=== PATIENT | male | born 1930 | race Hispanic/Latino ===

== ENCOUNTER 2016-07-28 15:19 | Inpatient (IN) | payer MEDICARE, OTHER ==
[2016-07-28] MEDS ORDERED: Albuterol-Ipratrop 3 mg / 0.5 (3 ml) UD IH STA (15:45)
[2016-07-28] MEDS ORDERED: Albuterol-Ipratrop 3 mg / 0.5 (3 ml) UD ONE (15:46)
--- NOTE | 2016-07-28 15:52 | ED PDOC ---
HPI: SOB/CHF/COPD Time Seen by Provider: 07/28/16 15:34 Chief Complaint (Nursing): Shortness Of Breath Chief Complaint (Provider): Shortness Of Breath History Per: Patient History/Exam Limitations: no limitations Onset/Duration Of Symptoms: Hrs Current Symptoms Are (Timing): Still Present Additional Complaint(s): 86 y/o male with a past medical history of aortic stenosis presents to the emergency department after referred by PMD for dyspnea on exertion. Patient states he is only able to walk 2 blocks before he experiences difficulty breathing. Denies fever, cough, and chest pain. Of note, patient is being evaluated for arotic valve replacement surgery. PMD: Dr. Torrey Branch MD Service Center Technician: Dr. Kimo Santos MD Past Medical History Reviewed: Historical Data, Nursing Documentation, Vital Signs Vital Signs: Last Vital Signs Temp 97.7 F 07/28/16 15:36 Pulse 111 H 07/28/16 15:36 Resp 20 07/28/16 15:42 BP 123/64 07/28/16 16:03 Pulse Ox 90 L 07/28/16 16:00 - Medical History PMH: HTN Other PMH: Arotic Stenosis - Surgical History Surgical History: No Surg Hx - Family History Family History: States: Unknown Family Hx - Social History Current smoker - smoking cessation education provided: No Ex-Smoker (has not smoked in the last 12 months): Yes Alcohol: None Drugs: Denies - Immunization History Hx Tetanus Toxoid Vaccination: No Hx Influenza Vaccination: No Hx Pneumococcal Vaccination: No - Allergies Allergies/Adverse Reactions: Allergies Allergy/AdvReac Type Severity Reaction Status Date / Time No Known Allergies Allergy Verified 07/28/16 15:35 Review of Systems ROS Statement: Except As Marked, All Systems Reviewed And Found Negative Constitutional: Negative for: Fever Cardiovascular: Positive for: Other (Dyspnea on exertion). Negative for: Chest Pain Respiratory: Positive for: Shortness of Breath. Negative for: Cough Physical Exam - Reviewed Nursing Documentation Reviewed: Yes Vital Signs Reviewed: Yes - Physical Exam Appears: Positive for: Non-toxic, In Acute Distress ( Mild) Skin: Positive for: Normal Color, Warm, Dry Cardiovascular/Chest: Positive for: Murmur (2/6 systolic murmur radiating to back with with regular rate and rhythm) Respiratory: Positive for: Rales (rales at bases bilaterally ), Wheezing (mild end-expiratory wheeze). Negative for: Accessory Muscle Use, Respiratory Distress Gastrointestinal/Abdominal: Positive for: Normal Exam, Soft. Negative for: Tenderness Extremity: Positive for: Pedal Edema (1+ pedal edema bilaterally) Neurologic/Psych: Positive for: Alert, Oriented - Laboratory Results Result Diagrams: 07/28/16 15:45 07/28/16 15:45 - ECG O2 Sat by Pulse Oximetry: 90 (RA) Pulse Ox Interpretation: Normal Medical Decision Making Medical Decision Making: Time: 15:34 Initial impression: Dyspnea Initial plan: --Electrocardiogram Stat --B-type Natriuretic Peptide --COMP Metabolic Panel --Troponin I Stat --EKG-ED (EDNURTX) --CBC w/ differential --Chest Portable (RAD) --Duoneb 3 mL IH --Lasix 40 mg IVP --Peak Flow Pre/Post TX --Revaluation Scribe Attestation: Documented by Shayna Marti, acting as a scribe for Mika Toledo MD. Provider Scribe Attestation: All medical record entries made by the Scribe were at my direction and personally dictated by me. I have reviewed the chart and agree that the record accurately reflects my personal performance of the history, physical exam, medical decision making, and the department course for this patient. I have also personally directed, reviewed, and agree with the discharge instructions and disposition. Disposition - Clinical Impression Clinical Impression: Aortic stenosis - Patient ED Disposition Is Patient to be Admitted: Transfer of Care - Disposition Disposition: Transfer of Care Disposition Time: 17:05 Condition: FAIR Patient Signed Over To: Stephanie Rangel
[2016-07-28 16:03] LABS: BASO # 0.1 K/uL (0.0-0.2); BASO % 0.6 % (0.0-2.0); HEMATOCRIT 44.9 % (35.0-51.0); LYMPH # 0.6 K/uL (1.0-4.3); MEAN CELL VOLUME 103.1 fl (80.0-94.0); MEAN PLATELET VOLUME 8.5 fl (7.2-11.7); MONO # 0.2 K/uL (0.0-0.8); MONO % 1.8 % (0.0-10.0); NEUT # 10.7 K/uL (1.8-7.0); NEUT % 92.6 % (50.0-75.0); NRBC % 0.1 % (0.0-0.0); PLATELET COUNT 178 K/uL (130-400); WHITE BLOOD COUNT 11.6 K/uL (4.8-10.8)
[2016-07-28 16:15] LABS: ALKALINE PHOSPHATASE 82 U/L (38-126); ALT/SGPT 75 U/L (21-72); AST/SGOT 66 U/L (17-59); BILIRUBIN,TOTAL 0.7 mg/dl (0.2-1.3); BLOOD UREA NITROGEN 31 mg/dl (9-20); CALCIUM 9.4 mg/dL (8.4-10.2); CARBON DIOXIDE 26 mmol/L (22-30); CHLORIDE 101 mmol/L (98-107); GFR AFRICAN-AMERICAN > 60; GLUCOSE,RANDOM 303 mg/dL (75-110); SODIUM 141 mmol/l (132-148)
--- NOTE | 2016-07-28 16:54 | RAD ---
HISTORY: cough COMPARISON: Comparison is made to the previous study dated 06/18/2013 FINDINGS: LUNGS: No significant interval change in the lungs noted. Prominent lung markings are again seen. PLEURA: No significant pleural effusion identified, no pneumothorax apparent. CARDIOVASCULAR: The cardiac silhouette is enlarged. OSSEOUS STRUCTURES: No significant abnormalities. VISUALIZED UPPER ABDOMEN: Normal. OTHER FINDINGS: None. IMPRESSION: No radiographic evidence of pneumonia.
[2016-07-28 17:18] LABS: NEUTROPHIL 94 % (42-75); TOTAL CELLS COUNTED 100
[2016-07-28 17:21] LABS: LARGE PLATELETS PRESENT; SPHEROCYTES MODERATE
--- NOTE | 2016-07-28 17:42 | ED PDOC ---
- Laboratory Results Result Diagrams: 07/28/16 15:45 07/28/16 15:45 - ECG O2 Sat by Pulse Oximetry: 90 (RA) Medical Decision Making Medical Decision Making: Time: 1700 Patient signed out by by Dr. Toledo pending call from Dr. Santos for possible transfer to [place] for severe aortic stenosis. Per Dr Toledo, Dr Santos d/w him at 4p that he would discuss case with specialist at [place]. Pending call back for disposition. 1800 Dr Santos pagedeni concerning transfer of patient 183 [address] from office of Dr Herrera CT surgery. Requesting facesheet for possible transfer to [place]. 1999 Pending [place] bed. Pt stable at this time. Exam unchanged. Pt comfortable. 2100 Per [place] pt can not be transferred until case reviewed by hospital's case management, which will be tomorrow. Paged Dr Branch PMD and Dr Santos Cardiology. [address] Santos Cardiology and Dr Branch PMD, who requests inpatient consult with Dr Dickens as well. Scribe Attestation: Documented by Lisbeth Gomez acting as a scribe for Stephanie Rangel MD. Scribe Attestation: All medical record entries made by the Scribe were at my direction and personally dictated by me. I have reviewed the chart and agree that the record accurately reflects my personal performance of the history, physical exam, medical decision making, and the department course for this patient. I have also personally directed, reviewed, and agree with the discharge instructions and disposition. Disposition - Clinical Impression Clinical Impression: Aortic stenosis - POA Present On Arrival: None - Disposition Disposition: Admitted as In-Patient Disposition Time: 21:00 Condition: FAIR
[2016-07-28] MEDS ORDERED: Albuterol-Ipratrop 3 mg / 0.5 (3 ml) UD INH PRN (23:57)
--- NOTE | 2016-07-29 07:18 | CARD ---
APPROVED REPORT EKG Measurement Heart [id number] <Conclusion> Sinus tachycardia Cannot rule out Anterior infarct, age undetermined Abnormal ECG
[2016-07-29] MEDS ORDERED: Fluticasone-Salmeterol 500-50mcg Diskus IH SCH (09:00)
[2016-07-29] MEDS ORDERED: Albuterol 0.083% Inhal Sol (2.5 mg/3 mL) UD INH PRN (10:22)
--- NOTE | 2016-07-29 10:22 | CARD ---
APPROVED REPORT EKG Measurement Heart [id number] <Conclusion> Normal sinus rhythm Normal ECG
--- NOTE | 2016-07-29 10:38 | CP.PCM.CON ---
History of Present Illness - History of Present Illness History of Present Illness: This 86 year old male with aortic valve disease was admitted to hospital with shortness of breath. He does have a long smoking history, and stopped only one month ago. He denies any history of pneumonia or asthma and has never needed any inhalers for breathing related illness. 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 He has a relative low SpO2 since admission and becomes dyspneic with minimal exertion. His chest x-ray shows some increased broncho-vascular markings, but nothing more (poor inspiratory portable film). He denies chest pain or hemoptysis. there is no prior history of DVT or PE. Past Patient History - Past Medical History & Family History Past Medical History?: Yes - Past Social History Smoking Status: Former Smoker Chewing Tobacco Use: No Cigar Use: No Alcohol: Social Drugs: Denies Home Situation {Lives}: With Family - CARDIAC Hx Cardiac Disorders: Yes Hx Hypertension: Yes Other/Comment: aortic stenosis - PULMONARY Hx Respiratory Disorders: No - NEUROLOGICAL Hx Neurological Disorder: No - HEENT Hx HEENT Problems: No - RENAL Hx Chronic Kidney Disease: No - ENDOCRINE/METABOLIC Hx Endocrine Disorders: No - HEMATOLOGICAL/ONCOLOGICAL Hx Blood Disorders: No - INTEGUMENTARY Hx Dermatological Problems: No - MUSCULOSKELETAL/RHEUMATOLOGICAL Hx Falls: No Hx Gout: Yes - GASTROINTESTINAL Hx Gastrointestinal Disorders: No - GENITOURINARY/GYNECOLOGICAL Hx Genitourinary Disorders: No - PSYCHIATRIC Hx Psychophysiologic Disorder: No Hx Substance Use: No - SURGICAL HISTORY Hx Surgeries: No - ANESTHESIA Hx Anesthesia: No Meds Allergies/Adverse Reactions: Allergies Allergy/AdvReac Type Severity Reaction Status Date / Time No Known Allergies Allergy Verified 07/28/16 15:35 - Medications Medications: Current Medications Albuterol Sulfate (Albuterol 0.083% Inhal Olivia (2.5 Mg/3 Ml) Ud) 2.5 mg INH RQ4 PRN PRN Reason: Shortness of Breath Allopurinol (Zyloprim) 100 mg PO DAILY [facility] Last Admin: 07/29/16 08:40 Dose: 100 mg Amlodipine Besylate (Norvasc) 5 mg PO DAILY [facility] Last Admin: 07/29/16 08:40 Dose: 5 mg Enalapril Maleate (Vasotec) 5 mg PO DAILY [facility] Last Admin: 07/29/16 08:40 Dose: 5 mg Fluticasone/Salmeterol (Advair Diskus 500/50) 1 puff IH Q12 [facility] Last Admin: 07/29/16 08:40 Dose: 1 puff Physical Exam - Additional Findings Additional findings: Overweight male lying almost flat in bed. Pharynx is pink and mucous membranes are moist. No exudates. Conjunctivae are pink and non-icteric. Neck is supple and trachea midline. No visible JVD. No palpable lymphadenopathy. No dependant edema, no cyanosis or clubbing. No calf tenderness or palpable venous cords. No dullness on chest percussion, no subcut emphysema. Breath sounds are diminished bilaterally w/o audible wheezing. Few scattered dependant rhonchi and dry rales are noted. No bronchial breath sounds or egophony. Heart sounds are slightly distant, rhythm is regular, loud ANGELA at base radiating to the carotids. Abdomen is obese and non-tender with normal BS. Results - Vital Signs Recent Vital Signs: Last Vital Signs Temp 98.3 F 07/29/16 08:06 Pulse 85 07/29/16 10:00 Resp 18 07/29/16 08:06 BP 157/64 H 07/29/16 08:40 Pulse Ox 94 L 07/29/16 08:06 - Labs Result Diagrams: 07/28/16 15:45 07/28/16 15:45 Labs: Laboratory Results - last 24 hr 07/29/16 05:35 Troponin I 0.0270 Assessment & Plan (1) Hypoxemia Assessment and Plan: Very likely a manifestation of cigarette related lung disease. An ABG has been requested to evaluate the degree of hypoxia. Needs some follow up with PFT and potentially treatment with inhalers. For the present time he is on supplemental oxygen and offers no complaints. He needs to begin incentive spirometry and has been started on nebulizer treatments. Status: Acute Priority: High (2) Aortic stenosis Status: Chronic Priority: High - Date & Time Date: 07/29/16 Time: 11:01
[2016-07-29] MEDS ORDERED: Levalbuterol 0.63 MG/3 ML Inhal Soln UD INH PRN (11:08)
[2016-07-29] MEDS: Levalbuterol 0.63 MG/3 ML Inhal Soln UD INH SCH ×3 (12:00→23:42)
[2016-07-29 12:17] LABS: ABG ALLEN TEST YES; ARTERIAL BLOOD FLOW 3; ARTERIAL BLOOD GAS HCO3 31.3 mmol/L (21-28); ARTERIAL BLOOD GAS MODE NC; ARTERIAL BLOOD GAS O2 CAPACITY 19.5 mL/dL (16-24); ARTERIAL BLOOD GAS O2 CONTENT 18.8 ML/dL (15-23); ARTERIAL BLOOD GAS PH 7.43 (7.35-7.45); ARTERIAL BLOOD GAS PO2 65 mm/Hg (80-100); ARTERIAL BLOOD HGB O2 SAT 92.7 % (95.0-98.0); HHB 3.4 % (0.0-5.0); METHEMOGLOBIN 1.9 % (0.0-3.0)
[2016-07-29] MEDS ORDERED: Levalbuterol 0.63 MG/3 ML Inhal Soln UD INH SCH (16:00)
--- NOTE | 2016-07-29 19:25 | CP.PCM.PN ---
Subjective - Date & Time of Evaluation Date of Evaluation: 07/29/16 Time of Evaluation: 22:22 - Subjective Subjective: 86 yo with hx anc COPD admiited for SOB. 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 Objective - Vital Signs/Intake and Output Vital Signs (last 24 hours): Temp Pulse Resp BP Pulse Ox 98.3 F 80 20 119/67 95 07/29/16 18:55 07/29/16 18:55 07/29/16 18:55 07/29/16 18:55 07/29/16 18:55 - Medications Medications: Current Medications Albuterol Sulfate (Albuterol 0.083% Inhal Olivia (2.5 Mg/3 Ml) Ud) 2.5 mg INH RQ4 PRN PRN Reason: Shortness of Breath Allopurinol (Zyloprim) 100 mg PO DAILY [facility] Last Admin: 07/29/16 08:40 Dose: 100 mg Amlodipine Besylate (Norvasc) 5 mg PO DAILY [facility] Last Admin: 07/29/16 08:40 Dose: 5 mg Enalapril Maleate (Vasotec) 5 mg PO DAILY [facility] Last Admin: 07/29/16 08:40 Dose: 5 mg Levalbuterol HCl (Xopenex) 0.63 mg INH RQ4 PRN PRN Reason: Shortness of Breath Levalbuterol HCl (Xopenex) 0.63 mg INH RQ8 [facility] Last Admin: 07/29/16 15:44 Dose: 0.63 mg - Labs Labs: PT 11.5 SECONDS (9.6-11.2) H 07/28/16 16:50 INR 1.11 (0.92-1.08) H 07/28/16 16:50 - Respiratory Exam Respiratory Exam: NORMAL BREATHING PATTERN - Cardiovascular Exam Cardiovascular Exam: REGULAR RHYTHM - GI/Abdominal Exam GI & Abdominal Exam: Normal Bowel Sounds Assessment and Plan - Assessment and Plan (Free Text) Assessment: SOB COPD Cardiology Pulmonary Transfer to [facility]
[2016-07-30] MEDS: Levalbuterol 0.63 MG/3 ML Inhal Soln UD INH SCH ×2 (08:17→16:02)
--- NOTE | 2016-07-30 09:42 | CP.PCM.PN ---
Subjective - Date & Time of Evaluation Date of Evaluation: 07/30/16 Time of Evaluation: 09:37 - Subjective Subjective: Remains in tele, awaiting a bed at [facility]. Offers no new complaints. Has continued MORALES, but able to use bedside cammode without difficulty. ABG yesterday shows moderate hypoxemia and mild hypercapnia. Presently on levalbuterol (low dose) and will not add other medications prior to potential cardiac surgery. No audible wheezing , few sonorous rhonchi, diminished breath sounds bilaterally. No cyanosis or dependant edema. Will need PFT and likely LABA/LAMA afterwards. Incentive spirometry requested. Objective - Vital Signs/Intake and Output Vital Signs (last 24 hours): Temp Pulse Resp BP Pulse Ox 98.1 F 76 20 143/77 95 07/30/16 08:25 07/30/16 08:34 07/30/16 08:25 07/30/16 08:34 07/30/16 08:25 - Medications Medications: Current Medications Allopurinol (Zyloprim) 100 mg PO DAILY [facility] Last Admin: 07/30/16 08:34 Dose: 100 mg Amlodipine Besylate (Norvasc) 5 mg PO DAILY [facility] Last Admin: 07/30/16 08:34 Dose: 5 mg Enalapril Maleate (Vasotec) 5 mg PO DAILY [facility] Last Admin: 07/30/16 08:34 Dose: 5 mg Levalbuterol HCl (Xopenex) 0.63 mg INH RQ4 PRN PRN Reason: Shortness of Breath Levalbuterol HCl (Xopenex) 0.63 mg INH RQ8 [facility] Last Admin: 07/30/16 08:17 Dose: 0.63 mg - Labs Labs: PT 11.5 SECONDS (9.6-11.2) H 07/28/16 16:50 INR 1.11 (0.92-1.08) H 07/28/16 16:50 Assessment and Plan (1) Hypoxemia Status: Acute (2) Aortic stenosis Status: Chronic
--- NOTE | 2016-07-30 15:23 | PQF GENQUE ---
Dr. Bunny Joseph, COPD Exacerbation versus Stable? OR: Other explanation of clinical finding H and P: pending ER note: Respiratory: Positive for: Rales (rales at bases bilaterally ), Wheezing (mild end expiratory wheeze). 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 Needs some follow up with PFT and potentially treatment with inhalers. For the present time he is on supplemental oxygen to begin incentive spirometry ;started on nebulizer treatments. Status: Acute Priority: High (2) Aortic stenosis Status: Chronic Priority: High /: Pulmonary progress note note:Has continued MORALES, but able to use bedside commode without difficulty. ABG yesterday shows moderate hypoxemia and mild hypercapnia. This form is a permanent part of the medical record Clarification of your documentation is requested to better reflect the severity of illness and intensity of treatment of your patient. Indicators present [] Specify: [] [] Specify: [] [] Specify: [] [] Specify: [] Location in the medical record that reflects the above clinical findings: [] Treatment Provided: [] PHYSICIAN'S RESPONSE Based on your medical judgment of the clinical indicators outlined above please clarify the following: [] Practitioner response [] If unable to determine, please check the box, sign and date. Present On Admission (POA) Indicator: [] Present at the time of admission [] Not present at the time of admission [] Clinically Undetermined In responding to this query, please exercise your independent professional judgment. The fact that a question is asked does not imply that any particular answer is desired or expected. Thank you for your clarification on this documentation. If you have any questions please call:[ ] * Thank you, [ ] mobility architect manager CALLI
--- NOTE | 2016-07-30 18:41 | CP.PCM.PN ---
Subjective - Date & Time of Evaluation Date of Evaluation: 07/30/16 Time of Evaluation: 22:22 - Subjective Subjective: Above noted Objective - Vital Signs/Intake and Output Vital Signs (last 24 hours): Temp Pulse Resp BP Pulse Ox 98.0 F 63 20 142/70 95 07/30/16 15:50 07/30/16 15:50 07/30/16 15:50 07/30/16 15:50 07/30/16 15:50 - Medications Medications: Current Medications Allopurinol (Zyloprim) 100 mg PO DAILY [facility] Last Admin: 07/30/16 08:34 Dose: 100 mg Amlodipine Besylate (Norvasc) 5 mg PO DAILY [facility] Last Admin: 07/30/16 08:34 Dose: 5 mg Enalapril Maleate (Vasotec) 5 mg PO DAILY [facility] Last Admin: 07/30/16 08:34 Dose: 5 mg Levalbuterol HCl (Xopenex) 0.63 mg INH RQ4 PRN PRN Reason: Shortness of Breath Levalbuterol HCl (Xopenex) 0.63 mg INH RQ8 [facility] Last Admin: 07/30/16 16:02 Dose: 0.63 mg - Labs Labs: PT 11.5 SECONDS (9.6-11.2) H 07/28/16 16:50 INR 1.11 (0.92-1.08) H 07/28/16 16:50 - Respiratory Exam Respiratory Exam: NORMAL BREATHING PATTERN - Cardiovascular Exam Cardiovascular Exam: REGULAR RHYTHM - GI/Abdominal Exam GI & Abdominal Exam: Normal Bowel Sounds Assessment and Plan - Assessment and Plan (Free Text) Assessment: SOB Aortic Stenosis COPD Cardiology Pulmonary Transfer to [facility] Elevated LFT,s MCV Liver dx??
[2016-07-30 19:49] VITALS: BP 144/70; PULSE 71; RESP 18; TEMP 97.9; O2SAT 94
[2016-07-30 20:35] VITALS: BMI 31.7
--- NOTE | 2016-08-19 19:44 | CP.PCM.HP ---
History of Present Illness - History of Present Illness History of Present Illness: 86 yo with hx of COPD and severe admitted for SOB Present on Admission - Present on Admission Any Indicators Present on Admission: No Past Patient History - Past Medical History & Family History Past Medical History?: Yes - Past Social History Smoking Status: Former Smoker Chewing Tobacco Use: No Cigar Use: No Alcohol: Social Drugs: Denies Home Situation {Lives}: With Family - CARDIAC Hx Cardiac Disorders: Yes Hx Hypertension: Yes Other/Comment: aortic stenosis - PULMONARY Hx Respiratory Disorders: No - NEUROLOGICAL Hx Neurological Disorder: No - HEENT Hx HEENT Problems: No - RENAL Hx Chronic Kidney Disease: No - ENDOCRINE/METABOLIC Hx Endocrine Disorders: No - HEMATOLOGICAL/ONCOLOGICAL Hx Blood Disorders: No - INTEGUMENTARY Hx Dermatological Problems: No - MUSCULOSKELETAL/RHEUMATOLOGICAL Hx Falls: No Hx Gout: Yes - GASTROINTESTINAL Hx Gastrointestinal Disorders: No - GENITOURINARY/GYNECOLOGICAL Hx Genitourinary Disorders: No - PSYCHIATRIC Hx Psychophysiologic Disorder: No Hx Substance Use: No - SURGICAL HISTORY Hx Surgeries: No - ANESTHESIA Hx Anesthesia: No Meds Allergies/Adverse Reactions: Allergies Allergy/AdvReac Type Severity Reaction Status Date / Time No Known Allergies Allergy Verified 07/28/16 15:35 Physical Exam - Respiratory Exam Respiratory Exam: NORMAL BREATHING PATTERN - Cardiovascular Exam Cardiovascular Exam: REGULAR RHYTHM - GI/Abdominal Exam GI & Abdominal Exam: Normal Bowel Sounds Results - Vital Signs Recent Vital Signs: Last Vital Signs Temp 97.9 F 07/30/16 19:48 Pulse 71 07/30/16 19:48 Resp 18 07/30/16 19:48 BP 144/70 07/30/16 19:48 Pulse Ox 94 L 07/30/16 19:48 - Labs Result Diagrams: 07/28/16 15:45 07/28/16 15:45 Assessment & Plan - Assessment and Plan (Free Text) Assessment: SOB COPD Cardiology Pulmonary Transfer to [facility] - Date & Time Date: 07/29/16 Time: 22:22
== END 2016-07-30 21:25 | disposition short-term general hospital (02) | DRG 307 ==
LOC: H.ER 15:19 → H.ERHOLD 21:11 → H.TEL 23:07
PROVIDERS: ADMIT Family Medicine Geriatric Medicine; ATTEND Family Medicine Geriatric Medicine
DX: I35.0 Nonrheumatic aortic (valve) stenosis (principal); J44.1 Chronic obstructive pulmonary disease with (acute) exacerbation; I10 Essential (primary) hypertension; R09.02 Hypoxemia; R79.89 Other specified abnormal findings of blood chemistry; Z87.891 Personal history of nicotine dependence; Z77.090 Contact with and (suspected) exposure to asbestos

== ENCOUNTER 2017-04-27 10:00 | Inpatient (IN) | payer MEDICARE, OTHER ==
[2017-04-27 10:02] VITALS: BMI 30.9
--- NOTE | 2017-04-27 10:56 | ED PDOC ---
Lower Extremity Pain/Injury Time Seen by Provider: 04/27/17 10:54 Chief Complaint (Nursing): Lower Extremity Problem/Injury Chief Complaint (Provider): leg pain History Per: Patient (87 y/o male here with bilateral lower extremity tenderness x 2 months worse with walking and lifting feet up. Patient states he has to sleep in chair due to pain. Seen by PMD Dr. Joseph. Sent to physical therapy without improvemnet. Requests medication for pain.) Past Medical History Reviewed: Historical Data, Nursing Documentation, Vital Signs Vital Signs: Last Vital Signs Temp 97.9 F 04/27/17 10:02 Pulse 90 04/27/17 10:02 Resp 17 04/27/17 10:02 BP 126/56 L 04/27/17 10:02 Pulse Ox 96 04/27/17 10:02 - Medical History PMH: HTN Denies: Chronic Kidney Disease - Family History Family History: States: Unknown Family Hx - Immunization History Hx Tetanus Toxoid Vaccination: No Hx Influenza Vaccination: No Hx Pneumococcal Vaccination: No - Home Medications Home Medications: Ambulatory Orders Medication Instructions Recorded Enalapril Maleate [Vasotec] 5 mg PO DAILY 07/28/16 Allopurinol [Zyloprim] 300 mg PO DAILY 04/27/17 Aspirin [Ecotrin] 81 mg PO DAILY 04/27/17 Atorvastatin [Lipitor] 20 mg PO QPM 04/27/17 Furosemide [Lasix] 20 mg PO DAILY 04/27/17 Metoprolol Tartrate [Lopressor] 25 mg PO Q12H 04/27/17 amLODIPine [Norvasc] 10 mg PO DAILY 04/27/17 - Allergies Allergies/Adverse Reactions: Allergies Allergy/AdvReac Type Severity Reaction Status Date / Time No Known Allergies Allergy Verified 07/28/16 15:35 Review of Systems ROS Statement: Except As Marked, All Systems Reviewed And Found Negative Physical Exam - Reviewed Nursing Documentation Reviewed: Yes Vital Signs Reviewed: Yes - Physical Exam Appears: Positive for: Well, Non-toxic, No Acute Distress Head Exam: Positive for: ATRAUMATIC, NORMAL INSPECTION, NORMOCEPHALIC Skin: Positive for: Normal Color, Warm, DRY Eye Exam: Positive for: EOMI, Normal appearance, PERRL ENT: Positive for: Normal ENT Inspection Neck: Positive for: Normal, Painless ROM Cardiovascular/Chest: Positive for: Regular Rate, Rhythm Respiratory: Positive for: CNT, Normal Breath Sounds Gastrointestinal/Abdominal: Positive for: Normal Exam, Bowel Sounds, Soft Back: Positive for: Normal Inspection Extremity: Positive for: Normal ROM, Other (warm lower extremity. 1+ DP bilaterally noted.) Neurologic/Psych: Positive for: Alert, Oriented - Laboratory Results Result Diagrams: 04/27/17 14:10 04/27/17 14:10 - ECG ECG Rhythm: Positive for: Sinus Rhythm (nsr 97bpm wiht 1st deg AV block; LBBB new compared to old EKG on file.) O2 Sat by Pulse Oximetry: 96 - Progress ED Course And Treament: D/W DR. JOSEPH. DUPLEX WNL ARTERIAL DOPPLER OBTAINED: PENDING SEEN BY DR. SOTCK. WILL OBTAIN EKG/CXR/BLOODWORK FOR EVALUATION OF LOWER EXTREMITY EDEMA cxr: nad EKG discussed wiht Dr. Santos who states patient has old EKG in his office with LBBB noted. d/w Dr. Joseph Will admit for further evaluation of leukocytosis and intractable leg pain Disposition - Clinical Impression Clinical Impression: Leg pain, Leukocytosis - Patient ED Disposition Is Patient to be Admitted: Yes - Disposition Disposition Time: 16:32 Condition: FAIR Forms: [employer] ([place]ian) - Pt Status Changed To: Hospital Disposition Of: Observation
--- NOTE | 2017-04-27 12:02 | US ---
PROCEDURE: Bilateral lower extremity venous duplex Doppler. HISTORY: r/o dvt COMPARISON: None available. TECHNIQUE: Bilateral common femoral, superficial femoral, popliteal and posterior tibial veins were evaluated. Flow was assessed with color Doppler, compressibility, assessment of phasic flow and augmentation response. FINDINGS: COMMON FEMORAL VEIN: Right CFV: Unremarkable. Left CFV: Unremarkable. SUPERFICIAL FEMORAL VEIN: Right SFV: Unremarkable. Left SFV: Unremarkable. POPLITEAL VEIN: Right Popliteal: Unremarkable. Left Popliteal: Unremarkable. POSTERIOR TIBIAL VEIN: Right PTV: Unremarkable. Left PTV: Unremarkable. OTHER FINDINGS: None. IMPRESSION: No evidence of deep venous thrombosis.
[2017-04-27 14:14] LABS: BASO # 0.1 K/uL (0.0-0.2); BASO % 0.8 % (0.0-2.0); EOS # 0.1 K/uL (0.0-0.7); EOS % 0.9 % (0.0-4.0); HEMOGLOBIN 14.2 g/dL (12.0-18.0); LYMPH # 2.2 K/uL (1.0-4.3); LYMPH % 14.5 % (20.0-40.0); MEAN CELL VOLUME 99.7 fl (80.0-94.0); MEAN CORPUSCULAR HEMOGLOBIN 33.3 pg (27.0-31.0); MEAN CORPUSCULAR HGB CONC 33.4 g/dL (33.0-37.0); MEAN PLATELET VOLUME 7.7 fl (7.2-11.7); MONO # 1.9 K/uL (0.0-0.8); MONO % 12.2 % (0.0-10.0); NEUT # 11.1 K/uL (1.8-7.0); NEUT % 71.6 % (50.0-75.0); NRBC % 0.1 % (0.0-0.0); RBC 4.27 Mil/uL (4.40-5.90); RED CELL DISTRIBUTION WIDTH 14.5 % (11.5-14.5); WHITE BLOOD COUNT 15.5 K/uL (4.8-10.8)
[2017-04-27 14:45] LABS: ALB/GLOB RATIO 1.3 (1.0-2.1); ALBUMIN 4.9 g/dL (3.5-5.0); ALT/SGPT 27 U/L (21-72); AST/SGOT 37 U/L (17-59); BLOOD UREA NITROGEN 18 mg/dl (9-20); CALCIUM 9.8 mg/dL (8.4-10.2); GFR AFRICAN-AMERICAN > 60; GFR NON-AFRICAN AMERICAN > 60
[2017-04-27 14:56] LABS: B-TYPE NATRIURETIC PEPTIDE 163 pg/ml (0-900)
--- NOTE | 2017-04-27 15:15 | RAD ---
HISTORY: ROUTINE COMPARISON: 07/28/2016. FINDINGS: LUNGS: No active pulmonary disease. PLEURA: No significant pleural effusion identified, no pneumothorax apparent. CARDIOVASCULAR: Cardiomegaly. No evidence of acute, significant cardiovascular disease. OSSEOUS STRUCTURES: No significant abnormalities. VISUALIZED UPPER ABDOMEN: Normal. OTHER FINDINGS: None. IMPRESSION: No active disease. No significant interval change compared to the prior examination(s).
--- NOTE | 2017-04-27 16:00 | VASCLAB ---
STUDY DESCRIPTION: HISTORY: intermittent claudication PRIORS: None. TECHNIQUE: Pulse volume recording waveforms and segmental pressures of bilateral lower extremities at multiple levels were obtained. Ankle Brachial Indices (ABIs) were calculated. Report prepared by Gunnar Clark RDMS,STONE,CANDIDO ROCHA RIGHT LOWER EXTREMITY: * Brachial artery: Pressure - 126 mmHg. * High thigh: Pressure - 166 mmHg: Ratio - 1.30: PVR waveform - Pulsatile * Low thigh: Pressure - mmHg: Ratio - PVR waveform: Pulsatile * Calf: Pressure - 213 mmHg: Ratio - 1.66 PVR waveform: Pulsatile * Posterior tibial Artery: Pressure - 222 mmHg: Ratio - 1.73 PVR waveform: Pulsatile * Dorsalis pedis Artery: Pressure - 184 mmHg: Ratio - 1.44 PVR waveform: Pulsatile * Great toe: Pressure - mmHg: Ratio - PVR waveform: Pulsatile Ankle brachial index (PAGE): 1.73 LEFT LOWER EXTREMITY: * Brachial artery: Pressure - 128 mmHg. * High thigh: Pressure - 163 mmHg: Ratio - 1.27: PVR waveform - Pulsatile * Low thigh: Pressure - mmHg: Ratio - PVR waveform: Pulsatile * Calf: Pressure - 210 mmHg: Ratio - 1.64 PVR waveform: Pulsatile * Posterior tibial Artery: Pressure - 236 mmHg: Ratio - 1.84 PVR waveform: Pulsatile * Dorsalis pedis Artery: Pressure - 223 mmHg: Ratio - 1.74 PVR waveform: Pulsatile * Great toe: Pressure - mmHg: Ratio - PVR waveform: Pulsatile Ankle brachial index (PAGE): 1.84 IMPRESSION: Elevated pressures bilaterally render ABIs unreliable.
--- NOTE | 2017-04-27 20:39 | CP.PCM.PN ---
Subjective - Date & Time of Evaluation Date of Evaluation: 04/27/17 Time of Evaluation: 22:22 - Subjective Subjective: 87 yo presented to ER with low ext pain Objective - Vital Signs/Intake and Output Vital Signs (last 24 hours): Temp Pulse Resp BP Pulse Ox 98.2 F 96 H 18 122/66 96 04/27/17 19:07 04/27/17 19:07 04/27/17 19:07 04/27/17 19:07 04/27/17 19:07 - Labs Labs: 04/27/17 14:10 04/27/17 14:10 - Respiratory Exam Respiratory Exam: NORMAL BREATHING PATTERN - Cardiovascular Exam Cardiovascular Exam: REGULAR RHYTHM - GI/Abdominal Exam GI & Abdominal Exam: Normal Bowel Sounds Assessment and Plan - Assessment and Plan (Free Text) Assessment: Low ext pain venous doppler
[2017-04-27] MEDS ORDERED: Enoxaparin 60 mg Syringe SC ONE (22:36)
[2017-04-28] MEDS ORDERED: Albuterol-Ipratrop 3 mg / 0.5 (3 ml) UD INH STA (00:53)
[2017-04-28 05:47] LABS: BASO # 0.1 K/uL (0.0-0.2); BASO % 0.8 % (0.0-2.0); EOS # 0.1 K/uL (0.0-0.7); EOS % 0.6 % (0.0-4.0); LYMPH # 1.7 K/uL (1.0-4.3); LYMPH % 10.9 % (20.0-40.0); MEAN CELL VOLUME 100.5 fl (80.0-94.0); MEAN CORPUSCULAR HEMOGLOBIN 33.2 pg (27.0-31.0); MEAN CORPUSCULAR HGB CONC 33.1 g/dL (33.0-37.0); MONO # 2.3 K/uL (0.0-0.8); MONO % 14.5 % (0.0-10.0); NEUT # 11.6 K/uL (1.8-7.0); NEUT % 73.2 % (50.0-75.0); NRBC % 0.1 % (0.0-0.0); RBC 3.92 Mil/uL (4.40-5.90); RED CELL DISTRIBUTION WIDTH 14.5 % (11.5-14.5); WHITE BLOOD COUNT 15.8 K/uL (4.8-10.8)
[2017-04-28 05:55] LABS: BLOOD UREA NITROGEN 17 mg/dl (9-20); CALCIUM 9.2 mg/dL (8.4-10.2); GFR AFRICAN-AMERICAN > 60; GFR NON-AFRICAN AMERICAN > 60
[2017-04-28] MEDS ORDERED: Sodium Chloride 3% for Inhalation 4 ML VIAL.NEB IH PRN (06:40)
[2017-04-28] MEDS ORDERED: Albuterol-Ipratrop 3 mg / 0.5 (3 ml) UD INH PRN (07:27)
--- NOTE | 2017-04-28 08:41 | CARD ---
APPROVED REPORT EKG Measurement Heart [id number] <Conclusion> Sinus rhythm with 1st degree AV block Left bundle branch block Abnormal ECG
--- NOTE | 2017-04-28 11:16 | CP.PCM.CON ---
History of Present Illness - History of Present Illness History of Present Illness: This 87 year old [place] male was admitted because of painful swelling of both lower extremities. He has also had what seems to be a chronic cough, but he denies any specific prior lung disease. He did smoke heavily for many years and also [place] with exposures to many different types of dust but he denies any dyspnea on exertion PND, chest discomfort or hemoptysis. He denies any prior episode of pneumonia or childhood asthma. The patient states that his lower extremity swelling has been present for approximately 3-4 months. 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 - PULMONARY Hx Respiratory Disorders: No Other/Comment: Ex smoker, quit 2 years ago - NEUROLOGICAL Hx Neurological Disorder: No - HEENT Hx HEENT Problems: No - RENAL Hx Chronic Kidney Disease: No - ENDOCRINE/METABOLIC Hx Endocrine Disorders: No - HEMATOLOGICAL/ONCOLOGICAL Hx Blood Disorders: No - INTEGUMENTARY Hx Dermatological Problems: No - MUSCULOSKELETAL/RHEUMATOLOGICAL Hx Falls: No Hx Gout: Yes - GASTROINTESTINAL Hx Gastrointestinal Disorders: No - GENITOURINARY/GYNECOLOGICAL Hx Genitourinary Disorders: No - PSYCHIATRIC Hx Psychophysiologic Disorder: No Hx Substance Use: No - SURGICAL HISTORY Hx Surgeries: No - ANESTHESIA Hx Anesthesia: No Meds Allergies/Adverse Reactions: Allergies Allergy/AdvReac Type Severity Reaction Status Date / Time No Known Allergies Allergy Verified 07/28/16 15:35 - Medications Medications: Current Medications Acetaminophen (Tylenol 325mg Tab) 650 mg PO Q6 PRN PRN Reason: Pain, Mild (1-3) Albuterol/Ipratropium (Duoneb 3 Mg/0.5 Mg (3 Ml) Ud) 3 ml INH RQ4 PRN PRN Reason: Shortness of Breath Allopurinol (Zyloprim) 300 mg PO DAILY [facility] Last Admin: 04/28/17 09:50 Dose: 300 mg Amlodipine Besylate (Norvasc) 10 mg PO DAILY [facility] Last Admin: 04/28/17 09:51 Dose: 10 mg Aspirin (Ecotrin) 81 mg PO DAILY [facility] Last Admin: 04/28/17 09:51 Dose: 81 mg Atorvastatin Calcium (Lipitor) 20 mg PO QPM [facility] Enalapril Maleate (Vasotec) 5 mg PO DAILY [facility] Last Admin: 04/28/17 09:52 Dose: 5 mg Enoxaparin Sodium (Lovenox) 40 mg SC DAILY [facility] PRN Reason: Protocol Furosemide (Lasix) 20 mg PO DAILY [facility] Last Admin: 04/28/17 09:51 Dose: 20 mg Metoprolol Tartrate (Lopressor) 25 mg PO Q12H [facility] Last Admin: 04/28/17 00:15 Dose: 25 mg Tramadol HCl (Ultram) 50 mg PO BID PRN PRN Reason: Pain, moderate (4-7) Last Admin: 04/27/17 23:18 Dose: 50 mg Physical Exam - Additional Findings Additional findings: Elderly, overweight male who appears to be in no acute distress. He is complaining of painful swelling of both lower extremities. There is noted to be some chronic hyperpigmentation of both lower extremities from mid calf to ankle. 2+ edema which is painful on compression of both lower extremities again from mid calf to the ankle. No increased warmth. Moderate erythema bilaterally of lower extremities. No palpable lymphadenopathy. Congested, nonproductive cough is noted during the examination. The neck is supple and trachea is midline. No visible neck vein distention. Carotid impulse appears normal and there is no bruit. No palpable thyromegaly. Pharynx is pink and mucous membranes are moist. No exudate. No dullness on chest percussion. Equal expansion. Breath sounds are diminished bilaterally. Sonorous rhonchi are heard in dependent regions of both lungs. No audible wheezing. Rare dry rales are heard in the lower lobes. Heart sounds are distant. Rhythm is regular. The abdomen is soft and nontender. Bowel sounds. Results - Vital Signs Recent Vital Signs: Last Vital Signs Temp 98.5 F 04/28/17 07:55 Pulse 77 04/28/17 09:51 Resp 18 04/28/17 07:55 BP 129/69 04/28/17 09:51 Pulse Ox 95 04/28/17 07:55 - Labs Result Diagrams: 04/30/17 05:00 04/30/17 05:00 Labs: Laboratory Results - last 24 hr 04/27/17 04/27/17 04/28/17 14:10 14:10 04:25 WBC 15.5 H D 15.8 H RBC 4.27 L 3.92 L Hgb 14.2 13.0 Hct 42.5 39.4 MCV 99.7 H D 100.5 H MCH 33.3 H 33.2 H MCHC 33.4 33.1 RDW 14.5 14.5 Plt Count 165 154 MPV 7.7 8.0 Neut % (Auto) 71.6 73.2 Lymph % (Auto) 14.5 L 10.9 L [place] % (Auto) 12.2 H 14.5 H Eos % (Auto) 0.9 0.6 Baso % (Auto) 0.8 0.8 Neut # 11.1 H 11.6 H Lymph # 2.2 1.7 [place] # 1.9 H 2.3 H Eos # 0.1 0.1 Baso # 0.1 0.1 Sodium 132 Potassium 4.3 Chloride 91 L Carbon Dioxide 25 Anion Gap 20 BUN 18 Creatinine 0.7 L Est GFR ( Amer) > 60 Est GFR (Non-Af Amer) > 60 Random Glucose 112 H Calcium 9.8 Total Bilirubin 1.2 AST 37 ALT 27 Alkaline Phosphatase 81 Troponin I 0.0140 NT-Pro-B Natriuret Pep 163 Total Protein 8.8 H Albumin 4.9 Globulin 3.8 Albumin/Globulin Ratio 1.3 04/28/17 04:25 WBC RBC Hgb Hct MCV MCH MCHC RDW Plt Count MPV Neut % (Auto) Lymph % (Auto) [place] % (Auto) Eos % (Auto) Baso % (Auto) Neut # Lymph # [place] # Eos # Baso # Sodium 133 Potassium 4.2 Chloride 93 L Carbon Dioxide 29 Anion Gap 15 BUN 17 Creatinine 0.7 L Est GFR ( Amer) > 60 Est GFR (Non-Af Amer) > 60 Random Glucose 141 H Calcium 9.2 Total Bilirubin AST ALT Alkaline Phosphatase Troponin I NT-Pro-B Natriuret Pep Total Protein Albumin Globulin Albumin/Globulin Ratio Assessment & Plan (1) Leg edema Status: Chronic Priority: High Comment: Bilateral. Etiology unclear at the present time. Pulmonary hypertension with RV overload/failure? (2) Cough Status: Chronic Priority: High Comment: Former heavy tobacco use. May have underlying obstructive lung disease or possibly occult pulmonary emboli. Possibility also of other smoking related lung process as well. - Assessment and Plan (Free Text) Plan: Suggest CT angio of the chest and echocardiogram. If still uncertain V/Q lung scan will be ordered. Pulmonary function study will be requested as well. Continue albuterol/ipratropium via nebulizer for the present time. - Date & Time Date: 04/28/17 Time: 11:16
[2017-04-28] MEDS ORDERED: Albuterol 0.083% Inhal Sol (2.5 mg/3 mL) UD INH PRN (11:35)
--- NOTE | 2017-04-28 12:27 | CP.PCM.CON ---
History of Present Illness - History of Present Illness History of Present Illness: 87 y/o male here with bilateral lower extremity tenderness x 2 months worse with walking and lifting feet up. Patient states he has to sleep in chair due to pain. seen at bedside- legs swollen tender warm sl red Cardio eval in progress + leukocytosis - Medical History PMH: HTN SH- ex smoker Review of Systems - Constitutional Constitutional: As Per HPI - EENT Eyes: absent: As Per HPI, Blind Spots, Blurred Vision, Change in Vision, Decreased Night Vision, Diplopia, Discharge, Dry Eye, Exophthalmos, Floaters, Irritation, Itchy Eyes, Loss of Peripheral Vision, Pain, Photophobia, Requires Corrective Lenses, Sees Flashes, Spots in Vision, Tunnel Vision, Other Visual Disturbances, Loss of Vision, Other Ears: absent: As Per HPI, Decreased Hearing, Ear Discharge, Ear Pain, Tinnitus, Abnormal Hearing, Disequilibrium, Dizziness, Other Nose/Mouth/Throat: absent: As Per HPI, Epistaxis, Nasal Congestion, Nasal Discharge, Nasal Obstruction, Nasal Trauma, Nose Pain, Post Nasal Drip, Sinus Pain, Sinus Pressure, Bleeding Gums, Change in Voice, Dental Pain, Dry Mouth, Dysphagia, Halitosis, Hoarsness, Lip Swelling, Mouth Lesions, Mouth Pain, Odynophagia, Sore Throat, Throat Swelling, Tongue Swelling, Facial Pain, Neck Pain, Neck Mass, Other - Cardiovascular Cardiovascular: As Per HPI - Respiratory Respiratory: As Per HPI, Dyspnea, Dyspnea on Exertion - Gastrointestinal Gastrointestinal: absent: As Per HPI, Abdominal Pain, Belching, Bloating, Change in Bowel Habits, Change in Stool Character, Coffee Ground Emesis, Constipation, Cramping, Diarrhea, Dyspepsia, Dysphagia, Early Satiety, Excessive Flatus, Fecal Incontinence, Heartburn, Hematemesis, Hematochezia, Loose Stools, Melena, Nausea, Odynophagia, Temesmus, Vomiting, Other - Genitourinary Genitourinary: absent: As Per HPI, Change in Urinary Stream, Difficulty Urinating, Dysuria, Flank Pain, Hematuria, Pyuria, Nocturia, Urinary Incontinence, Urinary Frequency, Urinary Hesitance, Urinary Urgency, Voiding Freq/Small Amts, Freq UTI, Hx Renal/Bladder Calculi, Hx /Renal Surgery, Bladder Distension, Other - Musculoskeletal Musculoskeletal: As Per HPI - Integumentary Integumentary: As Per HPI, Skin Pain - Neurological Neurological: absent: As Per HPI, Abnormal Gait, Abnormal Hearing, Abnormal Movements, Abnormal Speech, Behavioral Changes, Burning Sensations, Confusion, Convulsions, Disequilibrium, Dizziness, Numbness, Focal Weakness, Frequent Falls , Headaches, Lack of Coordination, Loss of Vision, Memory Loss, Paresthesias, Radicular Pain, Restless Legs, Sensory Deficit, Syncope, Tingling, Tremor, Vertigo, Weakness, Other Visual Disturbances, Other - Psychiatric Psychiatric: absent: As Per HPI, Abnormal Sleep Pattern, Anhedonia, Anxiety, Auditory Hallucinations, Behavioral Changes, Change in Appetite, Change in Libido, Confusion, Depression, Difficulty Concentrating, Hallucinations, Homicidal Ideation, Hopelessness, Irritability, Memory Loss, Mood Swings, Panic Attacks, Paranoia, Suicidal Ideation, Visual Hallucinations, Tactile Hallucinations, Other Past Patient History - Past Medical History & Family History Past Medical History?: Yes - Past Social History Smoking Status: Former Smoker - CARDIAC Hx Hypertension: Yes Other/Comment: heart valve replacement. - PULMONARY Hx Respiratory Disorders: No Other/Comment: Ex smoker, quit 2 years ago - NEUROLOGICAL Hx Neurological Disorder: No - HEENT Hx HEENT Problems: No - RENAL Hx Chronic Kidney Disease: No - ENDOCRINE/METABOLIC Hx Endocrine Disorders: No - HEMATOLOGICAL/ONCOLOGICAL Hx Blood Disorders: No - INTEGUMENTARY Hx Dermatological Problems: No - MUSCULOSKELETAL/RHEUMATOLOGICAL Hx Falls: No Hx Gout: Yes - GASTROINTESTINAL Hx Gastrointestinal Disorders: No - GENITOURINARY/GYNECOLOGICAL Hx Genitourinary Disorders: No - PSYCHIATRIC Hx Psychophysiologic Disorder: No Hx Substance Use: No - SURGICAL HISTORY Hx Surgeries: No - ANESTHESIA Hx Anesthesia: No Meds Allergies/Adverse Reactions: Allergies Allergy/AdvReac Type Severity Reaction Status Date / Time No Known Allergies Allergy Verified 07/28/16 15:35 - Medications Medications: Current Medications Acetaminophen (Tylenol 325mg Tab) 650 mg PO Q6 PRN PRN Reason: Pain, Mild (1-3) Albuterol Sulfate (Albuterol 0.083% Inhal [place] (2.5 Mg/3 Ml) Ud) 2.5 mg INH RQ4 PRN PRN Reason: Shortness of Breath Albuterol/Ipratropium (Duoneb 3 Mg/0.5 Mg (3 Ml) Ud) 3 ml INH RQID [facility] Allopurinol (Zyloprim) 300 mg PO DAILY [facility] Last Admin: 04/28/17 09:50 Dose: 300 mg Amlodipine Besylate (Norvasc) 10 mg PO DAILY [facility] Last Admin: 04/28/17 09:51 Dose: 10 mg Aspirin (Ecotrin) 81 mg PO DAILY [facility] Last Admin: 04/28/17 09:51 Dose: 81 mg Atorvastatin Calcium (Lipitor) 20 mg PO QPM [facility] Enalapril Maleate (Vasotec) 5 mg PO DAILY [facility] Last Admin: 04/28/17 09:52 Dose: 5 mg Enoxaparin Sodium (Lovenox) 40 mg SC DAILY [facility] PRN Reason: Protocol Furosemide (Lasix) 20 mg PO DAILY [facility] Last Admin: 04/28/17 09:51 Dose: 20 mg Metoprolol Tartrate (Lopressor) 25 mg PO Q12H [facility] Last Admin: 04/28/17 00:15 Dose: 25 mg Tramadol HCl (Ultram) 50 mg PO BID PRN PRN Reason: Pain, moderate (4-7) Last Admin: 04/27/17 23:18 Dose: 50 mg Physical Exam - Constitutional Appears: Non-toxic, Chronically Ill - Head Exam Head Exam: NORMOCEPHALIC - Eye Exam Eye Exam: PERRL - ENT Exam ENT Exam: Mucous Membranes Dry, Normal Oropharynx - Neck Exam Neck exam: Negative for: Lymphadenopathy - Respiratory Exam Respiratory Exam: Decreased Breath Sounds, Rales, Rhonchi - Cardiovascular Exam Cardiovascular Exam: REGULAR RHYTHM - GI/Abdominal Exam GI & Abdominal Exam: Diminished Bowel Sounds, Soft. absent: Tenderness - Rectal Exam Rectal Exam: Deferred - Exam Exam: NORMAL INSPECTION - Extremities Exam Extremities exam: Positive for: pedal edema, tenderness, pedal pulses present. Negative for: calf tenderness - Back Exam Back exam: absent: CVA tenderness (L), CVA tenderness (R), paraspinal tenderness - Neurological Exam Neurological exam: Alert, CN II-XII Intact, Oriented x3, Reflexes Normal - Psychiatric Exam Psychiatric exam: Depressed - Skin Skin Exam: Dry, Intact Results - Vital Signs Recent Vital Signs: Last Vital Signs Temp 97.8 F 04/28/17 12:00 Pulse 90 04/28/17 12:00 Resp 18 04/28/17 12:00 BP 154/77 H 04/28/17 12:00 Pulse Ox 96 04/28/17 12:00 - Labs Result Diagrams: 04/28/17 04:25 04/28/17 04:25 Labs: Laboratory Results - last 24 hr 04/27/17 04/27/17 04/28/17 14:10 14:10 04:25 WBC 15.5 H D 15.8 H RBC 4.27 L 3.92 L Hgb 14.2 13.0 Hct 42.5 39.4 MCV 99.7 H D 100.5 H MCH 33.3 H 33.2 H MCHC 33.4 33.1 RDW 14.5 14.5 Plt Count 165 154 MPV 7.7 8.0 Neut % (Auto) 71.6 73.2 Lymph % (Auto) 14.5 L 10.9 L [place] % (Auto) 12.2 H 14.5 H Eos % (Auto) 0.9 0.6 Baso % (Auto) 0.8 0.8 Neut # 11.1 H 11.6 H Lymph # 2.2 1.7 [place] # 1.9 H 2.3 H Eos # 0.1 0.1 Baso # 0.1 0.1 Sodium 132 Potassium 4.3 Chloride 91 L Carbon Dioxide 25 Anion Gap 20 BUN 18 Creatinine 0.7 L Est GFR ( Amer) > 60 Est GFR (Non-Af Amer) > 60 Random Glucose 112 H Calcium 9.8 Total Bilirubin 1.2 AST 37 ALT 27 Alkaline Phosphatase 81 Troponin I 0.0140 NT-Pro-B Natriuret Pep 163 Total Protein 8.8 H Albumin 4.9 Globulin 3.8 Albumin/Globulin Ratio 1.3 04/28/17 04:25 WBC RBC Hgb Hct MCV MCH MCHC RDW Plt Count MPV Neut % (Auto) Lymph % (Auto) [place] % (Auto) Eos % (Auto) Baso % (Auto) Neut # Lymph # [place] # Eos # Baso # Sodium 133 Potassium 4.2 Chloride 93 L Carbon Dioxide 29 Anion Gap 15 BUN 17 Creatinine 0.7 L Est GFR ( Amer) > 60 Est GFR (Non-Af Amer) > 60 Random Glucose 141 H Calcium 9.2 Total Bilirubin AST ALT Alkaline Phosphatase Troponin I NT-Pro-B Natriuret Pep Total Protein Albumin Globulin Albumin/Globulin Ratio Assessment & Plan (1) Leg pain Status: Acute (2) Leukocytosis Status: Acute (3) Hypoxemia Status: Acute Priority: High (4) Aortic stenosis Status: Chronic Priority: High - Assessment and Plan (Free Text) Assessment: possible cellulitis r/o sepsis- unlikely COPD HTN OA CHF - possibly right sided? Hx Aortic Stenosis check cultures recc cardio and vascular work up
--- NOTE | 2017-04-28 12:39 | CP.PCM.CON ---
History of Present Illness - History of Present Illness History of Present Illness: 87 yo male with past medical history of Hypertension, s/p TAVR for Aortic Stenosis. Admitted with intractable leg pain which has persisted for several months. Venous Doppler is negative for DVT. ABIs are non-diagnostic. Cardiology consulted for LBBB. 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 Pt is resting comfortably with no c/o of chest pain or dyspnea. BNP is normal. CXR is unremarkable. Past Patient History - Past Medical History & Family History Past Medical History?: Yes - Past Social History Smoking Status: Former Smoker - CARDIAC Hx Hypertension: Yes Other/Comment: heart valve replacement. - PULMONARY Hx Respiratory Disorders: No Other/Comment: Ex smoker, quit 2 years ago - NEUROLOGICAL Hx Neurological Disorder: No - HEENT Hx HEENT Problems: No - RENAL Hx Chronic Kidney Disease: No - ENDOCRINE/METABOLIC Hx Endocrine Disorders: No - HEMATOLOGICAL/ONCOLOGICAL Hx Blood Disorders: No - INTEGUMENTARY Hx Dermatological Problems: No - MUSCULOSKELETAL/RHEUMATOLOGICAL Hx Falls: No Hx Gout: Yes - GASTROINTESTINAL Hx Gastrointestinal Disorders: No - GENITOURINARY/GYNECOLOGICAL Hx Genitourinary Disorders: No - PSYCHIATRIC Hx Psychophysiologic Disorder: No Hx Substance Use: No - SURGICAL HISTORY Hx Surgeries: No - ANESTHESIA Hx Anesthesia: No Meds Allergies/Adverse Reactions: Allergies Allergy/AdvReac Type Severity Reaction Status Date / Time No Known Allergies Allergy Verified 07/28/16 15:35 - Medications Medications: Current Medications Acetaminophen (Tylenol 325mg Tab) 650 mg PO Q6 PRN PRN Reason: Pain, Mild (1-3) Albuterol Sulfate (Albuterol 0.083% Inhal [place] (2.5 Mg/3 Ml) Ud) 2.5 mg INH RQ4 PRN PRN Reason: Shortness of Breath Albuterol/Ipratropium (Duoneb 3 Mg/0.5 Mg (3 Ml) Ud) 3 ml INH RQID [facility] Allopurinol (Zyloprim) 300 mg PO DAILY [facility] Last Admin: 04/28/17 09:50 Dose: 300 mg Amlodipine Besylate (Norvasc) 10 mg PO DAILY [facility] Last Admin: 04/28/17 09:51 Dose: 10 mg Aspirin (Ecotrin) 81 mg PO DAILY [facility] Last Admin: 04/28/17 09:51 Dose: 81 mg Atorvastatin Calcium (Lipitor) 20 mg PO QPM [facility] Enalapril Maleate (Vasotec) 5 mg PO DAILY [facility] Last Admin: 04/28/17 09:52 Dose: 5 mg Enoxaparin Sodium (Lovenox) 40 mg SC DAILY [facility] PRN Reason: Protocol Furosemide (Lasix) 20 mg PO DAILY [facility] Last Admin: 04/28/17 09:51 Dose: 20 mg Metoprolol Tartrate (Lopressor) 25 mg PO Q12H [facility] Last Admin: 04/28/17 00:15 Dose: 25 mg Tramadol HCl (Ultram) 50 mg PO BID PRN PRN Reason: Pain, moderate (4-7) Last Admin: 04/27/17 23:18 Dose: 50 mg Physical Exam - Head Exam Head Exam: NORMAL INSPECTION - Neck Exam Neck exam: Positive for: Normal Inspection - Respiratory Exam Respiratory Exam: Clear to Auscultation Bilateral - Cardiovascular Exam Cardiovascular Exam: REGULAR RHYTHM - GI/Abdominal Exam GI & Abdominal Exam: Normal Bowel Sounds - Extremities Exam Extremities exam: Positive for: pedal edema Results - Vital Signs Recent Vital Signs: Last Vital Signs Temp 97.8 F 04/28/17 12:00 Pulse 90 04/28/17 12:00 Resp 18 04/28/17 12:00 BP 154/77 H 04/28/17 12:00 Pulse Ox 96 04/28/17 12:00 - Labs Result Diagrams: 04/28/17 04:25 04/28/17 04:25 Labs: Laboratory Results - last 24 hr 04/27/17 04/27/17 04/28/17 14:10 14:10 04:25 WBC 15.5 H D 15.8 H RBC 4.27 L 3.92 L Hgb 14.2 13.0 Hct 42.5 39.4 MCV 99.7 H D 100.5 H MCH 33.3 H 33.2 H MCHC 33.4 33.1 RDW 14.5 14.5 Plt Count 165 154 MPV 7.7 8.0 Neut % (Auto) 71.6 73.2 Lymph % (Auto) 14.5 L 10.9 L [place] % (Auto) 12.2 H 14.5 H Eos % (Auto) 0.9 0.6 Baso % (Auto) 0.8 0.8 Neut # 11.1 H 11.6 H Lymph # 2.2 1.7 [place] # 1.9 H 2.3 H Eos # 0.1 0.1 Baso # 0.1 0.1 Sodium 132 Potassium 4.3 Chloride 91 L Carbon Dioxide 25 Anion Gap 20 BUN 18 Creatinine 0.7 L Est GFR ( Amer) > 60 Est GFR (Non-Af Amer) > 60 Random Glucose 112 H Calcium 9.8 Total Bilirubin 1.2 AST 37 ALT 27 Alkaline Phosphatase 81 Troponin I 0.0140 NT-Pro-B Natriuret Pep 163 Total Protein 8.8 H Albumin 4.9 Globulin 3.8 Albumin/Globulin Ratio 1.3 04/28/17 04:25 WBC RBC Hgb Hct MCV MCH MCHC RDW Plt Count MPV Neut % (Auto) Lymph % (Auto) [place] % (Auto) Eos % (Auto) Baso % (Auto) Neut # Lymph # [place] # Eos # Baso # Sodium 133 Potassium 4.2 Chloride 93 L Carbon Dioxide 29 Anion Gap 15 BUN 17 Creatinine 0.7 L Est GFR ( Amer) > 60 Est GFR (Non-Af Amer) > 60 Random Glucose 141 H Calcium 9.2 Total Bilirubin AST ALT Alkaline Phosphatase Troponin I NT-Pro-B Natriuret Pep Total Protein Albumin Globulin Albumin/Globulin Ratio Assessment & Plan - Assessment and Plan (Free Text) Assessment: LBBB is old. Pt is hemodynamically stable Continue current medications W/u for intractable leg pain in progress
[2017-04-28] MEDS: Enoxaparin 40 mg Syringe SC SCH (13:03)
[2017-04-28] MEDS: Albuterol-Ipratrop 3 mg / 0.5 (3 ml) UD INH SCH ×3 (13:32→19:02)
[2017-04-28] MEDS ORDERED: Sodium Chloride 0.9% 50 ML IV ONE (20:29)
[2017-04-28] MEDS ORDERED: Iodixanol 320 MG/ML 100 ML BOTTLE IV ONE (20:29)
--- NOTE | 2017-04-28 21:26 | CP.PCM.HP ---
History of Present Illness - History of Present Illness History of Present Illness: 87 yo with hx of HTN Prediabetes S/P TAVR smoker COPD admitted for lower extremity pain Pt was diagnosed with a partial tear of the gastrocnemius muscle on MRI and was doing rehab Present on Admission - Present on Admission Any Indicators Present on Admission: No Past Patient History - Past Medical History & Family History Past Medical History?: Yes - Past Social History Smoking Status: Former Smoker - CARDIAC Hx Hypertension: Yes Other/Comment: heart valve replacement. - PULMONARY Hx Respiratory Disorders: No Other/Comment: Ex smoker, quit 2 years ago - NEUROLOGICAL Hx Neurological Disorder: No - HEENT Hx HEENT Problems: No - RENAL Hx Chronic Kidney Disease: No - ENDOCRINE/METABOLIC Hx Endocrine Disorders: No - HEMATOLOGICAL/ONCOLOGICAL Hx Blood Disorders: No - INTEGUMENTARY Hx Dermatological Problems: No - MUSCULOSKELETAL/RHEUMATOLOGICAL Hx Falls: No Hx Gout: Yes - GASTROINTESTINAL Hx Gastrointestinal Disorders: No - GENITOURINARY/GYNECOLOGICAL Hx Genitourinary Disorders: No - PSYCHIATRIC Hx Psychophysiologic Disorder: No Hx Substance Use: No - SURGICAL HISTORY Hx Surgeries: No - ANESTHESIA Hx Anesthesia: No Meds Allergies/Adverse Reactions: Allergies Allergy/AdvReac Type Severity Reaction Status Date / Time No Known Allergies Allergy Verified 07/28/16 15:35 Physical Exam - Respiratory Exam Respiratory Exam: NORMAL BREATHING PATTERN - Cardiovascular Exam Cardiovascular Exam: REGULAR RHYTHM - GI/Abdominal Exam GI & Abdominal Exam: Normal Bowel Sounds Results - Vital Signs Recent Vital Signs: Last Vital Signs Temp 97.9 F 04/28/17 20:10 Pulse 88 04/28/17 20:10 Resp 16 04/28/17 20:10 BP 124/64 04/28/17 20:10 Pulse Ox 95 04/28/17 20:10 - Labs Result Diagrams: 04/28/17 04:25 04/28/17 04:25 Labs: Laboratory Results - last 24 hr 04/28/17 04/28/17 04:25 04:25 WBC 15.8 H RBC 3.92 L Hgb 13.0 Hct 39.4 MCV 100.5 H MCH 33.2 H MCHC 33.1 RDW 14.5 Plt Count 154 MPV 8.0 Neut % (Auto) 73.2 Lymph % (Auto) 10.9 L Pine % (Auto) 14.5 H Eos % (Auto) 0.6 Baso % (Auto) 0.8 Neut # 11.6 H Lymph # 1.7 Pine # 2.3 H Eos # 0.1 Baso # 0.1 Sodium 133 Potassium 4.2 Chloride 93 L Carbon Dioxide 29 Anion Gap 15 BUN 17 Creatinine 0.7 L Est GFR ( Amer) > 60 Est GFR (Non-Af Amer) > 60 Random Glucose 141 H Calcium 9.2 Assessment & Plan - Assessment and Plan (Free Text) Assessment: Lower extremity pain etiol? orthopedic vs vascular Ortho Vascular Physiatry HTN Prediabetes S/P TAVR smoker COPD Cardiology and Pulmonary WBC elevated cellulitis??? ID
--- NOTE | 2017-04-28 22:36 | CT ---
EXAM: CT Angiography Chest With Intravenous Contrast EXAM DATE/TIME: 04/28/2017 5:50 PM CLINICAL HISTORY: 87 years old, male; Signs and symptoms; Dyspnea; Prior surgery; Surgery type: Heart valve replacement; Additional info: Bilateral leg swelling. R/O pe. TECHNIQUE: Axial computed tomographic angiography images of the chest with intravenous contrast using pulmonary embolism protocol. All CT scans at this facility use one or more dose reduction techniques, viz.: automated exposure control; ma/kV adjustment per patient size (including targeted exams where dose is matched to indication; i.e. head); or iterative reconstruction technique. MIP reconstructed images were created and reviewed. Coronal and sagittal reformatted images were created and reviewed. CONTRAST: 90 mL of [id number] administered intravenously. COMPARISON: CR - CHEST PORTABLE 2017-04-27 13:55 FINDINGS: Aortic valve replacement. Cardiomegaly. The ascending aorta measures 4.3 cm. The aortic arch measures 3.1 cm. The descending aorta measures 2.7 cm. No aortic dissection or periaortic fluid. No pulmonary embolism identified although patient motion produces extensive artifact/heterogeneity through the distal branches. No emboli in the main pulmonary arteries. No pleural or pericardial effussions. Small infiltrate/consolidation medial left lung base. The visualized portions of the upper abdomen appear normal. IMPRESSION: Small infiltrate/consolidation medial left lung base, likely of atelectatic etiology although developing acute infectious infiltrate would be possible. Underlying lesion would be difficult to exclude. Clinical correlation is recommended as well as followup.
[2017-04-29] MEDS: Albuterol-Ipratrop 3 mg / 0.5 (3 ml) UD INH SCH ×4 (08:44→19:14)
[2017-04-29] MEDS: Enoxaparin 40 mg Syringe SC SCH (09:00)
--- NOTE | 2017-04-29 11:22 | CP.PCM.CON ---
History of Present Illness - History of Present Illness History of Present Illness: General surgery consult note for Dr. Dione Mobley, PGY-1 Pt S & E at bedside. 87M w/PMH sig for HTN, hx of tobacco use consulted for bilateral lower extremity pain x mos. Pt reports his Right LE has had pain for 2 mos, Left LE has had pain for 1 mos. Pain is worsened by elevation, ambulation. Pain is alleviated by dangling legs off bed after sleep and rest. Pain has been worsening over past few months. Pain is constant, variable in intensity, non radiating, "pins and needles". Admits to decreased ambulation distance, lower extremity swelling (on water pill). Denies other complaints. PMH: HTN, DM, gout, PSH: TAVR All: NKDA SH: Admits to hx tobacco use (quit 2015), ETOH use (1 bottle of wine daily), denies illicit drug use Review of Systems - Review of Systems All systems: reviewed and no additional remarkable complaints except - Constitutional Constitutional: Weakness. absent: Chills, Fever, Headache - EENT Eyes: absent: Change in Vision Ears: absent: Dizziness Nose/Mouth/Throat: absent: Sore Throat - Cardiovascular Cardiovascular: Leg Edema, Pedal Edema. absent: Chest Pain - Respiratory Respiratory: Cough, Excessive Mucous Production - Gastrointestinal Gastrointestinal: absent: Abdominal Pain, Nausea, Vomiting - Musculoskeletal Musculoskeletal: Numbness, Tingling - Integumentary Integumentary: Swelling (legs) - Neurological Neurological: Paresthesias (legs) - Psychiatric Psychiatric: absent: Change in Appetite Past Patient History - Past Medical History & Family History Past Medical History?: Yes - Past Social History Smoking Status: Former Smoker - CARDIAC Hx Hypertension: Yes Other/Comment: heart valve replacement. - PULMONARY Hx Respiratory Disorders: No Other/Comment: Ex smoker, quit 2 years ago - NEUROLOGICAL Hx Neurological Disorder: No - HEENT Hx HEENT Problems: No - RENAL Hx Chronic Kidney Disease: No - ENDOCRINE/METABOLIC Hx Endocrine Disorders: No - HEMATOLOGICAL/ONCOLOGICAL Hx Blood Disorders: No - INTEGUMENTARY Hx Dermatological Problems: No - MUSCULOSKELETAL/RHEUMATOLOGICAL Hx Falls: No Hx Gout: Yes - GASTROINTESTINAL Hx Gastrointestinal Disorders: No - GENITOURINARY/GYNECOLOGICAL Hx Genitourinary Disorders: No - PSYCHIATRIC Hx Psychophysiologic Disorder: No Hx Substance Use: No - SURGICAL HISTORY Hx Surgeries: No - ANESTHESIA Hx Anesthesia: No Meds Allergies/Adverse Reactions: Allergies Allergy/AdvReac Type Severity Reaction Status Date / Time No Known Allergies Allergy Verified 07/28/16 15:35 - Medications Medications: Current Medications Acetaminophen (Tylenol 325mg Tab) 650 mg PO Q6 PRN PRN Reason: Pain, Mild (1-3) Albuterol Sulfate (Albuterol 0.083% Inhal Olivia (2.5 Mg/3 Ml) Ud) 2.5 mg INH RQ4 PRN PRN Reason: Shortness of Breath Albuterol/Ipratropium (Duoneb 3 Mg/0.5 Mg (3 Ml) Ud) 3 ml INH RQID [facility] Last Admin: 04/29/17 08:44 Dose: 3 ml Allopurinol (Zyloprim) 300 mg PO DAILY [facility] Last Admin: 04/29/17 09:00 Dose: 300 mg Amlodipine Besylate (Norvasc) 10 mg PO DAILY [facility] Last Admin: 04/29/17 09:00 Dose: 10 mg Aspirin (Ecotrin) 81 mg PO DAILY [facility] Last Admin: 04/29/17 10:00 Dose: 81 mg Atorvastatin Calcium (Lipitor) 20 mg PO QPM [facility] Last Admin: 04/28/17 18:01 Dose: 20 mg Enalapril Maleate (Vasotec) 5 mg PO DAILY [facility] Last Admin: 04/29/17 09:00 Dose: 5 mg Enoxaparin Sodium (Lovenox) 40 mg SC DAILY [facility] PRN Reason: Protocol Last Admin: 04/29/17 09:00 Dose: 40 mg Furosemide (Lasix) 20 mg PO DAILY [facility] Last Admin: 04/29/17 09:00 Dose: 20 mg Ceftriaxone Sodium 1 gm/ (Sodium Chloride) 50 mls @ 50 mls/hr IVPB DAILY [facility] PRN Reason: Protocol Last Admin: 04/29/17 10:00 Dose: 50 mls/hr Metoprolol Tartrate (Lopressor) 25 mg PO Q12@0100,1300 [facility] Last Admin: 04/29/17 01:05 Dose: 25 mg Tramadol HCl (Ultram) 50 mg PO BID PRN PRN Reason: Pain, moderate (4-7) Last Admin: 04/29/17 01:08 Dose: 50 mg Physical Exam - Constitutional Appears: Non-toxic, No Acute Distress - Head Exam Head Exam: ATRAUMATIC, NORMAL INSPECTION, NORMOCEPHALIC - Eye Exam Eye Exam: EOMI, Normal appearance - ENT Exam ENT Exam: Mucous Membranes Moist, Normal Exam - Neck Exam Neck exam: Positive for: Full Rom, Normal Inspection - Respiratory Exam Respiratory Exam: NORMAL BREATHING PATTERN - Cardiovascular Exam Cardiovascular Exam: REGULAR RHYTHM, +S1, +S2 - GI/Abdominal Exam GI & Abdominal Exam: Soft. absent: Distended (obese), Tenderness - Extremities Exam Extremities exam: Positive for: pedal edema (bilateral). Negative for: calf tenderness, tenderness - Neurological Exam Neurological exam: Alert, CN II-XII Intact, Oriented x3 - Psychiatric Exam Psychiatric exam: Normal Affect, Normal Mood - Skin Skin Exam: Dry, Intact Additional comments: lower extremities with discoloration, findings compatible with chronic venous stasis Results - Vital Signs Recent Vital Signs: Last Vital Signs Temp 98.7 F 04/29/17 08:28 Pulse 94 H 04/29/17 09:00 Resp 20 04/29/17 08:28 BP 147/94 H 04/29/17 09:00 Pulse Ox 94 L 04/29/17 08:28 - Labs Result Diagrams: 04/28/17 04:25 04/28/17 04:25 Labs: Laboratory Results - last 24 hr 04/28/17 14:17 Procalcitonin 0.11 L Assessment & Plan - Assessment and Plan (Free Text) Assessment: 87M w/PMH sig for s/p TAVR, HTN, hx of tobacco use consulted for Bilateral LE pain- likely 2/2 Peripheral vascular disease Plan: Pain mgmt Physical therapy Recommend vascular surgery consult Will DW attending Leandra, PGY-1 - Date & Time Date: 04/29/17 Time: 11:25
--- NOTE | 2017-04-29 12:11 | CP.PCM.CON ---
History of Present Illness - History of Present Illness History of Present Illness: Orthopedic consultation Dr. Fried 87M complains of B lower leg pain, L>R at this time. Before right was worse, he says he had more pain and swelling in right and they did an MRI and said his muscle was torn. He went to PT and says it did not help at all. Now he says left is a little worse. He denies any history of blood clots. Pain is more tolerable while sitting in chair with legs down. No history of wounds on legs. Denies numbness/tingling. Denies CP/SOB/dizziness Review of Systems - Review of Systems All systems: reviewed and no additional remarkable complaints except - Constitutional Additional comments: no fever chills - Cardiovascular Cardiovascular: As Per HPI - Respiratory Respiratory: As Per HPI - Musculoskeletal Musculoskeletal: As Per HPI - Integumentary Integumentary: As Per HPI - Neurological Neurological: As Per HPI - Hematologic/Lymphatic Hematologic: absent: As Per HPI, Easy Bleeding, Easy Bruising, Lymphadenopathy, Other Past Patient History - Past Medical History & Family History Past Medical History?: Yes Past Family History: Reviewed and not pertinent - Past Social History Smoking Status: Former Smoker - CARDIAC Hx Hypertension: Yes Other/Comment: heart valve replacement. - PULMONARY Hx Respiratory Disorders: No Other/Comment: Ex smoker, quit 2 years ago - NEUROLOGICAL Hx Neurological Disorder: No - HEENT Hx HEENT Problems: No - RENAL Hx Chronic Kidney Disease: No - ENDOCRINE/METABOLIC Hx Endocrine Disorders: No - HEMATOLOGICAL/ONCOLOGICAL Hx Blood Disorders: No - INTEGUMENTARY Hx Dermatological Problems: No - MUSCULOSKELETAL/RHEUMATOLOGICAL Hx Falls: No Hx Gout: Yes - GASTROINTESTINAL Hx Gastrointestinal Disorders: No - GENITOURINARY/GYNECOLOGICAL Hx Genitourinary Disorders: No - PSYCHIATRIC Hx Psychophysiologic Disorder: No Hx Substance Use: No - SURGICAL HISTORY Hx Surgeries: No - ANESTHESIA Hx Anesthesia: No Meds Allergies/Adverse Reactions: Allergies Allergy/AdvReac Type Severity Reaction Status Date / Time No Known Allergies Allergy Verified 07/28/16 15:35 - Medications Medications: Current Medications Acetaminophen (Tylenol 325mg Tab) 650 mg PO Q6 PRN PRN Reason: Pain, Mild (1-3) Albuterol Sulfate (Albuterol 0.083% Inhal Olivia (2.5 Mg/3 Ml) Ud) 2.5 mg INH RQ4 PRN PRN Reason: Shortness of Breath Albuterol/Ipratropium (Duoneb 3 Mg/0.5 Mg (3 Ml) Ud) 3 ml INH RQID [facility] Last Admin: 04/29/17 11:25 Dose: 3 ml Allopurinol (Zyloprim) 300 mg PO DAILY [facility] Last Admin: 04/29/17 09:00 Dose: 300 mg Amlodipine Besylate (Norvasc) 10 mg PO DAILY [facility] Last Admin: 04/29/17 09:00 Dose: 10 mg Aspirin (Ecotrin) 81 mg PO DAILY [facility] Last Admin: 04/29/17 10:00 Dose: 81 mg Atorvastatin Calcium (Lipitor) 20 mg PO QPM [facility] Last Admin: 04/28/17 18:01 Dose: 20 mg Enalapril Maleate (Vasotec) 5 mg PO DAILY [facility] Last Admin: 04/29/17 09:00 Dose: 5 mg Enoxaparin Sodium (Lovenox) 40 mg SC DAILY [facility] PRN Reason: Protocol Last Admin: 04/29/17 09:00 Dose: 40 mg Furosemide (Lasix) 20 mg PO DAILY [facility] Last Admin: 04/29/17 09:00 Dose: 20 mg Ceftriaxone Sodium 1 gm/ (Sodium Chloride) 50 mls @ 50 mls/hr IVPB DAILY [facility] PRN Reason: Protocol Last Admin: 04/29/17 10:00 Dose: 50 mls/hr Metoprolol Tartrate (Lopressor) 25 mg PO Q12@0100,1300 [facility] Last Admin: 04/29/17 01:05 Dose: 25 mg Tramadol HCl (Ultram) 50 mg PO BID PRN PRN Reason: Pain, moderate (4-7) Last Admin: 04/29/17 01:08 Dose: 50 mg Physical Exam - Constitutional Appears: Well, No Acute Distress - Head Exam Head Exam: ATRAUMATIC - Respiratory Exam Respiratory Exam: NORMAL BREATHING PATTERN - Cardiovascular Exam Additional comments: +DP/PT pulses bilaterally via doppler - Extremities Exam Additional comments: +ROM ankle/toes, sensation intact No pain with resisted PF/toe flexion, DF/knee flex/ext all 5/5 No tenderness to calf admits to TTP to anterior lower legs bilaterally Negative homans - Neurological Exam Neurological exam: Alert, Oriented x3 - Psychiatric Exam Psychiatric exam: Normal Affect, Normal Mood - Skin Additional comments: B lower legs: brawny skin changes B 1/2 lower legs. feet cool, 2+ pitting edema to both legs, right leg more swollen that left Results - Vital Signs Recent Vital Signs: Last Vital Signs Temp 98.4 F 04/29/17 11:49 Pulse 94 H 04/29/17 11:49 Resp 20 04/29/17 11:49 BP 123/58 L 04/29/17 11:49 Pulse Ox 97 04/29/17 11:49 - Labs Result Diagrams: 04/28/17 04:25 04/28/17 04:25 Labs: Laboratory Results - last 24 hr 04/28/17 14:17 Procalcitonin 0.11 L - Impressions Impression: Patient Name / ID : MISHA HANSON / [id number] Exam Date : 02/04/2017 15:10:11 ( Approved ) Study Comment : Sex / Age : M / 86Y Creator : Adam Verma MD Dictator : Adam Verma MD Stave Inspector : Warehouse Operator : Adam Verma MD Approver2 : Report Date : 02/05/2017 10:45:16 My Comment : MRI right calf History: Calf pain. Comparison: None available. Technique: Multi-echo multiplanar sequences were performed through the right calf without the use of intravenous contrast. Findings: Mild to moderate diffuse fatty atrophy of the visualized musculature. Prominent reticulation and edema seen within the medial and lateral heads of the gastrocnemius muscle bellies. This is nonspecific and may be the sequelae of an underlying myositis versus muscle strain/partial tearing versus additional etiology. Clinical correlation. Trace fluid and edema seen at the fascial interface of the medial head of the gastrocnemius muscle and soleus muscle bellies which may represent a partial plantaris tendon injury. Prominent reticulation and edema within the circumferential subcutaneous soft tissues. Visualized osseous structures appear preserved. Incidentally noted is increased signal seen within the body of the medial meniscus which may represent a tear. This would be better evaluated with a right knee MRI. Impression: 1. Mild to moderate diffuse fatty atrophy of the visualized musculature. 2. Prominent reticulation and edema seen within the medial and lateral heads of the gastrocnemius muscle bellies. This is nonspecific and may be the sequelae of an underlying myositis versus muscle strain/partial tearing versus additional etiology. Clinical correlation. 3. Trace fluid and edema seen at the fascial interface of the medial head of the gastrocnemius muscle and soleus muscle bellies which may represent a partial plantaris tendon injury. 4. Prominent reticulation and edema within the circumferential subcutaneous soft tissues. 5. Incidentally noted is increased signal seen within the body of the medial meniscus which may represent a tear. This would be better evaluated with a right knee MRI. Patient Name / ID : MISHA HANSON / [id number] Exam Date : 04/27/2017 11:14:46 ( Approved ) Study Comment : Sex / Age : M / 87Y Creator : Rhona Boston MD Dictator : Rhona Boston MD Stave Inspector : Warehouse Operator : Rhona Boston MD Approver2 : Report Date : 04/27/2017 12:00:24 My Comment : PROCEDURE: Bilateral lower extremity venous duplex Doppler. HISTORY: r/o dvt COMPARISON: None available. TECHNIQUE: Bilateral common femoral, superficial femoral, popliteal and posterior tibial veins were evaluated. Flow was assessed with color Doppler, compressibility, assessment of phasic flow and augmentation response. FINDINGS: COMMON FEMORAL VEIN: Right CFV: Unremarkable. Left CFV: Unremarkable. SUPERFICIAL FEMORAL VEIN: Right SFV: Unremarkable. Left SFV: Unremarkable. POPLITEAL VEIN: Right Popliteal: Unremarkable. Left Popliteal: Unremarkable. POSTERIOR TIBIAL VEIN: Right PTV: Unremarkable. Left PTV: Unremarkable. OTHER FINDINGS: None. IMPRESSION: No evidence of deep venous thrombosis. Assessment & Plan (1) Venous stasis of both lower extremities Assessment and Plan: recommend vascular consult KLAUS stockings elevation no orthopedic issues at this time continue PT d/w Dr. Fried, agrees with above Status: Acute (2) Rupture of right plantaris tendon Assessment and Plan: 01/2017 noted on MRI non tender and no pain with resisted PF at this time This does not appear to be the cause of patients pain at this time (chief complaint left now) This may be why patient has some residual swelling to RLE No orthopedic treatment indicated for this tendon rupture Status: Chronic
--- NOTE | 2017-04-29 14:16 | CP.PCM.PN ---
Subjective - Date & Time of Evaluation Date of Evaluation: 04/29/17 Time of Evaluation: 08:00 - Subjective Subjective: no fever still some pain in limbs going for vascular studies redness and swelling less PMH: HTN, DM, gout, PSH: TAVR All: NKDA SH: Admits to hx tobacco use (quit 2015), ETOH use (1 bottle of wine daily), denies illicit drug use Objective - Vital Signs/Intake and Output Vital Signs (last 24 hours): Temp Pulse Resp BP Pulse Ox 98.4 F 94 H 20 123/58 L 97 04/29/17 11:49 04/29/17 11:49 04/29/17 11:49 04/29/17 11:49 04/29/17 11:49 - Medications Medications: Current Medications Acetaminophen (Tylenol 325mg Tab) 650 mg PO Q6 PRN PRN Reason: Pain, Mild (1-3) Albuterol Sulfate (Albuterol 0.083% Inhal Olivia (2.5 Mg/3 Ml) Ud) 2.5 mg INH RQ4 PRN PRN Reason: Shortness of Breath Albuterol/Ipratropium (Duoneb 3 Mg/0.5 Mg (3 Ml) Ud) 3 ml INH RQID [facility] Last Admin: 04/29/17 11:25 Dose: 3 ml Allopurinol (Zyloprim) 300 mg PO DAILY [facility] Last Admin: 04/29/17 09:00 Dose: 300 mg Amlodipine Besylate (Norvasc) 10 mg PO DAILY [facility] Last Admin: 04/29/17 09:00 Dose: 10 mg Aspirin (Ecotrin) 81 mg PO DAILY [facility] Last Admin: 04/29/17 10:00 Dose: 81 mg Atorvastatin Calcium (Lipitor) 20 mg PO QPM [facility] Last Admin: 04/28/17 18:01 Dose: 20 mg Enalapril Maleate (Vasotec) 5 mg PO DAILY [facility] Last Admin: 04/29/17 09:00 Dose: 5 mg Enoxaparin Sodium (Lovenox) 40 mg SC DAILY [facility] PRN Reason: Protocol Last Admin: 04/29/17 09:00 Dose: 40 mg Furosemide (Lasix) 20 mg PO DAILY [facility] Last Admin: 04/29/17 09:00 Dose: 20 mg Ceftriaxone Sodium 1 gm/ (Sodium Chloride) 50 mls @ 50 mls/hr IVPB DAILY [facility] PRN Reason: Protocol Last Admin: 04/29/17 10:00 Dose: 50 mls/hr Metoprolol Tartrate (Lopressor) 25 mg PO Q12@0100,1300 [facility] Last Admin: 04/29/17 01:05 Dose: 25 mg Tramadol HCl (Ultram) 50 mg PO BID PRN PRN Reason: Pain, moderate (4-7) Last Admin: 04/29/17 01:08 Dose: 50 mg - Labs Labs: 04/28/17 04:25 04/28/17 04:25 - Constitutional Appears: Non-toxic, Chronically Ill - Head Exam Head Exam: NORMOCEPHALIC - Eye Exam Eye Exam: PERRL - ENT Exam ENT Exam: Mucous Membranes Dry - Neck Exam Neck Exam: absent: Lymphadenopathy, Thyromegaly - Respiratory Exam Respiratory Exam: Decreased Breath Sounds, Rhonchi - Cardiovascular Exam Cardiovascular Exam: REGULAR RHYTHM, +S1, +S2, Murmur - GI/Abdominal Exam GI & Abdominal Exam: Distended, Soft - Rectal Exam Rectal Exam: Deferred - Exam Exam: NORMAL INSPECTION - Extremities Exam Extremities Exam: Pedal Edema, Tenderness. absent: Calf Tenderness - Back Exam Back Exam: absent: CVA tenderness (L), CVA tenderness (R) Assessment and Plan (1) Leg pain Status: Acute (2) Leukocytosis Status: Acute (3) Hypoxemia Status: Acute (4) Aortic stenosis Status: Chronic - Assessment and Plan (Free Text) Assessment: cont iv rx as ordered
--- NOTE | 2017-04-29 15:34 | PCM.IRP ---
History of Present Illness - History of Present Illness History of Present Illness: Full consult to follow. IR requested to evaluate Mr. Velez for PAD. Pt seen at bedside. PVR reviewed and shows pulsatile waveforms. Possible arterial wall calcifications in the tibial vessels. Pt has bilateral pitting edema. Feet are warm. There is a strong DP and PT pulse by doppler. Normal capillary refill. Assessment: Pt has minimal PAD. No role for endovascular intervention at this time. Objective - Vital Signs/Intake and Output Vital Signs (last 24 hours): Vital Signs - 24 hr 04/28/17 04/28/17 04/29/17 15:59 20:10 00:35 Temperature 98.3 F 97.9 F 98.2 F Pulse Rate 82 88 83 Respiratory 20 16 16 Rate Blood Pressure 129/64 124/64 127/64 O2 Sat by Pulse 94 L 95 94 L Oximetry 04/29/17 04/29/17 04/29/17 00:37 01:05 06:17 Temperature 98.2 F 97.3 F L Pulse Rate 83 83 84 Respiratory 16 16 Rate Blood Pressure 127/64 127/64 138/73 O2 Sat by Pulse 94 L 94 L Oximetry 04/29/17 04/29/17 04/29/17 08:28 09:00 11:49 Temperature 98.7 F 98.4 F Pulse Rate 94 H 94 H 94 H Respiratory 20 20 Rate Blood Pressure 147/72 147/94 H 123/58 L O2 Sat by Pulse 94 L 97 Oximetry 04/29/17 13:00 Temperature Pulse Rate 94 H Respiratory Rate Blood Pressure 123/58 L O2 Sat by Pulse Oximetry - Medications Medications: Current Medications Acetaminophen (Tylenol 325mg Tab) 650 mg PO Q6 PRN PRN Reason: Pain, Mild (1-3) Albuterol Sulfate (Albuterol 0.083% Inhal Olivia (2.5 Mg/3 Ml) Ud) 2.5 mg INH RQ4 PRN PRN Reason: Shortness of Breath Albuterol/Ipratropium (Duoneb 3 Mg/0.5 Mg (3 Ml) Ud) 3 ml INH RQID [facility] Last Admin: 04/29/17 15:27 Dose: 3 ml Allopurinol (Zyloprim) 300 mg PO DAILY [facility] Last Admin: 04/29/17 09:00 Dose: 300 mg Amlodipine Besylate (Norvasc) 10 mg PO DAILY [facility] Last Admin: 04/29/17 09:00 Dose: 10 mg Aspirin (Ecotrin) 81 mg PO DAILY [facility] Last Admin: 04/29/17 10:00 Dose: 81 mg Atorvastatin Calcium (Lipitor) 20 mg PO QPM [facility] Last Admin: 04/28/17 18:01 Dose: 20 mg Enalapril Maleate (Vasotec) 5 mg PO DAILY [facility] Last Admin: 04/29/17 09:00 Dose: 5 mg Enoxaparin Sodium (Lovenox) 40 mg SC DAILY [facility] PRN Reason: Protocol Last Admin: 04/29/17 09:00 Dose: 40 mg Furosemide (Lasix) 20 mg PO DAILY [facility] Last Admin: 04/29/17 09:00 Dose: 20 mg Ceftriaxone Sodium 1 gm/ (Sodium Chloride) 50 mls @ 50 mls/hr IVPB DAILY [facility] PRN Reason: Protocol Last Admin: 04/29/17 10:00 Dose: 50 mls/hr Lactic Acid (Lac-Hydrin 12% Lotion (225 G)) 1 applic TOP TID [facility] Metoprolol Tartrate (Lopressor) 25 mg PO Q12@0100,1300 [facility] Last Admin: 04/29/17 13:00 Dose: 25 mg Tramadol HCl (Ultram) 50 mg PO BID PRN PRN Reason: Pain, moderate (4-7) Last Admin: 04/29/17 14:39 Dose: 50 mg - Labs Labs (last 24 hours): Laboratory Results - last 24 hr 04/28/17 14:17 Procalcitonin 0.11 L
--- NOTE | 2017-04-29 16:27 | CP.PCM.PN ---
Subjective - Date & Time of Evaluation Date of Evaluation: 04/29/17 Time of Evaluation: 22:22 - Subjective Subjective: Above noted Objective - Vital Signs/Intake and Output Vital Signs (last 24 hours): Temp Pulse Resp BP Pulse Ox 97.4 F L 70 18 96/58 L 95 04/29/17 16:25 04/29/17 16:25 04/29/17 16:25 04/29/17 16:25 04/29/17 16:25 - Medications Medications: Current Medications Acetaminophen (Tylenol 325mg Tab) 650 mg PO Q6 PRN PRN Reason: Pain, Mild (1-3) Albuterol Sulfate (Albuterol 0.083% Inhal Olivia (2.5 Mg/3 Ml) Ud) 2.5 mg INH RQ4 PRN PRN Reason: Shortness of Breath Albuterol/Ipratropium (Duoneb 3 Mg/0.5 Mg (3 Ml) Ud) 3 ml INH RQID [facility] Last Admin: 04/29/17 15:27 Dose: 3 ml Allopurinol (Zyloprim) 300 mg PO DAILY [facility] Last Admin: 04/29/17 09:00 Dose: 300 mg Amlodipine Besylate (Norvasc) 10 mg PO DAILY [facility] Last Admin: 04/29/17 09:00 Dose: 10 mg Aspirin (Ecotrin) 81 mg PO DAILY [facility] Last Admin: 04/29/17 10:00 Dose: 81 mg Atorvastatin Calcium (Lipitor) 20 mg PO QPM [facility] Last Admin: 04/28/17 18:01 Dose: 20 mg Enalapril Maleate (Vasotec) 5 mg PO DAILY [facility] Last Admin: 04/29/17 09:00 Dose: 5 mg Enoxaparin Sodium (Lovenox) 40 mg SC DAILY [facility] PRN Reason: Protocol Last Admin: 04/29/17 09:00 Dose: 40 mg Furosemide (Lasix) 20 mg PO DAILY [facility] Last Admin: 04/29/17 09:00 Dose: 20 mg Ceftriaxone Sodium 1 gm/ (Sodium Chloride) 50 mls @ 50 mls/hr IVPB DAILY [facility] PRN Reason: Protocol Last Admin: 04/29/17 10:00 Dose: 50 mls/hr Lactic Acid (Lac-Hydrin 12% Lotion (225 G)) 1 applic TOP TID [facility] Metoprolol Tartrate (Lopressor) 25 mg PO Q12@0100,1300 [facility] Last Admin: 04/29/17 13:00 Dose: 25 mg Tramadol HCl (Ultram) 50 mg PO BID PRN PRN Reason: Pain, moderate (4-7) Last Admin: 04/29/17 14:39 Dose: 50 mg - Labs Labs: 04/28/17 04:25 04/28/17 04:25 - Respiratory Exam Respiratory Exam: NORMAL BREATHING PATTERN - Cardiovascular Exam Cardiovascular Exam: REGULAR RHYTHM - GI/Abdominal Exam GI & Abdominal Exam: Normal Bowel Sounds Assessment and Plan - Assessment and Plan (Free Text) Assessment: Lower extremity pain etiol? orthopedic vs vascular Ortho Vascular Physiatry HTN Prediabetes S/P TAVR smoker COPD Cardiology and Pulmonary WBC elevated cellulitis??? ID
[2017-04-30 05:34] LABS: HEMOGLOBIN 11.6 g/dL (12.0-18.0); MEAN CELL VOLUME 100.3 fl (80.0-94.0); MEAN CORPUSCULAR HGB CONC 32.9 g/dL (33.0-37.0); RBC 3.52 Mil/uL (4.40-5.90); RED CELL DISTRIBUTION WIDTH 14.3 % (11.5-14.5); WHITE BLOOD COUNT 11.7 K/uL (4.8-10.8)
[2017-04-30 05:40] LABS: BLOOD UREA NITROGEN 13 mg/dl (9-20); CALCIUM 8.9 mg/dL (8.4-10.2); GFR AFRICAN-AMERICAN > 60; GFR NON-AFRICAN AMERICAN > 60
[2017-04-30] MEDS: Albuterol-Ipratrop 3 mg / 0.5 (3 ml) UD INH SCH ×3 (08:03→15:40)
--- NOTE | 2017-04-30 08:23 | CARD ---
APPROVED REPORT EXAM: Two-dimensional and M-mode echocardiogram with Doppler and color Doppler. Other Information Quality : FairRhythm : NSR Technically limited study due to body habitus. INDICATION Pulmonary Hypertention 2D DIMENSIONS IVSd1.27 (0.7-1.1cm)LVDd4.92 (3.9-5.9cm) LVOT Diameter2.10 (1.8-2.4cm)PWd1.02 (0.7-1.1cm) IVSs1.57 (0.8-1.2cm)LVDs4.36 (2.5-4.0cm) FS (%) 11.3 %PWs1.25 (0.8-1.2cm) M-Mode DIMENSIONS Left Atrium (MM)7.40 (2.5-4.0cm)Aortic Root2.41 (2.2-3.7cm) Aortic Cusp Exc.1.78 (1.5-2.0cm) Mitral Valve E/A ratio0.0 TDI E/Lateral E'0.0E/Medial E'0.0 Pulmonary Valve PV Peak Xdemuxxg35.8cm/s LEFT VENTRICLE The left ventricle is normal size. There is borderline concentric left ventricular hypertrophy. The left ventricular function is normal. The left ventricular ejection fraction is within the normal range. There is normal LV segmental wall motion. Transmitral Doppler flow pattern is Grade I-abnormal relaxation pattern. RIGHT VENTRICLE The right ventricle is normal size. The right ventricle is mildly hypertrophied. The right ventricular systolic function is normal. ATRIA The left atrium is moderately dilated. The right atrium size is normal. AORTIC VALVE Poorly visualised No aortic regurgitation is present. There is no aortic valvular stenosis. MITRAL VALVE The mitral valve is normal in structure. There is no evidence of mitral valve prolapse. There is no mitral valve stenosis. There is no mitral valve regurgitation noted. TRICUSPID VALVE The tricuspid valve is normal in structure. There is no tricuspid valve regurgitation noted. PULMONIC VALVE The pulmonic valve is not well visualized. There is no pulmonic valvular regurgitation. GREAT VESSELS Poorly visualised Due to poor image quality, the IVC could not be assessed. PERICARDIAL EFFUSION The pericardium appears normal. <Conclusion> Extremely poor echo window with extremely poor images. Only apical window provided any meaningful images. All observations are based on inspection of these images only. The left ventricle is normal size. There is borderline concentric left ventricular hypertrophy. There is normal LV segmental wall motion. The left ventricular function is normal. The left ventricular ejection fraction is within the normal range. Transmitral Doppler flow pattern is Grade I-abnormal relaxation pattern. The right ventricle is mildly hypertrophied. The left atrium is moderately dilated.
[2017-04-30] MEDS: Enoxaparin 40 mg Syringe SC SCH (09:58)
[2017-04-30 12:23] VITALS: O2SAT 97
--- NOTE | 2017-04-30 12:58 | CP.PCM.PN ---
Subjective - Date & Time of Evaluation Date of Evaluation: 04/30/17 Time of Evaluation: 12:53 - Subjective Subjective: Interim events/EMR entries reviewed. Echocardiogram report reviewed. Leukocytosis has decreased daily since admission. He has remained afebrile during this entire admission. Fasting glucose level remains elevated. Patient is seated in bedside chair and appears comfortable. Congested cough is still present, but the patient states no sputum production. AE hose have been applied to the lower remedies and there appears to be slightly reduced dependent edema noted. Pharynx is pink and mucous membranes are moist. No dullness on chest percussion. Equal expansion. Diminished breath sounds present bilaterally. Scattered sonorous rhonchi in the lower lobes of both lungs. No audible wheezing. Dry to medium rales are heard in the lung bases posteriorly. No bronchial breathing or egophony. No rub. Heart sounds are distant and the rhythm is regular. Likely represents a significant level of chronic obstructive pulmonary disease, the severity pending findings on pulmonary function study. Echocardiogram unable to prove or disprove the presence of pulmonary hypertension because of poor echo windows secondary to lung disease. CT scan reveals a small area of patchy infiltrate in the medial basal segment of the left lower lobe. This may be responsible for the current presentation and leukocytosis. Will continue current medical regimen including inhalation therapy for chronic lung disease. Pulmonary function study will be requested. Objective - Vital Signs/Intake and Output Vital Signs (last 24 hours): Temp Pulse Resp BP Pulse Ox 97.5 F L 87 20 142/62 97 04/30/17 12:00 04/30/17 12:00 04/30/17 12:00 04/30/17 12:00 04/30/17 12:00 - Medications Medications: Current Medications Acetaminophen (Tylenol 325mg Tab) 650 mg PO Q6 PRN PRN Reason: Pain, Mild (1-3) Albuterol Sulfate (Albuterol 0.083% Inhal Olivia (2.5 Mg/3 Ml) Ud) 2.5 mg INH RQ4 PRN PRN Reason: Shortness of Breath Albuterol/Ipratropium (Duoneb 3 Mg/0.5 Mg (3 Ml) Ud) 3 ml INH RQID [facility] Last Admin: 04/30/17 12:15 Dose: 3 ml Allopurinol (Zyloprim) 300 mg PO DAILY [facility] Last Admin: 04/30/17 09:59 Dose: 300 mg Amlodipine Besylate (Norvasc) 10 mg PO DAILY [facility] Last Admin: 04/30/17 09:59 Dose: 10 mg Aspirin (Ecotrin) 81 mg PO DAILY [facility] Last Admin: 04/30/17 09:58 Dose: 81 mg Atorvastatin Calcium (Lipitor) 20 mg PO QPM [facility] Last Admin: 04/29/17 20:43 Dose: 20 mg Enalapril Maleate (Vasotec) 5 mg PO DAILY [facility] Last Admin: 04/30/17 09:59 Dose: 5 mg Enoxaparin Sodium (Lovenox) 40 mg SC DAILY [facility] PRN Reason: Protocol Last Admin: 04/30/17 09:58 Dose: 40 mg Furosemide (Lasix) 20 mg PO DAILY [facility] Last Admin: 04/30/17 09:58 Dose: 20 mg Ceftriaxone Sodium 1 gm/ (Sodium Chloride) 50 mls @ 50 mls/hr IVPB DAILY [facility] PRN Reason: Protocol Last Admin: 04/30/17 09:59 Dose: 50 mls/hr Lactic Acid (Lac-Hydrin 12% Lotion (225 G)) 1 applic TOP TID [facility] Last Admin: 04/30/17 09:58 Dose: 1 applic Metoprolol Tartrate (Lopressor) 25 mg PO Q12@0100,1300 [facility] Last Admin: 04/29/17 13:00 Dose: 25 mg Tramadol HCl (Ultram) 50 mg PO BID PRN PRN Reason: Pain, moderate (4-7) Last Admin: 04/29/17 20:43 Dose: 50 mg - Labs Labs: 04/30/17 05:00 04/30/17 05:00 Assessment and Plan (1) Leg edema Status: Chronic (2) Cough Status: Chronic
--- NOTE | 2017-04-30 14:22 | US ---
PROCEDURE: Duplex ultrasound of the bilateral lower extremity arteries. HISTORY: pain COMPARISON: None available. TECHNIQUE: Grayscale and duplex Doppler evaluation of the bilateral common femoral, superficial femoral, popliteal, posterior tibial and dorsalis pedis arteries was performed.. FINDINGS: RIGHT LOWER EXTREMITY: RIGHT COMMON FEMORAL ARTERY: Widely patent. Maximal flow velocity of 99.0 cm/s. RIGHT SUPERFICIAL FEMORAL ARTERY: Widely patent. Maximal flow velocity of 79.0 cm/s. RIGHT POPLITEAL ARTERY:Widely patent. Maximal flow velocity of 71.3 cm/s. RIGHT POSTERIOR TIBIAL ARTERY: Widely patent. Maximal flow velocity of 99.6 cm/s. RIGHT DORSALIS PEDIS ARTERY: Widely patent. Maximal flow velocity of 50.4 cm/s. LEFT LOWER EXTREMITY: LEFT COMMON FEMORAL ARTERY: Heterogeneous plaque formation. Maximal flow velocity of 146.2 cm/s. LEFT SUPERFICIAL FEMORAL ARTERY: Widely patent. Maximal flow velocity of 121.0 cm/s. LEFT POPLITEAL ARTERY:Widely patent. Maximal flow velocity of 77.9 cm/s. LEFT POSTERIOR TIBIAL ARTERY: Heterogeneous plaque formation. Maximal flow velocity of 114.1 cm/s. LEFT DORSALIS PEDIS ARTERY: Widely patent. Maximal flow velocity of 91.8 cm/s. OTHER FINDINGS: Bilateral lower extremity edema involving both ankles and feet as well as the right calf. IMPRESSION: Right lower extremity: Normal duplex examination. Left lower extremity: Heterogeneous plaque formation, inflow disease, of no evidence of focal/ critical stenosis.
[2017-04-30 16:10] VITALS: BP 126/54; PULSE 79; RESP 14; TEMP 97.9
--- NOTE | 2017-04-30 20:45 | CP.PCM.PN ---
Subjective - Date & Time of Evaluation Date of Evaluation: 04/30/17 Time of Evaluation: 22:22 - Subjective Subjective: Above noted Still with leg pain Objective - Vital Signs/Intake and Output Vital Signs (last 24 hours): Temp Pulse Resp BP Pulse Ox 97.9 F 79 14 126/54 L 97 04/30/17 16:09 04/30/17 16:09 04/30/17 16:09 04/30/17 16:09 04/30/17 16:09 - Labs Labs: 04/30/17 05:00 04/30/17 05:00 - Respiratory Exam Respiratory Exam: NORMAL BREATHING PATTERN - Cardiovascular Exam Cardiovascular Exam: REGULAR RHYTHM - GI/Abdominal Exam GI & Abdominal Exam: Normal Bowel Sounds Assessment and Plan - Assessment and Plan (Free Text) Assessment: Lower extremity pain etiol? orthopedic vs vascular Ortho Vascular Physiatry Arterial dopplers low extremity COPD Smoker Pulmonary HTN Prediabetes S/P TAVR Cardiology WBC elevated cellulitis??? ID
[2017-05-01 06:21] LABS: TB ANTIGEN MINUS NIL 7.34 IU/mL
== END 2017-04-30 18:50 | DRG 556 ==
LOC: H.ER 10:00 → H.ERHOLD 16:28 → H.TEL 21:18
PROVIDERS: ADMIT Family Medicine Geriatric Medicine; ATTEND Family Medicine Geriatric Medicine
DX: M79.662 Pain in left lower leg (principal); I73.9 Peripheral vascular disease, unspecified; J44.9 Chronic obstructive pulmonary disease, unspecified; I44.7 Left bundle-branch block, unspecified; M10.9 Gout, unspecified; D72.829 Elevated white blood cell count, unspecified; I10 Essential (primary) hypertension; R09.02 Hypoxemia; Z95.2 Presence of prosthetic heart valve; F17.200 Nicotine dependence, unspecified, uncomplicated; R73.03 Prediabetes; I87.8 Other specified disorders of veins; M79.661 Pain in right lower leg

== ENCOUNTER 2017-04-30 13:34 | Inpatient (IN) | payer OTHER ==
--- NOTE | 2017-05-01 04:02 | CP.PCM.CON ---
History of Present Illness - History of Present Illness History of Present Illness: General Surgery Consult note- Dr. Mg 87M initially in hospital for b/l LE pain and tingling and is now in TCU. Surgery was reconsulted for follow up. Pt hx significant for tobacco use, c/o b/ l LE L worse than right that has been going on for 2 month. Pain continues and feels like "mosquito bites" however better than before when legs hang off the side of the bed. worse when legs are up. Hx of MRI of R LE, pt states muscle was torn. Doppler during this visit is negative for DVT. Denies: fevers, chills, chest pain, shortness of breath, nausea, vomiting, diarrhea, IRENE PMH: HTN, NIDDM, gout, aortic stenosis PSH: TAVR ALL: NKDA SocialHx: ETOH 1 bottle per day, hx of tobacco use quit 2015, denies recreational drug use Review of Systems - Review of Systems All systems: reviewed and no additional remarkable complaints except - Constitutional Constitutional: As Per HPI Past Patient History - Past Medical History & Family History Past Medical History?: Yes - Past Social History Smoking Status: Former Smoker - CARDIAC Hx Hypertension: Yes Hx Peripheral Edema: Yes Other/Comment: heart valve replacement. - PULMONARY Hx Respiratory Disorders: No Hx Chronic Obstructive Pulmonary Disease (COPD): Yes Other/Comment: Ex smoker, quit 2 years ago - NEUROLOGICAL Hx Neurological Disorder: No - HEENT Hx HEENT Problems: No - RENAL Hx Chronic Kidney Disease: No - ENDOCRINE/METABOLIC Hx Endocrine Disorders: No - HEMATOLOGICAL/ONCOLOGICAL Hx Blood Disorders: No - INTEGUMENTARY Hx Dermatological Problems: No - MUSCULOSKELETAL/RHEUMATOLOGICAL Hx Falls: No - GASTROINTESTINAL Hx Gastrointestinal Disorders: No - GENITOURINARY/GYNECOLOGICAL Hx Genitourinary Disorders: No - PSYCHIATRIC Hx Substance Use: No - SURGICAL HISTORY Hx Surgeries: No Other/Comment: heart valve replacement - ANESTHESIA Hx Anesthesia: Yes Hx Anesthesia Reactions: No Hx Malignant Hyperthermia: No Meds Allergies/Adverse Reactions: Allergies Allergy/AdvReac Type Severity Reaction Status Date / Time No Known Allergies Allergy Verified 07/28/16 15:35 - Medications Medications: Current Medications Acetaminophen (Tylenol 325mg Tab) 650 mg PO Q6 PRN PRN Reason: Pain, Mild (1-3) Albuterol Sulfate (Albuterol 0.083% Inhal Olivia (2.5 Mg/3 Ml) Ud) 2.5 mg INH RQ4 PRN PRN Reason: Shortness of Breath Albuterol/Ipratropium (Duoneb 3 Mg/0.5 Mg (3 Ml) Ud) 3 ml INH RQID [facility] Allopurinol (Zyloprim) 300 mg PO DAILY [facility] Amlodipine Besylate (Norvasc) 10 mg PO DAILY [facility] Aspirin (Ecotrin) 81 mg PO DAILY [facility] Atorvastatin Calcium (Lipitor) 20 mg PO QPM [facility] Enalapril Maleate (Vasotec) 5 mg PO DAILY [facility] Enoxaparin Sodium (Lovenox) 40 mg SC DAILY [facility] PRN Reason: Protocol Furosemide (Lasix) 20 mg PO DAILY [facility] Ceftriaxone Sodium 1 gm/ (Sodium Chloride) 50 mls @ 100 mls/hr IVPB DAILY@1700 [facility] Lactic Acid (Lac-Hydrin 12% Lotion (225 G)) 1 applic TOP TID [facility] Metoprolol Tartrate (Lopressor) 25 mg PO Q12H [facility] Last Admin: 04/30/17 23:45 Dose: 25 mg Tramadol HCl (Ultram) 50 mg PO BID PRN PRN Reason: Pain, moderate (4-7) Last Admin: 04/30/17 23:46 Dose: 50 mg Physical Exam - Constitutional Appears: Non-toxic, No Acute Distress - Head Exam Head Exam: ATRAUMATIC - Eye Exam Eye Exam: EOMI. absent: Scleral icterus - ENT Exam ENT Exam: Mucous Membranes Moist - Respiratory Exam Respiratory Exam: NORMAL BREATHING PATTERN. absent: Accessory Muscle Use, Respiratory Distress - Cardiovascular Exam Cardiovascular Exam: +S1, +S2. absent: Bradycardia, Tachycardia - Extremities Exam Additional comments: +2 pitting pedal edema palpable DP pulses bilateral left big toe signs of fungal involvement - Neurological Exam Neurological exam: Alert, Oriented x3 - Psychiatric Exam Psychiatric exam: Normal Affect - Skin Skin Exam: Intact, Warm Results - Vital Signs Recent Vital Signs: Last Vital Signs Temp 96.8 F L 04/30/17 21:28 Pulse 83 05/01/17 00:16 Resp 20 05/01/17 00:16 BP 127/73 04/30/17 23:45 Pulse Ox 96 05/01/17 00:16 Assessment & Plan - Assessment and Plan (Free Text) Assessment: 87M pmhx HTN, , s/p TAVR, admitted for bilateral lower extremity pain Plan: - no acute findings of DVT - Physical therapy for deconditioning - pain control PRN - f/u Ortho and vascular recs - recommend further diabetes workup - medical management per primary team - no surgical intervention at this time - reconsult as needed- thank you for allowing us to partake in this patients care - will d/w Dr. Mg surgical attending Michael Germain PGY1
[2017-05-01] MEDS: Albuterol-Ipratrop 3 mg / 0.5 (3 ml) UD INH SCH ×4 (08:11→21:22)
[2017-05-01] MEDS: Enoxaparin 40 mg Syringe SC SCH (09:25)
--- NOTE | 2017-05-01 13:36 | CP.PCM.CON ---
History of Present Illness - History of Present Illness History of Present Illness: 87M initially in hospital for b/l LE pain and tingling and is now in TCU. . Pt hx significant for tobacco use, c/o b/l LE L worse than right that has been going on for 2 month. Pain continues and feels like "mosquito bites" however better than before when legs hang off the side of the bed. worse when legs are up. Hx of MRI of R LE, pt states muscle was torn. Doppler during this visit is negative for DVT. Denies: fevers, chills, chest pain, shortness of breath, nausea, vomiting, diarrhea, IRENE PMH: HTN, NIDDM, gout, aortic stenosis PSH: TAVR ALL: NKDA SocialHx: ETOH 1 bottle per day, hx of tobacco use quit 2015, denies recreational drug use Review of Systems - Review of Systems Systems not reviewed;Unavailable: Language Barrier - Constitutional Constitutional: As Per HPI - EENT Eyes: absent: As Per HPI, Blind Spots, Blurred Vision, Change in Vision, Decreased Night Vision, Diplopia, Discharge, Dry Eye, Exophthalmos, Floaters, Irritation, Itchy Eyes, Loss of Peripheral Vision, Pain, Photophobia, Requires Corrective Lenses, Sees Flashes, Spots in Vision, Tunnel Vision, Other Visual Disturbances, Loss of Vision, Other Ears: absent: As Per HPI, Decreased Hearing, Ear Discharge, Ear Pain, Tinnitus, Abnormal Hearing, Disequilibrium, Dizziness, Other Nose/Mouth/Throat: absent: As Per HPI, Epistaxis, Nasal Congestion, Nasal Discharge, Nasal Obstruction, Nasal Trauma, Nose Pain, Post Nasal Drip, Sinus Pain, Sinus Pressure, Bleeding Gums, Change in Voice, Dental Pain, Dry Mouth, Dysphagia, Halitosis, Hoarsness, Lip Swelling, Mouth Lesions, Mouth Pain, Odynophagia, Sore Throat, Throat Swelling, Tongue Swelling, Facial Pain, Neck Pain, Neck Mass, Other - Cardiovascular Cardiovascular: As Per HPI - Respiratory Respiratory: As Per HPI - Gastrointestinal Gastrointestinal: absent: As Per HPI, Abdominal Pain, Belching, Bloating, Change in Bowel Habits, Change in Stool Character, Coffee Ground Emesis, Constipation, Cramping, Diarrhea, Dyspepsia, Dysphagia, Early Satiety, Excessive Flatus, Fecal Incontinence, Heartburn, Hematemesis, Hematochezia, Loose Stools, Melena, Nausea, Odynophagia, Temesmus, Vomiting, Other - Genitourinary Genitourinary: absent: As Per HPI, Change in Urinary Stream, Difficulty Urinating, Dysuria, Flank Pain, Hematuria, Pyuria, Nocturia, Urinary Incontinence, Urinary Frequency, Urinary Hesitance, Urinary Urgency, Voiding Freq/Small Amts, Freq UTI, Hx Renal/Bladder Calculi, Hx /Renal Surgery, Bladder Distension, Other - Musculoskeletal Musculoskeletal: As Per HPI - Integumentary Integumentary: As Per HPI - Neurological Neurological: absent: As Per HPI, Abnormal Gait, Abnormal Hearing, Abnormal Movements, Abnormal Speech, Behavioral Changes, Burning Sensations, Confusion, Convulsions, Disequilibrium, Dizziness, Numbness, Focal Weakness, Frequent Falls , Headaches, Lack of Coordination, Loss of Vision, Memory Loss, Paresthesias, Radicular Pain, Restless Legs, Sensory Deficit, Syncope, Tingling, Tremor, Vertigo, Weakness, Other Visual Disturbances, Other - Psychiatric Psychiatric: absent: As Per HPI, Abnormal Sleep Pattern, Anhedonia, Anxiety, Auditory Hallucinations, Behavioral Changes, Change in Appetite, Change in Libido, Confusion, Depression, Difficulty Concentrating, Hallucinations, Homicidal Ideation, Hopelessness, Irritability, Memory Loss, Mood Swings, Panic Attacks, Paranoia, Suicidal Ideation, Visual Hallucinations, Tactile Hallucinations, Other - Hematologic/Lymphatic Hematologic: absent: As Per HPI, Easy Bleeding, Easy Bruising, Lymphadenopathy, Other Past Patient History - Past Medical History & Family History Past Medical History?: Yes - Past Social History Smoking Status: Former Smoker - CARDIAC Hx Hypertension: Yes - PULMONARY Hx Chronic Obstructive Pulmonary Disease (COPD): Yes - NEUROLOGICAL Hx Neurological Disorder: No - HEENT Hx HEENT Problems: No - RENAL Hx Chronic Kidney Disease: No - ENDOCRINE/METABOLIC Hx Endocrine Disorders: No - HEMATOLOGICAL/ONCOLOGICAL Hx Blood Disorders: No - INTEGUMENTARY Hx Dermatological Problems: No - MUSCULOSKELETAL/RHEUMATOLOGICAL Hx Falls: No - GASTROINTESTINAL Hx Gastrointestinal Disorders: No - GENITOURINARY/GYNECOLOGICAL Hx Genitourinary Disorders: No - PSYCHIATRIC Hx Substance Use: No - SURGICAL HISTORY Hx Surgeries: No Other/Comment: heart valve replacement - ANESTHESIA Hx Anesthesia: Yes Hx Anesthesia Reactions: No Hx Malignant Hyperthermia: No Meds Allergies/Adverse Reactions: Allergies Allergy/AdvReac Type Severity Reaction Status Date / Time No Known Allergies Allergy Verified 07/28/16 15:35 - Medications Medications: Current Medications Acetaminophen (Tylenol 325mg Tab) 650 mg PO Q6 PRN PRN Reason: Pain, Mild (1-3) Albuterol Sulfate (Albuterol 0.083% Inhal Olivia (2.5 Mg/3 Ml) Ud) 2.5 mg INH RQ4 PRN PRN Reason: Shortness of Breath Albuterol/Ipratropium (Duoneb 3 Mg/0.5 Mg (3 Ml) Ud) 3 ml INH RQID [facility] Last Admin: 05/01/17 11:46 Dose: Not Given Allopurinol (Zyloprim) 300 mg PO DAILY [facility] Last Admin: 05/01/17 09:26 Dose: 300 mg Amlodipine Besylate (Norvasc) 10 mg PO DAILY [facility] Last Admin: 05/01/17 09:26 Dose: 10 mg Aspirin (Ecotrin) 81 mg PO DAILY [facility] Last Admin: 05/01/17 09:26 Dose: 81 mg Atorvastatin Calcium (Lipitor) 20 mg PO QPM [facility] Enalapril Maleate (Vasotec) 5 mg PO DAILY [facility] Last Admin: 05/01/17 09:26 Dose: 5 mg Enoxaparin Sodium (Lovenox) 40 mg SC DAILY [facility] PRN Reason: Protocol Last Admin: 05/01/17 09:25 Dose: 40 mg Furosemide (Lasix) 20 mg PO DAILY [facility] Last Admin: 05/01/17 09:26 Dose: 20 mg Ceftriaxone Sodium 1 gm/ (Sodium Chloride) 50 mls @ 100 mls/hr IVPB DAILY@1700 [facility] Lactic Acid (Lac-Hydrin 12% Lotion (225 G)) 1 applic TOP TID [facility] Last Admin: 05/01/17 11:39 Dose: Not Given Metoprolol Tartrate (Lopressor) 25 mg PO Q12H [facility] Last Admin: 05/01/17 09:27 Dose: 25 mg Tramadol HCl (Ultram) 50 mg PO BID PRN PRN Reason: Pain, moderate (4-7) Last Admin: 05/01/17 09:28 Dose: 50 mg Physical Exam - Constitutional Appears: Non-toxic, Chronically Ill - Head Exam Head Exam: NORMOCEPHALIC - Eye Exam Eye Exam: PERRL - ENT Exam ENT Exam: Mucous Membranes Dry - Neck Exam Neck exam: Negative for: Lymphadenopathy - Respiratory Exam Respiratory Exam: Decreased Breath Sounds - Cardiovascular Exam Cardiovascular Exam: REGULAR RHYTHM - GI/Abdominal Exam GI & Abdominal Exam: Diminished Bowel Sounds - Rectal Exam Rectal Exam: Deferred - Exam Exam: NORMAL INSPECTION - Extremities Exam Extremities exam: Negative for: pedal edema - Back Exam Back exam: absent: CVA tenderness (L), CVA tenderness (R) - Neurological Exam Neurological exam: Alert, CN II-XII Intact, Oriented x3, Reflexes Normal - Psychiatric Exam Psychiatric exam: Depressed Results - Vital Signs Recent Vital Signs: Last Vital Signs Temp 98.2 F 05/01/17 09:33 Pulse 92 H 05/01/17 09:33 Resp 20 05/01/17 09:33 BP 138/78 05/01/17 09:33 Pulse Ox 93 L 05/01/17 09:33 Assessment & Plan (1) Hypoxemia Status: Acute Priority: High (2) Leg pain Status: Acute (3) Leukocytosis Status: Acute (4) Venous stasis of both lower extremities Status: Acute (5) Aortic stenosis Status: Chronic Priority: High (6) Cough Status: Chronic Priority: High (7) Leg edema Status: Chronic Priority: High - Assessment and Plan (Free Text) Assessment: cont rx exac COPD will discuss with Dr Dickens overall improved
--- NOTE | 2017-05-01 15:45 | CP.PCM.HP ---
History of Present Illness - History of Present Illness History of Present Illness: 87 yo admitted for lower extremity pain Present on Admission - Present on Admission Any Indicators Present on Admission: No Past Patient History - Past Medical History & Family History Past Medical History?: Yes - Past Social History Smoking Status: Former Smoker - CARDIAC Hx Hypertension: Yes - PULMONARY Hx Chronic Obstructive Pulmonary Disease (COPD): Yes - NEUROLOGICAL Hx Neurological Disorder: No - HEENT Hx HEENT Problems: No - RENAL Hx Chronic Kidney Disease: No - ENDOCRINE/METABOLIC Hx Endocrine Disorders: No - HEMATOLOGICAL/ONCOLOGICAL Hx Blood Disorders: No - INTEGUMENTARY Hx Dermatological Problems: No - MUSCULOSKELETAL/RHEUMATOLOGICAL Hx Falls: No - GASTROINTESTINAL Hx Gastrointestinal Disorders: No - GENITOURINARY/GYNECOLOGICAL Hx Genitourinary Disorders: No - PSYCHIATRIC Hx Substance Use: No - SURGICAL HISTORY Hx Surgeries: No Other/Comment: heart valve replacement - ANESTHESIA Hx Anesthesia: Yes Hx Anesthesia Reactions: No Hx Malignant Hyperthermia: No Meds Allergies/Adverse Reactions: Allergies Allergy/AdvReac Type Severity Reaction Status Date / Time No Known Allergies Allergy Verified 07/28/16 15:35 Results - Vital Signs Recent Vital Signs: Last Vital Signs Temp 98.2 F 05/01/17 09:33 Pulse 92 H 05/01/17 09:33 Resp 20 05/01/17 09:33 BP 138/78 05/01/17 09:33 Pulse Ox 93 L 05/01/17 09:33 Assessment & Plan - Assessment and Plan (Free Text) Assessment: Lower extremity pain etiol? orthopedic vs vascular Ortho Vascular Physiatry Arterial dopplers low extremity COPD Smoker Pulmonary HTN Prediabetes S/P TAVR Cardiology WBC elevated cellulitis??? ID - Date & Time Date: 05/01/17 Time: 22:22
[2017-05-01] MEDS ORDERED: cefTRIAXone IV 1 gm in Dextros 50 ML BAG IVPB SCH (17:00)
--- NOTE | 2017-05-01 17:05 | CP.PCM.CON ---
History of Present Illness - History of Present Illness History of Present Illness: Full consult note to follow. Had PFT done today which does corroborate clinical suspicions of moderately severe obstructive lung disease. To continue inhalation therapy and supplemental oxygen as needed. Consider alternate antihypertensive medication as amlodipine may predispose to increased pedal edema. Echocardiogram was a poor study because of body habitus and RV function could not be well defined. He has progressed well while on the acute medical floor and currently offers no current complaints of dyspnea while at rest. His pedal edema has receded slightly but he continues to have complaints of discomfort. His oxygen saturation has been normal. Review of Systems - Review of Systems All systems: reviewed and no additional remarkable complaints except - Cardiovascular Cardiovascular: Leg Edema - Respiratory Respiratory: Cough, Chest Congestion Past Patient History - Past Medical History & Family History Past Medical History?: Yes - Past Social History Smoking Status: Former Smoker Chewing Tobacco Use: No Cigar Use: No Alcohol: > 2 Drinks/Day Drugs: Denies Home Situation {Lives}: With Family - CARDIAC Hx Hypertension: Yes - PULMONARY Hx Bronchitis: Yes Hx Chronic Obstructive Pulmonary Disease (COPD): Yes - NEUROLOGICAL Hx Neurological Disorder: No - HEENT Hx HEENT Problems: No - RENAL Hx Chronic Kidney Disease: No - ENDOCRINE/METABOLIC Hx Endocrine Disorders: No - HEMATOLOGICAL/ONCOLOGICAL Hx Blood Disorders: No - INTEGUMENTARY Hx Dermatological Problems: No - MUSCULOSKELETAL/RHEUMATOLOGICAL Hx Falls: No Other/Comment: Painful swelling of both lower extremities - GASTROINTESTINAL Hx Gastrointestinal Disorders: No - GENITOURINARY/GYNECOLOGICAL Hx Genitourinary Disorders: No - PSYCHIATRIC Hx Psychophysiologic Disorder: No Hx Substance Use: No - SURGICAL HISTORY Hx Surgeries: No Other/Comment: heart valve replacement - ANESTHESIA Hx Anesthesia: Yes Hx Anesthesia Reactions: No Hx Malignant Hyperthermia: No Meds Allergies/Adverse Reactions: Allergies Allergy/AdvReac Type Severity Reaction Status Date / Time No Known Allergies Allergy Verified 07/28/16 15:35 - Medications Medications: Current Medications Acetaminophen (Tylenol 325mg Tab) 650 mg PO Q6 PRN PRN Reason: Pain, Mild (1-3) Albuterol Sulfate (Albuterol 0.083% Inhal Olivia (2.5 Mg/3 Ml) Ud) 2.5 mg INH RQ4 PRN PRN Reason: Shortness of Breath Albuterol/Ipratropium (Duoneb 3 Mg/0.5 Mg (3 Ml) Ud) 3 ml INH RQID [facility] Last Admin: 05/01/17 16:03 Dose: 3 ml Allopurinol (Zyloprim) 300 mg PO DAILY [facility] Last Admin: 05/01/17 09:26 Dose: 300 mg Amlodipine Besylate (Norvasc) 10 mg PO DAILY [facility] Last Admin: 05/01/17 09:26 Dose: 10 mg Aspirin (Ecotrin) 81 mg PO DAILY [facility] Last Admin: 05/01/17 09:26 Dose: 81 mg Atorvastatin Calcium (Lipitor) 20 mg PO QPM [facility] Enalapril Maleate (Vasotec) 5 mg PO DAILY [facility] Last Admin: 05/01/17 09:26 Dose: 5 mg Enoxaparin Sodium (Lovenox) 40 mg SC DAILY [facility] PRN Reason: Protocol Last Admin: 05/01/17 09:25 Dose: 40 mg Furosemide (Lasix) 20 mg PO DAILY [facility] Last Admin: 05/01/17 09:26 Dose: 20 mg Ceftriaxone Sodium 1 gm/ (Sodium Chloride) 50 mls @ 100 mls/hr IVPB DAILY@1700 [facility] Lactic Acid (Lac-Hydrin 12% Lotion (225 G)) 1 applic TOP TID [facility] Last Admin: 05/01/17 13:39 Dose: 1 unit Metoprolol Tartrate (Lopressor) 25 mg PO Q12H [facility] Last Admin: 05/01/17 09:27 Dose: 25 mg Tramadol HCl (Ultram) 50 mg PO BID PRN PRN Reason: Pain, moderate (4-7) Last Admin: 05/01/17 09:28 Dose: 50 mg Physical Exam - Additional Findings Additional findings: Elderly male in no acute distress. Pharynx is pink and mucous membranes are moist. Neck is supple and trachea is midline. No visible neck vein distention. No palpable lymphadenopathy. No dullness on chest percussion. Equal expansion. Breath sounds are diminished bilaterally. Some rhonchi are heard in both lung hanks. Few scattered dry rales are heard in the bases posteriorly. No audible wheezing. Heart sounds are distant. Rhythm is regular. The abdomen is soft and nontender. Bowel sounds are normal. 2+ dependent edema both lower extremities. No cyanosis. Results - Vital Signs Recent Vital Signs: Last Vital Signs Temp 98.2 F 05/01/17 09:33 Pulse 92 H 05/01/17 09:33 Resp 20 02/02/18 09:33 BP 138/78 05/01/17 09:33 Pulse Ox 93 L 05/01/17 09:33 Assessment & Plan (1) COPD (chronic obstructive pulmonary disease) with chronic bronchitis Status: Chronic Priority: High Comment: Acute exacerbation currently on antibiotic therapy. Continue aerosol therapy and supplemental oxygen as needed. Echocardiogram did not clearly show right ventricular function. (2) Leg edema Status: Chronic Priority: High Comment: Both lower extremities, without evidence of DVT. - Date & Time Date: 05/01/17 Time: 17:06
--- NOTE | 2017-05-01 17:08 | US ---
PROCEDURE: Aortic and iliac duplex venous sonography. HISTORY: Bilateral leg pain, PVD COMPARISON: 2017. Lower extremity arterial duplex sonography TECHNIQUE: Real-time ultrasound scan of the aorta and iliac vessels with color flow, spectral waveform analysis performed per institutional protocol FINDINGS: Proximal aorta 2.2 x 2.8 cm. Mid aorta of 1.8 cm in diameter. Distal abdominal aorta 1.1 x 1.4 cm. Right common iliac artery 1.1 x 1.5 cm. Left common iliac 1 x 1.5 cm. IMPRESSION: Non aneurysmal abdominal aorta. No significant abnormalities within proximal iliac arteries.
[2017-05-02] MEDS: Albuterol-Ipratrop 3 mg / 0.5 (3 ml) UD INH SCH ×4 (07:39→20:50)
[2017-05-02] MEDS: Enoxaparin 40 mg Syringe SC SCH (08:52)
--- NOTE | 2017-05-02 12:09 | CP.PCM.PN ---
Subjective - Date & Time of Evaluation Date of Evaluation: 05/02/17 Time of Evaluation: 12:06 - Subjective Subjective: The patient is seen on rounds this morning while in the gym. He continues to complain about discomfort in both lower extremities. He is wearing AE hose on both lower extremities but swelling is present above the stockings. He continues to have some degree of congested cough with minimal sputum production. Breath sounds are markedly diminished in both lungs with scattered sonorous rhonchi. No audible wheezing. Moderately severe chronic active pulmonary disease (primarily chronic bronchitis ) with exacerbation. Continue aerosol therapy with albuterol/ipratropium 4 times daily. We'll reduce dosage of amlodipine and increase enalapril in an attempt to reduce dependent edema. Continue current antibiotic therapy. Objective - Vital Signs/Intake and Output Vital Signs (last 24 hours): Temp Pulse Resp BP Pulse Ox 98.1 F 82 20 136/73 95 05/02/17 08:13 05/02/17 08:53 05/02/17 08:13 05/02/17 08:54 05/02/17 08:13 - Medications Medications: Current Medications Acetaminophen (Tylenol 325mg Tab) 650 mg PO Q6 PRN PRN Reason: Pain, Mild (1-3) Albuterol Sulfate (Albuterol 0.083% Inhal Olivia (2.5 Mg/3 Ml) Ud) 2.5 mg INH RQ4 PRN PRN Reason: Shortness of Breath Albuterol/Ipratropium (Duoneb 3 Mg/0.5 Mg (3 Ml) Ud) 3 ml INH RQID [facility] Last Admin: 05/02/17 11:52 Dose: 3 ml Allopurinol (Zyloprim) 300 mg PO DAILY [facility] Last Admin: 05/02/17 08:54 Dose: 300 mg Amlodipine Besylate (Norvasc) 5 mg PO DAILY [facility] Last Admin: 05/02/17 11:38 Dose: Not Given Aspirin (Ecotrin) 81 mg PO DAILY [facility] Last Admin: 05/02/17 08:55 Dose: 81 mg Atorvastatin Calcium (Lipitor) 20 mg PO QPM [facility] Last Admin: 05/01/17 18:14 Dose: 20 mg Enalapril Maleate (Vasotec) 10 mg PO DAILY [facility] Last Admin: 05/02/17 11:33 Dose: Not Given Enoxaparin Sodium (Lovenox) 40 mg SC DAILY [facility] PRN Reason: Protocol Last Admin: 05/02/17 08:52 Dose: 40 mg Furosemide (Lasix) 20 mg PO DAILY [facility] Last Admin: 05/02/17 08:54 Dose: 20 mg Ceftriaxone Sodium 1 gm/ (Sodium Chloride) 50 mls @ 100 mls/hr IVPB DAILY@1700 [facility] Last Admin: 05/01/17 18:14 Dose: 100 mls/hr Lactic Acid (Lac-Hydrin 12% Lotion (225 G)) 1 applic TOP TID [facility] Last Admin: 05/02/17 08:55 Dose: 1 unit Metoprolol Tartrate (Lopressor) 25 mg PO Q12H [facility] Last Admin: 05/02/17 08:52 Dose: 25 mg Tramadol HCl (Ultram) 50 mg PO BID PRN PRN Reason: Pain, moderate (4-7) Last Admin: 05/02/17 08:58 Dose: 50 mg Assessment and Plan (1) COPD (chronic obstructive pulmonary disease) with chronic bronchitis Status: Chronic
[2017-05-02] MEDS ORDERED: Chlorhexidine Gluconate 1 APPL/PKT TP ONE (17:15)
[2017-05-02] MEDS: Magnesium Hydroxide Susp 30 ml UD PO SCH (17:16)
--- NOTE | 2017-05-02 19:06 | CP.PCM.PN ---
Subjective - Date & Time of Evaluation Date of Evaluation: 05/02/17 Time of Evaluation: 22:22 - Subjective Subjective: Pulmonary note appreciated Objective - Vital Signs/Intake and Output Vital Signs (last 24 hours): Temp Pulse Resp BP Pulse Ox 97.7 F 73 20 132/66 94 L 05/02/17 16:45 05/02/17 16:45 05/02/17 16:45 05/02/17 16:45 05/02/17 16:45 - Medications Medications: Current Medications Acetaminophen (Tylenol 325mg Tab) 650 mg PO Q6 PRN PRN Reason: Pain, Mild (1-3) Albuterol Sulfate (Albuterol 0.083% Inhal Olivia (2.5 Mg/3 Ml) Ud) 2.5 mg INH RQ4 PRN PRN Reason: Shortness of Breath Albuterol/Ipratropium (Duoneb 3 Mg/0.5 Mg (3 Ml) Ud) 3 ml INH RQID [facility] Last Admin: 05/02/17 16:29 Dose: 3 ml Allopurinol (Zyloprim) 300 mg PO DAILY [facility] Last Admin: 05/02/17 08:54 Dose: 300 mg Amlodipine Besylate (Norvasc) 5 mg PO DAILY [facility] Last Admin: 05/02/17 11:38 Dose: Not Given Aspirin (Ecotrin) 81 mg PO DAILY [facility] Last Admin: 05/02/17 08:55 Dose: 81 mg Atorvastatin Calcium (Lipitor) 20 mg PO QPM [facility] Last Admin: 05/02/17 18:10 Dose: 20 mg Bisacodyl (Dulcolax) 10 mg [place] DAILY PRN PRN Reason: Constipation Last Admin: 05/02/17 17:16 Dose: 10 mg Enalapril Maleate (Vasotec) 10 mg PO DAILY [facility] Last Admin: 05/02/17 11:33 Dose: Not Given Enoxaparin Sodium (Lovenox) 40 mg SC DAILY [facility] PRN Reason: Protocol Last Admin: 05/02/17 08:52 Dose: 40 mg Furosemide (Lasix) 20 mg PO DAILY [facility] Last Admin: 05/02/17 08:54 Dose: 20 mg Ceftriaxone Sodium 1 gm/ (Sodium Chloride) 50 mls @ 100 mls/hr IVPB DAILY@1700 [facility] Last Admin: 05/02/17 16:12 Dose: 100 mls/hr Lactic Acid (Lac-Hydrin 12% Lotion (225 G)) 1 applic TOP TID@0900,1700,2200 [facility] Last Admin: 05/02/17 16:19 Dose: 1 applic Magnesium Hydroxide (Milk Of Magnesia) 30 ml PO DAILY [facility] Last Admin: 05/02/17 17:16 Dose: 30 ml Metoprolol Tartrate (Lopressor) 25 mg PO Q12H [facility] Last Admin: 05/02/17 08:52 Dose: 25 mg Tramadol HCl (Ultram) 50 mg PO BID PRN PRN Reason: Pain, moderate (4-7) Last Admin: 05/02/17 08:58 Dose: 50 mg - Respiratory Exam Respiratory Exam: NORMAL BREATHING PATTERN - Cardiovascular Exam Cardiovascular Exam: REGULAR RHYTHM - GI/Abdominal Exam GI & Abdominal Exam: Normal Bowel Sounds Assessment and Plan - Assessment and Plan (Free Text) Assessment: Lower extremity pain etiol? Neurological vs orthopedic vs vascular Neuro Ortho Vascular Physiatry Arterial dopplers low extremity and abdomen wnl COPD Smoker Pulmonary HTN Prediabetes S/P TAVR Cardiology WBC elevated cellulitis??? ID
[2017-05-03 07:05] LABS: BASO # 0.1 K/uL (0.0-0.2); BASO % 0.9 % (0.0-2.0); EOS # 0.1 K/uL (0.0-0.7); EOS % 1.4 % (0.0-4.0); HEMOGLOBIN 12.2 g/dL (12.0-18.0); LYMPH % 11.4 % (20.0-40.0); MEAN CELL VOLUME 100.5 fl (80.0-94.0); MEAN CORPUSCULAR HEMOGLOBIN 33.7 pg (27.0-31.0); MEAN CORPUSCULAR HGB CONC 33.5 g/dL (33.0-37.0); MEAN PLATELET VOLUME 7.9 fl (7.2-11.7); MONO # 2.5 K/uL (0.0-0.8); MONO % 28.3 % (0.0-10.0); NEUT # 5.1 K/uL (1.8-7.0); PLATELET COUNT 156 K/uL (130-400); RBC 3.61 Mil/uL (4.40-5.90); WHITE BLOOD COUNT 8.7 K/uL (4.8-10.8)
[2017-05-03 07:31] LABS: ALB/GLOB RATIO 1.2 (1.0-2.1); ALBUMIN 3.8 g/dL (3.5-5.0); ALT/SGPT 42 U/L (21-72); AST/SGOT 37 U/L (17-59); BLOOD UREA NITROGEN 13 mg/dl (9-20); CALCIUM 9.1 mg/dL (8.4-10.2); GFR AFRICAN-AMERICAN > 60; GFR NON-AFRICAN AMERICAN > 60
[2017-05-03] MEDS: Albuterol-Ipratrop 3 mg / 0.5 (3 ml) UD INH SCH ×4 (07:31→19:34)
[2017-05-03] MEDS: Magnesium Hydroxide Susp 30 ml UD PO SCH (08:38)
[2017-05-03] MEDS: Enoxaparin 40 mg Syringe SC SCH (08:39)
--- NOTE | 2017-05-03 12:40 | CP.PCM.CON ---
History of Present Illness - History of Present Illness History of Present Illness: Mr. Velez is an 87-year-old man with a past medical history of hypertension , dyslipidemia, gout, CHF, who was admitted for RLE pain that he has had for months. He states that he has had MRIs, ultrasounds and other tests done, but still has not had an answer for why he has pain. Review of Systems - Review of Systems All systems: reviewed and no additional remarkable complaints except Past Patient History - Past Medical History & Family History Past Medical History?: Yes - Past Social History Smoking Status: Former Smoker Chewing Tobacco Use: No Cigar Use: No Alcohol: > 2 Drinks/Day Drugs: Denies Home Situation {Lives}: With Family - CARDIAC Hx Hypertension: Yes - PULMONARY Hx Bronchitis: Yes Hx Chronic Obstructive Pulmonary Disease (COPD): Yes - NEUROLOGICAL Hx Neurological Disorder: No - HEENT Hx HEENT Problems: No - RENAL Hx Chronic Kidney Disease: No - ENDOCRINE/METABOLIC Hx Endocrine Disorders: No - HEMATOLOGICAL/ONCOLOGICAL Hx Blood Disorders: No - INTEGUMENTARY Hx Dermatological Problems: No - MUSCULOSKELETAL/RHEUMATOLOGICAL Hx Falls: No Other/Comment: Painful swelling of both lower extremities - GASTROINTESTINAL Hx Gastrointestinal Disorders: No - GENITOURINARY/GYNECOLOGICAL Hx Genitourinary Disorders: No - PSYCHIATRIC Hx Psychophysiologic Disorder: No Hx Substance Use: No - SURGICAL HISTORY Hx Surgeries: No Other/Comment: heart valve replacement - ANESTHESIA Hx Anesthesia: Yes Hx Anesthesia Reactions: No Hx Malignant Hyperthermia: No Meds Allergies/Adverse Reactions: Allergies Allergy/AdvReac Type Severity Reaction Status Date / Time No Known Allergies Allergy Verified 07/28/16 15:35 - Medications Medications: Current Medications Acetaminophen (Tylenol 325mg Tab) 650 mg PO Q6 PRN PRN Reason: Pain, Mild (1-3) Albuterol Sulfate (Albuterol 0.083% Inhal Olivia (2.5 Mg/3 Ml) Ud) 2.5 mg INH RQ4 PRN PRN Reason: Shortness of Breath Albuterol/Ipratropium (Duoneb 3 Mg/0.5 Mg (3 Ml) Ud) 3 ml INH RQID [facility] Last Admin: 05/03/17 11:41 Dose: 3 ml Allopurinol (Zyloprim) 300 mg PO DAILY [facility] Last Admin: 05/03/17 08:38 Dose: 300 mg Amlodipine Besylate (Norvasc) 5 mg PO DAILY [facility] Last Admin: 05/03/17 08:38 Dose: 5 mg Aspirin (Ecotrin) 81 mg PO DAILY [facility] Last Admin: 05/03/17 08:38 Dose: 81 mg Atorvastatin Calcium (Lipitor) 20 mg PO QPM [facility] Last Admin: 05/02/17 18:10 Dose: 20 mg Bisacodyl (Dulcolax) 10 mg [place] DAILY PRN PRN Reason: Constipation Last Admin: 05/02/17 17:16 Dose: 10 mg Enalapril Maleate (Vasotec) 10 mg PO DAILY [facility] [place] Last Admin: 05/03/17 08:38 Dose: 10 mg Enoxaparin Sodium (Lovenox) 40 mg SC DAILY [facility] PRN Reason: Protocol Last Admin: 05/03/17 08:39 Dose: 40 mg Furosemide (Lasix) 20 mg PO DAILY [facility] [place] Last Admin: 05/03/17 08:38 Dose: 20 mg Ceftriaxone Sodium 1 gm/ (Sodium Chloride) 50 mls @ 100 mls/hr IVPB DAILY@1700 [facility] [place] Last Admin: 05/02/17 16:12 Dose: 100 mls/hr Lactic Acid (Lac-Hydrin 12% Lotion (225 G)) 1 applic TOP TID@0900,1700,2200 [facility] [place] Last Admin: 05/03/17 08:39 Dose: 1 applic Magnesium Hydroxide (Milk Of Magnesia) 30 ml PO DAILY [facility] Last Admin: 05/03/17 08:38 Dose: Not Given Metoprolol Tartrate (Lopressor) 25 mg PO Q12H [facility] [place] Last Admin: 05/03/17 08:38 Dose: 25 mg Tramadol HCl (Ultram) 50 mg PO BID PRN PRN Reason: Pain, moderate (4-7) Last Admin: 05/03/17 08:50 Dose: 50 mg Physical Exam - Constitutional Appears: Well - Head Exam Head Exam: ATRAUMATIC, NORMAL INSPECTION, NORMOCEPHALIC - Eye Exam Eye Exam: EOMI, Normal appearance, PERRL - ENT Exam ENT Exam: Mucous Membranes Moist, Normal Exam - Cardiovascular Exam Cardiovascular Exam: REGULAR RHYTHM, +S1, +S2 - GI/Abdominal Exam GI & Abdominal Exam: Normal Bowel Sounds, Soft. absent: Tenderness - Rectal Exam Rectal Exam: Deferred - Neurological Exam Neurological exam: Abnormal Gait, Alert, CN II-XII Intact, Oriented x3, Reflexes Normal Additional comments: No focal motor or sensory deficits noted. RLE is has pitting edema and some arthritic changes. No neurological deficits noted. Results - Vital Signs Recent Vital Signs: Last Vital Signs Temp 97.0 F L 05/03/17 08:13 Pulse 91 H 05/03/17 08:38 Resp 20 05/03/17 08:13 BP 138/57 L 05/03/17 08:38 Pulse Ox 94 L 05/03/17 08:13 - Labs Result Diagrams: 05/03/17 05:30 05/03/17 05:30 Labs: Laboratory Results - last 24 hr 05/03/17 05/03/17 05:30 05:30 WBC 8.7 RBC 3.61 L Hgb 12.2 Hct 36.3 MCV 100.5 H MCH 33.7 H MCHC 33.5 RDW 14.0 Plt Count 156 MPV 7.9 Neut % (Auto) 58.0 Lymph % (Auto) 11.4 L Mobile % (Auto) 28.3 H Eos % (Auto) 1.4 Baso % (Auto) 0.9 Neut # (Auto) 5.1 Lymph # (Auto) 1.0 Mobile # (Auto) 2.5 H Eos # (Auto) 0.1 Baso # (Auto) 0.1 Sodium 130 L Potassium 4.5 Chloride 90 L Carbon Dioxide 33 H Anion Gap 12 BUN 13 Creatinine 0.7 L Est GFR ( Amer) > 60 Est GFR (Non-Af Amer) > 60 Random Glucose 117 H Calcium 9.1 Total Bilirubin 0.5 AST 37 ALT 42 Alkaline Phosphatase 68 Total Protein 7.1 Albumin 3.8 Globulin 3.3 Albumin/Globulin Ratio 1.2 Assessment & Plan (1) Leg pain Assessment and Plan: Likely due to significant swelling and possible neuropathy, but less likely neurologic in origin. Gabapentin 300 mg TID may be considered, but since it is just the right leg and does not match a specific peripheral neuropathy pattern, it is less likely. He may have nerve conduction studies done as an outpatient with Dr. Ethan Monterroso, if no other cause for the pain is found. Thank you. Status: Acute Priority: High
--- NOTE | 2017-05-03 14:21 | CP.PCM.PN ---
Subjective - Date & Time of Evaluation Date of Evaluation: 05/03/17 Time of Evaluation: 22:22 - Subjective Subjective: Still with pain?? Neuro note appreciated Objective - Vital Signs/Intake and Output Vital Signs (last 24 hours): Temp Pulse Resp BP Pulse Ox 97.0 F L 91 H 20 138/57 L 94 L 05/03/17 08:13 05/03/17 08:38 05/03/17 08:13 05/03/17 08:38 05/03/17 08:13 - Medications Medications: Current Medications Acetaminophen (Tylenol 325mg Tab) 650 mg PO Q6 PRN PRN Reason: Pain, Mild (1-3) Albuterol Sulfate (Albuterol 0.083% Inhal Olivia (2.5 Mg/3 Ml) Ud) 2.5 mg INH RQ4 PRN PRN Reason: Shortness of Breath Albuterol/Ipratropium (Duoneb 3 Mg/0.5 Mg (3 Ml) Ud) 3 ml INH RQID [facility] Last Admin: 05/03/17 11:41 Dose: 3 ml Allopurinol (Zyloprim) 300 mg PO DAILY [facility] Last Admin: 05/03/17 08:38 Dose: 300 mg Amlodipine Besylate (Norvasc) 5 mg PO DAILY [facility] Last Admin: 05/03/17 08:38 Dose: 5 mg Aspirin (Ecotrin) 81 mg PO DAILY [facility] Last Admin: 05/03/17 08:38 Dose: 81 mg Atorvastatin Calcium (Lipitor) 20 mg PO QPM [facility] Last Admin: 05/02/17 18:10 Dose: 20 mg Bisacodyl (Dulcolax) 10 mg [place] DAILY PRN PRN Reason: Constipation Last Admin: 05/02/17 17:16 Dose: 10 mg Enalapril Maleate (Vasotec) 10 mg PO DAILY [facility] Last Admin: 05/03/17 08:38 Dose: 10 mg Enoxaparin Sodium (Lovenox) 40 mg SC DAILY [facility] PRN Reason: Protocol Last Admin: 05/03/17 08:39 Dose: 40 mg Furosemide (Lasix) 20 mg PO DAILY [facility] Last Admin: 05/03/17 08:38 Dose: 20 mg Ceftriaxone Sodium 1 gm/ (Sodium Chloride) 50 mls @ 100 mls/hr IVPB DAILY@1700 [facility] Last Admin: 05/02/17 16:12 Dose: 100 mls/hr Lactic Acid (Lac-Hydrin 12% Lotion (225 G)) 1 applic TOP TID@0900,1700,2200 [facility] Last Admin: 05/03/17 08:39 Dose: 1 applic Magnesium Hydroxide (Milk Of Magnesia) 30 ml PO DAILY [facility] Last Admin: 05/03/17 08:38 Dose: Not Given Metoprolol Tartrate (Lopressor) 25 mg PO Q12H [facility] Last Admin: 05/03/17 08:38 Dose: 25 mg Tramadol HCl (Ultram) 50 mg PO BID PRN PRN Reason: Pain, moderate (4-7) Last Admin: 05/03/17 08:50 Dose: 50 mg - Labs Labs: 05/03/17 05:30 05/03/17 05:30 - Respiratory Exam Respiratory Exam: NORMAL BREATHING PATTERN - Cardiovascular Exam Cardiovascular Exam: REGULAR RHYTHM - GI/Abdominal Exam GI & Abdominal Exam: Normal Bowel Sounds Assessment and Plan - Assessment and Plan (Free Text) Assessment: Lower extremity pain etiol? Neurological vs orthopedic vs vascular Neuro Ortho Vascular Physiatry Arterial dopplers low extremity and abdomen wnl COPD Smoker Pulmonary HTN Prediabetes S/P TAVR Cardiology cellulitis??? ID
[2017-05-03 14:32] LABS: BANDS 1 % (0-2); BASOPHIL 1 % (0-2); EOSINOPHIL 1 % (0-7); LYMPHOCYTE 6 % (20-50); MONOCYTE 28 % (0-10); MYELOCYTE 2 % (0-0); NEUTROPHIL 61 % (42-75); PLATELET ESTIMATE NORMAL (NORMAL); TOTAL CELLS COUNTED 100
[2017-05-04] MEDS: Albuterol-Ipratrop 3 mg / 0.5 (3 ml) UD INH SCH ×4 (08:25→19:56)
[2017-05-04] MEDS: Enoxaparin 40 mg Syringe SC SCH (08:40)
[2017-05-04] MEDS: Magnesium Hydroxide Susp 30 ml UD PO SCH (08:41)
--- NOTE | 2017-05-04 10:44 | CP.PCM.PN ---
Subjective - Date & Time of Evaluation Date of Evaluation: 05/04/17 Time of Evaluation: 10:42 - Subjective Subjective: Mr. Velez was seen and examined at the bedside. He is alert, oriented. He is able to answer questions appropriately and follow commands. He states that he has the leg pain with movement of his legs. He further describe the pain as dull, and radiating to his toes. Sensation remains intact. He has the bilateral lower extremities kelsea stocking. There was no untoward events overnight. Objective - Vital Signs/Intake and Output Vital Signs (last 24 hours): Temp Pulse Resp BP Pulse Ox 99.5 F 78 20 120/62 99 05/04/17 08:20 05/04/17 08:39 05/04/17 08:20 05/04/17 08:39 05/04/17 08:20 - Medications Medications: Current Medications Acetaminophen (Tylenol 325mg Tab) 650 mg PO Q6 PRN PRN Reason: Pain, Mild (1-3) Albuterol Sulfate (Albuterol 0.083% Inhal Olivia (2.5 Mg/3 Ml) Ud) 2.5 mg INH RQ4 PRN PRN Reason: Shortness of Breath Albuterol/Ipratropium (Duoneb 3 Mg/0.5 Mg (3 Ml) Ud) 3 ml INH RQID [facility] Last Admin: 05/04/17 08:25 Dose: 3 ml Allopurinol (Zyloprim) 300 mg PO DAILY [facility] Last Admin: 05/04/17 08:39 Dose: 300 mg Amlodipine Besylate (Norvasc) 5 mg PO DAILY [facility] Last Admin: 05/04/17 08:39 Dose: 5 mg Aspirin (Ecotrin) 81 mg PO DAILY [facility] Last Admin: 05/04/17 08:39 Dose: 81 mg Atorvastatin Calcium (Lipitor) 20 mg PO QPM [facility] Last Admin: 05/03/17 17:05 Dose: 20 mg Bisacodyl (Dulcolax) 10 mg [place] DAILY PRN PRN Reason: Constipation Last Admin: 05/02/17 17:16 Dose: 10 mg Enalapril Maleate (Vasotec) 10 mg PO DAILY [facility] Last Admin: 05/04/17 08:39 Dose: 10 mg Furosemide (Lasix) 20 mg PO DAILY [facility] Last Admin: 02/05/18 08:39 Dose: 20 mg Gabapentin (Neurontin) 300 mg PO TID [facility] Ceftriaxone Sodium 1 gm/ (Sodium Chloride) 50 mls @ 100 mls/hr IVPB DAILY@1700 [facility] Last Admin: 05/03/17 17:05 Dose: 100 mls/hr Lactic Acid (Lac-Hydrin 12% Lotion (225 G)) 1 applic TOP TID@0900,1700,2200 [facility] Last Admin: 05/04/17 08:38 Dose: 1 applic Magnesium Hydroxide (Milk Of Magnesia) 30 ml PO DAILY [facility] Last Admin: 05/04/17 08:41 Dose: Not Given Metoprolol Tartrate (Lopressor) 25 mg PO Q12H [facility] Last Admin: 05/04/17 08:39 Dose: 25 mg Tramadol HCl (Ultram) 50 mg PO BID PRN PRN Reason: Pain, moderate (4-7) Last Admin: 05/04/17 08:45 Dose: 50 mg - Labs Labs: 05/03/17 05:30 05/03/17 05:30 - Constitutional Appears: No Acute Distress - Head Exam Head Exam: NORMAL INSPECTION - Neurological Exam Neurological Exam: Alert, Awake, Oriented x3 Neuro motor strength exam: Left Upper Extremity: 5, Right Upper Extremity: 5, Left Lower Extremity: 4, Right Lower Extremity: 4 Additional comments: He is able to answer and follow simple commands, but has pain in his BLE. Assessment and Plan (1) Leg pain Assessment & Plan: Case discussed with Dr. Gould, continue all current medical, physical, and occupational therapies. Recommend Gabapentin 300 mg PO TID if it is releiving the pain to do CLAIM[employer] COL[employer] with Dr. Tami Monterroso. Status: Acute
--- NOTE | 2017-05-04 11:14 | CP.PCM.PN ---
Subjective - Date & Time of Evaluation Date of Evaluation: 05/04/17 Time of Evaluation: 11:12 - Subjective Subjective: Seated on EOB. Still has dependant edema (less tense) and pain. Vital signs have been stable, adequate SpO2. PFT showed moderately severe obstructive lung disease. Initial CTA of the lungs on admission was less than adequate study. Echocardiogram was not very informative because of lung disease. Edema 1+ bilateral LE's. No cyanosis. No dullness on chest percussion, equal expansion. Breath sounds are very much diminished bilaterally. Scattered occasional sonorous rhonchi in lower lobes. No audible wheezing or bronchial breathing. Will request V/Q lung scan to insure there are no occult pulmonary emboli. Will reduce amlodipine to 2.5MG once daily. Objective - Vital Signs/Intake and Output Vital Signs (last 24 hours): Temp Pulse Resp BP Pulse Ox 99.5 F 78 20 120/62 99 05/04/17 08:20 05/04/17 08:39 05/04/17 08:20 05/04/17 08:39 05/04/17 08:20 - Medications Medications: Current Medications Acetaminophen (Tylenol 325mg Tab) 650 mg PO Q6 PRN PRN Reason: Pain, Mild (1-3) Albuterol Sulfate (Albuterol 0.083% Inhal Olivia (2.5 Mg/3 Ml) Ud) 2.5 mg INH RQ4 PRN PRN Reason: Shortness of Breath Albuterol/Ipratropium (Duoneb 3 Mg/0.5 Mg (3 Ml) Ud) 3 ml INH RQID [facility] Last Admin: 05/04/17 08:25 Dose: 3 ml Allopurinol (Zyloprim) 300 mg PO DAILY [facility] Last Admin: 05/04/17 08:39 Dose: 300 mg Amlodipine Besylate (Norvasc) 2.5 mg PO DAILY [facility] Aspirin (Ecotrin) 81 mg PO DAILY [facility] Last Admin: 05/04/17 08:39 Dose: 81 mg Atorvastatin Calcium (Lipitor) 20 mg PO QPM [facility] Last Admin: 05/03/17 17:05 Dose: 20 mg Bisacodyl (Dulcolax) 10 mg [place] DAILY PRN PRN Reason: Constipation Last Admin: 05/02/17 17:16 Dose: 10 mg Enalapril Maleate (Vasotec) 10 mg PO DAILY [facility] Last Admin: 05/04/17 08:39 Dose: 10 mg Furosemide (Lasix) 20 mg PO DAILY [facility] Last Admin: 05/04/17 08:39 Dose: 20 mg Gabapentin (Neurontin) 300 mg PO TID [facility] Ceftriaxone Sodium 1 gm/ (Sodium Chloride) 50 mls @ 100 mls/hr IVPB DAILY@1700 [facility] Last Admin: 05/03/17 17:05 Dose: 100 mls/hr Lactic Acid (Lac-Hydrin 12% Lotion (225 G)) 1 applic TOP TID@0900,1700,2200 [facility] Last Admin: 05/04/17 08:38 Dose: 1 applic Magnesium Hydroxide (Milk Of Magnesia) 30 ml PO DAILY [facility] Last Admin: 05/04/17 08:41 Dose: Not Given Metoprolol Tartrate (Lopressor) 25 mg PO Q12H [facility] Last Admin: 05/04/17 08:39 Dose: 25 mg Tramadol HCl (Ultram) 50 mg PO BID PRN PRN Reason: Pain, moderate (4-7) Last Admin: 05/04/17 08:45 Dose: 50 mg - Labs Labs: 05/03/17 05:30 05/03/17 05:30 Assessment and Plan (1) 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
--- NOTE | 2017-05-04 16:13 | NM ---
COMPARISON: 04/28/2017 CT pulmonary angiogram 04/27/2017 single-view chest TECHNIQUE: 42.2 MCi technetium 99-m DTPA aerosol. 5.5 mCI technetium 99-m MAA administered intravenously. FINDINGS: VENTILATION COMPONENT: Heterogeneous ventilation. Retention of radionuclide in the tracheobronchial tree and ingestion of radionuclide in the stomach, incidental findings PERFUSION COMPONENT: Heterogeneous distribution of radionuclide. No geographic, segmental, lobar abnormalities apparent on the present examination. IMPRESSION: Low probability ventilation perfusion scan for pulmonary embolism.
--- NOTE | 2017-05-04 20:03 | CP.PCM.CON ---
History of Present Illness - History of Present Illness History of Present Illness: Dr Madrigal PMR consultation on Khari Velez, born 1930, who has been admitted to the TCU. Bilateral, left >right calf pain. 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 Doppler did not reveal a significant DVT. VQ scan low prop heavy smoker (quit 2 years ago) and drinker, bottle of wine with meals No significant focal tenderness. No real limitations of ROM modalities and therapy to continue Past Patient History - Past Medical History & Family History Past Medical History?: Yes - Past Social History Smoking Status: Former Smoker Chewing Tobacco Use: No Cigar Use: No Alcohol: > 2 Drinks/Day Drugs: Denies Home Situation {Lives}: With Family - CARDIAC Hx Hypertension: Yes - PULMONARY Hx Bronchitis: Yes Hx Chronic Obstructive Pulmonary Disease (COPD): Yes - NEUROLOGICAL Hx Neurological Disorder: No - HEENT Hx HEENT Problems: No - RENAL Hx Chronic Kidney Disease: No - ENDOCRINE/METABOLIC Hx Endocrine Disorders: No - HEMATOLOGICAL/ONCOLOGICAL Hx Blood Disorders: No - INTEGUMENTARY Hx Dermatological Problems: No - MUSCULOSKELETAL/RHEUMATOLOGICAL Hx Falls: No Other/Comment: Painful swelling of both lower extremities - GASTROINTESTINAL Hx Gastrointestinal Disorders: No - GENITOURINARY/GYNECOLOGICAL Hx Genitourinary Disorders: No - PSYCHIATRIC Hx Psychophysiologic Disorder: No Hx Substance Use: No - SURGICAL HISTORY Hx Surgeries: No Other/Comment: heart valve replacement - ANESTHESIA Hx Anesthesia: Yes Hx Anesthesia Reactions: No Hx Malignant Hyperthermia: No Meds Allergies/Adverse Reactions: Allergies Allergy/AdvReac Type Severity Reaction Status Date / Time No Known Allergies Allergy Verified 07/28/16 15:35 - Medications Medications: Current Medications Acetaminophen (Tylenol 325mg Tab) 650 mg PO Q6 PRN PRN Reason: Pain, Mild (1-3) Albuterol Sulfate (Albuterol 0.083% Inhal Olivia (2.5 Mg/3 Ml) Ud) 2.5 mg INH RQ4 PRN PRN Reason: Shortness of Breath Albuterol/Ipratropium (Duoneb 3 Mg/0.5 Mg (3 Ml) Ud) 3 ml INH RQID [facility] Last Admin: 05/04/17 19:56 Dose: 3 ml Allopurinol (Zyloprim) 300 mg PO DAILY [facility] Last Admin: 05/04/17 08:39 Dose: 300 mg Amlodipine Besylate (Norvasc) 2.5 mg PO DAILY [facility] Aspirin (Ecotrin) 81 mg PO DAILY [facility] Last Admin: 05/04/17 08:39 Dose: 81 mg Atorvastatin Calcium (Lipitor) 20 mg PO QPM [facility] Last Admin: 05/04/17 16:59 Dose: 20 mg Bisacodyl (Dulcolax) 10 mg [place] DAILY PRN PRN Reason: Constipation Last Admin: 05/02/17 17:16 Dose: 10 mg Enalapril Maleate (Vasotec) 10 mg PO DAILY [facility] Last Admin: 05/04/17 08:39 Dose: 10 mg Furosemide (Lasix) 20 mg PO DAILY [facility] Last Admin: 05/04/17 08:39 Dose: 20 mg Gabapentin (Neurontin) 300 mg PO TID [facility] Last Admin: 05/04/17 16:59 Dose: 300 mg Ceftriaxone Sodium 1 gm/ (Sodium Chloride) 50 mls @ 100 mls/hr IVPB DAILY@1700 [facility] Last Admin: 05/04/17 17:02 Dose: 100 mls/hr Lactic Acid (Lac-Hydrin 12% Lotion (225 G)) 1 applic TOP TID@0900,1700,2200 [facility] Last Admin: 05/04/17 16:59 Dose: 1 applic Magnesium Hydroxide (Milk Of Magnesia) 30 ml PO DAILY [facility] Last Admin: 05/04/17 08:41 Dose: Not Given Metoprolol Tartrate (Lopressor) 25 mg PO Q12H [facility] Last Admin: 05/04/17 08:39 Dose: 25 mg Tramadol HCl (Ultram) 50 mg PO BID PRN PRN Reason: Pain, moderate (4-7) Last Admin: 05/04/17 08:45 Dose: 50 mg Results - Vital Signs Recent Vital Signs: Last Vital Signs Temp 97.0 F L 05/04/17 16:23 Pulse 90 05/04/17 16:23 Resp 20 05/04/17 16:23 BP 121/60 05/04/17 16:23 Pulse Ox 94 L 05/04/17 16:23 - Labs Result Diagrams: 05/03/17 05:30 05/03/17 05:30
--- NOTE | 2017-05-04 20:24 | CP.PCM.PN ---
Subjective - Date & Time of Evaluation Date of Evaluation: 05/04/17 Time of Evaluation: 22:22 - Subjective Subjective: Above noted Objective - Vital Signs/Intake and Output Vital Signs (last 24 hours): Temp Pulse Resp BP Pulse Ox 98.2 F 75 20 129/68 92 L 05/04/17 20:15 05/04/17 20:15 05/04/17 20:15 05/04/17 20:15 05/04/17 20:15 - Medications Medications: Current Medications Acetaminophen (Tylenol 325mg Tab) 650 mg PO Q6 PRN PRN Reason: Pain, Mild (1-3) Albuterol Sulfate (Albuterol 0.083% Inhal Olivia (2.5 Mg/3 Ml) Ud) 2.5 mg INH RQ4 PRN PRN Reason: Shortness of Breath Albuterol/Ipratropium (Duoneb 3 Mg/0.5 Mg (3 Ml) Ud) 3 ml INH RQID [facility] Last Admin: 05/04/17 19:56 Dose: 3 ml Allopurinol (Zyloprim) 300 mg PO DAILY [facility] Last Admin: 05/04/17 08:39 Dose: 300 mg Amlodipine Besylate (Norvasc) 2.5 mg PO DAILY [facility] Aspirin (Ecotrin) 81 mg PO DAILY [facility] Last Admin: 05/04/17 08:39 Dose: 81 mg Atorvastatin Calcium (Lipitor) 20 mg PO QPM [facility] Last Admin: 05/04/17 16:59 Dose: 20 mg Bisacodyl (Dulcolax) 10 mg [place] DAILY PRN PRN Reason: Constipation Last Admin: 05/02/17 17:16 Dose: 10 mg Enalapril Maleate (Vasotec) 10 mg PO DAILY [facility] Last Admin: 05/04/17 08:39 Dose: 10 mg Furosemide (Lasix) 20 mg PO DAILY [facility] Last Admin: 05/04/17 08:39 Dose: 20 mg Gabapentin (Neurontin) 300 mg PO TID [facility] Last Admin: 05/04/17 16:59 Dose: 300 mg Ceftriaxone Sodium 1 gm/ (Sodium Chloride) 50 mls @ 100 mls/hr IVPB DAILY@1700 [facility] Last Admin: 05/04/17 17:02 Dose: 100 mls/hr Lactic Acid (Lac-Hydrin 12% Lotion (225 G)) 1 applic TOP TID@0900,1700,2200 [facility] Last Admin: 05/04/17 16:59 Dose: 1 applic Magnesium Hydroxide (Milk Of Magnesia) 30 ml PO DAILY [facility] Last Admin: 05/04/17 08:41 Dose: Not Given Metoprolol Tartrate (Lopressor) 25 mg PO Q12H [facility] Last Admin: 05/04/17 08:39 Dose: 25 mg Tramadol HCl (Ultram) 50 mg PO BID PRN PRN Reason: Pain, moderate (4-7) Last Admin: 05/04/17 08:45 Dose: 50 mg - Labs Labs: 05/03/17 05:30 05/03/17 05:30 - Respiratory Exam Respiratory Exam: NORMAL BREATHING PATTERN - Cardiovascular Exam Cardiovascular Exam: REGULAR RHYTHM - GI/Abdominal Exam GI & Abdominal Exam: Normal Bowel Sounds Assessment and Plan - Assessment and Plan (Free Text) Assessment: Lower extremity pain etiol? Neurological vs orthopedic vs vascular Neuro Ortho Vascular Physiatry Arterial dopplers low extremity and abdomen wnl COPD Smoker Pulmonary HTN Prediabetes S/P TAVR Cardiology cellulitis??? ID
[2017-05-05] MEDS: Albuterol-Ipratrop 3 mg / 0.5 (3 ml) UD INH SCH ×5 (07:23→19:06)
[2017-05-05] MEDS: Magnesium Hydroxide Susp 30 ml UD PO SCH (09:47)
--- NOTE | 2017-05-05 10:27 | CP.PCM.CON ---
History of Present Illness - History of Present Illness History of Present Illness: NOTE: I SAW THIS PATIENT ON CARDIOLOGY CONSULTATION I AM COVERING FOR DR WADE BATES THE PATIENT IS AN 87 YEAR OLD MALE WHO HAD TAVR FOR AORTIC STENOSIS, HYPERTENSION, HYPERLIPIDEMIA, GOUT, CALF PAIN AND COPD EXACERBATION. CARDIOLOGY WAS CALLED DUE TO HIS TAVR HISTORY. THE PATIENT IS IN TCU FOR PHYSICAL THERAPY DUE TO HIS CALF PAIN. HE STATES STAT HE HAD TORN CALF MUSCLES AND WAS SEEN BY [facility] AND MAY HAVE MYOSITIS. HE DENIES ANY CHEST PAIN AT THE PRESENT TIME. Past Patient History - Past Medical History & Family History Past Medical History?: Yes - Past Social History Smoking Status: Former Smoker Chewing Tobacco Use: No Cigar Use: No Alcohol: > 2 Drinks/Day Drugs: Denies Home Situation {Lives}: With Family - CARDIAC Hx Hypertension: Yes - PULMONARY Hx Bronchitis: Yes Hx Chronic Obstructive Pulmonary Disease (COPD): Yes - NEUROLOGICAL Hx Neurological Disorder: No - HEENT Hx HEENT Problems: No - RENAL Hx Chronic Kidney Disease: No - ENDOCRINE/METABOLIC Hx Endocrine Disorders: No - HEMATOLOGICAL/ONCOLOGICAL Hx Blood Disorders: No - INTEGUMENTARY Hx Dermatological Problems: No - MUSCULOSKELETAL/RHEUMATOLOGICAL Hx Falls: No Other/Comment: Painful swelling of both lower extremities - GASTROINTESTINAL Hx Gastrointestinal Disorders: No - GENITOURINARY/GYNECOLOGICAL Hx Genitourinary Disorders: No - PSYCHIATRIC Hx Psychophysiologic Disorder: No Hx Substance Use: No - SURGICAL HISTORY Hx Surgeries: No Other/Comment: heart valve replacement - ANESTHESIA Hx Anesthesia: Yes Hx Anesthesia Reactions: No Hx Malignant Hyperthermia: No Meds Allergies/Adverse Reactions: Allergies Allergy/AdvReac Type Severity Reaction Status Date / Time No Known Allergies Allergy Verified 07/28/16 15:35 - Medications Medications: Current Medications Acetaminophen (Tylenol 325mg Tab) 650 mg PO Q6 PRN PRN Reason: Pain, Mild (1-3) Albuterol Sulfate (Albuterol 0.083% Inhal Olivia (2.5 Mg/3 Ml) Ud) 2.5 mg INH RQ4 PRN PRN Reason: Shortness of Breath Albuterol/Ipratropium (Duoneb 3 Mg/0.5 Mg (3 Ml) Ud) 3 ml INH RQID [facility] Last Admin: 05/05/17 07:23 Dose: 3 ml Allopurinol (Zyloprim) 300 mg PO DAILY [facility] Last Admin: 05/05/17 08:34 Dose: 300 mg Amlodipine Besylate (Norvasc) 2.5 mg PO DAILY [facility] Last Admin: 05/05/17 08:34 Dose: 2.5 mg Aspirin (Ecotrin) 81 mg PO DAILY [facility] Last Admin: 05/05/17 08:33 Dose: 81 mg Atorvastatin Calcium (Lipitor) 20 mg PO QPM [facility] Last Admin: 05/04/17 16:59 Dose: 20 mg Bisacodyl (Dulcolax) 10 mg [place] DAILY PRN PRN Reason: Constipation Last Admin: 05/02/17 17:16 Dose: 10 mg Enalapril Maleate (Vasotec) 10 mg PO DAILY [facility] Last Admin: 05/05/17 08:35 Dose: 10 mg Furosemide (Lasix) 20 mg PO DAILY [facility] Last Admin: 05/05/17 08:35 Dose: 20 mg Gabapentin (Neurontin) 300 mg PO TID [facility] Last Admin: 05/05/17 08:32 Dose: 300 mg Ceftriaxone Sodium 1 gm/ (Sodium Chloride) 50 mls @ 100 mls/hr IVPB DAILY@1700 [facility] Last Admin: 05/04/17 17:02 Dose: 100 mls/hr Lactic Acid (Lac-Hydrin 12% Lotion (225 G)) 1 applic TOP TID@0900,1700,2200 [facility] Last Admin: 05/05/17 08:34 Dose: 1 applic Magnesium Hydroxide (Milk Of Magnesia) 30 ml PO DAILY [facility] Last Admin: 05/05/17 09:47 Dose: Not Given Metoprolol Tartrate (Lopressor) 25 mg PO Q12H [facility] Last Admin: 05/05/17 08:32 Dose: 25 mg Tramadol HCl (Ultram) 50 mg PO BID PRN PRN Reason: Pain, moderate (4-7) Last Admin: 05/05/17 08:33 Dose: 50 mg Physical Exam - Respiratory Exam Respiratory Exam: Decreased Breath Sounds, Rhonchi - Cardiovascular Exam Cardiovascular Exam: REGULAR RHYTHM, +S1, +S2 - Extremities Exam Extremities exam: Positive for: pedal edema - Additional Findings Additional findings: [employer] NOTES REVIEWED Results - Vital Signs Recent Vital Signs: Last Vital Signs Temp 98.2 F 05/05/17 08:59 Pulse 84 05/05/17 08:59 Resp 20 05/05/17 08:59 BP 116/61 05/05/17 08:59 Pulse Ox 92 L 05/05/17 08:59 - Labs Result Diagrams: 05/03/17 05:30 05/03/17 05:30 Assessment & Plan - Assessment and Plan (Free Text) Assessment: S/P TAVR FOR AORTIC STENOSIS HYPERTENSION HYPERLIPIDEMIA COPD EXACERBATION LOWER EXTREMITY PAIN Plan: CONTINUE O2, ANTIBIOTICS, ASPIRIN, FUROSEMIDE, ATORVASTATIN, METOPROLOL AND ENALAPRIL AMLODIPINE STOPPED DUE TO LEG EDEMA-WILL MONITOR BLOOD PRESSURE
--- NOTE | 2017-05-05 17:02 | CP.PCM.PN ---
Subjective - Date & Time of Evaluation Date of Evaluation: 05/05/17 Time of Evaluation: 22:22 - Subjective Subjective: Improvement with Neurontin?? Objective - Vital Signs/Intake and Output Vital Signs (last 24 hours): Temp Pulse Resp BP Pulse Ox 98.0 F 83 20 118/54 L 96 05/05/17 16:26 05/05/17 16:26 05/05/17 16:26 05/05/17 16:26 05/05/17 16:47 - Medications Medications: Current Medications Acetaminophen (Tylenol 325mg Tab) 650 mg PO Q6 PRN PRN Reason: Pain, Mild (1-3) Albuterol Sulfate (Albuterol 0.083% Inhal Olivia (2.5 Mg/3 Ml) Ud) 2.5 mg INH RQ4 PRN PRN Reason: Shortness of Breath Albuterol/Ipratropium (Duoneb 3 Mg/0.5 Mg (3 Ml) Ud) 3 ml INH RQID [facility] Last Admin: 05/05/17 16:04 Dose: 3 ml Allopurinol (Zyloprim) 300 mg PO DAILY [facility] Last Admin: 05/05/17 08:34 Dose: 300 mg Aspirin (Ecotrin) 81 mg PO DAILY [facility] Last Admin: 05/05/17 08:33 Dose: 81 mg Atorvastatin Calcium (Lipitor) 20 mg PO QPM [facility] Last Admin: 05/04/17 16:59 Dose: 20 mg Bisacodyl (Dulcolax) 10 mg [place] DAILY PRN PRN Reason: Constipation Last Admin: 05/02/17 17:16 Dose: 10 mg Enalapril Maleate (Vasotec) 10 mg PO DAILY [facility] Last Admin: 05/05/17 08:35 Dose: 10 mg Furosemide (Lasix) 20 mg PO DAILY [facility] Last Admin: 05/05/17 08:35 Dose: 20 mg Gabapentin (Neurontin) 300 mg PO TID [facility] Last Admin: 05/05/17 16:34 Dose: 300 mg Ceftriaxone Sodium 1 gm/ (Sodium Chloride) 50 mls @ 100 mls/hr IVPB DAILY@1700 [facility] Last Admin: 05/05/17 16:32 Dose: 100 mls/hr Lactic Acid (Lac-Hydrin 12% Lotion (225 G)) 1 applic TOP TID@0900,1700,2200 [facility] Last Admin: 05/05/17 16:34 Dose: 1 applic Magnesium Hydroxide (Milk Of Magnesia) 30 ml PO DAILY [facility] Last Admin: 05/05/17 09:47 Dose: Not Given Metoprolol Tartrate (Lopressor) 25 mg PO Q12H [facility] Last Admin: 05/05/17 08:32 Dose: 25 mg Tramadol HCl (Ultram) 50 mg PO BID PRN PRN Reason: Pain, moderate (4-7) Last Admin: 05/05/17 08:33 Dose: 50 mg - Labs Labs: 05/03/17 05:30 05/03/17 05:30 - Respiratory Exam Respiratory Exam: NORMAL BREATHING PATTERN - Cardiovascular Exam Cardiovascular Exam: REGULAR RHYTHM - GI/Abdominal Exam GI & Abdominal Exam: Normal Bowel Sounds Assessment and Plan - Assessment and Plan (Free Text) Assessment: Lower extremity pain etiol? Neurological vs orthopedic vs vascular Neuro Ortho IR Physiatry Arterial dopplers low extremity and abdomen wnl Vascular consult MRI c-spine and L-S area COPD Smoker Pulmonary HTN Prediabetes S/P TAVR Cardiology cellulitis??? ID
[2017-05-06] MEDS: Albuterol 0.083% Inhal Sol (2.5 mg/3 mL) UD INH PRN (00:16)
[2017-05-06 06:25] LABS: MEAN CELL VOLUME 100.5 fl (80.0-94.0); MEAN CORPUSCULAR HEMOGLOBIN 33.2 pg (27.0-31.0); RBC 3.61 Mil/uL (4.40-5.90); RED CELL DISTRIBUTION WIDTH 14.1 % (11.5-14.5); WHITE BLOOD COUNT 6.6 K/uL (4.8-10.8)
[2017-05-06 07:02] LABS: ALB/GLOB RATIO 1.2 (1.0-2.1); ALBUMIN 3.8 g/dL (3.5-5.0); ALT/SGPT 45 U/L (21-72); AST/SGOT 37 U/L (17-59); BLOOD UREA NITROGEN 16 mg/dl (9-20); CALCIUM 8.7 mg/dL (8.4-10.2); GFR AFRICAN-AMERICAN > 60; GFR NON-AFRICAN AMERICAN > 60; URIC ACID 4.6 mg/Dl (3.5-8.5)
[2017-05-06] MEDS: Albuterol-Ipratrop 3 mg / 0.5 (3 ml) UD INH SCH ×4 (07:38→19:42)
[2017-05-06] MEDS: Magnesium Hydroxide Susp 30 ml UD PO SCH (08:45)
--- NOTE | 2017-05-06 11:18 | CP.PCM.PN ---
Subjective - Date & Time of Evaluation Date of Evaluation: 05/06/17 Time of Evaluation: 11:16 - Subjective Subjective: Continues to have MORALES and audible wheezing with activity/exercise. Oxygenation has been adequate, though low-normal. Will switch to LABA/ICS and LAMA. Monitor effect of long acting agents with inhaled steroid. May consider adding roflumilast if he continues to be symptomatic. Objective - Vital Signs/Intake and Output Vital Signs (last 24 hours): Temp Pulse Resp BP Pulse Ox 98.2 F 73 20 118/75 99 05/06/17 08:15 05/06/17 08:44 05/06/17 08:15 05/06/17 08:45 05/06/17 08:15 - Medications Medications: Current Medications Acetaminophen (Tylenol 325mg Tab) 650 mg PO Q6 PRN PRN Reason: Pain, Mild (1-3) Albuterol Sulfate (Albuterol 0.083% Inhal Olivia (2.5 Mg/3 Ml) Ud) 2.5 mg INH RQ4 PRN PRN Reason: Shortness of Breath Last Admin: 05/06/17 00:16 Dose: 2.5 mg Albuterol/Ipratropium (Duoneb 3 Mg/0.5 Mg (3 Ml) Ud) 3 ml INH RQID [facility] Last Admin: 05/06/17 07:38 Dose: 3 ml Allopurinol (Zyloprim) 300 mg PO DAILY [facility] Last Admin: 05/06/17 08:46 Dose: 300 mg Aspirin (Ecotrin) 81 mg PO DAILY [facility] Last Admin: 05/06/17 08:46 Dose: 81 mg Atorvastatin Calcium (Lipitor) 20 mg PO QPM [facility] Last Admin: 05/05/17 17:15 Dose: 20 mg Bisacodyl (Dulcolax) 10 mg [place] DAILY PRN PRN Reason: Constipation Last Admin: 05/02/17 17:16 Dose: 10 mg Enalapril Maleate (Vasotec) 10 mg PO DAILY [facility] Last Admin: 05/06/17 08:45 Dose: 10 mg Furosemide (Lasix) 20 mg PO DAILY [facility] Last Admin: 05/06/17 08:45 Dose: 20 mg Gabapentin (Neurontin) 300 mg PO TID [facility] Last Admin: 05/06/17 08:45 Dose: 300 mg Ceftriaxone Sodium 1 gm/ (Sodium Chloride) 50 mls @ 100 mls/hr IVPB DAILY@1700 [facility] Last Admin: 05/05/17 16:32 Dose: 100 mls/hr Lactic Acid (Lac-Hydrin 12% Lotion (225 G)) 1 applic TOP TID@0900,1700,2200 [facility] Last Admin: 05/06/17 10:17 Dose: 1 applic Magnesium Hydroxide (Milk Of Magnesia) 30 ml PO DAILY [facility] Last Admin: 05/06/17 08:45 Dose: Not Given Metoprolol Tartrate (Lopressor) 25 mg PO Q12H [facility] Last Admin: 05/06/17 08:44 Dose: 25 mg Fluticasone/Salmeterol (Advair Diskus 250/50) 1 puff IH Q12 [facility] Tiotropium [place] (Spiriva) 18 mcg INH DAILY [facility] Tramadol HCl (Ultram) 50 mg PO BID PRN PRN Reason: Pain, moderate (4-7) Last Admin: 05/06/17 08:49 Dose: 50 mg - Labs Labs: 05/06/17 05:40 05/06/17 05:40 Assessment and Plan (1) 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
[2017-05-06] MEDS: Tiotropium 18 mcg Cap For Inhalation INH SCH (12:47)
--- NOTE | 2017-05-06 13:09 | CP.PCM.PN ---
Subjective - Date & Time of Evaluation Date of Evaluation: 05/06/17 Time of Evaluation: 09:00 - Subjective Subjective: still sob no fever Objective - Vital Signs/Intake and Output Vital Signs (last 24 hours): Temp Pulse Resp BP Pulse Ox 98.2 F 73 20 118/75 99 05/06/17 08:15 05/06/17 08:44 05/06/17 08:15 05/06/17 08:45 05/06/17 08:15 - Medications Medications: Current Medications Acetaminophen (Tylenol 325mg Tab) 650 mg PO Q6 PRN PRN Reason: Pain, Mild (1-3) Albuterol Sulfate (Albuterol 0.083% Inhal Olivia (2.5 Mg/3 Ml) Ud) 2.5 mg INH RQ4 PRN PRN Reason: Shortness of Breath Last Admin: 05/06/17 00:16 Dose: 2.5 mg Albuterol/Ipratropium (Duoneb 3 Mg/0.5 Mg (3 Ml) Ud) 3 ml INH RQID [facility] Last Admin: 05/06/17 12:07 Dose: 3 ml Allopurinol (Zyloprim) 300 mg PO DAILY [facility] Last Admin: 05/06/17 08:46 Dose: 300 mg Aspirin (Ecotrin) 81 mg PO DAILY [facility] Last Admin: 05/06/17 08:46 Dose: 81 mg Atorvastatin Calcium (Lipitor) 20 mg PO QPM [facility] Last Admin: 05/05/17 17:15 Dose: 20 mg Bisacodyl (Dulcolax) 10 mg [place] DAILY PRN PRN Reason: Constipation Last Admin: 05/02/17 17:16 Dose: 10 mg Enalapril Maleate (Vasotec) 10 mg PO DAILY [facility] Last Admin: 05/06/17 08:45 Dose: 10 mg Furosemide (Lasix) 20 mg PO DAILY [facility] Last Admin: 05/06/17 08:45 Dose: 20 mg Gabapentin (Neurontin) 300 mg PO TID [facility] Last Admin: 05/06/17 08:45 Dose: 300 mg Ceftriaxone Sodium 1 gm/ (Sodium Chloride) 50 mls @ 100 mls/hr IVPB DAILY@1700 [facility] Last Admin: 05/05/17 16:32 Dose: 100 mls/hr Lactic Acid (Lac-Hydrin 12% Lotion (225 G)) 1 applic TOP TID@0900,1700,2200 [facility] Last Admin: 05/06/17 10:17 Dose: 1 applic Magnesium Hydroxide (Milk Of Magnesia) 30 ml PO DAILY [facility] Last Admin: 05/06/17 08:45 Dose: Not Given Metoprolol Tartrate (Lopressor) 25 mg PO Q12H [facility] Last Admin: 05/06/17 08:44 Dose: 25 mg Fluticasone/Salmeterol (Advair Diskus 250/50) 1 puff IH Q12 [facility] Tiotropium [place] (Spiriva) 18 mcg INH DAILY [facility] Last Admin: 05/06/17 12:47 Dose: 18 mcg Tramadol HCl (Ultram) 50 mg PO BID PRN PRN Reason: Pain, moderate (4-7) Last Admin: 05/06/17 08:49 Dose: 50 mg - Labs Labs: 05/06/17 05:40 05/06/17 05:40 - Constitutional Appears: Well - Head Exam Head Exam: ATRAUMATIC, NORMAL INSPECTION, NORMOCEPHALIC - Eye Exam Eye Exam: EOMI, Normal appearance, PERRL Pupil Exam: NORMAL ACCOMODATION, PERRL - ENT Exam ENT Exam: Mucous Membranes Moist, Normal Exam - Neck Exam Neck Exam: Full ROM, Normal Inspection. absent: Lymphadenopathy - Respiratory Exam Respiratory Exam: Clear to Ausculation Bilateral, NORMAL BREATHING PATTERN - Cardiovascular Exam Cardiovascular Exam: REGULAR RHYTHM, +S1, +S2. absent: Murmur - GI/Abdominal Exam GI & Abdominal Exam: Soft, Normal Bowel Sounds. absent: Tenderness - Rectal Exam Rectal Exam: NORMAL INSPECTION - Exam Exam: Circumcision, NORMAL INSPECTION External exam: NORMAL EXTERNAL EXAM Speculum exam: NORMAL SPECULUM EXAM Bimanual exam: NORMAL BIMANUAL EXAM - Extremities Exam Extremities Exam: Full ROM, Normal Capillary Refill, Normal Inspection. absent : Joint Swelling, Pedal Edema - Back Exam Back Exam: NORMAL INSPECTION - Neurological Exam Neurological Exam: Alert, Awake, CN II-XII Intact, Normal Gait, Oriented x3 - Psychiatric Exam Psychiatric exam: Normal Affect, Normal Mood - Skin Skin Exam: Dry, Intact, Normal Color, Warm Assessment and Plan (1) Hypoxemia Status: Acute (2) Leg pain Status: Acute (3) Leukocytosis Status: Acute (4) Venous stasis of both lower extremities Status: Acute (5) Aortic stenosis Status: Chronic (6) Cough Status: Chronic (7) Leg edema Status: Chronic - Assessment and Plan (Free Text) Assessment: cont rx
[2017-05-06] MEDS: Fluticasone-Salmeterol 250-50mcg Diskus IH SCH ×2 (13:19→21:10)
--- NOTE | 2017-05-06 13:27 | CP.PCM.PN ---
Subjective - Date & Time of Evaluation Date of Evaluation: 05/06/17 Time of Evaluation: 13:24 - Subjective Subjective: Mr. Velez was seen and examined at the bedside. He is alert, oriented. He denies any headache, but claims of inability to finish MRI due to back pain and laying in a supine position. He is able to follow simple commands. He still claims of leg pain with pain scale 3/10. He is able to move bilateral lower extremities spontaneously . He also has bilateral kelsea hose on. There was no untoward events overnight. Objective - Vital Signs/Intake and Output Vital Signs (last 24 hours): Temp Pulse Resp BP Pulse Ox 98.2 F 73 20 118/75 99 05/06/17 08:15 05/06/17 08:44 05/06/17 08:15 05/06/17 08:45 05/06/17 08:15 - Medications Medications: Current Medications Acetaminophen (Tylenol 325mg Tab) 650 mg PO Q6 PRN PRN Reason: Pain, Mild (1-3) Albuterol Sulfate (Albuterol 0.083% Inhal Olivia (2.5 Mg/3 Ml) Ud) 2.5 mg INH RQ4 PRN PRN Reason: Shortness of Breath Last Admin: 05/06/17 00:16 Dose: 2.5 mg Albuterol/Ipratropium (Duoneb 3 Mg/0.5 Mg (3 Ml) Ud) 3 ml INH RQID [facility] Last Admin: 05/06/17 12:07 Dose: 3 ml Allopurinol (Zyloprim) 300 mg PO DAILY [facility] Last Admin: 05/06/17 08:46 Dose: 300 mg Aspirin (Ecotrin) 81 mg PO DAILY [facility] Last Admin: 05/06/17 08:46 Dose: 81 mg Atorvastatin Calcium (Lipitor) 20 mg PO QPM [facility] Last Admin: 05/05/17 17:15 Dose: 20 mg Bisacodyl (Dulcolax) 10 mg [place] DAILY PRN PRN Reason: Constipation Last Admin: 05/02/17 17:16 Dose: 10 mg Enalapril Maleate (Vasotec) 10 mg PO DAILY [facility] Last Admin: 05/06/17 08:45 Dose: 10 mg Furosemide (Lasix) 20 mg PO DAILY [facility] Last Admin: 05/06/17 08:45 Dose: 20 mg Gabapentin (Neurontin) 300 mg PO TID [facility] Last Admin: 05/06/17 08:45 Dose: 300 mg Ceftriaxone Sodium 1 gm/ (Sodium Chloride) 50 mls @ 100 mls/hr IVPB DAILY@1700 [facility] Last Admin: 05/05/17 16:32 Dose: 100 mls/hr Lactic Acid (Lac-Hydrin 12% Lotion (225 G)) 1 applic TOP TID@0900,1700,2200 [facility] Last Admin: 05/06/17 10:17 Dose: 1 applic Magnesium Hydroxide (Milk Of Magnesia) 30 ml PO DAILY [facility] Last Admin: 05/06/17 08:45 Dose: Not Given Metoprolol Tartrate (Lopressor) 25 mg PO Q12H [facility] Last Admin: 05/06/17 08:44 Dose: 25 mg Fluticasone/Salmeterol (Advair Diskus 250/50) 1 puff IH Q12 [facility] Last Admin: 05/06/17 13:19 Dose: 1 puff Tiotropium [place] (Spiriva) 18 mcg INH DAILY [facility] Last Admin: 05/06/17 12:47 Dose: 18 mcg Tramadol HCl (Ultram) 50 mg PO BID PRN PRN Reason: Pain, moderate (4-7) Last Admin: 05/06/17 08:49 Dose: 50 mg - Labs Labs: 05/06/17 05:40 05/06/17 05:40 - Constitutional Appears: No Acute Distress - Head Exam Head Exam: NORMAL INSPECTION - Neurological Exam Neurological Exam: Alert, Awake, Oriented x3 Neuro motor strength exam: Left Upper Extremity: 5, Right Upper Extremity: 5, Left Lower Extremity: 4, Right Lower Extremity: 4 Additional comments: Neurological unchanged from previous examination Assessment and Plan (1) Leg pain Assessment & Plan: Case discussed with Dr. Gould, continue all current medical, physical, and occupational therapies. There is no new recommendations from neurology. Status: Acute
--- NOTE | 2017-05-06 20:12 | CP.PCM.PN ---
Subjective - Date & Time of Evaluation Date of Evaluation: 05/06/17 Time of Evaluation: 22:22 - Subjective Subjective: Still wheezing Unable to tolerate MRI Vascular consult pending Objective - Vital Signs/Intake and Output Vital Signs (last 24 hours): Temp Pulse Resp BP Pulse Ox 98.1 F 73 20 121/59 L 94 L 05/06/17 16:53 05/06/17 16:53 05/06/17 16:53 05/06/17 16:53 05/06/17 16:53 - Medications Medications: Current Medications Acetaminophen (Tylenol 325mg Tab) 650 mg PO Q6 PRN PRN Reason: Pain, Mild (1-3) Albuterol Sulfate (Albuterol 0.083% Inhal [place] (2.5 Mg/3 Ml) Ud) 2.5 mg INH RQ4 PRN PRN Reason: Shortness of Breath Last Admin: 05/06/17 00:16 Dose: 2.5 mg Albuterol/Ipratropium (Duoneb 3 Mg/0.5 Mg (3 Ml) Ud) 3 ml INH RQID [facility] Last Admin: 05/06/17 19:42 Dose: 3 ml Allopurinol (Zyloprim) 300 mg PO DAILY [facility] Last Admin: 05/06/17 08:46 Dose: 300 mg Aspirin (Ecotrin) 81 mg PO DAILY [facility] Last Admin: 05/06/17 08:46 Dose: 81 mg Atorvastatin Calcium (Lipitor) 20 mg PO QPM [facility] Last Admin: 05/06/17 17:28 Dose: 20 mg Bisacodyl (Dulcolax) 10 mg [place] DAILY PRN PRN Reason: Constipation Last Admin: 05/02/17 17:16 Dose: 10 mg Enalapril Maleate (Vasotec) 10 mg PO DAILY [facility] Last Admin: 05/06/17 08:45 Dose: 10 mg Furosemide (Lasix) 20 mg PO DAILY [facility] Last Admin: 05/06/17 08:45 Dose: 20 mg Gabapentin (Neurontin) 300 mg PO TID [facility] Last Admin: 05/06/17 17:28 Dose: 300 mg Ceftriaxone Sodium 1 gm/ (Sodium Chloride) 50 mls @ 100 mls/hr IVPB DAILY@1700 [facility] Last Admin: 05/06/17 17:27 Dose: 100 mls/hr Lactic Acid (Lac-Hydrin 12% Lotion (225 G)) 1 applic TOP TID@0900,1700,2200 [facility] Last Admin: 05/06/17 17:28 Dose: 1 applic Magnesium Hydroxide (Milk Of Magnesia) 30 ml PO DAILY [facility] Last Admin: 05/06/17 08:45 Dose: Not Given Metoprolol Tartrate (Lopressor) 25 mg PO Q12H [facility] Last Admin: 05/06/17 08:44 Dose: 25 mg Fluticasone/Salmeterol (Advair Diskus 250/50) 1 puff IH Q12 [facility] Last Admin: 05/06/17 13:19 Dose: 1 puff Tiotropium [place] (Spiriva) 18 mcg INH DAILY [facility] Last Admin: 05/06/17 12:47 Dose: 18 mcg Tramadol HCl (Ultram) 50 mg PO BID PRN PRN Reason: Pain, moderate (4-7) Last Admin: 05/06/17 08:49 Dose: 50 mg - Labs Labs: 05/06/17 05:40 05/06/17 05:40 - Respiratory Exam Respiratory Exam: Wheezes - Cardiovascular Exam Cardiovascular Exam: REGULAR RHYTHM - GI/Abdominal Exam GI & Abdominal Exam: Normal Bowel Sounds Assessment and Plan - Assessment and Plan (Free Text) Assessment: Lower extremity pain etiol? Neurological vs orthopedic vs vascular Neuro Ortho IR Physiatry Arterial dopplers low extremity and abdomen wnl Vascular consult pending unable to tolerate MRI c-spine and L-S area COPD Smoker Pulmonary Electrolyte abnormalities 2 to diuretic?? Nephrology HTN Prediabetes S/P TAVR Cardiology cellulitis??? ID
[2017-05-06] MEDS ORDERED: Fluticasone-Salmeterol 250-50mcg Diskus IH SCH (21:00)
[2017-05-07] MEDS: Albuterol-Ipratrop 3 mg / 0.5 (3 ml) UD INH SCH ×2 (07:34→11:45)
[2017-05-07] MEDS: Tiotropium 18 mcg Cap For Inhalation INH SCH (08:44)
[2017-05-07] MEDS: Magnesium Hydroxide Susp 30 ml UD PO SCH (08:46)
[2017-05-07] MEDS: Fluticasone-Salmeterol 250-50mcg Diskus IH SCH ×2 (09:00→21:20)
--- NOTE | 2017-05-07 10:23 | CP.PCM.PN ---
Subjective - Date & Time of Evaluation Date of Evaluation: 05/07/17 Time of Evaluation: 09:15 - Subjective Subjective: STILL COMPLAINS OF LEG PAIN Objective - Vital Signs/Intake and Output Vital Signs (last 24 hours): Temp Pulse Resp BP Pulse Ox 98.0 F 79 18 130/62 98 05/07/17 08:16 05/07/17 08:45 05/07/17 08:16 05/07/17 08:45 05/07/17 08:16 - Medications Medications: Current Medications Acetaminophen (Tylenol 325mg Tab) 650 mg PO Q6 PRN PRN Reason: Pain, Mild (1-3) Albuterol Sulfate (Albuterol 0.083% Inhal [place] (2.5 Mg/3 Ml) Ud) 2.5 mg INH RQ4 PRN PRN Reason: Shortness of Breath Last Admin: 05/06/17 00:16 Dose: 2.5 mg Albuterol/Ipratropium (Duoneb 3 Mg/0.5 Mg (3 Ml) Ud) 3 ml INH RQID [facility] Last Admin: 05/07/17 07:34 Dose: 3 ml Allopurinol (Zyloprim) 300 mg PO DAILY [facility] Last Admin: 05/07/17 08:45 Dose: 300 mg Aspirin (Ecotrin) 81 mg PO DAILY [facility] Last Admin: 05/07/17 08:46 Dose: 81 mg Atorvastatin Calcium (Lipitor) 20 mg PO QPM [facility] Last Admin: 05/06/17 17:28 Dose: 20 mg Bisacodyl (Dulcolax) 10 mg [place] DAILY PRN PRN Reason: Constipation Last Admin: 05/02/17 17:16 Dose: 10 mg Enalapril Maleate (Vasotec) 10 mg PO DAILY [facility] Last Admin: 05/07/17 08:44 Dose: 10 mg Furosemide (Lasix) 20 mg PO DAILY [facility] Last Admin: 05/07/17 08:45 Dose: 20 mg Gabapentin (Neurontin) 300 mg PO TID [facility] Last Admin: 05/07/17 08:44 Dose: 300 mg Ceftriaxone Sodium 1 gm/ (Sodium Chloride) 100 mls @ 200 mls/hr IVPB DAILY@ 1700 [facility] Lactic Acid (Lac-Hydrin 12% Lotion (225 G)) 1 applic TOP TID@0900,1700,2200 [facility] Last Admin: 05/07/17 08:44 Dose: 1 applic Magnesium Hydroxide (Milk Of Magnesia) 30 ml PO DAILY [facility] Last Admin: 05/07/17 08:46 Dose: Not Given Metoprolol Tartrate (Lopressor) 25 mg PO Q12H [facility] Last Admin: 05/07/17 08:45 Dose: 25 mg Fluticasone/Salmeterol (Advair Diskus 250/50) 1 puff IH Q12 [facility] Last Admin: 05/06/17 21:10 Dose: 1 puff Tiotropium [place] (Spiriva) 18 mcg INH DAILY [facility] Last Admin: 05/07/17 08:44 Dose: 18 mcg Tramadol HCl (Ultram) 50 mg PO BID PRN PRN Reason: Pain, moderate (4-7) Last Admin: 05/07/17 08:43 Dose: 50 mg - Labs Labs: 05/06/17 05:40 05/06/17 05:40 - Respiratory Exam Respiratory Exam: Wheezes - Cardiovascular Exam Cardiovascular Exam: REGULAR RHYTHM, +S1, +S2 Assessment and Plan - Assessment and Plan (Free Text) Assessment: TAVR HYPERTENSION HYPERLIPIDEMIA COPD EXACERBATION LEG PAIN Plan: CONTINUE ANTIBIOTICS, BRONCHODILATORS, ASPIRIN, METOPROLOL, ENALAPRIL, ATORVASTATIN, FUROSEMIDE
--- NOTE | 2017-05-07 10:47 | CP.PCM.CON ---
History of Present Illness - History of Present Illness History of Present Illness: This patient who is 87 years of age male I was called to see him for consultation regarding hyponatremia. Patient apparently admitted with severe lower extremity pain and is still complaining of pain despite gabapentin and Ultram As stated above hyperlipidemia and lower extremity pain no chest pain no shortness of breath Past medical history as noted in the medical record Review of Systems - Constitutional Constitutional: Weakness. absent: Chills - EENT Eyes: Irritation Nose/Mouth/Throat: Dry Mouth. absent: Epistaxis, Nasal Discharge - Cardiovascular Cardiovascular: absent: Acrocyanosis - Respiratory Respiratory: absent: Cough, Dyspnea, Hemoptysis - Gastrointestinal Gastrointestinal: absent: Abdominal Pain - Genitourinary Genitourinary: Nocturia. absent: Hematuria - Reproductive: Male Reproductive:Male: As Per HPI - Neurological Neurological: Abnormal Gait, Numbness, Paresthesias, Restless Legs. absent: Confusion, Headaches - Psychiatric Psychiatric: As Per HPI - Endocrine Endocrine: Fatigue - Hematologic/Lymphatic Hematologic: absent: Easy Bleeding Past Patient History - Past Medical History & Family History Past Medical History?: Yes - Past Social History Smoking Status: Former Smoker Chewing Tobacco Use: No Cigar Use: No Alcohol: > 2 Drinks/Day Drugs: Denies Home Situation {Lives}: With Family - CARDIAC Hx Hypertension: Yes - PULMONARY Hx Bronchitis: Yes Hx Chronic Obstructive Pulmonary Disease (COPD): Yes - NEUROLOGICAL Hx Neurological Disorder: No - HEENT Hx HEENT Problems: No - RENAL Hx Chronic Kidney Disease: No - ENDOCRINE/METABOLIC Hx Endocrine Disorders: No - HEMATOLOGICAL/ONCOLOGICAL Hx Blood Disorders: No - INTEGUMENTARY Hx Dermatological Problems: No - MUSCULOSKELETAL/RHEUMATOLOGICAL Hx Falls: No Other/Comment: Painful swelling of both lower extremities - GASTROINTESTINAL Hx Gastrointestinal Disorders: No - GENITOURINARY/GYNECOLOGICAL Hx Genitourinary Disorders: No - PSYCHIATRIC Hx Psychophysiologic Disorder: No Hx Substance Use: No - SURGICAL HISTORY Hx Surgeries: No Other/Comment: heart valve replacement - ANESTHESIA Hx Anesthesia: Yes Hx Anesthesia Reactions: No Hx Malignant Hyperthermia: No Meds Allergies/Adverse Reactions: Allergies Allergy/AdvReac Type Severity Reaction Status Date / Time No Known Allergies Allergy Verified 07/28/16 15:35 - Medications Medications: Current Medications Acetaminophen (Tylenol 325mg Tab) 650 mg PO Q6 PRN PRN Reason: Pain, Mild (1-3) Albuterol Sulfate (Albuterol 0.083% Inhal Olivia (2.5 Mg/3 Ml) Ud) 2.5 mg INH RQ4 PRN PRN Reason: Shortness of Breath Last Admin: 05/06/17 00:16 Dose: 2.5 mg Albuterol/Ipratropium (Duoneb 3 Mg/0.5 Mg (3 Ml) Ud) 3 ml INH RQID [facility] Last Admin: 05/07/17 07:34 Dose: 3 ml Aspirin (Ecotrin) 81 mg PO DAILY [facility] Last Admin: 05/07/17 08:46 Dose: 81 mg Atorvastatin Calcium (Lipitor) 20 mg PO QPM [facility] Last Admin: 05/06/17 17:28 Dose: 20 mg Bisacodyl (Dulcolax) 10 mg [place] DAILY PRN PRN Reason: Constipation Last Admin: 05/02/17 17:16 Dose: 10 mg Enalapril Maleate (Vasotec) 10 mg PO DAILY [facility] Last Admin: 05/07/17 08:44 Dose: 10 mg Furosemide (Lasix) 20 mg PO DAILY [facility] Last Admin: 05/07/17 08:45 Dose: 20 mg Gabapentin (Neurontin) 300 mg PO TID [facility] Last Admin: 05/07/17 08:44 Dose: 300 mg Ceftriaxone Sodium 1 gm/ (Sodium Chloride) 100 mls @ 200 mls/hr IVPB DAILY@ 1700 [facility] Lactic Acid (Lac-Hydrin 12% Lotion (225 G)) 1 applic TOP TID@0900,1700,2200 [facility] Last Admin: 05/07/17 08:44 Dose: 1 applic Magnesium Hydroxide (Milk Of Magnesia) 30 ml PO DAILY [facility] Last Admin: 05/07/17 08:46 Dose: Not Given Metoprolol Tartrate (Lopressor) 25 mg PO Q12H [facility] Last Admin: 05/07/17 08:45 Dose: 25 mg Fluticasone/Salmeterol (Advair Diskus 250/50) 1 puff IH Q12 [facility] Last Admin: 05/06/17 21:10 Dose: 1 puff Tiotropium [place] (Spiriva) 18 mcg INH DAILY [facility] Last Admin: 05/07/17 08:44 Dose: 18 mcg Tramadol HCl (Ultram) 50 mg PO BID PRN PRN Reason: Pain, moderate (4-7) Last Admin: 05/07/17 08:43 Dose: 50 mg Physical Exam - Constitutional Appears: No Acute Distress - ENT Exam ENT Exam: Mucous Membranes Moist - Neck Exam Neck exam: Negative for: Lymphadenopathy - Respiratory Exam Respiratory Exam: NORMAL BREATHING PATTERN. absent: Chest Wall Tenderness - Cardiovascular Exam Cardiovascular Exam: absent: JVD, Rubs - GI/Abdominal Exam GI & Abdominal Exam: Normal Bowel Sounds. absent: Distended - Extremities Exam Extremities exam: Positive for: calf tenderness - Back Exam Back exam: absent: CVA tenderness (L), CVA tenderness (R) - Neurological Exam Neurological exam: Alert - Psychiatric Exam Psychiatric exam: Normal Affect Results - Vital Signs Recent Vital Signs: Last Vital Signs Temp 98.0 F 05/07/17 08:16 Pulse 79 05/07/17 08:45 Resp 18 05/07/17 08:16 BP 130/62 05/07/17 08:45 Pulse Ox 98 05/07/17 08:16 - Labs Result Diagrams: 05/06/17 05:40 05/06/17 05:40 Assessment & Plan (1) Hyponatremia Assessment and Plan: Patient has hyponatremia and serum sodium in the range of 129 Etiology could be multifactorial . Chronic pain that the patient having may cause hyponatremia However the fact that the patient has hyponatremia and hypochloremia these are consistent with diuretics induced therefore we will hold Lasix for a few days and see what happened. Stat spot urine for sodium osmolality and creatinine to rule out SIADH I ordered a stat CPK consider whether the statin may have been causing this muscle pain? Also I hold on allopurinol temporarily until you get serum uric acid with his diffuse a skin rash in his face and upper body. 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
--- NOTE | 2017-05-07 10:58 | CP.PCM.PN ---
Subjective - Date & Time of Evaluation Date of Evaluation: 05/07/17 Time of Evaluation: 10:56 - Subjective Subjective: Mr. Velez was seen and examined at the bedside. He is alert, oriented. He denies any headache, dizziness, lightheadedness, nausea, or vomiting. He still claims of leg pain but not severe. He is able to move bilateral lower extremities. He has the kelsea hose on bilateral lower extremities. He is able to participate with his therapy. His sodium 129, undercover cop was consulted. Objective - Vital Signs/Intake and Output Vital Signs (last 24 hours): Temp Pulse Resp BP Pulse Ox 98.0 F 79 18 130/62 98 05/07/17 08:16 05/07/17 08:45 05/07/17 08:16 05/07/17 08:45 05/07/17 08:16 - Medications Medications: Current Medications Acetaminophen (Tylenol 325mg Tab) 650 mg PO Q6 PRN PRN Reason: Pain, Mild (1-3) Albuterol Sulfate (Albuterol 0.083% Inhal Olivia (2.5 Mg/3 Ml) Ud) 2.5 mg INH RQ4 PRN PRN Reason: Shortness of Breath Last Admin: 05/06/17 00:16 Dose: 2.5 mg Albuterol/Ipratropium (Duoneb 3 Mg/0.5 Mg (3 Ml) Ud) 3 ml INH RQID [facility] Last Admin: 05/07/17 07:34 Dose: 3 ml Aspirin (Ecotrin) 81 mg PO DAILY [facility] Last Admin: 05/07/17 08:46 Dose: 81 mg Atorvastatin Calcium (Lipitor) 20 mg PO QPM [facility] Last Admin: 05/06/17 17:28 Dose: 20 mg Bisacodyl (Dulcolax) 10 mg [place] DAILY PRN PRN Reason: Constipation Last Admin: 05/02/17 17:16 Dose: 10 mg Enalapril Maleate (Vasotec) 10 mg PO DAILY [facility] Last Admin: 05/07/17 08:44 Dose: 10 mg Furosemide (Lasix) 20 mg PO DAILY [facility] Last Admin: 05/07/17 08:45 Dose: 20 mg Gabapentin (Neurontin) 300 mg PO TID [facility] Last Admin: 05/07/17 08:44 Dose: 300 mg Ceftriaxone Sodium 1 gm/ (Sodium Chloride) 100 mls @ 200 mls/hr IVPB DAILY@ 1700 [facility] Lactic Acid (Lac-Hydrin 12% Lotion (225 G)) 1 applic TOP TID@0900,1700,2200 [facility] Last Admin: 05/07/17 08:44 Dose: 1 applic Magnesium Hydroxide (Milk Of Magnesia) 30 ml PO DAILY [facility] Last Admin: 05/07/17 08:46 Dose: Not Given Metoprolol Tartrate (Lopressor) 25 mg PO Q12H [facility] Last Admin: 05/07/17 08:45 Dose: 25 mg Fluticasone/Salmeterol (Advair Diskus 250/50) 1 puff IH Q12 [facility] Last Admin: 05/06/17 21:10 Dose: 1 puff Tiotropium [place] (Spiriva) 18 mcg INH DAILY [facility] Last Admin: 05/07/17 08:44 Dose: 18 mcg Tramadol HCl (Ultram) 50 mg PO BID PRN PRN Reason: Pain, moderate (4-7) Last Admin: 05/07/17 08:43 Dose: 50 mg - Labs Labs: 05/06/17 05:40 05/06/17 05:40 - Constitutional Appears: No Acute Distress - Head Exam Head Exam: NORMAL INSPECTION - Neurological Exam Neurological Exam: Alert, Awake Neuro motor strength exam: Left Upper Extremity: 5, Right Upper Extremity: 5, Left Lower Extremity: 4, Right Lower Extremity: 4 Additional comments: Neurological unchanged from previous examination. Assessment and Plan (1) Leg pain Assessment & Plan: Case discussed with Dr. Gould, continue all current medical, physical, and occupational therapies. Recommend [facility] as an outpatient with Dr. Tami Monterroso. Status: Acute
[2017-05-07 11:48] LABS: URIC ACID 4.3 mg/Dl (3.5-8.5)
--- NOTE | 2017-05-07 14:11 | CP.PCM.PN ---
Subjective - Date & Time of Evaluation Date of Evaluation: 05/07/17 Time of Evaluation: 14:09 - Subjective Subjective: Continues to have congested cough. Minimal sputum expectorated, non-purulent. Will add Mucinex DM one tab BID and PO Medrol 12 MG OD. Objective - Vital Signs/Intake and Output Vital Signs (last 24 hours): Temp Pulse Resp BP Pulse Ox 98.0 F 79 18 130/62 98 05/07/17 08:16 05/07/17 08:45 05/07/17 08:16 05/07/17 08:45 05/07/17 08:16 - Medications Medications: Current Medications Acetaminophen (Tylenol 325mg Tab) 650 mg PO Q6 PRN PRN Reason: Pain, Mild (1-3) Albuterol Sulfate (Albuterol 0.083% Inhal Olivia (2.5 Mg/3 Ml) Ud) 2.5 mg INH RQ4 PRN PRN Reason: Shortness of Breath Last Admin: 05/06/17 00:16 Dose: 2.5 mg Aspirin (Ecotrin) 81 mg PO DAILY [facility] Last Admin: 05/07/17 08:46 Dose: 81 mg Atorvastatin Calcium (Lipitor) 20 mg PO QPM [facility] Last Admin: 05/06/17 17:28 Dose: 20 mg Bisacodyl (Dulcolax) 10 mg [place] DAILY PRN PRN Reason: Constipation Last Admin: 05/02/17 17:16 Dose: 10 mg Enalapril Maleate (Vasotec) 10 mg PO DAILY [facility] Last Admin: 05/07/17 08:44 Dose: 10 mg Furosemide (Lasix) 20 mg PO DAILY [facility] Last Admin: 05/07/17 08:45 Dose: 20 mg Gabapentin (Neurontin) 300 mg PO TID [facility] Last Admin: 05/07/17 12:39 Dose: 300 mg Guaifenesin/Dextromethorphan (Mucinex-Dm 600-30 Mg) 1 tab PO BID [facility] Ceftriaxone Sodium 1 gm/ (Sodium Chloride) 100 mls @ 200 mls/hr IVPB DAILY@ 1700 [facility] Lactic Acid (Lac-Hydrin 12% Lotion (225 G)) 1 applic TOP TID@0900,1700,2200 [facility] Last Admin: 05/07/17 08:44 Dose: 1 applic Magnesium Hydroxide (Milk Of Magnesia) 30 ml PO DAILY [facility] Last Admin: 05/07/17 08:46 Dose: Not Given Methylprednisolone (Medrol) 12 mg PO DAILY [facility] Metoprolol Tartrate (Lopressor) 25 mg PO Q12H [facility] Last Admin: 05/07/17 08:45 Dose: 25 mg Fluticasone/Salmeterol (Advair Diskus 250/50) 1 puff IH Q12 [facility] Last Admin: 05/07/17 09:00 Dose: 1 puff Tiotropium [place] (Spiriva) 18 mcg INH DAILY [facility] Last Admin: 05/07/17 08:44 Dose: 18 mcg Tramadol HCl (Ultram) 50 mg PO TID PRN PRN Reason: Pain, moderate (4-7) - Labs Labs: 05/06/17 05:40 05/06/17 05:40 Assessment and Plan (1) 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
--- NOTE | 2017-05-07 14:38 | CP.PCM.PN ---
Subjective - Date & Time of Evaluation Date of Evaluation: 05/07/17 Time of Evaluation: 22:22 - Subjective Subjective: Above noted Objective - Vital Signs/Intake and Output Vital Signs (last 24 hours): Temp Pulse Resp BP Pulse Ox 98.0 F 79 18 130/62 98 05/07/17 08:16 05/07/17 08:45 05/07/17 08:16 05/07/17 08:45 05/07/17 08:16 - Medications Medications: Current Medications Acetaminophen (Tylenol 325mg Tab) 650 mg PO Q6 PRN PRN Reason: Pain, Mild (1-3) Albuterol Sulfate (Albuterol 0.083% Inhal [place] (2.5 Mg/3 Ml) Ud) 2.5 mg INH RQ4 PRN PRN Reason: Shortness of Breath Last Admin: 05/06/17 00:16 Dose: 2.5 mg Aspirin (Ecotrin) 81 mg PO DAILY [facility] Last Admin: 05/07/17 08:46 Dose: 81 mg Atorvastatin Calcium (Lipitor) 20 mg PO QPM [facility] Last Admin: 05/06/17 17:28 Dose: 20 mg Bisacodyl (Dulcolax) 10 mg [place] DAILY PRN PRN Reason: Constipation Last Admin: 05/02/17 17:16 Dose: 10 mg Enalapril Maleate (Vasotec) 10 mg PO DAILY [facility] Last Admin: 05/07/17 08:44 Dose: 10 mg Furosemide (Lasix) 20 mg PO DAILY [facility] Last Admin: 05/07/17 08:45 Dose: 20 mg Gabapentin (Neurontin) 300 mg PO TID [facility] Last Admin: 05/07/17 12:39 Dose: 300 mg Guaifenesin/Dextromethorphan (Mucinex-Dm 600-30 Mg) 1 tab PO BID [facility] Ceftriaxone Sodium 1 gm/ (Sodium Chloride) 100 mls @ 200 mls/hr IVPB DAILY@ 1700 [facility] Lactic Acid (Lac-Hydrin 12% Lotion (225 G)) 1 applic TOP TID@0900,1700,2200 [facility] Last Admin: 05/07/17 08:44 Dose: 1 applic Magnesium Hydroxide (Milk Of Magnesia) 30 ml PO DAILY [facility] Last Admin: 05/07/17 08:46 Dose: Not Given Methylprednisolone (Medrol) 12 mg PO DAILY [facility] Metoprolol Tartrate (Lopressor) 25 mg PO Q12H [facility] Last Admin: 05/07/17 08:45 Dose: 25 mg Fluticasone/Salmeterol (Advair Diskus 250/50) 1 puff IH Q12 [facility] Last Admin: 05/07/17 09:00 Dose: 1 puff Tiotropium [place] (Spiriva) 18 mcg INH DAILY [facility] Last Admin: 05/07/17 08:44 Dose: 18 mcg Tramadol HCl (Ultram) 50 mg PO TID PRN PRN Reason: Pain, moderate (4-7) - Labs Labs: 05/06/17 05:40 05/06/17 05:40 - Respiratory Exam Respiratory Exam: NORMAL BREATHING PATTERN - Cardiovascular Exam Cardiovascular Exam: REGULAR RHYTHM - GI/Abdominal Exam GI & Abdominal Exam: Normal Bowel Sounds Assessment and Plan - Assessment and Plan (Free Text) Assessment: Lower extremity pain etiol? Neurological vs orthopedic vs vascular Neuro Ortho IR Physiatry Arterial dopplers low extremity and abdomen wnl Vascular consult pending MRI c-spine and L-S area COPD Smoker Pulmonary Electrolyte abnormalities 2 to diuretic?? Nephrology HTN Prediabetes S/P TAVR Cardiology cellulitis??? ID
[2017-05-07 15:11] LABS: URINE BILIRUBIN NEGATIVE (NEGATIVE); URINE CLARITY SLIGHT-CLOUDY (Clear); URINE COLOR YELLOW (YELLOW); URINE GLUCOSE (UA) NEG (Normal)
[2017-05-07 15:12] LABS: URINE BACTERIA RARE (<OCC); URINE BLOOD NEGATIVE (NEGATIVE); URINE LEUKOCYTE ESTERASE NEG Leu/uL (Negative); URINE NITRATE NEGATIVE (NEGATIVE); URINE PROTEIN NEGATIVE (NEGATIVE); URINE UROBILINOGEN 0.2-1.0 mg/dL (0.2-1.0)
[2017-05-07] MEDS: guaiFENesin-DM 600-30 mg ER Tab PO SCH (17:04)
[2017-05-07 17:29] VITALS: RESP 20
[2017-05-08] MEDS: Albuterol 0.083% Inhal Sol (2.5 mg/3 mL) UD INH PRN ×2 (00:44→20:44)
[2017-05-08] MEDS: Fluticasone-Salmeterol 250-50mcg Diskus IH SCH ×2 (08:25→20:26)
[2017-05-08] MEDS: Tiotropium 18 mcg Cap For Inhalation INH SCH (08:25)
[2017-05-08] MEDS: guaiFENesin-DM 600-30 mg ER Tab PO SCH ×2 (08:26→16:41)
[2017-05-08] MEDS: Magnesium Hydroxide Susp 30 ml UD PO SCH (08:28)
--- NOTE | 2017-05-08 08:42 | PN ---
DATE: 05/08/2017 SUBJECTIVE: The patient is seen and examined. The patient is seen by while he is away. The patient feels okay, but still complains of both lower extremity pain. No chest pain, no shortness of breath. PHYSICAL EXAMINATION: GENERAL: The patient is in no acute distress. VITAL SIGNS: Stable. HEART: S1 and S2, normal and regular. LUNGS: Good bilateral air exchange. ABDOMEN: Soft and nontender. EXTREMITIES: No edema. No calf swelling. No tenderness. No acute ischemia. No sign of acute distal neurovascular compromise. CENTRAL NERVOUS SYSTEM: Exam is essentially unchanged. DIAGNOSTIC DATA: Available diagnostic data reviewed. MRI shows severe degenerative disc disease, consistent with cauda equina syndrome. neurologist who suggested neurosurgical consult with Dr. Reeves, which is pending. ASSESSMENT AND PLAN: Our plan as ordered. Case and plan discussed with the patient. Pop Farley MD
--- NOTE | 2017-05-08 12:51 | CP.PCM.PN ---
Subjective - Date & Time of Evaluation Date of Evaluation: 05/08/17 Time of Evaluation: 10:00 - Subjective Subjective: no fever or leukocytosis less sob Objective - Vital Signs/Intake and Output Vital Signs (last 24 hours): Temp Pulse Resp BP Pulse Ox 97.7 F 68 20 114/56 L 99 05/08/17 08:20 05/08/17 08:30 05/08/17 08:20 05/08/17 08:30 05/08/17 08:20 - Medications Medications: Current Medications Acetaminophen (Tylenol 325mg Tab) 650 mg PO Q6 PRN PRN Reason: Pain, Mild (1-3) Albuterol Sulfate (Albuterol 0.083% Inhal [place] (2.5 Mg/3 Ml) Ud) 2.5 mg INH RQ4 PRN PRN Reason: Shortness of Breath Last Admin: 05/08/17 00:44 Dose: 2.5 mg Aspirin (Ecotrin) 81 mg PO DAILY [facility] Last Admin: 05/08/17 08:26 Dose: 81 mg Atorvastatin Calcium (Lipitor) 20 mg PO QPM [facility] Last Admin: 05/07/17 17:03 Dose: 20 mg Bisacodyl (Dulcolax) 10 mg [place] DAILY PRN PRN Reason: Constipation Last Admin: 05/02/17 17:16 Dose: 10 mg Enalapril Maleate (Vasotec) 10 mg PO DAILY [facility] Last Admin: 05/07/17 08:44 Dose: 10 mg Furosemide (Lasix) 20 mg PO DAILY [facility] Last Admin: 05/07/17 08:45 Dose: 20 mg Gabapentin (Neurontin) 300 mg PO TID [facility] Last Admin: 05/08/17 12:00 Dose: 300 mg Guaifenesin/Dextromethorphan (Mucinex-Dm 600-30 Mg) 1 tab PO BID [facility] Last Admin: 05/08/17 08:26 Dose: 1 tab Ceftriaxone Sodium 1 gm/ (Sodium Chloride) 100 mls @ 200 mls/hr IVPB DAILY@ 1700 [facility] Last Admin: 05/07/17 17:02 Dose: 200 mls/hr Lactic Acid (Lac-Hydrin 12% Lotion (225 G)) 1 applic TOP TID@0900,1700,2200 [facility] Last Admin: 05/08/17 08:25 Dose: 1 applic Magnesium Hydroxide (Milk Of Magnesia) 30 ml PO DAILY [facility] Last Admin: 05/08/17 08:28 Dose: Not Given Methylprednisolone (Medrol) 12 mg PO DAILY [facility] Last Admin: 05/08/17 08:26 Dose: 12 mg Metoprolol Tartrate (Lopressor) 25 mg PO Q12H [facility] Last Admin: 05/08/17 08:30 Dose: 25 mg Fluticasone/Salmeterol (Advair Diskus 250/50) 1 puff IH Q12 [facility] Last Admin: 05/08/17 08:25 Dose: 1 puff Tiotropium [place] (Spiriva) 18 mcg INH DAILY [facility] Last Admin: 05/08/17 08:25 Dose: 18 mcg Tramadol HCl (Ultram) 50 mg PO TID PRN PRN Reason: Pain, moderate (4-7) Last Admin: 05/08/17 08:35 Dose: 50 mg - Labs Labs: 05/06/17 05:40 05/06/17 05:40 - Constitutional Appears: Non-toxic, Chronically Ill - Head Exam Head Exam: NORMOCEPHALIC - Eye Exam Eye Exam: PERRL - ENT Exam ENT Exam: Mucous Membranes Dry - Neck Exam Neck Exam: absent: Lymphadenopathy - Respiratory Exam Respiratory Exam: Decreased Breath Sounds - Cardiovascular Exam Cardiovascular Exam: REGULAR RHYTHM - GI/Abdominal Exam GI & Abdominal Exam: Distended, Soft Assessment and Plan (1) Hypoxemia Status: Acute (2) Leg pain Status: Acute (3) Leukocytosis Status: Acute (4) Venous stasis of both lower extremities Status: Acute (5) Aortic stenosis Status: Chronic (6) Cough Status: Chronic (7) Leg edema Status: Chronic - Assessment and Plan (Free Text) Assessment: cont iv rocephin
--- NOTE | 2017-05-08 15:03 | CP.PCM.PN ---
Subjective - Date & Time of Evaluation Date of Evaluation: 05/08/17 Time of Evaluation: 14:59 - Subjective Subjective: NO CHANGES CLINICALLY CHRONIC PAIN NA COMING DOWN TO 129 Objective - Vital Signs/Intake and Output Vital Signs (last 24 hours): Temp Pulse Resp BP Pulse Ox 97.7 F 68 20 114/56 L 99 05/08/17 08:20 05/08/17 08:30 05/08/17 08:20 05/08/17 08:30 05/08/17 08:20 - Medications Medications: Current Medications Acetaminophen (Tylenol 325mg Tab) 650 mg PO Q6 PRN PRN Reason: Pain, Mild (1-3) Albuterol Sulfate (Albuterol 0.083% Inhal [place] (2.5 Mg/3 Ml) Ud) 2.5 mg INH RQ4 PRN PRN Reason: Shortness of Breath Last Admin: 05/08/17 00:44 Dose: 2.5 mg Aspirin (Ecotrin) 81 mg PO DAILY [facility] Last Admin: 05/08/17 08:26 Dose: 81 mg Atorvastatin Calcium (Lipitor) 20 mg PO QPM [facility] Last Admin: 05/07/17 17:03 Dose: 20 mg Bisacodyl (Dulcolax) 10 mg [place] DAILY PRN PRN Reason: Constipation Last Admin: 05/02/17 17:16 Dose: 10 mg Enalapril Maleate (Vasotec) 10 mg PO DAILY [facility] Last Admin: 05/07/17 08:44 Dose: 10 mg Furosemide (Lasix) 20 mg PO DAILY [facility] Last Admin: 05/07/17 08:45 Dose: 20 mg Gabapentin (Neurontin) 300 mg PO TID [facility] Last Admin: 05/08/17 12:00 Dose: 300 mg Guaifenesin/Dextromethorphan (Mucinex-Dm 600-30 Mg) 1 tab PO BID [facility] Last Admin: 05/08/17 08:26 Dose: 1 tab Ceftriaxone Sodium 1 gm/ (Sodium Chloride) 100 mls @ 200 mls/hr IVPB DAILY@ 1700 [facility] Last Admin: 05/07/17 17:02 Dose: 200 mls/hr Lactic Acid (Lac-Hydrin 12% Lotion (225 G)) 1 applic TOP TID@0900,1700,2200 [facility] Last Admin: 05/08/17 08:25 Dose: 1 applic Magnesium Hydroxide (Milk Of Magnesia) 30 ml PO DAILY [facility] Last Admin: 05/08/17 08:28 Dose: Not Given Methylprednisolone (Medrol) 12 mg PO DAILY [facility] Last Admin: 05/08/17 08:26 Dose: 12 mg Metoprolol Tartrate (Lopressor) 25 mg PO Q12H [facility] Last Admin: 05/08/17 08:30 Dose: 25 mg Fluticasone/Salmeterol (Advair Diskus 250/50) 1 puff IH Q12 [facility] Last Admin: 05/08/17 08:25 Dose: 1 puff Tiotropium [place] (Spiriva) 18 mcg INH DAILY [facility] Last Admin: 05/08/17 08:25 Dose: 18 mcg Tramadol HCl (Ultram) 50 mg PO TID PRN PRN Reason: Pain, moderate (4-7) Last Admin: 05/08/17 08:35 Dose: 50 mg - Labs Labs: 05/06/17 05:40 05/06/17 05:40 - Constitutional Appears: No Acute Distress - Neck Exam Neck Exam: absent: Lymphadenopathy - Respiratory Exam Respiratory Exam: absent: Chest Wall Tenderness, NORMAL BREATHING PATTERN - Cardiovascular Exam Cardiovascular Exam: absent: Gallop, JVD, Rubs - GI/Abdominal Exam GI & Abdominal Exam: Soft, Normal Bowel Sounds - Extremities Exam Extremities Exam: absent: Calf Tenderness - Back Exam Back Exam: absent: CVA tenderness (L), CVA tenderness (R) - Neurological Exam Neurological Exam: Alert - Psychiatric Exam Psychiatric exam: Anxious - Skin Skin Exam: absent: Cyanosis Assessment and Plan (1) Hyponatremia Assessment & Plan: HYPONATREMIA AND HYPOCHLOREMIA MAY BE DIURETIC INDUCED? 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
--- NOTE | 2017-05-08 15:21 | CP.PCM.CON ---
History of Present Illness - History of Present Illness History of Present Illness: SPINE CONSULT Pt seen and examined. Full consult dictated. Strongly recommend decompressive laminectomy, given severe stenosis and pt's complaints of pain with difficulty ambulating. He will speak with family and his doctors to see if medical clearance for general anesthesia is even possible. Thanks. Past Patient History - Past Medical History & Family History Past Medical History?: Yes - Past Social History Smoking Status: Former Smoker Chewing Tobacco Use: No Cigar Use: No Alcohol: > 2 Drinks/Day Drugs: Denies Home Situation {Lives}: With Family - CARDIAC Hx Hypertension: Yes - PULMONARY Hx Bronchitis: Yes Hx Chronic Obstructive Pulmonary Disease (COPD): Yes - NEUROLOGICAL Hx Neurological Disorder: No - HEENT Hx HEENT Problems: No - RENAL Hx Chronic Kidney Disease: No - ENDOCRINE/METABOLIC Hx Endocrine Disorders: No - HEMATOLOGICAL/ONCOLOGICAL Hx Blood Disorders: No - INTEGUMENTARY Hx Dermatological Problems: No - MUSCULOSKELETAL/RHEUMATOLOGICAL Hx Falls: No Other/Comment: Painful swelling of both lower extremities - GASTROINTESTINAL Hx Gastrointestinal Disorders: No - GENITOURINARY/GYNECOLOGICAL Hx Genitourinary Disorders: No - PSYCHIATRIC Hx Psychophysiologic Disorder: No Hx Substance Use: No - SURGICAL HISTORY Hx Surgeries: No Other/Comment: heart valve replacement - ANESTHESIA Hx Anesthesia: Yes Hx Anesthesia Reactions: No Hx Malignant Hyperthermia: No Meds Allergies/Adverse Reactions: Allergies Allergy/AdvReac Type Severity Reaction Status Date / Time No Known Allergies Allergy Verified 07/28/16 15:35 - Medications Medications: Current Medications Acetaminophen (Tylenol 325mg Tab) 650 mg PO Q6 PRN PRN Reason: Pain, Mild (1-3) Albuterol Sulfate (Albuterol 0.083% Inhal [place] (2.5 Mg/3 Ml) Ud) 2.5 mg INH RQ4 PRN PRN Reason: Shortness of Breath Last Admin: 05/08/17 00:44 Dose: 2.5 mg Aspirin (Ecotrin) 81 mg PO DAILY [facility] Last Admin: 05/08/17 08:26 Dose: 81 mg Atorvastatin Calcium (Lipitor) 20 mg PO QPM [facility] Last Admin: 05/07/17 17:03 Dose: 20 mg Bisacodyl (Dulcolax) 10 mg [place] DAILY PRN PRN Reason: Constipation Last Admin: 05/02/17 17:16 Dose: 10 mg Enalapril Maleate (Vasotec) 10 mg PO DAILY [facility] Last Admin: 05/07/17 08:44 Dose: 10 mg Furosemide (Lasix) 20 mg PO DAILY [facility] Last Admin: 05/07/17 08:45 Dose: 20 mg Gabapentin (Neurontin) 300 mg PO TID [facility] Last Admin: 05/08/17 12:00 Dose: 300 mg Guaifenesin/Dextromethorphan (Mucinex-Dm 600-30 Mg) 1 tab PO BID [facility] Last Admin: 05/08/17 08:26 Dose: 1 tab Ceftriaxone Sodium 1 gm/ (Sodium Chloride) 100 mls @ 200 mls/hr IVPB DAILY@ 1700 [facility] Last Admin: 05/07/17 17:02 Dose: 200 mls/hr Lactic Acid (Lac-Hydrin 12% Lotion (225 G)) 1 applic TOP TID@0900,1700,2200 [facility] Last Admin: 05/08/17 08:25 Dose: 1 applic Magnesium Hydroxide (Milk Of Magnesia) 30 ml PO DAILY [facility] Last Admin: 05/08/17 08:28 Dose: Not Given Methylprednisolone (Medrol) 12 mg PO DAILY [facility] Last Admin: 05/08/17 08:26 Dose: 12 mg Metoprolol Tartrate (Lopressor) 25 mg PO Q12H [facility] Last Admin: 05/08/17 08:30 Dose: 25 mg Fluticasone/Salmeterol (Advair Diskus 250/50) 1 puff IH Q12 [facility] Last Admin: 05/08/17 08:25 Dose: 1 puff Tiotropium [place] (Spiriva) 18 mcg INH DAILY [facility] Last Admin: 05/08/17 08:25 Dose: 18 mcg Tramadol HCl (Ultram) 50 mg PO TID PRN PRN Reason: Pain, moderate (4-7) Last Admin: 05/08/17 08:35 Dose: 50 mg Results - Vital Signs Recent Vital Signs: Last Vital Signs Temp 97.7 F 05/08/17 08:20 Pulse 68 05/08/17 08:30 Resp 20 05/08/17 08:20 BP 114/56 L 05/08/17 08:30 Pulse Ox 99 05/08/17 08:20 - Labs Result Diagrams: 05/06/17 05:40 05/06/17 05:40 Labs: Laboratory Results - last 24 hr 05/06/17 05/07/17 05:40 14:50 RBC Folate 603 Urine Osmolality 288 L Ur Random Creatinine 37.0 Ur Random Sodium 71
[2017-05-08 16:25] LABS: ALDOLASE 4.5 U/L (<=8.1)
[2017-05-09] MEDS: Albuterol 0.083% Inhal Sol (2.5 mg/3 mL) UD INH PRN (03:23)
[2017-05-09 07:54] LABS: BLOOD UREA NITROGEN 14 mg/dl (9-20); CALCIUM 9.3 mg/dL (8.4-10.2); GFR AFRICAN-AMERICAN > 60; GFR NON-AFRICAN AMERICAN > 60
[2017-05-09] MEDS: Tiotropium 18 mcg Cap For Inhalation INH SCH (08:35)
[2017-05-09] MEDS: Fluticasone-Salmeterol 250-50mcg Diskus IH SCH ×2 (08:35→21:02)
[2017-05-09] MEDS: guaiFENesin-DM 600-30 mg ER Tab PO SCH ×2 (08:37→16:38)
[2017-05-09] MEDS: Magnesium Hydroxide Susp 30 ml UD PO SCH (08:38)
--- NOTE | 2017-05-09 10:59 | CP.PCM.PN ---
Subjective - Date & Time of Evaluation Date of Evaluation: 05/09/17 Time of Evaluation: 10:59 - Subjective Subjective: RENAL FOLLOW UP S: seen and examined complains of back pain o: vss gen nad sclera anicteric op clear neck supple +s1+s2 lungs cta abd soft ext no edema psych: nml affect skin no rash imp: hyponatremia / hypertension / anemia / hyperkalemia plan: na improved w/ tolvaptan lasix on hold bp stable hgb stable k back to wnl Objective - Vital Signs/Intake and Output Vital Signs (last 24 hours): Temp Pulse Resp BP Pulse Ox 97.1 F L 66 20 130/57 L 98 05/09/17 09:01 05/09/17 09:01 05/09/17 09:01 05/09/17 09:01 05/09/17 09:01 - Medications Medications: Current Medications Acetaminophen (Tylenol 325mg Tab) 650 mg PO Q6 PRN PRN Reason: Pain, Mild (1-3) Albuterol Sulfate (Albuterol 0.083% Inhal Olivia (2.5 Mg/3 Ml) Ud) 2.5 mg INH RQ4 PRN PRN Reason: Shortness of Breath Last Admin: 05/09/17 03:23 Dose: 2.5 mg Aspirin (Ecotrin) 81 mg PO DAILY [facility] Last Admin: 05/09/17 08:36 Dose: 81 mg Atorvastatin Calcium (Lipitor) 20 mg PO QPM [facility] Last Admin: 05/08/17 17:31 Dose: 20 mg Bisacodyl (Dulcolax) 10 mg [place] DAILY PRN PRN Reason: Constipation Last Admin: 05/02/17 17:16 Dose: 10 mg Enalapril Maleate (Vasotec) 10 mg PO DAILY [facility] Last Admin: 05/07/17 08:44 Dose: 10 mg Furosemide (Lasix) 20 mg PO DAILY [facility] Last Admin: 05/07/17 08:45 Dose: 20 mg Gabapentin (Neurontin) 300 mg PO TID [facility] Last Admin: 05/09/17 08:38 Dose: 300 mg Guaifenesin/Dextromethorphan (Mucinex-Dm 600-30 Mg) 1 tab PO BID [facility] Last Admin: 05/09/17 08:37 Dose: 1 tab Ceftriaxone Sodium 1 gm/ (Sodium Chloride) 100 mls @ 200 mls/hr IVPB DAILY@ 1700 [facility] Last Admin: 05/08/17 16:42 Dose: 200 mls/hr Lactic Acid (Lac-Hydrin 12% Lotion (225 G)) 1 applic TOP TID@0900,1700,2200 [facility] Last Admin: 05/09/17 08:37 Dose: 1 applic Magnesium Hydroxide (Milk Of Magnesia) 30 ml PO DAILY [facility] Last Admin: 05/09/17 08:38 Dose: Not Given Methylprednisolone (Medrol) 8 mg PO DAILY [facility] Metoprolol Tartrate (Lopressor) 25 mg PO Q12H [facility] Last Admin: 05/09/17 08:36 Dose: 25 mg Fluticasone/Salmeterol (Advair Diskus 250/50) 1 puff IH Q12 [facility] Last Admin: 05/09/17 08:35 Dose: 1 units Tiotropium [place] (Spiriva) 18 mcg INH DAILY [facility] Last Admin: 05/09/17 08:35 Dose: 18 mcg Tramadol HCl (Ultram) 50 mg PO TID PRN PRN Reason: Pain, moderate (4-7) Last Admin: 05/09/17 08:38 Dose: 50 mg - Labs Labs: 05/06/17 05:40 05/09/17 07:19
--- NOTE | 2017-05-09 11:15 | PN ---
DATE: 05/09/2017 SUBJECTIVE: The patient is seen and examined. Interim events noted. Consults noted and appreciated. Neurology and Neurosurgery consult and intervention noted and appreciated. The patient remains in Transitional Care Unit. Still has similar complaint of leg pain. PHYSICAL EXAMINATION: GENERAL: The patient is in no acute distress. VITAL SIGNS: Stable. HEART: S1 and S2, normal and regular. LUNGS: Good bilateral air exchange. ABDOMEN: Soft and nontender. No organomegaly. No fluid. Bowel sounds are present and normal. EXTREMITIES: No edema. No calf swelling. No tenderness. No acute ischemia. 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 DIAGNOSTIC DATA: Available diagnostic data is reviewed. Neurosurgery intervention noted and appreciated. PLAN: Plan as ordered. Pop Farley MD
--- NOTE | 2017-05-09 16:00 | CP.PCM.PN ---
Subjective - Date & Time of Evaluation Date of Evaluation: 05/09/17 Time of Evaluation: 15:00 - Subjective Subjective: NO CHEST PAIN BREATHING BETTER Objective - Vital Signs/Intake and Output Vital Signs (last 24 hours): Temp Pulse Resp BP Pulse Ox 97.1 F L 66 20 130/57 L 95 05/09/17 09:01 05/09/17 09:01 05/09/17 09:01 05/09/17 09:01 05/09/17 11:51 - Medications Medications: Current Medications Acetaminophen (Tylenol 325mg Tab) 650 mg PO Q6 PRN PRN Reason: Pain, Mild (1-3) Albuterol Sulfate (Albuterol 0.083% Inhal [place] (2.5 Mg/3 Ml) Ud) 2.5 mg INH RQ4 PRN PRN Reason: Shortness of Breath Last Admin: 05/09/17 03:23 Dose: 2.5 mg Aspirin (Ecotrin) 81 mg PO DAILY [facility] Last Admin: 05/09/17 08:36 Dose: 81 mg Atorvastatin Calcium (Lipitor) 20 mg PO QPM [facility] Last Admin: 05/08/17 17:31 Dose: 20 mg Bisacodyl (Dulcolax) 10 mg [place] DAILY PRN PRN Reason: Constipation Last Admin: 05/02/17 17:16 Dose: 10 mg Enalapril Maleate (Vasotec) 10 mg PO DAILY [facility] Last Admin: 05/07/17 08:44 Dose: 10 mg Furosemide (Lasix) 20 mg PO DAILY [facility] Last Admin: 05/07/17 08:45 Dose: 20 mg Gabapentin (Neurontin) 300 mg PO TID [facility] Last Admin: 05/09/17 08:38 Dose: 300 mg Guaifenesin/Dextromethorphan (Mucinex-Dm 600-30 Mg) 1 tab PO BID [facility] Last Admin: 05/09/17 08:37 Dose: 1 tab Ceftriaxone Sodium 1 gm/ (Sodium Chloride) 100 mls @ 200 mls/hr IVPB DAILY@ 1700 [facility] Last Admin: 05/08/17 16:42 Dose: 200 mls/hr Lactic Acid (Lac-Hydrin 12% Lotion (225 G)) 1 applic TOP TID@0900,1700,2200 [facility] Last Admin: 05/09/17 08:37 Dose: 1 applic Magnesium Hydroxide (Milk Of Magnesia) 30 ml PO DAILY [facility] Last Admin: 05/09/17 08:38 Dose: Not Given Methylprednisolone (Medrol) 8 mg PO DAILY [facility] Metoprolol Tartrate (Lopressor) 25 mg PO Q12H [facility] Last Admin: 05/09/17 08:36 Dose: 25 mg Fluticasone/Salmeterol (Advair Diskus 250/50) 1 puff IH Q12 [facility] Last Admin: 05/09/17 08:35 Dose: 1 units Tiotropium [place] (Spiriva) 18 mcg INH DAILY [facility] Last Admin: 05/09/17 08:35 Dose: 18 mcg Tramadol HCl (Ultram) 50 mg PO TID PRN PRN Reason: Pain, moderate (4-7) Last Admin: 05/09/17 08:38 Dose: 50 mg - Labs Labs: 05/06/17 05:40 05/09/17 07:19 - Respiratory Exam Additional comments: CLEARER BILAT - Cardiovascular Exam Cardiovascular Exam: REGULAR RHYTHM, +S1, +S2 Assessment and Plan - Assessment and Plan (Free Text) Assessment: S/P TAVR HYPERTENSION HYPERLIPIDEMIA COPD Plan: CONTINUE ASPIRIN, FUROSEMIDE, ATORVASTATIN, METOPROLOL, ENALAPRIL, ANTIBIOTICS, BRONCHODILATORS
[2017-05-10 08:03] LABS: HEMOGLOBIN 11.6 g/dL (12.0-18.0); MEAN CELL VOLUME 100.3 fl (80.0-94.0); MEAN CORPUSCULAR HEMOGLOBIN 32.2 pg (27.0-31.0); MEAN CORPUSCULAR HGB CONC 32.1 g/dL (33.0-37.0); RBC 3.61 Mil/uL (4.40-5.90); RED CELL DISTRIBUTION WIDTH 13.9 % (11.5-14.5); WHITE BLOOD COUNT 4.4 K/uL (4.8-10.8)
[2017-05-10 08:24] LABS: ALB/GLOB RATIO 1.3 (1.0-2.1); ALT/SGPT 63 U/L (21-72); AST/SGOT 40 U/L (17-59); BLOOD UREA NITROGEN 14 mg/dl (9-20); CALCIUM 9.3 mg/dL (8.4-10.2); GFR AFRICAN-AMERICAN > 60; GFR NON-AFRICAN AMERICAN > 60
--- NOTE | 2017-05-10 08:30 | PN ---
DATE: 05/10/2017 SUBJECTIVE: The patient is seen and examined. Interim events noted. Consults noted and appreciated. Cardiology and Nephrology followup and interventions noted and appreciated. The patient remains in Transitional Care Unit. Still complains of similar pain, although seems to be little better. PHYSICAL EXAMINATION: GENERAL: The patient is in no acute distress. VITAL SIGNS: Stable. HEART: S1 and S2, normal and regular. LUNGS: Good bilateral air exchange. ABDOMEN: Soft and nontender. EXTREMITIES: No edema, no calf swelling. No tenderness. No acute ischemia. 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 DIAGNOSTIC DATA: Available diagnostic data reviewed. PLAN: Overall, the patient's general medical condition is stable. Plan as ordered. Pop Farley MD
[2017-05-10] MEDS: Fluticasone-Salmeterol 250-50mcg Diskus IH SCH ×2 (08:40→20:34)
[2017-05-10] MEDS: Magnesium Hydroxide Susp 30 ml UD PO SCH (08:41)
[2017-05-10] MEDS: Tiotropium 18 mcg Cap For Inhalation INH SCH (09:13)
[2017-05-10] MEDS: guaiFENesin-DM 600-30 mg ER Tab PO SCH ×2 (09:13→16:11)
[2017-05-10] MEDS: Albuterol 0.083% Inhal Sol (2.5 mg/3 mL) UD INH PRN (19:44)
[2017-05-11] MEDS: Albuterol 0.083% Inhal Sol (2.5 mg/3 mL) UD INH PRN ×3 (03:11→23:56)
[2017-05-11 06:33] LABS: HEMOGLOBIN 11.8 g/dL (12.0-18.0); MEAN CELL VOLUME 98.4 fl (80.0-94.0); MEAN CORPUSCULAR HGB CONC 33.5 g/dL (33.0-37.0); RBC 3.59 Mil/uL (4.40-5.90); RED CELL DISTRIBUTION WIDTH 13.8 % (11.5-14.5); WHITE BLOOD COUNT 4.5 K/uL (4.8-10.8)
[2017-05-11 06:51] LABS: ALB/GLOB RATIO 1.2 (1.0-2.1); ALBUMIN 3.8 g/dL (3.5-5.0); ALT/SGPT 54 U/L (21-72); AST/SGOT 31 U/L (17-59); BLOOD UREA NITROGEN 15 mg/dl (9-20); GFR AFRICAN-AMERICAN > 60; GFR NON-AFRICAN AMERICAN > 60
--- NOTE | 2017-05-11 07:19 | CON ---
DATE: 05/08/2017 REASON FOR CONSULTATION: Spinal stenosis. HISTORY OF PRESENT ILLNESS: The patient is an 87-year-old gentleman, who was admitted to the hospital a week ago with bilateral lower extremity pain. He states he had pain initially just in the right leg, but he complains of pain at rest and it gets worse with ambulation. He states he cannot lie flat in bed and he feels better if he is flexed at the waist and bent over when he walks. No loss of bowel or bladder control that he reports. PAST MEDICAL HISTORY: Significant for hypertension, hypercholesterolemia, gout, CHF, aortic stenosis, and COPD. PAST SURGICAL HISTORY: Significant for TAVR. MEDICATIONS: As listed on the chart. ALLERGIES: HE IS NOT ALLERGIC TO ANY MEDICATIONS HE KNOWS OF. SOCIAL HISTORY: He states he was a half-a-pack a day smoker for 20 years, but he quit two years ago. PHYSICAL EXAMINATION: On examination, no other significant complaints of pain to palpation of lumbar spine. He is able to move both lower extremities actively. He states his sensation is intact to light touch. He appears to have good motor strength throughout. Descent distal pulses. No clonus or Babinski is noted. DIAGNOSTIC DATA: He had an MRI of his lumbar spine done yesterday. It shows some Modic end-plate changes of the inferior end-plate of L2. He has disc desiccation throughout the lower lumbar spine, but no significant loss of disc height. He has significant thickening of the ligament flavum and facet hypertrophy resulting in significant stenosis at the L3-L4 level. He appears to have a large central disc herniation in combination with thickening of ligamentum and facet hypertrophy at L4-L5 causing severe stenosis there as well. No obvious vertebral body abnormalities. IMPRESSION AND PLAN: Severe spinal stenosis at L3-L4 and L4-L5. The patient obviously has significant cardiac and pulmonary history. He is sitting out of bed to chair with oxygen via nasal cannula. If he is severely limited as he seems to be in terms of pain in his legs and unable to walk significant distances because of that, he would benefit greatly from the decompressive laminectomy at these levels. Scientifically, 80 to 85% of the patient's who have laminectomy done for this problem, state that they have good improvement in leg symptoms and ability to ambulate better. Obviously, nothing can be guaranteed 100%, but certainly he has severe stenosis and I believe strongly would benefit from laminectomy. He needs to talk to his family and make a decision as well as talk to you and proceed if medically, given all his other conditions, he is a candidate for general anesthesia and the operation. The surgery will probably take about an hour to an hour and a half and we would try and mobilize him the next day. I will await his discussion with his family as well as talking to you about it and we will follow up accordingly with future plan. One option has been mentioned is a lumbar epidural injection. However, given the severe pressure that the thecal sac is already under, I would be a little hesitant about putting a needle and injecting fluid that would at least on a temporary basis would increase the pressure in the epidural area. Also, given the degree of stenosis, I doubt that an epidural is really do anything to give any lasting or significant relief. Thank you again for allowing me to participate in the care of your patient. Moshe Rojas MD MTDJose
[2017-05-11] MEDS: Fluticasone-Salmeterol 250-50mcg Diskus IH SCH ×2 (08:04→20:47)
[2017-05-11] MEDS: Tiotropium 18 mcg Cap For Inhalation INH SCH (08:04)
[2017-05-11] MEDS: guaiFENesin-DM 600-30 mg ER Tab PO SCH ×2 (08:04→16:22)
[2017-05-11] MEDS: Magnesium Hydroxide Susp 30 ml UD PO SCH (08:10)
--- NOTE | 2017-05-11 08:44 | PN ---
DATE: 05/11/2017 SUBJECTIVE: The patient is seen and examined. Interim events noted. The patient remains in regular medical floor in Transitional Care Unit. Feels okay. Still has persistent complaints, but seems to be better. Today, no chest pain. No shortness of breath. PHYSICAL EXAMINATION: GENERAL: The patient is in no acute distress. VITAL SIGNS: Stable. HEART: S1 and S2, normal and regular. LUNGS: Good bilateral air exchange. ABDOMEN: Soft and nontender. EXTREMITIES: No edema, no calf swelling, no tenderness. No acute ischemia. CENTRAL NERVOUS SYSTEM: Essentially unchanged. DIAGNOSTIC DATA: Available diagnostic data reviewed. ASSESSMENT AND PLAN: Overall, the patient's general medical condition is stable. Plan as ordered. Pop Farley MD
--- NOTE | 2017-05-11 09:44 | CP.PCM.PN ---
Subjective - Date & Time of Evaluation Date of Evaluation: 05/11/17 Time of Evaluation: 09:42 - Subjective Subjective: OOB in chair feeling good Objective - Vital Signs/Intake and Output Vital Signs (last 24 hours): Temp Pulse Resp BP Pulse Ox 97.7 F 67 20 141/60 99 05/11/17 07:53 05/11/17 07:53 05/11/17 07:53 05/11/17 08:04 05/11/17 07:53 - Medications Medications: Current Medications Acetaminophen (Tylenol 325mg Tab) 650 mg PO Q6 PRN PRN Reason: Pain, Mild (1-3) Albuterol Sulfate (Albuterol 0.083% Inhal [place] (2.5 Mg/3 Ml) Ud) 2.5 mg INH RQ4 PRN PRN Reason: Shortness of Breath Last Admin: 05/11/17 03:11 Dose: 2.5 mg Aspirin (Ecotrin) 81 mg PO DAILY [facility] Last Admin: 05/11/17 08:05 Dose: 81 mg Atorvastatin Calcium (Lipitor) 20 mg PO QPM [facility] Last Admin: 05/10/17 17:33 Dose: 20 mg Bisacodyl (Dulcolax) 10 mg [place] DAILY PRN PRN Reason: Constipation Last Admin: 05/02/17 17:16 Dose: 10 mg Enalapril Maleate (Vasotec) 10 mg PO DAILY [facility] Last Admin: 05/11/17 08:05 Dose: 10 mg Furosemide (Lasix) 20 mg PO DAILY [facility] Last Admin: 05/11/17 08:04 Dose: 20 mg Gabapentin (Neurontin) 300 mg PO TID [facility] Last Admin: 05/11/17 08:05 Dose: 300 mg Guaifenesin/Dextromethorphan (Mucinex-Dm 600-30 Mg) 1 tab PO BID [facility] Last Admin: 05/11/17 08:04 Dose: 1 tab Ceftriaxone Sodium 1 gm/ (Sodium Chloride) 100 mls @ 200 mls/hr IVPB DAILY@ 1700 [facility] Last Admin: 05/10/17 16:11 Dose: 200 mls/hr Lactic Acid (Lac-Hydrin 12% Lotion (225 G)) 1 applic TOP TID@0900,1700,2200 [facility] Last Admin: 05/11/17 08:04 Dose: 1 applic Magnesium Hydroxide (Milk Of Magnesia) 30 ml PO DAILY [facility] Last Admin: 05/11/17 08:10 Dose: Not Given Methylprednisolone (Medrol) 8 mg PO DAILY [facility] Last Admin: 05/11/17 08:04 Dose: 8 mg Metoprolol Tartrate (Lopressor) 25 mg PO Q12H [facility] Last Admin: 05/10/17 20:36 Dose: 25 mg Fluticasone/Salmeterol (Advair Diskus 250/50) 1 puff IH Q12 [facility] Last Admin: 05/11/17 08:04 Dose: 1 puff Tiotropium [place] (Spiriva) 18 mcg INH DAILY [facility] Last Admin: 05/11/17 08:04 Dose: 18 mcg Tramadol HCl (Ultram) 50 mg PO TID PRN PRN Reason: Pain, moderate (4-7) Last Admin: 05/11/17 09:08 Dose: 50 mg - Labs Labs: 05/11/17 05:40 05/11/17 05:40 - Constitutional Appears: No Acute Distress - ENT Exam ENT Exam: Mucous Membranes Moist - Cardiovascular Exam Cardiovascular Exam: REGULAR RHYTHM. 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
--- NOTE | 2017-05-11 10:49 | CP.PCM.PN ---
Subjective - Date & Time of Evaluation Date of Evaluation: 05/11/17 Time of Evaluation: 10:43 - Subjective Subjective: Interim findings reviewed. Has a congested but non-productive cough. Claims he cannot expectorate, but appears to swallow phlegm when he coughs. Vital signs remain stable, he continues to be afebrile. No leukocytosis, adequately oxygenated. Ambulatory with physical therapy. Leg swelling is less, but still has pain in both legs. Sonorous rhonchi are heard bilaterally with few low pitched expiratory wheezes. No bronchial breath sounds or egophony. No dullness on chest percussion. Dependant edema has decreased significantly. Continue present regimen. Would not increase guaifenesin. May need laminectomy. I would decrease his medrol to 4MG on . Objective - Vital Signs/Intake and Output Vital Signs (last 24 hours): Temp Pulse Resp BP Pulse Ox 97.7 F 67 20 141/60 99 05/11/17 07:53 05/11/17 07:53 05/11/17 07:53 05/11/17 08:04 05/11/17 07:53 - Medications Medications: Current Medications Acetaminophen (Tylenol 325mg Tab) 650 mg PO Q6 PRN PRN Reason: Pain, Mild (1-3) Albuterol Sulfate (Albuterol 0.083% Inhal [place] (2.5 Mg/3 Ml) Ud) 2.5 mg INH RQ4 PRN PRN Reason: Shortness of Breath Last Admin: 05/11/17 03:11 Dose: 2.5 mg Aspirin (Ecotrin) 81 mg PO DAILY [facility] Last Admin: 05/11/17 08:05 Dose: 81 mg Atorvastatin Calcium (Lipitor) 20 mg PO QPM [facility] Last Admin: 05/10/17 17:33 Dose: 20 mg Bisacodyl (Dulcolax) 10 mg [place] DAILY PRN PRN Reason: Constipation Last Admin: 05/02/17 17:16 Dose: 10 mg Enalapril Maleate (Vasotec) 10 mg PO DAILY [facility] Last Admin: 05/11/17 08:05 Dose: 10 mg Furosemide (Lasix) 20 mg PO DAILY [facility] Last Admin: 05/11/17 08:04 Dose: 20 mg Gabapentin (Neurontin) 300 mg PO TID [facility] Last Admin: 02/12/18 08:05 Dose: 300 mg Guaifenesin/Dextromethorphan (Mucinex-Dm 600-30 Mg) 1 tab PO BID [facility] Last Admin: 05/11/17 08:04 Dose: 1 tab Ceftriaxone Sodium 1 gm/ (Sodium Chloride) 100 mls @ 200 mls/hr IVPB DAILY@ 1700 [facility] Last Admin: 05/10/17 16:11 Dose: 200 mls/hr Lactic Acid (Lac-Hydrin 12% Lotion (225 G)) 1 applic TOP TID@0900,1700,2200 [facility] Last Admin: 05/11/17 08:04 Dose: 1 applic Magnesium Hydroxide (Milk Of Magnesia) 30 ml PO DAILY [facility] Last Admin: 05/11/17 08:10 Dose: Not Given Methylprednisolone (Medrol) 8 mg PO DAILY [facility] Last Admin: 05/11/17 08:04 Dose: 8 mg Metoprolol Tartrate (Lopressor) 25 mg PO Q12H [facility] Last Admin: 05/10/17 20:36 Dose: 25 mg Fluticasone/Salmeterol (Advair Diskus 250/50) 1 puff IH Q12 [facility] Last Admin: 05/11/17 08:04 Dose: 1 puff Tiotropium [place] (Spiriva) 18 mcg INH DAILY [facility] Last Admin: 05/11/17 08:04 Dose: 18 mcg Tramadol HCl (Ultram) 50 mg PO TID PRN PRN Reason: Pain, moderate (4-7) Last Admin: 05/11/17 09:08 Dose: 50 mg - Labs Labs: 05/11/17 05:40 05/11/17 05:40 Assessment and Plan (1) 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
--- NOTE | 2017-05-11 12:09 | CP.PCM.PN ---
Subjective - Date & Time of Evaluation Date of Evaluation: 05/11/17 Time of Evaluation: 11:30 - Subjective Subjective: NO CHEST PAIN SOME SOB Objective - Vital Signs/Intake and Output Vital Signs (last 24 hours): Temp Pulse Resp BP Pulse Ox 97.7 F 67 20 141/60 99 05/11/17 07:53 05/11/17 07:53 05/11/17 07:53 05/11/17 08:04 05/11/17 07:53 - Medications Medications: Current Medications Acetaminophen (Tylenol 325mg Tab) 650 mg PO Q6 PRN PRN Reason: Pain, Mild (1-3) Albuterol Sulfate (Albuterol 0.083% Inhal [place] (2.5 Mg/3 Ml) Ud) 2.5 mg INH RQ4 PRN PRN Reason: Shortness of Breath Last Admin: 05/11/17 03:11 Dose: 2.5 mg Aspirin (Ecotrin) 81 mg PO DAILY [facility] Last Admin: 05/11/17 08:05 Dose: 81 mg Atorvastatin Calcium (Lipitor) 20 mg PO QPM [facility] Last Admin: 05/10/17 17:33 Dose: 20 mg Bisacodyl (Dulcolax) 10 mg [place] DAILY PRN PRN Reason: Constipation Last Admin: 05/02/17 17:16 Dose: 10 mg Enalapril Maleate (Vasotec) 10 mg PO DAILY [facility] Last Admin: 05/11/17 08:05 Dose: 10 mg Furosemide (Lasix) 20 mg PO DAILY [facility] Last Admin: 05/11/17 08:04 Dose: 20 mg Gabapentin (Neurontin) 300 mg PO TID [facility] Last Admin: 05/11/17 08:05 Dose: 300 mg Guaifenesin/Dextromethorphan (Mucinex-Dm 600-30 Mg) 1 tab PO BID [facility] Last Admin: 05/11/17 08:04 Dose: 1 tab Ceftriaxone Sodium 1 gm/ (Sodium Chloride) 100 mls @ 200 mls/hr IVPB DAILY@ 1700 [facility] Last Admin: 05/10/17 16:11 Dose: 200 mls/hr Lactic Acid (Lac-Hydrin 12% Lotion (225 G)) 1 applic TOP TID@0900,1700,2200 [facility] Last Admin: 05/11/17 08:04 Dose: 1 applic Magnesium Hydroxide (Milk Of Magnesia) 30 ml PO DAILY [facility] Last Admin: 05/11/17 08:10 Dose: Not Given Methylprednisolone (Medrol) 8 mg PO DAILY [facility] Last Admin: 05/11/17 08:04 Dose: 8 mg Metoprolol Tartrate (Lopressor) 25 mg PO Q12H [facility] Last Admin: 05/10/17 20:36 Dose: 25 mg Fluticasone/Salmeterol (Advair Diskus 250/50) 1 puff IH Q12 [facility] Last Admin: 05/11/17 08:04 Dose: 1 puff Tiotropium [place] (Spiriva) 18 mcg INH DAILY [facility] Last Admin: 05/11/17 08:04 Dose: 18 mcg Tramadol HCl (Ultram) 50 mg PO TID PRN PRN Reason: Pain, moderate (4-7) Last Admin: 05/11/17 09:08 Dose: 50 mg - Labs Labs: 05/11/17 05:40 05/11/17 05:40 - Respiratory Exam Respiratory Exam: Rhonchi - Cardiovascular Exam Cardiovascular Exam: REGULAR RHYTHM, +S1, +S2 Assessment and Plan - Assessment and Plan (Free Text) Assessment: S/P TAVR FOR AORTIC STENOSIS HYPERTENSION COPD SPINAL STENOSIS HYPERLIPIDEMIA Plan: CONTINUE METOPROLOL, ENALAPRIL, ATORVASTATIN, ANTIBIOTICS, BRONCHODILATORS THE PATIENT CAN HAVE NEUROSURGERY FROM THE CARDIAC [facility] BUT I BELIEVE IT WOULD HAVE A SIGNIFICANT RISK DUE TO HIS AGE AND MEDICAL PROBLEMS BUT THAT WOULD BE UP TO DR VILLALBA AND THE FAMILY TO DECIDE
[2017-05-12] MEDS: Fluticasone-Salmeterol 250-50mcg Diskus IH SCH ×2 (09:02→21:10)
[2017-05-12] MEDS: guaiFENesin-DM 600-30 mg ER Tab PO SCH ×2 (09:03→16:53)
[2017-05-12] MEDS: Magnesium Hydroxide Susp 30 ml UD PO SCH (09:05)
[2017-05-12] MEDS: Tiotropium 18 mcg Cap For Inhalation INH SCH (09:05)
--- NOTE | 2017-05-12 11:14 | CP.PCM.PN ---
Subjective - Date & Time of Evaluation Date of Evaluation: 05/12/17 Time of Evaluation: 11:14 - Subjective Subjective: Patient out of bed complaining of low back pain Serum sodium corrected Kidney function are okay Please call me as needed thank you Objective - Vital Signs/Intake and Output Vital Signs (last 24 hours): Temp Pulse Resp BP Pulse Ox 97.7 F 63 20 139/64 99 05/12/17 08:10 05/12/17 09:03 05/12/17 08:10 05/12/17 09:04 05/12/17 08:10 - Medications Medications: Current Medications Acetaminophen (Tylenol 325mg Tab) 650 mg PO Q6 PRN PRN Reason: Pain, Mild (1-3) Albuterol Sulfate (Albuterol 0.083% Inhal Olivia (2.5 Mg/3 Ml) Ud) 2.5 mg INH RQ4 PRN PRN Reason: Shortness of Breath Last Admin: 05/11/17 23:56 Dose: 2.5 mg Aspirin (Ecotrin) 81 mg PO DAILY [facility] Last Admin: 05/12/17 09:05 Dose: 81 mg Atorvastatin Calcium (Lipitor) 20 mg PO QPM [facility] Last Admin: 05/11/17 17:26 Dose: 20 mg Bisacodyl (Dulcolax) 10 mg [place] DAILY PRN PRN Reason: Constipation Last Admin: 05/02/17 17:16 Dose: 10 mg Enalapril Maleate (Vasotec) 10 mg PO DAILY [facility] Last Admin: 05/12/17 09:06 Dose: 10 mg Furosemide (Lasix) 20 mg PO DAILY [facility] Last Admin: 05/12/17 09:04 Dose: 20 mg Gabapentin (Neurontin) 300 mg PO TID [facility] Last Admin: 05/12/17 09:05 Dose: 300 mg Guaifenesin/Dextromethorphan (Mucinex-Dm 600-30 Mg) 1 tab PO BID [facility] Last Admin: 05/12/17 09:03 Dose: 1 tab Lactic Acid (Lac-Hydrin 12% Lotion (225 G)) 1 applic TOP TID@0900,1700,2200 [facility] Last Admin: 05/12/17 09:04 Dose: 1 applic Magnesium Hydroxide (Milk Of Magnesia) 30 ml PO DAILY [facility] Last Admin: 05/12/17 09:05 Dose: Not Given Methylprednisolone (Medrol) 8 mg PO DAILY [facility] Last Admin: 05/12/17 09:03 Dose: 8 mg Metoprolol Tartrate (Lopressor) 25 mg PO Q12H [facility] Last Admin: 05/12/17 09:03 Dose: 25 mg Fluticasone/Salmeterol (Advair Diskus 250/50) 1 puff IH Q12 [facility] Last Admin: 05/12/17 09:02 Dose: 1 puff Tiotropium [place] (Spiriva) 18 mcg INH DAILY [facility] Last Admin: 05/12/17 09:05 Dose: 18 mcg Tramadol HCl (Ultram) 50 mg PO TID PRN PRN Reason: Pain, moderate (4-7) Last Admin: 05/11/17 22:10 Dose: 50 mg - Labs Labs: 05/11/17 05:40 05/11/17 05:40 Assessment and Plan (1) Hyponatremia Status: Acute (2) 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
--- NOTE | 2017-05-12 15:39 | CP.PCM.PN ---
Subjective - Date & Time of Evaluation Date of Evaluation: 05/12/17 Time of Evaluation: 11:00 - Subjective Subjective: Patient was seen and examined at bedside comfortable. Pain well controlled. Tolerating diet. Declined OOB to chair with PT. Objective - Vital Signs/Intake and Output Vital Signs (last 24 hours): Temp Pulse Resp BP Pulse Ox 97.7 F 63 20 139/64 99 05/12/17 08:10 05/12/17 09:03 05/12/17 08:10 05/12/17 09:04 05/12/17 08:10 - Medications Medications: Current Medications Acetaminophen (Tylenol 325mg Tab) 650 mg PO Q6 PRN PRN Reason: Pain, Mild (1-3) Albuterol Sulfate (Albuterol 0.083% Inhal Olivia (2.5 Mg/3 Ml) Ud) 2.5 mg INH RQ4 PRN PRN Reason: Shortness of Breath Last Admin: 05/11/17 23:56 Dose: 2.5 mg Aspirin (Ecotrin) 81 mg PO DAILY [facility] Last Admin: 05/12/17 09:05 Dose: 81 mg Atorvastatin Calcium (Lipitor) 20 mg PO QPM [facility] Last Admin: 05/11/17 17:26 Dose: 20 mg Bisacodyl (Dulcolax) 10 mg [place] DAILY PRN PRN Reason: Constipation Last Admin: 05/02/17 17:16 Dose: 10 mg Enalapril Maleate (Vasotec) 10 mg PO DAILY [facility] Last Admin: 05/12/17 09:06 Dose: 10 mg Furosemide (Lasix) 20 mg PO DAILY [facility] Last Admin: 05/12/17 09:04 Dose: 20 mg Gabapentin (Neurontin) 300 mg PO TID [facility] Last Admin: 05/12/17 12:20 Dose: 300 mg Guaifenesin/Dextromethorphan (Mucinex-Dm 600-30 Mg) 1 tab PO BID [facility] Last Admin: 05/12/17 09:03 Dose: 1 tab Lactic Acid (Lac-Hydrin 12% Lotion (225 G)) 1 applic TOP TID@0900,1700,2200 [facility] Last Admin: 05/12/17 09:04 Dose: 1 applic Magnesium Hydroxide (Milk Of Magnesia) 30 ml PO DAILY [facility] Last Admin: 05/12/17 09:05 Dose: Not Given Methylprednisolone (Medrol) 8 mg PO DAILY [facility] Last Admin: 05/12/17 09:03 Dose: 8 mg Metoprolol Tartrate (Lopressor) 25 mg PO Q12H [facility] Last Admin: 05/12/17 09:03 Dose: 25 mg Fluticasone/Salmeterol (Advair Diskus 250/50) 1 puff IH Q12 [facility] Last Admin: 05/12/17 09:02 Dose: 1 puff Tiotropium [place] (Spiriva) 18 mcg INH DAILY [facility] Last Admin: 05/12/17 09:05 Dose: 18 mcg Tramadol HCl (Ultram) 50 mg PO TID PRN PRN Reason: Pain, moderate (4-7) Last Admin: 05/11/17 22:10 Dose: 50 mg - Labs Labs: 05/11/17 05:40 05/11/17 05:40 - Constitutional Appears: Well - Head Exam Head Exam: ATRAUMATIC, NORMAL INSPECTION, NORMOCEPHALIC - Extremities Exam Extremities Exam: Pedal Edema Additional comments: LLE in knee immobilizer, wound intact with rosa, mild redness at midwound over patella, mild tenderness globally, no erythema, ROM untested due to quad tendon tear, intact sensation DP/SP/TN, motor intact EHL/FHL/ankle dorsi and plantar flexion, calves nontender bilaterally, pedal pulses intact
--- NOTE | 2017-05-12 21:41 | CP.PCM.PN ---
Subjective - Date & Time of Evaluation Date of Evaluation: 05/12/17 Time of Evaluation: 22:22 - Subjective Subjective: Above noted Objective - Vital Signs/Intake and Output Vital Signs (last 24 hours): Temp Pulse Resp BP Pulse Ox 98.2 F 69 20 127/64 95 05/12/17 20:15 05/12/17 21:11 05/12/17 20:15 05/12/17 21:11 05/12/17 20:15 - Medications Medications: Current Medications Acetaminophen (Tylenol 325mg Tab) 650 mg PO Q6 PRN PRN Reason: Pain, Mild (1-3) Albuterol Sulfate (Albuterol 0.083% Inhal Olivia (2.5 Mg/3 Ml) Ud) 2.5 mg INH RQ4 PRN PRN Reason: Shortness of Breath Last Admin: 05/11/17 23:56 Dose: 2.5 mg Aspirin (Ecotrin) 81 mg PO DAILY [facility] Last Admin: 05/12/17 09:05 Dose: 81 mg Atorvastatin Calcium (Lipitor) 20 mg PO QPM [facility] Last Admin: 05/12/17 18:00 Dose: 20 mg Bisacodyl (Dulcolax) 10 mg [place] DAILY PRN PRN Reason: Constipation Last Admin: 05/02/17 17:16 Dose: 10 mg Enalapril Maleate (Vasotec) 10 mg PO DAILY [facility] Last Admin: 05/12/17 09:06 Dose: 10 mg Furosemide (Lasix) 20 mg PO DAILY [facility] Last Admin: 05/12/17 09:04 Dose: 20 mg Gabapentin (Neurontin) 300 mg PO TID [facility] Last Admin: 05/12/17 16:53 Dose: 300 mg Guaifenesin/Dextromethorphan (Mucinex-Dm 600-30 Mg) 1 tab PO BID [facility] Last Admin: 05/12/17 16:53 Dose: 1 tab Lactic Acid (Lac-Hydrin 12% Lotion (225 G)) 1 applic TOP TID@0900,1700,2200 [facility] Last Admin: 05/12/17 21:11 Dose: 1 applic Magnesium Hydroxide (Milk Of Magnesia) 30 ml PO DAILY [facility] Last Admin: 05/12/17 09:05 Dose: Not Given Methylprednisolone (Medrol) 8 mg PO DAILY [facility] Last Admin: 05/12/17 09:03 Dose: 8 mg Metoprolol Tartrate (Lopressor) 25 mg PO Q12H [facility] Last Admin: 05/12/17 21:11 Dose: 25 mg Fluticasone/Salmeterol (Advair Diskus 250/50) 1 puff IH Q12 [facility] Last Admin: 05/12/17 21:10 Dose: 1 puff Tiotropium [place] (Spiriva) 18 mcg INH DAILY [facility] Last Admin: 05/12/17 09:05 Dose: 18 mcg Tramadol HCl (Ultram) 50 mg PO TID PRN PRN Reason: Pain, moderate (4-7) Last Admin: 05/12/17 21:13 Dose: 50 mg - Labs Labs: 05/11/17 05:40 05/11/17 05:40 - Respiratory Exam Respiratory Exam: NORMAL BREATHING PATTERN - Cardiovascular Exam Cardiovascular Exam: REGULAR RHYTHM - GI/Abdominal Exam GI & Abdominal Exam: Normal Bowel Sounds Assessment and Plan - Assessment and Plan (Free Text) Assessment: Lower extremity pain Severe Spinal Stenosis Neuro Ortho COPD Smoker Pulmonary Electrolyte abnormalities 2 to diuretic?? Nephrology HTN Prediabetes S/P TAVR Cardiology
--- NOTE | 2017-05-13 08:38 | CP.PCM.PN ---
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 He does have chronic bronchitis with continued congested cough and dyspnea on exertion. He does have a surgical intervention planned for his spinal stenosis and a request for clearance from a pulmonary perspective has been requested. He would pose a risk of post- operative respiratory complications which need close attention paid to clearance of his airways secretions after surgery. Attention to incentive spirometry and chest PT would be very important. He can likely tolerate the surgical procedure without respiratory complications and would be cleared from a respiratory standpoint. Objective - Vital Signs/Intake and Output Vital Signs (last 24 hours): Temp Pulse Resp BP Pulse Ox 98.2 F 69 20 127/64 95 05/12/17 20:15 05/12/17 21:11 05/12/17 20:15 05/12/17 21:11 05/12/17 20:15 - Medications Medications: Current Medications Acetaminophen (Tylenol 325mg Tab) 650 mg PO Q6 PRN PRN Reason: Pain, Mild (1-3) Albuterol Sulfate (Albuterol 0.083% Inhal Olivia (2.5 Mg/3 Ml) Ud) 2.5 mg INH RQ4 PRN PRN Reason: Shortness of Breath Last Admin: 05/11/17 23:56 Dose: 2.5 mg Aspirin (Ecotrin) 81 mg PO DAILY [facility] Last Admin: 05/12/17 09:05 Dose: 81 mg Atorvastatin Calcium (Lipitor) 20 mg PO QPM [facility] Last Admin: 05/12/17 18:00 Dose: 20 mg Bisacodyl (Dulcolax) 10 mg [place] DAILY PRN PRN Reason: Constipation Last Admin: 05/02/17 17:16 Dose: 10 mg Enalapril Maleate (Vasotec) 10 mg PO DAILY [facility] Last Admin: 05/12/17 09:06 Dose: 10 mg Furosemide (Lasix) 20 mg PO DAILY [facility] Last Admin: 05/12/17 09:04 Dose: 20 mg Gabapentin (Neurontin) 300 mg PO TID [facility] Last Admin: 05/12/17 16:53 Dose: 300 mg Guaifenesin/Dextromethorphan (Mucinex-Dm 600-30 Mg) 1 tab PO BID [facility] Last Admin: 05/12/17 16:53 Dose: 1 tab Lactic Acid (Lac-Hydrin 12% Lotion (225 G)) 1 applic TOP TID@0900,1700,2200 [facility] Last Admin: 05/12/17 21:11 Dose: 1 applic Magnesium Hydroxide (Milk Of Magnesia) 30 ml PO DAILY [facility] Last Admin: 05/12/17 09:05 Dose: Not Given Methylprednisolone (Medrol) 8 mg PO DAILY [facility] Last Admin: 05/12/17 09:03 Dose: 8 mg Metoprolol Tartrate (Lopressor) 25 mg PO Q12H [facility] Last Admin: 05/12/17 21:11 Dose: 25 mg Fluticasone/Salmeterol (Advair Diskus 250/50) 1 puff IH Q12 [facility] Last Admin: 05/12/17 21:10 Dose: 1 puff Tiotropium [place] (Spiriva) 18 mcg INH DAILY [facility] Last Admin: 05/12/17 09:05 Dose: 18 mcg Tramadol HCl (Ultram) 50 mg PO TID PRN PRN Reason: Pain, moderate (4-7) Last Admin: 05/12/17 21:13 Dose: 50 mg - Labs Labs: 05/11/17 05:40 05/11/17 05:40 Assessment and Plan (1) 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
[2017-05-13] MEDS: Fluticasone-Salmeterol 250-50mcg Diskus IH SCH ×2 (08:44→21:08)
[2017-05-13] MEDS: Tiotropium 18 mcg Cap For Inhalation INH SCH (08:45)
[2017-05-13] MEDS: guaiFENesin-DM 600-30 mg ER Tab PO SCH ×2 (08:45→17:24)
[2017-05-13] MEDS: Magnesium Hydroxide Susp 30 ml UD PO SCH (08:46)
--- NOTE | 2017-05-13 10:04 | CP.PCM.PN ---
Subjective - Date & Time of Evaluation Date of Evaluation: 05/13/17 Time of Evaluation: 09:30 - Subjective Subjective: NO CHEST PAIN BREATHING OK Objective - Vital Signs/Intake and Output Vital Signs (last 24 hours): Temp Pulse Resp BP Pulse Ox 97.7 F 63 20 134/72 93 L 05/13/17 08:39 05/13/17 08:45 05/13/17 08:39 05/13/17 08:45 05/13/17 08:39 - Medications Medications: Current Medications Acetaminophen (Tylenol 325mg Tab) 650 mg PO Q6 PRN PRN Reason: Pain, Mild (1-3) Albuterol Sulfate (Albuterol 0.083% Inhal Olivia (2.5 Mg/3 Ml) Ud) 2.5 mg INH RQ4 PRN PRN Reason: Shortness of Breath Last Admin: 05/11/17 23:56 Dose: 2.5 mg Aspirin (Ecotrin) 81 mg PO DAILY [facility] Last Admin: 05/12/17 09:05 Dose: 81 mg Atorvastatin Calcium (Lipitor) 20 mg PO QPM [facility] Last Admin: 05/12/17 18:00 Dose: 20 mg Bisacodyl (Dulcolax) 10 mg [place] DAILY PRN PRN Reason: Constipation Last Admin: 05/02/17 17:16 Dose: 10 mg Enalapril Maleate (Vasotec) 10 mg PO DAILY [facility] Last Admin: 05/13/17 08:45 Dose: 10 mg Furosemide (Lasix) 20 mg PO DAILY [facility] Last Admin: 05/13/17 08:45 Dose: 20 mg Gabapentin (Neurontin) 300 mg PO TID [facility] Last Admin: 05/13/17 08:44 Dose: 300 mg Guaifenesin/Dextromethorphan (Mucinex-Dm 600-30 Mg) 1 tab PO BID [facility] Last Admin: 05/13/17 08:45 Dose: 1 tab Lactic Acid (Lac-Hydrin 12% Lotion (225 G)) 1 applic TOP TID@0900,1700,2200 [facility] Last Admin: 05/13/17 08:46 Dose: 1 applic Magnesium Hydroxide (Milk Of Magnesia) 30 ml PO DAILY [facility] Last Admin: 05/13/17 08:46 Dose: Not Given Methylprednisolone (Medrol) 4 mg PO DAILY [facility] Metoprolol Tartrate (Lopressor) 25 mg PO Q12H [facility] Last Admin: 05/13/17 08:45 Dose: 25 mg Fluticasone/Salmeterol (Advair Diskus 250/50) 1 puff IH Q12 [facility] Last Admin: 05/13/17 08:44 Dose: 1 puff Tiotropium [place] (Spiriva) 18 mcg INH DAILY [facility] Last Admin: 05/13/17 08:45 Dose: 18 mcg Tramadol HCl (Ultram) 50 mg PO TID PRN PRN Reason: Pain, moderate (4-7) Last Admin: 05/13/17 08:49 Dose: 50 mg - Labs Labs: 05/11/17 05:40 05/11/17 05:40 - Respiratory Exam Additional comments: CLEARER BILAT - Cardiovascular Exam Cardiovascular Exam: REGULAR RHYTHM, +S1, +S2 - Extremities Exam Additional comments: DECREASE IN EDEMA Assessment and Plan - Assessment and Plan (Free Text) Assessment: S/P TAVR HYPERTENSION COPD SPINAL STENOSIS Plan: CONTINUE BRONCHODILATORS, ASA, FUROSEMIDE, ATORVASTATIN, METOPROLOL, ENALAPRIL DR VILLALBA HAS DECIDED TO HOLD OFF ON NEUROSURGERY FOR NOW
--- NOTE | 2017-05-13 17:37 | CP.PCM.PN ---
Subjective - Date & Time of Evaluation Date of Evaluation: 05/13/17 Time of Evaluation: 22:22 - Subjective Subjective: Long d/w consultants and orthopedics D/W family/son and explained risks vs benefits and agrees to surgery Objective - Vital Signs/Intake and Output Vital Signs (last 24 hours): Temp Pulse Resp BP Pulse Ox 97.1 F L 69 20 115/57 L 92 L 05/13/17 16:05 05/13/17 16:05 05/13/17 16:05 05/13/17 16:05 05/13/17 16:05 - Medications Medications: Current Medications Acetaminophen (Tylenol 325mg Tab) 650 mg PO Q6 PRN PRN Reason: Pain, Mild (1-3) Albuterol Sulfate (Albuterol 0.083% Inhal [place] (2.5 Mg/3 Ml) Ud) 2.5 mg INH RQ4 PRN PRN Reason: Shortness of Breath Last Admin: 05/11/17 23:56 Dose: 2.5 mg Aspirin (Ecotrin) 81 mg PO DAILY [facility] Last Admin: 05/12/17 09:05 Dose: 81 mg Atorvastatin Calcium (Lipitor) 20 mg PO QPM [facility] Last Admin: 05/13/17 17:24 Dose: 20 mg Bisacodyl (Dulcolax) 10 mg [place] DAILY PRN PRN Reason: Constipation Last Admin: 05/02/17 17:16 Dose: 10 mg Enalapril Maleate (Vasotec) 10 mg PO DAILY [facility] Last Admin: 05/13/17 08:45 Dose: 10 mg Furosemide (Lasix) 20 mg PO DAILY [facility] Last Admin: 05/13/17 08:45 Dose: 20 mg Gabapentin (Neurontin) 300 mg PO TID [facility] Last Admin: 05/13/17 17:24 Dose: 300 mg Guaifenesin/Dextromethorphan (Mucinex-Dm 600-30 Mg) 1 tab PO BID [facility] Last Admin: 05/13/17 17:24 Dose: 1 tab Lactic Acid (Lac-Hydrin 12% Lotion (225 G)) 1 applic TOP TID@0900,1700,2200 [facility] Last Admin: 05/13/17 17:25 Dose: 1 applic Magnesium Hydroxide (Milk Of Magnesia) 30 ml PO DAILY [facility] Last Admin: 05/13/17 08:46 Dose: Not Given Methylprednisolone (Medrol) 4 mg PO DAILY [facility] Metoprolol Tartrate (Lopressor) 25 mg PO Q12H [facility] Last Admin: 05/13/17 08:45 Dose: 25 mg Fluticasone/Salmeterol (Advair Diskus 250/50) 1 puff IH Q12 [facility] Last Admin: 05/13/17 08:44 Dose: 1 puff Tiotropium [place] (Spiriva) 18 mcg INH DAILY [facility] Last Admin: 05/13/17 08:45 Dose: 18 mcg Tramadol HCl (Ultram) 50 mg PO TID PRN PRN Reason: Pain, moderate (4-7) Last Admin: 05/13/17 08:49 Dose: 50 mg - Labs Labs: 05/11/17 05:40 05/11/17 05:40 Assessment and Plan - Assessment and Plan (Free Text) Assessment: Severe Spinal Stenosis Lower extremity pain at rest Neuro Ortho Surgery scheduled Thursday Acceptable candidate for surgery Benefits outweigh risk Close Pulmonary/ Cardiac monitoring perioperatively COPD Smoker Pulmonary Electrolyte abnormalities 2 to diuretic?? improved Nephrology HTN Prediabetes S/P TAVR Cardiology
[2017-05-14 07:06] LABS: HEMOGLOBIN 11.8 g/dL (12.0-18.0); MEAN CELL VOLUME 99.5 fl (80.0-94.0); MEAN CORPUSCULAR HEMOGLOBIN 32.4 pg (27.0-31.0); MEAN CORPUSCULAR HGB CONC 32.5 g/dL (33.0-37.0); RBC 3.64 Mil/uL (4.40-5.90); RED CELL DISTRIBUTION WIDTH 13.7 % (11.5-14.5); WHITE BLOOD COUNT 6.2 K/uL (4.8-10.8)
[2017-05-14 07:18] LABS: ALB/GLOB RATIO 1.3 (1.0-2.1); ALBUMIN 3.6 g/dL (3.5-5.0); ALT/SGPT 54 U/L (21-72); AST/SGOT 30 U/L (17-59); BLOOD UREA NITROGEN 15 mg/dl (9-20); CALCIUM 8.9 mg/dL (8.4-10.2); GFR AFRICAN-AMERICAN > 60; GFR NON-AFRICAN AMERICAN > 60
[2017-05-14 07:34] LABS: INR 1.1 (0.9-1.2); PARTIAL THROMBOPLASTIN TIME 27.8 Seconds (25.6-37.1); PROTHROMBIN TIME 11.7 Seconds (9.8-13.1)
[2017-05-14] MEDS: guaiFENesin-DM 600-30 mg ER Tab PO SCH ×2 (08:42→16:31)
[2017-05-14] MEDS: Tiotropium 18 mcg Cap For Inhalation INH SCH (08:42)
[2017-05-14] MEDS: Magnesium Hydroxide Susp 30 ml UD PO SCH (08:44)
--- NOTE | 2017-05-14 10:15 | CP.PCM.PN ---
Subjective - Date & Time of Evaluation Date of Evaluation: 05/14/17 Time of Evaluation: 09:15 - Subjective Subjective: NO CHEST PAIN BREATHING GOOD Objective - Vital Signs/Intake and Output Vital Signs (last 24 hours): Temp Pulse Resp BP Pulse Ox 98.0 F 60 20 142/74 97 05/14/17 08:24 05/14/17 08:43 05/14/17 08:24 05/14/17 08:43 05/14/17 08:24 - Medications Medications: Current Medications Acetaminophen (Tylenol 325mg Tab) 650 mg PO Q6 PRN PRN Reason: Pain, Mild (1-3) Albuterol Sulfate (Albuterol 0.083% Inhal [place] (2.5 Mg/3 Ml) Ud) 2.5 mg INH RQ4 PRN PRN Reason: Shortness of Breath Last Admin: 05/11/17 23:56 Dose: 2.5 mg Aspirin (Ecotrin) 81 mg PO DAILY [facility] Last Admin: 05/12/17 09:05 Dose: 81 mg Atorvastatin Calcium (Lipitor) 20 mg PO QPM [facility] Last Admin: 05/13/17 17:24 Dose: 20 mg Bisacodyl (Dulcolax) 10 mg [place] DAILY PRN PRN Reason: Constipation Last Admin: 05/02/17 17:16 Dose: 10 mg Enalapril Maleate (Vasotec) 10 mg PO DAILY [facility] Last Admin: 05/14/17 08:43 Dose: 10 mg Furosemide (Lasix) 20 mg PO DAILY [facility] Last Admin: 05/14/17 08:43 Dose: 20 mg Gabapentin (Neurontin) 300 mg PO TID [facility] Last Admin: 05/14/17 08:42 Dose: 300 mg Guaifenesin/Dextromethorphan (Mucinex-Dm 600-30 Mg) 1 tab PO BID [facility] Last Admin: 05/14/17 08:42 Dose: 1 tab Lactic Acid (Lac-Hydrin 12% Lotion (225 G)) 1 applic TOP TID@0900,1700,2200 [facility] Last Admin: 05/14/17 08:44 Dose: 1 applic Magnesium Hydroxide (Milk Of Magnesia) 30 ml PO DAILY [facility] Last Admin: 05/14/17 08:44 Dose: Not Given Methylprednisolone (Medrol) 4 mg PO DAILY [facility] Last Admin: 05/14/17 08:42 Dose: 4 mg Metoprolol Tartrate (Lopressor) 25 mg PO Q12H [facility] Last Admin: 05/14/17 08:43 Dose: 25 mg Fluticasone/Salmeterol (Advair Diskus 250/50) 1 puff IH Q12 [facility] Last Admin: 05/13/17 21:08 Dose: 1 puff Tiotropium [place] (Spiriva) 18 mcg INH DAILY [facility] Last Admin: 05/14/17 08:42 Dose: 18 mcg Tramadol HCl (Ultram) 50 mg PO TID PRN PRN Reason: Pain, moderate (4-7) Last Admin: 05/13/17 08:49 Dose: 50 mg - Labs Labs: 05/14/17 06:30 05/14/17 06:30 PT 11.7 Seconds (9.8-13.1) 05/14/17 06:30 INR 1.1 (0.9-1.2) 05/14/17 06:30 APTT 27.8 Seconds (25.6-37.1) 05/14/17 06:30 - Respiratory Exam Respiratory Exam: Decreased Breath Sounds, Clear to Ausculation Bilateral - Cardiovascular Exam Cardiovascular Exam: REGULAR RHYTHM, +S1, +S2 Assessment and Plan - Assessment and Plan (Free Text) Assessment: S/P TAVR HYPERTENSION HYPERLIPIDEMIA SPINAL STENOSIS Plan: CONTINUE METOPROLOL, ENALAPRIL AND ATORVASTATIN I SPOKE WITH DR VILLALBA WHO SPOKE TO THE PATIENT AND FAMILY WELL THE CONSULTANTS AND THE PATIENT WILL PROCEED WITH SURGERY
--- NOTE | 2017-05-14 11:47 | CP.PCM.PN ---
Subjective - Date & Time of Evaluation Date of Evaluation: 05/14/17 Time of Evaluation: 11:40 - Subjective Subjective: Mr. Velez was seen and examined at the bedside. He is alert, oriented. He claims of experiencing bilateral lower extremities pain. He further describe that the pain is minimally alleviated with rest. He is able to move all extremities with bilateral lower extremities weaker than the upper. MRI of the lumbar (05/07/2017) showed moderate to severe thecal sac and lateral recess narrowing at L3-L4 and L4-L5 due to disc protrusion and associated posterior ligament and facet joints hypertrophy. Mild to moderate degenerative disc and endplate changes. MRI of the cervical (05/07/2017) showed no evidence of cord compression. Moderate degenerative disc changes associated with posterior osteophyte disc large complex which resulting in mild stenosis more prominent at C3-C4 and C6- C7. Neurosurgery was consulted and schedule for surgery on . There was no untoward events overnight. Objective - Vital Signs/Intake and Output Vital Signs (last 24 hours): Temp Pulse Resp BP Pulse Ox 98.0 F 60 20 142/74 97 05/14/17 08:24 05/14/17 08:43 05/14/17 08:24 05/14/17 08:43 05/14/17 08:24 - Medications Medications: Current Medications Acetaminophen (Tylenol 325mg Tab) 650 mg PO Q6 PRN PRN Reason: Pain, Mild (1-3) Albuterol Sulfate (Albuterol 0.083% Inhal [place] (2.5 Mg/3 Ml) Ud) 2.5 mg INH RQ4 PRN PRN Reason: Shortness of Breath Last Admin: 05/11/17 23:56 Dose: 2.5 mg Aspirin (Ecotrin) 81 mg PO DAILY [facility] Last Admin: 05/12/17 09:05 Dose: 81 mg Atorvastatin Calcium (Lipitor) 20 mg PO QPM [facility] Last Admin: 05/13/17 17:24 Dose: 20 mg Bisacodyl (Dulcolax) 10 mg [place] DAILY PRN PRN Reason: Constipation Last Admin: 05/02/17 17:16 Dose: 10 mg Enalapril Maleate (Vasotec) 10 mg PO DAILY [facility] Last Admin: 05/14/17 08:43 Dose: 10 mg Furosemide (Lasix) 20 mg PO DAILY [facility] Last Admin: 05/14/17 08:43 Dose: 20 mg Gabapentin (Neurontin) 300 mg PO TID [facility] Last Admin: 05/14/17 08:42 Dose: 300 mg Guaifenesin/Dextromethorphan (Mucinex-Dm 600-30 Mg) 1 tab PO BID [facility] Last Admin: 05/14/17 08:42 Dose: 1 tab Lactic Acid (Lac-Hydrin 12% Lotion (225 G)) 1 applic TOP TID@0900,1700,2200 [facility] Last Admin: 05/14/17 08:44 Dose: 1 applic Magnesium Hydroxide (Milk Of Magnesia) 30 ml PO DAILY [facility] Last Admin: 05/14/17 08:44 Dose: Not Given Methylprednisolone (Medrol) 4 mg PO DAILY [facility] Last Admin: 05/14/17 08:42 Dose: 4 mg Metoprolol Tartrate (Lopressor) 25 mg PO Q12H [facility] Last Admin: 05/14/17 08:43 Dose: 25 mg Fluticasone/Salmeterol (Advair Diskus 250/50) 1 puff IH Q12 [facility] Last Admin: 05/13/17 21:08 Dose: 1 puff Tiotropium [place] (Spiriva) 18 mcg INH DAILY [facility] Last Admin: 05/14/17 08:42 Dose: 18 mcg Tramadol HCl (Ultram) 50 mg PO TID PRN PRN Reason: Pain, moderate (4-7) Last Admin: 05/13/17 08:49 Dose: 50 mg - Labs Labs: 05/14/17 06:30 05/14/17 06:30 PT 11.7 Seconds (9.8-13.1) 05/14/17 06:30 INR 1.1 (0.9-1.2) 05/14/17 06:30 APTT 27.8 Seconds (25.6-37.1) 05/14/17 06:30 - Constitutional Appears: No Acute Distress - Head Exam Head Exam: NORMAL INSPECTION - Neurological Exam Neurological Exam: Alert, Awake, Oriented x3 Neuro motor strength exam: Left Upper Extremity: 5, Right Upper Extremity: 5, Left Lower Extremity: 3, Right Lower Extremity: 3 Additional comments: He is able to move lower extremities but weaker than the upper extremities. Assessment and Plan (1) Leg pain Assessment & Plan: Case discussed with Dr. Hernandez, continue all current medical regimen.Follow any recommendations of neurosurgery. Status: Acute
[2017-05-14] MEDS: Fluticasone-Salmeterol 250-50mcg Diskus IH SCH ×2 (12:00→21:30)
[2017-05-14 15:41] VITALS: TEMP 97.7
--- NOTE | 2017-05-14 20:31 | CP.PCM.PN ---
Subjective - Date & Time of Evaluation Date of Evaluation: 05/14/17 Time of Evaluation: 22:22 - Subjective Subjective: Surgery in AM Objective - Vital Signs/Intake and Output Vital Signs (last 24 hours): Temp Pulse Resp BP Pulse Ox 97.7 F 71 20 123/60 95 05/14/17 19:49 05/14/17 19:49 05/14/17 19:49 05/14/17 19:49 05/14/17 19:49 - Medications Medications: Current Medications Acetaminophen (Tylenol 325mg Tab) 650 mg PO Q6 PRN PRN Reason: Pain, Mild (1-3) Albuterol Sulfate (Albuterol 0.083% Inhal [place] (2.5 Mg/3 Ml) Ud) 2.5 mg INH RQ4 PRN PRN Reason: Shortness of Breath Last Admin: 05/11/17 23:56 Dose: 2.5 mg Aspirin (Ecotrin) 81 mg PO DAILY [facility] Last Admin: 05/12/17 09:05 Dose: 81 mg Atorvastatin Calcium (Lipitor) 20 mg PO QPM [facility] Last Admin: 05/14/17 18:20 Dose: Not Given Bisacodyl (Dulcolax) 10 mg [place] DAILY PRN PRN Reason: Constipation Last Admin: 05/02/17 17:16 Dose: 10 mg Enalapril Maleate (Vasotec) 10 mg PO DAILY [facility] Last Admin: 05/14/17 08:43 Dose: 10 mg Furosemide (Lasix) 20 mg PO DAILY [facility] Last Admin: 05/14/17 08:43 Dose: 20 mg Gabapentin (Neurontin) 300 mg PO TID [facility] Last Admin: 05/14/17 16:29 Dose: 300 mg Guaifenesin/Dextromethorphan (Mucinex-Dm 600-30 Mg) 1 tab PO BID [facility] Last Admin: 05/14/17 16:31 Dose: 1 tab Lactic Acid (Lac-Hydrin 12% Lotion (225 G)) 1 applic TOP TID@0900,1700,2200 [facility] Last Admin: 05/14/17 16:29 Dose: 1 applic Magnesium Hydroxide (Milk Of Magnesia) 30 ml PO DAILY [facility] Last Admin: 05/14/17 08:44 Dose: Not Given Methylprednisolone (Medrol) 4 mg PO DAILY [facility] Last Admin: 05/14/17 08:42 Dose: 4 mg Metoprolol Tartrate (Lopressor) 25 mg PO Q12H [facility] Last Admin: 05/14/17 08:43 Dose: 25 mg Fluticasone/Salmeterol (Advair Diskus 250/50) 1 puff IH Q12 [facility] Last Admin: 05/14/17 12:00 Dose: 1 puff Tiotropium [place] (Spiriva) 18 mcg INH DAILY [facility] Last Admin: 05/14/17 08:42 Dose: 18 mcg Tramadol HCl (Ultram) 50 mg PO TID PRN PRN Reason: Pain, moderate (4-7) Last Admin: 05/14/17 12:19 Dose: 50 mg - Labs Labs: 05/14/17 06:30 05/14/17 06:30 PT 11.7 Seconds (9.8-13.1) 05/14/17 06:30 INR 1.1 (0.9-1.2) 05/14/17 06:30 APTT 27.8 Seconds (25.6-37.1) 05/14/17 06:30 - Respiratory Exam Respiratory Exam: NORMAL BREATHING PATTERN - Cardiovascular Exam Cardiovascular Exam: REGULAR RHYTHM - GI/Abdominal Exam GI & Abdominal Exam: Normal Bowel Sounds Assessment and Plan - Assessment and Plan (Free Text) Assessment: Severe Spinal Stenosis Lower extremity pain at rest Neuro Ortho Surgery scheduled inn AM Acceptable candidate for surgery Benefits outweigh risk Close Pulmonary/ Cardiac monitoring perioperatively COPD Smoker Pulmonary HTN Prediabetes S/P TAVR Cardiology Electrolyte abnormalities 2 to diuretic?? improved Nephrology
[2017-05-15] MEDS: Albuterol 0.083% Inhal Sol (2.5 mg/3 mL) UD INH PRN (01:05)
[2017-05-15 09:35] VITALS: BP 134/68; PULSE 64; O2SAT 90
== END 2017-05-15 08:10 | disposition short-term general hospital (02) | DRG 552 ==
LOC: H.TCU 20:30
PROVIDERS: ADMIT Family Medicine Geriatric Medicine; ATTEND Family Medicine Geriatric Medicine
PROC: F07Z9FZ Gait Training/Functional Ambulation Treatment using Assistive, Adaptive, Supportive or Protective Equipment (ICD-10-PCS; principal; 2017-04-30)
PROC: F08Z4FZ Home Management Treatment using Assistive, Adaptive, Supportive or Protective Equipment (ICD-10-PCS; 2017-04-30)
DX: M48.061 Spinal stenosis, lumbar region without neurogenic claudication (principal); E87.5 Hyperkalemia; E87.8 Other disorders of electrolyte and fluid balance, not elsewhere classified; I11.0 Hypertensive heart disease with heart failure; E87.1 Hypo-osmolality and hyponatremia; I50.9 Heart failure, unspecified; D64.9 Anemia, unspecified; E11.9 Type 2 diabetes mellitus without complications; J44.1 Chronic obstructive pulmonary disease with (acute) exacerbation; D72.829 Elevated white blood cell count, unspecified; E78.00 Pure hypercholesterolemia, unspecified; E78.5 Hyperlipidemia, unspecified; F17.200 Nicotine dependence, unspecified, uncomplicated; G89.29 Other chronic pain; I35.0 Nonrheumatic aortic (valve) stenosis; I87.8 Other specified disorders of veins; M10.9 Gout, unspecified; M25.78 Osteophyte, vertebrae; M51.26 Other intervertebral disc displacement, lumbar region; R09.02 Hypoxemia; Z95.2 Presence of prosthetic heart valve; J40 Bronchitis, not specified as acute or chronic; T50.2X5A Adverse effect of carbonic-anhydrase inhibitors, benzothiadiazides and other diuretics, initial encounter; Z79.84 Long term (current) use of oral hypoglycemic drugs; M79.89 Other specified soft tissue disorders; R21 Rash and other nonspecific skin eruption

== ENCOUNTER 2017-05-15 07:46 | Inpatient (IN) | payer MEDICARE, OTHER ==
[2017-05-15] MEDS ORDERED: Vancomycin 1 g Inj IVPB ONE (08:15)
[2017-05-15 08:24] VITALS: BMI 33.0
[2017-05-15] MEDS ORDERED: Succinylcholine 200 mg/10 ml Inj IV ONE (08:38)
[2017-05-15] MEDS ORDERED: Propofol 10 mg/ml Inj (20 ML) ONE ×2 (08:38→10:29)
[2017-05-15] MEDS ORDERED: ePHEDrine 50 mg/ml Inj ONE (08:38)
[2017-05-15] MEDS ORDERED: Phenylephrine 10 mg/ml Inj ONE (08:40)
[2017-05-15] MEDS ORDERED: Lidocaine 1% w Epi 1:100,000 Inj INJ ONE (08:58)
[2017-05-15] MEDS ORDERED: Lactated Ringer's 1,000 ML IV ONE ×2 (09:25→13:05)
[2017-05-15] MEDS ORDERED: Sevoflurane - Inhalation Anesthetic Liq (250 ml) ONE (09:44)
[2017-05-15] MEDS ORDERED: HEMOSTATIC MATRIX 10 ML DIS.NEEDLE TOP ONE (10:15)
[2017-05-15] MEDS ORDERED: Bupivacaine 0.5% 50 ML IJ ONE (10:26)
[2017-05-15] MEDS ORDERED: Lactated Ringer's 1,000 ML IV SCH (11:30)
--- NOTE | 2017-05-15 11:40 | PCM.OP ---
Operative Report - Operative Report Date of Surgery/Procedure: 05/15/17 Time of Surgery/Procedure: 10:00 Surgeon: Bob Operator Engineer: Lala Anesthesia/Sedation: Gen w ET Pre-Operative Diagnosis: Spoinal stenosis L3-5; HNP L4-5 Post-Operative Diagnosis: Same Indication for Surgery: Pain; Inability to ambulate Operative Findings: Severe stenosis; Large HNP R L4-5 Procedure/Operation Description: Decompressive laminectomy L3-5; Exc HNP L4-5 Estimated Blood Loss: 350 Complications: None Specimen: L4-5 disc Discharge & Condition: PACU Stable
[2017-05-15] MEDS ORDERED: Potassium Ch 20mEq in D5-1/2NS 1,000 ML IV SCH (11:45)
--- NOTE | 2017-05-15 12:08 | CP.CCUPN ---
Addendum entered and electronically signed by Urmila Matthew MD 05/15/17 14:28: Start DVT prophylaxis with Lovenox SC in 48 hours as per Neurosurgery recommendations. SCDs and stocking. Original Note: <Urmila Matthew - Last Filed: 05/15/17 14:24> CCU Subjective - Physician Review Subjective (Free Text): 05/15/17 12:08 This is a 87 y/o Male with PMHx of HTN, prediabetes, COPD, dyslipidemia, Gout, and CHF initially admitted on 05/01/17 for chronic right lower extremitity pain, found to have on lumbar spine MRI moderate to severe thecal sac and lateral recess narrowing at L3-L4 and L4-L5 due to disc protrusion and associated posterior ligament and facet joints hypertrophy. Now s/p decompressive laminectomy L3-5; Exc HNP L4-5 as per Neurosurgery report being transfer to ICU for observation and monitoring of cadiorespiratory status. Patient was seen and examined with wastewater treatment plant instructor, Dr. Martinez, in PACU unit. Patient seen awake and alert. VS on monitor : BP: 136/72, RR: 18, HR: 76, 100 % oxygen sat on face mask. Critical Care Time Spent (in minutes): 45 CCU Objective - Vital Signs / Intake & Output Vital Signs (Last 4 hours): Vital Signs Temp Pulse Resp BP Pulse Ox 05/15/17 11:50 74 18 142/76 100 05/15/17 11:35 76 18 136/72 100 05/15/17 11:20 97.8 F 81 18 115/53 L 100 05/15/17 09:07 62 05/15/17 08:40 98.4 F 61 18 147/66 94 L Intake and Output (Last 8hrs): Intake & Output 05/14/17 05/15/17 05/15/17 22:59 06:59 14:59 Intake Total 800 Balance 800 Weight 205 lb Intake: IV 800 Other: Voiding Method Toilet - Physical Exam Physical Exam Limitations: Positive for: Other (alert, awake) Head: Positive for: Atraumatic, Normocephalic Pupils: Positive for: PERRL Mouth: Positive for: Moist Mucous Membranes Respiratory/Chest: Positive for: Clear to Auscultation, Decreased Breath Sounds. Negative for: Respiratory Distress, Wheezes, Rales, Rhonchi Cardiovascular: Positive for: Regular Rate and Rhythm, Normal S1, S2 Abdomen: Positive for: Other (obese). Negative for: Tenderness, Distention, Rebound, Guarding Lower Extremity: Negative for: Edema, CALF TENDERNESS Skin: Positive for: Warm, Dry, Normal Color - Medications Active Medications: Active Medications Generic Name Dose Route Start Last Admin Trade Name Freq PRN Reason Stop Dose Admin Docusate Sodium 100 mg 05/15/17 17:00 Colace PO BID [facility] Hydromorphone HCl 0.5 mg 05/15/17 11:28 Dilaudid IVP 05/15/17 13:30 Q5M PRN Pain, moderate (4-7) Hydromorphone HCl 0.5 mg 05/15/17 13:00 Dilaudid IVP Q4 [facility] Lactated Ringer's 1,000 mls @ 100 mls/hr 05/15/17 11:30 Lactated Ringer's IV .Q10H [facility] Potassium Chloride/Dextrose/Sod Cl 1,000 mls @ 100 mls/hr 05/15/17 11:45 Potassium Chl 20 Meq In D5-1/2ns IV .Q10H [facility] Ondansetron HCl 4 mg 05/15/17 11:45 Zofran Inj IVP Q6 PRN Nausea/Vomiting - Patient Studies Lab Studies: Lab Studies 05/15/17 Range/Units 09:22 Blood Type A POSITIVE Antibody Screen Negative Crossmatch See Detail BBK History Checked Patient has bt Laboratory Results - last 24 hr 05/15/17 09:22 Blood Type A POSITIVE Antibody Screen Negative Crossmatch See Detail BBK History Checked Patient has bt Review of Systems - Review of Systems All systems: reviewed and no additional remarkable complaints except (as per HPI ) Critical Care Progress Note - Nutrition Nutrition: Nutrition Category Date Time Status Liquid Diet [DIET] Diets 05/15/17 Dinner Active Assessment/Plan - Assessment and Plan (Free Text) Assessment: 87 y/o M with PMHx of HTN, CHF, COPD, severe lumbar stenosis, now s/p decompressive laminectomy L3-5. Plan: Severe Lumbar spine stenosis s/p decompressive laminectomy -VS stable on monitor -EBL: 350 ml as per neurosurgeon report -f/u CBC, BMP in AM -H/H prior to surgery was 11.8/36.2 -On IV fluids as per surgery -Pain control with Dilaudid PRN -Incentive spirometer -Zofran IV PRN for N/V -PT/OT eval and treatment tomorrow -Lumbar spine MRI on 05/07/17 reported: moderate to severe thecal sac and lateral recess narrowing at L3-L4 and L4-L5 due to disc protrusion and associated posterior ligament and facet joints hypertrophy. -Neurosurgery on consult by primary team. Dr. Rojas. Recs are appreciated Hypertension -stable BP wnl after surgery -no resume BP meds immediately after surgery -f/u BP and consider resume home meds Diastolic CHF -no in exacerbation -Echo on 04/29/17 reported as boderline concentric LV hypertrophy -c/w post surgery cardiovascular monitoring CPOD -no in exacerbation -resume home meds after immediate postsurgical phase Diet -on IV fluids -consider heart healthy diet once tolerates PO DVT prophylaxis -recommended to hold prophylaxis for today because immediate postop -start Lovenox 40 mg SC tomorrow -GFR>60 - Date & Time Date: 05/15/17 Time: 12:15 <Ez Swanson - Last Filed: 05/15/17 14:38> CCU Objective - Vital Signs / Intake & Output Vital Signs (Last 4 hours): Vital Signs Temp Pulse Resp BP Pulse Ox 05/15/17 13:32 15 05/15/17 13:05 97.6 F 82 18 149/74 98 05/15/17 12:50 78 18 145/72 98 05/15/17 12:35 74 18 154/74 H 100 05/15/17 12:20 72 18 150/74 100 05/15/17 12:05 73 18 153/78 H 100 05/15/17 11:50 74 18 142/76 100 05/15/17 11:35 76 18 136/72 100 05/15/17 11:20 97.8 F 81 18 115/53 L 100 Intake and Output (Last 8hrs): Intake & Output 05/14/17 05/15/17 05/15/17 22:59 06:59 14:59 Intake Total 1100 Output Total 250 Balance 850 Weight 205 lb Intake: IV 1100 Output: Urine 250 Other: Voiding Method Toilet - Medications Active Medications: Active Medications Generic Name Dose Route Start Last Admin Trade Name Freq PRN Reason Stop Dose Admin Albuterol Sulfate 2.5 mg 05/15/17 13:14 Albuterol 0.083% Inhal [place] (2.5 Mg/3 Ml) Ud INH RQ4 PRN Shortness of Breath Allopurinol 300 mg 05/16/17 09:00 Zyloprim PO DAILY [facility] Aspirin 81 mg 05/16/17 09:00 Ecotrin PO DAILY [facility] Atorvastatin Calcium 20 mg 05/16/17 18:00 Lipitor PO QPM [facility] Docusate Sodium 100 mg 05/15/17 17:00 Colace PO BID [facility] Enalapril Maleate 10 mg 05/16/17 09:00 Vasotec PO DAILY [facility] Enoxaparin Sodium 40 mg 05/17/17 09:00 Lovenox SC DAILY [facility] Protocol Hydromorphone HCl 0.5 mg 05/15/17 13:00 05/15/17 13:21 Dilaudid IVP 0.5 mg Q4 [facility] Administration Lactated Ringer's 1,000 mls @ 100 mls/hr 05/15/17 11:30 Lactated Ringer's IV .Q10H [facility] Potassium Chloride/Dextrose/Sod Cl 1,000 mls @ 100 mls/hr 05/15/17 11:45 Potassium Chl 20 Meq In D5-1/2ns IV .Q10H [facility] Metoprolol Tartrate 25 mg 05/16/17 09:00 Lopressor PO Q12H [facility] Ondansetron HCl 4 mg 05/15/17 11:45 Zofran Inj IVP Q6 PRN Nausea/Vomiting Fluticasone/Salmeterol 1 puff 05/15/17 21:00 Advair Diskus 250/50 IH Q12 [facility] Tiotropium [place] 18 mcg 05/16/17 09:00 Spiriva IH DAILY [facility] - Patient Studies Lab Studies: Lab Studies 05/15/17 Range/Units 09:22 Blood Type A POSITIVE Antibody Screen Negative Crossmatch See Detail BBK History Checked Patient has bt Laboratory Results - last 24 hr 05/15/17 09:22 Blood Type A POSITIVE Antibody Screen Negative Crossmatch See Detail BBK History Checked Patient has bt Critical Care Progress Note - Nutrition Nutrition: Nutrition Category Date Time Status Liquid Diet [DIET] Diets 05/15/17 Dinner Active Attending/Attestation - Attestation I have personally seen and examined this patient.: Yes I have fully participated in the care of the patient.: Yes I have reviewed all pertinent clinical information: Yes Notes (Text): 05/15/17 14:35 I have seen and examined the patient. Medical records, lab studies, and imaging were reviewed by me and a management plan was formulated on multidisciplinary rounds with resident Dr. Matthew. I agree with their above documented assessment and plan. Patient underwent L3-L4 laminectomy (03/14). Started on liquid diet. Surgeon wants a/c dvt prophylaxis held for 48h. Patient is clinically stable. Critical Care Time 35 minutes. Multi-disciplinary rounds were performed with house staff, nursing, speech therapy, respiratory therapy, pharmacy and nutrition with integrated input from the primary team/attending and other consulting services. The documented time is cumulative and includes review of patient data/exams/labs/chart review and examination of the patient on rounds and throughout the day; time is exclusive of any procedures or teaching time.
[2017-05-15] MEDS ORDERED: Albuterol 0.083% Inhal Sol (2.5 mg/3 mL) UD INH PRN (13:14)
[2017-05-15] MEDS: Sodium Chloride 0.9% 1,000 ML IV SCH (16:39)
[2017-05-15 16:57] LABS: BASO # 0.2 K/uL (0.0-0.2); BASO % 1.3 % (0.0-2.0); EOS # 0.1 K/uL (0.0-0.7); EOS % 0.5 % (0.0-4.0); HEMOGLOBIN 12.1 g/dL (12.0-18.0); LYMPH # 1.6 K/uL (1.0-4.3); LYMPH % 12.2 % (20.0-40.0); MEAN CELL VOLUME 99.5 fl (80.0-94.0); MEAN CORPUSCULAR HEMOGLOBIN 32.2 pg (27.0-31.0); MEAN CORPUSCULAR HGB CONC 32.4 g/dL (33.0-37.0); MEAN PLATELET VOLUME 7.7 fl (7.2-11.7); MONO # 1.7 K/uL (0.0-0.8); MONO % 13.1 % (0.0-10.0); NEUT # 9.7 K/uL (1.8-7.0); NEUT % 72.9 % (50.0-75.0); RBC 3.75 Mil/uL (4.40-5.90); RED CELL DISTRIBUTION WIDTH 13.9 % (11.5-14.5); WHITE BLOOD COUNT 13.3 K/uL (4.8-10.8)
[2017-05-15 17:08] LABS: BLOOD UREA NITROGEN 14 mg/dl (9-20); CALCIUM 8.7 mg/dL (8.4-10.2); GFR AFRICAN-AMERICAN > 60; GFR NON-AFRICAN AMERICAN > 60; MAGNESIUM 1.8 MG/DL (1.6-2.3)
--- NOTE | 2017-05-15 18:16 | CP.PCM.HP ---
History of Present Illness - History of Present Illness History of Present Illness: 87 yo s/p L-S sx for severe spinal stenosis admitted to ICU Present on Admission - Present on Admission Any Indicators Present on Admission: No Past Patient History - Past Medical History & Family History Past Medical History?: Yes - Past Social History Smoking Status: Former Smoker - CARDIAC Hx Cardiac Disorders: Yes Hx Hypercholesterolemia: Yes Hx Hypertension: Yes Hx Peripheral Edema: Yes Other/Comment: heart valve replacement. - PULMONARY Hx Respiratory Disorders: Yes Hx Chronic Obstructive Pulmonary Disease (COPD): Yes Other/Comment: Ex smoker, quit 2 years ago - NEUROLOGICAL Hx Neurological Disorder: No - HEENT Hx HEENT Problems: No - RENAL Hx Chronic Kidney Disease: No - ENDOCRINE/METABOLIC Hx Endocrine Disorders: No - HEMATOLOGICAL/ONCOLOGICAL Hx Blood Disorders: No - INTEGUMENTARY Hx Dermatological Problems: No - MUSCULOSKELETAL/RHEUMATOLOGICAL Hx Musculoskeletal Disorders: Yes Hx Falls: No Hx Gout: Yes Hx Spinal Stenosis: Yes - GASTROINTESTINAL Hx Gastrointestinal Disorders: No - GENITOURINARY/GYNECOLOGICAL Hx Genitourinary Disorders: No - PSYCHIATRIC Hx Emotional Abuse: No Hx Physical Abuse: No Hx Substance Use: No - SURGICAL HISTORY Hx Surgeries: Yes Hx Valve Replacement: Yes (TAVR) Other/Comment: heart valve replacement - ANESTHESIA Hx Anesthesia: Yes Hx Anesthesia Reactions: No Hx Malignant Hyperthermia: No Meds Allergies/Adverse Reactions: Allergies Allergy/AdvReac Type Severity Reaction Status Date / Time No Known Allergies Allergy Verified 05/15/17 08:24 Physical Exam - Respiratory Exam Respiratory Exam: NORMAL BREATHING PATTERN - Cardiovascular Exam Cardiovascular Exam: REGULAR RHYTHM - GI/Abdominal Exam GI & Abdominal Exam: Normal Bowel Sounds Results - Vital Signs Recent Vital Signs: Last Vital Signs Temp 97.7 F 05/15/17 16:00 Pulse 84 05/15/17 18:00 Resp 20 05/15/17 18:00 BP 143/73 05/15/17 18:00 Pulse Ox 97 05/15/17 18:00 - Labs Result Diagrams: 05/15/17 16:53 05/15/17 16:53 Labs: Laboratory Results - last 24 hr 05/15/17 05/15/17 05/15/17 09:22 16:53 16:53 WBC 13.3 H D RBC 3.75 L Hgb 12.1 Hct 37.3 MCV 99.5 H MCH 32.2 H MCHC 32.4 L RDW 13.9 Plt Count 228 MPV 7.7 Neut % (Auto) 72.9 Lymph % (Auto) 12.2 L [place] % (Auto) 13.1 H Eos % (Auto) 0.5 Baso % (Auto) 1.3 Neut # (Auto) 9.7 H Lymph # (Auto) 1.6 [place] # (Auto) 1.7 H Eos # (Auto) 0.1 Baso # (Auto) 0.2 Sodium 135 Potassium 4.1 Chloride 96 L Carbon Dioxide 29 Anion Gap 14 BUN 14 Creatinine 0.6 L Est GFR ( Amer) > 60 Est GFR (Non-Af Amer) > 60 Random Glucose 114 H Calcium 8.7 Phosphorus 4.1 Magnesium 1.8 Blood Type A POSITIVE Antibody Screen Negative Crossmatch See Detail BBK History Checked Patient has bt Assessment & Plan - Assessment and Plan (Free Text) Assessment: S/P Low back surgery Severe Spinal Stenosis COPD Smoker Pulmonary HTN Prediabetes S/P TAVR Cardiology - Date & Time Date: 05/15/17 Time: 22:22
[2017-05-15] MEDS: Fluticasone-Salmeterol 250-50mcg Diskus IH SCH (21:19)
[2017-05-16 05:23] LABS: BASO # 0.2 K/uL (0.0-0.2); BASO % 0.9 % (0.0-2.0); EOS % 0.1 % (0.0-4.0); HEMOGLOBIN 12.2 g/dL (12.0-18.0); LYMPH # 0.8 K/uL (1.0-4.3); LYMPH % 4.6 % (20.0-40.0); MEAN CELL VOLUME 99.5 fl (80.0-94.0); MEAN CORPUSCULAR HEMOGLOBIN 33.1 pg (27.0-31.0); MEAN CORPUSCULAR HGB CONC 33.3 g/dL (33.0-37.0); MONO % 17.3 % (0.0-10.0); NEUT # 13.6 K/uL (1.8-7.0); NEUT % 77.1 % (50.0-75.0); PLATELET COUNT 223 K/uL (130-400); RBC 3.68 Mil/uL (4.40-5.90); RED CELL DISTRIBUTION WIDTH 13.8 % (11.5-14.5); WHITE BLOOD COUNT 17.6 K/uL (4.8-10.8)
[2017-05-16 05:41] LABS: BLOOD UREA NITROGEN 13 mg/dl (9-20); CALCIUM 8.6 mg/dL (8.4-10.2); GFR AFRICAN-AMERICAN > 60; GFR NON-AFRICAN AMERICAN > 60
[2017-05-16] MEDS ORDERED: Bacitracin OINT 15GM TOP ONE (05:58)
--- NOTE | 2017-05-16 08:15 | CP.CCUPN ---
CCU Subjective - Physician Review Events Since Last Encounter (Free Text): 05/16/17 08:11 alert and oriented, c/o pain and pain management is seeing the patient, on clear liquid diet now, no SOB CCU Objective - Vital Signs / Intake & Output Vital Signs (Last 4 hours): Vital Signs Pulse Resp BP Pulse Ox 05/16/17 06:00 96 H 26 H 135/72 99 Intake and Output (Last 8hrs): Intake & Output 05/15/17 05/16/17 05/16/17 22:59 06:59 14:59 Intake Total 1080 480 Output Total 500 Balance 580 480 Intake: IV 360 480 Oral 720 Output: Urine 500 Urethral (Hyde) 500 - Physical Exam Narrative Physical Exam (Free Text): 05/16/17 08:12 P/E felipe: No JVD Lungs : no ronchi, crackles abdomen: soft, non-tender ext: no edema campos: no gallop. Head: Positive for: Atraumatic, Normocephalic Pupils: Positive for: PERRL Mouth: Positive for: Moist Mucous Membranes Respiratory/Chest: Positive for: Clear to Auscultation, Decreased Breath Sounds. Negative for: Respiratory Distress, Wheezes, Rales, Rhonchi Cardiovascular: Positive for: Regular Rate and Rhythm, Normal S1, S2 Abdomen: Positive for: Other (obese). Negative for: Tenderness, Distention, Rebound, Guarding Lower Extremity: Negative for: Edema, CALF TENDERNESS Skin: Positive for: Warm, Dry, Normal Color - Medications Active Medications: Active Medications Generic Name Dose Route Start Last Admin Trade Name Freq PRN Reason Stop Dose Admin Albuterol Sulfate 2.5 mg 05/15/17 13:14 Albuterol 0.083% Inhal Olivia (2.5 Mg/3 Ml) Ud INH RQ4 PRN Shortness of Breath Allopurinol 300 mg 05/16/17 09:00 Zyloprim PO DAILY [facility] Aspirin 81 mg 05/16/17 09:00 Ecotrin PO DAILY [facility] Atorvastatin Calcium 20 mg 05/16/17 18:00 Lipitor PO QPM [facility] Docusate Sodium 100 mg 05/15/17 17:00 05/15/17 17:50 Colace PO 100 mg BID [facility] Administration Enalapril Maleate 10 mg 05/16/17 09:00 Vasotec PO DAILY [facility] Enoxaparin Sodium 40 mg 05/17/17 09:00 Lovenox SC DAILY [facility] Protocol Hydromorphone HCl 0.5 mg 05/16/17 08:08 Dilaudid IVP Q4 PRN breakthrough pain Sodium Chloride 1,000 mls @ 60 mls/hr 05/15/17 15:45 05/15/17 16:39 Sodium Chloride 0.9% IV 05/16/17 15:31 60 mls/hr .[id number] [facility] Administration Metoprolol Tartrate 25 mg 05/16/17 09:00 Lopressor PO Q12H [facility] Ondansetron HCl 4 mg 05/15/17 11:45 Zofran Inj IVP Q6 PRN Nausea/Vomiting Oxycodone/Acetaminophen 1 tab 05/16/17 07:59 Percocet 5/325 Mg Tab PO 05/19/17 08:00 Q6 PRN Pain, moderate (4-7) Fluticasone/Salmeterol 1 puff 05/15/17 21:00 05/15/17 21:19 Advair Diskus 250/50 IH 1 puff Q12 [facility] Administration Tiotropium Roann 18 mcg 05/16/17 09:00 Spiriva IH DAILY [facility] - Patient Studies Lab Studies: Lab Studies 05/16/17 05/16/17 05/15/17 Range/Units 04:30 04:30 16:53 WBC 17.6 H (4.8-10.8) K/uL RBC 3.68 L (4.40-5.90) Mil/uL Hgb 12.2 (12.0-18.0) g/dL Hct 36.6 (35.0-51.0) % MCV 99.5 H (80.0-94.0) fl MCH 33.1 H (27.0-31.0) pg MCHC 33.3 (33.0-37.0) g/dL RDW 13.8 (11.5-14.5) % Plt Count 223 (130-400) K/uL MPV 8.0 (7.2-11.7) fl Neut % (Auto) 77.1 H (50.0-75.0) % Lymph % (Auto) 4.6 L (20.0-40.0) % [place] % (Auto) 17.3 H (0.0-10.0) % Eos % (Auto) 0.1 (0.0-4.0) % Baso % (Auto) 0.9 (0.0-2.0) % Neut # (Auto) 13.6 H (1.8-7.0) K/uL Lymph # (Auto) 0.8 L (1.0-4.3) K/uL [place] # (Auto) 3.0 H (0.0-0.8) K/uL Eos # (Auto) 0.0 (0.0-0.7) K/uL Baso # (Auto) 0.2 (0.0-0.2) K/uL Sodium 137 135 (132-148) mmol/l Potassium 4.3 4.1 (3.6-5.0) MMOL/L Chloride 98 96 L (98-107) mmol/L Carbon Dioxide 29 29 (22-30) mmol/L Anion Gap 14 14 (10-20) BUN 13 14 (9-20) mg/dl Creatinine 0.6 L 0.6 L (0.8-1.5) mg/dl Est GFR ( Amer) > 60 > 60 Est GFR (Non-Af Amer) > 60 > 60 Random Glucose 170 H 114 H (75-110) mg/dL Calcium 8.6 8.7 (8.4-10.2) mg/dL Phosphorus 4.1 (2.5-4.5) mg/dl Magnesium 1.8 (1.6-2.3) MG/DL Blood Type Antibody Screen Crossmatch BBK History Checked 05/15/17 05/15/17 Range/Units 16:53 09:22 WBC 13.3 H D (4.8-10.8) K/uL RBC 3.75 L (4.40-5.90) Mil/uL Hgb 12.1 (12.0-18.0) g/dL Hct 37.3 (35.0-51.0) % MCV 99.5 H (80.0-94.0) fl MCH 32.2 H (27.0-31.0) pg MCHC 32.4 L (33.0-37.0) g/dL RDW 13.9 (11.5-14.5) % Plt Count 228 (130-400) K/uL MPV 7.7 (7.2-11.7) fl Neut % (Auto) 72.9 (50.0-75.0) % Lymph % (Auto) 12.2 L (20.0-40.0) % [place] % (Auto) 13.1 H (0.0-10.0) % Eos % (Auto) 0.5 (0.0-4.0) % Baso % (Auto) 1.3 (0.0-2.0) % Neut # (Auto) 9.7 H (1.8-7.0) K/uL Lymph # (Auto) 1.6 (1.0-4.3) K/uL [place] # (Auto) 1.7 H (0.0-0.8) K/uL Eos # (Auto) 0.1 (0.0-0.7) K/uL Baso # (Auto) 0.2 (0.0-0.2) K/uL Sodium (132-148) mmol/l Potassium (3.6-5.0) MMOL/L Chloride (98-107) mmol/L Carbon Dioxide (22-30) mmol/L Anion Gap (10-20) BUN (9-20) mg/dl Creatinine (0.8-1.5) mg/dl Est GFR ( Amer) Est GFR (Non-Af Amer) Random Glucose (75-110) mg/dL Calcium (8.4-10.2) mg/dL Phosphorus (2.5-4.5) mg/dl Magnesium (1.6-2.3) MG/DL Blood Type A POSITIVE Antibody Screen Negative Crossmatch See Detail BBK History Checked Patient has bt Laboratory Results - last 24 hr 05/15/17 05/15/17 05/15/17 09:22 16:53 16:53 WBC 13.3 H D RBC 3.75 L Hgb 12.1 Hct 37.3 MCV 99.5 H MCH 32.2 H MCHC 32.4 L RDW 13.9 Plt Count 228 MPV 7.7 Neut % (Auto) 72.9 Lymph % (Auto) 12.2 L [place] % (Auto) 13.1 H Eos % (Auto) 0.5 Baso % (Auto) 1.3 Neut # (Auto) 9.7 H Lymph # (Auto) 1.6 [place] # (Auto) 1.7 H Eos # (Auto) 0.1 Baso # (Auto) 0.2 Sodium 135 Potassium 4.1 Chloride 96 L Carbon Dioxide 29 Anion Gap 14 BUN 14 Creatinine 0.6 L Est GFR ( Amer) > 60 Est GFR (Non-Af Amer) > 60 Random Glucose 114 H Calcium 8.7 Phosphorus 4.1 Magnesium 1.8 Blood Type A POSITIVE Antibody Screen Negative Crossmatch See Detail BBK History Checked Patient has bt 05/16/17 05/16/17 04:30 04:30 WBC 17.6 H RBC 3.68 L Hgb 12.2 Hct 36.6 MCV 99.5 H MCH 33.1 H MCHC 33.3 RDW 13.8 Plt Count 223 MPV 8.0 Neut % (Auto) 77.1 H Lymph % (Auto) 4.6 L [place] % (Auto) 17.3 H Eos % (Auto) 0.1 Baso % (Auto) 0.9 Neut # (Auto) 13.6 H Lymph # (Auto) 0.8 L [place] # (Auto) 3.0 H Eos # (Auto) 0.0 Baso # (Auto) 0.2 Sodium 137 Potassium 4.3 Chloride 98 Carbon Dioxide 29 Anion Gap 14 BUN 13 Creatinine 0.6 L Est GFR ( Amer) > 60 Est GFR (Non-Af Amer) > 60 Random Glucose 170 H Calcium 8.6 Phosphorus Magnesium Blood Type Antibody Screen Crossmatch BBK History Checked Critical Care Progress Note - Nutrition Nutrition: Nutrition Category Date Time Status Liquid Diet [DIET] Diets 05/15/17 Dinner Active Assessment/Plan - Assessment and Plan (Free Text) Assessment: 87 y/o M with PMHx of HTN, CHF, COPD, severe lumbar stenosis, now s/p decompressive laminectomy L3-5. Plan: Severe Lumbar spine stenosis s/p decompressive laminectomy -VS stable on monitor -Pain control with Dilaudid PRN -Incentive spirometer -Zofran IV PRN for N/V -PT/OT eval and treatment tomorrow -Lumbar spine MRI on 05/07/17 reported: moderate to severe thecal sac and lateral recess narrowing at L3-L4 and L4-L5 due to disc protrusion and associated posterior ligament and facet joints hypertrophy. -Neurosurgery on consult by primary team. Dr. Rojas. Recs are appreciated Hypertension -stable BP wnl after surgery -no resume BP meds immediately after surgery -f/u BP and consider resume home meds Diastolic CHF -Dc IVF, on clear liquid diet -Echo on 04/29/17 reported as boderline concentric LV hypertrophy -c/w post surgery cardiovascular monitoring CPOD -no in exacerbation -resume home meds after immediate postsurgical phase DVT prophylaxis -recommended to hold prophylaxis for today because immediate postop -start Lovenox 40 mg SC tomorrow -GFR>60
[2017-05-16] MEDS: Oxycodone/Acetaminophen 5/325 mg Tab PO PRN ×2 (08:19→15:20)
[2017-05-16] MEDS: Fluticasone-Salmeterol 250-50mcg Diskus IH SCH (08:20)
[2017-05-16] MEDS: Sodium Chloride 0.9% 1,000 ML IV SCH (08:26)
[2017-05-16] MEDS ORDERED: Tiotropium 18 mcg Cap For Inhalation IH SCH (09:00)
[2017-05-16] MEDS ORDERED: Enoxaparin 40 mg Syringe SC SCH (09:00)
--- NOTE | 2017-05-16 09:46 | CP.PCM.PN ---
Subjective - Date & Time of Evaluation Date of Evaluation: 05/16/17 Time of Evaluation: 09:42 - Subjective Subjective: SPINE - POD #1 Pt resting in bed. Complains of lower back pain. Resting leg pain may be better. Taking po liquids well. Voiding via simms, No flatus yet. Complains of neck pain. VSS. Afebrile. Dressing clean and dry. Moves all extremities actively. Neuro intact throughout. Plan: Mobilize as tolerated. Advance to pre=op diet after (+) flatus. OK from our viewpoint to transfer to Med-Surg floor when cleared by Pulm/Card. Objective - Vital Signs/Intake and Output Vital Signs (last 24 hours): Temp Pulse Resp BP Pulse Ox 99.2 F 84 19 139/63 99 05/16/17 08:00 05/16/17 08:25 05/16/17 08:00 05/16/17 08:25 05/16/17 08:00 Intake and Output: 05/16/17 05/16/17 06:59 18:59 Intake Total 720 Balance 720 - Medications Medications: Current Medications Albuterol Sulfate (Albuterol 0.083% Inhal Olivia (2.5 Mg/3 Ml) Ud) 2.5 mg INH RQ4 PRN PRN Reason: Shortness of Breath Allopurinol (Zyloprim) 300 mg PO DAILY [facility] Last Admin: 05/16/17 08:27 Dose: 300 mg Aspirin (Ecotrin) 81 mg PO DAILY [facility] Last Admin: 05/16/17 08:26 Dose: 81 mg Atorvastatin Calcium (Lipitor) 20 mg PO QPM [facility] Docusate Sodium (Colace) 100 mg PO BID [facility] Last Admin: 05/16/17 08:21 Dose: 100 mg Enalapril Maleate (Vasotec) 10 mg PO DAILY [facility] Last Admin: 05/16/17 08:28 Dose: 10 mg Enoxaparin Sodium (Lovenox) 40 mg SC DAILY [facility] PRN Reason: Protocol Hydromorphone HCl (Dilaudid) 0.5 mg IVP Q4 PRN PRN Reason: breakthrough pain Last Admin: 05/16/17 08:41 Dose: 0.5 mg Sodium Chloride (Sodium Chloride 0.9%) 1,000 mls @ 60 mls/hr IV .[id number] [facility] Stop: 05/16/17 15:31 Last Admin: 05/16/17 08:26 Dose: Not Given Metoprolol Tartrate (Lopressor) 25 mg PO Q12H [facility] Last Admin: 05/16/17 08:25 Dose: 25 mg Ondansetron HCl (Zofran Inj) 4 mg IVP Q6 PRN PRN Reason: Nausea/Vomiting Oxycodone/Acetaminophen (Percocet 5/325 Mg Tab) 1 tab PO Q6 PRN PRN Reason: Pain, moderate (4-7) Stop: 05/19/17 08:00 Last Admin: 05/16/17 08:19 Dose: 1 tab Fluticasone/Salmeterol (Advair Diskus 250/50) 1 puff IH Q12 [facility] Last Admin: 05/16/17 08:20 Dose: 1 puff Tiotropium [place] (Spiriva) 18 mcg IH DAILY [facility] Last Admin: 05/16/17 08:25 Dose: 18 mcg - Labs Labs: 05/16/17 04:30 05/16/17 04:30
--- NOTE | 2017-05-16 10:38 | CP.PCM.CON ---
History of Present Illness - History of Present Illness History of Present Illness: This 87-year-old male who is a former cigarette smoker was initially seen on presentation to the hospital with lower extremity pain and swelling. During his workup he was found to have severe spinal stenosis and surgery was recommended. 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 Pulmonary function study has revealed a moderately severe obstructive lung disease. He does have chronic cough but difficulty in expectorating secretions. He is seen now in the intensive care unit first day postoperatively after laminectomy. Past Patient History - Past Medical History & Family History Past Medical History?: Yes - Past Social History Smoking Status: Former Smoker Chewing Tobacco Use: No Cigar Use: No Alcohol: Social Drugs: Denies Home Situation {Lives}: With Family - CARDIAC Hx Hypercholesterolemia: Yes Hx Hypertension: Yes Hx Peripheral Edema: Yes Other/Comment: Aortic valve replacement (TAVR). - PULMONARY Hx Bronchitis: Yes Hx Chronic Obstructive Pulmonary Disease (COPD): Yes Other/Comment: Ex smoker, quit 2 years ago - NEUROLOGICAL Hx Neurological Disorder: No - HEENT Hx HEENT Problems: No - RENAL Hx Chronic Kidney Disease: No - ENDOCRINE/METABOLIC Hx Endocrine Disorders: No - HEMATOLOGICAL/ONCOLOGICAL Hx Blood Disorders: No - INTEGUMENTARY Hx Dermatological Problems: No - MUSCULOSKELETAL/RHEUMATOLOGICAL Hx Falls: No Hx Gout: Yes Hx Spinal Stenosis: Yes - GASTROINTESTINAL Hx Gastrointestinal Disorders: No - GENITOURINARY/GYNECOLOGICAL Hx Genitourinary Disorders: No - PSYCHIATRIC Hx Psychophysiologic Disorder: No Hx Substance Use: No - SURGICAL HISTORY Hx Surgeries: Yes Hx Valve Replacement: Yes (TAVR) - ANESTHESIA Hx Anesthesia: Yes Hx Anesthesia Reactions: No Hx Malignant Hyperthermia: No Meds Allergies/Adverse Reactions: Allergies Allergy/AdvReac Type Severity Reaction Status Date / Time No Known Allergies Allergy Verified 05/15/17 08:24 - Medications Medications: Current Medications Albuterol Sulfate (Albuterol 0.083% Inhal Olivia (2.5 Mg/3 Ml) Ud) 2.5 mg INH RQ4 PRN PRN Reason: Shortness of Breath Allopurinol (Zyloprim) 300 mg PO DAILY [facility] Last Admin: 05/16/17 08:27 Dose: 300 mg Aspirin (Ecotrin) 81 mg PO DAILY [facility] Last Admin: 05/16/17 08:26 Dose: 81 mg Atorvastatin Calcium (Lipitor) 20 mg PO QPM [facility] Docusate Sodium (Colace) 100 mg PO BID [facility] Last Admin: 05/16/17 08:21 Dose: 100 mg Enalapril Maleate (Vasotec) 10 mg PO DAILY [facility] Last Admin: 05/16/17 08:28 Dose: 10 mg Enoxaparin Sodium (Lovenox) 40 mg SC DAILY [facility] PRN Reason: Protocol Hydromorphone HCl (Dilaudid) 0.5 mg IVP Q4 PRN PRN Reason: breakthrough pain Last Admin: 05/16/17 08:41 Dose: 0.5 mg Sodium Chloride (Sodium Chloride 0.9%) 1,000 mls @ 60 mls/hr IV .[id number] [facility] Stop: 05/16/17 15:31 Last Admin: 05/16/17 08:26 Dose: Not Given Metoprolol Tartrate (Lopressor) 25 mg PO Q12H [facility] Last Admin: 05/16/17 08:25 Dose: 25 mg Ondansetron HCl (Zofran Inj) 4 mg IVP Q6 PRN PRN Reason: Nausea/Vomiting Oxycodone/Acetaminophen (Percocet 5/325 Mg Tab) 1 tab PO Q6 PRN PRN Reason: Pain, moderate (4-7) Stop: 05/19/17 08:00 Last Admin: 05/16/17 08:19 Dose: 1 tab Fluticasone/Salmeterol (Advair Diskus 250/50) 1 puff IH Q12 [facility] Last Admin: 05/16/17 08:20 Dose: 1 puff Tiotropium [place] (Spiriva) 18 mcg IH DAILY [facility] Last Admin: 05/16/17 08:25 Dose: 18 mcg Physical Exam - Additional Findings Additional findings: Presently seated in bedside chair, alert and cooperative. Hyde catheter in place. Trace dependent edema both lower extremities (much improved). No cyanosis. Pharynx is pink and mucous membranes are moist. No exudate. Neck is supple and trachea is midline. No neck vein distention or carotid bruit. No palpable lymphadenopathy. No dullness on chest percussion. Breath sounds are diminished bilaterally. Some rhonchi are heard in the dependent regions of both lungs. No audible wheezing at the present time. No bronchial breathing or egophony. No rub. Scattered dry rales in the lower lobes. Heart sounds are distant and rhythm is regular. Results - Vital Signs Recent Vital Signs: Last Vital Signs Temp 99.2 F 05/16/17 08:00 Pulse 75 05/16/17 10:00 Resp 21 05/16/17 10:00 BP 144/56 L 05/16/17 10:00 Pulse Ox 98 05/16/17 10:00 - Labs Result Diagrams: 05/16/17 04:30 05/16/17 04:30 Labs: Laboratory Results - last 24 hr 05/15/17 05/15/17 05/15/17 09:22 16:53 16:53 WBC 13.3 H D RBC 3.75 L Hgb 12.1 Hct 37.3 MCV 99.5 H MCH 32.2 H MCHC 32.4 L RDW 13.9 Plt Count 228 MPV 7.7 Neut % (Auto) 72.9 Lymph % (Auto) 12.2 L [place] % (Auto) 13.1 H Eos % (Auto) 0.5 Baso % (Auto) 1.3 Neut # (Auto) 9.7 H Lymph # (Auto) 1.6 [place] # (Auto) 1.7 H Eos # (Auto) 0.1 Baso # (Auto) 0.2 Sodium 135 Potassium 4.1 Chloride 96 L Carbon Dioxide 29 Anion Gap 14 BUN 14 Creatinine 0.6 L Est GFR ( Amer) > 60 Est GFR (Non-Af Amer) > 60 Random Glucose 114 H Calcium 8.7 Phosphorus 4.1 Magnesium 1.8 Blood Type A POSITIVE Antibody Screen Negative Crossmatch See Detail BBK History Checked Patient has bt 05/16/17 05/16/17 04:30 04:30 WBC 17.6 H RBC 3.68 L Hgb 12.2 Hct 36.6 MCV 99.5 H MCH 33.1 H MCHC 33.3 RDW 13.8 Plt Count 223 MPV 8.0 Neut % (Auto) 77.1 H Lymph % (Auto) 4.6 L [place] % (Auto) 17.3 H Eos % (Auto) 0.1 Baso % (Auto) 0.9 Neut # (Auto) 13.6 H Lymph # (Auto) 0.8 L [place] # (Auto) 3.0 H Eos # (Auto) 0.0 Baso # (Auto) 0.2 Sodium 137 Potassium 4.3 Chloride 98 Carbon Dioxide 29 Anion Gap 14 BUN 13 Creatinine 0.6 L Est GFR ( Amer) > 60 Est GFR (Non-Af Amer) > 60 Random Glucose 170 H Calcium 8.6 Phosphorus Magnesium Blood Type Antibody Screen Crossmatch BBK History Checked Assessment & Plan (1) COPD (chronic obstructive pulmonary disease) with chronic bronchitis Status: Chronic Priority: High Comment: Appears stable from a respiratory standpoint. Continue all aerosol therapy as previously. Continue incentive spirometry and add CPT using flutter valve device. - Date & Time Date: 05/16/17 Time: 10:43
[2017-05-16] MEDS: Albuterol-Ipratrop 3 mg / 0.5 (3 ml) UD INH SCH ×2 (11:32→16:04)
[2017-05-16] MEDS: guaiFENesin 600 mg ER Tab PO SCH ×2 (12:09→22:41)
[2017-05-16 12:41] LABS: LYMPHOCYTE 6 % (20-50); MONOCYTE 16 % (0-10); NEUTROPHIL 78 % (42-75); PLATELET ESTIMATE NORMAL (NORMAL); TOTAL CELLS COUNTED 100
--- NOTE | 2017-05-16 13:03 | CP.PCM.CON ---
History of Present Illness - History of Present Illness History of Present Illness: THE PATIENT IS AN 87 YEAR OLD MALE WHO UNDERWENT LUMBAR LAMINECTOY YESTERDAY FOR SEVERE LEG PAIN AND DIFFICULTY WALKING. HE ALSO HAS A HISTORY OF RECENT TAVR FOR AORTIC STENOSIS, HYPERTENSION, HYPERLIPIDEMIA AND MODERATE COPD. CARDIOLOGY WAS ASKED TO FOLLOW HIM POST-OP. HE DID WELL WITH SURGERY AND IS AWAKE AND ALERT OOB SITTING IN A CHAIR. HE DENIES CHEST PAIN AND STATES THAT HE IS BREATHING OK. Past Patient History - Past Medical History & Family History Past Medical History?: Yes - Past Social History Smoking Status: Former Smoker Chewing Tobacco Use: No Cigar Use: No Alcohol: Social Drugs: Denies Home Situation {Lives}: With Family - CARDIAC Hx Hypercholesterolemia: Yes Hx Hypertension: Yes Hx Peripheral Edema: Yes Other/Comment: Aortic valve replacement (TAVR). - PULMONARY Hx Bronchitis: Yes Hx Chronic Obstructive Pulmonary Disease (COPD): Yes Other/Comment: Ex smoker, quit 2 years ago - NEUROLOGICAL Hx Neurological Disorder: No - HEENT Hx HEENT Problems: No - RENAL Hx Chronic Kidney Disease: No - ENDOCRINE/METABOLIC Hx Endocrine Disorders: No - HEMATOLOGICAL/ONCOLOGICAL Hx Blood Disorders: No - INTEGUMENTARY Hx Dermatological Problems: No - MUSCULOSKELETAL/RHEUMATOLOGICAL Hx Falls: No Hx Gout: Yes Hx Spinal Stenosis: Yes - GASTROINTESTINAL Hx Gastrointestinal Disorders: No - GENITOURINARY/GYNECOLOGICAL Hx Genitourinary Disorders: No - PSYCHIATRIC Hx Psychophysiologic Disorder: No Hx Substance Use: No - SURGICAL HISTORY Hx Surgeries: Yes Hx Valve Replacement: Yes (TAVR) - ANESTHESIA Hx Anesthesia: Yes Hx Anesthesia Reactions: No Hx Malignant Hyperthermia: No Meds Allergies/Adverse Reactions: Allergies Allergy/AdvReac Type Severity Reaction Status Date / Time No Known Allergies Allergy Verified 05/15/17 08:24 - Medications Medications: Current Medications Albuterol Sulfate (Albuterol 0.083% Inhal Olivia (2.5 Mg/3 Ml) Ud) 2.5 mg INH RQ4 PRN PRN Reason: Shortness of Breath Albuterol/Ipratropium (Duoneb 3 Mg/0.5 Mg (3 Ml) Ud) 3 ml INH RQID [facility] Last Admin: 05/16/17 11:32 Dose: 3 ml Allopurinol (Zyloprim) 300 mg PO DAILY [facility] Last Admin: 05/16/17 08:27 Dose: 300 mg Aspirin (Ecotrin) 81 mg PO DAILY [facility] Last Admin: 05/16/17 08:26 Dose: 81 mg Atorvastatin Calcium (Lipitor) 20 mg PO QPM [facility] Docusate Sodium (Colace) 100 mg PO BID [facility] Last Admin: 05/16/17 08:21 Dose: 100 mg Enalapril Maleate (Vasotec) 10 mg PO DAILY [facility] Enoxaparin Sodium (Lovenox) 40 mg SC DAILY [facility] PRN Reason: Protocol Guaifenesin (Mucinex La) 600 mg PO Q12 [facility] Last Admin: 05/16/17 12:09 Dose: 600 mg Hydromorphone HCl (Dilaudid) 0.5 mg IVP Q4 PRN PRN Reason: breakthrough pain Last Admin: 05/16/17 08:41 Dose: 0.5 mg Sodium Chloride (Sodium Chloride 0.9%) 1,000 mls @ 60 mls/hr IV .[id number] [facility] Stop: 05/16/17 15:31 Last Admin: 05/16/17 08:26 Dose: Not Given Metoprolol Tartrate (Lopressor) 25 mg PO Q12H [facility] Last Admin: 05/16/17 08:25 Dose: 25 mg Ondansetron HCl (Zofran Inj) 4 mg IVP Q6 PRN PRN Reason: Nausea/Vomiting Oxycodone/Acetaminophen (Percocet 5/325 Mg Tab) 1 tab PO Q6 PRN PRN Reason: Pain, moderate (4-7) Stop: 05/19/17 08:00 Last Admin: 05/16/17 08:19 Dose: 1 tab Physical Exam - Respiratory Exam Respiratory Exam: Rales, Rhonchi - Cardiovascular Exam Cardiovascular Exam: REGULAR RHYTHM, +S1, +S2 - Additional Findings Additional findings: EKG NSR, LBBB LABS REVIEWED NEUROSURGICAL OPERATIVE REPORT REVIEWED Results - Vital Signs Recent Vital Signs: Last Vital Signs Temp 98.2 F 05/16/17 12:00 Pulse 78 05/16/17 12:00 Resp 15 05/16/17 12:00 BP 112/59 L 05/16/17 12:00 Pulse Ox 100 05/16/17 12:00 - Labs Result Diagrams: 05/16/17 04:30 05/16/17 04:30 Labs: Laboratory Results - last 24 hr 05/15/17 05/15/17 05/16/17 16:53 16:53 04:30 WBC 13.3 H D 17.6 H RBC 3.75 L 3.68 L Hgb 12.1 12.2 Hct 37.3 36.6 MCV 99.5 H 99.5 H MCH 32.2 H 33.1 H MCHC 32.4 L 33.3 RDW 13.9 13.8 Plt Count 228 223 MPV 7.7 8.0 Neut % (Auto) 72.9 77.1 H Lymph % (Auto) 12.2 L 4.6 L [place] % (Auto) 13.1 H 17.3 H Eos % (Auto) 0.5 0.1 Baso % (Auto) 1.3 0.9 Neut # (Auto) 9.7 H 13.6 H Lymph # (Auto) 1.6 0.8 L [place] # (Auto) 1.7 H 3.0 H Eos # (Auto) 0.1 0.0 Baso # (Auto) 0.2 0.2 Neutrophils % (Manual) 78 H Lymphocytes % (Manual) 6 L Monocytes % (Manual) 16 H Platelet Estimate Normal RBC Morphology Normal Sodium 135 Potassium 4.1 Chloride 96 L Carbon Dioxide 29 Anion Gap 14 BUN 14 Creatinine 0.6 L Est GFR ( Amer) > 60 Est GFR (Non-Af Amer) > 60 Random Glucose 114 H Calcium 8.7 Phosphorus 4.1 Magnesium 1.8 05/16/17 04:30 WBC RBC Hgb Hct MCV MCH MCHC RDW Plt Count MPV Neut % (Auto) Lymph % (Auto) [place] % (Auto) Eos % (Auto) Baso % (Auto) Neut # (Auto) Lymph # (Auto) [place] # (Auto) Eos # (Auto) Baso # (Auto) Neutrophils % (Manual) Lymphocytes % (Manual) Monocytes % (Manual) Platelet Estimate RBC Morphology Sodium 137 Potassium 4.3 Chloride 98 Carbon Dioxide 29 Anion Gap 14 BUN 13 Creatinine 0.6 L Est GFR ( Amer) > 60 Est GFR (Non-Af Amer) > 60 Random Glucose 170 H Calcium 8.6 Phosphorus Magnesium Assessment & Plan - Assessment and Plan (Free Text) Assessment: S/P LUMBAR LAMINECTOMIES FOR SEVERE SPINAL STENOSIS-STABLE S/P TAVR HYPERTENSION HYPERLIPIDEMIA COPD Plan: THE PATIENT WAS ADMITTED TO THE ICU POST-OP CONTINUE METOPROLOL, ENALAPRIL, ATORVASTATIN, BRONCHODILATORS, LOVENOX, ASA,
--- NOTE | 2017-05-16 23:22 | CP.PCM.PN ---
Subjective - Date & Time of Evaluation Date of Evaluation: 05/16/17 Time of Evaluation: 22:22 - Subjective Subjective: Above noted Slight cough C/O pain Objective - Vital Signs/Intake and Output Vital Signs (last 24 hours): Temp Pulse Resp BP Pulse Ox 98.2 F 92 H 20 152/77 H 96 05/16/17 17:00 05/16/17 22:40 05/16/17 17:00 05/16/17 22:40 05/16/17 17:00 Intake and Output: 05/16/17 05/17/17 18:59 06:59 Intake Total 820 Output Total 300 Balance 520 - Medications Medications: Current Medications Albuterol Sulfate (Albuterol 0.083% Inhal Olivia (2.5 Mg/3 Ml) Ud) 2.5 mg INH RQ4 PRN PRN Reason: Shortness of Breath Albuterol/Ipratropium (Duoneb 3 Mg/0.5 Mg (3 Ml) Ud) 3 ml INH RQID [facility] Last Admin: 05/16/17 16:04 Dose: 3 ml Allopurinol (Zyloprim) 300 mg PO DAILY [facility] Last Admin: 05/16/17 08:27 Dose: 300 mg Aspirin (Ecotrin) 81 mg PO DAILY [facility] Last Admin: 05/16/17 08:26 Dose: 81 mg Atorvastatin Calcium (Lipitor) 20 mg PO QPM [facility] Last Admin: 05/16/17 17:23 Dose: 20 mg Docusate Sodium (Colace) 100 mg PO BID [facility] Last Admin: 05/16/17 17:22 Dose: 100 mg Enalapril Maleate (Vasotec) 10 mg PO DAILY [facility] Enoxaparin Sodium (Lovenox) 40 mg SC DAILY [facility] PRN Reason: Protocol Guaifenesin (Mucinex La) 600 mg PO Q12 [facility] Last Admin: 05/16/17 22:41 Dose: 600 mg Hydromorphone HCl (Dilaudid) 0.5 mg IVP Q4 PRN PRN Reason: breakthrough pain Last Admin: 05/16/17 22:45 Dose: 0.5 mg Metoprolol Tartrate (Lopressor) 25 mg PO Q12H [facility] Last Admin: 05/16/17 22:40 Dose: 25 mg Ondansetron HCl (Zofran Inj) 4 mg IVP Q6 PRN PRN Reason: Nausea/Vomiting Oxycodone/Acetaminophen (Percocet 5/325 Mg Tab) 1 tab PO Q6 PRN PRN Reason: Pain, moderate (4-7) Stop: 05/19/17 08:00 Last Admin: 05/16/17 15:20 Dose: 1 tab - Labs Labs: 05/16/17 04:30 05/16/17 04:30 - Respiratory Exam Respiratory Exam: Rhonchi, NORMAL BREATHING PATTERN - Cardiovascular Exam Cardiovascular Exam: REGULAR RHYTHM - GI/Abdominal Exam GI & Abdominal Exam: Normal Bowel Sounds Assessment and Plan - Assessment and Plan (Free Text) Assessment: S/P Low back surgery Severe Spinal Stenosis PT advnce diet Incentive spirometry Pain medication Ortho COPD Smoker Pulmonary HTN Prediabetes S/P TAVR Cardiology
[2017-05-17] MEDS: Oxycodone/Acetaminophen 5/325 mg Tab PO PRN ×4 (00:32→22:46)
[2017-05-17 07:23] LABS: HEMOGLOBIN 11.1 g/dL (12.0-18.0); MEAN CELL VOLUME 100.4 fl (80.0-94.0); MEAN CORPUSCULAR HEMOGLOBIN 32.5 pg (27.0-31.0); MEAN CORPUSCULAR HGB CONC 32.3 g/dL (33.0-37.0); RBC 3.4 Mil/uL (4.40-5.90); WHITE BLOOD COUNT 14.5 K/uL (4.8-10.8)
[2017-05-17 07:53] LABS: ALB/GLOB RATIO 1.1 (1.0-2.1); ALBUMIN 3.4 g/dL (3.5-5.0); ALT/SGPT 34 U/L (21-72); AST/SGOT 33 U/L (17-59); BLOOD UREA NITROGEN 15 mg/dl (9-20); CALCIUM 8.3 mg/dL (8.4-10.2); GFR AFRICAN-AMERICAN > 60; GFR NON-AFRICAN AMERICAN > 60
[2017-05-17] MEDS: guaiFENesin 600 mg ER Tab PO SCH ×2 (09:12→20:32)
[2017-05-17] MEDS: Enoxaparin 40 mg Syringe SC SCH (09:12)
--- NOTE | 2017-05-17 13:26 | CP.PCM.CON ---
History of Present Illness - History of Present Illness History of Present Illness: 87-year-old male treaqted recently for cellulitis of legs and exac COPD During his workup he was found to have severe spinal stenosis and recently underwent laminectomy He c/o chronic cough and PFT's revealed severe obstructive lung disease. He denies fever or chills at this time and is off antibiotics His cellulitis is resolved Review of Systems - Review of Systems All systems: reviewed and no additional remarkable complaints except - Constitutional Constitutional: As Per HPI - EENT Eyes: absent: As Per HPI, Blind Spots, Blurred Vision, Change in Vision, Decreased Night Vision, Diplopia, Discharge, Dry Eye, Exophthalmos, Floaters, Irritation, Itchy Eyes, Loss of Peripheral Vision, Pain, Photophobia, Requires Corrective Lenses, Sees Flashes, Spots in Vision, Tunnel Vision, Other Visual Disturbances, Loss of Vision, Other Ears: absent: As Per HPI, Decreased Hearing, Ear Discharge, Ear Pain, Tinnitus, Abnormal Hearing, Disequilibrium, Dizziness, Other Nose/Mouth/Throat: absent: As Per HPI, Epistaxis, Nasal Congestion, Nasal Discharge, Nasal Obstruction, Nasal Trauma, Nose Pain, Post Nasal Drip, Sinus Pain, Sinus Pressure, Bleeding Gums, Change in Voice, Dental Pain, Dry Mouth, Dysphagia, Halitosis, Hoarsness, Lip Swelling, Mouth Lesions, Mouth Pain, Odynophagia, Sore Throat, Throat Swelling, Tongue Swelling, Facial Pain, Neck Pain, Neck Mass, Other - Cardiovascular Cardiovascular: As Per HPI - Respiratory Respiratory: As Per HPI, Cough - Gastrointestinal Gastrointestinal: absent: As Per HPI, Abdominal Pain, Belching, Bloating, Change in Bowel Habits, Change in Stool Character, Coffee Ground Emesis, Constipation, Cramping, Diarrhea, Dyspepsia, Dysphagia, Early Satiety, Excessive Flatus, Fecal Incontinence, Heartburn, Hematemesis, Hematochezia, Loose Stools, Melena, Nausea, Odynophagia, Temesmus, Vomiting, Other - Genitourinary Genitourinary: absent: As Per HPI, Change in Urinary Stream, Difficulty Urinating, Dysuria, Flank Pain, Hematuria, Pyuria, Nocturia, Urinary Incontinence, Urinary Frequency, Urinary Hesitance, Urinary Urgency, Voiding Freq/Small Amts, Freq UTI, Hx Renal/Bladder Calculi, Hx /Renal Surgery, Bladder Distension, Other - Reproductive: Male Reproductive:Male: As Per HPI, Prepubesant, Dyspareunia, Genital Lesions, Genital Pruritis, Pelvic Pain, Sexual Dysfunction, Penile Discharge, Genital Odor, Impotence, On ED Medications, Penile Implant, Other - Musculoskeletal Musculoskeletal: As Per HPI - Integumentary Integumentary: absent: As Per HPI, Acne, Alopecia, Bleeding Lesions, Change in Hair, Change in Nails, Change in Pigmentation, Changing Lesions, Dry Skin, Erythema, Furuncle, Hirsutism, Lesions, New Lesions, Non-Healing Lesions, Photosensitivity, Pruritus, Rash, Skin Pain, Skin Ulcer, Sores, Striae, Swelling , Unusual Bruising, Wounds, Jaundice, Other - Neurological Neurological: As Per HPI - Psychiatric Psychiatric: absent: As Per HPI, Abnormal Sleep Pattern, Anhedonia, Anxiety, Auditory Hallucinations, Behavioral Changes, Change in Appetite, Change in Libido, Confusion, Depression, Difficulty Concentrating, Hallucinations, Homicidal Ideation, Hopelessness, Irritability, Memory Loss, Mood Swings, Panic Attacks, Paranoia, Suicidal Ideation, Visual Hallucinations, Tactile Hallucinations, Other - Endocrine Endocrine: absent: As Per HPI, Change in Body Appearance, Change in Libido, Cold Intolorance, Deepening of Voice, Excessive Sweating, Fatigue, Flushing, Heat Intolorance, Increase in Ring/Shoe/Hat Size, Palpitations, Polydipsia, Polyphagia, Polyuria, Other - Hematologic/Lymphatic Hematologic: absent: As Per HPI, Easy Bleeding, Easy Bruising, Lymphadenopathy, Other Past Patient History - Past Medical History & Family History Past Medical History?: Yes - Past Social History Smoking Status: Former Smoker Chewing Tobacco Use: No Cigar Use: No Alcohol: Social Drugs: Denies Home Situation {Lives}: With Family - CARDIAC Hx Hypercholesterolemia: Yes Hx Hypertension: Yes Hx Peripheral Edema: Yes Other/Comment: Aortic valve replacement (TAVR). - PULMONARY Hx Bronchitis: Yes Hx Chronic Obstructive Pulmonary Disease (COPD): Yes Other/Comment: Ex smoker, quit 2 years ago - NEUROLOGICAL Hx Neurological Disorder: No - HEENT Hx HEENT Problems: No - RENAL Hx Chronic Kidney Disease: No - ENDOCRINE/METABOLIC Hx Endocrine Disorders: No - HEMATOLOGICAL/ONCOLOGICAL Hx Blood Disorders: No - INTEGUMENTARY Hx Dermatological Problems: No - MUSCULOSKELETAL/RHEUMATOLOGICAL Hx Falls: No Hx Gout: Yes Hx Spinal Stenosis: Yes - GASTROINTESTINAL Hx Gastrointestinal Disorders: No - GENITOURINARY/GYNECOLOGICAL Hx Genitourinary Disorders: No - PSYCHIATRIC Hx Psychophysiologic Disorder: No Hx Substance Use: No - SURGICAL HISTORY Hx Surgeries: Yes Hx Valve Replacement: Yes (TAVR) - ANESTHESIA Hx Anesthesia: Yes Hx Anesthesia Reactions: No Hx Malignant Hyperthermia: No Meds Allergies/Adverse Reactions: Allergies Allergy/AdvReac Type Severity Reaction Status Date / Time No Known Allergies Allergy Verified 05/15/17 08:24 - Medications Medications: Current Medications Albuterol Sulfate (Albuterol 0.083% Inhal Olivia (2.5 Mg/3 Ml) Ud) 2.5 mg INH RQ4 PRN PRN Reason: Shortness of Breath Albuterol/Ipratropium (Duoneb 3 Mg/0.5 Mg (3 Ml) Ud) 3 ml INH RQID [facility] Last Admin: 05/16/17 16:04 Dose: 3 ml Allopurinol (Zyloprim) 300 mg PO DAILY [facility] Last Admin: 05/17/17 09:14 Dose: 300 mg Aspirin (Ecotrin) 81 mg PO DAILY [facility] Last Admin: 05/17/17 09:13 Dose: 81 mg Atorvastatin Calcium (Lipitor) 20 mg PO QPM [facility] Last Admin: 05/16/17 17:23 Dose: 20 mg Docusate Sodium (Colace) 100 mg PO BID [facility] Last Admin: 05/17/17 09:12 Dose: 100 mg Enalapril Maleate (Vasotec) 10 mg PO DAILY [facility] Last Admin: 05/17/17 09:14 Dose: 10 mg Enoxaparin Sodium (Lovenox) 40 mg SC DAILY [facility] PRN Reason: Protocol Last Admin: 05/17/17 09:12 Dose: 40 mg Guaifenesin (Mucinex La) 600 mg PO Q12 [facility] Last Admin: 05/17/17 09:12 Dose: 600 mg Hydromorphone HCl (Dilaudid) 0.5 mg IVP Q4 PRN PRN Reason: breakthrough pain Last Admin: 05/17/17 09:29 Dose: 0.5 mg Metoprolol Tartrate (Lopressor) 25 mg PO Q12H [facility] Last Admin: 05/17/17 09:13 Dose: 25 mg Ondansetron HCl (Zofran Inj) 4 mg IVP Q6 PRN PRN Reason: Nausea/Vomiting Oxycodone/Acetaminophen (Percocet 5/325 Mg Tab) 1 tab PO Q6 PRN PRN Reason: Pain, moderate (4-7) Stop: 05/19/17 08:00 Last Admin: 05/17/17 06:36 Dose: 1 tab Physical Exam - Constitutional Appears: Non-toxic, Chronically Ill - Head Exam Head Exam: NORMOCEPHALIC - Eye Exam Eye Exam: PERRL. absent: Scleral icterus - ENT Exam ENT Exam: Mucous Membranes Dry - Neck Exam Neck exam: Negative for: Lymphadenopathy - Respiratory Exam Respiratory Exam: Decreased Breath Sounds - Cardiovascular Exam Cardiovascular Exam: REGULAR RHYTHM - GI/Abdominal Exam GI & Abdominal Exam: Diminished Bowel Sounds, Soft. absent: Tenderness - Rectal Exam Rectal Exam: Deferred - Exam Exam: NORMAL INSPECTION - Extremities Exam Extremities exam: Negative for: pedal edema - Back Exam Back exam: absent: CVA tenderness (L), CVA tenderness (R) - Neurological Exam Neurological exam: Alert, CN II-XII Intact, Oriented x3 - Psychiatric Exam Psychiatric exam: Anxious - Skin Skin Exam: Dry, Intact Results - Vital Signs Recent Vital Signs: Last Vital Signs Temp 98.3 F 05/17/17 08:52 Pulse 84 05/17/17 09:13 Resp 20 05/17/17 08:52 BP 148/70 05/17/17 09:13 Pulse Ox 98 05/17/17 08:52 - Labs Result Diagrams: 05/17/17 05:30 05/17/17 05:30 Labs: Laboratory Results - last 24 hr 05/16/17 05/17/17 05/17/17 21:54 05:30 05:30 WBC 14.5 H RBC 3.40 L Hgb 11.1 L Hct 34.2 L MCV 100.4 H MCH 32.5 H MCHC 32.3 L RDW 14.0 Plt Count 173 Sodium 131 L Potassium 4.0 Chloride 94 L Carbon Dioxide 31 H Anion Gap 10 BUN 15 Creatinine 0.7 L Est GFR ( Amer) > 60 Est GFR (Non-Af Amer) > 60 POC Glucose (mg/dL) 185 H Random Glucose 153 H Calcium 8.3 L Total Bilirubin 1.1 AST 33 ALT 34 Alkaline Phosphatase 55 Total Protein 6.4 Albumin 3.4 L Globulin 3.0 Albumin/Globulin Ratio 1.1 Assessment & Plan (1) Venous stasis of both lower extremities Status: Acute (2) COPD (chronic obstructive pulmonary disease) with chronic bronchitis Status: Chronic Priority: High (3) Cough Status: Chronic Priority: High - Assessment and Plan (Free Text) Assessment: stable course s/p laminectomy will follow with you
--- NOTE | 2017-05-17 15:19 | CP.PCM.PN ---
Subjective - Date & Time of Evaluation Date of Evaluation: 05/17/17 Time of Evaluation: 22:22 - Subjective Subjective: Above noted Constipation OOB Objective - Vital Signs/Intake and Output Vital Signs (last 24 hours): Temp Pulse Resp BP Pulse Ox 98.3 F 84 20 148/70 98 05/17/17 08:52 05/17/17 09:13 05/17/17 08:52 05/17/17 09:13 05/17/17 08:52 - Medications Medications: Current Medications Albuterol Sulfate (Albuterol 0.083% Inhal Olivia (2.5 Mg/3 Ml) Ud) 2.5 mg INH RQ4 PRN PRN Reason: Shortness of Breath Albuterol/Ipratropium (Duoneb 3 Mg/0.5 Mg (3 Ml) Ud) 3 ml INH RQID [facility] Last Admin: 05/16/17 16:04 Dose: 3 ml Allopurinol (Zyloprim) 300 mg PO DAILY [facility] Last Admin: 05/17/17 09:14 Dose: 300 mg Aspirin (Ecotrin) 81 mg PO DAILY [facility] Last Admin: 05/17/17 09:13 Dose: 81 mg Atorvastatin Calcium (Lipitor) 20 mg PO QPM [facility] Last Admin: 05/16/17 17:23 Dose: 20 mg Docusate Sodium (Colace) 100 mg PO BID [facility] Last Admin: 05/17/17 09:12 Dose: 100 mg Enalapril Maleate (Vasotec) 10 mg PO DAILY [facility] Last Admin: 05/17/17 09:14 Dose: 10 mg Enoxaparin Sodium (Lovenox) 40 mg SC DAILY [facility] PRN Reason: Protocol Last Admin: 05/17/17 09:12 Dose: 40 mg Guaifenesin (Mucinex La) 600 mg PO Q12 [facility] Last Admin: 05/17/17 09:12 Dose: 600 mg Hydromorphone HCl (Dilaudid) 0.5 mg IVP Q4 PRN PRN Reason: breakthrough pain Last Admin: 05/17/17 09:29 Dose: 0.5 mg Metoprolol Tartrate (Lopressor) 25 mg PO Q12H [facility] Last Admin: 05/17/17 09:13 Dose: 25 mg Ondansetron HCl (Zofran Inj) 4 mg IVP Q6 PRN PRN Reason: Nausea/Vomiting Oxycodone/Acetaminophen (Percocet 5/325 Mg Tab) 1 tab PO Q6 PRN PRN Reason: Pain, moderate (4-7) Stop: 05/19/17 08:00 Last Admin: 05/17/17 14:00 Dose: 1 tab - Labs Labs: 05/17/17 05:30 05/17/17 05:30 - Respiratory Exam Respiratory Exam: NORMAL BREATHING PATTERN - Cardiovascular Exam Cardiovascular Exam: REGULAR RHYTHM - GI/Abdominal Exam GI & Abdominal Exam: Normal Bowel Sounds Assessment and Plan - Assessment and Plan (Free Text) Assessment: S/P Low back surgery Severe Spinal Stenosis PT advance diet Incentive spirometry Pain medication Ortho COPD Smoker Pulmonary HTN Prediabetes S/P TAVR Cardiology WBC?? Surgery?? ID
[2017-05-17] MEDS: Albuterol-Ipratrop 3 mg / 0.5 (3 ml) UD INH SCH ×2 (15:36→19:11)
[2017-05-17] MEDS: Magnesium Hydroxide Susp 30 ml UD PO PRN (16:41)
[2017-05-18] MEDS: Magnesium Hydroxide Susp 30 ml UD PO PRN (06:57)
[2017-05-18] MEDS: Albuterol-Ipratrop 3 mg / 0.5 (3 ml) UD INH SCH ×3 (08:12→15:51)
[2017-05-18 08:32] VITALS: RESP 20
[2017-05-18] MEDS: Oxycodone/Acetaminophen 5/325 mg Tab PO PRN (10:18)
[2017-05-18] MEDS: guaiFENesin 600 mg ER Tab PO SCH (10:19)
[2017-05-18] MEDS: Enoxaparin 40 mg Syringe SC SCH (10:19)
--- NOTE | 2017-05-18 11:11 | CP.PCM.PN ---
Subjective - Date & Time of Evaluation Date of Evaluation: 05/18/17 Time of Evaluation: 11:00 - Subjective Subjective: NO CHEST PAIN OR SOB JUST COMPLAINS OF BACK AND LEG PAIN Objective - Vital Signs/Intake and Output Vital Signs (last 24 hours): Temp Pulse Resp BP Pulse Ox 97.7 F 89 20 150/72 95 05/18/17 08:31 05/18/17 10:20 05/18/17 08:31 05/18/17 10:20 05/18/17 08:31 - Medications Medications: Current Medications Albuterol Sulfate (Albuterol 0.083% Inhal Olivia (2.5 Mg/3 Ml) Ud) 2.5 mg INH RQ4 PRN PRN Reason: Shortness of Breath Albuterol/Ipratropium (Duoneb 3 Mg/0.5 Mg (3 Ml) Ud) 3 ml INH RQID [facility] Last Admin: 05/18/17 08:12 Dose: 3 ml Allopurinol (Zyloprim) 300 mg PO DAILY [facility] Last Admin: 05/18/17 10:20 Dose: 300 mg Aspirin (Ecotrin) 81 mg PO DAILY [facility] Last Admin: 05/18/17 10:19 Dose: 81 mg Atorvastatin Calcium (Lipitor) 20 mg PO QPM [facility] Last Admin: 05/17/17 20:35 Dose: 20 mg Docusate Sodium (Colace) 100 mg PO BID [facility] Last Admin: 05/18/17 10:19 Dose: 100 mg Enalapril Maleate (Vasotec) 10 mg PO DAILY [facility] Last Admin: 05/18/17 10:20 Dose: 10 mg Enoxaparin Sodium (Lovenox) 40 mg SC DAILY [facility] PRN Reason: Protocol Last Admin: 05/18/17 10:19 Dose: 40 mg Guaifenesin (Mucinex La) 600 mg PO Q12 [facility] Last Admin: 05/18/17 10:19 Dose: 600 mg Hydromorphone HCl (Dilaudid) 0.5 mg IVP Q4 PRN PRN Reason: breakthrough pain Last Admin: 05/18/17 06:53 Dose: 0.5 mg Magnesium Hydroxide (Milk Of Magnesia) 30 ml PO DAILY PRN PRN Reason: Constipation Last Admin: 05/18/17 06:57 Dose: 30 ml Metoprolol Tartrate (Lopressor) 25 mg PO Q12H [facility] Last Admin: 02/19/18 10:20 Dose: 25 mg Ondansetron HCl (Zofran Inj) 4 mg IVP Q6 PRN PRN Reason: Nausea/Vomiting Oxycodone/Acetaminophen (Percocet 5/325 Mg Tab) 1 tab PO Q6 PRN PRN Reason: Pain, moderate (4-7) Stop: 05/19/17 08:00 Last Admin: 05/18/17 10:18 Dose: 1 tab - Labs Labs: 05/17/17 05:30 05/17/17 05:30 - Respiratory Exam Respiratory Exam: Rhonchi - Cardiovascular Exam Cardiovascular Exam: REGULAR RHYTHM, +S1, +S2 Assessment and Plan - Assessment and Plan (Free Text) Assessment: S/P TAVR HYPERTENSION HYPERLIPIDEMIA COPD S/P LUMBAR LAMINECTOMIES FOR SEVERE SPINAL STENOSIS Plan: CONTINUE METOPROLOL, ENALAPRIL, ASPIRIN, LOVENOX, BRONCHODILATORS FOR REHAB
--- NOTE | 2017-05-18 12:11 | CP.PCM.PN ---
Subjective - Date & Time of Evaluation Date of Evaluation: 05/18/17 Time of Evaluation: 12:08 - Subjective Subjective: SPINE - POD #3 Pt OOB in chair. Has some pain in R leg but not pain in legs at rest as before. VSS. Afebrile. Neuro remains intact. Plan: Pt would prob benefit from [facility] to work on strengthening/ambulation/ transfers. OK for transfer whenever bed available from our viewpoint. Objective - Vital Signs/Intake and Output Vital Signs (last 24 hours): Temp Pulse Resp BP Pulse Ox 97.7 F 89 20 150/70 96 05/18/17 08:31 05/18/17 11:06 05/18/17 08:31 05/18/17 11:06 05/18/17 11:06 - Medications Medications: Current Medications Albuterol Sulfate (Albuterol 0.083% Inhal Olivia (2.5 Mg/3 Ml) Ud) 2.5 mg INH RQ4 PRN PRN Reason: Shortness of Breath Albuterol/Ipratropium (Duoneb 3 Mg/0.5 Mg (3 Ml) Ud) 3 ml INH RQID [facility] Last Admin: 05/18/17 11:12 Dose: 3 ml Allopurinol (Zyloprim) 300 mg PO DAILY [facility] Last Admin: 05/18/17 10:20 Dose: 300 mg Aspirin (Ecotrin) 81 mg PO DAILY [facility] Last Admin: 05/18/17 10:19 Dose: 81 mg Atorvastatin Calcium (Lipitor) 20 mg PO QPM [facility] Last Admin: 05/17/17 20:35 Dose: 20 mg Docusate Sodium (Colace) 100 mg PO BID [facility] Last Admin: 05/18/17 10:19 Dose: 100 mg Enalapril Maleate (Vasotec) 10 mg PO DAILY [facility] Last Admin: 05/18/17 10:20 Dose: 10 mg Enoxaparin Sodium (Lovenox) 40 mg SC DAILY [facility] PRN Reason: Protocol Last Admin: 05/18/17 10:19 Dose: 40 mg Guaifenesin (Mucinex La) 600 mg PO Q12 [facility] Last Admin: 05/18/17 10:19 Dose: 600 mg Hydromorphone HCl (Dilaudid) 0.5 mg IVP Q4 PRN PRN Reason: breakthrough pain Last Admin: 02/19/18 06:53 Dose: 0.5 mg Magnesium Hydroxide (Milk Of Magnesia) 30 ml PO DAILY PRN PRN Reason: Constipation Last Admin: 05/18/17 06:57 Dose: 30 ml Metoprolol Tartrate (Lopressor) 25 mg PO Q12H [facility] Last Admin: 05/18/17 10:20 Dose: 25 mg Ondansetron HCl (Zofran Inj) 4 mg IVP Q6 PRN PRN Reason: Nausea/Vomiting Oxycodone/Acetaminophen (Percocet 5/325 Mg Tab) 1 tab PO Q6 PRN PRN Reason: Pain, moderate (4-7) Stop: 05/19/17 08:00 Last Admin: 05/18/17 10:18 Dose: 1 tab - Labs Labs: 05/17/17 05:30 05/17/17 05:30
[2017-05-18 14:15] LABS: BASO # 0.1 K/uL (0.0-0.2); BASO % 0.7 % (0.0-2.0); EOS % 0.2 % (0.0-4.0); HEMOGLOBIN 11.1 g/dL (12.0-18.0); LYMPH # 0.8 K/uL (1.0-4.3); LYMPH % 7.3 % (20.0-40.0); MEAN CELL VOLUME 99.8 fl (80.0-94.0); MEAN CORPUSCULAR HEMOGLOBIN 32.6 pg (27.0-31.0); MEAN CORPUSCULAR HGB CONC 32.6 g/dL (33.0-37.0); MEAN PLATELET VOLUME 8.5 fl (7.2-11.7); MONO # 1.3 K/uL (0.0-0.8); MONO % 12.8 % (0.0-10.0); NEUT # 8.2 K/uL (1.8-7.0); NRBC % 0.2 % (0.0-0.0); RBC 3.42 Mil/uL (4.40-5.90); RED CELL DISTRIBUTION WIDTH 13.7 % (11.5-14.5); WHITE BLOOD COUNT 10.3 K/uL (4.8-10.8)
[2017-05-18 14:30] LABS: ALBUMIN 3.5 g/dL (3.5-5.0); ALT/SGPT 70 U/L (21-72); AST/SGOT 68 U/L (17-59); BLOOD UREA NITROGEN 13 mg/dl (9-20); GFR AFRICAN-AMERICAN > 60; GFR NON-AFRICAN AMERICAN > 60
[2017-05-18 16:29] VITALS: BP 161/75; PULSE 82; TEMP 97.6; O2SAT 95
--- NOTE | 2017-05-18 19:41 | CP.PCM.PN ---
Subjective - Date & Time of Evaluation Date of Evaluation: 05/18/17 Time of Evaluation: 22:22 - Subjective Subjective: Above noted Objective - Vital Signs/Intake and Output Vital Signs (last 24 hours): Temp Pulse Resp BP Pulse Ox 97.6 F 82 20 161/75 H 95 05/18/17 16:28 05/18/17 16:28 05/18/17 16:28 05/18/17 16:28 05/18/17 16:28 - Labs Labs: 05/18/17 14:00 05/18/17 14:00 - Respiratory Exam Respiratory Exam: NORMAL BREATHING PATTERN - Cardiovascular Exam Cardiovascular Exam: REGULAR RHYTHM - GI/Abdominal Exam GI & Abdominal Exam: Normal Bowel Sounds Assessment and Plan - Assessment and Plan (Free Text) Assessment: S/P Low back surgery Severe Spinal Stenosis PT advance diet Incentive spirometry Pain medication Ortho COPD Smoker Pulmonary HTN Prediabetes S/P TAVR Cardiology WBC?? Surgery?? WNL today ID
--- NOTE | 2017-05-19 15:33 | OP ---
PROCEDURE DATE: 05/15/2017 PREOPERATIVE DIAGNOSES: 1. Severe lumbar spinal stenosis, L3-4 and L4-5. 2. Herniated disc, L4-5. FINAL DIAGNOSES: 1. Severe lumbar spinal stenosis, L3-4 and L4-5. 2. Herniated disc, L4-5. OPERATIVE PROCEDURES: 1. Decompressive laminectomy, L3 to L5. 2. Excision of large herniated disc, L4-5. SURGEON: Moshe Rojas MD RN TELEMETRY: Dheeraj Reeves MD TYPE OF ANESTHESIA: General endotracheal tube intubation. DESCRIPTION OF PROCEDURE: The patient was brought to the operative room and general anesthesia was achieved. Intravenous antibiotics were administered and spinal cord monitoring leads were placed throughout the patient's body. Real-time monitoring was done by a flight data technician in the room and remote monitoring done by a physician as well. Sequential compression boots were placed to each of the patient's legs. After the antibiotics were administered, a Hyde catheter was inserted. The patient was then gently transferred onto the operating table and placed prone on Trino frame, keeping his abdomen free from pressure anteriorly. Care was taken to protect the elbows and knees from pressure points. A Steri-Drape was used to seal off the patient's region from the operative field and his back was sterilely prepped and draped. Lidocaine with epinephrine was used to infiltrate the site for the incision as located under fluoroscopy and incision was then made sharply in the midline. It was taken down to subcutaneous tissue using sharp and blunt dissection. Hemostasis was achieved using electrocautery. The fascia was divided and stripped laterally off the spinous process and lamina at the level of the facet joints. Soft tissue attachments were cleared on each sides such that we could identify the pars at each level on each side. Fluoroscopic view was taken, which confirmed we were at the appropriate levels that is just above the L3-4 disc and below the L4-5 disc. A [place] rongeur was used to remove the spinous process and thin down the lamina and laminectomy was then carried out in a [id number] fashion first in the midline and then have laterally on each side. The patient was noted to have very tight at the L4-5 level and difficult to mobilize the thecal sac. At the L3-4 level, there was extreme stenosis secondary to facet hypertrophy and thickened ligamentum. We came down laterally at the each side. We did so until we could see the curvature of the thecal sac and foraminotomies are carried out until we could easily pass a [place] tool out each foramina, going from L3 and down to an occluding L5 on each side. The hemostasis was achieved using bipolar cautery as well as thrombinated Gelfoam powder. At the L4-5 level, as we gently retracted thecal sac toward the midline away from the right side, there was extremely large contained herniated disc at that level. The annulus was incised and disc material was removed. Once this was done, the thecal sac was no longer under tension and laid much flatter. The area was irrigated with antibiotic solution. No loose fragments or anything else were noted with passes of the Adriana tool on the ventral surface of the thecal sac. Hemostasis again was achieved using thrombinated Gelfoam powder as well as bipolar cautery. Some vancomycin powder was placed into the disc space. A large piece of solid Gelfoam was used to cover the exposed neural elements since liquid Thrombin was added. The wound was closed in layers with interrupted sutures of 0 Vicryl for the muscle. This was then irrigated and some more vancomycin powder was placed on top of it. The fascia was then approximated with interrupted sutures of 0 Vicryl and again, the area irrigated and more vancomycin powder placed. The subcutaneous tissue was closed in layers with sutures of 0 and 2-0 Vicryl and the skin was approximated with rosa. Bacitracin ointment and sterile dressing were applied. The patient was gently transferred back onto his bed in supine position. He was awakened and extubated. He was taken to the recovery room in stable condition having tolerated the procedure well. Estimated blood loss was 350 mL. He received 800 mL of crystalloid during the operation and had a urine output of 175 mL. He was actually moving his extremities at the time of his transfer and no electrophysiologic abnormalities were noted at the completion of the case. Moshe Rojas MD
== END 2017-05-18 16:50 | DRG 519 ==
LOC: H.OPSURG 07:46 → H.ICU/CCU 11:42 → H.MEDSURG1 05-16 16:40
PROVIDERS: ADMIT Family Medicine Geriatric Medicine; ATTEND Family Medicine Geriatric Medicine
PROC: 0ST20ZZ Resection of Lumbar Vertebral Disc, Open Approach (ICD-10-PCS; 2017-05-15)
PROC: 00NY0ZZ Release Lumbar Spinal Cord, Open Approach (ICD-10-PCS; principal; 2017-05-15 09:00)
DX: M51.26 Other intervertebral disc displacement, lumbar region (principal); I50.32 Chronic diastolic (congestive) heart failure; I11.0 Hypertensive heart disease with heart failure; J44.1 Chronic obstructive pulmonary disease with (acute) exacerbation; M48.00 Spinal stenosis, site unspecified; E78.00 Pure hypercholesterolemia, unspecified; J40 Bronchitis, not specified as acute or chronic; R73.03 Prediabetes; Z95.2 Presence of prosthetic heart valve; M10.9 Gout, unspecified; M48.061 Spinal stenosis, lumbar region without neurogenic claudication; M54.2 Cervicalgia; E78.5 Hyperlipidemia, unspecified; F17.200 Nicotine dependence, unspecified, uncomplicated; K59.00 Constipation, unspecified; I87.8 Other specified disorders of veins

== ENCOUNTER 2017-05-18 15:30 | Inpatient (IN) | payer MEDICARE, OTHER ==
[2017-05-18] MEDS ORDERED: Albuterol 0.083% Inhal Sol (2.5 mg/3 mL) UD INH PRN (17:22)
[2017-05-18] MEDS ORDERED: Oxycodone/Acetaminophen 5/325 mg Tab PO PRN (17:22)
[2017-05-18] MEDS: Albuterol-Ipratrop 3 mg / 0.5 (3 ml) UD IH SCH (19:30)
[2017-05-18] MEDS: guaiFENesin-DM 600-30 mg ER Tab PO SCH (21:51)
[2017-05-18] MEDS: Oxycodone/Acetaminophen 5/325 mg Tab PO PRN (21:52)
[2017-05-19] MEDS: Pantoprazole 40 mg EC Tab PO SCH (06:09)
[2017-05-19] MEDS: Albuterol-Ipratrop 3 mg / 0.5 (3 ml) UD IH SCH ×4 (07:26→19:19)
[2017-05-19] MEDS: Enoxaparin 40 mg Syringe SC SCH (08:36)
[2017-05-19] MEDS: guaiFENesin-DM 600-30 mg ER Tab PO SCH ×2 (10:00→21:56)
--- NOTE | 2017-05-19 10:12 | CP.PCM.CON ---
History of Present Illness - History of Present Illness History of Present Illness: Asked to follow this 87-year-old male, former cigarette smoker who suffers from chronic bronchitis. He recently underwent decompressive laminectomy of the lumbar spine because of spinal stenosis. He does have chronic cough with primarily mucoid sputum production. He has been doing well postoperatively and has been transferred to rehabilitation. He continues to take his regular medications and inhalation therapy. He does have a congested cough and has difficulty in expectorating sputum. Past Patient History - Past Medical History & Family History Past Medical History?: Yes - Past Social History Smoking Status: Former Smoker Chewing Tobacco Use: No Cigar Use: No Alcohol: Other (drinks wine daily) Drugs: Denies Home Situation {Lives}: With Family - CARDIAC Hx Circulatory Problems: Yes (BLE Venous Stasis) Hx Hypercholesterolemia: Yes Hx Hypertension: Yes Hx Peripheral Edema: Yes Other/Comment: Aortic valve replacement (TAVR). - PULMONARY Hx Bronchitis: Yes Hx Chronic Obstructive Pulmonary Disease (COPD): Yes Other/Comment: Ex smoker, quit 2 years ago - NEUROLOGICAL Hx Neurological Disorder: No - HEENT Hx HEENT Problems: No - RENAL Hx Chronic Kidney Disease: No - ENDOCRINE/METABOLIC Hx Endocrine Disorders: No - HEMATOLOGICAL/ONCOLOGICAL Hx Blood Disorders: No - INTEGUMENTARY Hx Cellulitis: Yes - MUSCULOSKELETAL/RHEUMATOLOGICAL Hx Back Pain: Yes Hx Falls: No Hx Gout: Yes Hx Spinal Stenosis: Yes (S/P Laminectomy L3-L5 05/15/2017) - GASTROINTESTINAL Hx Gastrointestinal Disorders: No - GENITOURINARY/GYNECOLOGICAL Hx Genitourinary Disorders: No - PSYCHIATRIC Hx Substance Use: No - SURGICAL HISTORY Hx Surgeries: Yes Hx Valve Replacement: Yes (TAVR) Other/Comment: Laminectomy L3-L5 05/15/2017 - ANESTHESIA Hx Anesthesia: Yes Hx Anesthesia Reactions: No Hx Malignant Hyperthermia: No Has any member of the family had a problem w/ anesthesia?: No Meds Allergies/Adverse Reactions: Allergies Allergy/AdvReac Type Severity Reaction Status Date / Time No Known Allergies Allergy Verified 05/18/17 17:15 - Medications Medications: Current Medications Albuterol Sulfate (Albuterol 0.083% Inhal Olivia (2.5 Mg/3 Ml) Ud) 2.5 mg INH RQ4 PRN PRN Reason: Shortness of Breath Albuterol/Ipratropium (Duoneb 3 Mg/0.5 Mg (3 Ml) Ud) 3 ml IH RQID [facility] Last Admin: 05/19/17 07:26 Dose: 3 ml Allopurinol (Zyloprim) 300 mg PO DAILY [facility] Last Admin: 05/19/17 08:32 Dose: 300 mg Aspirin (Ecotrin) 81 mg PO DAILY [facility] Last Admin: 05/19/17 08:32 Dose: 81 mg Atorvastatin Calcium (Lipitor) 20 mg PO HS [facility] Last Admin: 05/18/17 21:51 Dose: 20 mg Bisacodyl (Dulcolax) 10 mg [place] DAILY PRN PRN Reason: Constipation Last Admin: 05/19/17 04:05 Dose: 10 mg Clotrimazole (Lotrimin 1% Cream) 1 applic TOP 0600 [facility] Last Admin: 05/19/17 06:10 Dose: 1 applic Docusate Sodium (Colace) 100 mg PO BID [facility] Last Admin: 05/19/17 08:31 Dose: 100 mg Enalapril Maleate (Vasotec) 10 mg PO DAILY [facility] Last Admin: 05/19/17 08:32 Dose: 10 mg Enoxaparin Sodium (Lovenox) 40 mg SC DAILY [facility] PRN Reason: Protocol Last Admin: 05/19/17 08:36 Dose: 40 mg Guaifenesin/Dextromethorphan (Mucinex-Dm 600-30 Mg) 1 tab PO Q12 [facility] Last Admin: 05/18/17 21:51 Dose: 1 tab Magnesium Hydroxide (Milk Of Magnesia) 30 ml PO DAILY PRN PRN Reason: Constipation Metoprolol Tartrate (Lopressor) 25 mg PO Q12 [facility] Last Admin: 05/19/17 08:31 Dose: 25 mg Ondansetron HCl (Zofran Inj) 4 mg IVP Q6H PRN PRN Reason: Nausea/Vomiting Oxycodone/Acetaminophen (Percocet 5/325 Mg Tab) 1 tab PO Q6 PRN PRN Reason: Pain, moderate (4-7) Stop: 05/21/17 17:23 Oxycodone/Acetaminophen (Percocet 5/325 Mg Tab) 2 tab PO Q6 PRN PRN Reason: Pain, severe (8-10) Stop: 05/21/17 17:25 Last Admin: 05/18/17 21:52 Dose: 2 tab Pantoprazole Sodium (Protonix Ec Tab) 40 mg PO 0600 [facility] Last Admin: 05/19/17 06:09 Dose: 40 mg Sennosides (Senokot Tab) 17.2 mg PO HS [facility] Last Admin: 05/18/17 22:13 Dose: 17.2 mg Physical Exam - Additional Findings Additional findings: Patient is presently lying in bed in no acute distress. Chest congestion is audible with inability to expectorate. Dependent edema has almost completely resolved. No cyanosis. Neck supple and trachea is midline. No neck vein distention or carotid bruit. No dullness on chest percussion. No subcutaneous emphysema. Diminished breath sounds present bilaterally. Some rhonchi are heard in dependent zones of both lungs. No audible wheezing. No bronchial breathing or egophony. Heart sounds are distant and rhythm is regular. The abdomen is protuberant, bowel sounds are present, nontender. Results - Vital Signs Recent Vital Signs: Last Vital Signs Temp 97.7 F 05/19/17 07:59 Pulse 80 05/19/17 08:31 Resp 18 05/19/17 07:59 BP 143/73 05/19/17 08:31 Pulse Ox 98 05/19/17 07:59 Assessment & Plan (1) COPD (chronic obstructive pulmonary disease) with chronic bronchitis Status: Chronic Priority: High (2) Cough Status: Chronic Priority: High - Assessment and Plan (Free Text) Plan: Continual maintenance nebulizer treatments. Encourage deep breathing and coughing. Mucolytic and cough suppressant as needed. Supplemental oxygen as needed for physical therapy. - Date & Time Date: 05/19/17 Time: 10:18
--- NOTE | 2017-05-19 11:24 | CP.PCM.CON ---
History of Present Illness - History of Present Illness History of Present Illness: THE PATIENT IS AN 87 YEAR OLD MALE WHO HAD SEVERE LIMBAR STENOSIS WITH LEG PAIN AND DIFFICULTY WALKING WHO UNDERWENT A LAMINECTOMY LAST WEEK AND NOW WAS ADMITTED TO FOR ACUTE REHAB. HE ALSO HAS A HISTORY OF RECENT TAVR FOR AORTIC STENOSIS, HYPERTENSION, HYPERLIPIDEMIA AND CHRONIC BRONCHITIS. CARDIOLOGY WAS ASKED TO FOLLOW THE PATIENT IN ACUTE REHAB. HE DENIES CHEST PAIN. HE ALREADY HAS LESS LEG PAIN THAN HE DID PRIOR TO SURGERY AND IS PARTICIPATING IN REHAB. Past Patient History - Past Medical History & Family History Past Medical History?: Yes - Past Social History Smoking Status: Former Smoker Chewing Tobacco Use: No Cigar Use: No Alcohol: Other (drinks wine daily) Drugs: Denies Home Situation {Lives}: With Family - CARDIAC Hx Circulatory Problems: Yes (BLE Venous Stasis) Hx Hypercholesterolemia: Yes Hx Hypertension: Yes Hx Peripheral Edema: Yes Other/Comment: Aortic valve replacement (TAVR). - PULMONARY Hx Bronchitis: Yes Hx Chronic Obstructive Pulmonary Disease (COPD): Yes Other/Comment: Ex smoker, quit 2 years ago - NEUROLOGICAL Hx Neurological Disorder: No - HEENT Hx HEENT Problems: No - RENAL Hx Chronic Kidney Disease: No - ENDOCRINE/METABOLIC Hx Endocrine Disorders: No - HEMATOLOGICAL/ONCOLOGICAL Hx Blood Disorders: No - INTEGUMENTARY Hx Cellulitis: Yes - MUSCULOSKELETAL/RHEUMATOLOGICAL Hx Back Pain: Yes Hx Falls: No Hx Gout: Yes Hx Spinal Stenosis: Yes (S/P Laminectomy L3-L5 05/15/2017) - GASTROINTESTINAL Hx Gastrointestinal Disorders: No - GENITOURINARY/GYNECOLOGICAL Hx Genitourinary Disorders: No - PSYCHIATRIC Hx Substance Use: No - SURGICAL HISTORY Hx Surgeries: Yes Hx Valve Replacement: Yes (TAVR) Other/Comment: Laminectomy L3-L5 05/15/2017 - ANESTHESIA Hx Anesthesia: Yes Hx Anesthesia Reactions: No Hx Malignant Hyperthermia: No Has any member of the family had a problem w/ anesthesia?: No Meds Allergies/Adverse Reactions: Allergies Allergy/AdvReac Type Severity Reaction Status Date / Time No Known Allergies Allergy Verified 05/18/17 17:15 - Medications Medications: Current Medications Albuterol Sulfate (Albuterol 0.083% Inhal Olivia (2.5 Mg/3 Ml) Ud) 2.5 mg INH RQ4 PRN PRN Reason: Shortness of Breath Albuterol/Ipratropium (Duoneb 3 Mg/0.5 Mg (3 Ml) Ud) 3 ml IH RQID [facility] Last Admin: 05/19/17 07:26 Dose: 3 ml Allopurinol (Zyloprim) 300 mg PO DAILY [facility] Last Admin: 05/19/17 08:32 Dose: 300 mg Aspirin (Ecotrin) 81 mg PO DAILY [facility] Last Admin: 05/19/17 08:32 Dose: 81 mg Atorvastatin Calcium (Lipitor) 20 mg PO HS [facility] Last Admin: 05/18/17 21:51 Dose: 20 mg Bisacodyl (Dulcolax) 10 mg [place] DAILY PRN PRN Reason: Constipation Last Admin: 05/19/17 04:05 Dose: 10 mg Clotrimazole (Lotrimin 1% Cream) 1 applic TOP 0600 [facility] Last Admin: 05/19/17 06:10 Dose: 1 applic Docusate Sodium (Colace) 100 mg PO BID [facility] Last Admin: 05/19/17 08:31 Dose: 100 mg Enalapril Maleate (Vasotec) 10 mg PO DAILY [facility] Last Admin: 05/19/17 08:32 Dose: 10 mg Enoxaparin Sodium (Lovenox) 40 mg SC DAILY [facility] PRN Reason: Protocol Last Admin: 05/19/17 08:36 Dose: 40 mg Guaifenesin/Dextromethorphan (Mucinex-Dm 600-30 Mg) 1 tab PO Q12 [facility] Last Admin: 05/18/17 21:51 Dose: 1 tab Magnesium Hydroxide (Milk Of Magnesia) 30 ml PO DAILY PRN PRN Reason: Constipation Metoprolol Tartrate (Lopressor) 25 mg PO Q12 [facility] Last Admin: 05/19/17 08:31 Dose: 25 mg Ondansetron HCl (Zofran Inj) 4 mg IVP Q6H PRN PRN Reason: Nausea/Vomiting Oxycodone/Acetaminophen (Percocet 5/325 Mg Tab) 1 tab PO Q6 PRN PRN Reason: Pain, moderate (4-7) Stop: 05/21/17 17:23 Oxycodone/Acetaminophen (Percocet 5/325 Mg Tab) 2 tab PO Q6 PRN PRN Reason: Pain, severe (8-10) Stop: 05/21/17 17:25 Last Admin: 05/18/17 21:52 Dose: 2 tab Pantoprazole Sodium (Protonix Ec Tab) 40 mg PO 0600 [facility] Last Admin: 05/19/17 06:09 Dose: 40 mg Sennosides (Senokot Tab) 17.2 mg PO HS [facility] Last Admin: 05/18/17 22:13 Dose: 17.2 mg Physical Exam - Respiratory Exam Respiratory Exam: Decreased Breath Sounds, Rhonchi - Cardiovascular Exam Cardiovascular Exam: REGULAR RHYTHM, +S1, +S2 - Extremities Exam Additional comments: LE EDEMA HAS ESSENTIALLY RESOLVED Results - Vital Signs Recent Vital Signs: Last Vital Signs Temp 97.7 F 05/19/17 07:59 Pulse 80 05/19/17 08:31 Resp 18 05/19/17 07:59 BP 143/73 05/19/17 08:31 Pulse Ox 98 05/19/17 07:59 Assessment & Plan - Assessment and Plan (Free Text) Assessment: S/P LAMINECTOMY FOR SEVERE LUMBAR STENOSIS S/P TAVR CHRONIC BRONCHITIS HYPERTENSION HYPERLIPIDEMIA Plan: CONTINUE METOPROLOL, ENALAPRIL, ATORVASTATIN, BRONCHODILATORS, ASPIRIN AND LOVENOX CONTINUE ACUTE REHAB
[2017-05-19] MEDS: Magnesium Hydroxide Susp 30 ml UD PO PRN (12:24)
--- NOTE | 2017-05-19 13:16 | CP.PCM.CON ---
History of Present Illness - History of Present Illness History of Present Illness: Dr Madrigal PMR consultation on Marisa Velez, born 1930, who has been admitted to [facility] for acute inpatient rehabilitation following lumbar decompressive surgery L3-5. Dr Rojas was the primary surgeon. Post op pain is somewhat improved. He is constipated. He has a lost of stairs and had chronic leg pain secondary to other orthopedic issues including DJD and gastroc tear Review of Systems - Constitutional Constitutional: absent: Anorexia, Chills - EENT Nose/Mouth/Throat: absent: Nasal Congestion - Cardiovascular Cardiovascular: absent: Chest Pain - Respiratory Respiratory: Dyspnea on Exertion. absent: Dyspnea - Gastrointestinal Gastrointestinal: Bloating, Constipation - Musculoskeletal Musculoskeletal: Back Pain - Integumentary Integumentary: absent: Bleeding Lesions (incision CDI) - Neurological Neurological: absent: Abnormal Movements - Psychiatric Psychiatric: absent: Anxiety Past Patient History - Past Medical History & Family History Past Medical History?: Yes - Past Social History Smoking Status: Former Smoker Chewing Tobacco Use: No Cigar Use: No Alcohol: Other (drinks wine daily) Drugs: Denies Home Situation {Lives}: With Family - CARDIAC Hx Circulatory Problems: Yes (BLE Venous Stasis) Hx Hypercholesterolemia: Yes Hx Hypertension: Yes Hx Peripheral Edema: Yes Other/Comment: Aortic valve replacement (TAVR). - PULMONARY Hx Bronchitis: Yes Hx Chronic Obstructive Pulmonary Disease (COPD): Yes Other/Comment: Ex smoker, quit 2 years ago - NEUROLOGICAL Hx Neurological Disorder: No - HEENT Hx HEENT Problems: No - RENAL Hx Chronic Kidney Disease: No - ENDOCRINE/METABOLIC Hx Endocrine Disorders: No - HEMATOLOGICAL/ONCOLOGICAL Hx Blood Disorders: No - INTEGUMENTARY Hx Cellulitis: Yes - MUSCULOSKELETAL/RHEUMATOLOGICAL Hx Back Pain: Yes Hx Falls: No Hx Gout: Yes Hx Spinal Stenosis: Yes (S/P Laminectomy L3-L5 05/15/2017) - GASTROINTESTINAL Hx Gastrointestinal Disorders: No - GENITOURINARY/GYNECOLOGICAL Hx Genitourinary Disorders: No - PSYCHIATRIC Hx Substance Use: No - SURGICAL HISTORY Hx Surgeries: Yes Hx Valve Replacement: Yes (TAVR) Other/Comment: Laminectomy L3-L5 05/15/2017 - ANESTHESIA Hx Anesthesia: Yes Hx Anesthesia Reactions: No Hx Malignant Hyperthermia: No Has any member of the family had a problem w/ anesthesia?: No Meds Allergies/Adverse Reactions: Allergies Allergy/AdvReac Type Severity Reaction Status Date / Time No Known Allergies Allergy Verified 05/18/17 17:15 - Medications Medications: Current Medications Albuterol Sulfate (Albuterol 0.083% Inhal Olivia (2.5 Mg/3 Ml) Ud) 2.5 mg INH RQ4 PRN PRN Reason: Shortness of Breath Albuterol/Ipratropium (Duoneb 3 Mg/0.5 Mg (3 Ml) Ud) 3 ml IH RQID [facility] Last Admin: 05/19/17 11:34 Dose: 3 ml Allopurinol (Zyloprim) 300 mg PO DAILY [facility] Last Admin: 05/19/17 08:32 Dose: 300 mg Aspirin (Ecotrin) 81 mg PO DAILY [facility] Last Admin: 05/19/17 08:32 Dose: 81 mg Atorvastatin Calcium (Lipitor) 20 mg PO HS [facility] Last Admin: 05/18/17 21:51 Dose: 20 mg Bisacodyl (Dulcolax) 10 mg [place] DAILY PRN PRN Reason: Constipation Last Admin: 05/19/17 04:05 Dose: 10 mg Clotrimazole (Lotrimin 1% Cream) 1 applic TOP 0600 [facility] Last Admin: 05/19/17 06:10 Dose: 1 applic Docusate Sodium (Colace) 100 mg PO BID [facility] Last Admin: 05/19/17 08:31 Dose: 100 mg Enalapril Maleate (Vasotec) 10 mg PO DAILY [facility] Last Admin: 05/19/17 08:32 Dose: 10 mg Enoxaparin Sodium (Lovenox) 40 mg SC DAILY [facility] PRN Reason: Protocol Last Admin: 05/19/17 08:36 Dose: 40 mg Guaifenesin/Dextromethorphan (Mucinex-Dm 600-30 Mg) 1 tab PO Q12 [facility] Last Admin: 05/19/17 10:00 Dose: 1 tab Magnesium Hydroxide (Milk Of Magnesia) 30 ml PO DAILY PRN PRN Reason: Constipation Last Admin: 05/19/17 12:24 Dose: 30 ml Metoprolol Tartrate (Lopressor) 25 mg PO Q12 [facility] Last Admin: 05/19/17 08:31 Dose: 25 mg Ondansetron HCl (Zofran Inj) 4 mg IVP Q6H PRN PRN Reason: Nausea/Vomiting Oxycodone/Acetaminophen (Percocet 5/325 Mg Tab) 1 tab PO Q6 PRN PRN Reason: Pain, moderate (4-7) Stop: 05/21/17 17:23 Oxycodone/Acetaminophen (Percocet 5/325 Mg Tab) 2 tab PO Q6 PRN PRN Reason: Pain, severe (8-10) Stop: 05/21/17 17:25 Last Admin: 05/18/17 21:52 Dose: 2 tab Pantoprazole Sodium (Protonix Ec Tab) 40 mg PO 0600 [facility] Last Admin: 05/19/17 06:09 Dose: 40 mg Sennosides (Senokot Tab) 17.2 mg PO HS [facility] Last Admin: 05/18/17 22:13 Dose: 17.2 mg Physical Exam - Constitutional Appears: Non-toxic - Head Exam Head Exam: ATRAUMATIC - Eye Exam Eye Exam: EOMI - ENT Exam ENT Exam: Mucous Membranes Moist - Respiratory Exam Respiratory Exam: NORMAL BREATHING PATTERN - GI/Abdominal Exam GI & Abdominal Exam: Distended. absent: Guarding - Neurological Exam Neurological exam: Alert, CN II-XII Intact, Oriented x3 - Psychiatric Exam Psychiatric exam: Normal Affect, Normal Mood - Skin Skin Exam: Warm (Incision is CDI with rosa in place) Results - Vital Signs Recent Vital Signs: Last Vital Signs Temp 97.7 F 05/19/17 13:06 Pulse 80 05/19/17 13:06 Resp 18 05/19/17 13:06 BP 143/73 05/19/17 13:06 Pulse Ox 98 05/19/17 07:59 Assessment & Plan - Assessment and Plan (Free Text) Assessment: PT/OT to continue to help increase functional independence Team conference for d/c planning Pain: controlled Vascular: no evidence of DVT GI + constipation will increase bowel regimen Patient is an excellent acute rehabilitation candidate and will have focused pain management, wound care, PT, OT and recreational therapy to help facilitate a safe and appropriate d/c plan
--- NOTE | 2017-05-19 13:18 | PSY.TMCNF ---
Nursing - Vital Signs Vital Signs (Last 8 hours): Vital Signs 05/19/17 05/19/17 05/19/17 07:59 08:31 13:06 Temperature 97.7 F 97.7 F Pulse Rate 80 80 80 Respiratory 18 18 Rate Blood Pressure 143/73 143/73 143/73 O2 Sat by Pulse 98 Oximetry Pain: 0 - Precautions: Precautions: Fall Prevention - Medications/Other Issues Comment: Constipated.Abdomen tympanitic - Consults Comment: Dr. Madrigal, Dr. Grewal, Dr. Dickens, Dr. Dixon - Skin Incision Site: mid lower back Dressing Status: Clean, Dry, Intact Incision: [place] Intact Incision Line Treatment: Cleanse with NS,apply dry dressing. - Toileting Toileting: Maximal Assistance - Bladder Management Bladder Pattern: Normal Voiding Method: Urinal Bladder Management: Supervision Frequency of Accidents: 0 - Bowel Management Bowel Pattern: Constipated Bowel Management: Maximal Assistance Frequency of Accidents: 0 - Transfers Transfers: Moderate Assistance - ADL's ADL's: Moderate Assistance - Pain Management Comments: Percocet PRN - Patient/Family Teaching Comments: Care post Laminectomy , Spinal and Safety Precautions - Goals/Time Frame Comments: Per multidisciplinary care plan and goals - Provider Provider: Riri GUIDRYN RN CRRN Physical Therapy - Pain Management Techniques: Medication, Inactivity - Provider License Number: [id number] Occupational Therapy - Arousal/Attention/Orientation Level of Consciousness: Awake, Alert Patient Orientation: Person, Place, Time - ADL/IADL Self Feeding: Set-up Help Grooming: Set-up Help Bathing-Upper Extremity: Contact Guard Bathing-Lower Extremity: Moderate Assistance Dressing-Upper Extremity: Minimal Assistance Dressing-Lower Extremity: Moderate Assistance - Pain Alleviating Techniques: Medication, Inactivity - Provider Therapist: kevin Nutrition - Current Diet Current Diet/ Supplement/ Feedings: Heart healthy. give All Bran and Prunes every breakfast - Appetite Percent Meal Consumed: 75-100% - Comments Comments: Care post Laminectomy , Spinal and Safety Precautions - Assessment/Goals/Time Frame Assessment/Goals/Time Frame: Constipated.Abdomen tympanitic - Provider Provider: Pattie Boyd RD Case Management - Discharge Plan Discharge Plan: Home with significant other/family
--- NOTE | 2017-05-19 13:57 | PCM.OPOC ---
Physiatry Overall Plan of Care - Overall Plan of Care Estimated Length of Stay in Weeks: 2 Rehab Impairment: Mobility, Gait, Cognition, Balance, Coordination Etiologic Diagnosis: Other (lumbar surgery) - Anticipated Interventions Physical Therapy:: Yes Occupational Therapy:: Yes Speech Therapy:: No Recreational Therapy:: Yes - Therapy Goals Bed Mobility: Supervision Ambulation: Supervision Functional Positional Changes:: Contact Guard - Discharge Plan Identification of Barriers to Discharge: Home Situation Discharge Destination: Home
--- NOTE | 2017-05-19 21:04 | CP.PCM.HP ---
History of Present Illness - History of Present Illness History of Present Illness: 87 yo s/p Low back surgery hx s/p TAVR COPD admitted to acute rehab Present on Admission - Present on Admission Any Indicators Present on Admission: No Past Patient History - Past Medical History & Family History Past Medical History?: Yes - Past Social History Smoking Status: Former Smoker Chewing Tobacco Use: No Cigar Use: No Alcohol: Other (drinks wine daily) Drugs: Denies Home Situation {Lives}: With Family - CARDIAC Hx Circulatory Problems: Yes (BLE Venous Stasis) Hx Hypercholesterolemia: Yes Hx Hypertension: Yes Hx Peripheral Edema: Yes Other/Comment: Aortic valve replacement (TAVR). - PULMONARY Hx Bronchitis: Yes Hx Chronic Obstructive Pulmonary Disease (COPD): Yes Other/Comment: Ex smoker, quit 2 years ago - NEUROLOGICAL Hx Neurological Disorder: No - HEENT Hx HEENT Problems: No - RENAL Hx Chronic Kidney Disease: No - ENDOCRINE/METABOLIC Hx Endocrine Disorders: No - HEMATOLOGICAL/ONCOLOGICAL Hx Blood Disorders: No - INTEGUMENTARY Hx Cellulitis: Yes - MUSCULOSKELETAL/RHEUMATOLOGICAL Hx Back Pain: Yes Hx Falls: No Hx Gout: Yes Hx Spinal Stenosis: Yes (S/P Laminectomy L3-L5 05/15/2017) - GASTROINTESTINAL Hx Gastrointestinal Disorders: No - GENITOURINARY/GYNECOLOGICAL Hx Genitourinary Disorders: No - PSYCHIATRIC Hx Substance Use: No - SURGICAL HISTORY Hx Surgeries: Yes Hx Valve Replacement: Yes (TAVR) Other/Comment: Laminectomy L3-L5 05/15/2017 - ANESTHESIA Hx Anesthesia: Yes Hx Anesthesia Reactions: No Hx Malignant Hyperthermia: No Has any member of the family had a problem w/ anesthesia?: No Meds Allergies/Adverse Reactions: Allergies Allergy/AdvReac Type Severity Reaction Status Date / Time No Known Allergies Allergy Verified 05/18/17 17:15 Physical Exam - Respiratory Exam Respiratory Exam: NORMAL BREATHING PATTERN - Cardiovascular Exam Cardiovascular Exam: REGULAR RHYTHM - GI/Abdominal Exam GI & Abdominal Exam: Normal Bowel Sounds Results - Vital Signs Recent Vital Signs: Last Vital Signs Temp 97.7 F 05/19/17 13:06 Pulse 100 H 05/19/17 18:53 Resp 18 05/19/17 13:06 BP 143/73 05/19/17 13:06 Pulse Ox 96 05/19/17 18:53 Assessment & Plan - Assessment and Plan (Free Text) Assessment: S/P Low back surgery POD#5 (Severe Spinal Stenosis) PT Incentive spirometry Pain medication Physiatry COPD Smoker Pulmonary HTN Prediabetes S/P TAVR Cardiology - Date & Time Date: 05/19/17 Time: 22:22
[2017-05-19] MEDS: Oxycodone/Acetaminophen 5/325 mg Tab PO PRN (22:04)
[2017-05-20] MEDS: Pantoprazole 40 mg EC Tab PO SCH (05:32)
[2017-05-20 06:39] LABS: MEAN CELL VOLUME 99.4 fl (80.0-94.0); MEAN CORPUSCULAR HEMOGLOBIN 32.9 pg (27.0-31.0); MEAN CORPUSCULAR HGB CONC 33.1 g/dL (33.0-37.0); RBC 3.34 Mil/uL (4.40-5.90); RED CELL DISTRIBUTION WIDTH 14.5 % (11.5-14.5); WHITE BLOOD COUNT 10.8 K/uL (4.8-10.8)
[2017-05-20 06:56] LABS: ALBUMIN 3.2 g/dL (3.5-5.0); ALT/SGPT 113 U/L (21-72); AST/SGOT 71 U/L (17-59); BLOOD UREA NITROGEN 19 mg/dl (9-20); CALCIUM 8.6 mg/dL (8.4-10.2); GFR AFRICAN-AMERICAN > 60; GFR NON-AFRICAN AMERICAN > 60
[2017-05-20] MEDS: guaiFENesin-DM 600-30 mg ER Tab PO SCH ×2 (08:22→21:45)
[2017-05-20] MEDS: Enoxaparin 40 mg Syringe SC SCH (08:23)
[2017-05-20] MEDS: Magnesium Hydroxide Susp 30 ml UD PO PRN (08:24)
[2017-05-20] MEDS: Albuterol-Ipratrop 3 mg / 0.5 (3 ml) UD IH SCH ×4 (08:41→19:17)
[2017-05-20] MEDS ORDERED: Magnesium Citrate Oral SOL (300 ml) PO STA (11:47)
--- NOTE | 2017-05-20 15:19 | RAD ---
HISTORY: abdominal distension COMPARISON: Abdomen KUB 03/05/2012. FINDINGS: BOWEL: Relatively prominent gaseous distention of large bowel loops is appreciated compensated particularly at the level of the transverse colon though moderate distention of the left hemicolon is also appreciated. Skin rosa are seen at the abdomen. No prominent small-bowel dilatation is appreciate overall, the pattern likely reflects developing ileus with distal large bowel obstruction not favored but not excluded. No prominent free intrarenal gas is appreciable. CT is available follow-up if clinically warranted. BONES: Multilevel degenerative thoraco lumbar spinal changes as imaged. OTHER FINDINGS: None. IMPRESSION: Findings may reflect a postoperative ileus with no prominent free intraperitoneal gas identified. Clinical and radiographic follow-up are advised. CT is available for follow-up if clinically warranted.
--- NOTE | 2017-05-20 15:59 | CP.PCM.CON ---
History of Present Illness - History of Present Illness History of Present Illness: General Surgery: Dr Mg Pt is an 87M, recent lumbar laminectomy L3-L5, now admitted to acute rehab facility at [facility]. Surgery consulted for abdominal distension. Pt reports prior to our encounter, he had been fairly constipated since the time of surgery and had begun to become very bloated. However pt received dulcolax suppository yesterday and since then has had 3 bowel movements. Pt reports his bloating has reduced, though it is still present. He continues to pass flatus. States he feels less uncomfortable than yesterday. Pt denies any vomiting, but does state he has been nauseous and this has reduced his appetite somewhat. Review of Systems - Review of Systems All systems: reviewed and no additional remarkable complaints except (as per hpi ) Past Patient History - Past Medical History & Family History Past Medical History?: Yes - Past Social History Smoking Status: Former Smoker Chewing Tobacco Use: No Cigar Use: No Alcohol: Other (drinks wine daily) Drugs: Denies Home Situation {Lives}: With Family - CARDIAC Hx Circulatory Problems: Yes (BLE Venous Stasis) Hx Hypercholesterolemia: Yes Hx Hypertension: Yes Hx Peripheral Edema: Yes Other/Comment: Aortic valve replacement (TAVR). - PULMONARY Hx Bronchitis: Yes Hx Chronic Obstructive Pulmonary Disease (COPD): Yes Other/Comment: Ex smoker, quit 2 years ago - NEUROLOGICAL Hx Neurological Disorder: No - HEENT Hx HEENT Problems: No - RENAL Hx Chronic Kidney Disease: No - ENDOCRINE/METABOLIC Hx Endocrine Disorders: No - HEMATOLOGICAL/ONCOLOGICAL Hx Blood Disorders: No - INTEGUMENTARY Hx Cellulitis: Yes - MUSCULOSKELETAL/RHEUMATOLOGICAL Hx Back Pain: Yes Hx Falls: No Hx Gout: Yes Hx Spinal Stenosis: Yes (S/P Laminectomy L3-L5 05/15/2017) - GASTROINTESTINAL Hx Gastrointestinal Disorders: No - GENITOURINARY/GYNECOLOGICAL Hx Genitourinary Disorders: No - PSYCHIATRIC Hx Substance Use: No - SURGICAL HISTORY Hx Surgeries: Yes Hx Valve Replacement: Yes (TAVR) Other/Comment: Laminectomy L3-L5 05/15/2017 - ANESTHESIA Hx Anesthesia: Yes Hx Anesthesia Reactions: No Hx Malignant Hyperthermia: No Has any member of the family had a problem w/ anesthesia?: No Meds Allergies/Adverse Reactions: Allergies Allergy/AdvReac Type Severity Reaction Status Date / Time No Known Allergies Allergy Verified 05/18/17 17:15 - Medications Medications: Current Medications Albuterol Sulfate (Albuterol 0.083% Inhal Olivia (2.5 Mg/3 Ml) Ud) 2.5 mg INH RQ4 PRN PRN Reason: Shortness of Breath Albuterol/Ipratropium (Duoneb 3 Mg/0.5 Mg (3 Ml) Ud) 3 ml IH RQID [facility] Last Admin: 05/20/17 15:33 Dose: Not Given Allopurinol (Zyloprim) 300 mg PO DAILY [facility] Last Admin: 05/20/17 08:22 Dose: 300 mg Aspirin (Ecotrin) 81 mg PO DAILY [facility] Last Admin: 05/20/17 08:22 Dose: 81 mg Atorvastatin Calcium (Lipitor) 20 mg PO HS [facility] Last Admin: 05/19/17 21:55 Dose: 20 mg Bisacodyl (Dulcolax) 10 mg [place] DAILY PRN PRN Reason: Constipation Last Admin: 05/19/17 04:05 Dose: 10 mg Dimethicone (Proshield Plus Skin Protectant) 1 applic TOP Q8 [facility] Docusate Sodium (Colace) 100 mg PO TID [facility] Last Admin: 05/20/17 12:09 Dose: 100 mg Enalapril Maleate (Vasotec) 10 mg PO DAILY [facility] Last Admin: 05/20/17 08:22 Dose: 10 mg Enoxaparin Sodium (Lovenox) 40 mg SC DAILY [facility] PRN Reason: Protocol Last Admin: 05/20/17 08:23 Dose: 40 mg Guaifenesin/Dextromethorphan (Mucinex-Dm 600-30 Mg) 1 tab PO Q12 [facility] Last Admin: 05/20/17 08:22 Dose: 1 tab Lactic Acid (Lac-Hydrin 12% Lotion (225 G)) 1 applic TOP 0600 [facility] Magnesium Hydroxide (Milk Of Magnesia) 30 ml PO DAILY PRN PRN Reason: Constipation Last Admin: 05/20/17 08:24 Dose: 30 ml Metoprolol Tartrate (Lopressor) 25 mg PO Q12 [facility] Last Admin: 05/20/17 08:22 Dose: 25 mg Ondansetron HCl (Zofran Inj) 4 mg IVP Q6H PRN PRN Reason: Nausea/Vomiting Oxycodone/Acetaminophen (Percocet 5/325 Mg Tab) 1 tab PO Q6 PRN PRN Reason: Pain, moderate (4-7) Stop: 05/21/17 17:23 Oxycodone/Acetaminophen (Percocet 5/325 Mg Tab) 2 tab PO Q6 PRN PRN Reason: Pain, severe (8-10) Stop: 05/21/17 17:25 Last Admin: 05/19/17 22:04 Dose: 2 tab Pantoprazole Sodium (Protonix Ec Tab) 40 mg PO 0600 [facility] Last Admin: 05/20/17 05:32 Dose: 40 mg Sennosides (Senokot Tab) 17.2 mg PO HS [facility] Last Admin: 05/19/17 21:56 Dose: 17.2 mg Physical Exam - Constitutional Appears: Non-toxic, No Acute Distress - ENT Exam ENT Exam: Mucous Membranes Moist - Respiratory Exam Respiratory Exam: absent: Respiratory Distress - Cardiovascular Exam Cardiovascular Exam: absent: Tachycardia - GI/Abdominal Exam GI & Abdominal Exam: Distended, Firm, Hypoactive Bowel Sounds. absent: Guarding , Hernia, Hyperactive Bowel Sounds, Mass, Rigid, Tenderness - Neurological Exam Neurological exam: Alert, Oriented x3 - Psychiatric Exam Psychiatric exam: Normal Mood - Skin Skin Exam: Dry, Warm Results - Vital Signs Recent Vital Signs: Last Vital Signs Temp 97.9 F 05/20/17 07:59 Pulse 108 H 05/20/17 11:50 Resp 22 05/20/17 07:59 BP 151/90 H 05/20/17 08:22 Pulse Ox 95 05/20/17 11:50 - Labs Result Diagrams: 05/20/17 05:45 05/20/17 05:45 Labs: Laboratory Results - last 24 hr 05/20/17 05/20/17 05:45 05:45 WBC 10.8 RBC 3.34 L Hgb 11.0 L Hct 33.1 L MCV 99.4 H MCH 32.9 H MCHC 33.1 RDW 14.5 Plt Count 192 Sodium 139 Potassium 4.0 Chloride 99 Carbon Dioxide 31 H Anion Gap 13 BUN 19 Creatinine 0.8 Est GFR ( Amer) > 60 Est GFR (Non-Af Amer) > 60 Random Glucose 141 H Calcium 8.6 Total Bilirubin 0.8 AST 71 H ALT 113 H D Alkaline Phosphatase 103 Total Protein 6.3 Albumin 3.2 L Globulin 3.1 Albumin/Globulin Ratio 1.0 Assessment & Plan - Assessment and Plan (Free Text) Assessment: 87M with likely post-operative ileus Plan: KUB shows distended colon with no evidence of volvulus or distal obstruction pt passing flatus and having BMs continue dulcolax suppositories daily continue to encourage ambulation and PT minimize narcotics will continue to follow closely d/w Dr Saurav Garibay, PGY3 - Date & Time Date: 05/20/17 Time: 16:01
--- NOTE | 2017-05-20 16:38 | CP.PCM.PN ---
Subjective - Date & Time of Evaluation Date of Evaluation: 05/20/17 Time of Evaluation: 16:37 - Subjective Subjective: Patient seen in the room had a very productive response to the 1/2 bottle of the mag citrate x-ray showed prominent bowel loops and ileus I stopped the percocet and reduced to ultram doing better Objective - Vital Signs/Intake and Output Vital Signs (last 24 hours): Temp Pulse Resp BP Pulse Ox 97.9 F 108 H 22 151/90 H 95 05/20/17 07:59 05/20/17 11:50 05/20/17 07:59 05/20/17 08:22 05/20/17 11:50 - Medications Medications: Current Medications Albuterol Sulfate (Albuterol 0.083% Inhal Olivia (2.5 Mg/3 Ml) Ud) 2.5 mg INH RQ4 PRN PRN Reason: Shortness of Breath Albuterol/Ipratropium (Duoneb 3 Mg/0.5 Mg (3 Ml) Ud) 3 ml IH RQID [facility] Last Admin: 05/20/17 15:33 Dose: Not Given Allopurinol (Zyloprim) 300 mg PO DAILY [facility] Last Admin: 05/20/17 08:22 Dose: 300 mg Aspirin (Ecotrin) 81 mg PO DAILY [facility] Last Admin: 05/20/17 08:22 Dose: 81 mg Atorvastatin Calcium (Lipitor) 20 mg PO HS [facility] Last Admin: 05/19/17 21:55 Dose: 20 mg Bisacodyl (Dulcolax) 10 mg IN DAILY PRN PRN Reason: Constipation Last Admin: 05/19/17 04:05 Dose: 10 mg Dimethicone (Proshield Plus Skin Protectant) 1 applic TOP Q8 [facility] Docusate Sodium (Colace) 100 mg PO TID [facility] Last Admin: 05/20/17 12:09 Dose: 100 mg Enalapril Maleate (Vasotec) 10 mg PO DAILY [facility] Last Admin: 05/20/17 08:22 Dose: 10 mg Enoxaparin Sodium (Lovenox) 40 mg SC DAILY [facility] PRN Reason: Protocol Last Admin: 05/20/17 08:23 Dose: 40 mg Guaifenesin/Dextromethorphan (Mucinex-Dm 600-30 Mg) 1 tab PO Q12 [facility] Last Admin: 05/20/17 08:22 Dose: 1 tab Lactic Acid (Lac-Hydrin 12% Lotion (225 G)) 1 applic TOP 0600 [facility] Magnesium Hydroxide (Milk Of Magnesia) 30 ml PO DAILY PRN PRN Reason: Constipation Last Admin: 05/20/17 08:24 Dose: 30 ml Metoprolol Tartrate (Lopressor) 25 mg PO Q12 [facility] Last Admin: 05/20/17 08:22 Dose: 25 mg Ondansetron HCl (Zofran Inj) 4 mg IVP Q6H PRN PRN Reason: Nausea/Vomiting Pantoprazole Sodium (Protonix Ec Tab) 40 mg PO 0600 [facility] Last Admin: 05/20/17 05:32 Dose: 40 mg Sennosides (Senokot Tab) 17.2 mg PO HS [facility] Last Admin: 05/19/17 21:56 Dose: 17.2 mg - Labs Labs: 05/20/17 05:45 05/20/17 05:45
[2017-05-20] MEDS: Proshield Plus GEL TOP SCH ×2 (17:11→21:48)
--- NOTE | 2017-05-20 19:40 | CP.PCM.PN ---
Subjective - Date & Time of Evaluation Date of Evaluation: 05/20/17 Time of Evaluation: 22:22 - Subjective Subjective: Above noted Improved following Mg citrate Objective - Vital Signs/Intake and Output Vital Signs (last 24 hours): Temp Pulse Resp BP Pulse Ox 97.9 F 108 H 22 151/90 H 95 05/20/17 07:59 05/20/17 11:50 05/20/17 07:59 05/20/17 08:22 05/20/17 11:50 - Medications Medications: Current Medications Albuterol Sulfate (Albuterol 0.083% Inhal Olivia (2.5 Mg/3 Ml) Ud) 2.5 mg INH RQ4 PRN PRN Reason: Shortness of Breath Albuterol/Ipratropium (Duoneb 3 Mg/0.5 Mg (3 Ml) Ud) 3 ml IH RQID [facility] Last Admin: 05/20/17 19:17 Dose: 3 ml Allopurinol (Zyloprim) 300 mg PO DAILY [facility] Last Admin: 05/20/17 08:22 Dose: 300 mg Aspirin (Ecotrin) 81 mg PO DAILY [facility] Last Admin: 05/20/17 08:22 Dose: 81 mg Atorvastatin Calcium (Lipitor) 20 mg PO HS [facility] Last Admin: 05/19/17 21:55 Dose: 20 mg Bisacodyl (Dulcolax) 10 mg IN DAILY PRN PRN Reason: Constipation Last Admin: 05/19/17 04:05 Dose: 10 mg Dimethicone (Proshield Plus Skin Protectant) 1 applic TOP Q8 [facility] Last Admin: 05/20/17 17:11 Dose: 1 applic Docusate Sodium (Colace) 100 mg PO TID [facility] Last Admin: 05/20/17 17:12 Dose: 100 mg Enalapril Maleate (Vasotec) 10 mg PO DAILY [facility] Last Admin: 05/20/17 08:22 Dose: 10 mg Enoxaparin Sodium (Lovenox) 40 mg SC DAILY [facility] PRN Reason: Protocol Last Admin: 05/20/17 08:23 Dose: 40 mg Guaifenesin/Dextromethorphan (Mucinex-Dm 600-30 Mg) 1 tab PO Q12 [facility] Last Admin: 05/20/17 08:22 Dose: 1 tab Lactic Acid (Lac-Hydrin 12% Lotion (225 G)) 1 applic TOP 0600 [facility] Magnesium Hydroxide (Milk Of Magnesia) 30 ml PO DAILY PRN PRN Reason: Constipation Last Admin: 05/20/17 08:24 Dose: 30 ml Metoprolol Tartrate (Lopressor) 25 mg PO Q12 [facility] Last Admin: 05/20/17 08:22 Dose: 25 mg Ondansetron HCl (Zofran Inj) 4 mg IVP Q6H PRN PRN Reason: Nausea/Vomiting Pantoprazole Sodium (Protonix Ec Tab) 40 mg PO 0600 [facility] Last Admin: 05/20/17 05:32 Dose: 40 mg Sennosides (Senokot Tab) 17.2 mg PO HS [facility] Last Admin: 05/19/17 21:56 Dose: 17.2 mg Tramadol HCl (Ultram) 50 mg PO Q4 PRN PRN Reason: pain 4-1010 - Labs Labs: 05/20/17 05:45 05/20/17 05:45 - Respiratory Exam Respiratory Exam: NORMAL BREATHING PATTERN - Cardiovascular Exam Cardiovascular Exam: REGULAR RHYTHM - GI/Abdominal Exam GI & Abdominal Exam: Normal Bowel Sounds Assessment and Plan - Assessment and Plan (Free Text) Assessment: S/P Low back surgery POD#6 (Severe Spinal Stenosis) PT Incentive spirometry Pain medication Physiatry Post operative illeus Meds ordered OOB D/C opiods COPD Smoker Pulmonary HTN Prediabetes S/P TAVR Cardiology
[2017-05-21] MEDS: Pantoprazole 40 mg EC Tab PO SCH (05:54)
[2017-05-21] MEDS: Proshield Plus GEL TOP SCH ×3 (05:55→21:25)
[2017-05-21 07:27] LABS: HEMOGLOBIN 10.4 g/dL (12.0-18.0); MEAN CELL VOLUME 99.1 fl (80.0-94.0); MEAN CORPUSCULAR HEMOGLOBIN 32.9 pg (27.0-31.0); MEAN CORPUSCULAR HGB CONC 33.2 g/dL (33.0-37.0); RBC 3.16 Mil/uL (4.40-5.90); RED CELL DISTRIBUTION WIDTH 13.9 % (11.5-14.5); WHITE BLOOD COUNT 10.9 K/uL (4.8-10.8)
[2017-05-21] MEDS: Albuterol-Ipratrop 3 mg / 0.5 (3 ml) UD IH SCH ×4 (07:34→19:13)
[2017-05-21 07:45] LABS: ALB/GLOB RATIO 1.1 (1.0-2.1); ALBUMIN 3.2 g/dL (3.5-5.0); ALT/SGPT 113 U/L (21-72); AST/SGOT 54 U/L (17-59); BLOOD UREA NITROGEN 24 mg/dl (9-20); CALCIUM 8.4 mg/dL (8.4-10.2); GFR AFRICAN-AMERICAN > 60; GFR NON-AFRICAN AMERICAN > 60
--- NOTE | 2017-05-21 08:41 | CP.PCM.CON ---
Past Patient History - Past Medical History & Family History Past Medical History?: Yes - Past Social History Smoking Status: Former Smoker Chewing Tobacco Use: No Cigar Use: No Alcohol: Other (drinks wine daily) Drugs: Denies Home Situation {Lives}: With Family - CARDIAC Hx Circulatory Problems: Yes (BLE Venous Stasis) Hx Hypercholesterolemia: Yes Hx Hypertension: Yes Hx Peripheral Edema: Yes Other/Comment: Aortic valve replacement (TAVR). - PULMONARY Hx Bronchitis: Yes Hx Chronic Obstructive Pulmonary Disease (COPD): Yes Other/Comment: Ex smoker, quit 2 years ago - NEUROLOGICAL Hx Neurological Disorder: No - HEENT Hx HEENT Problems: No - RENAL Hx Chronic Kidney Disease: No - ENDOCRINE/METABOLIC Hx Endocrine Disorders: No - HEMATOLOGICAL/ONCOLOGICAL Hx Blood Disorders: No - INTEGUMENTARY Hx Cellulitis: Yes - MUSCULOSKELETAL/RHEUMATOLOGICAL Hx Back Pain: Yes Hx Falls: No Hx Gout: Yes Hx Spinal Stenosis: Yes (S/P Laminectomy L3-L5 05/15/2017) - GASTROINTESTINAL Hx Gastrointestinal Disorders: No - GENITOURINARY/GYNECOLOGICAL Hx Genitourinary Disorders: No - PSYCHIATRIC Hx Substance Use: No - SURGICAL HISTORY Hx Surgeries: Yes Hx Valve Replacement: Yes (TAVR) Other/Comment: Laminectomy L3-L5 05/15/2017 - ANESTHESIA Hx Anesthesia: Yes Hx Anesthesia Reactions: No Hx Malignant Hyperthermia: No Has any member of the family had a problem w/ anesthesia?: No Meds Allergies/Adverse Reactions: Allergies Allergy/AdvReac Type Severity Reaction Status Date / Time No Known Allergies Allergy Verified 05/18/17 17:15 - Medications Medications: Current Medications Albuterol Sulfate (Albuterol 0.083% Inhal Olivia (2.5 Mg/3 Ml) Ud) 2.5 mg INH RQ4 PRN PRN Reason: Shortness of Breath Albuterol/Ipratropium (Duoneb 3 Mg/0.5 Mg (3 Ml) Ud) 3 ml IH RQID [facility] Last Admin: 05/21/17 07:34 Dose: 3 ml Allopurinol (Zyloprim) 300 mg PO DAILY [facility] Last Admin: 05/20/17 08:22 Dose: 300 mg Aspirin (Ecotrin) 81 mg PO DAILY [facility] Last Admin: 05/20/17 08:22 Dose: 81 mg Atorvastatin Calcium (Lipitor) 20 mg PO HS [facility] Last Admin: 05/20/17 21:45 Dose: 20 mg Bisacodyl (Dulcolax) 10 mg [place] DAILY PRN PRN Reason: Constipation Last Admin: 05/19/17 04:05 Dose: 10 mg Dimethicone (Proshield Plus Skin Protectant) 1 applic TOP Q8 [facility] Last Admin: 05/21/17 05:55 Dose: 1 applic Docusate Sodium (Colace) 100 mg PO TID [facility] Last Admin: 05/20/17 17:12 Dose: 100 mg Enalapril Maleate (Vasotec) 10 mg PO DAILY [facility] Last Admin: 05/20/17 08:22 Dose: 10 mg Enoxaparin Sodium (Lovenox) 40 mg SC DAILY [facility] PRN Reason: Protocol Last Admin: 05/20/17 08:23 Dose: 40 mg Guaifenesin/Dextromethorphan (Mucinex-Dm 600-30 Mg) 1 tab PO Q12 [facility] Last Admin: 05/20/17 21:45 Dose: 1 tab Lactic Acid (Lac-Hydrin 12% Lotion (225 G)) 1 applic TOP 0600 [facility] Last Admin: 05/21/17 05:54 Dose: 1 applic Magnesium Hydroxide (Milk Of Magnesia) 30 ml PO DAILY PRN PRN Reason: Constipation Last Admin: 05/20/17 08:24 Dose: 30 ml Metoprolol Tartrate (Lopressor) 25 mg PO Q12 [facility] Last Admin: 05/20/17 21:49 Dose: 25 mg Ondansetron HCl (Zofran Inj) 4 mg IVP Q6H PRN PRN Reason: Nausea/Vomiting Pantoprazole Sodium (Protonix Ec Tab) 40 mg PO 0600 [facility] Last Admin: 05/21/17 05:54 Dose: 40 mg Sennosides (Senokot Tab) 17.2 mg PO HS [facility] Last Admin: 05/20/17 21:45 Dose: 17.2 mg Tramadol HCl (Ultram) 50 mg PO Q4 PRN PRN Reason: pain 4-01/06 Last Admin: 05/20/17 21:46 Dose: 50 mg Results - Vital Signs Recent Vital Signs: Last Vital Signs Temp 97.9 F 05/21/17 08:01 Pulse 79 05/21/17 08:01 Resp 18 05/21/17 08:01 BP 124/64 05/21/17 08:01 Pulse Ox 95 05/21/17 08:01 - Labs Result Diagrams: 05/21/17 06:00 05/21/17 06:00 Labs: Laboratory Results - last 24 hr 05/21/17 05/21/17 06:00 06:00 WBC 10.9 H RBC 3.16 L Hgb 10.4 L Hct 31.4 L MCV 99.1 H MCH 32.9 H MCHC 33.2 RDW 13.9 Plt Count 181 Sodium 139 Potassium 3.9 Chloride 99 Carbon Dioxide 29 Anion Gap 15 BUN 24 H Creatinine 0.8 Est GFR ( Amer) > 60 Est GFR (Non-Af Amer) > 60 Random Glucose 150 H Calcium 8.4 Total Bilirubin 0.7 AST 54 ALT 113 H Alkaline Phosphatase 99 Total Protein 6.2 L Albumin 3.2 L Globulin 3.0 Albumin/Globulin Ratio 1.1
--- NOTE | 2017-05-21 08:43 | CP.PCM.PN ---
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 Admits to having several bowel movements since yesterday's visit. States he feels better today and less bloated. Is still passing flatus. Today denies F/C/N/V. Objective - Vital Signs/Intake and Output Vital Signs (last 24 hours): Temp Pulse Resp BP Pulse Ox 97.9 F 79 18 124/64 95 05/21/17 08:01 05/21/17 08:01 05/21/17 08:01 05/21/17 08:01 05/21/17 08:01 - Medications Medications: Current Medications Albuterol Sulfate (Albuterol 0.083% Inhal Olivia (2.5 Mg/3 Ml) Ud) 2.5 mg INH RQ4 PRN PRN Reason: Shortness of Breath Albuterol/Ipratropium (Duoneb 3 Mg/0.5 Mg (3 Ml) Ud) 3 ml IH RQID [facility] Last Admin: 05/21/17 07:34 Dose: 3 ml Allopurinol (Zyloprim) 300 mg PO DAILY [facility] Last Admin: 05/20/17 08:22 Dose: 300 mg Aspirin (Ecotrin) 81 mg PO DAILY [facility] Last Admin: 05/20/17 08:22 Dose: 81 mg Atorvastatin Calcium (Lipitor) 20 mg PO HS [facility] Last Admin: 05/20/17 21:45 Dose: 20 mg Bisacodyl (Dulcolax) 10 mg [place] DAILY PRN PRN Reason: Constipation Last Admin: 05/19/17 04:05 Dose: 10 mg Dimethicone (Proshield Plus Skin Protectant) 1 applic TOP Q8 [facility] Last Admin: 05/21/17 05:55 Dose: 1 applic Docusate Sodium (Colace) 100 mg PO TID [facility] Last Admin: 05/20/17 17:12 Dose: 100 mg Enalapril Maleate (Vasotec) 10 mg PO DAILY [facility] Last Admin: 05/20/17 08:22 Dose: 10 mg Enoxaparin Sodium (Lovenox) 40 mg SC DAILY [facility] PRN Reason: Protocol Last Admin: 05/20/17 08:23 Dose: 40 mg Guaifenesin/Dextromethorphan (Mucinex-Dm 600-30 Mg) 1 tab PO Q12 [facility] Last Admin: 05/20/17 21:45 Dose: 1 tab Lactic Acid (Lac-Hydrin 12% Lotion (225 G)) 1 applic TOP 0600 [facility] Last Admin: 05/21/17 05:54 Dose: 1 applic Magnesium Hydroxide (Milk Of Magnesia) 30 ml PO DAILY PRN PRN Reason: Constipation Last Admin: 05/20/17 08:24 Dose: 30 ml Metoprolol Tartrate (Lopressor) 25 mg PO Q12 [facility] Last Admin: 05/20/17 21:49 Dose: 25 mg Ondansetron HCl (Zofran Inj) 4 mg IVP Q6H PRN PRN Reason: Nausea/Vomiting Pantoprazole Sodium (Protonix Ec Tab) 40 mg PO 0600 [facility] Last Admin: 05/21/17 05:54 Dose: 40 mg Sennosides (Senokot Tab) 17.2 mg PO HS [facility] Last Admin: 05/20/17 21:45 Dose: 17.2 mg Tramadol HCl (Ultram) 50 mg PO Q4 PRN PRN Reason: pain 4-1010 Last Admin: 05/20/17 21:46 Dose: 50 mg - Labs Labs: 05/21/17 06:00 05/21/17 06:00 - Constitutional Appears: Well, Non-toxic, No Acute Distress - GI/Abdominal Exam GI & Abdominal Exam: Distended. absent: Tenderness, Hernia, Mass, Rebound Additional comments: softer today - Neurological Exam Neurological Exam: Alert, Awake, Oriented x3 - Psychiatric Exam Psychiatric exam: Normal Affect, Normal Mood Assessment and Plan - Assessment and Plan (Free Text) Assessment: 87M with likely post-operative ileus Plan: -pt passing flatus and having BMs -continue dulcolax suppositories -continue to encourage ambulation and PT -minimize narcotics -will continue to follow closely -d/w Dr Mg
[2017-05-21] MEDS: Enoxaparin 40 mg Syringe SC SCH (09:11)
[2017-05-21] MEDS: guaiFENesin-DM 600-30 mg ER Tab PO SCH ×2 (09:13→21:18)
--- NOTE | 2017-05-21 11:19 | CP.PCM.PN ---
Subjective - Date & Time of Evaluation Date of Evaluation: 05/21/17 Time of Evaluation: 09:30 - Subjective Subjective: NO CHEST PAIN OR SOB Objective - Vital Signs/Intake and Output Vital Signs (last 24 hours): Temp Pulse Resp BP Pulse Ox 97.9 F 79 18 124/64 95 05/21/17 08:01 05/21/17 09:12 05/21/17 08:01 05/21/17 09:12 05/21/17 08:01 - Medications Medications: Current Medications Albuterol Sulfate (Albuterol 0.083% Inhal Olivia (2.5 Mg/3 Ml) Ud) 2.5 mg INH RQ4 PRN PRN Reason: Shortness of Breath Albuterol/Ipratropium (Duoneb 3 Mg/0.5 Mg (3 Ml) Ud) 3 ml IH RQID [facility] Last Admin: 05/21/17 07:34 Dose: 3 ml Allopurinol (Zyloprim) 300 mg PO DAILY [facility] Last Admin: 05/21/17 09:13 Dose: 300 mg Aspirin (Ecotrin) 81 mg PO DAILY [facility] Last Admin: 05/21/17 09:12 Dose: 81 mg Atorvastatin Calcium (Lipitor) 20 mg PO HS [facility] Last Admin: 05/20/17 21:45 Dose: 20 mg Bisacodyl (Dulcolax) 10 mg [place] DAILY PRN PRN Reason: Constipation Last Admin: 05/19/17 04:05 Dose: 10 mg Dimethicone (Proshield Plus Skin Protectant) 1 applic TOP Q8 [facility] Last Admin: 05/21/17 05:55 Dose: 1 applic Docusate Sodium (Colace) 100 mg PO TID [facility] Last Admin: 05/21/17 09:10 Dose: 100 mg Enalapril Maleate (Vasotec) 10 mg PO DAILY [facility] Last Admin: 05/21/17 09:13 Dose: 10 mg Enoxaparin Sodium (Lovenox) 40 mg SC DAILY [facility] PRN Reason: Protocol Last Admin: 05/21/17 09:11 Dose: 40 mg Guaifenesin/Dextromethorphan (Mucinex-Dm 600-30 Mg) 1 tab PO Q12 [facility] Last Admin: 05/21/17 09:13 Dose: 1 tab Lactic Acid (Lac-Hydrin 12% Lotion (225 G)) 1 applic TOP 0600 [facility] Last Admin: 05/21/17 05:54 Dose: 1 applic Magnesium Hydroxide (Milk Of Magnesia) 30 ml PO DAILY PRN PRN Reason: Constipation Last Admin: 05/20/17 08:24 Dose: 30 ml Metoprolol Tartrate (Lopressor) 25 mg PO Q12 [facility] Last Admin: 05/21/17 09:12 Dose: 25 mg Ondansetron HCl (Zofran Inj) 4 mg IVP Q6H PRN PRN Reason: Nausea/Vomiting Pantoprazole Sodium (Protonix Ec Tab) 40 mg PO 0600 [facility] Last Admin: 05/21/17 05:54 Dose: 40 mg Sennosides (Senokot Tab) 17.2 mg PO HS [facility] Last Admin: 05/20/17 21:45 Dose: 17.2 mg Tramadol HCl (Ultram) 50 mg PO Q4 PRN PRN Reason: pain 4-10/10 Last Admin: 05/21/17 09:17 Dose: 50 mg - Labs Labs: 05/21/17 06:00 05/21/17 06:00 - Respiratory Exam Respiratory Exam: Clear to Ausculation Bilateral - Cardiovascular Exam Cardiovascular Exam: REGULAR RHYTHM, +S1, +S2 - Extremities Exam Additional comments: NO SIGNIFICANT LOWER EXTREMITY EDEMA Assessment and Plan - Assessment and Plan (Free Text) Assessment: S/P LAMINECTOMY FOR SEVERE LUMBAR STENOSIS RECENT TAVR FOR HYPERTENSION HYPERLIPIDEMIA Plan: CONTINUE METOPROLOL, ENALAPRIL, ASPIRIN, LOVENOX, ATORVASTATIN CONTINUE ACUTE REHAB
--- NOTE | 2017-05-21 16:11 | CP.PCM.PN ---
Subjective - Date & Time of Evaluation Date of Evaluation: 05/21/17 Time of Evaluation: 16:10 - Subjective Subjective: The patient is seated in a bedside chair conversing with family members. His mood appears good and he offers no specific complaints at this time. He relates that his back pain has improved significantly. Dependent edema of his lower extremities has improved dramatically. He does still have a congested cough with difficulty expectorating. Occasional rhonchi are heard on auscultation but there is no audible wheezing. Breath sounds are significantly diminished bilaterally. Heart sounds are very distant and the rhythm is regular. Continue current medical regimen and physical therapy. Objective - Vital Signs/Intake and Output Vital Signs (last 24 hours): Temp Pulse Resp BP Pulse Ox 97.9 F 79 18 124/64 95 05/21/17 08:01 05/21/17 09:12 05/21/17 08:01 05/21/17 09:12 05/21/17 08:01 - Medications Medications: Current Medications Albuterol Sulfate (Albuterol 0.083% Inhal Olivia (2.5 Mg/3 Ml) Ud) 2.5 mg INH RQ4 PRN PRN Reason: Shortness of Breath Albuterol/Ipratropium (Duoneb 3 Mg/0.5 Mg (3 Ml) Ud) 3 ml IH RQID [facility] Last Admin: 05/21/17 12:58 Dose: 3 ml Allopurinol (Zyloprim) 300 mg PO DAILY [facility] Last Admin: 05/21/17 09:13 Dose: 300 mg Aspirin (Ecotrin) 81 mg PO DAILY [facility] Last Admin: 05/21/17 09:12 Dose: 81 mg Atorvastatin Calcium (Lipitor) 20 mg PO HS [facility] Last Admin: 05/20/17 21:45 Dose: 20 mg Bisacodyl (Dulcolax) 10 mg [place] DAILY PRN PRN Reason: Constipation Last Admin: 05/19/17 04:05 Dose: 10 mg Dimethicone (Proshield Plus Skin Protectant) 1 applic TOP Q8 [facility] Last Admin: 05/21/17 13:05 Dose: 1 applic Docusate Sodium (Colace) 100 mg PO TID [facility] Last Admin: 05/21/17 12:55 Dose: 100 mg Enalapril Maleate (Vasotec) 10 mg PO DAILY [facility] Last Admin: 05/21/17 09:13 Dose: 10 mg Enoxaparin Sodium (Lovenox) 40 mg SC DAILY [facility] PRN Reason: Protocol Last Admin: 05/21/17 09:11 Dose: 40 mg Guaifenesin/Dextromethorphan (Mucinex-Dm 600-30 Mg) 1 tab PO Q12 [facility] Last Admin: 05/21/17 09:13 Dose: 1 tab Lactic Acid (Lac-Hydrin 12% Lotion (225 G)) 1 applic TOP 0600 [facility] Last Admin: 05/21/17 05:54 Dose: 1 applic Magnesium Hydroxide (Milk Of Magnesia) 30 ml PO DAILY PRN PRN Reason: Constipation Last Admin: 05/20/17 08:24 Dose: 30 ml Metoprolol Tartrate (Lopressor) 25 mg PO Q12 [facility] Last Admin: 05/21/17 09:12 Dose: 25 mg Ondansetron HCl (Zofran Inj) 4 mg IVP Q6H PRN PRN Reason: Nausea/Vomiting Pantoprazole Sodium (Protonix Ec Tab) 40 mg PO 0600 [facility] Last Admin: 05/21/17 05:54 Dose: 40 mg Sennosides (Senokot Tab) 17.2 mg PO HS [facility] Last Admin: 05/20/17 21:45 Dose: 17.2 mg Tramadol HCl (Ultram) 50 mg PO Q4 PRN PRN Reason: pain 4-10/10 Last Admin: 05/21/17 09:17 Dose: 50 mg - Labs Labs: 05/21/17 06:00 05/21/17 06:00 Assessment and Plan (1) 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
--- NOTE | 2017-05-21 18:08 | CP.PCM.PN ---
Subjective - Date & Time of Evaluation Date of Evaluation: 05/21/17 Time of Evaluation: 18:07 - Subjective Subjective: Patient seen, mag citrate still showing benefit his pain is tolerable with lower medication did a flight of steps and ambulated 200' continue current care making great progress Objective - Vital Signs/Intake and Output Vital Signs (last 24 hours): Temp Pulse Resp BP Pulse Ox 97.9 F 79 18 124/64 95 05/21/17 08:01 05/21/17 09:12 05/21/17 08:01 05/21/17 09:12 05/21/17 08:01 - Medications Medications: Current Medications Albuterol Sulfate (Albuterol 0.083% Inhal Olivia (2.5 Mg/3 Ml) Ud) 2.5 mg INH RQ4 PRN PRN Reason: Shortness of Breath Albuterol/Ipratropium (Duoneb 3 Mg/0.5 Mg (3 Ml) Ud) 3 ml IH RQID [facility] Last Admin: 05/21/17 17:26 Dose: 3 ml Allopurinol (Zyloprim) 300 mg PO DAILY [facility] Last Admin: 05/21/17 09:13 Dose: 300 mg Aspirin (Ecotrin) 81 mg PO DAILY [facility] Last Admin: 05/21/17 09:12 Dose: 81 mg Atorvastatin Calcium (Lipitor) 20 mg PO HS [facility] Last Admin: 05/20/17 21:45 Dose: 20 mg Bisacodyl (Dulcolax) 10 mg [place] DAILY PRN PRN Reason: Constipation Last Admin: 05/19/17 04:05 Dose: 10 mg Dimethicone (Proshield Plus Skin Protectant) 1 applic TOP Q8 [facility] Last Admin: 05/21/17 13:05 Dose: 1 applic Docusate Sodium (Colace) 100 mg PO TID [facility] Last Admin: 05/21/17 17:13 Dose: 100 mg Enalapril Maleate (Vasotec) 10 mg PO DAILY [facility] Last Admin: 05/21/17 09:13 Dose: 10 mg Enoxaparin Sodium (Lovenox) 40 mg SC DAILY [facility] PRN Reason: Protocol Last Admin: 05/21/17 09:11 Dose: 40 mg Guaifenesin/Dextromethorphan (Mucinex-Dm 600-30 Mg) 1 tab PO Q12 [facility] Last Admin: 05/21/17 09:13 Dose: 1 tab Lactic Acid (Lac-Hydrin 12% Lotion (225 G)) 1 applic TOP 0600 [facility] Last Admin: 05/21/17 05:54 Dose: 1 applic Magnesium Hydroxide (Milk Of Magnesia) 30 ml PO DAILY PRN PRN Reason: Constipation Last Admin: 05/20/17 08:24 Dose: 30 ml Metoprolol Tartrate (Lopressor) 25 mg PO Q12 [facility] Last Admin: 05/21/17 09:12 Dose: 25 mg Ondansetron HCl (Zofran Inj) 4 mg IVP Q6H PRN PRN Reason: Nausea/Vomiting Pantoprazole Sodium (Protonix Ec Tab) 40 mg PO 0600 [facility] Last Admin: 05/21/17 05:54 Dose: 40 mg Sennosides (Senokot Tab) 17.2 mg PO HS [facility] Last Admin: 05/20/17 21:45 Dose: 17.2 mg Tramadol HCl (Ultram) 50 mg PO Q4 PRN PRN Reason: pain 4-10/10 Last Admin: 05/21/17 09:17 Dose: 50 mg - Labs Labs: 05/21/17 06:00 05/21/17 06:00
--- NOTE | 2017-05-21 21:32 | CP.PCM.PN ---
Subjective - Date & Time of Evaluation Date of Evaluation: 05/21/17 Time of Evaluation: 22:22 - Subjective Subjective: Above noted Objective - Vital Signs/Intake and Output Vital Signs (last 24 hours): Temp Pulse Resp BP Pulse Ox 97.5 F L 95 H 20 128/60 98 05/21/17 20:00 05/21/17 21:17 05/21/17 20:00 05/21/17 21:17 05/21/17 20:00 - Medications Medications: Current Medications Albuterol Sulfate (Albuterol 0.083% Inhal Olivia (2.5 Mg/3 Ml) Ud) 2.5 mg INH RQ4 PRN PRN Reason: Shortness of Breath Albuterol/Ipratropium (Duoneb 3 Mg/0.5 Mg (3 Ml) Ud) 3 ml IH RQID [facility] Last Admin: 05/21/17 19:13 Dose: 3 ml Allopurinol (Zyloprim) 300 mg PO DAILY [facility] Last Admin: 05/21/17 09:13 Dose: 300 mg Aspirin (Ecotrin) 81 mg PO DAILY [facility] Last Admin: 05/21/17 09:12 Dose: 81 mg Atorvastatin Calcium (Lipitor) 20 mg PO HS [facility] Last Admin: 05/21/17 21:18 Dose: 20 mg Bisacodyl (Dulcolax) 10 mg [place] DAILY PRN PRN Reason: Constipation Last Admin: 05/19/17 04:05 Dose: 10 mg Dimethicone (Proshield Plus Skin Protectant) 1 applic TOP Q8 [facility] Last Admin: 05/21/17 21:25 Dose: 1 applic Docusate Sodium (Colace) 100 mg PO TID [facility] Last Admin: 05/21/17 17:13 Dose: 100 mg Enalapril Maleate (Vasotec) 10 mg PO DAILY [facility] Last Admin: 05/21/17 09:13 Dose: 10 mg Enoxaparin Sodium (Lovenox) 40 mg SC DAILY [facility] PRN Reason: Protocol Last Admin: 05/21/17 09:11 Dose: 40 mg Guaifenesin/Dextromethorphan (Mucinex-Dm 600-30 Mg) 1 tab PO Q12 [facility] Last Admin: 05/21/17 21:18 Dose: 1 tab Lactic Acid (Lac-Hydrin 12% Lotion (225 G)) 1 applic TOP 0600 [facility] Last Admin: 05/21/17 05:54 Dose: 1 applic Magnesium Hydroxide (Milk Of Magnesia) 30 ml PO DAILY PRN PRN Reason: Constipation Last Admin: 05/20/17 08:24 Dose: 30 ml Metoprolol Tartrate (Lopressor) 25 mg PO Q12 [facility] Last Admin: 05/21/17 21:17 Dose: 25 mg Ondansetron HCl (Zofran Inj) 4 mg IVP Q6H PRN PRN Reason: Nausea/Vomiting Pantoprazole Sodium (Protonix Ec Tab) 40 mg PO 0600 [facility] Last Admin: 05/21/17 05:54 Dose: 40 mg Sennosides (Senokot Tab) 17.2 mg PO HS [facility] Last Admin: 05/21/17 21:25 Dose: Not Given Tramadol HCl (Ultram) 50 mg PO Q4 PRN PRN Reason: pain 4-1010 Last Admin: 05/21/17 09:17 Dose: 50 mg - Labs Labs: 05/21/17 06:00 05/21/17 06:00 - Respiratory Exam Respiratory Exam: NORMAL BREATHING PATTERN - Cardiovascular Exam Cardiovascular Exam: REGULAR RHYTHM - GI/Abdominal Exam GI & Abdominal Exam: Normal Bowel Sounds Assessment and Plan - Assessment and Plan (Free Text) Assessment: S/P Low back surgery POD#6 (Severe Spinal Stenosis) PT Incentive spirometry Pain medication Physiatry Post operative illeus improving Meds ordered OOB D/C opiods COPD Smoker Pulmonary HTN Prediabetes S/P TAVR Cardiology
[2017-05-22] MEDS: Proshield Plus GEL TOP SCH ×3 (06:01→21:45)
[2017-05-22] MEDS: Pantoprazole 40 mg EC Tab PO SCH (06:02)
[2017-05-22] MEDS: Albuterol-Ipratrop 3 mg / 0.5 (3 ml) UD IH SCH ×4 (07:16→19:25)
--- NOTE | 2017-05-22 08:29 | CP.PCM.PN ---
Subjective - Date & Time of Evaluation Date of Evaluation: 05/22/17 Time of Evaluation: 08:27 - Subjective Subjective: General Surgery: Dr Mg Pt S&E. Reports he continues to feel better. Continues to have bowel movements. States he has pain in flanks, back, and lower legs but this has been consistent since surgery and is well controlled with his medication regimen. Pt states he is unsure of how protuberant his abdomen was prior, but he does not feel as bloated as he did previously. Still states he does not have much appetite. Objective - Vital Signs/Intake and Output Vital Signs (last 24 hours): Temp Pulse Resp BP Pulse Ox 97.5 F L 95 H 20 128/60 98 05/21/17 20:00 05/21/17 21:17 05/21/17 20:00 05/21/17 21:17 05/21/17 20:00 - Medications Medications: Current Medications Albuterol Sulfate (Albuterol 0.083% Inhal Olivia (2.5 Mg/3 Ml) Ud) 2.5 mg INH RQ4 PRN PRN Reason: Shortness of Breath Albuterol/Ipratropium (Duoneb 3 Mg/0.5 Mg (3 Ml) Ud) 3 ml IH RQID [facility] Last Admin: 05/22/17 07:16 Dose: 3 ml Allopurinol (Zyloprim) 300 mg PO DAILY [facility] Last Admin: 05/21/17 09:13 Dose: 300 mg Aspirin (Ecotrin) 81 mg PO DAILY [facility] Last Admin: 05/21/17 09:12 Dose: 81 mg Atorvastatin Calcium (Lipitor) 20 mg PO HS [facility] Last Admin: 05/21/17 21:18 Dose: 20 mg Bisacodyl (Dulcolax) 10 mg [place] DAILY PRN PRN Reason: Constipation Last Admin: 05/19/17 04:05 Dose: 10 mg Dimethicone (Proshield Plus Skin Protectant) 1 applic TOP Q8 [facility] Last Admin: 05/22/17 06:01 Dose: 1 applic Docusate Sodium (Colace) 100 mg PO TID [facility] Last Admin: 05/21/17 17:13 Dose: 100 mg Enalapril Maleate (Vasotec) 10 mg PO DAILY [facility] Last Admin: 05/21/17 09:13 Dose: 10 mg Enoxaparin Sodium (Lovenox) 40 mg SC DAILY [facility] PRN Reason: Protocol Last Admin: 05/21/17 09:11 Dose: 40 mg Guaifenesin/Dextromethorphan (Mucinex-Dm 600-30 Mg) 1 tab PO Q12 [facility] Last Admin: 05/21/17 21:18 Dose: 1 tab Lactic Acid (Lac-Hydrin 12% Lotion (225 G)) 1 applic TOP 0600 [facility] Last Admin: 05/22/17 06:01 Dose: 1 applic Magnesium Hydroxide (Milk Of Magnesia) 30 ml PO DAILY PRN PRN Reason: Constipation Last Admin: 05/20/17 08:24 Dose: 30 ml Metoprolol Tartrate (Lopressor) 25 mg PO Q12 [facility] Last Admin: 05/21/17 21:17 Dose: 25 mg Ondansetron HCl (Zofran Inj) 4 mg IVP Q6H PRN PRN Reason: Nausea/Vomiting Pantoprazole Sodium (Protonix Ec Tab) 40 mg PO 0600 [facility] Last Admin: 05/22/17 06:02 Dose: 40 mg Sennosides (Senokot Tab) 17.2 mg PO HS [facility] Last Admin: 05/21/17 21:25 Dose: Not Given Tramadol HCl (Ultram) 50 mg PO Q4 PRN PRN Reason: pain 4-10/10 Last Admin: 05/21/17 21:36 Dose: 50 mg - Labs Labs: 05/21/17 06:00 05/21/17 06:00 - Constitutional Appears: Non-toxic, No Acute Distress - ENT Exam ENT Exam: Mucous Membranes Moist - Respiratory Exam Respiratory Exam: absent: Accessory Muscle Use, Respiratory Distress - Cardiovascular Exam Cardiovascular Exam: absent: Tachycardia - GI/Abdominal Exam GI & Abdominal Exam: Distended, Firm, Soft, Hypoactive Bowel Sounds. absent: Guarding, Rigid, Tenderness, Mass - Neurological Exam Neurological Exam: Alert, Awake, Oriented x3 - Psychiatric Exam Psychiatric exam: Normal Affect, Normal Mood Assessment and Plan - Assessment and Plan (Free Text) Assessment: 87M with post-op ileus; improving Plan: continue bowel regimen as prescribed encourage PT and ambulation monitor electrolytes d/w Dr Saurav Garibay, PGY3
[2017-05-22] MEDS: Enoxaparin 40 mg Syringe SC SCH (09:12)
[2017-05-22] MEDS: guaiFENesin-DM 600-30 mg ER Tab PO SCH ×2 (09:12→20:15)
--- NOTE | 2017-05-22 17:36 | CP.PCM.PN ---
Subjective - Date & Time of Evaluation Date of Evaluation: 05/22/17 Time of Evaluation: 22:22 - Subjective Subjective: Improved Objective - Vital Signs/Intake and Output Vital Signs (last 24 hours): Temp Pulse Resp BP Pulse Ox 97 F L 74 22 120/58 L 97 05/22/17 10:00 05/22/17 14:57 05/22/17 10:00 05/22/17 10:00 05/22/17 14:57 - Medications Medications: Current Medications Albuterol Sulfate (Albuterol 0.083% Inhal Olivia (2.5 Mg/3 Ml) Ud) 2.5 mg INH RQ4 PRN PRN Reason: Shortness of Breath Albuterol/Ipratropium (Duoneb 3 Mg/0.5 Mg (3 Ml) Ud) 3 ml IH RQID [facility] Last Admin: 05/22/17 15:40 Dose: 3 ml Allopurinol (Zyloprim) 300 mg PO DAILY [facility] Last Admin: 05/22/17 09:12 Dose: 300 mg Aspirin (Ecotrin) 81 mg PO DAILY [facility] Last Admin: 05/22/17 09:12 Dose: 81 mg Atorvastatin Calcium (Lipitor) 20 mg PO HS [facility] Last Admin: 05/21/17 21:18 Dose: 20 mg Bisacodyl (Dulcolax) 10 mg [place] DAILY PRN PRN Reason: Constipation Last Admin: 05/19/17 04:05 Dose: 10 mg Dimethicone (Proshield Plus Skin Protectant) 1 applic TOP Q8 [facility] Last Admin: 05/22/17 13:40 Dose: 1 applic Docusate Sodium (Colace) 100 mg PO TID [facility] Last Admin: 05/22/17 16:32 Dose: 100 mg Enalapril Maleate (Vasotec) 10 mg PO DAILY [facility] Last Admin: 05/22/17 09:12 Dose: 10 mg Enoxaparin Sodium (Lovenox) 40 mg SC DAILY [facility] PRN Reason: Protocol Last Admin: 05/22/17 09:12 Dose: 40 mg Guaifenesin/Dextromethorphan (Mucinex-Dm 600-30 Mg) 1 tab PO Q12 [facility] Last Admin: 05/22/17 09:12 Dose: 1 tab Lactic Acid (Lac-Hydrin 12% Lotion (225 G)) 1 applic TOP 0600 [facility] Last Admin: 05/22/17 06:01 Dose: 1 applic Magnesium Hydroxide (Milk Of Magnesia) 30 ml PO DAILY PRN PRN Reason: Constipation Last Admin: 05/20/17 08:24 Dose: 30 ml Metoprolol Tartrate (Lopressor) 25 mg PO Q12 [facility] Last Admin: 05/22/17 09:12 Dose: 25 mg Ondansetron HCl (Zofran Inj) 4 mg IVP Q6H PRN PRN Reason: Nausea/Vomiting Pantoprazole Sodium (Protonix Ec Tab) 40 mg PO 0600 [facility] Last Admin: 05/22/17 06:02 Dose: 40 mg Sennosides (Senokot Tab) 17.2 mg PO HS [facility] Last Admin: 05/21/17 21:25 Dose: Not Given Tramadol HCl (Ultram) 50 mg PO Q4 PRN PRN Reason: pain 4-1010 Last Admin: 05/22/17 09:10 Dose: 50 mg - Labs Labs: 05/21/17 06:00 05/21/17 06:00 - Respiratory Exam Respiratory Exam: NORMAL BREATHING PATTERN - Cardiovascular Exam Cardiovascular Exam: REGULAR RHYTHM - GI/Abdominal Exam GI & Abdominal Exam: Normal Bowel Sounds Assessment and Plan - Assessment and Plan (Free Text) Assessment: S/P Low back surgery POD#7 (Severe Spinal Stenosis) PT Incentive spirometry Pain medication Physiatry Post operative illeus improving Meds ordered OOB PT D/C opiods COPD Smoker Pulmonary HTN Prediabetes S/P TAVR Cardiology
[2017-05-23] MEDS: Pantoprazole 40 mg EC Tab PO SCH (05:49)
[2017-05-23] MEDS: Proshield Plus GEL TOP SCH ×3 (05:49→21:35)
[2017-05-23] MEDS: Albuterol-Ipratrop 3 mg / 0.5 (3 ml) UD IH SCH ×4 (07:18→19:28)
[2017-05-23] MEDS: Enoxaparin 40 mg Syringe SC SCH (08:25)
[2017-05-23] MEDS: guaiFENesin-DM 600-30 mg ER Tab PO SCH (10:06)
--- NOTE | 2017-05-23 12:57 | CP.PCM.PN ---
Subjective - Date & Time of Evaluation Date of Evaluation: 05/23/17 Time of Evaluation: 12:53 - Subjective Subjective: Seems to be doing well on the current regimen. Still has some congested cough and cannot expectorate. He is able to participate with physical therapy w/o problems. Coached regarding cough, but unable to expectorate. Appears to swallow sputum. Breath sounds are diminished bilaterally w/o audible wheezing. Occasional rhonchi present with coughing. No bronchial breath sounds. Trace ankle edema bilaterally. No cyanosis. Changed Mucinex from DM to plain. Other medications remain unchanged. Objective - Vital Signs/Intake and Output Vital Signs (last 24 hours): Temp Pulse Resp BP Pulse Ox 97.3 F L 94 H 22 135/77 95 05/23/17 08:00 05/23/17 08:26 05/23/17 08:00 05/23/17 08:26 05/23/17 08:00 - Medications Medications: Current Medications Albuterol Sulfate (Albuterol 0.083% Inhal Olivia (2.5 Mg/3 Ml) Ud) 2.5 mg INH RQ4 PRN PRN Reason: Shortness of Breath Albuterol/Ipratropium (Duoneb 3 Mg/0.5 Mg (3 Ml) Ud) 3 ml IH RQID [facility] Last Admin: 05/23/17 11:48 Dose: Not Given Allopurinol (Zyloprim) 300 mg PO DAILY [facility] Last Admin: 05/23/17 08:27 Dose: 300 mg Aspirin (Ecotrin) 81 mg PO DAILY [facility] Last Admin: 05/23/17 08:27 Dose: 81 mg Atorvastatin Calcium (Lipitor) 20 mg PO HS [facility] Last Admin: 05/22/17 21:45 Dose: 20 mg Bisacodyl (Dulcolax) 10 mg [place] DAILY PRN PRN Reason: Constipation Last Admin: 05/19/17 04:05 Dose: 10 mg Dimethicone (Proshield Plus Skin Protectant) 1 applic TOP Q8 [facility] Last Admin: 05/23/17 05:49 Dose: 1 applic Docusate Sodium (Colace) 100 mg PO TID [facility] Last Admin: 05/23/17 12:36 Dose: 100 mg Enalapril Maleate (Vasotec) 10 mg PO DAILY [facility] Last Admin: 05/23/17 08:27 Dose: 10 mg Enoxaparin Sodium (Lovenox) 40 mg SC DAILY [facility] PRN Reason: Protocol Last Admin: 05/23/17 08:25 Dose: 40 mg Guaifenesin (Mucinex [place]) 600 mg PO Q12 [facility] Lactic Acid (Lac-Hydrin 12% Lotion (225 G)) 1 applic TOP 0600 [facility] Last Admin: 05/23/17 05:49 Dose: 1 applic Magnesium Hydroxide (Milk Of Magnesia) 30 ml PO DAILY PRN PRN Reason: Constipation Last Admin: 05/20/17 08:24 Dose: 30 ml Metoprolol Tartrate (Lopressor) 25 mg PO Q12 [facility] Last Admin: 05/23/17 08:26 Dose: 25 mg Ondansetron HCl (Zofran Inj) 4 mg IVP Q6H PRN PRN Reason: Nausea/Vomiting Pantoprazole Sodium (Protonix Ec Tab) 40 mg PO 0600 [facility] Last Admin: 05/23/17 05:49 Dose: 40 mg Sennosides (Senokot Tab) 17.2 mg PO HS [facility] Last Admin: 05/22/17 21:45 Dose: 17.2 mg Tramadol HCl (Ultram) 50 mg PO Q4 PRN PRN Reason: pain 4-10/10 Last Admin: 05/23/17 08:33 Dose: 50 mg - Labs Labs: 05/21/17 06:00 05/21/17 06:00 Assessment and Plan (1) 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
[2017-05-23] MEDS: guaiFENesin 600 mg ER Tab PO SCH (21:35)
[2017-05-24] MEDS: Proshield Plus GEL TOP SCH ×3 (06:20→21:44)
[2017-05-24] MEDS: Pantoprazole 40 mg EC Tab PO SCH (06:20)
[2017-05-24 07:12] LABS: MEAN CELL VOLUME 97.9 fl (80.0-94.0); MEAN CORPUSCULAR HEMOGLOBIN 33.1 pg (27.0-31.0); MEAN CORPUSCULAR HGB CONC 33.8 g/dL (33.0-37.0); RBC 3.01 Mil/uL (4.40-5.90); RED CELL DISTRIBUTION WIDTH 14.3 % (11.5-14.5); WHITE BLOOD COUNT 8.1 K/uL (4.8-10.8)
[2017-05-24] MEDS: Albuterol-Ipratrop 3 mg / 0.5 (3 ml) UD IH SCH ×4 (07:17→19:03)
[2017-05-24 07:30] LABS: BLOOD UREA NITROGEN 20 mg/dl (9-20); CALCIUM 8.6 mg/dL (8.4-10.2); GFR AFRICAN-AMERICAN > 60; GFR NON-AFRICAN AMERICAN > 60
[2017-05-24] MEDS: Enoxaparin 40 mg Syringe SC SCH (08:44)
[2017-05-24] MEDS: guaiFENesin 600 mg ER Tab PO SCH ×2 (08:45→21:43)
--- NOTE | 2017-05-24 09:19 | CP.PCM.PN ---
Subjective - Date & Time of Evaluation Date of Evaluation: 05/24/17 Time of Evaluation: 05:40 - Subjective Subjective: General Surgery- Dr Mg patient seen and examined at bedside this AM. Admits to passing flatus and having small BM. Has minimal appetite. Denies fevers, chills, nausea, vomiting, diarrhea Objective - Vital Signs/Intake and Output Vital Signs (last 24 hours): Temp Pulse Resp BP Pulse Ox 97.5 F L 96 H 19 138/56 L 97 05/23/17 22:00 05/24/17 08:44 05/23/17 22:00 05/24/17 08:44 05/23/17 22:00 - Medications Medications: Current Medications Albuterol Sulfate (Albuterol 0.083% Inhal Olivia (2.5 Mg/3 Ml) Ud) 2.5 mg INH RQ4 PRN PRN Reason: Shortness of Breath Albuterol/Ipratropium (Duoneb 3 Mg/0.5 Mg (3 Ml) Ud) 3 ml IH RQID [facility] Last Admin: 05/24/17 07:17 Dose: 3 ml Allopurinol (Zyloprim) 300 mg PO DAILY [facility] Last Admin: 05/24/17 08:43 Dose: 300 mg Aspirin (Ecotrin) 81 mg PO DAILY [facility] Last Admin: 05/23/17 08:27 Dose: 81 mg Atorvastatin Calcium (Lipitor) 20 mg PO HS [facility] Last Admin: 05/23/17 21:34 Dose: 20 mg Bisacodyl (Dulcolax) 10 mg [place] DAILY PRN PRN Reason: Constipation Last Admin: 05/19/17 04:05 Dose: 10 mg Dimethicone (Proshield Plus Skin Protectant) 1 applic TOP Q8 [facility] Last Admin: 05/24/17 06:20 Dose: 1 applic Docusate Sodium (Colace) 100 mg PO TID [facility] Last Admin: 05/24/17 08:42 Dose: 100 mg Enalapril Maleate (Vasotec) 10 mg PO DAILY [facility] Last Admin: 05/24/17 08:45 Dose: 10 mg Enoxaparin Sodium (Lovenox) 40 mg SC DAILY [facility] PRN Reason: Protocol Last Admin: 05/24/17 08:44 Dose: 40 mg Guaifenesin (Mucinex La) 600 mg PO Q12 [facility] Last Admin: 05/24/17 08:45 Dose: 600 mg Lactic Acid (Lac-Hydrin 12% Lotion (225 G)) 1 applic TOP 0600 [facility] Last Admin: 05/24/17 06:20 Dose: 1 applic Magnesium Hydroxide (Milk Of Magnesia) 30 ml PO DAILY PRN PRN Reason: Constipation Last Admin: 05/20/17 08:24 Dose: 30 ml Metoprolol Tartrate (Lopressor) 25 mg PO Q12 [facility] Last Admin: 05/24/17 08:44 Dose: 25 mg Ondansetron HCl (Zofran Inj) 4 mg IVP Q6H PRN PRN Reason: Nausea/Vomiting Pantoprazole Sodium (Protonix Ec Tab) 40 mg PO 0600 [facility] Last Admin: 05/24/17 06:20 Dose: 40 mg Sennosides (Senokot Tab) 17.2 mg PO HS [facility] Last Admin: 05/23/17 21:35 Dose: 17.2 mg Tramadol HCl (Ultram) 50 mg PO Q4 PRN PRN Reason: pain 4-1010 Last Admin: 05/24/17 08:47 Dose: 50 mg - Labs Labs: 05/24/17 05:20 05/24/17 05:20 - Constitutional Appears: Non-toxic, No Acute Distress - Head Exam Head Exam: ATRAUMATIC - Eye Exam Eye Exam: EOMI. absent: Scleral icterus - ENT Exam ENT Exam: Mucous Membranes Moist - Respiratory Exam Respiratory Exam: NORMAL BREATHING PATTERN. absent: Accessory Muscle Use, Respiratory Distress - Cardiovascular Exam Cardiovascular Exam: +S1, +S2. absent: Bradycardia, Tachycardia - GI/Abdominal Exam GI & Abdominal Exam: Distended, Soft. absent: Firm, Guarding, Rigid, Tenderness , Rebound Additional comments: abd distended and tympanic - Neurological Exam Neurological Exam: Alert, Awake, Oriented x3 - Psychiatric Exam Psychiatric exam: Normal Affect - Skin Skin Exam: Intact, Warm Assessment and Plan - Assessment and Plan (Free Text) Assessment: 87M with post-op ileus; improving Plan: continue bowel regimen as prescribed encourage PT and ambulation monitor electrolytes further recs per Dr. Saurav Germain PGY1
--- NOTE | 2017-05-24 13:04 | CP.PCM.PN ---
Subjective - Date & Time of Evaluation Date of Evaluation: 05/24/17 Time of Evaluation: 11:30 - Subjective Subjective: NO CHEST PAIN BREATHING BETTER STATES HE IS DOING OK WITH REHAB Objective - Vital Signs/Intake and Output Vital Signs (last 24 hours): Temp Pulse Resp BP Pulse Ox 97.0 F L 96 H 19 138/56 L 95 05/24/17 09:53 05/24/17 09:53 05/24/17 09:53 05/24/17 09:53 05/24/17 09:53 - Medications Medications: Current Medications Albuterol Sulfate (Albuterol 0.083% Inhal Olivia (2.5 Mg/3 Ml) Ud) 2.5 mg INH RQ4 PRN PRN Reason: Shortness of Breath Albuterol/Ipratropium (Duoneb 3 Mg/0.5 Mg (3 Ml) Ud) 3 ml IH RQID [facility] Last Admin: 05/24/17 11:43 Dose: 3 ml Allopurinol (Zyloprim) 300 mg PO DAILY [facility] Last Admin: 05/24/17 08:43 Dose: 300 mg Aspirin (Ecotrin) 81 mg PO DAILY [facility] Last Admin: 05/23/17 08:27 Dose: 81 mg Atorvastatin Calcium (Lipitor) 20 mg PO HS [facility] Last Admin: 05/23/17 21:34 Dose: 20 mg Bisacodyl (Dulcolax) 10 mg [place] DAILY PRN PRN Reason: Constipation Last Admin: 05/19/17 04:05 Dose: 10 mg Dimethicone (Proshield Plus Skin Protectant) 1 applic TOP Q8 [facility] Last Admin: 05/24/17 06:20 Dose: 1 applic Docusate Sodium (Colace) 100 mg PO TID [facility] Last Admin: 05/24/17 08:42 Dose: 100 mg Enalapril Maleate (Vasotec) 10 mg PO DAILY [facility] Last Admin: 05/24/17 08:45 Dose: 10 mg Guaifenesin (Mucinex La) 600 mg PO Q12 [facility] Last Admin: 05/24/17 08:45 Dose: 600 mg Lactic Acid (Lac-Hydrin 12% Lotion (225 G)) 1 applic TOP 0600 [facility] Last Admin: 05/24/17 06:20 Dose: 1 applic Magnesium Hydroxide (Milk Of Magnesia) 30 ml PO DAILY PRN PRN Reason: Constipation Last Admin: 05/20/17 08:24 Dose: 30 ml Metoprolol Tartrate (Lopressor) 25 mg PO Q12 [facility] Last Admin: 05/24/17 08:44 Dose: 25 mg Ondansetron HCl (Zofran Inj) 4 mg IVP Q6H PRN PRN Reason: Nausea/Vomiting Pantoprazole Sodium (Protonix Ec Tab) 40 mg PO 0600 [facility] Last Admin: 05/24/17 06:20 Dose: 40 mg Sennosides (Senokot Tab) 17.2 mg PO HS [facility] Last Admin: 05/23/17 21:35 Dose: 17.2 mg Tramadol HCl (Ultram) 50 mg PO Q4 PRN PRN Reason: pain 4-10 Last Admin: 05/24/17 08:47 Dose: 50 mg - Labs Labs: 05/24/17 05:20 05/24/17 05:20 - Respiratory Exam Additional comments: MILD RONCHI - Cardiovascular Exam Cardiovascular Exam: REGULAR RHYTHM, +S1, +S2 - Extremities Exam Additional comments: ONLY TRACE EDEMA BUT PATIENT IS SITTING IN A CHAIR Assessment and Plan - Assessment and Plan (Free Text) Assessment: S/P TAVR FOR AORTIC STENOSIS HYPERTENSION COPD S/P LAMINECTOMY FOR SEVERE LUMBAR STENOSIS Plan: CONTINUE METOPROLOL, ENALAPRIL, ASPIRIN, ATORVASTATIN AND BRONCHODILATORS CONTINUE ACUTE REHAB
--- NOTE | 2017-05-24 14:21 | CP.PCM.PN ---
Subjective - Date & Time of Evaluation Date of Evaluation: 05/24/17 Time of Evaluation: 14:20 - Subjective Subjective: Patient seen in the room had watery BM still with abdominal distension Will get repeat flat plate he is otherwise comfortable and doing well in PT/OT Objective - Vital Signs/Intake and Output Vital Signs (last 24 hours): Temp Pulse Resp BP Pulse Ox 97.0 F L 96 H 19 138/56 L 95 05/24/17 09:53 05/24/17 09:53 05/24/17 09:53 05/24/17 09:53 05/24/17 09:53 - Medications Medications: Current Medications Albuterol Sulfate (Albuterol 0.083% Inhal Olivia (2.5 Mg/3 Ml) Ud) 2.5 mg INH RQ4 PRN PRN Reason: Shortness of Breath Albuterol/Ipratropium (Duoneb 3 Mg/0.5 Mg (3 Ml) Ud) 3 ml IH RQID [facility] Last Admin: 05/24/17 11:43 Dose: 3 ml Allopurinol (Zyloprim) 300 mg PO DAILY [facility] Last Admin: 05/24/17 08:43 Dose: 300 mg Aspirin (Ecotrin) 81 mg PO DAILY [facility] Last Admin: 05/24/17 08:30 Dose: 81 mg Atorvastatin Calcium (Lipitor) 20 mg PO HS [facility] Last Admin: 05/23/17 21:34 Dose: 20 mg Bisacodyl (Dulcolax) [address] DAILY PRN PRN Reason: Constipation Last Admin: 05/19/17 04:05 Dose: 10 mg Dimethicone (Proshield Plus Skin Protectant) 1 applic TOP Q8 [facility] Last Admin: 05/24/17 14:00 Dose: 1 applic Docusate Sodium (Colace) 100 mg PO TID [facility] Last Admin: 05/24/17 13:59 Dose: 100 mg Enalapril Maleate (Vasotec) 10 mg PO DAILY [facility] Last Admin: 05/24/17 08:45 Dose: 10 mg Guaifenesin (Mucinex La) 600 mg PO Q12 [facility] Last Admin: 05/24/17 08:45 Dose: 600 mg Lactic Acid (Lac-Hydrin 12% Lotion (225 G)) 1 applic TOP 0600 [facility] Last Admin: 05/24/17 06:20 Dose: 1 applic Magnesium Hydroxide (Milk Of Magnesia) 30 ml PO DAILY PRN PRN Reason: Constipation Last Admin: 05/20/17 08:24 Dose: 30 ml Metoprolol Tartrate (Lopressor) 25 mg PO Q12 [facility] Last Admin: 05/24/17 08:44 Dose: 25 mg Ondansetron HCl (Zofran Inj) 4 mg IVP Q6H PRN PRN Reason: Nausea/Vomiting Pantoprazole Sodium (Protonix Ec Tab) 40 mg PO 0600 [facility] Last Admin: 05/24/17 06:20 Dose: 40 mg Sennosides (Senokot Tab) 17.2 mg PO HS [facility] Last Admin: 05/23/17 21:35 Dose: 17.2 mg Tramadol HCl (Ultram) 50 mg PO Q4 PRN PRN Reason: pain 4-01/06 Last Admin: 05/24/17 08:47 Dose: 50 mg - Labs Labs: 05/24/17 05:20 05/24/17 05:20
--- NOTE | 2017-05-24 16:05 | RAD ---
HISTORY: Ileus COMPARISON: Abdomen radiograph 05/20/2017. FINDINGS: BOWEL: Gas distention of the apparent transverse colon and likely the splenic flexure persists in the upper abdomen with prominent retained fecal material identified in the right hemicolon. A [id number] amount of gas is seen at the distal large bowel. No definite significant small bowel distention is appreciated at this time and the overall pattern remains reflective of a likely postoperative ileus with the differential diagnosis remaining distal large bowel obstruction. No prominent free intraperitoneal gas is appreciated with likely phleboliths seen in the inferior right pelvis soft tissues. BONES: Normal. OTHER FINDINGS: None. IMPRESSION: Findings remain suspicious for postoperative ileus though a distal large bowel obstruction remains in the differential diagnosis. Further clinical correlation advised. No free intraperitoneal gas grossly evident.
[2017-05-25] MEDS: Pantoprazole 40 mg EC Tab PO SCH (06:21)
[2017-05-25] MEDS: Proshield Plus GEL TOP SCH ×3 (06:21→21:00)
[2017-05-25] MEDS: Albuterol-Ipratrop 3 mg / 0.5 (3 ml) UD IH SCH ×4 (08:12→19:19)
[2017-05-25] MEDS: Enoxaparin 40 mg Syringe SC SCH (08:20)
[2017-05-25] MEDS: guaiFENesin 600 mg ER Tab PO SCH ×2 (08:21→20:59)
--- NOTE | 2017-05-25 08:37 | CP.PCM.PN ---
Subjective - Date & Time of Evaluation Date of Evaluation: 05/25/17 Time of Evaluation: 08:36 - Subjective Subjective: General Surgery: Dr Mg Pt S&E. NAEO. Continues to pass flatus and have liquid BMs. However, remains distended with poor appetite. Denies N/V, F/C, sob or chest pain. Objective - Vital Signs/Intake and Output Vital Signs (last 24 hours): Temp Pulse Resp BP Pulse Ox 97.7 F 92 H 20 123/55 L 98 05/24/17 20:00 05/25/17 08:21 05/24/17 20:00 05/25/17 08:21 05/24/17 20:00 - Medications Medications: Current Medications Albuterol Sulfate (Albuterol 0.083% Inhal Olivia (2.5 Mg/3 Ml) Ud) 2.5 mg INH RQ4 PRN PRN Reason: Shortness of Breath Albuterol/Ipratropium (Duoneb 3 Mg/0.5 Mg (3 Ml) Ud) 3 ml IH RQID [facility] Last Admin: 05/25/17 08:12 Dose: 3 ml Allopurinol (Zyloprim) 300 mg PO DAILY [facility] Last Admin: 05/25/17 08:20 Dose: 300 mg Aspirin (Ecotrin) 81 mg PO DAILY [facility] Last Admin: 05/25/17 08:22 Dose: 81 mg Atorvastatin Calcium (Lipitor) 20 mg PO HS [facility] Last Admin: 05/24/17 21:42 Dose: 20 mg Bisacodyl (Dulcolax) 10 mg [place] DAILY PRN PRN Reason: Constipation Last Admin: 05/19/17 04:05 Dose: 10 mg Dimethicone (Proshield Plus Skin Protectant) 1 applic TOP Q8 [facility] Last Admin: 05/25/17 06:21 Dose: 1 applic Docusate Sodium (Colace) 100 mg PO TID [facility] Last Admin: 05/25/17 08:21 Dose: 100 mg Enalapril Maleate (Vasotec) 10 mg PO DAILY [facility] Last Admin: 05/25/17 08:21 Dose: 10 mg Enoxaparin Sodium (Lovenox) 40 mg SC DAILY [facility] PRN Reason: Protocol Last Admin: 05/25/17 08:20 Dose: 40 mg Guaifenesin (Mucinex La) 600 mg PO Q12 [facility] Last Admin: 05/25/17 08:21 Dose: 600 mg Lactic Acid (Lac-Hydrin 12% Lotion (225 G)) 1 applic TOP 0600 [facility] Last Admin: 05/25/17 06:21 Dose: 1 applic Magnesium Hydroxide (Milk Of Magnesia) 30 ml PO DAILY PRN PRN Reason: Constipation Last Admin: 05/20/17 08:24 Dose: 30 ml Metoprolol Tartrate (Lopressor) 25 mg PO Q12 [facility] Last Admin: 05/25/17 08:21 Dose: 25 mg Ondansetron HCl (Zofran Inj) 4 mg IVP Q6H PRN PRN Reason: Nausea/Vomiting Pantoprazole Sodium (Protonix Ec Tab) 40 mg PO 0600 [facility] Last Admin: 05/25/17 06:21 Dose: 40 mg Sennosides (Senokot Tab) 17.2 mg PO HS [facility] Last Admin: 05/24/17 21:43 Dose: 17.2 mg Tramadol HCl (Ultram) 50 mg PO Q4 PRN PRN Reason: pain 4-1010 Last Admin: 05/24/17 08:47 Dose: 50 mg - Labs Labs: 05/24/17 05:20 05/24/17 05:20 - Constitutional Appears: Non-toxic, No Acute Distress - Respiratory Exam Respiratory Exam: NORMAL BREATHING PATTERN - Cardiovascular Exam Cardiovascular Exam: REGULAR RHYTHM. absent: Tachycardia - GI/Abdominal Exam GI & Abdominal Exam: Distended, Soft, Hypoactive Bowel Sounds. absent: Firm, Guarding, Rigid, Tenderness Assessment and Plan - Assessment and Plan (Free Text) Assessment: 87M with continued abdominal distension Plan: will get GI series to r/o mechanical obstruction cont bowel regimen will cont to follow d/w Dr Saurav Garibay, PGY3
--- NOTE | 2017-05-25 15:04 | CP.PCM.PN ---
Subjective - Date & Time of Evaluation Date of Evaluation: 05/25/17 Time of Evaluation: 15:04 - Subjective Subjective: Patient seen in PT, doing well had a BM this -am denies pain distended still ambulating with RW continue current care Objective - Vital Signs/Intake and Output Vital Signs (last 24 hours): Temp Pulse Resp BP Pulse Ox 97.7 F 93 H 20 123/55 L 97 05/24/17 20:00 05/25/17 11:13 05/25/17 09:39 05/25/17 09:39 05/25/17 11:13 - Medications Medications: Current Medications Albuterol Sulfate (Albuterol 0.083% Inhal Olivia (2.5 Mg/3 Ml) Ud) 2.5 mg INH RQ4 PRN PRN Reason: Shortness of Breath Albuterol/Ipratropium (Duoneb 3 Mg/0.5 Mg (3 Ml) Ud) 3 ml IH RQID [facility] Last Admin: 05/25/17 11:39 Dose: 3 ml Allopurinol (Zyloprim) 300 mg PO DAILY [facility] Last Admin: 05/25/17 08:20 Dose: 300 mg Aspirin (Ecotrin) 81 mg PO DAILY [facility] Last Admin: 05/25/17 08:22 Dose: 81 mg Atorvastatin Calcium (Lipitor) 20 mg PO HS [facility] Last Admin: 05/24/17 21:42 Dose: 20 mg Bisacodyl (Dulcolax) 10 mg [place] DAILY PRN PRN Reason: Constipation Last Admin: 05/19/17 04:05 Dose: 10 mg Dimethicone (Proshield Plus Skin Protectant) 1 applic TOP Q8 [facility] Last Admin: 05/25/17 06:21 Dose: 1 applic Docusate Sodium (Colace) 100 mg PO TID [facility] Last Admin: 05/25/17 12:19 Dose: 100 mg Enalapril Maleate (Vasotec) 10 mg PO DAILY [facility] Last Admin: 05/25/17 08:21 Dose: 10 mg Enoxaparin Sodium (Lovenox) 40 mg SC DAILY [facility] PRN Reason: Protocol Last Admin: 05/25/17 08:20 Dose: 40 mg Guaifenesin (Mucinex La) 600 mg PO Q12 [facility] Last Admin: 05/25/17 08:21 Dose: 600 mg Lactic Acid (Lac-Hydrin 12% Lotion (225 G)) 1 applic TOP 0600 [facility] Last Admin: 05/25/17 06:21 Dose: 1 applic Lactobacillus Acidophilus (Bacid Acidophilus) 1 cap PO BID [facility] Magnesium Hydroxide (Milk Of Magnesia) 30 ml PO DAILY PRN PRN Reason: Constipation Last Admin: 05/20/17 08:24 Dose: 30 ml Metoprolol Tartrate (Lopressor) 25 mg PO Q12 [facility] Last Admin: 05/25/17 08:21 Dose: 25 mg Ondansetron HCl (Zofran Inj) 4 mg IVP Q6H PRN PRN Reason: Nausea/Vomiting Pantoprazole Sodium (Protonix Ec Tab) 40 mg PO 0600 [facility] Last Admin: 05/25/17 06:21 Dose: 40 mg Sennosides (Senokot Tab) 17.2 mg PO HS [facility] Last Admin: 05/24/17 21:43 Dose: 17.2 mg Tramadol HCl (Ultram) 50 mg PO Q4 PRN PRN Reason: pain 4-1010 Last Admin: 05/24/17 08:47 Dose: 50 mg - Labs Labs: 05/24/17 05:20 05/24/17 05:20
[2017-05-25] MEDS: Lactobacillus Acidophilus 500 MU Cap PO SCH (17:04)
--- NOTE | 2017-05-25 21:05 | CP.PCM.PN ---
Subjective - Date & Time of Evaluation Date of Evaluation: 05/25/17 Time of Evaluation: 22:22 - Subjective Subjective: Above noted Good BM today Objective - Vital Signs/Intake and Output Vital Signs (last 24 hours): Temp Pulse Resp BP Pulse Ox 97.0 F L 88 20 127/59 L 96 05/25/17 20:37 05/25/17 20:59 05/25/17 20:37 05/25/17 20:59 05/25/17 20:37 - Medications Medications: Current Medications Albuterol Sulfate (Albuterol 0.083% Inhal Olivia (2.5 Mg/3 Ml) Ud) 2.5 mg INH RQ4 PRN PRN Reason: Shortness of Breath Albuterol/Ipratropium (Duoneb 3 Mg/0.5 Mg (3 Ml) Ud) 3 ml IH RQID [facility] Last Admin: 05/25/17 19:19 Dose: 3 ml Allopurinol (Zyloprim) 300 mg PO DAILY [facility] Last Admin: 05/25/17 08:20 Dose: 300 mg Aspirin (Ecotrin) 81 mg PO DAILY [facility] Last Admin: 05/25/17 08:22 Dose: 81 mg Atorvastatin Calcium (Lipitor) 20 mg PO HS [facility] Last Admin: 05/25/17 21:00 Dose: 20 mg Bisacodyl (Dulcolax) 10 mg [place] DAILY PRN PRN Reason: Constipation Last Admin: 05/19/17 04:05 Dose: 10 mg Dimethicone (Proshield Plus Skin Protectant) 1 applic TOP Q8 [facility] Last Admin: 05/25/17 21:00 Dose: 1 applic Docusate Sodium (Colace) 100 mg PO TID [facility] Last Admin: 05/25/17 17:04 Dose: 100 mg Enalapril Maleate (Vasotec) 10 mg PO DAILY [facility] Last Admin: 05/25/17 08:21 Dose: 10 mg Enoxaparin Sodium (Lovenox) 40 mg SC DAILY [facility] PRN Reason: Protocol Last Admin: 05/25/17 08:20 Dose: 40 mg Guaifenesin (Mucinex La) 600 mg PO Q12 [facility] Last Admin: 05/25/17 20:59 Dose: 600 mg Lactic Acid (Lac-Hydrin 12% Lotion (225 G)) 1 applic TOP 0600 [facility] Last Admin: 05/25/17 06:21 Dose: 1 applic Lactobacillus Acidophilus (Bacid Acidophilus) 1 cap PO BID [facility] Last Admin: 05/25/17 17:04 Dose: 1 cap Magnesium Hydroxide (Milk Of Magnesia) 30 ml PO DAILY PRN PRN Reason: Constipation Last Admin: 05/20/17 08:24 Dose: 30 ml Metoprolol Tartrate (Lopressor) 25 mg PO Q12 [facility] Last Admin: 05/25/17 20:59 Dose: 25 mg Ondansetron HCl (Zofran Inj) 4 mg IVP Q6H PRN PRN Reason: Nausea/Vomiting Pantoprazole Sodium (Protonix Ec Tab) 40 mg PO 0600 [facility] Last Admin: 05/25/17 06:21 Dose: 40 mg Sennosides (Senokot Tab) 17.2 mg PO HS [facility] Last Admin: 05/25/17 21:00 Dose: 17.2 mg Tramadol HCl (Ultram) 50 mg PO Q4 PRN PRN Reason: pain 4-10/10 Last Admin: 05/24/17 08:47 Dose: 50 mg - Labs Labs: 05/24/17 05:20 05/24/17 05:20 - Respiratory Exam Respiratory Exam: NORMAL BREATHING PATTERN - Cardiovascular Exam Cardiovascular Exam: REGULAR RHYTHM - GI/Abdominal Exam GI & Abdominal Exam: Normal Bowel Sounds Assessment and Plan - Assessment and Plan (Free Text) Assessment: S/P Low back surgery POD#7 (Severe Spinal Stenosis) PT Incentive spirometry Pain medication Physiatry Post operative illeus improving Meds ordered OOB PT D/C opiods COPD Smoker Pulmonary HTN Prediabetes S/P TAVR Cardiology
[2017-05-26] MEDS: Proshield Plus GEL TOP SCH ×3 (06:03→21:16)
[2017-05-26] MEDS: Pantoprazole 40 mg EC Tab PO SCH (06:48)
[2017-05-26] MEDS: Albuterol-Ipratrop 3 mg / 0.5 (3 ml) UD IH SCH ×4 (07:42→19:54)
--- NOTE | 2017-05-26 07:43 | CP.PCM.PN ---
Subjective - Date & Time of Evaluation Date of Evaluation: 05/26/17 Time of Evaluation: 07:41 - Subjective Subjective: General Surgery Progress Note - Dr. Mg 87 y/o male seen at bedside this morning. Denies any acute events overnight. States he is not having any more abdominal pain and is not tender to touch. Admits to several bowel movements yesterday. Slept well overnight without difficulty. Denies F/C/N/V/CP/SOB Objective - Vital Signs/Intake and Output Vital Signs (last 24 hours): Temp Pulse Resp BP Pulse Ox 97.0 F L 88 20 127/59 L 96 05/25/17 20:37 05/25/17 20:59 05/25/17 20:37 05/25/17 20:59 05/25/17 20:37 - Medications Medications: Current Medications Albuterol Sulfate (Albuterol 0.083% Inhal Olivia (2.5 Mg/3 Ml) Ud) 2.5 mg INH RQ4 PRN PRN Reason: Shortness of Breath Albuterol/Ipratropium (Duoneb 3 Mg/0.5 Mg (3 Ml) Ud) 3 ml IH RQID [facility] Last Admin: 05/25/17 19:19 Dose: 3 ml Allopurinol (Zyloprim) 300 mg PO DAILY [facility] Last Admin: 05/25/17 08:20 Dose: 300 mg Aspirin (Ecotrin) 81 mg PO DAILY [facility] Last Admin: 05/25/17 08:22 Dose: 81 mg Atorvastatin Calcium (Lipitor) 20 mg PO HS [facility] Last Admin: 05/25/17 21:00 Dose: 20 mg Bisacodyl (Dulcolax) 10 mg [place] DAILY PRN PRN Reason: Constipation Last Admin: 05/19/17 04:05 Dose: 10 mg Dimethicone (Proshield Plus Skin Protectant) 1 applic TOP Q8 [facility] Last Admin: 05/26/17 06:03 Dose: 1 applic Docusate Sodium (Colace) 100 mg PO TID [facility] Last Admin: 05/25/17 17:04 Dose: 100 mg Enalapril Maleate (Vasotec) 10 mg PO DAILY [facility] Last Admin: 05/25/17 08:21 Dose: 10 mg Enoxaparin Sodium (Lovenox) 40 mg SC DAILY [facility] PRN Reason: Protocol Last Admin: 05/25/17 08:20 Dose: 40 mg Guaifenesin (Mucinex La) 600 mg PO Q12 [facility] Last Admin: 05/25/17 20:59 Dose: 600 mg Lactic Acid (Lac-Hydrin 12% Lotion (225 G)) 1 applic TOP 0600 [facility] Last Admin: 05/26/17 06:04 Dose: 1 applic Lactobacillus Acidophilus (Bacid Acidophilus) 1 cap PO BID [facility] Last Admin: 05/25/17 17:04 Dose: 1 cap Magnesium Hydroxide (Milk Of Magnesia) 30 ml PO DAILY PRN PRN Reason: Constipation Last Admin: 05/20/17 08:24 Dose: 30 ml Metoprolol Tartrate (Lopressor) 25 mg PO Q12 [facility] Last Admin: 05/25/17 20:59 Dose: 25 mg Ondansetron HCl (Zofran Inj) 4 mg IVP Q6H PRN PRN Reason: Nausea/Vomiting Pantoprazole Sodium (Protonix Ec Tab) 40 mg PO 0600 [facility] Last Admin: 05/26/17 06:48 Dose: 40 mg Sennosides (Senokot Tab) 17.2 mg PO HS [facility] Last Admin: 05/25/17 21:00 Dose: 17.2 mg Tramadol HCl (Ultram) 50 mg PO Q4 PRN PRN Reason: pain [id number] Last Admin: 05/24/17 08:47 Dose: 50 mg - Labs Labs: 05/24/17 05:20 05/24/17 05:20 - Constitutional Appears: Well, Non-toxic, No Acute Distress - Head Exam Head Exam: ATRAUMATIC - Eye Exam Eye Exam: Normal appearance - Respiratory Exam Respiratory Exam: NORMAL BREATHING PATTERN. absent: Chest Wall Tenderness, Respiratory Distress - GI/Abdominal Exam GI & Abdominal Exam: Soft. absent: Firm, Guarding, Tenderness, Hernia, Rebound Additional comments: no tenderness to palpation less distended - Extremities Exam Extremities Exam: Normal Inspection - Neurological Exam Neurological Exam: Alert, Awake, Oriented x3 - Psychiatric Exam Psychiatric exam: Normal Affect, Normal Mood - Skin Skin Exam: Dry, Intact, Normal Color Assessment and Plan - Assessment and Plan (Free Text) Assessment: 87M with abdominal distension; resolved Plan: -cont bowel regimen prn -cont PT and ambulation -no surgical intervention at this time -please reconsult as needed -discussed with Dr. Mg
[2017-05-26] MEDS: Enoxaparin 40 mg Syringe SC SCH (08:58)
[2017-05-26] MEDS: guaiFENesin 600 mg ER Tab PO SCH ×2 (08:59→20:29)
[2017-05-26] MEDS: Lactobacillus Acidophilus 500 MU Cap PO SCH ×2 (09:00→17:20)
--- NOTE | 2017-05-26 13:19 | PSY.TMCNF ---
Nursing - Vital Signs Vital Signs (Last 8 hours): Vital Signs 05/26/17 05/26/17 05/26/17 07:54 08:58 09:00 Temperature 97.6 F 97.6 F Pulse Rate 79 79 79 Respiratory 18 18 Rate Blood Pressure 125/68 125/65 125/65 O2 Sat by Pulse 97 Oximetry Pain: 0 - Precautions: Precautions: Fall Prevention - Medications/Other Issues Comment: Abdomen still distended although lesser compared to last week . Follow- up abdomen flat plate done, Dr. Mg aware - Consults Comment: Dr. Madrigal, Dr. Dixon, Dr. Grewal, Dr. Dickens, Dr. Mg - Skin Incision Site: lower back Dressing Status: Changed Incision: [place] Intact, No Drainage Noted Incision Line Treatment: Cleanse with NS and apply dry dressing - Toileting Toileting: Maximal Assistance - Bladder Management Bladder Pattern: Normal Voiding Method: Toilet Bladder Management: Supervision Frequency of Accidents: 0 - Bowel Management Bowel Pattern: Constipated Bowel Management: Supervision Frequency of Accidents: 0 - Transfers Transfers: Supervision - ADL's ADL's: Minimal Assistance - Pain Management Comments: Ultram PRN - Patient/Family Teaching Comments: -Care post Laminectomy, spinal and safety precautions. -Resolving constipation - Goals/Time Frame Comments: PER MULTIDISCIPLINARY CARE PLAN GOALS - Provider Provider: CAMI GUIDRYN RN CRRN Physical Therapy - Bed Mobility Bed Mobility: Verbal Cues, Minimal Assistance Comment: log rolling method - Transfers Sit to Stand: Supervision - Ambulation Level of Assistance: Supervision, Verbal Cues Distance (ft.): 200 Assistive Devices: Rolling Walker - Stair Negotiation Stairs: Level of Assistance: Verbal Cues, Contact Guard Number of Stairs: 11 Stairs: Assistive Devices: Left Handrail, Single point cane - Standing Balance Static Stand: Contact Guard Assist Dynamic Stand: Minimal Assistance Comment: w/ RW - Pain Pain (assessed during therapy session): 3 Management Techniques: Medication, Ice, Position Change, Relaxation Techniques, Exercise - Insight/Carryover Insight/Carryover: Fair - Patient/Family Education Comment: Patient has been educated about safety, spinal precautions posture, DME , OT goals and plan of care. - Assessment/Plan Assessment: Pt is engaged in independent leisure tasks throughout his stay on unit. Pt receives daily room visits for social support and encouragement to participate in sessions. Pt expresses that he is content and prefers to watch television or rest in room. Will continue to encourage pt to participate in recreation therapy sessions. - Goals Timeframe: 1 week Goals: Modifed independence with functional transfers and ADLs. - Provider Therapist: Ava Portillo PT License Number: [id number] Occupational Therapy - Arousal/Attention/Orientation Patient Orientation: Person, Place, Time, Appropriate to Age, Appropriate to Situation - ADL/IADL Self Feeding: Supervision, Set-up Help Grooming: Supervision, Set-up Help Bathing-Upper Extremity: Supervision Bathing-Lower Extremity: Contact Guard Dressing-Upper Extremity: Supervision, Set-up Help Dressing-Lower Extremity: Minimal Assistance - Sitting Balance Static Sitting: Independent without upper extremity support Dynamic Sitting: Requires supervision - Transfers Wheelchair to Bed Transfers: Supervision Toilet Transfers: Supervision Tub Transfers: Minimal Assistance - Upper Extremity Status Right Upper Extremity Comment: WFL Left Upper Extremity Comment: WFL - Pain Pain (assessed during therapy session): 3 Alleviating Techniques: Medication, Ice, Position Change, Relaxation Techniques , Exercise - Insight/Carryover Insight/Carryover: Fair - Patient/Family Education Comment: Patient has been educated about safety, spinal precautions posture, DME , OT goals and plan of care. - Assessment/Plan Assessment: Pt is engaged in independent leisure tasks throughout his stay on unit. Pt receives daily room visits for social support and encouragement to participate in sessions. Pt expresses that he is content and prefers to watch television or rest in room. Will continue to encourage pt to participate in recreation therapy sessions. - Goals Timeframe: 1 week Goals: Modifed independence with functional transfers and ADLs. - Provider Therapist: Ena Randolph MS, OTR/L Speech Therapy - Plan Assessment: Pt is engaged in independent leisure tasks throughout his stay on unit. Pt receives daily room visits for social support and encouragement to participate in sessions. Pt expresses that he is content and prefers to watch television or rest in room. Will continue to encourage pt to participate in recreation therapy sessions. Recreational Therapy - Participation Participation: Monitors His/Her Own Leisure Time - Attendance Attendance: Daily - Activities Leisure Activities: Television - Socialization Level of Socialization: Initiates/interacts freely with care givers and peer - Diversional Time Diversional Time: television - Assessment Assessment/Plan: Pt is engaged in independent leisure tasks throughout his stay on unit. Pt receives daily room visits for social support and encouragement to participate in sessions. Pt expresses that he is content and prefers to watch television or rest in room. Will continue to encourage pt to participate in recreation therapy sessions. Problems Currently Limiting Participation: weakness, pain, constipation, decrease leisure awareness level, decrease activity tolerance level Goals and Time Frame: Pt will be encouraged to participate in 1:1 and group recreation therapy sessions 3-5x week to improve leisure awareness level, arousal level, mood state, and direction following. - Provider Therapist: Loretta Gee, SENIOR CREDIT ANALYST #[id number] Nutrition - Current Diet Current Diet/ Supplement/ Feedings: Heart healthy give All Bran and Prunes every breakfast - Appetite Percent Meal Consumed: 75-100% - Comments Comments: -Care post Laminectomy, spinal and safety precautions. -Resolving constipation - Assessment/Goals/Time Frame Assessment/Goals/Time Frame: Abdomen still distended although lesser compared to last week . Follow-up abdomen flat plate done, Dr. Mg aware - Provider Provider: Pattie Boyd RD Case Management - Discharge Plan Discharge Plan: Home with significant other/family Rehabilitation Plan - Treatment Plan Treatment Plan: Physical Therapy, Occupational Therapy, Dietary, Patient/Family Education - Discharge Plan Estimated Date of Discharge: 05/30/17 Discharge to: Home
--- NOTE | 2017-05-26 14:01 | CP.PCM.PN ---
Subjective - Date & Time of Evaluation Date of Evaluation: 05/26/17 Time of Evaluation: 14:00 - Subjective Subjective: Patient seen in PT discussed d/c plan and he is not feeling confident to going home on 05/30/17 as planned. he will therefore need short BRANDY stay and going back to [facility] may be ideal he is doing very well and has made great progress Objective - Vital Signs/Intake and Output Vital Signs (last 24 hours): Temp Pulse Resp BP Pulse Ox 97.6 F 79 18 125/65 97 05/26/17 09:00 05/26/17 09:00 05/26/17 09:00 05/26/17 09:00 05/26/17 07:54 - Medications Medications: Current Medications Albuterol Sulfate (Albuterol 0.083% Inhal Olivia (2.5 Mg/3 Ml) Ud) 2.5 mg INH RQ4 PRN PRN Reason: Shortness of Breath Albuterol/Ipratropium (Duoneb 3 Mg/0.5 Mg (3 Ml) Ud) 3 ml IH RQID [facility] Last Admin: 05/26/17 11:52 Dose: Not Given Allopurinol (Zyloprim) 300 mg PO DAILY [facility] Last Admin: 05/26/17 09:01 Dose: 300 mg Aspirin (Ecotrin) 81 mg PO DAILY [facility] Last Admin: 05/26/17 08:59 Dose: 81 mg Atorvastatin Calcium (Lipitor) 20 mg PO HS [facility] Last Admin: 05/25/17 21:00 Dose: 20 mg Bisacodyl (Dulcolax) 10 mg [place] DAILY PRN PRN Reason: Constipation Last Admin: 05/19/17 04:05 Dose: 10 mg Dimethicone (Proshield Plus Skin Protectant) 1 applic TOP Q8 [facility] Last Admin: 05/26/17 13:45 Dose: 1 applic Docusate Sodium (Colace) 100 mg PO TID [facility] Last Admin: 05/26/17 13:45 Dose: 100 mg Enalapril Maleate (Vasotec) 10 mg PO DAILY [facility] Last Admin: 05/26/17 08:59 Dose: 10 mg Enoxaparin Sodium (Lovenox) 40 mg SC DAILY [facility] PRN Reason: Protocol Last Admin: 05/26/17 08:58 Dose: 40 mg Guaifenesin (Mucinex La) 600 mg PO Q12 [facility] Last Admin: 05/26/17 08:59 Dose: 600 mg Lactic Acid (Lac-Hydrin 12% Lotion (225 G)) 1 applic TOP 0600 [facility] Last Admin: 05/26/17 06:04 Dose: 1 applic Lactobacillus Acidophilus (Bacid Acidophilus) 1 cap PO BID [facility] Last Admin: 05/26/17 09:00 Dose: 1 cap Magnesium Hydroxide (Milk Of Magnesia) 30 ml PO DAILY PRN PRN Reason: Constipation Last Admin: 05/20/17 08:24 Dose: 30 ml Metoprolol Tartrate (Lopressor) 25 mg PO Q12 [facility] Last Admin: 05/26/17 08:58 Dose: 25 mg Ondansetron HCl (Zofran Inj) 4 mg IVP Q6H PRN PRN Reason: Nausea/Vomiting Pantoprazole Sodium (Protonix Ec Tab) 40 mg PO 0600 [facility] Last Admin: 05/26/17 06:48 Dose: 40 mg Sennosides (Senokot Tab) 17.2 mg PO HS [facility] Last Admin: 05/25/17 21:00 Dose: 17.2 mg Tramadol HCl (Ultram) 50 mg PO Q4 PRN PRN Reason: pain 4-10/10 Last Admin: 05/24/17 08:47 Dose: 50 mg - Labs Labs: 05/24/17 05:20 05/24/17 05:20
[2017-05-26] MEDS: Magnesium Hydroxide Susp 30 ml UD PO PRN (18:11)
--- NOTE | 2017-05-26 19:23 | CP.PCM.PN ---
Subjective - Date & Time of Evaluation Date of Evaluation: 05/26/17 Time of Evaluation: 02:22 - Subjective Subjective: Above noted Objective - Vital Signs/Intake and Output Vital Signs (last 24 hours): Temp Pulse Resp BP Pulse Ox 97.6 F 79 18 125/65 97 05/26/17 09:00 05/26/17 09:00 05/26/17 09:00 05/26/17 09:00 05/26/17 07:54 - Medications Medications: Current Medications Albuterol Sulfate (Albuterol 0.083% Inhal Olivia (2.5 Mg/3 Ml) Ud) 2.5 mg INH RQ4 PRN PRN Reason: Shortness of Breath Albuterol/Ipratropium (Duoneb 3 Mg/0.5 Mg (3 Ml) Ud) 3 ml IH RQID [facility] Last Admin: 05/26/17 16:11 Dose: 3 ml Allopurinol (Zyloprim) 300 mg PO DAILY [facility] Last Admin: 05/26/17 09:01 Dose: 300 mg Aspirin (Ecotrin) 81 mg PO DAILY [facility] Last Admin: 05/26/17 08:59 Dose: 81 mg Atorvastatin Calcium (Lipitor) 20 mg PO HS [facility] Last Admin: 05/25/17 21:00 Dose: 20 mg Bisacodyl (Dulcolax) 10 mg [place] DAILY PRN PRN Reason: Constipation Last Admin: 05/19/17 04:05 Dose: 10 mg Dimethicone (Proshield Plus Skin Protectant) 1 applic TOP Q8 [facility] Last Admin: 05/26/17 13:45 Dose: 1 applic Docusate Sodium (Colace) 100 mg PO TID [facility] Last Admin: 05/26/17 17:20 Dose: 100 mg Enalapril Maleate (Vasotec) 10 mg PO DAILY [facility] Last Admin: 05/26/17 08:59 Dose: 10 mg Enoxaparin Sodium (Lovenox) 40 mg SC DAILY [facility] PRN Reason: Protocol Last Admin: 05/26/17 08:58 Dose: 40 mg Guaifenesin (Mucinex La) 600 mg PO Q12 [facility] Last Admin: 05/26/17 08:59 Dose: 600 mg Lactic Acid (Lac-Hydrin 12% Lotion (225 G)) 1 applic TOP 0600 [facility] Last Admin: 05/26/17 06:04 Dose: 1 applic Lactobacillus Acidophilus (Bacid Acidophilus) 1 cap PO BID [facility] Last Admin: 05/26/17 17:20 Dose: 1 cap Magnesium Hydroxide (Milk Of Magnesia) 30 ml PO DAILY PRN PRN Reason: Constipation Last Admin: 05/26/17 18:11 Dose: 30 ml Metoprolol Tartrate (Lopressor) 25 mg PO Q12 [facility] Last Admin: 05/26/17 08:58 Dose: 25 mg Ondansetron HCl (Zofran Inj) 4 mg IVP Q6H PRN PRN Reason: Nausea/Vomiting Pantoprazole Sodium (Protonix Ec Tab) 40 mg PO 0600 [facility] Last Admin: 05/26/17 06:48 Dose: 40 mg Sennosides (Senokot Tab) 17.2 mg PO HS [facility] Last Admin: 05/25/17 21:00 Dose: 17.2 mg Tramadol HCl (Ultram) 50 mg PO Q4 PRN PRN Reason: pain 4-10/10 Last Admin: 05/24/17 08:47 Dose: 50 mg - Labs Labs: 05/24/17 05:20 05/24/17 05:20 - Respiratory Exam Respiratory Exam: NORMAL BREATHING PATTERN - Cardiovascular Exam Cardiovascular Exam: REGULAR RHYTHM - GI/Abdominal Exam GI & Abdominal Exam: Normal Bowel Sounds Assessment and Plan - Assessment and Plan (Free Text) Assessment: S/P Low back surgery POD#9 (Severe Spinal Stenosis) PT Incentive spirometry Pain medication Physiatry Post operative illeus improving Meds ordered OOB PT D/C opiods COPD Smoker Pulmonary HTN Prediabetes S/P TAVR Cardiology
[2017-05-27] MEDS: Pantoprazole 40 mg EC Tab PO SCH (06:06)
[2017-05-27] MEDS: Proshield Plus GEL TOP SCH ×3 (06:06→21:53)
[2017-05-27 06:48] LABS: HEMOGLOBIN 10.8 g/dL (12.0-18.0); MEAN CELL VOLUME 98.3 fl (80.0-94.0); MEAN CORPUSCULAR HEMOGLOBIN 32.6 pg (27.0-31.0); MEAN CORPUSCULAR HGB CONC 33.1 g/dL (33.0-37.0); RBC 3.31 Mil/uL (4.40-5.90); RED CELL DISTRIBUTION WIDTH 14.2 % (11.5-14.5)
[2017-05-27 06:59] LABS: BLOOD UREA NITROGEN 9 mg/dl (9-20); CALCIUM 8.9 mg/dL (8.4-10.2); GFR AFRICAN-AMERICAN > 60; GFR NON-AFRICAN AMERICAN > 60
[2017-05-27] MEDS: Albuterol-Ipratrop 3 mg / 0.5 (3 ml) UD IH SCH ×4 (07:15→19:56)
[2017-05-27] MEDS: guaiFENesin 600 mg ER Tab PO SCH ×2 (09:02→21:53)
[2017-05-27] MEDS: Enoxaparin 40 mg Syringe SC SCH (09:03)
[2017-05-27] MEDS: Lactobacillus Acidophilus 500 MU Cap PO SCH ×2 (09:14→16:55)
--- NOTE | 2017-05-27 11:32 | CP.PCM.PN ---
Subjective - Date & Time of Evaluation Date of Evaluation: 05/27/17 Time of Evaluation: 09:30 - Subjective Subjective: NO CHEST PAIN OR SOB Objective - Vital Signs/Intake and Output Vital Signs (last 24 hours): Temp Pulse Resp BP Pulse Ox 98.1 F 89 20 154/85 H 96 05/27/17 08:04 05/27/17 09:02 05/27/17 08:04 05/27/17 09:02 05/27/17 08:04 - Medications Medications: Current Medications Albuterol Sulfate (Albuterol 0.083% Inhal Olivia (2.5 Mg/3 Ml) Ud) 2.5 mg INH RQ4 PRN PRN Reason: Shortness of Breath Albuterol/Ipratropium (Duoneb 3 Mg/0.5 Mg (3 Ml) Ud) 3 ml IH RQID [facility] Last Admin: 05/27/17 07:15 Dose: 3 ml Allopurinol (Zyloprim) 300 mg PO DAILY [facility] Last Admin: 05/27/17 09:01 Dose: 300 mg Aspirin (Ecotrin) 81 mg PO DAILY [facility] Last Admin: 05/27/17 09:02 Dose: 81 mg Atorvastatin Calcium (Lipitor) 20 mg PO HS [facility] Last Admin: 05/26/17 21:16 Dose: 20 mg Bisacodyl (Dulcolax) 10 mg [place] DAILY PRN PRN Reason: Constipation Last Admin: 05/19/17 04:05 Dose: 10 mg Dimethicone (Proshield Plus Skin Protectant) 1 applic TOP Q8 [facility] Last Admin: 05/27/17 06:06 Dose: 1 applic Docusate Sodium (Colace) 100 mg PO TID [facility] Last Admin: 05/27/17 09:01 Dose: 100 mg Enalapril Maleate (Vasotec) 10 mg PO DAILY [facility] Last Admin: 05/27/17 09:01 Dose: 10 mg Enoxaparin Sodium (Lovenox) 40 mg SC DAILY [facility] PRN Reason: Protocol Last Admin: 05/27/17 09:03 Dose: 40 mg Guaifenesin (Mucinex La) 600 mg PO Q12 [facility] Last Admin: 05/27/17 09:02 Dose: 600 mg Lactic Acid (Lac-Hydrin 12% Lotion (225 G)) 1 applic TOP 0600 [facility] Last Admin: 05/27/17 06:06 Dose: 1 applic Lactobacillus Acidophilus (Bacid Acidophilus) 1 cap PO BID [facility] Last Admin: 05/27/17 09:14 Dose: 1 cap Magnesium Hydroxide (Milk Of Magnesia) 30 ml PO DAILY PRN PRN Reason: Constipation Last Admin: 05/26/17 18:11 Dose: 30 ml Metoprolol Tartrate (Lopressor) 25 mg PO Q12 [facility] Last Admin: 05/27/17 09:02 Dose: 25 mg Ondansetron HCl (Zofran Inj) 4 mg IVP Q6H PRN PRN Reason: Nausea/Vomiting Pantoprazole Sodium (Protonix Ec Tab) 40 mg PO 0600 [facility] Last Admin: 05/27/17 06:06 Dose: 40 mg Sennosides (Senokot Tab) 17.2 mg PO HS [facility] Last Admin: 05/26/17 21:16 Dose: 17.2 mg Tramadol HCl (Ultram) 50 mg PO Q4 PRN PRN Reason: pain 4-10/10 Last Admin: 05/24/17 08:47 Dose: 50 mg - Labs Labs: 05/27/17 05:45 05/27/17 05:45 - Respiratory Exam Respiratory Exam: Clear to Ausculation Bilateral - Cardiovascular Exam Cardiovascular Exam: REGULAR RHYTHM, +S1, +S2 Assessment and Plan - Assessment and Plan (Free Text) Assessment: S/P LAMINECTOMY HYPERTENSION HYPERLIPIDEMIA Plan: CONTINUE ASPIRIN, LOVENOX, METOPROLOL, ENALAPRIL, ATORVASTATIN CONTINUE REHAB
--- NOTE | 2017-05-27 12:34 | CP.PCM.PN ---
Subjective - Date & Time of Evaluation Date of Evaluation: 05/27/17 Time of Evaluation: 12:33 - Subjective Subjective: Patient seen in the room doing ok no abdominal pain, still with distension and tympany working hard in therapies Objective - Vital Signs/Intake and Output Vital Signs (last 24 hours): Temp Pulse Resp BP Pulse Ox 98.1 F 89 20 154/85 H 96 05/27/17 08:04 05/27/17 09:02 05/27/17 08:04 05/27/17 09:02 05/27/17 08:04 - Medications Medications: Current Medications Albuterol Sulfate (Albuterol 0.083% Inhal Olivia (2.5 Mg/3 Ml) Ud) 2.5 mg INH RQ4 PRN PRN Reason: Shortness of Breath Albuterol/Ipratropium (Duoneb 3 Mg/0.5 Mg (3 Ml) Ud) 3 ml IH RQID [facility] Last Admin: 05/27/17 11:37 Dose: Not Given Allopurinol (Zyloprim) 300 mg PO DAILY [facility] Last Admin: 05/27/17 09:01 Dose: 300 mg Aspirin (Ecotrin) 81 mg PO DAILY [facility] Last Admin: 05/27/17 09:02 Dose: 81 mg Atorvastatin Calcium (Lipitor) 20 mg PO HS [facility] Last Admin: 05/26/17 21:16 Dose: 20 mg Bisacodyl (Dulcolax) 10 mg [place] DAILY PRN PRN Reason: Constipation Last Admin: 05/19/17 04:05 Dose: 10 mg Dimethicone (Proshield Plus Skin Protectant) 1 applic TOP Q8 [facility] Last Admin: 05/27/17 06:06 Dose: 1 applic Docusate Sodium (Colace) 100 mg PO TID [facility] Last Admin: 05/27/17 09:01 Dose: 100 mg Enalapril Maleate (Vasotec) 10 mg PO DAILY [facility] Last Admin: 05/27/17 09:01 Dose: 10 mg Enoxaparin Sodium (Lovenox) 40 mg SC DAILY [facility] PRN Reason: Protocol Last Admin: 05/27/17 09:03 Dose: 40 mg Guaifenesin (Mucinex La) 600 mg PO Q12 [facility] Last Admin: 05/27/17 09:02 Dose: 600 mg Lactic Acid (Lac-Hydrin 12% Lotion (225 G)) 1 applic TOP 0600 [facility] Last Admin: 05/27/17 06:06 Dose: 1 applic Lactobacillus Acidophilus (Bacid Acidophilus) 1 cap PO BID [facility] Last Admin: 05/27/17 09:14 Dose: 1 cap Magnesium Hydroxide (Milk Of Magnesia) 30 ml PO DAILY PRN PRN Reason: Constipation Last Admin: 05/26/17 18:11 Dose: 30 ml Metoprolol Tartrate (Lopressor) 25 mg PO Q12 [facility] Last Admin: 05/27/17 09:02 Dose: 25 mg Ondansetron HCl (Zofran Inj) 4 mg IVP Q6H PRN PRN Reason: Nausea/Vomiting Pantoprazole Sodium (Protonix Ec Tab) 40 mg PO 0600 [facility] Last Admin: 05/27/17 06:06 Dose: 40 mg Sennosides (Senokot Tab) 17.2 mg PO HS [facility] Last Admin: 05/26/17 21:16 Dose: 17.2 mg Tramadol HCl (Ultram) 50 mg PO Q4 PRN PRN Reason: pain 4-1010 Last Admin: 05/24/17 08:47 Dose: 50 mg - Labs Labs: 05/27/17 05:45 05/27/17 05:45
--- NOTE | 2017-05-27 13:28 | CP.PCM.PN ---
Subjective - Date & Time of Evaluation Date of Evaluation: 05/27/17 Time of Evaluation: 13:27 - Subjective Subjective: Seen ambulating in the hallway using a walker with physical therapy. Appears to be progressing quite well at the present time. Denies any shortness of breath or chest pain. A congested cough is still present but much improved from before. Continue with the current regimen. Objective - Vital Signs/Intake and Output Vital Signs (last 24 hours): Temp Pulse Resp BP Pulse Ox 98.1 F 89 20 154/85 H 96 05/27/17 08:04 05/27/17 09:02 05/27/17 08:04 05/27/17 09:02 05/27/17 08:04 - Medications Medications: Current Medications Albuterol Sulfate (Albuterol 0.083% Inhal Olivia (2.5 Mg/3 Ml) Ud) 2.5 mg INH RQ4 PRN PRN Reason: Shortness of Breath Albuterol/Ipratropium (Duoneb 3 Mg/0.5 Mg (3 Ml) Ud) 3 ml IH RQID [facility] Last Admin: 05/27/17 11:37 Dose: Not Given Allopurinol (Zyloprim) 300 mg PO DAILY [facility] Last Admin: 05/27/17 09:01 Dose: 300 mg Aspirin (Ecotrin) 81 mg PO DAILY [facility] Last Admin: 05/27/17 09:02 Dose: 81 mg Atorvastatin Calcium (Lipitor) 20 mg PO HS [facility] Last Admin: 05/26/17 21:16 Dose: 20 mg Bisacodyl (Dulcolax) 10 mg [place] DAILY PRN PRN Reason: Constipation Last Admin: 05/19/17 04:05 Dose: 10 mg Dimethicone (Proshield Plus Skin Protectant) 1 applic TOP Q8 [facility] Last Admin: 05/27/17 13:13 Dose: 1 applic Docusate Sodium (Colace) 100 mg PO TID [facility] Last Admin: 05/27/17 13:12 Dose: 100 mg Enalapril Maleate (Vasotec) 10 mg PO DAILY [facility] Last Admin: 05/27/17 09:01 Dose: 10 mg Enoxaparin Sodium (Lovenox) 40 mg SC DAILY [facility] PRN Reason: Protocol Last Admin: 05/27/17 09:03 Dose: 40 mg Guaifenesin (Mucinex La) 600 mg PO Q12 [facility] Last Admin: 05/27/17 09:02 Dose: 600 mg Lactic Acid (Lac-Hydrin 12% Lotion (225 G)) 1 applic TOP 0600 [facility] Last Admin: 05/27/17 06:06 Dose: 1 applic Lactobacillus Acidophilus (Bacid Acidophilus) 1 cap PO BID [facility] Last Admin: 05/27/17 09:14 Dose: 1 cap Magnesium Hydroxide (Milk Of Magnesia) 30 ml PO DAILY PRN PRN Reason: Constipation Last Admin: 05/26/17 18:11 Dose: 30 ml Metoprolol Tartrate (Lopressor) 25 mg PO Q12 [facility] Last Admin: 05/27/17 09:02 Dose: 25 mg Ondansetron HCl (Zofran Inj) 4 mg IVP Q6H PRN PRN Reason: Nausea/Vomiting Pantoprazole Sodium (Protonix Ec Tab) 40 mg PO 0600 [facility] Last Admin: 05/27/17 06:06 Dose: 40 mg Sennosides (Senokot Tab) 17.2 mg PO HS [facility] Last Admin: 05/26/17 21:16 Dose: 17.2 mg Tramadol HCl (Ultram) 50 mg PO Q4 PRN PRN Reason: pain 4-10/10 Last Admin: 05/24/17 08:47 Dose: 50 mg - Labs Labs: 05/27/17 05:45 05/27/17 05:45 Assessment and Plan (1) 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
--- NOTE | 2017-05-27 17:46 | CP.PCM.PN ---
Subjective - Date & Time of Evaluation Date of Evaluation: 05/27/17 Time of Evaluation: 22:22 - Subjective Subjective: Above noted Objective - Vital Signs/Intake and Output Vital Signs (last 24 hours): Temp Pulse Resp BP Pulse Ox 98.1 F 77 97 H 154/85 H 96 05/27/17 08:04 05/27/17 16:52 05/27/17 16:52 05/27/17 09:02 05/27/17 08:04 - Medications Medications: Current Medications Albuterol Sulfate (Albuterol 0.083% Inhal Olivia (2.5 Mg/3 Ml) Ud) 2.5 mg INH RQ4 PRN PRN Reason: Shortness of Breath Albuterol/Ipratropium (Duoneb 3 Mg/0.5 Mg (3 Ml) Ud) 3 ml IH RQID [facility] Last Admin: 05/27/17 15:16 Dose: Not Given Allopurinol (Zyloprim) 300 mg PO DAILY [facility] Last Admin: 05/27/17 09:01 Dose: 300 mg Aspirin (Ecotrin) 81 mg PO DAILY [facility] Last Admin: 05/27/17 09:02 Dose: 81 mg Atorvastatin Calcium (Lipitor) 20 mg PO HS [facility] Last Admin: 05/26/17 21:16 Dose: 20 mg Bisacodyl (Dulcolax) 10 mg [place] DAILY PRN PRN Reason: Constipation Last Admin: 05/19/17 04:05 Dose: 10 mg Dimethicone (Proshield Plus Skin Protectant) 1 applic TOP Q8 [facility] Last Admin: 05/27/17 13:13 Dose: 1 applic Docusate Sodium (Colace) 100 mg PO TID [facility] Last Admin: 05/27/17 16:55 Dose: 100 mg Enalapril Maleate (Vasotec) 10 mg PO DAILY [facility] Last Admin: 05/27/17 09:01 Dose: 10 mg Enoxaparin Sodium (Lovenox) 40 mg SC DAILY [facility] PRN Reason: Protocol Last Admin: 05/27/17 09:03 Dose: 40 mg Guaifenesin (Mucinex La) 600 mg PO Q12 [facility] Last Admin: 05/27/17 09:02 Dose: 600 mg Lactic Acid (Lac-Hydrin 12% Lotion (225 G)) 1 applic TOP 0600 [facility] Last Admin: 05/27/17 06:06 Dose: 1 applic Lactobacillus Acidophilus (Bacid Acidophilus) 1 cap PO BID [facility] Last Admin: 05/27/17 16:55 Dose: 1 cap Magnesium Hydroxide (Milk Of Magnesia) 30 ml PO DAILY PRN PRN Reason: Constipation Last Admin: 05/26/17 18:11 Dose: 30 ml Metoprolol Tartrate (Lopressor) 25 mg PO Q12 [facility] Last Admin: 05/27/17 09:02 Dose: 25 mg Ondansetron HCl (Zofran Inj) 4 mg IVP Q6H PRN PRN Reason: Nausea/Vomiting Pantoprazole Sodium (Protonix Ec Tab) 40 mg PO 0600 [facility] Last Admin: 05/27/17 06:06 Dose: 40 mg Sennosides (Senokot Tab) 17.2 mg PO HS [facility] Last Admin: 05/26/17 21:16 Dose: 17.2 mg Tramadol HCl (Ultram) 50 mg PO Q4 PRN PRN Reason: pain 4-1010 Last Admin: 05/24/17 08:47 Dose: 50 mg - Labs Labs: 05/27/17 05:45 05/27/17 05:45 - Respiratory Exam Respiratory Exam: NORMAL BREATHING PATTERN - Cardiovascular Exam Cardiovascular Exam: REGULAR RHYTHM - GI/Abdominal Exam GI & Abdominal Exam: Normal Bowel Sounds Assessment and Plan - Assessment and Plan (Free Text) Assessment: S/P Low back surgery POD#10 (Severe Spinal Stenosis) PT Incentive spirometry Pain medication Physiatry Post operative illeus improving Meds ordered OOB PT D/C opiods COPD Smoker Pulmonary HTN Prediabetes S/P TAVR Cardiology
[2017-05-28] MEDS: Proshield Plus GEL TOP SCH ×3 (06:09→21:15)
[2017-05-28] MEDS: Pantoprazole 40 mg EC Tab PO SCH (06:09)
[2017-05-28] MEDS: Albuterol-Ipratrop 3 mg / 0.5 (3 ml) UD IH SCH ×4 (07:06→19:30)
[2017-05-28] MEDS: Enoxaparin 40 mg Syringe SC SCH (09:04)
[2017-05-28] MEDS: guaiFENesin 600 mg ER Tab PO SCH ×2 (09:06→20:38)
[2017-05-28] MEDS: Lactobacillus Acidophilus 500 MU Cap PO SCH ×2 (09:07→17:15)
--- NOTE | 2017-05-28 15:28 | CP.PCM.PN ---
Subjective - Date & Time of Evaluation Date of Evaluation: 05/28/17 Time of Evaluation: 22:22 - Subjective Subjective: Above noted Objective - Vital Signs/Intake and Output Vital Signs (last 24 hours): Temp Pulse Resp BP Pulse Ox 97.9 F 94 H 20 137/67 95 05/28/17 08:39 05/28/17 09:04 05/28/17 08:39 05/28/17 09:04 05/28/17 08:39 - Medications Medications: Current Medications Albuterol Sulfate (Albuterol 0.083% Inhal Olivia (2.5 Mg/3 Ml) Ud) 2.5 mg INH RQ4 PRN PRN Reason: Shortness of Breath Albuterol/Ipratropium (Duoneb 3 Mg/0.5 Mg (3 Ml) Ud) 3 ml IH RQID [facility] Last Admin: 05/28/17 13:35 Dose: Not Given Allopurinol (Zyloprim) 300 mg PO DAILY [facility] Last Admin: 05/28/17 09:04 Dose: 300 mg Aspirin (Ecotrin) 81 mg PO DAILY [facility] Last Admin: 05/28/17 09:05 Dose: 81 mg Atorvastatin Calcium (Lipitor) 20 mg PO HS [facility] Last Admin: 05/27/17 21:53 Dose: 20 mg Bisacodyl (Dulcolax) 10 mg [place] DAILY PRN PRN Reason: Constipation Last Admin: 05/19/17 04:05 Dose: 10 mg Dimethicone (Proshield Plus Skin Protectant) 1 applic TOP Q8 [facility] Last Admin: 05/28/17 13:57 Dose: 1 applic Docusate Sodium (Colace) 100 mg PO TID [facility] Last Admin: 05/28/17 13:57 Dose: 100 mg Enalapril Maleate (Vasotec) 10 mg PO DAILY [facility] Last Admin: 05/28/17 09:05 Dose: 10 mg Guaifenesin (Mucinex La) 600 mg PO Q12 [facility] Last Admin: 05/28/17 09:06 Dose: 600 mg Lactic Acid (Lac-Hydrin 12% Lotion (225 G)) 1 applic TOP 0600 [facility] Last Admin: 05/28/17 06:08 Dose: 1 applic Lactobacillus Acidophilus (Bacid Acidophilus) 1 cap PO BID [facility] Last Admin: 05/28/17 09:07 Dose: 1 cap Magnesium Hydroxide (Milk Of Magnesia) 30 ml PO DAILY PRN PRN Reason: Constipation Last Admin: 05/26/17 18:11 Dose: 30 ml Metoprolol Tartrate (Lopressor) 25 mg PO Q12 [facility] Last Admin: 05/28/17 09:04 Dose: 25 mg Ondansetron HCl (Zofran Inj) 4 mg IVP Q6H PRN PRN Reason: Nausea/Vomiting Pantoprazole Sodium (Protonix Ec Tab) 40 mg PO 0600 [facility] Last Admin: 05/28/17 06:09 Dose: 40 mg Sennosides (Senokot Tab) 17.2 mg PO HS [facility] Last Admin: 05/27/17 21:54 Dose: 17.2 mg Tramadol HCl (Ultram) 50 mg PO Q4 PRN PRN Reason: pain 4-01/06 Last Admin: 05/28/17 09:13 Dose: 50 mg - Labs Labs: 05/27/17 05:45 05/27/17 05:45 - Respiratory Exam Respiratory Exam: NORMAL BREATHING PATTERN - Cardiovascular Exam Cardiovascular Exam: REGULAR RHYTHM - GI/Abdominal Exam GI & Abdominal Exam: Normal Bowel Sounds Assessment and Plan - Assessment and Plan (Free Text) Assessment: S/P Low back surgery POD#11 (Severe Spinal Stenosis) PT Incentive spirometry Pain medication Physiatry Post operative illeus improving Meds ordered OOB PT D/C opiods COPD Smoker Pulmonary HTN Prediabetes S/P TAVR Cardiology
--- NOTE | 2017-05-28 18:11 | CP.PCM.PN ---
Subjective - Date & Time of Evaluation Date of Evaluation: 05/28/17 Time of Evaluation: 18:10 - Subjective Subjective: Patient seen in room doing very well in therapies but still quite anxious about d/c home will need to reinforce his progress set for d/c home next thursday Objective - Vital Signs/Intake and Output Vital Signs (last 24 hours): Temp Pulse Resp BP Pulse Ox 97.9 F 94 H 20 137/67 95 05/28/17 08:39 05/28/17 09:04 05/28/17 08:39 05/28/17 09:04 05/28/17 08:39 - Medications Medications: Current Medications Albuterol Sulfate (Albuterol 0.083% Inhal Oliiva (2.5 Mg/3 Ml) Ud) 2.5 mg INH RQ4 PRN PRN Reason: Shortness of Breath Albuterol/Ipratropium (Duoneb 3 Mg/0.5 Mg (3 Ml) Ud) 3 ml IH RQID [facility] Last Admin: 05/28/17 15:47 Dose: 3 ml Allopurinol (Zyloprim) 300 mg PO DAILY [facility] Last Admin: 05/28/17 09:04 Dose: 300 mg Aspirin (Ecotrin) 81 mg PO DAILY [facility] Last Admin: 05/28/17 09:05 Dose: 81 mg Atorvastatin Calcium (Lipitor) 20 mg PO HS [facility] Last Admin: 05/27/17 21:53 Dose: 20 mg Bisacodyl (Dulcolax) 10 mg [place] DAILY PRN PRN Reason: Constipation Last Admin: 05/19/17 04:05 Dose: 10 mg Dimethicone (Proshield Plus Skin Protectant) 1 applic TOP Q8 [facility] Last Admin: 05/28/17 13:57 Dose: 1 applic Docusate Sodium (Colace) 100 mg PO TID [facility] Last Admin: 05/28/17 17:13 Dose: 100 mg Enalapril Maleate (Vasotec) 10 mg PO DAILY [facility] Last Admin: 05/28/17 09:05 Dose: 10 mg Enoxaparin Sodium (Lovenox) 40 mg SC DAILY [facility] PRN Reason: Protocol Guaifenesin (Mucinex La) 600 mg PO Q12 [facility] Last Admin: 05/28/17 09:06 Dose: 600 mg Lactic Acid (Lac-Hydrin 12% Lotion (225 G)) 1 applic TOP 0600 [facility] Last Admin: 05/28/17 06:08 Dose: 1 applic Lactobacillus Acidophilus (Bacid Acidophilus) 1 cap PO BID [facility] Last Admin: 05/28/17 17:15 Dose: 1 cap Magnesium Hydroxide (Milk Of Magnesia) 30 ml PO DAILY PRN PRN Reason: Constipation Last Admin: 05/26/17 18:11 Dose: 30 ml Metoprolol Tartrate (Lopressor) 25 mg PO Q12 [facility] Last Admin: 05/28/17 09:04 Dose: 25 mg Ondansetron HCl (Zofran Inj) 4 mg IVP Q6H PRN PRN Reason: Nausea/Vomiting Pantoprazole Sodium (Protonix Ec Tab) 40 mg PO 0600 [facility] Last Admin: 05/28/17 06:09 Dose: 40 mg Sennosides (Senokot Tab) 17.2 mg PO HS [facility] Last Admin: 05/27/17 21:54 Dose: 17.2 mg Tramadol HCl (Ultram) 50 mg PO Q4 PRN PRN Reason: pain 4-10/10 Last Admin: 05/28/17 09:13 Dose: 50 mg Tramadol HCl (Ultram) 50 mg PO Q4 PRN PRN Reason: pain level 4-10 - Labs Labs: 05/27/17 05:45 05/27/17 05:45
[2017-05-29] MEDS: Pantoprazole 40 mg EC Tab PO SCH (06:38)
[2017-05-29] MEDS: Proshield Plus GEL TOP SCH ×3 (06:38→22:10)
[2017-05-29] MEDS: Albuterol-Ipratrop 3 mg / 0.5 (3 ml) UD IH SCH ×4 (07:14→19:27)
[2017-05-29] MEDS: guaiFENesin 600 mg ER Tab PO SCH ×2 (08:47→22:10)
[2017-05-29] MEDS ORDERED: Enoxaparin 40 mg Syringe SC SCH (09:00)
--- NOTE | 2017-05-29 09:37 | PN ---
DATE: SUBJECTIVE: The patient is seen and examined. The patient was seen for followup. While he is awake, the patient remains in . He denies any chest pain or shortness of breath. PHYSICAL EXAMINATION: GENERAL: The patient is in no acute distress. VITAL SIGNS: Stable. HEART: S1 and S2, normal and regular. LUNGS: Good bilateral air exchange. ABDOMEN: Soft and nontender. EXTREMITIES: No edema. No calf swelling, no tenderness. No acute ischemia. WAFER MOUNTER: Essentially changed. DIAGNOSTIC DATA: Available diagnostic data reviewed. PLAN: Overall, the patient's general medical condition is stable. Plan as ordered. Pop Farley MD
--- NOTE | 2017-05-29 10:58 | CP.PCM.PN ---
Subjective - Date & Time of Evaluation Date of Evaluation: 05/29/17 Time of Evaluation: 09:45 - Subjective Subjective: NO NEW COMPLAINTS DOING WELL IN REHAB Objective - Vital Signs/Intake and Output Vital Signs (last 24 hours): Temp Pulse Resp BP Pulse Ox 98.1 F 83 20 129/57 L 97 05/29/17 09:31 05/29/17 09:31 05/29/17 09:31 05/29/17 09:31 05/29/17 09:31 - Medications Medications: Current Medications Albuterol Sulfate (Albuterol 0.083% Inhal Olivia (2.5 Mg/3 Ml) Ud) 2.5 mg INH RQ4 PRN PRN Reason: Shortness of Breath Albuterol/Ipratropium (Duoneb 3 Mg/0.5 Mg (3 Ml) Ud) 3 ml IH RQID [facility] Last Admin: 05/29/17 07:14 Dose: 3 ml Allopurinol (Zyloprim) 300 mg PO DAILY [facility] Last Admin: 05/29/17 08:49 Dose: 300 mg Aspirin (Ecotrin) 81 mg PO DAILY [facility] Last Admin: 05/29/17 08:47 Dose: 81 mg Atorvastatin Calcium (Lipitor) 20 mg PO HS [facility] Last Admin: 05/28/17 21:15 Dose: 20 mg Bisacodyl (Dulcolax) 10 mg [place] DAILY PRN PRN Reason: Constipation Last Admin: 05/19/17 04:05 Dose: 10 mg Dimethicone (Proshield Plus Skin Protectant) 1 applic TOP Q8 [facility] Last Admin: 05/29/17 06:38 Dose: 1 applic Docusate Sodium (Colace) 100 mg PO TID [facility] Last Admin: 05/29/17 08:47 Dose: 100 mg Enalapril Maleate (Vasotec) 10 mg PO DAILY [facility] Last Admin: 05/29/17 08:48 Dose: 10 mg Enoxaparin Sodium (Lovenox) 40 mg SC DAILY [facility] PRN Reason: Protocol Last Admin: 05/29/17 08:46 Dose: 40 mg Guaifenesin (Mucinex La) 600 mg PO Q12 [facility] Last Admin: 05/29/17 08:47 Dose: 600 mg Lactic Acid (Lac-Hydrin 12% Lotion (225 G)) 1 applic TOP 0600 [facility] Last Admin: 05/29/17 06:38 Dose: 1 applic Lactobacillus Acidophilus (Bacid Acidophilus) 1 cap PO BID [facility] Last Admin: 05/28/17 17:15 Dose: 1 cap Magnesium Hydroxide (Milk Of Magnesia) 30 ml PO DAILY PRN PRN Reason: Constipation Last Admin: 05/26/17 18:11 Dose: 30 ml Metoprolol Tartrate (Lopressor) 25 mg PO Q12 [facility] Last Admin: 05/29/17 08:48 Dose: 25 mg Ondansetron HCl (Zofran Inj) 4 mg IVP Q6H PRN PRN Reason: Nausea/Vomiting Pantoprazole Sodium (Protonix Ec Tab) 40 mg PO 0600 [facility] Last Admin: 05/29/17 06:38 Dose: 40 mg Sennosides (Senokot Tab) 17.2 mg PO HS [facility] Last Admin: 05/28/17 21:15 Dose: 17.2 mg Tramadol HCl (Ultram) 50 mg PO Q4 PRN PRN Reason: pain 4-10/10 Last Admin: 05/28/17 09:13 Dose: 50 mg Tramadol HCl (Ultram) 50 mg PO Q4 PRN PRN Reason: pain level 4-10 - Labs Labs: 05/27/17 05:45 05/27/17 05:45 - Respiratory Exam Respiratory Exam: Clear to Ausculation Bilateral - Cardiovascular Exam Cardiovascular Exam: REGULAR RHYTHM, +S1, +S2 - Extremities Exam Additional comments: NO SIGNIFICANT LE EDEMA Assessment and Plan - Assessment and Plan (Free Text) Assessment: S/P TAVR HYPERTENSION HYPERLIPIDEMIA LAMINECTOMY FOR LUMBAR STENOSIS Plan: CONTINUE METOPROLOL, ENALAPRIL, ASPIRIN, LOVENOX, BRONCHODILATORS, ATORVASTATIN CONTINUE REHAB
[2017-05-29 12:20] LABS: BASO # 0.1 K/uL (0.0-0.2); BASO % 0.9 % (0.0-2.0); EOS # 0.1 K/uL (0.0-0.7); EOS % 1.4 % (0.0-4.0); HEMOGLOBIN 10.3 g/dL (12.0-18.0); LYMPH # 1.2 K/uL (1.0-4.3); LYMPH % 14.5 % (20.0-40.0); MEAN CELL VOLUME 96.7 fl (80.0-94.0); MEAN CORPUSCULAR HEMOGLOBIN 32.9 pg (27.0-31.0); MEAN PLATELET VOLUME 7.6 fl (7.2-11.7); MONO # 1.1 K/uL (0.0-0.8); MONO % 13.5 % (0.0-10.0); NEUT # 5.6 K/uL (1.8-7.0); NEUT % 69.7 % (50.0-75.0); RBC 3.12 Mil/uL (4.40-5.90); RED CELL DISTRIBUTION WIDTH 14.2 % (11.5-14.5)
[2017-05-29] MEDS: Lactobacillus Acidophilus 500 MU Cap PO SCH ×2 (12:59→18:08)
--- NOTE | 2017-05-29 16:48 | CP.PCM.PN ---
Subjective - Date & Time of Evaluation Date of Evaluation: 05/29/17 Time of Evaluation: 16:47 - Subjective Subjective: Patient seen in the room still with abdominal discomfort reportedly had some blood in stool I have stopped the LMWH and ASA now GI on consult. Hgb is stable from today's blood draw. continue current care Objective - Vital Signs/Intake and Output Vital Signs (last 24 hours): Temp Pulse Resp BP Pulse Ox 98.1 F 83 20 129/57 L 97 05/29/17 09:31 05/29/17 09:31 05/29/17 09:31 05/29/17 09:31 05/29/17 09:31 - Medications Medications: Current Medications Albuterol Sulfate (Albuterol 0.083% Inhal Olivia (2.5 Mg/3 Ml) Ud) 2.5 mg INH RQ4 PRN PRN Reason: Shortness of Breath Albuterol/Ipratropium (Duoneb 3 Mg/0.5 Mg (3 Ml) Ud) 3 ml IH RQID [facility] Last Admin: 05/29/17 15:36 Dose: 3 ml Allopurinol (Zyloprim) 300 mg PO DAILY [facility] Last Admin: 05/29/17 08:49 Dose: 300 mg Atorvastatin Calcium (Lipitor) 20 mg PO HS [facility] Last Admin: 05/28/17 21:15 Dose: 20 mg Bisacodyl (Dulcolax) 10 mg IN DAILY PRN PRN Reason: Constipation Last Admin: 05/19/17 04:05 Dose: 10 mg Dimethicone (Proshield Plus Skin Protectant) 1 applic TOP Q8 [facility] Last Admin: 05/29/17 13:00 Dose: 1 applic Docusate Sodium (Colace) 100 mg PO TID [facility] Last Admin: 05/29/17 13:00 Dose: 100 mg Enalapril Maleate (Vasotec) 10 mg PO DAILY [facility] Last Admin: 05/29/17 08:48 Dose: 10 mg Guaifenesin (Mucinex La) 600 mg PO Q12 [facility] Last Admin: 05/29/17 08:47 Dose: 600 mg Lactic Acid (Lac-Hydrin 12% Lotion (225 G)) 1 applic TOP 0600 [facility] Last Admin: 05/29/17 06:38 Dose: 1 applic Lactobacillus Acidophilus (Bacid Acidophilus) 1 cap PO BID [facility] Last Admin: 05/29/17 12:59 Dose: 1 cap Magnesium Hydroxide (Milk Of Magnesia) 30 ml PO DAILY PRN PRN Reason: Constipation Last Admin: 05/26/17 18:11 Dose: 30 ml Metoprolol Tartrate (Lopressor) 25 mg PO Q12 [facility] Last Admin: 05/29/17 08:48 Dose: 25 mg Ondansetron HCl (Zofran Inj) 4 mg IVP Q6H PRN PRN Reason: Nausea/Vomiting Pantoprazole Sodium (Protonix Ec Tab) 40 mg PO 0600 [facility] Last Admin: 05/29/17 06:38 Dose: 40 mg Sennosides (Senokot Tab) 17.2 mg PO HS [facility] Last Admin: 05/28/17 21:15 Dose: 17.2 mg Tramadol HCl (Ultram) 50 mg PO Q4 PRN PRN Reason: pain level 4-10 - Labs Labs: 05/29/17 12:10 05/27/17 05:45
[2017-05-29] MEDS: POLYETHYLENE GLYCOL 3350 17 GM/Dose PACKET PO SCH (23:58)
[2017-05-30] MEDS: Proshield Plus GEL TOP SCH ×3 (06:28→21:25)
[2017-05-30] MEDS: Pantoprazole 40 mg EC Tab PO SCH (06:28)
[2017-05-30 07:24] LABS: HEMOGLOBIN 9.6 g/dL (12.0-18.0); MEAN CELL VOLUME 96.9 fl (80.0-94.0); MEAN CORPUSCULAR HEMOGLOBIN 33.1 pg (27.0-31.0); MEAN CORPUSCULAR HGB CONC 34.2 g/dL (33.0-37.0); RBC 2.89 Mil/uL (4.40-5.90); RED CELL DISTRIBUTION WIDTH 14.5 % (11.5-14.5); WHITE BLOOD COUNT 6.4 K/uL (4.8-10.8)
[2017-05-30 07:34] LABS: ALBUMIN 3.1 g/dL (3.5-5.0); ALT/SGPT 61 U/L (21-72); AST/SGOT 35 U/L (17-59); BLOOD UREA NITROGEN 10 mg/dl (9-20); CALCIUM 8.6 mg/dL (8.4-10.2); GFR AFRICAN-AMERICAN > 60; GFR NON-AFRICAN AMERICAN > 60
[2017-05-30] MEDS: Albuterol-Ipratrop 3 mg / 0.5 (3 ml) UD IH SCH ×4 (07:36→20:02)
--- NOTE | 2017-05-30 08:34 | PN ---
DATE: 05/30/2017 SUBJECTIVE: The patient is seen and examined. Interim events noted. The patient remains in Acute Rehab Unit. Case was discussed with sulfide head operator. The patient has no more bloody bowel movements. No chest pain or shortness of breath. PHYSICAL EXAMINATION: GENERAL: The patient is in no acute distress. VITAL SIGNS: Stable. HEART: S1 and S2, normal and regular. LUNGS: Good bilateral air exchange. ABDOMEN: Soft and nontender. EXTREMITIES: No edema. No calf swelling. No tenderness. No acute ischemia. SENIOR HEALTH CONSULTANT: Essentially unchanged. DIAGNOSTIC DATA: Available diagnostic data reviewed. CBC and CMP acceptable. There is no significant . PLAN: Overall, the patient is clinically stable. Plan as ordered. Pop Farley MD
[2017-05-30] MEDS: guaiFENesin 600 mg ER Tab PO SCH ×2 (08:46→21:24)
[2017-05-30] MEDS: Lactobacillus Acidophilus 500 MU Cap PO SCH ×2 (10:00→17:41)
[2017-05-30] MEDS: POLYETHYLENE GLYCOL 3350 17 GM/Dose PACKET PO SCH ×2 (10:00→17:42)
[2017-05-30] MEDS ORDERED: Iohexol 240 (50 ml) PO ONE (11:59)
--- NOTE | 2017-05-30 13:43 | CP.PCM.CON ---
<Ambika Clark - Last Filed: 05/30/17 13:56> History of Present Illness - History of Present Illness History of Present Illness: PGY4 Initial GI Follow-up Marisa Velez is a 87M w/ a hx of ,and s/p recent lumbar laminectomy L3-L5, now admitted to acute rehab facility at [facility]. Pt complained of constipation and had bloody BM with hard stool. Pt notes that prior to the surgery he had a hx of constipation and post surgery he started to experience abd bloating. He was seen by surgery for evaluation of distented surgery and is being treated for post-op ileus. Pt report BM after receiving laxatives and stool softners, but notes liquid BM. Pt reports his bloating has reduced, though it is still present. He continues to pass flatus. States he feels less uncomfortable than yesterday and notes that he "feels full". Pt denies any vomiting, but does state he has been nauseous and this has reduced his appetite somewhat. Abd Xray revealed dilated colon. PMHx: HTN, aortic stenosis s/p TAVR, PVD, COPD? PSHx: TAVR, L3-l5 laminectomy Social hx: ex smoker, denies drinking, denies illicit drugs Family hx: Denies Endo Hx: colonoscopy in the past, but does not recall when and the result ROS: 12-point ROS conducted neg other than above Past Patient History - Past Medical History & Family History Past Medical History?: Yes - Past Social History Smoking Status: Former Smoker Chewing Tobacco Use: No Cigar Use: No Alcohol: Other (drinks wine daily) Drugs: Denies Home Situation {Lives}: With Family - CARDIAC Hx Circulatory Problems: Yes (BLE Venous Stasis) Hx Hypercholesterolemia: Yes Hx Hypertension: Yes Hx Peripheral Edema: Yes Other/Comment: Aortic valve replacement (TAVR). - PULMONARY Hx Bronchitis: Yes Hx Chronic Obstructive Pulmonary Disease (COPD): Yes Other/Comment: Ex smoker, quit 2 years ago - NEUROLOGICAL Hx Neurological Disorder: No - HEENT Hx HEENT Problems: No - RENAL Hx Chronic Kidney Disease: No - ENDOCRINE/METABOLIC Hx Endocrine Disorders: No - HEMATOLOGICAL/ONCOLOGICAL Hx Blood Disorders: No - INTEGUMENTARY Hx Cellulitis: Yes - MUSCULOSKELETAL/RHEUMATOLOGICAL Hx Back Pain: Yes Hx Falls: No Hx Gout: Yes Hx Spinal Stenosis: Yes (S/P Laminectomy L3-L5 05/15/2017) - GASTROINTESTINAL Hx Gastrointestinal Disorders: No - GENITOURINARY/GYNECOLOGICAL Hx Genitourinary Disorders: No - PSYCHIATRIC Hx Substance Use: No - SURGICAL HISTORY Hx Surgeries: Yes Hx Valve Replacement: Yes (TAVR) Other/Comment: Laminectomy L3-L5 05/15/2017 - ANESTHESIA Hx Anesthesia: Yes Hx Anesthesia Reactions: No Hx Malignant Hyperthermia: No Has any member of the family had a problem w/ anesthesia?: No Meds Allergies/Adverse Reactions: Allergies Allergy/AdvReac Type Severity Reaction Status Date / Time No Known Allergies Allergy Verified 05/18/17 17:15 - Medications Medications: Current Medications Albuterol Sulfate (Albuterol 0.083% Inhal Olivia (2.5 Mg/3 Ml) Ud) 2.5 mg INH RQ4 PRN PRN Reason: Shortness of Breath Albuterol/Ipratropium (Duoneb 3 Mg/0.5 Mg (3 Ml) Ud) 3 ml IH RQID [facility] Last Admin: 05/30/17 11:47 Dose: 3 ml Allopurinol (Zyloprim) 300 mg PO DAILY [facility] Last Admin: 05/30/17 10:00 Dose: 300 mg Atorvastatin Calcium (Lipitor) 20 mg PO HS [facility] Last Admin: 05/29/17 22:10 Dose: 20 mg Bisacodyl (Dulcolax) 10 mg [place] DAILY PRN PRN Reason: Constipation Last Admin: 05/19/17 04:05 Dose: 10 mg Dimethicone (Proshield Plus Skin Protectant) 1 applic TOP Q8 [facility] Last Admin: 05/30/17 06:28 Dose: 1 applic Docusate Sodium (Colace) 100 mg PO TID [facility] Last Admin: 05/30/17 10:00 Dose: 100 mg Enalapril Maleate (Vasotec) 10 mg PO DAILY [facility] Last Admin: 05/30/17 08:46 Dose: 10 mg Guaifenesin (Mucinex La) 600 mg PO Q12 [facility] Last Admin: 05/30/17 08:46 Dose: 600 mg Lactic Acid (Lac-Hydrin 12% Lotion (225 G)) 1 applic TOP 0600 [facility] Last Admin: 05/30/17 06:28 Dose: 1 applic Lactobacillus Acidophilus (Bacid Acidophilus) 1 cap PO BID [facility] Last Admin: 05/30/17 10:00 Dose: 1 cap Magnesium Hydroxide (Milk Of Magnesia) 30 ml PO DAILY PRN PRN Reason: Constipation Last Admin: 05/26/17 18:11 Dose: 30 ml Metoprolol Tartrate (Lopressor) 25 mg PO Q12 [facility] Last Admin: 05/30/17 08:46 Dose: 25 mg Ondansetron HCl (Zofran Inj) 4 mg IVP Q6H PRN PRN Reason: Nausea/Vomiting Pantoprazole Sodium (Protonix Ec Tab) 40 mg PO 0600 [facility] Last Admin: 05/30/17 06:28 Dose: 40 mg Polyethylene Glycol (Miralax) 17 gm PO BID [facility] Last Admin: 05/30/17 10:00 Dose: 17 gm Sennosides (Senokot Tab) 17.2 mg PO HS [facility] Last Admin: 05/29/17 22:09 Dose: 17.2 mg Tramadol HCl (Ultram) 50 mg PO Q4 PRN PRN Reason: pain level 4-10 Physical Exam - Constitutional Appears: Well, Non-toxic - Head Exam Head Exam: ATRAUMATIC, NORMOCEPHALIC - Eye Exam Eye Exam: EOMI, Normal appearance - ENT Exam ENT Exam: Mucous Membranes Moist, Normal Exam - Neck Exam Neck exam: Positive for: Normal Inspection - Respiratory Exam Respiratory Exam: Clear to Auscultation Bilateral, NORMAL BREATHING PATTERN. absent: Rales, Rhonchi, Wheezes, Respiratory Distress - Cardiovascular Exam Cardiovascular Exam: REGULAR RHYTHM, +S1, +S2 - GI/Abdominal Exam GI & Abdominal Exam: Distended, Mass, Normal Bowel Sounds, Rebound, Soft. absent: Guarding, Hernia, Organomegaly, Rigid Additional comments: tympanic - Extremities Exam Extremities exam: Negative for: joint swelling, pedal edema - Neurological Exam Neurological exam: Alert, Oriented x3 - Psychiatric Exam Psychiatric exam: Normal Affect, Normal Mood - Skin Skin Exam: Dry, Intact, Normal Color, Warm Results - Vital Signs Recent Vital Signs: Last Vital Signs Temp 97.7 F 05/30/17 08:21 Pulse 98 H 05/30/17 08:46 Resp 20 05/30/17 08:21 BP 120/65 05/30/17 08:46 Pulse Ox 99 05/30/17 08:21 - Labs Result Diagrams: 05/30/17 05:30 03/03/18 05:30 Labs: Laboratory Results - last 24 hr 05/30/17 05/30/17 05:30 05:30 WBC 6.4 RBC 2.89 L Hgb 9.6 L Hct 28.0 L MCV 96.9 H MCH 33.1 H MCHC 34.2 RDW 14.5 Plt Count 241 Sodium 141 Potassium 3.7 Chloride 105 Carbon Dioxide 29 Anion Gap 11 BUN 10 Creatinine 0.6 L Est GFR ( Amer) > 60 Est GFR (Non-Af Amer) > 60 Random Glucose 135 H Calcium 8.6 Total Bilirubin 0.3 AST 35 ALT 61 Alkaline Phosphatase 69 Total Protein 6.1 L Albumin 3.1 L Globulin 3.0 Albumin/Globulin Ratio 1.0 Assessment & Plan - Assessment and Plan (Free Text) Assessment: Marisa Velez is a 87M w/ hx of aortic valve stenosis,s/p TAVR, HTN, COPD?, s /p recent lumbar laminectomy who is bring seen for abd distention, constipation , and rectal bleeding Colonic distention, etiology uknown, DDx: Acute colonic psuedo-obstruction ( mumtaz's syndrome) vs colonic obstruction vs post op ileus Hx of constipation bloating Plan: -continue miralax BID -will get a ct abd/pelv to rule out colonic obstruction -continue diet as tolerated -encourage mobilization with assistance -avoid narcotics, utilize acetamenophen for pain management and topical agents -if obstruction is present and is distal , will try to manually disimpact, if proximal may be surgical reconsult -will follow d/w Dr. Linaers <Kennedy Linares - Last Filed: 05/30/17 16:48> Meds - Medications Medications: Current Medications Albuterol Sulfate (Albuterol 0.083% Inhal Olivia (2.5 Mg/3 Ml) Ud) 2.5 mg INH RQ4 PRN PRN Reason: Shortness of Breath Albuterol/Ipratropium (Duoneb 3 Mg/0.5 Mg (3 Ml) Ud) 3 ml IH RQID [facility] Last Admin: 05/30/17 16:28 Dose: 3 ml Allopurinol (Zyloprim) 300 mg PO DAILY [facility] Last Admin: 05/30/17 10:00 Dose: 300 mg Atorvastatin Calcium (Lipitor) 20 mg PO HS [facility] Last Admin: 05/29/17 22:10 Dose: 20 mg Bisacodyl (Dulcolax) 10 mg [place] DAILY PRN PRN Reason: Constipation Last Admin: 05/19/17 04:05 Dose: 10 mg Dimethicone (Proshield Plus Skin Protectant) 1 applic TOP Q8 [facility] Last Admin: 05/30/17 06:28 Dose: 1 applic Docusate Sodium (Colace) 100 mg PO TID [facility] Last Admin: 05/30/17 10:00 Dose: 100 mg Enalapril Maleate (Vasotec) 10 mg PO DAILY [facility] Last Admin: 05/30/17 08:46 Dose: 10 mg Guaifenesin (Mucinex La) 600 mg PO Q12 [facility] Last Admin: 05/30/17 08:46 Dose: 600 mg Lactic Acid (Lac-Hydrin 12% Lotion (225 G)) 1 applic TOP 0600 [facility] Last Admin: 05/30/17 06:28 Dose: 1 applic Lactobacillus Acidophilus (Bacid Acidophilus) 1 cap PO BID [facility] Last Admin: 05/30/17 10:00 Dose: 1 cap Magnesium Hydroxide (Milk Of Magnesia) 30 ml PO DAILY PRN PRN Reason: Constipation Last Admin: 05/26/17 18:11 Dose: 30 ml Metoprolol Tartrate (Lopressor) 25 mg PO Q12 [facility] Last Admin: 05/30/17 08:46 Dose: 25 mg Ondansetron HCl (Zofran Inj) 4 mg IVP Q6H PRN PRN Reason: Nausea/Vomiting Pantoprazole Sodium (Protonix Ec Tab) 40 mg PO 0600 [facility] Last Admin: 05/30/17 06:28 Dose: 40 mg Polyethylene Glycol (Miralax) 17 gm PO BID [facility] Last Admin: 05/30/17 10:00 Dose: 17 gm Sennosides (Senokot Tab) 17.2 mg PO HS [facility] Last Admin: 05/29/17 22:09 Dose: 17.2 mg Tramadol HCl (Ultram) 50 mg PO Q4 PRN PRN Reason: pain level 4-10 Results - Vital Signs Recent Vital Signs: Last Vital Signs Temp 97.7 F 05/30/17 08:21 Pulse 98 H 05/30/17 08:46 Resp 20 05/30/17 08:21 BP 120/65 05/30/17 08:46 Pulse Ox 99 05/30/17 08:21 - Labs Result Diagrams: 05/30/17 05:30 05/30/17 05:30 Labs: Laboratory Results - last 24 hr 05/30/17 05/30/17 05:30 05:30 WBC 6.4 RBC 2.89 L Hgb 9.6 L Hct 28.0 L MCV 96.9 H MCH 33.1 H MCHC 34.2 RDW 14.5 Plt Count 241 Sodium 141 Potassium 3.7 Chloride 105 Carbon Dioxide 29 Anion Gap 11 BUN 10 Creatinine 0.6 L Est GFR ( Amer) > 60 Est GFR (Non-Af Amer) > 60 Random Glucose 135 H Calcium 8.6 Total Bilirubin 0.3 AST 35 ALT 61 Alkaline Phosphatase 69 Total Protein 6.1 L Albumin 3.1 L Globulin 3.0 Albumin/Globulin Ratio 1.0 Attending/Attestation - Attestation I have personally seen and examined this patient.: Yes I have fully participated in the care of the patient.: Yes I have reviewed all pertinent clinical information: Yes Notes (Text): 05/30/17 16:47 87 year old male with h/o , recent lumbar laminectomy, we are consulted for abdominal distention and constipatoin, abdominal imaging shows colonic dilation. Recommend CT A/P to evaluate for colonic obstruction or pseudoobstruction. Recommend supportive measures in the meantime. Avoid/ minimize narcotics. Start miralax. Await CT.
--- NOTE | 2017-05-30 14:46 | CP.PCM.PN ---
Subjective - Date & Time of Evaluation Date of Evaluation: 05/30/17 Time of Evaluation: 14:43 - Subjective Subjective: Still with abdominal complaints of bloating. Had some blood admixed with BM and is undergoing GI eval. He does relate a history of hemorrhoids with some blood when wiping after BM. His cough is much less and even when coached there is a significant decrease in congestion. Will continue with current regimen for chronic bronchitis. Objective - Vital Signs/Intake and Output Vital Signs (last 24 hours): Temp Pulse Resp BP Pulse Ox 97.7 F 98 H 20 120/65 99 05/30/17 08:21 05/30/17 08:46 05/30/17 08:21 05/30/17 08:46 05/30/17 08:21 - Medications Medications: Current Medications Albuterol Sulfate (Albuterol 0.083% Inhal Olivia (2.5 Mg/3 Ml) Ud) 2.5 mg INH RQ4 PRN PRN Reason: Shortness of Breath Albuterol/Ipratropium (Duoneb 3 Mg/0.5 Mg (3 Ml) Ud) 3 ml IH RQID [facility] Last Admin: 05/30/17 11:47 Dose: 3 ml Allopurinol (Zyloprim) 300 mg PO DAILY [facility] Last Admin: 05/30/17 10:00 Dose: 300 mg Atorvastatin Calcium (Lipitor) 20 mg PO HS [facility] Last Admin: 05/29/17 22:10 Dose: 20 mg Bisacodyl (Dulcolax) 10 mg [place] DAILY PRN PRN Reason: Constipation Last Admin: 05/19/17 04:05 Dose: 10 mg Dimethicone (Proshield Plus Skin Protectant) 1 applic TOP Q8 [facility] Last Admin: 05/30/17 06:28 Dose: 1 applic Docusate Sodium (Colace) 100 mg PO TID [facility] Last Admin: 05/30/17 10:00 Dose: 100 mg Enalapril Maleate (Vasotec) 10 mg PO DAILY [facility] Last Admin: 05/30/17 08:46 Dose: 10 mg Guaifenesin (Mucinex La) 600 mg PO Q12 [facility] Last Admin: 05/30/17 08:46 Dose: 600 mg Lactic Acid (Lac-Hydrin 12% Lotion (225 G)) 1 applic TOP 0600 [facility] Last Admin: 05/30/17 06:28 Dose: 1 applic Lactobacillus Acidophilus (Bacid Acidophilus) 1 cap PO BID [facility] Last Admin: 05/30/17 10:00 Dose: 1 cap Magnesium Hydroxide (Milk Of Magnesia) 30 ml PO DAILY PRN PRN Reason: Constipation Last Admin: 05/26/17 18:11 Dose: 30 ml Metoprolol Tartrate (Lopressor) 25 mg PO Q12 [facility] Last Admin: 05/30/17 08:46 Dose: 25 mg Ondansetron HCl (Zofran Inj) 4 mg IVP Q6H PRN PRN Reason: Nausea/Vomiting Pantoprazole Sodium (Protonix Ec Tab) 40 mg PO 0600 [facility] Last Admin: 05/30/17 06:28 Dose: 40 mg Polyethylene Glycol (Miralax) 17 gm PO BID [facility] Last Admin: 05/30/17 10:00 Dose: 17 gm Sennosides (Senokot Tab) 17.2 mg PO HS [facility] Last Admin: 05/29/17 22:09 Dose: 17.2 mg Tramadol HCl (Ultram) 50 mg PO Q4 PRN PRN Reason: pain level 4-10 - Labs Labs: 05/30/17 05:30 05/30/17 05:30 Assessment and Plan (1) 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
[2017-05-30] MEDS ORDERED: Sodium Chloride 0.9% 100 ML ONE (15:38)
[2017-05-30] MEDS ORDERED: Iohexol 300 100 ML IJ ONE (15:38)
--- NOTE | 2017-05-30 17:26 | CT ---
PROCEDURE: CT abdomen pelvis dated 05/30/2017 HISTORY: Rule out colonic obstruction COMPARISON: Comparison made with abdominal radiographs dated 05/24/2017 CT scan abdomen pelvis dated 03/20/2012 correlation also made with CT scan chest dated 04/28/2017 which also image the upper abdomen. TECHNIQUE: Contiguous axial images of the abdomen and pelvis. Oral contrast was administered. No IV contrast given. Coronal and Sagittal reformats generated. Radiation dose: Total exam DLP = This CT exam was performed using one or more of the following dose reduction techniques: Automated exposure control, adjustment of the mA and/or kV according to patient size, and/or use of iterative reconstruction technique. FINDINGS: LOWER THORAX: Heart size is enlarged. In situ aortic valve again noted. No significant pericardial effusion. . No evidence of basilar pneumothorax. LIVER: The liver exhibits normal size measuring approximately 17 cm in CC dimension. Very minor diffuse fatty hepatic infiltration. No obvious hepatic mass collection or calcification. Portal and splenic veins are opacified. The santos GALLBLADDER AND BILE DUCTS: Unremarkable. No intraluminal gallbladder calculi. PANCREAS: The pancreas is atrophic and fatty replaced. No obvious pancreatic masses or collections. SPLEEN: Spleen exhibits normal size and attenuation pattern without mass or collection. There are surface calcifications along the lateral margin of the splenic capsule. . Just subjacent to the capsular calcification is a small approximately 2 cm x 0.83 cm elliptical shaped low-attenuation focus attenuation that exhibits Hounsfield units ranging between 25 and 30. This could represent an old subcapsular hematoma with subsequent dystrophic type calcification. Clinical correlation recommended. ADRENALS: No adrenal lesions seen. KIDNEYS AND URETERS: Kidneys demonstrate relatively symmetric nephrograms. No evidence of nephrolithiasis or hydronephrosis. BLADDER: Urinary bladder is incompletely distended which presumably accounts for slight thick-walled appearance. Muscular hypertrophy presumably contributes. REPRODUCTIVE: Prostate gland appears enlarged measuring approximately 5.6 cm in transverse dimension. Prostatic calcifications are present. APPENDIX: Appendix appears unremarkable best seen on axial image number [id number]. No evidence of acute appendicitis. BOWEL: Evaluation of the bowel is slightly limited due to incomplete opacification. The stomach at is partially distended with small amount of oral contrast material and air. Rugal folds are prominent which is likely due to underdistention dual gastritis not excluded. Visualized loops of small bowel exhibit normal contour and caliber. No evidence of acute mechanical small bowel obstruction. There is a large amount of fecal per liquid appearing stool within the distended cecum and ascending colon with a distended air-filled transverse colon transverse colon. The descending colon is mildly distended with air. The sigmoid colon is relatively is less distended with air though somewhat redundant. No evidence to suggest colonic mechanical obstruction. No definitive mural wall thickening. PERITONEUM: Unremarkable. No fluid collection. No free air. Large amount of mesenteric fat suggesting central obesity pattern. Small fat containing umbilical hernia. Bilateral fat containing inguinal hernias are present as well. LYMPH NODES: Unremarkable. No enlarged -bulky lymph nodes. VASCULATURE: Unremarkable. No abdominal aortic or iliac artery aneurysms. Atherosclerotic plaque along the abdominal aorta. BONES: Multilevel degenerative spondylosis of the lower thoracic and lumbar spine. OTHER FINDINGS: None. IMPRESSION: There is marked distention of the cecum, ascending, transverse and to a lesser degree descending colon. Large amount of liquid appearing stool is present within the ascending colon and air throughout most of the rest of the colon. The sigmoid colon is redundant. No evidence to suggest colonic obstruction. Very mild fatty hepatic infiltration. Findings suggest sequela of old trauma with evidence of splenic capsular calcification and possibly an old cyst subcapsular hematoma. Clinical correlation recommended. See above discussion for additional details and findings.
[2017-05-31] MEDS: Pantoprazole 40 mg EC Tab PO SCH (06:35)
[2017-05-31] MEDS: Proshield Plus GEL TOP SCH ×3 (06:35→21:24)
[2017-05-31 06:57] LABS: MEAN CELL VOLUME 96.9 fl (80.0-94.0); RBC 3.12 Mil/uL (4.40-5.90); RED CELL DISTRIBUTION WIDTH 14.7 % (11.5-14.5); WHITE BLOOD COUNT 8.9 K/uL (4.8-10.8)
[2017-05-31 07:09] LABS: ALBUMIN 3.2 g/dL (3.5-5.0); ALT/SGPT 58 U/L (21-72); AST/SGOT 44 U/L (17-59); BLOOD UREA NITROGEN 7 mg/dl (9-20); CALCIUM 8.6 mg/dL (8.4-10.2); GFR AFRICAN-AMERICAN > 60; GFR NON-AFRICAN AMERICAN > 60
[2017-05-31] MEDS: Albuterol-Ipratrop 3 mg / 0.5 (3 ml) UD IH SCH ×4 (08:00→20:00)
--- NOTE | 2017-05-31 08:11 | PN ---
DATE: 05/31/2017 SUBJECTIVE: The patient is seen and examined. Interim events noted. Consults noted and appreciated. Gastroenterology followup and interventions noted and appreciated. The patient remains in Acute Rehab Unit. Feels okay. Denies any abdominal pain, nausea or vomiting. No diarrhea, constipation or any new episodes of bleeding per rectum. PHYSICAL EXAMINATION: GENERAL: The patient is in no acute distress. VITAL SIGNS: Stable. HEART: S1 and S2, normal and regular. LUNGS: Good bilateral air exchange. ABDOMEN: Soft and nontender. No sign of acute abdomen. No guarding. No rigidity. No rebound. Bowel sounds are plus and normal. EXTREMITIES: No edema. No calf swelling. No tenderness. No acute ischemia. 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 DIAGNOSTIC DATA: Available diagnostic data reviewed. PLAN: Overall, the patient's general medical condition is stable. Plan as ordered. Pop Farley MD
[2017-05-31] MEDS: guaiFENesin 600 mg ER Tab PO SCH ×2 (08:48→21:22)
[2017-05-31] MEDS: Lactobacillus Acidophilus 500 MU Cap PO SCH ×2 (08:48→16:48)
[2017-05-31] MEDS: POLYETHYLENE GLYCOL 3350 17 GM/Dose PACKET PO SCH ×2 (09:07→16:48)
--- NOTE | 2017-05-31 12:47 | CP.PCM.PN ---
Addendum entered and electronically signed by Ambika Clark DO 05/31/17 13:10: okay to restart ASA and DVT px lovenox. Previous Rectal bleeding likely hemorrhoidal, no additional episodes notes Original Note: <Ambika Clark - Last Filed: 05/31/17 12:58> Subjective - Date & Time of Evaluation Date of Evaluation: 05/31/17 Time of Evaluation: 08:00 - Subjective Subjective: PGY4 GI follow up Pt seen and examined bedside notes having BM, liquid x3 since yesterday tolerating meals still distented ROS: 10 point ROS conducted, neg other than above Objective - Vital Signs/Intake and Output Vital Signs (last 24 hours): Temp Pulse Resp BP Pulse Ox 97.7 F 90 18 134/71 93 L 05/31/17 08:17 05/31/17 08:48 05/31/17 08:17 05/31/17 08:48 05/31/17 08:17 - Medications Medications: Current Medications Albuterol Sulfate (Albuterol 0.083% Inhal Olivia (2.5 Mg/3 Ml) Ud) 2.5 mg INH RQ4 PRN PRN Reason: Shortness of Breath Albuterol/Ipratropium (Duoneb 3 Mg/0.5 Mg (3 Ml) Ud) 3 ml IH RQID [facility] Last Admin: 05/31/17 11:15 Dose: 3 ml Allopurinol (Zyloprim) 300 mg PO DAILY [facility] Last Admin: 05/31/17 08:47 Dose: 300 mg Atorvastatin Calcium (Lipitor) 20 mg PO HS [facility] Last Admin: 05/30/17 21:24 Dose: 20 mg Bisacodyl (Dulcolax) 10 mg [place] DAILY PRN PRN Reason: Constipation Last Admin: 05/19/17 04:05 Dose: 10 mg Dimethicone (Proshield Plus Skin Protectant) 1 applic TOP Q8 [facility] Last Admin: 05/31/17 06:35 Dose: 1 applic Docusate Sodium (Colace) 100 mg PO TID [facility] Last Admin: 05/31/17 08:47 Dose: 100 mg Enalapril Maleate (Vasotec) 10 mg PO DAILY [facility] Last Admin: 05/31/17 08:48 Dose: 10 mg Guaifenesin (Mucinex La) 600 mg PO Q12 [facility] Last Admin: 05/31/17 08:48 Dose: 600 mg Lactic Acid (Lac-Hydrin 12% Lotion (225 G)) 1 applic TOP 0600 [facility] Last Admin: 05/31/17 06:35 Dose: 1 applic Lactobacillus Acidophilus (Bacid Acidophilus) 1 cap PO BID [facility] Last Admin: 05/31/17 08:48 Dose: 1 cap Magnesium Hydroxide (Milk Of Magnesia) 30 ml PO DAILY PRN PRN Reason: Constipation Last Admin: 05/26/17 18:11 Dose: 30 ml Metoprolol Tartrate (Lopressor) 25 mg PO Q12 [facility] Last Admin: 05/31/17 08:48 Dose: 25 mg Ondansetron HCl (Zofran Inj) 4 mg IVP Q6H PRN PRN Reason: Nausea/Vomiting Pantoprazole Sodium (Protonix Ec Tab) 40 mg PO 0600 [facility] Last Admin: 05/31/17 06:35 Dose: 40 mg Polyethylene Glycol (Miralax) 17 gm PO BID [facility] Last Admin: 05/31/17 09:07 Dose: 17 gm Sennosides (Senokot Tab) 17.2 mg PO HS [facility] Last Admin: 05/30/17 21:24 Dose: 17.2 mg Tramadol HCl (Ultram) 50 mg PO Q4 PRN PRN Reason: pain level 4-10 - Labs Labs: 05/31/17 05:30 05/31/17 05:30 - Constitutional Appears: Well, No Acute Distress - Head Exam Head Exam: ATRAUMATIC, NORMOCEPHALIC - Eye Exam Eye Exam: Normal appearance - ENT Exam ENT Exam: Mucous Membranes Moist, Normal Exam - Neck Exam Neck Exam: Normal Inspection - Respiratory Exam Respiratory Exam: Clear to Ausculation Bilateral, NORMAL BREATHING PATTERN. absent: Rhonchi, Wheezes, Respiratory Distress - Cardiovascular Exam Cardiovascular Exam: REGULAR RHYTHM, +S1, +S2 - GI/Abdominal Exam GI & Abdominal Exam: Distended, Normal Bowel Sounds. absent: Firm, Guarding, Rigid, Tenderness - Extremities Exam Extremities Exam: Pedal Edema. absent: Joint Swelling - Neurological Exam Neurological Exam: Alert, Awake, Oriented x3 - Psychiatric Exam Psychiatric exam: Normal Affect, Normal Mood - Skin Skin Exam: Dry, Intact, Normal Color, Warm Assessment and Plan - Assessment and Plan (Free Text) Assessment: Marisa Velez is a 87M w/ hx of aortic valve stenosis,s/p TAVR, HTN, COPD?, s /p recent lumbar laminectomy who is bring seen for abd distention, constipation , and rectal bleeding. CT abd revealed marked distention of cecm and ascending with liquid stool and air in trasverse with redundant sigmoid Colonic distention etiology unknown; ddx: neurological due to post op laminectomy vs obstruction vs ogilvies Hx of constipation bloating Post op laminectomecy lumbar, fluid collection at surgical site, normal post op? Plan: -continue miralax BID -recommend flex sig -NPO after midnight for possible flex sig tomorrow vs Tues -consider ortho reeval for post-op fluid collection at surgical site, possible correlation between spinal nerve compression and colonic distention? -no need for enema or prep at this time -diet as tolerated -avoid narcotics d/w Dr. Linares <Kennedy Linares - Last Filed: 05/31/17 15:40> Objective - Vital Signs/Intake and Output Vital Signs (last 24 hours): Temp Pulse Resp BP Pulse Ox 97.7 F 90 18 134/71 93 L 05/31/17 08:17 05/31/17 08:48 05/31/17 08:17 05/31/17 08:48 05/31/17 08:17 - Medications Medications: Current Medications Albuterol Sulfate (Albuterol 0.083% Inhal Olivia (2.5 Mg/3 Ml) Ud) 2.5 mg INH RQ4 PRN PRN Reason: Shortness of Breath Albuterol/Ipratropium (Duoneb 3 Mg/0.5 Mg (3 Ml) Ud) 3 ml IH RQID [facility] Last Admin: 05/31/17 11:15 Dose: 3 ml Allopurinol (Zyloprim) 300 mg PO DAILY [facility] Last Admin: 05/31/17 08:47 Dose: 300 mg Aspirin (Ecotrin) 81 mg PO DAILY [facility] Atorvastatin Calcium (Lipitor) 20 mg PO HS [facility] Last Admin: 05/30/17 21:24 Dose: 20 mg Bisacodyl (Dulcolax) 10 mg [place] DAILY PRN PRN Reason: Constipation Last Admin: 05/19/17 04:05 Dose: 10 mg Dimethicone (Proshield Plus Skin Protectant) 1 applic TOP Q8 [facility] Last Admin: 05/31/17 14:11 Dose: 1 applic Docusate Sodium (Colace) 100 mg PO TID [facility] Last Admin: 05/31/17 14:09 Dose: 100 mg Enalapril Maleate (Vasotec) 10 mg PO DAILY [facility] Last Admin: 05/31/17 08:48 Dose: 10 mg Enoxaparin Sodium (Lovenox) 40 mg SC DAILY [facility] PRN Reason: Protocol Guaifenesin (Mucinex La) 600 mg PO Q12 [facility] Last Admin: 05/31/17 08:48 Dose: 600 mg Lactic Acid (Lac-Hydrin 12% Lotion (225 G)) 1 applic TOP 0600 [facility] Last Admin: 05/31/17 06:35 Dose: 1 applic Lactobacillus Acidophilus (Bacid Acidophilus) 1 cap PO BID [facility] Last Admin: 05/31/17 08:48 Dose: 1 cap Magnesium Hydroxide (Milk Of Magnesia) 30 ml PO DAILY PRN PRN Reason: Constipation Last Admin: 05/26/17 18:11 Dose: 30 ml Metoprolol Tartrate (Lopressor) 25 mg PO Q12 [facility] Last Admin: 05/31/17 08:48 Dose: 25 mg Ondansetron HCl (Zofran Inj) 4 mg IVP Q6H PRN PRN Reason: Nausea/Vomiting Pantoprazole Sodium (Protonix Ec Tab) 40 mg PO 0600 [facility] Last Admin: 05/31/17 06:35 Dose: 40 mg Polyethylene Glycol (Miralax) 17 gm PO BID [facility] Last Admin: 05/31/17 09:07 Dose: 17 gm Sennosides (Senokot Tab) 17.2 mg PO HS [facility] Last Admin: 05/30/17 21:24 Dose: 17.2 mg Tramadol HCl (Ultram) 50 mg PO Q4 PRN PRN Reason: pain level 4-10 - Labs Labs: 05/31/17 05:30 05/31/17 05:30 Attending/Attestation - Attestation I have personally seen and examined this patient.: Yes I have fully participated in the care of the patient.: Yes I have reviewed all pertinent clinical information, including history, physical exam and plan: Yes Notes (Text): 05/31/17 15:37 87 year old male with h/o s/p TAVR, HTN, COPD, recent lumbar laminectomy now with post op colonic dilation and dysfunction. There is new onset diffuse colonic dilation with a transition point in the left colon, although no lesion identified. Suspect this is a consequence of surgery. He has an apparent lumbar fluid collection at the surgical site. Would recommend ortho evaluation of this site/CT scan. Would recommend neurological evaluation for possible cauda equina syndrome with bowel dysfunction. Will consider sigmoidioscopy in the next 1-2 days to r/o colonic pathology, but suspect this problem is neurological and related to recent surgery.
[2017-06-01] MEDS: Pantoprazole 40 mg EC Tab PO SCH ×2 (07:09→07:12)
[2017-06-01] MEDS: Proshield Plus GEL TOP SCH ×3 (07:09→21:33)
--- NOTE | 2017-06-01 08:06 | CP.PCM.PN ---
<Shon Calle - Last Filed: 06/01/17 08:03> Subjective - Date & Time of Evaluation Date of Evaluation: 06/01/17 Time of Evaluation: 07:00 - Subjective Subjective: PGY5 GI Fellow Progress Note Patient seen and examined bedside this morning. The patient continues to complain of loose, watery stool and abdominal distention despite laxative therapy. Admits he is passing flatus and denies any mojgan abdominal pain at this time. No events overnight. 12 system ROS performed and negative except where stated. Objective - Vital Signs/Intake and Output Vital Signs (last 24 hours): Temp Pulse Resp BP Pulse Ox 97.2 F L 82 20 118/60 98 05/31/17 19:57 05/31/17 21:23 05/31/17 19:57 05/31/17 21:23 05/31/17 19:57 - Medications Medications: Current Medications Albuterol Sulfate (Albuterol 0.083% Inhal Olivia (2.5 Mg/3 Ml) Ud) 2.5 mg INH RQ4 PRN PRN Reason: Shortness of Breath Albuterol/Ipratropium (Duoneb 3 Mg/0.5 Mg (3 Ml) Ud) 3 ml IH RQID [facility] Last Admin: 05/31/17 20:00 Dose: Not Given Allopurinol (Zyloprim) 300 mg PO DAILY [facility] Last Admin: 05/31/17 08:47 Dose: 300 mg Aspirin (Ecotrin) 81 mg PO DAILY [facility] Atorvastatin Calcium (Lipitor) 20 mg PO HS [facility] Last Admin: 05/31/17 21:22 Dose: 20 mg Bisacodyl (Dulcolax) 10 mg [place] DAILY PRN PRN Reason: Constipation Last Admin: 05/19/17 04:05 Dose: 10 mg Dimethicone (Proshield Plus Skin Protectant) 1 applic TOP Q8 [facility] Last Admin: 06/01/17 07:09 Dose: 1 applic Docusate Sodium (Colace) 100 mg PO TID [facility] Last Admin: 05/31/17 16:48 Dose: 100 mg Enalapril Maleate (Vasotec) 10 mg PO DAILY [facility] Last Admin: 05/31/17 08:48 Dose: 10 mg Enoxaparin Sodium (Lovenox) 40 mg SC DAILY [facility] PRN Reason: Protocol Guaifenesin (Mucinex La) 600 mg PO Q12 [facility] Last Admin: 05/31/17 21:22 Dose: 600 mg Lactic Acid (Lac-Hydrin 12% Lotion (225 G)) 1 applic TOP 0600 [facility] Last Admin: 06/01/17 07:08 Dose: 1 applic Lactobacillus Acidophilus (Bacid Acidophilus) 1 cap PO BID [facility] Last Admin: 05/31/17 16:48 Dose: 1 cap Magnesium Hydroxide (Milk Of Magnesia) 30 ml PO DAILY PRN PRN Reason: Constipation Last Admin: 05/26/17 18:11 Dose: 30 ml Metoprolol Tartrate (Lopressor) 25 mg PO Q12 [facility] Last Admin: 05/31/17 21:23 Dose: 25 mg Ondansetron HCl (Zofran Inj) 4 mg IVP Q6H PRN PRN Reason: Nausea/Vomiting Pantoprazole Sodium (Protonix Ec Tab) 40 mg PO 0600 [facility] Last Admin: 06/01/17 07:12 Dose: Not Given Polyethylene Glycol (Miralax) 17 gm PO BID [facility] Last Admin: 05/31/17 16:48 Dose: 17 gm Sennosides (Senokot Tab) 17.2 mg PO HS [facility] Last Admin: 05/31/17 21:24 Dose: 17.2 mg Tramadol HCl (Ultram) 50 mg PO Q4 PRN PRN Reason: pain 4-10/10. - Labs Labs: 05/31/17 05:30 05/31/17 05:30 - Constitutional Appears: Non-toxic, No Acute Distress - Eye Exam Eye Exam: EOMI, PERRL - ENT Exam ENT Exam: Mucous Membranes Moist - Respiratory Exam Respiratory Exam: Clear to Ausculation Bilateral. absent: Rales, Rhonchi, Wheezes - Cardiovascular Exam Cardiovascular Exam: RRR, +S1, +S2 - GI/Abdominal Exam GI & Abdominal Exam: Distended, Soft, Normal Bowel Sounds. absent: Firm, Guarding, Rigid, Tenderness, Hernia, Organomegaly Additional comments: diffusely tympanic - Extremities Exam Extremities Exam: Normal Inspection. absent: Pedal Edema - Neurological Exam Neurological Exam: Alert, Awake, Oriented x3 - Psychiatric Exam Psychiatric exam: Normal Affect, Normal Mood - Skin Skin Exam: Dry, Warm Assessment and Plan - Assessment and Plan (Free Text) Assessment: Patient is an 87yo male with PMHx significant for aortic valve stenosis s/p TAVR , HTN, COPD and recent decompressive laminectomy of L3-5 with excision of HNP L4 -5 on 05/15/17 who complains of abdominal distention and constipation. -Constipation R/O mechanical obstruction vs functional or neurological etiologies Plan: -Would continue patient on liquid diet -Tap water enema BID today and again tomorrow morning -Plan for non-urgent flexible sigmoidoscopy tomorrow -NPO past midnight -Avoid opiate narcotics at this time as this will slow bowel transit -Avoid stimulant laxatives where possible -Continue Miralax 17g PO BID <Julio Cesar Sheppard - Last Filed: 06/01/17 16:39> Objective - Vital Signs/Intake and Output Vital Signs (last 24 hours): Temp Pulse Resp BP Pulse Ox 97.7 F 84 22 135/74 97 06/01/17 10:00 06/01/17 10:00 06/01/17 10:00 06/01/17 10:00 06/01/17 10:00 - Medications Medications: Current Medications Albuterol Sulfate (Albuterol 0.083% Inhal Olivia (2.5 Mg/3 Ml) Ud) 2.5 mg INH RQ4 PRN PRN Reason: Shortness of Breath Albuterol/Ipratropium (Duoneb 3 Mg/0.5 Mg (3 Ml) Ud) 3 ml IH RQID [facility] Last Admin: 06/01/17 15:16 Dose: 3 ml Allopurinol (Zyloprim) 300 mg PO DAILY [facility] Last Admin: 06/01/17 08:12 Dose: Not Given Aspirin (Ecotrin) 81 mg PO DAILY [facility] Last Admin: 06/01/17 08:11 Dose: Not Given Atorvastatin Calcium (Lipitor) 20 mg PO HS [facility] Last Admin: 05/31/17 21:22 Dose: 20 mg Bisacodyl (Dulcolax) 10 mg [place] DAILY PRN PRN Reason: Constipation Last Admin: 05/19/17 04:05 Dose: 10 mg Dimethicone (Proshield Plus Skin Protectant) 1 applic TOP Q8 [facility] Last Admin: 06/01/17 13:30 Dose: 1 applic Docusate Sodium (Colace) 100 mg PO TID [facility] Last Admin: 06/01/17 16:08 Dose: 100 mg Enalapril Maleate (Vasotec) 10 mg PO DAILY [facility] Last Admin: 06/01/17 08:12 Dose: Not Given Enoxaparin Sodium (Lovenox) 40 mg SC DAILY [facility] PRN Reason: Protocol Last Admin: 06/01/17 08:10 Dose: 40 mg Guaifenesin (Mucinex La) 600 mg PO Q12 [facility] Last Admin: 06/01/17 08:12 Dose: Not Given Lactic Acid (Lac-Hydrin 12% Lotion (225 G)) 1 applic TOP 0600 [facility] Last Admin: 06/01/17 07:08 Dose: 1 applic Lactobacillus Acidophilus (Bacid Acidophilus) 1 cap PO BID [facility] Last Admin: 06/01/17 16:07 Dose: 1 cap Magnesium Hydroxide (Milk Of Magnesia) 30 ml PO DAILY PRN PRN Reason: Constipation Last Admin: 05/26/17 18:11 Dose: 30 ml Metoprolol Tartrate (Lopressor) 25 mg PO Q12 [facility] Last Admin: 06/01/17 08:11 Dose: Not Given Ondansetron HCl (Zofran Inj) 4 mg IVP Q6H PRN PRN Reason: Nausea/Vomiting Pantoprazole Sodium (Protonix Ec Tab) 40 mg PO 0600 [facility] Last Admin: 06/01/17 07:12 Dose: Not Given Polyethylene Glycol (Miralax) 17 gm PO BID [facility] Last Admin: 06/01/17 16:08 Dose: 17 gm Tramadol HCl (Ultram) 50 mg PO Q4 PRN PRN Reason: pain 4-10/10. - Labs Labs: 05/31/17 05:30 05/31/17 05:30 Attending/Attestation - Attestation I have personally seen and examined this patient.: Yes I have fully participated in the care of the patient.: Yes I have reviewed all pertinent clinical information, including history, physical exam and plan: Yes Notes (Text): 06/01/17 16:30 Patient seen and examined at bedside. This is a 87 year old male with h/o s/ p TAVR, HTN, COPD, recent lumbar laminectomy now with post op colonic dilation and dysfunction. There is new onset diffuse colonic dilation with a transition point in the left colon, although no lesion identified. Discussed with surgeon Dr Mg- may be a component of [place] syndrome. Scheduled for sigmoidoscopy/ colonoscopy tomorrow. Continue clear liquid diet. NPO past midnight
[2017-06-01] MEDS: Lactobacillus Acidophilus 500 MU Cap PO SCH ×2 (08:11→16:07)
[2017-06-01] MEDS: POLYETHYLENE GLYCOL 3350 17 GM/Dose PACKET PO SCH ×2 (08:12→16:08)
[2017-06-01] MEDS: guaiFENesin 600 mg ER Tab PO SCH ×2 (08:12→21:33)
[2017-06-01] MEDS: Albuterol-Ipratrop 3 mg / 0.5 (3 ml) UD IH SCH ×4 (08:47→19:21)
[2017-06-01] MEDS ORDERED: Enoxaparin 40 mg Syringe SC SCH (09:00)
--- NOTE | 2017-06-01 10:07 | PN ---
ADDENDUM IMPRESSION AND PLAN: Overall,the patient is clinically stable. No sign of acute or worse bleeding. The patient is hemodynamically stable. Plan as ordered. Case and plan discussed with the patient. DATE: 06/01/2017 SUBJECTIVE: The patient is seen and examined. Interim events noted. Consults noted and appreciated. Gastroenterology followup and interventions noted and appreciated. The patient remains in Acute Rehab Unit. Sleepy and arousable. Denies any specific complaint. No bloody stool reported by staff. PHYSICAL EXAMINATION: GENERAL: The patient is in no acute distress. VITAL SIGNS: Stable. No orthostatic change. HEART: S1 and S2, normal and regular. LUNGS: Good bilateral air exchange. ABDOMEN: Soft and nontender. EXTREMITIES: No edema. No . CENTRAL NERVOUS SYSTEM: Exam is essentially unchanged. DIAGNOSTIC DATA: Available diagnostic data reviewed. ASSESSMENT AND PLAN: Overall, the patient . Pop Farley MD MTDJose
[2017-06-01] MEDS ORDERED: Peg-Electrolyte Oral Soln 4L (Golytely) PO ONE (15:00)
[2017-06-02] MEDS: Pantoprazole 40 mg EC Tab PO SCH (05:42)
[2017-06-02] MEDS: Proshield Plus GEL TOP SCH (06:31)
[2017-06-02 06:56] LABS: HEMOGLOBIN 10.1 g/dL (12.0-18.0); MEAN CELL VOLUME 96.8 fl (80.0-94.0); MEAN CORPUSCULAR HEMOGLOBIN 31.7 pg (27.0-31.0); MEAN CORPUSCULAR HGB CONC 32.7 g/dL (33.0-37.0); RBC 3.18 Mil/uL (4.40-5.90); RED CELL DISTRIBUTION WIDTH 14.3 % (11.5-14.5); WHITE BLOOD COUNT 6.9 K/uL (4.8-10.8)
[2017-06-02 07:14] LABS: ALB/GLOB RATIO 1.1 (1.0-2.1); ALBUMIN 3.2 g/dL (3.5-5.0); ALT/SGPT 56 U/L (21-72); AST/SGOT 27 U/L (17-59); BLOOD UREA NITROGEN 8 mg/dl (9-20); CALCIUM 8.5 mg/dL (8.4-10.2); GFR AFRICAN-AMERICAN > 60; GFR NON-AFRICAN AMERICAN > 60
[2017-06-02] MEDS ORDERED: Lactated Ringer's 1,000 ML IV ONE (07:38)
[2017-06-02] MEDS: Albuterol-Ipratrop 3 mg / 0.5 (3 ml) UD IH SCH ×3 (07:41→15:25)
[2017-06-02] MEDS: POLYETHYLENE GLYCOL 3350 17 GM/Dose PACKET PO SCH (08:34)
[2017-06-02] MEDS: Lactobacillus Acidophilus 500 MU Cap PO SCH (08:34)
[2017-06-02] MEDS: guaiFENesin 600 mg ER Tab PO SCH (08:35)
[2017-06-02] MEDS ORDERED: Propofol 10 mg/ml Inj (20 ML) ONE (09:02)
[2017-06-02] MEDS ORDERED: Lidocaine PF 2% (5 ml) Inj (For Cardiac Arrhy) IV ONE (09:02)
[2017-06-02] MEDS ORDERED: Etomidate 20 mg/10ml Inj IV ONE (09:02)
[2017-06-02 10:11] VITALS: BP 144/74; PULSE 77; RESP 20; TEMP 98.6; O2SAT 95
--- NOTE | 2017-06-02 10:38 | CP.PCM.PN ---
Subjective - Date & Time of Evaluation Date of Evaluation: 06/02/17 Time of Evaluation: 10:36 - Subjective Subjective: Lying in bed, comfortable after having had colonoscopy earlier this morning. Abdomen does feel soft and is not distended today. He offers no complaint of cough or dyspnea at rest. His breath sounds are diminished bilaterally with few rhonchi and medium rales in dependant regions of both lungs. No audible wheezing or bronchial breathing. No rubs. Stable respiratory status. Continue current aerosol therapy and Mucinex. On discharge he may be prescribed Anoro Ellipta once daily with a rescue inhaler as needed. Objective - Vital Signs/Intake and Output Vital Signs (last 24 hours): Temp Pulse Resp BP Pulse Ox 98.6 F 77 20 144/74 95 06/02/17 10:00 06/02/17 10:00 06/02/17 10:00 06/02/17 10:00 06/02/17 10:00 Intake and Output: 06/01/17 06/02/17 23:59 11:59 Intake Total 160 Balance 160 - Medications Medications: Current Medications Albuterol Sulfate (Albuterol 0.083% Inhal Olivia (2.5 Mg/3 Ml) Ud) 2.5 mg INH RQ4 PRN PRN Reason: Shortness of Breath Albuterol/Ipratropium (Duoneb 3 Mg/0.5 Mg (3 Ml) Ud) 3 ml IH RQID [facility] Last Admin: 06/02/17 07:41 Dose: Not Given Allopurinol (Zyloprim) 300 mg PO DAILY [facility] Last Admin: 06/02/17 08:35 Dose: Not Given Aspirin (Ecotrin) 81 mg PO DAILY [facility] Last Admin: 06/02/17 08:34 Dose: Not Given Atorvastatin Calcium (Lipitor) 20 mg PO HS [facility] Last Admin: 06/01/17 21:33 Dose: 20 mg Bisacodyl (Dulcolax) 10 mg [place] DAILY PRN PRN Reason: Constipation Last Admin: 05/19/17 04:05 Dose: 10 mg Dimethicone (Proshield Plus Skin Protectant) 1 applic TOP Q8 [facility] Last Admin: 06/02/17 06:31 Dose: Not Given Docusate Sodium (Colace) 100 mg PO TID [facility] Last Admin: 06/02/17 08:34 Dose: Not Given Enalapril Maleate (Vasotec) 10 mg PO DAILY [facility] Last Admin: 06/02/17 08:35 Dose: Not Given Enoxaparin Sodium (Lovenox) 40 mg SC DAILY [facility] PRN Reason: Protocol Last Admin: 06/01/17 08:10 Dose: 40 mg Guaifenesin (Mucinex La) 600 mg PO Q12 [facility] Last Admin: 06/02/17 08:35 Dose: Not Given Lactic Acid (Lac-Hydrin 12% Lotion (225 G)) 1 applic TOP 0600 [facility] Last Admin: 06/02/17 06:29 Dose: Not Given Lactobacillus Acidophilus (Bacid Acidophilus) 1 cap PO BID [facility] Last Admin: 06/02/17 08:34 Dose: Not Given Magnesium Hydroxide (Milk Of Magnesia) 30 ml PO DAILY PRN PRN Reason: Constipation Last Admin: 05/26/17 18:11 Dose: 30 ml Metoprolol Tartrate (Lopressor) 25 mg PO Q12 [facility] Last Admin: 06/02/17 08:34 Dose: Not Given Ondansetron HCl (Zofran Inj) 4 mg IVP Q6H PRN PRN Reason: Nausea/Vomiting Pantoprazole Sodium (Protonix Ec Tab) 40 mg PO 0600 [facility] Last Admin: 06/02/17 05:42 Dose: Not Given Polyethylene Glycol (Miralax) 17 gm PO BID [facility] Last Admin: 06/02/17 08:34 Dose: Not Given Tramadol HCl (Ultram) 50 mg PO Q4 PRN PRN Reason: pain 4-10/10. - Labs Labs: 06/02/17 05:25 06/02/17 05:25 Assessment and Plan (1) 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
--- NOTE | 2017-06-02 14:03 | CP.PCM.PN ---
Subjective - Date & Time of Evaluation Date of Evaluation: 06/02/17 Time of Evaluation: 14:01 - Subjective Subjective: Patient seen in the room, feels good denies sob/cp had colonoscopy and it went well, good prep. I spoke with Dr Sheppard and everything was normal. He has a low potassium though and it does not appear safe for d/c home so he will go to the ER. He has made excellent gains in therapy. I have spoken with Dr Branch at length Objective - Vital Signs/Intake and Output Vital Signs (last 24 hours): Temp Pulse Resp BP Pulse Ox 98.6 F 77 20 144/74 95 06/02/17 10:00 06/02/17 10:00 06/02/17 10:00 06/02/17 10:00 06/02/17 10:00 Intake and Output: 06/02/17 06/02/17 06:59 18:59 Intake Total 160 Balance 160 - Medications Medications: Current Medications Albuterol Sulfate (Albuterol 0.083% Inhal Olivia (2.5 Mg/3 Ml) Ud) 2.5 mg INH RQ4 PRN PRN Reason: Shortness of Breath Albuterol/Ipratropium (Duoneb 3 Mg/0.5 Mg (3 Ml) Ud) 3 ml IH RQID [facility] Last Admin: 06/02/17 11:21 Dose: 3 ml Allopurinol (Zyloprim) 300 mg PO DAILY [facility] Last Admin: 06/02/17 08:35 Dose: Not Given Aspirin (Ecotrin) 81 mg PO DAILY [facility] Last Admin: 06/02/17 08:34 Dose: Not Given Atorvastatin Calcium (Lipitor) 20 mg PO HS [facility] Last Admin: 06/01/17 21:33 Dose: 20 mg Bisacodyl (Dulcolax) 10 mg [place] DAILY PRN PRN Reason: Constipation Last Admin: 05/19/17 04:05 Dose: 10 mg Dimethicone (Proshield Plus Skin Protectant) 1 applic TOP Q8 [facility] Last Admin: 06/02/17 06:31 Dose: Not Given Docusate Sodium (Colace) 100 mg PO TID [facility] Last Admin: 06/02/17 12:27 Dose: 100 mg Enalapril Maleate (Vasotec) 10 mg PO DAILY [facility] Last Admin: 06/02/17 08:35 Dose: Not Given Enoxaparin Sodium (Lovenox) 40 mg SC DAILY [facility] PRN Reason: Protocol Last Admin: 06/01/17 08:10 Dose: 40 mg Guaifenesin (Mucinex La) 600 mg PO Q12 [facility] Last Admin: 06/02/17 08:35 Dose: Not Given Lactic Acid (Lac-Hydrin 12% Lotion (225 G)) 1 applic TOP 0600 [facility] Last Admin: 06/02/17 06:29 Dose: Not Given Lactobacillus Acidophilus (Bacid Acidophilus) 1 cap PO BID [facility] Last Admin: 06/02/17 08:34 Dose: Not Given Magnesium Hydroxide (Milk Of Magnesia) 30 ml PO DAILY PRN PRN Reason: Constipation Last Admin: 05/26/17 18:11 Dose: 30 ml Metoprolol Tartrate (Lopressor) 25 mg PO Q12 [facility] Last Admin: 06/02/17 08:34 Dose: Not Given Ondansetron HCl (Zofran Inj) 4 mg IVP Q6H PRN PRN Reason: Nausea/Vomiting Pantoprazole Sodium (Protonix Ec Tab) 40 mg PO 0600 [facility] Last Admin: 06/02/17 05:42 Dose: Not Given Polyethylene Glycol (Miralax) 17 gm PO BID [facility] Last Admin: 06/02/17 08:34 Dose: Not Given Tramadol HCl (Ultram) 50 mg PO Q4 PRN PRN Reason: pain 4-10/10. - Labs Labs: 06/02/17 05:25 06/02/17 05:25
[2017-06-02] MEDS ORDERED: Potassium Chloride 10 mEq ER Tab PO STA (14:21)
--- NOTE | 2017-06-02 21:15 | CP.PCM.PN ---
Subjective - Date & Time of Evaluation Date of Evaluation: 06/02/17 Time of Evaluation: 22:22 - Subjective Subjective: Improved Objective - Vital Signs/Intake and Output Vital Signs (last 24 hours): Temp Pulse Resp BP Pulse Ox 98.6 F 77 20 144/74 95 06/02/17 10:00 06/02/17 10:00 06/02/17 10:00 06/02/17 10:00 06/02/17 10:00 Intake and Output: 06/02/17 06/03/17 18:59 06:59 Intake Total 160 Balance 160 - Labs Labs: 06/02/17 05:25 06/02/17 05:25 - Respiratory Exam Respiratory Exam: NORMAL BREATHING PATTERN - Cardiovascular Exam Cardiovascular Exam: REGULAR RHYTHM - GI/Abdominal Exam GI & Abdominal Exam: Normal Bowel Sounds Assessment and Plan - Assessment and Plan (Free Text) Assessment: S/P Low back surgery POD#16 (Severe Spinal Stenosis) PT Incentive spirometry Pain medication Physiatry Post operative illeus improving As per GI OOB PT D/C opiods COPD Smoker Pulmonary HTN Prediabetes S/P TAVR Cardiology
== END 2017-06-02 16:05 | disposition home or self-care (01) | DRG 560 ==
PROVIDERS: ADMIT Family Medicine Geriatric Medicine; ATTEND Family Medicine Geriatric Medicine
PROC: F08Z1FZ Dressing Techniques Treatment using Assistive, Adaptive, Supportive or Protective Equipment (ICD-10-PCS; principal; 2017-05-18)
PROC: F08Z0FZ Bathing/Showering Techniques Treatment using Assistive, Adaptive, Supportive or Protective Equipment (ICD-10-PCS; 2017-05-18)
PROC: F07Z9FZ Gait Training/Functional Ambulation Treatment using Assistive, Adaptive, Supportive or Protective Equipment (ICD-10-PCS; 2017-05-18)
PROC: F07L6FZ Therapeutic Exercise Treatment of Musculoskeletal System - Lower Back / Lower Extremity using Assistive, Adaptive, Supportive or Protective Equipment (ICD-10-PCS; 2017-05-18)
PROC: F07Z8FZ Transfer Training Treatment using Assistive, Adaptive, Supportive or Protective Equipment (ICD-10-PCS; 2017-05-18)
PROC: F07Z5ZZ Bed Mobility Treatment (ICD-10-PCS; 2017-05-18)
PROC: 5A0955Z Assistance with Respiratory Ventilation, Greater than 96 Consecutive Hours (ICD-10-PCS; 2017-05-18)
DX: Z47.89 Encounter for other orthopedic aftercare (principal); K56.7 Ileus, unspecified; K59.39 Other megacolon; J44.9 Chronic obstructive pulmonary disease, unspecified; E78.00 Pure hypercholesterolemia, unspecified; I10 Essential (primary) hypertension; Z95.2 Presence of prosthetic heart valve; I87.8 Other specified disorders of veins; E78.5 Hyperlipidemia, unspecified; K59.00 Constipation, unspecified; M10.9 Gout, unspecified; G89.29 Other chronic pain; R73.03 Prediabetes

== ENCOUNTER 2018-01-27 10:13 | Inpatient (IN) | payer MEDICARE, OTHER ==
[2018-01-27] MEDS ORDERED: Albuterol 0.083% Inhal Sol (2.5 mg/3 mL) UD INH STA (10:53)
--- NOTE | 2018-01-27 10:56 | ED PDOC ---
HPI: SOB/CHF/COPD Time Seen by Provider: 01/27/18 10:41 Chief Complaint (Nursing): Shortness Of Breath Chief Complaint (Provider): Shortness Of Breath History Per: Patient History/Exam Limitations: no limitations Onset/Duration Of Symptoms: Other (x1 month) Current Symptoms Are (Timing): Still Present Additional Complaint(s): 87 year old male, with a PMHx of COPD, bronchitis, HTN, and hypercholesterolemia, presenting for evaluation of shortness of breath x1 month. Patient reports he went to Dr. Branch's office today for evaluation of shortness of breath and was instructed to present to the ED because his symptoms haven't been improving. Patient reports shortness of breath ongoing for the past month that is usually worse when walking. Patient states it feels more like difficulty breathing and is complaining of a mild dry cough. Patient denies any chest pain, syncope, fevers, abdominal pain, vomiting, or dizziness. Patient also reports chronic bilateral leg swelling, but states he noticed redness on his legs bilaterally for the past couple of weeks. Patient denies any associated pain. Of note, patient is supposed to be on O2 at home but refuses to use it. Patient also reports that he used to be on water pills, but states he is no longer on them. PMD: Dr. Branch Past Medical History Reviewed: Historical Data, Nursing Documentation, Vital Signs Vital Signs: Last Vital Signs Temp 97.7 F 01/27/18 10:22 Pulse 79 01/27/18 10:22 Resp 21 01/27/18 10:22 BP 156/63 H 01/27/18 10:22 Pulse Ox 94 L 01/27/18 10:47 - Medical History PMH: Bronchitis, COPD, HTN, Hypercholesterolemia, Peripheral Edema Denies: Chronic Kidney Disease Other PMH: Bilateral Venous Stasis - Surgical History Surgical History: Back Surgery (Laminectomy L3-L5 05/15/2017) Other surgeries: TAVR - Family History Family History: States: Unknown Family Hx - Immunization History Hx Tetanus Toxoid Vaccination: No Hx Influenza Vaccination: No Hx Pneumococcal Vaccination: No - Home Medications Home Medications: Ambulatory Orders Medication Instructions Recorded Enalapril Maleate [Vasotec] 10 mg PO DAILY 07/28/16 Allopurinol [Zyloprim] 300 mg PO DAILY 04/27/17 Aspirin [Ecotrin] 81 mg PO DAILY 04/27/17 Atorvastatin [Lipitor] 20 mg PO HS 04/27/17 Metoprolol Tartrate [Lopressor] 25 mg PO Q12 04/27/17 Docusate [Colace] 100 mg PO BID cap 05/18/17 Albuterol Sulfate [Proair Hfa] 2 puff IH Q8 PRN 01/27/18 Fluticasone/Salmeterol [Advair 1 puff IH Q12 01/27/18 250-50 Diskus] Furosemide [Lasix] 20 mg PO DAILY 01/27/18 Pantoprazole Sodium [Protonix] 40 mg PO DAILY 01/27/18 amLODIPine [Norvasc] 10 mg PO DAILY 01/27/18 - Allergies Allergies/Adverse Reactions: Allergies Allergy/AdvReac Type Severity Reaction Status Date / Time No Known Allergies Allergy Verified 01/27/18 10:47 Review of Systems ROS Statement: Except As Marked, All Systems Reviewed And Found Negative Constitutional: Negative for: Fever Cardiovascular: Negative for: Chest Pain Respiratory: Positive for: Cough, Shortness of Breath, SOB with Exertion. Negative for: Sputum Musculoskeletal: Positive for: Leg Pain (bilateral leg swelling with redness and no pain) Physical Exam - Reviewed Nursing Documentation Reviewed: Yes Vital Signs Reviewed: Yes - Physical Exam Appears: Positive for: Non-toxic, No Acute Distress Head Exam: Positive for: ATRAUMATIC, NORMAL INSPECTION, NORMOCEPHALIC Skin: Positive for: Normal Color, Warm, Dry Eye Exam: Positive for: EOMI, Normal appearance, PERRL ENT: Positive for: Normal ENT Inspection Neck: Positive for: Normal, Painless ROM, Supple Cardiovascular/Chest: Positive for: Irregularly Irregular Respiratory: Positive for: Rhonchi (bilaterally). Negative for: Respiratory Distress Pulses-Dorsalis Pedis (L): 2+ Pulses-Dorsalis Pedis (R): 2+ Gastrointestinal/Abdominal: Positive for: Normal Exam, Soft. Negative for: Tenderness Back: Positive for: Normal Inspection. Negative for: L CVA Tenderness, R CVA Tenderness, Vertebral Tenderness Extremity: Positive for: Normal ROM, Other (edema to bilateral lower legs with erythema in bilateral distal shins, (-) tenderness) Neurologic/Psych: Positive for: Alert, Oriented (x3). Negative for: Motor/Sensory Deficits - Laboratory Results Result Diagrams: 01/27/18 11:01 01/27/18 11:01 - ECG ECG: Positive for: Interpreted By Me, Viewed By Me ECG Rhythm: Positive for: Atrial Fibrillation Interpretation Of ECG: Atrial fibrillation at 74 BPM, normal QRS, no ST changes O2 Sat by Pulse Oximetry: 94 - Radiology X-Ray: Viewed By Me, Read By Radiologist X-Ray Interpretation: COPD, Other (CHF) Medical Decision Making Medical Decision Makin Impression: Dyspnea and leg swelling. Differential diagnoses include, but are not limited to COPD exacerbation, CHF, acute renal failure, and anemia. Plan: -ABG -EKG -BNP -BMP -Troponin -EKG -CBC -D Dimer -CXR -Albuterol 2.5mg INH -Solu-Medrol 125mg IVP. -Reevaluation [address] Santos who will be on consult. ---- Scribe Attestation: Documented by Rai Myers, acting as a scribe for Chelsey Bui MD. Provider Scribe Attestation: All medical record entries made by the Scribe were at my direction and persona lly dictated by me. I have reviewed the chart and agree that the record accurately reflects my personal performance of the history, physical exam, medical decision making, and the department course for this patient. I have also personally directed, reviewed, and agree with the discharge instructions and disposition. Disposition - Clinical Impression Clinical Impression: Atrial fibrillation, CHF (congestive heart failure), COPD (chronic obstructive pulmonary disease) - Patient ED Disposition Is Patient to be Admitted: Yes Discussed With : Torrey Branch Doctor Will See Patient In The: Hospital Counseled Patient/Family Regarding: Studies Performed, Diagnosis - Disposition Disposition Time: 12:30 Condition: FAIR - Pt Status Changed To: Hospital Disposition Of: Inpatient - Admit Certification Admit to Inpatient:: After my assessment, the patient will require hosp italization for at least two midnights. This is because of the severity of symptoms shown, intensity of services needed, and/or the medical risk in this patient being treated as an outpatient. - POA Present On Arrival: None
[2018-01-27] MEDS ORDERED: Albuterol 0.083% Inhal Sol (2.5 mg/3 mL) UD ONE (11:02)
[2018-01-27 11:05] LABS: ABG ALLEN TEST YES; ARTERIAL BLOOD GAS HCO3 25.4 mmol/L (21-28); ARTERIAL BLOOD GAS HEMOGLOBIN 13.4 g/dL (11.7-17.4); ARTERIAL BLOOD GAS O2 CAPACITY 17.8 mL/dL (16-24); ARTERIAL BLOOD GAS O2 CONTENT 17.1 ML/dL (15-23); ARTERIAL BLOOD GAS PCO2 46 mm/Hg (35-45); ARTERIAL BLOOD GAS PH 7.37 (7.35-7.45); ARTERIAL BLOOD GAS PO2 64 mm/Hg (80-100)
[2018-01-27 11:06] LABS: ARTERIAL BLOOD GAS FIO2 30 %
[2018-01-27 11:06] LABS: BASO # 0.1 K/uL (0.0-0.2); BASO % 0.5 % (0.0-2.0); EOS % 0.2 % (0.0-4.0); HEMOGLOBIN 13.3 g/dL (12.0-18.0); LYMPH # 0.9 K/uL (1.0-4.3); LYMPH % 8.9 % (20.0-40.0); MEAN CORPUSCULAR HEMOGLOBIN 33.6 pg (27.0-31.0); MEAN CORPUSCULAR HGB CONC 33.3 g/dL (33.0-37.0); MEAN PLATELET VOLUME 8.1 fl (7.2-11.7); MONO # 1.5 K/uL (0.0-0.8); NEUT # 7.9 K/uL (1.8-7.0); NEUT % 76.4 % (50.0-75.0); NRBC % 0.1 % (0.0-0.0); PLATELET COUNT 154 K/uL (130-400); RBC 3.97 Mil/uL (4.40-5.90); RED CELL DISTRIBUTION WIDTH 15.5 % (11.5-14.5); WHITE BLOOD COUNT 10.4 K/uL (4.8-10.8)
[2018-01-27 11:22] LABS: BLOOD UREA NITROGEN 19 mg/dl (9-20); CALCIUM 8.8 mg/dL (8.4-10.2); GFR NON-AFRICAN AMERICAN > 60
[2018-01-27 11:34] LABS: B-TYPE NATRIURETIC PEPTIDE 1540 pg/ml (0-900)
[2018-01-27 11:55] LABS: LYMPHOCYTE 11 % (20-50); MONOCYTE 8 % (0-10); NEUTROPHIL 79 % (42-75); REACTIVE LYMPHOCYTES 2 % (0-0); TOTAL CELLS COUNTED 100
[2018-01-27 11:56] LABS: PLATELET ESTIMATE NORMAL (NORMAL)
[2018-01-27 12:03] LABS: ANISOCYTOSIS SLIGHT
[2018-01-27] MEDS ORDERED: levoFLOXacin 500 mg in D5W 500 MG/100 ML BAG IVPB STA (12:06)
--- NOTE | 2018-01-27 12:12 | RAD ---
Date of service: 01/27/2018 PROCEDURE: CHEST RADIOGRAPH, 1 VIEW HISTORY: dyspnea COMPARISON: Chest radiograph dated 01/13/2018. FINDINGS: LUNGS: Pulmonary vascular congestion. Bibasilar atelectasis. PLEURA: Small bilateral effusions questioned. No appreciable pneumothorax. CARDIOVASCULAR: Aortic atherosclerotic calcifications. Cardiomediastinal silhouette stably enlarged. OSSEOUS STRUCTURES: Unchanged. VISUALIZED UPPER ABDOMEN: Normal. OTHER FINDINGS: None. IMPRESSION: Pulmonary vascular congestion and probable small bilateral pleural effusions.
[2018-01-27 12:43] LABS: INR 1.1; PROTHROMBIN TIME 12.5 Seconds (9.8-13.1)
[2018-01-27] MEDS ORDERED: levoFLOXacin 500 mg in D5W 500 MG/100 ML BAG IVPB ONE (12:49)
[2018-01-27] MEDS ORDERED: Enoxaparin 80 mg Syringe SC STA (12:53)
[2018-01-27] MEDS ORDERED: Enoxaparin 100 mg Syringe SC STA (12:57)
[2018-01-27 15:59] VITALS: BMI 34.5
[2018-01-27] MEDS ORDERED: methylPREDNISolone 40 MG in Sodium Chloride 0.9% 50 ML IV SCH (17:30)
[2018-01-27] MEDS: MethylPREDNISolone 40 mg Vial IVP SCH (17:37)
--- NOTE | 2018-01-27 18:38 | CARD ---
APPROVED REPORT Date of service: 01/27/2018 EXAM: Two-dimensional and M-mode echocardiogram with Doppler and color Doppler. Other Information Quality : AverageRhythm : Atrial Fibrillation Technically limited study due to body habitus. INDICATION Atrial Fibrillation Congestive Heart Failure 2D DIMENSIONS IVSd1.12 (0.7-1.1cm)LVDd4.59 (3.9-5.9cm) LVOT Diameter2.06 (1.8-2.4cm)PWd1.02 (0.7-1.1cm) IVSs1.44 (0.8-1.2cm)LVDs2.49 (2.5-4.0cm) FS (%) 45.8 %PWs1.21 (0.8-1.2cm) M-Mode DIMENSIONS Left Atrium (MM)6.03 (2.5-4.0cm)IVSd1.50 (0.7-1.1cm) Aortic Root2.59 (2.2-3.7cm)LVDd5.14 (4.0-5.6cm) PWd1.94 (0.7-1.1cm)IVSs1.78 cm FS (%) 57 %LVDs2.22 (2.0-3.8cm) PWs2.71 cm Aortic Valve AoV Peak Rztutrve737.5cm/sAoV VTI52.1cmAO Peak GR.34mmHg LVOT Peak Ymgfkugo588.8cm/sLVOT VTI21.39cmAO Mean GR.19mmHg PAT (VMAX)0.86mi4XWG (VTI)0.68cm2 Mitral Valve E/A ratio0.0 TDI E/Lateral E'0.0E/Medial E'0.0 Tricuspid Valve TR Peak Zzzavjao095nc/sRAP [id number] Peak Gr.42mmHg QIAI50ppVw LEFT VENTRICLE The left ventricle is normal size. There is normal left ventricular wall thickness. The left ventricular systolic function is normal. The estimated ejection fraction is 55-60% No regional wall motion abnormalities noted.. The left ventricular diastolic function cannot be assessed due to underlying atrial fibrillation. No left ventricle thrombus noted on this study. There is no ventricular septal defect visualized. There is no left ventricular aneurysm. There is no mass noted in the left ventricle. RIGHT VENTRICLE The right ventricle is normal size. There is normal right ventricular wall thickness. The right ventricular systolic function is normal. ATRIA The left atrium is severely dilated. The right atrium size is normal. The interatrial septum is intact with no evidence for an atrial septal defect. AORTIC VALVE The aortic valve leaflets are calcified and motion is restricted. No aortic regurgitation is present. There is moderate aortic valvular stenosis. Peak aortic velocity is 3.1 m/sec. Calculated aortic valve area is 1.33 cm2. There is no aortic valvular vegetation. MITRAL VALVE The mitral valve is normal in structure. There is no evidence of mitral valve prolapse. There is no mitral valve stenosis. There is mild mitral valve regurgitation noted. TRICUSPID VALVE The tricuspid valve is normal in structure. There is mild tricuspid valve regurgitation noted. RVSP is calculated at 52 mm Hg. There is no tricuspid valve prolapse or vegetation. There is no tricuspid valve stenosis. PULMONIC VALVE The pulmonary valve is normal in structure. There is no pulmonic valvular regurgitation. There is no pulmonic valvular stenosis. GREAT VESSELS The aortic root is normal in size. The ascending aorta is normal in size. The pulmonary artery is normal. The IVC is normal in size and collapses >50% with inspiration. PERICARDIAL EFFUSION There is no pericardial effusion. There is no pleural effusion. <Conclusion> The estimated ejection fraction is 55-60% The left ventricular diastolic function cannot be assessed due to underlying atrial fibrillation. The left atrium is severely dilated. There is moderate aortic valvular stenosis. Peak aortic velocity is 3.1 m/sec. Calculated aortic valve area is 1.33 cm2. There is mild mitral valve regurgitation noted. There is mild tricuspid valve regurgitation noted. RVSP is calculated at 52 mm Hg.
--- NOTE | 2018-01-27 18:43 | CARD ---
APPROVED REPORT Date of service: 01/27/2018 EKG Measurement Heart [id number] <Conclusion> Atrial fibrillation likely Baseline artifact Cannot rule out Anterior infarct, age undetermined Abnormal ECG
--- NOTE | 2018-01-27 18:48 | CP.PCM.PN ---
Subjective - Date & Time of Evaluation Date of Evaluation: 01/27/18 Time of Evaluation: 22:22 - Subjective Subjective: 87 yo with hx of COPD smoker S/P TAVR referred to ER for SOB which did not improve with outpatient therapy including short course of oral steroids with inhalers Objective - Vital Signs/Intake and Output Vital Signs (last 24 hours): Temp Pulse Resp BP Pulse Ox 97.6 F 77 20 163/73 H 95 01/27/18 16:26 01/27/18 16:26 01/27/18 16:26 01/27/18 16:26 01/27/18 16:26 - Medications Medications: Current Medications Albuterol Sulfate (Albuterol 0.042% Inhal Olivia (1.25mg/3ml) Ud) 1.25 mg INH RQ4 [facility] Methylprednisolone (Solu-Medrol) 40 mg IVP Q8H [facility] Last Admin: 01/27/18 17:37 Dose: 40 mg Pantoprazole Sodium (Protonix Inj) 40 mg IVP DAILY [facility] - Labs Labs: 01/27/18 11:01 01/27/18 11:01 PT 12.5 Seconds (9.8-13.1) 01/27/18 10:57 INR 1.1 01/27/18 10:57 APTT 35.0 Seconds (25.6-37.1) 01/27/18 10:57 - Respiratory Exam Respiratory Exam: NORMAL BREATHING PATTERN - Cardiovascular Exam Cardiovascular Exam: REGULAR RHYTHM - GI/Abdominal Exam GI & Abdominal Exam: Normal Bowel Sounds Assessment and Plan - Assessment and Plan (Free Text) Assessment: COPD Smoker HTN Prediabetes S/P TAVR Pulmonary Cardiology S/P Low back surgery Severe Spinal Stenosis Post operative illeus
[2018-01-27] MEDS ORDERED: Albuterol HFA 90 mcg/actuation (8 g) INH PRN ×2 (21:55→22:00)
[2018-01-27] MEDS: Albuterol 0.042% Inhal Sol (1.25 mg/3 mL) UD INH SCH ×2 (21:58→23:48)
[2018-01-27] MEDS: Fluticasone-Salmeterol 250-50mcg Diskus IH SCH (23:39)
[2018-01-28] MEDS: MethylPREDNISolone 40 mg Vial IVP SCH ×4 (01:00→16:54)
[2018-01-28] MEDS: Albuterol 0.042% Inhal Sol (1.25 mg/3 mL) UD INH SCH ×5 (05:01→20:01)
[2018-01-28 05:47] LABS: HEMOGLOBIN 12.4 g/dL (12.0-18.0); MEAN CORPUSCULAR HEMOGLOBIN 33.1 pg (27.0-31.0); MEAN CORPUSCULAR HGB CONC 32.8 g/dL (33.0-37.0); RBC 3.74 Mil/uL (4.40-5.90); RED CELL DISTRIBUTION WIDTH 15.1 % (11.5-14.5); WHITE BLOOD COUNT 8.1 K/uL (4.8-10.8)
[2018-01-28 06:10] LABS: ALB/GLOB RATIO 1.1 (1.0-2.1); ALBUMIN 3.6 g/dL (3.5-5.0); ALT/SGPT 27 U/L (21-72); AST/SGOT 19 U/L (17-59); BLOOD UREA NITROGEN 24 mg/dl (9-20); CALCIUM 8.8 mg/dL (8.4-10.2); GFR NON-AFRICAN AMERICAN > 60
[2018-01-28] MEDS: Fluticasone-Salmeterol 250-50mcg Diskus IH SCH ×2 (08:30→21:56)
[2018-01-28] MEDS: Pantoprazole 40 mg EC Tab PO SCH (08:34)
--- NOTE | 2018-01-28 10:31 | CP.PCM.CON ---
History of Present Illness - History of Present Illness History of Present Illness: This 87 year old Kisw[place]ili male is known to me from previous hospitalization. He presented now with SOB for the past month which did not respond to outpatient therapy. He admits to cough with expectoration of small quantities of yellow s putum w/o and blood admixed. He is unaware of fever and denies chills. He denies any chest pain. He has a history of hypoxemia, and does have oxygen at home which is not used. He also notes increased swelling of both legs with erythema, but no pain, for about two weeks. He does claim to take his medications as prescribed. Past Patient History - Past Medical History & Family History Past Medical History?: Yes - Past Social History Smoking Status: Former Smoker (stopped about three years ago) Chewing Tobacco Use: No Cigar Use: No Alcohol: > 2 Drinks/Day Drugs: Denies Home Situation {Lives}: With Family - CARDIAC Hx Atrial Fibrillation: Yes (current EKG) Hx Congestive Heart Failure: Yes Hx Hypercholesterolemia: Yes Hx Hypertension: Yes Hx Peripheral Edema: Yes Other/Comment: AO valve replacement - PULMONARY Hx Bronchitis: Yes Hx Chronic Obstructive Pulmonary Disease (COPD): Yes - NEUROLOGICAL Hx Neurological Disorder: No - HEENT Hx HEENT Problems: No - RENAL Hx Chronic Kidney Disease: No - ENDOCRINE/METABOLIC Hx Endocrine Disorders: No - HEMATOLOGICAL/ONCOLOGICAL Hx Blood Disorders: No Hx Human Immunodeficiency Virus (HIV): No - INTEGUMENTARY Other/Comment: skin lesion recently removed from left infra-ocular area - MUSCULOSKELETAL/RHEUMATOLOGICAL Hx Falls: No Hx Gout: Yes - GASTROINTESTINAL Hx Gastrointestinal Disorders: No - GENITOURINARY/GYNECOLOGICAL Hx Genitourinary Disorders: No - PSYCHIATRIC Hx Psychophysiologic Disorder: No Hx Substance Use: No - SURGICAL HISTORY Hx Valve Replacement: Yes (TAVR) Other/Comment: Laminectomy L3-L5 05/15/2017 - ANESTHESIA Hx Anesthesia: Yes Hx Anesthesia Reactions: No Hx Malignant Hyperthermia: No Has any member of the family had a problem w/ anesthesia?: No Meds Allergies/Adverse Reactions: Allergies Allergy/AdvReac Type Severity Reaction Status Date / Time No Known Allergies Allergy Verified 01/27/18 10:47 - Medications Medications: Current Medications Albuterol (Ventolin Hfa 90 Mcg/Actuation (8 G)) 1 puff INH RQ6 PRN PRN Reason: Shortness of Breath Albuterol Sulfate (Albuterol 0.042% Inhal Olivia (1.25mg/3ml) Ud) 1.25 mg INH RQ4 [facility] Last Admin: 01/28/18 08:02 Dose: 1.25 mg Allopurinol (Zyloprim) 300 mg PO DAILY [facility] Last Admin: 01/28/18 08:36 Dose: 300 mg Amlodipine Besylate (Norvasc) 10 mg PO DAILY [facility] Last Admin: 01/28/18 08:34 Dose: 10 mg Aspirin (Ecotrin) 81 mg PO DAILY [facility] Last Admin: 01/28/18 08:32 Dose: 81 mg Atorvastatin Calcium (Lipitor) 20 mg PO HS [facility] Last Admin: 01/27/18 23:39 Dose: 20 mg Docusate Sodium (Colace) 100 mg PO BID [facility] Last Admin: 01/28/18 08:30 Dose: 100 mg Enalapril Maleate (Vasotec) 10 mg PO DAILY [facility] Last Admin: 01/28/18 09:12 Dose: 10 mg Enoxaparin Sodium (Lovenox) 40 mg SC DAILY [facility]; Protocol Furosemide (Lasix) 20 mg PO DAILY [facility] Last Admin: 01/28/18 08:32 Dose: 20 mg Methylprednisolone (Solu-Medrol) 30 mg IVP Q8 [facility] Metoprolol Tartrate (Lopressor) 25 mg PO Q12 [facility] Last Admin: 01/28/18 08:33 Dose: 25 mg Pantoprazole Sodium (Protonix Ec Tab) 40 mg PO DAILY [facility] Last Admin: 01/28/18 08:34 Dose: 40 mg Fluticasone/Salmeterol (Advair Diskus 250/50) 1 puff IH Q12 [facility] Last Admin: 01/28/18 08:30 Dose: 1 puff Physical Exam - Additional Findings Additional findings: Elderly, overweight male who appears to be in no acute distress. He is complaining of swelling of both lower extremities for about two weeks. There is noted to be some erythema of both lower extremities from mid calf to an kle. 2+ edema which is painful on compression of both lower extremities again from mid calf to the ankle. No palpable lymphadenopathy. Congested, nonproductive cough is noted during the examination. The neck is supple and trachea is midline. No visible neck vein distention. Carotid impulse appears normal and there is no bruit. No palpable thyromegaly. Pharynx is pink and mucous membranes are moist. No exudate. No dullness on chest percussion. Equal expansion. Breath sounds are diminished bilaterally. Sonorous rhonchi are heard in dependent regions of both lungs. No audible wheezing. Rare dry rales are heard in the lower lobes. Heart sounds are distant. Rhythm is regular. + systolic murmur at base. The abdomen is soft and nontender. Bowel sounds are normal, no CVA tenderness. Results - Vital Signs Recent Vital Signs: Last Vital Signs Temp 97.1 F L 01/28/18 07:56 Pulse 73 01/28/18 08:34 Resp 18 01/28/18 07:56 BP 146/69 01/28/18 08:34 Pulse Ox 93 L 01/28/18 07:56 - Labs Result Diagrams: 01/28/18 04:50 01/29/18 04:25 Labs: Laboratory Results - last 24 hr 01/27/18 01/27/18 01/27/18 10:56 10:57 11:01 WBC RBC Hgb Hct MCV MCH MCHC RDW Plt Count MPV Neut % (Auto) Lymph % (Auto) [place] % (Auto) Eos % (Auto) Baso % (Auto) Neut # (Auto) Lymph # (Auto) [place] # (Auto) Eos # (Auto) Baso # (Auto) Neutrophils % (Manual) Lymphocytes % (Manual) Reactive Lymphs % Monocytes % (Manual) Platelet Estimate Anisocytosis (manual) Macrocytosis (manual) PT 12.5 INR 1.1 APTT 35.0 D-Dimer, Quantitative pCO2 46 H pO2 64 L HCO3 25.4 ABG pH 7.37 ABG Total CO2 28.0 ABG O2 Saturation 96.0 ABG O2 Content 17.1 ABG Base Excess 0.8 ABG Hemoglobin 13.4 ABG Carboxyhemoglobin 3.0 H POC ABG HHb (Measured) 3.8 ABG Methemoglobin 2.6 ABG O2 Capacity 17.8 Nam Test Yes A-a O2 Difference 28.0 Hgb O2 Saturation 90.6 L FiO2 30 Blood Gas Comments 2l/m nc.rr Sodium 128 L Potassium 5.4 H Chloride 91 L Carbon Dioxide 23 Anion Gap 19 BUN 19 Creatinine 0.9 Est GFR ( Amer) > 60 Est GFR (Non-Af Amer) > 60 Random Glucose 142 H Calcium 8.8 Total Bilirubin AST ALT Alkaline Phosphatase Troponin I < 0.0120 NT-Pro-B Natriuret Pep 1540 H Total Protein Albumin Globulin Albumin/Globulin Ratio TSH 3rd Generation 01/27/18 01/27/18 01/27/18 11:01 11:01 12:26 WBC 10.4 D RBC 3.97 L Hgb 13.3 Hct 40.1 MCV 101.0 H D MCH 33.6 H MCHC 33.3 RDW 15.5 H Plt Count 154 MPV 8.1 Neut % (Auto) 76.4 H Lymph % (Auto) 8.9 L [place] % (Auto) 14.0 H Eos % (Auto) 0.2 Baso % (Auto) 0.5 Neut # (Auto) 7.9 H Lymph # (Auto) 0.9 L [place] # (Auto) 1.5 H Eos # (Auto) 0.0 Baso # (Auto) 0.1 Neutrophils % (Manual) 79 H Lymphocytes % (Manual) 11 L Reactive Lymphs % 2 H Monocytes % (Manual) 8 Platelet Estimate Normal Anisocytosis (manual) Slight Macrocytosis (manual) Slight PT INR APTT D-Dimer, Quantitative < 200 pCO2 pO2 HCO3 ABG pH ABG Total CO2 ABG O2 Saturation ABG O2 Content ABG Base Excess ABG Hemoglobin ABG Carboxyhemoglobin POC ABG HHb (Measured) ABG Methemoglobin ABG O2 Capacity Nam Test A-a O2 Difference Hgb O2 Saturation FiO2 Blood Gas Comments Sodium Potassium Chloride Carbon Dioxide Anion Gap BUN Creatinine Est GFR ( Amer) Est GFR (Non-Af Amer) Random Glucose Calcium Total Bilirubin AST ALT Alkaline Phosphatase Troponin I NT-Pro-B Natriuret Pep Total Protein Albumin Globulin Albumin/Globulin Ratio TSH 3rd Generation 2.41 01/28/18 01/28/18 04:50 04:50 WBC 8.1 RBC 3.74 L Hgb 12.4 Hct 37.7 MCV 101.0 H MCH 33.1 H MCHC 32.8 L RDW 15.1 H Plt Count 153 MPV Neut % (Auto) Lymph % (Auto) [place] % (Auto) Eos % (Auto) Baso % (Auto) Neut # (Auto) Lymph # (Auto) [place] # (Auto) Eos # (Auto) Baso # (Auto) Neutrophils % (Manual) Lymphocytes % (Manual) Reactive Lymphs % Monocytes % (Manual) Platelet Estimate Anisocytosis (manual) Macrocytosis (manual) PT INR APTT D-Dimer, Quantitative pCO2 pO2 HCO3 ABG pH ABG Total CO2 ABG O2 Saturation ABG O2 Content ABG Base Excess ABG Hemoglobin ABG Carboxyhemoglobin POC ABG HHb (Measured) ABG Methemoglobin ABG O2 Capacity Nam Test A-a O2 Difference Hgb O2 Saturation FiO2 Blood Gas Comments Sodium 129 L Potassium 5.5 H Chloride 92 L Carbon Dioxide 27 Anion Gap 16 BUN 24 H Creatinine 0.9 Est GFR ( Amer) > 60 Est GFR (Non-Af Amer) > 60 Random Glucose 196 H Calcium 8.8 Total Bilirubin 0.6 AST 19 ALT 27 Alkaline Phosphatase 68 Troponin I NT-Pro-B Natriuret Pep Total Protein 6.8 Albumin 3.6 Globulin 3.2 Albumin/Globulin Ratio 1.1 TSH 3rd Generation 0.81 Assessment & Plan (1) COPD with exacerbation Status: Acute Priority: High (2) Hyponatremia Status: Acute Priority: High (3) Hypoxemia Status: Chronic Priority: High (4) Leg edema Status: Chronic Priority: High - Assessment and Plan (Free Text) Plan: Current medical/aerosol regimen appears appropriate. Will not change therapies as long as he remains comfortable and well oxygenated. - Date & Time Date: 01/28/18 Time: 10:48
[2018-01-28] MEDS ORDERED: Sod Polystyrene Sulf 15 gm/60 ml Susp PO ONE (11:15)
[2018-01-28] MEDS: Enoxaparin 40 mg Syringe SC SCH (11:35)
--- NOTE | 2018-01-28 12:49 | CP.PCM.CON ---
History of Present Illness - History of Present Illness History of Present Illness: 87 yo male admitted with shortness of breath, no improvement with outpt therapy. Not compliant with home 02. S/p TAVR. LV function normal by echo, normal AV function. Atrial fibrillation on EKG which is new from baseline. Lower ext nilda lulitis. Good Response to diuresis with improvement in dyspnea. Past Patient History - Past Medical History & Family History Past Medical History?: Yes - Past Social History Smoking Status: Former Smoker (stopped about three years ago) Chewing Tobacco Use: No Cigar Use: No Alcohol: > 2 Drinks/Day Drugs: Denies Home Situation {Lives}: With Family - CARDIAC Hx Atrial Fibrillation: Yes (current EKG) Hx Congestive Heart Failure: Yes Hx Hypercholesterolemia: Yes Hx Hypertension: Yes Hx Peripheral Edema: Yes Other/Comment: AO valve replacement - PULMONARY Hx Bronchitis: Yes Hx Chronic Obstructive Pulmonary Disease (COPD): Yes - NEUROLOGICAL Hx Neurological Disorder: No - HEENT Hx HEENT Problems: No - RENAL Hx Chronic Kidney Disease: No - ENDOCRINE/METABOLIC Hx Endocrine Disorders: No - HEMATOLOGICAL/ONCOLOGICAL Hx Blood Disorders: No Hx Human Immunodeficiency Virus (HIV): No - INTEGUMENTARY Other/Comment: skin lesion recently removed from left infra-ocular area - MUSCULOSKELETAL/RHEUMATOLOGICAL Hx Falls: No Hx Gout: Yes - GASTROINTESTINAL Hx Gastrointestinal Disorders: No - GENITOURINARY/GYNECOLOGICAL Hx Genitourinary Disorders: No - PSYCHIATRIC Hx Psychophysiologic Disorder: No Hx Substance Use: No - SURGICAL HISTORY Hx Valve Replacement: Yes (TAVR) Other/Comment: Laminectomy L3-L5 05/15/2017 - ANESTHESIA Hx Anesthesia: Yes Hx Anesthesia Reactions: No Hx Malignant Hyperthermia: No Has any member of the family had a problem w/ anesthesia?: No Meds Allergies/Adverse Reactions: Allergies Allergy/AdvReac Type Severity Reaction Status Date / Time No Known Allergies Allergy Verified 01/27/18 10:47 - Medications Medications: Current Medications Albuterol (Ventolin Hfa 90 Mcg/Actuation (8 G)) 1 puff INH RQ6 PRN PRN Reason: Shortness of Breath Albuterol Sulfate (Albuterol 0.042% Inhal Olivia (1.25mg/3ml) Ud) 1.25 mg INH RQ4 [facility] Last Admin: 01/28/18 11:27 Dose: 1.25 mg Allopurinol (Zyloprim) 300 mg PO DAILY [facility] Last Admin: 01/28/18 08:36 Dose: 300 mg Amlodipine Besylate (Norvasc) 10 mg PO DAILY [facility] Last Admin: 01/28/18 08:34 Dose: 10 mg Aspirin (Ecotrin) 81 mg PO DAILY [facility] Last Admin: 01/28/18 08:32 Dose: 81 mg Atorvastatin Calcium (Lipitor) 20 mg PO HS [facility] Last Admin: 01/27/18 23:39 Dose: 20 mg Docusate Sodium (Colace) 100 mg PO BID [facility] Last Admin: 01/28/18 08:30 Dose: 100 mg Enoxaparin Sodium (Lovenox) 40 mg SC DAILY [facility]; Protocol Last Admin: 01/28/18 11:35 Dose: 40 mg Furosemide (Lasix) 20 mg PO DAILY [facility] Last Admin: 01/28/18 08:32 Dose: 20 mg Methylprednisolone (Solu-Medrol) 30 mg IVP Q8 [facility] Last Admin: 01/28/18 12:16 Dose: Not Given Metoprolol Tartrate (Lopressor) 25 mg PO Q12 [facility] Last Admin: 01/28/18 08:33 Dose: 25 mg Pantoprazole Sodium (Protonix Ec Tab) 40 mg PO DAILY [facility] Last Admin: 01/28/18 08:34 Dose: 40 mg Fluticasone/Salmeterol (Advair Diskus 250/50) 1 puff IH Q12 [facility] Last Admin: 01/28/18 08:30 Dose: 1 puff Physical Exam - Head Exam Head Exam: NORMAL INSPECTION - Neck Exam Neck exam: Positive for: Normal Inspection - Respiratory Exam Respiratory Exam: Decreased Breath Sounds - Cardiovascular Exam Cardiovascular Exam: Irregular Rhythm, REGULAR RHYTHM - GI/Abdominal Exam GI & Abdominal Exam: Normal Bowel Sounds - Extremities Exam Extremities exam: Positive for: pedal edema Results - Vital Signs Recent Vital Signs: Last Vital Signs Temp 97.8 F 01/28/18 12:00 Pulse 69 01/28/18 12:00 Resp 18 01/28/18 12:00 BP 148/73 01/28/18 12:00 Pulse Ox 95 01/28/18 12:00 - Labs Result Diagrams: 01/28/18 04:50 01/28/18 04:50 Labs: Laboratory Results - last 24 hr 01/27/18 01/28/18 01/28/18 12:26 04:50 04:50 WBC 8.1 RBC 3.74 L Hgb 12.4 Hct 37.7 MCV 101.0 H MCH 33.1 H MCHC 32.8 L RDW 15.1 H Plt Count 153 Sodium 129 L Potassium 5.5 H Chloride 92 L Carbon Dioxide 27 Anion Gap 16 BUN 24 H Creatinine 0.9 Est GFR ( Amer) > 60 Est GFR (Non-Af Amer) > 60 Random Glucose 196 H Calcium 8.8 Total Bilirubin 0.6 AST 19 ALT 27 Alkaline Phosphatase 68 Total Protein 6.8 Albumin 3.6 Globulin 3.2 Albumin/Globulin Ratio 1.1 TSH 3rd Generation 2.41 0.81 Assessment & Plan - Assessment and Plan (Free Text) Assessment: #1 CHF: continue PO diuretics , normal LVEF, edema may be secondary to hypoxia and Norvasc #2 Pulmonary: continue inhalers, compliance with home 02 #3 Pedal Edema : cellulitis
--- NOTE | 2018-01-28 15:05 | CP.PCM.CON ---
History of Present Illness - History of Present Illness History of Present Illness: RENAL Consult Note CC: leg swelling reason for consult: hyperkalemia and hyponatremia HPI: pt is a 87 M with hx of HTN COPD s/p TAVR admitted to hospital with worsening SOB for last few days with cough and leg edema and found to have COPD/CHF exacerbation and renal consult for electrolytes eval pt reports worsening leg swelling. SOB better. cough improved. no nausea/vomitting or urine complaints no issues with K or Na in past s: seen and examined no new complaints. feels better no CP/nausea/vomitting. all other negative except as mentioned in hpi. improved SOB o/e: vss, obese male gen: nad sclera: anicteric heent; perrla op: clear neck: supple no thyromegaly lungs: b/l air entry reduced at bases with crackles cv: +S1+s2 no rub abd: soft no organomegaly nt/nd ext: 2+ edema with erythematous changes neuro: A+OX3 no focal deficit psych: nml affect/mood. limited insight skin: No rash no ulcer except erythema in legs work up: cxr: CHF pattern with small effusions echo normal LVEF TSh 2.4 imp: hypervolemic hyponatremia likely fluid overload and diastolic CHF exacerbation hyperkalemia HTN, COPD exacerbation s/p TAVR Obesity plan: Cr stable continue to monitor bp controlled. hold acei/arb due to elevated K change lasix to 40 mg IVP daily. low Na and low K diet glycemic control check UA, urine Na/OSmol, urine K, to calculate TTKG management of COPD as per primary team dose meds for GFR >60 thanks for consult Please call if any Qs [phone] Past Patient History - Past Medical History & Family History Past Medical History?: Yes - Past Social History Smoking Status: Former Smoker (stopped about three years ago) Chewing Tobacco Use: No Cigar Use: No Alcohol: > 2 Drinks/Day Drugs: Denies Home Situation {Lives}: With Family - CARDIAC Hx Atrial Fibrillation: Yes (current EKG) Hx Congestive Heart Failure: Yes Hx Hypercholesterolemia: Yes Hx Hypertension: Yes Hx Peripheral Edema: Yes Other/Comment: AO valve replacement - PULMONARY Hx Bronchitis: Yes Hx Chronic Obstructive Pulmonary Disease (COPD): Yes - NEUROLOGICAL Hx Neurological Disorder: No - HEENT Hx HEENT Problems: No - RENAL Hx Chronic Kidney Disease: No - ENDOCRINE/METABOLIC Hx Endocrine Disorders: No - HEMATOLOGICAL/ONCOLOGICAL Hx Blood Disorders: No Hx Human Immunodeficiency Virus (HIV): No - INTEGUMENTARY Other/Comment: skin lesion recently removed from left infra-ocular area - MUSCULOSKELETAL/RHEUMATOLOGICAL Hx Falls: No Hx Gout: Yes - GASTROINTESTINAL Hx Gastrointestinal Disorders: No - GENITOURINARY/GYNECOLOGICAL Hx Genitourinary Disorders: No - PSYCHIATRIC Hx Psychophysiologic Disorder: No Hx Substance Use: No - SURGICAL HISTORY Hx Valve Replacement: Yes (TAVR) Other/Comment: Laminectomy L3-L5 05/15/2017 - ANESTHESIA Hx Anesthesia: Yes Hx Anesthesia Reactions: No Hx Malignant Hyperthermia: No Has any member of the family had a problem w/ anesthesia?: No Meds Allergies/Adverse Reactions: Allergies Allergy/AdvReac Type Severity Reaction Status Date / Time No Known Allergies Allergy Verified 01/27/18 10:47 - Medications Medications: Current Medications Albuterol (Ventolin Hfa 90 Mcg/Actuation (8 G)) 1 puff INH RQ6 PRN PRN Reason: Shortness of Breath Albuterol Sulfate (Albuterol 0.042% Inhal Olivia (1.25mg/3ml) Ud) 1.25 mg INH RQ4 [facility] Last Admin: 01/28/18 11:27 Dose: 1.25 mg Allopurinol (Zyloprim) 300 mg PO DAILY [facility] Last Admin: 01/28/18 08:36 Dose: 300 mg Amlodipine Besylate (Norvasc) 10 mg PO DAILY [facility] Last Admin: 01/28/18 08:34 Dose: 10 mg Aspirin (Ecotrin) 81 mg PO DAILY [facility] Last Admin: 01/28/18 08:32 Dose: 81 mg Atorvastatin Calcium (Lipitor) 20 mg PO HS [facility] Last Admin: 01/27/18 23:39 Dose: 20 mg Docusate Sodium (Colace) 100 mg PO BID [facility] Last Admin: 01/28/18 08:30 Dose: 100 mg Enoxaparin Sodium (Lovenox) 40 mg SC DAILY [facility]; Protocol Last Admin: 01/28/18 11:35 Dose: 40 mg Furosemide (Lasix) 40 mg IVP DAILY [facility] Methylprednisolone (Solu-Medrol) 30 mg IVP Q8 [facility] Last Admin: 01/28/18 12:16 Dose: Not Given Metoprolol Tartrate (Lopressor) 25 mg PO Q12 [facility] Last Admin: 01/28/18 08:33 Dose: 25 mg Pantoprazole Sodium (Protonix Ec Tab) 40 mg PO DAILY [facility] Last Admin: 01/28/18 08:34 Dose: 40 mg Fluticasone/Salmeterol (Advair Diskus 250/50) 1 puff IH Q12 [facility] Last Admin: 01/28/18 08:30 Dose: 1 puff Results - Vital Signs Recent Vital Signs: Last Vital Signs Temp 97.8 F 01/28/18 12:00 Pulse 69 01/28/18 12:00 Resp 18 01/28/18 12:00 BP 148/73 01/28/18 12:00 Pulse Ox 95 01/28/18 12:00 - Labs Result Diagrams: 01/28/18 04:50 01/28/18 04:50 Labs: Laboratory Results - last 24 hr 01/28/18 01/28/18 01/28/18 04:50 04:50 12:15 WBC 8.1 RBC 3.74 L Hgb 12.4 Hct 37.7 MCV 101.0 H MCH 33.1 H MCHC 32.8 L RDW 15.1 H Plt Count 153 Sodium 129 L Potassium 5.5 H Chloride 92 L Carbon Dioxide 27 Anion Gap 16 BUN 24 H Creatinine 0.9 Est GFR ( Amer) > 60 Est GFR (Non-Af Amer) > 60 Random Glucose 196 H Calcium 8.8 Total Bilirubin 0.6 AST 19 ALT 27 Alkaline Phosphatase 68 Total Protein 6.8 Albumin 3.6 Globulin 3.2 Albumin/Globulin Ratio 1.1 TSH 3rd Generation 0.81 Urine Osmolality 377 Ur Random Sodium Ur Random Potassium 01/28/18 13:40 WBC RBC Hgb Hct MCV MCH MCHC RDW Plt Count Sodium Potassium Chloride Carbon Dioxide Anion Gap BUN Creatinine Est GFR ( Amer) Est GFR (Non-Af Amer) Random Glucose Calcium Total Bilirubin AST ALT Alkaline Phosphatase Total Protein Albumin Globulin Albumin/Globulin Ratio TSH 3rd Generation Urine Osmolality Ur Random Sodium < 5 Ur Random Potassium 48.2
[2018-01-28 15:54] LABS: SQUAMOUS EPITHIAL < 1 /hpf (0-5); URINE BILIRUBIN NEGATIVE (NEGATIVE); URINE BLOOD NEGATIVE (NEGATIVE); URINE CLARITY CLEAR (Clear); URINE COLOR YELLOW (YELLOW); URINE GLUCOSE (UA) 50 mg/dL (Normal); URINE LEUKOCYTE ESTERASE NEG Leu/uL (Negative); URINE PROTEIN NEGATIVE (NEGATIVE); URINE UROBILINOGEN 0.2-1.0 mg/dL (0.2-1.0)
[2018-01-28] MEDS ORDERED: methylPREDNISolone 30 MG in Sodium Chloride 0.9% 50 ML IV SCH (17:00)
--- NOTE | 2018-01-28 19:48 | CP.PCM.CON ---
History of Present Illness - History of Present Illness History of Present Illness: 87 yo male with Hx of CHF COPD\ referred for cellulitis cultures pending empiric rx started Past Patient History - Past Medical History & Family History Past Medical History?: Yes - Past Social History Smoking Status: Former Smoker (stopped about three years ago) Chewing Tobacco Use: No Cigar Use: No Alcohol: > 2 Drinks/Day Drugs: Denies Home Situation {Lives}: With Family - CARDIAC Hx Atrial Fibrillation: Yes (current EKG) Hx Congestive Heart Failure: Yes Hx Hypercholesterolemia: Yes Hx Hypertension: Yes Hx Peripheral Edema: Yes Other/Comment: AO valve replacement - PULMONARY Hx Bronchitis: Yes Hx Chronic Obstructive Pulmonary Disease (COPD): Yes - NEUROLOGICAL Hx Neurological Disorder: No - HEENT Hx HEENT Problems: No - RENAL Hx Chronic Kidney Disease: No - ENDOCRINE/METABOLIC Hx Endocrine Disorders: No - HEMATOLOGICAL/ONCOLOGICAL Hx Blood Disorders: No Hx Human Immunodeficiency Virus (HIV): No - INTEGUMENTARY Other/Comment: skin lesion recently removed from left infra-ocular area - MUSCULOSKELETAL/RHEUMATOLOGICAL Hx Falls: No Hx Gout: Yes - GASTROINTESTINAL Hx Gastrointestinal Disorders: No - GENITOURINARY/GYNECOLOGICAL Hx Genitourinary Disorders: No - PSYCHIATRIC Hx Psychophysiologic Disorder: No Hx Substance Use: No - SURGICAL HISTORY Hx Valve Replacement: Yes (TAVR) Other/Comment: Laminectomy L3-L5 05/15/2017 - ANESTHESIA Hx Anesthesia: Yes Hx Anesthesia Reactions: No Hx Malignant Hyperthermia: No Has any member of the family had a problem w/ anesthesia?: No Meds Allergies/Adverse Reactions: Allergies Allergy/AdvReac Type Severity Reaction Status Date / Time No Known Allergies Allergy Verified 01/27/18 10:47 - Medications Medications: Current Medications Albuterol (Ventolin Hfa 90 Mcg/Actuation (8 G)) 1 puff INH RQ6 PRN PRN Reason: Shortness of Breath Albuterol Sulfate (Albuterol 0.042% Inhal Olivia (1.25mg/3ml) Ud) 1.25 mg INH RQ4 [facility] Last Admin: 01/28/18 15:34 Dose: 1.25 mg Allopurinol (Zyloprim) 300 mg PO DAILY [facility] Last Admin: 01/28/18 08:36 Dose: 300 mg Amlodipine Besylate (Norvasc) 10 mg PO DAILY [facility] Last Admin: 01/28/18 08:34 Dose: 10 mg Aspirin (Ecotrin) 81 mg PO DAILY [facility] Last Admin: 01/28/18 08:32 Dose: 81 mg Atorvastatin Calcium (Lipitor) 20 mg PO HS [facility] Last Admin: 01/27/18 23:39 Dose: 20 mg Docusate Sodium (Colace) 100 mg PO BID [facility] Last Admin: 01/28/18 16:51 Dose: 100 mg Enoxaparin Sodium (Lovenox) 40 mg SC DAILY [facility]; Protocol Last Admin: 01/28/18 11:35 Dose: 40 mg Furosemide (Lasix) 40 mg IVP DAILY [facility] Last Admin: 01/28/18 16:57 Dose: 40 mg Methylprednisolone (Solu-Medrol) 30 mg IVP Q8 [facility] Last Admin: 01/28/18 16:54 Dose: 30 mg Metoprolol Tartrate (Lopressor) 25 mg PO Q12 [facility] Last Admin: 01/28/18 08:33 Dose: 25 mg Pantoprazole Sodium (Protonix Ec Tab) 40 mg PO DAILY [facility] Last Admin: 01/28/18 08:34 Dose: 40 mg Fluticasone/Salmeterol (Advair Diskus 250/50) 1 puff IH Q12 [facility] Last Admin: 01/28/18 08:30 Dose: 1 puff Results - Vital Signs Recent Vital Signs: Last Vital Signs Temp 97.8 F 01/28/18 16:17 Pulse 72 01/28/18 16:17 Resp 20 01/28/18 16:17 BP 122/63 01/28/18 16:57 Pulse Ox 92 L 01/28/18 16:17 - Labs Result Diagrams: 01/28/18 04:50 01/28/18 04:50 Labs: Laboratory Results - last 24 hr 01/28/18 01/28/18 01/28/18 04:50 04:50 12:15 WBC 8.1 RBC 3.74 L Hgb 12.4 Hct 37.7 MCV 101.0 H MCH 33.1 H MCHC 32.8 L RDW 15.1 H Plt Count 153 Sodium 129 L Potassium 5.5 H Chloride 92 L Carbon Dioxide 27 Anion Gap 16 BUN 24 H Creatinine 0.9 Est GFR ( Amer) > 60 Est GFR (Non-Af Amer) > 60 Random Glucose 196 H Calcium 8.8 Total Bilirubin 0.6 AST 19 ALT 27 Alkaline Phosphatase 68 Total Protein 6.8 Albumin 3.6 Globulin 3.2 Albumin/Globulin Ratio 1.1 TSH 3rd Generation 0.81 Urine Color Urine Clarity Urine pH Ur Specific [place] Urine Protein Urine Glucose (UA) Urine Ketones Urine Blood Urine Nitrate Urine Bilirubin Urine Urobilinogen Ur Leukocyte Esterase Urine RBC (Auto) Urine Microscopic WBC Ur Squamous Epith Cells Hyaline Casts Urine Osmolality 377 Ur Random Sodium Ur Random Potassium 01/28/18 01/28/18 13:40 13:40 WBC RBC Hgb Hct MCV MCH MCHC RDW Plt Count Sodium Potassium Chloride Carbon Dioxide Anion Gap BUN Creatinine Est GFR ( Amer) Est GFR (Non-Af Amer) Random Glucose Calcium Total Bilirubin AST ALT Alkaline Phosphatase Total Protein Albumin Globulin Albumin/Globulin Ratio TSH 3rd Generation Urine Color Yellow Urine Clarity Clear Urine pH 5.0 Ur Specific [place] 1.013 Urine Protein Negative Urine Glucose (UA) 50 Urine Ketones Negative Urine Blood Negative Urine Nitrate Negative Urine Bilirubin Negative Urine Urobilinogen 0.2-1.0 Ur Leukocyte Esterase Neg Urine RBC (Auto) < 1 Urine Microscopic WBC 1 Ur Squamous Epith Cells < 1 Hyaline Casts 6-10 H Urine Osmolality Ur Random Sodium < 5 Ur Random Potassium 48.2
[2018-01-28] MEDS ORDERED: ceFAZolin 1 GM in Sodium Chloride 0.9% 100 ML IVPB SCH (20:00)
--- NOTE | 2018-01-28 20:07 | CP.PCM.HP ---
History of Present Illness - History of Present Illness History of Present Illness: 87 yo admitted for SOB and lower ext edema and erythema Present on Admission - Present on Admission Any Indicators Present on Admission: No Past Patient History - Past Medical History & Family History Past Medical History?: Yes - Past Social History Smoking Status: Former Smoker (stopped about three years ago) Chewing Tobacco Use: No Cigar Use: No Alcohol: > 2 Drinks/Day Drugs: Denies Home Situation {Lives}: With Family - CARDIAC Hx Atrial Fibrillation: Yes (current EKG) Hx Congestive Heart Failure: Yes Hx Hypercholesterolemia: Yes Hx Hypertension: Yes Hx Peripheral Edema: Yes Other/Comment: AO valve replacement - PULMONARY Hx Bronchitis: Yes Hx Chronic Obstructive Pulmonary Disease (COPD): Yes - NEUROLOGICAL Hx Neurological Disorder: No - HEENT Hx HEENT Problems: No - RENAL Hx Chronic Kidney Disease: No - ENDOCRINE/METABOLIC Hx Endocrine Disorders: No - HEMATOLOGICAL/ONCOLOGICAL Hx Blood Disorders: No Hx Human Immunodeficiency Virus (HIV): No - INTEGUMENTARY Other/Comment: skin lesion recently removed from left infra-ocular area - MUSCULOSKELETAL/RHEUMATOLOGICAL Hx Falls: No Hx Gout: Yes - GASTROINTESTINAL Hx Gastrointestinal Disorders: No - GENITOURINARY/GYNECOLOGICAL Hx Genitourinary Disorders: No - PSYCHIATRIC Hx Psychophysiologic Disorder: No Hx Substance Use: No - SURGICAL HISTORY Hx Valve Replacement: Yes (TAVR) Other/Comment: Laminectomy L3-L5 05/15/2017 - ANESTHESIA Hx Anesthesia: Yes Hx Anesthesia Reactions: No Hx Malignant Hyperthermia: No Has any member of the family had a problem w/ anesthesia?: No Meds Allergies/Adverse Reactions: Allergies Allergy/AdvReac Type Severity Reaction Status Date / Time No Known Allergies Allergy Verified 01/27/18 10:47 Physical Exam - Respiratory Exam Respiratory Exam: NORMAL BREATHING PATTERN - Cardiovascular Exam Cardiovascular Exam: REGULAR RHYTHM - GI/Abdominal Exam GI & Abdominal Exam: Normal Bowel Sounds Results - Vital Signs Recent Vital Signs: Last Vital Signs Temp 97.5 F L 01/28/18 19:54 Pulse 75 01/28/18 19:54 Resp 20 01/28/18 19:54 BP 138/65 01/28/18 19:54 Pulse Ox 98 01/28/18 19:54 - Labs Result Diagrams: 01/28/18 04:50 01/28/18 04:50 Labs: Laboratory Results - last 24 hr 01/28/18 01/28/18 01/28/18 04:50 04:50 12:15 WBC 8.1 RBC 3.74 L Hgb 12.4 Hct 37.7 MCV 101.0 H MCH 33.1 H MCHC 32.8 L RDW 15.1 H Plt Count 153 Sodium 129 L Potassium 5.5 H Chloride 92 L Carbon Dioxide 27 Anion Gap 16 BUN 24 H Creatinine 0.9 Est GFR ( Amer) > 60 Est GFR (Non-Af Amer) > 60 Random Glucose 196 H Calcium 8.8 Total Bilirubin 0.6 AST 19 ALT 27 Alkaline Phosphatase 68 Total Protein 6.8 Albumin 3.6 Globulin 3.2 Albumin/Globulin Ratio 1.1 TSH 3rd Generation 0.81 Urine Color Urine Clarity Urine pH Ur Specific [place] Urine Protein Urine Glucose (UA) Urine Ketones Urine Blood Urine Nitrate Urine Bilirubin Urine Urobilinogen Ur Leukocyte Esterase Urine RBC (Auto) Urine Microscopic WBC Ur Squamous Epith Cells Hyaline Casts Urine Osmolality 377 Ur Random Sodium Ur Random Potassium 01/28/18 01/28/18 13:40 13:40 WBC RBC Hgb Hct MCV MCH MCHC RDW Plt Count Sodium Potassium Chloride Carbon Dioxide Anion Gap BUN Creatinine Est GFR ( Amer) Est GFR (Non-Af Amer) Random Glucose Calcium Total Bilirubin AST ALT Alkaline Phosphatase Total Protein Albumin Globulin Albumin/Globulin Ratio TSH 3rd Generation Urine Color Yellow Urine Clarity Clear Urine pH 5.0 Ur Specific [place] 1.013 Urine Protein Negative Urine Glucose (UA) 50 Urine Ketones Negative Urine Blood Negative Urine Nitrate Negative Urine Bilirubin Negative Urine Urobilinogen 0.2-1.0 Ur Leukocyte Esterase Neg Urine RBC (Auto) < 1 Urine Microscopic WBC 1 Ur Squamous Epith Cells < 1 Hyaline Casts 6-10 H Urine Osmolality Ur Random Sodium < 5 Ur Random Potassium 48.2 Assessment & Plan - Assessment and Plan (Free Text) Assessment: SOB COPD Smoker steroids O2 CHF S/P TAVR Diuretics Pulmonary Cardiology Lower ext edema/ cellulitis ID ABX podiatry Hyponatremia 2 to fluid overload Hyperkalemia etiol?? Hold ARB Kaexylate Urine lytes Nephrology consult HTN Prediabetes S/P Low back surgery Severe Spinal Stenosis Post operative [place] - Date & Time Date: 01/28/18 Time: 22:22
[2018-01-29] MEDS: Albuterol 0.042% Inhal Sol (1.25 mg/3 mL) UD INH SCH ×7 (00:07→23:36)
[2018-01-29] MEDS: MethylPREDNISolone 40 mg Vial IVP SCH ×3 (01:28→21:56)
[2018-01-29] MEDS: ceFAZolin 1 GM in Sodium Chloride 0.9% 100 ML IVPB SCH ×3 (05:22→22:01)
[2018-01-29 05:54] LABS: BLOOD UREA NITROGEN 29 mg/dl (9-20); GFR NON-AFRICAN AMERICAN > 60
[2018-01-29] MEDS: Fluticasone-Salmeterol 250-50mcg Diskus IH SCH ×2 (10:00→22:13)
[2018-01-29] MEDS: Enoxaparin 40 mg Syringe SC SCH (10:01)
[2018-01-29] MEDS: Pantoprazole 40 mg EC Tab PO SCH (10:02)
--- NOTE | 2018-01-29 10:45 | CP.PCM.PN ---
Subjective - Date & Time of Evaluation Date of Evaluation: 01/29/18 Time of Evaluation: 10:43 - Subjective Subjective: Interim events reviewed. Discussed with nursing. Had kayexalate yesterday evening for hyperkalemia. Had BM, but complaining now of upset stomach. Breathing comfortably w/o any audible wheezing. Breath sounds are diminished equally in both lungs. No cough or sputum expectoration. Abdomen appears mildly distended and tympanitic. Started on antibiotic for cellulitis. Objective - Vital Signs/Intake and Output Vital Signs (last 24 hours): Temp Pulse Resp BP Pulse Ox 97.3 F L 81 18 133/68 92 L 01/29/18 07:57 01/29/18 10:03 01/29/18 07:57 01/29/18 10:03 01/29/18 07:57 - Medications Medications: Current Medications Albuterol (Ventolin Hfa 90 Mcg/Actuation (8 G)) 1 puff INH RQ6 PRN PRN Reason: Shortness of Breath Albuterol Sulfate (Albuterol 0.042% Inhal Olivia (1.25mg/3ml) Ud) 1.25 mg INH RQ4 [facility] Last Admin: 01/29/18 08:22 Dose: 1.25 mg Allopurinol (Zyloprim) 300 mg PO DAILY [facility] Last Admin: 01/29/18 10:02 Dose: 300 mg Amlodipine Besylate (Norvasc) 10 mg PO DAILY [facility] Last Admin: 01/29/18 10:03 Dose: 10 mg Aspirin (Ecotrin) 81 mg PO DAILY [facility] Last Admin: 01/29/18 10:03 Dose: 81 mg Atorvastatin Calcium (Lipitor) 20 mg PO HS [facility] Last Admin: 01/28/18 23:07 Dose: 20 mg Docusate Sodium (Colace) 100 mg PO BID [facility] Last Admin: 01/29/18 10:01 Dose: 100 mg Enoxaparin Sodium (Lovenox) 40 mg SC DAILY [facility]; Protocol Last Admin: 01/29/18 10:01 Dose: 40 mg Furosemide (Lasix) 40 mg IVP DAILY [facility] Last Admin: 01/29/18 10:03 Dose: 40 mg Cefazolin Sodium 1 gm/ Sodium (Chloride) 100 mls @ 100 mls/hr IVPB Q8@0600,1400,2200 [facility]; Protocol Last Admin: 01/29/18 05:22 Dose: 100 mls/hr Methylprednisolone (Solu-Medrol) 30 mg IVP Q8 [facility] Last Admin: 01/29/18 10:01 Dose: 30 mg Metoprolol Tartrate (Lopressor) 25 mg PO Q12 [facility] Last Admin: 01/29/18 10:02 Dose: 25 mg Pantoprazole Sodium (Protonix Ec Tab) 40 mg PO DAILY [facility] Last Admin: 01/29/18 10:02 Dose: 40 mg Fluticasone/Salmeterol (Advair Diskus 250/50) 1 puff IH Q12 [facility] Last Admin: 01/29/18 10:00 Dose: 1 puff - Labs Labs: 01/28/18 04:50 01/29/18 04:25 PT 12.5 Seconds (9.8-13.1) 01/27/18 10:57 INR 1.1 01/27/18 10:57 APTT 35.0 Seconds (25.6-37.1) 01/27/18 10:57 Assessment and Plan (1) COPD with exacerbation Status: Acute (2) Hyponatremia Status: Acute (3) Hypoxemia Status: Chronic (4) Leg edema Status: Chronic
[2018-01-29] MEDS ORDERED: Alum-Mag Hydrox-Simethicone Susp (30 mL) PO ONE (11:00)
--- NOTE | 2018-01-29 14:10 | CP.PCM.CON ---
History of Present Illness - History of Present Illness History of Present Illness: 87 YO MALE WITH COMPLEX HX INCLUDING CAD COPD S/OP TAVR REFERRED FOR ID EVAL OF CELLULITIS LOWER LEGS R> L Review of Systems - Constitutional Constitutional: As Per HPI - EENT Eyes: absent: As Per HPI, Blind Spots, Blurred Vision, Change in Vision, Decreased Night Vision, Diplopia, Discharge, Dry Eye, Exophthalmos, Floaters, Irritation, Itchy Eyes, Loss of Peripheral Vision, Pain, Photophobia, Requires Corrective Lenses, Sees Flashes, Spots in Vision, Tunnel Vision, Other Visual Disturbances, Loss of Vision, Other Ears: absent: As Per HPI, Decreased Hearing, Ear Discharge, Ear Pain, Tinnitus, Abnormal Hearing, Disequilibrium, Dizziness, Other Nose/Mouth/Throat: absent: As Per HPI, Epistaxis, Nasal Congestion, Nasal Discharge, Nasal Obstruction, Nasal Trauma, Nose Pain, Post Nasal Drip, Sinus Pain, Sinus Pressure, Bleeding Gums, Change in Voice, Dental Pain, Dry Mouth, Dysphagia, Halitosis, Hoarsness, Lip Swelling, Mouth Lesions, Mouth Pain, Odynophagia, Sore Throat, Throat Swelling, Tongue Swelling, Facial Pain, Neck Pain, Neck Mass, Other - Cardiovascular Cardiovascular: As Per HPI - Respiratory Respiratory: As Per HPI, Dyspnea, Dyspnea on Exertion - Gastrointestinal Gastrointestinal: absent: As Per HPI, Abdominal Pain, Belching, Bloating, Change in Bowel Habits, Change in Stool Character, Coffee Ground Emesis, Constipation, Cramping, Diarrhea, Dyspepsia, Dysphagia, Early Satiety, Excessive Flatus, Fecal Incontinence, Heartburn, Hematemesis, Hematochezia, Loose Stools, Melena, Nausea, Odynophagia, Temesmus, Vomiting, Other - Genitourinary Genitourinary: absent: As Per HPI, Change in Urinary Stream, Difficulty Urinating, Dysuria, Flank Pain, Hematuria, Pyuria, Nocturia, Urinary Incontinen ce, Urinary Frequency, Urinary Hesitance, Urinary Urgency, Voiding Freq/Small Amts, Freq UTI, Hx Renal/Bladder Calculi, Hx /Renal Surgery, Bladder Distension, Other - Musculoskeletal Musculoskeletal: As Per HPI - Integumentary Integumentary: As Per HPI, Skin Pain - Neurological Neurological: absent: As Per HPI, Abnormal Gait, Abnormal Hearing, Abnormal Movements, Abnormal Speech, Behavioral Changes, Burning Sensations, Confusion, Convulsions, Disequilibrium, Dizziness, Numbness, Focal Weakness, Frequent Falls, Headaches, Lack of Coordination, Loss of Vision, Memory Loss, Par esthesias, Radicular Pain, Restless Legs, Sensory Deficit, Syncope, Tingling, Tremor, Vertigo, Weakness, Other Visual Disturbances, Other - Psychiatric Psychiatric: absent: As Per HPI, Abnormal Sleep Pattern, Anhedonia, Anxiety, Auditory Hallucinations, Behavioral Changes, Change in Appetite, Change in Libido, Confusion, Depression, Difficulty Concentrating, Hallucinations, Homicidal Ideation, Hopelessness, Irritability, Memory Loss, Mood Swings, Panic Attacks, Paranoia, Suicidal Ideation, Visual Hallucinations, Tactile Hallucinations, Other Past Patient History - Past Medical History & Family History Past Medical History?: Yes - Past Social History Smoking Status: Former Smoker (stopped about three years ago) Chewing Tobacco Use: No Cigar Use: No Alcohol: > 2 Drinks/Day Drugs: Denies Home Situation {Lives}: With Family - CARDIAC Hx Atrial Fibrillation: Yes (current EKG) Hx Congestive Heart Failure: Yes Hx Hypercholesterolemia: Yes Hx Hypertension: Yes Hx Peripheral Edema: Yes Other/Comment: AO valve replacement - PULMONARY Hx Bronchitis: Yes Hx Chronic Obstructive Pulmonary Disease (COPD): Yes - NEUROLOGICAL Hx Neurological Disorder: No - HEENT Hx HEENT Problems: No - RENAL Hx Chronic Kidney Disease: No - ENDOCRINE/METABOLIC Hx Endocrine Disorders: No - HEMATOLOGICAL/ONCOLOGICAL Hx Blood Disorders: No Hx Human Immunodeficiency Virus (HIV): No - INTEGUMENTARY Other/Comment: skin lesion recently removed from left infra-ocular area - MUSCULOSKELETAL/RHEUMATOLOGICAL Hx Falls: No Hx Gout: Yes - GASTROINTESTINAL Hx Gastrointestinal Disorders: No - GENITOURINARY/GYNECOLOGICAL Hx Genitourinary Disorders: No - PSYCHIATRIC Hx Psychophysiologic Disorder: No Hx Substance Use: No - SURGICAL HISTORY Hx Valve Replacement: Yes (TAVR) Other/Comment: Laminectomy L3-L5 05/15/2017 - ANESTHESIA Hx Anesthesia: Yes Hx Anesthesia Reactions: No Hx Malignant Hyperthermia: No Has any member of the family had a problem w/ anesthesia?: No Meds Allergies/Adverse Reactions: Allergies Allergy/AdvReac Type Severity Reaction Status Date / Time No Known Allergies Allergy Verified 01/27/18 10:47 - Medications Medications: Current Medications Albuterol (Ventolin Hfa 90 Mcg/Actuation (8 G)) 1 puff INH RQ6 PRN PRN Reason: Shortness of Breath Albuterol Sulfate (Albuterol 0.042% Inhal Olivia (1.25mg/3ml) Ud) 1.25 mg INH RQ4 [facility] Last Admin: 01/29/18 11:32 Dose: 1.25 mg Allopurinol (Zyloprim) 300 mg PO DAILY [facility] Last Admin: 01/29/18 10:02 Dose: 300 mg Amlodipine Besylate (Norvasc) 10 mg PO DAILY [facility] Last Admin: 01/29/18 10:03 Dose: 10 mg Aspirin (Ecotrin) 81 mg PO DAILY [facility] Last Admin: 01/29/18 10:03 Dose: 81 mg Atorvastatin Calcium (Lipitor) 20 mg PO HS [facility] Last Admin: 01/28/18 23:07 Dose: 20 mg Docusate Sodium (Colace) 100 mg PO BID [facility] Last Admin: 01/29/18 10:01 Dose: 100 mg Enoxaparin Sodium (Lovenox) 40 mg SC DAILY [facility]; Protocol Last Admin: 01/29/18 10:01 Dose: 40 mg Furosemide (Lasix) 40 mg IVP DAILY [facility] Last Admin: 01/29/18 10:03 Dose: 40 mg Cefazolin Sodium 1 gm/ Sodium (Chloride) 100 mls @ 100 mls/hr IVPB Q8@0600,1400,2200 [facility]; Protocol Last Admin: 01/29/18 14:02 Dose: 100 mls/hr Methylprednisolone (Solu-Medrol) 30 mg IVP Q12 [facility] Metoprolol Tartrate (Lopressor) 25 mg PO Q12 [facility] Last Admin: 01/29/18 10:02 Dose: 25 mg Pantoprazole Sodium (Protonix Ec Tab) 40 mg PO DAILY [facility] Last Admin: 01/29/18 10:02 Dose: 40 mg Fluticasone/Salmeterol (Advair Diskus 250/50) 1 puff IH Q12 [facility] Last Admin: 01/29/18 10:00 Dose: 1 puff Physical Exam - Constitutional Appears: No Acute Distress, Chronically Ill - Head Exam Head Exam: ATRAUMATIC, NORMOCEPHALIC - Eye Exam Eye Exam: PERRL - ENT Exam ENT Exam: Mucous Membranes Dry - Neck Exam Neck exam: Negative for: Lymphadenopathy - Respiratory Exam Respiratory Exam: Decreased Breath Sounds - Cardiovascular Exam Cardiovascular Exam: REGULAR RHYTHM - GI/Abdominal Exam GI & Abdominal Exam: Diminished Bowel Sounds, Soft. absent: Tenderness - Rectal Exam Rectal Exam: Deferred - Exam Exam: NORMAL INSPECTION - Extremities Exam Extremities exam: Positive for: pedal edema, tenderness, pedal pulses present. Negative for: calf tenderness Additional comments: CELLULITIS R>lL - Back Exam Back exam: absent: CVA tenderness (L), CVA tenderness (R) - Neurological Exam Neurological exam: Alert, CN II-XII Intact, Oriented x3, Reflexes Normal - Psychiatric Exam Psychiatric exam: Normal Mood - Skin Skin Exam: Dry Results - Vital Signs Recent Vital Signs: Last Vital Signs Temp 97.9 F 01/29/18 12:00 Pulse 83 01/29/18 12:00 Resp 18 01/29/18 12:00 BP 130/71 01/29/18 12:00 Pulse Ox 90 L 01/29/18 12:00 - Labs Result Diagrams: 01/31/18 06:00 01/31/18 06:00 Labs: Laboratory Results - last 24 hr 01/28/18 01/28/18 01/28/18 12:15 13:40 15:35 Sodium Potassium Chloride Carbon Dioxide Anion Gap BUN Creatinine Est GFR ( Amer) Est GFR (Non-Af Amer) POC Glucose (mg/dL) 208 H Random Glucose Calcium Urine Color Yellow Urine Clarity Clear Urine pH 5.0 Ur Specific Kake 1.013 Urine Protein Negative Urine Glucose (UA) 50 Urine Ketones Negative Urine Blood Negative Urine Nitrate Negative Urine Bilirubin Negative Urine Urobilinogen 0.2-1.0 Ur Leukocyte Esterase Neg Urine RBC (Auto) < 1 Urine Microscopic WBC 1 Ur Squamous Epith Cells < 1 Hyaline Casts 6-10 H Urine Osmolality 377 01/29/18 04:25 Sodium 134 Potassium 4.1 Chloride 93 L Carbon Dioxide 28 Anion Gap 17 BUN 29 H Creatinine 1.0 Est GFR ( Amer) > 60 Est GFR (Non-Af Amer) > 60 POC Glucose (mg/dL) Random Glucose 198 H Calcium 9.0 Urine Color Urine Clarity Urine pH Ur Specific Kake Urine Protein Urine Glucose (UA) Urine Ketones Urine Blood Urine Nitrate Urine Bilirubin Urine Urobilinogen Ur Leukocyte Esterase Urine RBC (Auto) Urine Microscopic WBC Ur Squamous Epith Cells Hyaline Casts Urine Osmolality Assessment & Plan (1) Atrial fibrillation Status: Acute (2) CHF (congestive heart failure) Status: Acute (3) COPD (chronic obstructive pulmonary disease) Status: Acute (4) Leg pain Status: Acute Priority: High (5) Leukocytosis Status: Acute (6) Aortic stenosis Status: Chronic Priority: High (7) COPD (chronic obstructive pulmonary disease) with chronic bronchitis Status: Chronic Priority: High (8) Cough Status: Chronic Priority: High (9) Leg edema Status: Chronic Priority: High - Assessment and Plan (Free Text) Assessment: STASIS CHANGES / CONGESTION BOTH LEGS R/O CELLULITIS CONT RX ORDERED
--- NOTE | 2018-01-29 15:37 | CP.PCM.PN ---
Subjective - Date & Time of Evaluation Date of Evaluation: 01/29/18 Time of Evaluation: 15:36 - Subjective Subjective: RENAL Consult Note CC: leg swelling reason for consult: hyperkalemia and hyponatremia HPI: pt is a 87 M with hx of HTN COPD s/p TAVR admitted to hospital with worsening SOB for last few days with cough and leg edema and found to have COPD/CHF exacerbation and renal consult for electrolytes eval pt reports worsening leg swelling. SOB better. cough improved. no nausea/vomitting or urine complaints no issues with K or Na in past s: seen and examined no new complaints. feels better no CP/nausea/vomitting. all other negative except as mentioned in hpi. improved SOB stomach upset and distension, gas reported by pt. o/e: vss, obese male gen: nad sclera: anicteric heent; perrla op: clear neck: supple no thyromegaly lungs: b/l air entry reduced at bases with crackles cv: +S1+s2 no rub abd: soft no organomegaly nt/nd, distended and tympanic ext: 1+ edema with erythematous changes neuro: A+OX3 no focal deficit psych: nml affect/mood. limited insight skin: No rash no ulcer except erythema in legs work up: cxr: CHF pattern with small effusions echo normal LVEF TSh 2.4 imp: hypervolemic hyponatremia likely fluid overload and diastolic CHF exacerbation hyperkalemia due to impaired distal tubule sodium delivery as evident by urine Na <5 HTN, COPD exacerbation s/p TAVR Obesity leg cellulitis plan: Cr stable continue to monitor bp controlled. hold acei/arb due to elevated K, can resume at d/c and or soon change lasix to 40 mg IVP daily. low Na diet glycemic control management of COPD as per primary team ID following dose meds for GFR >60 thanks for consult Please call if any Qs [phone] Objective - Vital Signs/Intake and Output Vital Signs (last 24 hours): Temp Pulse Resp BP Pulse Ox 97.9 F 83 18 130/71 90 L 01/29/18 12:00 01/29/18 12:00 01/29/18 12:00 01/29/18 12:00 01/29/18 12:00 - Medications Medications: Current Medications Albuterol (Ventolin Hfa 90 Mcg/Actuation (8 G)) 1 puff INH RQ6 PRN PRN Reason: Shortness of Breath Albuterol Sulfate (Albuterol 0.042% Inhal Olivia (1.25mg/3ml) Ud) 1.25 mg INH RQ4 [facility] Last Admin: 01/29/18 15:03 Dose: 1.25 mg Allopurinol (Zyloprim) 300 mg PO DAILY [facility] Last Admin: 01/29/18 10:02 Dose: 300 mg Amlodipine Besylate (Norvasc) 10 mg PO DAILY [facility] Last Admin: 01/29/18 10:03 Dose: 10 mg Aspirin (Ecotrin) 81 mg PO DAILY [facility] Last Admin: 01/29/18 10:03 Dose: 81 mg Atorvastatin Calcium (Lipitor) 20 mg PO HS [facility] Last Admin: 01/28/18 23:07 Dose: 20 mg Clobetasol Propionate (Temovate Cream) 1 applic TOP BID [facility] Docusate Sodium (Colace) 100 mg PO BID [facility] Last Admin: 01/29/18 10:01 Dose: 100 mg Enoxaparin Sodium (Lovenox) 40 mg SC DAILY [facility]; Protocol Last Admin: 01/29/18 10:01 Dose: 40 mg Furosemide (Lasix) 40 mg IVP DAILY [facility] Last Admin: 01/29/18 10:03 Dose: 40 mg Cefazolin Sodium 1 gm/ Sodium (Chloride) 100 mls @ 100 mls/hr IVPB Q8@0600,1400,2200 [facility]; Protocol Last Admin: 01/29/18 14:02 Dose: 100 mls/hr Methylprednisolone (Solu-Medrol) 30 mg IVP Q12 [facility] Metoprolol Tartrate (Lopressor) 25 mg PO Q12 [facility] Last Admin: 01/29/18 10:02 Dose: 25 mg Pantoprazole Sodium (Protonix Ec Tab) 40 mg PO DAILY [facility] Last Admin: 01/29/18 10:02 Dose: 40 mg Fluticasone/Salmeterol (Advair Diskus 250/50) 1 puff IH Q12 [facility] Last Admin: 01/29/18 10:00 Dose: 1 puff - Labs Labs: 01/28/18 04:50 01/29/18 04:25 PT 12.5 Seconds (9.8-13.1) 01/27/18 10:57 INR 1.1 01/27/18 10:57 APTT 35.0 Seconds (25.6-37.1) 01/27/18 10:57
--- NOTE | 2018-01-29 17:58 | CP.PCM.PN ---
Subjective - Date & Time of Evaluation Date of Evaluation: 01/29/18 Time of Evaluation: 22:22 - Subjective Subjective: Above noted Objective - Vital Signs/Intake and Output Vital Signs (last 24 hours): Temp Pulse Resp BP Pulse Ox 98.3 F 82 18 147/73 93 L 01/29/18 15:55 01/29/18 15:55 01/29/18 15:55 01/29/18 15:55 01/29/18 15:55 - Medications Medications: Current Medications Albuterol (Ventolin Hfa 90 Mcg/Actuation (8 G)) 1 puff INH RQ6 PRN PRN Reason: Shortness of Breath Albuterol Sulfate (Albuterol 0.042% Inhal Olivia (1.25mg/3ml) Ud) 1.25 mg INH RQ4 [facility] Last Admin: 01/29/18 15:03 Dose: 1.25 mg Allopurinol (Zyloprim) 300 mg PO DAILY [facility] Last Admin: 01/29/18 10:02 Dose: 300 mg Amlodipine Besylate (Norvasc) 10 mg PO DAILY [facility] Last Admin: 01/29/18 10:03 Dose: 10 mg Aspirin (Ecotrin) 81 mg PO DAILY [facility] Last Admin: 01/29/18 10:03 Dose: 81 mg Atorvastatin Calcium (Lipitor) 20 mg PO HS [facility] Last Admin: 01/28/18 23:07 Dose: 20 mg Clobetasol Propionate (Temovate Cream) 1 applic TOP BID [facility] Last Admin: 01/29/18 17:20 Dose: 1 applic Docusate Sodium (Colace) 100 mg PO BID [facility] Last Admin: 01/29/18 17:19 Dose: 100 mg Enoxaparin Sodium (Lovenox) 40 mg SC DAILY [facility]; Protocol Last Admin: 01/29/18 10:01 Dose: 40 mg Furosemide (Lasix) 40 mg IVP DAILY [facility] Last Admin: 01/29/18 10:03 Dose: 40 mg Cefazolin Sodium 1 gm/ Sodium (Chloride) 100 mls @ 100 mls/hr IVPB Q8@0600,1400,2200 [facility]; Protocol Last Admin: 01/29/18 14:02 Dose: 100 mls/hr Methylprednisolone (Solu-Medrol) 30 mg IVP Q12 [facility] Metoprolol Tartrate (Lopressor) 25 mg PO Q12 [facility] Last Admin: 01/29/18 10:02 Dose: 25 mg Pantoprazole Sodium (Protonix Ec Tab) 40 mg PO DAILY [facility] Last Admin: 01/29/18 10:02 Dose: 40 mg Fluticasone/Salmeterol (Advair Diskus 250/50) 1 puff IH Q12 [facility] Last Admin: 01/29/18 10:00 Dose: 1 puff - Labs Labs: 01/28/18 04:50 01/29/18 04:25 PT 12.5 Seconds (9.8-13.1) 01/27/18 10:57 INR 1.1 01/27/18 10:57 APTT 35.0 Seconds (25.6-37.1) 01/27/18 10:57 - Respiratory Exam Respiratory Exam: NORMAL BREATHING PATTERN - Cardiovascular Exam Cardiovascular Exam: REGULAR RHYTHM - GI/Abdominal Exam GI & Abdominal Exam: Normal Bowel Sounds Assessment and Plan - Assessment and Plan (Free Text) Assessment: SOB COPD Smoker steroids O2 CHF S/P TAVR Diuretics Pulmonary Cardiology Bilat Lower ext edema/ cellulitis ID ABX podiatry Hyponatremia 2 to fluid overload Hyperkalemia etiol?? Hold ARB Kaexylate Urine lytes Nephrology consult HTN Prediabetes S/P Low back surgery Severe Spinal Stenosis Post operative illeus
--- NOTE | 2018-01-29 19:14 | CP.PCM.CON ---
<Nohelia Piper - Last Filed: 01/30/18 07:12> History of Present Illness - History of Present Illness History of Present Illness: General Surgery consult note for Dr. Lancaster Consulted for abd pain and distention Patient is a 87 yr old male with PMH CHF, HTN, HLD, Bronchitis, COPD (noncompliant with home o2), gout who was originally admitted 01/27 for persistent cough and SOB. Yesterday evening the patient recieved Kayexalate for treatment of K 5.5. After taking the medication he states that he began to have abdominal discomfort and increasing distention. He endorses 2-3 liquid BM today with no blood or tarry stools. He states that his last normal BM was 2-3 days ago. He denies and N/v but states that he has no appetite and is not hungry. Patient denies having had an episode like this in the past. His last colonocopy was in May of this year and showed no abnormalities. He otherwise denies IRENE, CP, SOB, dizziness, f/c, n/v, bloody or tarry stools, dysuria. Of note stool seen in bedside commode is liquid, nonbloody and brown/yellow PMH: CHF, HTN, HLD, Bronchitis, COPD (noncompliant with home o2), gout PSH:TAVR, lumbar laminectomy 05/17 All: nkda Social: former smoker, 2 drinks per day ETOH, denies illicit drugs Review of Systems - Review of Systems All systems: reviewed and no additional remarkable complaints except (as per HPI) Past Patient History - Past Medical History & Family History Past Medical History?: Yes - Past Social History Smoking Status: Former Smoker (stopped about three years ago) Chewing Tobacco Use: No Cigar Use: No Alcohol: > 2 Drinks/Day Drugs: Denies Home Situation {Lives}: With Family - CARDIAC Hx Atrial Fibrillation: Yes (current EKG) Hx Congestive Heart Failure: Yes Hx Hypercholesterolemia: Yes Hx Hypertension: Yes Hx Peripheral Edema: Yes Other/Comment: AO valve replacement - PULMONARY Hx Bronchitis: Yes Hx Chronic Obstructive Pulmonary Disease (COPD): Yes - NEUROLOGICAL Hx Neurological Disorder: No - HEENT Hx HEENT Problems: No - RENAL Hx Chronic Kidney Disease: No - ENDOCRINE/METABOLIC Hx Endocrine Disorders: No - HEMATOLOGICAL/ONCOLOGICAL Hx Blood Disorders: No Hx Human Immunodeficiency Virus (HIV): No - INTEGUMENTARY Other/Comment: skin lesion recently removed from left infra-ocular area - MUSCULOSKELETAL/RHEUMATOLOGICAL Hx Falls: No Hx Gout: Yes - GASTROINTESTINAL Hx Gastrointestinal Disorders: No - GENITOURINARY/GYNECOLOGICAL Hx Genitourinary Disorders: No - PSYCHIATRIC Hx Psychophysiologic Disorder: No Hx Substance Use: No - SURGICAL HISTORY Hx Valve Replacement: Yes (TAVR) Other/Comment: Laminectomy L3-L5 05/15/2017 - ANESTHESIA Hx Anesthesia: Yes Hx Anesthesia Reactions: No Hx Malignant Hyperthermia: No Has any member of the family had a problem w/ anesthesia?: No Meds Allergies/Adverse Reactions: Allergies Allergy/AdvReac Type Severity Reaction Status Date / Time No Known Allergies Allergy Verified 01/27/18 10:47 - Medications Medications: Current Medications Albuterol (Ventolin Hfa 90 Mcg/Actuation (8 G)) 1 puff INH RQ6 PRN PRN Reason: Shortness of Breath Albuterol Sulfate (Albuterol 0.042% Inhal Olivia (1.25mg/3ml) Ud) 1.25 mg INH RQ4 [facility] Last Admin: 01/29/18 19:09 Dose: 1.25 mg Allopurinol (Zyloprim) 300 mg PO DAILY [facility] Last Admin: 01/29/18 10:02 Dose: 300 mg Amlodipine Besylate (Norvasc) 10 mg PO DAILY [facility] Last Admin: 01/29/18 10:03 Dose: 10 mg Aspirin (Ecotrin) 81 mg PO DAILY [facility] Last Admin: 01/29/18 10:03 Dose: 81 mg Atorvastatin Calcium (Lipitor) 20 mg PO HS [facility] Last Admin: 01/28/18 23:07 Dose: 20 mg Clobetasol Propionate (Temovate Cream) 1 applic TOP BID [facility] Last Admin: 01/29/18 17:20 Dose: 1 applic Docusate Sodium (Colace) 100 mg PO BID [facility] Last Admin: 01/29/18 17:19 Dose: 100 mg Enoxaparin Sodium (Lovenox) 40 mg SC DAILY [facility]; Protocol Last Admin: 01/29/18 10:01 Dose: 40 mg Furosemide (Lasix) 40 mg IVP DAILY [facility] Last Admin: 01/29/18 10:03 Dose: 40 mg Cefazolin Sodium 1 gm/ Sodium (Chloride) 100 mls @ 100 mls/hr IVPB Q8@0600,1400,2200 [facility]; Protocol Last Admin: 01/29/18 14:02 Dose: 100 mls/hr Methylprednisolone (Solu-Medrol) 30 mg IVP Q12 [facility] Metoprolol Tartrate (Lopressor) 25 mg PO Q12 [facility] Last Admin: 01/29/18 10:02 Dose: 25 mg Pantoprazole Sodium (Protonix Ec Tab) 40 mg PO DAILY [facility] Last Admin: 01/29/18 10:02 Dose: 40 mg Fluticasone/Salmeterol (Advair Diskus 250/50) 1 puff IH Q12 [facility] Last Admin: 01/29/18 10:00 Dose: 1 puff Physical Exam - Constitutional Appears: Well, Non-toxic, No Acute Distress - Head Exam Head Exam: ATRAUMATIC, NORMOCEPHALIC - Eye Exam Eye Exam: EOMI - ENT Exam ENT Exam: Mucous Membranes Moist - Respiratory Exam Respiratory Exam: NORMAL BREATHING PATTERN - Cardiovascular Exam Cardiovascular Exam: REGULAR RHYTHM - GI/Abdominal Exam GI & Abdominal Exam: Distended, Soft, Tenderness (mild). absent: Guarding, Rebound, Rigid - Extremities Exam Extremities exam: Positive for: pedal edema, pedal pulses present. Negative for: calf tenderness, tenderness - Neurological Exam Neurological exam: Alert, Oriented x3 - Psychiatric Exam Psychiatric exam: Normal Affect, Normal Mood - Skin Skin Exam: Dry, Erythema (distal legs bilaterally consistent with previous dx of cellulitis), Intact, Warm Results - Vital Signs Recent Vital Signs: Last Vital Signs Temp 98.3 F 01/29/18 15:55 Pulse 82 01/29/18 15:55 Resp 18 01/29/18 15:55 BP 147/73 01/29/18 15:55 Pulse Ox 93 L 01/29/18 15:55 - Labs Result Diagrams: 01/28/18 04:50 01/29/18 04:25 Labs: Laboratory Results - last 24 hr 01/28/18 01/29/18 15:35 04:25 Sodium 134 Potassium 4.1 Chloride 93 L Carbon Dioxide 28 Anion Gap 17 BUN 29 H Creatinine 1.0 Est GFR ( Amer) > 60 Est GFR (Non-Af Amer) > 60 POC Glucose (mg/dL) 208 H Random Glucose 198 H Calcium 9.0 Assessment & Plan - Assessment and Plan (Free Text) Assessment: 87 yr old male with likely ileus vs SBO Plan: CT AP w/ PO and IV contrast ordered f/u Ct results NPO after CT NS @ 60 repeat AM labs d/w Dr. Lancaster, all further recs per him Nohelia Piper, PGY 1 - Date & Time Date: 01/29/18 Time: 18:50 <Roly Lancaster - Last Filed: 01/30/18 16:33> History of Present Illness - History of Present Illness History of Present Illness: Patient was seen and examined at the bedside. Agree with resident's note above. Meds - Medications Medications: Current Medications Albuterol (Ventolin Hfa 90 Mcg/Actuation (8 G)) 1 puff INH RQ6 PRN PRN Reason: Shortness of Breath Albuterol Sulfate (Albuterol 0.042% Inhal Olivia (1.25mg/3ml) Ud) 1.25 mg INH RQ4 [facility] Last Admin: 01/30/18 15:00 Dose: 1.25 mg Allopurinol (Zyloprim) 300 mg PO DAILY [facility] Last Admin: 01/30/18 09:02 Dose: 300 mg Amlodipine Besylate (Norvasc) 10 mg PO DAILY [facility] Last Admin: 01/30/18 09:03 Dose: 10 mg Aspirin (Ecotrin) 81 mg PO DAILY [facility] Last Admin: 01/30/18 09:04 Dose: 81 mg Atorvastatin Calcium (Lipitor) 20 mg PO HS [facility] Last Admin: 01/29/18 21:56 Dose: 20 mg Clobetasol Propionate (Temovate Cream) 1 applic TOP BID [facility] Last Admin: 01/30/18 09:05 Dose: 1 applic Docusate Sodium (Colace) 100 mg PO BID [facility] Last Admin: 01/30/18 09:04 Dose: Not Given Enoxaparin Sodium (Lovenox) 40 mg SC DAILY [facility]; Protocol Last Admin: 01/30/18 09:03 Dose: 40 mg Furosemide (Lasix) 40 mg IVP DAILY [facility] Last Admin: 01/30/18 09:04 Dose: 40 mg Cefazolin Sodium 1 gm/ Sodium (Chloride) 100 mls @ 100 mls/hr IVPB Q8@0600,1400,2200 [facility]; Protocol Last Admin: 01/30/18 13:18 Dose: 100 mls/hr Sodium Chloride (Sodium Chloride 0.9%) 1,000 mls @ 60 mls/hr IV .[id number] [facility] Stop: 01/31/18 03:42 Last Admin: 01/30/18 04:00 Dose: 60 mls/hr Methylprednisolone (Solu-Medrol) 30 mg IVP Q12 [facility] Last Admin: 01/30/18 09:02 Dose: 30 mg Metoprolol Tartrate (Lopressor) 25 mg PO Q12 [facility] Last Admin: 01/30/18 09:02 Dose: 25 mg Pantoprazole Sodium (Protonix Ec Tab) 40 mg PO DAILY [facility] Last Admin: 01/30/18 09:03 Dose: 40 mg Fluticasone/Salmeterol (Advair Diskus 250/50) 1 puff IH Q12 [facility] Last Admin: 01/30/18 09:04 Dose: 1 puff Physical Exam - GI/Abdominal Exam Additional comments: soft, distended, mildly tender to palpation, BS+, no rebound, no guarding Results - Vital Signs Recent Vital Signs: Last Vital Signs Temp 99.1 F 01/30/18 15:47 Pulse 77 01/30/18 15:47 Resp 20 01/30/18 15:47 BP 131/65 01/30/18 15:47 Pulse Ox 91 L 01/30/18 15:47 - Labs Result Diagrams: 01/30/18 06:45 01/30/18 06:45 Labs: Laboratory Results - last 24 hr 01/30/18 01/30/18 01/30/18 06:45 06:45 06:45 WBC 13.6 H D RBC 3.82 L Hgb 12.6 Hct 38.2 MCV 100.0 H MCH 32.9 H MCHC 32.8 L RDW 15.3 H Plt Count 150 MPV 7.6 Neut % (Auto) 93.3 H Lymph % (Auto) 1.4 L Webster % (Auto) 4.6 Eos % (Auto) 0.0 Baso % (Auto) 0.7 Neut # (Auto) 12.6 H Lymph # (Auto) 0.2 L Webster # (Auto) 0.6 Eos # (Auto) 0.0 Baso # (Auto) 0.1 Neutrophils % (Manual) 90 H Lymphocytes % (Manual) 2 L Reactive Lymphs % 3 H Monocytes % (Manual) 5 Platelet Estimate Normal Anisocytosis (manual) Slight Tear Drop Cells Slight Ovalocytes Slight pCO2 pO2 HCO3 ABG pH ABG Total CO2 ABG O2 Saturation ABG O2 Content ABG Base Excess ABG Hemoglobin ABG Carboxyhemoglobin POC ABG HHb (Measured) ABG Methemoglobin ABG O2 Capacity Nam Test A-a O2 Difference Hgb O2 Saturation FiO2 Sodium 137 Potassium 3.7 Chloride 97 L Carbon Dioxide 31 H Anion Gap 13 BUN 21 H Creatinine 0.7 L Est GFR ( Amer) > 60 Est GFR (Non-Af Amer) > 60 Random Glucose 185 H Lactic Acid 1.3 Calcium 9.0 Phosphorus 4.4 Magnesium 2.0 Total Bilirubin 0.5 AST 33 ALT 28 Alkaline Phosphatase 55 Total Protein 6.5 Albumin 3.6 Globulin 2.8 Albumin/Globulin Ratio 1.3 01/30/18 07:05 WBC RBC Hgb Hct MCV MCH MCHC RDW Plt Count MPV Neut % (Auto) Lymph % (Auto) Webster % (Auto) Eos % (Auto) Baso % (Auto) Neut # (Auto) Lymph # (Auto) Webster # (Auto) Eos # (Auto) Baso # (Auto) Neutrophils % (Manual) Lymphocytes % (Manual) Reactive Lymphs % Monocytes % (Manual) Platelet Estimate Anisocytosis (manual) Tear Drop Cells Ovalocytes pCO2 51 H pO2 66 L HCO3 30.4 H ABG pH 7.42 ABG Total CO2 34.7 H ABG O2 Saturation 95.9 ABG O2 Content 17.1 ABG Base Excess 7.2 H ABG Hemoglobin 13.2 ABG Carboxyhemoglobin 2.2 H POC ABG HHb (Measured) 3.9 ABG Methemoglobin 1.6 ABG O2 Capacity 17.8 Nam Test Yes A-a O2 Difference 70.0 Hgb O2 Saturation 92.3 L FiO2 28.0 Sodium Potassium Chloride Carbon Dioxide Anion Gap BUN Creatinine Est GFR ( Amer) Est GFR (Non-Af Amer) Random Glucose Lactic Acid Calcium Phosphorus Magnesium Total Bilirubin AST ALT Alkaline Phosphatase Total Protein Albumin Globulin Albumin/Globulin Ratio - Imaging and Cardiology CT scan - abdomen Status: Image reviewed by me, Report reviewed by me Assessment & Plan - Assessment and Plan (Free Text) Assessment: 87 y.o. male with colonic ileus Plan: - GI consultation - Will follow
[2018-01-29] MEDS ORDERED: Iohexol 240 (50 ml) PO ONE (19:35)
[2018-01-29] MEDS ORDERED: methylPREDNISolone 30 MG in Sodium Chloride 0.9% 50 ML IV SCH (21:00)
[2018-01-30] MEDS ORDERED: Iohexol 300 100 ML IJ ONE (00:10)
[2018-01-30] MEDS ORDERED: Sodium Chloride 0.9% 1,000 ML IV SCH (03:45)
[2018-01-30] MEDS ORDERED: Sodium Chloride 0.9% 1,000 ML IV ONE (03:45)
[2018-01-30] MEDS: Sodium Chloride 0.9% 1,000 ML IV SCH ×2 (04:00→22:15)
[2018-01-30] MEDS: Albuterol 0.042% Inhal Sol (1.25 mg/3 mL) UD INH SCH ×5 (04:55→19:42)
[2018-01-30] MEDS: ceFAZolin 1 GM in Sodium Chloride 0.9% 100 ML IVPB SCH ×3 (05:40→21:58)
[2018-01-30 07:10] LABS: ABG ALLEN TEST YES; ARTERIAL BLOOD GAS HCO3 30.4 mmol/L (21-28); ARTERIAL BLOOD GAS HEMOGLOBIN 13.2 g/dL (11.7-17.4); ARTERIAL BLOOD GAS O2 CAPACITY 17.8 mL/dL (16-24); ARTERIAL BLOOD GAS O2 CONTENT 17.1 ML/dL (15-23); ARTERIAL BLOOD GAS O2 SAT 95.9 % (95-98); ARTERIAL BLOOD GAS PCO2 51 mm/Hg (35-45); ARTERIAL BLOOD GAS PH 7.42 (7.35-7.45); ARTERIAL BLOOD GAS PO2 66 mm/Hg (80-100); ARTERIAL BLOOD GAS TCO2 34.7 mmol/L (22-28)
--- NOTE | 2018-01-30 07:10 | CP.PCM.PN ---
Addendum entered and electronically signed by Nohelia Piper DO 01/30/18 08:42: additionally recommend GI consult Original Note: <Nohelia Piper - Last Filed: 01/30/18 08:11> Subjective - Date & Time of Evaluation Date of Evaluation: 01/30/18 Time of Evaluation: 07:15 - Subjective Subjective: Patient seen and examined this am at bedside. No acute events overnight per nursing. Patient is resting comfortably in bed and denies any abdominal pain. He states that he had one liquid BM overnight but no flatus. He otherwise denies f/c, n/v, IRENE, CP, SOB, dysuria, difficulty urinating. He is able to walk to the bathroom on his own and use the bedside commode/ urinal. Objective - Vital Signs/Intake and Output Vital Signs (last 24 hours): Temp Pulse Resp BP Pulse Ox 98.6 F 85 20 150/86 96 01/30/18 05:00 01/30/18 05:00 01/30/18 05:00 01/30/18 05:00 01/30/18 05:00 - Medications Medications: Current Medications Albuterol (Ventolin Hfa 90 Mcg/Actuation (8 G)) 1 puff INH RQ6 PRN PRN Reason: Shortness of Breath Albuterol Sulfate (Albuterol 0.042% Inhal Olivia (1.25mg/3ml) Ud) 1.25 mg INH RQ4 [facility] Last Admin: 01/30/18 04:55 Dose: 1.25 mg Allopurinol (Zyloprim) 300 mg PO DAILY [facility] Last Admin: 01/29/18 10:02 Dose: 300 mg Amlodipine Besylate (Norvasc) 10 mg PO DAILY [facility] Last Admin: 01/29/18 10:03 Dose: 10 mg Aspirin (Ecotrin) 81 mg PO DAILY [facility] Last Admin: 01/29/18 10:03 Dose: 81 mg Atorvastatin Calcium (Lipitor) 20 mg PO HS [facility] Last Admin: 01/29/18 21:56 Dose: 20 mg Clobetasol Propionate (Temovate Cream) 1 applic TOP BID [facility] Last Admin: 01/29/18 17:20 Dose: 1 applic Docusate Sodium (Colace) 100 mg PO BID [facility] Last Admin: 01/29/18 17:19 Dose: 100 mg Enoxaparin Sodium (Lovenox) 40 mg SC DAILY [facility]; Protocol Last Admin: 01/29/18 10:01 Dose: 40 mg Furosemide (Lasix) 40 mg IVP DAILY [facility] Last Admin: 01/29/18 10:03 Dose: 40 mg Cefazolin Sodium 1 gm/ Sodium (Chloride) 100 mls @ 100 mls/hr IVPB Q8@0600,1400,2200 [facility]; Protocol Last Admin: 01/30/18 05:40 Dose: 100 mls/hr Sodium Chloride (Sodium Chloride 0.9%) 1,000 mls @ 60 mls/hr IV .[id number] [facility] Stop: 01/31/18 03:42 Last Admin: 01/30/18 04:00 Dose: 60 mls/hr Methylprednisolone (Solu-Medrol) 30 mg IVP Q12 [facility] Last Admin: 01/29/18 21:56 Dose: 30 mg Metoprolol Tartrate (Lopressor) 25 mg PO Q12 [facility] Last Admin: 01/29/18 21:59 Dose: 25 mg Pantoprazole Sodium (Protonix Ec Tab) 40 mg PO DAILY [facility] Last Admin: 01/29/18 10:02 Dose: 40 mg Fluticasone/Salmeterol (Advair Diskus 250/50) 1 puff IH Q12 [facility] Last Admin: 01/29/18 22:13 Dose: 1 puff - Labs Labs: 01/28/18 04:50 01/29/18 04:25 PT 12.5 Seconds (9.8-13.1) 01/27/18 10:57 INR 1.1 01/27/18 10:57 APTT 35.0 Seconds (25.6-37.1) 01/27/18 10:57 - Constitutional Appears: Well, Non-toxic, No Acute Distress - Head Exam Head Exam: ATRAUMATIC, NORMOCEPHALIC - Eye Exam Eye Exam: EOMI - ENT Exam ENT Exam: Mucous Membranes Moist - Respiratory Exam Respiratory Exam: Decreased Breath Sounds (lower lobes bilaterally), NORMAL BREATHING PATTERN Additional comments: on 2L NC - Cardiovascular Exam Cardiovascular Exam: REGULAR RHYTHM - GI/Abdominal Exam GI & Abdominal Exam: Distended, Soft. absent: Guarding, Rigid, Tenderness - Extremities Exam Extremities Exam: Tenderness. absent: Calf Tenderness, Pedal Edema Additional comments: cellulitic areas to anterior legs are tender to palpation - Neurological Exam Neurological Exam: Alert, Awake, Oriented x3 - Psychiatric Exam Psychiatric exam: Normal Affect, Normal Mood - Skin Skin Exam: Dry, Erythema (anterior lower legs bilaterally consistent with cellulitis), Intact, Warm Assessment and Plan - Assessment and Plan (Free Text) Assessment: 87 yr old male with colonic distention and ileus Plan: NPO IVF monitor for n/v monitor for bowel function will d/w Dr. Lancaster all further recs per him Nohelia Piper, PGY 1 <Roly Lancaster - Last Filed: 01/30/18 16:30> Subjective - Date & Time of Evaluation Time of Evaluation: 15:20 - Subjective Subjective: Patient was seen and examined at the bedside. Agree with resident's note above. Objective - Vital Signs/Intake and Output Vital Signs (last 24 hours): Temp Pulse Resp BP Pulse Ox 99.1 F 77 20 131/65 91 L 01/30/18 15:47 01/30/18 15:47 01/30/18 15:47 01/30/18 15:47 01/30/18 15:47 - Medications Medications: Current Medications Albuterol (Ventolin Hfa 90 Mcg/Actuation (8 G)) 1 puff INH RQ6 PRN PRN Reason: Shortness of Breath Albuterol Sulfate (Albuterol 0.042% Inhal Olivia (1.25mg/3ml) Ud) 1.25 mg INH RQ4 [facility] Last Admin: 01/30/18 15:00 Dose: 1.25 mg Allopurinol (Zyloprim) 300 mg PO DAILY [facility] Last Admin: 01/30/18 09:02 Dose: 300 mg Amlodipine Besylate (Norvasc) 10 mg PO DAILY [facility] Last Admin: 01/30/18 09:03 Dose: 10 mg Aspirin (Ecotrin) 81 mg PO DAILY [facility] Last Admin: 01/30/18 09:04 Dose: 81 mg Atorvastatin Calcium (Lipitor) 20 mg PO HS [facility] Last Admin: 01/29/18 21:56 Dose: 20 mg Clobetasol Propionate (Temovate Cream) 1 applic TOP BID [facility] Last Admin: 01/30/18 09:05 Dose: 1 applic Docusate Sodium (Colace) 100 mg PO BID [facility] Last Admin: 01/30/18 09:04 Dose: Not Given Enoxaparin Sodium (Lovenox) 40 mg SC DAILY [facility]; Protocol Last Admin: 01/30/18 09:03 Dose: 40 mg Furosemide (Lasix) 40 mg IVP DAILY [facility] Last Admin: 01/30/18 09:04 Dose: 40 mg Cefazolin Sodium 1 gm/ Sodium (Chloride) 100 mls @ 100 mls/hr IVPB Q8@0600,1400,2200 [facility]; Protocol Last Admin: 01/30/18 13:18 Dose: 100 mls/hr Sodium Chloride (Sodium Chloride 0.9%) 1,000 mls @ 60 mls/hr IV .[id number] [facility] Stop: 01/31/18 03:42 Last Admin: 01/30/18 04:00 Dose: 60 mls/hr Methylprednisolone (Solu-Medrol) 30 mg IVP Q12 [facility] Last Admin: 01/30/18 09:02 Dose: 30 mg Metoprolol Tartrate (Lopressor) 25 mg PO Q12 [facility] Last Admin: 01/30/18 09:02 Dose: 25 mg Pantoprazole Sodium (Protonix Ec Tab) 40 mg PO DAILY [facility] Last Admin: 01/30/18 09:03 Dose: 40 mg Fluticasone/Salmeterol (Advair Diskus 250/50) 1 puff IH Q12 [facility] Last Admin: 01/30/18 09:04 Dose: 1 puff - Labs Labs: 01/30/18 06:45 01/30/18 06:45 PT 12.5 Seconds (9.8-13.1) 01/27/18 10:57 INR 1.1 01/27/18 10:57 APTT 35.0 Seconds (25.6-37.1) 01/27/18 10:57 - GI/Abdominal Exam Additional comments: soft, distended, very mildly tender, BS+, no rebound, no guarding Assessment and Plan - Assessment and Plan (Free Text) Plan: - Keep NPO - IV fluids hydration - GI consultation - Repeat labs in am - No general surgery intervention at present time - Will follow
[2018-01-30 07:13] LABS: BASO # 0.1 K/uL (0.0-0.2); BASO % 0.7 % (0.0-2.0); HEMOGLOBIN 12.6 g/dL (12.0-18.0); LYMPH # 0.2 K/uL (1.0-4.3); LYMPH % 1.4 % (20.0-40.0); MEAN CORPUSCULAR HEMOGLOBIN 32.9 pg (27.0-31.0); MEAN CORPUSCULAR HGB CONC 32.8 g/dL (33.0-37.0); MEAN PLATELET VOLUME 7.6 fl (7.2-11.7); MONO # 0.6 K/uL (0.0-0.8); MONO % 4.6 % (0.0-10.0); NEUT # 12.6 K/uL (1.8-7.0); NEUT % 93.3 % (50.0-75.0); PLATELET COUNT 150 K/uL (130-400); RBC 3.82 Mil/uL (4.40-5.90); RED CELL DISTRIBUTION WIDTH 15.3 % (11.5-14.5); WHITE BLOOD COUNT 13.6 K/uL (4.8-10.8)
[2018-01-30 07:33] LABS: ALB/GLOB RATIO 1.3 (1.0-2.1); ALBUMIN 3.6 g/dL (3.5-5.0); ALT/SGPT 28 U/L (21-72); AST/SGOT 33 U/L (17-59); BLOOD UREA NITROGEN 21 mg/dl (9-20); GFR NON-AFRICAN AMERICAN > 60
--- NOTE | 2018-01-30 08:45 | CP.PCM.PN ---
Subjective - Date & Time of Evaluation Date of Evaluation: 01/30/18 Time of Evaluation: 08:44 - Subjective Subjective: renal follow up note sob is improved vitals reviewed heent normal op moist nojvd s1s2 present bilateral air entry equal, crackles at bases abd soft, obese nd BS+ edema + ao times 3 impression: hypervolemic hyponatremia likely fluid overload and diastolic CHF exacerbation hyperkalemia due to impaired distal tubule sodium delivery as evident by urine Na <5 ileus HTN, COPD exacerbation s/p TAVR Obesity leg cellulitis plan: Cr stable continue to monitor bp ok continue current meds continue lasix NPO due to acute ileus but volume overloaded, can stop fluids glycemic control management of COPD as per primary team dose meds for GFR >60 Please call if any [phone] Objective - Vital Signs/Intake and Output Vital Signs (last 24 hours): Temp Pulse Resp BP Pulse Ox 98.7 F 96 H 18 148/71 94 L 01/30/18 08:19 01/30/18 08:19 01/30/18 08:19 01/30/18 08:19 01/30/18 08:19 - Medications Medications: Current Medications Albuterol (Ventolin Hfa 90 Mcg/Actuation (8 G)) 1 puff INH RQ6 PRN PRN Reason: Shortness of Breath Albuterol Sulfate (Albuterol 0.042% Inhal Olivia (1.25mg/3ml) Ud) 1.25 mg INH RQ4 [facility] Last Admin: 01/30/18 07:14 Dose: 1.25 mg Allopurinol (Zyloprim) 300 mg PO DAILY [facility] Last Admin: 01/29/18 10:02 Dose: 300 mg Amlodipine Besylate (Norvasc) 10 mg PO DAILY [facility] Last Admin: 01/29/18 10:03 Dose: 10 mg Aspirin (Ecotrin) 81 mg PO DAILY [facility] Last Admin: 01/29/18 10:03 Dose: 81 mg Atorvastatin Calcium (Lipitor) 20 mg PO HS [facility] Last Admin: 01/29/18 21:56 Dose: 20 mg Clobetasol Propionate (Temovate Cream) 1 applic TOP BID [facility] Last Admin: 01/29/18 17:20 Dose: 1 applic Docusate Sodium (Colace) 100 mg PO BID [facility] Last Admin: 01/29/18 17:19 Dose: 100 mg Enoxaparin Sodium (Lovenox) 40 mg SC DAILY [facility]; Protocol Last Admin: 01/29/18 10:01 Dose: 40 mg Furosemide (Lasix) 40 mg IVP DAILY [facility] Last Admin: 01/29/18 10:03 Dose: 40 mg Cefazolin Sodium 1 gm/ Sodium (Chloride) 100 mls @ 100 mls/hr IVPB Q8@0600,1400,2200 [facility]; Protocol Last Admin: 01/30/18 05:40 Dose: 100 mls/hr Sodium Chloride (Sodium Chloride 0.9%) 1,000 mls @ 60 mls/hr IV .[id number] [facility] Stop: 01/31/18 03:42 Last Admin: 01/30/18 04:00 Dose: 60 mls/hr Methylprednisolone (Solu-Medrol) 30 mg IVP Q12 [facility] Last Admin: 01/29/18 21:56 Dose: 30 mg Metoprolol Tartrate (Lopressor) 25 mg PO Q12 [facility] Last Admin: 01/29/18 21:59 Dose: 25 mg Pantoprazole Sodium (Protonix Ec Tab) 40 mg PO DAILY [facility] Last Admin: 01/29/18 10:02 Dose: 40 mg Fluticasone/Salmeterol (Advair Diskus 250/50) 1 puff IH Q12 [facility] Last Admin: 01/29/18 22:13 Dose: 1 puff - Labs Labs: 01/30/18 06:45 01/30/18 06:45 PT 12.5 Seconds (9.8-13.1) 01/27/18 10:57 INR 1.1 01/27/18 10:57 APTT 35.0 Seconds (25.6-37.1) 01/27/18 10:57
[2018-01-30] MEDS: MethylPREDNISolone 40 mg Vial IVP SCH ×2 (09:02→22:00)
[2018-01-30] MEDS: Pantoprazole 40 mg EC Tab PO SCH (09:03)
[2018-01-30] MEDS: Enoxaparin 40 mg Syringe SC SCH (09:03)
[2018-01-30] MEDS: Fluticasone-Salmeterol 250-50mcg Diskus IH SCH ×2 (09:04→21:58)
[2018-01-30 09:41] LABS: NEUTROPHIL 90 % (42-75); PLATELET ESTIMATE NORMAL (NORMAL); TOTAL CELLS COUNTED 100
[2018-01-30 09:42] LABS: ANISOCYTOSIS SLIGHT; LYMPHOCYTE 2 % (20-50); MONOCYTE 5 % (0-10); OVALOCYTES SLIGHT; REACTIVE LYMPHOCYTES 3 % (0-0)
[2018-01-30 09:43] LABS: TEARDROP CELLS SLIGHT
--- NOTE | 2018-01-30 10:18 | CT ---
Date of service: 01/30/2018 PROCEDURE: CT Abdomen and Pelvis with contrast HISTORY: abd distention and pain COMPARISON: 05/30/2017 TECHNIQUE: Contrast dose: Radiation dose: Total exam DLP = 822.95 mGy-cm. This CT exam was performed using one or more of the following dose reduction techniques: Automated exposure control, adjustment of the mA and/or kV according to patient size, and/or use of iterative reconstruction technique. FINDINGS: LOWER THORAX: Large bilateral pleural effusions with compressive atelectasis at the lung bases. LIVER: Unremarkable. No gross lesion or ductal dilatation. GALLBLADDER AND BILE DUCTS: Unremarkable. PANCREAS: Unremarkable. No gross lesion or ductal dilatation. SPLEEN: Unremarkable. ADRENALS: Unremarkable. No mass. KIDNEYS AND URETERS: Unremarkable. No hydronephrosis. No solid mass. VASCULATURE: Unremarkable. No aortic aneurysm. No aortic atherosclerotic calcification or mural plaque present. BOWEL: Marked colonic distention APPENDIX: Normal appendix. PERITONEUM: Unremarkable. No free fluid. No free air. LYMPH NODES: Unremarkable. No enlarged lymph nodes. BLADDER: Unremarkable. REPRODUCTIVE: Prostate enlargement. BONES: No acute fracture. OTHER FINDINGS: None. IMPRESSION: Colonic ileus. Large bilateral pleural effusions with compressive atelectasis of the lung bases.
--- NOTE | 2018-01-30 11:37 | CP.PCM.PN ---
Subjective - Date & Time of Evaluation Date of Evaluation: 01/30/18 Time of Evaluation: 11:35 - Subjective Subjective: Lying in bed comfortably. NPO at the present time. Had a watery stool last night. CT A/P reported as 'colonic ileus'. Also noted on the CT is presence of bilateral pleural effusions with compressive atelectasis in the lung bases. He offers no complaint of cough or shortness of breath. No chest discomfort. Abdomen remains distended and tympanitic. Bowel sounds are present. No dullness on percussion of the anterior chest wall. Breath sounds are diminished bilaterally w/o audible wheezing. No bronchial breath sounds. Few sonorous rhonchi in dependant regions of both lungs. Heart sounds are very distant, rhythm remains regular. Dependant edema of legs is decreased, erythema also sl less pronounced. Continue present aerosol regimen. Reduce parenteral corticosteroid dose to 30MG OD. No indication for thoracentesis at this time. Objective - Vital Signs/Intake and Output Vital Signs (last 24 hours): Temp Pulse Resp BP Pulse Ox 98.7 F 87 18 109/65 94 L 01/30/18 08:19 01/30/18 09:03 01/30/18 08:19 01/30/18 09:04 01/30/18 08:19 - Medications Medications: Current Medications Albuterol (Ventolin Hfa 90 Mcg/Actuation (8 G)) 1 puff INH RQ6 PRN PRN Reason: Shortness of Breath Albuterol Sulfate (Albuterol 0.042% Inhal Olivia (1.25mg/3ml) Ud) 1.25 mg INH RQ4 [facility] Last Admin: 01/30/18 11:12 Dose: 1.25 mg Allopurinol (Zyloprim) 300 mg PO DAILY [facility] Last Admin: 01/30/18 09:02 Dose: 300 mg Amlodipine Besylate (Norvasc) 10 mg PO DAILY [facility] Last Admin: 01/30/18 09:03 Dose: 10 mg Aspirin (Ecotrin) 81 mg PO DAILY [facility] Last Admin: 01/30/18 09:04 Dose: 81 mg Atorvastatin Calcium (Lipitor) 20 mg PO HS [facility] Last Admin: 01/29/18 21:56 Dose: 20 mg Clobetasol Propionate (Temovate Cream) 1 applic TOP BID [facility] Last Admin: 11/03/18 09:05 Dose: 1 applic Docusate Sodium (Colace) 100 mg PO BID [facility] Last Admin: 01/30/18 09:04 Dose: Not Given Enoxaparin Sodium (Lovenox) 40 mg SC DAILY [facility]; Protocol Last Admin: 01/30/18 09:03 Dose: 40 mg Furosemide (Lasix) 40 mg IVP DAILY [facility] Last Admin: 01/30/18 09:04 Dose: 40 mg Cefazolin Sodium 1 gm/ Sodium (Chloride) 100 mls @ 100 mls/hr IVPB Q8@06 00,1400,2200 [facility]; Protocol Last Admin: 01/30/18 05:40 Dose: 100 mls/hr Sodium Chloride (Sodium Chloride 0.9%) 1,000 mls @ 60 mls/hr IV .[id number] [facility] Stop: 01/31/18 03:42 Last Admin: 01/30/18 04:00 Dose: 60 mls/hr Methylprednisolone (Solu-Medrol) 30 mg IVP Q12 [facility] Last Admin: 01/30/18 09:02 Dose: 30 mg Metoprolol Tartrate (Lopressor) 25 mg PO Q12 [facility] Last Admin: 01/30/18 09:02 Dose: 25 mg Pantoprazole Sodium (Protonix Ec Tab) 40 mg PO DAILY [facility] Last Admin: 01/30/18 09:03 Dose: 40 mg Fluticasone/Salmeterol (Advair Diskus 250/50) 1 puff IH Q12 [facility] Last Admin: 01/30/18 09:04 Dose: 1 puff - Labs Labs: 01/30/18 06:45 01/30/18 06:45 PT 12.5 Seconds (9.8-13.1) 01/27/18 10:57 INR 1.1 01/27/18 10:57 APTT 35.0 Seconds (25.6-37.1) 01/27/18 10:57 Assessment and Plan (1) COPD with exacerbation Status: Acute (2) Hyponatremia Status: Resolved (3) Hypoxemia Assessment & Plan: Using supplemental nasal oxygen. Status: Resolved (4) Leg edema Status: Chronic (5) Pleural effusion due to congestive heart failure Assessment & Plan: Bilaterally, likely secondary to CHF. Status: Acute (6) Atelectasis, bilateral Assessment & Plan: Passive collapse of lung bases bilaterally. Status: Acute
--- NOTE | 2018-01-30 14:12 | CP.PCM.CON ---
History of Present Illness - History of Present Illness History of Present Illness: Podiatry Consult Note for Dr. Kirk 87M with PMH CHF, HTN, HLD, Bronchitis, COPD (noncompliant with home o2), gout who was originally admitted 01/27 for persistent cough and SOB seen at bedside for b/l LE redness. Patient denies any pain to either leg. He does not recall when the redness first appearred and states that it has remained relatively localized to his b/l medial anterior shins. He denies any further pedal complaints at this time. He is AAO x 3 and NAD, resting comfortably in bed. Review of Systems - Review of Systems All systems: reviewed and no additional remarkable complaints except Review of Systems: as per HPI Past Patient History - Past Medical History & Family History Past Medical History?: Yes - Past Social History Smoking Status: Former Smoker (stopped about three years ago) Chewing Tobacco Use: No Cigar Use: No Alcohol: > 2 Drinks/Day Drugs: Denies Home Situation {Lives}: With Family - CARDIAC Hx Atrial Fibrillation: Yes (current EKG) Hx Congestive Heart Failure: Yes Hx Hypercholesterolemia: Yes Hx Hypertension: Yes Hx Peripheral Edema: Yes Other/Comment: AO valve replacement - PULMONARY Hx Bronchitis: Yes Hx Chronic Obstructive Pulmonary Disease (COPD): Yes - NEUROLOGICAL Hx Neurological Disorder: No - HEENT Hx HEENT Problems: No - RENAL Hx Chronic Kidney Disease: No - ENDOCRINE/METABOLIC Hx Endocrine Disorders: No - HEMATOLOGICAL/ONCOLOGICAL Hx Blood Disorders: No Hx Human Immunodeficiency Virus (HIV): No - INTEGUMENTARY Other/Comment: skin lesion recently removed from left infra-ocular area - MUSCULOSKELETAL/RHEUMATOLOGICAL Hx Falls: No Hx Gout: Yes - GASTROINTESTINAL Hx Gastrointestinal Disorders: No - GENITOURINARY/GYNECOLOGICAL Hx Genitourinary Disorders: No - PSYCHIATRIC Hx Psychophysiologic Disorder: No Hx Substance Use: No - SURGICAL HISTORY Hx Valve Replacement: Yes (TAVR) Other/Comment: Laminectomy L3-L5 05/15/2017 - ANESTHESIA Hx Anesthesia: Yes Hx Anesthesia Reactions: No Hx Malignant Hyperthermia: No Has any member of the family had a problem w/ anesthesia?: No Meds Allergies/Adverse Reactions: Allergies Allergy/AdvReac Type Severity Reaction Status Date / Time No Known Allergies Allergy Verified 01/27/18 10:47 - Medications Medications: Current Medications Albuterol (Ventolin Hfa 90 Mcg/Actuation (8 G)) 1 puff INH RQ6 PRN PRN Reason: Shortness of Breath Albuterol Sulfate (Albuterol 0.042% Inhal Olivia (1.25mg/3ml) Ud) 1.25 mg INH RQ4 [facility] Last Admin: 01/30/18 11:12 Dose: 1.25 mg Allopurinol (Zyloprim) 300 mg PO DAILY [facility] Last Admin: 01/30/18 09:02 Dose: 300 mg Amlodipine Besylate (Norvasc) 10 mg PO DAILY [facility] Last Admin: 01/30/18 09:03 Dose: 10 mg Aspirin (Ecotrin) 81 mg PO DAILY [facility] Last Admin: 01/30/18 09:04 Dose: 81 mg Atorvastatin Calcium (Lipitor) 20 mg PO HS [facility] Last Admin: 01/29/18 21:56 Dose: 20 mg Clobetasol Propionate (Temovate Cream) 1 applic TOP BID [facility] Last Admin: 01/30/18 09:05 Dose: 1 applic Docusate Sodium (Colace) 100 mg PO BID [facility] Last Admin: 01/30/18 09:04 Dose: Not Given Enoxaparin Sodium (Lovenox) 40 mg SC DAILY [facility]; Protocol Last Admin: 01/30/18 09:03 Dose: 40 mg Furosemide (Lasix) 40 mg IVP DAILY [facility] Last Admin: 01/30/18 09:04 Dose: 40 mg Cefazolin Sodium 1 gm/ Sodium (Chloride) 100 mls @ 100 mls/hr IVPB Q8 @0600,1400,2200 [facility]; Protocol Last Admin: 01/30/18 13:18 Dose: 100 mls/hr Sodium Chloride (Sodium Chloride 0.9%) 1,000 mls @ 60 mls/hr IV .[id number] [facility] Stop: 01/31/18 03:42 Last Admin: 01/30/18 04:00 Dose: 60 mls/hr Methylprednisolone (Solu-Medrol) 30 mg IVP Q12 [facility] Last Admin: 01/30/18 09:02 Dose: 30 mg Metoprolol Tartrate (Lopressor) 25 mg PO Q12 [facility] Last Admin: 01/30/18 09:02 Dose: 25 mg Pantoprazole Sodium (Protonix Ec Tab) 40 mg PO DAILY [facility] Last Admin: 01/30/18 09:03 Dose: 40 mg Fluticasone/Salmeterol (Advair Diskus 250/50) 1 puff IH Q12 [facility] Last Admin: 01/30/18 09:04 Dose: 1 puff Physical Exam - Constitutional Appears: Well, Non-toxic, No Acute Distress - Extremities Exam Additional comments: B/l LE focused exam: Vasc: DP/PT pulses palpable 1/4 b/l secondary to 1+ pitting b/l. CFT < 3 seconds to all digits b/l. Skin temperature gradient warm to warm from proximal to distal. No increased warmth noted at sites of erythema. Neuro: Epicritic and protective sensation grossly intact b/l Derm: B/l dark erythematous changes to skin noted to anteromedial shins. Color change appears to be more attributable to probable venous congestion that to cellulitic changes. No open lesions, wounds, maceration, xerosis noted to b/l LE MSK: No POP to erythematous site. ROM WNL at all major joints. MMT 4/5 in all major muscle groups - Neurological Exam Neurological exam: Alert, Oriented x3 - Psychiatric Exam Psychiatric exam: Normal Affect, Normal Mood Results - Vital Signs Recent Vital Signs: Last Vital Signs Temp 97.8 F 01/30/18 12:26 Pulse 67 01/30/18 12:26 Resp 18 01/30/18 12:26 BP 115/74 01/30/18 12:26 Pulse Ox 90 L 01/30/18 12:26 - Labs Result Diagrams: 01/30/18 06:45 01/30/18 06:45 Labs: Laboratory Results - last 24 hr 01/30/18 01/30/18 01/30/18 06:45 06:45 06:45 WBC 13.6 H D RBC 3.82 L Hgb 12.6 Hct 38.2 MCV 100.0 H MCH 32.9 H MCHC 32.8 L RDW 15.3 H Plt Count 150 MPV 7.6 Neut % (Auto) 93.3 H Lymph % (Auto) 1.4 L [place] % (Auto) 4.6 Eos % (Auto) 0.0 Baso % (Auto) 0.7 Neut # (Auto) 12.6 H Lymph # (Auto) 0.2 L [place] # (Auto) 0.6 Eos # (Auto) 0.0 Baso # (Auto) 0.1 Neutrophils % (Manual) 90 H Lymphocytes % (Manual) 2 L Reactive Lymphs % 3 H Monocytes % (Manual) 5 Platelet Estimate Normal Anisocytosis (manual) Slight Tear Drop Cells Slight Ovalocytes Slight pCO2 pO2 HCO3 ABG pH ABG Total CO2 ABG O2 Saturation ABG O2 Content ABG Base Excess ABG Hemoglobin ABG Carboxyhemoglobin POC ABG HHb (Measured) ABG Methemoglobin ABG O2 Capacity Nam Test A-a O2 Difference Hgb O2 Saturation FiO2 Sodium 137 Potassium 3.7 Chloride 97 L Carbon Dioxide 31 H Anion Gap 13 BUN 21 H Creatinine 0.7 L Est GFR ( Amer) > 60 Est GFR (Non-Af Amer) > 60 Random Glucose 185 H Lactic Acid 1.3 Calcium 9.0 Phosphorus 4.4 Magnesium 2.0 Total Bilirubin 0.5 AST 33 ALT 28 Alkaline Phosphatase 55 Total Protein 6.5 Albumin 3.6 Globulin 2.8 Albumin/Globulin Ratio 1.3 01/30/18 07:05 WBC RBC Hgb Hct MCV MCH MCHC RDW Plt Count MPV Neut % (Auto) Lymph % (Auto) [place] % (Auto) Eos % (Auto) Baso % (Auto) Neut # (Auto) Lymph # (Auto) [place] # (Auto) Eos # (Auto) Baso # (Auto) Neutrophils % (Manual) Lymphocytes % (Manual) Reactive Lymphs % Monocytes % (Manual) Platelet Estimate Anisocytosis (manual) Tear Drop Cells Ovalocytes pCO2 51 H pO2 66 L HCO3 30.4 H ABG pH 7.42 ABG Total CO2 34.7 H ABG O2 Saturation 95.9 ABG O2 Content 17.1 ABG Base Excess 7.2 H ABG Hemoglobin 13.2 ABG Carboxyhemoglobin 2.2 H POC ABG HHb (Measured) 3.9 ABG Methemoglobin 1.6 ABG O2 Capacity 17.8 Nam Test Yes A-a O2 Difference 70.0 Hgb O2 Saturation 92.3 L FiO2 28.0 Sodium Potassium Chloride Carbon Dioxide Anion Gap BUN Creatinine Est GFR ( Amer) Est GFR (Non-Af Amer) Random Glucose Lactic Acid Calcium Phosphorus Magnesium Total Bilirubin AST ALT Alkaline Phosphatase Total Protein Albumin Globulin Albumin/Globulin Ratio Assessment & Plan - Assessment and Plan (Free Text) Assessment: 87M seen at bedside for b/l erythematous LE changes Plan: Patient seen and evaluated at bedside Plan discussed with Dr. Kirk WBC 13.6 Continue abx per ID No plan for surgical intervention at this time No dressings applied to LE at this time Podiatry will continue to follow while patient in house - Date & Time Date: 01/30/18 Time: 14:24
--- NOTE | 2018-01-30 20:00 | CP.PCM.PN ---
Subjective - Date & Time of Evaluation Date of Evaluation: 01/30/18 Time of Evaluation: 22:22 - Subjective Subjective: Above noted Objective - Vital Signs/Intake and Output Vital Signs (last 24 hours): Temp Pulse Resp BP Pulse Ox 99.1 F 77 20 131/65 91 L 01/30/18 15:47 01/30/18 15:47 01/30/18 15:47 01/30/18 15:47 01/30/18 15:47 Intake and Output: 01/30/18 01/31/18 18:59 05:59 Intake Total 1250 Balance 1250 - Medications Medications: Current Medications Albuterol (Ventolin Hfa 90 Mcg/Actuation (8 G)) 1 puff INH RQ6 PRN PRN Reason: Shortness of Breath Albuterol Sulfate (Albuterol 0.042% Inhal Olivia (1.25mg/3ml) Ud) 1.25 mg INH RQ4 [facility] Last Admin: 01/30/18 19:42 Dose: 1.25 mg Allopurinol (Zyloprim) 300 mg PO DAILY [facility] Last Admin: 01/30/18 09:02 Dose: 300 mg Amlodipine Besylate (Norvasc) 10 mg PO DAILY [facility] Last Admin: 01/30/18 09:03 Dose: 10 mg Aspirin (Ecotrin) 81 mg PO DAILY [facility] Last Admin: 01/30/18 09:04 Dose: 81 mg Atorvastatin Calcium (Lipitor) 20 mg PO HS [facility] Last Admin: 01/29/18 21:56 Dose: 20 mg Clobetasol Propionate (Temovate Cream) 1 applic TOP BID [facility] Last Admin: 01/30/18 16:49 Dose: 1 applic Docusate Sodium (Colace) 100 mg PO BID [facility] Last Admin: 01/30/18 09:04 Dose: Not Given Enoxaparin Sodium (Lovenox) 40 mg SC DAILY [facility]; Protocol Last Admin: 01/30/18 09:03 Dose: 40 mg Furosemide (Lasix) 40 mg IVP DAILY [facility] Last Admin: 01/30/18 09:04 Dose: 40 mg Cefazolin Sodium 1 gm/ Sodium (Chloride) 100 mls @ 100 mls/hr IVPB Q8@060 0,1400,2200 [facility]; Protocol Last Admin: 01/30/18 13:18 Dose: 100 mls/hr Sodium Chloride (Sodium Chloride 0.9%) 1,000 mls @ 60 mls/hr IV .[id number] [facility] Stop: 01/31/18 03:42 Last Admin: 01/30/18 04:00 Dose: 60 mls/hr Methylprednisolone (Solu-Medrol) 30 mg IVP Q12 [facility] Last Admin: 01/30/18 09:02 Dose: 30 mg Metoprolol Tartrate (Lopressor) 25 mg PO Q12 [facility] Last Admin: 01/30/18 09:02 Dose: 25 mg Pantoprazole Sodium (Protonix Ec Tab) 40 mg PO DAILY [facility] Last Admin: 01/30/18 09:03 Dose: 40 mg Fluticasone/Salmeterol (Advair Diskus 250/50) 1 puff IH Q12 [facility] Last Admin: 01/30/18 09:04 Dose: 1 puff - Labs Labs: 01/30/18 06:45 01/30/18 06:45 PT 12.5 Seconds (9.8-13.1) 01/27/18 10:57 INR 1.1 01/27/18 10:57 APTT 35.0 Seconds (25.6-37.1) 01/27/18 10:57 - Respiratory Exam Respiratory Exam: NORMAL BREATHING PATTERN Assessment and Plan - Assessment and Plan (Free Text) Assessment: Distended abdomen CT scan colonic illeus Surgery GI HX Low back surgery (Severe Spinal Stenosis) Post operative illeus SOB COPD Smoker Pleural effusion steroids O2 CHF S/P TAVR Diuretics Pulmonary Cardiology Bilat Lower ext edema/ cellulitis ID ABX podiatry Hyponatremia 2 to fluid overload Hyperkalemia etiol?? Hold ARB Kaexylate Urine lytes Nephrology consult HTN Prediabetes
[2018-01-30] MEDS ORDERED: Chlorhexidine Gluconate 1 APPL/PKT TP ONE (23:01)
--- NOTE | 2018-01-30 23:20 | CP.PCM.CON ---
History of Present Illness - History of Present Illness History of Present Illness: 87 yo male with h/o CHF, Htn and COPD admitted on 01/27 for cough and SOB. Started having abdominal pain yesterday after receiving Kayexelate yesterday for hyperkalemia. Has been having loose watery stools today. Colonoscopy May 2017 negative Review of Systems - Constitutional Constitutional: absent: Chills - EENT Eyes: absent: Blurred Vision Ears: absent: Ear Discharge Nose/Mouth/Throat: absent: Epistaxis - Cardiovascular Cardiovascular: absent: Chest Pain - Respiratory Respiratory: absent: Dyspnea - Gastrointestinal Gastrointestinal: As Per HPI - Genitourinary Genitourinary: absent: Change in Urinary Stream Past Patient History - Past Medical History & Family History Past Medical History?: Yes - Past Social History Smoking Status: Former Smoker (stopped about three years ago) Chewing Tobacco Use: No Cigar Use: No Alcohol: > 2 Drinks/Day Drugs: Denies Home Situation {Lives}: With Family - CARDIAC Hx Atrial Fibrillation: Yes (current EKG) Hx Congestive Heart Failure: Yes Hx Hypercholesterolemia: Yes Hx Hypertension: Yes Hx Peripheral Edema: Yes Other/Comment: AO valve replacement - PULMONARY Hx Bronchitis: Yes Hx Chronic Obstructive Pulmonary Disease (COPD): Yes - NEUROLOGICAL Hx Neurological Disorder: No - HEENT Hx HEENT Problems: No - RENAL Hx Chronic Kidney Disease: No - ENDOCRINE/METABOLIC Hx Endocrine Disorders: No - HEMATOLOGICAL/ONCOLOGICAL Hx Blood Disorders: No Hx Human Immunodeficiency Virus (HIV): No - INTEGUMENTARY Other/Comment: skin lesion recently removed from left infra-ocular area - MUSCULOSKELETAL/RHEUMATOLOGICAL Hx Falls: No Hx Gout: Yes - GASTROINTESTINAL Hx Gastrointestinal Disorders: No - GENITOURINARY/GYNECOLOGICAL Hx Genitourinary Disorders: No - PSYCHIATRIC Hx Psychophysiologic Disorder: No Hx Substance Use: No - SURGICAL HISTORY Hx Valve Replacement: Yes (TAVR) Other/Comment: Laminectomy L3-L5 05/15/2017 - ANESTHESIA Hx Anesthesia: Yes Hx Anesthesia Reactions: No Hx Malignant Hyperthermia: No Has any member of the family had a problem w/ anesthesia?: No Meds Allergies/Adverse Reactions: Allergies Allergy/AdvReac Type Severity Reaction Status Date / Time No Known Allergies Allergy Verified 01/27/18 10:47 - Medications Medications: Current Medications Albuterol (Ventolin Hfa 90 Mcg/Actuation (8 G)) 1 puff INH RQ6 PRN PRN Reason: Shortness of Breath Albuterol Sulfate (Albuterol 0.042% Inhal Olivia (1.25mg/3ml) Ud) 1.25 mg INH RQ4 [facility] Last Admin: 01/30/18 19:42 Dose: 1.25 mg Allopurinol (Zyloprim) 300 mg PO DAILY [facility] Last Admin: 01/30/18 09:02 Dose: 300 mg Amlodipine Besylate (Norvasc) 10 mg PO DAILY [facility] Last Admin: 01/30/18 09:03 Dose: 10 mg Aspirin (Ecotrin) 81 mg PO DAILY [facility] Last Admin: 01/30/18 09:04 Dose: 81 mg Atorvastatin Calcium (Lipitor) 20 mg PO HS [facility] Last Admin: 01/30/18 21:59 Dose: 20 mg Clobetasol Propionate (Temovate Cream) 1 applic TOP BID [facility] Last Admin: 01/30/18 16:49 Dose: 1 applic Docusate Sodium (Colace) 100 mg PO BID [facility] Last Admin: 01/30/18 09:04 Dose: Not Given Enoxaparin Sodium (Lovenox) 40 mg SC DAILY [facility]; Protocol Last Admin: 01/30/18 09:03 Dose: 40 mg Furosemide (Lasix) 40 mg IVP DAILY [facility] Last Admin: 01/30/18 09:04 Dose: 40 mg Cefazolin Sodium 1 gm/ Sodium (Chloride) 100 mls @ 100 mls/hr IVPB Q8@0600,1400,2200 [facility]; Protocol Last Admin: 01/30/18 21:58 Dose: 100 mls/hr Sodium Chloride (Sodium Chloride 0.9%) 1,000 mls @ 60 mls/hr IV .[id number] [facility] Stop: 01/31/18 03:42 Last Admin: 01/30/18 22:15 Dose: 60 mls/hr Methylprednisolone (Solu-Medrol) 30 mg IVP Q12 [facility] Last Admin: 01/30/18 22:00 Dose: 30 mg Metoprolol Tartrate (Lopressor) 25 mg PO Q12 [facility] Last Admin: 01/30/18 21:59 Dose: 25 mg Pantoprazole Sodium (Protonix Ec Tab) 40 mg PO DAILY [facility] Last Admin: 01/30/18 09:03 Dose: 40 mg Fluticasone/Salmeterol (Advair Diskus 250/50) 1 puff IH Q12 [facility] Last Admin: 01/30/18 21:58 Dose: 1 puff Physical Exam - Constitutional Appears: No Acute Distress - Head Exam Head Exam: ATRAUMATIC - Eye Exam Eye Exam: Normal appearance Pupil Exam: PERRL - ENT Exam ENT Exam: Mucous Membranes Moist - Neck Exam Neck exam: Positive for: Normal Inspection - Respiratory Exam Respiratory Exam: NORMAL BREATHING PATTERN - Cardiovascular Exam Cardiovascular Exam: REGULAR RHYTHM, +S1, +S2 - GI/Abdominal Exam GI & Abdominal Exam: Normal Bowel Sounds, Soft. absent: Tenderness Additional comments: markedly distended and tympanitic. Results - Vital Signs Recent Vital Signs: Last Vital Signs Temp 98.9 F 01/30/18 20:31 Pulse 62 01/30/18 21:59 Resp 20 01/30/18 20:31 BP 138/69 01/30/18 21:59 Pulse Ox 94 L 01/30/18 20:31 - Labs Result Diagrams: 01/30/18 06:45 01/30/18 06:45 Labs: Laboratory Results - last 24 hr 01/30/18 01/30/18 01/30/18 06:45 06:45 06:45 WBC 13.6 H D RBC 3.82 L Hgb 12.6 Hct 38.2 MCV 100.0 H MCH 32.9 H MCHC 32.8 L RDW 15.3 H Plt Count 150 MPV 7.6 Neut % (Auto) 93.3 H Lymph % (Auto) 1.4 L [place] % (Auto) 4.6 Eos % (Auto) 0.0 Baso % (Auto) 0.7 Neut # (Auto) 12.6 H Lymph # (Auto) 0.2 L [place] # (Auto) 0.6 Eos # (Auto) 0.0 Baso # (Auto) 0.1 Neutrophils % (Manual) 90 H Lymphocytes % (Manual) 2 L Reactive Lymphs % 3 H Monocytes % (Manual) 5 Platelet Estimate Normal Anisocytosis (manual) Slight Tear Drop Cells Slight Ovalocytes Slight pCO2 pO2 HCO3 ABG pH ABG Total CO2 ABG O2 Saturation ABG O2 Content ABG Base Excess ABG Hemoglobin ABG Carboxyhemoglobin POC ABG HHb (Measured) ABG Methemoglobin ABG O2 Capacity Nam Test A-a O2 Difference Hgb O2 Saturation FiO2 Sodium 137 Potassium 3.7 Chloride 97 L Carbon Dioxide 31 H Anion Gap 13 BUN 21 H Creatinine 0.7 L Est GFR ( Amer) > 60 Est GFR (Non-Af Amer) > 60 Random Glucose 185 H Lactic Acid 1.3 Calcium 9.0 Phosphorus 4.4 Magnesium 2.0 Total Bilirubin 0.5 AST 33 ALT 28 Alkaline Phosphatase 55 Total Protein 6.5 Albumin 3.6 Globulin 2.8 Albumin/Globulin Ratio 1.3 01/30/18 07:05 WBC RBC Hgb Hct MCV MCH MCHC RDW Plt Count MPV Neut % (Auto) Lymph % (Auto) [place] % (Auto) Eos % (Auto) Baso % (Auto) Neut # (Auto) Lymph # (Auto) [place] # (Auto) Eos # (Auto) Baso # (Auto) Neutrophils % (Manual) Lymphocytes % (Manual) Reactive Lymphs % Monocytes % (Manual) Platelet Estimate Anisocytosis (manual) Tear Drop Cells Ovalocytes pCO2 51 H pO2 66 L HCO3 30.4 H ABG pH 7.42 ABG Total CO2 34.7 H ABG O2 Saturation 95.9 ABG O2 Content 17.1 ABG Base Excess 7.2 H ABG Hemoglobin 13.2 ABG Carboxyhemoglobin 2.2 H POC ABG HHb (Measured) 3.9 ABG Methemoglobin 1.6 ABG O2 Capacity 17.8 Nam Test Yes A-a O2 Difference 70.0 Hgb O2 Saturation 92.3 L FiO2 28.0 Sodium Potassium Chloride Carbon Dioxide Anion Gap BUN Creatinine Est GFR ( Amer) Est GFR (Non-Af Amer) Random Glucose Lactic Acid Calcium Phosphorus Magnesium Total Bilirubin AST ALT Alkaline Phosphatase Total Protein Albumin Globulin Albumin/Globulin Ratio - Imaging and Cardiology CT scan - abdomen Status: Image reviewed by me, Report reviewed by me Assessment & Plan (1) Abdominal distention Assessment and Plan: Marked abdominal distention with active bowel sounds and liquid bowel movements. Will place rectal tube for colon decompression and obtain KUB tomorrow. May have ice chips and sips of water. Status: Acute
[2018-01-31] MEDS: Albuterol 0.042% Inhal Sol (1.25 mg/3 mL) UD INH SCH ×7 (00:10→23:50)
[2018-01-31] MEDS: ceFAZolin 1 GM in Sodium Chloride 0.9% 100 ML IVPB SCH ×3 (05:13→21:15)
[2018-01-31 08:12] LABS: BASO % 0.2 % (0.0-2.0); HEMOGLOBIN 12.1 g/dL (12.0-18.0); LYMPH # 0.3 K/uL (1.0-4.3); LYMPH % 2.4 % (20.0-40.0); MEAN CORPUSCULAR HEMOGLOBIN 32.3 pg (27.0-31.0); MEAN CORPUSCULAR HGB CONC 31.4 g/dL (33.0-37.0); MEAN PLATELET VOLUME 7.9 fl (7.2-11.7); MONO % 7.8 % (0.0-10.0); NEUT # 11.2 K/uL (1.8-7.0); NEUT % 89.6 % (50.0-75.0); NRBC % 0.2 % (0.0-0.0); RBC 3.76 Mil/uL (4.40-5.90); RED CELL DISTRIBUTION WIDTH 15.5 % (11.5-14.5); WHITE BLOOD COUNT 12.5 K/uL (4.8-10.8)
[2018-01-31 08:20] LABS: MEAN CELL VOLUME 102.9 fl (80.0-94.0)
[2018-01-31 08:33] LABS: BLOOD UREA NITROGEN 21 mg/dl (9-20); CALCIUM 8.7 mg/dL (8.4-10.2); GFR NON-AFRICAN AMERICAN > 60
--- NOTE | 2018-01-31 08:35 | CP.PCM.PN ---
<Michael Germain - Last Filed: 01/31/18 08:48> Subjective - Date & Time of Evaluation Date of Evaluation: 01/31/18 Time of Evaluation: 06:30 - Subjective Subjective: Surgery progress note- Dr. Lancaster patient seen and examined at bedside. Patient admits to having BM. Rectal tube placed overnight in attempt to decompress large bowel. minimal stool output. Abd soft, continues to be moderately distended. Currently tolerating sips and chips. Denies nausea/vomiting, fevers, chills, chest pain, shortness of breath. Objective - Vital Signs/Intake and Output Vital Signs (last 24 hours): Temp Pulse Resp BP Pulse Ox 98.2 F 83 18 127/52 L 92 L 01/31/18 05:00 01/31/18 05:00 01/31/18 05:00 01/31/18 05:00 01/31/18 05:00 Intake and Output: 01/31/18 01/31/18 06:59 18:59 Intake Total Output Total Balance - Medications Medications: Current Medications Albuterol (Ventolin Hfa 90 Mcg/Actuation (8 G)) 1 puff INH RQ6 PRN PRN Reason: Shortness of Breath Albuterol Sulfate (Albuterol 0.042% Inhal Olivia (1.25mg/3ml) Ud) 1.25 mg INH RQ4 [facility] Last Admin: 01/31/18 05:20 Dose: 1.25 mg Allopurinol (Zyloprim) 300 mg PO DAILY [facility] Last Admin: 01/30/18 09:02 Dose: 300 mg Amlodipine Besylate (Norvasc) 10 mg PO DAILY [facility] Last Admin: 01/30/18 09:03 Dose: 10 mg Aspirin (Ecotrin) 81 mg PO DAILY [facility] Last Admin: 01/30/18 09:04 Dose: 81 mg Atorvastatin Calcium (Lipitor) 20 mg PO HS [facility] Last Admin: 01/30/18 21:59 Dose: 20 mg Clobetasol Propionate (Temovate Cream) 1 applic TOP BID [facility] Last Admin: 01/30/18 16:49 Dose: 1 applic Docusate Sodium (Colace) 100 mg PO BID [facility] Last Admin: 01/30/18 09:04 Dose: Not Given Enoxaparin Sodium (Lovenox) 40 mg SC DAILY [facility]; Protocol Last Admin: 01/30/18 09:03 Dose: 40 mg Furosemide (Lasix) 40 mg IVP DAILY [facility] Last Admin: 01/30/18 09:04 Dose: 40 mg Cefazolin Sodium 1 gm/ Sodium (Chloride) 100 mls @ 100 mls/hr IVPB Q8@0600,1400,2200 [facility]; Protocol Last Admin: 01/31/18 05:13 Dose: 100 mls/hr Methylprednisolone (Solu-Medrol) 30 mg IVP Q12 [facility] Last Admin: 01/30/18 22:00 Dose: 30 mg Metoprolol Tartrate (Lopressor) 25 mg PO Q12 [facility] Last Admin: 01/30/18 21:59 Dose: 25 mg Pantoprazole Sodium (Protonix Ec Tab) 40 mg PO DAILY [facility] Last Admin: 01/30/18 09:03 Dose: 40 mg Fluticasone/Salmeterol (Advair Diskus 250/50) 1 puff IH Q12 [facility] Last Admin: 01/30/18 21:58 Dose: 1 puff - Labs Labs: 01/31/18 06:00 01/30/18 06:45 PT 12.5 Seconds (9.8-13.1) 01/27/18 10:57 INR 1.1 01/27/18 10:57 APTT 35.0 Seconds (25.6-37.1) 01/27/18 10:57 - Constitutional Appears: Non-toxic, No Acute Distress - Head Exam Head Exam: ATRAUMATIC - Eye Exam Eye Exam: EOMI. absent: Scleral icterus - ENT Exam ENT Exam: Mucous Membranes Moist - Respiratory Exam Respiratory Exam: NORMAL BREATHING PATTERN. absent: Accessory Muscle Use, Respiratory Distress - Cardiovascular Exam Cardiovascular Exam: REGULAR RHYTHM, +S1, +S2. absent: Bradycardia, Tachycardia - GI/Abdominal Exam GI & Abdominal Exam: Distended, Soft, Hernia (umbilical hernia), Organomegaly. absent: Firm, Guarding, Rigid, Tenderness, Mass, Pulsatile Mass, Rebound - Extremities Exam Extremities Exam: absent: Calf Tenderness Additional comments: bilateral lower extremity cellulitis, red - Neurological Exam Neurological Exam: Alert, Awake, Oriented x3 Assessment and Plan - Assessment and Plan (Free Text) Assessment: 87M w/ colonic distention and ileus Plan: - c/s GI; all recs appreciated - Rectal tube - KUB later today - CLD - No acute surgical intervention indicated at this time - will continue to follow - d/w surgical attending PGY2 <Roly Lancaster - Last Filed: 01/31/18 12:36> Subjective - Date & Time of Evaluation Time of Evaluation: 12:10 - Subjective Subjective: Patient was seen and examined at the bedside. Agree with resident's note above. Objective - Vital Signs/Intake and Output Vital Signs (last 24 hours): Temp Pulse Resp BP Pulse Ox 98.9 F 73 18 145/71 90 L 01/31/18 12:11 01/31/18 12:11 01/31/18 12:11 01/31/18 12:11 01/31/18 12:11 Intake and Output: 01/31/18 01/31/18 06:59 18:59 Intake Total Output Total Balance - Medications Medications: Current Medications Albuterol (Ventolin Hfa 90 Mcg/Actuation (8 G)) 1 puff INH RQ6 PRN PRN Reason: Shortness of Breath Albuterol Sulfate (Albuterol 0.042% Inhal Olivia (1.25mg/3ml) Ud) 1.25 mg INH RQ4 [facility] Last Admin: 01/31/18 11:22 Dose: 1.25 mg Allopurinol (Zyloprim) 300 mg PO DAILY [facility] Last Admin: 01/31/18 09:04 Dose: 300 mg Amlodipine Besylate (Norvasc) 10 mg PO DAILY [facility] Last Admin: 01/31/18 09:03 Dose: 10 mg Aspirin (Ecotrin) 81 mg PO DAILY [facility] Last Admin: 01/31/18 09:03 Dose: 81 mg Atorvastatin Calcium (Lipitor) 20 mg PO HS [facility] Last Admin: 01/30/18 21:59 Dose: 20 mg Clobetasol Propionate (Temovate Cream) 1 applic TOP BID [facility] Last Admin: 01/31/18 09:02 Dose: 1 applic Docusate Sodium (Colace) 100 mg PO BID [facility] Last Admin: 01/31/18 09:02 Dose: Not Given Enoxaparin Sodium (Lovenox) 40 mg SC DAILY [facility]; Protocol Last Admin: 01/31/18 09:03 Dose: 40 mg Furosemide (Lasix) 40 mg IVP DAILY [facility] Last Admin: 01/30/18 09:04 Dose: 40 mg Cefazolin Sodium 1 gm/ Sodium (Chloride) 100 mls @ 100 mls/hr IVPB Q8@0600,14 00,2200 [facility]; Protocol Last Admin: 01/31/18 05:13 Dose: 100 mls/hr Methylprednisolone (Solu-Medrol) 30 mg IVP Q12 [facility] Last Admin: 01/31/18 09:04 Dose: 30 mg Metoprolol Tartrate (Lopressor) 25 mg PO Q12 [facility] Last Admin: 01/31/18 09:05 Dose: 25 mg Pantoprazole Sodium (Protonix Ec Tab) 40 mg PO DAILY [facility] Last Admin: 01/31/18 09:04 Dose: 40 mg Pyridostigmine [place] (Mestinon Tab) 30 mg PO TID [facility] Fluticasone/Salmeterol (Advair Diskus 250/50) 1 puff IH Q12 [facility] Last Admin: 01/31/18 09:02 Dose: 1 puff - Labs Labs: 01/31/18 06:00 01/31/18 06:00 PT 12.5 Seconds (9.8-13.1) 01/27/18 10:57 INR 1.1 01/27/18 10:57 APTT 35.0 Seconds (25.6-37.1) 01/27/18 10:57 - GI/Abdominal Exam Additional comments: soft, NT, improved distension, BS+, no rebound, no guarding
[2018-01-31] MEDS: Fluticasone-Salmeterol 250-50mcg Diskus IH SCH ×2 (09:02→21:03)
[2018-01-31] MEDS: Enoxaparin 40 mg Syringe SC SCH (09:03)
[2018-01-31] MEDS: Pantoprazole 40 mg EC Tab PO SCH (09:04)
[2018-01-31] MEDS: MethylPREDNISolone 40 mg Vial IVP SCH ×2 (09:04→21:05)
--- NOTE | 2018-01-31 09:35 | CP.PCM.PN ---
Subjective - Date & Time of Evaluation Date of Evaluation: 01/31/18 Time of Evaluation: 09:32 - Subjective Subjective: Patient in no acute distress and no vomiting. Rectal tube came out. Objective - Vital Signs/Intake and Output Vital Signs (last 24 hours): Temp Pulse Resp BP Pulse Ox 97.7 F 78 18 134/69 98 01/31/18 08:42 01/31/18 09:05 01/31/18 08:42 01/31/18 09:05 01/31/18 08:42 Intake and Output: 01/31/18 01/31/18 06:59 18:59 Intake Total Output Total Balance - Medications Medications: Current Medications Albuterol (Ventolin Hfa 90 Mcg/Actuation (8 G)) 1 puff INH RQ6 PRN PRN Reason: Shortness of Breath Albuterol Sulfate (Albuterol 0.042% Inhal Olivia (1.25mg/3ml) Ud) 1.25 mg INH RQ4 [facility] Last Admin: 01/31/18 05:20 Dose: 1.25 mg Allopurinol (Zyloprim) 300 mg PO DAILY [facility] Last Admin: 01/31/18 09:04 Dose: 300 mg Amlodipine Besylate (Norvasc) 10 mg PO DAILY [facility] Last Admin: 01/31/18 09:03 Dose: 10 mg Aspirin (Ecotrin) 81 mg PO DAILY [facility] Last Admin: 01/31/18 09:03 Dose: 81 mg Atorvastatin Calcium (Lipitor) 20 mg PO HS [facility] Last Admin: 01/30/18 21:59 Dose: 20 mg Clobetasol Propionate (Temovate Cream) 1 applic TOP BID [facility] Last Admin: 01/31/18 09:02 Dose: 1 applic Docusate Sodium (Colace) 100 mg PO BID [facility] Last Admin: 01/31/18 09:02 Dose: Not Given Enoxaparin Sodium (Lovenox) 40 mg SC DAILY [facility]; Protocol Last Admin: 01/31/18 09:03 Dose: 40 mg Furosemide (Lasix) 40 mg IVP DAILY [facility] Last Admin: 01/30/18 09:04 Dose: 40 mg Cefazolin Sodium 1 gm/ Sodium (Chloride) 100 mls @ 100 mls/hr IVPB Q8@0600,1400,2200 [facility]; Protocol Last Admin: 01/31/18 05:13 Dose: 100 mls/hr Methylprednisolone (Solu-Medrol) 30 mg IVP Q12 [facility] Last Admin: 01/31/18 09:04 Dose: 30 mg Metoprolol Tartrate (Lopressor) 25 mg PO Q12 [facility] Last Admin: 01/31/18 09:05 Dose: 25 mg Pantoprazole Sodium (Protonix Ec Tab) 40 mg PO DAILY [facility] Last Admin: 01/31/18 09:04 Dose: 40 mg Pyridostigmine [place] (Mestinon Tab) 30 mg PO TID [facility] Fluticasone/Salmeterol (Advair Diskus 250/50) 1 puff IH Q12 [facility] Last Admin: 01/31/18 09:02 Dose: 1 puff - Labs Labs: 01/31/18 06:00 01/31/18 06:00 PT 12.5 Seconds (9.8-13.1) 01/27/18 10:57 INR 1.1 01/27/18 10:57 APTT 35.0 Seconds (25.6-37.1) 01/27/18 10:57 - Head Exam Head Exam: ATRAUMATIC - Eye Exam Pupil Exam: PERRL - ENT Exam ENT Exam: Mucous Membranes Moist - Neck Exam Neck Exam: Full ROM - Respiratory Exam Respiratory Exam: Clear to Ausculation Bilateral - Cardiovascular Exam Cardiovascular Exam: REGULAR RHYTHM, +S1, +S2 - GI/Abdominal Exam GI & Abdominal Exam: Distended. absent: Tenderness Assessment and Plan (1) Abdominal distention Assessment & Plan: KUB shows massive distention. Will have rectal tube reinserted. Pyridostigmine 30 mg TID started Status: Acute
--- NOTE | 2018-01-31 09:36 | RAD ---
Date of service: 01/31/2018 HISTORY: abdominal distention COMPARISON: None available. FINDINGS: BOWEL: Multiple distended loops large bowel. No definite evidence of pneumoperitoneum. BONES: Normal. OTHER FINDINGS: None. IMPRESSION: Colonic ileus again noted.
--- NOTE | 2018-01-31 12:01 | CP.PCM.PN ---
Subjective - Date & Time of Evaluation Date of Evaluation: 01/31/18 Time of Evaluation: 22:22 - Subjective Subjective: Above noted WBC 12.5 Objective - Vital Signs/Intake and Output Vital Signs (last 24 hours): Temp Pulse Resp BP Pulse Ox 97.7 F 78 18 134/69 98 01/31/18 08:42 01/31/18 09:05 01/31/18 08:42 01/31/18 09:05 01/31/18 08:42 Intake and Output: 01/31/18 01/31/18 06:59 18:59 Intake Total Output Total Balance - Medications Medications: Current Medications Albuterol (Ventolin Hfa 90 Mcg/Actuation (8 G)) 1 puff INH RQ6 PRN PRN Reason: Shortness of Breath Albuterol Sulfate (Albuterol 0.042% Inhal Olivia (1.25mg/3ml) Ud) 1.25 mg INH RQ4 [facility] Last Admin: 01/31/18 11:22 Dose: 1.25 mg Allopurinol (Zyloprim) 300 mg PO DAILY [facility] Last Admin: 01/31/18 09:04 Dose: 300 mg Amlodipine Besylate (Norvasc) 10 mg PO DAILY [facility] Last Admin: 01/31/18 09:03 Dose: 10 mg Aspirin (Ecotrin) 81 mg PO DAILY [facility] Last Admin: 01/31/18 09:03 Dose: 81 mg Atorvastatin Calcium (Lipitor) 20 mg PO HS [facility] Last Admin: 01/30/18 21:59 Dose: 20 mg Clobetasol Propionate (Temovate Cream) 1 applic TOP BID [facility] Last Admin: 01/31/18 09:02 Dose: 1 applic Docusate Sodium (Colace) 100 mg PO BID [facility] Last Admin: 01/31/18 09:02 Dose: Not Given Enoxaparin Sodium (Lovenox) 40 mg SC DAILY [facility]; Protocol Last Admin: 01/31/18 09:03 Dose: 40 mg Furosemide (Lasix) 40 mg IVP DAILY [facility] Last Admin: 01/30/18 09:04 Dose: 40 mg Cefazolin Sodium 1 gm/ Sodium (Chloride) 100 mls @ 100 mls/hr IVPB Q8@0600,1400,2200 [facility]; Protocol Last Admin: 01/31/18 05:13 Dose: 100 mls/hr Methylprednisolone (Solu-Medrol) 30 mg IVP Q12 [facility] Last Admin: 01/31/18 09:04 Dose: 30 mg Metoprolol Tartrate (Lopressor) 25 mg PO Q12 [facility] Last Admin: 01/31/18 09:05 Dose: 25 mg Pantoprazole Sodium (Protonix Ec Tab) 40 mg PO DAILY [facility] Last Admin: 01/31/18 09:04 Dose: 40 mg Pyridostigmine [place] (Mestinon Tab) 30 mg PO TID [facility] Fluticasone/Salmeterol (Advair Diskus 250/50) 1 puff IH Q12 [facility] Last Admin: 01/31/18 09:02 Dose: 1 puff - Labs Labs: 01/31/18 06:00 01/31/18 06:00 PT 12.5 Seconds (9.8-13.1) 01/27/18 10:57 INR 1.1 01/27/18 10:57 APTT 35.0 Seconds (25.6-37.1) 01/27/18 10:57 - Respiratory Exam Respiratory Exam: NORMAL BREATHING PATTERN - Cardiovascular Exam Cardiovascular Exam: REGULAR RHYTHM - GI/Abdominal Exam GI & Abdominal Exam: Normal Bowel Sounds Assessment and Plan - Assessment and Plan (Free Text) Assessment: Distended abdomen CT scan/KUB colonic illeus As per Surgery GI NPO IVF Rectal tube HX Low back surgery (Severe Spinal Stenosis) Post operative illeus SOB COPD Smoker Pleural effusion steroids O2 CHF S/P TAVR Diuretics Pulmonary Cardiology Bilat Lower ext edema/ cellulitis ID ABX podiatry Hyponatremia 2 to fluid overload Hyperkalemia etiol?? Hold ARB Kaexylate Urine lytes Nephrology consult HTN Prediabetes
--- NOTE | 2018-01-31 13:26 | CP.PCM.PN ---
Subjective - Date & Time of Evaluation Date of Evaluation: 01/31/18 Time of Evaluation: 09:00 - Subjective Subjective: awake alert afebrile less belly pain Objective - Vital Signs/Intake and Output Vital Signs (last 24 hours): Temp Pulse Resp BP Pulse Ox 98.9 F 73 18 145/71 90 L 01/31/18 12:11 01/31/18 12:11 01/31/18 12:11 01/31/18 12:11 01/31/18 12:11 Intake and Output: 01/31/18 01/31/18 06:59 18:59 Intake Total Output Total Balance - Medications Medications: Current Medications Albuterol (Ventolin Hfa 90 Mcg/Actuation (8 G)) 1 puff INH RQ6 PRN PRN Reason: Shortness of Breath Albuterol Sulfate (Albuterol 0.042% Inhal Olivia (1.25mg/3ml) Ud) 1.25 mg INH RQ4 [facility] Last Admin: 01/31/18 11:22 Dose: 1.25 mg Allopurinol (Zyloprim) 300 mg PO DAILY [facility] Last Admin: 01/31/18 09:04 Dose: 300 mg Amlodipine Besylate (Norvasc) 10 mg PO DAILY [facility] Last Admin: 01/31/18 09:03 Dose: 10 mg Aspirin (Ecotrin) 81 mg PO DAILY [facility] Last Admin: 01/31/18 09:03 Dose: 81 mg Atorvastatin Calcium (Lipitor) 20 mg PO HS [facility] Last Admin: 01/30/18 21:59 Dose: 20 mg Clobetasol Propionate (Temovate Cream) 1 applic TOP BID [facility] Last Admin: 01/31/18 09:02 Dose: 1 applic Docusate Sodium (Colace) 100 mg PO BID [facility] Last Admin: 01/31/18 09:02 Dose: Not Given Enoxaparin Sodium (Lovenox) 40 mg SC DAILY [facility]; Protocol Last Admin: 01/31/18 09:03 Dose: 40 mg Furosemide (Lasix) 40 mg IVP DAILY [facility] Last Admin: 01/30/18 09:04 Dose: 40 mg Cefazolin Sodium 1 gm/ Sodium (Chloride) 100 mls @ 100 mls/hr IVPB Q8@0600,1400,2200 [facility]; Protocol Last Admin: 01/31/18 13:24 Dose: 100 mls/hr Methylprednisolone (Solu-Medrol) 30 mg IVP Q12 [facility] Last Admin: 01/31/18 09:04 Dose: 30 mg Metoprolol Tartrate (Lopressor) 25 mg PO Q12 [facility] Last Admin: 01/31/18 09:05 Dose: 25 mg Pantoprazole Sodium (Protonix Ec Tab) 40 mg PO DAILY [facility] Last Admin: 01/31/18 09:04 Dose: 40 mg Pyridostigmine [place] (Mestinon Tab) 30 mg PO TID [facility] Fluticasone/Salmeterol (Advair Diskus 250/50) 1 puff IH Q12 [facility] Last Admin: 01/31/18 09:02 Dose: 1 puff - Labs Labs: 01/31/18 06:00 01/31/18 06:00 PT 12.5 Seconds (9.8-13.1) 01/27/18 10:57 INR 1.1 01/27/18 10:57 APTT 35.0 Seconds (25.6-37.1) 01/27/18 10:57 - Constitutional Appears: Non-toxic, Chronically Ill - Head Exam Head Exam: NORMOCEPHALIC - Eye Exam Eye Exam: absent: Scleral icterus - ENT Exam ENT Exam: Mucous Membranes Dry - Neck Exam Neck Exam: absent: Lymphadenopathy - Respiratory Exam Respiratory Exam: Decreased Breath Sounds - Cardiovascular Exam Cardiovascular Exam: REGULAR RHYTHM - GI/Abdominal Exam GI & Abdominal Exam: Distended - Rectal Exam Rectal Exam: Deferred - Exam Exam: NORMAL INSPECTION Assessment and Plan (1) Atrial fibrillation Status: Acute (2) CHF (congestive heart failure) Status: Acute (3) COPD (chronic obstructive pulmonary disease) Status: Acute (4) Leg pain Status: Acute (5) Leukocytosis Status: Acute (6) Aortic stenosis Status: Chronic (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
[2018-02-01] MEDS: ceFAZolin 1 GM in Sodium Chloride 0.9% 100 ML IVPB SCH ×3 (05:12→21:04)
[2018-02-01] MEDS: Albuterol 0.042% Inhal Sol (1.25 mg/3 mL) UD INH SCH ×6 (05:23→23:46)
[2018-02-01 05:56] LABS: BASO % 0.4 % (0.0-2.0); EOS % 0.1 % (0.0-4.0); HEMOGLOBIN 12.3 g/dL (12.0-18.0); LYMPH # 0.5 K/uL (1.0-4.3); LYMPH % 6.9 % (20.0-40.0); MEAN CELL VOLUME 101.7 fl (80.0-94.0); MEAN CORPUSCULAR HEMOGLOBIN 32.5 pg (27.0-31.0); MEAN CORPUSCULAR HGB CONC 31.9 g/dL (33.0-37.0); MEAN PLATELET VOLUME 8.4 fl (7.2-11.7); MONO # 0.8 K/uL (0.0-0.8); MONO % 10.3 % (0.0-10.0); NEUT % 82.3 % (50.0-75.0); RBC 3.78 Mil/uL (4.40-5.90); RED CELL DISTRIBUTION WIDTH 15.7 % (11.5-14.5); WHITE BLOOD COUNT 7.3 K/uL (4.8-10.8)
[2018-02-01 06:16] LABS: BLOOD UREA NITROGEN 20 mg/dl (9-20); CALCIUM 8.7 mg/dL (8.4-10.2); GFR NON-AFRICAN AMERICAN > 60
--- NOTE | 2018-02-01 07:19 | CP.PCM.PN ---
<Nohelia Piper - Last Filed: 02/01/18 10:49> Subjective - Date & Time of Evaluation Date of Evaluation: 02/01/18 Time of Evaluation: 06:55 - Subjective Subjective: General Surgery Progress note for Dr. Lancaster Patient seen and examined this am bedside. No overnight events per nursing. Patient is resting comfortably in bed and states that he feels fine. Rectal tube is in place with brown stool output in tube. Patient otherwise denies f/c, n/v, IRENE, SOB, CP, abdominal pain and extremity pain. Tolerating CLD. Objective - Vital Signs/Intake and Output Vital Signs (last 24 hours): Temp Pulse Resp BP Pulse Ox 97.9 F 71 18 138/72 95 02/01/18 05:00 02/01/18 05:00 02/01/18 05:00 02/01/18 05:00 02/01/18 05:00 - Medications Medications: Current Medications Albuterol (Ventolin Hfa 90 Mcg/Actuation (8 G)) 1 puff INH RQ6 PRN PRN Reason: Shortness of Breath Albuterol Sulfate (Albuterol 0.042% Inhal Olivia (1.25mg/3ml) Ud) 1.25 mg INH RQ4 [facility] Last Admin: 02/01/18 05:23 Dose: Not Given Allopurinol (Zyloprim) 300 mg PO DAILY [facility] Last Admin: 01/31/18 09:04 Dose: 300 mg Amlodipine Besylate (Norvasc) 10 mg PO DAILY [facility] Last Admin: 01/31/18 09:03 Dose: 10 mg Aspirin (Ecotrin) 81 mg PO DAILY [facility] Last Admin: 01/31/18 09:03 Dose: 81 mg Atorvastatin Calcium (Lipitor) 20 mg PO HS [facility] Last Admin: 01/31/18 21:04 Dose: 20 mg Clobetasol Propionate (Temovate Cream) 1 applic TOP BID [facility] Last Admin: 01/31/18 16:40 Dose: 1 applic Docusate Sodium (Colace) 100 mg PO BID [facility] Last Admin: 01/31/18 16:37 Dose: Not Given Enoxaparin Sodium (Lovenox) 40 mg SC DAILY [facility]; Protocol Last Admin: 01/31/18 09:03 Dose: 40 mg Furosemide (Lasix) 40 mg IVP DAILY [facility] Last Admin: 01/31/18 09:00 Dose: 40 mg Cefazolin Sodium 1 gm/ Sodium (Chloride) 100 mls @ 100 mls/hr IVPB Q8@0600,1400,2200 [facility]; Protocol Last Admin: 02/01/18 05:12 Dose: 100 mls/hr Methylprednisolone (Solu-Medrol) 30 mg IVP Q12 [facility] Last Admin: 01/31/18 21:05 Dose: 30 mg Metoprolol Tartrate (Lopressor) 25 mg PO Q12 [facility] Last Admin: 01/31/18 21:04 Dose: 25 mg Pantoprazole Sodium (Protonix Ec Tab) 40 mg PO DAILY [facility] Last Admin: 01/31/18 09:04 Dose: 40 mg Pyridostigmine [place] (Mestinon Tab) 30 mg PO TID [facility] Last Admin: 01/31/18 16:39 Dose: 30 mg Fluticasone/Salmeterol (Advair Diskus 250/50) 1 puff IH Q12 [facility] Last Admin: 01/31/18 21:03 Dose: 1 puff - Labs Labs: 02/01/18 04:20 02/01/18 04:20 PT 12.5 Seconds (9.8-13.1) 01/27/18 10:57 INR 1.1 01/27/18 10:57 APTT 35.0 Seconds (25.6-37.1) 01/27/18 10:57 - Constitutional Appears: Well, Non-toxic, No Acute Distress - Head Exam Head Exam: ATRAUMATIC, NORMOCEPHALIC - Eye Exam Eye Exam: EOMI - ENT Exam ENT Exam: Mucous Membranes Moist - Respiratory Exam Respiratory Exam: NORMAL BREATHING PATTERN - Cardiovascular Exam Cardiovascular Exam: REGULAR RHYTHM - GI/Abdominal Exam GI & Abdominal Exam: Distended, Soft. absent: Guarding, Tenderness - Rectal Exam Additional comments: rectal tube in place - Extremities Exam Extremities Exam: absent: Calf Tenderness, Pedal Edema - Neurological Exam Neurological Exam: Alert, Awake, Oriented x3 - Psychiatric Exam Psychiatric exam: Normal Affect, Normal Mood - Skin Skin Exam: Dry, Intact, Normal Color, Warm Assessment and Plan - Assessment and Plan (Free Text) Assessment: 87 yr old male with colonic ileus Plan: c/w CLD f/u bowel function Electrolytes repleted c/w medical management no surgical intervention at this time will d/w Dr. Tonny Eatonwin, PGY 1 <Roly Lancaster - Last Filed: 02/01/18 13:36> Subjective - Date & Time of Evaluation Time of Evaluation: 13:00 - Subjective Subjective: Patient was seen and examined at the bedside. Agree with resident's note above Objective - Vital Signs/Intake and Output Vital Signs (last 24 hours): Temp Pulse Resp BP Pulse Ox 98.3 F 75 18 136/66 96 02/01/18 11:58 02/01/18 11:58 02/01/18 11:58 02/01/18 11:58 02/01/18 11:58 - Medications Medications: Current Medications Albuterol (Ventolin Hfa 90 Mcg/Actuation (8 G)) 1 puff INH RQ6 PRN PRN Reason: Shortness of Breath Albuterol Sulfate (Albuterol 0.042% Inhal Olivia (1.25mg/3ml) Ud) 1.25 mg INH RQ4 [facility] Last Admin: 02/01/18 11:35 Dose: 1.25 mg Allopurinol (Zyloprim) 300 mg PO DAILY [facility] Last Admin: 02/01/18 09:19 Dose: 300 mg Amlodipine Besylate (Norvasc) 10 mg PO DAILY [facility] Last Admin: 02/01/18 09:20 Dose: 10 mg Aspirin (Ecotrin) 81 mg PO DAILY [facility] Last Admin: 02/01/18 09:17 Dose: 81 mg Atorvastatin Calcium (Lipitor) 20 mg PO HS [facility] Last Admin: 01/31/18 21:04 Dose: 20 mg Clobetasol Propionate (Temovate Cream) 1 applic TOP BID [facility] Last Admin: 02/01/18 09:20 Dose: 1 applic Docusate Sodium (Colace) 100 mg PO BID [facility] Last Admin: 02/01/18 09:17 Dose: 100 mg Enalapril Maleate (Vasotec) 10 mg PO DAILY [facility] Enoxaparin Sodium (Lovenox) 40 mg SC DAILY [facility]; Protocol Last Admin: 02/01/18 09:18 Dose: 40 mg Furosemide (Lasix) 40 mg IVP DAILY [facility] Last Admin: 02/01/18 09:17 Dose: 40 mg Cefazolin Sodium 1 gm/ Sodium (Chloride) 100 mls @ 100 mls/hr IVPB Q8@0600,1400,2200 [facility]; Protocol Last Admin: 02/01/18 05:12 Dose: 100 mls/hr Potassium Chloride (Potassium Chloride 20 Meq/100 Ml) 100 mls @ 50 mls/hr IV Q2 [facility] Stop: 02/01/18 13:59 Last Admin: 02/01/18 11:20 Dose: 50 mls/hr Methylprednisolone (Solu-Medrol) 30 mg IVP Q12 [facility] Last Admin: 02/01/18 09:19 Dose: 30 mg Metoprolol Tartrate (Lopressor) 25 mg PO Q12 [facility] Last Admin: 02/01/18 09:18 Dose: 25 mg Pantoprazole Sodium (Protonix Ec Tab) 40 mg PO DAILY [facility] Last Admin: 02/01/18 09:21 Dose: 40 mg Pyridostigmine [place] (Mestinon Tab) 30 mg PO TID [facility] Last Admin: 02/01/18 12:15 Dose: 30 mg Fluticasone/Salmeterol (Advair Diskus 250/50) 1 puff IH Q12 [facility] Last Admin: 02/01/18 09:16 Dose: 1 puff - Labs Labs: 02/01/18 04:20 02/01/18 04:20 PT 12.5 Seconds (9.8-13.1) 01/27/18 10:57 INR 1.1 01/27/18 10:57 APTT 35.0 Seconds (25.6-37.1) 01/27/18 10:57 - GI/Abdominal Exam Additional comments: soft, improved distension, NT, BS+, no rebound, no guarding Assessment and Plan - Assessment and Plan (Free Text) Plan: - Continue rectal tube - Repeat labs in am - Will follow
[2018-02-01] MEDS: Fluticasone-Salmeterol 250-50mcg Diskus IH SCH ×2 (09:16→21:03)
[2018-02-01] MEDS: Enoxaparin 40 mg Syringe SC SCH (09:18)
[2018-02-01] MEDS: MethylPREDNISolone 40 mg Vial IVP SCH ×2 (09:19→21:05)
[2018-02-01] MEDS: Pantoprazole 40 mg EC Tab PO SCH (09:21)
[2018-02-01] MEDS: Potassium Chloride 20 mEq 100 ML IV SCH ×3 (09:21→13:42)
--- NOTE | 2018-02-01 10:16 | CP.PCM.PN ---
Subjective - Date & Time of Evaluation Date of Evaluation: 02/01/18 (n) Time of Evaluation: 10:15 - Subjective Subjective: Podiatry progress Note for Dr. Kirk 87M with PMH CHF, HTN, HLD, Bronchitis, COPD (noncompliant with home o2), gout who was originally admitted 01/27 for persistent cough and SOB seen at bedside for b/l LE redness. Patient denies any pain to either leg. He denies any further pedal complaints at this time. He is AAO x 3 and NAD, resting comfortably in bed. Objective - Vital Signs/Intake and Output Vital Signs (last 24 hours): Temp Pulse Resp BP Pulse Ox 97.4 F L 82 18 134/64 90 L 02/01/18 08:30 02/01/18 08:30 02/01/18 08:30 02/01/18 09:17 02/01/18 08:30 - Medications Medications: Current Medications Albuterol (Ventolin Hfa 90 Mcg/Actuation (8 G)) 1 puff INH RQ6 PRN PRN Reason: Shortness of Breath Albuterol Sulfate (Albuterol 0.042% Inhal Olivia (1.25mg/3ml) Ud) 1.25 mg INH RQ4 [facility] Last Admin: 02/01/18 08:43 Dose: 1.25 mg Allopurinol (Zyloprim) 300 mg PO DAILY [facility] Last Admin: 02/01/18 09:19 Dose: 300 mg Amlodipine Besylate (Norvasc) 10 mg PO DAILY [facility] Last Admin: 02/01/18 09:20 Dose: 10 mg Aspirin (Ecotrin) 81 mg PO DAILY [facility] Last Admin: 02/01/18 09:17 Dose: 81 mg Atorvastatin Calcium (Lipitor) 20 mg PO HS [facility] Last Admin: 01/31/18 21:04 Dose: 20 mg Clobetasol Propionate (Temovate Cream) 1 applic TOP BID [facility] Last Admin: 02/01/18 09:20 Dose: 1 applic Docusate Sodium (Colace) 100 mg PO BID [facility] Last Admin: 02/01/18 09:17 Dose: 100 mg Enoxaparin Sodium (Lovenox) 40 mg SC DAILY [facility]; Protocol Last Admin: 02/01/18 09:18 Dose: 40 mg Furosemide (Lasix) 40 mg IVP DAILY [facility] Last Admin: 02/01/18 09:17 Dose: 40 mg Cefazolin Sodium 1 gm/ Sodium (Chloride) 100 mls @ 100 mls/hr IVPB Q8@0600,1400,2200 [facility]; Protocol Last Admin: 02/01/18 05:12 Dose: 100 mls/hr Potassium Chloride (Potassium Chloride 20 Meq/100 Ml) 100 mls @ 50 mls/hr IV Q2 [facility] Stop: 02/01/18 13:59 Last Admin: 02/01/18 09:21 Dose: 50 mls/hr Methylprednisolone (Solu-Medrol) 30 mg IVP Q12 [facility] Last Admin: 02/01/18 09:19 Dose: 30 mg Metoprolol Tartrate (Lopressor) 25 mg PO Q12 [facility] Last Admin: 02/01/18 09:18 Dose: 25 mg Pantoprazole Sodium (Protonix Ec Tab) 40 mg PO DAILY [facility] Last Admin: 02/01/18 09:21 Dose: 40 mg Pyridostigmine [place] (Mestinon Tab) 30 mg PO TID [facility] Last Admin: 02/01/18 09:19 Dose: 30 mg Fluticasone/Salmeterol (Advair Diskus 250/50) 1 puff IH Q12 [facility] Last Admin: 02/01/18 09:16 Dose: 1 puff - Labs Labs: 02/01/18 04:20 02/01/18 04:20 PT 12.5 Seconds (9.8-13.1) 01/27/18 10:57 INR 1.1 01/27/18 10:57 APTT 35.0 Seconds (25.6-37.1) 01/27/18 10:57 - Constitutional Appears: Well, Non-toxic - Head Exam Head Exam: ATRAUMATIC - Extremities Exam Additional comments: B/l LE focused exam: Vasc: DP/PT pulses palpable 1/4 b/l secondary to 1+ pitting b/l. CFT < 3 seconds to all digits b/l. Skin temperature gradient warm to warm from proximal to distal. No increased warmth noted at sites of erythema. Neuro: Epicritic and protective sensation grossly intact b/l Derm: B/l dark erythematous changes to skin noted to anteromedial shins. Color change appears to be more attributable to probable venous congestion that to cellulitic changes. No open lesions, wounds, maceration, xerosis noted to b/l LE MSK: No POP to erythematous site. ROM WNL at all major joints. MMT 4/5 in all major muscle groups Assessment and Plan - Assessment and Plan (Free Text) Plan: Patient seen and evaluated at bedside Plan discussed with Dr. Kirk Chart, labs and vitals reviewed; afebrile and absent leukocytosis Continue abx per ID No plan for surgical intervention at this time No dressings applied to LE at this time Podiatry will continue to follow while patient in house
--- NOTE | 2018-02-01 16:15 | CP.PCM.PN ---
Subjective - Date & Time of Evaluation Date of Evaluation: 02/01/18 Time of Evaluation: 16:14 - Subjective Subjective: RENAL Consult Note CC: leg swelling reason for consult: hyperkalemia and hyponatremia HPI: pt is a 87 M with hx of HTN COPD s/p TAVR admitted to hospital with worsening SOB for last few days with cough and leg edema and found to have COPD/CHF exacerbation and renal consult for electrolytes eval pt reports worsening leg swelling. SOB better. cough improved. no nausea/vomitting or urine complaints no issues with K or Na in past s: seen and examined no new complaints. feels better no CP/nausea/vomitting. all other negative except as mentioned in hpi. improved SOB stomach upset and distension, gas reported by pt. o/e: vss, obese male gen: nad sclera: anicteric heent; perrla op: clear neck: supple no thyromegaly lungs: b/l air entry reduced at bases with crackles cv: +S1+s2 no rub abd: soft no organomegaly nt/nd, distended and tympanic. has rectal tube ext: 1+ edema with erythematous changes neuro: A+OX3 no focal deficit psych: nml affect/mood. limited insight skin: No rash no ulcer except erythema in legs work up: cxr: CHF pattern with small effusions echo normal LVEF TSh 2.4 imp: hypervolemic hyponatremia likely fluid overload and diastolic CHF exacerbation hyperkalemia due to impaired distal tubule sodium delivery as evident by urine Na <5 HTN, COPD exacerbation s/p TAVR Obesity leg cellulitis plan: Cr stable continue to monitor bp controlled. resume enalapril from tomorrow continue with lasix 40 mg daily. low Na diet glycemic control management of COPD as per primary team ID following dose meds for GFR >60 thanks for consult Please call if any Qs [phone] Objective - Vital Signs/Intake and Output Vital Signs (last 24 hours): Temp Pulse Resp BP Pulse Ox 97.6 F 87 17 126/67 98 02/01/18 15:49 02/01/18 15:49 02/01/18 15:49 02/01/18 15:49 02/01/18 15:49 - Medications Medications: Current Medications Albuterol (Ventolin Hfa 90 Mcg/Actuation (8 G)) 1 puff INH RQ6 PRN PRN Reason: Shortness of Breath Albuterol Sulfate (Albuterol 0.042% Inhal Olivia (1.25mg/3ml) Ud) 1.25 mg INH RQ4 [facility] Last Admin: 02/01/18 15:33 Dose: 1.25 mg Allopurinol (Zyloprim) 300 mg PO DAILY [facility] Last Admin: 02/01/18 09:19 Dose: 300 mg Amlodipine Besylate (Norvasc) 10 mg PO DAILY [facility] Last Admin: 02/01/18 09:20 Dose: 10 mg Aspirin (Ecotrin) 81 mg PO DAILY [facility] Last Admin: 02/01/18 09:17 Dose: 81 mg Atorvastatin Calcium (Lipitor) 20 mg PO HS [facility] Last Admin: 01/31/18 21:04 Dose: 20 mg Clobetasol Propionate (Temovate Cream) 1 applic TOP BID [facility] Last Admin: 02/01/18 09:20 Dose: 1 applic Docusate Sodium (Colace) 100 mg PO BID [facility] Last Admin: 02/01/18 09:17 Dose: 100 mg Enalapril Maleate (Vasotec) 10 mg PO DAILY [facility] Enoxaparin Sodium (Lovenox) 40 mg SC DAILY [facility]; Protocol Last Admin: 02/01/18 09:18 Dose: 40 mg Furosemide (Lasix) 40 mg IVP DAILY [facility] Last Admin: 02/01/18 09:17 Dose: 40 mg Cefazolin Sodium 1 gm/ Sodium (Chloride) 100 mls @ 100 mls/hr IVPB Q8@0600,1400,2200 [facility]; Protocol Last Admin: 02/01/18 13:46 Dose: 100 mls/hr Methylprednisolone (Solu-Medrol) 30 mg IVP Q12 [facility] Last Admin: 02/01/18 09:19 Dose: 30 mg Metoprolol Tartrate (Lopressor) 25 mg PO Q12 [facility] Last Admin: 02/01/18 09:18 Dose: 25 mg Pantoprazole Sodium (Protonix Ec Tab) 40 mg PO DAILY [facility] Last Admin: 02/01/18 09:21 Dose: 40 mg Pyridostigmine [place] (Mestinon Tab) 30 mg PO TID [facility] Last Admin: 02/01/18 12:15 Dose: 30 mg Fluticasone/Salmeterol (Advair Diskus 250/50) 1 puff IH Q12 [facility] Last Admin: 02/01/18 09:16 Dose: 1 puff - Labs Labs: 02/01/18 04:20 02/01/18 04:20 PT 12.5 Seconds (9.8-13.1) 01/27/18 10:57 INR 1.1 01/27/18 10:57 APTT 35.0 Seconds (25.6-37.1) 01/27/18 10:57
--- NOTE | 2018-02-01 20:05 | CP.PCM.PN ---
Subjective - Date & Time of Evaluation Date of Evaluation: 02/01/18 Time of Evaluation: 22:22 - Subjective Subjective: Above noted K= 3.3 WBC 7.3 Objective - Vital Signs/Intake and Output Vital Signs (last 24 hours): Temp Pulse Resp BP Pulse Ox 97.6 F 87 17 126/67 98 02/01/18 15:49 02/01/18 15:49 02/01/18 15:49 02/01/18 15:49 02/01/18 15:49 - Medications Medications: Current Medications Albuterol (Ventolin Hfa 90 Mcg/Actuation (8 G)) 1 puff INH RQ6 PRN PRN Reason: Shortness of Breath Albuterol Sulfate (Albuterol 0.042% Inhal Olivia (1.25mg/3ml) Ud) 1.25 mg INH RQ4 [facility] Last Admin: 02/01/18 19:11 Dose: 1.25 mg Allopurinol (Zyloprim) 300 mg PO DAILY [facility] Last Admin: 02/01/18 09:19 Dose: 300 mg Amlodipine Besylate (Norvasc) 10 mg PO DAILY [facility] Last Admin: 02/01/18 09:20 Dose: 10 mg Aspirin (Ecotrin) 81 mg PO DAILY [facility] Last Admin: 02/01/18 09:17 Dose: 81 mg Atorvastatin Calcium (Lipitor) 20 mg PO HS [facility] Last Admin: 01/31/18 21:04 Dose: 20 mg Clobetasol Propionate (Temovate Cream) 1 applic TOP BID [facility] Last Admin: 02/01/18 16:12 Dose: 1 applic Docusate Sodium (Colace) 100 mg PO BID [facility] Last Admin: 02/01/18 16:12 Dose: 100 mg Enalapril Maleate (Vasotec) 10 mg PO DAILY [facility] Enoxaparin Sodium (Lovenox) 40 mg SC DAILY [facility]; Protocol Last Admin: 02/01/18 09:18 Dose: 40 mg Furosemide (Lasix) 40 mg IVP DAILY [facility] Last Admin: 02/01/18 09:17 Dose: 40 mg Cefazolin Sodium 1 gm/ Sodium (Chloride) 100 mls @ 100 mls/hr IVPB Q8@0600,1400,2200 [facility]; Protocol Last Admin: 02/01/18 13:46 Dose: 100 mls/hr Methylprednisolone (Solu-Medrol) 30 mg IVP Q12 [facility] Last Admin: 02/01/18 09:19 Dose: 30 mg Metoprolol Tartrate (Lopressor) 25 mg PO Q12 [facility] Last Admin: 02/01/18 09:18 Dose: 25 mg Pantoprazole Sodium (Protonix Ec Tab) 40 mg PO DAILY [facility] Last Admin: 02/01/18 09:21 Dose: 40 mg Pyridostigmine [place] (Mestinon Tab) 30 mg PO TID [facility] Last Admin: 02/01/18 16:11 Dose: 30 mg Fluticasone/Salmeterol (Advair Diskus 250/50) 1 puff IH Q12 [facility] Last Admin: 02/01/18 09:16 Dose: 1 puff - Labs Labs: 02/01/18 04:20 02/01/18 04:20 PT 12.5 Seconds (9.8-13.1) 01/27/18 10:57 INR 1.1 01/27/18 10:57 APTT 35.0 Seconds (25.6-37.1) 01/27/18 10:57 - Respiratory Exam Respiratory Exam: NORMAL BREATHING PATTERN - Cardiovascular Exam Cardiovascular Exam: REGULAR RHYTHM - GI/Abdominal Exam GI & Abdominal Exam: Normal Bowel Sounds Assessment and Plan - Assessment and Plan (Free Text) Assessment: Distended abdomen CT scan/KUB colonic illeus As per Surgery GI NPO IVF Rectal tube HX Low back surgery (Severe Spinal Stenosis) Post operative illeus SOB COPD Smoker Pleural effusion steroids O2 CHF S/P TAVR Diuretics Pulmonary Cardiology Bilat Lower ext edema/ cellulitis ID ABX podiatry Hypokalemia 2 to GI?? K+ suppl Hyponatremia 2 to fluid overload Hyperkalemia etiol?? Hold ARB Kaexylate Urine lytes Nephrology consult HTN Prediabetes
--- NOTE | 2018-02-01 20:06 | CP.PCM.PN ---
Subjective - Date & Time of Evaluation Date of Evaluation: 02/01/18 Time of Evaluation: 12:00 - Subjective Subjective: Patient appears comfortable. Rectal tube in place. Objective - Vital Signs/Intake and Output Vital Signs (last 24 hours): Temp Pulse Resp BP Pulse Ox 97.6 F 87 17 126/67 98 02/01/18 15:49 02/01/18 15:49 02/01/18 15:49 02/01/18 15:49 02/01/18 15:49 - Medications Medications: Current Medications Albuterol (Ventolin Hfa 90 Mcg/Actuation (8 G)) 1 puff INH RQ6 PRN PRN Reason: Shortness of Breath Albuterol Sulfate (Albuterol 0.042% Inhal Olivia (1.25mg/3ml) Ud) 1.25 mg INH RQ4 [facility] Last Admin: 02/01/18 19:11 Dose: 1.25 mg Allopurinol (Zyloprim) 300 mg PO DAILY [facility] Last Admin: 02/01/18 09:19 Dose: 300 mg Amlodipine Besylate (Norvasc) 10 mg PO DAILY [facility] Last Admin: 02/01/18 09:20 Dose: 10 mg Aspirin (Ecotrin) 81 mg PO DAILY [facility] Last Admin: 02/01/18 09:17 Dose: 81 mg Atorvastatin Calcium (Lipitor) 20 mg PO HS [facility] Last Admin: 01/31/18 21:04 Dose: 20 mg Clobetasol Propionate (Temovate Cream) 1 applic TOP BID [facility] Last Admin: 02/01/18 16:12 Dose: 1 applic Docusate Sodium (Colace) 100 mg PO BID [facility] Last Admin: 02/01/18 16:12 Dose: 100 mg Enalapril Maleate (Vasotec) 10 mg PO DAILY [facility] Enoxaparin Sodium (Lovenox) 40 mg SC DAILY [facility]; Protocol Last Admin: 02/01/18 09:18 Dose: 40 mg Furosemide (Lasix) 40 mg IVP DAILY [facility] Last Admin: 02/01/18 09:17 Dose: 40 mg Cefazolin Sodium 1 gm/ Sodium (Chloride) 100 mls @ 100 mls/hr IVPB Q8@0600,1400,2200 [facility]; Protocol Last Admin: 02/01/18 13:46 Dose: 100 mls/hr Methylprednisolone (Solu-Medrol) 30 mg IVP Q12 [facility] Last Admin: 02/01/18 09:19 Dose: 30 mg Metoprolol Tartrate (Lopressor) 25 mg PO Q12 [facility] Last Admin: 02/01/18 09:18 Dose: 25 mg Pantoprazole Sodium (Protonix Ec Tab) 40 mg PO DAILY [facility] Last Admin: 02/01/18 09:21 Dose: 40 mg Pyridostigmine [place] (Mestinon Tab) 30 mg PO TID [facility] Last Admin: 02/01/18 16:11 Dose: 30 mg Fluticasone/Salmeterol (Advair Diskus 250/50) 1 puff IH Q12 [facility] Last Admin: 02/01/18 09:16 Dose: 1 puff - Labs Labs: 02/01/18 04:20 02/01/18 04:20 PT 12.5 Seconds (9.8-13.1) 01/27/18 10:57 INR 1.1 01/27/18 10:57 APTT 35.0 Seconds (25.6-37.1) 01/27/18 10:57 - Head Exam Head Exam: ATRAUMATIC - Eye Exam Eye Exam: PERRL - ENT Exam ENT Exam: Normal Exam - Neck Exam Neck Exam: Normal Inspection - Respiratory Exam Respiratory Exam: Clear to Ausculation Bilateral - Cardiovascular Exam Cardiovascular Exam: REGULAR RHYTHM - GI/Abdominal Exam GI & Abdominal Exam: Distended, Soft, Normal Bowel Sounds Assessment and Plan (1) Abdominal distention Assessment & Plan: Still distended. Rectal tube draining loose brown stool. KUB tomorrow. Status: Acute
[2018-02-02] MEDS: Albuterol 0.042% Inhal Sol (1.25 mg/3 mL) UD INH SCH ×6 (04:55→23:54)
[2018-02-02] MEDS: ceFAZolin 1 GM in Sodium Chloride 0.9% 100 ML IVPB SCH ×3 (05:17→22:04)
[2018-02-02 05:38] LABS: BASO % 0.1 % (0.0-2.0); HEMOGLOBIN 12.4 g/dL (12.0-18.0); LYMPH # 0.2 K/uL (1.0-4.3); LYMPH % 4.3 % (20.0-40.0); MEAN CELL VOLUME 103.1 fl (80.0-94.0); MEAN CORPUSCULAR HEMOGLOBIN 32.6 pg (27.0-31.0); MEAN CORPUSCULAR HGB CONC 31.6 g/dL (33.0-37.0); MEAN PLATELET VOLUME 8.5 fl (7.2-11.7); MONO # 0.2 K/uL (0.0-0.8); MONO % 3.3 % (0.0-10.0); NEUT # 5.1 K/uL (1.8-7.0); NEUT % 92.3 % (50.0-75.0); PLATELET COUNT 101 K/uL (130-400); RED CELL DISTRIBUTION WIDTH 15.4 % (11.5-14.5); WHITE BLOOD COUNT 5.5 K/uL (4.8-10.8)
[2018-02-02 05:49] LABS: BLOOD UREA NITROGEN 21 mg/dl (9-20); CALCIUM 8.4 mg/dL (8.4-10.2); GFR NON-AFRICAN AMERICAN > 60
[2018-02-02 06:39] LABS: ACANTHOCYTES SLIGHT; ANISOCYTOSIS SLIGHT; BANDS 2 % (0-2); HYPOCHROMIC SLIGHT; LYMPHOCYTE 2 % (20-50); MONOCYTE 4 % (0-10); NEUTROPHIL 91 % (42-75); PLATELET ESTIMATE MARKEDLY DECREASED (NORMAL); REACTIVE LYMPHOCYTES 1 % (0-0); TOTAL CELLS COUNTED 100
--- NOTE | 2018-02-02 07:19 | CP.PCM.PN ---
<FelizNohelia - Last Filed: 02/02/18 07:11> Subjective - Date & Time of Evaluation Date of Evaluation: 02/02/18 Time of Evaluation: 06:45 - Subjective Subjective: General Surgery progress note for Dr. Lancaster Patient seen and examined this am at bedside. No acute events overnight per nursing. Patient reports that his rectal tube was dislodged overnight but was not replaced because he is now having bowel function. He has had several loose stools overnight and is passing gas. He states that he feels much better and less distended. He otherwise denies f/c, n/v, IRENE Chest pain, SOB, abdominal pain and dysuria. Objective - Vital Signs/Intake and Output Vital Signs (last 24 hours): Temp Pulse Resp BP Pulse Ox 97.7 F 57 L 18 127/64 93 L 02/02/18 04:59 02/02/18 04:59 02/02/18 04:59 02/02/18 04:59 02/02/18 04:59 - Medications Medications: Current Medications Albuterol (Ventolin Hfa 90 Mcg/Actuation (8 G)) 1 puff INH RQ6 PRN PRN Reason: Shortness of Breath Albuterol Sulfate (Albuterol 0.042% Inhal Olivia (1.25mg/3ml) Ud) 1.25 mg INH RQ4 [facility] Last Admin: 02/02/18 04:55 Dose: 1.25 mg Allopurinol (Zyloprim) 300 mg PO DAILY [facility] Last Admin: 02/01/18 09:19 Dose: 300 mg Amlodipine Besylate (Norvasc) 10 mg PO DAILY [facility] Last Admin: 02/01/18 09:20 Dose: 10 mg Aspirin (Ecotrin) 81 mg PO DAILY [facility] Last Admin: 02/01/18 09:17 Dose: 81 mg Atorvastatin Calcium (Lipitor) 20 mg PO HS [facility] Last Admin: 02/01/18 21:04 Dose: 20 mg Clobetasol Propionate (Temovate Cream) 1 applic TOP BID [facility] Last Admin: 02/01/18 16:12 Dose: 1 applic Docusate Sodium (Colace) 100 mg PO BID [facility] Last Admin: 02/01/18 16:12 Dose: 100 mg Enalapril Maleate (Vasotec) 10 mg PO DAILY [facility] Enoxaparin Sodium (Lovenox) 40 mg SC DAILY [facility]; Protocol Last Admin: 02/01/18 09:18 Dose: 40 mg Furosemide (Lasix) 40 mg IVP DAILY [facility] Last Admin: 02/01/18 09:17 Dose: 40 mg Cefazolin Sodium 1 gm/ Sodium (Chloride) 100 mls @ 100 mls/hr IVPB Q8@0600,1400,2200 [facility]; Protocol Last Admin: 02/02/18 05:17 Dose: 100 mls/hr Methylprednisolone (Solu-Medrol) 30 mg IVP Q12 [facility] Last Admin: 02/01/18 21:05 Dose: 30 mg Metoprolol Tartrate (Lopressor) 25 mg PO Q12 [facility] Last Admin: 02/01/18 21:04 Dose: 25 mg Pantoprazole Sodium (Protonix Ec Tab) 40 mg PO DAILY [facility] Last Admin: 02/01/18 09:21 Dose: 40 mg Pyridostigmine [place] (Mestinon Tab) 30 mg PO TID [facility] Last Admin: 02/01/18 16:11 Dose: 30 mg - Labs Labs: 02/02/18 04:20 02/02/18 04:20 PT 12.5 Seconds (9.8-13.1) 01/27/18 10:57 INR 1.1 01/27/18 10:57 APTT 35.0 Seconds (25.6-37.1) 01/27/18 10:57 - Constitutional Appears: Well, Non-toxic, No Acute Distress - Head Exam Head Exam: ATRAUMATIC, NORMOCEPHALIC - Eye Exam Eye Exam: EOMI - ENT Exam ENT Exam: Mucous Membranes Moist - Respiratory Exam Respiratory Exam: NORMAL BREATHING PATTERN - Cardiovascular Exam Cardiovascular Exam: REGULAR RHYTHM - GI/Abdominal Exam GI & Abdominal Exam: Distended (much improved, nearly to baseline), Soft. absent: Firm, Guarding, Tenderness - Rectal Exam Additional comments: rectal tube no longer in place - Extremities Exam Extremities Exam: absent: Calf Tenderness, Pedal Edema - Neurological Exam Neurological Exam: Alert, Awake, Oriented x3 - Psychiatric Exam Psychiatric exam: Normal Affect - Skin Skin Exam: Dry, Intact, Warm Additional comments: areas on anterior lower legs erythematous consistent with cellulitis Assessment and Plan - Assessment and Plan (Free Text) Assessment: 87 yr old male with colonic ileus, resolving Plan: Advance diet as tolerated clinically improving no further surgical intervention at this time please reconsult as necessary will d/w Dr. Tonny Piper, PGY 1 <Roly Lancaster - Last Filed: 02/02/18 10:33> Subjective - Date & Time of Evaluation Time of Evaluation: 10:00 - Subjective Subjective: Patient was seen and examined at the bedside. Agree with resident's note above. Objective - Vital Signs/Intake and Output Vital Signs (last 24 hours): Temp Pulse Resp BP Pulse Ox 97.7 F 73 18 137/71 93 L 02/02/18 08:00 02/02/18 08:00 02/02/18 08:00 02/02/18 09:19 02/02/18 08:00 - Medications Medications: Current Medications Albuterol (Ventolin Hfa 90 Mcg/Actuation (8 G)) 1 puff INH RQ6 PRN PRN Reason: Shortness of Breath Albuterol Sulfate (Albuterol 0.042% Inhal Olivia (1.25mg/3ml) Ud) 1.25 mg INH RQ4 [facility] Last Admin: 02/02/18 07:54 Dose: 1.25 mg Allopurinol (Zyloprim) 300 mg PO DAILY [facility] Last Admin: 02/02/18 09:20 Dose: 300 mg Amlodipine Besylate (Norvasc) 10 mg PO DAILY [facility] Last Admin: 02/02/18 09:20 Dose: 10 mg Aspirin (Ecotrin) 81 mg PO DAILY [facility] Last Admin: 02/02/18 09:19 Dose: 81 mg Atorvastatin Calcium (Lipitor) 20 mg PO HS [facility] Last Admin: 02/01/18 21:04 Dose: 20 mg Clobetasol Propionate (Temovate Cream) 1 applic TOP BID [facility] Last Admin: 02/02/18 09:18 Dose: 1 applic Docusate Sodium (Colace) 100 mg PO BID [facility] Last Admin: 02/02/18 09:19 Dose: 100 mg Enalapril Maleate (Vasotec) 10 mg PO DAILY [facility] Last Admin: 02/02/18 09:20 Dose: 10 mg Enoxaparin Sodium (Lovenox) 40 mg SC DAILY [facility]; Protocol Last Admin: 02/02/18 09:18 Dose: 40 mg Furosemide (Lasix) 40 mg IVP DAILY [facility] Last Admin: 02/02/18 09:19 Dose: 40 mg Cefazolin Sodium 1 gm/ Sodium (Chloride) 100 mls @ 100 mls/hr IVPB Q8@0600,1400,2200 [facility]; Protocol Last Admin: 02/02/18 05:17 Dose: 100 mls/hr Methylprednisolone (Solu-Medrol) 30 mg IVP DAILY [facility] Last Admin: 02/02/18 09:18 Dose: 30 mg Metoprolol Tartrate (Lopressor) 25 mg PO Q12 [facility] Last Admin: 02/02/18 09:20 Dose: 25 mg Pantoprazole Sodium (Protonix Ec Tab) 40 mg PO DAILY [facility] Last Admin: 02/02/18 09:20 Dose: 40 mg Pyridostigmine [place] (Mestinon Tab) 30 mg PO TID [facility] Last Admin: 02/02/18 09:20 Dose: 30 mg - Labs Labs: 02/02/18 04:20 02/02/18 04:20 PT 12.5 Seconds (9.8-13.1) 01/27/18 10:57 INR 1.1 01/27/18 10:57 APTT 35.0 Seconds (25.6-37.1) 01/27/18 10:57 - GI/Abdominal Exam Additional comments: soft, NT, mildly distended, BS+, no rebound, no guarding Assessment and Plan - Assessment and Plan (Free Text) Plan: - No general surgery intervention at present time - Continue care as per medical and GI teams - General surgery will sign off - Please re-consult as need
--- NOTE | 2018-02-02 08:08 | CP.PCM.PN ---
Subjective - Date & Time of Evaluation Date of Evaluation: 02/02/18 Time of Evaluation: 08:05 - Subjective Subjective: GI Note for Dr. Monge 87M seen and examined at bedside. Patient states no change, he is tolerating liquid diet, he has passing gas, and pain is the same. Objective - Vital Signs/Intake and Output Vital Signs (last 24 hours): Temp Pulse Resp BP Pulse Ox 97.7 F 57 L 18 127/64 93 L 02/02/18 04:59 02/02/18 04:59 02/02/18 04:59 02/02/18 04:59 02/02/18 04:59 - Medications Medications: Current Medications Albuterol (Ventolin Hfa 90 Mcg/Actuation (8 G)) 1 puff INH RQ6 PRN PRN Reason: Shortness of Breath Albuterol Sulfate (Albuterol 0.042% Inhal Olivia (1.25mg/3ml) Ud) 1.25 mg INH RQ4 [facility] Last Admin: 02/02/18 07:54 Dose: 1.25 mg Allopurinol (Zyloprim) 300 mg PO DAILY [facility] Last Admin: 02/01/18 09:19 Dose: 300 mg Amlodipine Besylate (Norvasc) 10 mg PO DAILY [facility] Last Admin: 02/01/18 09:20 Dose: 10 mg Aspirin (Ecotrin) 81 mg PO DAILY [facility] Last Admin: 02/01/18 09:17 Dose: 81 mg Atorvastatin Calcium (Lipitor) 20 mg PO HS [facility] Last Admin: 02/01/18 21:04 Dose: 20 mg Clobetasol Propionate (Temovate Cream) 1 applic TOP BID [facility] Last Admin: 02/01/18 16:12 Dose: 1 applic Docusate Sodium (Colace) 100 mg PO BID [facility] Last Admin: 02/01/18 16:12 Dose: 100 mg Enalapril Maleate (Vasotec) 10 mg PO DAILY [facility] Enoxaparin Sodium (Lovenox) 40 mg SC DAILY [facility]; Protocol Last Admin: 02/01/18 09:18 Dose: 40 mg Furosemide (Lasix) 40 mg IVP DAILY [facility] Last Admin: 02/01/18 09:17 Dose: 40 mg Cefazolin Sodium 1 gm/ Sodium (Chloride) 100 mls @ 100 mls/hr IVPB Q8@0600,1400,2200 [facility]; Protocol Last Admin: 02/02/18 05:17 Dose: 100 mls/hr Methylprednisolone (Solu-Medrol) 30 mg IVP Q12 [facility] Last Admin: 02/01/18 21:05 Dose: 30 mg Metoprolol Tartrate (Lopressor) 25 mg PO Q12 [facility] Last Admin: 02/01/18 21:04 Dose: 25 mg Pantoprazole Sodium (Protonix Ec Tab) 40 mg PO DAILY [facility] Last Admin: 02/01/18 09:21 Dose: 40 mg Pyridostigmine [place] (Mestinon Tab) 30 mg PO TID [facility] Last Admin: 02/01/18 16:11 Dose: 30 mg - Labs Labs: 02/02/18 04:20 02/02/18 04:20 PT 12.5 Seconds (9.8-13.1) 01/27/18 10:57 INR 1.1 01/27/18 10:57 APTT 35.0 Seconds (25.6-37.1) 01/27/18 10:57 - Constitutional Appears: Non-toxic, No Acute Distress - Respiratory Exam Respiratory Exam: Clear to Ausculation Bilateral, NORMAL BREATHING PATTERN - Cardiovascular Exam Cardiovascular Exam: REGULAR RHYTHM, +S1, +S2 - GI/Abdominal Exam GI & Abdominal Exam: Distended, Soft, Tenderness. absent: Firm, Guarding, Rigid, Rebound Additional comments: abdominal more distended and more full - Extremities Exam Extremities Exam: absent: Pedal Edema, Tenderness - Neurological Exam Neurological Exam: Alert, Awake - Skin Skin Exam: Dry, Intact, Normal Color, Warm Assessment and Plan - Assessment and Plan (Free Text) Assessment: 87M with colonic ileus Plan: - patient to receive KUB this AM Further recs discuss with Dr. Saleem Means, PGY3
[2018-02-02] MEDS ORDERED: methylPREDNISolone 30 MG in Sodium Chloride 0.9% 50 ML IVPB SCH (09:00)
[2018-02-02] MEDS: MethylPREDNISolone 40 mg Vial IVP SCH (09:18)
[2018-02-02] MEDS: Enoxaparin 40 mg Syringe SC SCH (09:18)
[2018-02-02] MEDS: Pantoprazole 40 mg EC Tab PO SCH (09:20)
--- NOTE | 2018-02-02 10:41 | CP.PCM.PN ---
Subjective - Date & Time of Evaluation Date of Evaluation: 02/02/18 Time of Evaluation: 10:39 - Subjective Subjective: patient sitting on the chair out of bed Patient feeling good no nausea no vomiting no chest pain Objective - Vital Signs/Intake and Output Vital Signs (last 24 hours): Temp Pulse Resp BP Pulse Ox 97.7 F 73 18 137/71 93 L 02/02/18 08:00 02/02/18 08:00 02/02/18 08:00 02/02/18 09:19 02/02/18 08:00 - Medications Medications: Current Medications Albuterol (Ventolin Hfa 90 Mcg/Actuation (8 G)) 1 puff INH RQ6 PRN PRN Reason: Shortness of Breath Albuterol Sulfate (Albuterol 0.042% Inhal Olivia (1.25mg/3ml) Ud) 1.25 mg INH RQ4 [facility] Last Admin: 02/02/18 07:54 Dose: 1.25 mg Allopurinol (Zyloprim) 300 mg PO DAILY [facility] Last Admin: 02/02/18 09:20 Dose: 300 mg Amlodipine Besylate (Norvasc) 10 mg PO DAILY [facility] Last Admin: 02/02/18 09:20 Dose: 10 mg Aspirin (Ecotrin) 81 mg PO DAILY [facility] Last Admin: 02/02/18 09:19 Dose: 81 mg Atorvastatin Calcium (Lipitor) 20 mg PO HS [facility] Last Admin: 02/01/18 21:04 Dose: 20 mg Clobetasol Propionate (Temovate Cream) 1 applic TOP BID [facility] Last Admin: 02/02/18 09:18 Dose: 1 applic Docusate Sodium (Colace) 100 mg PO BID [facility] Last Admin: 02/02/18 09:19 Dose: 100 mg Enalapril Maleate (Vasotec) 10 mg PO DAILY [facility] Last Admin: 02/02/18 09:20 Dose: 10 mg Enoxaparin Sodium (Lovenox) 40 mg SC DAILY [facility]; Protocol Last Admin: 02/02/18 09:18 Dose: 40 mg Furosemide (Lasix) 40 mg IVP DAILY [facility] Last Admin: 02/02/18 09:19 Dose: 40 mg Cefazolin Sodium 1 gm/ Sodium (Chloride) 100 mls @ 100 mls/hr IVPB Q8@0600,1400,2200 [facility]; Protocol Last Admin: 02/02/18 05:17 Dose: 100 mls/hr Methylprednisolone (Solu-Medrol) 30 mg IVP DAILY [facility] Last Admin: 02/02/18 09:18 Dose: 30 mg Metoprolol Tartrate (Lopressor) 25 mg PO Q12 [facility] Last Admin: 02/02/18 09:20 Dose: 25 mg Pantoprazole Sodium (Protonix Ec Tab) 40 mg PO DAILY [facility] Last Admin: 02/02/18 09:20 Dose: 40 mg Pyridostigmine [place] (Mestinon Tab) 30 mg PO TID [facility] Last Admin: 02/02/18 09:20 Dose: 30 mg - Labs Labs: 02/02/18 04:20 02/02/18 04:20 PT 12.5 Seconds (9.8-13.1) 01/27/18 10:57 INR 1.1 01/27/18 10:57 APTT 35.0 Seconds (25.6-37.1) 01/27/18 10:57 - Constitutional Appears: No Acute Distress - Eye Exam Eye Exam: Conjunctival injection - ENT Exam ENT Exam: Mucous Membranes Moist - Neck Exam Neck Exam: absent: Lymphadenopathy - Respiratory Exam Respiratory Exam: NORMAL BREATHING PATTERN. absent: Chest Wall Tenderness - Cardiovascular Exam Cardiovascular Exam: REGULAR RHYTHM. absent: Gallop, JVD, Rubs - GI/Abdominal Exam GI & Abdominal Exam: Soft, Normal Bowel Sounds - Extremities Exam Extremities Exam: absent: Calf Tenderness - Back Exam Back Exam: absent: CVA tenderness (L), CVA tenderness (R) - Neurological Exam Neurological Exam: Alert - Psychiatric Exam Psychiatric exam: Normal Affect - Skin Skin Exam: absent: Cyanosis Assessment and Plan - Assessment and Plan (Free Text) Assessment: hyponatremia and hypokalemia has been corrected Kidney function stable Cellulitis appeared to be improving As per primary team
--- NOTE | 2018-02-02 10:49 | CP.PCM.PN ---
Subjective - Date & Time of Evaluation Date of Evaluation: 02/02/18 Time of Evaluation: 10:47 - Subjective Subjective: Seen ambulating with physical therapy this morning. Appears to be much more comfortable and not dyspneic while ambulating with a walker. He has been passing flatus and tolerating a liquid diet. Vital signs have remained stable and he has been well oxygenated. Passing watery stool, rectal tube is out. Abdomen is still mildly distended but soft and non-tender. Breath sounds are diminished bilaterally w/o audible wheeze. Occasional sonorous rhonchi in lower lobes. Rare dry basal rales. Heart sounds are distant, rhythm regular. Continue present medical regimen. Solumedrol has been decreased, to be d/c'd soon. Objective - Vital Signs/Intake and Output Vital Signs (last 24 hours): Temp Pulse Resp BP Pulse Ox 97.7 F 73 18 137/71 93 L 02/02/18 08:00 02/02/18 08:00 02/02/18 08:00 02/02/18 09:19 02/02/18 08:00 - Medications Medications: Current Medications Albuterol (Ventolin Hfa 90 Mcg/Actuation (8 G)) 1 puff INH RQ6 PRN PRN Reason: Shortness of Breath Albuterol Sulfate (Albuterol 0.042% Inhal Olivia (1.25mg/3ml) Ud) 1.25 mg INH RQ4 [facility] Last Admin: 02/02/18 07:54 Dose: 1.25 mg Allopurinol (Zyloprim) 300 mg PO DAILY [facility] Last Admin: 02/02/18 09:20 Dose: 300 mg Amlodipine Besylate (Norvasc) 10 mg PO DAILY [facility] Last Admin: 02/02/18 09:20 Dose: 10 mg Aspirin (Ecotrin) 81 mg PO DAILY [facility] Last Admin: 02/02/18 09:19 Dose: 81 mg Atorvastatin Calcium (Lipitor) 20 mg PO HS [facility] Last Admin: 02/01/18 21:04 Dose: 20 mg Clobetasol Propionate (Temovate Cream) 1 applic TOP BID [facility] Last Admin: 02/02/18 09:18 Dose: 1 applic Docusate Sodium (Colace) 100 mg PO BID [facility] Last Admin: 02/02/18 09:19 Dose: 100 mg Enalapril Maleate (Vasotec) 10 mg PO DAILY [facility] Last Admin: 02/02/18 09:20 Dose: 10 mg Enoxaparin Sodium (Lovenox) 40 mg SC DAILY [facility]; Protocol Last Admin: 02/02/18 09:18 Dose: 40 mg Furosemide (Lasix) 40 mg IVP DAILY [facility] Last Admin: 02/02/18 09:19 Dose: 40 mg Cefazolin Sodium 1 gm/ Sodium (Chloride) 100 mls @ 100 mls/hr IVPB Q8@0600,1400,2200 [facility]; Protocol Last Admin: 02/02/18 05:17 Dose: 100 mls/hr Methylprednisolone (Solu-Medrol) 30 mg IVP DAILY [facility] Last Admin: 02/02/18 09:18 Dose: 30 mg Metoprolol Tartrate (Lopressor) 25 mg PO Q12 [facility] Last Admin: 02/02/18 09:20 Dose: 25 mg Pantoprazole Sodium (Protonix Ec Tab) 40 mg PO DAILY [facility] Last Admin: 02/02/18 09:20 Dose: 40 mg Pyridostigmine [place] (Mestinon Tab) 30 mg PO TID [facility] Last Admin: 02/02/18 09:20 Dose: 30 mg - Labs Labs: 02/02/18 04:20 02/02/18 04:20 PT 12.5 Seconds (9.8-13.1) 01/27/18 10:57 INR 1.1 01/27/18 10:57 APTT 35.0 Seconds (25.6-37.1) 01/27/18 10:57 Assessment and Plan (1) COPD with exacerbation Status: Acute (2) Hyponatremia Status: Resolved (3) Hypoxemia Status: Resolved (4) Leg edema Status: Chronic (5) Pleural effusion due to congestive heart failure Status: Acute (6) Atelectasis, bilateral Status: Acute
--- NOTE | 2018-02-02 14:34 | RAD ---
Date of service: 02/02/2018 HISTORY: Abdominal distention COMPARISON: 01/31/2018. FINDINGS: BOWEL: There is redemonstration of severe gaseous distension of:. The small bowel loops are decompressed. BONES: Normal. OTHER FINDINGS: None. IMPRESSION: Little interval change in severe gaseous distension of the colon.
--- NOTE | 2018-02-02 20:17 | CP.PCM.PN ---
Subjective - Date & Time of Evaluation Date of Evaluation: 02/02/18 Time of Evaluation: 22:22 - Subjective Subjective: Above noted Objective - Vital Signs/Intake and Output Vital Signs (last 24 hours): Temp Pulse Resp BP Pulse Ox 97.9 F 70 17 145/66 91 L 02/02/18 15:51 02/02/18 15:51 02/02/18 15:51 02/02/18 15:51 02/02/18 15:51 - Medications Medications: Current Medications Albuterol (Ventolin Hfa 90 Mcg/Actuation (8 G)) 1 puff INH RQ6 PRN PRN Reason: Shortness of Breath Albuterol Sulfate (Albuterol 0.042% Inhal Olivia (1.25mg/3ml) Ud) 1.25 mg INH RQ4 [facility] Last Admin: 02/02/18 19:16 Dose: 1.25 mg Allopurinol (Zyloprim) 300 mg PO DAILY [facility] Last Admin: 02/02/18 09:20 Dose: 300 mg Amlodipine Besylate (Norvasc) 10 mg PO DAILY [facility] Last Admin: 02/02/18 09:20 Dose: 10 mg Aspirin (Ecotrin) 81 mg PO DAILY [facility] Last Admin: 02/02/18 09:19 Dose: 81 mg Atorvastatin Calcium (Lipitor) 20 mg PO HS [facility] Last Admin: 02/01/18 21:04 Dose: 20 mg Clobetasol Propionate (Temovate Cream) 1 applic TOP BID [facility] Last Admin: 02/02/18 17:59 Dose: 1 applic Docusate Sodium (Colace) 100 mg PO BID [facility] Last Admin: 02/02/18 17:59 Dose: 100 mg Enalapril Maleate (Vasotec) 10 mg PO DAILY [facility] Last Admin: 02/02/18 09:20 Dose: 10 mg Enoxaparin Sodium (Lovenox) 40 mg SC DAILY [facility]; Protocol Last Admin: 02/02/18 09:18 Dose: 40 mg Furosemide (Lasix) 40 mg IVP DAILY [facility] Last Admin: 02/02/18 09:19 Dose: 40 mg Cefazolin Sodium 1 gm/ Sodium (Chloride) 100 mls @ 100 mls/hr IVPB Q8@0600,1400,2200 [facility]; Protocol Last Admin: 02/02/18 13:36 Dose: 100 mls/hr Methylprednisolone (Solu-Medrol) 30 mg IVP DAILY [facility] Last Admin: 02/02/18 09:18 Dose: 30 mg Metoprolol Tartrate (Lopressor) 25 mg PO Q12 [facility] Last Admin: 02/02/18 09:20 Dose: 25 mg Pantoprazole Sodium (Protonix Ec Tab) 40 mg PO DAILY [facility] Last Admin: 02/02/18 09:20 Dose: 40 mg Pyridostigmine [place] (Mestinon Tab) 30 mg PO TID [facility] Last Admin: 02/02/18 18:00 Dose: 30 mg - Labs Labs: 02/02/18 04:20 02/02/18 04:20 PT 12.5 Seconds (9.8-13.1) 01/27/18 10:57 INR 1.1 01/27/18 10:57 APTT 35.0 Seconds (25.6-37.1) 01/27/18 10:57 - Respiratory Exam Respiratory Exam: NORMAL BREATHING PATTERN - Cardiovascular Exam Cardiovascular Exam: REGULAR RHYTHM - GI/Abdominal Exam GI & Abdominal Exam: Normal Bowel Sounds Assessment and Plan - Assessment and Plan (Free Text) Assessment: Distended abdomen CT scan/KUB colonic illeus Improving As per Surgery GI HX Low back surgery (Severe Spinal Stenosis) Post operative illeus SOB COPD Smoker Pleural effusion steroids O2 CHF S/P TAVR Diuretics Pulmonary Cardiology Bilat Lower ext edema/ cellulitis ID ABX podiatry Hypokalemia 2 to GI?? K+ suppl Hyponatremia 2 to fluid overload Hyperkalemia etiol?? Hold ARB Kaexylate Urine lytes Nephrology consult HTN Prediabetes
[2018-02-03] MEDS: Albuterol 0.042% Inhal Sol (1.25 mg/3 mL) UD INH SCH ×5 (04:45→18:59)
[2018-02-03] MEDS: ceFAZolin 1 GM in Sodium Chloride 0.9% 100 ML IVPB SCH ×3 (06:14→21:39)
--- NOTE | 2018-02-03 08:47 | CP.PCM.PN ---
Subjective - Date & Time of Evaluation Date of Evaluation: 02/03/18 Time of Evaluation: 08:47 - Subjective Subjective: Seated in a bedside chair. Vital signs remain stable, he continues to be afebrile. Oxygenation has been satisfactory. No complaints of dyspnea or cough, No dullness on chest percussion. Breath sounds are diminished equally in both lungs. Few dry rales are heard in the lower lobes. No audible wheezing or bronchial breathing, Heart sounds remain distant and regular with PHBs. Abdomen appears more tense/distended this morning. Bowel sounds are present. Dependant edema has decreased nicely, cellulitic area is resolving slowly in both legs. Will discontinue methylprednisolone. Continue albuterol via neb QID. Objective - Vital Signs/Intake and Output Vital Signs (last 24 hours): Temp Pulse Resp BP Pulse Ox 98.5 F 64 18 133/66 94 L 02/03/18 05:12 02/03/18 05:12 02/03/18 05:12 02/03/18 05:12 02/03/18 05:12 - Medications Medications: Current Medications Albuterol (Ventolin Hfa 90 Mcg/Actuation (8 G)) 1 puff INH RQ6 PRN PRN Reason: Shortness of Breath Albuterol Sulfate (Albuterol 0.042% Inhal Olivia (1.25mg/3ml) Ud) 1.25 mg INH RQID [facility] Allopurinol (Zyloprim) 300 mg PO DAILY [facility] Last Admin: 02/02/18 09:20 Dose: 300 mg Amlodipine Besylate (Norvasc) 10 mg PO DAILY [facility] Last Admin: 02/02/18 09:20 Dose: 10 mg Aspirin (Ecotrin) 81 mg PO DAILY [facility] Last Admin: 02/02/18 09:19 Dose: 81 mg Atorvastatin Calcium (Lipitor) 20 mg PO HS [facility] Last Admin: 02/02/18 22:04 Dose: 20 mg Clobetasol Propionate (Temovate Cream) 1 applic TOP BID [facility] Last Admin: 02/02/18 17:59 Dose: 1 applic Docusate Sodium (Colace) 100 mg PO BID [facility] Last Admin: 02/02/18 17:59 Dose: 100 mg Enalapril Maleate (Vasotec) 10 mg PO DAILY [facility] Last Admin: 02/02/18 09:20 Dose: 10 mg Enoxaparin Sodium (Lovenox) 40 mg SC DAILY [facility]; Protocol Last Admin: 02/02/18 09:18 Dose: 40 mg Furosemide (Lasix) 40 mg IVP DAILY [facility] Last Admin: 02/02/18 09:19 Dose: 40 mg Cefazolin Sodium 1 gm/ Sodium (Chloride) 100 mls @ 100 mls/hr IVPB Q8@0600,1400,2200 [facility]; Protocol Last Admin: 02/03/18 06:14 Dose: 100 mls/hr Methylprednisolone (Solu-Medrol) 30 mg IVP DAILY [facility] Last Admin: 02/02/18 09:18 Dose: 30 mg Metoprolol Tartrate (Lopressor) 25 mg PO Q12 [facility] Last Admin: 02/02/18 22:03 Dose: 25 mg Pantoprazole Sodium (Protonix Ec Tab) 40 mg PO DAILY [facility] Last Admin: 02/02/18 09:20 Dose: 40 mg Pyridostigmine [place] (Mestinon Tab) 30 mg PO TID [facility] Last Admin: 02/02/18 18:00 Dose: 30 mg - Labs Labs: 02/02/18 04:20 02/02/18 04:20 PT 12.5 Seconds (9.8-13.1) 01/27/18 10:57 INR 1.1 01/27/18 10:57 APTT 35.0 Seconds (25.6-37.1) 01/27/18 10:57 Assessment and Plan (1) COPD with exacerbation Status: Acute (2) Leg edema Status: Chronic (3) Pleural effusion due to congestive heart failure Status: Acute (4) Atelectasis, bilateral Status: Acute
[2018-02-03] MEDS: Enoxaparin 40 mg Syringe SC SCH (09:20)
[2018-02-03] MEDS: Pantoprazole 40 mg EC Tab PO SCH (09:28)
[2018-02-03] MEDS: MethylPREDNISolone 40 mg Vial IVP SCH (09:28)
--- NOTE | 2018-02-03 09:48 | CP.PCM.PN ---
Subjective - Date & Time of Evaluation Date of Evaluation: 02/03/18 Time of Evaluation: 09:47 - Subjective Subjective: Podiatry progress Note for Dr. Kirk 87M with PMH CHF, HTN, HLD, Bronchitis, COPD (noncompliant with home o2), gout who was originally admitted 01/27 for persistent cough and SOB seen at bedside for b/l LE redness. Patient denies any pain to either leg. He denies any further pedal complaints at this time. He is AAO x 3 and NAD, resting comfortably in bed. Objective - Vital Signs/Intake and Output Vital Signs (last 24 hours): Temp Pulse Resp BP Pulse Ox 98.5 F 75 18 143/75 94 L 02/03/18 05:12 02/03/18 09:27 02/03/18 05:12 02/03/18 09:27 02/03/18 05:12 - Medications Medications: Current Medications Albuterol (Ventolin Hfa 90 Mcg/Actuation (8 G)) 1 puff INH RQ6 PRN PRN Reason: Shortness of Breath Albuterol Sulfate (Albuterol 0.042% Inhal [place] (1.25mg/3ml) Ud) 1.25 mg INH RQID [facility] Allopurinol (Zyloprim) 300 mg PO DAILY [facility] Last Admin: 02/03/18 09:35 Dose: 300 mg Amlodipine Besylate (Norvasc) 10 mg PO DAILY [facility] Last Admin: 02/03/18 09:27 Dose: 10 mg Aspirin (Ecotrin) 81 mg PO DAILY [facility] Last Admin: 02/03/18 09:17 Dose: 81 mg Atorvastatin Calcium (Lipitor) 20 mg PO HS [facility] Last Admin: 02/02/18 22:04 Dose: 20 mg Clobetasol Propionate (Temovate Cream) 1 applic TOP BID [facility] Last Admin: 02/03/18 09:35 Dose: 1 applic Docusate Sodium (Colace) 100 mg PO BID [facility] Last Admin: 02/03/18 09:16 Dose: 100 mg Enalapril Maleate (Vasotec) 10 mg PO DAILY [facility] Last Admin: 02/03/18 09:35 Dose: 10 mg Enoxaparin Sodium (Lovenox) 40 mg SC DAILY [facility]; Protocol Last Admin: 02/03/18 09:20 Dose: 40 mg Furosemide (Lasix) 40 mg IVP DAILY [facility] Last Admin: 02/03/18 09:18 Dose: 40 mg Cefazolin Sodium 1 gm/ Sodium (Chloride) 100 mls @ 100 mls/hr IVPB Q8@0600,1400,2200 [facility]; Protocol Last Admin: 02/03/18 06:14 Dose: 100 mls/hr Methylprednisolone (Solu-Medrol) 30 mg IVP DAILY [facility] Last Admin: 02/03/18 09:28 Dose: 30 mg Metoprolol Tartrate (Lopressor) 25 mg PO Q12 [facility] Last Admin: 02/03/18 09:19 Dose: 25 mg Pantoprazole Sodium (Protonix Ec Tab) 40 mg PO DAILY [facility] Last Admin: 02/03/18 09:28 Dose: 40 mg Pyridostigmine [place] (Mestinon Tab) 30 mg PO TID [facility] Last Admin: 02/03/18 09:26 Dose: 30 mg - Labs Labs: 02/02/18 04:20 02/02/18 04:20 PT 12.5 Seconds (9.8-13.1) 01/27/18 10:57 INR 1.1 01/27/18 10:57 APTT 35.0 Seconds (25.6-37.1) 01/27/18 10:57 - Constitutional Appears: Well, Non-toxic, No Acute Distress - Head Exam Head Exam: ATRAUMATIC - Extremities Exam Additional comments: B/l LE focused exam: Vasc: DP/PT pulses palpable 1/4 b/l secondary to 1+ pitting b/l. CFT < 3 seconds to all digits b/l. Skin temperature gradient warm to warm from proximal to distal. No increased warmth noted at sites of erythema. Neuro: Epicritic and protective sensation grossly intact b/l Derm: B/l dark erythematous changes to skin noted to anteromedial shins. Color change appears to be more attributable to probable venous congestion that to cellulitic changes. No open lesions, wounds, maceration, xerosis noted to b/l LE MSK: No POP to erythematous site. ROM WNL at all major joints. MMT 4/5 in all major muscle grouup - Neurological Exam Neurological Exam: Alert, Awake - Psychiatric Exam Psychiatric exam: Normal Affect - Skin Skin Exam: Normal Color Assessment and Plan - Assessment and Plan (Free Text) Assessment: 87M seen at bedside for b/l erythematous LE changes; resolving Plan: Patient seen and evaluated at bedside Plan discussed with Dr. Kirk Chart, labs and vitals reviewed; afebrile and absent leukocytosis Continue abx per ID No plan for surgical intervention at this time; stable for discharge from podiatry point of view. No dressings applied to LE at this time Podiatry will continue to follow while patient in house
--- NOTE | 2018-02-03 13:51 | CP.PCM.PN ---
Subjective - Date & Time of Evaluation Date of Evaluation: 02/03/18 Time of Evaluation: 07:00 - Subjective Subjective: cellulitis less no fever oob for colonoscopy am Objective - Vital Signs/Intake and Output Vital Signs (last 24 hours): Temp Pulse Resp BP Pulse Ox 98.5 F 75 18 143/75 94 L 02/03/18 05:12 02/03/18 09:27 02/03/18 05:12 02/03/18 09:27 02/03/18 05:12 - Medications Medications: Current Medications Albuterol (Ventolin Hfa 90 Mcg/Actuation (8 G)) 1 puff INH RQ6 PRN PRN Reason: Shortness of Breath Albuterol Sulfate (Albuterol 0.042% Inhal Olivia (1.25mg/3ml) Ud) 1.25 mg INH RQID [facility] Last Admin: 02/03/18 12:11 Dose: 1.25 mg Allopurinol (Zyloprim) 300 mg PO DAILY [facility] [place] Last Admin: 02/03/18 09:35 Dose: 300 mg Amlodipine Besylate (Norvasc) 10 mg PO DAILY [facility] [place] Last Admin: 02/03/18 09:27 Dose: 10 mg Aspirin (Ecotrin) 81 mg PO DAILY [facility] [place] Last Admin: 02/03/18 09:17 Dose: 81 mg Atorvastatin Calcium (Lipitor) 20 mg PO HS [facility] [place] Last Admin: 02/02/18 22:04 Dose: 20 mg Clobetasol Propionate (Temovate Cream) 1 applic TOP BID [facility] [place] Last Admin: 02/03/18 09:35 Dose: 1 applic Docusate Sodium (Colace) 100 mg PO BID [facility] [place] Last Admin: 02/03/18 09:16 Dose: 100 mg Enalapril Maleate (Vasotec) 10 mg PO DAILY [facility] [place] Last Admin: 02/03/18 09:35 Dose: 10 mg Enoxaparin Sodium (Lovenox) 40 mg SC DAILY [facility] [place]; Protocol Last Admin: 02/03/18 09:20 Dose: 40 mg Furosemide (Lasix) 40 mg IVP DAILY [facility] [place] Last Admin: 02/03/18 09:18 Dose: 40 mg Cefazolin Sodium 1 gm/ Sodium (Chloride) 100 mls @ 100 mls/hr IVPB Q8@060 0,1400,2200 [facility] [place]; Protocol Last Admin: 11/07/18 06:14 Dose: 100 mls/hr Metoprolol Tartrate (Lopressor) 25 mg PO Q12 [facility] [place] Last Admin: 02/03/18 09:19 Dose: 25 mg Pantoprazole Sodium (Protonix Ec Tab) 40 mg PO DAILY [facility] [place] Last Admin: 02/03/18 09:28 Dose: 40 mg Pyridostigmine [place] (Mestinon Tab) 30 mg PO TID [facility] [place] Last Admin: 02/03/18 09:26 Dose: 30 mg - Labs Labs: 02/02/18 04:20 02/02/18 04:20 PT 12.5 Seconds (9.8-13.1) 01/27/18 10:57 INR 1.1 01/27/18 10:57 APTT 35.0 Seconds (25.6-37.1) 01/27/18 10:57 - Constitutional Appears: Non-toxic, Chronically Ill - Head Exam Head Exam: NORMOCEPHALIC - Eye Exam Eye Exam: absent: Scleral icterus - ENT Exam ENT Exam: Mucous Membranes Dry - Neck Exam Neck Exam: absent: Lymphadenopathy - Respiratory Exam Respiratory Exam: Decreased Breath Sounds - Cardiovascular Exam Cardiovascular Exam: REGULAR RHYTHM - GI/Abdominal Exam GI & Abdominal Exam: Distended - Rectal Exam Rectal Exam: Deferred - Exam Exam: NORMAL INSPECTION - Extremities Exam Extremities Exam: absent: Pedal Edema - Back Exam Back Exam: absent: CVA tenderness (L), CVA tenderness (R) Assessment and Plan (1) Atrial fibrillation Status: Acute (2) CHF (congestive heart failure) Status: Acute (3) COPD (chronic obstructive pulmonary disease) Status: Acute (4) Leg pain Status: Acute (5) Leukocytosis Status: Acute (6) Aortic stenosis Status: Chronic (7) 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
--- NOTE | 2018-02-03 17:56 | CP.PCM.PN ---
Subjective - Date & Time of Evaluation Date of Evaluation: 02/03/18 Time of Evaluation: 22:22 - Subjective Subjective: Above noted Objective - Vital Signs/Intake and Output Vital Signs (last 24 hours): Temp Pulse Resp BP Pulse Ox 97.8 F 79 20 126/65 98 02/03/18 16:14 02/03/18 16:14 02/03/18 16:14 02/03/18 16:14 02/03/18 16:14 - Medications Medications: Current Medications Albuterol (Ventolin Hfa 90 Mcg/Actuation (8 G)) 1 puff INH RQ6 PRN PRN Reason: Shortness of Breath Albuterol Sulfate (Albuterol 0.042% Inhal Olivia (1.25mg/3ml) Ud) 1.25 mg INH RQID [facility] Last Admin: 02/03/18 15:28 Dose: 1.25 mg Allopurinol (Zyloprim) 300 mg PO DAILY [facility] Last Admin: 02/03/18 09:35 Dose: 300 mg Amlodipine Besylate (Norvasc) 10 mg PO DAILY [facility] Last Admin: 02/03/18 09:27 Dose: 10 mg Aspirin (Ecotrin) 81 mg PO DAILY [facility] Last Admin: 02/03/18 09:17 Dose: 81 mg Atorvastatin Calcium (Lipitor) 20 mg PO HS [facility] Last Admin: 02/02/18 22:04 Dose: 20 mg Clobetasol Propionate (Temovate Cream) 1 applic TOP BID [facility] Last Admin: 02/03/18 17:38 Dose: 1 applic Docusate Sodium (Colace) 100 mg PO BID [facility] Last Admin: 02/03/18 17:35 Dose: 100 mg Enalapril Maleate (Vasotec) 10 mg PO DAILY [facility] Last Admin: 02/03/18 09:35 Dose: 10 mg Enoxaparin Sodium (Lovenox) 40 mg SC DAILY [facility]; Protocol Last Admin: 02/03/18 09:20 Dose: 40 mg Furosemide (Lasix) 40 mg IVP DAILY [facility] Last Admin: 02/03/18 09:18 Dose: 40 mg Cefazolin Sodium 1 gm/ Sodium (Chloride) 100 mls @ 100 mls/hr IVPB Q8@0600,1400,2200 [facility]; Protocol Last Admin: 02/03/18 14:55 Dose: 100 mls/hr Metoprolol Tartrate (Lopressor) 25 mg PO Q12 [facility] Last Admin: 02/03/18 09:19 Dose: 25 mg Pantoprazole Sodium (Protonix Ec Tab) 40 mg PO DAILY [facility] Last Admin: 02/03/18 09:28 Dose: 40 mg Pyridostigmine [place] (Mestinon Tab) 30 mg PO TID [facility] Last Admin: 02/03/18 17:38 Dose: 30 mg - Labs Labs: 02/02/18 04:20 02/02/18 04:20 PT 12.5 Seconds (9.8-13.1) 01/27/18 10:57 INR 1.1 01/27/18 10:57 APTT 35.0 Seconds (25.6-37.1) 01/27/18 10:57 - Respiratory Exam Respiratory Exam: NORMAL BREATHING PATTERN - Cardiovascular Exam Cardiovascular Exam: REGULAR RHYTHM - GI/Abdominal Exam GI & Abdominal Exam: Normal Bowel Sounds Assessment and Plan - Assessment and Plan (Free Text) Assessment: Distended abdomen CT scan/KUB colonic illeus Improving Colonoscopy in AM As per Surgery GI HX Low back surgery (Severe Spinal Stenosis) Post operative illeus SOB COPD Smoker Pleural effusion steroids O2 CHF S/P TAVR Diuretics Pulmonary Cardiology Bilat Lower ext edema/ cellulitis ID ABX podiatry Hypokalemia 2 to GI?? K+ suppl Hyponatremia 2 to fluid overload Hyperkalemia etiol?? Hold ARB Kaexylate Urine lytes Nephrology consult HTN Prediabetes
--- NOTE | 2018-02-03 18:11 | CP.PCM.PN ---
Subjective - Date & Time of Evaluation Date of Evaluation: 02/03/18 Time of Evaluation: 18:09 - Subjective Subjective: Patient remains distended though in no pain. Objective - Vital Signs/Intake and Output Vital Signs (last 24 hours): Temp Pulse Resp BP Pulse Ox 97.8 F 79 20 126/65 98 02/03/18 16:14 02/03/18 16:14 02/03/18 16:14 02/03/18 16:14 02/03/18 16:14 - Medications Medications: Current Medications Albuterol (Ventolin Hfa 90 Mcg/Actuation (8 G)) 1 puff INH RQ6 PRN PRN Reason: Shortness of Breath Albuterol Sulfate (Albuterol 0.042% Inhal Olivia (1.25mg/3ml) Ud) 1.25 mg INH RQID [facility] Last Admin: 02/03/18 15:28 Dose: 1.25 mg Allopurinol (Zyloprim) 300 mg PO DAILY [facility] Last Admin: 02/03/18 09:35 Dose: 300 mg Amlodipine Besylate (Norvasc) 10 mg PO DAILY [facility] Last Admin: 02/03/18 09:27 Dose: 10 mg Aspirin (Ecotrin) 81 mg PO DAILY [facility] Last Admin: 02/03/18 09:17 Dose: 81 mg Atorvastatin Calcium (Lipitor) 20 mg PO HS [facility] Last Admin: 02/02/18 22:04 Dose: 20 mg Clobetasol Propionate (Temovate Cream) 1 applic TOP BID [facility] Last Admin: 02/03/18 17:38 Dose: 1 applic Docusate Sodium (Colace) 100 mg PO BID [facility] Last Admin: 02/03/18 17:35 Dose: 100 mg Enalapril Maleate (Vasotec) 10 mg PO DAILY [facility] Last Admin: 02/03/18 09:35 Dose: 10 mg Enoxaparin Sodium (Lovenox) 40 mg SC DAILY [facility]; Protocol Last Admin: 02/03/18 09:20 Dose: 40 mg Furosemide (Lasix) 40 mg IVP DAILY [facility] Last Admin: 02/03/18 09:18 Dose: 40 mg Cefazolin Sodium 1 gm/ Sodium (Chloride) 100 mls @ 100 mls/hr IVPB Q8@0600,14 00,2200 [facility]; Protocol Last Admin: 02/03/18 14:55 Dose: 100 mls/hr Metoprolol Tartrate (Lopressor) 25 mg PO Q12 [facility] Last Admin: 02/03/18 09:19 Dose: 25 mg Pantoprazole Sodium (Protonix Ec Tab) 40 mg PO DAILY [facility] Last Admin: 02/03/18 09:28 Dose: 40 mg Pyridostigmine [place] (Mestinon Tab) 30 mg PO TID [facility] Last Admin: 02/03/18 17:38 Dose: 30 mg - Labs Labs: 02/02/18 04:20 02/02/18 04:20 PT 12.5 Seconds (9.8-13.1) 01/27/18 10:57 INR 1.1 01/27/18 10:57 APTT 35.0 Seconds (25.6-37.1) 01/27/18 10:57 - Head Exam Head Exam: ATRAUMATIC - Eye Exam Eye Exam: Normal appearance - ENT Exam ENT Exam: Normal Exam - Respiratory Exam Respiratory Exam: Clear to Ausculation Bilateral - Cardiovascular Exam Cardiovascular Exam: REGULAR RHYTHM - GI/Abdominal Exam GI & Abdominal Exam: Distended, Normal Bowel Sounds Assessment and Plan (1) Abdominal distention Assessment & Plan: Ongoing abdominal distention. Colonoscopy to r/o rectosigmoid lesion and/or decompression. Status: Acute
[2018-02-03] MEDS ORDERED: Lactated Ringer's 1,000 ML IV SCH (23:00)
[2018-02-04 05:44] LABS: HEMOGLOBIN 12.9 g/dL (12.0-18.0); MEAN CELL VOLUME 100.4 fl (80.0-94.0); MEAN CORPUSCULAR HEMOGLOBIN 32.9 pg (27.0-31.0); MEAN CORPUSCULAR HGB CONC 32.7 g/dL (33.0-37.0); RBC 3.93 Mil/uL (4.40-5.90); WHITE BLOOD COUNT 5.8 K/uL (4.8-10.8)
[2018-02-04 05:55] LABS: BLOOD UREA NITROGEN 17 mg/dl (9-20); CALCIUM 8.5 mg/dL (8.4-10.2); GFR NON-AFRICAN AMERICAN > 60
[2018-02-04] MEDS: ceFAZolin 1 GM in Sodium Chloride 0.9% 100 ML IVPB SCH ×3 (06:12→21:40)
[2018-02-04] MEDS ORDERED: ePHEDrine 50 mg/ml Inj ONE (07:17)
[2018-02-04] MEDS ORDERED: Phenylephrine 10 mg/ml Inj ONE (07:17)
[2018-02-04] MEDS ORDERED: Etomidate 20 mg/10ml Inj IV ONE (07:18)
[2018-02-04] MEDS: Albuterol 0.042% Inhal Sol (1.25 mg/3 mL) UD INH SCH ×4 (07:28→19:12)
[2018-02-04] MEDS ORDERED: Lactated Ringer's 500 ML IV ONE (08:12)
[2018-02-04] MEDS ORDERED: Midazolam 2 MG/2 ML VIAL ONE (08:24)
[2018-02-04] MEDS ORDERED: Propofol 10 mg/ml Inj (20 ML) ONE (08:24)
--- NOTE | 2018-02-04 09:18 | CP.PCM.PN ---
Subjective - Date & Time of Evaluation Date of Evaluation: 02/04/18 Time of Evaluation: :18 - Subjective Subjective: The patient has returned from colonoscopy. Awake and alert, in good spirits. Procedure note was reviewed. Abdomen is soft and no longer tympanitic. Bowel sounds are present, though slightly hypo. Respiratory status remains satisfactory. Breath sounds are diminished with scattered few rhonchi. Occasional dry rales are present in the bases posteriorly. No audible wheezing or bronchial breath sounds. Solumedrol was discontinued yesterday. Continue present aerosol regimen. Objective - Vital Signs/Intake and Output Vital Signs (last 24 hours): Temp Pulse Resp BP Pulse Ox 98.1 F 74 19 108/72 95 02/04/18 09:01 02/04/18 09:01 02/04/18 09:01 02/04/18 09:01 02/04/18 09:01 Intake and Output: 02/03/18 02/04/18 23:59 11:59 Intake Total 960 150 Balance 960 150 - Medications Medications: Current Medications Albuterol (Ventolin Hfa 90 Mcg/Actuation (8 G)) 1 puff INH RQ6 PRN PRN Reason: Shortness of Breath Albuterol Sulfate (Albuterol 0.042% Inhal Olivia (1.25mg/3ml) Ud) 1.25 mg INH RQID [facility] Last Admin: 02/04/18 07:28 Dose: 1.25 mg Allopurinol (Zyloprim) 300 mg PO DAILY [facility] Last Admin: 02/03/18 09:35 Dose: 300 mg Amlodipine Besylate (Norvasc) 10 mg PO DAILY [facility] Last Admin: 02/03/18 09:27 Dose: 10 mg Atorvastatin Calcium (Lipitor) 20 mg PO HS [facility] Last Admin: 02/03/18 21:40 Dose: 20 mg Clobetasol Propionate (Temovate Cream) 1 applic TOP BID [facility] Last Admin: 02/03/18 17:38 Dose: 1 applic Docusate Sodium (Colace) 100 mg PO BID [facility] Last Admin: 02/03/18 17:35 Dose: 100 mg Enalapril Maleate (Vasotec) 10 mg PO DAILY [facility] Last Admin: 02/03/18 09:35 Dose: 10 mg Enoxaparin Sodium (Lovenox) 40 mg SC DAILY [facility]; Protocol Last Admin: 02/03/18 09:20 Dose: 40 mg Furosemide (Lasix) 40 mg IVP DAILY [facility] Last Admin: 02/03/18 09:18 Dose: 40 mg Cefazolin Sodium 1 gm/ Sodium (Chloride) 100 mls @ 100 mls/hr IVPB Q8@0600,1400,2200 [facility]; Protocol Last Admin: 02/04/18 06:12 Dose: 100 mls/hr Lactated Ringer's (Lactated Ringer's) 1,000 mls @ 60 mls/hr IV .[id number] [facility] Metoprolol Tartrate (Lopressor) 25 mg PO Q12 [facility] Last Admin: 02/03/18 21:40 Dose: 25 mg Pantoprazole Sodium (Protonix Ec Tab) 40 mg PO DAILY [facility] Last Admin: 02/03/18 09:28 Dose: 40 mg Pyridostigmine [place] (Mestinon Tab) 30 mg PO TID [facility] Last Admin: 02/03/18 17:38 Dose: 30 mg - Labs Labs: 02/04/18 05:10 02/04/18 05:10 PT 12.5 Seconds (9.8-13.1) 01/27/18 10:57 INR 1.1 01/27/18 10:57 APTT 35.0 Seconds (25.6-37.1) 01/27/18 10:57 Assessment and Plan (1) COPD with exacerbation Status: Acute (2) Leg edema Status: Chronic (3) Pleural effusion due to congestive heart failure Status: Acute (4) Atelectasis, bilateral Status: Acute
--- NOTE | 2018-02-04 09:57 | CP.PCM.PN ---
Subjective - Date & Time of Evaluation Date of Evaluation: 02/04/18 Time of Evaluation: 09:54 - Subjective Subjective: GI Note for Dr. Monge 87M seen and examined at bedside. Patient s/p colonoscopy this AM with no signs of obstruction and no fecal bolus. Colon decompressed and abdomen significantly less distended and full. Objective - Vital Signs/Intake and Output Vital Signs (last 24 hours): Temp Pulse Resp BP Pulse Ox 98.1 F 74 19 108/72 95 02/04/18 09:01 02/04/18 09:01 02/04/18 09:01 02/04/18 09:01 02/04/18 09:01 Intake and Output: 02/04/18 02/04/18 06:59 18:59 Intake Total 150 Balance 150 - Medications Medications: Current Medications Albuterol (Ventolin Hfa 90 Mcg/Actuation (8 G)) 1 puff INH RQ6 PRN PRN Reason: Shortness of Breath Albuterol Sulfate (Albuterol 0.042% Inhal [place] (1.25mg/3ml) Ud) 1.25 mg INH RQID [facility] Last Admin: 02/04/18 07:28 Dose: 1.25 mg Allopurinol (Zyloprim) 300 mg PO DAILY [facility] Last Admin: 02/03/18 09:35 Dose: 300 mg Amlodipine Besylate (Norvasc) 10 mg PO DAILY [facility] Last Admin: 02/03/18 09:27 Dose: 10 mg Atorvastatin Calcium (Lipitor) 20 mg PO HS [facility] Last Admin: 02/03/18 21:40 Dose: 20 mg Clobetasol Propionate (Temovate Cream) 1 applic TOP BID [facility] Last Admin: 02/03/18 17:38 Dose: 1 applic Docusate Sodium (Colace) 100 mg PO BID [facility] Last Admin: 02/03/18 17:35 Dose: 100 mg Enalapril Maleate (Vasotec) 10 mg PO DAILY [facility] Last Admin: 02/03/18 09:35 Dose: 10 mg Enoxaparin Sodium (Lovenox) 40 mg SC DAILY [facility]; Protocol Last Admin: 02/03/18 09:20 Dose: 40 mg Furosemide (Lasix) 40 mg IVP DAILY [facility] Last Admin: 02/03/18 09:18 Dose: 40 mg Cefazolin Sodium 1 gm/ Sodium (Chloride) 100 mls @ 100 mls/hr IVPB Q8@0600,1400,2200 [facility]; Protocol Last Admin: 02/04/18 06:12 Dose: 100 mls/hr Lactated Ringer's (Lactated Ringer's) 1,000 mls @ 60 mls/hr IV .[id number] [facility] Metoprolol Tartrate (Lopressor) 25 mg PO Q12 [facility] Last Admin: 02/03/18 21:40 Dose: 25 mg Pantoprazole Sodium (Protonix Ec Tab) 40 mg PO DAILY [facility] Last Admin: 02/03/18 09:28 Dose: 40 mg Pyridostigmine [place] (Mestinon Tab) 30 mg PO TID [facility] Last Admin: 02/03/18 17:38 Dose: 30 mg - Labs Labs: 02/04/18 05:10 02/04/18 05:10 PT 12.5 Seconds (9.8-13.1) 01/27/18 10:57 INR 1.1 01/27/18 10:57 APTT 35.0 Seconds (25.6-37.1) 01/27/18 10:57 - Constitutional Appears: Non-toxic, No Acute Distress - Respiratory Exam Respiratory Exam: Clear to Ausculation Bilateral, NORMAL BREATHING PATTERN - Cardiovascular Exam Cardiovascular Exam: REGULAR RHYTHM, +S1, +S2 - GI/Abdominal Exam GI & Abdominal Exam: Soft. absent: Distended, Firm, Guarding, Rigid, Tenderness, Rebound Assessment and Plan - Assessment and Plan (Free Text) Assessment: 87M with colonic ileus S/P Colonoscopy 02/04/18 - no obstruction, no constipation, colon decompressed Plan: - advance diet as tolerated - monitor for flatus and further BMs Further recs discuss with Dr. Saleem Means, PGY3
[2018-02-04] MEDS: Enoxaparin 40 mg Syringe SC SCH (10:46)
[2018-02-04] MEDS: Pantoprazole 40 mg EC Tab PO SCH (10:48)
[2018-02-04] MEDS ORDERED: Potassium Chloride 10 mEq ER Tab PO ONE (11:05)
--- NOTE | 2018-02-04 12:08 | CP.PCM.PN ---
Subjective - Date & Time of Evaluation Date of Evaluation: 02/04/18 Time of Evaluation: 12:03 - Subjective Subjective: s/p colonoscopy, not sob, no cp alert and verbal, noted to have decreased HR 40's during sleep. Objective - Vital Signs/Intake and Output Vital Signs (last 24 hours): Temp Pulse Resp BP Pulse Ox 98.1 F 69 19 141/81 95 02/04/18 09:01 02/04/18 10:47 02/04/18 09:01 02/04/18 10:47 02/04/18 09:01 Intake and Output: 02/04/18 02/04/18 06:59 18:59 Intake Total 150 Balance 150 - Medications Medications: Current Medications Albuterol (Ventolin Hfa 90 Mcg/Actuation (8 G)) 1 puff INH RQ6 PRN PRN Reason: Shortness of Breath Albuterol Sulfate (Albuterol 0.042% Inhal [place] (1.25mg/3ml) Ud) 1.25 mg INH RQID [facility] Last Admin: 02/04/18 11:20 Dose: 1.25 mg Allopurinol (Zyloprim) 300 mg PO DAILY [facility] Last Admin: 02/04/18 10:49 Dose: 300 mg Amlodipine Besylate (Norvasc) 10 mg PO DAILY [facility] Last Admin: 02/04/18 10:47 Dose: 10 mg Atorvastatin Calcium (Lipitor) 20 mg PO HS [facility] Last Admin: 02/03/18 21:40 Dose: 20 mg Clobetasol Propionate (Temovate Cream) 1 applic TOP BID [facility] Last Admin: 02/04/18 10:48 Dose: 1 applic Docusate Sodium (Colace) 100 mg PO BID [facility] Last Admin: 02/04/18 10:42 Dose: 100 mg Enalapril Maleate (Vasotec) 10 mg PO DAILY [facility] Last Admin: 02/04/18 10:48 Dose: 10 mg Enoxaparin Sodium (Lovenox) 40 mg SC DAILY [facility]; Protocol Last Admin: 02/04/18 10:46 Dose: Not Given Furosemide (Lasix) 40 mg IVP DAILY [facility] Last Admin: 02/04/18 10:42 Dose: 40 mg Cefazolin Sodium 1 gm/ Sodium (Chloride) 100 mls @ 100 mls/hr IVPB Q8@0600,1400,2200 [facility]; Protocol Last Admin: 02/04/18 06:12 Dose: 100 mls/hr Lactated Ringer's (Lactated Ringer's) 1,000 mls @ 60 mls/hr IV .[id number] [facility] Metoprolol Tartrate (Lopressor) 25 mg PO Q12 [facility] Last Admin: 02/04/18 10:45 Dose: 25 mg Pantoprazole Sodium (Protonix Ec Tab) 40 mg PO DAILY [facility] Last Admin: 02/04/18 10:48 Dose: 40 mg Pyridostigmine [place] (Mestinon Tab) 30 mg PO TID [facility] Last Admin: 02/04/18 10:46 Dose: 30 mg - Labs Labs: 02/04/18 05:10 02/04/18 05:10 PT 12.5 Seconds (9.8-13.1) 01/27/18 10:57 INR 1.1 01/27/18 10:57 APTT 35.0 Seconds (25.6-37.1) 01/27/18 10:57 - Respiratory Exam Respiratory Exam: Clear to Ausculation Bilateral - Cardiovascular Exam Cardiovascular Exam: Irregular Rhythm, Murmur Additional comments: Tracey - Extremities Exam Extremities Exam: Pedal Edema (celluitis improved) Assessment and Plan - Assessment and Plan (Free Text) Assessment: stable s/p colonoscopy Make benefit from short rehab stay to improved mobility pre DC Continue current medications Decision re: outpt anticoagulation status dependent on mobility / balance No attempt at cardioversion will be made, given LA size, AVR, controlled rate
--- NOTE | 2018-02-04 20:37 | CP.PCM.PN ---
Subjective - Date & Time of Evaluation Date of Evaluation: 02/04/18 Time of Evaluation: 22:22 - Subjective Subjective: Above noted Objective - Vital Signs/Intake and Output Vital Signs (last 24 hours): Temp Pulse Resp BP Pulse Ox 97.5 F L 68 20 117/65 94 L 02/04/18 20:15 02/04/18 20:15 02/04/18 20:15 02/04/18 20:15 02/04/18 20:15 Intake and Output: 02/04/18 02/05/18 18:59 06:59 Intake Total 1450 Balance 1450 - Medications Medications: Current Medications Albuterol (Ventolin Hfa 90 Mcg/Actuation (8 G)) 1 puff INH RQ6 PRN PRN Reason: Shortness of Breath Albuterol Sulfate (Albuterol 0.042% Inhal [place] (1.25mg/3ml) Ud) 1.25 mg INH RQID [facility] Last Admin: 02/04/18 19:12 Dose: 1.25 mg Allopurinol (Zyloprim) 300 mg PO DAILY [facility] Last Admin: 02/04/18 10:49 Dose: 300 mg Amlodipine Besylate (Norvasc) 10 mg PO DAILY [facility] Last Admin: 02/04/18 10:47 Dose: 10 mg Atorvastatin Calcium (Lipitor) 20 mg PO HS [facility] Last Admin: 02/03/18 21:40 Dose: 20 mg Clobetasol Propionate (Temovate Cream) 1 applic TOP BID [facility] Last Admin: 02/04/18 17:25 Dose: 1 applic Docusate Sodium (Colace) 100 mg PO BID [facility] Last Admin: 02/04/18 17:23 Dose: 100 mg Enalapril Maleate (Vasotec) 10 mg PO DAILY [facility] Last Admin: 02/04/18 10:48 Dose: 10 mg Enoxaparin Sodium (Lovenox) 40 mg SC DAILY [facility]; Protocol Last Admin: 02/04/18 10:46 Dose: Not Given Furosemide (Lasix) 40 mg IVP DAILY [facility] Last Admin: 02/04/18 10:42 Dose: 40 mg Cefazolin Sodium 1 gm/ Sodium (Chloride) 100 mls @ 100 mls/hr IVPB Q8@0600,1400,2200 [facility]; Protocol Last Admin: 02/04/18 14:01 Dose: 100 mls/hr Metoprolol Tartrate (Lopressor) 25 mg PO Q12 [facility] Last Admin: 02/04/18 10:45 Dose: 25 mg Pantoprazole Sodium (Protonix Ec Tab) 40 mg PO DAILY [facility] Last Admin: 02/04/18 10:48 Dose: 40 mg Pyridostigmine [place] (Mestinon Tab) 30 mg PO TID [facility] Last Admin: 02/04/18 17:24 Dose: 30 mg - Labs Labs: 02/04/18 05:10 02/04/18 05:10 PT 12.5 Seconds (9.8-13.1) 01/27/18 10:57 INR 1.1 01/27/18 10:57 APTT 35.0 Seconds (25.6-37.1) 01/27/18 10:57 - Respiratory Exam Respiratory Exam: NORMAL BREATHING PATTERN - Cardiovascular Exam Cardiovascular Exam: REGULAR RHYTHM - GI/Abdominal Exam GI & Abdominal Exam: Normal Bowel Sounds Assessment and Plan - Assessment and Plan (Free Text) Assessment: Distended abdomen CT scan/KUB colonic illeus Improving S/P Colonoscopy decompression As per GI HX Low back surgery (Severe Spinal Stenosis) Post operative illeus SOB COPD Smoker Pleural effusion steroids O2 CHF S/P TAVR Diuretics Pulmonary Cardiology Bilat Lower ext edema/ cellulitis ID ABX podiatry Hypokalemia 2 to GI?? K+ suppl Hyponatremia 2 to fluid overload Hyperkalemia etiol?? Hold ARB Kaexylate Urine lytes Nephrology consult HTN Prediabetes
[2018-02-05] MEDS: ceFAZolin 1 GM in Sodium Chloride 0.9% 100 ML IVPB SCH ×2 (05:57→13:44)
[2018-02-05] MEDS: Albuterol 0.042% Inhal Sol (1.25 mg/3 mL) UD INH SCH (07:53)
--- NOTE | 2018-02-05 09:04 | CP.PCM.PN ---
Subjective - Date & Time of Evaluation Date of Evaluation: 02/05/18 Time of Evaluation: 08:59 - Subjective Subjective: Appears comfortable, lying in bed. No c/o abdominal pain. + BMs. Vital signs have been stable. Breathing comfortably w/o cough. Has been on aerosol therapy with 1/2 strength albuterol QID. No dullness on chest percussion. Equal expansion. Breath sounds are diminished bilaterally with scattered rhonchi. Few dependant dry rales in lower lobes bilaterally. No audible wheezing or bronchial breathing. Heart sounds are distant, irregular. Abdomen is soft, not tympanitic, good bowel sounds. No dependant edema or cyanosis. Cellulitic areas are slowly resolving. Medically stable from a respiratory standpoint. Switch back to Advair 250 BID and use albuterol PRN. Chest x-ray PA/LAT. Objective - Vital Signs/Intake and Output Vital Signs (last 24 hours): Temp Pulse Resp BP Pulse Ox 98.6 F 77 18 146/74 92 L 02/05/18 08:06 02/05/18 08:06 02/05/18 08:06 02/05/18 08:06 02/05/18 08:06 Intake and Output: 02/04/18 02/05/18 23:59 11:59 Intake Total 1300 Balance 1300 - Medications Medications: Current Medications Albuterol (Ventolin Hfa 90 Mcg/Actuation (8 G)) 1 puff INH RQ6 PRN PRN Reason: Shortness of Breath Albuterol Sulfate (Albuterol 0.042% Inhal [place] (1.25mg/3ml) Ud) 1.25 mg INH RQID [facility] Last Admin: 02/05/18 07:53 Dose: 1.25 mg Allopurinol (Zyloprim) 300 mg PO DAILY [facility] Last Admin: 02/04/18 10:49 Dose: 300 mg Amlodipine Besylate (Norvasc) 10 mg PO DAILY [facility] Last Admin: 02/04/18 10:47 Dose: 10 mg Atorvastatin Calcium (Lipitor) 20 mg PO HS [facility] Last Admin: 02/04/18 21:41 Dose: 20 mg Clobetasol Propionate (Temovate Cream) 1 applic TOP BID [facility] Last Admin: 02/04/18 17:25 Dose: 1 applic Docusate Sodium (Colace) 100 mg PO BID [facility] Last Admin: 02/04/18 17:23 Dose: 100 mg Enalapril Maleate (Vasotec) 10 mg PO DAILY [facility] Last Admin: 02/04/18 10:48 Dose: 10 mg Enoxaparin Sodium (Lovenox) 40 mg SC DAILY [facility]; Protocol Last Admin: 02/04/18 10:46 Dose: Not Given Furosemide (Lasix) 40 mg IVP DAILY [facility] Last Admin: 02/04/18 10:42 Dose: 40 mg Cefazolin Sodium 1 gm/ Sodium (Chloride) 100 mls @ 100 mls/hr IVPB Q8@0600,1400,2200 [facility]; Protocol Last Admin: 02/05/18 05:57 Dose: 100 mls/hr Metoprolol Tartrate (Lopressor) 25 mg PO Q12 [facility] Last Admin: 02/04/18 21:41 Dose: Not Given Pantoprazole Sodium (Protonix Ec Tab) 40 mg PO DAILY [facility] Last Admin: 02/04/18 10:48 Dose: 40 mg Pyridostigmine [place] (Mestinon Tab) 30 mg PO TID [facility] Last Admin: 02/04/18 17:24 Dose: 30 mg - Labs Labs: 02/04/18 05:10 02/04/18 05:10 PT 12.5 Seconds (9.8-13.1) 01/27/18 10:57 INR 1.1 01/27/18 10:57 APTT 35.0 Seconds (25.6-37.1) 01/27/18 10:57 Assessment and Plan (1) COPD with exacerbation Status: Acute (2) Leg edema Status: Chronic (3) Pleural effusion due to congestive heart failure Status: Acute (4) Atelectasis, bilateral Status: Acute
[2018-02-05] MEDS ORDERED: Fluticasone-Salmeterol 250-50mcg Diskus IH SCH (09:15)
--- NOTE | 2018-02-05 09:51 | CP.PCM.PN ---
Subjective - Date & Time of Evaluation Date of Evaluation: 02/05/18 Time of Evaluation: 09:49 - Subjective Subjective: GI note for Dr. Monge 87M seen and examined at bedside. Patient doing well this morning, tolerating currently diet, abdominal still distended. Objective - Vital Signs/Intake and Output Vital Signs (last 24 hours): Temp Pulse Resp BP Pulse Ox 98.6 F 77 18 146/74 92 L 02/05/18 08:06 02/05/18 08:06 02/05/18 08:06 02/05/18 08:06 02/05/18 08:06 - Medications Medications: Current Medications Albuterol (Ventolin Hfa 90 Mcg/Actuation (8 G)) 1 puff INH RQ6 PRN PRN Reason: Shortness of Breath Allopurinol (Zyloprim) 300 mg PO DAILY [facility] Last Admin: 02/04/18 10:49 Dose: 300 mg Amlodipine Besylate (Norvasc) 10 mg PO DAILY [facility] Last Admin: 02/04/18 10:47 Dose: 10 mg Atorvastatin Calcium (Lipitor) 20 mg PO HS [facility] Last Admin: 02/04/18 21:41 Dose: 20 mg Clobetasol Propionate (Temovate Cream) 1 applic TOP BID [facility] Last Admin: 02/04/18 17:25 Dose: 1 applic Docusate Sodium (Colace) 100 mg PO BID [facility] Last Admin: 02/04/18 17:23 Dose: 100 mg Enalapril Maleate (Vasotec) 10 mg PO DAILY [facility] Last Admin: 02/04/18 10:48 Dose: 10 mg Enoxaparin Sodium (Lovenox) 40 mg SC DAILY [facility]; Protocol Last Admin: 02/04/18 10:46 Dose: Not Given Furosemide (Lasix) 40 mg IVP DAILY [facility] Last Admin: 02/04/18 10:42 Dose: 40 mg Cefazolin Sodium 1 gm/ Sodium (Chloride) 100 mls @ 100 mls/hr IVPB Q8@0600, 1400,2200 [facility]; Protocol Last Admin: 02/05/18 05:57 Dose: 100 mls/hr Metoprolol Tartrate (Lopressor) 25 mg PO Q12 [facility] Last Admin: 02/04/18 21:41 Dose: Not Given Pantoprazole Sodium (Protonix Ec Tab) 40 mg PO DAILY [facility] Last Admin: 02/04/18 10:48 Dose: 40 mg Pyridostigmine [place] (Mestinon Tab) 30 mg PO TID [facility] Last Admin: 02/04/18 17:24 Dose: 30 mg Fluticasone/Salmeterol (Advair Diskus 250/50) 1 puff IH Q12 [facility] - Labs Labs: 02/04/18 05:10 02/04/18 05:10 PT 12.5 Seconds (9.8-13.1) 01/27/18 10:57 INR 1.1 01/27/18 10:57 APTT 35.0 Seconds (25.6-37.1) 01/27/18 10:57 - Constitutional Appears: Non-toxic, No Acute Distress - Respiratory Exam Respiratory Exam: Clear to Ausculation Bilateral, NORMAL BREATHING PATTERN - Cardiovascular Exam Cardiovascular Exam: REGULAR RHYTHM, +S1, +S2 - GI/Abdominal Exam GI & Abdominal Exam: Distended, Soft. absent: Firm, Guarding, Rigid, Tenderness, Rebound Assessment and Plan - Assessment and Plan (Free Text) Assessment: 87M abdominal distention 2/2 colonic ileus Plan: - monitor for bowel function - Monitor for diet tolerance - Monitor abdominal distention Further recs discuss with Dr. Saleem Means, PGY3
[2018-02-05] MEDS: Enoxaparin 40 mg Syringe SC SCH (10:28)
[2018-02-05] MEDS: Pantoprazole 40 mg EC Tab PO SCH (10:30)
--- NOTE | 2018-02-05 10:57 | CP.PCM.PN ---
Subjective - Date & Time of Evaluation Date of Evaluation: 02/05/18 Time of Evaluation: 10:37 - Subjective Subjective: Podiatry progress Note for Dr. Kirk 87M with PMH CHF, HTN, HLD, Bronchitis, COPD (noncompliant with home o2), gout who was originally admitted 01/27 for persistent cough and SOB seen at bedside for b/l LE redness. Patient denies any pain to either leg. He denies any further pedal complaints at this time. He is AAO x 3 and NAD, resting comfortably in bed. Objective - Vital Signs/Intake and Output Vital Signs (last 24 hours): Temp Pulse Resp BP Pulse Ox 98.6 F 77 18 146/74 92 L 02/05/18 08:06 02/05/18 08:06 02/05/18 08:06 02/05/18 10:30 02/05/18 08:06 - Medications Medications: Current Medications Albuterol (Ventolin Hfa 90 Mcg/Actuation (8 G)) 1 puff INH RQ6 PRN PRN Reason: Shortness of Breath Allopurinol (Zyloprim) 300 mg PO DAILY [facility] Last Admin: 02/05/18 10:32 Dose: 300 mg Amlodipine Besylate (Norvasc) 10 mg PO DAILY [facility] Last Admin: 02/05/18 10:29 Dose: 10 mg Atorvastatin Calcium (Lipitor) 20 mg PO HS [facility] Last Admin: 02/04/18 21:41 Dose: 20 mg Clobetasol Propionate (Temovate Cream) 1 applic TOP BID [facility] Last Admin: 02/05/18 10:31 Dose: 1 applic Docusate Sodium (Colace) 100 mg PO BID [facility] Last Admin: 02/05/18 10:25 Dose: 100 mg Enalapril Maleate (Vasotec) 10 mg PO DAILY [facility] Last Admin: 02/05/18 10:32 Dose: 10 mg Enoxaparin Sodium (Lovenox) 40 mg SC DAILY [facility]; Protocol Last Admin: 02/05/18 10:28 Dose: 40 mg Furosemide (Lasix) 40 mg IVP DAILY [facility] Last Admin: 02/05/18 10:30 Dose: 40 mg Cefazolin Sodium 1 gm/ Sodium (Chloride) 100 mls @ 100 mls/hr IVPB Q8 @0600,1400,2200 [facility]; Protocol Last Admin: 02/05/18 05:57 Dose: 100 mls/hr Metoprolol Tartrate (Lopressor) 25 mg PO Q12 [facility] Last Admin: 02/05/18 10:27 Dose: 25 mg Pantoprazole Sodium (Protonix Ec Tab) 40 mg PO DAILY [facility] Last Admin: 02/05/18 10:30 Dose: 40 mg Pyridostigmine [place] (Mestinon Tab) 30 mg PO TID [facility] Last Admin: 02/05/18 10:28 Dose: 30 mg Fluticasone/Salmeterol (Advair Diskus 250/50) 1 puff IH Q12 [facility] Last Admin: 02/05/18 10:25 Dose: 1 puff - Labs Labs: 02/04/18 05:10 02/04/18 05:10 PT 12.5 Seconds (9.8-13.1) 01/27/18 10:57 INR 1.1 01/27/18 10:57 APTT 35.0 Seconds (25.6-37.1) 01/27/18 10:57 - Constitutional Appears: Well, Non-toxic, No Acute Distress - Head Exam Head Exam: ATRAUMATIC - Extremities Exam Additional comments: B/l LE focused exam: Vasc: DP/PT pulses palpable 1/4 b/l secondary to 1+ pitting b/l. CFT < 3 seconds to all digits b/l. Skin temperature gradient warm to warm from proximal to dis marco. No increased warmth noted at sites of erythema. Neuro: Epicritic and protective sensation grossly intact b/l Derm: B/l dark erythematous changes to skin noted to anteromedial shins. Color change appears to be more attributable to probable venous congestion that to cellulitic changes. No open lesions, wounds, maceration, xerosis noted to b/l LE MSK: No POP to erythematous site. ROM WNL at all major joints. MMT 4/5 in all major muscle grouup - Neurological Exam Neurological Exam: Alert - Psychiatric Exam Psychiatric exam: Normal Affect - Skin Skin Exam: Normal Color Assessment and Plan - Assessment and Plan (Free Text) Assessment: 87M seen at bedside for b/l erythematous LE changes; resolving Plan: Patient seen and evaluated at bedside Plan discussed with Dr. Kirk Chart, labs and vitals reviewed; afebrile and absent leukocytosis Continue abx per ID No plan for surgical intervention at this time; stable for discharge from podiatry point of view. No dressings applied to LE at this time Podiatry will continue to follow while patient in house
--- NOTE | 2018-02-05 11:10 | RAD ---
Date of service: 02/05/2018 HISTORY: pleural effusion COMPARISON: 01/27/2018 TECHNIQUE: Chest PA and lateral FINDINGS: LUNGS: No active pulmonary disease. PLEURA: No significant pleural effusion identified. No pneumothorax apparent. CARDIOVASCULAR: No aortic atherosclerotic calcification present. Normal cardiac size. No pulmonary vascular congestion. OSSEOUS STRUCTURES: No significant abnormalities. VISUALIZED UPPER ABDOMEN: Normal. OTHER FINDINGS: None. IMPRESSION: No active disease.
--- NOTE | 2018-02-05 11:14 | RAD ---
Date of service: 02/05/2018 PROCEDURE: Chest decubitus HISTORY: pleural effusion COMPARISON: 02/05/2018 TECHNIQUE: Bilateral lateral decubitus radiographs FINDINGS: No layering pleural effusion demonstrated. IMPRESSION: No evidence of pleural effusion.
[2018-02-05 15:57] VITALS: BP 131/76; PULSE 84; RESP 20; TEMP 98.3; O2SAT 94
--- NOTE | 2018-02-05 16:42 | CP.PCM.PN ---
Subjective - Date & Time of Evaluation Date of Evaluation: 02/05/18 Time of Evaluation: 22:22 - Subjective Subjective: Above noted Objective - Vital Signs/Intake and Output Vital Signs (last 24 hours): Temp Pulse Resp BP Pulse Ox 98.3 F 84 20 131/76 94 L 02/05/18 15:56 02/05/18 15:56 02/05/18 15:56 02/05/18 15:56 02/05/18 15:56 - Labs Labs: 02/04/18 05:10 02/04/18 05:10 PT 12.5 Seconds (9.8-13.1) 01/27/18 10:57 INR 1.1 01/27/18 10:57 APTT 35.0 Seconds (25.6-37.1) 01/27/18 10:57 - Respiratory Exam Respiratory Exam: NORMAL BREATHING PATTERN - Cardiovascular Exam Cardiovascular Exam: REGULAR RHYTHM - GI/Abdominal Exam GI & Abdominal Exam: Normal Bowel Sounds Assessment and Plan - Assessment and Plan (Free Text) Assessment: Illeus large bowel etiol? Improving S/P Colonoscopy decompression As per GI HX Low back surgery (Severe Spinal Stenosis) Post operative illeus SOB COPD Smoker Pleural effusion steroids inhalers O2 CHF Afib S/P TAVR Diuretics Pulmonary Cardiology ?? outpt anticoagulation Bilat Lower ext edema/ cellulitis ID ABX podiatry Hypokalemia 2 to GI?? K+ suppl Hyponatremia 2 to fluid overload Hyperkalemia etiol?? Hold ARB Kaexylate Urine lytes Nephrology consult HTN Prediabetes
== END 2018-02-05 16:26 | DRG 602 ==
LOC: H.ER 10:13 → H.ERHOLD 12:35 → H.TEL 14:26
PROVIDERS: ADMIT Family Medicine Geriatric Medicine; ATTEND Family Medicine Geriatric Medicine
PROC: 3E0F7GC Introduction of Other Therapeutic Substance into Respiratory Tract, Via Natural or Artificial Opening (ICD-10-PCS; 2018-01-27)
PROC: 0D9P70Z Drainage of Rectum with Drainage Device, Via Natural or Artificial Opening (ICD-10-PCS; 2018-01-31)
PROC: 0DJD8ZZ Inspection of Lower Intestinal Tract, Via Natural or Artificial Opening Endoscopic (ICD-10-PCS; principal; 2018-02-04 08:00)
DX: L03.115 Cellulitis of right lower limb (principal); I50.33 Acute on chronic diastolic (congestive) heart failure; J44.1 Chronic obstructive pulmonary disease with (acute) exacerbation; E87.1 Hypo-osmolality and hyponatremia; K56.7 Ileus, unspecified; J98.11 Atelectasis; L03.116 Cellulitis of left lower limb; I11.0 Hypertensive heart disease with heart failure; I48.91 Unspecified atrial fibrillation; E87.5 Hyperkalemia; E66.9 Obesity, unspecified; E78.00 Pure hypercholesterolemia, unspecified; E78.5 Hyperlipidemia, unspecified; E87.6 Hypokalemia; F17.200 Nicotine dependence, unspecified, uncomplicated; I25.10 Atherosclerotic heart disease of native coronary artery without angina pectoris; I35.0 Nonrheumatic aortic (valve) stenosis; I87.8 Other specified disorders of veins; M48.00 Spinal stenosis, site unspecified; R09.02 Hypoxemia; R73.03 Prediabetes; Z79.01 Long term (current) use of anticoagulants; Z79.82 Long term (current) use of aspirin; Z91.19 Patient's noncompliance with other medical treatment and regimen; Z95.2 Presence of prosthetic heart valve; Z99.81 Dependence on supplemental oxygen; J40 Bronchitis, not specified as acute or chronic; M10.9 Gout, unspecified; Z79.899 Other long term (current) drug therapy; K30 Functional dyspepsia

== ENCOUNTER 2018-02-05 15:57 | Inpatient (IN) | payer OTHER ==
[2018-02-05 16:52] VITALS: BMI 30.7
[2018-02-05] MEDS ORDERED: ALBUTEROL SULFATE IH PRN (19:37)
[2018-02-05] MEDS ORDERED: Albuterol HFA 90 mcg/actuation (8 g) INH PRN (20:05)
[2018-02-05] MEDS: Fluticasone-Salmeterol 250-50mcg Diskus IH SCH (21:20)
[2018-02-06] MEDS: ceFAZolin 1 GM in Sodium Chloride 0.9% 100 ML IVPB SCH ×3 (00:21→16:25)
[2018-02-06 07:53] LABS: HEMOGLOBIN 13.4 g/dL (12.0-18.0); MEAN CELL VOLUME 99.7 fl (80.0-94.0); MEAN CORPUSCULAR HEMOGLOBIN 32.3 pg (27.0-31.0); MEAN CORPUSCULAR HGB CONC 32.4 g/dL (33.0-37.0); RBC 4.13 Mil/uL (4.40-5.90); WHITE BLOOD COUNT 5.6 K/uL (4.8-10.8)
[2018-02-06 08:05] LABS: BLOOD UREA NITROGEN 11 mg/dl (9-20); CALCIUM 8.4 mg/dL (8.4-10.2); GFR NON-AFRICAN AMERICAN > 60
[2018-02-06] MEDS: Fluticasone-Salmeterol 250-50mcg Diskus IH SCH ×2 (08:33→21:34)
[2018-02-06] MEDS: Enoxaparin 40 mg Syringe SC SCH (08:35)
[2018-02-06] MEDS: Pantoprazole 40 mg EC Tab PO SCH (08:36)
[2018-02-06] MEDS ORDERED: Potassium Chloride 20 mEq/15 ml LIQ UD PO ONE (10:01)
--- NOTE | 2018-02-06 11:16 | CP.PCM.PN ---
Subjective - Date & Time of Evaluation Date of Evaluation: 02/06/18 Time of Evaluation: 11:12 - Subjective Subjective: Podiatry progress Note for Dr. Kirk: 87 yo male patient, seen and evaluated for B/L LE erythema. Patient is resting comfortably in bed and in NAD. He denies any pain to B/L lower extremities. Denies any other pedal complaints at this time. Denies N/V/F/SOB/CP/chills. Objective - Vital Signs/Intake and Output Vital Signs (last 24 hours): Temp Pulse Resp BP Pulse Ox 97.4 F L 73 18 127/67 98 02/06/18 07:57 02/06/18 08:36 02/06/18 07:57 02/06/18 08:37 02/06/18 07:57 - Medications Medications: Current Medications Albuterol (Ventolin Hfa 90 Mcg/Actuation (8 G)) 1 puff INH RQ6 PRN PRN Reason: Shortness of Breath Allopurinol (Zyloprim) 300 mg PO DAILY [facility] Last Admin: 02/06/18 08:37 Dose: 300 mg Amlodipine Besylate (Norvasc) 10 mg PO DAILY [facility] Last Admin: 02/06/18 08:36 Dose: 10 mg Atorvastatin Calcium (Lipitor) 20 mg PO HS [facility] Last Admin: 02/05/18 21:22 Dose: 20 mg Clobetasol Propionate (Temovate Cream) 1 applic TOP BID [facility] Last Admin: 02/06/18 08:36 Dose: 1 applic Docusate Sodium (Colace) 100 mg PO BID [facility] Last Admin: 02/06/18 08:33 Dose: 100 mg Enalapril Maleate (Vasotec) 10 mg PO DAILY [facility] Last Admin: 02/06/18 08:37 Dose: 10 mg Enoxaparin Sodium (Lovenox) 40 mg SC DAILY [facility]; Protocol Last Admin: 02/06/18 08:35 Dose: 40 mg Furosemide (Lasix) 20 mg PO BID [facility] Cefazolin Sodium 1 gm/ Sodium (Chloride) 100 mls @ 100 mls/hr IVPB Q8 [facility] Last Admin: 02/06/18 08:38 Dose: 100 mls/hr Metoprolol Tartrate (Lopressor) 25 mg PO Q12 [facility] Last Admin: 02/06/18 08:35 Dose: 25 mg Pantoprazole Sodium (Protonix Ec Tab) 40 mg PO DAILY [facility] Last Admin: 02/06/18 08:36 Dose: 40 mg Potassium Chloride (K-Dur 20 Meq Er Tab) 20 meq PO BID [facility] Pyridostigmine [place] (Mestinon Tab) 30 mg PO TID [facility] Last Admin: 02/06/18 08:36 Dose: 30 mg Fluticasone/Salmeterol (Advair Diskus 250/50) 1 puff IH Q12 [facility] Last Admin: 02/06/18 08:33 Dose: 1 puff - Labs Labs: 02/06/18 05:30 02/06/18 05:30 - Constitutional Appears: Well, Non-toxic, No Acute Distress - Head Exam Head Exam: ATRAUMATIC, NORMOCEPHALIC - ENT Exam ENT Exam: Mucous Membranes Moist - Extremities Exam Additional comments: B/l LE focused exam: Vasc: DP/PT pulses palpable 1/4 b/l secondary to 1+ pitting b/l. CFT < 3 seconds to all digits b/l. Skin temperature gradient warm to warm from proximal to distal. No increased warmth noted at sites of erythema. Neuro: Gross and protective sensation intact b/l Derm: B/l dark erythematous/hemosiderin type changes to skin noted to anteromedial shins secondary to venous congestion No open lesions appreciated. Xerosis noted to b/l legs. Ortho: No pain upon palpation to hemosiderin deposits.MMT 4/5 in all major muscle groups - Neurological Exam Neurological Exam: Alert, Awake, Oriented x3 - Psychiatric Exam Psychiatric exam: Normal Affect, Normal Mood Assessment and Plan - Assessment and Plan (Free Text) Assessment: 87 yo male patient with b/l erythematous LE changes; resolving Plan: Patient seen and evaluated at bedside with Dr. Kirk Absent leukocytosis, VSS Continue abx per ID No plan for surgical intervention at this time; stable for discharge from podiatry point of view. Podiatry to sign off at this time, please reconsult as needed
--- NOTE | 2018-02-06 13:16 | CP.PCM.CON ---
History of Present Illness - History of Present Illness History of Present Illness: Follow up consult from acute medicine: This 87 year old [place] male was admitted to acute medicine on 01/27 with exacerbation of COPD, electrolyte imbalance and cellulitis of both legs. He developed large bowel ileus while hospitalized as well and ultimately did undergo a colonoscopy. He has done well and recovered from these problems and is discharged to [facility] for continued antibiotic and physical therapy. He is seen now seated in a bedside chair, eating lunch and feeling well. Past Patient History - Past Medical History & Family History Past Medical History?: Yes - Past Social History Smoking Status: Former Smoker - CARDIAC Hx Atrial Fibrillation: Yes (current EKG) Hx Congestive Heart Failure: Yes Hx Hypercholesterolemia: Yes Hx Hypertension: Yes Hx Peripheral Edema: Yes Other/Comment: AO valve replacement - PULMONARY Hx Bronchitis: Yes Hx Chronic Obstructive Pulmonary Disease (COPD): Yes - NEUROLOGICAL Hx Neurological Disorder: No - HEENT Hx HEENT Problems: No - RENAL Hx Chronic Kidney Disease: No - ENDOCRINE/METABOLIC Hx Endocrine Disorders: No - HEMATOLOGICAL/ONCOLOGICAL Hx Blood Disorders: No Hx Human Immunodeficiency Virus (HIV): No - INTEGUMENTARY Other/Comment: skin lesion recently removed from left infra-ocular area - MUSCULOSKELETAL/RHEUMATOLOGICAL Hx Falls: No - GASTROINTESTINAL Hx Gastrointestinal Disorders: No - GENITOURINARY/GYNECOLOGICAL Hx Genitourinary Disorders: No - PSYCHIATRIC Hx Substance Use: No - SURGICAL HISTORY Hx Valve Replacement: Yes (TAVR) Other/Comment: Laminectomy L3-L5 05/15/2017 - ANESTHESIA Hx Anesthesia: Yes Hx Anesthesia Reactions: No Hx Malignant Hyperthermia: No Meds Allergies/Adverse Reactions: Allergies Allergy/AdvReac Type Severity Reaction Status Date / Time No Known Allergies Allergy Verified 02/05/18 16:48 - Medications Medications: Current Medications Albuterol (Ventolin Hfa 90 Mcg/Actuation (8 G)) 1 puff INH RQ6 PRN PRN Reason: Shortness of Breath Allopurinol (Zyloprim) 300 mg PO DAILY [facility] Last Admin: 02/06/18 08:37 Dose: 300 mg Amlodipine Besylate (Norvasc) 10 mg PO DAILY [facility] Last Admin: 02/06/18 08:36 Dose: 10 mg Atorvastatin Calcium (Lipitor) 20 mg PO HS [facility] Last Admin: 02/05/18 21:22 Dose: 20 mg Clobetasol Propionate (Temovate Cream) 1 applic TOP BID [facility] Last Admin: 02/06/18 08:36 Dose: 1 applic Docusate Sodium (Colace) 100 mg PO BID [facility] Last Admin: 02/06/18 08:33 Dose: 100 mg Enalapril Maleate (Vasotec) 10 mg PO DAILY [facility] Last Admin: 02/06/18 08:37 Dose: 10 mg Enoxaparin Sodium (Lovenox) 40 mg SC DAILY [facility]; Protocol Last Admin: 02/06/18 08:35 Dose: 40 mg Furosemide (Lasix) 20 mg PO BID [facility] Cefazolin Sodium 1 gm/ Sodium (Chloride) 100 mls @ 100 mls/hr IVPB Q8 [facility] Last Admin: 02/06/18 08:38 Dose: 100 mls/hr Metoprolol Tartrate (Lopressor) 25 mg PO Q12 [facility] Last Admin: 02/06/18 08:35 Dose: 25 mg Pantoprazole Sodium (Protonix Ec Tab) 40 mg PO DAILY [facility] Last Admin: 02/06/18 08:36 Dose: 40 mg Potassium Chloride (K-Dur 20 Meq Er Tab) 20 meq PO BID [facility] Pyridostigmine [place] (Mestinon Tab) 30 mg PO TID [facility] Last Admin: 02/06/18 12:53 Dose: 30 mg Fluticasone/Salmeterol (Advair Diskus 250/50) 1 puff IH Q12 [facility] Last Admin: 02/06/18 08:33 Dose: 1 puff Physical Exam - Additional Findings Additional findings: [place], alert, comfortable. Neck is supple and trachea midline. No visible JVD, no carotid bruit. No dullness on percussion of anterior thorax. No palpated subcutaneous emphysema. Breath sounds are diminished bilaterally w/o audible wheezes. Scattered dry to medium rales are present in lower lobes. Few scattered sonorous rhonchi. No bronchial breath sounds. Heart sounds are distant. Abdomen is mildly distended, soft, positive bowel sounds. Minimal dependant edema at ankles, areas of cellulitis decreased significantly. Results - Vital Signs Recent Vital Signs: Last Vital Signs Temp 97.4 F L 02/06/18 07:57 Pulse 73 02/06/18 08:36 Resp 18 02/06/18 07:57 BP 127/67 02/06/18 08:37 Pulse Ox 98 02/06/18 07:57 - Labs Result Diagrams: 02/09/18 05:47 02/09/18 05:47 Labs: Laboratory Results - last 24 hr 02/06/18 02/06/18 05:30 05:30 WBC 5.6 RBC 4.13 L Hgb 13.4 Hct 41.2 MCV 99.7 H MCH 32.3 H MCHC 32.4 L RDW 15.0 H Plt Count 108 L Sodium 137 Potassium 2.7 L Chloride 96 L Carbon Dioxide 35 H Anion Gap 9 L BUN 11 Creatinine 0.6 L Est GFR ( Amer) > 60 Est GFR (Non-Af Amer) > 60 Random Glucose 118 H Calcium 8.4 Assessment & Plan (1) Ileus, unspecified Status: Resolved (2) COPD with exacerbation Status: Chronic Priority: High Comment: Stable, resolved exacerbation. 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 (4) Cellulitis Status: Acute Comment: Resolving. - Assessment and Plan (Free Text) Plan: Continue treatment for cellulitis. Continue inhalation therapy. Physical therapy.
[2018-02-06] MEDS: Potassium Chloride 20 mEq ER Tab PO SCH (16:27)
--- NOTE | 2018-02-06 16:30 | CP.PCM.CON ---
History of Present Illness - History of Present Illness History of Present Illness: RENAL Consult Note CC: leg swelling reason for consult: hypokalemia HPI: pt is a 87 M with hx of HTN COPD s/p TAVR admitted to hospital with worsening SOB for last few days with cough and leg edema and found to have COPD/CHF exacerbation and seen in renal consult for electrolytes eval. he improved with lasix. d/c to TRCU and renal consult for follow up pt reports improved leg swelling. SOB better. cough improved. no nausea/vomi tting or urine complaints no issues with K or Na in past s: seen and examined no new complaints. feels better no CP/nausea/vomitting. all other negative except as mentioned in hpi. improved SOB no GI complaints o/e: vss, obese male gen: nad sclera: anicteric heent; perrla op: clear neck: supple no thyromegaly lungs: b/l air entry reduced at bases with crackles cv: +S1+s2 no rub abd: soft no organomegaly nt/nd, distended and tympanic. has rectal tube ext: trace edema with erythematous changes neuro: A+OX3 no focal deficit psych: nml affect/mood. limited insight skin: No rash no ulcer except erythema in legs work up: cxr: CHF pattern with small effusions echo normal LVEF TSh 2.4 imp: hypervolemic hyponatremia likely fluid overload and diastolic CHF exacerbation: improved hyperkalemia due to impaired distal tubule sodium delivery as evident by urine Na <5 : RESOLVED Hypokalemia now HTN, COPD CHF s/p TAVR Obesity leg cellulitis plan: Cr stable continue to monitor bp controlled. continue with enalapril continue with lasix 20 mg bid. low Na diet glycemic control supplemented KDUR 20 bid while on lasix management of COPD as per primary team dose meds for GFR >60 thanks for consult Please call if any Qs [phone] Past Patient History - Past Medical History & Family History Past Medical History?: Yes - Past Social History Smoking Status: Former Smoker - CARDIAC Hx Atrial Fibrillation: Yes (current EKG) Hx Congestive Heart Failure: Yes Hx Hypercholesterolemia: Yes Hx Hypertension: Yes Hx Peripheral Edema: Yes Other/Comment: AO valve replacement - PULMONARY Hx Bronchitis: Yes Hx Chronic Obstructive Pulmonary Disease (COPD): Yes - NEUROLOGICAL Hx Neurological Disorder: No - HEENT Hx HEENT Problems: No - RENAL Hx Chronic Kidney Disease: No - ENDOCRINE/METABOLIC Hx Endocrine Disorders: No - HEMATOLOGICAL/ONCOLOGICAL Hx Blood Disorders: No Hx Human Immunodeficiency Virus (HIV): No - INTEGUMENTARY Other/Comment: skin lesion recently removed from left infra-ocular area - MUSCULOSKELETAL/RHEUMATOLOGICAL Hx Falls: No - GASTROINTESTINAL Hx Gastrointestinal Disorders: No - GENITOURINARY/GYNECOLOGICAL Hx Genitourinary Disorders: No - PSYCHIATRIC Hx Substance Use: No - SURGICAL HISTORY Hx Valve Replacement: Yes (TAVR) Other/Comment: Laminectomy L3-L5 05/15/2017 - ANESTHESIA Hx Anesthesia: Yes Hx Anesthesia Reactions: No Hx Malignant Hyperthermia: No Meds Allergies/Adverse Reactions: Allergies Allergy/AdvReac Type Severity Reaction Status Date / Time No Known Allergies Allergy Verified 02/05/18 16:48 - Medications Medications: Current Medications Albuterol (Ventolin Hfa 90 Mcg/Actuation (8 G)) 1 puff INH RQ6 PRN PRN Reason: Shortness of Breath Allopurinol (Zyloprim) 300 mg PO DAILY [facility] Last Admin: 02/06/18 08:37 Dose: 300 mg Amlodipine Besylate (Norvasc) 10 mg PO DAILY [facility] Last Admin: 02/06/18 08:36 Dose: 10 mg Atorvastatin Calcium (Lipitor) 20 mg PO HS [facility] Last Admin: 02/05/18 21:22 Dose: 20 mg Clobetasol Propionate (Temovate Cream) 1 applic TOP BID [facility] Last Admin: 02/06/18 08:36 Dose: 1 applic Docusate Sodium (Colace) 100 mg PO BID [facility] Last Admin: 02/06/18 08:33 Dose: 100 mg Enalapril Maleate (Vasotec) 10 mg PO DAILY [facility] Last Admin: 02/06/18 08:37 Dose: 10 mg Enoxaparin Sodium (Lovenox) 40 mg SC DAILY [facility]; Protocol Last Admin: 02/06/18 08:35 Dose: 40 mg Furosemide (Lasix) 20 mg PO BID [facility] Cefazolin Sodium 1 gm/ Sodium (Chloride) 100 mls @ 100 mls/hr IVPB Q8 [facility] Last Admin: 02/06/18 08:38 Dose: 100 mls/hr Metoprolol Tartrate (Lopressor) 25 mg PO Q12 [facility] Last Admin: 02/06/18 08:35 Dose: 25 mg Pantoprazole Sodium (Protonix Ec Tab) 40 mg PO DAILY [facility] Last Admin: 02/06/18 08:36 Dose: 40 mg Potassium Chloride (K-Dur 20 Meq Er Tab) 20 meq PO BID [facility] Pyridostigmine [place] (Mestinon Tab) 30 mg PO TID [facility] Last Admin: 02/06/18 12:53 Dose: 30 mg Fluticasone/Salmeterol (Advair Diskus 250/50) 1 puff IH Q12 [facility] Last Admin: 02/06/18 08:33 Dose: 1 puff Results - Vital Signs Recent Vital Signs: Last Vital Signs Temp 97.2 F L 02/06/18 15:43 Pulse 68 02/06/18 15:43 Resp 20 02/06/18 15:43 BP 104/63 02/06/18 15:43 Pulse Ox 93 L 02/06/18 15:43 - Labs Result Diagrams: 02/06/18 05:30 02/06/18 05:30 Labs: Laboratory Results - last 24 hr 02/06/18 02/06/18 05:30 05:30 WBC 5.6 RBC 4.13 L Hgb 13.4 Hct 41.2 MCV 99.7 H MCH 32.3 H MCHC 32.4 L RDW 15.0 H Plt Count 108 L Sodium 137 Potassium 2.7 L Chloride 96 L Carbon Dioxide 35 H Anion Gap 9 L BUN 11 Creatinine 0.6 L Est GFR ( Amer) > 60 Est GFR (Non-Af Amer) > 60 Random Glucose 118 H Calcium 8.4
--- NOTE | 2018-02-06 23:08 | CP.PCM.HP ---
Present on Admission - Present on Admission Any Indicators Present on Admission: No Past Patient History - Past Medical History & Family History Past Medical History?: Yes - Past Social History Smoking Status: Former Smoker - CARDIAC Hx Atrial Fibrillation: Yes (current EKG) Hx Congestive Heart Failure: Yes Hx Hypercholesterolemia: Yes Hx Hypertension: Yes Hx Peripheral Edema: Yes Other/Comment: AO valve replacement - PULMONARY Hx Bronchitis: Yes Hx Chronic Obstructive Pulmonary Disease (COPD): Yes - NEUROLOGICAL Hx Neurological Disorder: No - HEENT Hx HEENT Problems: No - RENAL Hx Chronic Kidney Disease: No - ENDOCRINE/METABOLIC Hx Endocrine Disorders: No - HEMATOLOGICAL/ONCOLOGICAL Hx Blood Disorders: No Hx Human Immunodeficiency Virus (HIV): No - INTEGUMENTARY Other/Comment: skin lesion recently removed from left infra-ocular area - MUSCULOSKELETAL/RHEUMATOLOGICAL Hx Falls: No - GASTROINTESTINAL Hx Gastrointestinal Disorders: No - GENITOURINARY/GYNECOLOGICAL Hx Genitourinary Disorders: No - PSYCHIATRIC Hx Substance Use: No - SURGICAL HISTORY Hx Valve Replacement: Yes (TAVR) Other/Comment: Laminectomy L3-L5 05/15/2017 - ANESTHESIA Hx Anesthesia: Yes Hx Anesthesia Reactions: No Hx Malignant Hyperthermia: No Meds Allergies/Adverse Reactions: Allergies Allergy/AdvReac Type Severity Reaction Status Date / Time No Known Allergies Allergy Verified 02/05/18 16:48 Results - Vital Signs Recent Vital Signs: Last Vital Signs Temp 97.0 F L 02/06/18 20:58 Pulse 78 02/06/18 21:33 Resp 20 02/06/18 20:58 BP 111/68 02/06/18 20:58 Pulse Ox 93 L 02/06/18 20:58 - Labs Result Diagrams: 02/06/18 05:30 02/06/18 05:30 Labs: Laboratory Results - last 24 hr 02/06/18 02/06/18 05:30 05:30 WBC 5.6 RBC 4.13 L Hgb 13.4 Hct 41.2 MCV 99.7 H MCH 32.3 H MCHC 32.4 L RDW 15.0 H Plt Count 108 L Sodium 137 Potassium 2.7 L Chloride 96 L Carbon Dioxide 35 H Anion Gap 9 L BUN 11 Creatinine 0.6 L Est GFR ( Amer) > 60 Est GFR (Non-Af Amer) > 60 Random Glucose 118 H Calcium 8.4 Assessment & Plan - Assessment and Plan (Free Text) Assessment: Illeus large bowel etiol? S/P Colonoscopy decompression As per GI Hx Low back surgery (Severe Spinal Stenosis) Post operative illeus Hypokalemia 2 to GI?? K+ suppl Hyponatremia 2 to fluid overload Hyperkalemia etiol?? Hold ARB Kaexylate Urine lytes Nephrology consult COPD Smoker Pleural effusion steroids inhalers O2 Pulmonary CHF Afib S/P TAVR Diuretics Lovenox Cardiology ?? outpt anticoagulation Bilat Lower ext edema/ cellulitis ID [id number] podiatry HTN Prediabetes - Date & Time Date: 02/06/18 Time: 22:22
[2018-02-07] MEDS: ceFAZolin 1 GM in Sodium Chloride 0.9% 100 ML IVPB SCH ×3 (01:04→16:31)
[2018-02-07 07:22] LABS: HEMOGLOBIN 12.6 g/dL (12.0-18.0); MEAN CELL VOLUME 99.4 fl (80.0-94.0); MEAN CORPUSCULAR HEMOGLOBIN 32.1 pg (27.0-31.0); MEAN CORPUSCULAR HGB CONC 32.3 g/dL (33.0-37.0); RBC 3.94 Mil/uL (4.40-5.90); RED CELL DISTRIBUTION WIDTH 15.1 % (11.5-14.5); WHITE BLOOD COUNT 6.5 K/uL (4.8-10.8)
[2018-02-07 08:00] LABS: BLOOD UREA NITROGEN 11 mg/dl (9-20); CALCIUM 8.2 mg/dL (8.4-10.2); GFR NON-AFRICAN AMERICAN > 60
[2018-02-07] MEDS: Fluticasone-Salmeterol 250-50mcg Diskus IH SCH ×2 (09:03→21:27)
[2018-02-07] MEDS: Potassium Chloride 20 mEq ER Tab PO SCH ×2 (09:04→16:32)
[2018-02-07] MEDS: Enoxaparin 40 mg Syringe SC SCH (09:05)
[2018-02-07] MEDS: Pantoprazole 40 mg EC Tab PO SCH (09:06)
--- NOTE | 2018-02-07 12:47 | CP.PCM.CON ---
History of Present Illness - History of Present Illness History of Present Illness: 87 YO MALE WITH COMPLEX HX INCLUDING CAD COPD S/OP TAVR REFERRED FOR ID EVAL OF CELLULITIS LOWER LEGS R> L NOW IN TCU LEGS LESS SWOLLEN NO FEVER REDNESS LESS Review of Systems - Constitutional Constitutional: As Per HPI - EENT Eyes: absent: As Per HPI, Blind Spots, Blurred Vision, Change in Vision, Decreased Night Vision, Diplopia, Discharge, Dry Eye, Exophthalmos, Floaters, Irritation, Itchy Eyes, Loss of Peripheral Vision, Pain, Photophobia, Requires Corrective Lenses, Sees Flashes, Spots in Vision, Tunnel Vision, Other Visual Disturbances, Loss of Vision, Other Ears: absent: As Per HPI, Decreased Hearing, Ear Discharge, Ear Pain, Tinnitus, Abnormal Hearing, Disequilibrium, Dizziness, Other Nose/Mouth/Throat: absent: As Per HPI, Epistaxis, Nasal Congestion, Nasal Discharge, Nasal Obstruction, Nasal Trauma, Nose Pain, Post Nasal Drip, Sinus Pain, Sinus Pressure, Bleeding Gums, Change in Voice, Dental Pain, Dry Mouth, Dysphagia, Halitosis, Hoarsness, Lip Swelling, Mouth Lesions, Mouth Pain, Odynophagia, Sore Throat, Throat Swelling, Tongue Swelling, Facial Pain, Neck Pain, Neck Mass, Other - Cardiovascular Cardiovascular: As Per HPI - Respiratory Respiratory: As Per HPI, Dyspnea, Dyspnea on Exertion - Gastrointestinal Gastrointestinal: absent: As Per HPI, Abdominal Pain, Belching, Bloating, Change in Bowel Habits, Change in Stool Character, Coffee Ground Emesis, Constipation, Cramping, Diarrhea, Dyspepsia, Dysphagia, Early Satiety, Excessive Flatus, Fecal Incontinence, Heartburn, Hematemesis, Hematochezia, Loose Stools, Melena, Nausea, Odynophagia, Temesmus, Vomiting, Other - Genitourinary Genitourinary: absent: As Per HPI, Change in Urinary Stream, Difficulty Urinating, Dysuria, Flank Pain, Hematuria, Pyuria, Nocturia, Urinary Incontinence, Urinary Frequency, Urinary Hesitance, Urinary Urgency, Voiding Freq/Small Amts, Freq UTI, Hx Renal/Bladder Calculi, Hx /Renal Surgery, Bl adder Distension, Other - Musculoskeletal Musculoskeletal: As Per HPI - Integumentary Integumentary: As Per HPI, Skin Pain - Neurological Neurological: absent: As Per HPI, Abnormal Gait, Abnormal Hearing, Abnormal Movements, Abnormal Speech, Behavioral Changes, Burning Sensations, Confusion, Convulsions, Disequilibrium, Dizziness, Numbness, Focal Weakness, Frequent Falls, Headaches, Lack of Coordination, Loss of Vision, Memory Loss, Paresthesias, Radicular Pain, Restless Legs, Sensory Deficit, Syncope, Tingling, Tremor, Vertigo, Weakness, Other Visual Disturbances, Other - Psychiatric Psychiatric: absent: As Per HPI, Abnormal Sleep Pattern, Anhedonia, Anxiety, Auditory Hallucinations, Behavioral Changes, Change in Appetite, Change in Libido, Confusion, Depression, Difficulty Concentrating, Hallucinations, Homicidal Ideation, Hopelessness, Irritability, Memory Loss, Mood Swings, Panic Attacks, Paranoia, Suicidal Ideation, Visual Hallucinations, Tactile Hallucinations, Other Review of Systems - Constitutional Constitutional: As Per HPI - EENT Eyes: absent: As Per HPI, Blind Spots, Blurred Vision, Change in Vision, Decreased Night Vision, Diplopia, Discharge, Dry Eye, Exophthalmos, Floaters, Irritation, Itchy Eyes, Loss of Peripheral Vision, Pain, Photophobia, Requires Corrective Lenses, Sees Flashes, Spots in Vision, Tunnel Vision, Other Visual Disturbances, Loss of Vision, Other Ears: absent: As Per HPI, Decreased Hearing, Ear Discharge, Ear Pain, Tinnitus, Abnormal Hearing, Disequilibrium, Dizziness, Other Nose/Mouth/Throat: absent: As Per HPI, Epistaxis, Nasal Congestion, Nasal Discharge, Nasal Obstruction, Nasal Trauma, Nose Pain, Post Nasal Drip, Sinus Pain, Sinus Pressure, Bleeding Gums, Change in Voice, Dental Pain, Dry Mouth, Dysphagia, Halitosis, Hoarsness, Lip Swelling, Mouth Lesions, Mouth Pain, Odynophagia, Sore Throat, Throat Swelling, Tongue Swelling, Facial Pain, Neck Pain, Neck Mass, Other - Cardiovascular Cardiovascular: absent: As Per HPI, Acrocyanosis, Chest Pain, Chest Pain at Rest, Chest Pain with Activity, Claudication, Diaphoresis, Dyspnea, Dyspnea on Exertion, Edema, Irregular Heart Rhythm, Pain Radiating to Arm/Neck/Jaw, Leg Edema, Leg Ulcers, Lightheadedness, Orthopnea, Palpitations, Paroxysmal Nocturnal Dyspnea, Pedal Edema, Radiating Pain, Rapid Heart Rate, Slow Heart Rate, Syncope, Other - Respiratory Respiratory: absent: As Per HPI, Cough, Dyspnea, Hemoptysis, Dyspnea on Exertion, Wheezing, Snoring, Stridor, Pain on Inspiration, Chest Congestion, Excessive Mucous Production, Change in Mucous Color, Pain with Coughing, Other - Gastrointestinal Gastrointestinal: absent: As Per HPI, Abdominal Pain, Belching, Bloating, Change in Bowel Habits, Change in Stool Character, Coffee Ground Emesis, Constipation, Cramping, Diarrhea, Dyspepsia, Dysphagia, Early Satiety, Excessive Flatus, Fecal Incontinence, Heartburn, Hematemesis, Hematochezia, Loose Stools, Melena, Nausea, Odynophagia, Temesmus, Vomiting, Other - Genitourinary Genitourinary: absent: As Per HPI, Change in Urinary Stream, Difficulty Urinating, Dysuria, Flank Pain, Hematuria, Pyuria, Nocturia, Urinary Incontinence, Urinary Frequency, Urinary Hesitance, Urinary Urgency, Voiding Freq/Small Amts, Freq UTI, Hx Renal/Bladder Calculi, Hx /Renal Surgery, Bladder Distension, Other - Musculoskeletal Musculoskeletal: As Per HPI - Integumentary Integumentary: As Per HPI - Neurological Neurological: absent: As Per HPI, Abnormal Gait, Abnormal Hearing, Abnormal Movements, Abnormal Speech, Behavioral Changes, Burning Sensations, Confusion, Convulsions, Disequilibrium, Dizziness, Numbness, Focal Weakness, Frequent Falls, Headaches, Lack of Coordination, Loss of Vision, Memory Loss, Paresthesias, Radicular Pain, Restless Legs, Sensory Deficit, Syncope, Tingling, Tremor, Vertigo, Weakness, Other Visual Disturbances, Other - Psychiatric Psychiatric: absent: As Per HPI, Abnormal Sleep Pattern, Anhedonia, Anxiety, Auditory Hallucinations, Behavioral Changes, Change in Appetite, Change in Libido, Confusion, Depression, Difficulty Concentrating, Hallucinations, Homicidal Ideation, Hopelessness, Irritability, Memory Loss, Mood Swings, Panic Attacks, Paranoia, Suicidal Ideation, Visual Hallucinations, Tactile Hallucinations, Other - Endocrine Endocrine: absent: As Per HPI, Change in Body Appearance, Change in Libido, Cold Intolorance, Deepening of Voice, Excessive Sweating, Fatigue, Flushing, Heat Intolorance, Increase in Ring/Shoe/Hat Size, Palpitations, Polydipsia, Polyphagia, Polyuria, Other - Hematologic/Lymphatic Hematologic: absent: As Per HPI, Easy Bleeding, Easy Bruising, Lymphadenopathy, Other Past Patient History - Past Medical History & Family History Past Medical History?: Yes - Past Social History Smoking Status: Former Smoker - CARDIAC Hx Atrial Fibrillation: Yes (current EKG) Hx Congestive Heart Failure: Yes Hx Hypercholesterolemia: Yes Hx Hypertension: Yes Hx Peripheral Edema: Yes Other/Comment: AO valve replacement - PULMONARY Hx Bronchitis: Yes Hx Chronic Obstructive Pulmonary Disease (COPD): Yes - NEUROLOGICAL Hx Neurological Disorder: No - HEENT Hx HEENT Problems: No - RENAL Hx Chronic Kidney Disease: No - ENDOCRINE/METABOLIC Hx Endocrine Disorders: No - HEMATOLOGICAL/ONCOLOGICAL Hx Blood Disorders: No Hx Human Immunodeficiency Virus (HIV): No - INTEGUMENTARY Other/Comment: skin lesion recently removed from left infra-ocular area - MUSCULOSKELETAL/RHEUMATOLOGICAL Hx Falls: No - GASTROINTESTINAL Hx Gastrointestinal Disorders: No - GENITOURINARY/GYNECOLOGICAL Hx Genitourinary Disorders: No - PSYCHIATRIC Hx Substance Use: No - SURGICAL HISTORY Hx Valve Replacement: Yes (TAVR) Other/Comment: Laminectomy L3-L5 05/15/2017 - ANESTHESIA Hx Anesthesia: Yes Hx Anesthesia Reactions: No Hx Malignant Hyperthermia: No Meds Allergies/Adverse Reactions: Allergies Allergy/AdvReac Type Severity Reaction Status Date / Time No Known Allergies Allergy Verified 02/05/18 16:48 - Medications Medications: Current Medications Albuterol (Ventolin Hfa 90 Mcg/Actuation (8 G)) 1 puff INH RQ6 PRN PRN Reason: Shortness of Breath Allopurinol (Zyloprim) 300 mg PO DAILY [facility] Last Admin: 02/07/18 09:07 Dose: 300 mg Amlodipine Besylate (Norvasc) 10 mg PO DAILY [facility] Last Admin: 02/07/18 09:06 Dose: 10 mg Atorvastatin Calcium (Lipitor) 20 mg PO HS [facility] Last Admin: 02/06/18 21:33 Dose: 20 mg Clobetasol Propionate (Temovate Cream) 1 applic TOP BID [facility] Last Admin: 02/07/18 09:07 Dose: 1 applic Docusate Sodium (Colace) 100 mg PO BID [facility] Last Admin: 02/07/18 09:04 Dose: 100 mg Enalapril Maleate (Vasotec) 10 mg PO DAILY [facility] Last Admin: 02/07/18 09:07 Dose: 10 mg Enoxaparin Sodium (Lovenox) 40 mg SC DAILY [facility]; Protocol Last Admin: 02/07/18 09:05 Dose: 40 mg Furosemide (Lasix) 20 mg PO BID [facility] Last Admin: 02/07/18 09:05 Dose: 20 mg Cefazolin Sodium 1 gm/ Sodium (Chloride) 100 mls @ 100 mls/hr IVPB Q8 [facility] Last Admin: 02/07/18 09:04 Dose: 100 mls/hr Metoprolol Tartrate (Lopressor) 25 mg PO Q12 [facility] Last Admin: 02/07/18 09:05 Dose: 25 mg Pantoprazole Sodium (Protonix Ec Tab) 40 mg PO DAILY [facility] Last Admin: 02/07/18 09:06 Dose: 40 mg Potassium Chloride (K-Dur 20 Meq Er Tab) 20 meq PO BID [facility] Last Admin: 02/07/18 09:04 Dose: 20 meq Pyridostigmine [place] (Mestinon Tab) 30 mg PO TID [facility] Last Admin: 02/07/18 09:06 Dose: 30 mg Fluticasone/Salmeterol (Advair Diskus 250/50) 1 puff IH Q12 [facility] Last Admin: 02/07/18 09:03 Dose: 1 puff Physical Exam - Constitutional Appears: Non-toxic, Chronically Ill - Head Exam Head Exam: NORMOCEPHALIC - Eye Exam Eye Exam: absent: Scleral icterus - ENT Exam ENT Exam: Mucous Membranes Dry - Neck Exam Neck exam: Negative for: Lymphadenopathy, Thyromegaly - Respiratory Exam Respiratory Exam: Decreased Breath Sounds, Prolonged Expiratory Phase, Rhonchi - Cardiovascular Exam Cardiovascular Exam: REGULAR RHYTHM, +S1, +S2 - GI/Abdominal Exam GI & Abdominal Exam: Diminished Bowel Sounds, Distended, Soft. absent: Rebound, Rigid, Tenderness - Rectal Exam Rectal Exam: Deferred - Exam Exam: NORMAL INSPECTION - Extremities Exam Extremities exam: Positive for: pedal edema, pedal pulses present. Negative for: calf tenderness, normal inspection, tenderness Additional comments: REDNESS LESS BILAT LOWER EXTREM - Back Exam Back exam: absent: CVA tenderness (L), CVA tenderness (R) - Neurological Exam Neurological exam: Alert, CN II-XII Intact, Oriented x3, Reflexes Normal - Psychiatric Exam Psychiatric exam: Normal Mood - Skin Skin Exam: Dry, Erythema Results - Vital Signs Recent Vital Signs: Last Vital Signs Temp 97.5 F L 02/07/18 08:28 Pulse 70 02/07/18 10:41 Resp 18 02/07/18 08:28 BP 120/71 02/07/18 10:41 Pulse Ox 98 02/07/18 10:41 - Labs Result Diagrams: 02/07/18 05:30 02/07/18 05:30 Labs: Laboratory Results - last 24 hr 02/07/18 02/07/18 05:30 05:30 WBC 6.5 RBC 3.94 L Hgb 12.6 Hct 39.2 MCV 99.4 H MCH 32.1 H MCHC 32.3 L RDW 15.1 H Plt Count 113 L Sodium 135 Potassium 3.2 L Chloride 98 Carbon Dioxide 35 H Anion Gap 5 L BUN 11 Creatinine 0.6 L Est GFR ( Amer) > 60 Est GFR (Non-Af Amer) > 60 Random Glucose 128 H Calcium 8.2 L Assessment & Plan (1) CHF (congestive heart failure) Status: Acute (2) COPD (chronic obstructive pulmonary disease) Status: Acute (3) Aortic stenosis Status: Chronic Priority: High - Assessment and Plan (Free Text) Assessment: IV RX IN PROGRESS CONT PT/OT GI FOLLOW UP
--- NOTE | 2018-02-07 13:00 | CP.PCM.PN ---
Subjective - Date & Time of Evaluation Date of Evaluation: 02/07/18 Time of Evaluation: 13:00 - Subjective Subjective: RENAL Consult Note CC: leg swelling reason for consult: hypokalemia HPI: pt is a 87 M with hx of HTN COPD s/p TAVR admitted to hospital with worsening SOB for last few days with cough and leg edema and found to have COPD/CHF exacerbation and seen in renal consult for electrolytes eval. he improved with lasix. d/c to TRCU and renal consult for follow up pt reports improved leg swelling. SOB better. cough improved. no nausea/vomi tting or urine complaints no issues with K or Na in past s: seen and examined no new complaints. feels better no CP/nausea/vomitting. all other negative except as mentioned in hpi. improved SOB no GI complaints o/e: vss, obese male gen: nad sclera: anicteric heent; perrla op: clear neck: supple no thyromegaly lungs: b/l air entry reduced at bases with crackles cv: +S1+s2 no rub abd: soft no organomegaly nt/nd, and tympanic. ext: trace edema with erythematous changes neuro: A+OX3 no focal deficit psych: nml affect/mood. limited insight skin: No rash no ulcer except erythema in legs work up: cxr: CHF pattern with small effusions echo normal LVEF TSh 2.4 imp: hypervolemic hyponatremia likely fluid overload and diastolic CHF exacerbation: improved hyperkalemia due to impaired distal tubule sodium delivery as evident by urine Na <5 : RESOLVED Hypokalemia now HTN, COPD CHF s/p TAVR Obesity leg cellulitis plan: Cr stable continue to monitor bp controlled. continue with enalapril continue with lasix 20 mg bid. low Na diet glycemic control supplemented KDUR 20 bid while on lasix management of COPD as per primary team dose meds for GFR >60 thanks for consult Please call if any Qs [phone] Objective - Vital Signs/Intake and Output Vital Signs (last 24 hours): Temp Pulse Resp BP Pulse Ox 97.5 F L 70 18 120/71 98 02/07/18 08:28 02/07/18 10:41 02/07/18 08:28 02/07/18 10:41 02/07/18 10:41 - Medications Medications: Current Medications Albuterol (Ventolin Hfa 90 Mcg/Actuation (8 G)) 1 puff INH RQ6 PRN PRN Reason: Shortness of Breath Allopurinol (Zyloprim) 300 mg PO DAILY [facility] Last Admin: 02/07/18 09:07 Dose: 300 mg Amlodipine Besylate (Norvasc) 10 mg PO DAILY [facility] Last Admin: 02/07/18 09:06 Dose: 10 mg Atorvastatin Calcium (Lipitor) 20 mg PO HS [facility] Last Admin: 02/06/18 21:33 Dose: 20 mg Clobetasol Propionate (Temovate Cream) 1 applic TOP BID [facility] Last Admin: 02/07/18 09:07 Dose: 1 applic Docusate Sodium (Colace) 100 mg PO BID [facility] Last Admin: 02/07/18 09:04 Dose: 100 mg Enalapril Maleate (Vasotec) 10 mg PO DAILY [facility] Last Admin: 02/07/18 09:07 Dose: 10 mg Enoxaparin Sodium (Lovenox) 40 mg SC DAILY [facility]; Protocol Last Admin: 02/07/18 09:05 Dose: 40 mg Furosemide (Lasix) 20 mg PO BID [facility] Last Admin: 02/07/18 09:05 Dose: 20 mg Cefazolin Sodium 1 gm/ Sodium (Chloride) 100 mls @ 100 mls/hr IVPB Q8 [facility] Last Admin: 02/07/18 09:04 Dose: 100 mls/hr Metoprolol Tartrate (Lopressor) 25 mg PO Q12 [facility] Last Admin: 02/07/18 09:05 Dose: 25 mg Pantoprazole Sodium (Protonix Ec Tab) 40 mg PO DAILY [facility] Last Admin: 02/07/18 09:06 Dose: 40 mg Potassium Chloride (K-Dur 20 Meq Er Tab) 20 meq PO BID [facility] Last Admin: 02/07/18 09:04 Dose: 20 meq Pyridostigmine [place] (Mestinon Tab) 30 mg PO TID [facility] Last Admin: 02/07/18 09:06 Dose: 30 mg Fluticasone/Salmeterol (Advair Diskus 250/50) 1 puff IH Q12 [facility] Last Admin: 02/07/18 09:03 Dose: 1 puff - Labs Labs: 02/07/18 05:30 02/07/18 05:30
--- NOTE | 2018-02-07 16:31 | CP.PCM.PN ---
Subjective - Date & Time of Evaluation Date of Evaluation: 02/07/18 Time of Evaluation: 22:22 - Subjective Subjective: Above noted Objective - Vital Signs/Intake and Output Vital Signs (last 24 hours): Temp Pulse Resp BP Pulse Ox 97.0 F L 78 20 126/58 L 99 02/07/18 16:20 02/07/18 16:20 02/07/18 16:20 02/07/18 16:20 02/07/18 16:20 - Medications Medications: Current Medications Albuterol (Ventolin Hfa 90 Mcg/Actuation (8 G)) 1 puff INH RQ6 PRN PRN Reason: Shortness of Breath Allopurinol (Zyloprim) 300 mg PO DAILY [facility] Last Admin: 02/07/18 09:07 Dose: 300 mg Amlodipine Besylate (Norvasc) 10 mg PO DAILY [facility] Last Admin: 02/07/18 09:06 Dose: 10 mg Atorvastatin Calcium (Lipitor) 20 mg PO HS [facility] Last Admin: 02/06/18 21:33 Dose: 20 mg Clobetasol Propionate (Temovate Cream) 1 applic TOP BID [facility] Last Admin: 02/07/18 09:07 Dose: 1 applic Docusate Sodium (Colace) 100 mg PO BID [facility] Last Admin: 02/07/18 09:04 Dose: 100 mg Enalapril Maleate (Vasotec) 10 mg PO DAILY [facility] Last Admin: 02/07/18 09:07 Dose: 10 mg Enoxaparin Sodium (Lovenox) 40 mg SC DAILY [facility]; Protocol Last Admin: 02/07/18 09:05 Dose: 40 mg Furosemide (Lasix) 20 mg PO BID [facility] Last Admin: 02/07/18 09:05 Dose: 20 mg Cefazolin Sodium 1 gm/ Sodium (Chloride) 100 mls @ 100 mls/hr IVPB Q8 [facility] Last Admin: 02/07/18 09:04 Dose: 100 mls/hr Metoprolol Tartrate (Lopressor) 25 mg PO Q12 [facility] Last Admin: 02/07/18 09:05 Dose: 25 mg Pantoprazole Sodium (Protonix Ec Tab) 40 mg PO DAILY [facility] Last Admin: 02/07/18 09:06 Dose: 40 mg Potassium Chloride (K-Dur 20 Meq Er Tab) 20 meq PO BID [facility] Last Admin: 11/11/18 09:04 Dose: 20 meq Pyridostigmine [place] (Mestinon Tab) 30 mg PO TID [facility] Last Admin: 02/07/18 13:04 Dose: 30 mg Fluticasone/Salmeterol (Advair Diskus 250/50) 1 puff IH Q12 [facility] Last Admin: 02/07/18 09:03 Dose: 1 puff - Labs Labs: 02/07/18 05:30 02/07/18 05:30 - Respiratory Exam Respiratory Exam: NORMAL BREATHING PATTERN - Cardiovascular Exam Cardiovascular Exam: REGULAR RHYTHM - GI/Abdominal Exam GI & Abdominal Exam: Normal Bowel Sounds Assessment and Plan - Assessment and Plan (Free Text) Assessment: Deconditioning unsteady gait PT Physiatry Illeus large bowel etiol? S/P Colonoscopy decompression As per GI Hx Low back surgery (Severe Spinal Stenosis) Post operative illeus Hypokalemia 2 to GI?? K+ suppl Hyponatremia 2 to fluid overload Hyperkalemia etiol?? Hold ARB Kaexylate Urine lytes Nephrology consult COPD Smoker Pleural effusion steroids inhalers O2 Pulmonary CHF Afib S/P TAVR Diuretics Lovenox Cardiology ?? outpt anticoagulation Bilat Lower ext edema/ cellulitis ID [id number] podiatry HTN Prediabetes
--- NOTE | 2018-02-07 21:41 | CP.PCM.PN ---
Subjective - Date & Time of Evaluation Date of Evaluation: 02/07/18 Time of Evaluation: 09:30 - Subjective Subjective: Patient having soft pasty stools Objective - Vital Signs/Intake and Output Vital Signs (last 24 hours): Temp Pulse Resp BP Pulse Ox 97.5 F L 77 20 121/57 L 94 L 02/07/18 21:35 02/07/18 21:35 02/07/18 21:35 02/07/18 21:35 02/07/18 21:35 - Medications Medications: Current Medications Albuterol (Ventolin Hfa 90 Mcg/Actuation (8 G)) 1 puff INH RQ6 PRN PRN Reason: Shortness of Breath Allopurinol (Zyloprim) 300 mg PO DAILY [facility] Last Admin: 02/07/18 09:07 Dose: 300 mg Amlodipine Besylate (Norvasc) 10 mg PO DAILY [facility] Last Admin: 02/07/18 09:06 Dose: 10 mg Atorvastatin Calcium (Lipitor) 20 mg PO HS [facility] Last Admin: 02/07/18 21:28 Dose: 20 mg Clobetasol Propionate (Temovate Cream) 1 applic TOP BID [facility] Last Admin: 02/07/18 16:33 Dose: 1 applic Docusate Sodium (Colace) 100 mg PO BID [facility] Last Admin: 02/07/18 16:32 Dose: 100 mg Enalapril Maleate (Vasotec) 10 mg PO DAILY [facility] Last Admin: 02/07/18 09:07 Dose: 10 mg Enoxaparin Sodium (Lovenox) 40 mg SC DAILY [facility]; Protocol Last Admin: 02/07/18 09:05 Dose: 40 mg Furosemide (Lasix) 20 mg PO BID [facility] Last Admin: 02/07/18 16:32 Dose: 20 mg Cefazolin Sodium 1 gm/ Sodium (Chloride) 100 mls @ 100 mls/hr IVPB Q8 [facility] Last Admin: 02/07/18 16:31 Dose: 100 mls/hr Metoprolol Tartrate (Lopressor) 25 mg PO Q12 [facility] Last Admin: 02/07/18 21:28 Dose: 25 mg Pantoprazole Sodium (Protonix Ec Tab) 40 mg PO DAILY [facility] Last Admin: 02/07/18 09:06 Dose: 40 mg Potassium Chloride (K-Dur 20 Meq Er Tab) 20 meq PO BID [facility] Last Admin: 02/07/18 16:32 Dose: 20 meq Pyridostigmine [place] (Mestinon Tab) 30 mg PO TID [facility] Last Admin: 02/07/18 16:33 Dose: 30 mg Fluticasone/Salmeterol (Advair Diskus 250/50) 1 puff IH Q12 [facility] Last Admin: 02/07/18 21:27 Dose: 1 puff - Labs Labs: 02/07/18 05:30 02/07/18 05:30 - Head Exam Head Exam: ATRAUMATIC - Eye Exam Eye Exam: EOMI, Normal appearance Pupil Exam: PERRL - ENT Exam ENT Exam: Mucous Membranes Moist - Neck Exam Neck Exam: Full ROM - Respiratory Exam Respiratory Exam: Clear to Ausculation Bilateral - Cardiovascular Exam Cardiovascular Exam: REGULAR RHYTHM, +S1, +S2 - GI/Abdominal Exam GI & Abdominal Exam: Soft. absent: Tenderness Additional comments: Less distended today. Encourage ambulation.
[2018-02-08] MEDS: ceFAZolin 1 GM in Sodium Chloride 0.9% 100 ML IVPB SCH ×3 (01:19→16:19)
[2018-02-08] MEDS: Enoxaparin 40 mg Syringe SC SCH (08:11)
[2018-02-08] MEDS: Fluticasone-Salmeterol 250-50mcg Diskus IH SCH ×2 (08:11→20:22)
[2018-02-08] MEDS: Potassium Chloride 20 mEq ER Tab PO SCH ×2 (08:12→16:20)
[2018-02-08] MEDS: Pantoprazole 40 mg EC Tab PO SCH (08:14)
--- NOTE | 2018-02-08 09:11 | CP.PCM.PN ---
Subjective - Date & Time of Evaluation Date of Evaluation: 02/08/18 Time of Evaluation: 09:10 - Subjective Subjective: patient is stable Not in any distress Vital signs stable Objective - Vital Signs/Intake and Output Vital Signs (last 24 hours): Temp Pulse Resp BP Pulse Ox 98.4 F 74 18 129/73 97 02/08/18 07:46 02/08/18 08:15 02/08/18 07:46 02/08/18 08:15 02/08/18 07:46 - Medications Medications: Current Medications Albuterol (Ventolin Hfa 90 Mcg/Actuation (8 G)) 1 puff INH RQ6 PRN PRN Reason: Shortness of Breath Allopurinol (Zyloprim) 300 mg PO DAILY [facility] Last Admin: 02/08/18 08:14 Dose: 300 mg Amlodipine Besylate (Norvasc) 10 mg PO DAILY [facility] Last Admin: 02/08/18 08:15 Dose: 10 mg Atorvastatin Calcium (Lipitor) 20 mg PO HS [facility] Last Admin: 02/07/18 21:28 Dose: 20 mg Clobetasol Propionate (Temovate Cream) 1 applic TOP BID [facility] Last Admin: 02/08/18 08:13 Dose: 1 applic Docusate Sodium (Colace) 100 mg PO BID [facility] Last Admin: 02/08/18 08:12 Dose: 100 mg Enalapril Maleate (Vasotec) 10 mg PO DAILY [facility] Last Admin: 02/08/18 08:13 Dose: 10 mg Enoxaparin Sodium (Lovenox) 40 mg SC DAILY [facility]; Protocol Last Admin: 02/08/18 08:11 Dose: 40 mg Furosemide (Lasix) 20 mg PO BID [facility] Last Admin: 02/08/18 08:14 Dose: 20 mg Cefazolin Sodium 1 gm/ Sodium (Chloride) 100 mls @ 100 mls/hr IVPB Q8 [facility] Last Admin: 02/08/18 08:10 Dose: 100 mls/hr Metoprolol Tartrate (Lopressor) 25 mg PO Q12 [facility] Last Admin: 02/08/18 08:14 Dose: 25 mg Pantoprazole Sodium (Protonix Ec Tab) 40 mg PO DAILY [facility] Last Admin: 02/08/18 08:14 Dose: 40 mg Potassium Chloride (K-Dur 20 Meq Er Tab) 20 meq PO BID [facility] Last Admin: 02/08/18 08:12 Dose: 20 meq Pyridostigmine [place] (Mestinon Tab) 30 mg PO TID [facility] Last Admin: 02/08/18 08:13 Dose: 30 mg Fluticasone/Salmeterol (Advair Diskus 250/50) 1 puff IH Q12 [facility] Last Admin: 02/08/18 08:11 Dose: 1 puff - Labs Labs: 02/07/18 05:30 02/07/18 05:30 - Constitutional Appears: No Acute Distress - Eye Exam Eye Exam: Conjunctival injection - ENT Exam ENT Exam: Mucous Membranes Moist - Cardiovascular Exam Cardiovascular Exam: absent: Gallop, JVD, Rubs - GI/Abdominal Exam GI & Abdominal Exam: Soft, Normal Bowel Sounds - Extremities Exam Extremities Exam: absent: Calf Tenderness - Back Exam Back Exam: absent: CVA tenderness (L), CVA tenderness (R) - Neurological Exam Neurological Exam: Alert - Psychiatric Exam Psychiatric exam: Normal Affect - Skin Skin Exam: absent: Cyanosis Assessment and Plan - Assessment and Plan (Free Text) Assessment: hypervolemic hyponatremia likely fluid overload and diastolic CHF exacerbation: improved hyperkalemia due to impaired distal tubule sodium delivery as evident by urine Na <5 : RESOLVED Hypokalemia now HTN, COPD CHF s/p TAVR Obesity leg cellulitis plan: Cr stable continue to monitor bp controlled. continue with enalapril continue with lasix 20 mg bid. low Na diet glycemic control supplemented KDUR 20 bid while on lasix management of COPD as per primary team
--- NOTE | 2018-02-08 15:01 | CP.PCM.PN ---
Subjective - Date & Time of Evaluation Date of Evaluation: 02/08/18 Time of Evaluation: 14:58 - Subjective Subjective: GI Note for Dr. Monge 87M seen and examined at bedside. Patient currently on the comode moving his bowel. Denies pain, nausea, vomiting. He is tolerating diet. Objective - Vital Signs/Intake and Output Vital Signs (last 24 hours): Temp Pulse Resp BP Pulse Ox 98.4 F 74 18 129/73 97 02/08/18 07:46 02/08/18 08:15 02/08/18 07:46 02/08/18 08:15 02/08/18 07:46 - Medications Medications: Current Medications Albuterol (Ventolin Hfa 90 Mcg/Actuation (8 G)) 1 puff INH RQ6 PRN PRN Reason: Shortness of Breath Allopurinol (Zyloprim) 300 mg PO DAILY [facility] Last Admin: 02/08/18 08:14 Dose: 300 mg Amlodipine Besylate (Norvasc) 10 mg PO DAILY [facility] Last Admin: 02/08/18 08:15 Dose: 10 mg Atorvastatin Calcium (Lipitor) 20 mg PO HS [facility] Last Admin: 02/07/18 21:28 Dose: 20 mg Clobetasol Propionate (Temovate Cream) 1 applic TOP BID [facility] Last Admin: 02/08/18 08:13 Dose: 1 applic Docusate Sodium (Colace) 100 mg PO BID [facility] Last Admin: 02/08/18 08:12 Dose: 100 mg Enalapril Maleate (Vasotec) 10 mg PO DAILY [facility] Last Admin: 02/08/18 08:13 Dose: 10 mg Enoxaparin Sodium (Lovenox) 40 mg SC DAILY [facility]; Protocol Last Admin: 02/08/18 08:11 Dose: 40 mg Furosemide (Lasix) 20 mg PO BID [facility] Last Admin: 02/08/18 08:14 Dose: 20 mg Cefazolin Sodium 1 gm/ Sodium (Chloride) 100 mls @ 100 mls/hr IVPB Q8 [facility] Last Admin: 02/08/18 08:10 Dose: 100 mls/hr Metoprolol Tartrate (Lopressor) 25 mg PO Q12 [facility] Last Admin: 02/08/18 08:14 Dose: 25 mg Pantoprazole Sodium (Protonix Ec Tab) 40 mg PO DAILY [facility] Last Admin: 02/08/18 08:14 Dose: 40 mg Potassium Chloride (K-Dur 20 Meq Er Tab) 20 meq PO BID [facility] Last Admin: 02/08/18 08:12 Dose: 20 meq Pyridostigmine [place] (Mestinon Tab) 30 mg PO TID [facility] Last Admin: 02/08/18 12:12 Dose: 30 mg Fluticasone/Salmeterol (Advair Diskus 250/50) 1 puff IH Q12 [facility] Last Admin: 02/08/18 08:11 Dose: 1 puff - Labs Labs: 02/07/18 05:30 02/07/18 05:30 - Constitutional Appears: Non-toxic, No Acute Distress - Respiratory Exam Respiratory Exam: Clear to Ausculation Bilateral, NORMAL BREATHING PATTERN - Cardiovascular Exam Cardiovascular Exam: REGULAR RHYTHM, +S1, +S2 - GI/Abdominal Exam GI & Abdominal Exam: Soft. absent: Distended, Firm, Guarding, Rigid, Tenderness, Rebound Assessment and Plan - Assessment and Plan (Free Text) Assessment: 87M with resolved abdominal distention, colonic ileus resolved Plan: - continue diet - continue to monitor bowel function - no further intervention at this time Discussed with Dr. Monge
--- NOTE | 2018-02-08 21:08 | CP.PCM.PN ---
Subjective - Date & Time of Evaluation Date of Evaluation: 02/08/18 Time of Evaluation: 22:22 - Subjective Subjective: Doing well Objective - Vital Signs/Intake and Output Vital Signs (last 24 hours): Temp Pulse Resp BP Pulse Ox 97.7 F 79 20 110/67 95 02/08/18 20:53 02/08/18 20:53 02/08/18 20:53 02/08/18 20:53 02/08/18 20:53 - Medications Medications: Current Medications Albuterol (Ventolin Hfa 90 Mcg/Actuation (8 G)) 1 puff INH RQ6 PRN PRN Reason: Shortness of Breath Allopurinol (Zyloprim) 300 mg PO DAILY [facility] Last Admin: 02/08/18 08:14 Dose: 300 mg Amlodipine Besylate (Norvasc) 10 mg PO DAILY [facility] Last Admin: 02/08/18 08:15 Dose: 10 mg Atorvastatin Calcium (Lipitor) 20 mg PO HS [facility] Last Admin: 02/07/18 21:28 Dose: 20 mg Clobetasol Propionate (Temovate Cream) 1 applic TOP BID [facility] Last Admin: 02/08/18 16:26 Dose: 1 applic Docusate Sodium (Colace) 100 mg PO BID [facility] Last Admin: 02/08/18 18:43 Dose: Not Given Enalapril Maleate (Vasotec) 10 mg PO DAILY [facility] Last Admin: 02/08/18 08:13 Dose: 10 mg Enoxaparin Sodium (Lovenox) 40 mg SC DAILY [facility]; Protocol Last Admin: 02/08/18 08:11 Dose: 40 mg Furosemide (Lasix) 20 mg PO BID [facility] Last Admin: 02/08/18 16:20 Dose: 20 mg Cefazolin Sodium 1 gm/ Sodium (Chloride) 100 mls @ 100 mls/hr IVPB Q8 [facility] Last Admin: 02/08/18 16:19 Dose: 100 mls/hr Metoprolol Tartrate (Lopressor) 25 mg PO Q12 [facility] Last Admin: 02/08/18 20:20 Dose: 25 mg Pantoprazole Sodium (Protonix Ec Tab) 40 mg PO DAILY [facility] Last Admin: 02/08/18 08:14 Dose: 40 mg Potassium Chloride (K-Dur 20 Meq Er Tab) 20 meq PO BID [facility] Last Admin: 02/08/18 16:20 Dose: 20 meq Pyridostigmine [place] (Mestinon Tab) 30 mg PO TID [facility] Last Admin: 02/08/18 16:26 Dose: 30 mg Fluticasone/Salmeterol (Advair Diskus 250/50) 1 puff IH Q12 [facility] Last Admin: 02/08/18 20:22 Dose: 1 puff - Labs Labs: 02/07/18 05:30 02/07/18 05:30 - Respiratory Exam Respiratory Exam: NORMAL BREATHING PATTERN - Cardiovascular Exam Cardiovascular Exam: REGULAR RHYTHM - GI/Abdominal Exam GI & Abdominal Exam: Normal Bowel Sounds Assessment and Plan - Assessment and Plan (Free Text) Assessment: Deconditioning unsteady gait PT Physiatry Illeus large bowel etiol? S/P Colonoscopy decompression As per GI Hx Low back surgery (Severe Spinal Stenosis) Post operative illeus Hypokalemia 2 to GI?? K+ suppl Hyponatremia 2 to fluid overload Hyperkalemia etiol?? Hold ARB Kaexylate Urine lytes Nephrology consult COPD Smoker Pleural effusion steroids inhalers O2 Pulmonary CHF Afib S/P TAVR Diuretics Lovenox Cardiology ?? outpt anticoagulation Bilat Lower ext edema/ cellulitis ID [id number] podiatry HTN Prediabetes
[2018-02-09] MEDS: ceFAZolin 1 GM in Sodium Chloride 0.9% 100 ML IVPB SCH ×3 (00:21→16:06)
[2018-02-09 05:58] LABS: HEMOGLOBIN 11.9 g/dL (12.0-18.0); MEAN CELL VOLUME 99.5 fl (80.0-94.0); MEAN CORPUSCULAR HGB CONC 32.2 g/dL (33.0-37.0); RBC 3.7 Mil/uL (4.40-5.90); RED CELL DISTRIBUTION WIDTH 15.1 % (11.5-14.5); WHITE BLOOD COUNT 6.6 K/uL (4.8-10.8)
[2018-02-09 06:08] LABS: ALB/GLOB RATIO 1.2 (1.0-2.1); ALBUMIN 3.2 g/dL (3.5-5.0); ALT/SGPT 32 U/L (21-72); AST/SGOT 26 U/L (17-59); BLOOD UREA NITROGEN 11 mg/dl (9-20); CALCIUM 8.1 mg/dL (8.4-10.2); GFR NON-AFRICAN AMERICAN > 60
[2018-02-09] MEDS: Fluticasone-Salmeterol 250-50mcg Diskus IH SCH ×2 (08:16→20:21)
[2018-02-09] MEDS: Potassium Chloride 20 mEq ER Tab PO SCH ×2 (08:17→16:05)
[2018-02-09] MEDS: Enoxaparin 40 mg Syringe SC SCH (08:18)
[2018-02-09] MEDS: Pantoprazole 40 mg EC Tab PO SCH (08:18)
--- NOTE | 2018-02-09 11:14 | CP.PCM.PN ---
Subjective - Date & Time of Evaluation Date of Evaluation: 02/09/18 Time of Evaluation: 11:13 - Subjective Subjective: patient is stabl Vital sign noted Objective - Vital Signs/Intake and Output Vital Signs (last 24 hours): Temp Pulse Resp BP Pulse Ox 97.1 F L 82 20 120/65 93 L 02/09/18 08:08 02/09/18 08:08 02/09/18 08:08 02/09/18 08:17 02/09/18 08:08 - Medications Medications: Current Medications Albuterol (Ventolin Hfa 90 Mcg/Actuation (8 G)) 1 puff INH RQ6 PRN PRN Reason: Shortness of Breath Allopurinol (Zyloprim) 300 mg PO DAILY [facility] Last Admin: 02/09/18 08:18 Dose: 300 mg Amlodipine Besylate (Norvasc) 10 mg PO DAILY [facility] Last Admin: 02/09/18 08:18 Dose: 10 mg Atorvastatin Calcium (Lipitor) 20 mg PO HS [facility] Last Admin: 02/08/18 21:12 Dose: 20 mg Clobetasol Propionate (Temovate Cream) 1 applic TOP BID [facility] Last Admin: 02/09/18 08:18 Dose: 1 applic Docusate Sodium (Colace) 100 mg PO BID [facility] Last Admin: 02/09/18 08:17 Dose: 100 mg Enalapril Maleate (Vasotec) 10 mg PO DAILY [facility] Last Admin: 02/09/18 08:18 Dose: 10 mg Enoxaparin Sodium (Lovenox) 40 mg SC DAILY [facility]; Protocol Last Admin: 02/09/18 08:18 Dose: 40 mg Furosemide (Lasix) 20 mg PO BID [facility] Last Admin: 02/09/18 08:17 Dose: 20 mg Cefazolin Sodium 1 gm/ Sodium (Chloride) 100 mls @ 100 mls/hr IVPB Q8 [facility] Last Admin: 02/09/18 08:16 Dose: 100 mls/hr Metoprolol Tartrate (Lopressor) 25 mg PO Q12 [facility] Last Admin: 02/09/18 08:20 Dose: 25 mg Pantoprazole Sodium (Protonix Ec Tab) 40 mg PO DAILY [facility] Last Admin: 02/09/18 08:18 Dose: 40 mg Potassium Chloride (K-Dur 20 Meq Er Tab) 20 meq PO BID [facility] Last Admin: 02/09/18 08:17 Dose: 20 meq Pyridostigmine [place] (Mestinon Tab) 30 mg PO TID [facility] Last Admin: 02/09/18 08:18 Dose: 30 mg Fluticasone/Salmeterol (Advair Diskus 250/50) 1 puff IH Q12 [facility] Last Admin: 02/09/18 08:16 Dose: 1 puff - Labs Labs: 02/09/18 05:47 02/09/18 05:47 - Constitutional Appears: No Acute Distress - Eye Exam Eye Exam: Conjunctival injection - ENT Exam ENT Exam: Mucous Membranes Moist - Neck Exam Neck Exam: absent: Lymphadenopathy - Respiratory Exam Respiratory Exam: absent: Chest Wall Tenderness - GI/Abdominal Exam GI & Abdominal Exam: Soft, Normal Bowel Sounds. absent: Guarding - Extremities Exam Extremities Exam: absent: Calf Tenderness - Back Exam Back Exam: absent: CVA tenderness (L), CVA tenderness (R) - Neurological Exam Neurological Exam: Alert Assessment and Plan - Assessment and Plan (Free Text) Assessment: hypervolemic hyponatremia . Serum sodium corrected the last serum sodium 138 hyperkalemia due to impaired distal tubule sodium delivery as evident by urine Na <5 : RESOLVED Hypokalemia now HTN, COPD CHF s/p TAVR Obesity leg cellulitis plan: Cr stable continue to monitor bp controlled. continue with enalapril continue with lasix 20 mg bid. low Na diet glycemic control supplemented KDUR 20 bid while on lasix management of COPD as per primary team
--- NOTE | 2018-02-09 18:37 | CP.PCM.PN ---
Subjective - Date & Time of Evaluation Date of Evaluation: 02/09/18 Time of Evaluation: 08:30 - Subjective Subjective: Patient in good spirits Having 2-3 soft BMs a day. Objective - Vital Signs/Intake and Output Vital Signs (last 24 hours): Temp Pulse Resp BP Pulse Ox 98.1 F 72 20 111/53 L 95 02/09/18 15:57 02/09/18 15:57 02/09/18 15:57 02/09/18 16:05 02/09/18 15:57 - Medications Medications: Current Medications Albuterol (Ventolin Hfa 90 Mcg/Actuation (8 G)) 1 puff INH RQ6 PRN PRN Reason: Shortness of Breath Allopurinol (Zyloprim) 300 mg PO DAILY [facility] Last Admin: 02/09/18 08:18 Dose: 300 mg Amlodipine Besylate (Norvasc) 10 mg PO DAILY [facility] Last Admin: 02/09/18 08:18 Dose: 10 mg Atorvastatin Calcium (Lipitor) 20 mg PO HS [facility] Last Admin: 02/08/18 21:12 Dose: 20 mg Clobetasol Propionate (Temovate Cream) 1 applic TOP BID [facility] Last Admin: 02/09/18 16:05 Dose: 1 applic Docusate Sodium (Colace) 100 mg PO BID [facility] Last Admin: 02/09/18 16:05 Dose: 100 mg Enalapril Maleate (Vasotec) 10 mg PO DAILY [facility] Last Admin: 02/09/18 08:18 Dose: 10 mg Enoxaparin Sodium (Lovenox) 40 mg SC DAILY [facility]; Protocol Last Admin: 02/09/18 08:18 Dose: 40 mg Furosemide (Lasix) 20 mg PO BID [facility] Last Admin: 02/09/18 16:05 Dose: 20 mg Cefazolin Sodium 1 gm/ Sodium (Chloride) 100 mls @ 100 mls/hr IVPB Q8 [facility] Last Admin: 02/09/18 16:06 Dose: 100 mls/hr Metoprolol Tartrate (Lopressor) 25 mg PO Q12 [facility] Last Admin: 02/09/18 08:20 Dose: 25 mg Pantoprazole Sodium (Protonix Ec Tab) 40 mg PO DAILY [facility] Last Admin: 02/09/18 08:18 Dose: 40 mg Potassium Chloride (K-Dur 20 Meq Er Tab) 20 meq PO BID [facility] Last Admin: 02/09/18 16:05 Dose: 20 meq Pyridostigmine [place] (Mestinon Tab) 30 mg PO TID [facility] Last Admin: 02/09/18 16:05 Dose: 30 mg Fluticasone/Salmeterol (Advair Diskus 250/50) 1 puff IH Q12 [facility] Last Admin: 02/09/18 08:16 Dose: 1 puff - Labs Labs: 02/09/18 05:47 02/09/18 05:47 - Head Exam Head Exam: ATRAUMATIC - Eye Exam Eye Exam: Normal appearance - ENT Exam ENT Exam: Mucous Membranes Moist - Neck Exam Neck Exam: Normal Inspection - Respiratory Exam Respiratory Exam: Clear to Ausculation Bilateral - Cardiovascular Exam Cardiovascular Exam: REGULAR RHYTHM - GI/Abdominal Exam GI & Abdominal Exam: Soft, Normal Bowel Sounds. absent: Tenderness Assessment and Plan (1) Abdominal distention Assessment & Plan: Abdomen continues to be soft and patient having regular BMs. Probably aided bi increasing physical activity Status: Acute
--- NOTE | 2018-02-09 20:22 | CP.PCM.PN ---
Subjective - Date & Time of Evaluation Date of Evaluation: 02/09/18 Time of Evaluation: 22:22 - Subjective Subjective: Doing well Objective - Vital Signs/Intake and Output Vital Signs (last 24 hours): Temp Pulse Resp BP Pulse Ox 97.3 F L 70 20 137/78 95 02/09/18 19:49 02/09/18 19:49 02/09/18 19:49 02/09/18 19:49 02/09/18 19:49 - Medications Medications: Current Medications Albuterol (Ventolin Hfa 90 Mcg/Actuation (8 G)) 1 puff INH RQ6 PRN PRN Reason: Shortness of Breath Allopurinol (Zyloprim) 300 mg PO DAILY [facility] Last Admin: 02/09/18 08:18 Dose: 300 mg Amlodipine Besylate (Norvasc) 10 mg PO DAILY [facility] Last Admin: 02/09/18 08:18 Dose: 10 mg Atorvastatin Calcium (Lipitor) 20 mg PO HS [facility] Last Admin: 02/08/18 21:12 Dose: 20 mg Clobetasol Propionate (Temovate Cream) 1 applic TOP BID [facility] Last Admin: 02/09/18 16:05 Dose: 1 applic Docusate Sodium (Colace) 100 mg PO BID [facility] Last Admin: 02/09/18 16:05 Dose: 100 mg Enalapril Maleate (Vasotec) 10 mg PO DAILY [facility] Last Admin: 02/09/18 08:18 Dose: 10 mg Enoxaparin Sodium (Lovenox) 40 mg SC DAILY [facility]; Protocol Last Admin: 02/09/18 08:18 Dose: 40 mg Furosemide (Lasix) 20 mg PO BID [facility] Last Admin: 02/09/18 16:05 Dose: 20 mg Cefazolin Sodium 1 gm/ Sodium (Chloride) 100 mls @ 100 mls/hr IVPB Q8 [facility] Last Admin: 02/09/18 16:06 Dose: 100 mls/hr Metoprolol Tartrate (Lopressor) 25 mg PO Q12 [facility] Last Admin: 02/09/18 08:20 Dose: 25 mg Pantoprazole Sodium (Protonix Ec Tab) 40 mg PO DAILY [facility] Last Admin: 02/09/18 08:18 Dose: 40 mg Potassium Chloride (K-Dur 20 Meq Er Tab) 20 meq PO BID [facility] Last Admin: 02/09/18 16:05 Dose: 20 meq Pyridostigmine [place] (Mestinon Tab) 30 mg PO TID [facility] Last Admin: 02/09/18 16:05 Dose: 30 mg Fluticasone/Salmeterol (Advair Diskus 250/50) 1 puff IH Q12 [facility] Last Admin: 02/09/18 08:16 Dose: 1 puff - Labs Labs: 02/09/18 05:47 02/09/18 05:47 - Respiratory Exam Respiratory Exam: NORMAL BREATHING PATTERN - Cardiovascular Exam Cardiovascular Exam: REGULAR RHYTHM - GI/Abdominal Exam GI & Abdominal Exam: Normal Bowel Sounds Assessment and Plan - Assessment and Plan (Free Text) Assessment: Deconditioning unsteady gait PT Physiatry Illeus large bowel etiol? S/P Colonoscopy decompression As per GI Hx Low back surgery (Severe Spinal Stenosis) Post operative illeus Hypokalemia 2 to GI?? K+ suppl Hyponatremia 2 to fluid overload Hyperkalemia etiol?? Hold ARB Kaexylate Urine lytes Nephrology consult COPD Smoker Pleural effusion steroids inhalers O2 Pulmonary CHF Afib S/P TAVR Diuretics Lovenox Cardiology ?? outpt anticoagulation Bilat Lower ext edema/ cellulitis ID [id number] podiatry HTN Prediabetes
[2018-02-10] MEDS: ceFAZolin 1 GM in Sodium Chloride 0.9% 100 ML IVPB SCH ×3 (00:24→16:14)
[2018-02-10] MEDS: Fluticasone-Salmeterol 250-50mcg Diskus IH SCH ×2 (08:35→21:36)
[2018-02-10] MEDS: Enoxaparin 40 mg Syringe SC SCH (08:36)
[2018-02-10] MEDS: Potassium Chloride 20 mEq ER Tab PO SCH ×2 (08:38→16:17)
[2018-02-10] MEDS: Pantoprazole 40 mg EC Tab PO SCH (08:39)
--- NOTE | 2018-02-10 09:24 | CP.PCM.PN ---
Subjective - Date & Time of Evaluation Date of Evaluation: 02/10/18 Time of Evaluation: 09:23 - Subjective Subjective: The patient was seen on rounds in the transitional care unit. He is lying in bed comfortably and offers no complaints of abdominal discomfort. He has been eating and moving his bowels regularly. He has been able to participate in physical therapy and is progressing slowly. He offers no complaint of cough or shortness of breath. Objective - Vital Signs/Intake and Output Vital Signs (last 24 hours): Temp Pulse Resp BP Pulse Ox 97.7 F 67 18 121/72 98 02/10/18 08:13 02/10/18 08:13 02/10/18 08:13 02/10/18 08:39 02/10/18 08:13 - Medications Medications: Current Medications Albuterol (Ventolin Hfa 90 Mcg/Actuation (8 G)) 1 puff INH RQ6 PRN PRN Reason: Shortness of Breath Allopurinol (Zyloprim) 300 mg PO DAILY [facility] Last Admin: 02/10/18 08:39 Dose: 300 mg Amlodipine Besylate (Norvasc) 10 mg PO DAILY [facility] Last Admin: 02/10/18 08:39 Dose: 10 mg Atorvastatin Calcium (Lipitor) 20 mg PO HS [facility] Last Admin: 02/09/18 21:02 Dose: 20 mg Clobetasol Propionate (Temovate Cream) 1 applic TOP BID [facility] Last Admin: 02/10/18 08:36 Dose: 1 applic Docusate Sodium (Colace) 100 mg PO BID [facility] Last Admin: 02/10/18 08:38 Dose: 100 mg Enalapril Maleate (Vasotec) 10 mg PO DAILY [facility] Last Admin: 02/10/18 08:39 Dose: 10 mg Enoxaparin Sodium (Lovenox) 40 mg SC DAILY [facility]; Protocol Last Admin: 02/10/18 08:36 Dose: 40 mg Furosemide (Lasix) 20 mg PO BID [facility] Last Admin: 02/10/18 08:39 Dose: 20 mg Cefazolin Sodium 1 gm/ Sodium (Chloride) 100 mls @ 100 mls/hr IVPB Q8 [facility] Last Admin: 02/10/18 08:36 Dose: 100 mls/hr Metoprolol Tartrate (Lopressor) 25 mg PO Q12 [facility] Last Admin: 02/10/18 08:39 Dose: 25 mg Pantoprazole Sodium (Protonix Ec Tab) 40 mg PO DAILY [facility] Last Admin: 02/10/18 08:39 Dose: 40 mg Potassium Chloride (K-Dur 20 Meq Er Tab) 20 meq PO BID [facility] Last Admin: 02/10/18 08:38 Dose: 20 meq Pyridostigmine [place] (Mestinon Tab) 30 mg PO TID [facility] Last Admin: 02/10/18 08:39 Dose: 30 mg Fluticasone/Salmeterol (Advair Diskus 250/50) 1 puff IH Q12 [facility] Last Admin: 02/10/18 08:35 Dose: 1 puff - Labs Labs: 02/09/18 05:47 02/09/18 05:47
--- NOTE | 2018-02-10 13:40 | CP.PCM.PN ---
Subjective - Date & Time of Evaluation Date of Evaluation: 02/10/18 Time of Evaluation: 13:38 - Subjective Subjective: GI note for Dr. Monge 87M seen and examined at bedside. Patient doing well, tolerating diet, having BMs. No acute distress. Objective - Vital Signs/Intake and Output Vital Signs (last 24 hours): Temp Pulse Resp BP Pulse Ox 97.7 F 67 18 121/72 98 02/10/18 08:13 02/10/18 08:13 02/10/18 08:13 02/10/18 08:39 02/10/18 08:13 - Medications Medications: Current Medications Albuterol (Ventolin Hfa 90 Mcg/Actuation (8 G)) 1 puff INH RQ6 PRN PRN Reason: Shortness of Breath Allopurinol (Zyloprim) 300 mg PO DAILY [facility] Last Admin: 02/10/18 08:39 Dose: 300 mg Amlodipine Besylate (Norvasc) 10 mg PO DAILY [facility] Last Admin: 02/10/18 08:39 Dose: 10 mg Atorvastatin Calcium (Lipitor) 20 mg PO HS [facility] Last Admin: 02/09/18 21:02 Dose: 20 mg Clobetasol Propionate (Temovate Cream) 1 applic TOP BID [facility] Last Admin: 02/10/18 08:36 Dose: 1 applic Docusate Sodium (Colace) 100 mg PO BID [facility] Last Admin: 02/10/18 08:38 Dose: 100 mg Enalapril Maleate (Vasotec) 10 mg PO DAILY [facility] Last Admin: 02/10/18 08:39 Dose: 10 mg Enoxaparin Sodium (Lovenox) 40 mg SC DAILY [facility]; Protocol Last Admin: 02/10/18 08:36 Dose: 40 mg Furosemide (Lasix) 20 mg PO BID [facility] Last Admin: 02/10/18 08:39 Dose: 20 mg Cefazolin Sodium 1 gm/ Sodium (Chloride) 100 mls @ 100 mls/hr IVPB Q8 [facility] Last Admin: 02/10/18 08:36 Dose: 100 mls/hr Metoprolol Tartrate (Lopressor) 25 mg PO Q12 [facility] Last Admin: 02/10/18 08:39 Dose: 25 mg Pantoprazole Sodium (Protonix Ec Tab) 40 mg PO DAILY [facility] Last Admin: 02/10/18 08:39 Dose: 40 mg Potassium Chloride (K-Dur 20 Meq Er Tab) 20 meq PO BID [facility] Last Admin: 02/10/18 08:38 Dose: 20 meq Pyridostigmine [place] (Mestinon Tab) 30 mg PO TID [facility] Last Admin: 02/10/18 12:38 Dose: 30 mg Fluticasone/Salmeterol (Advair Diskus 250/50) 1 puff IH Q12 [facility] Last Admin: 02/10/18 08:35 Dose: 1 puff - Labs Labs: 02/09/18 05:47 02/09/18 05:47 - Constitutional Appears: Non-toxic, No Acute Distress - Respiratory Exam Respiratory Exam: Clear to Ausculation Bilateral, NORMAL BREATHING PATTERN - Cardiovascular Exam Cardiovascular Exam: REGULAR RHYTHM, +S1, +S2 - GI/Abdominal Exam GI & Abdominal Exam: Soft. absent: Distended, Firm, Guarding, Rigid, Tenderness, Rebound - Neurological Exam Neurological Exam: Alert, Awake Assessment and Plan - Assessment and Plan (Free Text) Assessment: 87M with resolved colonic ileus Plan: - cont diet - No further GI intervention Further rec discuss with Dr. Monge
[2018-02-10 15:31] VITALS: RESP 20
--- NOTE | 2018-02-10 18:03 | CP.PCM.PN ---
Subjective - Date & Time of Evaluation Date of Evaluation: 02/10/18 Time of Evaluation: 22:22 - Subjective Subjective: Doing well Objective - Vital Signs/Intake and Output Vital Signs (last 24 hours): Temp Pulse Resp BP Pulse Ox 98.2 F 61 20 104/59 L 95 02/10/18 15:30 02/10/18 15:30 02/10/18 15:30 02/10/18 16:16 02/10/18 15:30 - Medications Medications: Current Medications Albuterol (Ventolin Hfa 90 Mcg/Actuation (8 G)) 1 puff INH RQ6 PRN PRN Reason: Shortness of Breath Allopurinol (Zyloprim) 300 mg PO DAILY [facility] Last Admin: 02/10/18 08:39 Dose: 300 mg Amlodipine Besylate (Norvasc) 10 mg PO DAILY [facility] Last Admin: 02/10/18 08:39 Dose: 10 mg Atorvastatin Calcium (Lipitor) 20 mg PO HS [facility] Last Admin: 02/09/18 21:02 Dose: 20 mg Clobetasol Propionate (Temovate Cream) 1 applic TOP BID [facility] Last Admin: 02/10/18 16:15 Dose: 1 applic Docusate Sodium (Colace) 100 mg PO BID [facility] Last Admin: 02/10/18 16:17 Dose: 100 mg Enalapril Maleate (Vasotec) 10 mg PO DAILY [facility] Last Admin: 02/10/18 08:39 Dose: 10 mg Enoxaparin Sodium (Lovenox) 40 mg SC DAILY [facility]; Protocol Last Admin: 02/10/18 08:36 Dose: 40 mg Furosemide (Lasix) 20 mg PO BID [facility] Last Admin: 02/10/18 16:16 Dose: 20 mg Cefazolin Sodium 1 gm/ Sodium (Chloride) 100 mls @ 100 mls/hr IVPB Q8 [facility] Last Admin: 02/10/18 16:14 Dose: 100 mls/hr Metoprolol Tartrate (Lopressor) 25 mg PO Q12 [facility] Last Admin: 02/10/18 08:39 Dose: 25 mg Pantoprazole Sodium (Protonix Ec Tab) 40 mg PO DAILY [facility] Last Admin: 02/10/18 08:39 Dose: 40 mg Potassium Chloride (K-Dur 20 Meq Er Tab) 20 meq PO BID [facility] Last Admin: 02/10/18 16:17 Dose: 20 meq Pyridostigmine [place] (Mestinon Tab) 30 mg PO TID [facility] Last Admin: 02/10/18 16:17 Dose: 30 mg Fluticasone/Salmeterol (Advair Diskus 250/50) 1 puff IH Q12 [facility] Last Admin: 02/10/18 08:35 Dose: 1 puff - Labs Labs: 02/09/18 05:47 02/09/18 05:47 - Respiratory Exam Respiratory Exam: NORMAL BREATHING PATTERN - Cardiovascular Exam Cardiovascular Exam: REGULAR RHYTHM - GI/Abdominal Exam GI & Abdominal Exam: Normal Bowel Sounds Assessment and Plan - Assessment and Plan (Free Text) Assessment: Deconditioning unsteady gait PT Physiatry Illeus large bowel etiol? S/P Colonoscopy decompression As per GI Hx Low back surgery (Severe Spinal Stenosis) Post operative illeus CHF Afib S/P TAVR Diuretics Lovenox Cardiology ?? outpt anticoagulation Hypokalemia 2 to GI?? K+ suppl Hyponatremia 2 to fluid overload Hyperkalemia etiol?? Hold ARB Kaexylate Urine lytes Nephrology consult COPD Smoker Pleural effusion steroids inhalers O2 Pulmonary Bilat Lower ext edema/ cellulitis ID [id number] podiatry HTN Prediabetes
[2018-02-11] MEDS: ceFAZolin 1 GM in Sodium Chloride 0.9% 100 ML IVPB SCH ×3 (01:13→16:49)
[2018-02-11] MEDS: Fluticasone-Salmeterol 250-50mcg Diskus IH SCH ×2 (08:27→21:16)
[2018-02-11] MEDS: Enoxaparin 40 mg Syringe SC SCH (08:27)
[2018-02-11] MEDS: Potassium Chloride 20 mEq ER Tab PO SCH ×2 (08:29→16:50)
[2018-02-11] MEDS: Pantoprazole 40 mg EC Tab PO SCH (08:29)
--- NOTE | 2018-02-11 08:49 | CP.PCM.PN ---
Subjective - Date & Time of Evaluation Date of Evaluation: 02/05/18 Time of Evaluation: 20:00 - Subjective Subjective: General Surgery Consult Note for Dr. Lancaster consulted for colonic ileus, resolved Patient is a Objective - Vital Signs/Intake and Output Vital Signs (last 24 hours): Temp Pulse Resp BP Pulse Ox 97.8 F 73 20 123/69 97 02/11/18 07:59 02/11/18 08:29 02/11/18 07:59 02/11/18 08:29 02/11/18 07:59 - Medications Medications: Current Medications Albuterol (Ventolin Hfa 90 Mcg/Actuation (8 G)) 1 puff INH RQ6 PRN PRN Reason: Shortness of Breath Allopurinol (Zyloprim) 300 mg PO DAILY [facility] Last Admin: 02/11/18 08:30 Dose: 300 mg Amlodipine Besylate (Norvasc) 10 mg PO DAILY [facility] Last Admin: 02/11/18 08:29 Dose: 10 mg Atorvastatin Calcium (Lipitor) 20 mg PO HS [facility] Last Admin: 02/10/18 21:36 Dose: 20 mg Clobetasol Propionate (Temovate Cream) 1 applic TOP BID [facility] Last Admin: 02/11/18 08:27 Dose: 1 applic Docusate Sodium (Colace) 100 mg PO BID [facility] Last Admin: 02/11/18 08:30 Dose: 100 mg Enalapril Maleate (Vasotec) 10 mg PO DAILY [facility] Last Admin: 02/11/18 08:28 Dose: 10 mg Enoxaparin Sodium (Lovenox) 40 mg SC DAILY [facility]; Protocol Last Admin: 02/11/18 08:27 Dose: 40 mg Furosemide (Lasix) 20 mg PO BID [facility] Last Admin: 02/11/18 08:28 Dose: 20 mg Cefazolin Sodium 1 gm/ Sodium (Chloride) 100 mls @ 100 mls/hr IVPB Q8 [facility]; Protocol Metoprolol Tartrate (Lopressor) 25 mg PO Q12 [facility] Last Admin: 02/11/18 08:29 Dose: 25 mg Pantoprazole Sodium (Protonix Ec Tab) 40 mg PO DAILY [facility] Last Admin: 02/11/18 08:29 Dose: 40 mg Potassium Chloride (K-Dur 20 Meq Er Tab) 20 meq PO BID [facility] Last Admin: 11/15/18 08:29 Dose: 20 meq Pyridostigmine [place] (Mestinon Tab) 30 mg PO TID [facility] Last Admin: 02/11/18 08:28 Dose: 30 mg Fluticasone/Salmeterol (Advair Diskus 250/50) 1 puff IH Q12 [facility] Last Admin: 02/11/18 08:27 Dose: 1 puff - Labs Labs: 02/09/18 05:47 02/09/18 05:47
--- NOTE | 2018-02-11 08:54 | CP.PCM.CON ---
History of Present Illness - History of Present Illness History of Present Illness: General Surgery Consult note for Dr. Lancaster Consulted for Colonic Ileus (resolved) Patient is a 87 yr old male with PMH CHF, HTN, HLD, Bronchitis, COPD (noncompliant with home o2), gout who was seen during his hospital admission by us for colonic ileus. The patient was decompressed via colonoscopy by GI and had resolution of his symptoms. Today he states that he is feeling well, passing gas, having BM and denies bloating, nausea and vomiting. Patient is resting comfortably in bed and otherwise denies IRENE, CP, SOB and extremity pain or weakness. PMH: CHF, HTN, HLD, Bronchitis, COPD (noncompliant with home o2), gout PSH:TAVR, lumbar laminectomy 05/17 All: nkda Social: former smoker, 2 drinks per day ETOH, denies illicit drugs Review of Systems - Review of Systems All systems: reviewed and no additional remarkable complaints except (as per HPI) Past Patient History - Past Medical History & Family History Past Medical History?: Yes - Past Social History Smoking Status: Former Smoker - CARDIAC Hx Atrial Fibrillation: Yes (current EKG) Hx Congestive Heart Failure: Yes Hx Hypercholesterolemia: Yes Hx Hypertension: Yes Hx Peripheral Edema: Yes Other/Comment: AO valve replacement - PULMONARY Hx Bronchitis: Yes Hx Chronic Obstructive Pulmonary Disease (COPD): Yes - NEUROLOGICAL Hx Neurological Disorder: No - HEENT Hx HEENT Problems: No - RENAL Hx Chronic Kidney Disease: No - ENDOCRINE/METABOLIC Hx Endocrine Disorders: No - HEMATOLOGICAL/ONCOLOGICAL Hx Blood Disorders: No Hx Human Immunodeficiency Virus (HIV): No - INTEGUMENTARY Other/Comment: skin lesion recently removed from left infra-ocular area - MUSCULOSKELETAL/RHEUMATOLOGICAL Hx Falls: No - GASTROINTESTINAL Hx Gastrointestinal Disorders: No - GENITOURINARY/GYNECOLOGICAL Hx Genitourinary Disorders: No - PSYCHIATRIC Hx Substance Use: No - SURGICAL HISTORY Hx Valve Replacement: Yes (TAVR) Other/Comment: Laminectomy L3-L5 05/15/2017 - ANESTHESIA Hx Anesthesia: Yes Hx Anesthesia Reactions: No Hx Malignant Hyperthermia: No Meds Allergies/Adverse Reactions: Allergies Allergy/AdvReac Type Severity Reaction Status Date / Time No Known Allergies Allergy Verified 02/05/18 16:48 - Medications Medications: Current Medications Albuterol (Ventolin Hfa 90 Mcg/Actuation (8 G)) 1 puff INH RQ6 PRN PRN Reason: Shortness of Breath Allopurinol (Zyloprim) 300 mg PO DAILY [facility] Last Admin: 02/11/18 08:30 Dose: 300 mg Amlodipine Besylate (Norvasc) 10 mg PO DAILY [facility] Last Admin: 02/11/18 08:29 Dose: 10 mg Atorvastatin Calcium (Lipitor) 20 mg PO HS [facility] Last Admin: 02/10/18 21:36 Dose: 20 mg Clobetasol Propionate (Temovate Cream) 1 applic TOP BID [facility] Last Admin: 02/11/18 08:27 Dose: 1 applic Docusate Sodium (Colace) 100 mg PO BID [facility] Last Admin: 02/11/18 08:30 Dose: 100 mg Enalapril Maleate (Vasotec) 10 mg PO DAILY [facility] Last Admin: 02/11/18 08:28 Dose: 10 mg Enoxaparin Sodium (Lovenox) 40 mg SC DAILY [facility]; Protocol Last Admin: 02/11/18 08:27 Dose: 40 mg Furosemide (Lasix) 20 mg PO BID [facility] Last Admin: 02/11/18 08:28 Dose: 20 mg Cefazolin Sodium 1 gm/ Sodium (Chloride) 100 mls @ 100 mls/hr IVPB Q8 [facility]; Protocol Metoprolol Tartrate (Lopressor) 25 mg PO Q12 [facility] Last Admin: 02/11/18 08:29 Dose: 25 mg Pantoprazole Sodium (Protonix Ec Tab) 40 mg PO DAILY [facility] Last Admin: 02/11/18 08:29 Dose: 40 mg Potassium Chloride (K-Dur 20 Meq Er Tab) 20 meq PO BID [facility] Last Admin: 02/11/18 08:29 Dose: 20 meq Pyridostigmine [place] (Mestinon Tab) 30 mg PO TID [facility] Last Admin: 02/11/18 08:28 Dose: 30 mg Fluticasone/Salmeterol (Advair Diskus 250/50) 1 puff IH Q12 [facility] Last Admin: 02/11/18 08:27 Dose: 1 puff Physical Exam - Constitutional Appears: Well, Non-toxic, No Acute Distress - Head Exam Head Exam: ATRAUMATIC, NORMOCEPHALIC - Eye Exam Eye Exam: EOMI - ENT Exam ENT Exam: Mucous Membranes Moist - Respiratory Exam Respiratory Exam: NORMAL BREATHING PATTERN - Cardiovascular Exam Cardiovascular Exam: REGULAR RHYTHM - GI/Abdominal Exam GI & Abdominal Exam: Soft. absent: Distended, Firm, Guarding, Tenderness - Extremities Exam Extremities exam: Positive for: pedal pulses present. Negative for: calf tenderness, pedal edema - Neurological Exam Neurological exam: Alert, Oriented x3 - Psychiatric Exam Psychiatric exam: Normal Affect, Normal Mood - Skin Skin Exam: Dry, Intact (eryhtema on anterior lower legs consistent with cellulitis, improving), Warm Results - Vital Signs Recent Vital Signs: Last Vital Signs Temp 97.8 F 02/11/18 07:59 Pulse 73 02/11/18 08:29 Resp 20 02/11/18 07:59 BP 123/69 02/11/18 08:29 Pulse Ox 97 02/11/18 07:59 - Labs Result Diagrams: 02/09/18 05:47 02/09/18 05:47 Assessment & Plan - Assessment and Plan (Free Text) Assessment: 87 yr old male with resolved colonic ileus Plan: - No general surgery intervention at present time - Continue care as per medical and GI teams - General surgery will sign off - Please re-consult as need - d/w Dr. Tonny Piper, PGY 1 - Date & Time Date: 02/05/18 Time: 20:00
--- NOTE | 2018-02-11 19:56 | CP.PCM.PN ---
Subjective - Date & Time of Evaluation Date of Evaluation: 02/11/18 Time of Evaluation: 10:00 - Subjective Subjective: Having regular bowel movements. No new complaints. Objective - Vital Signs/Intake and Output Vital Signs (last 24 hours): Temp Pulse Resp BP Pulse Ox 97.0 F L 77 20 150/94 H 93 L 02/11/18 19:47 02/11/18 19:47 02/11/18 19:47 02/11/18 19:47 02/11/18 19:47 - Medications Medications: Current Medications Albuterol (Ventolin Hfa 90 Mcg/Actuation (8 G)) 1 puff INH RQ6 PRN PRN Reason: Shortness of Breath Allopurinol (Zyloprim) 300 mg PO DAILY [facility] Last Admin: 02/11/18 08:30 Dose: 300 mg Amlodipine Besylate (Norvasc) 10 mg PO DAILY [facility] Last Admin: 02/11/18 08:29 Dose: 10 mg Atorvastatin Calcium (Lipitor) 20 mg PO HS [facility] Last Admin: 02/10/18 21:36 Dose: 20 mg Clobetasol Propionate (Temovate Cream) 1 applic TOP BID [facility] Last Admin: 02/11/18 16:53 Dose: 1 applic Docusate Sodium (Colace) 100 mg PO BID [facility] Last Admin: 02/11/18 16:51 Dose: 100 mg Enalapril Maleate (Vasotec) 10 mg PO DAILY [facility] Last Admin: 02/11/18 08:28 Dose: 10 mg Furosemide (Lasix) 20 mg PO BID [facility] Last Admin: 02/11/18 16:50 Dose: 20 mg Cefazolin Sodium 1 gm/ Sodium (Chloride) 100 mls @ 100 mls/hr IVPB Q8 [facility]; Pr otocol Last Admin: 02/11/18 16:49 Dose: 100 mls/hr Metoprolol Tartrate (Lopressor) 25 mg PO Q12 [facility] Last Admin: 02/11/18 08:29 Dose: 25 mg Pantoprazole Sodium (Protonix Ec Tab) 40 mg PO DAILY [facility] Last Admin: 02/11/18 08:29 Dose: 40 mg Potassium Chloride (K-Dur 20 Meq Er Tab) 20 meq PO BID [facility] Last Admin: 02/11/18 16:50 Dose: 20 meq Pyridostigmine [place] (Mestinon Tab) 30 mg PO TID [facility] Last Admin: 02/11/18 16:52 Dose: 30 mg Fluticasone/Salmeterol (Advair Diskus 250/50) 1 puff IH Q12 [facility] Last Admin: 02/11/18 08:27 Dose: 1 puff - Labs Labs: 02/09/18 05:47 02/09/18 05:47 - Head Exam Head Exam: ATRAUMATIC - Eye Exam Eye Exam: Normal appearance - ENT Exam ENT Exam: Normal Exam - Respiratory Exam Respiratory Exam: Clear to Ausculation Bilateral - Cardiovascular Exam Cardiovascular Exam: REGULAR RHYTHM, +S1, +S2 - GI/Abdominal Exam GI & Abdominal Exam: Soft, Normal Bowel Sounds Assessment and Plan (1) Abdominal distention Assessment & Plan: Continues to do well. Status: Acute
--- NOTE | 2018-02-11 20:21 | CP.PCM.PN ---
Subjective - Date & Time of Evaluation Date of Evaluation: 02/11/18 Time of Evaluation: 22:22 - Subjective Subjective: Above noted Objective - Vital Signs/Intake and Output Vital Signs (last 24 hours): Temp Pulse Resp BP Pulse Ox 97.0 F L 77 20 150/94 H 93 L 02/11/18 19:47 02/11/18 19:47 02/11/18 19:47 02/11/18 19:47 02/11/18 19:47 - Medications Medications: Current Medications Albuterol (Ventolin Hfa 90 Mcg/Actuation (8 G)) 1 puff INH RQ6 PRN PRN Reason: Shortness of Breath Allopurinol (Zyloprim) 300 mg PO DAILY [facility] Last Admin: 02/11/18 08:30 Dose: 300 mg Amlodipine Besylate (Norvasc) 10 mg PO DAILY [facility] Last Admin: 02/11/18 08:29 Dose: 10 mg Atorvastatin Calcium (Lipitor) 20 mg PO HS [facility] Last Admin: 02/10/18 21:36 Dose: 20 mg Clobetasol Propionate (Temovate Cream) 1 applic TOP BID [facility] Last Admin: 02/11/18 16:53 Dose: 1 applic Docusate Sodium (Colace) 100 mg PO BID [facility] Last Admin: 02/11/18 16:51 Dose: 100 mg Enalapril Maleate (Vasotec) 10 mg PO DAILY [facility] Last Admin: 02/11/18 08:28 Dose: 10 mg Furosemide (Lasix) 20 mg PO BID [facility] Last Admin: 02/11/18 16:50 Dose: 20 mg Cefazolin Sodium 1 gm/ Sodium (Chloride) 100 mls @ 100 mls/hr IVPB Q8 [facility]; Protocol Last Admin: 02/11/18 16:49 Dose: 100 mls/hr Metoprolol Tartrate (Lopressor) 25 mg PO Q12 [facility] Last Admin: 02/11/18 08:29 Dose: 25 mg Pantoprazole Sodium (Protonix Ec Tab) 40 mg PO DAILY [facility] Last Admin: 02/11/18 08:29 Dose: 40 mg Potassium Chloride (K-Dur 20 Meq Er Tab) 20 meq PO BID [facility] Last Admin: 02/11/18 16:50 Dose: 20 meq Pyridostigmine [place] (Mestinon Tab) 30 mg PO TID [facility] Last Admin: 02/11/18 16:52 Dose: 30 mg Fluticasone/Salmeterol (Advair Diskus 250/50) 1 puff IH Q12 [facility] Last Admin: 02/11/18 08:27 Dose: 1 puff - Labs Labs: 02/09/18 05:47 02/09/18 05:47 - Respiratory Exam Respiratory Exam: NORMAL BREATHING PATTERN - Cardiovascular Exam Cardiovascular Exam: REGULAR RHYTHM - GI/Abdominal Exam GI & Abdominal Exam: Normal Bowel Sounds Assessment and Plan - Assessment and Plan (Free Text) Assessment: Deconditioning unsteady gait PT Physiatry Illeus large bowel etiol? S/P Colonoscopy decompression As per GI Hx Low back surgery (Severe Spinal Stenosis) Post operative illeus CHF Afib S/P TAVR Diuretics Lovenox Cardiology ?? outpt anticoagulation Hypokalemia 2 to GI?? K+ suppl Hyponatremia 2 to fluid overload Hyperkalemia etiol?? Hold ARB Kaexylate Urine lytes Nephrology consult COPD Smoker Pleural effusion steroids inhalers O2 Pulmonary Bilat Lower ext edema/ cellulitis ID [id number] podiatry HTN Prediabetes
[2018-02-12] MEDS: ceFAZolin 1 GM in Sodium Chloride 0.9% 100 ML IVPB SCH (00:41)
[2018-02-12] MEDS: Fluticasone-Salmeterol 250-50mcg Diskus IH SCH ×2 (08:28→21:37)
[2018-02-12] MEDS: Potassium Chloride 20 mEq ER Tab PO SCH ×2 (08:30→16:32)
[2018-02-12] MEDS: Pantoprazole 40 mg EC Tab PO SCH (08:32)
[2018-02-12] MEDS: Enoxaparin 40 mg Syringe SC SCH (08:58)
--- NOTE | 2018-02-12 14:34 | CP.PCM.PN ---
Subjective - Date & Time of Evaluation Date of Evaluation: 02/12/18 Time of Evaluation: 14:32 - Subjective Subjective: Progress Note GI- Dr. Monge Patient seen and examined at bedside. No new complaints. Having Regular daily BM. denies f/c/cp/SOB/N/V/D Objective - Vital Signs/Intake and Output Vital Signs (last 24 hours): Temp Pulse Resp BP Pulse Ox 97.0 F L 80 20 147/73 98 02/12/18 08:16 02/12/18 08:33 02/12/18 08:16 02/12/18 08:33 02/12/18 08:16 - Medications Medications: Current Medications Albuterol (Ventolin Hfa 90 Mcg/Actuation (8 G)) 1 puff INH RQ6 PRN PRN Reason: Shortness of Breath Allopurinol (Zyloprim) 300 mg PO DAILY [facility] Last Admin: 02/12/18 08:32 Dose: 300 mg Amlodipine Besylate (Norvasc) 10 mg PO DAILY [facility] Last Admin: 02/12/18 08:33 Dose: 10 mg Atorvastatin Calcium (Lipitor) 20 mg PO HS [facility] Last Admin: 02/11/18 21:17 Dose: 20 mg Clobetasol Propionate (Temovate Cream) 1 applic TOP BID [facility] Last Admin: 02/12/18 08:31 Dose: 1 applic Docusate Sodium (Colace) 100 mg PO BID [facility] Last Admin: 02/12/18 08:30 Dose: 100 mg Enalapril Maleate (Vasotec) 10 mg PO DAILY [facility] Last Admin: 02/12/18 08:33 Dose: 10 mg Enoxaparin Sodium (Lovenox) 40 mg SC DAILY [facility]; Protocol Last Admin: 02/12/18 08:58 Dose: 40 mg Furosemide (Lasix) 20 mg PO BID [facility] Last Admin: 02/12/18 08:33 Dose: 20 mg Metoprolol Tartrate (Lopressor) 25 mg PO Q12 [facility] Last Admin: 02/12/18 08:32 Dose: 25 mg Pantoprazole Sodium (Protonix Ec Tab) 40 mg PO DAILY [facility] Last Admin: 02/12/18 08:32 Dose: 40 mg Potassium Chloride (K-Dur 20 Meq Er Tab) 20 meq PO BID [facility] Last Admin: 02/12/18 08:30 Dose: 20 meq Pyridostigmine [place] (Mestinon Tab) 30 mg PO TID [facility] Last Admin: 02/12/18 13:17 Dose: 30 mg Fluticasone/Salmeterol (Advair Diskus 250/50) 1 puff IH Q12 [facility] Last Admin: 02/12/18 08:28 Dose: 1 puff - Labs Labs: 02/09/18 05:47 02/09/18 05:47 - Constitutional Appears: Non-toxic, No Acute Distress - Head Exam Head Exam: ATRAUMATIC - Eye Exam Eye Exam: EOMI. absent: Scleral icterus - ENT Exam ENT Exam: Mucous Membranes Moist - Respiratory Exam Respiratory Exam: NORMAL BREATHING PATTERN. absent: Accessory Muscle Use, Respiratory Distress - Cardiovascular Exam Cardiovascular Exam: +S1, +S2. absent: Bradycardia, Tachycardia - GI/Abdominal Exam GI & Abdominal Exam: Distended (baseline distendtion), Soft, Normal Bowel Sounds. absent: Firm, Guarding, Rigid, Tenderness - Neurological Exam Neurological Exam: Alert, Awake, Oriented x3 - Psychiatric Exam Psychiatric exam: Normal Affect - Skin Skin Exam: Intact, Warm Assessment and Plan - Assessment and Plan (Free Text) Assessment: 87M w/ hx of ileus Plan: - regular daily BM - continue to monitor - diet as tolerated - discussed w/ Dr. Saleem Germain PGY2
--- NOTE | 2018-02-12 14:47 | CP.PCM.CON ---
History of Present Illness - History of Present Illness History of Present Illness: Dr Madrigal PMR consultation on Marisa Velez born 1930 who has been admitted to [facility] for BRANDY following GI issues. I have seen him in the past for pain and at this point he is doing very well. Denies any pain sit to stand independently without dizziness or hesitation. using a walker in good spirits continue with therapies. Past Patient History - Past Medical History & Family History Past Medical History?: Yes - Past Social History Smoking Status: Former Smoker - CARDIAC Hx Atrial Fibrillation: Yes (current EKG) Hx Congestive Heart Failure: Yes Hx Hypercholesterolemia: Yes Hx Hypertension: Yes Hx Peripheral Edema: Yes Other/Comment: AO valve replacement - PULMONARY Hx Bronchitis: Yes Hx Chronic Obstructive Pulmonary Disease (COPD): Yes - NEUROLOGICAL Hx Neurological Disorder: No - HEENT Hx HEENT Problems: No - RENAL Hx Chronic Kidney Disease: No - ENDOCRINE/METABOLIC Hx Endocrine Disorders: No - HEMATOLOGICAL/ONCOLOGICAL Hx Blood Disorders: No Hx Human Immunodeficiency Virus (HIV): No - INTEGUMENTARY Other/Comment: skin lesion recently removed from left infra-ocular area - MUSCULOSKELETAL/RHEUMATOLOGICAL Hx Falls: No - GASTROINTESTINAL Hx Gastrointestinal Disorders: No - GENITOURINARY/GYNECOLOGICAL Hx Genitourinary Disorders: No - PSYCHIATRIC Hx Substance Use: No - SURGICAL HISTORY Hx Valve Replacement: Yes (TAVR) Other/Comment: Laminectomy L3-L5 05/15/2017 - ANESTHESIA Hx Anesthesia: Yes Hx Anesthesia Reactions: No Hx Malignant Hyperthermia: No Meds Allergies/Adverse Reactions: Allergies Allergy/AdvReac Type Severity Reaction Status Date / Time No Known Allergies Allergy Verified 02/05/18 16:48 - Medications Medications: Current Medications Albuterol (Ventolin Hfa 90 Mcg/Actuation (8 G)) 1 puff INH RQ6 PRN PRN Reason: Shortness of Breath Allopurinol (Zyloprim) 300 mg PO DAILY [facility] Last Admin: 02/12/18 08:32 Dose: 300 mg Amlodipine Besylate (Norvasc) 10 mg PO DAILY [facility] Last Admin: 02/12/18 08:33 Dose: 10 mg Atorvastatin Calcium (Lipitor) 20 mg PO HS [facility] Last Admin: 02/11/18 21:17 Dose: 20 mg Clobetasol Propionate (Temovate Cream) 1 applic TOP BID [facility] Last Admin: 02/12/18 08:31 Dose: 1 applic Docusate Sodium (Colace) 100 mg PO BID [facility] Last Admin: 02/12/18 08:30 Dose: 100 mg Enalapril Maleate (Vasotec) 10 mg PO DAILY [facility] Last Admin: 02/12/18 08:33 Dose: 10 mg Enoxaparin Sodium (Lovenox) 40 mg SC DAILY [facility]; Protocol Last Admin: 02/12/18 08:58 Dose: 40 mg Furosemide (Lasix) 20 mg PO BID [facility] Last Admin: 02/12/18 08:33 Dose: 20 mg Metoprolol Tartrate (Lopressor) 25 mg PO Q12 [facility] Last Admin: 02/12/18 08:32 Dose: 25 mg Pantoprazole Sodium (Protonix Ec Tab) 40 mg PO DAILY [facility] Last Admin: 02/12/18 08:32 Dose: 40 mg Potassium Chloride (K-Dur 20 Meq Er Tab) 20 meq PO BID [facility] Last Admin: 02/12/18 08:30 Dose: 20 meq Pyridostigmine [place] (Mestinon Tab) 30 mg PO TID [facility] Last Admin: 02/12/18 13:17 Dose: 30 mg Fluticasone/Salmeterol (Advair Diskus 250/50) 1 puff IH Q12 [facility] Last Admin: 02/12/18 08:28 Dose: 1 puff Results - Vital Signs Recent Vital Signs: Last Vital Signs Temp 97.0 F L 02/12/18 08:16 Pulse 80 02/12/18 08:33 Resp 20 02/12/18 08:16 BP 147/73 02/12/18 08:33 Pulse Ox 98 02/12/18 08:16 - Labs Result Diagrams: 02/09/18 05:47 02/09/18 05:47
--- NOTE | 2018-02-12 17:48 | CP.PCM.PN ---
Subjective - Date & Time of Evaluation Date of Evaluation: 02/12/18 Time of Evaluation: 22:22 - Subjective Subjective: Notes appreciated Objective - Vital Signs/Intake and Output Vital Signs (last 24 hours): Temp Pulse Resp BP Pulse Ox 97.0 F L 80 20 114/60 98 02/12/18 08:16 02/12/18 08:33 02/12/18 08:16 02/12/18 16:33 02/12/18 08:16 - Medications Medications: Current Medications Albuterol (Ventolin Hfa 90 Mcg/Actuation (8 G)) 1 puff INH RQ6 PRN PRN Reason: Shortness of Breath Allopurinol (Zyloprim) 300 mg PO DAILY [facility] Last Admin: 02/12/18 08:32 Dose: 300 mg Amlodipine Besylate (Norvasc) 10 mg PO DAILY [facility] Last Admin: 02/12/18 08:33 Dose: 10 mg Atorvastatin Calcium (Lipitor) 20 mg PO HS [facility] Last Admin: 02/11/18 21:17 Dose: 20 mg Clobetasol Propionate (Temovate Cream) 1 applic TOP BID [facility] Last Admin: 02/12/18 16:36 Dose: 1 applic Docusate Sodium (Colace) 100 mg PO BID [facility] Last Admin: 02/12/18 16:38 Dose: Not Given Enalapril Maleate (Vasotec) 10 mg PO DAILY [facility] Last Admin: 02/12/18 08:33 Dose: 10 mg Enoxaparin Sodium (Lovenox) 40 mg SC DAILY [facility]; Protocol Last Admin: 02/12/18 08:58 Dose: 40 mg Furosemide (Lasix) 20 mg PO BID [facility] Last Admin: 02/12/18 16:33 Dose: 20 mg Metoprolol Tartrate (Lopressor) 25 mg PO Q12 [facility] Last Admin: 02/12/18 08:32 Dose: 25 mg Pantoprazole Sodium (Protonix Ec Tab) 40 mg PO DAILY [facility] Last Admin: 02/12/18 08:32 Dose: 40 mg Potassium Chloride (K-Dur 20 Meq Er Tab) 20 meq PO BID [facility] Last Admin: 02/12/18 16:32 Dose: 20 meq Pyridostigmine [place] (Mestinon Tab) 30 mg PO TID [facility] Last Admin: 02/12/18 16:36 Dose: 30 mg Fluticasone/Salmeterol (Advair Diskus 250/50) 1 puff IH Q12 [facility] Last Admin: 02/12/18 08:28 Dose: 1 puff - Labs Labs: 02/09/18 05:47 02/09/18 05:47 - Respiratory Exam Respiratory Exam: NORMAL BREATHING PATTERN - Cardiovascular Exam Cardiovascular Exam: Tachycardia, REGULAR RHYTHM - GI/Abdominal Exam GI & Abdominal Exam: Normal Bowel Sounds Assessment and Plan - Assessment and Plan (Free Text) Assessment: Deconditioning unsteady gait PT Physiatry Illeus large bowel etiol? S/P Colonoscopy decompression As per GI Hx Low back surgery (Severe Spinal Stenosis) Post operative illeus CHF Afib S/P TAVR Diuretics Lovenox Cardiology ?? outpt anticoagulation Hypokalemia 2 to GI?? K+ suppl Hyponatremia 2 to fluid overload Hyperkalemia etiol?? Hold ARB Kaexylate Urine lytes Nephrology consult COPD Smoker Pleural effusion steroids inhalers O2 Pulmonary Bilat Lower ext edema/ cellulitis ID [id number] podiatry HTN Prediabetes
[2018-02-13] MEDS: Enoxaparin 40 mg Syringe SC SCH (08:15)
[2018-02-13] MEDS: Potassium Chloride 20 mEq ER Tab PO SCH ×2 (08:16→16:06)
[2018-02-13] MEDS: Fluticasone-Salmeterol 250-50mcg Diskus IH SCH ×2 (08:16→20:16)
[2018-02-13] MEDS: Pantoprazole 40 mg EC Tab PO SCH (08:16)
--- NOTE | 2018-02-13 20:22 | CP.PCM.PN ---
Subjective - Date & Time of Evaluation Date of Evaluation: 02/13/18 Time of Evaluation: 22:22 - Subjective Subjective: Doing well Objective - Vital Signs/Intake and Output Vital Signs (last 24 hours): Temp Pulse Resp BP Pulse Ox 97.2 F L 71 20 108/64 96 02/13/18 19:35 02/13/18 20:15 02/13/18 19:35 02/13/18 20:15 02/13/18 19:35 - Medications Medications: Current Medications Albuterol (Ventolin Hfa 90 Mcg/Actuation (8 G)) 1 puff INH RQ6 PRN PRN Reason: Shortness of Breath Allopurinol (Zyloprim) 300 mg PO DAILY [facility] Last Admin: 02/13/18 08:21 Dose: 300 mg Amlodipine Besylate (Norvasc) 10 mg PO DAILY [facility] Last Admin: 02/13/18 08:17 Dose: 10 mg Atorvastatin Calcium (Lipitor) 20 mg PO HS [facility] Last Admin: 02/12/18 21:38 Dose: 20 mg Clobetasol Propionate (Temovate Cream) 1 applic TOP BID [facility] Last Admin: 02/13/18 16:05 Dose: 1 applic Docusate Sodium (Colace) 100 mg PO BID [facility] Last Admin: 02/13/18 16:05 Dose: 100 mg Enalapril Maleate (Vasotec) 10 mg PO DAILY [facility] Last Admin: 02/13/18 08:21 Dose: 10 mg Enoxaparin Sodium (Lovenox) 40 mg SC DAILY [facility]; Protocol Last Admin: 02/13/18 08:15 Dose: 40 mg Furosemide (Lasix) 20 mg PO BID [facility] Last Admin: 02/13/18 16:06 Dose: 20 mg Metoprolol Tartrate (Lopressor) 25 mg PO Q12 [facility] Last Admin: 02/13/18 20:15 Dose: 25 mg Pantoprazole Sodium (Protonix Ec Tab) 40 mg PO DAILY [facility] Last Admin: 02/13/18 08:16 Dose: 40 mg Potassium Chloride (K-Dur 20 Meq Er Tab) 20 meq PO BID [facility] Last Admin: 02/13/18 16:06 Dose: 20 meq Pyridostigmine [place] (Mestinon Tab) 30 mg PO TID [facility] Last Admin: 02/13/18 16:07 Dose: 30 mg Fluticasone/Salmeterol (Advair Diskus 250/50) 1 puff IH Q12 [facility] Last Admin: 02/13/18 20:16 Dose: 1 puff - Labs Labs: 02/09/18 05:47 02/09/18 05:47 - Respiratory Exam Respiratory Exam: NORMAL BREATHING PATTERN - Cardiovascular Exam Cardiovascular Exam: REGULAR RHYTHM - GI/Abdominal Exam GI & Abdominal Exam: Normal Bowel Sounds Assessment and Plan - Assessment and Plan (Free Text) Assessment: Deconditioning unsteady gait PT Physiatry Illeus large bowel etiol? S/P Colonoscopy decompression As per GI Hx Low back surgery (Severe Spinal Stenosis) Post operative illeus CHF Afib S/P TAVR Diuretics Lovenox Cardiology ?? outpt anticoagulation Hypokalemia 2 to GI?? K+ suppl Hyponatremia 2 to fluid overload Hyperkalemia etiol?? Hold ARB Kaexylate Urine lytes Nephrology consult COPD Smoker Pleural effusion steroids inhalers O2 Pulmonary Bilat Lower ext edema/ cellulitis ID [id number] podiatry HTN Prediabetes
[2018-02-14] MEDS: Fluticasone-Salmeterol 250-50mcg Diskus IH SCH ×2 (08:15→21:28)
[2018-02-14] MEDS: Potassium Chloride 20 mEq ER Tab PO SCH ×2 (08:16→16:36)
[2018-02-14] MEDS: Enoxaparin 40 mg Syringe SC SCH (08:17)
[2018-02-14] MEDS: Pantoprazole 40 mg EC Tab PO SCH (08:20)
[2018-02-14 08:35] LABS: HEMOGLOBIN 13.2 g/dL (12.0-18.0); MEAN CELL VOLUME 101.2 fl (80.0-94.0); MEAN CORPUSCULAR HGB CONC 31.6 g/dL (33.0-37.0); RBC 4.13 Mil/uL (4.40-5.90); WHITE BLOOD COUNT 5.7 K/uL (4.8-10.8)
[2018-02-14 09:06] LABS: ALB/GLOB RATIO 1.3 (1.0-2.1); ALT/SGPT 43 U/L (21-72); AST/SGOT 39 U/L (17-59); BLOOD UREA NITROGEN 10 mg/dl (9-20); CALCIUM 9.3 mg/dL (8.4-10.2); GFR NON-AFRICAN AMERICAN > 60
--- NOTE | 2018-02-14 15:03 | CP.PCM.PN ---
Subjective - Date & Time of Evaluation Date of Evaluation: 02/14/18 Time of Evaluation: 22:22 - Subjective Subjective: Continues to do well Objective - Vital Signs/Intake and Output Vital Signs (last 24 hours): Temp Pulse Resp BP Pulse Ox 97.0 F L 76 20 128/76 95 02/14/18 07:35 02/14/18 08:19 02/14/18 07:35 02/14/18 08:19 02/14/18 07:35 - Medications Medications: Current Medications Albuterol (Ventolin Hfa 90 Mcg/Actuation (8 G)) 1 puff INH RQ6 PRN PRN Reason: Shortness of Breath Allopurinol (Zyloprim) 300 mg PO DAILY [facility] Last Admin: 02/14/18 08:20 Dose: 300 mg Amlodipine Besylate (Norvasc) 10 mg PO DAILY [facility] Last Admin: 02/14/18 08:19 Dose: 10 mg Atorvastatin Calcium (Lipitor) 20 mg PO HS [facility] Last Admin: 02/13/18 21:00 Dose: 20 mg Clobetasol Propionate (Temovate Cream) 1 applic TOP BID [facility] Last Admin: 02/14/18 08:20 Dose: 1 applic Docusate Sodium (Colace) 100 mg PO BID [facility] Last Admin: 02/14/18 08:16 Dose: 100 mg Enalapril Maleate (Vasotec) 10 mg PO DAILY [facility] Last Admin: 02/14/18 08:20 Dose: 10 mg Enoxaparin Sodium (Lovenox) 40 mg SC DAILY [facility]; Protocol Last Admin: 02/14/18 08:17 Dose: 40 mg Furosemide (Lasix) 20 mg PO BID [facility] Last Admin: 02/14/18 08:16 Dose: 20 mg Metoprolol Tartrate (Lopressor) 25 mg PO Q12 [facility] Last Admin: 02/14/18 08:17 Dose: 25 mg Pantoprazole Sodium (Protonix Ec Tab) 40 mg PO DAILY [facility] Last Admin: 02/14/18 08:20 Dose: 40 mg Potassium Chloride (K-Dur 20 Meq Er Tab) 20 meq PO BID [facility] Last Admin: 02/14/18 08:16 Dose: 20 meq Pyridostigmine [place] (Mestinon Tab) 30 mg PO TID [facility] Last Admin: 02/14/18 12:17 Dose: 30 mg Fluticasone/Salmeterol (Advair Diskus 250/50) 1 puff IH Q12 [facility] Last Admin: 02/14/18 08:15 Dose: 1 puff - Labs Labs: 02/14/18 06:20 02/14/18 06:20
[2018-02-15] MEDS: Enoxaparin 40 mg Syringe SC SCH (08:16)
[2018-02-15] MEDS: Potassium Chloride 20 mEq ER Tab PO SCH ×2 (08:16→16:37)
[2018-02-15] MEDS: Fluticasone-Salmeterol 250-50mcg Diskus IH SCH ×2 (08:16→21:14)
[2018-02-15] MEDS: Pantoprazole 40 mg EC Tab PO SCH (08:18)
[2018-02-15 12:50] LABS: HEMOGLOBIN 13.7 g/dL (12.0-18.0); MEAN CORPUSCULAR HEMOGLOBIN 32.9 pg (27.0-31.0); MEAN CORPUSCULAR HGB CONC 32.5 g/dL (33.0-37.0); RBC 4.15 Mil/uL (4.40-5.90); RED CELL DISTRIBUTION WIDTH 15.3 % (11.5-14.5); WHITE BLOOD COUNT 6.4 K/uL (4.8-10.8)
[2018-02-15 13:21] LABS: BLOOD UREA NITROGEN 13 mg/dl (9-20); CALCIUM 9.1 mg/dL (8.4-10.2); GFR NON-AFRICAN AMERICAN > 60
--- NOTE | 2018-02-15 16:18 | CP.PCM.PN ---
Subjective - Date & Time of Evaluation Date of Evaluation: 02/15/18 Time of Evaluation: 16:17 - Subjective Subjective: Progress Note GI- Dr. Monge Patient seen and examined at bedside. No new complaints. Having Regular daily BM. Actively having BM during encounter. denies f/c/cp/SOB/N/V/D Objective - Vital Signs/Intake and Output Vital Signs (last 24 hours): Temp Pulse Resp BP Pulse Ox 98.3 F 84 20 128/77 98 02/15/18 08:00 02/15/18 08:17 02/15/18 08:00 02/15/18 08:18 02/15/18 08:00 - Medications Medications: Current Medications Albuterol (Ventolin Hfa 90 Mcg/Actuation (8 G)) 1 puff INH RQ6 PRN PRN Reason: Shortness of Breath Allopurinol (Zyloprim) 300 mg PO DAILY [facility] Last Admin: 02/15/18 08:19 Dose: 300 mg Amlodipine Besylate (Norvasc) 10 mg PO DAILY [facility] Last Admin: 02/15/18 08:18 Dose: 10 mg Atorvastatin Calcium (Lipitor) 20 mg PO HS [facility] Last Admin: 02/14/18 21:28 Dose: 20 mg Clobetasol Propionate (Temovate Cream) 1 applic TOP BID [facility] Last Admin: 02/15/18 08:17 Dose: 1 applic Docusate Sodium (Colace) 100 mg PO BID [facility] Last Admin: 02/15/18 08:17 Dose: 100 mg Enalapril Maleate (Vasotec) 10 mg PO DAILY [facility] Last Admin: 02/15/18 08:19 Dose: 10 mg Enoxaparin Sodium (Lovenox) 40 mg SC DAILY [facility]; Protocol Furosemide (Lasix) 20 mg PO BID [facility] Last Admin: 02/15/18 08:18 Dose: 20 mg Metoprolol Tartrate (Lopressor) 25 mg PO Q12 [facility] Last Admin: 02/15/18 08:17 Dose: 25 mg Pantoprazole Sodium (Protonix Ec Tab) 40 mg PO DAILY [facility] Last Admin: 02/15/18 08:18 Dose: 40 mg Potassium Chloride (K-Dur 20 Meq Er Tab) 20 meq PO BID [facility] Last Admin: 02/15/18 08:16 Dose: 20 meq Pyridostigmine [place] (Mestinon Tab) 30 mg PO TID [facility] Last Admin: 02/15/18 13:01 Dose: 30 mg Fluticasone/Salmeterol (Advair Diskus 250/50) 1 puff IH Q12 [facility] Last Admin: 02/15/18 08:16 Dose: 1 puff - Labs Labs: 02/15/18 12:46 02/15/18 12:46 - Constitutional Appears: Non-toxic, No Acute Distress - Head Exam Head Exam: ATRAUMATIC - Eye Exam Eye Exam: EOMI. absent: Scleral icterus - ENT Exam ENT Exam: Mucous Membranes Moist - Respiratory Exam Respiratory Exam: NORMAL BREATHING PATTERN. absent: Accessory Muscle Use, Respiratory Distress - Cardiovascular Exam Cardiovascular Exam: +S1, +S2. absent: Bradycardia, Tachycardia - GI/Abdominal Exam GI & Abdominal Exam: Distended (baseline distention), Soft. absent: Firm, Guarding, Rigid, Tenderness - Neurological Exam Neurological Exam: Alert, Awake, Oriented x3 Assessment and Plan - Assessment and Plan (Free Text) Assessment: 87M w/ hx of ileus Plan: - regular daily BM - continue to monitor - diet as tolerated - discussed w/ Dr. Saleem Germain PGY2
--- NOTE | 2018-02-15 20:03 | CP.PCM.PN ---
Subjective - Date & Time of Evaluation Date of Evaluation: 02/15/18 Time of Evaluation: 22:22 - Subjective Subjective: Above noted Objective - Vital Signs/Intake and Output Vital Signs (last 24 hours): Temp Pulse Resp BP Pulse Ox 98.3 F 84 20 110/57 L 98 02/15/18 08:00 02/15/18 08:17 02/15/18 08:00 02/15/18 16:37 02/15/18 08:00 - Medications Medications: Current Medications Albuterol (Ventolin Hfa 90 Mcg/Actuation (8 G)) 1 puff INH RQ6 PRN PRN Reason: Shortness of Breath Allopurinol (Zyloprim) 300 mg PO DAILY [facility] Last Admin: 02/15/18 08:19 Dose: 300 mg Amlodipine Besylate (Norvasc) 10 mg PO DAILY [facility] Last Admin: 02/15/18 08:18 Dose: 10 mg Atorvastatin Calcium (Lipitor) 20 mg PO HS [facility] Last Admin: 02/14/18 21:28 Dose: 20 mg Clobetasol Propionate (Temovate Cream) 1 applic TOP BID [facility] Last Admin: 02/15/18 16:40 Dose: 1 applic Docusate Sodium (Colace) 100 mg PO BID [facility] Last Admin: 02/15/18 16:37 Dose: 100 mg Enalapril Maleate (Vasotec) 10 mg PO DAILY [facility] Last Admin: 02/15/18 08:19 Dose: 10 mg Enoxaparin Sodium (Lovenox) 40 mg SC DAILY [facility]; Protocol Furosemide (Lasix) 20 mg PO BID [facility] Last Admin: 02/15/18 16:37 Dose: 20 mg Metoprolol Tartrate (Lopressor) 25 mg PO Q12 [facility] Last Admin: 02/15/18 08:17 Dose: 25 mg Pantoprazole Sodium (Protonix Ec Tab) 40 mg PO DAILY [facility] Last Admin: 02/15/18 08:18 Dose: 40 mg Potassium Chloride (K-Dur 20 Meq Er Tab) 20 meq PO BID [facility] Last Admin: 02/15/18 16:37 Dose: 20 meq Pyridostigmine [place] (Mestinon Tab) 30 mg PO TID [facility] Last Admin: 02/15/18 16:36 Dose: 30 mg Fluticasone/Salmeterol (Advair Diskus 250/50) 1 puff IH Q12 [facility] Last Admin: 02/15/18 08:16 Dose: 1 puff - Labs Labs: 02/15/18 12:46 02/15/18 12:46 - Respiratory Exam Respiratory Exam: NORMAL BREATHING PATTERN - Cardiovascular Exam Cardiovascular Exam: REGULAR RHYTHM - GI/Abdominal Exam GI & Abdominal Exam: Normal Bowel Sounds Assessment and Plan - Assessment and Plan (Free Text) Assessment: Deconditioning unsteady gait PT Physiatry CHF Afib S/P TAVR Diuretics Lovenox Cardiology ?? outpt anticoagulation Hypokalemia 2 to GI?? K+ suppl Hyponatremia 2 to fluid overload Hyperkalemia etiol?? Hold ARB Kaexylate Urine lytes Nephrology consult COPD Smoker Pleural effusion steroids inhalers O2 Pulmonary Illeus large bowel etiol? S/P Colonoscopy decompression As per GI Hx Low back surgery (Severe Spinal Stenosis) Post operative illeus Bilat Lower ext edema/ cellulitis ID [id number] podiatry HTN Prediabetes
[2018-02-16 00:07] VITALS: O2SAT 98
[2018-02-16 08:08] VITALS: BP 121/72; TEMP 92.2
[2018-02-16] MEDS: Fluticasone-Salmeterol 250-50mcg Diskus IH SCH (08:37)
[2018-02-16] MEDS: Pantoprazole 40 mg EC Tab PO SCH (08:38)
[2018-02-16 08:40] VITALS: PULSE 82
[2018-02-16] MEDS: Potassium Chloride 20 mEq ER Tab PO SCH (08:40)
[2018-02-16] MEDS ORDERED: Enoxaparin 40 mg Syringe SC SCH (09:00)
--- NOTE | 2018-02-16 20:47 | CP.PCM.PN ---
Subjective - Date & Time of Evaluation Date of Evaluation: 02/16/18 Time of Evaluation: 22:22 - Subjective Subjective: Above noted Objective - Vital Signs/Intake and Output Vital Signs (last 24 hours): Temp Pulse Resp BP Pulse Ox 92.2 F L 82 20 121/72 98 02/16/18 07:59 02/16/18 16:13 02/16/18 07:59 02/16/18 16:13 02/16/18 07:59 - Labs Labs: 02/15/18 12:46 02/15/18 12:46 - Respiratory Exam Respiratory Exam: NORMAL BREATHING PATTERN - Cardiovascular Exam Cardiovascular Exam: REGULAR RHYTHM - GI/Abdominal Exam GI & Abdominal Exam: Normal Bowel Sounds Assessment and Plan - Assessment and Plan (Free Text) Assessment: Deconditioning unsteady gait PT Physiatry CHF Afib S/P TAVR Diuretics Lovenox Cardiology anticoagulation as per cardiology Eliquis 2.5 BID Hypokalemia 2 to GI?? K+ suppl Hyponatremia 2 to fluid overload Hyperkalemia etiol?? Hold ARB Kaexylate Urine lytes Nephrology consult COPD Smoker Pleural effusion steroids inhalers O2 Pulmonary Illeus large bowel etiol? S/P Colonoscopy decompression As per GI Hx Low back surgery (Severe Spinal Stenosis) Post operative illeus Bilat Lower ext edema/ cellulitis ID [id number] podiatry HTN Prediabetes
== END 2018-02-16 14:00 | disposition home health service (06) | DRG 292 ==
LOC: H.TCU 16:52
PROVIDERS: ADMIT Family Medicine Geriatric Medicine; ATTEND Family Medicine Geriatric Medicine
PROC: F07M6FZ Therapeutic Exercise Treatment of Musculoskeletal System - Whole Body using Assistive, Adaptive, Supportive or Protective Equipment (ICD-10-PCS; principal; 2018-02-05)
PROC: F08Z4FZ Home Management Treatment using Assistive, Adaptive, Supportive or Protective Equipment (ICD-10-PCS; 2018-02-05)
PROC: 3E03329 Introduction of Other Anti-infective into Peripheral Vein, Percutaneous Approach (ICD-10-PCS; 2018-02-05)
DX: I11.0 Hypertensive heart disease with heart failure (principal); K56.7 Ileus, unspecified; L03.115 Cellulitis of right lower limb; L03.116 Cellulitis of left lower limb; R26.81 Unsteadiness on feet; J44.1 Chronic obstructive pulmonary disease with (acute) exacerbation; E87.1 Hypo-osmolality and hyponatremia; I50.33 Acute on chronic diastolic (congestive) heart failure; M48.00 Spinal stenosis, site unspecified; R73.03 Prediabetes; E78.5 Hyperlipidemia, unspecified; Z91.19 Patient's noncompliance with other medical treatment and regimen; Z95.2 Presence of prosthetic heart valve; M10.9 Gout, unspecified; M79.89 Other specified soft tissue disorders; E66.9 Obesity, unspecified; E78.00 Pure hypercholesterolemia, unspecified; E87.6 Hypokalemia; F17.200 Nicotine dependence, unspecified, uncomplicated; I25.10 Atherosclerotic heart disease of native coronary artery without angina pectoris; I48.91 Unspecified atrial fibrillation

== ENCOUNTER 2018-06-04 12:39 | Inpatient (IN) | payer MEDICARE, OTHER ==
--- NOTE | 2018-06-04 15:04 | ED PDOC ---
Lower Extremity Pain/Injury Time Seen by Provider: 06/04/18 13:44 Chief Complaint (Nursing): Lower Extremity Problem/Injury Chief Complaint (Provider): Lower Extremity Problem/Injury History Per: Patient History/Exam Limitations: no limitations Onset/Duration Of Symptoms: Other (couple of weeks) Current Symptoms Are (Timing): Still Present Additional Complaint(s): 88 year old male with HTN, heart failure, high cholesterol and gout who is Dr. Tamez patient was sent to [facility] because patient has bruising on his left leg along the inner aspect of the thigh to the ankle onset for a couple of weeks. Patient also reports of bilateral leg swelling. Dr. Branch is concerned patient has DVT or the symptom is due to anticoagulant medication, Eliquis. Otherwise, patient denies shortness of breath, chest pain, fever, chills, known injury to his legs, any complaints or allergies. PMD: Sarina Past Medical History Reviewed: Historical Data, Nursing Documentation, Vital Signs Vital Signs: Last Vital Signs Temp 98 F 06/04/18 12:57 Pulse 80 06/04/18 12:57 Resp 18 06/04/18 12:57 BP 147/71 06/04/18 12:57 Pulse Ox 92 L 06/04/18 12:57 - Medical History PMH: Atrial Fibrillation (current EKG), Bronchitis, CHF, COPD, HTN, Hypercholesterolemia, Peripheral Edema Denies: HIV, Chronic Kidney Disease - Surgical History Surgical History: Back Surgery (Laminectomy L3-L5 05/15/2017) - Family History Family History: States: Unknown Family Hx - Immunization History Hx Tetanus Toxoid Vaccination: No Hx Influenza Vaccination: No Hx Pneumococcal Vaccination: No - Home Medications Home Medications: Ambulatory Orders Medication Instructions Recorded Enalapril Maleate [Vasotec] 10 mg PO DAILY 07/28/16 Allopurinol [Zyloprim] 300 mg PO DAILY 04/27/17 Aspirin [Ecotrin] 81 mg PO DAILY 04/27/17 Atorvastatin [Lipitor] 20 mg PO HS 04/27/17 Metoprolol Tartrate [Lopressor] 25 mg PO Q12 04/27/17 Docusate [Colace] 100 mg PO BID cap 05/18/17 Albuterol Sulfate [Proair Hfa] 2 puff IH Q8 PRN 01/27/18 Fluticasone/Salmeterol [Advair 1 puff IH Q12 10/31/18 250-50 Diskus] Pantoprazole Sodium [Protonix] 40 mg PO DAILY 01/27/18 amLODIPine [Norvasc] 10 mg PO DAILY 01/27/18 Clobetasol 0.05% [Temovate CREAM] 1 applic TOP BID tube 02/05/18 Pyridostigmine [Mestinon Tab] 30 mg PO TID tab 02/05/18 Apixaban [Eliquis] 2.5 mg PO BID 02/16/18 Furosemide [Lasix] 20 mg PO BID 02/16/18 Potassium Chloride [K-Dur 20 mEq 20 meq PO BID 02/16/18 ER Tab] - Allergies Allergies/Adverse Reactions: Allergies Allergy/AdvReac Type Severity Reaction Status Date / Time No Known Allergies Allergy Verified 02/05/18 16:48 Review of Systems ROS Statement: Except As Marked, All Systems Reviewed And Found Negative Constitutional: Negative for: Fever, Chills Cardiovascular: Negative for: Chest Pain Respiratory: Negative for: Shortness of Breath Musculoskeletal: Positive for: Other (bruising to bilateral legs) Skin: Positive for: Bruising (left leg) Physical Exam - Reviewed Nursing Documentation Reviewed: Yes Vital Signs Reviewed: Yes - Physical Exam Appears: Positive for: Well, Non-toxic, No Acute Distress Head Exam: Positive for: ATRAUMATIC, NORMAL INSPECTION, NORMOCEPHALIC Skin: Positive for: Normal Color, Warm, Dry. Negative for: Rash Eye Exam: Positive for: EOMI, Normal appearance, PERRL ENT: Positive for: Normal ENT Inspection Neck: Positive for: Normal, Painless ROM, Supple. Negative for: Decreased ROM Cardiovascular/Chest: Positive for: Regular Rate, Rhythm. Negative for: Murmur Respiratory: Positive for: Normal Breath Sounds. Negative for: Decreased Breath Sounds, Respiratory Distress Gastrointestinal/Abdominal: Positive for: Normal Exam, Soft. Negative for: Tenderness Back: Positive for: Normal Inspection. Negative for: L CVA Tenderness, R CVA Tenderness Extremity: Positive for: Normal ROM, Tenderness (left leg ), Pedal Edema (bilateral extremities edema 3+), Other (negative chaka's sign) Neurological/Psych: Positive for: Awake, Alert, Normal Tone, Oriented (x3) - ECG O2 Sat by Pulse Oximetry: 92 (RA) Pulse Ox Interpretation: Normal Medical Decision Making Medical Decision Making: Time: 1422 Impression: bilateral lower leg swelling r/o DVT Plan: CMP CBC w/ differential PTT Prothrombin time IV insertion Duplex lower extremity vein bilateral [US] Time: 1500 Patient will be endorsed to Dr. Rangel pending US and reevaluation Scribe Attestation: Documented by Irma Warner, acting as a scribe for Rupinder Duke MD Provider Scribe Attestation: All medical record entries made by the Scribe were at my direction and personally dictated by me. I have reviewed the chart and agree that the record accurately reflects my personal performance of the history, physical exam, medical decision making, and the department course for this patient. I have also personally directed, reviewed, and agree with the discharge instructions and disposition. Disposition - Disposition Disposition: Transfer of Care Disposition Time: 15:00 Patient Signed Over To: Stephanie Rangel (pending US and reevaluation )
[2018-06-04 15:15] LABS: INR 1.3; PROTHROMBIN TIME 15.2 Seconds (9.8-13.1)
[2018-06-04 15:22] LABS: ALB/GLOB RATIO 1.4 (1.0-2.1); ALBUMIN 4.4 g/dL (3.5-5.0); ALT/SGPT 35 U/L (21-72); AST/SGOT 29 U/L (17-59); BLOOD UREA NITROGEN 21 mg/dl (9-20); CALCIUM 9.6 mg/dL (8.4-10.2); GFR NON-AFRICAN AMERICAN > 60
--- NOTE | 2018-06-04 15:28 | ED PDOC ---
- Laboratory Results Result Diagrams: 06/04/18 14:45 06/04/18 14:45 Lab Results: PT 15.2 Seconds (9.8-13.1) H 06/04/18 14:45 INR 1.3 06/04/18 14:45 APTT 39.0 Seconds (25.6-37.1) H 06/04/18 14:45 Total Bilirubin 0.9 mg/dl (0.2-1.3) 06/04/18 14:45 AST 29 U/L (17-59) 06/04/18 14:45 ALT 35 U/L (21-72) 06/04/18 14:45 Alkaline Phosphatase 85 U/L (38-126) 06/04/18 14:45 Total Protein 7.4 G/DL (6.3-8.2) 06/04/18 14:45 Albumin 4.4 g/dL (3.5-5.0) 06/04/18 14:45 Globulin 3.1 gm/dL (2.2-3.9) 06/04/18 14:45 Albumin/Globulin Ratio 1.4 (1.0-2.1) 06/04/18 14:45 - ECG O2 Sat by Pulse Oximetry: 92 (RA) Medical Decision Making Medical Decision Making: Time: 1500 --Patient is endorsed to provider by Dr. Duke, pending ED work up, re-evaluation, and final disposition. 4p Labs demonstrate no emergently significant abnormalities Accession No. : [id number] Patient Name / ID : MISHA HANSON / [id number] Exam Date : 06/04/2018 15:29:51 ( Approved ) Study Comment : Sex / Age : M / 88Y Creator : Frankie Morales MD Dictator : Frankie Morales MD Mapping Specialist : Passenger Car Inspector : Frankie Morales MD Approver2 : Report Date : 06/04/2018 15:57:35 My Comment : Date of service: 06/04/2018 PROCEDURE: Bilateral lower extremity venous duplex Doppler. HISTORY: bilaterally swelling with superficial ecchymosis COMPARISON: None available. TECHNIQUE: Bilateral common femoral, superficial femoral, popliteal and posterior tibial veins were evaluated. Flow was assessed with color Doppler, compressibility, assessment of phasic flow and augmentation response. FINDINGS: Normal phasic venous blood flow is appreciated as well as compressibility, augmentation and morphology at the bilateral common and superficial femoral as well as popliteal and posterior tibial veins. No sonographic evidence to sugg est deep venous thrombosis bilateral lower extremities. OTHER FINDINGS: None. IMPRESSION: No sonographic evidence to suggest deep venous thrombosis bilateral lower extremities. DW pt findings. On exam, LEFT leg with deep redness and induration extending from ankle up to knee with areas of violaceous ecchymosis. Concern for progressive cellulitis/erysipelis. DW Dr Branch and pt to be hospitalized for IV antibiotics and close observation of progression of symptoms. Scribe Attestation: Documented by Diana Pa, acting as a scribe for Stephanie Rangel MD. Provider Scribe Attestation: All medical record entries made by the Scribe were at my direction and personally dictated by me. I have reviewed the chart and agree that the record accurately reflects my personal performance of the history, physical exam, medical decision making, and the department course for this patient. I have also personally directed, reviewed, and agree with the discharge instructions and disposition. Disposition - Clinical Impression Clinical Impression: Left leg cellulitis - POA Present On Arrival: None - Disposition Disposition: Hospitalized as Observation Patient Disposition Time: 17:00 Condition: FAIR Forms: [facility] ([place]ijani)
[2018-06-04 15:30] LABS: BASO # 0.2 K/uL (0.0-0.2); BASO % 2.5 % (0.0-2.0); EOS # 0.1 K/uL (0.0-0.7); EOS % 0.9 % (0.0-4.0); HEMOGLOBIN 12.8 g/dL (12.0-18.0); LYMPH # 1.3 K/uL (1.0-4.3); LYMPH % 16.3 % (20.0-40.0); MEAN CORPUSCULAR HEMOGLOBIN 30.6 pg (27.0-31.0); MEAN CORPUSCULAR HGB CONC 32.3 g/dL (33.0-37.0); MEAN PLATELET VOLUME 8.6 fl (7.2-11.7); MONO # 1.4 K/uL (0.0-0.8); MONO % 16.9 % (0.0-10.0); NEUT # 5.2 K/uL (1.8-7.0); NEUT % 63.4 % (50.0-75.0); NRBC % 0.1 % (0.0-0.0); RBC 4.17 Mil/uL (4.40-5.90); RED CELL DISTRIBUTION WIDTH 16.4 % (11.5-14.5); WHITE BLOOD COUNT 8.2 K/uL (4.8-10.8)
[2018-06-04 15:33] LABS: MEAN CELL VOLUME 94.7 fl (80.0-94.0)
--- NOTE | 2018-06-04 16:01 | US ---
Date of service: 06/04/2018 PROCEDURE: Bilateral lower extremity venous duplex Doppler. HISTORY: bilaterally swelling with superficial ecchymosis COMPARISON: None available. TECHNIQUE: Bilateral common femoral, superficial femoral, popliteal and posterior tibial veins were evaluated. Flow was assessed with color Doppler, compressibility, assessment of phasic flow and augmentation response. FINDINGS: Normal phasic venous blood flow is appreciated as well as compressibility, augmentation and morphology at the bilateral common and superficial femoral as well as popliteal and posterior tibial veins. No sonographic evidence to suggest deep venous thrombosis bilateral lower extremities. OTHER FINDINGS: None. IMPRESSION: No sonographic evidence to suggest deep venous thrombosis bilateral lower extremities.
[2018-06-04] MEDS ORDERED: Clindamycin 600mg/50ml D5W 600 MG/50 ML VIAL IVPB STA (17:37)
[2018-06-04] MEDS ORDERED: Tmp-Smz 800 mg-160 mg DS Tab PO STA (17:38)
--- NOTE | 2018-06-04 18:25 | RAD ---
Was supposed to be date of service: 06/04/2018 HISTORY: leg swelling COMPARISON: Comparison made with prior study dated 05/17/2018 FINDINGS: LUNGS: Subsegmental atelectasis right mid lung field versus fluid tracking along the major fissure. There also appears to be right-sided effusion in the lung base including CP angle region with patchy infiltrate and possibly segmental atelectasis the right lung base as well. Central pulmonary vasculature is slightly increased; findings may be in part due to patient positioning however mild pulmonary venous congestive changes at the considered as well. PLEURA: No significant pleural effusion identified, no pneumothorax apparent. CARDIOVASCULAR: Mild aortic atherosclerotic calcification present. Heart is enlarged. OSSEOUS STRUCTURES: No significant abnormalities. VISUALIZED UPPER ABDOMEN: Normal. OTHER FINDINGS: None. IMPRESSION: Subsegmental atelectasis right mid lung field versus fluid tracking along the major fissure. There also appears to be right-sided effusion in the lung base including CP angle region with patchy infiltrate and possibly segmental atelectasis the right lung base as well. Central pulmonary vasculature is slightly increased; findings may be in part due to patient positioning however mild pulmonary venous congestive changes at the considered as well.
[2018-06-04] MEDS ORDERED: Tmp-Smz 800 mg-160 mg DS Tab ONE (18:33)
[2018-06-05] MEDS: Clindamycin 600mg/50ml D5W 600 MG/50 ML VIAL IVPB SCH ×3 (00:06→16:10)
[2018-06-05 03:36] VITALS: BMI 36.4
--- NOTE | 2018-06-05 07:03 | CP.PCM.HP ---
History of Present Illness - History of Present Illness History of Present Illness: 88 yo admitted for LLE edema and erythema ?? Pt recently tx as outpt for COPD/ CHF with ortal steroids and Lasix Present on Admission - Present on Admission Any Indicators Present on Admission: No Past Patient History - Past Medical History & Family History Past Medical History?: Yes - Past Social History Smoking Status: Never Smoked - CARDIAC Hx Cardiac Disorders: Yes Hx Atrial Fibrillation: Yes Hx Congestive Heart Failure: Yes Hx Hypercholesterolemia: Yes Hx Hypertension: Yes Hx Peripheral Edema: Yes - PULMONARY Hx Bronchitis: Yes Hx Chronic Obstructive Pulmonary Disease (COPD): Yes - NEUROLOGICAL Hx Neurological Disorder: No - HEENT Hx HEENT Problems: No - RENAL Hx Chronic Kidney Disease: No - ENDOCRINE/METABOLIC Hx Endocrine Disorders: No - HEMATOLOGICAL/ONCOLOGICAL Hx Human Immunodeficiency Virus (HIV): No - INTEGUMENTARY Other/Comment: skin lesion recently removed from left infra-ocular area - MUSCULOSKELETAL/RHEUMATOLOGICAL Hx Falls: No Hx Gout: Yes Hx Unsteady Gait: Yes (ambulates with cane) - GASTROINTESTINAL Hx Gastrointestinal Disorders: No - GENITOURINARY/GYNECOLOGICAL Hx Genitourinary Disorders: No - PSYCHIATRIC Hx Psychophysiologic Disorder: No Hx Substance Use: No - SURGICAL HISTORY Hx Valve Replacement: Yes (TAVR) Other/Comment: Laminectomy L3-L5 05/15/2017 - ANESTHESIA Hx Anesthesia: Yes Hx Anesthesia Reactions: No Hx Malignant Hyperthermia: No Meds Allergies/Adverse Reactions: Allergies Allergy/AdvReac Type Severity Reaction Status Date / Time No Known Allergies Allergy Verified 02/05/18 16:48 Physical Exam - Respiratory Exam Respiratory Exam: NORMAL BREATHING PATTERN - Cardiovascular Exam Cardiovascular Exam: REGULAR RHYTHM - GI/Abdominal Exam GI & Abdominal Exam: Normal Bowel Sounds Results - Vital Signs Recent Vital Signs: Last Vital Signs Temp 97.6 F 06/05/18 00:00 Pulse 73 06/05/18 00:00 Resp 18 06/05/18 00:00 BP 109/48 L 06/05/18 00:00 Pulse Ox 94 L 06/05/18 00:00 - Labs Result Diagrams: 06/07/18 09:55 06/07/18 09:55 Labs: Laboratory Results - last 24 hr 06/04/18 06/04/18 06/04/18 14:45 14:45 14:45 WBC 8.2 RBC 4.17 L Hgb 12.8 Hct 39.5 MCV 94.7 H D MCH 30.6 MCHC 32.3 L RDW 16.4 H Plt Count 132 D MPV 8.6 Neut % (Auto) 63.4 Lymph % (Auto) 16.3 L [place] % (Auto) 16.9 H Eos % (Auto) 0.9 Baso % (Auto) 2.5 H Neut # (Auto) 5.2 Lymph # (Auto) 1.3 [place] # (Auto) 1.4 H Eos # (Auto) 0.1 Baso # (Auto) 0.2 ESR PT 15.2 H INR 1.3 APTT 39.0 H Sodium 138 Potassium 4.2 Chloride 97 L Carbon Dioxide 28 Anion Gap 17 BUN 21 H Creatinine 1.0 Est GFR ( Amer) > 60 Est GFR (Non-Af Amer) > 60 Random Glucose 84 Lactic Acid Calcium 9.6 Total Bilirubin 0.9 AST 29 ALT 35 Alkaline Phosphatase 85 NT-Pro-B Natriuret Pep Total Protein 7.4 Albumin 4.4 Globulin 3.1 Albumin/Globulin Ratio 1.4 06/04/18 06/04/18 06/04/18 18:05 18:05 18:16 WBC RBC Hgb Hct MCV MCH MCHC RDW Plt Count MPV Neut % (Auto) Lymph % (Auto) [place] % (Auto) Eos % (Auto) Baso % (Auto) Neut # (Auto) Lymph # (Auto) [place] # (Auto) Eos # (Auto) Baso # (Auto) ESR 27 H PT INR APTT Sodium Potassium Chloride Carbon Dioxide Anion Gap BUN Creatinine Est GFR ( Amer) Est GFR (Non-Af Amer) Random Glucose Lactic Acid 1.3 Calcium Total Bilirubin AST ALT Alkaline Phosphatase NT-Pro-B Natriuret Pep 1320 H Total Protein Albumin Globulin Albumin/Globulin Ratio Assessment & Plan - Assessment and Plan (Free Text) Assessment: LLE ?? edema cellulitis ?? ecchymosis?? ID Podiatry COPD COSA Smoker Pulmonary CHF Afib S/P TAVR Diuretics Lovenox Cardiology Eliquis 2.5 BID HTN Prediabetes Hx Hypokalemia Hyperkalemia Hx Illeus large bowel etiol? S/P Colonoscopy decompression As per GI Hx Low back surgery (Severe Spinal Stenosis) Post operative illeus - Date & Time Date: 06/05/18 Time: 22:22
[2018-06-05] MEDS: Tmp-Smz 800 mg-160 mg DS Tab PO SCH ×2 (08:49→20:30)
[2018-06-05] MEDS: Tiotropium 18 mcg Cap For Inhalation IH SCH (08:54)
--- NOTE | 2018-06-05 08:58 | RAD ---
Date of service: 06/05/2018 HISTORY: cellulitis COMPARISON: None available. FINDINGS: BONES: Normal. No fracture. JOINTS: Normal. No osteoarthritis. SOFT TISSUE: Normal. OTHER FINDINGS: None . IMPRESSION: Normal Bone Xray.
[2018-06-05] MEDS ORDERED: Tmp-Smz 800 mg-160 mg DS Tab PO SCH (09:00)
--- NOTE | 2018-06-05 10:46 | CP.PCM.CON ---
Past Patient History - Past Medical History & Family History Past Medical History?: Yes - Past Social History Smoking Status: Never Smoked - CARDIAC Hx Cardiac Disorders: Yes Hx Atrial Fibrillation: Yes Hx Congestive Heart Failure: Yes Hx Hypercholesterolemia: Yes Hx Hypertension: Yes Hx Peripheral Edema: Yes - PULMONARY Hx Bronchitis: Yes Hx Chronic Obstructive Pulmonary Disease (COPD): Yes - NEUROLOGICAL Hx Neurological Disorder: No - HEENT Hx HEENT Problems: No - RENAL Hx Chronic Kidney Disease: No - ENDOCRINE/METABOLIC Hx Endocrine Disorders: No - HEMATOLOGICAL/ONCOLOGICAL Hx Human Immunodeficiency Virus (HIV): No - INTEGUMENTARY Other/Comment: skin lesion recently removed from left infra-ocular area - MUSCULOSKELETAL/RHEUMATOLOGICAL Hx Falls: No Hx Gout: Yes Hx Unsteady Gait: Yes (ambulates with cane) - GASTROINTESTINAL Hx Gastrointestinal Disorders: No - GENITOURINARY/GYNECOLOGICAL Hx Genitourinary Disorders: No - PSYCHIATRIC Hx Psychophysiologic Disorder: No Hx Substance Use: No - SURGICAL HISTORY Hx Valve Replacement: Yes (TAVR) Other/Comment: Laminectomy L3-L5 05/15/2017 - ANESTHESIA Hx Anesthesia: Yes Hx Anesthesia Reactions: No Hx Malignant Hyperthermia: No Meds Allergies/Adverse Reactions: Allergies Allergy/AdvReac Type Severity Reaction Status Date / Time No Known Allergies Allergy Verified 02/05/18 16:48 - Medications Medications: Current Medications Albuterol (Ventolin Hfa 90 Mcg/Actuation (8 G)) 2 puff IH Q8 PRN PRN Reason: Shortness of Breath Amlodipine Besylate (Norvasc) 10 mg PO DAILY [facility] Last Admin: 06/05/18 08:54 Dose: 10 mg Apixaban (Eliquis) 2.5 mg PO Q12 [facility]; Protocol Last Admin: 06/05/18 08:50 Dose: 2.5 mg Aspirin (Ecotrin) 81 mg PO DAILY [facility] Last Admin: 06/05/18 08:49 Dose: 81 mg Atorvastatin Calcium (Lipitor) 20 mg PO HS [facility] Last Admin: 06/04/18 23:02 Dose: 20 mg Docusate Sodium (Colace) 100 mg PO BID [facility] Last Admin: 06/05/18 08:49 Dose: 100 mg Enalapril Maleate (Vasotec) 10 mg PO DAILY [facility] Last Admin: 06/05/18 08:54 Dose: 10 mg Furosemide (Lasix) 20 mg PO DAILY [facility] Last Admin: 06/05/18 08:53 Dose: 20 mg Clindamycin Phosphate (Cleocin) 600 mg in 50 mls @ 50 mls/hr IVPB Q8 [facility]; Protocol Metoprolol Tartrate (Lopressor) 25 mg PO Q12 [facility] Last Admin: 06/05/18 08:54 Dose: 25 mg Tiotropium [place] (Spiriva) 18 mcg IH DAILY [facility] Last Admin: 06/05/18 08:54 Dose: 18 mcg Trimethoprim/Sulfamethoxazole (Bactrim Ds Tab) 2 tab PO Q12 [facility]; Protocol Last Admin: 06/05/18 08:49 Dose: 2 tab Results - Vital Signs Recent Vital Signs: Last Vital Signs Temp 97.7 F 06/05/18 08:58 Pulse 87 06/05/18 08:58 Resp 20 06/05/18 08:58 BP 137/69 06/05/18 08:58 Pulse Ox 90 L 06/05/18 08:58 - Labs Result Diagrams: 06/04/18 14:45 06/04/18 14:45 Labs: Laboratory Results - last 24 hr 06/04/18 06/04/18 06/04/18 14:45 14:45 14:45 WBC 8.2 RBC 4.17 L Hgb 12.8 Hct 39.5 MCV 94.7 H D MCH 30.6 MCHC 32.3 L RDW 16.4 H Plt Count 132 D MPV 8.6 Neut % (Auto) 63.4 Lymph % (Auto) 16.3 L [place] % (Auto) 16.9 H Eos % (Auto) 0.9 Baso % (Auto) 2.5 H Neut # (Auto) 5.2 Lymph # (Auto) 1.3 [place] # (Auto) 1.4 H Eos # (Auto) 0.1 Baso # (Auto) 0.2 ESR PT 15.2 H INR 1.3 APTT 39.0 H Sodium 138 Potassium 4.2 Chloride 97 L Carbon Dioxide 28 Anion Gap 17 BUN 21 H Creatinine 1.0 Est GFR ( Amer) > 60 Est GFR (Non-Af Amer) > 60 Random Glucose 84 Lactic Acid Calcium 9.6 Total Bilirubin 0.9 AST 29 ALT 35 Alkaline Phosphatase 85 NT-Pro-B Natriuret Pep Total Protein 7.4 Albumin 4.4 Globulin 3.1 Albumin/Globulin Ratio 1.4 03/11/1506/04/18 06/04/18 18:05 18:05 18:16 WBC RBC Hgb Hct MCV MCH MCHC RDW Plt Count MPV Neut % (Auto) Lymph % (Auto) [place] % (Auto) Eos % (Auto) Baso % (Auto) Neut # (Auto) Lymph # (Auto) [place] # (Auto) Eos # (Auto) Baso # (Auto) ESR 27 H PT INR APTT Sodium Potassium Chloride Carbon Dioxide Anion Gap BUN Creatinine Est GFR ( Amer) Est GFR (Non-Af Amer) Random Glucose Lactic Acid 1.3 Calcium Total Bilirubin AST ALT Alkaline Phosphatase NT-Pro-B Natriuret Pep 1320 H Total Protein Albumin Globulin Albumin/Globulin Ratio Assessment & Plan (1) 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 Priority: High (2) 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
--- NOTE | 2018-06-05 16:37 | CP.PCM.PN ---
Subjective - Date & Time of Evaluation Date of Evaluation: 06/05/18 Time of Evaluation: 16:30 - Subjective Subjective: I D NOTE PATIENT EXAMINED ,CHART REVIEWED HAVE STARTED VANCOMYCIN/MEROPENEM FULL CONSULT DICYATED Objective - Vital Signs/Intake and Output Vital Signs (last 24 hours): Temp Pulse Resp BP Pulse Ox 97.7 F 87 20 137/69 90 L 06/05/18 08:58 06/05/18 08:58 06/05/18 08:58 06/05/18 08:58 06/05/18 08:58 - Medications Medications: Current Medications Albuterol (Ventolin Hfa 90 Mcg/Actuation (8 G)) 2 puff IH Q8 PRN PRN Reason: Shortness of Breath Amlodipine Besylate (Norvasc) 10 mg PO DAILY [facility]CLUD[facility] Last Admin: 06/05/18 08:54 Dose: 10 mg Apixaban (Eliquis) 2.5 mg PO Q12 [facility]; Protocol Last Admin: 06/05/18 08:50 Dose: 2.5 mg Aspirin (Ecotrin) 81 mg PO DAILY [facility] Last Admin: 06/05/18 08:49 Dose: 81 mg Atorvastatin Calcium (Lipitor) 20 mg PO HS [facility] Last Admin: 06/04/18 23:02 Dose: 20 mg Docusate Sodium (Colace) 100 mg PO BID [facility] Last Admin: 06/05/18 16:10 Dose: 100 mg Enalapril Maleate (Vasotec) 10 mg PO DAILY [facility] Last Admin: 06/05/18 08:54 Dose: 10 mg Furosemide (Lasix) 20 mg PO DAILY [facility] Last Admin: 06/05/18 08:53 Dose: 20 mg Clindamycin Phosphate (Cleocin) 600 mg in 50 mls @ 50 mls/hr IVPB Q8 [facility]; Protocol Last Admin: 06/05/18 16:10 Dose: 50 mls/hr Vancomycin HCl 1 gm/ Sodium (Chloride) 250 mls @ 166.667 mls/hr IVPB Q12 [facility]; Protocol Meropenem 1 gm/ Sodium (Chloride) 100 mls @ 100 mls/hr IVPB Q12 [facility]; Protocol Metoprolol Tartrate (Lopressor) 25 mg PO Q12 [facility] Last Admin: 06/05/18 08:54 Dose: 25 mg Tiotropium [place] (Spiriva) 18 mcg IH DAILY [facility] Last Admin: 06/05/18 08:54 Dose: 18 mcg Trimethoprim/Sulfamethoxazole (Bactrim Ds Tab) 2 tab PO Q12 [facility]; Protocol Last Admin: 06/05/18 08:49 Dose: 2 tab - Labs Labs: 06/04/18 14:45 06/04/18 14:45 PT 15.2 Seconds (9.8-13.1) H 06/04/18 14:45 INR 1.3 06/04/18 14:45 APTT 39.0 Seconds (25.6-37.1) H 06/04/18 14:45
[2018-06-05] MEDS: Meropenem 1 GM in Sodium Chloride 0.9% 100 ML IVPB SCH (20:28)
[2018-06-05] MEDS: Albuterol HFA 90 mcg/actuation (8 g) IH PRN (20:30)
--- NOTE | 2018-06-05 21:12 | CARD ---
APPROVED REPORT Date of service: 06/04/2018 EKG Measurement Heart [id number] <Conclusion> Atrial fibrillation Anterolateral infarct, age undetermined Abnormal ECG
--- NOTE | 2018-06-05 23:12 | CON ---
DATE: 06/05/2018 INFECTIOUS DISEASE CONSULT PATIENT OF: Torrey Branch MD HISTORY OF PRESENT ILLNESS: He is an 88-year-old male who was admitted for left lower extremity edema and erythema; erythema being in the inner thigh. The patient also has a history of COPD and CHF. After reviewing the past history it appears he has had some chronic infection of the left lower extremity. The patient is alert and not cooperative, having difficulty answering questions . PAST MEDICAL HISTORY: Includes atrial fibrillation, congestive heart failure, hypercholesterolemia, hypertension, and has peripheral edema, also COPD. PHYSICAL EXAMINATION: HEENT: Essentially within normal limits. NECK: Supple. LUNGS: Decreased breath sounds and rales at bases. HEART: Atrial fibrillation. ABDOMEN: Soft. Positive bowel sounds. EXTREMITIES: Left lower extremity has no infection but has cellulitis of the left lower extremity especially on the inner medial part of the thigh is somewhat darkened, purplish in color and there is some tenderness. Left lower extremity, the calf has also similar cellulitic appearance of the lower calf. The patient has also some tenderness in the inguinal area with lymphadenitis. LABORATORY DATA: Includes; sodium is 138, potassium 4.2, chloride is 97, BUN 21, creatinine 1, GFR is greater than 60. White count is 8.2. Has 16 lymphs, 16 monos, and 63 polys. Sed rate is 27. His ultrasound shows no DVT. Chest x-ray shows subsegmental atelectasis and mid lung field versus fluid tracing along the major fissure. There also appears to be right-sided effusion in the lung base including the CP angle region with patchy infiltrate and possibly segmented atelectasis in right lung base. ASSESSMENT AND PLAN: At present time we would consider diagnoses as left lower extremity cellulitis, rule out pneumonia possibly exacerbation of chronic obstructive pulmonary disease. Tonight, we will continue to start treatment with vancomycin and with meropenem. We will follow closely and consider changing antibiotics depending on the clinical response. Bhupinder Ochoa MD
[2018-06-06] MEDS: Clindamycin 600mg/50ml D5W 600 MG/50 ML VIAL IVPB SCH ×3 (00:08→16:12)
[2018-06-06] MEDS: Albuterol HFA 90 mcg/actuation (8 g) IH PRN ×2 (05:57→20:51)
[2018-06-06] MEDS: Tmp-Smz 800 mg-160 mg DS Tab PO SCH ×2 (08:19→20:25)
[2018-06-06] MEDS: Tiotropium 18 mcg Cap For Inhalation IH SCH (08:19)
[2018-06-06] MEDS: Meropenem 1 GM in Sodium Chloride 0.9% 100 ML IVPB SCH ×2 (08:24→20:30)
--- NOTE | 2018-06-06 11:20 | CP.PCM.CON ---
History of Present Illness - History of Present Illness History of Present Illness: Podiatry consult note - Dr. Alvarado 88M seen and evaluated at bedside for b/l LE cellulitis L>R. PMHx of CHF, HTN, HLD, and gout. Patient is resting comfortably. States that the redness in his legs started about 3 weeks ago and has gotten worse over time. States that he had minimal pain associated with the redness when it first started but denies any pain today. States he does not keep his legs elevated much when he is at home and has not been wearing compression stockings. Does not recall any trauma or inciting events to when his skin started to become red. Denies n/v/f/c/sob/cp at this time and has no other acute complaints. PMHx: above PSHx: back surgery All: NKDA Past Patient History - Past Medical History & Family History Past Medical History?: Yes - Past Social History Smoking Status: Never Smoked - CARDIAC Hx Cardiac Disorders: Yes Hx Atrial Fibrillation: Yes Hx Congestive Heart Failure: Yes Hx Hypercholesterolemia: Yes Hx Hypertension: Yes Hx Peripheral Edema: Yes - PULMONARY Hx Bronchitis: Yes Hx Chronic Obstructive Pulmonary Disease (COPD): Yes - NEUROLOGICAL Hx Neurological Disorder: No - HEENT Hx HEENT Problems: No - RENAL Hx Chronic Kidney Disease: No - ENDOCRINE/METABOLIC Hx Endocrine Disorders: No - HEMATOLOGICAL/ONCOLOGICAL Hx Human Immunodeficiency Virus (HIV): No - INTEGUMENTARY Other/Comment: skin lesion recently removed from left infra-ocular area - MUSCULOSKELETAL/RHEUMATOLOGICAL Hx Falls: No Hx Gout: Yes Hx Unsteady Gait: Yes (ambulates with cane) - GASTROINTESTINAL Hx Gastrointestinal Disorders: No - GENITOURINARY/GYNECOLOGICAL Hx Genitourinary Disorders: No - PSYCHIATRIC Hx Psychophysiologic Disorder: No Hx Substance Use: No - SURGICAL HISTORY Hx Valve Replacement: Yes (TAVR) Other/Comment: Laminectomy L3-L5 05/15/2017 - ANESTHESIA Hx Anesthesia: Yes Hx Anesthesia Reactions: No Hx Malignant Hyperthermia: No Meds Allergies/Adverse Reactions: Allergies Allergy/AdvReac Type Severity Reaction Status Date / Time No Known Allergies Allergy Verified 02/05/18 16:48 - Medications Medications: Current Medications Albuterol (Ventolin Hfa 90 Mcg/Actuation (8 G)) 2 puff IH Q8 PRN PRN Reason: Shortness of Breath Last Admin: 06/06/18 05:57 Dose: 2 puff Amlodipine Besylate (Norvasc) 10 mg PO DAILY [facility] Last Admin: 06/06/18 08:23 Dose: 10 mg Apixaban (Eliquis) 2.5 mg PO Q12 [facility]; Protocol Last Admin: 06/06/18 08:23 Dose: 2.5 mg Aspirin (Ecotrin) 81 mg PO DAILY [facility] Last Admin: 06/06/18 08:23 Dose: 81 mg Atorvastatin Calcium (Lipitor) 20 mg PO HS [facility] Last Admin: 06/05/18 21:13 Dose: 20 mg Docusate Sodium (Colace) 100 mg PO BID [facility] Last Admin: 06/06/18 08:22 Dose: 100 mg Enalapril Maleate (Vasotec) 10 mg PO DAILY [facility] Last Admin: 06/06/18 08:23 Dose: 10 mg Furosemide (Lasix) 20 mg PO DAILY [facility] Last Admin: 06/06/18 08:23 Dose: 20 mg Clindamycin Phosphate (Cleocin) 600 mg in 50 mls @ 50 mls/hr IVPB Q8 [facility]; Protocol Last Admin: 06/06/18 08:23 Dose: 50 mls/hr Meropenem 1 gm/ Sodium (Chloride) 100 mls @ 100 mls/hr IVPB Q12 [facility]; Protocol Last Admin: 06/06/18 08:24 Dose: 100 mls/hr Vancomycin HCl 1 gm/ Sodium (Chloride) 250 mls @ 166.667 mls/hr IVPB Q12@0600,1800 [facility]; Protocol Metoprolol Tartrate (Lopressor) 25 mg PO Q12 [facility] Last Admin: 06/06/18 08:23 Dose: 25 mg Tiotropium [place] (Spiriva) 18 mcg IH DAILY [facility] Last Admin: 06/06/18 08:19 Dose: 18 mcg Trimethoprim/Sulfamethoxazole (Bactrim Ds Tab) 2 tab PO Q12 [facility]; Protocol Last Admin: 06/06/18 08:19 Dose: 2 tab Physical Exam - Constitutional Appears: Non-toxic - Head Exam Head Exam: ATRAUMATIC - Extremities Exam Additional comments: VASC: DP and PT pulses nonpalpable 2/2 moderate pitting edema; cap refill <3 seconds to all digits; hair growth absent b/l; temp gradient warm to warm DERM: no open lesions or wounds present; erythema present at b/l lower extremities, L>>R; no streaking; skin does not isabel, redness does not dissipate on elevation ORTHO: no pain on palpation of b/l LE, no other gross pathology noted NEURO: gross and protective sensation intact - Neurological Exam Neurological exam: Alert, Oriented x3 - Psychiatric Exam Psychiatric exam: Normal Affect, Normal Mood Results - Vital Signs Recent Vital Signs: Last Vital Signs Temp 97.6 F 06/06/18 08:39 Pulse 75 06/06/18 08:39 Resp 20 06/06/18 08:39 BP 116/67 06/06/18 08:39 Pulse Ox 90 L 06/06/18 08:39 - Labs Result Diagrams: 06/04/18 14:45 06/04/18 14:45 Assessment & Plan - Assessment and Plan (Free Text) Assessment: 88M with b/l LE cellulitis Plan: Patient seen and evaluated Discussed in detail with Dr. Alvarado Afebrile, absent leukocytosis Continue IV abx per ID NAMRATA bandage b/l Warm compresses ordered Podiatry will continue to follow Thank you for the consult - Date & Time Date: 06/06/18 Time: 11:24
[2018-06-07] MEDS: Clindamycin 600mg/50ml D5W 600 MG/50 ML VIAL IVPB SCH ×2 (00:14→08:37)
[2018-06-07] MEDS: Albuterol HFA 90 mcg/actuation (8 g) IH PRN (06:48)
[2018-06-07] MEDS: Tmp-Smz 800 mg-160 mg DS Tab PO SCH ×2 (08:36→20:12)
[2018-06-07] MEDS: Tiotropium 18 mcg Cap For Inhalation IH SCH (08:39)
--- NOTE | 2018-06-07 08:40 | CP.PCM.PN ---
Subjective - Date & Time of Evaluation Date of Evaluation: 06/07/18 Time of Evaluation: 08:35 - Subjective Subjective: Podiatry progress note - Dr. Alvarado 89 y/o M patient seen and evaluated at the bedside for b/l LE cellulitis L>R. Patient states that he only have minimal pain in his legs. He denies any overnight acute events. He denies any overnight fever, nausea, vomiting, cough chills or shortness of breathing. at this time and has no other pedal complaints. Objective - Vital Signs/Intake and Output Vital Signs (last 24 hours): Temp Pulse Resp BP Pulse Ox 97.6 F 76 19 114/60 93 L 06/07/18 07:52 06/07/18 07:52 06/07/18 07:52 06/07/18 07:52 06/07/18 07:52 - Medications Medications: Current Medications Albuterol (Ventolin Hfa 90 Mcg/Actuation (8 G)) 2 puff IH Q8 PRN PRN Reason: Shortness of Breath Last Admin: 06/07/18 06:48 Dose: 2 puff Amlodipine Besylate (Norvasc) 10 mg PO DAILY [facility] Last Admin: 06/06/18 08:23 Dose: 10 mg Apixaban (Eliquis) 2.5 mg PO Q12 [facility]; Protocol Last Admin: 06/06/18 20:26 Dose: 2.5 mg Aspirin (Ecotrin) 81 mg PO DAILY [facility] Last Admin: 06/06/18 08:23 Dose: 81 mg Atorvastatin Calcium (Lipitor) 20 mg PO HS [facility] Last Admin: 06/06/18 21:11 Dose: 20 mg Docusate Sodium (Colace) 100 mg PO BID [facility] Last Admin: 06/06/18 16:13 Dose: 100 mg Enalapril Maleate (Vasotec) 10 mg PO DAILY [facility] Last Admin: 06/06/18 08:23 Dose: 10 mg Furosemide (Lasix) 20 mg PO DAILY [facility] Last Admin: 06/06/18 08:23 Dose: 20 mg Clindamycin Phosphate (Cleocin) 600 mg in 50 mls @ 50 mls/hr IVPB Q8 [facility]; Protocol Last Admin: 06/07/18 00:14 Dose: 50 mls/hr Meropenem 1 gm/ Sodium (Chloride) 100 mls @ 100 mls/hr IVPB Q12 [facility]; Protocol Last Admin: 06/06/18 20:30 Dose: 100 mls/hr Vancomycin HCl 1 gm/ Sodium (Chloride) 250 mls @ 166.667 mls/hr IVPB Q12@0600, 1800 [facility]; Protocol Last Admin: 06/07/18 05:03 Dose: 166.667 mls/hr Metoprolol Tartrate (Lopressor) 25 mg PO Q12 [facility] Last Admin: 06/06/18 20:28 Dose: 25 mg Tiotropium [place] (Spiriva) 18 mcg IH DAILY [facility] Last Admin: 06/06/18 08:19 Dose: 18 mcg Trimethoprim/Sulfamethoxazole (Bactrim Ds Tab) 2 tab PO Q12 [facility]; Protocol Last Admin: 06/06/18 20:25 Dose: 2 tab - Labs Labs: 06/04/18 14:45 06/04/18 14:45 PT 15.2 Seconds (9.8-13.1) H 06/04/18 14:45 INR 1.3 06/04/18 14:45 APTT 39.0 Seconds (25.6-37.1) H 06/04/18 14:45 - Constitutional Appears: Well, Non-toxic, No Acute Distress - Head Exam Head Exam: ATRAUMATIC, NORMOCEPHALIC - Extremities Exam Additional comments: B/L LE focused exam: VASC: DP/PT pulses non-palpable 2/2 moderate pitting edema; cap refill <3 seconds to all digits; hair growth absent b/l; temp gradient warm to warm NEURO: Gross and protective sensation intact DERM: No open lesions or wounds present; erythema present at b/l lower extremities, L>>R; no streaking; skin does not isabel, redness does not dis sipate on elevation ORTHO: No pain on palpation of b/l LE, no other gross pathology noted - Neurological Exam Neurological Exam: Alert, Awake, Oriented x3 - Psychiatric Exam Psychiatric exam: Normal Affect, Normal Mood Assessment and Plan - Assessment and Plan (Free Text) Assessment: 88 y/o M patient seen and evaluated at the bedside for b/l LE cellulitis Plan: Patient seen and evaluated Discussed in detail with Dr. Alvarado Charts, labs and vitals reviewed; Afebrile, absent leukocytosis Continue IV abx per ID Blood culture: No growth after 48 hours. No dressing applied to b/l LE. continue with Warm compresses Podiatry will continue to follow up the patient while in house.
[2018-06-07] MEDS: Meropenem 1 GM in Sodium Chloride 0.9% 100 ML IVPB SCH ×2 (09:47→21:01)
[2018-06-07 10:13] LABS: HEMOGLOBIN 10.8 g/dL (12.0-18.0); MEAN CELL VOLUME 94.2 fl (80.0-94.0); MEAN CORPUSCULAR HEMOGLOBIN 30.7 pg (27.0-31.0); MEAN CORPUSCULAR HGB CONC 32.6 g/dL (33.0-37.0); RBC 3.51 Mil/uL (4.40-5.90); RED CELL DISTRIBUTION WIDTH 17.1 % (11.5-14.5); WHITE BLOOD COUNT 7.6 K/uL (4.8-10.8)
[2018-06-07 10:39] LABS: ALB/GLOB RATIO 1.3 (1.0-2.1); ALBUMIN 3.5 g/dL (3.5-5.0); ALT/SGPT 21 U/L (21-72); AST/SGOT 19 U/L (17-59); BLOOD UREA NITROGEN 17 mg/dl (9-20); CALCIUM 8.7 mg/dL (8.4-10.2); GFR NON-AFRICAN AMERICAN > 60
[2018-06-07] MEDS: Albuterol-Ipratrop 3 mg / 0.5 (3 ml) UD INH SCH ×3 (11:22→19:46)
[2018-06-07] MEDS ORDERED: Lactulose 10 gm/15 ml Syrup PO PRN (11:33)
--- NOTE | 2018-06-07 11:47 | CP.PCM.PN ---
Subjective - Date & Time of Evaluation Date of Evaluation: 06/07/18 Time of Evaluation: 11:47 Objective - Vital Signs/Intake and Output Vital Signs (last 24 hours): Temp Pulse Resp BP Pulse Ox 97.6 F 76 19 114/60 93 L 06/07/18 07:52 06/07/18 08:39 06/07/18 07:52 06/07/18 08:39 06/07/18 07:52 - Medications Medications: Current Medications Albuterol (Ventolin Hfa 90 Mcg/Actuation (8 G)) 2 puff IH Q8 PRN PRN Reason: Shortness of Breath Last Admin: 06/07/18 06:48 Dose: 2 puff Albuterol/Ipratropium (Duoneb 3 Mg/0.5 Mg (3 Ml) Ud) 3 ml INH RQID [facility] Last Admin: 06/07/18 11:22 Dose: 3 ml Amlodipine Besylate (Norvasc) 10 mg PO DAILY [facility] Last Admin: 06/07/18 08:39 Dose: 10 mg Apixaban (Eliquis) 2.5 mg PO Q12 [facility]; Protocol Last Admin: 06/07/18 08:38 Dose: 2.5 mg Aspirin (Ecotrin) 81 mg PO DAILY [facility] Last Admin: 06/07/18 08:37 Dose: 81 mg Atorvastatin Calcium (Lipitor) 20 mg PO HS [facility] Last Admin: 06/06/18 21:11 Dose: 20 mg Docusate Sodium (Colace) 100 mg PO BID [facility] Last Admin: 06/07/18 08:37 Dose: 100 mg Enalapril Maleate (Vasotec) 10 mg PO DAILY [facility] Last Admin: 06/07/18 08:39 Dose: 10 mg Furosemide (Lasix) 20 mg PO DAILY [facility] Last Admin: 06/07/18 08:38 Dose: 20 mg Meropenem 1 gm/ Sodium (Chloride) 100 mls @ 100 mls/hr IVPB Q12 [facility]; Protocol Last Admin: 06/07/18 09:47 Dose: 100 mls/hr Vancomycin HCl 1 gm/ Sodium (Chloride) 250 mls @ 166.667 mls/hr IVPB Q12@0600,1800 [facility]; Protocol Last Admin: 06/07/18 05:03 Dose: 166.667 mls/hr Lactulose (Enulose) 10 gm PO DAILY PRN PRN Reason: Constipation Metoprolol Tartrate (Lopressor) 25 mg PO Q12 [facility] Last Admin: 06/07/18 08:38 Dose: 25 mg Tiotropium [place] (Spiriva) 18 mcg IH DAILY [facility] Last Admin: 06/07/18 08:39 Dose: 18 mcg Trimethoprim/Sulfamethoxazole (Bactrim Ds Tab) 2 tab PO Q12 [facility]; Protocol Last Admin: 06/07/18 08:36 Dose: 2 tab - Labs Labs: 06/07/18 09:55 06/07/18 09:55 PT 15.2 Seconds (9.8-13.1) H 06/04/18 14:45 INR 1.3 06/04/18 14:45 APTT 39.0 Seconds (25.6-37.1) H 06/04/18 14:45 Assessment and Plan (1) 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
[2018-06-07] MEDS ORDERED: Iodixanol 320 mg/ml 50 ml Sol IV ONE (18:00)
[2018-06-07] MEDS ORDERED: Iodixanol 320 MG/ML 100 ML BOTTLE IV ONE (18:00)
[2018-06-07] MEDS ORDERED: Sodium Chloride 0.9% 100 ML ONE (18:00)
--- NOTE | 2018-06-07 18:39 | CP.PCM.PN ---
Subjective - Date & Time of Evaluation Date of Evaluation: 06/07/18 Time of Evaluation: 22:22 - Subjective Subjective: above noted Objective - Vital Signs/Intake and Output Vital Signs (last 24 hours): Temp Pulse Resp BP Pulse Ox 97.2 F L 69 20 139/63 93 L 06/07/18 16:11 06/07/18 16:11 06/07/18 16:11 06/07/18 16:11 06/07/18 16:11 - Medications Medications: Current Medications Albuterol (Ventolin Hfa 90 Mcg/Actuation (8 G)) 2 puff IH Q8 PRN PRN Reason: Shortness of Breath Last Admin: 06/07/18 06:48 Dose: 2 puff Albuterol/Ipratropium (Duoneb 3 Mg/0.5 Mg (3 Ml) Ud) 3 ml INH RQID [facility] Last Admin: 06/07/18 15:59 Dose: 3 ml Amlodipine Besylate (Norvasc) 10 mg PO DAILY [facility] Last Admin: 06/07/18 08:39 Dose: 10 mg Apixaban (Eliquis) 2.5 mg PO Q12 [facility]; Protocol Last Admin: 06/07/18 08:38 Dose: 2.5 mg Aspirin (Ecotrin) 81 mg PO DAILY [facility] Last Admin: 06/07/18 08:37 Dose: 81 mg Atorvastatin Calcium (Lipitor) 20 mg PO HS [facility] Last Admin: 06/06/18 21:11 Dose: 20 mg Docusate Sodium (Colace) 100 mg PO BID [facility] Last Admin: 06/07/18 17:06 Dose: 100 mg Enalapril Maleate (Vasotec) 10 mg PO DAILY [facility] Last Admin: 06/07/18 08:39 Dose: 10 mg Furosemide (Lasix) 20 mg PO DAILY [facility] Last Admin: 06/07/18 08:38 Dose: 20 mg Meropenem 1 gm/ Sodium (Chloride) 100 mls @ 100 mls/hr IVPB Q12 [facility]; Protocol Last Admin: 06/07/18 09:47 Dose: 100 mls/hr Vancomycin HCl 1 gm/ Sodium (Chloride) 250 mls @ 166.667 mls/hr IVPB Q12@0600,1800 [facility]; Protocol Last Admin: 06/07/18 17:05 Dose: 166.667 mls/hr Lactulose (Enulose) 10 gm PO DAILY PRN PRN Reason: Constipation Metoprolol Tartrate (Lopressor) 25 mg PO Q12 [facility] Last Admin: 06/07/18 08:38 Dose: 25 mg Tiotropium [place] (Spiriva) 18 mcg IH DAILY [facility] Last Admin: 06/07/18 08:39 Dose: 18 mcg Trimethoprim/Sulfamethoxazole (Bactrim Ds Tab) 2 tab PO Q12 [facility]; Protocol Last Admin: 06/07/18 08:36 Dose: 2 tab - Labs Labs: 06/07/18 09:55 06/07/18 09:55 PT 15.2 Seconds (9.8-13.1) H 06/04/18 14:45 INR 1.3 06/04/18 14:45 APTT 39.0 Seconds (25.6-37.1) H 06/04/18 14:45 - Respiratory Exam Respiratory Exam: NORMAL BREATHING PATTERN - Cardiovascular Exam Cardiovascular Exam: REGULAR RHYTHM - GI/Abdominal Exam GI & Abdominal Exam: Normal Bowel Sounds Assessment and Plan - Assessment and Plan (Free Text) Assessment: LLE ?? edema cellulitis ?? ecchymosis?? ID Podiatry COPD COSA Smoker Pulmonary CHF Afib S/P TAVR Diuretics Lovenox Cardiology Eliquis 2.5 BID HTN Prediabetes Hx Hypokalemia Hyperkalemia Hx Illeus large bowel etiol? S/P Colonoscopy decompression As per GI Hx Low back surgery (Severe Spinal Stenosis) Post operative illeus - Date & Time Date: 06/05/18 Time: 22:22
[2018-06-08] MEDS: Albuterol HFA 90 mcg/actuation (8 g) IH PRN (07:27)
[2018-06-08] MEDS: Albuterol-Ipratrop 3 mg / 0.5 (3 ml) UD INH SCH ×4 (08:01→19:33)
--- NOTE | 2018-06-08 08:01 | CT ---
Date of service: 06/07/2018 PROCEDURE: CT Angiography Abdomen, Pelvis and Lower Extremity with Contrast HISTORY: LE wound COMPARISON: None available. TECHNIQUE: Technique: CT angiography of the abdomen, pelvis and bilateral lower extremities performed in the arterial phase of enhancement. Coronal and sagittal reformats, and well as rotating MIP images of the vessels generated at the workstation. Intravenous contrast dose: 140 cubic centimeters Visipaque 320 Radiation dose: Total exam DLP = 1465.14 mGy-cm. This CT exam was performed using one or more of the following dose reduction techniques: Automated exposure control, adjustment of the mA and/or kV according to patient size, and/or use of iterative reconstruction technique. FINDINGS: CT ANGIOGRAPHY: ABDOMINAL AORTA:: There is moderate soft plaque in the infrarenal aorta without aneurysm or stenosis. MAJOR AORTIC BRANCHES: Celiac Rudyard: Unremarkable. Superior mesenteric artery: Unremarkable. Inferior mesenteric artery: Unremarkable. Renal arteries: Unremarkable. 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 Right External Iliac: Unremarkable. Right Internal Iliac: Unremarkable. 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 Left External Iliac: Unremarkable. Left Internal Iliac: Unremarkable. RIGHT LOWER EXTREMITY ARTERIES: Right Common Femoral: Unremarkable. Right Superficial Femoral: Plaque in the SFA without significant stenosis. Right Profunda Femoris: Unremarkable. Right Popliteal:Unremarkable. Right Anterior Tibial: Mild calcific plaque but otherwise patent. Right Tibioperoneal Trunk: Unremarkable. Right Posterior Tibial: Moderate calcific plaque limits evaluation. Possible mild to severe stenosis of the proximal segment. Right Peroneal: Unremarkable. Right dorsalis pedis : Unremarkable. LEFT LOWER EXTREMITY ARTERIES: Left Common Femoral: Unremarkable. Left Superficial Femoral: Mild plaque in the SFA without significant stenosis. Left Profunda Femoris: Unremarkable. Left Popliteal: Unremarkable. Left Anterior Tibial: Unremarkable. Left Tibioperoneal Trunk: Unremarkable. Left Posterior Tibial: Moderate calcific plaque limits evaluation. Possible moderate stenosis throughout posterior tibial artery. Left Peroneal: Unremarkable. Left Dorsalis pedis: Unremarkable. NON-ANGIOGRAPHIC ASPECT OF THE EXAM: LOWER THORAX: Unremarkable. LIVER: Unremarkable. No gross lesion or ductal dilatation. GALLBLADDER AND BILE DUCTS: Unremarkable. PANCREAS: Unremarkable. No gross lesion or ductal dilatation. SPLEEN: Unremarkable. ADRENALS: Unremarkable. No mass. KIDNEYS AND URETERS: Unremarkable. No hydronephrosis. No solid mass. STOMACH AND BOWEL: Limited evaluation without PO contrast. No obstruction. No gross mural thickening. APPENDIX: PERITONEUM: Unremarkable. No free fluid. No free air. LYMPH NODES: Unremarkable. No enlarged lymph nodes. BLADDER: Thickened bladder wall. This may relate to bladder outlet obstruction. REPRODUCTIVE: Prostate is enlarged measuring 6.4 centimeters. BONES: No acute fracture. OTHER FINDINGS: None. IMPRESSION: CT ANGIOGRAM ABDOMEN/PELVIS: 1. There is moderate soft plaque in the infrarenal aorta which is otherwise unremarkable. 2. 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 LEFT LOWER EXTREMITY CT ANGIOGRAM: 1. The common femoral artery, profunda femoral artery, superficial femoral artery and popliteal artery are essentially unremarkable. 2. Runoff shows a patent peroneal artery and anterior tibial artery. There is moderate plaque in the posterior tibial artery which limits evaluation. There believed to be moderate stenosis in the posterior tibial artery. RIGHT LOWER EXTREMITY CT ANGIOGRAM: 1. The common femoral artery, profunda femoral artery, superficial femoral artery, and popliteal artery are unremarkable. 2. Runoff shows patent peroneal artery and anterior tibial artery. Moderate plaque in the posterior tibial artery limits evaluation. Possible severe stenosis of the proximal posterior tibial artery. NONVASCULAR FINDINGS: 1. Enlarged prostate is 6.4 centimeters per 2. Thickened bladder wall which may relate to chronic bladder outlet obstruction. Clinical correlation recommended.
[2018-06-08] MEDS: Tiotropium 18 mcg Cap For Inhalation IH SCH (09:05)
[2018-06-08] MEDS: Tmp-Smz 800 mg-160 mg DS Tab PO SCH ×2 (09:08→20:46)
[2018-06-08] MEDS: Meropenem 1 GM in Sodium Chloride 0.9% 100 ML IVPB SCH ×2 (09:15→20:46)
--- NOTE | 2018-06-08 09:49 | CP.PCM.PN ---
Subjective - Date & Time of Evaluation Date of Evaluation: 06/08/18 Time of Evaluation: 09:47 - Subjective Subjective: Podiatry progress note - Dr. Alvarado 88 y/o M patient seen and evaluated at the bedside with Dr. Alvarado for b/l LE cellulitis L>R. Patient states that he only have minimal pain in his legs. He denies any overnight acute events. He denies any overnight fever, nausea, vomiting, cough chills or shortness of breathing. at this time and has no other pedal complaints. Objective - Vital Signs/Intake and Output Vital Signs (last 24 hours): Temp Pulse Resp BP Pulse Ox 97.6 F 88 19 136/70 89 L 06/08/18 00:32 06/08/18 09:09 06/08/18 00:32 06/08/18 09:09 06/08/18 08:09 - Medications Medications: Current Medications Albuterol (Ventolin Hfa 90 Mcg/Actuation (8 G)) 2 puff IH Q8 PRN PRN Reason: Shortness of Breath Last Admin: 06/08/18 07:27 Dose: 2 puff Albuterol/Ipratropium (Duoneb 3 Mg/0.5 Mg (3 Ml) Ud) 3 ml INH RQID [facility] Last Admin: 06/08/18 08:01 Dose: 3 ml Amlodipine Besylate (Norvasc) 10 mg PO DAILY [facility] Last Admin: 06/08/18 09:09 Dose: 10 mg Apixaban (Eliquis) 2.5 mg PO Q12 [facility]; Protocol Last Admin: 06/08/18 09:06 Dose: 2.5 mg Aspirin (Ecotrin) 81 mg PO DAILY [facility] Last Admin: 06/08/18 09:05 Dose: 81 mg Atorvastatin Calcium (Lipitor) 20 mg PO HS [facility] Last Admin: 06/07/18 21:04 Dose: 20 mg Docusate Sodium (Colace) 100 mg PO BID [facility] Last Admin: 06/08/18 09:04 Dose: 100 mg Enalapril Maleate (Vasotec) 10 mg PO DAILY [facility] Last Admin: 06/08/18 09:05 Dose: 10 mg Furosemide (Lasix) 20 mg PO DAILY [facility] Last Admin: 06/08/18 09:07 Dose: 20 mg Meropenem 1 gm/ Sodium (Chloride) 100 mls @ 100 mls/hr IVPB Q12 [facility]; Protocol Last Admin: 06/08/18 09:15 Dose: 100 mls/hr Vancomycin HCl 1 gm/ Sodium (Chloride) 250 mls @ 166.667 mls/hr IVPB Q12@0600,1800 [facility]; Protocol Last Admin: 06/08/18 05:00 Dose: 166.667 mls/hr Lactulose (Enulose) 10 gm PO DAILY PRN PRN Reason: Constipation Last Admin: 06/07/18 19:17 Dose: 10 gm Metoprolol Tartrate (Lopressor) 25 mg PO Q12 [facility] Last Admin: 06/08/18 09:06 Dose: 25 mg Tiotropium [place] (Spiriva) 18 mcg IH DAILY [facility] Last Admin: 06/08/18 09:05 Dose: 18 mcg Trimethoprim/Sulfamethoxazole (Bactrim Ds Tab) 2 tab PO Q12 [facility]; Protocol Last Admin: 06/08/18 09:08 Dose: 2 tab - Labs Labs: 06/07/18 09:55 06/07/18 09:55 PT 15.2 Seconds (9.8-13.1) H 06/04/18 14:45 INR 1.3 06/04/18 14:45 APTT 39.0 Seconds (25.6-37.1) H 06/04/18 14:45 - Constitutional Appears: Well, Non-toxic, No Acute Distress - Head Exam Head Exam: ATRAUMATIC, NORMOCEPHALIC - Extremities Exam Additional comments: B/L LE focused exam: VASC: DP/PT pulses non-palpable 2/2 moderate pitting edema; cap refill <3 seconds to all digits; hair growth absent b/l; temp gradient warm to warm NEURO: Gross and protective sensation intact DERM: No open lesions or wounds present; erythema present at b/l lower extremities, L>>R; no streaking; skin does not isabel, redness does not dissipate on elevation, Improving. MSK: No pain on palpation of b/l LE, no other gross pathology noted - Neurological Exam Neurological Exam: Alert, Awake, Oriented x3 - Psychiatric Exam Psychiatric exam: Normal Affect, Normal Mood Assessment and Plan - Assessment and Plan (Free Text) Assessment: 88 y/o M patient seen and evaluated at the bedside for b/l LE cellulitis Plan: Patient seen and evaluated with Dr. Alvarado Discussed in detail with Dr. Alvarado Charts, labs and vitals reviewed; Afebrile, absent leukocytosis Continue IV abx per ID Blood culture: No growth after 3 days. No dressing applied to b/l LE. continue with Warm compresses. Ordered PT evaluation. Toe nails debrided using sterile nail nippers. Patient tolerated the nail deberidement well with no complications. Podiatry will continue to follow up the patient while in house.
--- NOTE | 2018-06-08 10:14 | RAD ---
Date of service: 06/08/2018 HISTORY: pleural effusion COMPARISON: Frontal chest 06/04/2018. TECHNIQUE: Chest PA and lateral FINDINGS: LUNGS: Prior linear atelectasis or fluid in the minor fissure appears to have nearly completely resolved. However, bilateral medial basilar airspace disease persists at the right and appears new at the left. PLEURA: No significant pleural effusion identified. No pneumothorax apparent. CARDIOVASCULAR: Calcific atherosclerotic changes are seen related to the thoracic aorta. Normal cardiac size. No pulmonary vascular congestion. OSSEOUS STRUCTURES: No significant abnormalities. VISUALIZED UPPER ABDOMEN: Normal. OTHER FINDINGS: None. IMPRESSION: Right minor fissure effusion nearly completely resolved versus atelectasis. Medial basilar airspace disease unchanged at the medial right base and newly identified at the medial left base probably reflecting atelectasis. Otherwise stable and unremarkable.
--- NOTE | 2018-06-08 18:28 | CP.PCM.PN ---
Subjective - Date & Time of Evaluation Date of Evaluation: 06/08/18 Time of Evaluation: 22:22 - Subjective Subjective: Above noted Long d/w staff Objective - Vital Signs/Intake and Output Vital Signs (last 24 hours): Temp Pulse Resp BP Pulse Ox 97.3 F L 79 20 112/53 L 92 L 06/08/18 16:27 06/08/18 16:27 06/08/18 16:27 06/08/18 16:27 06/08/18 16:27 - Medications Medications: Current Medications Albuterol (Ventolin Hfa 90 Mcg/Actuation (8 G)) 2 puff IH Q8 PRN PRN Reason: Shortness of Breath Last Admin: 06/08/18 07:27 Dose: 2 puff Albuterol/Ipratropium (Duoneb 3 Mg/0.5 Mg (3 Ml) Ud) 3 ml INH RQID [facility] Last Admin: 06/08/18 15:31 Dose: 3 ml Amlodipine Besylate (Norvasc) 10 mg PO DAILY [facility] Last Admin: 06/08/18 09:09 Dose: 10 mg Apixaban (Eliquis) 2.5 mg PO Q12 [facility]; Protocol Last Admin: 06/08/18 09:06 Dose: 2.5 mg Aspirin (Ecotrin) 81 mg PO DAILY [facility] Last Admin: 06/08/18 09:05 Dose: 81 mg Atorvastatin Calcium (Lipitor) 20 mg PO HS [facility] Last Admin: 06/07/18 21:04 Dose: 20 mg Docusate Sodium (Colace) 100 mg PO BID [facility] Last Admin: 06/08/18 16:54 Dose: 100 mg Enalapril Maleate (Vasotec) 10 mg PO DAILY [facility] Last Admin: 06/08/18 09:05 Dose: 10 mg Furosemide (Lasix) 20 mg PO DAILY [facility] Last Admin: 06/08/18 09:07 Dose: 20 mg Meropenem 1 gm/ Sodium (Chloride) 100 mls @ 100 mls/hr IVPB Q12 [facility]; Protocol Last Admin: 06/08/18 09:15 Dose: 100 mls/hr Vancomycin HCl 1 gm/ Sodium (Chloride) 250 mls @ 166.667 mls/hr IVPB Q12@0600,1800 [facility]; Protocol Last Admin: 06/08/18 05:00 Dose: 166.667 mls/hr Lactulose (Enulose) 10 gm PO DAILY PRN PRN Reason: Constipation Last Admin: 06/07/18 19:17 Dose: 10 gm Metoprolol Tartrate (Lopressor) 25 mg PO Q12 [facility] Last Admin: 06/08/18 09:06 Dose: 25 mg Tiotropium [place] (Spiriva) 18 mcg IH DAILY [facility] Last Admin: 06/08/18 09:05 Dose: 18 mcg Trimethoprim/Sulfamethoxazole (Bactrim Ds Tab) 2 tab PO Q12 [facility]; Protocol Last Admin: 06/08/18 09:08 Dose: 2 tab - Labs Labs: 06/07/18 09:55 06/07/18 09:55 PT 15.2 Seconds (9.8-13.1) H 06/04/18 14:45 INR 1.3 06/04/18 14:45 APTT 39.0 Seconds (25.6-37.1) H 06/04/18 14:45 - Respiratory Exam Respiratory Exam: NORMAL BREATHING PATTERN - Cardiovascular Exam Cardiovascular Exam: REGULAR RHYTHM - GI/Abdominal Exam GI & Abdominal Exam: Normal Bowel Sounds Assessment and Plan - Assessment and Plan (Free Text) Assessment: LLE ?? edema cellulitis ?? ecchymosis?? ID Podiatry IV ABX Endovascular consult ??? CT scan done COPD COSA Smoker Pulmonary CHF Afib S/P TAVR Diuretics Cardiology Eliquis 2.5 BID HTN Prediabetes Hx Hypokalemia Hyperkalemia Hx Illeus large bowel etiol? S/P Colonoscopy decompression As per GI Hx Low back surgery (Severe Spinal Stenosis) Post operative illeus
--- NOTE | 2018-06-08 18:38 | CP.PCM.CON ---
History of Present Illness - History of Present Illness History of Present Illness: Endovascular consultation for evaluation of PVD HPI: Review of Systems - Review of Systems Systems not reviewed;Unavailable: Acuity of Condition - Constitutional Constitutional: As Per HPI - EENT Eyes: As Per HPI Ears: As Per HPI Nose/Mouth/Throat: As Per HPI - Cardiovascular Cardiovascular: As Per HPI - Respiratory Respiratory: As Per HPI - Gastrointestinal Gastrointestinal: As Per HPI - Genitourinary Genitourinary: As Per HPI - Reproductive: Male Reproductive:Male: As Per HPI - Musculoskeletal Musculoskeletal: As Per HPI - Integumentary Integumentary: As Per HPI - Neurological Neurological: As Per HPI - Psychiatric Psychiatric: As Per HPI - Endocrine Endocrine: As Per HPI - Hematologic/Lymphatic Hematologic: As Per HPI Past Patient History - Past Medical History & Family History Past Medical History?: Yes - Past Social History Smoking Status: Never Smoked - CARDIAC Hx Cardiac Disorders: Yes Hx Atrial Fibrillation: Yes Hx Congestive Heart Failure: Yes Hx Hypercholesterolemia: Yes Hx Hypertension: Yes Hx Peripheral Edema: Yes - PULMONARY Hx Bronchitis: Yes Hx Chronic Obstructive Pulmonary Disease (COPD): Yes - NEUROLOGICAL Hx Neurological Disorder: No - HEENT Hx HEENT Problems: No - RENAL Hx Chronic Kidney Disease: No - ENDOCRINE/METABOLIC Hx Endocrine Disorders: No - HEMATOLOGICAL/ONCOLOGICAL Hx Human Immunodeficiency Virus (HIV): No - INTEGUMENTARY Other/Comment: skin lesion recently removed from left infra-ocular area - MUSCULOSKELETAL/RHEUMATOLOGICAL Hx Falls: No Hx Gout: Yes Hx Unsteady Gait: Yes (ambulates with cane) - GASTROINTESTINAL Hx Gastrointestinal Disorders: No - GENITOURINARY/GYNECOLOGICAL Hx Genitourinary Disorders: No - PSYCHIATRIC Hx Psychophysiologic Disorder: No Hx Substance Use: No - SURGICAL HISTORY Hx Valve Replacement: Yes (TAVR) Other/Comment: Laminectomy L3-L5 05/15/2017 - ANESTHESIA Hx Anesthesia: Yes Hx Anesthesia Reactions: No Hx Malignant Hyperthermia: No Meds Allergies/Adverse Reactions: Allergies Allergy/AdvReac Type Severity Reaction Status Date / Time No Known Allergies Allergy Verified 02/05/18 16:48 - Medications Medications: Current Medications Albuterol (Ventolin Hfa 90 Mcg/Actuation (8 G)) 2 puff IH Q8 PRN PRN Reason: Shortness of Breath Last Admin: 06/08/18 07:27 Dose: 2 puff Albuterol/Ipratropium (Duoneb 3 Mg/0.5 Mg (3 Ml) Ud) 3 ml INH RQID [facility] Last Admin: 06/08/18 15:31 Dose: 3 ml Amlodipine Besylate (Norvasc) 10 mg PO DAILY [facility] Last Admin: 06/08/18 09:09 Dose: 10 mg Apixaban (Eliquis) 2.5 mg PO Q12 [facility]; Protocol Last Admin: 06/08/18 09:06 Dose: 2.5 mg Aspirin (Ecotrin) 81 mg PO DAILY [facility] Last Admin: 06/08/18 09:05 Dose: 81 mg Atorvastatin Calcium (Lipitor) 20 mg PO HS [facility] Last Admin: 06/07/18 21:04 Dose: 20 mg Docusate Sodium (Colace) 100 mg PO BID [facility] Last Admin: 06/08/18 16:54 Dose: 100 mg Enalapril Maleate (Vasotec) 10 mg PO DAILY [facility] Last Admin: 06/08/18 09:05 Dose: 10 mg Furosemide (Lasix) 20 mg PO DAILY [facility] Last Admin: 06/08/18 09:07 Dose: 20 mg Meropenem 1 gm/ Sodium (Chloride) 100 mls @ 100 mls/hr IVPB Q12 [facility]; Protocol Last Admin: 06/08/18 09:15 Dose: 100 mls/hr Vancomycin HCl 1 gm/ Sodium (Chloride) 250 mls @ 166.667 mls/hr IVPB Q12@0600,1800 [facility]; Protocol Last Admin: 06/08/18 18:36 Dose: Not Given Lactulose (Enulose) 10 gm PO DAILY PRN PRN Reason: Constipation Last Admin: 06/07/18 19:17 Dose: 10 gm Metoprolol Tartrate (Lopressor) 25 mg PO Q12 [facility] Last Admin: 06/08/18 09:06 Dose: 25 mg Tiotropium [place] (Spiriva) 18 mcg IH DAILY [facility] Last Admin: 06/08/18 09:05 Dose: 18 mcg Trimethoprim/Sulfamethoxazole (Bactrim Ds Tab) 2 tab PO Q12 [facility]; Protocol Last Admin: 06/08/18 09:08 Dose: 2 tab Physical Exam - Constitutional Appears: Well - Head Exam Head Exam: ATRAUMATIC, NORMAL INSPECTION, NORMOCEPHALIC - Eye Exam Eye Exam: EOMI, Normal appearance, PERRL Pupil Exam: NORMAL ACCOMODATION, PERRL - ENT Exam ENT Exam: Mucous Membranes Moist, Normal Exam - Neck Exam Neck exam: Positive for: Normal Inspection - Respiratory Exam Respiratory Exam: Clear to Auscultation Bilateral, NORMAL BREATHING PATTERN - Cardiovascular Exam Cardiovascular Exam: REGULAR RHYTHM - GI/Abdominal Exam GI & Abdominal Exam: Normal Bowel Sounds, Soft. absent: Tenderness - Extremities Exam Extremities exam: Positive for: normal inspection - Back Exam Back exam: NORMAL INSPECTION - Neurological Exam Neurological exam: Alert, CN II-XII Intact, Normal Gait, Oriented x3, Reflexes Normal - Psychiatric Exam Psychiatric exam: Normal Affect, Normal Mood - Skin Skin Exam: Dry, Intact, Normal Color, Warm Results - Vital Signs Recent Vital Signs: Last Vital Signs Temp 97.3 F L 06/08/18 16:27 Pulse 79 06/08/18 16:27 Resp 20 06/08/18 16:27 BP 112/53 L 06/08/18 16:27 Pulse Ox 92 L 06/08/18 16:27 - Labs Result Diagrams: 06/07/18 09:55 06/07/18 09:55 Labs: Laboratory Results - last 24 hr 06/08/18 17:41 Vancomycin Trough 16.7 H Assessment & Plan (1) PVD (peripheral vascular disease) Status: Acute (2) Cellulitis Status: Acute (3) Leg pain Status: Acute Priority: High (4) Leukocytosis Status: Acute (5) Leg edema Status: Chronic Priority: High (6) 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
--- NOTE | 2018-06-08 19:29 | CP.PCM.PN ---
Subjective - Date & Time of Evaluation Date of Evaluation: 06/08/18 Time of Evaluation: 19:25 - Subjective Subjective: I D NOTE ERYTHEMA HAS IMPROVE LESS PAIN TROUGH IS HIGH FOR VANCOMYCIN HAVE HELD DOSING TONITE Objective - Vital Signs/Intake and Output Vital Signs (last 24 hours): Temp Pulse Resp BP Pulse Ox 97.3 F L 79 20 112/53 L 92 L 06/08/18 17:00 06/08/18 17:00 06/08/18 17:00 06/08/18 17:00 06/08/18 17:00 - Medications Medications: Current Medications Albuterol (Ventolin Hfa 90 Mcg/Actuation (8 G)) 2 puff IH Q8 PRN PRN Reason: Shortness of Breath Last Admin: 06/08/18 07:27 Dose: 2 puff Albuterol/Ipratropium (Duoneb 3 Mg/0.5 Mg (3 Ml) Ud) 3 ml INH RQID [facility] Last Admin: 06/08/18 15:31 Dose: 3 ml Amlodipine Besylate (Norvasc) 10 mg PO DAILY [facility] Last Admin: 06/08/18 09:09 Dose: 10 mg Apixaban (Eliquis) 2.5 mg PO Q12 [facility]; Protocol Last Admin: 06/08/18 09:06 Dose: 2.5 mg Aspirin (Ecotrin) 81 mg PO DAILY [facility] Last Admin: 06/08/18 09:05 Dose: 81 mg Atorvastatin Calcium (Lipitor) 20 mg PO HS [facility] Last Admin: 06/07/18 21:04 Dose: 20 mg Docusate Sodium (Colace) 100 mg PO BID [facility] Last Admin: 06/08/18 16:54 Dose: 100 mg Enalapril Maleate (Vasotec) 10 mg PO DAILY [facility] Last Admin: 06/08/18 09:05 Dose: 10 mg Furosemide (Lasix) 20 mg PO DAILY [facility] Last Admin: 06/08/18 09:07 Dose: 20 mg Meropenem 1 gm/ Sodium (Chloride) 100 mls @ 100 mls/hr IVPB Q12 [facility]; Protocol Last Admin: 06/08/18 09:15 Dose: 100 mls/hr Vancomycin HCl 1 gm/ Sodium (Chloride) 250 mls @ 166.667 mls/hr IVPB Q12@06 00,1800 [facility]; Protocol Last Admin: 06/08/18 18:36 Dose: Not Given Lactulose (Enulose) 10 gm PO DAILY PRN PRN Reason: Constipation Last Admin: 06/07/18 19:17 Dose: 10 gm Metoprolol Tartrate (Lopressor) 25 mg PO Q12 [facility] Last Admin: 06/08/18 09:06 Dose: 25 mg Tiotropium [place] (Spiriva) 18 mcg IH DAILY [facility] Last Admin: 06/08/18 09:05 Dose: 18 mcg Trimethoprim/Sulfamethoxazole (Bactrim Ds Tab) 2 tab PO Q12 [facility]; Protocol Last Admin: 06/08/18 09:08 Dose: 2 tab - Labs Labs: 06/07/18 09:55 06/07/18 09:55 PT 15.2 Seconds (9.8-13.1) H 06/04/18 14:45 INR 1.3 06/04/18 14:45 APTT 39.0 Seconds (25.6-37.1) H 06/04/18 14:45
--- NOTE | 2018-06-08 20:23 | CP.PCM.PN ---
Subjective - Date & Time of Evaluation Date of Evaluation: 06/08/18 Time of Evaluation: 20:21 - Subjective Subjective: Ulises Gibbons, PGY-1, Cardiology Progress Note for Dr. Obregon Patient seen and evaluated at bedside. Patient had no acute overnight events. Patient reported shortness of breath with exertion but had no other complaints at this time. Objective - Vital Signs/Intake and Output Vital Signs (last 24 hours): Temp Pulse Resp BP Pulse Ox 97.3 F L 79 20 112/53 L 92 L 06/08/18 17:00 06/08/18 17:00 06/08/18 17:00 06/08/18 17:00 06/08/18 17:00 - Medications Medications: Current Medications Albuterol (Ventolin Hfa 90 Mcg/Actuation (8 G)) 2 puff IH Q8 PRN PRN Reason: Shortness of Breath Last Admin: 06/08/18 07:27 Dose: 2 puff Albuterol/Ipratropium (Duoneb 3 Mg/0.5 Mg (3 Ml) Ud) 3 ml INH RQID [facility] Last Admin: 06/08/18 19:33 Dose: 3 ml Amlodipine Besylate (Norvasc) 10 mg PO DAILY [facility] Last Admin: 06/08/18 09:09 Dose: 10 mg Apixaban (Eliquis) 2.5 mg PO Q12 [facility]; Protocol Last Admin: 06/08/18 09:06 Dose: 2.5 mg Aspirin (Ecotrin) 81 mg PO DAILY [facility] Last Admin: 06/08/18 09:05 Dose: 81 mg Atorvastatin Calcium (Lipitor) 20 mg PO HS [facility] Last Admin: 06/07/18 21:04 Dose: 20 mg Docusate Sodium (Colace) 100 mg PO BID [facility] Last Admin: 06/08/18 16:54 Dose: 100 mg Enalapril Maleate (Vasotec) 10 mg PO DAILY [facility] Last Admin: 06/08/18 09:05 Dose: 10 mg Furosemide (Lasix) 20 mg PO DAILY [facility] Last Admin: 06/08/18 09:07 Dose: 20 mg Meropenem 1 gm/ Sodium (Chloride) 100 mls @ 100 mls/hr IVPB Q12 [facility]; Protocol Last Admin: 06/08/18 09:15 Dose: 100 mls/hr Vancomycin HCl 1 gm/ Sodium (Chloride) 250 mls @ 166.667 mls/hr IVPB Q12@0600,1800 [facility]; Protocol Last Admin: 06/08/18 18:36 Dose: Not Given Lactulose (Enulose) 10 gm PO DAILY PRN PRN Reason: Constipation Last Admin: 06/07/18 19:17 Dose: 10 gm Metoprolol Tartrate (Lopressor) 25 mg PO Q12 [facility] Last Admin: 06/08/18 09:06 Dose: 25 mg Tiotropium [place] (Spiriva) 18 mcg IH DAILY [facility] Last Admin: 06/08/18 09:05 Dose: 18 mcg Trimethoprim/Sulfamethoxazole (Bactrim Ds Tab) 2 tab PO Q12 [facility]; Protocol Last Admin: 06/08/18 09:08 Dose: 2 tab - Labs Labs: 06/07/18 09:55 06/07/18 09:55 PT 15.2 Seconds (9.8-13.1) H 06/04/18 14:45 INR 1.3 06/04/18 14:45 APTT 39.0 Seconds (25.6-37.1) H 06/04/18 14:45 - Constitutional Appears: Well, Non-toxic, No Acute Distress - Head Exam Head Exam: ATRAUMATIC, NORMAL INSPECTION, NORMOCEPHALIC - Eye Exam Eye Exam: EOMI, PERRL - ENT Exam ENT Exam: Mucous Membranes Moist - Respiratory Exam Respiratory Exam: Clear to Ausculation Bilateral, NORMAL BREATHING PATTERN - Cardiovascular Exam Cardiovascular Exam: Tachycardia, Irregular Rhythm, +S1, +S2 - GI/Abdominal Exam GI & Abdominal Exam: Soft, Normal Bowel Sounds. absent: Tenderness - Extremities Exam Extremities Exam: Full ROM, Normal Capillary Refill, Normal Inspection - Neurological Exam Neurological Exam: Alert, Awake, CN II-XII Intact, Oriented x3 - Skin Additional comments: bilateral lower extremity edema +4, erythematous bilateral lower extremities below the knee Assessment and Plan - Assessment and Plan (Free Text) Assessment: Hypertension Atrial Fibrillation COPD CHF status post TAVR with preserved EF but dilated LA and aortic stenosis Plan: Hypertension Atrial Fibrillation CHF status post TAVR with preserved EF but dilated LA and aortic stenosis Echocardiogram 01/14: LVEF of 55-60% with severely dilated LA and aortic stenosis CT angiogram of bilateral lower extremities: bilateral iliac aneursym, moderate stenosis of posterior tibial artery on the left, severe stenosis of posterior tibial artery on the right Duplex ultrasound: no evidence of DVT EKG: atrial fibrillation with HR: 81 Recommend keeping legs elevated above head Medications: aspirin lipitor enalapril lasix 20 mg PO daily lopressor norvasc eliquis
[2018-06-09 01:02] VITALS: O2SAT 90
[2018-06-09] MEDS: Albuterol HFA 90 mcg/actuation (8 g) IH PRN (06:25)
[2018-06-09] MEDS: Albuterol-Ipratrop 3 mg / 0.5 (3 ml) UD INH SCH ×2 (07:48→11:33)
[2018-06-09 08:47] VITALS: BP 123/72; RESP 18; TEMP 97.6
[2018-06-09] MEDS ORDERED: Clindamycin 600mg/50ml D5W 600 MG/50 ML VIAL IVPB SCH (09:00)
[2018-06-09] MEDS: Tiotropium 18 mcg Cap For Inhalation IH SCH (09:32)
[2018-06-09] MEDS: Tmp-Smz 800 mg-160 mg DS Tab PO SCH (09:33)
[2018-06-09] MEDS: Meropenem 1 GM in Sodium Chloride 0.9% 100 ML IVPB SCH (09:35)
--- NOTE | 2018-06-09 09:39 | CP.PCM.PN ---
Subjective - Date & Time of Evaluation Date of Evaluation: 06/09/18 Time of Evaluation: 09:35 - Subjective Subjective: Ulises Gibbons, PGY-1, Cardiology Progress Note for Dr. Obregon Patient seen and evaluated at bedside. Patient had no acute overnight events. Patient reported shortness of breath with exertion but had no other complaints at this time. Objective - Vital Signs/Intake and Output Vital Signs (last 24 hours): Temp Pulse Resp BP Pulse Ox 97.6 F 69 18 123/72 90 L 06/09/18 08:46 06/09/18 08:46 06/09/18 08:46 06/09/18 08:46 06/09/18 00:01 - Medications Medications: Current Medications Albuterol (Ventolin Hfa 90 Mcg/Actuation (8 G)) 2 puff IH Q8 PRN PRN Reason: Shortness of Breath Last Admin: 06/09/18 06:25 Dose: 2 puff Albuterol/Ipratropium (Duoneb 3 Mg/0.5 Mg (3 Ml) Ud) 3 ml INH RQID LISSA Last Admin: 06/09/18 07:48 Dose: 3 ml Amlodipine Besylate (Norvasc) 10 mg PO DAILY [facility] Last Admin: 06/08/18 09:09 Dose: 10 mg Apixaban (Eliquis) 2.5 mg PO Q12 LISSA; Protocol Last Admin: 06/08/18 20:47 Dose: 2.5 mg Aspirin (Ecotrin) 81 mg PO DAILY [facility] Last Admin: 06/08/18 09:05 Dose: 81 mg Atorvastatin Calcium (Lipitor) 20 mg PO HS [facility] Last Admin: 06/08/18 22:09 Dose: 20 mg Docusate Sodium (Colace) 100 mg PO BID LISSA Last Admin: 06/08/18 16:54 Dose: 100 mg Enalapril Maleate (Vasotec) 10 mg PO DAILY [facility] Last Admin: 06/08/18 09:05 Dose: 10 mg Furosemide (Lasix) 20 mg PO DAILY [facility] Last Admin: 06/08/18 09:07 Dose: 20 mg Meropenem 1 gm/ Sodium (Chloride) 100 mls @ 100 mls/hr IVPB Q12 [facility]IS[facility]; Protocol Last Admin: 06/08/18 20:46 Dose: 100 mls/hr Clindamycin Phosphate (Cleocin) 600 mg in 50 mls @ 100 mls/hr IVPB Q8 [facility]; Protocol Lactulose (Enulose) 10 gm PO DAILY PRN PRN Reason: Constipation Last Admin: 06/07/18 19:17 Dose: 10 gm Metoprolol Tartrate (Lopressor) 25 mg PO Q12 [facility] Last Admin: 06/08/18 20:46 Dose: 25 mg Tiotropium Bowden (Spiriva) 18 mcg IH DAILY [facility] Last Admin: 06/08/18 09:05 Dose: 18 mcg Trimethoprim/Sulfamethoxazole (Bactrim Ds Tab) 2 tab PO Q12 [facility]; Protocol Last Admin: 06/08/18 20:46 Dose: 2 tab - Labs Labs: 06/07/18 09:55 06/07/18 09:55 PT 15.2 Seconds (9.8-13.1) H 06/04/18 14:45 INR 1.3 06/04/18 14:45 APTT 39.0 Seconds (25.6-37.1) H 06/04/18 14:45 - Constitutional Appears: Well, Non-toxic, No Acute Distress - Head Exam Head Exam: ATRAUMATIC, NORMAL INSPECTION, NORMOCEPHALIC - Eye Exam Eye Exam: EOMI, PERRL - ENT Exam ENT Exam: Mucous Membranes Moist - Neck Exam Neck Exam: Full ROM - Respiratory Exam Respiratory Exam: Clear to Ausculation Bilateral, NORMAL BREATHING PATTERN - Cardiovascular Exam Cardiovascular Exam: Irregular Rhythm (with regular rate) - GI/Abdominal Exam GI & Abdominal Exam: Soft, Normal Bowel Sounds. 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
[2018-06-09 12:06] VITALS: PULSE 105
--- NOTE | 2018-06-09 13:59 | CP.PCM.PCO ---
Assessment/Plan - Assessment/Plan Assessment (Free Text): Pt stable, seen and assessed sitting in chair. No acute distress noted, pt reports occasional sob when ambulating, on O2 via NC LE cellulitis improved. Per Dr. Ochoa, pt to continue IV abx for 5-7 days then switch to PO. Pt to continue IV abx treatment in TCU. Spoke to Dr. Obregon, pt has good blood flow, no intervention at this time. Pt cleared for transfer to TCU by Dr. Joseph. He will follow pt. Pt and at bedside aware of plan.
[2018-06-09 15:33] LABS: HEMOGLOBIN 11.7 g/dL (12.0-18.0); MEAN CELL VOLUME 93.4 fl (80.0-94.0); MEAN CORPUSCULAR HEMOGLOBIN 30.9 pg (27.0-31.0); MEAN CORPUSCULAR HGB CONC 33.1 g/dL (33.0-37.0); RBC 3.78 Mil/uL (4.40-5.90); RED CELL DISTRIBUTION WIDTH 17.3 % (11.5-14.5)
[2018-06-09 15:47] LABS: CALCIUM 9.6 mg/dL (8.4-10.2)
--- NOTE | 2018-06-10 21:28 | PQF ---
PROVIDER RESPONSE TEXT: other REVIEWER QUERY TEXT: CHF Acuity and Type Documentation of CHF. On Lasix po and vasotec which are home meds. Please document the 1) type and 2) acuity of CHF. OLD ECHO 01/27/18 in EMR: EF 55-60%, LV diastolic function cannot be assessed due to underlying atria l fibrillation.LA severely dilated. Moderate AV stenosis. Mild MV regurgitation. Mild TV regurgitatio n. Congestive Heart Failure is documented in the Medical Record. Please document the ype and acuity (inc ludes probable or suspected) Such as: 1) Type: -- Systolic -- Diastolic -- Combined -- Other, please specify Acuity: -- Acute -- Chronic -- Acute on chronic -- Other, please specify Also please document the underlying cause of the CHF (includes probable or suspected) The patient's Clinical Indicators include: Documentation of CHF. On Lasix po and vasotec which are home meds. Please document the type and acuit y of CHF. OLD ECHO 01/27/18 in EMR: EF 55-60%, LV diastolic function cannot be assessed due to underlying atria l fibrillation.LA severely dilated. Moderate AV stenosis. Mild MV regurgitation. Mild TV regurgitatio n. Query created by: Krissy Blackwell on 06/09/2018 11:17 AM Electronically signed by: Torrey Branch MD 06/10/2018 9:25 PM
--- NOTE | 2018-06-10 21:28 | PQF ---
PROVIDER RESPONSE TEXT: chronic REVIEWER QUERY TEXT: Atrial Fibrillation Type Atrial fibrillation is documented in the Medical Record. Please specify the type Such as: -- Chronic -- Paroxysmal -- Permanent -- Persistent -- Other, please specify The patient's Clinical Indicators include: PMH: A Fib. Rx: Eliquis, Lopressor EKG: Atrial fibrillation , anterolateral infarct age undetermined Query created by: Krissy Blackwell on 06/09/2018 11:10 AM Electronically signed by: Torrey Branch MD 06/10/2018 9:25 PM
== END 2018-06-09 15:48 | DRG 603 ==
LOC: H.ER 12:39 → H.ERHOLD 18:00 → H.MEDSURG1 20:45 → OBSVTOIN 06-06 12:29
PROVIDERS: ADMIT Family Medicine Geriatric Medicine; ATTEND Family Medicine Geriatric Medicine
DX: L03.116 Cellulitis of left lower limb (principal); I50.32 Chronic diastolic (congestive) heart failure; I11.0 Hypertensive heart disease with heart failure; J44.9 Chronic obstructive pulmonary disease, unspecified; F17.200 Nicotine dependence, unspecified, uncomplicated; R73.03 Prediabetes; Z79.82 Long term (current) use of aspirin; Z79.01 Long term (current) use of anticoagulants; E78.00 Pure hypercholesterolemia, unspecified; M10.9 Gout, unspecified; M48.00 Spinal stenosis, site unspecified; Z95.2 Presence of prosthetic heart valve; I27.20 Pulmonary hypertension, unspecified; E78.5 Hyperlipidemia, unspecified; I87.8 Other specified disorders of veins; L03.115 Cellulitis of right lower limb; I70.203 Unspecified atherosclerosis of native arteries of extremities, bilateral legs; I48.2 Chronic atrial fibrillation

== ENCOUNTER 2018-06-15 10:58 | Inpatient (IN) | payer MEDICARE, OTHER ==
[2018-06-15 10:58] VITALS: BMI 37.3
[2018-06-15 11:54] LABS: ABG ALLEN TEST YES; ARTERIAL BLOOD GAS HCO3 24.6 mmol/L (21-28); ARTERIAL BLOOD GAS O2 SAT 95.5 % (95-98); ARTERIAL BLOOD GAS PCO2 62 mm/Hg (35-45); ARTERIAL BLOOD GAS PH 7.26 (7.35-7.45); ARTERIAL BLOOD GAS PO2 58 mm/Hg (80-100); ARTERIAL BLOOD GAS TCO2 29.7 mmol/L (22-28)
[2018-06-15 12:07] LABS: BASO # 0.1 K/uL (0.0-0.2); BASO % 1.1 % (0.0-2.0); EOS % 0.5 % (0.0-4.0); LYMPH # 0.5 K/uL (1.0-4.3); LYMPH % 7.2 % (20.0-40.0); MEAN CELL VOLUME 94.3 fl (80.0-94.0); MEAN CORPUSCULAR HEMOGLOBIN 30.3 pg (27.0-31.0); MEAN CORPUSCULAR HGB CONC 32.2 g/dL (33.0-37.0); MEAN PLATELET VOLUME 7.4 fl (7.2-11.7); MONO # 0.8 K/uL (0.0-0.8); NEUT # 5.5 K/uL (1.8-7.0); NEUT % 80.2 % (50.0-75.0); NRBC % 0.2 % (0.0-0.0); PLATELET COUNT 190 K/uL (130-400); RED CELL DISTRIBUTION WIDTH 17.1 % (11.5-14.5); WHITE BLOOD COUNT 6.8 K/uL (4.8-10.8)
[2018-06-15 12:32] LABS: ALB/GLOB RATIO 1.3 (1.0-2.1); ALBUMIN 3.7 g/dL (3.5-5.0); CALCIUM 8.7 mg/dL (8.4-10.2)
[2018-06-15 12:44] LABS: BASOPHIL 1 % (0-2); LYMPHOCYTE 12 % (20-50); MONOCYTE 15 % (0-10); NEUTROPHIL 72 % (42-75); PLATELET ESTIMATE NORMAL (NORMAL); TOTAL CELLS COUNTED 100
[2018-06-15 12:45] LABS: ANISOCYTOSIS SLIGHT; HYPOCHROMIC SLIGHT; OVALOCYTES SLIGHT; PLATELET CLUMPS PRESENT; TEARDROP CELLS SLIGHT
--- NOTE | 2018-06-15 13:37 | CT ---
PROCEDURE: CT Abdomen and Pelvis without Oral or IV contrast. HISTORY: abd distention COMPARISON: CT abdomen pelvis with contrast performed 01/30/18 TECHNIQUE: Contiguous axial images of the abdomen and pelvis. No oral or IV contrast administered. Coronal and Sagittal reformats generated and reviewed. Radiation dose: Total exam DLP = 787.38 mGy-cm. This CT exam was performed using one or more of the following dose reduction techniques: Automated exposure control, adjustment of the mA and/or kV according to patient size, and/or use of iterative reconstruction technique. FINDINGS: There is limited evaluation of the solid organs without the administration of IV contrast. LOWER THORAX: Large bilateral pleural effusions and associated consolidations. Partially imaged cardiomegaly. Aortic prosthetic valve. LIVER: Unremarkable unenhanced appearance. GALLBLADDER AND BILE DUCTS: Unremarkable unenhanced appearance. PANCREAS: Fatty atrophy of the pancreas. SPLEEN: Calcification of the lateral aspect of the spleen. ADRENALS: Mild bilateral adrenal gland hypertrophy. KIDNEYS AND URETERS: No hydronephrosis or obstructing renal calculus. BLADDER: The urinary bladder appears unremarkable. REPRODUCTIVE: Enlarged prostate gland measures approximately 5.9 x 6.6 cm and contains calcifications. APPENDIX: No secondary signs of acute appendicitis. BOWEL: The stomach is nondistended. Lack of oral contrast limits evaluation for bowel pathology. Air in fluid-filled colon as on prior imaging consistent with ileus. Small bowel loops appear within normal limits of caliber. PERITONEUM: No significant free fluid. No definite free air. LYMPH NODES: No bulky lymphadenopathy identified. VASCULATURE: Atherosclerotic calcifications of the aorta. No aortic aneurysm. BONES: Osseous demineralization. Degenerative changes. OTHER FINDINGS: Bilateral fat containing inguinal hernias. IMPRESSION: Large bilateral pleural effusions and associated consolidations. Enlarged heterogeneous prostate gland. Recommend correlation with PSA. Evidence of colonic ileus as on prior imaging. Additional findings as above.
--- NOTE | 2018-06-15 14:01 | RAD ---
Date of service: 06/15/2018 HISTORY: resp distress COMPARISON: Chest radiographs 06/08/2018. FINDINGS: LUNGS: Increasing density seen the bilateral perihilar regions and a somewhat bat wing type configuration suspicious for pulmonary vascular congestion/pulmonary edema. The left hemidiaphragm is silhouetted suggesting probable atelectasis though consolidation is difficult to completely exclude here. Underlying infiltrate not excluded the bilateral perihilar regions either. PLEURA: No moderate or large pleural effusion bilaterally. Bilateral costophrenic sulci are excluded. No pneumothorax bilaterally. CARDIOVASCULAR: Calcific atherosclerotic changes are seen related to the thoracic aorta. Stable cardiac silhouette. See vascular pattern as discussed in lung section above. OSSEOUS STRUCTURES: No significant abnormalities. VISUALIZED UPPER ABDOMEN: Normal. OTHER FINDINGS: None. IMPRESSION: Findings suspicious for acute pulmonary vascular congestion/pulmonary edema. Underlying bilateral perihilar patchy infiltrates not excluded with atelectasis favored over consolidation left base. Clinically correlate further. Cardiac size stable.
--- NOTE | 2018-06-15 14:56 | ED PDOC ---
HPI: Abdomen Time Seen by Provider: 06/15/18 11:00 Chief Complaint (Nursing): Abdominal Pain Chief Complaint (Provider): Abdominal Pain History Per: Family ([id number]) History/Exam Limitations: no limitations Onset/Duration Of Symptoms: Days Current Symptoms Are (Timing): Still Present Quality Of Discomfort: "Pain" Additional Complaint(s): 88 year old male with past medical history of cardiac history, atrial fibrillation, high cholesterol, HTN, chronic ileus and COPD presents to the ED for an evaluation of abdominal pain. 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 Patient placed on BIPAP in the ED due to declining saturation. apprarently pt without fever, vomiting or any other symptoms. history was obtained from [id number]. PMD: uyen Branch Past Medical History Reviewed: Historical Data, Nursing Documentation, Vital Signs Vital Signs: Last Vital Signs Temp 97.8 F 06/15/18 11:00 Pulse 91 H 06/15/18 12:08 Resp 20 06/15/18 11:00 BP 115/66 06/15/18 11:00 Pulse Ox 91 L 06/15/18 11:00 - Medical History PMH: Atrial Fibrillation, Bronchitis, CHF, COPD, HTN, Hypercholesterolemia, Peripheral Edema Denies: HIV, Chronic Kidney Disease - Surgical History Surgical History: Back Surgery (Laminectomy L3-L5 05/15/2017) - Family History Family History: States: Unknown Family Hx - Social History Current smoker - smoking cessation education provided: No Alcohol: None Drugs: Denies - Immunization History Hx Tetanus Toxoid Vaccination: No Hx Influenza Vaccination: No Hx Pneumococcal Vaccination: No - Home Medications Home Medications: Ambulatory Orders Medication Instructions Recorded Aspirin [Ecotrin] 81 mg PO DAILY 04/27/17 Atorvastatin [Lipitor] 20 mg PO HS 04/27/17 Metoprolol Tartrate [Lopressor] 25 mg PO Q12 04/27/17 Docusate [Colace] 100 mg PO BID cap 05/18/17 Albuterol Sulfate [Proair Hfa] 2 puff IH Q8 PRN 01/27/18 amLODIPine [Norvasc] 10 mg PO DAILY 01/27/18 Apixaban [Eliquis] 2.5 mg PO Q12 02/16/18 Tiotropium [Spiriva] 18 mcg IH DAILY 06/04/18 Albuterol/Ipratropium [Duoneb 3 3 ml INH RQID neb 06/09/18 mg/0.5 mg (3 ml) UD] Clindamycin [Cleocin] 600 mg IV Q8 #15 vial 06/09/18 Lactulose [Enulose] 10 gm PO DAILY PRN udc 06/09/18 Ammonium Lactate 12% [Lac-Hydrin 1 appl TOP TID 06/15/18 12% Lotion (225 g)] Furosemide [Lasix] 40 mg IV DAILY 06/15/18 Meropenem [Merrem] 500 mg IVPB Q12 06/15/18 Pyridostigmine [Mestinon Tab] 30 mg PO TID 06/15/18 Sennosides [Senna] 8.6 mg PO BID 06/15/18 - Allergies Allergies/Adverse Reactions: Allergies Allergy/AdvReac Type Severity Reaction Status Date / Time No Known Allergies Allergy Verified 06/09/18 15:09 Review of Systems ROS Statement: Except As Marked, All Systems Reviewed And Found Negative Constitutional: Negative for: Chills Cardiovascular: Negative for: Chest Pain Gastrointestinal: Positive for: Abdominal Pain Physical Exam - Reviewed Nursing Documentation Reviewed: Yes Vital Signs Reviewed: Yes - Physical Exam Appears: Positive for: Non-toxic (on bipap), No Acute Distress Head Exam: Positive for: ATRAUMATIC, NORMAL INSPECTION, NORMOCEPHALIC Skin: Positive for: Normal Color, Warm, Dry Eye Exam: Positive for: EOMI, Normal appearance, PERRL ENT: Positive for: Normal ENT Inspection Neck: Positive for: Normal, Painless ROM Cardiovascular/Chest: Positive for: Regular Rate, Rhythm. Negative for: Murmur Respiratory: Positive for: Rhonchi Gastrointestinal/Abdominal: Positive for: Soft, Distended (due to chronic ileus) Back: Positive for: Normal Inspection Extremity: Positive for: Normal ROM. Negative for: Tenderness, Pedal Edema, Deformity Neurological/Psych: Positive for: Awake, Alert, Normal Tone - Laboratory Results Result Diagrams: 06/15/18 12:00 06/15/18 12:00 Lab Results: pCO2 62 mm/Hg (35-45) H 06/15/18 11:37 pO2 58 mm/Hg (80-100) L 06/15/18 11:37 HCO3 24.6 mmol/L (21-28) 06/15/18 11:37 ABG pH 7.26 (7.35-7.45) L 06/15/18 11:37 ABG Total CO2 29.7 mmol/L (22-28) H 06/15/18 11:37 ABG O2 Saturation 95.5 % (95-98) 06/15/18 11:37 ABG Base Excess -0.2 mmol/L (-2.0-3.0) 06/15/18 11:37 Nam Test Yes 06/15/18 11:37 ABG Potassium 4.6 mmol/L (3.6-5.2) 06/15/18 11:37 A-a O2 Difference 150.0 mm/Hg 06/15/18 11:37 Sodium 135.0 mmol/L (132-148) 06/15/18 11:37 Chloride 103.0 mmol/L (98-107) 06/15/18 11:37 Glucose 132 mg/dL (75-110) H 06/15/18 11:37 Lactate 1.5 mmol/L (0.7-2.1) 06/15/18 11:37 Vent Mode Bipap 06/15/18 11:37 FiO2 40.0 % 06/15/18 11:37 Inspiratory BiPAP 12 06/15/18 11:37 Expiratory BiPAP 7 06/15/18 11:37 Total Bilirubin 0.3 mg/dl (0.2-1.3) 06/15/18 12:00 AST 18 U/L (17-59) 06/15/18 12:00 ALT 19 U/L (21-72) L 06/15/18 12:00 Alkaline Phosphatase 60 U/L (38-126) 06/15/18 12:00 Total Protein 6.5 G/DL (6.3-8.2) 06/15/18 12:00 Albumin 3.7 g/dL (3.5-5.0) 06/15/18 12:00 Globulin 2.8 gm/dL (2.2-3.9) 06/15/18 12:00 Albumin/Globulin Ratio 1.3 (1.0-2.1) 06/15/18 12:00 - ECG ECG Rhythm: Positive for: Atrial Fibrillation O2 Sat by Pulse Oximetry: 91 (RA) Pulse Ox Interpretation: Normal - Critical Care Total Time (In Min): 30 Medical Decision Making Medical Decision Making: Time: 1136 Plan: shortness of breath, rule out pneumonia, chf ABG shock Panel Abd & Pelvis w/o PO contrast CT CMP Cardiology consult Pulmoanry consult CBC w/ diffrential Chest portable [RAD] Lasix 40mg Call cardiologu consult Call pulmonology consult BIPAP/CPAP setting adjustment Reevaluation 1333: PROCEDURE: CT Abdomen and Pelvis without Oral or IV contrast. HISTORY: abd distention COMPARISON: CT abdomen pelvis with contrast performed 01/30/18 TECHNIQUE: Contiguous axial images of the abdomen and pelvis. No oral or IV contrast administered. Coronal and Sagittal reformats generated and reviewed. Radiation dose: Total exam DLP = 787.38 mGy-cm. This CT exam was performed using one or more of the following dose reduction techniques: Automated exposure control, adjustment of the mA and/or kV according to patient size, and/or use of iterative reconstruction technique. FINDINGS: There is limited evaluation of the solid organs without the administration of IV contrast. LOWER THORAX: Large bilateral pleural effusions and associated consolidations. Partially imaged cardiomegaly. Aortic prosthetic valve. LIVER: Unremarkable unenhanced appearance. GALLBLADDER AND BILE DUCTS: Unremarkable unenhanced appearance. PANCREAS: Fatty atrophy of the pancreas. SPLEEN: Calcification of the lateral aspect of the spleen. ADRENALS: Mild bilateral adrenal gland hypertrophy. KIDNEYS AND URETERS: No hydronephrosis or obstructing renal calculus. BLADDER: The urinary bladder appears unremarkable. REPRODUCTIVE: Enlarged prostate gland measures approximately 5.9 x 6.6 cm and contains calcifications. APPENDIX: No secondary signs of acute appendicitis. BOWEL: The stomach is nondistended. Lack of oral contrast limits evaluation for bowel pathology. Air in fluid- filled colon as on prior imaging consistent with ileus. Small bowel loops appear within normal limits of caliber. PERITONEUM: No significant free fluid. No definite free air. LYMPH NODES: No bulky lymphadenopathy identified. VASCULATURE: Atherosclerotic calcifications of the aorta. No aortic aneurysm. BONES: Osseous demineralization. Degenerative changes. OTHER FINDINGS: Bilateral fat containing inguinal hernias. IMPRESSION: Large bilateral pleural effusions and associated consolidations. Enlarged heterogeneous prostate gland. Recommend correlation with PSA. Evidence of colonic ileus as on prior imaging. Additional findings as above. 1358: HISTORY:resp distress COMPARISON: Chest radiographs 06/08/2018. FINDINGS: LUNGS: Increasing density seen the bilateral perihilar regions and a somewhat bat wing type configuration suspicious for pulmonary vascular congestion/pulmonary edema. The left hemidiaphragm is silhouetted suggesting probable atelectasis though consolidation is difficult to completely exclude here. Underlying infiltrate not excluded the bilateral perihilar regions either. PLEURA: No moderate or large pleural effusion bilaterally. Bilateral costophrenic sulci are excluded. No pneumothorax bilaterally. CARDIOVASCULAR: Calcific atherosclerotic changes are seen related to the thoracic aorta. Stable cardiac silhouette. See vascular pattern as discussed in lung section above. OSSEOUS STRUCTURES: No significant abnormalities. VISUALIZED UPPER ABDOMEN: Normal. OTHER FINDINGS: None. IMPRESSION: Findings suspicious for acute pulmonary vascular congestion/pulmonary edema. Underlying bilateral perihilar patchy infiltrates not excluded with atelectasis favored over consolidation left base. Clinically correlate further. Cardiac size stable. 1429: patient with CHF exacerbation as per cxray - placed bipap and lasix 1436: Dr Mclaughlin made aware who states he believes this is all chf (he reviewed cxray) DR Santos cardiology also aware 1448: Case discussed with Dr. Joseph who is aware of all consults Scribe Attestation: Documented by Irma Warner, acting as a scribe forTaryn Chen MD. Provider Scribe Attestation: All medical record entries made by the Scribe were at my direction and personally dictated by me. I have reviewed the chart and agree that the record accurately reflects my personal performance of the history, physical exam, medical decision making, and the department course for this patient. I have also personally directed, reviewed, and agree with the discharge instructions and disposition. Disposition - Clinical Impression Clinical Impression: CHF (congestive heart failure) - Patient ED Disposition Is Patient to be Admitted: Yes - Disposition Disposition Time: 14:29 Condition: SERIOUS
--- NOTE | 2018-06-15 20:36 | CP.PCM.PN ---
Subjective - Date & Time of Evaluation Date of Evaluation: 06/15/18 Time of Evaluation: 22:22 - Subjective Subjective: 88 yo admitted for SOB Objective - Vital Signs/Intake and Output Vital Signs (last 24 hours): Temp Pulse Resp BP Pulse Ox 98 F 83 20 126/70 93 L 06/15/18 20:18 06/15/18 20:18 06/15/18 20:18 06/15/18 20:18 06/15/18 20:18 - Labs Labs: 06/15/18 12:00 06/15/18 12:00 - Respiratory Exam Respiratory Exam: NORMAL BREATHING PATTERN - Cardiovascular Exam Cardiovascular Exam: REGULAR RHYTHM - GI/Abdominal Exam GI & Abdominal Exam: Normal Bowel Sounds
--- NOTE | 2018-06-15 20:38 | CP.PCM.HP ---
History of Present Illness - History of Present Illness History of Present Illness: 88 yo transferred to the ER for SOB and ABG showing Acute respiratory acidosis. Pt started with BiPAP on theTCU Multiple calls to the staff and the ER Present on Admission - Present on Admission Any Indicators Present on Admission: No Past Patient History - Infectious Disease Hx of Infectious Diseases: None - Past Medical History & Family History Past Medical History?: Yes - Past Social History Alcohol: None Drugs: Denies - CARDIAC Hx Atrial Fibrillation: Yes Hx Congestive Heart Failure: Yes Hx Hypercholesterolemia: Yes Hx Hypertension: Yes Hx Peripheral Edema: Yes - PULMONARY Hx Bronchitis: Yes Hx Chronic Obstructive Pulmonary Disease (COPD): Yes - NEUROLOGICAL Hx Neurological Disorder: No - HEENT Hx HEENT Problems: No - RENAL Hx Chronic Kidney Disease: No - ENDOCRINE/METABOLIC Hx Endocrine Disorders: No - HEMATOLOGICAL/ONCOLOGICAL Hx Human Immunodeficiency Virus (HIV): No - INTEGUMENTARY Other/Comment: skin lesion recently removed from left infra-ocular area - MUSCULOSKELETAL/RHEUMATOLOGICAL Hx Falls: No Hx Gout: Yes Hx Unsteady Gait: Yes (ambulates with cane) - GASTROINTESTINAL Hx Gastrointestinal Disorders: No - GENITOURINARY/GYNECOLOGICAL Hx Genitourinary Disorders: No - PSYCHIATRIC Hx Psychophysiologic Disorder: No Hx Substance Use: No - SURGICAL HISTORY Hx Valve Replacement: Yes (TAVR) Other/Comment: Laminectomy L3-L5 05/15/2017 - ANESTHESIA Hx Anesthesia: Yes Hx Anesthesia Reactions: No Hx Malignant Hyperthermia: No Meds Allergies/Adverse Reactions: Allergies Allergy/AdvReac Type Severity Reaction Status Date / Time No Known Allergies Allergy Verified 06/09/18 15:09 Physical Exam - Respiratory Exam Respiratory Exam: NORMAL BREATHING PATTERN - Cardiovascular Exam Cardiovascular Exam: Tachycardia - GI/Abdominal Exam GI & Abdominal Exam: Normal Bowel Sounds Results - Vital Signs Recent Vital Signs: Last Vital Signs Temp 98 F 06/15/18 20:18 Pulse 83 06/15/18 20:18 Resp 20 06/15/18 20:18 BP 126/70 06/15/18 20:18 Pulse Ox 93 L 06/15/18 20:18 - Labs Result Diagrams: 06/19/18 04:30 06/20/18 06:00 Labs: Laboratory Results - last 24 hr 06/15/18 06/15/18 06/15/18 11:37 12:00 12:00 WBC 6.8 RBC 3.30 L Hgb 10.0 L Hct 31.1 L MCV 94.3 H MCH 30.3 MCHC 32.2 L RDW 17.1 H Plt Count 190 MPV 7.4 Neut % (Auto) 80.2 H Lymph % (Auto) 7.2 L [place] % (Auto) 11.0 H Eos % (Auto) 0.5 Baso % (Auto) 1.1 Neut # (Auto) 5.5 Lymph # (Auto) 0.5 L [place] # (Auto) 0.8 Eos # (Auto) 0.0 Baso # (Auto) 0.1 Neutrophils % (Manual) 72 Lymphocytes % (Manual) 12 L Monocytes % (Manual) 15 H Basophils % (Manual) 1 Platelet Estimate Normal Plt Clumps, EDTA Present Hypochromasia (manual) Slight Anisocytosis (manual) Slight Tear Drop Cells Slight Ovalocytes Slight pCO2 62 H pO2 58 L HCO3 24.6 ABG pH 7.26 L ABG Total CO2 29.7 H ABG O2 Saturation 95.5 ABG Base Excess -0.2 Nam Test Yes ABG Potassium 4.6 A-a O2 Difference 150.0 Sodium 135.0 138 Chloride 103.0 97 L Glucose 132 H Lactate 1.5 Vent Mode Bipap FiO2 40.0 Inspiratory BiPAP 12 Expiratory BiPAP 7 Potassium 4.5 Carbon Dioxide 25 Anion Gap 21 H BUN 47 H Creatinine 2.2 H Est GFR ( Amer) 35 Est GFR (Non-Af Amer) 29 Random Glucose 126 H Calcium 8.7 Total Bilirubin 0.3 AST 18 ALT 19 L Alkaline Phosphatase 60 Total Protein 6.5 Albumin 3.7 Globulin 2.8 Albumin/Globulin Ratio 1.3 Arterial Blood Potassium 4.6 Assessment & Plan - Assessment and Plan (Free Text) Assessment: SOB CHF vs COPD CHF Afib S/P TAVR Diuretics Cardiology Eliquis 2.5 BID COPD COSA Smoker Pulmonary Abdominal distention Colonic ileus ( recurrent ) etiol ?? 2 to L-S surgery Surgery GI Rectal tube reinserted pyridostigmine LLE edema cellulitis ?? ecchymosis?? Improving ID Podiatry IV ABX Lasix Endovascular consult ??? CT scan done no significant findings Hyperkalemia 2 to Bactrim?? Kaexylate given Hold NAMRATA Urine lytes Nephrology Hx Hypokalemia Hyperkalemia HTN Prediabetes Hx Low back surgery (Severe Spinal Stenosis) Post operative illeus - Date & Time Date: 06/15/18 Time: 22:22
[2018-06-15] MEDS ORDERED: Lactulose 10 gm/15 ml Syrup PO PRN (21:50)
[2018-06-15] MEDS ORDERED: Albuterol HFA 90 mcg/actuation (8 g) IH PRN (21:50)
[2018-06-15 22:26] LABS: ABG ALLEN TEST YES; ARTERIAL BLOOD GAS HCO3 27.5 mmol/L (21-28); ARTERIAL BLOOD GAS HEMOGLOBIN 10.1 g/dL (11.7-17.4); ARTERIAL BLOOD GAS O2 CAPACITY 13.7 mL/dL (16-24); ARTERIAL BLOOD GAS O2 SAT 94.6 % (95-98); ARTERIAL BLOOD GAS PCO2 61 mm/Hg (35-45); ARTERIAL BLOOD GAS PH 7.31 (7.35-7.45); ARTERIAL BLOOD GAS PO2 61 mm/Hg (80-100); ARTERIAL BLOOD GAS TCO2 32.6 mmol/L (22-28)
[2018-06-16] MEDS ORDERED: Meropenem 500 MG in Sodium Chloride 0.9% 100 ML IVPB SCH
[2018-06-16] MEDS: Clindamycin 600mg/50ml D5W 600 MG/50 ML VIAL IVPB SCH ×3 (00:54→17:34)
[2018-06-16 06:34] LABS: ALB/GLOB RATIO 1.3 (1.0-2.1); ALBUMIN 3.3 g/dL (3.5-5.0); CALCIUM 8.7 mg/dL (8.4-10.2)
[2018-06-16 06:37] LABS: TROPONIN I 0.015 ng/mL (0.00-0.120)
[2018-06-16 06:44] LABS: HEMOGLOBIN 9.8 g/dL (12.0-18.0); MEAN CORPUSCULAR HEMOGLOBIN 30.6 pg (27.0-31.0); MEAN CORPUSCULAR HGB CONC 31.8 g/dL (33.0-37.0); RBC 3.2 Mil/uL (4.40-5.90); RED CELL DISTRIBUTION WIDTH 17.1 % (11.5-14.5); WHITE BLOOD COUNT 7.1 K/uL (4.8-10.8)
[2018-06-16] MEDS: Albuterol-Ipratrop 3 mg / 0.5 (3 ml) UD INH SCH ×4 (08:01→19:13)
--- NOTE | 2018-06-16 08:55 | CARD ---
APPROVED REPORT Date of service: 06/16/2018 EKG Measurement Heart [id number] <Conclusion> Atrial fibrillation Left bundle branch block Abnormal ECG
[2018-06-16] MEDS ORDERED: MEROPENEM 500 MG IVPB SCH (09:00)
[2018-06-16] MEDS: Tiotropium 18 mcg Cap For Inhalation IH SCH (09:17)
--- NOTE | 2018-06-16 09:29 | CP.PCM.CON ---
History of Present Illness - History of Present Illness History of Present Illness: This 88 year old La[place] male was readmitted to acute medicine because of continued MORALES and dependant edema of the LEs, but also developed hypoxemia while in the transitional care unit. Past Patient History - Infectious Disease Hx of Infectious Diseases: None - Past Medical History & Family History Past Medical History?: Yes - Past Social History Alcohol: None Drugs: Denies - CARDIAC Hx Atrial Fibrillation: Yes Hx Congestive Heart Failure: Yes Hx Hypercholesterolemia: Yes Hx Hypertension: Yes Hx Peripheral Edema: Yes - PULMONARY Hx Bronchitis: Yes Hx Chronic Obstructive Pulmonary Disease (COPD): Yes - NEUROLOGICAL Hx Neurological Disorder: No - HEENT Hx HEENT Problems: No - RENAL Hx Chronic Kidney Disease: No - ENDOCRINE/METABOLIC Hx Endocrine Disorders: No - HEMATOLOGICAL/ONCOLOGICAL Hx Human Immunodeficiency Virus (HIV): No - INTEGUMENTARY Other/Comment: skin lesion recently removed from left infra-ocular area - MUSCULOSKELETAL/RHEUMATOLOGICAL Hx Falls: No Hx Gout: Yes Hx Unsteady Gait: Yes (ambulates with cane) - GASTROINTESTINAL Hx Gastrointestinal Disorders: No - GENITOURINARY/GYNECOLOGICAL Hx Genitourinary Disorders: No - PSYCHIATRIC Hx Psychophysiologic Disorder: No Hx Substance Use: No - SURGICAL HISTORY Hx Valve Replacement: Yes (TAVR) Other/Comment: Laminectomy L3-L5 05/15/2017 - ANESTHESIA Hx Anesthesia: Yes Hx Anesthesia Reactions: No Hx Malignant Hyperthermia: No Meds Allergies/Adverse Reactions: Allergies Allergy/AdvReac Type Severity Reaction Status Date / Time No Known Allergies Allergy Verified 06/09/18 15:09 - Medications Medications: Current Medications Albuterol (Ventolin Hfa 90 Mcg/Actuation (8 G)) 2 puff IH Q8 PRN PRN Reason: Shortness of Breath Albuterol/Ipratropium (Duoneb 3 Mg/0.5 Mg (3 Ml) Ud) 3 ml INH RQID [facility] Last Admin: 06/16/18 08:01 Dose: 3 ml Amlodipine Besylate (Norvasc) 10 mg PO DAILY [facility] Last Admin: 06/16/18 08:28 Dose: 10 mg Apixaban (Eliquis) 2.5 mg PO Q12 [facility]; Protocol Last Admin: 06/16/18 08:29 Dose: 2.5 mg Aspirin (Ecotrin) 81 mg PO DAILY [facility] Last Admin: 06/16/18 08:28 Dose: 81 mg Atorvastatin Calcium (Lipitor) 20 mg PO HS [facility] Last Admin: 06/15/18 22:30 Dose: 20 mg Docusate Sodium (Colace) 100 mg PO BID [facility] Last Admin: 06/16/18 08:28 Dose: 100 mg Furosemide (Lasix) 40 mg IV DAILY [facility] Last Admin: 06/16/18 08:29 Dose: 40 mg Clindamycin Phosphate (Cleocin 600mg/50ml D5w) 600 mg in 50 mls @ 50 mls/hr IVPB Q8 [facility] Last Admin: 06/16/18 09:14 Dose: 50 mls/hr Meropenem 500 mg/ Sodium (Chloride) 100 mls @ 100 mls/hr IVPB Q12H [facility]; Protocol Stop: 06/16/18 12:59 Last Admin: 06/16/18 00:54 Dose: 100 mls/hr Lactic Acid (Lac-Hydrin 12% Lotion (225 G)) 1 applic TOP TID [facility] Last Admin: 06/16/18 08:34 Dose: 1 appl Lactulose (Enulose) 10 gm PO DAILY PRN PRN Reason: Constipation Metoprolol Tartrate (Lopressor) 25 mg PO Q12 [facility] Last Admin: 06/16/18 08:27 Dose: 25 mg Pyridostigmine [place] (Mestinon Tab) 30 mg PO TID [facility] Last Admin: 06/16/18 08:28 Dose: 30 mg Sennosides (Senokot Tab) 8.6 mg PO BID [facility] Last Admin: 06/16/18 08:28 Dose: 8.6 mg Tiotropium [place] (Spiriva) 18 mcg IH DAILY [facility] Last Admin: 06/16/18 09:17 Dose: 18 mcg Results - Vital Signs Recent Vital Signs: Last Vital Signs Temp 97.5 F L 06/16/18 08:18 Pulse 86 06/16/18 08:28 Resp 18 06/16/18 08:18 BP 149/89 06/16/18 08:29 Pulse Ox 96 06/16/18 08:18 - Labs Result Diagrams: 06/18/18 05:15 06/18/18 05:15 Labs: Laboratory Results - last 24 hr 06/15/18 06/15/18 06/15/18 11:37 12:00 12:00 WBC 6.8 RBC 3.30 L Hgb 10.0 L Hct 31.1 L MCV 94.3 H MCH 30.3 MCHC 32.2 L RDW 17.1 H Plt Count 190 MPV 7.4 Neut % (Auto) 80.2 H Lymph % (Auto) 7.2 L [place] % (Auto) 11.0 H Eos % (Auto) 0.5 Baso % (Auto) 1.1 Neut # (Auto) 5.5 Lymph # (Auto) 0.5 L [place] # (Auto) 0.8 Eos # (Auto) 0.0 Baso # (Auto) 0.1 Neutrophils % (Manual) 72 Lymphocytes % (Manual) 12 L Monocytes % (Manual) 15 H Basophils % (Manual) 1 Platelet Estimate Normal Plt Clumps, EDTA Present Hypochromasia (manual) Slight Anisocytosis (manual) Slight Tear Drop Cells Slight Ovalocytes Slight pCO2 62 H pO2 58 L HCO3 24.6 ABG pH 7.26 L ABG Total CO2 29.7 H ABG O2 Saturation 95.5 ABG O2 Content ABG Base Excess -0.2 ABG Hemoglobin ABG Carboxyhemoglobin POC ABG HHb (Measured) ABG Methemoglobin ABG O2 Capacity Nam Test Yes ABG Potassium 4.6 A-a O2 Difference 150.0 Hgb O2 Saturation Sodium 135.0 138 Chloride 103.0 97 L Glucose 132 H Lactate 1.5 Vent Mode Bipap FiO2 40.0 Inspiratory BiPAP 12 Expiratory BiPAP 7 Potassium 4.5 Carbon Dioxide 25 Anion Gap 21 H BUN 47 H Creatinine 2.2 H Est GFR ( Amer) 35 Est GFR (Non-Af Amer) 29 Random Glucose 126 H Calcium 8.7 Total Bilirubin 0.3 AST 18 ALT 19 L Alkaline Phosphatase 60 Troponin I NT-Pro-B Natriuret Pep Total Protein 6.5 Albumin 3.7 Globulin 2.8 Albumin/Globulin Ratio 1.3 Arterial Blood Potassium 4.6 06/15/18 06/15/18 06/16/18 22:15 22:45 05:50 WBC RBC Hgb Hct MCV MCH MCHC RDW Plt Count MPV Neut % (Auto) Lymph % (Auto) [place] % (Auto) Eos % (Auto) Baso % (Auto) Neut # (Auto) Lymph # (Auto) [place] # (Auto) Eos # (Auto) Baso # (Auto) Neutrophils % (Manual) Lymphocytes % (Manual) Monocytes % (Manual) Basophils % (Manual) Platelet Estimate Plt Clumps, EDTA Hypochromasia (manual) Anisocytosis (manual) Tear Drop Cells Ovalocytes pCO2 61 H pO2 61 L HCO3 27.5 ABG pH 7.31 L ABG Total CO2 32.6 H ABG O2 Saturation 94.6 L ABG O2 Content 13.0 L ABG Base Excess 3.4 H ABG Hemoglobin 10.1 L ABG Carboxyhemoglobin 2.0 H POC ABG HHb (Measured) 5.2 H ABG Methemoglobin 1.4 ABG O2 Capacity 13.7 L Nam Test Yes ABG Potassium A-a O2 Difference 148.0 Hgb O2 Saturation 91.5 L Sodium 141 Chloride 97 L Glucose Lactate Vent Mode FiO2 40.0 Inspiratory BiPAP Expiratory BiPAP Potassium 4.1 Carbon Dioxide 26 Anion Gap 22 H BUN 59 H Creatinine 2.1 H Est GFR ( Amer) 36 Est GFR (Non-Af Amer) 30 Random Glucose 112 H Calcium 8.7 Total Bilirubin 0.4 AST 17 ALT 19 L Alkaline Phosphatase 57 Troponin I 0.0130 0.0150 NT-Pro-B Natriuret Pep 6800 H Total Protein 5.8 L Albumin 3.3 L Globulin 2.5 Albumin/Globulin Ratio 1.3 Arterial Blood Potassium 06/16/18 06:00 WBC 7.1 RBC 3.20 L Hgb 9.8 L Hct 30.7 L MCV 96.0 H MCH 30.6 MCHC 31.8 L RDW 17.1 H Plt Count 153 MPV Neut % (Auto) Lymph % (Auto) [place] % (Auto) Eos % (Auto) Baso % (Auto) Neut # (Auto) Lymph # (Auto) [place] # (Auto) Eos # (Auto) Baso # (Auto) Neutrophils % (Manual) Lymphocytes % (Manual) Monocytes % (Manual) Basophils % (Manual) Platelet Estimate Plt Clumps, EDTA Hypochromasia (manual) Anisocytosis (manual) Tear Drop Cells Ovalocytes pCO2 pO2 HCO3 ABG pH ABG Total CO2 ABG O2 Saturation ABG O2 Content ABG Base Excess ABG Hemoglobin ABG Carboxyhemoglobin POC ABG HHb (Measured) ABG Methemoglobin ABG O2 Capacity Nam Test ABG Potassium A-a O2 Difference Hgb O2 Saturation Sodium Chloride Glucose Lactate Vent Mode FiO2 Inspiratory BiPAP Expiratory BiPAP Potassium Carbon Dioxide Anion Gap BUN Creatinine Est GFR ( Amer) Est GFR (Non-Af Amer) Random Glucose Calcium Total Bilirubin AST ALT Alkaline Phosphatase Troponin I NT-Pro-B Natriuret Pep Total Protein Albumin Globulin Albumin/Globulin Ratio Arterial Blood Potassium Assessment & Plan (1) COPD (chronic obstructive pulmonary disease) Status: Chronic Priority: High (2) 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 Priority: High - Assessment and Plan (Free Text) Plan: IR consulted for thoracentesis on the right. - Date & Time Date: 06/16/18 Time: 09:27
[2018-06-16] MEDS ORDERED: Lidocaine Hydrochloride 1% 10 ML ONE (11:46)
--- NOTE | 2018-06-16 11:59 | CP.PCM.CON ---
History of Present Illness - History of Present Illness History of Present Illness: NOTE: I WAS ASKED TO SEE THIS PATIENT BY DR WADE BATES HE WAS HOME SICK TODAY THE PATIENT IS AN 88 YEAR OLD MALE WHO I KNOW FROM LAST YEAR WHEN I COVERED DR BATES. HE HAS A HISTORY OF TAVR FOR SEVERE , CHRONIC ATRIAL FIBRILLATION, HYPERTENSION, COPD AND HE HAD LOWER BACK SURGERY LAST YEAR FOR SPINAL STENOSIS. HE WAS JUST IN THE HOSPITAL FOR LE CELLULITIS AND WAS IN TCU. HE HAD RESPIRATORY DISTRESS WITH CO2 RETENSION AND WAS TRANSFERRED TO AND CARDIOLOGY WAS ASKED TO SEE HIM. HE DENIES CHEST PAIN OR PALPITATIONS BUT WAS VERY SOB. Past Patient History - Infectious Disease Hx of Infectious Diseases: None - Past Medical History & Family History Past Medical History?: Yes - Past Social History Alcohol: None Drugs: Denies - CARDIAC Hx Atrial Fibrillation: Yes Hx Congestive Heart Failure: Yes Hx Hypercholesterolemia: Yes Hx Hypertension: Yes Hx Peripheral Edema: Yes - PULMONARY Hx Bronchitis: Yes Hx Chronic Obstructive Pulmonary Disease (COPD): Yes - NEUROLOGICAL Hx Neurological Disorder: No - HEENT Hx HEENT Problems: No - RENAL Hx Chronic Kidney Disease: No - ENDOCRINE/METABOLIC Hx Endocrine Disorders: No - HEMATOLOGICAL/ONCOLOGICAL Hx Human Immunodeficiency Virus (HIV): No - INTEGUMENTARY Other/Comment: skin lesion recently removed from left infra-ocular area - MUSCULOSKELETAL/RHEUMATOLOGICAL Hx Falls: No Hx Gout: Yes Hx Unsteady Gait: Yes (ambulates with cane) - GASTROINTESTINAL Hx Gastrointestinal Disorders: No - GENITOURINARY/GYNECOLOGICAL Hx Genitourinary Disorders: No - PSYCHIATRIC Hx Psychophysiologic Disorder: No Hx Substance Use: No - SURGICAL HISTORY Hx Valve Replacement: Yes (TAVR) Other/Comment: Laminectomy L3-L5 05/15/2017 - ANESTHESIA Hx Anesthesia: Yes Hx Anesthesia Reactions: No Hx Malignant Hyperthermia: No Meds Allergies/Adverse Reactions: Allergies Allergy/AdvReac Type Severity Reaction Status Date / Time No Known Allergies Allergy Verified 06/09/18 15:09 - Medications Medications: Current Medications Albuterol (Ventolin Hfa 90 Mcg/Actuation (8 G)) 2 puff IH Q8 PRN PRN Reason: Shortness of Breath Albuterol/Ipratropium (Duoneb 3 Mg/0.5 Mg (3 Ml) Ud) 3 ml INH RQID [facility] Last Admin: 06/16/18 11:12 Dose: 3 ml Amlodipine Besylate (Norvasc) 10 mg PO DAILY [facility] Last Admin: 06/16/18 08:28 Dose: 10 mg Apixaban (Eliquis) 2.5 mg PO Q12 [facility]; Protocol Last Admin: 06/16/18 08:29 Dose: 2.5 mg Aspirin (Ecotrin) 81 mg PO DAILY [facility] Last Admin: 06/16/18 08:28 Dose: 81 mg Atorvastatin Calcium (Lipitor) 20 mg PO HS [facility] Last Admin: 06/15/18 22:30 Dose: 20 mg Docusate Sodium (Colace) 100 mg PO BID [facility] Last Admin: 06/16/18 08:28 Dose: 100 mg Furosemide (Lasix) 40 mg IV DAILY [facility] Last Admin: 06/16/18 08:29 Dose: 40 mg Clindamycin Phosphate (Cleocin 600mg/50ml D5w) 600 mg in 50 mls @ 50 mls/hr IVPB Q8 [facility] Last Admin: 06/16/18 09:14 Dose: 50 mls/hr Meropenem 500 mg/ Sodium (Chloride) 100 mls @ 100 mls/hr IVPB [facility]; Protocol Stop: 06/16/18 12:59 Lactic Acid (Lac-Hydrin 12% Lotion (225 G)) 1 applic TOP TID [facility] Last Admin: 06/16/18 08:34 Dose: 1 appl Lactulose (Enulose) 10 gm PO DAILY PRN PRN Reason: Constipation Metoprolol Tartrate (Lopressor) 25 mg PO Q12 [facility] Last Admin: 06/16/18 08:27 Dose: 25 mg Pyridostigmine [place] (Mestinon Tab) 30 mg PO TID [facility] Last Admin: 06/16/18 08:28 Dose: 30 mg Sennosides (Senokot Tab) 8.6 mg PO BID [facility] Last Admin: 06/16/18 08:28 Dose: 8.6 mg Tiotropium [place] (Spiriva) 18 mcg IH DAILY [facility] Last Admin: 06/16/18 09:17 Dose: 18 mcg Physical Exam - Respiratory Exam Respiratory Exam: Decreased Breath Sounds, Rales - Cardiovascular Exam Cardiovascular Exam: Irregular Rhythm, +S1, +S2 - Extremities Exam Additional comments: MINIMAL LE EDEMA TODAY, SKIN PINKINSH - Additional Findings Additional findings: EKG TROPONINS NEGATIVE CXR AND CT OF ABDOMEN/PELVIS WITH VASCULAR CONGESTION AND LARGE BILAT PLEURAL EFFUSIONS Results - Vital Signs Recent Vital Signs: Last Vital Signs Temp 97.5 F L 06/16/18 08:18 Pulse 86 06/16/18 11:14 Resp 18 06/16/18 08:18 BP 149/89 06/16/18 08:29 Pulse Ox 96 06/16/18 08:18 - Labs Result Diagrams: 06/16/18 06:00 06/16/18 05:50 Labs: Laboratory Results - last 24 hr 06/15/18 06/15/18 06/15/18 12:00 12:00 22:15 WBC 6.8 RBC 3.30 L Hgb 10.0 L Hct 31.1 L MCV 94.3 H MCH 30.3 MCHC 32.2 L RDW 17.1 H Plt Count 190 MPV 7.4 Neut % (Auto) 80.2 H Lymph % (Auto) 7.2 L [place] % (Auto) 11.0 H Eos % (Auto) 0.5 Baso % (Auto) 1.1 Neut # (Auto) 5.5 Lymph # (Auto) 0.5 L [place] # (Auto) 0.8 Eos # (Auto) 0.0 Baso # (Auto) 0.1 Neutrophils % (Manual) 72 Lymphocytes % (Manual) 12 L Monocytes % (Manual) 15 H Basophils % (Manual) 1 Platelet Estimate Normal Plt Clumps, EDTA Present Hypochromasia (manual) Slight Anisocytosis (manual) Slight Tear Drop Cells Slight Ovalocytes Slight pCO2 61 H pO2 61 L HCO3 27.5 ABG pH 7.31 L ABG Total CO2 32.6 H ABG O2 Saturation 94.6 L ABG O2 Content 13.0 L ABG Base Excess 3.4 H ABG Hemoglobin 10.1 L ABG Carboxyhemoglobin 2.0 H POC ABG HHb (Measured) 5.2 H ABG Methemoglobin 1.4 ABG O2 Capacity 13.7 L Nam Test Yes A-a O2 Difference 148.0 Hgb O2 Saturation 91.5 L FiO2 40.0 Sodium 138 Potassium 4.5 Chloride 97 L Carbon Dioxide 25 Anion Gap 21 H BUN 47 H Creatinine 2.2 H Est GFR ( Amer) 35 Est GFR (Non-Af Amer) 29 Random Glucose 126 H Calcium 8.7 Total Bilirubin 0.3 AST 18 ALT 19 L Alkaline Phosphatase 60 Troponin I NT-Pro-B Natriuret Pep Total Protein 6.5 Albumin 3.7 Globulin 2.8 Albumin/Globulin Ratio 1.3 06/15/18 06/16/18 06/16/18 22:45 05:50 06:00 WBC 7.1 RBC 3.20 L Hgb 9.8 L Hct 30.7 L MCV 96.0 H MCH 30.6 MCHC 31.8 L RDW 17.1 H Plt Count 153 MPV Neut % (Auto) Lymph % (Auto) [place] % (Auto) Eos % (Auto) Baso % (Auto) Neut # (Auto) Lymph # (Auto) [place] # (Auto) Eos # (Auto) Baso # (Auto) Neutrophils % (Manual) Lymphocytes % (Manual) Monocytes % (Manual) Basophils % (Manual) Platelet Estimate Plt Clumps, EDTA Hypochromasia (manual) Anisocytosis (manual) Tear Drop Cells Ovalocytes pCO2 pO2 HCO3 ABG pH ABG Total CO2 ABG O2 Saturation ABG O2 Content ABG Base Excess ABG Hemoglobin ABG Carboxyhemoglobin POC ABG HHb (Measured) ABG Methemoglobin ABG O2 Capacity Nam Test A-a O2 Difference Hgb O2 Saturation FiO2 Sodium 141 Potassium 4.1 Chloride 97 L Carbon Dioxide 26 Anion Gap 22 H BUN 59 H Creatinine 2.1 H Est GFR ( Amer) 36 Est GFR (Non-Af Amer) 30 Random Glucose 112 H Calcium 8.7 Total Bilirubin 0.4 AST 17 ALT 19 L Alkaline Phosphatase 57 Troponin I 0.0130 0.0150 NT-Pro-B Natriuret Pep 6800 H Total Protein 5.8 L Albumin 3.3 L Globulin 2.5 Albumin/Globulin Ratio 1.3 Assessment & Plan - Assessment and Plan (Free Text) Assessment: C/P TAVR CHRONIC ATRIAL FIBRILLATION COPD ?CHF HYPERTENSION HYPERLIPIDEMIA RECENT CELLULITIS Plan: CONTINUE ANTIBIOTICS, COPD, ELIQUIS, ASPIRIN, FUROSEMIDE, ATORVASTATIN FOR THORACENTESIS WILL STOP AMLODIPINE DUE TO RECENT LEG EDEMA AND CELLULITIS AND OBSERVE BP
[2018-06-16] MEDS ORDERED: Meropenem 500 MG in Sodium Chloride 0.9% 100 ML IVPB ONE (12:00)
--- NOTE | 2018-06-16 12:09 | PCM.SURG1 ---
Surgeon's Initial Post Op Note - Surgeon's Notes Surgeon: Espinoza Anna MD Lumber Tailer: NONE Type of Anesthesia: Local Pre-Operative Diagnosis: Right pleural effusion, dyspnea Operative Findings: US showed a large right pleural effusion Post-Operative Diagnosis: Right pleural effusion, dyspnea Operation Performed: US guided right thoracentesis. Specimen/Specimens Removed: 1.5 liters of straw colored fluid Estimated Blood Loss: EBL {In ML}: 0 Blood Products Given: N/A Drains Used: No Drains Post-Op Condition: Fair Date of Surgery/Procedure: 06/16/18 Time of Surgery/Procedure: 12:00
[2018-06-16 12:19] LABS: BODY FLUID TYPE PLEURAL
--- NOTE | 2018-06-16 12:40 | RAD ---
Date of service: 06/16/2018 PROCEDURE: CHEST RADIOGRAPH, 1 VIEW HISTORY: Status post right thoracentesis. COMPARISON: Chest x-ray 06/15/2018 11:37 a.m. FINDINGS: LUNGS: Improved aeration of the right lung following thoracentesis. Left lung is unchanged from previous study and has persistent signs of vascular congestion. PLEURA: Small left pleural effusion. CARDIOVASCULAR: The heart is enlarged. OSSEOUS STRUCTURES: No significant abnormalities. VISUALIZED UPPER ABDOMEN: Normal. OTHER FINDINGS: None. IMPRESSION: Improved aeration of the right lung following thoracentesis. There persistent vascular congestion in both right and left lungs.
[2018-06-16 12:54] LABS: TOTAL PROTEIN,BODY FLUID < 2.0 g/dL (NONE ESTABLISHED)
[2018-06-16 15:35] LABS: BF GROSS APPEARANCE SL CLOUDY (CLEAR)
[2018-06-16 15:38] LABS: BODY FLUID MONO/MACROPHAGE 26 % (0-0); BODY FLUID TOTAL COUNT 100 (0-0)
--- NOTE | 2018-06-16 17:22 | CP.PCM.CON ---
History of Present Illness - History of Present Illness History of Present Illness: renal consult note 88 yr old with htn, cad atrial fib recently in tcu for leg cellulitis then transferred to icu for worsening sob, hypercapnea currently on bipap. hx obtained from records as patient unable to talk due to bipsp meds reviewed pmfsh reviewed non smoker no alcohol o/e: vss, obese male gen: nad on bipap sclera: anicteric heent; perrla op: clear neck: supple no thyromegaly lungs: b/l air entry reduced at bases with crackles cv: +S1+s2 no rub abd: + distenseion reduced bowel sounds ext: 2+ edema with erythematous changes neuro: A+OX3 no focal deficit psych: nml affect/mood. limited insight skin: No rash no ulcer except erythema in legs labs and imaging reviewed Assessment: ARF hyperkalemia ? due to bactrim: resolved HTN, COPD CHF s/p TAVR Obesity cellulitis ANTHONY ? due to bactrim plan: no labs today, i have ordered a bmp CT abdomen done and no urinary retention notes lytes ok in er please do UA and urine sodium, urine creatine and urine protein bp stable continue with lasix IV for now recc cxr in er Past Patient History - Infectious Disease Hx of Infectious Diseases: None - Past Medical History & Family History Past Medical History?: Yes - Past Social History Alcohol: None Drugs: Denies - CARDIAC Hx Atrial Fibrillation: Yes Hx Congestive Heart Failure: Yes Hx Hypercholesterolemia: Yes Hx Hypertension: Yes Hx Peripheral Edema: Yes - PULMONARY Hx Bronchitis: Yes Hx Chronic Obstructive Pulmonary Disease (COPD): Yes - NEUROLOGICAL Hx Neurological Disorder: No - HEENT Hx HEENT Problems: No - RENAL Hx Chronic Kidney Disease: No - ENDOCRINE/METABOLIC Hx Endocrine Disorders: No - HEMATOLOGICAL/ONCOLOGICAL Hx Human Immunodeficiency Virus (HIV): No - INTEGUMENTARY Other/Comment: skin lesion recently removed from left infra-ocular area - MUSCULOSKELETAL/RHEUMATOLOGICAL Hx Falls: No Hx Gout: Yes Hx Unsteady Gait: Yes (ambulates with cane) - GASTROINTESTINAL Hx Gastrointestinal Disorders: No - GENITOURINARY/GYNECOLOGICAL Hx Genitourinary Disorders: No - PSYCHIATRIC Hx Psychophysiologic Disorder: No Hx Substance Use: No - SURGICAL HISTORY Hx Valve Replacement: Yes (TAVR) Other/Comment: Laminectomy L3-L5 05/15/2017 - ANESTHESIA Hx Anesthesia: Yes Hx Anesthesia Reactions: No Hx Malignant Hyperthermia: No Meds Allergies/Adverse Reactions: Allergies Allergy/AdvReac Type Severity Reaction Status Date / Time No Known Allergies Allergy Verified 06/09/18 15:09 - Medications Medications: Current Medications Albuterol (Ventolin Hfa 90 Mcg/Actuation (8 G)) 2 puff IH Q8 PRN PRN Reason: Shortness of Breath Albuterol/Ipratropium (Duoneb 3 Mg/0.5 Mg (3 Ml) Ud) 3 ml INH RQID [facility] Last Admin: 06/16/18 15:21 Dose: Not Given Apixaban (Eliquis) 2.5 mg PO Q12 [facility]; Protocol Last Admin: 06/16/18 08:29 Dose: 2.5 mg Aspirin (Ecotrin) 81 mg PO DAILY [facility] Last Admin: 06/16/18 08:28 Dose: 81 mg Atorvastatin Calcium (Lipitor) 20 mg PO HS [facility] Last Admin: 06/15/18 22:30 Dose: 20 mg Docusate Sodium (Colace) 100 mg PO BID [facility] Last Admin: 06/16/18 17:02 Dose: 100 mg Furosemide (Lasix) 40 mg IV DAILY [facility] Last Admin: 06/16/18 08:29 Dose: 40 mg Clindamycin Phosphate (Cleocin 600mg/50ml D5w) 600 mg in 50 mls @ 50 mls/hr IVPB Q8 [facility] Last Admin: 06/16/18 09:14 Dose: 50 mls/hr Lactic Acid (Lac-Hydrin 12% Lotion (225 G)) 1 applic TOP TID [facility] Last Admin: 06/16/18 17:03 Dose: 1 appl Lactulose (Enulose) 10 gm PO DAILY PRN PRN Reason: Constipation Metoprolol Tartrate (Lopressor) 25 mg PO Q12 [facility] Last Admin: 06/16/18 08:27 Dose: 25 mg Pyridostigmine [place] (Mestinon Tab) 30 mg PO TID [facility] Last Admin: 06/16/18 17:05 Dose: 30 mg Sennosides (Senokot Tab) 8.6 mg PO BID [facility] Last Admin: 06/16/18 17:02 Dose: 8.6 mg Tiotropium [place] (Spiriva) 18 mcg IH DAILY [facility] Last Admin: 06/16/18 09:17 Dose: 18 mcg Results - Vital Signs Recent Vital Signs: Last Vital Signs Temp 98.4 F 06/16/18 11:30 Pulse 85 06/16/18 12:15 Resp 22 06/16/18 12:15 BP 119/68 06/16/18 12:15 Pulse Ox 98 06/16/18 12:15 - Labs Result Diagrams: 06/16/18 06:00 06/16/18 05:50 Labs: Laboratory Results - last 24 hr 06/15/18 06/15/18 06/16/18 22:15 22:45 05:50 WBC RBC Hgb Hct MCV MCH MCHC RDW Plt Count pCO2 61 H pO2 61 L HCO3 27.5 ABG pH 7.31 L ABG Total CO2 32.6 H ABG O2 Saturation 94.6 L ABG O2 Content 13.0 L ABG Base Excess 3.4 H ABG Hemoglobin 10.1 L ABG Carboxyhemoglobin 2.0 H POC ABG HHb (Measured) 5.2 H ABG Methemoglobin 1.4 ABG O2 Capacity 13.7 L Nam Test Yes A-a O2 Difference 148.0 Hgb O2 Saturation 91.5 L FiO2 40.0 Sodium 141 Potassium 4.1 Chloride 97 L Carbon Dioxide 26 Anion Gap 22 H BUN 59 H Creatinine 2.1 H Est GFR ( Amer) 36 Est GFR (Non-Af Amer) 30 Random Glucose 112 H Calcium 8.7 Total Bilirubin 0.4 AST 17 ALT 19 L Alkaline Phosphatase 57 Troponin I 0.0130 0.0150 NT-Pro-B Natriuret Pep 6800 H Total Protein 5.8 L Albumin 3.3 L Globulin 2.5 Albumin/Globulin Ratio 1.3 Fluid Source Fluid Appearance Fluid WBC Fluid RBC Fluid Tot Cell Count Fluid Neutrophils Fluid Lymphocytes Fld Monocyte/Macrophag Fluid Glucose Fluid Total Protein Fluid LDH Fluid Comment 06/16/18 06/16/18 06/16/18 06:00 10:08 12:17 WBC 7.1 RBC 3.20 L Hgb 9.8 L Hct 30.7 L MCV 96.0 H MCH 30.6 MCHC 31.8 L RDW 17.1 H Plt Count 153 pCO2 pO2 HCO3 ABG pH ABG Total CO2 ABG O2 Saturation ABG O2 Content ABG Base Excess ABG Hemoglobin ABG Carboxyhemoglobin POC ABG HHb (Measured) ABG Methemoglobin ABG O2 Capacity Nam Test A-a O2 Difference Hgb O2 Saturation FiO2 Sodium Potassium Chloride Carbon Dioxide Anion Gap BUN Creatinine Est GFR ( Amer) Est GFR (Non-Af Amer) Random Glucose Calcium Total Bilirubin AST ALT Alkaline Phosphatase Troponin I < 0.0120 NT-Pro-B Natriuret Pep Total Protein Albumin Globulin Albumin/Globulin Ratio Fluid Source Fluid Appearance Fluid WBC Fluid RBC Fluid Tot Cell Count Fluid Neutrophils Fluid Lymphocytes Fld Monocyte/Macrophag Fluid Glucose 108 Fluid Total Protein Fluid LDH Fluid Comment 06/16/18 06/16/18 12:17 12:23 WBC RBC Hgb Hct MCV MCH MCHC RDW Plt Count pCO2 pO2 HCO3 ABG pH ABG Total CO2 ABG O2 Saturation ABG O2 Content ABG Base Excess ABG Hemoglobin ABG Carboxyhemoglobin POC ABG HHb (Measured) ABG Methemoglobin ABG O2 Capacity Nam Test A-a O2 Difference Hgb O2 Saturation FiO2 Sodium Potassium Chloride Carbon Dioxide Anion Gap BUN Creatinine Est GFR ( Amer) Est GFR (Non-Af Amer) Random Glucose Calcium Total Bilirubin AST ALT Alkaline Phosphatase Troponin I NT-Pro-B Natriuret Pep Total Protein Albumin Globulin Albumin/Globulin Ratio Fluid Source Pleural Fluid Appearance Sl cloudy Fluid WBC 308.0 H Fluid RBC 1802.0 H Fluid Tot Cell Count 100 H Fluid Neutrophils 9.0 H Fluid Lymphocytes 65.0 H Fld Monocyte/Macrophag 26 H Fluid Glucose Fluid Total Protein < 2.0 Fluid LDH 275 Fluid Comment Light yellow
--- NOTE | 2018-06-16 17:40 | CARD ---
APPROVED REPORT Date of service: 06/16/2018 EXAM: Two-dimensional and M-mode echocardiogram with Doppler and color Doppler. Other Information Quality : GoodRhythm : Atrial Fibrillation INDICATION Congestive Heart Failure COPD 2D DIMENSIONS IVSd1.15 (0.7-1.1cm)LVDd4.02 (3.9-5.9cm) LVOT Diameter2.25 (1.8-2.4cm)PWd1.63 (0.7-1.1cm) IVSs1.58 (0.8-1.2cm)LVDs2.63 (2.5-4.0cm) FS (%) 34.5 %PWs1.48 (0.8-1.2cm) M-Mode DIMENSIONS Left Atrium (MM)5.62 (2.5-4.0cm)Aortic Root2.31 (2.2-3.7cm) Aortic Cusp Exc.1.64 (1.5-2.0cm) Aortic Valve AoV Peak Hecxzfgy016.2cm/sAoV VTI48.8cmAO Peak GR.33mmHg LVOT Peak Lutbrdmp252.4cm/sLVOT VTI19.18cmAO Mean GR.18mmHg PAT (VMAX)0.62qy1YXH (VTI)0.81cm2 Mitral Valve E/A ratio0.0 TDI E/Lateral E'0.0E/Medial E'0.0 Tricuspid Valve TR Peak [id number]/sRAP [id number] Peak Gr.30mmHg [id number] LEFT VENTRICLE The left ventricle is normal size. There is normal left ventricular wall thickness. The left ventricular systolic function is normal. The estimated ejection fraction is 55-60% No regional wall motion abnormalities noted.. The left ventricular diastolic function cannot be assessed due to underlying atrial fibrillation. No left ventricle thrombus noted on this study. There is no ventricular septal defect visualized. There is no left ventricular aneurysm. There is no mass noted in the left ventricle. RIGHT VENTRICLE The right ventricle is normal size. There is normal right ventricular wall thickness. The right ventricular systolic function is normal. ATRIA The left atrium is severely dilated. The right atrium size is normal. The interatrial septum is intact with no evidence for an atrial septal defect. AORTIC VALVE The aortic valve is normal in structure. No aortic regurgitation is present. There is moderate aortic valvular stenosis. Peak aortic velcity is - 3 m/sec and calculated PAT is 1.4 cm2. There is no aortic valvular vegetation. MITRAL VALVE The mitral valve is normal in structure. There is no evidence of mitral valve prolapse. There is no mitral valve stenosis. There is no mitral valve regurgitation noted. TRICUSPID VALVE The tricuspid valve is normal in structure. There is mild tricuspid valve regurgitation noted. RVSP is calculated at 37 mm Hg. There is no tricuspid valve prolapse or vegetation. There is no tricuspid valve stenosis. PULMONIC VALVE The pulmonary valve is normal in structure. There is no pulmonic valvular regurgitation. There is no pulmonic valvular stenosis. GREAT VESSELS The aortic root is normal in size. The ascending aorta is normal in size. The pulmonary artery is normal. The IVC is not visualized. PERICARDIAL EFFUSION There is no pericardial effusion. There is no pleural effusion. <Conclusion> The estimated ejection fraction is 55-60% The left ventricular diastolic function cannot be assessed due to underlying atrial fibrillation. The left atrium is severely dilated. There is moderate aortic valvular stenosis. Peak aortic velcity is - 3 m/sec and calculated PAT is 1.4 cm2. There is mild tricuspid valve regurgitation noted. RVSP is calculated at 37 mm Hg. The IVC is not visualized.
--- NOTE | 2018-06-16 18:33 | CP.PCM.PN ---
Subjective - Date & Time of Evaluation Date of Evaluation: 06/16/18 Time of Evaluation: 18:30 - Subjective Subjective: i d note had thoracentesis today will rx c single antibiotic for present prevent fluoid overloadf Objective - Vital Signs/Intake and Output Vital Signs (last 24 hours): Temp Pulse Resp BP Pulse Ox 98.4 F 85 22 119/68 98 06/16/18 11:30 06/16/18 12:15 06/16/18 12:15 06/16/18 12:15 06/16/18 12:15 - Medications Medications: Current Medications Albuterol (Ventolin Hfa 90 Mcg/Actuation (8 G)) 2 puff IH Q8 PRN PRN Reason: Shortness of Breath Albuterol/Ipratropium (Duoneb 3 Mg/0.5 Mg (3 Ml) Ud) 3 ml INH RQID [facility] Last Admin: 06/16/18 15:21 Dose: Not Given Apixaban (Eliquis) 2.5 mg PO Q12 [facility]; Protocol Last Admin: 06/16/18 08:29 Dose: 2.5 mg Aspirin (Ecotrin) 81 mg PO DAILY [facility] Last Admin: 06/16/18 08:28 Dose: 81 mg Atorvastatin Calcium (Lipitor) 20 mg PO HS [facility] Last Admin: 06/15/18 22:30 Dose: 20 mg Docusate Sodium (Colace) 100 mg PO BID [facility] Last Admin: 06/16/18 17:02 Dose: 100 mg Furosemide (Lasix) 40 mg IV DAILY [facility] Last Admin: 06/16/18 08:29 Dose: 40 mg Ampicillin Sodium/Sulbactam (Sodium 1.5 gm/ Sodium Chloride) 100 mls @ 100 mls/hr IVPB Q12 [facility]; Protocol Lactic Acid (Lac-Hydrin 12% Lotion (225 G)) 1 applic TOP TID [facility] Last Admin: 06/16/18 17:03 Dose: 1 appl Lactulose (Enulose) 10 gm PO DAILY PRN PRN Reason: Constipation Metoprolol Tartrate (Lopressor) 25 mg PO Q12 [facility] Last Admin: 06/16/18 08:27 Dose: 25 mg Pyridostigmine [place] (Mestinon Tab) 30 mg PO TID [facility] Last Admin: 06/16/18 17:05 Dose: 30 mg Sennosides (Senokot Tab) 8.6 mg PO BID [facility] Last Admin: 06/16/18 17:02 Dose: 8.6 mg Tiotropium [place] (Spiriva) 18 mcg IH DAILY [facility] Last Admin: 06/16/18 09:17 Dose: 18 mcg - Labs Labs: 06/16/18 06:00 06/16/18 05:50
--- NOTE | 2018-06-16 19:11 | CP.PCM.PN ---
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 S/P thoracentesis Elevated BUN/ creat Extensive discussions with staff Objective - Vital Signs/Intake and Output Vital Signs (last 24 hours): Temp Pulse Resp BP Pulse Ox 98.4 F 85 22 119/68 98 06/16/18 11:30 06/16/18 12:15 06/16/18 12:15 06/16/18 12:15 06/16/18 12:15 - Medications Medications: Current Medications Albuterol (Ventolin Hfa 90 Mcg/Actuation (8 G)) 2 puff IH Q8 PRN PRN Reason: Shortness of Breath Albuterol/Ipratropium (Duoneb 3 Mg/0.5 Mg (3 Ml) Ud) 3 ml INH RQID [facility] Last Admin: 06/16/18 15:21 Dose: Not Given Apixaban (Eliquis) 2.5 mg PO Q12 [facility]; Protocol Last Admin: 06/16/18 08:29 Dose: 2.5 mg Aspirin (Ecotrin) 81 mg PO DAILY [facility] Last Admin: 06/16/18 08:28 Dose: 81 mg Atorvastatin Calcium (Lipitor) 20 mg PO HS [facility] Last Admin: 06/15/18 22:30 Dose: 20 mg Docusate Sodium (Colace) 100 mg PO BID [facility] Last Admin: 06/16/18 17:02 Dose: 100 mg Furosemide (Lasix) 40 mg IV DAILY [facility] Last Admin: 06/16/18 08:29 Dose: 40 mg Ampicillin Sodium/Sulbactam (Sodium 1.5 gm/ Sodium Chloride) 100 mls @ 100 mls/hr IVPB Q12 [facility]; Protocol Lactic Acid (Lac-Hydrin 12% Lotion (225 G)) 1 applic TOP TID [facility] Last Admin: 06/16/18 17:03 Dose: 1 appl Lactulose (Enulose) 10 gm PO DAILY PRN PRN Reason: Constipation Metoprolol Tartrate (Lopressor) 25 mg PO Q12 [facility] Last Admin: 06/16/18 08:27 Dose: 25 mg Pyridostigmine [place] (Mestinon Tab) 30 mg PO TID [facility] Last Admin: 06/16/18 17:05 Dose: 30 mg Sennosides (Senokot Tab) 8.6 mg PO BID [facility] Last Admin: 06/16/18 17:02 Dose: 8.6 mg Tiotropium [place] (Spiriva) 18 mcg IH DAILY [facility] Last Admin: 06/16/18 09:17 Dose: 18 mcg - Labs Labs: 06/16/18 06:00 06/16/18 05:50 - Respiratory Exam Respiratory Exam: NORMAL BREATHING PATTERN - Cardiovascular Exam Cardiovascular Exam: REGULAR RHYTHM - GI/Abdominal Exam GI & Abdominal Exam: Normal Bowel Sounds Assessment and Plan - Assessment and Plan (Free Text) Assessment: SOB CHF vs COPD CHF Afib S/P TAVR Diuretics Cardiology Eliquis 2.5 BID COPD [facility] Smoker Pulmonary ANTHONY/ CKD Lasix?? Nephrology Abdominal distention Colonic ileus ( recurrent ) etiol ?? 2 to L-S surgery Surgery GI Rectal tube reinserted pyridostigmine LLE edema cellulitis ?? ecchymosis?? Improving ID Podiatry IV ABX Lasix Endovascular consult ??? CT scan done no significant findings Hx Hyperkalemia 2 to Bactrim?? Kaexylate given Hold NAMRATA Urine lytes Hx Hypokalemia Hyperkalemia HTN Prediabetes Hx Low back surgery (Severe Spinal Stenosis) Post operative illeus
[2018-06-17] MEDS: Albuterol-Ipratrop 3 mg / 0.5 (3 ml) UD INH SCH ×4 (07:47→20:12)
--- NOTE | 2018-06-17 09:19 | PQF ---
PROVIDER RESPONSE TEXT: chronic REVIEWER QUERY TEXT: Atrial Fibrillation Type Atrial fibrillation is documented in the Medical Record. Please specify the type. Such as: -- Chronic -- Paroxysmal -- Permanent -- Persistent -- Other, please specify H and P includes; Assessment: SOB CHF vs COPD CHF Afib S/P TAVR Diuretics Cardiology Eliquis 2.5 BID COPD [facility] Smoker Pulmonary The patient's Clinical Indicators include: --- Query created by: Jennifer Chanel on 06/16/2018 8:34 AM Electronically signed by: Torrey Branch MD 06/17/2018 9:16 AM
--- NOTE | 2018-06-17 09:19 | PQF ---
PROVIDER RESPONSE TEXT: agree REVIEWER QUERY TEXT: Clarification of Clinical Diagnostic Findings Please clarify if there is an associated diagnosis to go along with the Chemistry labs as follows: BUN:47->59 Creatinine:2.2->2.1 Est GFR ( Amer):35->36 Est GFR (Non- Af Amer): 29->30 OR: Disagree OR: Unable to determine OR: Other explanation of clinical findings H and P: HPI: admitted for SOB SOB CHF vs COPD CHF Afib S/P TAVR Diuretics Cardiology Eliquis 2.5 BID COPD [facility] Smoker Pulm Abdominal distention Colonic ileus ( recurrent ) etiol ??2 to L-S surgery Surgery GI Rectal tube rein serted pyridostigmine LLE edema cellulitis ??ecchymosis??Improving ID Podiatry IV ABX Lasix Endovascular consult ???CT scan done no significant findings The patient's Clinical Indicators include: ---- Query created by: Jennifer Chanel on 06/16/2018 8:48 AM Electronically signed by: Torrey Branch MD 06/17/2018 9:16 AM
--- NOTE | 2018-06-17 09:19 | PQF ---
PROVIDER RESPONSE TEXT: CURRENT DG REVIEWER QUERY TEXT: Clarification of Clinical Diagnostic Findings Please clarify if Hyperkalemia listed in the H and P: Assessment is history only and not a current d iagnosis? OR: Disagree OR: Other explanation of clinical finding Serum K: 4.5-.4.1 H and P includes; Hyperkalemia 2 to Bactrim??Kaexylate given Hold NAMRATA Urine lytes Nephrology The patient's Clinical Indicators include: --- Query created by: Jennifer Chanel on 06/16/2018 8:32 AM Electronically signed by: Torrey Branch MD 06/17/2018 9:16 AM
[2018-06-17] MEDS: Tiotropium 18 mcg Cap For Inhalation IH SCH (09:20)
--- NOTE | 2018-06-17 10:26 | CP.PCM.PN ---
Subjective - Date & Time of Evaluation Date of Evaluation: 06/17/18 Time of Evaluation: 10:26 - Subjective Subjective: Thoracentesis yesterday with 1.5L transudative fluid removed. Follow up CXR showing improved aeration in the right chest. left chest still has congested vascular pattern and likely a smaller effusion. Dependant edema has improved significantly. Echocardiogram shows LV function to be relatively good. No pulmonary hypertension. LA markedly dilated? Renal function is significantly compromised. Breathes much more easily subsequent to thoracentesis. May be stable with simple O2 via nasal canula. Add continuous SpO2 to monnitoring. Objective - Vital Signs/Intake and Output Vital Signs (last 24 hours): Temp Pulse Resp BP Pulse Ox 98.5 F 89 18 120/69 96 06/17/18 08:28 06/17/18 09:22 06/17/18 08:28 06/17/18 09:22 06/17/18 08:28 Intake and Output: 06/16/18 06/17/18 23:59 11:59 Intake Total 490 Balance 490 - Medications Medications: Current Medications Albuterol (Ventolin Hfa 90 Mcg/Actuation (8 G)) 2 puff IH Q8 PRN PRN Reason: Shortness of Breath Albuterol/Ipratropium (Duoneb 3 Mg/0.5 Mg (3 Ml) Ud) 3 ml INH RQID [facility] Last Admin: 06/17/18 07:47 Dose: 3 ml Apixaban (Eliquis) 2.5 mg PO Q12 [facility]; Protocol Last Admin: 06/17/18 09:20 Dose: 2.5 mg Aspirin (Ecotrin) 81 mg PO DAILY [facility] Last Admin: 06/17/18 09:20 Dose: 81 mg Atorvastatin Calcium (Lipitor) 20 mg PO HS [facility] Last Admin: 06/16/18 21:33 Dose: 20 mg Docusate Sodium (Colace) 100 mg PO BID [facility] Last Admin: 06/17/18 09:20 Dose: 100 mg Furosemide (Lasix) 40 mg IV DAILY [facility] Last Admin: 06/17/18 09:21 Dose: 40 mg Ampicillin Sodium/Sulbactam (Sodium 1.5 gm/ Sodium Chloride) 100 mls @ 100 mls/hr IVPB Q12 [facility]; Protocol Last Admin: 06/17/18 09:25 Dose: 100 mls/hr Lactic Acid (Lac-Hydrin 12% Lotion (225 G)) 1 applic TOP TID [facility] Last Admin: 06/17/18 09:20 Dose: 1 appl Lactulose (Enulose) 10 gm PO DAILY PRN PRN Reason: Constipation Metoprolol Tartrate (Lopressor) 25 mg PO Q12 [facility] Last Admin: 06/17/18 09:22 Dose: 25 mg Pyridostigmine [place] (Mestinon Tab) 30 mg PO TID [facility] Last Admin: 06/17/18 09:22 Dose: 30 mg Sennosides (Senokot Tab) 8.6 mg PO BID [facility] Last Admin: 06/17/18 09:23 Dose: 8.6 mg Tiotropium [place] (Spiriva) 18 mcg IH DAILY [facility] Last Admin: 06/17/18 09:20 Dose: 18 mcg - Labs Labs: 06/16/18 06:00 06/16/18 05:50 Assessment and Plan (1) COPD (chronic obstructive pulmonary disease) Status: Chronic (2) 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
--- NOTE | 2018-06-17 11:06 | CP.PCM.PN ---
Subjective - Date & Time of Evaluation Date of Evaluation: 06/17/18 Time of Evaluation: 11:03 - Subjective Subjective: feeling better , lying flat Objective - Vital Signs/Intake and Output Vital Signs (last 24 hours): Temp Pulse Resp BP Pulse Ox 98.5 F 89 18 120/69 96 06/17/18 08:28 06/17/18 09:22 06/17/18 08:28 06/17/18 09:22 06/17/18 08:28 Intake and Output: 06/17/18 06/17/18 06:59 18:59 Intake Total 490 Balance 490 - Medications Medications: Current Medications Albuterol (Ventolin Hfa 90 Mcg/Actuation (8 G)) 2 puff IH Q8 PRN PRN Reason: Shortness of Breath Albuterol/Ipratropium (Duoneb 3 Mg/0.5 Mg (3 Ml) Ud) 3 ml INH RQID [facility] Last Admin: 06/17/18 07:47 Dose: 3 ml Apixaban (Eliquis) 2.5 mg PO Q12 [facility]; Protocol Last Admin: 06/17/18 09:20 Dose: 2.5 mg Aspirin (Ecotrin) 81 mg PO DAILY [facility] Last Admin: 06/17/18 09:20 Dose: 81 mg Atorvastatin Calcium (Lipitor) 20 mg PO HS [facility] Last Admin: 06/16/18 21:33 Dose: 20 mg Docusate Sodium (Colace) 100 mg PO BID [facility] Last Admin: 06/17/18 09:20 Dose: 100 mg Furosemide (Lasix) 40 mg IV DAILY [facility] Last Admin: 06/17/18 09:21 Dose: 40 mg Ampicillin Sodium/Sulbactam (Sodium 1.5 gm/ Sodium Chloride) 100 mls @ 100 mls/hr IVPB Q12 [facility]; Protocol Last Admin: 06/17/18 09:25 Dose: 100 mls/hr Lactic Acid (Lac-Hydrin 12% Lotion (225 G)) 1 applic TOP TID [facility] Last Admin: 06/17/18 09:20 Dose: 1 appl Lactulose (Enulose) 10 gm PO DAILY PRN PRN Reason: Constipation Metoprolol Tartrate (Lopressor) 25 mg PO Q12 [facility] Last Admin: 06/17/18 09:22 Dose: 25 mg Pyridostigmine [place] (Mestinon Tab) 30 mg PO TID [facility] Last Admin: 06/17/18 09:22 Dose: 30 mg Sennosides (Senokot Tab) 8.6 mg PO BID [facility] Last Admin: 06/17/18 09:23 Dose: 8.6 mg Tiotropium [place] (Spiriva) 18 mcg IH DAILY [facility] Last Admin: 06/17/18 09:20 Dose: 18 mcg - Labs Labs: 06/16/18 06:00 06/16/18 05:50 - Respiratory Exam Respiratory Exam: Decreased Breath Sounds - Cardiovascular Exam Cardiovascular Exam: Irregular Rhythm, Murmur - GI/Abdominal Exam GI & Abdominal Exam: Normal Bowel Sounds - Extremities Exam Extremities Exam: Pedal Edema Assessment and Plan - Assessment and Plan (Free Text) Assessment: Dyspnea improved ECHO: LVEF normal, Normal TAVR function Bun/Cr elevated ? diuresis S/p thoracentecis Chem Chem 7 am
[2018-06-17 11:36] LABS: HEMOGLOBIN 9.8 g/dL (12.0-18.0); MEAN CELL VOLUME 93.6 fl (80.0-94.0); MEAN CORPUSCULAR HEMOGLOBIN 30.7 pg (27.0-31.0); MEAN CORPUSCULAR HGB CONC 32.8 g/dL (33.0-37.0); RBC 3.2 Mil/uL (4.40-5.90); WHITE BLOOD COUNT 7.2 K/uL (4.8-10.8)
--- NOTE | 2018-06-17 15:18 | CP.PCM.PN ---
Subjective - Date & Time of Evaluation Date of Evaluation: 06/17/18 Time of Evaluation: 15:17 - Subjective Subjective: no events overnight sob is improved o/e: vss, obese male gen: nad on nasal cannula sclera: anicteric heent; perrla op: clear neck: supple no thyromegaly lungs: b/l air entry reduced at bases cv: +S1+s2 no rub abd: + distenseion reduced bowel sounds ext: 2+ edema with erythematous changes neuro: A+OX3 no focal deficit psych: nml affect/mood. limited insight skin: No rash no ulcer except erythema in legs labs and imaging reviewed Assessment: ARF hyperkalemia ? due to bactrim: resolved HTN, COPD CHF s/p TAVR Obesity cellulitis ANTHONY ? due to bactrim plan: cr is better, lytes reviewed CT abdomen done and no urinary retention noted lytes ok bp stable continue with lasix sob improved Objective - Vital Signs/Intake and Output Vital Signs (last 24 hours): Temp Pulse Resp BP Pulse Ox 98.3 F 79 18 120/63 98 06/17/18 12:18 06/17/18 12:18 06/17/18 12:18 06/17/18 12:18 06/17/18 12:18 Intake and Output: 06/17/18 06/17/18 06:59 18:59 Intake Total 490 Balance 490 - Medications Medications: Current Medications Albuterol (Ventolin Hfa 90 Mcg/Actuation (8 G)) 2 puff IH Q8 PRN PRN Reason: Shortness of Breath Albuterol/Ipratropium (Duoneb 3 Mg/0.5 Mg (3 Ml) Ud) 3 ml INH RQID [facility] Last Admin: 06/17/18 11:37 Dose: 3 ml Apixaban (Eliquis) 2.5 mg PO Q12 [facility]; Protocol Last Admin: 06/17/18 09:20 Dose: 2.5 mg Aspirin (Ecotrin) 81 mg PO DAILY [facility] Last Admin: 06/17/18 09:20 Dose: 81 mg Atorvastatin Calcium (Lipitor) 20 mg PO HS [facility] Last Admin: 06/16/18 21:33 Dose: 20 mg Docusate Sodium (Colace) 100 mg PO BID [facility] Last Admin: 06/17/18 09:20 Dose: 100 mg Furosemide (Lasix) 40 mg IV DAILY [facility] Last Admin: 06/17/18 09:21 Dose: 40 mg Ampicillin Sodium/Sulbactam (Sodium 1.5 gm/ Sodium Chloride) 100 mls @ 100 mls/hr IVPB Q12 [facility]; Protocol Last Admin: 06/17/18 09:25 Dose: 100 mls/hr Lactic Acid (Lac-Hydrin 12% Lotion (225 G)) 1 applic TOP TID [facility] Last Admin: 06/17/18 14:01 Dose: 1 appl Lactulose (Enulose) 10 gm PO DAILY PRN PRN Reason: Constipation Metoprolol Tartrate (Lopressor) 25 mg PO Q12 [facility] Last Admin: 06/17/18 09:22 Dose: 25 mg Pyridostigmine [place] (Mestinon Tab) 30 mg PO TID [facility] Last Admin: 06/17/18 14:02 Dose: 30 mg Sennosides (Senokot Tab) 8.6 mg PO BID [facility] Last Admin: 06/17/18 09:23 Dose: 8.6 mg Tiotropium [place] (Spiriva) 18 mcg IH DAILY [facility] Last Admin: 06/17/18 09:20 Dose: 18 mcg - Labs Labs: 06/17/18 11:10 06/17/18 11:10
--- NOTE | 2018-06-17 17:21 | CP.PCM.PN ---
Subjective - Date & Time of Evaluation Date of Evaluation: 06/17/18 Time of Evaluation: 22:22 - Subjective Subjective: Improved Objective - Vital Signs/Intake and Output Vital Signs (last 24 hours): Temp Pulse Resp BP Pulse Ox 98.2 F 89 22 134/54 L 94 L 06/17/18 16:23 06/17/18 16:23 06/17/18 16:23 06/17/18 16:23 06/17/18 16:23 Intake and Output: 06/17/18 06/17/18 06:59 18:59 Intake Total 490 Balance 490 - Medications Medications: Current Medications Albuterol (Ventolin Hfa 90 Mcg/Actuation (8 G)) 2 puff IH Q8 PRN PRN Reason: Shortness of Breath Albuterol/Ipratropium (Duoneb 3 Mg/0.5 Mg (3 Ml) Ud) 3 ml INH RQID [facility] Last Admin: 06/17/18 15:32 Dose: 3 ml Apixaban (Eliquis) 2.5 mg PO Q12 [facility]; Protocol Last Admin: 06/17/18 09:20 Dose: 2.5 mg Aspirin (Ecotrin) 81 mg PO DAILY [facility] Last Admin: 06/17/18 09:20 Dose: 81 mg Atorvastatin Calcium (Lipitor) 20 mg PO HS [facility] Last Admin: 06/16/18 21:33 Dose: 20 mg Docusate Sodium (Colace) 100 mg PO BID [facility] Last Admin: 06/17/18 09:20 Dose: 100 mg Furosemide (Lasix) 40 mg IV DAILY [facility] Last Admin: 06/17/18 09:21 Dose: 40 mg Ampicillin Sodium/Sulbactam (Sodium 1.5 gm/ Sodium Chloride) 100 mls @ 100 mls/hr IVPB Q12 [facility]; Protocol Last Admin: 06/17/18 09:25 Dose: 100 mls/hr Lactic Acid (Lac-Hydrin 12% Lotion (225 G)) 1 applic TOP TID [facility] Last Admin: 06/17/18 14:01 Dose: 1 appl Lactulose (Enulose) 10 gm PO DAILY PRN PRN Reason: Constipation Metoprolol Tartrate (Lopressor) 25 mg PO Q12 [facility] Last Admin: 06/17/18 09:22 Dose: 25 mg Pyridostigmine [place] (Mestinon Tab) 30 mg PO TID [facility] Last Admin: 06/17/18 14:02 Dose: 30 mg Sennosides (Senokot Tab) 8.6 mg PO BID [facility] Last Admin: 06/17/18 09:23 Dose: 8.6 mg Tiotropium [place] (Spiriva) 18 mcg IH DAILY [facility] Last Admin: 06/17/18 09:20 Dose: 18 mcg - Labs Labs: 06/17/18 11:10 06/17/18 11:10 Assessment and Plan - Assessment and Plan (Free Text) Assessment: SOB CHF vs COPD CHF Afib S/P TAVR Diuretics Cardiology Eliquis 2.5 BID COPD [facility] Smoker Pulmonary ANTHONY/ CKD Lasix?? Nephrology Abdominal distention Colonic ileus ( recurrent ) etiol ?? 2 to L-S surgery Surgery GI Rectal tube reinserted pyridostigmine LLE edema cellulitis ?? ecchymosis?? Improving ID Podiatry IV ABX Lasix Endovascular consult ??? CT scan done no significant findings Hx Hyperkalemia 2 to Bactrim?? Kaexylate given Hold NAMRATA Urine lytes Hx Hypokalemia Hyperkalemia HTN Prediabetes Hx Low back surgery (Severe Spinal Stenosis) Post operative illeus
[2018-06-17 22:49] LABS: SQUAMOUS EPITHIAL < 1 /hpf (0-5); URINE BILIRUBIN NEGATIVE (NEGATIVE); URINE BLOOD SMALL (NEGATIVE); URINE CLARITY CLEAR (Clear); URINE COLOR YELLOW (YELLOW); URINE GLUCOSE (UA) NEG (NEGATIVE); URINE LEUKOCYTE ESTERASE NEG Leu/uL (Negative); URINE PROTEIN NEGATIVE (NEGATIVE); URINE UROBILINOGEN 0.2-1.0 mg/dL (0.2-1.0)
[2018-06-18 06:18] LABS: BLOOD UREA NITROGEN 43 mg/dl (9-20); CALCIUM 8.7 mg/dL (8.4-10.2); GFR NON-AFRICAN AMERICAN > 60
[2018-06-18 06:27] LABS: HEMOGLOBIN 9.8 g/dL (12.0-18.0); MEAN CELL VOLUME 95.3 fl (80.0-94.0); MEAN CORPUSCULAR HEMOGLOBIN 30.9 pg (27.0-31.0); MEAN CORPUSCULAR HGB CONC 32.5 g/dL (33.0-37.0); RBC 3.18 Mil/uL (4.40-5.90); RED CELL DISTRIBUTION WIDTH 16.8 % (11.5-14.5)
[2018-06-18] MEDS: Albuterol-Ipratrop 3 mg / 0.5 (3 ml) UD INH SCH ×4 (07:54→19:31)
[2018-06-18] MEDS ORDERED: Potassium Chloride 20 mEq ER Tab PO ONE (08:04)
--- NOTE | 2018-06-18 09:07 | CP.PCM.PN ---
Subjective - Date & Time of Evaluation Date of Evaluation: 06/18/18 Time of Evaluation: 09:04 - Subjective Subjective: RENAL no events overnight sob is improved no complaints today o/e: vss, obese male gen: nad on nasal cannula sclera: anicteric heent; perrla op: clear neck: supple no thyromegaly lungs: b/l air entry reduced at bases cv: +S1+s2 no rub abd: + distension +bs no r/g ext: 1+ edema neuro: A+OX3 no focal deficit psych: nml affect/mood. limited insight skin: No rash no ulcer except erythema in legs labs and imaging reviewed Assessment: ARF hypokalemia HTN, COPD CHF s/p TAVR Obesity cellulitis ANTHONY ? due to bactrim plan: renal function continues to improve ct noted 40 meq of po k ordered bp stable continue with lasix sob improved Objective - Vital Signs/Intake and Output Vital Signs (last 24 hours): Temp Pulse Resp BP Pulse Ox 97.9 F 72 20 111/61 96 06/18/18 08:41 06/18/18 08:41 06/18/18 08:41 06/18/18 08:41 06/18/18 08:41 - Medications Medications: Current Medications Albuterol (Ventolin Hfa 90 Mcg/Actuation (8 G)) 2 puff IH Q8 PRN PRN Reason: Shortness of Breath Albuterol/Ipratropium (Duoneb 3 Mg/0.5 Mg (3 Ml) Ud) 3 ml INH RQID [facility] Last Admin: 06/18/18 07:54 Dose: 3 ml Aspirin (Ecotrin) 81 mg PO DAILY [facility] Last Admin: 06/17/18 09:20 Dose: 81 mg Atorvastatin Calcium (Lipitor) 20 mg PO HS [facility] Last Admin: 06/17/18 21:21 Dose: 20 mg Docusate Sodium (Colace) 100 mg PO BID [facility] Last Admin: 06/17/18 17:22 Dose: Not Given Furosemide (Lasix) 40 mg IV DAILY [facility] Last Admin: 06/17/18 09:21 Dose: 40 mg Ampicillin Sodium/Sulbactam (Sodium 1.5 gm/ Sodium Chloride) 100 mls @ 100 mls/hr IVPB Q12 [facility]; Protocol Last Admin: 06/17/18 20:12 Dose: 100 mls/hr Lactic Acid (Lac-Hydrin 12% Lotion (225 G)) 1 applic TOP TID [facility] Last Admin: 06/17/18 17:23 Dose: 1 appl Lactulose (Enulose) 10 gm PO DAILY PRN PRN Reason: Constipation Metoprolol Tartrate (Lopressor) 25 mg PO Q12 [facility] Last Admin: 06/17/18 21:21 Dose: 25 mg Pyridostigmine [place] (Mestinon Tab) 30 mg PO TID [facility] Last Admin: 06/17/18 17:23 Dose: 30 mg Sennosides (Senokot Tab) 8.6 mg PO BID [facility] Last Admin: 06/17/18 17:23 Dose: Not Given Tiotropium [place] (Spiriva) 18 mcg IH DAILY [facility] Last Admin: 06/17/18 09:20 Dose: 18 mcg - Labs Labs: 06/18/18 05:15 06/18/18 05:15
[2018-06-18] MEDS: Tiotropium 18 mcg Cap For Inhalation IH SCH (09:08)
--- NOTE | 2018-06-18 11:44 | CP.PCM.PN ---
Subjective - Date & Time of Evaluation Date of Evaluation: 06/18/18 Time of Evaluation: 11:42 - Subjective Subjective: Podiatry progress note: Dr. Alvarado Patient seen and evaluated this AM for b/l LE edema. Patient resting comfortably and in NAD. He denies any new pedal complaints today. Denies Nausea/vomiting/fever/chest pain. Objective - Vital Signs/Intake and Output Vital Signs (last 24 hours): Temp Pulse Resp BP Pulse Ox 97.9 F 72 20 111/62 96 06/18/18 08:41 06/18/18 09:07 06/18/18 08:41 06/18/18 09:07 06/18/18 08:41 - Medications Medications: Current Medications Albuterol (Ventolin Hfa 90 Mcg/Actuation (8 G)) 2 puff IH Q8 PRN PRN Reason: Shortness of Breath Albuterol/Ipratropium (Duoneb 3 Mg/0.5 Mg (3 Ml) Ud) 3 ml INH RQID [facility] Last Admin: 06/18/18 11:27 Dose: 3 ml Aspirin (Ecotrin) 81 mg PO DAILY [facility] Last Admin: 06/18/18 09:05 Dose: 81 mg Atorvastatin Calcium (Lipitor) 20 mg PO HS [facility] Last Admin: 06/17/18 21:21 Dose: 20 mg Docusate Sodium (Colace) 100 mg PO BID [facility] Last Admin: 06/18/18 09:06 Dose: Not Given Furosemide (Lasix) 40 mg IV DAILY [facility] Last Admin: 06/18/18 09:06 Dose: 40 mg Ampicillin Sodium/Sulbactam (Sodium 1.5 gm/ Sodium Chloride) 100 mls @ 100 mls/hr IVPB Q12 [facility]; Protocol Last Admin: 06/18/18 10:20 Dose: 100 mls/hr Lactic Acid (Lac-Hydrin 12% Lotion (225 G)) 1 applic TOP TID [facility] Last Admin: 06/18/18 09:04 Dose: 1 appl Lactulose (Enulose) 10 gm PO DAILY PRN PRN Reason: Constipation Metoprolol Tartrate (Lopressor) 25 mg PO Q12 [facility] Last Admin: 06/18/18 09:07 Dose: 25 mg Pyridostigmine [place] (Mestinon Tab) 30 mg PO TID [facility] Last Admin: 06/18/18 09:04 Dose: 30 mg Sennosides (Senokot Tab) 8.6 mg PO BID [facility] Last Admin: 06/18/18 09:08 Dose: Not Given Tiotropium [place] (Spiriva) 18 mcg IH DAILY [facility] Last Admin: 06/18/18 09:08 Dose: 18 mcg - Labs Labs: 06/18/18 05:15 06/18/18 05:15 - Constitutional Appears: Non-toxic, No Acute Distress - Head Exam Head Exam: ATRAUMATIC, NORMOCEPHALIC - Extremities Exam Additional comments: B/L LE focused exam: VASC: DP/PT pulses 1/4 palpable, cap refill <3 seconds to all digits, hair growth absent b/l, temp gradient warm to cool, pitting edema noted likely secondary to fluids, improving Neuro: Gross and protective sensation intact Derm: No open lesions or wounds present, no drainage, no purulence, no streaking, erythema resolved Ortho: Tenderness upon palpation of b/l LE, no other gross pathology noted - Neurological Exam Neurological Exam: Alert, Awake, Oriented x3 - Psychiatric Exam Psychiatric exam: Normal Affect, Normal Mood Assessment and Plan - Assessment and Plan (Free Text) Assessment: 88M patient seen and evaluated at the bedside for b/l LE edema Plan: Patient seen and evaluated at the bedside with Dr. Alvarado WBC 6.0, afebrile Blood culture: No growth after 5 days. Continue Physical therapy Continue IV abx per ID Will continue to follow while in house
--- NOTE | 2018-06-18 12:23 | CP.PCM.PN ---
Subjective - Date & Time of Evaluation Date of Evaluation: 06/18/18 Time of Evaluation: 12:21 - Subjective Subjective: resting comfortably, reports desaturation with walking Objective - Vital Signs/Intake and Output Vital Signs (last 24 hours): Temp Pulse Resp BP Pulse Ox 97.9 F 72 20 111/62 96 06/18/18 08:41 06/18/18 09:07 06/18/18 08:41 06/18/18 09:07 06/18/18 11:26 - Medications Medications: Current Medications Albuterol (Ventolin Hfa 90 Mcg/Actuation (8 G)) 2 puff IH Q8 PRN PRN Reason: Shortness of Breath Albuterol/Ipratropium (Duoneb 3 Mg/0.5 Mg (3 Ml) Ud) 3 ml INH RQID [facility] Last Admin: 06/18/18 11:27 Dose: 3 ml Aspirin (Ecotrin) 81 mg PO DAILY [facility] Last Admin: 06/18/18 09:05 Dose: 81 mg Atorvastatin Calcium (Lipitor) 20 mg PO HS [facility] Last Admin: 06/17/18 21:21 Dose: 20 mg Docusate Sodium (Colace) 100 mg PO BID [facility] Last Admin: 06/18/18 09:06 Dose: Not Given Furosemide (Lasix) 40 mg IV DAILY [facility] Last Admin: 06/18/18 09:06 Dose: 40 mg Ampicillin Sodium/Sulbactam (Sodium 1.5 gm/ Sodium Chloride) 100 mls @ 100 mls/hr IVPB Q12 [facility]; Protocol Last Admin: 06/18/18 10:20 Dose: 100 mls/hr Lactic Acid (Lac-Hydrin 12% Lotion (225 G)) 1 applic TOP TID [facility] Last Admin: 06/18/18 09:04 Dose: 1 appl Lactulose (Enulose) 10 gm PO DAILY PRN PRN Reason: Constipation Metoprolol Tartrate (Lopressor) 25 mg PO Q12 [facility] Last Admin: 06/18/18 09:07 Dose: 25 mg Pantoprazole Sodium (Protonix Ec Tab) 40 mg PO DAILY [facility] Pyridostigmine [place] (Mestinon Tab) 30 mg PO TID [facility] Last Admin: 06/18/18 09:04 Dose: 30 mg Sennosides (Senokot Tab) 8.6 mg PO BID [facility] Last Admin: 06/18/18 09:08 Dose: Not Given Tiotropium [place] (Spiriva) 18 mcg IH DAILY [facility] Last Admin: 06/18/18 09:08 Dose: 18 mcg - Labs Labs: 06/18/18 05:15 06/18/18 05:15 - Respiratory Exam Respiratory Exam: Decreased Breath Sounds - Cardiovascular Exam Cardiovascular Exam: Irregular Rhythm - GI/Abdominal Exam GI & Abdominal Exam: Normal Bowel Sounds - Extremities Exam Extremities Exam: Pedal Edema Additional comments: improved Assessment and Plan - Assessment and Plan (Free Text) Assessment: stable hemodynamically breathing improved edema improved Bun/Cr improved ambulation
--- NOTE | 2018-06-18 12:53 | CT ---
PROCEDURE: Date of procedure: 06/16/2018 Procedure: 1. Ultrasound-guided Right thoracentesis, CPT 26135 Medications: 6cc 1% Lidocaine HISTORY: Right pleural effusion, shortness of breath TECHNIQUE: Following informed consent ,the Patients' right chest was marked. Procedure time-out was called, and the patient was placed in the sitting position and limited ultrasound showed a large right effusion. The patient's right back was prepped and draped in the usual sterile fashion. After the skin was anesthetized with lidocaine, a drainage catheter was advanced under ultrasound guidance into the pleural space. Ultrasound-guided thoracentesis was performed. A total of 1600 cubic centimeters of straw-colored fluid removed without complication. A Xeroform dressing was applied. IMPRESSION: Ultrasound guided Right thoracentesis. There were no immediate complications.
--- NOTE | 2018-06-18 13:11 | CP.PCM.PN ---
Subjective - Date & Time of Evaluation Date of Evaluation: 06/18/18 Time of Evaluation: 22:22 - Subjective Subjective: Cardiology note appreciated Objective - Vital Signs/Intake and Output Vital Signs (last 24 hours): Temp Pulse Resp BP Pulse Ox 98.1 F 95 H 20 109/61 97 06/18/18 12:49 06/18/18 12:49 06/18/18 12:49 06/18/18 12:49 06/18/18 12:49 - Medications Medications: Current Medications Albuterol (Ventolin Hfa 90 Mcg/Actuation (8 G)) 2 puff IH Q8 PRN PRN Reason: Shortness of Breath Albuterol/Ipratropium (Duoneb 3 Mg/0.5 Mg (3 Ml) Ud) 3 ml INH RQID [facility] Last Admin: 06/18/18 11:27 Dose: 3 ml Aspirin (Ecotrin) 81 mg PO DAILY [facility] Last Admin: 06/18/18 09:05 Dose: 81 mg Atorvastatin Calcium (Lipitor) 20 mg PO HS [facility] Last Admin: 06/17/18 21:21 Dose: 20 mg Docusate Sodium (Colace) 100 mg PO BID [facility] Last Admin: 06/18/18 09:06 Dose: Not Given Furosemide (Lasix) 40 mg IV DAILY [facility] Last Admin: 06/18/18 09:06 Dose: 40 mg Ampicillin Sodium/Sulbactam (Sodium 1.5 gm/ Sodium Chloride) 100 mls @ 100 mls/ hr IVPB Q12 [facility]; Protocol Last Admin: 06/18/18 10:20 Dose: 100 mls/hr Lactic Acid (Lac-Hydrin 12% Lotion (225 G)) 1 applic TOP TID [facility] Last Admin: 06/18/18 09:04 Dose: 1 appl Lactulose (Enulose) 10 gm PO DAILY PRN PRN Reason: Constipation Metoprolol Tartrate (Lopressor) 25 mg PO Q12 [facility] Last Admin: 06/18/18 09:07 Dose: 25 mg Pantoprazole Sodium (Protonix Ec Tab) 40 mg PO DAILY [facility] Pyridostigmine [place] (Mestinon Tab) 30 mg PO TID [facility] Last Admin: 06/18/18 09:04 Dose: 30 mg Sennosides (Senokot Tab) 8.6 mg PO BID [facility] Last Admin: 03/22/19 09:08 Dose: Not Given Tiotropium [place] (Spiriva) 18 mcg IH DAILY [facility] Last Admin: 06/18/18 09:08 Dose: 18 mcg - Labs Labs: 06/18/18 05:15 06/18/18 05:15 Assessment and Plan - Assessment and Plan (Free Text) Assessment: SOB Improved S/P thoracentesis Pleural effusion CHF vs COPD CHF Afib S/P TAVR Diuretics Cardiology Eliquis 2.5 BID COPD COSA Smoker Pulmonary ANTHONY/ CKD Lasix?? Nephrology Abdominal distention improved Colonic ileus ( recurrent ) etiol ?? 2 to L-S surgery Surgery GI pyridostigmine LLE edema cellulitis ?? ecchymosis?? Improving ID Podiatry IV ABX Lasix Endovascular consult ??? CT scan done no significant findings Hx Hyperkalemia 2 to Bactrim?? Kaexylate given Hold NAMRATA Urine lytes Hx Hypokalemia Hyperkalemia HTN Prediabetes Hx Low back surgery (Severe Spinal Stenosis) Post operative illeus
--- NOTE | 2018-06-18 13:22 | CP.PCM.PN ---
Subjective - Date & Time of Evaluation Date of Evaluation: 06/18/18 Time of Evaluation: 13:17 - Subjective Subjective: Patient is seated on the edge of bed, appears comfortable. Pleural fluid was transudative with negative routine culture. He has been breathing more easily post thoracentesis. Slept well last night except for frequent awakenings because of noise (roommate), Dependant edema in the LEs has been decreasing nicely, hyperpigmentation of both distal legs is unchanged. No erythema or incresed warmth in the legs. Neck is supple and trachea midline. Dullness on palpation is still present in the bases bilaterally. Breath sounds are diminished bilaterally especially in the bases. No audible wheezing or bronchial breath sounds, few scattered dry rales. Heart sounds are distant, irregular with systolic murmur at base. Will request follow up chest x-ray. Continue present medical regimen except for Spiriva (therapeutic duplication). If significant residual effusion on either side will consider another tap. Physical therapy for strengthening. Objective - Vital Signs/Intake and Output Vital Signs (last 24 hours): Temp Pulse Resp BP Pulse Ox 98.1 F 95 H 20 109/61 97 06/18/18 12:49 06/18/18 12:49 06/18/18 12:49 06/18/18 12:49 06/18/18 12:49 - Medications Medications: Current Medications Albuterol (Ventolin Hfa 90 Mcg/Actuation (8 G)) 2 puff IH Q8 PRN PRN Reason: Shortness of Breath Albuterol/Ipratropium (Duoneb 3 Mg/0.5 Mg (3 Ml) Ud) 3 ml INH RQID [facility] Last Admin: 06/18/18 11:27 Dose: 3 ml Aspirin (Ecotrin) 81 mg PO DAILY [facility] Last Admin: 06/18/18 09:05 Dose: 81 mg Atorvastatin Calcium (Lipitor) 20 mg PO HS [facility] Last Admin: 06/17/18 21:21 Dose: 20 mg Docusate Sodium (Colace) 100 mg PO BID [facility] Last Admin: 06/18/18 09:06 Dose: Not Given Furosemide (Lasix) 40 mg IV DAILY [facility] Last Admin: 06/18/18 09:06 Dose: 40 mg Ampicillin Sodium/Sulbactam (Sodium 1.5 gm/ Sodium Chloride) 100 mls @ 100 mls/hr IVPB Q12 [facility]; Protocol Last Admin: 06/18/18 10:20 Dose: 100 mls/hr Lactic Acid (Lac-Hydrin 12% Lotion (225 G)) 1 applic TOP TID [facility] Last Admin: 06/18/18 09:04 Dose: 1 appl Lactulose (Enulose) 10 gm PO DAILY PRN PRN Reason: Constipation Metoprolol Tartrate (Lopressor) 25 mg PO Q12 [facility] Last Admin: 06/18/18 09:07 Dose: 25 mg Pantoprazole Sodium (Protonix Ec Tab) 40 mg PO DAILY [facility] Pyridostigmine [place] (Mestinon Tab) 30 mg PO TID [facility] Last Admin: 06/18/18 09:04 Dose: 30 mg Sennosides (Senokot Tab) 8.6 mg PO BID [facility] Last Admin: 06/18/18 09:08 Dose: Not Given Tiotropium [place] (Spiriva) 18 mcg IH DAILY [facility] Last Admin: 06/18/18 09:08 Dose: 18 mcg - Labs Labs: 06/18/18 05:15 06/18/18 05:15 Assessment and Plan (1) COPD (chronic obstructive pulmonary disease) Status: Chronic (2) 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
[2018-06-18] MEDS: Pantoprazole 40 mg EC Tab PO SCH (15:05)
--- NOTE | 2018-06-18 16:31 | CP.PCM.CON ---
History of Present Illness - History of Present Illness History of Present Illness: 88 yo male seen previously for abdominal distention. developed SOB and found to have large pleural effusion which was tapped. Now feels better. Having regular bowel movements.. Review of Systems - Constitutional Constitutional: absent: Chills - EENT Eyes: absent: Blurred Vision Ears: absent: Ear Pain Nose/Mouth/Throat: absent: Nasal Congestion - Cardiovascular Cardiovascular: absent: Chest Pain - Respiratory Respiratory: absent: Dyspnea - Gastrointestinal Gastrointestinal: As Per HPI - Genitourinary Genitourinary: absent: Change in Urinary Stream Past Patient History - Infectious Disease Hx of Infectious Diseases: None - Past Medical History & Family History Past Medical History?: Yes - Past Social History Alcohol: None Drugs: Denies - CARDIAC Hx Atrial Fibrillation: Yes Hx Congestive Heart Failure: Yes Hx Hypercholesterolemia: Yes Hx Hypertension: Yes Hx Peripheral Edema: Yes - PULMONARY Hx Bronchitis: Yes Hx Chronic Obstructive Pulmonary Disease (COPD): Yes - NEUROLOGICAL Hx Neurological Disorder: No - HEENT Hx HEENT Problems: No - RENAL Hx Chronic Kidney Disease: No - ENDOCRINE/METABOLIC Hx Endocrine Disorders: No - HEMATOLOGICAL/ONCOLOGICAL Hx Human Immunodeficiency Virus (HIV): No - INTEGUMENTARY Other/Comment: skin lesion recently removed from left infra-ocular area - MUSCULOSKELETAL/RHEUMATOLOGICAL Hx Falls: No Hx Gout: Yes Hx Unsteady Gait: Yes (ambulates with cane) - GASTROINTESTINAL Hx Gastrointestinal Disorders: No - GENITOURINARY/GYNECOLOGICAL Hx Genitourinary Disorders: No - PSYCHIATRIC Hx Psychophysiologic Disorder: No Hx Substance Use: No - SURGICAL HISTORY Hx Valve Replacement: Yes (TAVR) Other/Comment: Laminectomy L3-L5 05/15/2017 - ANESTHESIA Hx Anesthesia: Yes Hx Anesthesia Reactions: No Hx Malignant Hyperthermia: No Meds Allergies/Adverse Reactions: Allergies Allergy/AdvReac Type Severity Reaction Status Date / Time No Known Allergies Allergy Verified 06/09/18 15:09 - Medications Medications: Current Medications Albuterol (Ventolin Hfa 90 Mcg/Actuation (8 G)) 2 puff IH Q8 PRN PRN Reason: Shortness of Breath Albuterol/Ipratropium (Duoneb 3 Mg/0.5 Mg (3 Ml) Ud) 3 ml INH RQID [facility] Last Admin: 06/18/18 15:29 Dose: 3 ml Aspirin (Ecotrin) 81 mg PO DAILY [facility] Last Admin: 06/18/18 09:05 Dose: 81 mg Atorvastatin Calcium (Lipitor) 20 mg PO HS [facility] Last Admin: 06/17/18 21:21 Dose: 20 mg Docusate Sodium (Colace) 100 mg PO BID [facility] Last Admin: 06/18/18 09:06 Dose: Not Given Furosemide (Lasix) 40 mg IV DAILY [facility] Last Admin: 06/18/18 09:06 Dose: 40 mg Ampicillin Sodium/Sulbactam (Sodium 1.5 gm/ Sodium Chloride) 100 mls @ 100 mls/hr IVPB Q12 [facility]; Protocol Last Admin: 06/18/18 10:20 Dose: 100 mls/hr Lactic Acid (Lac-Hydrin 12% Lotion (225 G)) 1 applic TOP TID [facility] Last Admin: 06/18/18 09:04 Dose: 1 appl Lactulose (Enulose) 10 gm PO DAILY PRN PRN Reason: Constipation Metoprolol Tartrate (Lopressor) 25 mg PO Q12 [facility] Last Admin: 06/18/18 09:07 Dose: 25 mg Pantoprazole Sodium (Protonix Ec Tab) 40 mg PO DAILY [facility] Pyridostigmine [place] (Mestinon Tab) 30 mg PO TID [facility] Last Admin: 06/18/18 09:04 Dose: 30 mg Sennosides (Senokot Tab) 8.6 mg PO BID [facility] Last Admin: 06/18/18 09:08 Dose: Not Given Tiotropium [place] (Spiriva) 18 mcg IH DAILY [facility] Last Admin: 06/18/18 09:08 Dose: 18 mcg Physical Exam - Head Exam Head Exam: NORMAL INSPECTION - Eye Exam Eye Exam: Normal appearance - ENT Exam ENT Exam: Normal Exam - Neck Exam Neck exam: Positive for: Normal Inspection - Respiratory Exam Respiratory Exam: NORMAL BREATHING PATTERN - Cardiovascular Exam Cardiovascular Exam: +S1, +S2 - GI/Abdominal Exam GI & Abdominal Exam: Distended Results - Vital Signs Recent Vital Signs: Last Vital Signs Temp 97.4 F L 06/18/18 16:22 Pulse 85 06/18/18 16:22 Resp 18 06/18/18 16:22 BP 120/65 06/18/18 16:22 Pulse Ox 96 06/18/18 16:22 - Labs Result Diagrams: 06/18/18 05:15 06/18/18 05:15 Labs: Laboratory Results - last 24 hr 06/17/18 06/17/18 06/17/18 17:30 22:25 22:25 WBC RBC Hgb Hct MCV MCH MCHC RDW Plt Count Sodium Potassium Chloride Carbon Dioxide Anion Gap BUN Creatinine Est GFR ( Amer) Est GFR (Non-Af Amer) Random Glucose Calcium Urine Color Yellow Urine Clarity Clear Urine pH 6.0 Ur Specific [place] 1.014 Urine Protein Negative Urine Glucose (UA) Neg Urine Ketones Negative Urine Blood Small Urine Nitrate Negative Urine Bilirubin Negative Urine Urobilinogen 0.2-1.0 Ur Leukocyte Esterase Neg Urine RBC (Auto) 4 H Urine Microscopic WBC 2 Ur Squamous Epith Cells < 1 Ur Random Sodium 30 Stool Occult Blood Positive H 06/18/18 06/18/18 05:15 05:15 WBC 6.0 RBC 3.18 L Hgb 9.8 L Hct 30.3 L MCV 95.3 H MCH 30.9 MCHC 32.5 L RDW 16.8 H Plt Count 142 Sodium 142 Potassium 3.2 L Chloride 108 H Carbon Dioxide 29 Anion Gap 8 L BUN 43 H Creatinine 1.1 Est GFR ( Amer) > 60 Est GFR (Non-Af Amer) > 60 Random Glucose 112 H Calcium 8.7 Urine Color Urine Clarity Urine pH Ur Specific [place] Urine Protein Urine Glucose (UA) Urine Ketones Urine Blood Urine Nitrate Urine Bilirubin Urine Urobilinogen Ur Leukocyte Esterase Urine RBC (Auto) Urine Microscopic WBC Ur Squamous Epith Cells Ur Random Sodium Stool Occult Blood Assessment & Plan (1) Abdominal distention Assessment and Plan: Abdomen not as firm as it had been and patient having regular BMs. Continue senna and pyridostigmine. Advanced to solid diet. Status: Acute
--- NOTE | 2018-06-18 17:47 | PQF ---
PROVIDER RESPONSE TEXT: CKD stage I REVIEWER QUERY TEXT: Kidney Disease, Chronic CKD Stage Chronic Kidney Disease (CKD) is documented in the Medical Record. Please specify the disease stage ( includes probable or suspected) Such as: -- Chronic kidney disease Stage 1 -- Chronic kidney disease Stage 2 -- Chronic kidney disease Stage 3 -- Chronic kidney disease Stage 4 -- Chronic kidney disease Stage 5 -- Chronic kidney disease Stage 5, requiring dialysis -- End Stage Renal Disease -- Other, please specify BUN:47->59->55 Creatinine:2.2->2.1->1.6 Est GFR ( Amer):35->36->50 Est GFR (Non- Af Amer): 29->30->41 06/16 Attending progress note includes: ANTHONY/ CKD Lasix??Nephrology Stages are defined by the [employer] as follows: CKD Stage I GFR >= 90 ml / min per 1.73 m2 and persistent albuminuria CKD Stage 2 GFR between 60 and 89 with persistent albuminuria CKD Stage 3 GFR between 30 and 59 CKD Stage 4 GFR between 15 and 29 CKD Stage 5 GFR between <15 or End Stage Renal Disease The patient's Clinical Indicators include: --- Query created by: Jennifer Chanel on 06/17/2018 3:13 PM Electronically signed by: Torrey Branch MD 06/18/2018 5:43 PM
--- NOTE | 2018-06-18 17:47 | PQF ---
PROVIDER RESPONSE TEXT: diastolic REVIEWER QUERY TEXT: CHF Acuity and Type Congestive Heart Failure is documented in the Medical Record. Please document the type and acuity (in cludes probable or suspected) versus CHF ruled out? Such as: Type: -- Systolic -- Diastolic -- Combined -- Other, please specify Acuity: -- Acute -- Chronic -- Acute on chronic -- Other, please specify 06/16 ProBNP:6800 06/15 CXR: suspicious for acute pulmonary vascular congestion/pulmonary edema.Underlying bilateral per ihilar patchy infiltrates not excluded with atelectasis favored over consolidation left base.Clinical ly correlate further. Cardiac size stable 06/16 Echo: The estimated ejection fraction is 55-60% The left ventricular diastolic function cannot b e assessed due to underlying atrial fibrillation.The left atrium is severely dilated.There is modera te aortic valvular stenosis.Peak aortic velcity is - 3 m/sec and calculated PAT is 1.4 cm2.There is mild tricuspid valve regurgitation noted.RVSP is calculated at 37 mm Hg. The IVC is not visualized. 06/16 Attending progress note includes: :--SOB CHF vs COPD CHF Afib S/P TAVR 06/16 IR: Right pleural effusion, dyspnea Op US guided right thoracentesis 06/16 Cardiology note includes: 06/16 Cardio: /P TAVR ,CHRONIC ATRIAL FIBRILLATION ,COPD ?CHF, HTN, ,HYPERLIPIDEMIA , RECENT CELLULITIS - IV Lasix daily The patient's Clinical Indicators include: --- Query created by: Jennifer Chanel on 06/17/2018 3:09 PM Electronically signed by: Torrey Branch MD 06/18/2018 5:43 PM
[2018-06-19 06:21] LABS: HEMOGLOBIN 10.6 g/dL (12.0-18.0); MEAN CELL VOLUME 94.3 fl (80.0-94.0); MEAN CORPUSCULAR HEMOGLOBIN 31.1 pg (27.0-31.0); RBC 3.4 Mil/uL (4.40-5.90); RED CELL DISTRIBUTION WIDTH 16.9 % (11.5-14.5); WHITE BLOOD COUNT 5.9 K/uL (4.8-10.8)
[2018-06-19 06:38] LABS: BLOOD UREA NITROGEN 27 mg/dl (9-20); CALCIUM 9.1 mg/dL (8.4-10.2); GFR NON-AFRICAN AMERICAN > 60
[2018-06-19] MEDS: Albuterol-Ipratrop 3 mg / 0.5 (3 ml) UD INH SCH ×4 (07:28→19:26)
[2018-06-19] MEDS: Pantoprazole 40 mg EC Tab PO SCH (10:03)
--- NOTE | 2018-06-19 10:26 | RAD ---
Date of service: 06/19/2018 HISTORY: pleural effusion COMPARISON: Comparison chest 06/24/2018. TECHNIQUE: Chest PA and lateral views FINDINGS: LUNGS: Persistent but mild improvement pulmonary venous congestion. Left lower lobe atelectasis and or infiltrate with left effusion. Minor right basilar atelectasis and small right-sided effusion PLEURA: As above. No pneumothorax apparent. CARDIOVASCULAR: Aortic atherosclerotic calcification present. Heart appears enlarged. OSSEOUS STRUCTURES: No significant abnormalities. VISUALIZED UPPER ABDOMEN: Normal. OTHER FINDINGS: None. IMPRESSION: Persistent but mild improvement pulmonary venous congestion. Left lower lobe atelectasis and or infiltrate with left effusion. Minor right basilar atelectasis and small right-sided effusion
--- NOTE | 2018-06-19 10:44 | CP.PCM.PN ---
Subjective - Date & Time of Evaluation Date of Evaluation: 06/19/18 Time of Evaluation: 10:44 - Subjective Subjective: Looks good, seated OOB. Having bowel movements, abdomen less distended. Vital signs are stable. SpO2 90-92% on nasal canula at 2.5 LPM. Last CXR yesterday shows a blunted right CP angle, residual effusion and LLL atelectasis. Dependant edema is gradually improving and renal function as well. Breath sounds are well heard on the right, diminished with rhonchi but no wheezes. On the left they are fairly well heard in the upper regions, more decreased in the lower lobe, no wheeze. Heart sounds are distant, irregular rhythm. BMP in AM. Chest x-ray tomorrow. Continue present aerosol therapy. It appears now that he will likely need home O2 again. Objective - Vital Signs/Intake and Output Vital Signs (last 24 hours): Temp Pulse Resp BP Pulse Ox 97.5 F L 87 18 148/74 93 L 06/19/18 08:05 06/19/18 10:02 06/19/18 08:05 06/19/18 10:02 06/19/18 08:05 - Medications Medications: Current Medications Albuterol (Ventolin Hfa 90 Mcg/Actuation (8 G)) 2 puff IH Q8 PRN PRN Reason: Shortness of Breath Albuterol/Ipratropium (Duoneb 3 Mg/0.5 Mg (3 Ml) Ud) 3 ml INH RQID [facility] Last Admin: 06/19/18 07:28 Dose: 3 ml Aspirin (Ecotrin) 81 mg PO DAILY [facility] Last Admin: 06/19/18 10:00 Dose: 81 mg Atorvastatin Calcium (Lipitor) 20 mg PO HS [facility] Last Admin: 06/18/18 21:42 Dose: 20 mg Docusate Sodium (Colace) 100 mg PO BID [facility] Last Admin: 06/19/18 09:59 Dose: 100 mg Furosemide (Lasix) 40 mg IV DAILY [facility] Last Admin: 06/19/18 10:00 Dose: 40 mg Ampicillin Sodium/Sulbactam (Sodium 1.5 gm/ Sodium Chloride) 100 mls @ 100 mls/hr IVPB Q12 [facility]; Protocol Last Admin: 06/19/18 10:04 Dose: 100 mls/hr Lactic Acid (Lac-Hydrin 12% Lotion (225 G)) 1 applic TOP TID COUNT [facility] Last Admin: 06/19/18 10:00 Dose: 1 appl Lactulose (Enulose) 10 gm PO DAILY PRN PRN Reason: Constipation Metoprolol Tartrate (Lopressor) 25 mg PO Q12 [facility] Last Admin: 06/19/18 10:02 Dose: 25 mg Pantoprazole Sodium (Protonix Ec Tab) 40 mg PO DAILY [facility] Last Admin: 06/19/18 10:03 Dose: 40 mg Pyridostigmine [place] (Mestinon Tab) 30 mg PO TID [facility] Last Admin: 06/19/18 10:03 Dose: 30 mg Sennosides (Senokot Tab) 8.6 mg PO BID [facility] Last Admin: 06/19/18 10:04 Dose: 8.6 mg Tiotropium [place] (Spiriva) 18 mcg IH DAILY [facility] Last Admin: 06/18/18 09:08 Dose: 18 mcg - Labs Labs: 06/19/18 04:30 06/19/18 04:30 Assessment and Plan (1) COPD (chronic obstructive pulmonary disease) Status: Chronic (2) 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
[2018-06-20 06:57] LABS: BLOOD UREA NITROGEN 21 mg/dl (9-20); CALCIUM 8.6 mg/dL (8.4-10.2); GFR NON-AFRICAN AMERICAN > 60
[2018-06-20] MEDS: Albuterol-Ipratrop 3 mg / 0.5 (3 ml) UD INH SCH ×4 (07:41→19:54)
[2018-06-20] MEDS: Pantoprazole 40 mg EC Tab PO SCH (08:53)
--- NOTE | 2018-06-20 12:35 | RAD ---
Date of service: 06/20/2018 HISTORY: pleural effusion COMPARISON: Comparison made with chest radiograph dated 06/19/2018 TECHNIQUE: Chest PA and lateral views FINDINGS: LUNGS: Continued mild improvement pulmonary venous congestive changes and of the type infiltrates. There appears to be some residual bibasilar atelectasis and small bilateral effusions. PLEURA: As above. No pneumothorax apparent. CARDIOVASCULAR: Aortic atherosclerotic calcification present. Heart remains enlarged. OSSEOUS STRUCTURES: No significant abnormalities. VISUALIZED UPPER ABDOMEN: Normal. OTHER FINDINGS: None. IMPRESSION: Continued mild improvement pulmonary venous congestive changes and of the type infiltrates. There appears to be some residual bibasilar atelectasis and small bilateral effusions.
--- NOTE | 2018-06-20 14:44 | CP.PCM.PN ---
Subjective - Date & Time of Evaluation Date of Evaluation: 06/20/18 Time of Evaluation: 22:22 - Subjective Subjective: Improved doing well Stools brownish colored Objective - Vital Signs/Intake and Output Vital Signs (last 24 hours): Temp Pulse Resp BP Pulse Ox 97.6 F 79 20 122/68 93 L 06/20/18 13:03 06/20/18 13:03 06/20/18 13:03 06/20/18 13:03 06/20/18 13:03 - Medications Medications: Current Medications Albuterol (Ventolin Hfa 90 Mcg/Actuation (8 G)) 2 puff IH Q8 PRN PRN Reason: Shortness of Breath Albuterol/Ipratropium (Duoneb 3 Mg/0.5 Mg (3 Ml) Ud) 3 ml INH RQID [facility] Last Admin: 06/20/18 11:19 Dose: 3 ml Aspirin (Ecotrin) 81 mg PO DAILY [facility] Last Admin: 06/20/18 08:50 Dose: 81 mg Atorvastatin Calcium (Lipitor) 20 mg PO HS [facility] Last Admin: 06/19/18 21:12 Dose: 20 mg Docusate Sodium (Colace) 100 mg PO BID [facility] Last Admin: 06/20/18 08:50 Dose: 100 mg Furosemide (Lasix) 40 mg IV DAILY [facility] Last Admin: 06/20/18 08:51 Dose: 40 mg Ampicillin Sodium/Sulbactam (Sodium 1.5 gm/ Sodium Chloride) 100 mls @ 100 mls/hr IVPB Q12 [facility]; Protocol Last Admin: 06/20/18 08:55 Dose: 100 mls/hr Lactic Acid (Lac-Hydrin 12% Lotion (225 G)) 1 applic TOP TID [facility] Last Admin: 06/20/18 13:20 Dose: 1 appl Lactulose (Enulose) 10 gm PO DAILY PRN PRN Reason: Constipation Metoprolol Tartrate (Lopressor) 25 mg PO Q12 [facility] Last Admin: 06/20/18 08:52 Dose: 25 mg Pantoprazole Sodium (Protonix Ec Tab) 40 mg PO DAILY [facility] Last Admin: 06/20/18 08:53 Dose: 40 mg Pyridostigmine [place] (Mestinon Tab) 30 mg PO TID [facility] Last Admin: 06/20/18 13:21 Dose: 30 mg Sennosides (Senokot Tab) 8.6 mg PO BID [facility] Last Admin: 06/20/18 08:54 Dose: 8.6 mg Tiotropium [place] (Spiriva) 18 mcg IH DAILY [facility] Last Admin: 06/18/18 09:08 Dose: 18 mcg - Labs Labs: 06/19/18 04:30 06/20/18 06:00 - Respiratory Exam Respiratory Exam: NORMAL BREATHING PATTERN - Cardiovascular Exam Cardiovascular Exam: REGULAR RHYTHM - GI/Abdominal Exam GI & Abdominal Exam: Normal Bowel Sounds Assessment and Plan - Assessment and Plan (Free Text) Assessment: Deconditioning PT Abdominal distention improved Colonic ileus ( recurrent ) + FOBT ?? Eloquis held etiol ?? 2 to L-S surgery Surgery GI pyridostigmine SOB Improved S/P thoracentesis Pleural effusion CHF vs COPD CHF Afib S/P TAVR Diuretics Cardiology Eloquis held COPD COSA Smoker Pulmonary ANTHONY/ CKD Lasix?? Nephrology LLE edema cellulitis ?? ecchymosis?? Improving ID Podiatry IV ABX Lasix Endovascular consult ??? CT scan done no significant findings Hx Hyperkalemia 2 to Bactrim?? Kaexylate given Hold NAMRATA Urine lytes Hx Hypokalemia Hyperkalemia HTN Prediabetes Hx Low back surgery (Severe Spinal Stenosis) Post operative illeus
--- NOTE | 2018-06-20 18:40 | CP.PCM.PN ---
Subjective - Date & Time of Evaluation Date of Evaluation: 06/20/18 Time of Evaluation: 18:38 - Subjective Subjective: Patient w/o complaint. Having large BMs. Objective - Vital Signs/Intake and Output Vital Signs (last 24 hours): Temp Pulse Resp BP Pulse Ox 97.6 F 73 18 106/54 L 97 06/20/18 16:36 06/20/18 16:36 06/20/18 16:36 06/20/18 16:36 06/20/18 16:36 Intake and Output: 06/20/18 06/20/18 06:59 18:59 Intake Total 820 Output Total 600 Balance 220 - Medications Medications: Current Medications Albuterol (Ventolin Hfa 90 Mcg/Actuation (8 G)) 2 puff IH Q8 PRN PRN Reason: Shortness of Breath Albuterol/Ipratropium (Duoneb 3 Mg/0.5 Mg (3 Ml) Ud) 3 ml INH RQID [facility] Last Admin: 06/20/18 15:46 Dose: 3 ml Aspirin (Ecotrin) 81 mg PO DAILY [facility] Last Admin: 06/20/18 08:50 Dose: 81 mg Atorvastatin Calcium (Lipitor) 20 mg PO HS [facility] Last Admin: 06/19/18 21:12 Dose: 20 mg Docusate Sodium (Colace) 100 mg PO BID [facility] Last Admin: 06/20/18 17:17 Dose: 100 mg Furosemide (Lasix) 40 mg IV DAILY [facility] Last Admin: 06/20/18 08:51 Dose: 40 mg Ampicillin Sodium/Sulbactam (Sodium 1.5 gm/ Sodium Chloride) 100 mls @ 100 mls/hr IVPB Q12 [facility]; Protocol Last Admin: 06/20/18 08:55 Dose: 100 mls/hr Lactic Acid (Lac-Hydrin 12% Lotion (225 G)) 1 applic TOP TID [facility] Last Admin: 06/20/18 17:17 Dose: 1 appl Lactulose (Enulose) 10 gm PO DAILY PRN PRN Reason: Constipation Metoprolol Tartrate (Lopressor) 25 mg PO Q12 [facility] Last Admin: 06/20/18 08:52 Dose: 25 mg Pantoprazole Sodium (Protonix Ec Tab) 40 mg PO DAILY [facility] Last Admin: 06/20/18 08:53 Dose: 40 mg Pyridostigmine [place] (Mestinon Tab) 30 mg PO TID [facility] Last Admin: 06/20/18 17:18 Dose: 30 mg Sennosides (Senokot Tab) 8.6 mg PO BID [facility] Last Admin: 06/20/18 17:18 Dose: 8.6 mg Tiotropium [place] (Spiriva) 18 mcg IH DAILY [facility] Last Admin: 06/18/18 09:08 Dose: 18 mcg - Labs Labs: 06/19/18 04:30 06/20/18 06:00 - Head Exam Head Exam: ATRAUMATIC - Eye Exam Eye Exam: Normal appearance - ENT Exam ENT Exam: Normal Exam - Neck Exam Neck Exam: Full ROM - Respiratory Exam Respiratory Exam: Clear to Ausculation Bilateral - Cardiovascular Exam Cardiovascular Exam: REGULAR RHYTHM - GI/Abdominal Exam GI & Abdominal Exam: Distended. absent: Tenderness Assessment and Plan (1) Abdominal distention Assessment & Plan: Less distended than previously. Continue Senna and pyridostigmine Status: Acute
[2018-06-21] MEDS: Albuterol-Ipratrop 3 mg / 0.5 (3 ml) UD INH SCH ×3 (07:38→15:12)
[2018-06-21] MEDS: Pantoprazole 40 mg EC Tab PO SCH (09:33)
[2018-06-21 10:38] LABS: HEMOGLOBIN 10.2 g/dL (12.0-18.0); MEAN CELL VOLUME 94.7 fl (80.0-94.0); MEAN CORPUSCULAR HEMOGLOBIN 30.7 pg (27.0-31.0); MEAN CORPUSCULAR HGB CONC 32.4 g/dL (33.0-37.0); RBC 3.31 Mil/uL (4.40-5.90); RED CELL DISTRIBUTION WIDTH 17.4 % (11.5-14.5); WHITE BLOOD COUNT 6.2 K/uL (4.8-10.8)
[2018-06-21 10:47] LABS: BLOOD UREA NITROGEN 13 mg/dl (9-20); CALCIUM 8.8 mg/dL (8.4-10.2); GFR NON-AFRICAN AMERICAN > 60
--- NOTE | 2018-06-21 10:54 | CP.PCM.PN ---
Subjective - Date & Time of Evaluation Date of Evaluation: 06/21/18 Time of Evaluation: 10:49 - Subjective Subjective: Doing very well on the present regimen. Dependant edema continues to subside. His CXR has cleared up nicely. Some small residual fluid is noted in the right base, and there is still some retrocardiac density bpresent as well. His vital signs have been stable and he remains afebrile. Dependant edema with hyperpigmentation of the distal LEs bilaterally. Breath sounds are diminished bilaterally w/o audible wheezes. Few dry to medium rales in the bases bilaterally. No audible wheezes or bronchial breath sounds. May be discharged from acute medicine from a respiratory standpoint. Continue DuoNeb QID and albuterol PRN. May be changed to Augmentin if okay with ID. Objective - Vital Signs/Intake and Output Vital Signs (last 24 hours): Temp Pulse Resp BP Pulse Ox 97.9 F 82 20 134/63 93 L 06/21/18 08:33 06/21/18 09:32 06/21/18 08:33 06/21/18 09:32 06/21/18 08:33 Intake and Output: 06/20/18 06/21/18 23:59 11:59 Intake Total 820 Output Total 600 Balance 220 - Medications Medications: Current Medications Albuterol (Ventolin Hfa 90 Mcg/Actuation (8 G)) 2 puff IH Q8 PRN PRN Reason: Shortness of Breath Albuterol/Ipratropium (Duoneb 3 Mg/0.5 Mg (3 Ml) Ud) 3 ml INH RQID [facility] Last Admin: 06/21/18 07:38 Dose: 3 ml Aspirin (Ecotrin) 81 mg PO DAILY [facility] Last Admin: 06/21/18 09:31 Dose: 81 mg Atorvastatin Calcium (Lipitor) 20 mg PO HS [facility] Last Admin: 06/20/18 21:13 Dose: 20 mg Docusate Sodium (Colace) 100 mg PO BID [facility] Last Admin: 06/21/18 09:30 Dose: Not Given Furosemide (Lasix) 40 mg IV DAILY [facility] Last Admin: 06/21/18 09:31 Dose: 40 mg Ampicillin Sodium/Sulbactam (Sodium 1.5 gm/ Sodium Chloride) 100 mls @ 100 mls/hr IVPB Q12 [facility]; Protocol Last Admin: 06/21/18 09:34 Dose: 100 mls/hr Lactic Acid (Lac-Hydrin 12% Lotion (225 G)) 1 applic TOP TID [facility] Last Admin: 06/21/18 09:31 Dose: 1 appl Lactulose (Enulose) 10 gm PO DAILY PRN PRN Reason: Constipation Metoprolol Tartrate (Lopressor) 25 mg PO Q12 [facility] Last Admin: 06/21/18 09:32 Dose: 25 mg Pantoprazole Sodium (Protonix Ec Tab) 40 mg PO DAILY [facility] Last Admin: 06/21/18 09:33 Dose: 40 mg Pyridostigmine [place] (Mestinon Tab) 30 mg PO TID [facility] Last Admin: 06/21/18 09:33 Dose: 30 mg Sennosides (Senokot Tab) 8.6 mg PO BID [facility] Last Admin: 06/21/18 09:34 Dose: Not Given Tiotropium [place] (Spiriva) 18 mcg IH DAILY [facility] Last Admin: 06/18/18 09:08 Dose: 18 mcg - Labs Labs: 06/21/18 09:15 06/21/18 09:15 Assessment and Plan (1) COPD (chronic obstructive pulmonary disease) Status: Chronic (2) 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
--- NOTE | 2018-06-21 13:03 | CP.PCM.PCO ---
Assessment/Plan - Assessment/Plan Assessment: pt. sitting up in bed doing well pt. cleared for d/c to TCU today by , , and pt. will need 1 week of iv Unasyn 1.5 gm q12 f/u w/ in TCU
[2018-06-21] MEDS: Potassium Chloride 20 mEq ER Tab PO SCH ×2 (13:11→17:38)
--- NOTE | 2018-06-21 15:01 | CP.PCM.PN ---
Subjective - Date & Time of Evaluation Date of Evaluation: 06/21/18 Time of Evaluation: 15:00 - Subjective Subjective: RENAL no events overnight sob is improved no complaints today o/e: vss, obese male gen: nad on nasal cannula sclera: anicteric heent; perrla op: clear neck: supple no thyromegaly lungs: b/l air entry reduced at bases cv: +S1+s2 no rub abd: + distension +bs no r/g ext: 1+ edema neuro: A+OX3 no focal deficit psych: nml affect/mood. limited insight skin: No rash no ulcer except erythema in legs labs and imaging reviewed Assessment: ARF hypokalemia HTN, COPD CHF s/p TAVR Obesity cellulitis ANTHONY ? due to bactrim plan: renal function continues to improve 40 meq of po k ordered as 2 doses today bp stable continue with lasix sob improved repeat bmp in am Objective - Vital Signs/Intake and Output Vital Signs (last 24 hours): Temp Pulse Resp BP Pulse Ox 98.0 F 83 20 116/58 L 93 L 06/21/18 13:07 06/21/18 13:07 06/21/18 13:07 06/21/18 13:07 06/21/18 13:07 - Medications Medications: Current Medications Albuterol (Ventolin Hfa 90 Mcg/Actuation (8 G)) 2 puff IH Q8 PRN PRN Reason: Shortness of Breath Albuterol/Ipratropium (Duoneb 3 Mg/0.5 Mg (3 Ml) Ud) 3 ml INH RQID [facility] Last Admin: 06/21/18 11:21 Dose: 3 ml Aspirin (Ecotrin) 81 mg PO DAILY [facility] Last Admin: 06/21/18 09:31 Dose: 81 mg Atorvastatin Calcium (Lipitor) 20 mg PO HS [facility] Last Admin: 06/20/18 21:13 Dose: 20 mg Docusate Sodium (Colace) 100 mg PO BID [facility] Last Admin: 06/21/18 09:30 Dose: Not Given Furosemide (Lasix) 40 mg IV DAILY [facility] Last Admin: 06/21/18 09:31 Dose: 40 mg Ampicillin Sodium/Sulbactam (Sodium 1.5 gm/ Sodium Chloride) 100 mls @ 100 mls/hr IVPB Q12 [facility]; Protocol Last Admin: 06/21/18 09:34 Dose: 100 mls/hr Lactic Acid (Lac-Hydrin 12% Lotion (225 G)) 1 applic TOP TID [facility] Last Admin: 06/21/18 13:13 Dose: 1 appl Lactulose (Enulose) 10 gm PO DAILY PRN PRN Reason: Constipation Metoprolol Tartrate (Lopressor) 25 mg PO Q12 [facility] Last Admin: 06/21/18 09:32 Dose: 25 mg Pantoprazole Sodium (Protonix Ec Tab) 40 mg PO DAILY [facility] Last Admin: 06/21/18 09:33 Dose: 40 mg Potassium Chloride (K-Dur 20 Meq Er Tab) 40 meq PO Q6 [facility] Stop: 06/21/18 16:01 Last Admin: 06/21/18 13:11 Dose: 40 meq Pyridostigmine [place] (Mestinon Tab) 30 mg PO TID [facility] Last Admin: 06/21/18 13:12 Dose: 30 mg Sennosides (Senokot Tab) 8.6 mg PO BID [facility] Last Admin: 06/21/18 09:34 Dose: Not Given Tiotropium [place] (Spiriva) 18 mcg IH DAILY [facility] Last Admin: 06/18/18 09:08 Dose: 18 mcg - Labs Labs: 06/21/18 09:15 06/21/18 09:15
--- NOTE | 2018-06-21 16:19 | CP.PCM.PN ---
Subjective - Date & Time of Evaluation Date of Evaluation: 06/21/18 Time of Evaluation: 16:17 - Subjective Subjective: Podiatry progress note: Dr. Alvarado Patient seen and evaluated this AM for b/l LE edema. Patient resting comfortably and in NAD, stating that he is starting to feel better. He denies any new pedal complaints today. Denies any pain to b/l lower extremities. Denies Nausea/vomiting/fever/chest pain. Objective - Vital Signs/Intake and Output Vital Signs (last 24 hours): Temp Pulse Resp BP Pulse Ox 98.0 F 83 20 116/58 L 93 L 06/21/18 13:07 06/21/18 13:07 06/21/18 13:07 06/21/18 13:07 06/21/18 13:07 - Medications Medications: Current Medications Albuterol (Ventolin Hfa 90 Mcg/Actuation (8 G)) 2 puff IH Q8 PRN PRN Reason: Shortness of Breath Albuterol/Ipratropium (Duoneb 3 Mg/0.5 Mg (3 Ml) Ud) 3 ml INH RQID [facility] Last Admin: 06/21/18 15:12 Dose: 3 ml Aspirin (Ecotrin) 81 mg PO DAILY [facility] Last Admin: 06/21/18 09:31 Dose: 81 mg Atorvastatin Calcium (Lipitor) 20 mg PO HS [facility] Last Admin: 06/20/18 21:13 Dose: 20 mg Docusate Sodium (Colace) 100 mg PO BID [facility] Last Admin: 06/21/18 09:30 Dose: Not Given Furosemide (Lasix) 40 mg PO DAILY [facility] Ampicillin Sodium/Sulbactam (Sodium 1.5 gm/ Sodium Chloride) 100 mls @ 100 mls/hr IVPB Q12 [facility]; Protocol Last Admin: 06/21/18 09:34 Dose: 100 mls/hr Lactic Acid (Lac-Hydrin 12% Lotion (225 G)) 1 applic TOP TID [facility] Last Admin: 06/21/18 13:13 Dose: 1 appl Lactulose (Enulose) 10 gm PO DAILY PRN PRN Reason: Constipation Metoprolol Tartrate (Lopressor) 25 mg PO Q12 [facility] Last Admin: 06/21/18 09:32 Dose: 25 mg Pantoprazole Sodium (Protonix Ec Tab) 40 mg PO DAILY [facility] Last Admin: 06/21/18 09:33 Dose: 40 mg Pyridostigmine [place] (Mestinon Tab) 30 mg PO TID [facility] Last Admin: 06/21/18 13:12 Dose: 30 mg Sennosides (Senokot Tab) 8.6 mg PO BID [facility] Last Admin: 06/21/18 09:34 Dose: Not Given Tiotropium [place] (Spiriva) 18 mcg IH DAILY [facility] Last Admin: 06/18/18 09:08 Dose: 18 mcg - Labs Labs: 06/21/18 09:15 06/21/18 09:15 - Constitutional Appears: Non-toxic, No Acute Distress - Head Exam Head Exam: ATRAUMATIC, NORMOCEPHALIC - Extremities Exam Additional comments: B/L LE focused exam: VASC: DP/PT pulses 1/4 palpable, cap refill <3 seconds to all digits, hair growth absent b/l, temp gradient warm to cool, pitting edema noted likely secondary to fluids, improving Neuro: Gross and protective sensation intact Derm: No open lesions or wounds present, no drainage, no purulence, no streaking, erythema resolved Ortho: Mild tenderness upon palpation of b/l LE, no other gross pathology noted - Neurological Exam Neurological Exam: Alert, Awake, Oriented x3 - Psychiatric Exam Psychiatric exam: Normal Affect, Normal Mood Assessment and Plan - Assessment and Plan (Free Text) Assessment: 88M patient seen and evaluated at the bedside for b/l LE edema; resolving Plan: Patient seen and evaluated at the bedside with Dr. Alvarado WBC 6.2, afebrile Blood culture: No growth after 5 days. Continue Physical therapy Continue IV abx per ID Will continue to follow while in house
[2018-06-21 16:35] VITALS: BP 122/65; PULSE 86; RESP 18; TEMP 98.2; O2SAT 96
--- NOTE | 2018-06-21 16:38 | PQF ---
PROVIDER RESPONSE TEXT: Acute Diastolic CHF REVIEWER QUERY TEXT: Acuity Specificity Diastolic CHF is documented in the Medical Record on a query response form. Please specify the acui ty of this condition with terms such as: -- Acute -- Chronic -- Acute and chronic -- Acute on chronic -- Other (please specify in the medical record) Congestive Heart Failure is documented in the Medical Record. Please document the type and acuity (in cludes probable or suspected) versus CHF ruled out? Such as: Type: -- Systolic -- Diastolic -- Combined -- Other, please specify Acuity: -- Acute -- Chronic -- Acute on chronic -- Other, please specify 06/16 ProBNP:[id number] 06/15 CXR: suspicious for acute pulmonary vascular congestion/pulmonary edema.Underlying bilateral per ihilar patchy infiltrates not excluded with atelectasis favored over consolidation left base.Clinical ly correlate further. Cardiac size stable 06/16 Echo: The estimated ejection fraction is 55-60% The left ventricular diastolic function cannot b e assessed due to underlying atrial fibrillation.The left atrium is severely dilated.There is modera te aortic valvular stenosis.Peak aortic velcity is - 3 m/sec and calculated PAT is 1.4 cm2.There is mild tricuspid valve regurgitation noted.RVSP is calculated at 37 mm Hg. The IVC is not visualized. 06/16 Attending progress note includes: :--SOB CHF vs COPD CHF Afib S/P TAVR 06/16 IR: Right pleural effusion, dyspnea Op US guided right thoracentesis 06/16 Cardiology note includes: 06/16 Cardio: /P TAVR ,CHRONIC ATRIAL FIBRILLATION ,COPD ?CHF, HTN, ,HYPERLIPIDEMIA , RECENT CELLULITIS - IV Lasix daily The patient's Clinical Indicators include: ------ Query created by: Jennifer Chanel on 06/21/2018 9:52 AM Electronically signed by: Torrey Branch MD 06/21/2018 4:34 PM
--- NOTE | 2018-06-21 20:31 | CP.PCM.PN ---
Subjective - Date & Time of Evaluation Date of Evaluation: 06/21/18 Time of Evaluation: 22:22 - Subjective Subjective: Above noted Objective - Vital Signs/Intake and Output Vital Signs (last 24 hours): Temp Pulse Resp BP Pulse Ox 98.2 F 86 18 122/65 96 06/21/18 16:34 06/21/18 16:34 06/21/18 16:34 06/21/18 16:34 06/21/18 16:34 - Labs Labs: 06/21/18 09:15 06/21/18 09:15 Assessment and Plan - Assessment and Plan (Free Text) Assessment: Deconditioning PT TCU Abdominal distention improved Colonic ileus ( recurrent ) + FOBT ?? Eloquis held etiol ?? 2 to L-S surgery Surgery GI pyridostigmine SOB Improved S/P thoracentesis Pleural effusion CHF vs COPD CHF Afib S/P TAVR Diuretics Cardiology Eloquis held COPD COSA Smoker Pulmonary ANTHONY/ CKD Lasix?? Nephrology LLE edema cellulitis ?? ecchymosis?? Improving ID Podiatry IV ABX Lasix Endovascular consult ??? CT scan done no significant findings Hx Hyperkalemia 2 to Bactrim?? Kaexylate given Hold NAMRATA Urine lytes Hx Hypokalemia Hyperkalemia HTN Prediabetes Hx Low back surgery (Severe Spinal Stenosis) Post operative illeus
--- NOTE | 2018-06-21 20:55 | CP.PCM.PN ---
Subjective - Date & Time of Evaluation Date of Evaluation: 06/21/18 Time of Evaluation: 14:00 - Subjective Subjective: Continues to have regular bowel movements. Abdominal distention still present Objective - Vital Signs/Intake and Output Vital Signs (last 24 hours): Temp Pulse Resp BP Pulse Ox 98.2 F 86 18 122/65 96 06/21/18 16:34 06/21/18 16:34 06/21/18 16:34 06/21/18 16:34 06/21/18 16:34 - Labs Labs: 06/21/18 09:15 06/21/18 09:15 - Head Exam Head Exam: ATRAUMATIC - Eye Exam Eye Exam: Normal appearance - ENT Exam ENT Exam: Normal Exam - Respiratory Exam Respiratory Exam: Clear to Ausculation Bilateral - Cardiovascular Exam Cardiovascular Exam: +S1, +S2 - GI/Abdominal Exam GI & Abdominal Exam: Distended, Normal Bowel Sounds Assessment and Plan (1) Abdominal distention Assessment & Plan: Abdomen not as firm as it had been. continuing to have regular BMs. continue current treatment. Status: Acute
== END 2018-06-21 18:50 | DRG 291 ==
LOC: H.ER 10:58 → H.ERHOLD 14:29 → H.TEL 18:37
PROVIDERS: ADMIT Family Medicine Geriatric Medicine; ATTEND Family Medicine Geriatric Medicine
PROC: 0W993ZZ Drainage of Right Pleural Cavity, Percutaneous Approach (ICD-10-PCS; principal; 2018-06-16)
DX: I13.0 Hypertensive heart and chronic kidney disease with heart failure and stage 1 through stage 4 chronic kidney disease, or unspecified chronic kidney disease (principal); I50.33 Acute on chronic diastolic (congestive) heart failure; K56.7 Ileus, unspecified; N17.9 Acute kidney failure, unspecified; L03.116 Cellulitis of left lower limb; E87.2 Acidosis; J98.11 Atelectasis; J91.8 Pleural effusion in other conditions classified elsewhere; J44.9 Chronic obstructive pulmonary disease, unspecified; I48.2 Chronic atrial fibrillation; E87.6 Hypokalemia; E78.5 Hyperlipidemia, unspecified; I25.10 Atherosclerotic heart disease of native coronary artery without angina pectoris; E66.9 Obesity, unspecified; Z68.35 Body mass index [BMI] 35.0-35.9, adult; Z95.2 Presence of prosthetic heart valve; R73.03 Prediabetes; G47.33 Obstructive sleep apnea (adult) (pediatric); N18.1 Chronic kidney disease, stage 1; E78.00 Pure hypercholesterolemia, unspecified; Z79.01 Long term (current) use of anticoagulants; Z79.82 Long term (current) use of aspirin; F17.200 Nicotine dependence, unspecified, uncomplicated

== ENCOUNTER 2018-06-21 14:17 | Inpatient (IN) | payer OTHER ==
[2018-06-21 18:58] VITALS: BMI 34.4
[2018-06-21] MEDS ORDERED: Patient's Own Med (Lactulose 10 GM) PO PRN (22:45)
[2018-06-21] MEDS ORDERED: Patient's Own Med (Albuterol Sulfate 2 PUFF) IH PRN (22:45)
[2018-06-21] MEDS ORDERED: Albuterol HFA 90 mcg/actuation (8 g) INH PRN (23:02)
[2018-06-21] MEDS ORDERED: Lactulose 10 gm/15 ml Syrup PO PRN (23:13)
[2018-06-22 06:38] LABS: BLOOD UREA NITROGEN 12 mg/dl (9-20); CALCIUM 8.5 mg/dL (8.4-10.2); GFR NON-AFRICAN AMERICAN > 60
[2018-06-22] MEDS: Albuterol-Ipratrop 3 mg / 0.5 (3 ml) UD INH SCH ×4 (07:34→19:23)
[2018-06-22] MEDS: Pantoprazole 40 mg EC Tab PO SCH (08:58)
--- NOTE | 2018-06-22 10:29 | CP.PCM.PN ---
Subjective - Date & Time of Evaluation Date of Evaluation: 06/22/18 Time of Evaluation: 10:27 - Subjective Subjective: Podiatry progress note: Dr. Alvarado Patient seen and evaluated this AM, with attending, Dr. Alvarado for b/l LE edema. Patient resting comfortably and in NAD, stating that he is starting to feel better. He states that he will participate in physical therapy today. Denies any pain to b/l lower extremities. Denies Nausea/vomiting/fever/chest pain. Objective - Vital Signs/Intake and Output Vital Signs (last 24 hours): Temp Pulse Resp BP Pulse Ox 97.5 F L 85 18 122/75 98 06/22/18 08:23 06/22/18 09:53 06/22/18 08:23 06/22/18 08:58 06/22/18 09:53 - Medications Medications: Current Medications Albuterol (Ventolin Hfa 90 Mcg/Actuation (8 G)) 2 puff INH RQ8 PRN PRN Reason: Shortness of Breath Albuterol/Ipratropium (Duoneb 3 Mg/0.5 Mg (3 Ml) Ud) 3 ml INH RQID [facility] Last Admin: 06/22/18 07:34 Dose: 3 ml Aspirin (Ecotrin) 81 mg PO DAILY [facility] Last Admin: 06/22/18 08:57 Dose: 81 mg Atorvastatin Calcium (Lipitor) 20 mg PO HS [facility] Last Admin: 06/21/18 23:35 Dose: 20 mg Docusate Sodium (Colace) 100 mg PO BID [facility] Last Admin: 06/22/18 08:57 Dose: 100 mg Furosemide (Lasix) 40 mg IVP DAILY [facility] Last Admin: 06/22/18 08:58 Dose: 40 mg Ampicillin Sodium/Sulbactam (Sodium 1.5 gm/ Sodium Chloride) 100 mls @ 100 mls/hr IVPB Q12@0100,1300 [facility] Last Admin: 06/22/18 01:52 Dose: 100 mls/hr Lactic Acid (Lac-Hydrin 12% Lotion (225 G)) 1 applic TOP TID [facility] Last Admin: 06/22/18 08:59 Dose: 1 unit Lactulose (Enulose) 10 gm PO DAILY PRN PRN Reason: Constipation Metoprolol Tartrate (Lopressor) 25 mg PO Q12 [facility] Last Admin: 06/22/18 08:57 Dose: 25 mg Pantoprazole Sodium (Protonix Ec Tab) 40 mg PO DAILY [facility] Last Admin: 06/22/18 08:58 Dose: 40 mg Pyridostigmine [place] (Mestinon Tab) 30 mg PO TID [facility] Last Admin: 06/22/18 08:58 Dose: 30 mg Sennosides (Senokot Tab) 8.6 mg PO BID [facility] Last Admin: 06/22/18 08:57 Dose: 8.6 mg - Labs Labs: 06/22/18 06:16 - Constitutional Appears: Non-toxic, No Acute Distress - Head Exam Head Exam: ATRAUMATIC, NORMOCEPHALIC - Extremities Exam Additional comments: B/L LE focused exam: VASC: DP/PT pulses 1/4 palpable, cap refill <3 seconds to all digits, hair growth absent b/l, temp gradient warm to cool, pitting edema noted likely secondary to fluids, improving Neuro: Gross and protective sensation intact Derm: No open lesions or wounds present, no drainage, no purulence, no streaking, erythema resolved Ortho: Mild tenderness upon palpation of b/l LE, no other gross pathology noted - Neurological Exam Neurological Exam: Alert, Awake, Oriented x3 - Psychiatric Exam Psychiatric exam: Normal Affect, Normal Mood Assessment and Plan - Assessment and Plan (Free Text) Assessment: 88M patient seen and evaluated at the bedside for b/l LE edema; resolving, erythema, resolved Plan: Patient seen and evaluated at the bedside with Dr. Alvarado Patient transferred to TCU Blood culture: No growth after 5 days. Continue Physical therapy Continue IV abx per ID Light compression to b/l lower extremites for edema control to prevent skin breakdown Will continue to follow while in house
--- NOTE | 2018-06-22 20:48 | CP.PCM.HP ---
History of Present Illness - History of Present Illness History of Present Illness: 88 yo admitted for IV ABX Present on Admission - Present on Admission Any Indicators Present on Admission: No Past Patient History - Infectious Disease Hx of Infectious Diseases: None - Past Medical History & Family History Past Medical History?: Yes - Past Social History Smoking Status: Former Smoker - CARDIAC Hx Cardiac Disorders: Yes Hx Congestive Heart Failure: Yes - PULMONARY Hx Chronic Obstructive Pulmonary Disease (COPD): Yes - NEUROLOGICAL Hx Neurological Disorder: No - HEENT Hx HEENT Problems: No - RENAL Hx Chronic Kidney Disease: No - ENDOCRINE/METABOLIC Hx Endocrine Disorders: No - HEMATOLOGICAL/ONCOLOGICAL Hx AIDS: No Hx Human Immunodeficiency Virus (HIV): No - INTEGUMENTARY Other/Comment: skin lesion recently removed from left infra-ocular area - MUSCULOSKELETAL/RHEUMATOLOGICAL Hx Falls: No Hx Gout: Yes Hx Unsteady Gait: Yes (ambulates with cane) - GASTROINTESTINAL Hx Gastrointestinal Disorders: No Hx Diarrhea: Yes Other/Comment: ileus - GENITOURINARY/GYNECOLOGICAL Hx Genitourinary Disorders: No - PSYCHIATRIC Hx Psychophysiologic Disorder: No Hx Substance Use: No - SURGICAL HISTORY Hx Valve Replacement: Yes (TAVR) Other/Comment: Laminectomy L3-L5 05/15/2017 - ANESTHESIA Hx Anesthesia: Yes Hx Anesthesia Reactions: No Hx Malignant Hyperthermia: No Meds Allergies/Adverse Reactions: Allergies Allergy/AdvReac Type Severity Reaction Status Date / Time No Known Allergies Allergy Verified 06/21/18 18:57 Results - Vital Signs Recent Vital Signs: Last Vital Signs Temp 98.2 F 06/22/18 20:16 Pulse 83 06/22/18 20:16 Resp 20 06/22/18 20:16 BP 111/63 06/22/18 20:16 Pulse Ox 95 06/22/18 20:16 - Labs Result Diagrams: 06/22/18 06:16 Labs: Laboratory Results - last 24 hr 06/22/18 06:16 Sodium 142 Potassium 3.1 L Chloride 104 Carbon Dioxide 33 H Anion Gap 8 L BUN 12 Creatinine 0.8 Est GFR ( Amer) > 60 Est GFR (Non-Af Amer) > 60 Random Glucose 107 Calcium 8.5 Assessment & Plan - Assessment and Plan (Free Text) Assessment: Deconditioning PT TCU Abdominal distention improved Colonic ileus ( recurrent ) + FOBT ?? Eloquis held etiol ?? 2 to L-S surgery Surgery GI pyridostigmine SOB Improved S/P thoracentesis Pleural effusion CHF vs COPD CHF Afib S/P TAVR Diuretics Cardiology Eloquis held COPD COSA Smoker Pulmonary ANTHONY/ CKD Lasix?? Nephrology LLE edema cellulitis ?? ecchymosis?? Improving ID Podiatry IV ABX Lasix Endovascular consult ??? CT scan done no significant findings Hx Hyperkalemia 2 to Bactrim?? Kaexylate given Hold NAMRATA Urine lytes Hx Hypokalemia Hyperkalemia HTN Prediabetes Hx Low back surgery (Severe Spinal Stenosis) Post operative illeus - Date & Time Date: 06/22/18 Time:
--- NOTE | 2018-06-22 21:20 | CP.PCM.PN ---
Subjective - Date & Time of Evaluation Date of Evaluation: 06/22/18 Time of Evaluation: 21:19 - Subjective Subjective: RENAL no events overnight sob is improved no complaints today o/e: vss, obese male gen: nad on nasal cannula sclera: anicteric heent; perrla op: clear neck: supple no thyromegaly lungs: b/l air entry reduced at bases cv: +S1+s2 no rub abd: + distension +bs no r/g ext: 1+ edema neuro: A+OX3 no focal deficit psych: nml affect/mood. limited insight skin: No rash labs and imaging reviewed Assessment: ARF sec to bactvrim/chf hypokalemia HTN, COPD CHF s/p TAVR Obesity cellulitis plan: renal function continues to improve and normal hypokalemia, improved nonitor and replace continue with lasix as needed will sign off please call uf any qs Objective - Vital Signs/Intake and Output Vital Signs (last 24 hours): Temp Pulse Resp BP Pulse Ox 98.2 F 83 20 111/63 95 06/22/18 20:16 06/22/18 20:16 06/22/18 20:16 06/22/18 20:16 06/22/18 20:16 - Medications Medications: Current Medications Albuterol (Ventolin Hfa 90 Mcg/Actuation (8 G)) 2 puff INH RQ8 PRN PRN Reason: Shortness of Breath Albuterol/Ipratropium (Duoneb 3 Mg/0.5 Mg (3 Ml) Ud) 3 ml INH RQID [facility] Last Admin: 06/22/18 19:23 Dose: 3 ml Aspirin (Ecotrin) 81 mg PO DAILY [facility] Last Admin: 06/22/18 08:57 Dose: 81 mg Atorvastatin Calcium (Lipitor) 20 mg PO HS [facility] Last Admin: 06/21/18 23:35 Dose: 20 mg Docusate Sodium (Colace) 100 mg PO BID [facility] Last Admin: 06/22/18 16:13 Dose: 100 mg Furosemide (Lasix) 40 mg IVP DAILY [facility] Last Admin: 06/22/18 08:58 Dose: 40 mg Ampicillin Sodium/Sulbactam (Sodium 1.5 gm/ Sodium Chloride) 100 mls @ 100 mls/hr IVPB Q12@0100,1300 [facility] Last Admin: 06/22/18 16:07 Dose: 100 mls/hr Lactic Acid (Lac-Hydrin 12% Lotion (225 G)) 1 applic TOP TID [facility] Last Admin: 06/22/18 16:13 Dose: 1 unit Lactulose (Enulose) 10 gm PO DAILY PRN PRN Reason: Constipation Metoprolol Tartrate (Lopressor) 25 mg PO Q12 [facility] Last Admin: 06/22/18 08:57 Dose: 25 mg Pantoprazole Sodium (Protonix Ec Tab) 40 mg PO DAILY [facility] Last Admin: 06/22/18 08:58 Dose: 40 mg Pyridostigmine [place] (Mestinon Tab) 30 mg PO TID [facility] Last Admin: 06/22/18 16:14 Dose: 30 mg Sennosides (Senokot Tab) 8.6 mg PO BID [facility] Last Admin: 06/22/18 16:15 Dose: 8.6 mg - Labs Labs: 06/22/18 06:16
--- NOTE | 2018-06-23 01:00 | CP.PCM.PN ---
Subjective - Date & Time of Evaluation Date of Evaluation: 06/22/18 Time of Evaluation: 09:00 - Subjective Subjective: Patient w/o complaint and having regular BMs Objective - Vital Signs/Intake and Output Vital Signs (last 24 hours): Temp Pulse Resp BP Pulse Ox 98.2 F 79 20 111/63 95 06/22/18 20:16 06/22/18 22:17 06/22/18 20:16 06/22/18 20:16 06/22/18 20:16 - Medications Medications: Current Medications Albuterol (Ventolin Hfa 90 Mcg/Actuation (8 G)) 2 puff INH RQ8 PRN PRN Reason: Shortness of Breath Albuterol/Ipratropium (Duoneb 3 Mg/0.5 Mg (3 Ml) Ud) 3 ml INH RQID [facility] Last Admin: 06/22/18 19:23 Dose: 3 ml Aspirin (Ecotrin) 81 mg PO DAILY [facility] Last Admin: 06/22/18 08:57 Dose: 81 mg Atorvastatin Calcium (Lipitor) 20 mg PO HS [facility] Last Admin: 06/22/18 22:17 Dose: 20 mg Docusate Sodium (Colace) 100 mg PO BID [facility] Last Admin: 06/22/18 16:13 Dose: 100 mg Furosemide (Lasix) 40 mg IVP DAILY [facility] Last Admin: 06/22/18 08:58 Dose: 40 mg Ampicillin Sodium/Sulbactam (Sodium 1.5 gm/ Sodium Chloride) 100 mls @ 100 mls/hr IVPB Q12@0100,1300 [facility] Last Admin: 06/22/18 16:07 Dose: 100 mls/hr Lactic Acid (Lac-Hydrin 12% Lotion (225 G)) 1 applic TOP TID [facility] Last Admin: 06/22/18 16:13 Dose: 1 unit Lactulose (Enulose) 10 gm PO DAILY PRN PRN Reason: Constipation Metoprolol Tartrate (Lopressor) 25 mg PO Q12 [facility] Last Admin: 06/22/18 22:17 Dose: 25 mg Pantoprazole Sodium (Protonix Ec Tab) 40 mg PO DAILY [facility] Last Admin: 06/22/18 08:58 Dose: 40 mg Pyridostigmine [place] (Mestinon Tab) 30 mg PO TID [facility] Last Admin: 06/22/18 16:14 Dose: 30 mg Sennosides (Senokot Tab) 8.6 mg PO BID [facility] Last Admin: 06/22/18 16:15 Dose: 8.6 mg - Labs Labs: 06/22/18 06:16 - Head Exam Head Exam: ATRAUMATIC - Eye Exam Eye Exam: Normal appearance - Neck Exam Neck Exam: Normal Inspection - Respiratory Exam Respiratory Exam: Clear to Ausculation Bilateral - Cardiovascular Exam Cardiovascular Exam: REGULAR RHYTHM - GI/Abdominal Exam GI & Abdominal Exam: Distended Assessment and Plan (1) Abdominal distention Assessment & Plan: Having regular BMs and Hgb has been stable.On pantoprazole. May restart anticoagulation for prior heart valve procedure. Status: Acute
[2018-06-23] MEDS: Albuterol-Ipratrop 3 mg / 0.5 (3 ml) UD INH SCH ×4 (08:07→19:59)
[2018-06-23] MEDS: Pantoprazole 40 mg EC Tab PO SCH (09:09)
--- NOTE | 2018-06-23 13:34 | CP.PCM.PN ---
Subjective - Date & Time of Evaluation Date of Evaluation: 06/23/18 Time of Evaluation: 13:34 - Subjective Subjective: Patient sitting up at the bedside Awake and conscious Bilateral leg edema noted Vital signs noted to be stable Objective - Vital Signs/Intake and Output Vital Signs (last 24 hours): Temp Pulse Resp BP Pulse Ox 98.2 F 84 18 120/70 96 06/23/18 08:22 06/23/18 09:10 06/23/18 08:22 06/23/18 09:10 06/23/18 08:22 - Medications Medications: Current Medications Albuterol (Ventolin Hfa 90 Mcg/Actuation (8 G)) 2 puff INH RQ8 PRN PRN Reason: Shortness of Breath Albuterol/Ipratropium (Duoneb 3 Mg/0.5 Mg (3 Ml) Ud) 3 ml INH RQID [facility] Last Admin: 06/23/18 11:47 Dose: Not Given Aspirin (Ecotrin) 81 mg PO DAILY [facility] Last Admin: 06/23/18 09:09 Dose: 81 mg Atorvastatin Calcium (Lipitor) 20 mg PO HS [facility] Last Admin: 06/22/18 22:17 Dose: 20 mg Docusate Sodium (Colace) 100 mg PO BID [facility] Last Admin: 06/23/18 09:09 Dose: 100 mg Furosemide (Lasix) 40 mg IVP DAILY [facility] Last Admin: 06/23/18 09:10 Dose: 40 mg Ampicillin Sodium/Sulbactam (Sodium 1.5 gm/ Sodium Chloride) 100 mls @ 100 mls/hr IVPB Q12@0100,1300 [facility] Last Admin: 06/23/18 12:29 Dose: 100 mls/hr Lactic Acid (Lac-Hydrin 12% Lotion (225 G)) 1 applic TOP TID [facility] Last Admin: 06/23/18 12:31 Dose: 1 unit Lactulose (Enulose) 10 gm PO DAILY PRN PRN Reason: Constipation Metoprolol Tartrate (Lopressor) 25 mg PO Q12 [facility] Last Admin: 06/23/18 09:10 Dose: 25 mg Pantoprazole Sodium (Protonix Ec Tab) 40 mg PO DAILY [facility] Last Admin: 06/23/18 09:09 Dose: 40 mg Pyridostigmine [place] (Mestinon Tab) 30 mg PO TID [facility] Last Admin: 06/23/18 12:30 Dose: 30 mg Sennosides (Senokot Tab) 8.6 mg PO BID [facility] Last Admin: 06/23/18 09:09 Dose: 8.6 mg - Labs Labs: 06/22/18 06:16 - Constitutional Appears: No Acute Distress - Eye Exam Eye Exam: Conjunctival injection - ENT Exam ENT Exam: Mucous Membranes Moist - Neck Exam Neck Exam: absent: Lymphadenopathy - Respiratory Exam Respiratory Exam: NORMAL BREATHING PATTERN. absent: Rhonchi - Cardiovascular Exam Cardiovascular Exam: absent: Gallop, JVD, Rubs - GI/Abdominal Exam GI & Abdominal Exam: Distended, Soft - Extremities Exam Extremities Exam: absent: Calf Tenderness - Back Exam Back Exam: absent: CVA tenderness (L), CVA tenderness (R) - Neurological Exam Neurological Exam: Alert - Skin Skin Exam: absent: Cyanosis Assessment and Plan - Assessment and Plan (Free Text) Assessment: ARF sec to bactvrim/chf hypokalemia HTN, COPD CHF s/p TAVR Obesity cellulitis plan: renal function continues to improve and normal hypokalemia, improved nonitor and replace continue with lasix
[2018-06-23] MEDS ORDERED: Potassium Chloride 20 mEq ER Tab PO ONE (16:51)
--- NOTE | 2018-06-23 18:03 | CP.PCM.PN ---
Subjective - Date & Time of Evaluation Date of Evaluation: 06/23/18 Time of Evaluation: 22:22 - Subjective Subjective: Doing well Improved Objective - Vital Signs/Intake and Output Vital Signs (last 24 hours): Temp Pulse Resp BP Pulse Ox 98.2 F 63 20 117/61 94 L 06/23/18 17:03 06/23/18 17:03 06/23/18 17:03 06/23/18 17:03 06/23/18 17:03 - Medications Medications: Current Medications Albuterol (Ventolin Hfa 90 Mcg/Actuation (8 G)) 2 puff INH RQ8 PRN PRN Reason: Shortness of Breath Albuterol/Ipratropium (Duoneb 3 Mg/0.5 Mg (3 Ml) Ud) 3 ml INH RQID [facility] Last Admin: 06/23/18 11:47 Dose: Not Given Aspirin (Ecotrin) 81 mg PO DAILY [facility] Last Admin: 06/23/18 09:09 Dose: 81 mg Atorvastatin Calcium (Lipitor) 20 mg PO HS [facility] Last Admin: 06/22/18 22:17 Dose: 20 mg Docusate Sodium (Colace) 100 mg PO BID [facility] Last Admin: 06/23/18 17:34 Dose: 100 mg Furosemide (Lasix) 20 mg PO DAILY [facility] Ampicillin Sodium/Sulbactam (Sodium 1.5 gm/ Sodium Chloride) 100 mls @ 100 mls/hr IVPB Q12@0100,1300 [facility] Last Admin: 06/23/18 12:29 Dose: 100 mls/hr Lactic Acid (Lac-Hydrin 12% Lotion (225 G)) 1 applic TOP TID [facility] Last Admin: 06/23/18 17:36 Dose: 1 unit Lactulose (Enulose) 10 gm PO DAILY PRN PRN Reason: Constipation Metoprolol Tartrate (Lopressor) 25 mg PO Q12 [facility] Last Admin: 06/23/18 09:10 Dose: 25 mg Pantoprazole Sodium (Protonix Ec Tab) 40 mg PO DAILY [facility] Last Admin: 06/23/18 09:09 Dose: 40 mg Pyridostigmine [place] (Mestinon Tab) 30 mg PO TID [facility] Last Admin: 06/23/18 17:34 Dose: 30 mg Sennosides (Senokot Tab) 8.6 mg PO BID [facility] Last Admin: 06/23/18 17:35 Dose: 8.6 mg - Labs Labs: 06/22/18 06:16 Assessment and Plan - Assessment and Plan (Free Text) Assessment: Deconditioning PT TCU Abdominal distention improved Colonic ileus ( recurrent ) + FOBT ?? Eloquis held etiol ?? 2 to L-S surgery Surgery GI pyridostigmine SOB Improved S/P thoracentesis Pleural effusion CHF vs COPD CHF Afib S/P TAVR Diuretics Cardiology Eloquis held COPD COSA Smoker Pulmonary ANTHONY/ CKD Lasix?? Nephrology LLE edema cellulitis ?? ecchymosis?? Improving ID Podiatry IV ABX Lasix Endovascular consult ??? CT scan done no significant findings Hx Hyperkalemia 2 to Bactrim?? Kaexylate given Hold NAMRATA Urine lytes Hx Hypokalemia Hyperkalemia HTN Prediabetes Hx Low back surgery (Severe Spinal Stenosis) Post operative illeus - Date & Time Date: 06/22/18 Time: 22:22
--- NOTE | 2018-06-23 18:31 | CP.PCM.PN ---
Subjective - Date & Time of Evaluation Date of Evaluation: 06/23/18 Time of Evaluation: 18:29 - Subjective Subjective: No new complaints. Remains distended. Objective - Vital Signs/Intake and Output Vital Signs (last 24 hours): Temp Pulse Resp BP Pulse Ox 98.2 F 63 20 117/61 94 L 06/23/18 17:03 06/23/18 17:03 06/23/18 17:03 06/23/18 17:03 06/23/18 17:03 - Medications Medications: Current Medications Albuterol (Ventolin Hfa 90 Mcg/Actuation (8 G)) 2 puff INH RQ8 PRN PRN Reason: Shortness of Breath Albuterol/Ipratropium (Duoneb 3 Mg/0.5 Mg (3 Ml) Ud) 3 ml INH RQID [facility] Last Admin: 06/23/18 11:47 Dose: Not Given Aspirin (Ecotrin) 81 mg PO DAILY [facility] Last Admin: 06/23/18 09:09 Dose: 81 mg Atorvastatin Calcium (Lipitor) 20 mg PO HS [facility] Last Admin: 06/22/18 22:17 Dose: 20 mg Docusate Sodium (Colace) 100 mg PO BID [facility] Last Admin: 06/23/18 17:34 Dose: 100 mg Furosemide (Lasix) 20 mg PO DAILY [facility] Ampicillin Sodium/Sulbactam (Sodium 1.5 gm/ Sodium Chloride) 100 mls @ 100 mls/hr IVPB Q12@0100,1300 [facility] Last Admin: 06/23/18 12:29 Dose: 100 mls/hr Lactic Acid (Lac-Hydrin 12% Lotion (225 G)) 1 applic TOP TID [facility] Last Admin: 06/23/18 17:36 Dose: 1 unit Lactulose (Enulose) 10 gm PO DAILY PRN PRN Reason: Constipation Metoprolol Tartrate (Lopressor) 25 mg PO Q12 [facility] Last Admin: 06/23/18 09:10 Dose: 25 mg Pantoprazole Sodium (Protonix Ec Tab) 40 mg PO DAILY [facility] Last Admin: 06/23/18 09:09 Dose: 40 mg Pyridostigmine [place] (Mestinon Tab) 30 mg PO TID [facility] Last Admin: 06/23/18 17:34 Dose: 30 mg Sennosides (Senokot Tab) 8.6 mg PO BID [facility] Last Admin: 06/23/18 17:35 Dose: 8.6 mg - Labs Labs: 06/22/18 06:16 - Head Exam Head Exam: ATRAUMATIC - Eye Exam Eye Exam: Normal appearance - ENT Exam ENT Exam: Normal Exam - Neck Exam Neck Exam: Full ROM - Respiratory Exam Respiratory Exam: Clear to Ausculation Bilateral - Cardiovascular Exam Cardiovascular Exam: REGULAR RHYTHM - GI/Abdominal Exam GI & Abdominal Exam: Distended, Soft, Normal Bowel Sounds Assessment and Plan (1) Abdominal distention Assessment & Plan: KUB similar to past images with massive distention. Will try higher dose of pyridostigmine Status: Acute
[2018-06-24 06:49] LABS: BLOOD UREA NITROGEN 10 mg/dl (9-20); CALCIUM 7.8 mg/dL (8.4-10.2); GFR NON-AFRICAN AMERICAN > 60
[2018-06-24] MEDS: Albuterol-Ipratrop 3 mg / 0.5 (3 ml) UD INH SCH ×4 (07:55→19:14)
[2018-06-24] MEDS: Pantoprazole 40 mg EC Tab PO SCH (09:24)
--- NOTE | 2018-06-24 09:50 | RAD ---
Date of service: 06/23/2018 HISTORY: Abdominal distention. COMPARISON: Abdomen radiographs 06/11/[address] without contrast 06/15/2018. TECHNIQUE: 1 view obtained. FINDINGS: BOWEL: There is a mild improvement in gaseous distension of apparent large-bowel loops centered at the at the central and upper abdomen again likely reflecting ileus pattern but now somewhat improved. Largest dilated segment measures approximately 8.7 cm compared to 10 cm previously. No prominent free intra peritoneal gas collection is identified. Phlebolith like calcifications are identified at the inferior right pelvis soft tissues. BONES: Degenerative changes seen at the lumbosacral spine and bilateral hip joints as well as moderate degenerative changes at the bilateral sacroiliac joints. OTHER FINDINGS: None. IMPRESSION: Finishing apparent large bowel ileus with significant distention remaining the mid and upper abdomen primarily.
--- NOTE | 2018-06-24 10:33 | CP.PCM.PN ---
Subjective - Date & Time of Evaluation Date of Evaluation: 06/24/18 Time of Evaluation: 10:32 - Subjective Subjective: Patient awake and conscious not in acute distress. Vital signs stable Objective - Vital Signs/Intake and Output Vital Signs (last 24 hours): Temp Pulse Resp BP Pulse Ox 97.7 F 84 18 117/67 93 L 06/24/18 07:38 06/24/18 09:23 06/24/18 07:38 06/24/18 09:23 06/24/18 07:38 - Medications Medications: Current Medications Albuterol (Ventolin Hfa 90 Mcg/Actuation (8 G)) 2 puff INH RQ8 PRN PRN Reason: Shortness of Breath Last Admin: 06/24/18 09:17 Dose: 2 puff Albuterol/Ipratropium (Duoneb 3 Mg/0.5 Mg (3 Ml) Ud) 3 ml INH RQID [facility] Last Admin: 06/24/18 07:55 Dose: 3 ml Aspirin (Ecotrin) 81 mg PO DAILY [facility] Last Admin: 06/24/18 09:22 Dose: 81 mg Atorvastatin Calcium (Lipitor) 20 mg PO HS [facility] Last Admin: 06/23/18 22:44 Dose: 20 mg Docusate Sodium (Colace) 100 mg PO BID [facility] Last Admin: 06/24/18 09:16 Dose: 100 mg Furosemide (Lasix) 20 mg PO DAILY [facility] Last Admin: 06/24/18 09:22 Dose: 20 mg Ampicillin Sodium/Sulbactam (Sodium 1.5 gm/ Sodium Chloride) 100 mls @ 100 mls/hr IVPB Q12@0100,1300 [facility] Last Admin: 06/24/18 01:52 Dose: 100 mls/hr Lactic Acid (Lac-Hydrin 12% Lotion (225 G)) 1 applic TOP TID [facility] Last Admin: 06/23/18 17:36 Dose: 1 unit Lactulose (Enulose) 10 gm PO DAILY PRN PRN Reason: Constipation Metoprolol Tartrate (Lopressor) 25 mg PO Q12 [facility] Last Admin: 06/24/18 09:23 Dose: 25 mg Pantoprazole Sodium (Protonix Ec Tab) 40 mg PO DAILY [facility] Last Admin: 06/24/18 09:24 Dose: 40 mg Potassium Chloride (K-Dur 20 Meq Er Tab) 20 meq PO BID [facility] Pyridostigmine [place] (Mestinon Tab) 30 mg PO TID [facility] Last Admin: 06/24/18 09:23 Dose: 30 mg Sennosides (Senokot Tab) 8.6 mg PO BID [facility] Last Admin: 06/24/18 09:24 Dose: 8.6 mg - Labs Labs: 06/24/18 05:50 - Constitutional Appears: No Acute Distress - Eye Exam Eye Exam: Conjunctival injection - ENT Exam ENT Exam: Mucous Membranes Moist - Neck Exam Neck Exam: absent: Lymphadenopathy - Respiratory Exam Respiratory Exam: NORMAL BREATHING PATTERN. absent: Chest Wall Tenderness - Cardiovascular Exam Cardiovascular Exam: absent: Gallop, JVD - GI/Abdominal Exam GI & Abdominal Exam: Distended, Soft, Normal Bowel Sounds - Extremities Exam Extremities Exam: Pedal Edema. absent: Calf Tenderness - Back Exam Back Exam: absent: CVA tenderness (L), CVA tenderness (R) - Neurological Exam Neurological Exam: Alert - Psychiatric Exam Psychiatric exam: Normal Affect - Skin Skin Exam: absent: Cyanosis Assessment and Plan - Assessment and Plan (Free Text) Assessment: ARF sec to bactvrim/chf hypokalemia HTN, COPD CHF s/p TAVR Obesity cellulitis Bilateral leg edema plan: renal function continues to improve and normal hypokalemia, nonitor and replace continue with lasix Stat serum magnesium rule out hypomagnesemia
[2018-06-24] MEDS: Potassium Chloride 20 mEq ER Tab PO SCH ×2 (10:45→20:40)
--- NOTE | 2018-06-24 12:09 | CP.PCM.CON ---
History of Present Illness - History of Present Illness History of Present Illness: This 88-year-old female is well-known to me from previous hospital admissions. He does have past history of chronic obstructive pulmonary disease as well as pulmonary hypertension and congestive cardiac failure. He was admitted to the hospital because of increasing edema of the lower extremities associated with erythema and increased warmth. There was also noted to be some pleural effusion. He was treated with antibiotics for cellulitis and was transferred to transitional care unit. He developed abdominal distention and increasing pedal edema as well as increased pleural effusion and was transferred back to acute medicine where he underwent a repeat thoracentesis and further medical management for his GI problems. He did well on this regimen and was discharged back to transitional care. Past Patient History - Infectious Disease Hx of Infectious Diseases: None - Past Medical History & Family History Past Medical History?: Yes - Past Social History Smoking Status: Former Smoker - CARDIAC Hx Cardiac Disorders: Yes Hx Congestive Heart Failure: Yes - PULMONARY Hx Chronic Obstructive Pulmonary Disease (COPD): Yes - NEUROLOGICAL Hx Neurological Disorder: No - HEENT Hx HEENT Problems: No - RENAL Hx Chronic Kidney Disease: No - ENDOCRINE/METABOLIC Hx Endocrine Disorders: No - HEMATOLOGICAL/ONCOLOGICAL Hx AIDS: No Hx Human Immunodeficiency Virus (HIV): No - INTEGUMENTARY Other/Comment: skin lesion recently removed from left infra-ocular area - MUSCULOSKELETAL/RHEUMATOLOGICAL Hx Falls: No Hx Gout: Yes Hx Unsteady Gait: Yes (ambulates with cane) - GASTROINTESTINAL Hx Gastrointestinal Disorders: No Hx Diarrhea: Yes Other/Comment: ileus - GENITOURINARY/GYNECOLOGICAL Hx Genitourinary Disorders: No - PSYCHIATRIC Hx Psychophysiologic Disorder: No Hx Substance Use: No - SURGICAL HISTORY Hx Valve Replacement: Yes (TAVR) Other/Comment: Laminectomy L3-L5 05/15/2017 - ANESTHESIA Hx Anesthesia: Yes Hx Anesthesia Reactions: No Hx Malignant Hyperthermia: No Meds Allergies/Adverse Reactions: Allergies Allergy/AdvReac Type Severity Reaction Status Date / Time No Known Allergies Allergy Verified 06/21/18 18:57 - Medications Medications: Current Medications Albuterol (Ventolin Hfa 90 Mcg/Actuation (8 G)) 2 puff INH RQ8 PRN PRN Reason: Shortness of Breath Last Admin: 06/24/18 09:17 Dose: 2 puff Albuterol/Ipratropium (Duoneb 3 Mg/0.5 Mg (3 Ml) Ud) 3 ml INH RQID [facility] Last Admin: 06/24/18 11:08 Dose: Not Given Aspirin (Ecotrin) 81 mg PO DAILY [facility] Last Admin: 06/24/18 09:22 Dose: 81 mg Atorvastatin Calcium (Lipitor) 20 mg PO HS [facility] Last Admin: 06/23/18 22:44 Dose: 20 mg Docusate Sodium (Colace) 100 mg PO BID [facility] Last Admin: 06/24/18 09:16 Dose: 100 mg Furosemide (Lasix) 20 mg PO DAILY [facility] Last Admin: 06/24/18 09:22 Dose: 20 mg Ampicillin Sodium/Sulbactam (Sodium 1.5 gm/ Sodium Chloride) 100 mls @ 100 mls/hr IVPB Q12@0100,1300 [facility] Last Admin: 06/24/18 01:52 Dose: 100 mls/hr Lactic Acid (Lac-Hydrin 12% Lotion (225 G)) 1 applic TOP TID [facility] Last Admin: 06/23/18 17:36 Dose: 1 unit Lactulose (Enulose) 10 gm PO DAILY PRN PRN Reason: Constipation Metoprolol Tartrate (Lopressor) 25 mg PO Q12 [facility] Last Admin: 06/24/18 09:23 Dose: 25 mg Pantoprazole Sodium (Protonix Ec Tab) 40 mg PO DAILY [facility] Last Admin: 06/24/18 09:24 Dose: 40 mg Potassium Chloride (K-Dur 20 Meq Er Tab) 20 meq PO BID [facility] Pyridostigmine [place] (Mestinon Tab) 30 mg PO TID [facility] Last Admin: 06/24/18 09:23 Dose: 30 mg Sennosides (Senokot Tab) 8.6 mg PO BID [facility] Last Admin: 06/24/18 09:24 Dose: 8.6 mg Physical Exam - Additional Findings Additional findings: He was seen in the transitional care unit seated at the edge of his bed and he claims he felt comfortable. He was noted to be residual 1+ dependent edema of both lower extremities with hyperpigmentation of the distal legs. The neck was supple and trachea was midline. No neck vein distention was noted. There was some residual dullness to percussion in the right base posteriorly. The sounds are diminished bilaterally without audible wheezes. Few dry rales in some rhonchi were heard in the lower lobes posteriorly. Heart sounds are distant and rhythm is irregular. The abdomen is soft and nontender and bowel sounds appear slightly hypoactive. Results - Vital Signs Recent Vital Signs: Last Vital Signs Temp 97.7 F 06/24/18 07:38 Pulse 84 06/24/18 09:23 Resp 18 06/24/18 07:38 BP 117/67 06/24/18 09:23 Pulse Ox 93 L 06/24/18 07:38 - Labs Result Diagrams: 06/24/18 05:50 Labs: Laboratory Results - last 24 hr 06/24/18 06/24/18 05:50 10:40 Sodium 138 Potassium 3.0 L Chloride 101 Carbon Dioxide 34 H Anion Gap 6 L BUN 10 Creatinine 0.8 Est GFR ( Amer) > 60 Est GFR (Non-Af Amer) > 60 Random Glucose 105 Calcium 7.8 L Magnesium 1.6 Assessment & Plan (1) COPD (chronic obstructive pulmonary disease) Status: Chronic Priority: High (2) Pleural effusion due to congestive heart failure Status: Inactive Priority: High - Assessment and Plan (Free Text) Plan: Chest x-ray was requested to document whether there had been any reaccumulation of pleural fluid. Upon my review of the chest x-ray it appears as though there is some residual blunting of the costophrenic angle on the right but otherwise there has been no reaccumulation of the pleural fluid. The patient is stable for discharge to home and will be tested with overnight oximetry to see if he requires home O2. - Date & Time Date: 06/24/18 Time: 12:09
[2018-06-24] MEDS ORDERED: Potassium Chloride 20 mEq ER Tab PO ONE (12:27)
--- NOTE | 2018-06-24 16:27 | RAD ---
Date of service: 06/24/2018 PROCEDURE: CHEST RADIOGRAPH, 1 VIEW HISTORY: pleural effusion COMPARISON: 06/20/2018 FINDINGS: LUNGS: Clear. PLEURA: No pneumothorax or pleural fluid seen. CARDIOVASCULAR: Mild aortic calcification mild cardiomegaly OSSEOUS STRUCTURES: No significant abnormalities. VISUALIZED UPPER ABDOMEN: Normal. OTHER FINDINGS: None. IMPRESSION: No active disease.
--- NOTE | 2018-06-24 20:50 | CP.PCM.PN ---
Subjective - Date & Time of Evaluation Date of Evaluation: 06/24/18 Time of Evaluation: 22:22 - Subjective Subjective: Above noted K+ 3.0 Mg 1.6 Objective - Vital Signs/Intake and Output Vital Signs (last 24 hours): Temp Pulse Resp BP Pulse Ox 98.6 F 80 20 121/64 99 06/24/18 20:01 06/24/18 20:01 06/24/18 20:01 06/24/18 20:01 06/24/18 20:01 - Medications Medications: Current Medications Albuterol (Ventolin Hfa 90 Mcg/Actuation (8 G)) 2 puff INH RQ8 PRN PRN Reason: Shortness of Breath Last Admin: 06/24/18 09:17 Dose: 2 puff Albuterol/Ipratropium (Duoneb 3 Mg/0.5 Mg (3 Ml) Ud) 3 ml INH RQID [facility] Last Admin: 06/24/18 19:14 Dose: 3 ml Aspirin (Ecotrin) 81 mg PO DAILY [facility] Last Admin: 06/24/18 09:22 Dose: 81 mg Atorvastatin Calcium (Lipitor) 20 mg PO HS [facility] Last Admin: 06/23/18 22:44 Dose: 20 mg Docusate Sodium (Colace) 100 mg PO BID [facility] Last Admin: 06/24/18 17:01 Dose: 100 mg Furosemide (Lasix) 20 mg PO DAILY [facility] Last Admin: 06/24/18 09:22 Dose: 20 mg Ampicillin Sodium/Sulbactam (Sodium 1.5 gm/ Sodium Chloride) 100 mls @ 100 mls/hr IVPB Q12@0100,1300 [facility] Last Admin: 06/24/18 13:04 Dose: 100 mls/hr Lactic Acid (Lac-Hydrin 12% Lotion (225 G)) 1 applic TOP TID [facility] Last Admin: 06/24/18 18:00 Dose: Not Given Lactulose (Enulose) 10 gm PO DAILY PRN PRN Reason: Constipation Metoprolol Tartrate (Lopressor) 25 mg PO Q12 [facility] Last Admin: 06/24/18 09:23 Dose: 25 mg Pantoprazole Sodium (Protonix Ec Tab) 40 mg PO DAILY [facility] Last Admin: 06/24/18 09:24 Dose: 40 mg Potassium Chloride (K-Dur 20 Meq Er Tab) 20 meq PO BID [facility] Last Admin: 06/24/18 20:40 Dose: Not Given Pyridostigmine [place] (Mestinon Tab) 30 mg PO TID [facility] Last Admin: 06/24/18 17:03 Dose: 30 mg Sennosides (Senokot Tab) 8.6 mg PO BID [facility] Last Admin: 06/24/18 17:11 Dose: Not Given - Labs Labs: 06/24/18 05:50 - Respiratory Exam Respiratory Exam: NORMAL BREATHING PATTERN - Cardiovascular Exam Cardiovascular Exam: REGULAR RHYTHM - GI/Abdominal Exam GI & Abdominal Exam: Normal Bowel Sounds Assessment and Plan - Assessment and Plan (Free Text) Assessment: Deconditioning PT TCU Hypokalemia etiol?? ANTHONY/ CKD Lasix?? Nephrology Abdominal distention improved Colonic ileus ( recurrent ) + FOBT ?? [place] held etiol ?? 2 to L-S surgery Surgery GI pyridostigmine SOB Improved S/P thoracentesis Pleural effusion CHF vs COPD CHF Afib S/P TAVR Diuretics Cardiology [place] held COPD COSA Smoker Pulmonary LLE edema cellulitis ?? ecchymosis?? Improving ID Podiatry IV ABX Lasix Endovascular consult ??? CT scan done no significant findings HTN Prediabetes Hx Low back surgery (Severe Spinal Stenosis) Post operative illeus
[2018-06-25 07:04] LABS: ALB/GLOB RATIO 1.1 (1.0-2.1); ALBUMIN 3.1 g/dL (3.5-5.0); ALT/SGPT 32 U/L (21-72); AST/SGOT 26 U/L (17-59); BLOOD UREA NITROGEN 10 mg/dl (9-20); CALCIUM 7.9 mg/dL (8.4-10.2); GFR NON-AFRICAN AMERICAN > 60
[2018-06-25] MEDS: Albuterol-Ipratrop 3 mg / 0.5 (3 ml) UD INH SCH ×4 (08:39→19:09)
[2018-06-25] MEDS: Potassium Chloride 20 mEq ER Tab PO SCH ×2 (10:29→16:36)
[2018-06-25] MEDS: Pantoprazole 40 mg EC Tab PO SCH (10:31)
--- NOTE | 2018-06-25 14:57 | CP.PCM.PN ---
Subjective - Date & Time of Evaluation Date of Evaluation: 06/25/18 Time of Evaluation: 14:56 - Subjective Subjective: Patient sitting up he is feeling much better Decrease leg edema Vital signs stable Objective - Vital Signs/Intake and Output Vital Signs (last 24 hours): Temp Pulse Resp BP Pulse Ox 97.3 F L 92 H 20 121/61 96 06/25/18 10:27 06/25/18 10:30 06/25/18 10:27 06/25/18 10:30 06/25/18 10:27 - Medications Medications: Current Medications Albuterol (Ventolin Hfa 90 Mcg/Actuation (8 G)) 2 puff INH RQ8 PRN PRN Reason: Shortness of Breath Last Admin: 06/24/18 09:17 Dose: 2 puff Albuterol/Ipratropium (Duoneb 3 Mg/0.5 Mg (3 Ml) Ud) 3 ml INH RQID [facility] Last Admin: 06/25/18 12:11 Dose: 3 ml Aspirin (Ecotrin) 81 mg PO DAILY [facility] Last Admin: 06/25/18 10:30 Dose: 81 mg Atorvastatin Calcium (Lipitor) 20 mg PO HS [facility] Last Admin: 06/24/18 21:23 Dose: 20 mg Docusate Sodium (Colace) 100 mg PO BID [facility] Last Admin: 06/25/18 10:40 Dose: Not Given Furosemide (Lasix) 20 mg PO DAILY [facility] Last Admin: 06/25/18 10:30 Dose: 20 mg Ampicillin Sodium/Sulbactam (Sodium 1.5 gm/ Sodium Chloride) 100 mls @ 100 mls/ hr IVPB Q12@0100,1300 [facility] Last Admin: 06/25/18 14:20 Dose: 100 mls/hr Lactic Acid (Lac-Hydrin 12% Lotion (225 G)) 1 applic TOP TID [facility] Last Admin: 06/25/18 14:20 Dose: 1 unit Lactulose (Enulose) 10 gm PO DAILY PRN PRN Reason: Constipation Metoprolol Tartrate (Lopressor) 25 mg PO Q12 [facility] Last Admin: 06/25/18 10:30 Dose: 25 mg Pantoprazole Sodium (Protonix Ec Tab) 40 mg PO DAILY [facility] Last Admin: 06/25/18 10:31 Dose: 40 mg Potassium Chloride (K-Dur 20 Meq Er Tab) 20 meq PO BID [facility] Last Admin: 06/25/18 10:29 Dose: 20 meq Pyridostigmine [place] (Mestinon Tab) 30 mg PO TID [facility] Last Admin: 06/25/18 14:21 Dose: 30 mg Sennosides (Senokot Tab) 8.6 mg PO BID [facility] Last Admin: 06/25/18 10:31 Dose: 8.6 mg - Labs Labs: 06/25/18 06:15 - Constitutional Appears: No Acute Distress - Eye Exam Eye Exam: Conjunctival injection - ENT Exam ENT Exam: Mucous Membranes Moist - Neck Exam Neck Exam: absent: Lymphadenopathy - Respiratory Exam Respiratory Exam: absent: Chest Wall Tenderness - Cardiovascular Exam Cardiovascular Exam: absent: Gallop, JVD, Rubs - GI/Abdominal Exam GI & Abdominal Exam: Soft, Normal Bowel Sounds - Extremities Exam Extremities Exam: absent: Calf Tenderness - Back Exam Back Exam: absent: CVA tenderness (L), CVA tenderness (R) - Neurological Exam Neurological Exam: Alert - Psychiatric Exam Psychiatric exam: Normal Affect - Skin Skin Exam: absent: Cyanosis Assessment and Plan - Assessment and Plan (Free Text) Assessment: ARF sec to bactvrim/chf recovering from acute kidney injury hypokalemia HTN, COPD CHF s/p TAVR Obesity cellulitis Bilateral leg edema plan: renal function continues to improve and normal hypokalemia, nonitor and replace continue with lasix Serum magnesium 6 he may need some supplement orally
[2018-06-25] MEDS: Magnesium Oxide 400 mg Tab UD PO SCH (17:58)
--- NOTE | 2018-06-25 18:33 | CP.PCM.PN ---
Subjective - Date & Time of Evaluation Date of Evaluation: 06/25/18 Time of Evaluation: 22:22 - Subjective Subjective: K+ still low Mg borderline Multiple calls to staff Objective - Vital Signs/Intake and Output Vital Signs (last 24 hours): Temp Pulse Resp BP Pulse Ox 98.2 F 88 20 110/65 97 06/25/18 17:36 06/25/18 17:36 06/25/18 17:36 06/25/18 17:36 06/25/18 17:36 - Medications Medications: Current Medications Albuterol (Ventolin Hfa 90 Mcg/Actuation (8 G)) 2 puff INH RQ8 PRN PRN Reason: Shortness of Breath Last Admin: 06/24/18 09:17 Dose: 2 puff Albuterol/Ipratropium (Duoneb 3 Mg/0.5 Mg (3 Ml) Ud) 3 ml INH RQID [facility] Last Admin: 06/25/18 15:18 Dose: 3 ml Aspirin (Ecotrin) 81 mg PO DAILY [facility] Last Admin: 06/25/18 10:30 Dose: 81 mg Atorvastatin Calcium (Lipitor) 20 mg PO HS [facility] Last Admin: 06/24/18 21:23 Dose: 20 mg Docusate Sodium (Colace) 100 mg PO BID [facility] Last Admin: 06/25/18 16:36 Dose: Not Given Furosemide (Lasix) 20 mg PO DAILY [facility] Last Admin: 06/25/18 10:30 Dose: 20 mg Ampicillin Sodium/Sulbactam (Sodium 1.5 gm/ Sodium Chloride) 100 mls @ 100 mls/hr IVPB Q12@0100,1300 [facility] Last Admin: 06/25/18 14:20 Dose: 100 mls/hr Lactic Acid (Lac-Hydrin 12% Lotion (225 G)) 1 applic TOP TID [facility] Last Admin: 06/25/18 16:40 Dose: 1 unit Lactulose (Enulose) 10 gm PO DAILY PRN PRN Reason: Constipation Magnesium Oxide (Mag-Ox) 400 mg PO DAILY [facility] Last Admin: 06/25/18 17:58 Dose: 400 mg Metoprolol Tartrate (Lopressor) 25 mg PO Q12 [facility] Last Admin: 06/25/18 10:30 Dose: 25 mg Pantoprazole Sodium (Protonix Ec Tab) 40 mg PO DAILY [facility] Last Admin: 06/25/18 10:31 Dose: 40 mg Potassium Chloride (K-Dur 20 Meq Er Tab) 20 meq PO BID [facility] Last Admin: 06/25/18 16:36 Dose: 20 meq Pyridostigmine [place] (Mestinon Tab) 30 mg PO TID [facility] Last Admin: 06/25/18 16:37 Dose: 30 mg Sennosides (Senokot Tab) 8.6 mg PO BID [facility] Last Admin: 06/25/18 16:37 Dose: Not Given - Labs Labs: 06/25/18 06:15 Assessment and Plan - Assessment and Plan (Free Text) Assessment: Deconditioning PT TCU Hypokalemia etiol?? Hypomagneium ANTHONY/ CKD Change Lasix to PO 20 mg Magnesium started Nephrology Abdominal distention improved Colonic ileus ( recurrent ) + FOBT ?? [place] held etiol ?? 2 to L-S surgery Surgery GI pyridostigmine SOB Improved S/P thoracentesis Pleural effusion CHF vs COPD CHF Afib S/P TAVR Diuretics Cardiology [place] held COPD COSA Smoker Pulmonary LLE edema cellulitis ?? ecchymosis?? Improving ID Podiatry IV ABX Lasix Endovascular consult ??? CT scan done no significant findings HTN Prediabetes Hx Low back surgery (Severe Spinal Stenosis) Post operative illeus
[2018-06-26] MEDS: Albuterol-Ipratrop 3 mg / 0.5 (3 ml) UD INH SCH ×4 (07:44→20:04)
[2018-06-26] MEDS: Pantoprazole 40 mg EC Tab PO SCH (08:42)
[2018-06-26] MEDS: Potassium Chloride 20 mEq ER Tab PO SCH (08:43)
[2018-06-26] MEDS: Magnesium Oxide 400 mg Tab UD PO SCH (08:44)
--- NOTE | 2018-06-26 11:49 | CP.PCM.PN ---
Subjective - Date & Time of Evaluation Date of Evaluation: 06/26/18 Time of Evaluation: 11:49 - Subjective Subjective: Appears to be doing well on current regimen. Dependant edema seems a little more prominent today. His six minute walk test did not result in hypoxemia. Will request overnight SpO2 recording to be sure he does not have desaturations. His vital signs have been stable and he remains afebrile. On 20MEq potassium BID he still has hypokalemia. Maybe he would do better with spironolactone instead of furosemide. Will give extra K today and switch to spironolactone tomorrow AM. Objective - Vital Signs/Intake and Output Vital Signs (last 24 hours): Temp Pulse Resp BP Pulse Ox 97.8 F 68 20 116/67 97 06/26/18 09:00 06/26/18 09:00 06/26/18 09:00 06/26/18 09:00 06/26/18 09:00 - Medications Medications: Current Medications Albuterol (Ventolin Hfa 90 Mcg/Actuation (8 G)) 2 puff INH RQ8 PRN PRN Reason: Shortness of Breath Last Admin: 06/24/18 09:17 Dose: 2 puff Albuterol/Ipratropium (Duoneb 3 Mg/0.5 Mg (3 Ml) Ud) 3 ml INH RQID [facility] Last Admin: 06/26/18 07:44 Dose: 3 ml Aspirin (Ecotrin) 81 mg PO DAILY [facility] Last Admin: 06/26/18 08:43 Dose: 81 mg Atorvastatin Calcium (Lipitor) 20 mg PO HS [facility] Last Admin: 06/25/18 21:56 Dose: 20 mg Docusate Sodium (Colace) 100 mg PO BID [facility] Last Admin: 06/26/18 08:42 Dose: 100 mg Furosemide (Lasix) 20 mg PO DAILY [facility] Last Admin: 06/26/18 08:44 Dose: 20 mg Ampicillin Sodium/Sulbactam (Sodium 1.5 gm/ Sodium Chloride) 100 mls @ 100 mls/hr IVPB Q12@0100,1300 [facility] Last Admin: 06/26/18 00:30 Dose: 100 mls/hr Lactic Acid (Lac-Hydrin 12% Lotion (225 G)) 1 applic TOP TID [facility] Last Admin: 06/25/18 16:40 Dose: 1 unit Lactulose (Enulose) 10 gm PO DAILY PRN PRN Reason: Constipation Magnesium Oxide (Mag-Ox) 400 mg PO DAILY [facility] Last Admin: 06/26/18 08:44 Dose: 400 mg Metoprolol Tartrate (Lopressor) 25 mg PO Q12 [facility] Last Admin: 06/26/18 08:43 Dose: 25 mg Pantoprazole Sodium (Protonix Ec Tab) 40 mg PO DAILY [facility] Last Admin: 06/26/18 08:42 Dose: 40 mg Potassium Chloride (K-Dur 20 Meq Er Tab) 20 meq PO BID [facility] Last Admin: 06/26/18 08:43 Dose: 20 meq Pyridostigmine [place] (Mestinon Tab) 30 mg PO TID [facility] Last Admin: 06/26/18 08:45 Dose: 30 mg Sennosides (Senokot Tab) 8.6 mg PO BID [facility] Last Admin: 06/26/18 08:42 Dose: 8.6 mg - Labs Labs: 06/25/18 06:15 Assessment and Plan (1) COPD (chronic obstructive pulmonary disease) Status: Chronic
[2018-06-26] MEDS ORDERED: Potassium Chloride 20 mEq ER Tab PO ONE (12:51)
[2018-06-27] MEDS: Albuterol-Ipratrop 3 mg / 0.5 (3 ml) UD INH SCH ×4 (07:42→19:47)
[2018-06-27] MEDS: Magnesium Oxide 400 mg Tab UD PO SCH (08:57)
[2018-06-27] MEDS: Pantoprazole 40 mg EC Tab PO SCH (08:58)
[2018-06-28 06:25] LABS: BLOOD UREA NITROGEN 8 mg/dl (9-20); CALCIUM 8.6 mg/dL (8.4-10.2); GFR NON-AFRICAN AMERICAN > 60
[2018-06-28] MEDS: Albuterol-Ipratrop 3 mg / 0.5 (3 ml) UD INH SCH ×4 (07:32→19:20)
[2018-06-28] MEDS: Magnesium Oxide 400 mg Tab UD PO SCH (08:30)
[2018-06-28] MEDS: Pantoprazole 40 mg EC Tab PO SCH (08:31)
--- NOTE | 2018-06-28 08:57 | CP.PCM.PN ---
Subjective - Date & Time of Evaluation Date of Evaluation: 06/28/18 Time of Evaluation: 08:55 - Subjective Subjective: Podiatry progress note - Dr. Alvarado 88M seen and evaluated this AM for b/l LE edema. Patient resting comfortably and in NAD. States he is feeling better and his legs do not cause him any pain or discomfort. States he has participated in PT. Denies n/v/f/c/sob/cp and has no other acute complaints. Objective - Vital Signs/Intake and Output Vital Signs (last 24 hours): Temp Pulse Resp BP Pulse Ox 98.5 F 84 18 119/72 96 06/28/18 08:14 06/28/18 08:30 06/28/18 08:14 06/28/18 08:30 06/28/18 08:14 - Medications Medications: Current Medications Albuterol (Ventolin Hfa 90 Mcg/Actuation (8 G)) 2 puff INH RQ8 PRN PRN Reason: Shortness of Breath Last Admin: 06/24/18 09:17 Dose: 2 puff Albuterol/Ipratropium (Duoneb 3 Mg/0.5 Mg (3 Ml) Ud) 3 ml INH RQID [facility] Last Admin: 06/28/18 07:32 Dose: 3 ml Aspirin (Ecotrin) 81 mg PO DAILY [facility] Last Admin: 06/28/18 08:29 Dose: 81 mg Atorvastatin Calcium (Lipitor) 20 mg PO HS [facility] Last Admin: 06/27/18 22:08 Dose: 20 mg Docusate Sodium (Colace) 100 mg PO BID [facility] Last Admin: 06/28/18 08:29 Dose: 100 mg Lactic Acid (Lac-Hydrin 12% Lotion (225 G)) 1 applic TOP TID [facility] Last Admin: 06/28/18 08:29 Dose: 1 applic Lactulose (Enulose) 10 gm PO DAILY PRN PRN Reason: Constipation Magnesium Oxide (Mag-Ox) 400 mg PO DAILY [facility] Last Admin: 06/28/18 08:30 Dose: 400 mg Metoprolol Tartrate (Lopressor) 25 mg PO Q12 [facility] Last Admin: 06/28/18 08:30 Dose: 25 mg Pantoprazole Sodium (Protonix Ec Tab) 40 mg PO DAILY [facility] Last Admin: 06/28/18 08:31 Dose: 40 mg Pyridostigmine [place] (Mestinon Tab) 30 mg PO TID [facility] Last Admin: 06/28/18 08:31 Dose: 30 mg Sennosides (Senokot Tab) 8.6 mg PO BID [facility] Last Admin: 06/28/18 08:31 Dose: 8.6 mg Spironolactone (Aldactone) 25 mg PO DAILY [facility] Last Admin: 06/28/18 08:29 Dose: 25 mg - Labs Labs: 06/28/18 05:56 - Constitutional Appears: Non-toxic - Head Exam Head Exam: ATRAUMATIC - Extremities Exam Additional comments: B/L LE focused exam VASC: DP/PT pulses 1/4 palpable, cap refill <3 seconds to all digits, hair growth absent b/l, temp gradient warm to cool, pitting edema noted likely secondary to fluids, improving Neuro: Gross and protective sensation intact Derm: No open lesions or wounds present, no drainage, no purulence, no streaking, erythema resolved Ortho: Mild tenderness upon palpation of b/l LE, no other gross pathology noted - Neurological Exam Neurological Exam: Alert, Awake, Oriented x3 - Psychiatric Exam Psychiatric exam: Normal Affect Assessment and Plan - Assessment and Plan (Free Text) Assessment: 88M with b/l LE edema; resolving, erythema, resolved Plan: Patient seen and evaluated at the bedside Discussed with Dr. Alvarado Blood culture: No growth after 5 days. Continue Physical therapy Continue IV abx per ID Light compression to b/l lower extremites for edema control to prevent skin breakdown Stable from podiatry standpoint, will f/u with Dr. Alvarado upon d/c Will continue to follow
--- NOTE | 2018-06-28 10:29 | CP.PCM.PN ---
Subjective - Date & Time of Evaluation Date of Evaluation: 06/28/18 Time of Evaluation: 10:27 - Subjective Subjective: Overnight oximetry recorded from 06/26/18 & 06/27/18. Low level SpO2 76% recorded for prolonged period and patient was placed back on nasal canula. He has progressed well on his current regimen, his VS are stable, potassium corrected. He will require oxygen for home use @ 2LPM nasal canula. Objective - Vital Signs/Intake and Output Vital Signs (last 24 hours): Temp Pulse Resp BP Pulse Ox 98.5 F 84 18 119/72 96 06/28/18 08:14 06/28/18 08:30 06/28/18 08:14 06/28/18 08:30 06/28/18 08:14 - Medications Medications: Current Medications Albuterol (Ventolin Hfa 90 Mcg/Actuation (8 G)) 2 puff INH RQ8 PRN PRN Reason: Shortness of Breath Last Admin: 06/24/18 09:17 Dose: 2 puff Albuterol/Ipratropium (Duoneb 3 Mg/0.5 Mg (3 Ml) Ud) 3 ml INH RQID [facility] Last Admin: 06/28/18 07:32 Dose: 3 ml Aspirin (Ecotrin) 81 mg PO DAILY [facility] Last Admin: 06/28/18 08:29 Dose: 81 mg Atorvastatin Calcium (Lipitor) 20 mg PO HS [facility] Last Admin: 06/27/18 22:08 Dose: 20 mg Docusate Sodium (Colace) 100 mg PO BID [facility] Last Admin: 06/28/18 08:29 Dose: 100 mg Lactic Acid (Lac-Hydrin 12% Lotion (225 G)) 1 applic TOP TID [facility] Last Admin: 06/28/18 08:29 Dose: 1 applic Lactulose (Enulose) 10 gm PO DAILY PRN PRN Reason: Constipation Magnesium Oxide (Mag-Ox) 400 mg PO DAILY [facility] Last Admin: 06/28/18 08:30 Dose: 400 mg Metoprolol Tartrate (Lopressor) 25 mg PO Q12 [facility] Last Admin: 06/28/18 08:30 Dose: 25 mg Pantoprazole Sodium (Protonix Ec Tab) 40 mg PO DAILY [facility] Last Admin: 06/28/18 08:31 Dose: 40 mg Pyridostigmine [place] (Mestinon Tab) 30 mg PO TID [facility] Last Admin: 06/28/18 08:31 Dose: 30 mg Sennosides (Senokot Tab) 8.6 mg PO BID [facility] Last Admin: 06/28/18 08:31 Dose: 8.6 mg Spironolactone (Aldactone) 25 mg PO DAILY [facility] Last Admin: 06/28/18 08:29 Dose: 25 mg - Labs Labs: 06/28/18 05:56 Assessment and Plan (1) COPD (chronic obstructive pulmonary disease) Status: Chronic
--- NOTE | 2018-06-28 12:52 | CP.PCM.PN ---
Subjective - Date & Time of Evaluation Date of Evaluation: 06/28/18 Time of Evaluation: 10:20 - Subjective Subjective: Patient awake and conscious feeling much better. Vital signs noted to be stable. Leg edema decreasing. Potassium seems to be corrected. Objective - Vital Signs/Intake and Output Vital Signs (last 24 hours): Temp Pulse Resp BP Pulse Ox 98.5 F 84 18 119/72 96 06/28/18 08:14 06/28/18 08:30 06/28/18 08:14 06/28/18 08:30 06/28/18 08:14 - Medications Medications: Current Medications Albuterol (Ventolin Hfa 90 Mcg/Actuation (8 G)) 2 puff INH RQ8 PRN PRN Reason: Shortness of Breath Last Admin: 06/24/18 09:17 Dose: 2 puff Albuterol/Ipratropium (Duoneb 3 Mg/0.5 Mg (3 Ml) Ud) 3 ml INH RQID [facility] Last Admin: 06/28/18 11:40 Dose: 3 ml Aspirin (Ecotrin) 81 mg PO DAILY [facility] Last Admin: 06/28/18 08:29 Dose: 81 mg Atorvastatin Calcium (Lipitor) 20 mg PO HS [facility] Last Admin: 06/27/18 22:08 Dose: 20 mg Docusate Sodium (Colace) 100 mg PO BID [facility] Last Admin: 06/28/18 08:29 Dose: 100 mg Lactic Acid (Lac-Hydrin 12% Lotion (225 G)) 1 applic TOP TID [facility] Last Admin: 06/28/18 08:29 Dose: 1 applic Lactulose (Enulose) 10 gm PO DAILY PRN PRN Reason: Constipation Magnesium Oxide (Mag-Ox) 400 mg PO DAILY [facility] Last Admin: 06/28/18 08:30 Dose: 400 mg Metoprolol Tartrate (Lopressor) 25 mg PO Q12 [facility] Last Admin: 06/28/18 08:30 Dose: 25 mg Pantoprazole Sodium (Protonix Ec Tab) 40 mg PO DAILY [facility] Last Admin: 06/28/18 08:31 Dose: 40 mg Pyridostigmine [place] (Mestinon Tab) 30 mg PO TID [facility] Last Admin: 06/28/18 08:31 Dose: 30 mg Sennosides (Senokot Tab) 8.6 mg PO BID [facility] Last Admin: 06/28/18 08:31 Dose: 8.6 mg Spironolactone (Aldactone) 25 mg PO DAILY [facility] Last Admin: 06/28/18 08:29 Dose: 25 mg - Labs Labs: 06/28/18 05:56 - Constitutional Appears: No Acute Distress - Eye Exam Eye Exam: Conjunctival injection - ENT Exam ENT Exam: Mucous Membranes Moist - Respiratory Exam Respiratory Exam: absent: Chest Wall Tenderness - Cardiovascular Exam Cardiovascular Exam: absent: Gallop, JVD, Rubs - GI/Abdominal Exam GI & Abdominal Exam: Soft, Normal Bowel Sounds - Extremities Exam Extremities Exam: absent: Calf Tenderness - Back Exam Back Exam: absent: CVA tenderness (L), CVA tenderness (R) - Neurological Exam Neurological Exam: Alert - Skin Skin Exam: absent: Cyanosis Assessment and Plan - Assessment and Plan (Free Text) Assessment: ARF recovered hypokalemia corrected HTN, COPD CHF s/p TAVR Obesity cellulitis Bilateral leg edema plan: cut down Kcl to daily I agree to add Aldactone
--- NOTE | 2018-06-28 20:32 | CP.PCM.PN ---
Subjective - Date & Time of Evaluation Date of Evaluation: 06/28/18 Time of Evaluation: 22:22 - Subjective Subjective: above noted Objective - Vital Signs/Intake and Output Vital Signs (last 24 hours): Temp Pulse Resp BP Pulse Ox 97.6 F 75 20 114/64 94 L 06/28/18 16:45 06/28/18 16:45 06/28/18 16:45 06/28/18 16:45 06/28/18 16:45 - Medications Medications: Current Medications Albuterol (Ventolin Hfa 90 Mcg/Actuation (8 G)) 2 puff INH RQ8 PRN PRN Reason: Shortness of Breath Last Admin: 06/24/18 09:17 Dose: 2 puff Albuterol/Ipratropium (Duoneb 3 Mg/0.5 Mg (3 Ml) Ud) 3 ml INH RQID [facility] Last Admin: 06/28/18 19:20 Dose: 3 ml Aspirin (Ecotrin) 81 mg PO DAILY [facility] Last Admin: 06/28/18 08:29 Dose: 81 mg Atorvastatin Calcium (Lipitor) 20 mg PO HS [facility] Last Admin: 06/27/18 22:08 Dose: 20 mg Docusate Sodium (Colace) 100 mg PO BID [facility] Last Admin: 06/28/18 17:20 Dose: 100 mg Lactic Acid (Lac-Hydrin 12% Lotion (225 G)) 1 applic TOP TID [facility] Last Admin: 06/28/18 17:19 Dose: 1 applic Lactulose (Enulose) 10 gm PO DAILY PRN PRN Reason: Constipation Magnesium Oxide (Mag-Ox) 400 mg PO DAILY [facility] Last Admin: 06/28/18 08:30 Dose: 400 mg Metoprolol Tartrate (Lopressor) 25 mg PO Q12 [facility] Last Admin: 06/28/18 08:30 Dose: 25 mg Pantoprazole Sodium (Protonix Ec Tab) 40 mg PO DAILY [facility] Last Admin: 06/28/18 08:31 Dose: 40 mg Pyridostigmine [place] (Mestinon Tab) 30 mg PO TID [facility] Last Admin: 06/28/18 17:20 Dose: 30 mg Spironolactone (Aldactone) 25 mg PO DAILY [facility] Last Admin: 06/28/18 08:29 Dose: 25 mg - Labs Labs: 06/28/18 05:56 - Respiratory Exam Respiratory Exam: NORMAL BREATHING PATTERN - Cardiovascular Exam Cardiovascular Exam: REGULAR RHYTHM - GI/Abdominal Exam GI & Abdominal Exam: Normal Bowel Sounds Assessment and Plan - Assessment and Plan (Free Text) Assessment: Deconditioning PT TCU Hypokalemia etiol?? Hypomagneium ANTHONY/ CKD Change Lasix to PO 20 mg Magnesium started Nephrology Abdominal distention improved Colonic ileus ( recurrent ) + FOBT ?? Eloquis held etiol ?? 2 to L-S surgery Surgery GI pyridostigmine SOB Improved S/P thoracentesis Pleural effusion CHF vs COPD CHF Afib S/P TAVR Diuretics Cardiology Eloquis held COPD COSA Smoker Pulmonary LLE edema cellulitis ?? ecchymosis?? Improving ID Podiatry IV ABX Lasix Endovascular consult ??? CT scan done no significant findings HTN Prediabetes Hx Low back surgery (Severe Spinal Stenosis) Post operative illeus
--- NOTE | 2018-06-28 21:14 | CP.PCM.PN ---
Subjective - Date & Time of Evaluation Date of Evaluation: 06/28/18 Time of Evaluation: 12:00 - Subjective Subjective: Patient having regular BMs. Not c/o abdominal pain. Objective - Vital Signs/Intake and Output Vital Signs (last 24 hours): Temp Pulse Resp BP Pulse Ox 97.6 F 75 20 114/64 94 L 06/28/18 16:45 06/28/18 16:45 06/28/18 16:45 06/28/18 16:45 06/28/18 16:45 - Medications Medications: Current Medications Albuterol (Ventolin Hfa 90 Mcg/Actuation (8 G)) 2 puff INH RQ8 PRN PRN Reason: Shortness of Breath Last Admin: 06/24/18 09:17 Dose: 2 puff Albuterol/Ipratropium (Duoneb 3 Mg/0.5 Mg (3 Ml) Ud) 3 ml INH RQID [facility] Last Admin: 06/28/18 19:20 Dose: 3 ml Aspirin (Ecotrin) 81 mg PO DAILY [facility] Last Admin: 06/28/18 08:29 Dose: 81 mg Atorvastatin Calcium (Lipitor) 20 mg PO HS [facility] Last Admin: 06/27/18 22:08 Dose: 20 mg Docusate Sodium (Colace) 100 mg PO BID [facility] Last Admin: 06/28/18 17:20 Dose: 100 mg Lactic Acid (Lac-Hydrin 12% Lotion (225 G)) 1 applic TOP TID [facility] Last Admin: 06/28/18 17:19 Dose: 1 applic Lactulose (Enulose) 10 gm PO DAILY PRN PRN Reason: Constipation Magnesium Oxide (Mag-Ox) 400 mg PO DAILY [facility] Last Admin: 06/28/18 08:30 Dose: 400 mg Metoprolol Tartrate (Lopressor) 25 mg PO Q12 [facility] Last Admin: 06/28/18 08:30 Dose: 25 mg Pantoprazole Sodium (Protonix Ec Tab) 40 mg PO DAILY [facility] Last Admin: 06/28/18 08:31 Dose: 40 mg Pyridostigmine [place] (Mestinon Tab) 30 mg PO TID [facility] Last Admin: 06/28/18 17:20 Dose: 30 mg Spironolactone (Aldactone) 25 mg PO DAILY [facility] Last Admin: 06/28/18 08:29 Dose: 25 mg - Labs Labs: 06/28/18 05:56 - Head Exam Head Exam: ATRAUMATIC - Eye Exam Eye Exam: Normal appearance - ENT Exam ENT Exam: Normal Exam - Neck Exam Neck Exam: Full ROM - Respiratory Exam Respiratory Exam: NORMAL BREATHING PATTERN - Cardiovascular Exam Cardiovascular Exam: +S1, +S2 - GI/Abdominal Exam GI & Abdominal Exam: Distended, Soft Assessment and Plan (1) Abdominal distention Assessment & Plan: Abdomen distended but soft. Has regular BMs. Continue pyridostigmine and lactulose. Status: Acute
[2018-06-29] MEDS: Albuterol-Ipratrop 3 mg / 0.5 (3 ml) UD INH SCH ×4 (07:06→19:12)
[2018-06-29] MEDS: Magnesium Oxide 400 mg Tab UD PO SCH (09:13)
[2018-06-29] MEDS: Pantoprazole 40 mg EC Tab PO SCH (09:13)
--- NOTE | 2018-06-29 09:18 | CP.PCM.PN ---
Subjective - Date & Time of Evaluation Date of Evaluation: 06/29/18 Time of Evaluation: 09:18 - Subjective Subjective: Out of bed feeling much better. Vital signs stable Objective - Vital Signs/Intake and Output Vital Signs (last 24 hours): Temp Pulse Resp BP Pulse Ox 98.5 F 80 18 118/70 96 06/29/18 08:20 06/29/18 09:11 06/29/18 08:20 06/29/18 09:11 06/29/18 08:20 - Medications Medications: Current Medications Albuterol (Ventolin Hfa 90 Mcg/Actuation (8 G)) 2 puff INH RQ8 PRN PRN Reason: Shortness of Breath Last Admin: 06/24/18 09:17 Dose: 2 puff Albuterol/Ipratropium (Duoneb 3 Mg/0.5 Mg (3 Ml) Ud) 3 ml INH RQID [facility] Last Admin: 06/29/18 07:06 Dose: 3 ml Aspirin (Ecotrin) 81 mg PO DAILY [facility] Last Admin: 06/29/18 09:12 Dose: 81 mg Atorvastatin Calcium (Lipitor) 20 mg PO HS [facility] Last Admin: 06/28/18 21:58 Dose: 20 mg Docusate Sodium (Colace) 100 mg PO BID [facility] Last Admin: 06/29/18 09:09 Dose: 100 mg Lactic Acid (Lac-Hydrin 12% Lotion (225 G)) 1 applic TOP TID [facility] Last Admin: 06/29/18 09:08 Dose: 1 applic Lactulose (Enulose) 10 gm PO DAILY PRN PRN Reason: Constipation Magnesium Oxide (Mag-Ox) 400 mg PO DAILY [facility] Last Admin: 06/29/18 09:13 Dose: 400 mg Metoprolol Tartrate (Lopressor) 25 mg PO Q12 [facility] Last Admin: 06/29/18 09:11 Dose: 25 mg Pantoprazole Sodium (Protonix Ec Tab) 40 mg PO DAILY [facility] Last Admin: 06/29/18 09:13 Dose: 40 mg Pyridostigmine [place] (Mestinon Tab) 30 mg PO TID [facility] Last Admin: 06/29/18 09:10 Dose: 30 mg Spironolactone (Aldactone) 25 mg PO DAILY [facility] Last Admin: 06/29/18 09:12 Dose: 25 mg - Labs Labs: 06/28/18 05:56 - Constitutional Appears: No Acute Distress - Eye Exam Eye Exam: Conjunctival injection - ENT Exam ENT Exam: Mucous Membranes Moist - Respiratory Exam Respiratory Exam: absent: Chest Wall Tenderness, NORMAL BREATHING PATTERN - GI/Abdominal Exam GI & Abdominal Exam: Soft, Normal Bowel Sounds - Extremities Exam Extremities Exam: absent: Calf Tenderness - Back Exam Back Exam: absent: CVA tenderness (L), CVA tenderness (R) - Neurological Exam Neurological Exam: Alert - Psychiatric Exam Psychiatric exam: Normal Affect - Skin Skin Exam: absent: Cyanosis Assessment and Plan - Assessment and Plan (Free Text) Assessment: ARF recovered hypokalemia corrected HTN, COPD CHF s/p TAVR Obesity cellulitis Bilateral leg edema plan: DC potassium Started on Aldactone may need 25 mg twice daily Monitor daily weight if he started to gain weight he need to be put back on Lasix
--- NOTE | 2018-06-29 15:57 | CP.PCM.PN ---
Subjective - Date & Time of Evaluation Date of Evaluation: 06/29/18 Time of Evaluation: 15:56 - Subjective Subjective: The patient has been showing signs of some excess fluid retention with increased weight and dependent edema of the lower extremities. Spironolactone 25 mg has been increased from once daily to twice daily. Objective - Vital Signs/Intake and Output Vital Signs (last 24 hours): Temp Pulse Resp BP Pulse Ox 98.5 F 80 18 118/70 96 06/29/18 08:20 06/29/18 09:11 06/29/18 08:20 06/29/18 09:11 06/29/18 08:20 - Medications Medications: Current Medications Albuterol (Ventolin Hfa 90 Mcg/Actuation (8 G)) 2 puff INH RQ8 PRN PRN Reason: Shortness of Breath Last Admin: 06/24/18 09:17 Dose: 2 puff Albuterol/Ipratropium (Duoneb 3 Mg/0.5 Mg (3 Ml) Ud) 3 ml INH RQID [facility] Last Admin: 06/29/18 15:13 Dose: 3 ml Aspirin (Ecotrin) 81 mg PO DAILY [facility] Last Admin: 06/29/18 09:12 Dose: 81 mg Atorvastatin Calcium (Lipitor) 20 mg PO HS [facility] Last Admin: 06/28/18 21:58 Dose: 20 mg Docusate Sodium (Colace) 100 mg PO BID [facility] Last Admin: 06/29/18 09:09 Dose: 100 mg Lactic Acid (Lac-Hydrin 12% Lotion (225 G)) 1 applic TOP TID [facility] Last Admin: 06/29/18 13:30 Dose: 1 applic Lactulose (Enulose) 10 gm PO DAILY PRN PRN Reason: Constipation Magnesium Oxide (Mag-Ox) 400 mg PO DAILY [facility] Last Admin: 06/29/18 09:13 Dose: 400 mg Metoprolol Tartrate (Lopressor) 25 mg PO Q12 [facility] Last Admin: 06/29/18 09:11 Dose: 25 mg Pantoprazole Sodium (Protonix Ec Tab) 40 mg PO DAILY [facility] Last Admin: 06/29/18 09:13 Dose: 40 mg Pyridostigmine [place] (Mestinon Tab) 30 mg PO TID [facility] Last Admin: 06/29/18 13:30 Dose: 30 mg Spironolactone (Aldactone) 25 mg PO BID [facility] - Labs Labs: 06/28/18 05:56 Assessment and Plan (1) COPD (chronic obstructive pulmonary disease) Status: Chronic
[2018-06-29 16:47] VITALS: RESP 20
[2018-06-29 18:18] LABS: ALB/GLOB RATIO 1.1 (1.0-2.1); ALBUMIN 3.5 g/dL (3.5-5.0); ALT/SGPT 33 U/L (21-72); AST/SGOT 29 U/L (17-59); BLOOD UREA NITROGEN 9 mg/dl (9-20); CALCIUM 8.8 mg/dL (8.4-10.2); GFR NON-AFRICAN AMERICAN > 60
[2018-06-29 18:45] LABS: HEMOGLOBIN 9.6 g/dL (12.0-18.0); MEAN CELL VOLUME 95.2 fl (80.0-94.0); MEAN CORPUSCULAR HEMOGLOBIN 30.2 pg (27.0-31.0); MEAN CORPUSCULAR HGB CONC 31.7 g/dL (33.0-37.0); RBC 3.2 Mil/uL (4.40-5.90); RED CELL DISTRIBUTION WIDTH 16.8 % (11.5-14.5); WHITE BLOOD COUNT 6.2 K/uL (4.8-10.8)
--- NOTE | 2018-06-29 20:39 | CP.PCM.PN ---
Subjective - Date & Time of Evaluation Date of Evaluation: 06/29/18 Time of Evaluation: 22:22 - Subjective Subjective: Doing well Objective - Vital Signs/Intake and Output Vital Signs (last 24 hours): Temp Pulse Resp BP Pulse Ox 98.1 F 81 20 113/65 95 06/29/18 16:47 06/29/18 16:47 06/29/18 16:47 06/29/18 16:47 06/29/18 16:47 - Medications Medications: Current Medications Albuterol (Ventolin Hfa 90 Mcg/Actuation (8 G)) 2 puff INH RQ8 PRN PRN Reason: Shortness of Breath Last Admin: 06/24/18 09:17 Dose: 2 puff Albuterol/Ipratropium (Duoneb 3 Mg/0.5 Mg (3 Ml) Ud) 3 ml INH RQID [facility] Last Admin: 06/29/18 19:12 Dose: 3 ml Aspirin (Ecotrin) 81 mg PO DAILY [facility] Last Admin: 06/29/18 09:12 Dose: 81 mg Atorvastatin Calcium (Lipitor) 20 mg PO HS [facility] Last Admin: 06/28/18 21:58 Dose: 20 mg Docusate Sodium (Colace) 100 mg PO BID [facility] Last Admin: 06/29/18 17:11 Dose: 100 mg Lactic Acid (Lac-Hydrin 12% Lotion (225 G)) 1 applic TOP TID [facility] Last Admin: 06/29/18 17:12 Dose: 1 applic Lactulose (Enulose) 10 gm PO DAILY PRN PRN Reason: Constipation Magnesium Oxide (Mag-Ox) 400 mg PO DAILY [facility] Last Admin: 06/29/18 09:13 Dose: 400 mg Metoprolol Tartrate (Lopressor) 25 mg PO Q12 [facility] Last Admin: 06/29/18 09:11 Dose: 25 mg Pantoprazole Sodium (Protonix Ec Tab) 40 mg PO DAILY [facility] Last Admin: 06/29/18 09:13 Dose: 40 mg Pyridostigmine [place] (Mestinon Tab) 30 mg PO TID [facility] Last Admin: 06/29/18 17:12 Dose: 30 mg Spironolactone (Aldactone) 25 mg PO BID [facility] Last Admin: 06/29/18 17:11 Dose: 25 mg - Labs Labs: 06/29/18 18:41 06/29/18 17:45 - Respiratory Exam Respiratory Exam: NORMAL BREATHING PATTERN - Cardiovascular Exam Cardiovascular Exam: REGULAR RHYTHM - GI/Abdominal Exam GI & Abdominal Exam: Normal Bowel Sounds Assessment and Plan - Assessment and Plan (Free Text) Assessment: Deconditioning PT TCU Hypokalemia etiol?? Hypomagneium ANTHONY/ CKD Changed Lasix to aldactone Magnesium started Nephrology Abdominal distention improved Colonic ileus ( recurrent ) + FOBT ?? Eloquis held etiol ?? 2 to L-S surgery Surgery GI pyridostigmine SOB Improved S/P thoracentesis Pleural effusion CHF vs COPD CHF Afib S/P TAVR Diuretics Cardiology Eloquis held COPD COSA Smoker Pulmonary LLE edema cellulitis ?? ecchymosis?? Improving ID Podiatry IV ABX Lasix Endovascular consult ??? CT scan done no significant findings HTN Prediabetes Hx Low back surgery (Severe Spinal Stenosis) Post operative illeus
[2018-06-29 21:49] VITALS: TEMP 98.6; O2SAT 97
[2018-06-30] MEDS: Albuterol-Ipratrop 3 mg / 0.5 (3 ml) UD INH SCH ×2 (07:35→11:48)
[2018-06-30 07:56] VITALS: BP 119/77; PULSE 91
[2018-06-30] MEDS: Pantoprazole 40 mg EC Tab PO SCH (08:25)
[2018-06-30] MEDS: Magnesium Oxide 400 mg Tab UD PO SCH (08:27)
--- NOTE | 2018-06-30 11:32 | CP.PCM.PN ---
Subjective - Date & Time of Evaluation Date of Evaluation: 06/30/18 Time of Evaluation: 11:32 - Subjective Subjective: The patient was seen on rounds the transitional care unit. He is seated on the edge of the bed and appears comfortable. He offers no complaint of shortness of breath. He has been able to participate in physical therapy. Lower extremity edema seems to be slightly increased and he has been placed on spironolactone which has been raised from once daily to twice daily. He has been instructed on the need to follow his weight on a regular basis after discharge and to notify his PMD there is steady increase. Objective - Vital Signs/Intake and Output Vital Signs (last 24 hours): Temp Pulse Resp BP Pulse Ox 98.6 F 91 H 20 119/77 97 06/30/18 07:56 06/30/18 08:26 06/30/18 07:56 06/30/18 08:26 06/30/18 07:56 - Medications Medications: Current Medications Albuterol (Ventolin Hfa 90 Mcg/Actuation (8 G)) 2 puff INH RQ8 PRN PRN Reason: Shortness of Breath Last Admin: 06/24/18 09:17 Dose: 2 puff Albuterol/Ipratropium (Duoneb 3 Mg/0.5 Mg (3 Ml) Ud) 3 ml INH RQID [facility] Last Admin: 06/30/18 07:35 Dose: 3 ml Aspirin (Ecotrin) 81 mg PO DAILY [facility] Last Admin: 06/30/18 08:26 Dose: 81 mg Atorvastatin Calcium (Lipitor) 20 mg PO HS [facility] Last Admin: 06/29/18 21:22 Dose: 20 mg Docusate Sodium (Colace) 100 mg PO BID [facility] Last Admin: 06/30/18 08:27 Dose: 100 mg Lactic Acid (Lac-Hydrin 12% Lotion (225 G)) 1 applic TOP TID [facility] Last Admin: 06/30/18 08:25 Dose: 1 applic Lactulose (Enulose) 10 gm PO DAILY PRN PRN Reason: Constipation Magnesium Oxide (Mag-Ox) 400 mg PO DAILY [facility] Last Admin: 06/30/18 08:27 Dose: 400 mg Metoprolol Tartrate (Lopressor) 25 mg PO Q12 [facility] Last Admin: 06/30/18 08:26 Dose: 25 mg Pantoprazole Sodium (Protonix Ec Tab) 40 mg PO DAILY [facility] Last Admin: 06/30/18 08:25 Dose: 40 mg Pyridostigmine [place] (Mestinon Tab) 30 mg PO TID [facility] Last Admin: 06/30/18 08:26 Dose: 30 mg Spironolactone (Aldactone) 25 mg PO BID [facility] Last Admin: 06/30/18 08:26 Dose: 25 mg - Labs Labs: 06/29/18 18:41 06/29/18 17:45 Assessment and Plan (1) COPD (chronic obstructive pulmonary disease) Status: Chronic
--- NOTE | 2018-06-30 18:37 | CP.PCM.PN ---
Subjective - Date & Time of Evaluation Date of Evaluation: 06/30/18 Time of Evaluation: 22:22 - Subjective Subjective: Pulmonary consult appreciated Multiple calls to staff and pharmacy Objective - Vital Signs/Intake and Output Vital Signs (last 24 hours): Temp Pulse Resp BP Pulse Ox 98.6 F 91 H 20 119/77 97 06/30/18 07:56 06/30/18 08:26 06/30/18 07:56 06/30/18 08:26 06/30/18 07:56 - Labs Labs: 06/29/18 18:41 06/29/18 17:45 - Respiratory Exam Respiratory Exam: NORMAL BREATHING PATTERN - Cardiovascular Exam Cardiovascular Exam: REGULAR RHYTHM - GI/Abdominal Exam GI & Abdominal Exam: Normal Bowel Sounds Assessment and Plan - Assessment and Plan (Free Text) Assessment: Deconditioning PT TCU Low ext edema Aldactone monitor wts SOB Improved S/P thoracentesis Pleural effusion CHF vs COPD CHF Afib S/P TAVR Diuretics Cardiology Eloquis held COPD COSA Smoker Pulmonary Abdominal distention improved Colonic ileus ( recurrent ) + FOBT ?? Eloquis held etiol ?? 2 to L-S surgery Surgery GI pyridostigmine LLE edema cellulitis ?? ecchymosis?? Improving ID Podiatry IV ABX Lasix Endovascular consult ??? CT scan done no significant findings Hypokalemia etiol?? Hypomagneium ANTHONY/ CKD Changed Lasix to aldactone Magnesium started Nephrology HTN Prediabetes Hx Low back surgery (Severe Spinal Stenosis) Post operative illeus
== END 2018-06-30 14:14 | disposition home health service (06) | DRG 603 ==
LOC: H.TCU 18:59
PROVIDERS: ADMIT Family Medicine Geriatric Medicine; ATTEND Family Medicine Geriatric Medicine
PROC: F07Z8FZ Transfer Training Treatment using Assistive, Adaptive, Supportive or Protective Equipment (ICD-10-PCS; principal; 2018-06-21)
PROC: F07Z9FZ Gait Training/Functional Ambulation Treatment using Assistive, Adaptive, Supportive or Protective Equipment (ICD-10-PCS; 2018-06-21)
PROC: F07L6GZ Therapeutic Exercise Treatment of Musculoskeletal System - Lower Back / Lower Extremity using Aerobic Endurance and Conditioning Equipment (ICD-10-PCS; 2018-06-21)
PROC: F08Z1FZ Dressing Techniques Treatment using Assistive, Adaptive, Supportive or Protective Equipment (ICD-10-PCS; 2018-06-21)
PROC: 5A0955Z Assistance with Respiratory Ventilation, Greater than 96 Consecutive Hours (ICD-10-PCS; 2018-06-21)
DX: L03.116 Cellulitis of left lower limb (principal); K56.7 Ileus, unspecified; N17.9 Acute kidney failure, unspecified; J44.9 Chronic obstructive pulmonary disease, unspecified; G47.33 Obstructive sleep apnea (adult) (pediatric); I48.91 Unspecified atrial fibrillation; Z95.2 Presence of prosthetic heart valve; F17.200 Nicotine dependence, unspecified, uncomplicated; R73.03 Prediabetes; M48.00 Spinal stenosis, site unspecified; I27.20 Pulmonary hypertension, unspecified; E66.9 Obesity, unspecified; Z68.34 Body mass index [BMI] 34.0-34.9, adult; E87.6 Hypokalemia; I50.9 Heart failure, unspecified; I11.0 Hypertensive heart disease with heart failure

== ENCOUNTER 2018-07-07 23:51 | Inpatient (IN) | payer MEDICARE, OTHER ==
[2018-07-08 00:25] LABS: ABG ALLEN TEST YES; ARTERIAL BLOOD GAS HCO3 28.9 mmol/L (21-28); ARTERIAL BLOOD GAS O2 SAT 85.3 % (95-98); ARTERIAL BLOOD GAS PCO2 116 mm/Hg (35-45); ARTERIAL BLOOD GAS PH 7.14 (7.35-7.45); ARTERIAL BLOOD GAS PO2 46 mm/Hg (80-100); ARTERIAL BLOOD GAS TCO2 43.1 mmol/L (22-28)
[2018-07-08 00:40] LABS: BASO % 0.5 % (0.0-2.0); EOS % 0.3 % (0.0-4.0); LYMPH # 1.1 K/uL (1.0-4.3); LYMPH % 10.9 % (20.0-40.0); MEAN CELL VOLUME 96.3 fl (80.0-94.0); MEAN CORPUSCULAR HEMOGLOBIN 29.6 pg (27.0-31.0); MEAN CORPUSCULAR HGB CONC 30.7 g/dL (33.0-37.0); MEAN PLATELET VOLUME 8.5 fl (7.2-11.7); MONO # 1.6 K/uL (0.0-0.8); MONO % 16.6 % (0.0-10.0); NEUT # 7.1 K/uL (1.8-7.0); NEUT % 71.7 % (50.0-75.0); NRBC % 0.3 % (0.0-0.0); RBC 3.71 Mil/uL (4.40-5.90); RED CELL DISTRIBUTION WIDTH 16.4 % (11.5-14.5); WHITE BLOOD COUNT 9.8 K/uL (4.8-10.8)
[2018-07-08 00:45] LABS: INR 1.1; PROTHROMBIN TIME 12.6 Seconds (9.8-13.1)
[2018-07-08 00:47] LABS: PARTIAL THROMBOPLASTIN TIME 32.7 Seconds (25.6-37.1)
[2018-07-08 01:02] LABS: B-TYPE NATRIURETIC PEPTIDE 5580 pg/ml (0-900)
[2018-07-08 01:03] LABS: ALB/GLOB RATIO 1.2 (1.0-2.1); ALBUMIN 4.3 g/dL (3.5-5.0); ALT/SGPT 27 U/L (21-72); AST/SGOT 26 U/L (17-59); BLOOD UREA NITROGEN 18 mg/dl (9-20); CALCIUM 8.8 mg/dL (8.4-10.2); GFR NON-AFRICAN AMERICAN > 60
[2018-07-08] MEDS ORDERED: Etomidate 20 mg/10ml Inj IV ONE ×2 (02:00→02:28)
[2018-07-08] MEDS ORDERED: Succinylcholine 200 mg/10 ml Inj IV ONE ×2 (02:01→02:29)
--- NOTE | 2018-07-08 03:17 | CP.PCM.HP ---
Past Patient History - Infectious Disease Hx of Infectious Diseases: None - Past Medical History & Family History Past Medical History?: Yes - Past Social History Smoking Status: Former Smoker - CARDIAC Hx Atrial Fibrillation: Yes - PULMONARY Hx Chronic Obstructive Pulmonary Disease (COPD): Yes - NEUROLOGICAL Hx Neurological Disorder: No - HEENT Hx HEENT Problems: No - RENAL Hx Chronic Kidney Disease: No - ENDOCRINE/METABOLIC Hx Endocrine Disorders: No - HEMATOLOGICAL/ONCOLOGICAL Hx AIDS: No Hx Human Immunodeficiency Virus (HIV): No - INTEGUMENTARY Other/Comment: skin lesion recently removed from left infra-ocular area - MUSCULOSKELETAL/RHEUMATOLOGICAL Hx Falls: No Hx Gout: Yes Hx Unsteady Gait: Yes (ambulates with cane) - GASTROINTESTINAL Hx Gastrointestinal Disorders: No Hx Diarrhea: Yes Other/Comment: ileus - GENITOURINARY/GYNECOLOGICAL Hx Genitourinary Disorders: No - PSYCHIATRIC Hx Psychophysiologic Disorder: No Hx Substance Use: No - SURGICAL HISTORY Hx Valve Replacement: Yes (TAVR) Other/Comment: Laminectomy L3-L5 05/15/2017 - ANESTHESIA Hx Anesthesia: Yes Hx Anesthesia Reactions: No Hx Malignant Hyperthermia: No Meds Allergies/Adverse Reactions: Allergies Allergy/AdvReac Type Severity Reaction Status Date / Time No Known Allergies Allergy Verified 07/07/18 23:59 Results - Vital Signs Recent Vital Signs: Last Vital Signs Temp 98.9 F 07/07/18 23:59 Pulse 84 07/08/18 00:20 Resp 22 07/07/18 23:59 BP 137/69 07/08/18 00:41 Pulse Ox 94 L 07/07/18 23:59 - Labs Result Diagrams: 07/08/18 00:19 07/08/18 00:19 Labs: Laboratory Results - last 24 hr 07/08/18 07/08/18 07/08/18 00:19 00:19 00:19 WBC 9.8 D RBC 3.71 L Hgb 11.0 L Hct 35.7 MCV 96.3 H MCH 29.6 MCHC 30.7 L RDW 16.4 H Plt Count 246 MPV 8.5 Neut % (Auto) 71.7 Lymph % (Auto) 10.9 L [place] % (Auto) 16.6 H Eos % (Auto) 0.3 Baso % (Auto) 0.5 Neut # (Auto) 7.1 H Lymph # (Auto) 1.1 [place] # (Auto) 1.6 H Eos # (Auto) 0.0 Baso # (Auto) 0.0 PT INR APTT pCO2 116 H* pO2 46 L HCO3 28.9 H ABG pH 7.14 L* ABG Total CO2 43.1 H ABG O2 Saturation 85.3 L ABG Base Excess 6.2 H Nam Test Yes ABG Potassium 4.8 A-a O2 Difference 522.0 Sodium 138.0 140 Chloride 103.0 100 Glucose 168 H Lactate 0.7 Vent Mode Bipap Mechanical Rate 16 FiO2 100.0 Inspiratory BiPAP 12 Expiratory BiPAP 6 Crit Value Called To Jas sanders md Crit Value Called By 333 Crit Value Read Back Y Blood Gas Notified Time 25 Potassium 4.7 Carbon Dioxide 36 H Anion Gap 9 L BUN 18 Creatinine 0.9 Est GFR ( Amer) > 60 Est GFR (Non-Af Amer) > 60 Random Glucose 173 H Calcium 8.8 Total Bilirubin 0.5 AST 26 ALT 27 Alkaline Phosphatase 83 Troponin I < 0.0120 NT-Pro-B Natriuret Pep 5580 H Total Protein 7.9 Albumin 4.3 Globulin 3.6 Albumin/Globulin Ratio 1.2 Arterial Blood Potassium 4.8 07/08/18 00:19 WBC RBC Hgb Hct MCV MCH MCHC RDW Plt Count MPV Neut % (Auto) Lymph % (Auto) [place] % (Auto) Eos % (Auto) Baso % (Auto) Neut # (Auto) Lymph # (Auto) [place] # (Auto) Eos # (Auto) Baso # (Auto) PT 12.6 INR 1.1 APTT 32.7 pCO2 pO2 HCO3 ABG pH ABG Total CO2 ABG O2 Saturation ABG Base Excess Nam Test ABG Potassium A-a O2 Difference Sodium Chloride Glucose Lactate Vent Mode Mechanical Rate FiO2 Inspiratory BiPAP Expiratory BiPAP Crit Value Called To Crit Value Called By Crit Value Read Back Blood Gas Notified Time Potassium Carbon Dioxide Anion Gap BUN Creatinine Est GFR ( Amer) Est GFR (Non-Af Amer) Random Glucose Calcium Total Bilirubin AST ALT Alkaline Phosphatase Troponin I NT-Pro-B Natriuret Pep Total Protein Albumin Globulin Albumin/Globulin Ratio Arterial Blood Potassium
--- NOTE | 2018-07-08 03:32 | CP.PCM.CON ---
History of Present Illness - History of Present Illness History of Present Illness: Reason for consult: Acute hypoxic-hypercapnic respriatory failure CC: SOB HPI: 88 yo CM with extensive medical hx including HTN, HLD, COPD, pulmonary hypertension, HFpEF, s/p TAVR, Chronic A-fib (Eliquis on hold due to +FOBT?), recurrent pleural effusion, admitted 4 time over the past month was brought in by EMS for SOB. Patient not able to provide info as he is in respiratory distress on Bipap and not able to tell much even with the help of date pitter except that he has being feeling sick for the past few days. Was discharged earlier this month after being treated fpr ANTHONY and CHF exacerbation s/p right thoracenthesis 3 weeks ago. In the ED upon my assessment was tachycardic and tachypneic saturating in 80s on 100% FiO2 on Bipap and confused and obtunded. Patient being intubated and admitted to ICU for further care. Unable to obtain past medical, social, family hx and ROS due to his mental status. Next of kin is and at this time wants everything to be done. Home meds reviewed (as per med-rec). Physical exam: General: Patient in acute respiratory distress HEENT: NC/AT, EOMI, PERLL, significant JVD, no cervical lymphadenopathy Lungs: Crackles bilaterally on auscultation with diminished breathing sounds on left Cardiovascular: S1/S2, tachycardic and irregularly irregular, pulses full and symmetric bilaterally, significant anasarca present Abdomen: Soft, mildly distended but not tender, no organomegaly appreciated Genitalia: Deferred Extremities: ROM seems to be intact, no joint deformity Skin: B/L LE chronic ectatic skin changes present Neuro-exam: Patient is obtunded and full exam not possible at this time but moves all extremities spontaneously Lab and imaging: EKG I personally reviewed showed Afib with old LBBB but no evidence of ongoing ischemia and unchanged when compared to previous EKG. CXR I personally reviewed showed congestion with almost complete whitening of left hemithorax c/o large left effusion and small right effusion. Underlying infiltrate can't be ruled out. ABG on 100% FiO2 via Bipap: 7.14/116/46 (85%) Blood work otherwise unremarkable except for elevated pro-BNP of 5580 Assessment and plan: Acute hypoxic-hypercapnic respiratory failure: Likely due to acute exacerbation of chronic diastolic heart failure in the context of fluid overload. Patient with severe respiratory acidosis and in distress and hypoixc on bipap. Agree with intubation and mech-vent. IV Lasix. Close monitoring of hemodynamic and respiratory status, renal function, electrolytes, I&O in ICU. Pulmonary and cardiology consult. Prognosis guarded and family aware. I spent total of 36 min of critical care time trying to stabilize this critically unstable patient excluding any time spent for any procedures Past Patient History - Infectious Disease Hx of Infectious Diseases: None - Past Medical History & Family History Past Medical History?: Yes - Past Social History Smoking Status: Former Smoker - CARDIAC Hx Atrial Fibrillation: Yes - PULMONARY Hx Chronic Obstructive Pulmonary Disease (COPD): Yes - NEUROLOGICAL Hx Neurological Disorder: No - HEENT Hx HEENT Problems: No - RENAL Hx Chronic Kidney Disease: No - ENDOCRINE/METABOLIC Hx Endocrine Disorders: No - HEMATOLOGICAL/ONCOLOGICAL Hx AIDS: No Hx Human Immunodeficiency Virus (HIV): No - INTEGUMENTARY Other/Comment: skin lesion recently removed from left infra-ocular area - MUSCULOSKELETAL/RHEUMATOLOGICAL Hx Falls: No Hx Gout: Yes Hx Unsteady Gait: Yes (ambulates with cane) - GASTROINTESTINAL Hx Gastrointestinal Disorders: No Hx Diarrhea: Yes Other/Comment: ileus - GENITOURINARY/GYNECOLOGICAL Hx Genitourinary Disorders: No - PSYCHIATRIC Hx Psychophysiologic Disorder: No Hx Substance Use: No - SURGICAL HISTORY Hx Valve Replacement: Yes (TAVR) Other/Comment: Laminectomy L3-L5 05/15/2017 - ANESTHESIA Hx Anesthesia: Yes Hx Anesthesia Reactions: No Hx Malignant Hyperthermia: No Meds Allergies/Adverse Reactions: Allergies Allergy/AdvReac Type Severity Reaction Status Date / Time No Known Allergies Allergy Verified 07/07/18 23:59 Results - Vital Signs Recent Vital Signs: Last Vital Signs Temp 98.9 F 07/07/18 23:59 Pulse 84 07/08/18 00:20 Resp 22 07/07/18 23:59 BP 137/69 07/08/18 00:41 Pulse Ox 94 L 07/07/18 23:59 - Labs Result Diagrams: 07/08/18 00:19 07/08/18 00:19 Labs: Laboratory Results - last 24 hr 07/08/18 07/08/18 07/08/18 00:19 00:19 00:19 WBC 9.8 D RBC 3.71 L Hgb 11.0 L Hct 35.7 MCV 96.3 H MCH 29.6 MCHC 30.7 L RDW 16.4 H Plt Count 246 MPV 8.5 Neut % (Auto) 71.7 Lymph % (Auto) 10.9 L [place] % (Auto) 16.6 H Eos % (Auto) 0.3 Baso % (Auto) 0.5 Neut # (Auto) 7.1 H Lymph # (Auto) 1.1 [place] # (Auto) 1.6 H Eos # (Auto) 0.0 Baso # (Auto) 0.0 PT INR APTT pCO2 116 H* pO2 46 L HCO3 28.9 H ABG pH 7.14 L* ABG Total CO2 43.1 H ABG O2 Saturation 85.3 L ABG Base Excess 6.2 H Nam Test Yes ABG Potassium 4.8 A-a O2 Difference 522.0 Sodium 138.0 140 Chloride 103.0 100 Glucose 168 H Lactate 0.7 Vent Mode Bipap Mechanical Rate 16 FiO2 100.0 Inspiratory BiPAP 12 Expiratory BiPAP 6 Crit Value Called To Jas sanders md Crit Value Called By 333 Crit Value Read Back Y Blood Gas Notified Time 25 Potassium 4.7 Carbon Dioxide 36 H Anion Gap 9 L BUN 18 Creatinine 0.9 Est GFR ( Amer) > 60 Est GFR (Non-Af Amer) > 60 Random Glucose 173 H Calcium 8.8 Total Bilirubin 0.5 AST 26 ALT 27 Alkaline Phosphatase 83 Troponin I < 0.0120 NT-Pro-B Natriuret Pep 5580 H Total Protein 7.9 Albumin 4.3 Globulin 3.6 Albumin/Globulin Ratio 1.2 Arterial Blood Potassium 4.8 07/08/18 00:19 WBC RBC Hgb Hct MCV MCH MCHC RDW Plt Count MPV Neut % (Auto) Lymph % (Auto) [place] % (Auto) Eos % (Auto) Baso % (Auto) Neut # (Auto) Lymph # (Auto) [place] # (Auto) Eos # (Auto) Baso # (Auto) PT 12.6 INR 1.1 APTT 32.7 pCO2 pO2 HCO3 ABG pH ABG Total CO2 ABG O2 Saturation ABG Base Excess Nam Test ABG Potassium A-a O2 Difference Sodium Chloride Glucose Lactate Vent Mode Mechanical Rate FiO2 Inspiratory BiPAP Expiratory BiPAP Crit Value Called To Crit Value Called By Crit Value Read Back Blood Gas Notified Time Potassium Carbon Dioxide Anion Gap BUN Creatinine Est GFR ( Amer) Est GFR (Non-Af Amer) Random Glucose Calcium Total Bilirubin AST ALT Alkaline Phosphatase Troponin I NT-Pro-B Natriuret Pep Total Protein Albumin Globulin Albumin/Globulin Ratio Arterial Blood Potassium
[2018-07-08] MEDS ORDERED: Patient's Own Med (Lactulose 10 GM) PO PRN (03:37)
[2018-07-08] MEDS ORDERED: Albuterol 0.083% Inhal Sol (2.5 mg/3 mL) UD INH PRN (03:44)
[2018-07-08] MEDS ORDERED: PROPOFOL 10 MG/ML IV ONE (03:45)
[2018-07-08] MEDS ORDERED: Lactulose 10 gm/15 ml Syrup PO PRN (03:46)
[2018-07-08 04:06] LABS: ABG ALLEN TEST YES; ARTERIAL BLOOD GAS HCO3 31.6 mmol/L (21-28); ARTERIAL BLOOD GAS HEMOGLOBIN 10.7 g/dL (11.7-17.4); ARTERIAL BLOOD GAS O2 CONTENT 15.1 ML/dL (15-23); ARTERIAL BLOOD GAS O2 SAT 100.4 % (95-98); ARTERIAL BLOOD GAS PCO2 98 mm/Hg (35-45); ARTERIAL BLOOD GAS PH 7.21 (7.35-7.45); ARTERIAL BLOOD GAS PO2 215 mm/Hg (80-100); ARTERIAL BLOOD GAS TCO2 42.2 mmol/L (22-28)
[2018-07-08] MEDS ORDERED: Propofol 10 mg/ml Inj (20 ML) IV ONE (04:17)
[2018-07-08] MEDS ORDERED: Propofol 10 mg/ml 2,000 MG/200 ML VIAL ONE (04:19)
[2018-07-08 04:22] VITALS: BMI 31.3
[2018-07-08] MEDS: Propofol 10 mg/ml 1,000 MG/100 ML VIAL IV SCH ×3 (04:35→13:55)
--- NOTE | 2018-07-08 05:43 | ED PDOC ---
HPI: SOB/CHF/COPD Time Seen by Provider: 07/07/18 23:58 Chief Complaint (Nursing): Respiratory Distress Chief Complaint (Provider): Respiratory Distress History Per: Family () History/Exam Limitations: clinical condition Onset/Duration Of Symptoms: Gradual (over the last day) Current Symptoms Are (Timing): Still Present Associated Symptoms: Sweating Additional Complaint(s): 88 year old male with a history of CHF, COPD and CAD presents to the ED via EMS for worsening shortness of breath over the last day. His called EMS because the patient was having difficulty breathing. On arrival of EMS, patient was diaphoretic, tripoding and speaking in 3-4 word sentences. Patient was immediately placed on CPAP and brought to the ER. History is limited due to acuity of condition. PMD: Dr. Torrey Branch - Risk Factors PE Risk Factors: Pos: CHF Past Medical History Reviewed: Historical Data, Nursing Documentation, Vital Signs Vital Signs: Last Vital Signs Temp 98.9 F 07/07/18 23:59 Pulse 99 H 07/08/18 04:19 Resp 16 07/08/18 04:19 BP 137/69 07/08/18 04:19 Pulse Ox 100 07/08/18 04:19 - Medical History PMH: Atrial Fibrillation, Bronchitis, CHF, COPD, HTN, Hypercholesterolemia, Peripheral Edema Denies: HIV, Chronic Kidney Disease - Surgical History Surgical History: Back Surgery (Laminectomy L3-L5 05/15/2017) - Family History Family History: States: Unknown Family Hx - Immunization History Hx Tetanus Toxoid Vaccination: No Hx Influenza Vaccination: No Hx Pneumococcal Vaccination: No - Home Medications Home Medications: Ambulatory Orders Medication Instructions Recorded Aspirin [Ecotrin] 81 mg PO DAILY 04/27/17 Atorvastatin [Lipitor] 20 mg PO HS 04/27/17 Docusate [Colace] 100 mg PO BID cap 05/18/17 Tiotropium [Spiriva] 18 mcg IH DAILY 06/04/18 Albuterol/Ipratropium [Duoneb 3 3 ml INH RQID neb 06/09/18 mg/0.5 mg (3 ml) UD] Ammonium Lactate 12% [Lac-Hydrin 1 appl TOP TID 06/15/18 12% Lotion (225 g)] Furosemide [Lasix] 40 mg PO DAILY 06/15/18 Sennosides [Senna] 8.6 mg PO BID 06/15/18 Albuterol HFA [Ventolin HFA 90 2 puff INH RQ8 PRN inhaler 06/30/18 mcg/actuation (8 g)] Lactulose [Enulose] 10 gm PO DAILY PRN udc 06/30/18 Magnesium Oxide [Mag-Ox] 400 mg PO DAILY tab 06/30/18 Metoprolol Tartrate [Lopressor] 25 mg PO Q12 tab 06/30/18 Pantoprazole [Protonix EC Tab] 40 mg PO DAILY ect 06/30/18 Pyridostigmine [Mestinon Tab] 30 mg PO TID tab 06/30/18 Spironolactone [Aldactone] 25 mg PO BID tab 06/30/18 - Allergies Allergies/Adverse Reactions: Allergies Allergy/AdvReac Type Severity Reaction Status Date / Time No Known Allergies Allergy Verified 07/07/18 23:59 Review of Systems ROS Statement: Except As Marked, All Systems Reviewed And Found Negative Constitutional: Positive for: Sweats Respiratory: Positive for: Shortness of Breath Physical Exam - Reviewed Nursing Documentation Reviewed: Yes Vital Signs Reviewed: Yes - Physical Exam Appears: Positive for: In Acute Distress Head Exam: Positive for: ATRAUMATIC, NORMAL INSPECTION, NORMOCEPHALIC Skin: Positive for: Normal Color, Warm, Dry Eye Exam: Positive for: EOMI, Normal appearance, PERRL Neck: Positive for: Normal, Painless ROM Cardiovascular/Chest: Positive for: Tachycardia, Irregularly Irregular Respiratory: Positive for: Decreased Breath Sounds, Accessory Muscle Use, Crackles (on right side), Rales, Rhonchi, Respiratory Distress, Other (tac hypneic) Extremity: Positive for: Swelling (2+ pitting edema to bilateral knees) Neurological/Psych: Positive for: Awake, Normal Tone, Other (patient is confused). Negative for: Oriented - Laboratory Results Result Diagrams: 07/08/18 00:19 07/08/18 00:19 Lab Results: pCO2 98 mm/Hg (35-45) H* 07/08/18 04:02 pO2 215 mm/Hg (80-100) H 07/08/18 04:02 HCO3 31.6 mmol/L (21-28) H 07/08/18 04:02 ABG pH 7.21 (7.35-7.45) L 07/08/18 04:02 ABG Total CO2 42.2 mmol/L (22-28) H 07/08/18 04:02 ABG O2 Saturation 100.4 % (95-98) H 07/08/18 04:02 ABG O2 Content 15.1 ML/dL (15-23) 07/08/18 04:02 ABG Base Excess 8.5 mmol/L (-2.0-3.0) H 07/08/18 04:02 ABG Hemoglobin 10.7 g/dL (11.7-17.4) L 07/08/18 04:02 ABG Carboxyhemoglobin 1.9 % (0.5-1.5) H 07/08/18 04:02 POC ABG HHb (Measured) -0.4 % (0.0-5.0) L 07/08/18 04:02 ABG Methemoglobin 1.6 % (0.0-3.0) 07/08/18 04:02 ABG O2 Capacity 15.0 mL/dL (16-24) L 07/08/18 04:02 Nam Test Yes 07/08/18 04:02 ABG Potassium 4.8 mmol/L (3.6-5.2) 07/08/18 00:19 A-a O2 Difference 376.0 mm/Hg 07/08/18 04:02 Hgb O2 Saturation 96.9 % (95.0-98.0) 07/08/18 04:02 Sodium 138.0 mmol/L (132-148) 07/08/18 00:19 Chloride 103.0 mmol/L (98-107) 07/08/18 00:19 Glucose 168 mg/dL (75-110) H 07/08/18 00:19 Lactate 0.7 mmol/L (0.7-2.1) 07/08/18 00:19 Vent Mode A/c 07/08/18 04:02 Mechanical Rate 16 07/08/18 04:02 FiO2 100.0 % 07/08/18 04:02 Tidal Volume 450 07/08/18 04:02 PEEP 5 07/08/18 04:02 Inspiratory BiPAP 12 07/08/18 00:19 Expiratory BiPAP 6 07/08/18 00:19 Crit Value Called To Adriana osullivan rn 07/08/18 04:02 Crit Value Called By Dorothy 07/08/18 04:02 Crit Value Read Back Y 07/08/18 04:02 Blood Gas Notified Time 406 07/08/18 04:02 PT 12.6 Seconds (9.8-13.1) 07/08/18 00:19 INR 1.1 07/08/18 00:19 APTT 32.7 Seconds (25.6-37.1) 07/08/18 00:19 Troponin I < 0.0120 ng/mL (0.00-0.120) 07/08/18 00:19 NT-Pro-B Natriuret Pep 5580 pg/ml (0-900) H 07/08/18 00:19 Total Bilirubin 0.5 mg/dl (0.2-1.3) 07/08/18 00:19 AST 26 U/L (17-59) 07/08/18 00:19 ALT 27 U/L (21-72) 07/08/18 00:19 Alkaline Phosphatase 83 U/L (38-126) 07/08/18 00:19 Total Protein 7.9 G/DL (6.3-8.2) 07/08/18 00:19 Albumin 4.3 g/dL (3.5-5.0) 07/08/18 00:19 Globulin 3.6 gm/dL (2.2-3.9) 07/08/18 00:19 Albumin/Globulin Ratio 1.2 (1.0-2.1) 07/08/18 00:19 - ECG O2 Sat by Pulse Oximetry: 100 (RA) Pulse Ox Interpretation: Normal - Critical Care Total Time (In Min): 90 Documented Critical Care: Time excludes all time spent performint seperately billable procedures Medical Decision Making Medical Decision Makin:15 Impression: respiratory distress likely secondary to CHF and fluid overload Given leg swelling, crackles and elevated BNP, patient placed on BiPAP immediately Remained tachypneic Decision made to intubate patient to protect air way. Used [employer] segment assembler to communicate plan of care with . Dr. Pradhan at bedside during procedure Orders: --ABG --EKG --CMP --Troponin --CBC --PTT --PT --CXR --Lasix 60 mg IVP --Blood cx Patient was successfully intubated after one attempt. Will admit to ICU. Unable to reach Dr. Branch at this time. Scribe Attestation: Documented by Herlinda Enciso, acting as a scribe Nolan Pond MD Provider Scribe Attestation: All medical record entries made by the Scribe were at my direction and personally dictated by me. I have reviewed the chart and agree that the record accurately reflects my personal performance of the history, physical exam, medical decision making, and the department course for this patient. I have also personally directed, reviewed, and agree with the discharge instructions and disposition. Disposition - Clinical Impression Clinical Impression: Respiratory distress, CHF (congestive heart failure), Atrial fibrillation - Patient ED Disposition Is Patient to be Admitted: Yes - Disposition Disposition Time: 01:00 Condition: CRITICAL Procedure: Intubation - Time Performed Time Performed: 02:09 - Time Out Time Out: Patient ID confirmed - Consent Obtained Consent obtained: Emergent consent implied - Performed By Performed by: Attending Physician - Indications Indication(s):: Respiratory failure, Hypercarbia - Method Method:: Oral-Laryngoscopy - Rapid Sequence Intubation Anesthetic:: Etomidate Paralytic:: Succinylcholine Pretreatment:: Pre-oxygenation - Tube type Tube type:: Endotracheal tube Tube size:: Cuffed Number of attempts:: 1 Depth measured at lip: cm: 23 - Confirmation Confirmation: Direct visual.of intubate, End-tidal CO2 positive, Bilat. breath sounds - Post-intubation CXR Post-intubation CXR: Tube in good position - ABG Ordered ABG ordered:: Yes
[2018-07-08] MEDS ORDERED: Albuterol-Ipratrop 3 mg / 0.5 (3 ml) UD INH SCH (08:00)
[2018-07-08] MEDS ORDERED: Albuterol 0.083% Inhal Sol (2.5 mg/3 mL) UD INH SCH (08:00)
[2018-07-08] MEDS: Acetaminophen 650mg/20.3ml solution UD NG PRN (08:13)
[2018-07-08] MEDS: Cefepime 2 GM in Sodium Chloride 0.9% 100 ML IVPB SCH ×2 (08:30→20:52)
[2018-07-08] MEDS: Magnesium Oxide 400 mg Tab UD PO SCH (08:30)
[2018-07-08] MEDS: Enoxaparin 40 mg Syringe SC SCH (08:30)
[2018-07-08] MEDS: Pantoprazole 40 mg EC Tab PO SCH (08:31)
--- NOTE | 2018-07-08 08:39 | CP.CCUPN ---
<CasselberryWoolrich - Last Filed: 07/08/18 13:27> CCU Subjective - Physician Review Subjective (Free Text): 07/08/18 9:27 88 yo Male with PMHx of HTN, HLD, COPD, pulmonary hypertension, HFpEF, s/p TAVR, Chronic A-fib (Eliquis on hold due to +FOBT?), recurrent pleural effusion, admitted 4 time over the past month was brought in by EMS for SOB. Was discharged earlier this month after being treated fpr ANTHONY and CHF exacerbation s/p right thoracenthesis 3 weeks ago. Patients states patient has been feeling shortness of breath for last few days. In the ER, patient was diaphoretic, tripoding and speaking in short sentences. Patient was initially placed on BIPAP, however he was confused, tachypneic, and saturating in 80s on 100% FiO2. Patient was subsequently intubated in ED and admitted to ICU for further management. Per daughter in law, patient was using home oxygen but was not using nebulizer machine due to insurance not covering it. Patient also have long history of alcohol use disorder. Patient drinks gallon of wine every day for last 40+ years. Patient seen and evaluated this AM in ICU Intubated with vent setting of PRVC AC TV 450, RR 10, PEEP5, FiO2 70% Sedated Had fever of 102 F this morning, BP low normal with HR in 80-90s. Has OG tube placed Hyde in placed draining yellow colored urine CCU Objective - Vital Signs / Intake & Output Vital Signs (Last 4 hours): Vital Signs Temp Pulse Resp BP Pulse Ox 07/08/18 08:35 159/76 H 07/08/18 08:29 115 H 159/76 H 07/08/18 08:13 103 F H 07/08/18 08:00 102.9 F H 07/08/18 07:00 114 H 24 153/73 H 98 07/08/18 06:43 100 07/08/18 06:00 115 H 16 151/85 H 100 Intake and Output (Last 8hrs): Intake & Output 07/07/18 07/08/18 07/08/18 22:59 06:59 14:59 Intake Total 10 10 Output Total 490 50 Balance -480 -40 Weight 87.997 kg Intake: IV 10 10 Output: Urine 490 50 Urethral (Hyde) 255 50 Other: # Bowel Movements 1 - Physical Exam Physical Exam Limitations: Positive for: Altered Mental Status, Other (sedated) Pupils: Positive for: PERRL Respiratory/Chest: Positive for: Other (orally intubated; Rales on B/L lower lung field) Cardiovascular: Positive for: Irregular Rhythm Abdomen: Positive for: Distention, Normal Bowel Sounds. Negative for: Tenderness, Peritoneal Signs Upper Extremity: Positive for: Normal Inspection Lower Extremity: Positive for: Other (Moderate erythema and swelling of right lower extermity. has mild swelling on left lower extremity. ) Skin: Positive for: Warm Psychiatric: Negative for: Alert - Medications Active Medications: Active Medications Generic Name Dose Route Start Last Admin Trade Name Freq PRN Reason Stop Dose Admin Acetaminophen 650 mg 07/08/18 08:01 07/08/18 08:13 Tylenol 650mg/20.3ml Solution Ud NG 650 mg Q6 PRN Administration Fever>100.4F Albuterol/Ipratropium 3 ml 07/08/18 08:00 07/08/18 08:07 Duoneb 3 Mg/0.5 Mg (3 Ml) Ud INH 3 ml RQID LISSA Administration Aspirin 81 mg 07/08/18 09:00 07/08/18 08:29 Ecotrin PO 81 mg DAILY LISSA Administration Atorvastatin Calcium 20 mg 07/08/18 22:00 Lipitor PO HS LISSA Docusate Sodium 100 mg 07/08/18 09:00 07/08/18 08:28 Colace PO Not Given BID LSISA Enoxaparin Sodium 40 mg 07/08/18 09:00 07/08/18 08:30 Lovenox SC 40 mg DAILY LISSA Administration Protocol Furosemide 40 mg 07/08/18 09:00 07/08/18 08:35 Lasix IVP 40 mg BID LISSA Administration Propofol 1,000 mg in 100 mls @ 2.64 mls/hr 07/08/18 04:30 07/08/18 07:59 Diprivan IV 07/09/18 04:27 15 mcg/kg/min .Q24H LISSA 7.92 mls/hr Titration Protocol 5 MCG/KG/MIN Cefepime HCl 2 gm/ Sodium 100 mls @ 100 mls/hr 07/08/18 07:15 07/08/18 08:30 Chloride IVPB 100 mls/hr Q12 LISSA Administration Protocol Vancomycin HCl 1 gm/ Sodium 250 mls @ 166.667 mls/hr 07/08/18 07:30 07/08/18 08:32 Chloride IVPB 07/08/18 08:59 166.667 mls/hr ONCE ONE Administration Protocol Vancomycin HCl 750 mg/ Sodium 250 mls @ 166.667 mls/hr 07/08/18 21:00 Chloride IVPB Q12 LISSA Protocol Lactic Acid 1 applic 07/08/18 09:00 07/08/18 08:29 Lac-Hydrin 12% Lotion (225 G) TOP 1 applic TID LISSA Administration Lactulose 10 gm 07/08/18 03:46 Enulose PO DAILY PRN Constipation Magnesium Oxide 400 mg 07/08/18 09:00 07/08/18 08:30 Mag-Ox PO 400 mg DAILY LISSA Administration Metoprolol Tartrate 25 mg 07/08/18 09:00 07/08/18 08:29 Lopressor PO 25 mg Q12 LISSA Administration Morphine Sulfate 2 mg 07/08/18 03:44 Morphine IVP Q4H PRN Pain, severe (8-10) Ondansetron HCl 4 mg 07/08/18 03:44 Zofran Inj IVP Q6H PRN Nausea/Vomiting Pantoprazole Sodium 40 mg 07/08/18 09:00 07/08/18 08:31 Protonix Ec Tab PO 40 mg DAILY LISSA Administration Pyridostigmine [place] 30 mg 07/08/18 09:00 07/08/18 08:31 Mestinon Tab PO 30 mg TID LISSA Administration Sennosides 8.6 mg 07/08/18 09:00 07/08/18 08:32 Senokot Tab PO Not Given BID [facility] Spironolactone 25 mg 07/08/18 09:00 07/08/18 08:28 Aldactone PO 25 mg BID LISSA Administration - Patient Studies Lab Studies: Lab Studies 07/08/18 07/08/18 07/08/18 Range/Units 04:02 00: 00:19 WBC 9.8 D (4.8-10.8) K/uL RBC 3.71 L (4.40-5.90) Mil/uL Hgb 11.0 L (12.0-18.0) g/dL Hct 35.7 (35.0-51.0) % MCV 96.3 H (80.0-94.0) fl MCH 29.6 (27.0-31.0) pg MCHC 30.7 L (33.0-37.0) g/dL RDW 16.4 H (11.5-14.5) % Plt Count 246 (130-400) K/uL MPV 8.5 (7.2-11.7) fl Neut % (Auto) 71.7 (50.0-75.0) % Lymph % (Auto) 10.9 L (20.0-40.0) % Daniels % (Auto) 16.6 H (0.0-10.0) % Eos % (Auto) 0.3 (0.0-4.0) % Baso % (Auto) 0.5 (0.0-2.0) % Neut # (Auto) 7.1 H (1.8-7.0) K/uL Lymph # (Auto) 1.1 (1.0-4.3) K/uL Daniels # (Auto) 1.6 H (0.0-0.8) K/uL Eos # (Auto) 0.0 (0.0-0.7) K/uL Baso # (Auto) 0.0 (0.0-0.2) K/uL PT 12.6 (9.8-13.1) Seconds INR 1.1 APTT 32.7 (25.6-37.1) Seconds pCO2 98 H* (35-45) mm/Hg pO2 215 H (80-100) mm/Hg HCO3 31.6 H (21-28) mmol/L ABG pH 7.21 L (7.35-7.45) ABG Total CO2 42.2 H (22-28) mmol/L ABG O2 Saturation 100.4 H (95-98) % ABG O2 Content 15.1 (15-23) ML/dL ABG Base Excess 8.5 H (-2.0-3.0) mmol/L ABG Hemoglobin 10.7 L (11.7-17.4) g/dL ABG Carboxyhemoglobin 1.9 H (0.5-1.5) % POC ABG HHb (Measured) -0.4 L (0.0-5.0) % ABG Methemoglobin 1.6 (0.0-3.0) % ABG O2 Capacity 15.0 L (16-24) mL/dL Nam Test Yes ABG Potassium (3.6-5.2) mmol/L A-a O2 Difference 376.0 mm/Hg Hgb O2 Saturation 96.9 (95.0-98.0) % Sodium (132-148) mmol/L Chloride (98-107) mmol/L Glucose (75-110) mg/dL Lactate (0.7-2.1) mmol/L Vent Mode A/c Mechanical Rate 16 FiO2 100.0 % Tidal Volume 450 PEEP 5 Inspiratory BiPAP Expiratory BiPAP Crit Value Called To Adriana osullivan rn Crit Value Called By [id number] Crit Value Read Back Y Blood Gas Notified Time 406 Potassium (3.6-5.0) MMOL/L Carbon Dioxide (22-30) mmol/L Anion Gap (10-20) BUN (9-20) mg/dl Creatinine (0.8-1.5) mg/dl Est GFR ( Amer) Est GFR (Non-Af Amer) Random Glucose (75-110) mg/dL Calcium (8.4-10.2) mg/dL Total Bilirubin (0.2-1.3) mg/dl AST (17-59) U/L ALT (21-72) U/L Alkaline Phosphatase (38-126) U/L Troponin I (0.00-0.120) ng/mL NT-Pro-B Natriuret Pep (0-900) pg/ml Total Protein (6.3-8.2) G/DL Albumin (3.5-5.0) g/dL Globulin (2.2-3.9) gm/dL Albumin/Globulin Ratio (1.0-2.1) Arterial Blood Potassium (3.6-5.2) mmol/L 07/08/18 07/08/18 Range/Units 00:19 00:19 WBC (4.8-10.8) K/uL RBC (4.40-5.90) Mil/uL Hgb (12.0-18.0) g/dL Hct (35.0-51.0) % MCV (80.0-94.0) fl MCH (27.0-31.0) pg MCHC (33.0-37.0) g/dL RDW (11.5-14.5) % Plt Count (130-400) K/uL MPV (7.2-11.7) fl Neut % (Auto) (50.0-75.0) % Lymph % (Auto) (20.0-40.0) % Daniels % (Auto) (0.0-10.0) % Eos % (Auto) (0.0-4.0) % Baso % (Auto) (0.0-2.0) % Neut # (Auto) (1.8-7.0) K/uL Lymph # (Auto) (1.0-4.3) K/uL Daniels # (Auto) (0.0-0.8) K/uL Eos # (Auto) (0.0-0.7) K/uL Baso # (Auto) (0.0-0.2) K/uL PT (9.8-13.1) Seconds INR APTT (25.6-37.1) Seconds pCO2 116 H* (35-45) mm/Hg pO2 46 L (80-100) mm/Hg HCO3 28.9 H (21-28) mmol/L ABG pH 7.14 L* (7.35-7.45) ABG Total CO2 43.1 H (22-28) mmol/L ABG O2 Saturation 85.3 L (95-98) % ABG O2 Content (15-23) ML/dL ABG Base Excess 6.2 H (-2.0-3.0) mmol/L ABG Hemoglobin (11.7-17.4) g/dL ABG Carboxyhemoglobin (0.5-1.5) % POC ABG HHb (Measured) (0.0-5.0) % ABG Methemoglobin (0.0-3.0) % ABG O2 Capacity (16-24) mL/dL Nam Test Yes ABG Potassium 4.8 (3.6-5.2) mmol/L A-a O2 Difference 522.0 mm/Hg Hgb O2 Saturation (95.0-98.0) % Sodium 140 138.0 (132-148) mmol/L Chloride 100 103.0 (98-107) mmol/L Glucose 168 H (75-110) mg/dL Lactate 0.7 (0.7-2.1) mmol/L Vent Mode Bipap Mechanical Rate 16 FiO2 100.0 % Tidal Volume PEEP Inspiratory BiPAP 12 Expiratory BiPAP 6 Crit Value Called To Jas sanders md Crit Value Called By Leland Crit Value Read Back Y Blood Gas Notified Time 25 Potassium 4.7 (3.6-5.0) MMOL/L Carbon Dioxide 36 H (22-30) mmol/L Anion Gap 9 L (10-20) BUN 18 (9-20) mg/dl Creatinine 0.9 (0.8-1.5) mg/dl Est GFR ( Amer) > 60 Est GFR (Non-Af Amer) > 60 Random Glucose 173 H (75-110) mg/dL Calcium 8.8 (8.4-10.2) mg/dL Total Bilirubin 0.5 (0.2-1.3) mg/dl AST 26 (17-59) U/L ALT 27 (21-72) U/L Alkaline Phosphatase 83 (38-126) U/L Troponin I < 0.0120 (0.00-0.120) ng/mL NT-Pro-B Natriuret Pep 5580 H (0-900) pg/ml Total Protein 7.9 (6.3-8.2) G/DL Albumin 4.3 (3.5-5.0) g/dL Globulin 3.6 (2.2-3.9) gm/dL Albumin/Globulin Ratio 1.2 (1.0-2.1) Arterial Blood Potassium 4.8 (3.6-5.2) mmol/L Laboratory Results - last 24 hr 07/08/18 07/08/18 07/08/18 00:19 00:19 00:19 WBC 9.8 D RBC 3.71 L Hgb 11.0 L Hct 35.7 MCV 96.3 H MCH 29.6 MCHC 30.7 L RDW 16.4 H Plt Count 246 MPV 8.5 Neut % (Auto) 71.7 Lymph % (Auto) 10.9 L Daniels % (Auto) 16.6 H Eos % (Auto) 0.3 Baso % (Auto) 0.5 Neut # (Auto) 7.1 H Lymph # (Auto) 1.1 Daniels # (Auto) 1.6 H Eos # (Auto) 0.0 Baso # (Auto) 0.0 PT INR APTT pCO2 116 H* pO2 46 L HCO3 28.9 H ABG pH 7.14 L* ABG Total CO2 43.1 H ABG O2 Saturation 85.3 L ABG O2 Content ABG Base Excess 6.2 H ABG Hemoglobin ABG Carboxyhemoglobin POC ABG HHb (Measured) ABG Methemoglobin ABG O2 Capacity Nam Test Yes ABG Potassium 4.8 A-a O2 Difference 522.0 Hgb O2 Saturation Sodium 138.0 140 Chloride 103.0 100 Glucose 168 H Lactate 0.7 Vent Mode Bipap Mechanical Rate 16 FiO2 100.0 Tidal Volume PEEP Inspiratory BiPAP 12 Expiratory BiPAP 6 Crit Value Called To Jas sanders md Crit Value Called By Leland Crit Value Read Back Y Blood Gas Notified Time 25 Potassium 4.7 Carbon Dioxide 36 H Anion Gap 9 L BUN 18 Creatinine 0.9 Est GFR ( Amer) > 60 Est GFR (Non-Af Amer) > 60 Random Glucose 173 H Calcium 8.8 Total Bilirubin 0.5 AST 26 ALT 27 Alkaline Phosphatase 83 Troponin I < 0.0120 NT-Pro-B Natriuret Pep 5580 H Total Protein 7.9 Albumin 4.3 Globulin 3.6 Albumin/Globulin Ratio 1.2 Arterial Blood Potassium 4.8 07/08/18 07/08/18 00:19 04:02 WBC RBC Hgb Hct MCV MCH MCHC RDW Plt Count MPV Neut % (Auto) Lymph % (Auto) Daniels % (Auto) Eos % (Auto) Baso % (Auto) Neut # (Auto) Lymph # (Auto) Daniels # (Auto) Eos # (Auto) Baso # (Auto) PT 12.6 INR 1.1 APTT 32.7 pCO2 98 H* pO2 215 H HCO3 31.6 H ABG pH 7.21 L ABG Total CO2 42.2 H ABG O2 Saturation 100.4 H ABG O2 Content 15.1 ABG Base Excess 8.5 H ABG Hemoglobin 10.7 L ABG Carboxyhemoglobin 1.9 H POC ABG HHb (Measured) -0.4 L ABG Methemoglobin 1.6 ABG O2 Capacity 15.0 L Nam Test Yes ABG Potassium A-a O2 Difference 376.0 Hgb O2 Saturation 96.9 Sodium Chloride Glucose Lactate Vent Mode A/c Mechanical Rate 16 FiO2 100.0 Tidal Volume 450 PEEP 5 Inspiratory BiPAP Expiratory BiPAP Crit Value Called To Adriana osullivan rn Crit Value Called By [id number] Crit Value Read Back Y Blood Gas Notified Time 406 Potassium Carbon Dioxide Anion Gap BUN Creatinine Est GFR ( Amer) Est GFR (Non-Af Amer) Random Glucose Calcium Total Bilirubin AST ALT Alkaline Phosphatase Troponin I NT-Pro-B Natriuret Pep Total Protein Albumin Globulin Albumin/Globulin Ratio Arterial Blood Potassium EKG/Cardiology Studies: Cardiology / EKG Studies 07/08/18 ELECTROCARDIOGRAM Stat Comment: Mode Of Transportation: Reason For Exam: SOB Review of Systems - Review of Systems Review of Systems: Unable to perform ROS due to s/p intubated. Assessment/Plan - Assessment and Plan (Free Text) Assessment: 88 yo Male with PMHx of HTN, HLD, COPD, pulmonary hypertension, HFpEF, s/p TAVR, Chronic A-fib (Eliquis on hold due to +FOBT?), recurrent pleural effusion admitted to ICU for acute hypoxemic hypercapneic respiratory failure. Acute hypoxemic hypercapneic respiratory failure likely secondary to CHF exacerbation vs HAP -s/p intubation with Vent seeting of PRVC AC TV 450, RR 12, PEEP 5, FiO2 of 70% -CXR shows left sided lower lobe haziness/effusion -Start vancomycin 1 gm stat -start Vancomycin 750 mg q12 -Start maxipime 2mg q12 -Serial ABGs -pulmonary toilets -Duoneb q6 hrs -ID consult: Dr. Grewal -Pulmonary consult: Dr. Dickens -f/u chest CT, blood cx and sputum cx -AM labs Acute CHF exacerbation -HFpEF (ECHO on 06/16/18 shows EF 55-60%, LA severely dilated, Moderate aortic valve stenosis) -ProBNP 5580 -s/p Lasix 60 mg IVPB in ED -c/w lasix 40 mg Q12 -Cardiology consult: Dr. Santos -f/u AM labs Lower extremity erythema and swelling (R>L) -B/L duplex US: neg for DVT -on Vancomycin 750 mg q12 -f/u AM labs Diarrhea -Stool culture, C diff toxins, Stool Ova and parasite Hx Atrial fibrillation and Aortic stenosis s/p TAVR -C/W metoprolol 25 mg q12 -Not on AC due to +FOBT in 05/2018 Alcohol use disorder -start thiamin and folic acid daily -Monitor EtOH withdrawal symptoms Diet: -OG Tube feeds, pulmocare start @30 cc/hr with goal of 55 cc/hr GI prophylaxis -Protononix 40 mg NG daily DVT prophylaxis -Lovenox 40 mg SC daily Patient seen, examined and plan discussed with Dr. Jorge Luis Rodrigues, pgy-2 <Jorge LuisPio Yun - Last Filed: 07/08/18 17:42> Assessment/Plan - Assessment and Plan (Free Text) Plan: Attestation: Patient seen and examined at the bedside with Resident Dr. Mariaa Rodrigues; and I agree with his outline of plans and management documented above as discussed on AM rounds reflecting my review of all applicable clinical data, and participation in the care of the patient throughout the day in ICU; today, July 08, 2018. Time spent with this patient did not overlap with any other provider's medical or critical care time. Additionally the code selected for the services rendered in this note includes the time spent: talking to the patients family, associated physicians and reviewing hospital data/results not listed here which extended to a total of 40 minutes of critical care.
[2018-07-08 09:18] LABS: HEMOGLOBIN 10.1 g/dL (12.0-18.0); MEAN CELL VOLUME 94.5 fl (80.0-94.0); MEAN CORPUSCULAR HEMOGLOBIN 29.4 pg (27.0-31.0); MEAN CORPUSCULAR HGB CONC 31.1 g/dL (33.0-37.0); RBC 3.42 Mil/uL (4.40-5.90); RED CELL DISTRIBUTION WIDTH 16.1 % (11.5-14.5); WHITE BLOOD COUNT 15.6 K/uL (4.8-10.8)
--- NOTE | 2018-07-08 09:26 | CP.PCM.CON ---
History of Present Illness - History of Present Illness History of Present Illness: 88 year old male, recently discharged, now admitted through the emergency room because of respiratory failure (acute hypercapnic) and suspected left pleural effusion/CHF. Had been home only a short time when he developed rapid onset of SOB the day of admission. He had apparently been doing well up to that time when his symptoms rapidly progressed without chest pain or hemoptysis and resulted in coming to ER via ambulance severely SOB with PaCO2 114, PaO2 46 and pH 7.14. He is presently intubated and sedated but his and [id number] are present at the bedside. Further history is obtained from the [id number] which includes excessive consumption of wine on a regular/daily basis. Past Patient History - Infectious Disease Hx of Infectious Diseases: None - Past Medical History & Family History Past Medical History?: Yes - Past Social History Smoking Status: Former Smoker Chewing Tobacco Use: No Cigar Use: No Alcohol: > 2 Drinks/Day Drugs: Denies Home Situation {Lives}: With Family - CARDIAC Hx Atrial Fibrillation: Yes Hx Congestive Heart Failure: Yes Hx Hypercholesterolemia: Yes Hx Hypertension: Yes Hx Peripheral Edema: Yes - PULMONARY Hx Bronchitis: Yes Hx Chronic Obstructive Pulmonary Disease (COPD): Yes Other/Comment: pleural effusion. - NEUROLOGICAL Hx Neurological Disorder: No - HEENT Hx HEENT Problems: No - RENAL Hx Chronic Kidney Disease: No - ENDOCRINE/METABOLIC Hx Endocrine Disorders: No - HEMATOLOGICAL/ONCOLOGICAL Hx Human Immunodeficiency Virus (HIV): No - INTEGUMENTARY Other/Comment: skin lesion recently removed from left infra-ocular area - MUSCULOSKELETAL/RHEUMATOLOGICAL Hx Arthritis: Yes Hx Back Pain: Yes Hx Herniated Disk: Yes - GASTROINTESTINAL Hx Diarrhea: Yes Other/Comment: ileus - GENITOURINARY/GYNECOLOGICAL Hx Genitourinary Disorders: No - PSYCHIATRIC Hx Psychophysiologic Disorder: No - SURGICAL HISTORY Hx Valve Replacement: Yes (TAVR) Other/Comment: Laminectomy L3-L5 05/15/2017 - ANESTHESIA Hx Anesthesia: Yes Hx Anesthesia Reactions: No Hx Malignant Hyperthermia: No Meds Allergies/Adverse Reactions: Allergies Allergy/AdvReac Type Severity Reaction Status Date / Time No Known Allergies Allergy Verified 07/07/18 23:59 - Medications Medications: Current Medications Acetaminophen (Tylenol 650mg/20.3ml Solution Ud) 650 mg NG Q6 PRN PRN Reason: Fever>100.4F Last Admin: 07/08/18 08:13 Dose: 650 mg Albuterol/Ipratropium (Duoneb 3 Mg/0.5 Mg (3 Ml) Ud) 3 ml INH RQ6 LISSA Aspirin (Ecotrin) 81 mg PO DAILY [facility] Last Admin: 07/08/18 08:29 Dose: 81 mg Atorvastatin Calcium (Lipitor) 20 mg PO HS [facility] Docusate Sodium (Colace) 100 mg PO BID [facility] Last Admin: 07/08/18 08:28 Dose: Not Given Enoxaparin Sodium (Lovenox) 40 mg SC DAILY [facility]; Protocol Last Admin: 07/08/18 08:30 Dose: 40 mg Furosemide (Lasix) 40 mg IVP BID [facility] Last Admin: 07/08/18 08:35 Dose: 40 mg Propofol (Diprivan) 1,000 mg in 100 mls @ 2.64 mls/hr IV .Q24H [facility]; Protocol Stop: 07/09/18 04:27 Last Titration: 07/08/18 09:09 Dose: 20 mcg/kg/min, 10.56 mls/hr Cefepime HCl 2 gm/ Sodium (Chloride) 100 mls @ 100 mls/hr IVPB Q12 [facility]; Protocol Last Admin: 07/08/18 08:30 Dose: 100 mls/hr Vancomycin HCl 750 mg/ Sodium (Chloride) 250 mls @ 166.667 mls/hr IVPB Q12 [facility]; Protocol Lactic Acid (Lac-Hydrin 12% Lotion (225 G)) 1 applic TOP TID [facility] Last Admin: 07/08/18 08:29 Dose: 1 applic Lactulose (Enulose) 10 gm PO DAILY PRN PRN Reason: Constipation Magnesium Oxide (Mag-Ox) 400 mg PO DAILY [facility] Last Admin: 07/08/18 08:30 Dose: 400 mg Metoprolol Tartrate (Lopressor) 25 mg PO Q12 [facility] Last Admin: 07/08/18 08:29 Dose: 25 mg Morphine Sulfate (Morphine) 2 mg IVP Q4H PRN PRN Reason: Pain, severe (8-10) Ondansetron HCl (Zofran Inj) 4 mg IVP Q6H PRN PRN Reason: Nausea/Vomiting Pantoprazole Sodium (Protonix Ec Tab) 40 mg PO DAILY [facility] Last Admin: 07/08/18 08:31 Dose: 40 mg Pyridostigmine [place] (Mestinon Tab) 30 mg PO TID [facility] Last Admin: 07/08/18 08:31 Dose: 30 mg Sennosides (Senokot Tab) 8.6 mg PO BID [facility] Last Admin: 07/08/18 08:32 Dose: Not Given Spironolactone (Aldactone) 25 mg PO BID [facility] Last Admin: 07/08/18 08:28 Dose: 25 mg Physical Exam - Additional Findings Additional findings: Sedated, orally intubated and mechanically ventilated. Conjunctivae are pink and there is no scleral icterus. The neck is supple and trachea midline. Nares are patent bilaterally. No dullness on percussion of the anterior thorax. Breath sounds are diminished bilaterally without audible wheezes. Sonorous rhonchi are heard in both lungs in dependent zones. Breath sounds appear to be more decreased on the left than the right. Heart sounds are somewhat distant and rhythm is regular. Abdomen is obese with normal bowel sounds. 2+ dependent edema is noted in the left lower extremity and 3+ on the right with marked hyperemia and blistering of the right lower extremity. Results - Vital Signs Recent Vital Signs: Last Vital Signs Temp 102.2 F H 07/08/18 09:00 Pulse 92 H 07/08/18 09:00 Resp 16 07/08/18 09:00 BP 115/52 L 07/08/18 09:00 Pulse Ox 94 L 07/08/18 09:00 - Labs Result Diagrams: 07/08/18 09:00 07/08/18 09:00 Labs: Laboratory Results - last 24 hr 07/08/18 07/08/18 07/08/18 00:19 00:19 00:19 WBC 9.8 D RBC 3.71 L Hgb 11.0 L Hct 35.7 MCV 96.3 H MCH 29.6 MCHC 30.7 L RDW 16.4 H Plt Count 246 MPV 8.5 Neut % (Auto) 71.7 Lymph % (Auto) 10.9 L [place] % (Auto) 16.6 H Eos % (Auto) 0.3 Baso % (Auto) 0.5 Neut # (Auto) 7.1 H Lymph # (Auto) 1.1 [place] # (Auto) 1.6 H Eos # (Auto) 0.0 Baso # (Auto) 0.0 PT INR APTT pCO2 116 H* pO2 46 L HCO3 28.9 H ABG pH 7.14 L* ABG Total CO2 43.1 H ABG O2 Saturation 85.3 L ABG O2 Content ABG Base Excess 6.2 H ABG Hemoglobin ABG Carboxyhemoglobin POC ABG HHb (Measured) ABG Methemoglobin ABG O2 Capacity Nam Test Yes ABG Potassium 4.8 A-a O2 Difference 522.0 Hgb O2 Saturation Sodium 138.0 140 Chloride 103.0 100 Glucose 168 H Lactate 0.7 Vent Mode Bipap Mechanical Rate 16 FiO2 100.0 Tidal Volume PEEP Inspiratory BiPAP 12 Expiratory BiPAP 6 Crit Value Called To Jas sanders md Crit Value Called By Leland Crit Value Read Back Y Blood Gas Notified Time 25 Potassium 4.7 Carbon Dioxide 36 H Anion Gap 9 L BUN 18 Creatinine 0.9 Est GFR ( Amer) > 60 Est GFR (Non-Af Amer) > 60 Random Glucose 173 H Calcium 8.8 Total Bilirubin 0.5 AST 26 ALT 27 Alkaline Phosphatase 83 Troponin I < 0.0120 NT-Pro-B Natriuret Pep 5580 H Total Protein 7.9 Albumin 4.3 Globulin 3.6 Albumin/Globulin Ratio 1.2 Arterial Blood Potassium 4.8 07/08/18 07/08/18 00:19 04:02 WBC RBC Hgb Hct MCV MCH MCHC RDW Plt Count MPV Neut % (Auto) Lymph % (Auto) [place] % (Auto) Eos % (Auto) Baso % (Auto) Neut # (Auto) Lymph # (Auto) [place] # (Auto) Eos # (Auto) Baso # (Auto) PT 12.6 INR 1.1 APTT 32.7 pCO2 98 H* pO2 215 H HCO3 31.6 H ABG pH 7.21 L ABG Total CO2 42.2 H ABG O2 Saturation 100.4 H ABG O2 Content 15.1 ABG Base Excess 8.5 H ABG Hemoglobin 10.7 L ABG Carboxyhemoglobin 1.9 H POC ABG HHb (Measured) -0.4 L ABG Methemoglobin 1.6 ABG O2 Capacity 15.0 L Nam Test Yes ABG Potassium A-a O2 Difference 376.0 Hgb O2 Saturation 96.9 Sodium Chloride Glucose Lactate Vent Mode A/c Mechanical Rate 16 FiO2 100.0 Tidal Volume 450 PEEP 5 Inspiratory BiPAP Expiratory BiPAP Crit Value Called To Adriana osullivan rn Crit Value Called By [id number] Crit Value Read Back Y Blood Gas Notified Time 406 Potassium Carbon Dioxide Anion Gap BUN Creatinine Est GFR ( Amer) Est GFR (Non-Af Amer) Random Glucose Calcium Total Bilirubin AST ALT Alkaline Phosphatase Troponin I NT-Pro-B Natriuret Pep Total Protein Albumin Globulin Albumin/Globulin Ratio Arterial Blood Potassium Assessment & Plan (1) Respiratory failure with hypoxia and hypercapnia Status: Acute Priority: High (2) Endotracheally intubated Status: Acute Priority: High (3) Pleural effusion, left Status: Suspected Priority: High (4) Dependent edema Assessment and Plan: Both LEs, right more than left. Status: Chronic Priority: High (5) Cellulitis Assessment and Plan: Left leg. Status: Acute Priority: High (6) COPD (chronic obstructive pulmonary disease) Status: Chronic Priority: High (7) Pneumonia Assessment and Plan: Left lower lobe. Status: Suspected Priority: High - Date & Time Date: 07/08/18 Time: 09:44
[2018-07-08 09:39] LABS: BLOOD UREA NITROGEN 19 mg/dl (9-20); CALCIUM 8.2 mg/dL (8.4-10.2); GFR NON-AFRICAN AMERICAN > 60
--- NOTE | 2018-07-08 10:19 | US ---
Date of service: 07/08/2018 PROCEDURE: Bilateral lower extremity venous duplex Doppler. HISTORY: B/L lower leg edema and erythema (R>L) COMPARISON: None available. TECHNIQUE: Bilateral common femoral, superficial femoral, popliteal and posterior tibial veins were evaluated. Flow was assessed with color Doppler, compressibility, assessment of phasic flow and augmentation response. FINDINGS: COMMON FEMORAL VEIN: Right CFV: Unremarkable. Left CFV: Unremarkable. SUPERFICIAL FEMORAL VEIN: Right SFV: Unremarkable. Left SFV: Unremarkable. POPLITEAL VEIN: Right Popliteal: Unremarkable. Left Popliteal: Unremarkable. POSTERIOR TIBIAL VEIN: Right PTV: Unremarkable. Left PTV: Unremarkable. OTHER FINDINGS: None. IMPRESSION: No evidence of deep venous thrombosis.
[2018-07-08 11:40] LABS: ABG ALLEN TEST YES; ARTERIAL BLOOD GAS O2 SAT 98.2 % (95-98); ARTERIAL BLOOD GAS PCO2 75 mm/Hg (35-45); ARTERIAL BLOOD GAS PH 7.32 (7.35-7.45); ARTERIAL BLOOD GAS PO2 72 mm/Hg (80-100); ARTERIAL BLOOD GAS TCO2 40.9 mmol/L (22-28)
--- NOTE | 2018-07-08 13:01 | CP.PCM.CON ---
History of Present Illness - History of Present Illness History of Present Illness: 88 yo male admitted with acute respiratory failure PMH htn, COPD, Diastolic heart failure, TAVR. Pt discharged from hospital with similar presentation. ECHO: Normal LVEF, AV function s/p TAVR on previous echo. CXR increased vascular markings ( portable study) Past Patient History - Infectious Disease Hx of Infectious Diseases: None - Past Medical History & Family History Past Medical History?: Yes - Past Social History Smoking Status: Former Smoker - CARDIAC Hx Atrial Fibrillation: Yes Hx Congestive Heart Failure: Yes Hx Hypercholesterolemia: Yes Hx Hypertension: Yes Hx Peripheral Edema: Yes - PULMONARY Hx Bronchitis: Yes Hx Chronic Obstructive Pulmonary Disease (COPD): Yes - NEUROLOGICAL Hx Neurological Disorder: No - HEENT Hx HEENT Problems: No - RENAL Hx Chronic Kidney Disease: No - ENDOCRINE/METABOLIC Hx Endocrine Disorders: No - HEMATOLOGICAL/ONCOLOGICAL Hx Human Immunodeficiency Virus (HIV): No - INTEGUMENTARY Other/Comment: skin lesion recently removed from left infra-ocular area - MUSCULOSKELETAL/RHEUMATOLOGICAL Hx Musculoskeletal Disorders: Yes - GASTROINTESTINAL Hx Gastrointestinal Disorders: No Hx Diarrhea: Yes Other/Comment: ileus - GENITOURINARY/GYNECOLOGICAL Hx Genitourinary Disorders: No - PSYCHIATRIC Hx Psychophysiologic Disorder: No - SURGICAL HISTORY Hx Valve Replacement: Yes (TAVR) Other/Comment: Laminectomy L3-L5 05/15/2017 - ANESTHESIA Hx Anesthesia: Yes Hx Anesthesia Reactions: No Hx Malignant Hyperthermia: No Meds Allergies/Adverse Reactions: Allergies Allergy/AdvReac Type Severity Reaction Status Date / Time No Known Allergies Allergy Verified 07/07/18 23:59 - Medications Medications: Current Medications Acetaminophen (Tylenol 650mg/20.3ml Solution Ud) 650 mg NG Q6 PRN PRN Reason: Fever>100.4F Last Admin: 07/08/18 08:13 Dose: 650 mg Albuterol/Ipratropium (Duoneb 3 Mg/0.5 Mg (3 Ml) Ud) 3 ml INH RQ6 [facility] Aspirin (Ecotrin) 81 mg PO DAILY [facility] Last Admin: 07/08/18 08:29 Dose: 81 mg Atorvastatin Calcium (Lipitor) 20 mg PO HS [facility] Docusate Sodium (Colace) 100 mg PO BID [facility] Last Admin: 07/08/18 08:28 Dose: Not Given Enoxaparin Sodium (Lovenox) 40 mg SC DAILY [facility]; Protocol Last Admin: 07/08/18 08:30 Dose: 40 mg Folic Acid (Folic Acid) 1 mg NG DAILY [facility] Last Admin: 07/08/18 12:28 Dose: 1 mg Furosemide (Lasix) 40 mg IVP BID [facility] Last Admin: 07/08/18 08:35 Dose: 40 mg Propofol (Diprivan) 1,000 mg in 100 mls @ 2.64 mls/hr IV .Q24H [facility]; Protocol Stop: 07/09/18 04:27 Last Titration: 07/08/18 12:37 Dose: 20 mcg/kg/min, 10.56 mls/hr Cefepime HCl 2 gm/ Sodium (Chloride) 100 mls @ 100 mls/hr IVPB Q12 [facility]; Protocol Last Admin: 07/08/18 08:30 Dose: 100 mls/hr Vancomycin HCl 750 mg/ Sodium (Chloride) 250 mls @ 166.667 mls/hr IVPB Q12 [facility]; Protocol Lactic Acid (Lac-Hydrin 12% Lotion (225 G)) 1 applic TOP TID [facility] Last Admin: 07/08/18 12:28 Dose: 1 applic Lactulose (Enulose) 10 gm PO DAILY PRN PRN Reason: Constipation Magnesium Oxide (Mag-Ox) 400 mg PO DAILY [facility] Last Admin: 07/08/18 08:30 Dose: 400 mg Metoprolol Tartrate (Lopressor) 25 mg PO Q12 [facility] Last Admin: 07/08/18 08:29 Dose: 25 mg Morphine Sulfate (Morphine) 2 mg IVP Q4H PRN PRN Reason: Pain, severe (8-10) Nystatin (Nystop Topical Powder) 1 applic TOP TID [facility] Ondansetron HCl (Zofran Inj) 4 mg IVP Q6H PRN PRN Reason: Nausea/Vomiting Pantoprazole Sodium (Protonix Ec Tab) 40 mg PO DAILY [facility] Last Admin: 07/08/18 08:31 Dose: 40 mg Pyridostigmine [place] (Mestinon Tab) 30 mg PO TID [facility] Last Admin: 07/08/18 12:29 Dose: 30 mg Sennosides (Senokot Tab) 8.6 mg PO BID [facility] Last Admin: 07/08/18 08:32 Dose: Not Given Spironolactone (Aldactone) 25 mg PO BID [facility] Last Admin: 07/08/18 08:28 Dose: 25 mg Thiamine HCl (Vitamin B1 Tab) 100 mg NG DAILY [facility] Last Admin: 07/08/18 12:29 Dose: 100 mg Physical Exam - Neck Exam Neck exam: Positive for: Normal Inspection - Respiratory Exam Respiratory Exam: Decreased Breath Sounds - Cardiovascular Exam Cardiovascular Exam: Irregular Rhythm - GI/Abdominal Exam GI & Abdominal Exam: Normal Bowel Sounds - Extremities Exam Extremities exam: Positive for: pedal edema Results - Vital Signs Recent Vital Signs: Last Vital Signs Temp 100.9 F H 07/08/18 12:00 Pulse 110 H 07/08/18 12:00 Resp 12 07/08/18 12:00 BP 92/56 L 07/08/18 12:00 Pulse Ox 95 07/08/18 12:00 - Labs Result Diagrams: 07/08/18 09:00 07/08/18 09:00 Labs: Laboratory Results - last 24 hr 07/08/18 07/08/18 07/08/18 00:19 00:19 00:19 WBC 9.8 D RBC 3.71 L Hgb 11.0 L Hct 35.7 MCV 96.3 H MCH 29.6 MCHC 30.7 L RDW 16.4 H Plt Count 246 MPV 8.5 Neut % (Auto) 71.7 Lymph % (Auto) 10.9 L Millard % (Auto) 16.6 H Eos % (Auto) 0.3 Baso % (Auto) 0.5 Neut # (Auto) 7.1 H Lymph # (Auto) 1.1 Millard # (Auto) 1.6 H Eos # (Auto) 0.0 Baso # (Auto) 0.0 PT INR APTT pCO2 116 H* pO2 46 L HCO3 28.9 H ABG pH 7.14 L* ABG Total CO2 43.1 H ABG O2 Saturation 85.3 L ABG O2 Content ABG Base Excess 6.2 H ABG Hemoglobin ABG Carboxyhemoglobin POC ABG HHb (Measured) ABG Methemoglobin ABG O2 Capacity Nam Test Yes ABG Potassium 4.8 A-a O2 Difference 522.0 Hgb O2 Saturation Sodium 138.0 140 Chloride 103.0 100 Glucose 168 H Lactate 0.7 Vent Mode Bipap Mechanical Rate 16 FiO2 100.0 Tidal Volume PEEP Inspiratory BiPAP 12 Expiratory BiPAP 6 Crit Value Called To Jas sanders md Crit Value Called By 333 Crit Value Read Back Y Blood Gas Notified Time 25 Potassium 4.7 Carbon Dioxide 36 H Anion Gap 9 L BUN 18 Creatinine 0.9 Est GFR ( Amer) > 60 Est GFR (Non-Af Amer) > 60 Random Glucose 173 H Calcium 8.8 Magnesium Total Bilirubin 0.5 AST 26 ALT 27 Alkaline Phosphatase 83 Troponin I < 0.0120 NT-Pro-B Natriuret Pep 5580 H Total Protein 7.9 Albumin 4.3 Globulin 3.6 Albumin/Globulin Ratio 1.2 Arterial Blood Potassium 4.8 C. difficile Ag & Toxin 07/08/18 07/08/18 07/08/18 00:19 04:02 09:00 WBC 15.6 H D RBC 3.42 L Hgb 10.1 L Hct 32.3 L MCV 94.5 H MCH 29.4 MCHC 31.1 L RDW 16.1 H Plt Count 194 MPV Neut % (Auto) Lymph % (Auto) Millard % (Auto) Eos % (Auto) Baso % (Auto) Neut # (Auto) Lymph # (Auto) Millard # (Auto) Eos # (Auto) Baso # (Auto) PT 12.6 INR 1.1 APTT 32.7 pCO2 98 H* pO2 215 H HCO3 31.6 H ABG pH 7.21 L ABG Total CO2 42.2 H ABG O2 Saturation 100.4 H ABG O2 Content 15.1 ABG Base Excess 8.5 H ABG Hemoglobin 10.7 L ABG Carboxyhemoglobin 1.9 H POC ABG HHb (Measured) -0.4 L ABG Methemoglobin 1.6 ABG O2 Capacity 15.0 L Nam Test Yes ABG Potassium A-a O2 Difference 376.0 Hgb O2 Saturation 96.9 Sodium Chloride Glucose Lactate Vent Mode A/c Mechanical Rate 16 FiO2 100.0 Tidal Volume 450 PEEP 5 Inspiratory BiPAP Expiratory BiPAP Crit Value Called To Adriana osullivan rn Crit Value Called By [id number] Crit Value Read Back Y Blood Gas Notified Time 406 Potassium Carbon Dioxide Anion Gap BUN Creatinine Est GFR ( Amer) Est GFR (Non-Af Amer) Random Glucose Calcium Magnesium Total Bilirubin AST ALT Alkaline Phosphatase Troponin I NT-Pro-B Natriuret Pep Total Protein Albumin Globulin Albumin/Globulin Ratio Arterial Blood Potassium C. difficile Ag & Toxin 07/08/18 07/08/18 07/08/18 09:00 09:00 11:00 WBC RBC Hgb Hct MCV MCH MCHC RDW Plt Count MPV Neut % (Auto) Lymph % (Auto) [place] % (Auto) Eos % (Auto) Baso % (Auto) Neut # (Auto) Lymph # (Auto) Millard # (Auto) Eos # (Auto) Baso # (Auto) PT INR APTT pCO2 75 H* pO2 72 L HCO3 33.0 H ABG pH 7.32 L ABG Total CO2 40.9 H ABG O2 Saturation 98.2 H ABG O2 Content ABG Base Excess 10.4 H ABG Hemoglobin ABG Carboxyhemoglobin POC ABG HHb (Measured) ABG Methemoglobin ABG O2 Capacity Nam Test Yes ABG Potassium 3.9 A-a O2 Difference 333.0 Hgb O2 Saturation Sodium 137 138.0 Chloride 98 103.0 Glucose 139 H Lactate 1.2 Vent Mode A/c Mechanical Rate 10 FiO2 70.0 Tidal Volume 450 PEEP 5 Inspiratory BiPAP Expiratory BiPAP Crit Value Called To Dr minor [email or web address] Crit Value Called By 15 Crit Value Read Back Y Blood Gas Notified Time 1139 Potassium 4.0 Carbon Dioxide 35 H Anion Gap 8 L BUN 19 Creatinine 0.9 Est GFR ( Amer) > 60 Est GFR (Non-Af Amer) > 60 Random Glucose 146 H Calcium 8.2 L Magnesium 1.8 Total Bilirubin AST ALT Alkaline Phosphatase Troponin I NT-Pro-B Natriuret Pep Total Protein Albumin Globulin Albumin/Globulin Ratio Arterial Blood Potassium 3.9 C. difficile Ag & Toxin Negative Assessment & Plan - Assessment and Plan (Free Text) Assessment: Acute Respiratory Failure : Etioolgy unclear: Diastolic CHF, no clinical evidence of clinical ischemia, / or COPD respiratory exacerbation combination of both. Continue on IV diuretics / respiratory support
[2018-07-08] MEDS: Albuterol-Ipratrop 3 mg / 0.5 (3 ml) UD INH SCH ×2 (13:26→19:05)
--- NOTE | 2018-07-08 14:26 | RAD ---
Date of service: 07/08/2018 HISTORY: post-intubation COMPARISON: No prior. TECHNIQUE: 1 view obtained. FINDINGS: LUNGS: Diffuse left-sided opacity common nonspecific. Worsened compared to prior examination. Some or all of this may be due to dependent pleural fluid. No abnormal right-sided opacity. PLEURA: Moderate left pleural effusion. No right pleural effusion. No pneumothorax. Endotracheal tube tip approximately 1.7 cm above the tracheal brian. Evaluation is somewhat limited by oblique positioning of the patient. CARDIOVASCULAR: There is atherosclerotic calcification of the thoracic aorta. Normal cardiac size. No pulmonary vascular congestion. OSSEOUS STRUCTURES: No significant abnormalities. VISUALIZED UPPER ABDOMEN: Normal. OTHER FINDINGS: None. IMPRESSION: Moderate left pleural effusion. Cannot exclude underlying pulmonary infiltrate on the left side. Endotracheal tube noted with its tip approximately 1.7 cm above the tracheal brian.
--- NOTE | 2018-07-08 14:28 | RAD ---
Date of service: 07/08/2018 PROCEDURE: CHEST RADIOGRAPH, 1 VIEW HISTORY: SOB COMPARISON: 06/24/2018 FINDINGS: LUNGS: No definite infiltrate. PLEURA: Small to moderate left pleural effusion new since prior examination. No right pleural effusion. No pneumothorax. CARDIOVASCULAR: There is atherosclerotic calcification of the thoracic aorta.. Normal. OSSEOUS STRUCTURES: No significant abnormalities. VISUALIZED UPPER ABDOMEN: Normal. OTHER FINDINGS: None. IMPRESSION: Small to moderate left pleural effusion. No other significant abnormality.
--- NOTE | 2018-07-08 18:37 | CP.PCM.CON ---
History of Present Illness - History of Present Illness History of Present Illness: 88 yo Male with PMHx of HTN, HLD, COPD, pulmonary hypertension, HFpEF, s/p TAVR, Chronic A-fib (Eliquis on hold due to +FOBT?), recurrent pleural effusion, admitted with respiratory distress and is now intubated in ICU . Was discharged earlier this month after being treated fpr ANTHONY and CHF exacerbation s/p right thoracenthesis ID consulted for antibiotic management of pneumonia sepsis and resp failure with severe cellulitis RLE Had fever of 102 F this morning, BP low normal with HR in 80-90s. On propofol dr ip with antibiotics infusing Family at the bedside - Constitutional Constitutional: As Per HPI - EENT Eyes: absent: As Per HPI, Blind Spots, Blurred Vision, Change in Vision, Decreased Night Vision, Diplopia, Discharge, Dry Eye, Exophthalmos, Floaters, Irritation, Itchy Eyes, Loss of Peripheral Vision, Pain, Photophobia, Requires Corrective Lenses, Sees Flashes, Spots in Vision, Tunnel Vision, Other Visual Disturbances, Loss of Vision, Other Ears: absent: As Per HPI, Decreased Hearing, Ear Discharge, Ear Pain, Tinnitus, Abnormal Hearing, Disequilibrium, Dizziness, Other Nose/Mouth/Throat: absent: As Per HPI, Epistaxis, Nasal Congestion, Nasal Di scharge, Nasal Obstruction, Nasal Trauma, Nose Pain, Post Nasal Drip, Sinus Pain, Sinus Pressure, Bleeding Gums, Change in Voice, Dental Pain, Dry Mouth, Dysphagia, Halitosis, Hoarsness, Lip Swelling, Mouth Lesions, Mouth Pain, Odynophagia, Sore Throat, Throat Swelling, Tongue Swelling, Facial Pain, Neck Pain, Neck Mass, Other - Cardiovascular Cardiovascular: As Per HPI - Respiratory Respiratory: As Per HPI, Dyspnea, Dyspnea on Exertion - Gastrointestinal Gastrointestinal: absent: As Per HPI, Abdominal Pain, Belching, Bloating, Change in Bowel Habits, Change in Stool Character, Coffee Ground Emesis, Constipation, Cramping, Diarrhea, Dyspepsia, Dysphagia, Early Satiety, Excessive Flatus, Fecal Incontinence, Heartburn, Hematemesis, Hematochezia, Loose Stools, Melena, Nausea, Odynophagia, Temesmus, Vomiting, Other - Genitourinary Genitourinary: absent: As Per HPI, Change in Urinary Stream, Difficulty Urinating, Dysuria, Flank Pain, Hematuria, Pyuria, Nocturia, Urinary Incontinence, Urinary Frequency, Urinary Hesitance, Urinary Urgency, Voiding Freq/Small Amts, Freq UTI, Hx Renal/Bladder Calculi, Hx /Renal Surgery, Bladder Distension, Other - Musculoskeletal Musculoskeletal: As Per HPI - Integumentary Integumentary: As Per HPI, Skin Pain - Neurological Neurological: absent: As Per HPI, Abnormal Gait, Abnormal Hearing, Abnormal Movements, Abnormal Speech, Behavioral Changes, Burning Sensations, Confusion, C onvulsions, Disequilibrium, Dizziness, Numbness, Focal Weakness, Frequent Falls, Headaches, Lack of Coordination, Loss of Vision, Memory Loss, Paresthesias, Radicular Pain, Restless Legs, Sensory Deficit, Syncope, Tingling, Tremor, Vertigo, Weakness, Other Visual Disturbances, Other - Psychiatric Psychiatric: absent: As Per HPI, Abnormal Sleep Pattern, Anhedonia, Anxiety, Auditory Hallucinations, Behavioral Changes, Change in Appetite, Change in Libido, Confusion, Depression, Difficulty Concentrating, Hallucinations, Homicidal Ideation, Hopelessness, Irritability, Memory Loss, Mood Swings, Panic Attacks, Paranoia, Suicidal Ideation, Visual Hallucinations, Tactile Hallucinations, Other Past Patient History - Infectious Disease Hx of Infectious Diseases: None - Past Medical History & Family History Past Medical History?: Yes - Past Social History Smoking Status: Former Smoker Chewing Tobacco Use: No Cigar Use: No Alcohol: > 2 Drinks/Day Drugs: Denies Home Situation {Lives}: With Family - CARDIAC Hx Atrial Fibrillation: Yes Hx Congestive Heart Failure: Yes Hx Hypercholesterolemia: Yes Hx Hypertension: Yes Hx Peripheral Edema: Yes - PULMONARY Hx Bronchitis: Yes Hx Chronic Obstructive Pulmonary Disease (COPD): Yes Other/Comment: pleural effusion. - NEUROLOGICAL Hx Neurological Disorder: No - HEENT Hx HEENT Problems: No - RENAL Hx Chronic Kidney Disease: No - ENDOCRINE/METABOLIC Hx Endocrine Disorders: No - HEMATOLOGICAL/ONCOLOGICAL Hx Human Immunodeficiency Virus (HIV): No - INTEGUMENTARY Other/Comment: skin lesion recently removed from left infra-ocular area - MUSCULOSKELETAL/RHEUMATOLOGICAL Hx Arthritis: Yes Hx Back Pain: Yes Hx Herniated Disk: Yes - GASTROINTESTINAL Hx Diarrhea: Yes Other/Comment: ileus - GENITOURINARY/GYNECOLOGICAL Hx Genitourinary Disorders: No - PSYCHIATRIC Hx Psychophysiologic Disorder: No - SURGICAL HISTORY Hx Valve Replacement: Yes (TAVR) Other/Comment: Laminectomy L3-L5 05/15/2017 - ANESTHESIA Hx Anesthesia: Yes Hx Anesthesia Reactions: No Hx Malignant Hyperthermia: No Meds Allergies/Adverse Reactions: Allergies Allergy/AdvReac Type Severity Reaction Status Date / Time No Known Allergies Allergy Verified 07/07/18 23:59 - Medications Medications: Current Medications Acetaminophen (Tylenol 650mg/20.3ml Solution Ud) 650 mg NG Q6 PRN PRN Reason: Fever>100.4F Last Admin: 07/08/18 08:13 Dose: 650 mg Albuterol/Ipratropium (Duoneb 3 Mg/0.5 Mg (3 Ml) Ud) 3 ml INH RQ6 [facility] Last Admin: 07/08/18 13:26 Dose: 3 ml Aspirin (Ecotrin) 81 mg PO DAILY [facility] Last Admin: 07/08/18 08:29 Dose: 81 mg Atorvastatin Calcium (Lipitor) 20 mg PO HS [facility] Docusate Sodium (Colace) 100 mg PO BID [facility] Last Admin: 07/08/18 16:56 Dose: Not Given Enoxaparin Sodium (Lovenox) 40 mg SC DAILY [facility]; Protocol Last Admin: 07/08/18 08:30 Dose: 40 mg Folic Acid (Folic Acid) 1 mg NG DAILY [facility] Last Admin: 07/08/18 12:28 Dose: 1 mg Furosemide (Lasix) 40 mg IVP BID [facility] Last Admin: 07/08/18 16:59 Dose: 40 mg Propofol (Diprivan) 1,000 mg in 100 mls @ 2.64 mls/hr IV .Q24H [facility]; Protocol Stop: 07/09/18 04:27 Last Admin: 07/08/18 13:55 Dose: 20 mcg/kg/min, 10.56 mls/hr Cefepime HCl 2 gm/ Sodium (Chloride) 100 mls @ 100 mls/hr IVPB Q12 [facility]; Protocol Last Admin: 07/08/18 08:30 Dose: 100 mls/hr Vancomycin HCl 750 mg/ Sodium (Chloride) 250 mls @ 166.667 mls/hr IVPB Q12 [facility]; Protocol Lactic Acid (Lac-Hydrin 12% Lotion (225 G)) 1 applic TOP TID [facility] Last Admin: 07/08/18 16:56 Dose: 1 applic Lactulose (Enulose) 10 gm PO DAILY PRN PRN Reason: Constipation Magnesium Oxide (Mag-Ox) 400 mg PO DAILY [facility] Last Admin: 07/08/18 08:30 Dose: 400 mg Metoprolol Tartrate (Lopressor) 25 mg PO Q12 [facility] Last Admin: 07/08/18 08:29 Dose: 25 mg Morphine Sulfate (Morphine) 2 mg IVP Q4H PRN PRN Reason: Pain, severe (8-10) Nystatin (Nystop Topical Powder) 1 applic TOP TID [facility] Last Admin: 07/08/18 17:04 Dose: Not Given Ondansetron HCl (Zofran Inj) 4 mg IVP Q6H PRN PRN Reason: Nausea/Vomiting Pantoprazole Sodium (Protonix Ec Tab) 40 mg PO DAILY [facility] Last Admin: 07/08/18 08:31 Dose: 40 mg Pyridostigmine [place] (Mestinon Tab) 30 mg PO TID [facility] Last Admin: 07/08/18 16:56 Dose: 30 mg Sennosides (Senokot Tab) 8.6 mg PO BID [facility] Last Admin: 07/08/18 16:57 Dose: Not Given Spironolactone (Aldactone) 25 mg PO BID [facility] Last Admin: 07/08/18 16:55 Dose: 25 mg Thiamine HCl (Vitamin B1 Tab) 100 mg NG DAILY [facility] Last Admin: 07/08/18 12:29 Dose: 100 mg Physical Exam - Constitutional Appears: Confused, Chronically Ill Additional comments: Intubated - Head Exam Head Exam: ATRAUMATIC, NORMOCEPHALIC - Eye Exam Eye Exam: PERRL. absent: Scleral icterus Pupil Exam: NORMAL ACCOMODATION - ENT Exam ENT Exam: Mucous Membranes Dry, Normal External Ear Exam - Neck Exam Neck exam: Negative for: Lymphadenopathy - Respiratory Exam Respiratory Exam: Decreased Breath Sounds, Prolonged Expiratory Phase, Rales, Rhonchi - Cardiovascular Exam Cardiovascular Exam: REGULAR RHYTHM, +S1, +S2 - GI/Abdominal Exam GI & Abdominal Exam: Diminished Bowel Sounds, Distended, Soft. absent: Tenderness - Rectal Exam Rectal Exam: Deferred - Exam Exam: NORMAL INSPECTION - Extremities Exam Extremities exam: Positive for: pedal pulses present. Negative for: calf tenderness, pedal edema, tenderness - Back Exam Back exam: absent: CVA tenderness (L), CVA tenderness (R) - Neurological Exam Neurological exam: Altered, CN II-XII Intact, Reflexes Normal - Psychiatric Exam Psychiatric exam: Depressed - Skin Skin Exam: Dry Results - Vital Signs Recent Vital Signs: Last Vital Signs Temp 99.9 F H 07/08/18 18:00 Pulse 96 H 07/08/18 18:00 Resp 12 07/08/18 18:00 BP 103/55 L 07/08/18 18:00 Pulse Ox 97 07/08/18 18:00 - Labs Result Diagrams: 07/09/18 05:00 07/09/18 05:00 Labs: Laboratory Results - last 24 hr 07/08/18 07/08/18 07/08/18 00:19 00:19 00:19 WBC 9.8 D RBC 3.71 L Hgb 11.0 L Hct 35.7 MCV 96.3 H MCH 29.6 MCHC 30.7 L RDW 16.4 H Plt Count 246 MPV 8.5 Neut % (Auto) 71.7 Lymph % (Auto) 10.9 L [place] % (Auto) 16.6 H Eos % (Auto) 0.3 Baso % (Auto) 0.5 Neut # (Auto) 7.1 H Lymph # (Auto) 1.1 [place] # (Auto) 1.6 H Eos # (Auto) 0.0 Baso # (Auto) 0.0 PT INR APTT pCO2 116 H* pO2 46 L HCO3 28.9 H ABG pH 7.14 L* ABG Total CO2 43.1 H ABG O2 Saturation 85.3 L ABG O2 Content ABG Base Excess 6.2 H ABG Hemoglobin ABG Carboxyhemoglobin POC ABG HHb (Measured) ABG Methemoglobin ABG O2 Capacity Nam Test Yes ABG Potassium 4.8 A-a O2 Difference 522.0 Hgb O2 Saturation Sodium 138.0 140 Chloride 103.0 100 Glucose 168 H Lactate 0.7 Vent Mode Bipap Mechanical Rate 16 FiO2 100.0 Tidal Volume PEEP Inspiratory BiPAP 12 Expiratory BiPAP 6 Crit Value Called To Jas sanders md Crit Value Called By 333 Crit Value Read Back Y Blood Gas Notified Time 25 Potassium 4.7 Carbon Dioxide 36 H Anion Gap 9 L BUN 18 Creatinine 0.9 Est GFR ( Amer) > 60 Est GFR (Non-Af Amer) > 60 Random Glucose 173 H Calcium 8.8 Magnesium Total Bilirubin 0.5 AST 26 ALT 27 Alkaline Phosphatase 83 Troponin I < 0.0120 NT-Pro-B Natriuret Pep 5580 H Total Protein 7.9 Albumin 4.3 Globulin 3.6 Albumin/Globulin Ratio 1.2 Arterial Blood Potassium 4.8 Stool Leukocytes, Qual C. difficile Ag & Toxin 07/08/18 07/08/18 07/08/18 00:19 04:02 09:00 WBC 15.6 H D RBC 3.42 L Hgb 10.1 L Hct 32.3 L MCV 94.5 H MCH 29.4 MCHC 31.1 L RDW 16.1 H Plt Count 194 MPV Neut % (Auto) Lymph % (Auto) [place] % (Auto) Eos % (Auto) Baso % (Auto) Neut # (Auto) Lymph # (Auto) [place] # (Auto) Eos # (Auto) Baso # (Auto) PT 12.6 INR 1.1 APTT 32.7 pCO2 98 H* pO2 215 H HCO3 31.6 H ABG pH 7.21 L ABG Total CO2 42.2 H ABG O2 Saturation 100.4 H ABG O2 Content 15.1 ABG Base Excess 8.5 H ABG Hemoglobin 10.7 L ABG Carboxyhemoglobin 1.9 H POC ABG HHb (Measured) -0.4 L ABG Methemoglobin 1.6 ABG O2 Capacity 15.0 L Nam Test Yes ABG Potassium A-a O2 Difference 376.0 Hgb O2 Saturation 96.9 Sodium Chloride Glucose Lactate Vent Mode A/c Mechanical Rate 16 FiO2 100.0 Tidal Volume 450 PEEP 5 Inspiratory BiPAP Expiratory BiPAP Crit Value Called To Adriana osullivan rn Crit Value Called By 6075 Crit Value Read Back Y Blood Gas Notified Time 406 Potassium Carbon Dioxide Anion Gap BUN Creatinine Est GFR ( Amer) Est GFR (Non-Af Amer) Random Glucose Calcium Magnesium Total Bilirubin AST ALT Alkaline Phosphatase Troponin I NT-Pro-B Natriuret Pep Total Protein Albumin Globulin Albumin/Globulin Ratio Arterial Blood Potassium Stool Leukocytes, Qual C. difficile Ag & Toxin 07/08/18 07/08/18 07/08/18 09:00 09:00 09:00 WBC RBC Hgb Hct MCV MCH MCHC RDW Plt Count MPV Neut % (Auto) Lymph % (Auto) [place] % (Auto) Eos % (Auto) Baso % (Auto) Neut # (Auto) Lymph # (Auto) [place] # (Auto) Eos # (Auto) Baso # (Auto) PT INR APTT pCO2 pO2 HCO3 ABG pH ABG Total CO2 ABG O2 Saturation ABG O2 Content ABG Base Excess ABG Hemoglobin ABG Carboxyhemoglobin POC ABG HHb (Measured) ABG Methemoglobin ABG O2 Capacity Nam Test ABG Potassium A-a O2 Difference Hgb O2 Saturation Sodium 137 Chloride 98 Glucose Lactate Vent Mode Mechanical Rate FiO2 Tidal Volume PEEP Inspiratory BiPAP Expiratory BiPAP Crit Value Called To Crit Value Called By Crit Value Read Back Blood Gas Notified Time Potassium 4.0 Carbon Dioxide 35 H Anion Gap 8 L BUN 19 Creatinine 0.9 Est GFR ( Amer) > 60 Est GFR (Non-Af Amer) > 60 Random Glucose 146 H Calcium 8.2 L Magnesium 1.8 Total Bilirubin AST ALT Alkaline Phosphatase Troponin I NT-Pro-B Natriuret Pep Total Protein Albumin Globulin Albumin/Globulin Ratio Arterial Blood Potassium Stool Leukocytes, Qual Negative C. difficile Ag & Toxin Negative 07/08/18 11:00 WBC RBC Hgb Hct MCV MCH MCHC RDW Plt Count MPV Neut % (Auto) Lymph % (Auto) [place] % (Auto) Eos % (Auto) Baso % (Auto) Neut # (Auto) Lymph # (Auto) [place] # (Auto) Eos # (Auto) Baso # (Auto) PT INR APTT pCO2 75 H* pO2 72 L HCO3 33.0 H ABG pH 7.32 L ABG Total CO2 40.9 H ABG O2 Saturation 98.2 H ABG O2 Content ABG Base Excess 10.4 H ABG Hemoglobin ABG Carboxyhemoglobin POC ABG HHb (Measured) ABG Methemoglobin ABG O2 Capacity Nam Test Yes ABG Potassium 3.9 A-a O2 Difference 333.0 Hgb O2 Saturation Sodium 138.0 Chloride 103.0 Glucose 139 H Lactate 1.2 Vent Mode A/c Mechanical Rate 10 FiO2 70.0 Tidal Volume 450 PEEP 5 Inspiratory BiPAP Expiratory BiPAP Crit Value Called To Dr minor [email or web address] Crit Value Called By 15 Crit Value Read Back Y Blood Gas Notified Time 1139 Potassium Carbon Dioxide Anion Gap BUN Creatinine Est GFR ( Amer) Est GFR (Non-Af Amer) Random Glucose Calcium Magnesium Total Bilirubin AST ALT Alkaline Phosphatase Troponin I NT-Pro-B Natriuret Pep Total Protein Albumin Globulin Albumin/Globulin Ratio Arterial Blood Potassium 3.9 Stool Leukocytes, Qual C. difficile Ag & Toxin Assessment & Plan (1) Cellulitis of right lower leg Status: Acute (2) Atrial fibrillation Status: Acute (3) CHF (congestive heart failure) Status: Acute (4) Endotracheally intubated Status: Acute Priority: High (5) Respiratory distress Status: Acute (6) Respiratory failure with hypoxia and hypercapnia Status: Acute Priority: High (7) Dependent edema Status: Chronic Priority: High (8) Pleural effusion, left Status: Suspected Priority: High (9) Pneumonia Status: Suspected Priority: High (10) COPD (chronic obstructive pulmonary disease) Status: Chronic Priority: High (11) Sepsis Status: Acute - Assessment and Plan (Free Text) Assessment: 88 yo Male with PMHx of HTN, HLD, COPD, pulmonary hypertension, HFpEF, s/p TAVR, Chronic A-fib (Eliquis on hold due to +FOBT?), recurrent pleural effusion, admitted with respiratory distress and is now intubated in ICU . Was discharged earlier this month after being treated fpr ANTHONY and CHF exacerbation s/p right thoracenthesis ID consulted for antibiotic management of pneumonia sepsis and resp failure with severe cellulitis RLE IV Vanco/ Cefepime in progress
--- NOTE | 2018-07-08 20:38 | CP.PCM.PN ---
Subjective - Date & Time of Evaluation Date of Evaluation: 07/08/18 Time of Evaluation: 22:22 - Subjective Subjective: 88 yo admitted to ICU in acute respiratory failure Extensive discussion with superintendent [employer] reviewed in detail Objective - Vital Signs/Intake and Output Vital Signs (last 24 hours): Temp Pulse Resp BP Pulse Ox 99.9 F H 108 H 12 102/54 L 97 07/08/18 18:00 07/08/18 19:00 07/08/18 19:00 07/08/18 19:00 07/08/18 19:00 Intake and Output: 07/08/18 07/09/18 18:59 06:59 Intake Total 1610 Output Total 775 Balance 835 - Medications Medications: Current Medications Acetaminophen (Tylenol 650mg/20.3ml Solution Ud) 650 mg NG Q6 PRN PRN Reason: Fever>100.4F Last Admin: 07/08/18 08:13 Dose: 650 mg Albuterol/Ipratropium (Duoneb 3 Mg/0.5 Mg (3 Ml) Ud) 3 ml INH RQ6 [facility] Last Admin: 07/08/18 19:05 Dose: 3 ml Aspirin (Ecotrin) 81 mg PO DAILY [facility] Last Admin: 07/08/18 08:29 Dose: 81 mg Atorvastatin Calcium (Lipitor) 20 mg PO HS [facility] Docusate Sodium (Colace) 100 mg PO BID [facility] Last Admin: 07/08/18 16:56 Dose: Not Given Enoxaparin Sodium (Lovenox) 40 mg SC DAILY [facility]; Protocol Last Admin: 07/08/18 08:30 Dose: 40 mg Folic Acid (Folic Acid) 1 mg NG DAILY [facility] Last Admin: 07/08/18 12:28 Dose: 1 mg Furosemide (Lasix) 40 mg IVP BID [facility] Last Admin: 07/08/18 16:59 Dose: 40 mg Propofol (Diprivan) 1,000 mg in 100 mls @ 2.64 mls/hr IV .Q24H [facility]; Protocol Stop: 07/09/18 04:27 Last Admin: 07/08/18 13:55 Dose: 20 mcg/kg/min, 10.56 mls/hr Cefepime HCl 2 gm/ Sodium (Chloride) 100 mls @ 100 mls/hr IVPB Q12 [facility]; Protocol Last Admin: 07/08/18 08:30 Dose: 100 mls/hr Vancomycin HCl 750 mg/ Sodium (Chloride) 250 mls @ 166.667 mls/hr IVPB Q12 [facility]; Protocol Lactic Acid (Lac-Hydrin 12% Lotion (225 G)) 1 applic TOP TID [facility] Last Admin: 07/08/18 16:56 Dose: 1 applic Lactulose (Enulose) 10 gm PO DAILY PRN PRN Reason: Constipation Magnesium Oxide (Mag-Ox) 400 mg PO DAILY [facility] Last Admin: 07/08/18 08:30 Dose: 400 mg Metoprolol Tartrate (Lopressor) 25 mg PO Q12 [facility] Last Admin: 07/08/18 08:29 Dose: 25 mg Morphine Sulfate (Morphine) 2 mg IVP Q4H PRN PRN Reason: Pain, severe (8-10) Nystatin (Nystop Topical Powder) 1 applic TOP TID [facility] Last Admin: 07/08/18 17:04 Dose: Not Given Ondansetron HCl (Zofran Inj) 4 mg IVP Q6H PRN PRN Reason: Nausea/Vomiting Pantoprazole Sodium (Protonix Ec Tab) 40 mg PO DAILY [facility] Last Admin: 07/08/18 08:31 Dose: 40 mg Pyridostigmine [place] (Mestinon Tab) 30 mg PO TID [facility] Last Admin: 07/08/18 16:56 Dose: 30 mg Sennosides (Senokot Tab) 8.6 mg PO BID [facility] Last Admin: 07/08/18 16:57 Dose: Not Given Spironolactone (Aldactone) 25 mg PO BID [facility] Last Admin: 07/08/18 16:55 Dose: 25 mg Thiamine HCl (Vitamin B1 Tab) 100 mg NG DAILY [facility] Last Admin: 07/08/18 12:29 Dose: 100 mg - Labs Labs: 07/08/18 09:00 07/08/18 09:00 PT 12.6 Seconds (9.8-13.1) 07/08/18 00:19 INR 1.1 07/08/18 00:19 APTT 32.7 Seconds (25.6-37.1) 07/08/18 00:19 - Respiratory Exam Respiratory Exam: NORMAL BREATHING PATTERN - Cardiovascular Exam Cardiovascular Exam: REGULAR RHYTHM - GI/Abdominal Exam GI & Abdominal Exam: Normal Bowel Sounds Assessment and Plan - Assessment and Plan (Free Text) Assessment: Acute Respiratory Failure etiol? Temp 102 Hx Pleural efusion S/P thoracentesis Pleural effusion CHF vs COPD Hx CHF Afib S/P TAVR LV fxn good Hx COPD COSA Smoker ICU Intubated Pulmonary Cardiology ID HX Abdominal distention improved Colonic ileus ( recurrent ) + FOBT ?? [place] held etiol ?? 2 to L-S surgery pyridostigmine Hx LLE edema cellulitis ?? ecchymosis?? Endovascular consult ??? CT scan done no significant findings Hx ANTHONY/ CKD Lasix?? Nephrology Hx Hyperkalemia 2 to Bactrim?? Kaexylate given Hold NAMRATA Urine lytes Hx Hypokalemia Hyperkalemia HTN Prediabetes Hx Low back surgery (Severe Spinal Stenosis) Post operative illeus
--- NOTE | 2018-07-08 23:06 | CARD ---
APPROVED REPORT Date of service: 07/08/2018 EKG Measurement Heart [id number] <Conclusion> Atrial fibrillation with premature ventricular or aberrantly conducted complexes Anterior infarct, age undetermined Abnormal ECG
[2018-07-09] MEDS: Albuterol-Ipratrop 3 mg / 0.5 (3 ml) UD INH SCH ×4 (01:44→19:08)
[2018-07-09 05:24] LABS: ABG ALLEN TEST YES; ARTERIAL BLOOD GAS HCO3 31.9 mmol/L (21-28); ARTERIAL BLOOD GAS O2 SAT 98.5 % (95-98); ARTERIAL BLOOD GAS PCO2 74 mm/Hg (35-45); ARTERIAL BLOOD GAS PH 7.32 (7.35-7.45); ARTERIAL BLOOD GAS PO2 81 mm/Hg (80-100); ARTERIAL BLOOD GAS TCO2 40.4 mmol/L (22-28)
[2018-07-09 06:59] LABS: ALB/GLOB RATIO 1.1 (1.0-2.1); ALT/SGPT 26 U/L (21-72); AST/SGOT 21 U/L (17-59); BLOOD UREA NITROGEN 32 mg/dl (9-20); CALCIUM 8.1 mg/dL (8.4-10.2); GFR NON-AFRICAN AMERICAN 57
[2018-07-09 07:02] LABS: MEAN CELL VOLUME 95.2 fl (80.0-94.0); MEAN CORPUSCULAR HEMOGLOBIN 28.8 pg (27.0-31.0); MEAN CORPUSCULAR HGB CONC 30.2 g/dL (33.0-37.0); MEAN PLATELET VOLUME 9.2 fl (7.2-11.7); RBC 3.28 Mil/uL (4.40-5.90); RED CELL DISTRIBUTION WIDTH 16.4 % (11.5-14.5)
[2018-07-09 07:10] LABS: BASO % 0.5 % (0.0-2.0); EOS % 0.4 % (0.0-4.0); HEMOGLOBIN 9.4 g/dL (12.0-18.0); LYMPH # 1.4 K/uL (1.0-4.3); MONO % 14.6 % (0.0-10.0); NEUT # 15.8 K/uL (1.8-7.0); NEUT % 77.5 % (50.0-75.0); NRBC % 0.3 % (0.0-0.0); PLATELET COUNT 174 K/uL (130-400); WHITE BLOOD COUNT 20.4 K/uL (4.8-10.8)
[2018-07-09 07:11] LABS: BASO # 0.1 K/uL (0.0-0.2); EOS # 0.1 K/uL (0.0-0.7)
--- NOTE | 2018-07-09 07:41 | RAD ---
Date of service: 07/09/2018 HISTORY: abdominal distension COMPARISON: None available. TECHNIQUE: 1 view obtained. FINDINGS: BOWEL: There is a paucity of bowel gas although nasogastric tube is present in the region of the stomach. This is a nonspecific bowel gas pattern. No large free intra peritoneal gas collection is appreciated. Hyperdensity in the right upper quadrant could reflect vicarious excretion of iodinated contrast material in the gallbladder from an outside intravenous contrast administration as no contrast enhanced examinations have been performed recently on this patient at our institution. Alternatively, this may be an artifact. No abnormal internal calcifications. BONES: Marked multilevel thoracolumbar spondylosis. OTHER FINDINGS: None. IMPRESSION: Nonspecific bowel gas pattern. Paucity of bowel gas. Artifact or possible iodinated contrast material within the gallbladder. Nasogastric tube identified placed terminating the region of the gastric viscus.
--- NOTE | 2018-07-09 07:50 | RAD ---
Date of service: 07/09/2018 HISTORY: f/u LLL infiltrate COMPARISON: Portable chest 07/08/2018 2:45 a.m.. TECHNIQUE: 1 view obtained. FINDINGS: LUNGS: An orogastric tube has been placed the tip poorly identified in this exam. Repeat chest or abdomen radiograph for added characterization of the distal portion of the tube. Endotracheal tube is unchanged in position. No right-sided infiltrate. Diminished left pleural effusion with patchy density at the left apex and left base identified. No pneumothorax bilaterally. No right pleural effusion. PLEURA: As above. CARDIOVASCULAR: Calcific atherosclerotic changes are not currently visible but definitely present in the thoracic aorta in comparison radiograph. Stable cardiomegaly. No pulmonary vascular congestion. OSSEOUS STRUCTURES: No significant abnormalities. VISUALIZED UPPER ABDOMEN: Normal. OTHER FINDINGS: None. IMPRESSION: Orogastric tube has been placed with the distal segment poorly characterized in this exam. Repeat abdomen or chest radiograph advised for confirmation of termination of OGT. Diminished left pleural effusion. Persistent airspace disease left chest.
[2018-07-09] MEDS: Propofol 10 mg/ml 1,000 MG/100 ML VIAL IV SCH ×2 (08:34→17:37)
[2018-07-09] MEDS: Enoxaparin 40 mg Syringe SC SCH (08:39)
[2018-07-09] MEDS: Magnesium Oxide 400 mg Tab UD PO SCH (08:39)
[2018-07-09] MEDS: Cefepime 2 GM in Sodium Chloride 0.9% 100 ML IVPB SCH (08:39)
[2018-07-09] MEDS: Pantoprazole 40 mg EC Tab PO SCH (08:40)
[2018-07-09 08:45] LABS: ANISOCYTOSIS SLIGHT; BANDS 12 % (0-2); EOSINOPHIL 1 % (0-7); LYMPHOCYTE 5 % (20-50); MONOCYTE 14 % (0-10); NEUTROPHIL 68 % (42-75); PLATELET ESTIMATE NORMAL (NORMAL); TOTAL CELLS COUNTED 100
[2018-07-09 08:46] LABS: LARGE PLATELETS PRESENT
[2018-07-09 08:47] LABS: OVALOCYTES SLIGHT; POIKILOCYTOSIS SLIGHT
[2018-07-09 08:48] LABS: HYPOCHROMIC SLIGHT
--- NOTE | 2018-07-09 08:54 | CP.PCM.PN ---
Subjective - Date & Time of Evaluation Date of Evaluation: 07/09/18 Time of Evaluation: 08:52 - Subjective Subjective: Seen on rounds in the ICU. Case discussed with etcher printed circuit boards and nurse. Interim events reviewed. Chest x-ray from this AM shows a new JULIÁN consolidation. WBC is up to 20.4 with 12% bands. Morning ABG shows slowly improving PaCO2, mild acidosis and adequate PaO2. He remains sedated, orally intubated and mechanically ventilated. EtCO2 44cm, SpO2 96%, RR12/12, [id number], plateau 26cm. Sedated, no recruitment od IC retractions. No dullness on percussion of the anterior thorax, no subcut emphysema. Breath sounds are diminished but equally present on both sides anteriorly. Posteriorly there are pronounced bronchial breath sounds in the JULIÁN. No audible wheezes, few dependant rhonchi bilaterally, scattered dry rales iLLs. Heart sounds are distant, regular. Abdomen is obese, bowel sounds are well heard. ++ dependant edema of legs, + erythema RLE. No cyanosis. JULIÁN pneumonia (HCAP). Acute respiratory failure. COPD exacerbation. Cellulitis RLE. Reduce FiO2 to 60. Increase RR to 14 BPM. Continue antibiotic therapy and await sputum culture sent yesterday. Continue aerosol therapy on Q6H schedule. CC time 30min. Objective - Vital Signs/Intake and Output Vital Signs (last 24 hours): Temp Pulse Resp BP Pulse Ox 99.3 F 105 H 13 101/62 94 L 07/09/18 07:58 07/09/18 08:38 07/09/18 07:58 07/09/18 08:43 07/09/18 07:58 Intake and Output: 07/08/18 07/09/18 23:59 11:59 Intake Total 1852 1079 Output Total 175 285 Balance 1677 794 - Medications Medications: Current Medications Acetaminophen (Tylenol 650mg/20.3ml Solution Ud) 650 mg NG Q6 PRN PRN Reason: Fever>100.4F Last Admin: 07/08/18 08:13 Dose: 650 mg Albuterol/Ipratropium (Duoneb 3 Mg/0.5 Mg (3 Ml) Ud) 3 ml INH RQ6 LISSA Last Admin: 07/09/18 08:33 Dose: 3 ml Aspirin (Ecotrin) 81 mg PO DAILY [facility] Last Admin: 07/09/18 08:37 Dose: 81 mg Atorvastatin Calcium (Lipitor) 20 mg PO HS [facility] Last Admin: 07/08/18 21:51 Dose: 20 mg Docusate Sodium (Colace) 100 mg PO BID [facility] Last Admin: 07/09/18 08:37 Dose: Not Given Enoxaparin Sodium (Lovenox) 40 mg SC DAILY [facility]; Protocol Last Admin: 07/09/18 08:39 Dose: 40 mg Folic Acid (Folic Acid) 1 mg NG DAILY [facility] Last Admin: 07/09/18 08:37 Dose: 1 mg Furosemide (Lasix) 40 mg IVP BID [facility] Last Admin: 07/09/18 08:43 Dose: 40 mg Cefepime HCl 2 gm/ Sodium (Chloride) 100 mls @ 100 mls/hr IVPB Q12 [facility]; Protocol Last Admin: 07/09/18 08:39 Dose: 100 mls/hr Vancomycin HCl 750 mg/ Sodium (Chloride) 250 mls @ 166.667 mls/hr IVPB Q12 [facility]; Protocol Last Admin: 07/09/18 08:41 Dose: 166.667 mls/hr Propofol (Diprivan) 1,000 mg in 100 mls @ 10.723 mls/hr IV .Q9H20M [facility]; Protocol Stop: 07/10/18 08:38 Lactic Acid (Lac-Hydrin 12% Lotion (225 G)) 1 applic TOP TID [facility] Last Admin: 07/09/18 08:37 Dose: 1 applic Lactulose (Enulose) 10 gm PO DAILY PRN PRN Reason: Constipation Magnesium Oxide (Mag-Ox) 400 mg PO DAILY [facility] Last Admin: 07/09/18 08:39 Dose: 400 mg Metoprolol Tartrate (Lopressor) 25 mg PO Q12 [facility] Last Admin: 07/09/18 08:38 Dose: 25 mg Morphine Sulfate (Morphine) 2 mg IVP Q4H PRN PRN Reason: Pain, severe (8-10) Nystatin (Nystop Topical Powder) 1 applic TOP TID [facility] Last Admin: 07/09/18 08:40 Dose: 1 applic Ondansetron HCl (Zofran Inj) 4 mg IVP Q6H PRN PRN Reason: Nausea/Vomiting Pantoprazole Sodium (Protonix Ec Tab) 40 mg PO DAILY [facility] Last Admin: 07/09/18 08:40 Dose: 40 mg Pyridostigmine [place] (Mestinon Tab) 30 mg PO TID [facility] Last Admin: 07/09/18 08:40 Dose: 30 mg Sennosides (Senokot Tab) 8.6 mg PO BID [facility] Last Admin: 07/09/18 08:40 Dose: Not Given Spironolactone (Aldactone) 25 mg PO BID [facility] Last Admin: 07/09/18 08:37 Dose: 25 mg Thiamine HCl (Vitamin B1 Tab) 100 mg NG DAILY [facility] Last Admin: 07/09/18 08:41 Dose: 100 mg - Labs Labs: 07/09/18 05:00 07/09/18 05:00 PT 12.6 Seconds (9.8-13.1) 07/08/18 00:19 INR 1.1 07/08/18 00:19 APTT 32.7 Seconds (25.6-37.1) 07/08/18 00:19 Assessment and Plan (1) Respiratory failure with hypoxia and hypercapnia Status: Acute (2) Endotracheally intubated Status: Acute (3) Pleural effusion, left Status: Suspected (4) Dependent edema Status: Chronic (5) Cellulitis Status: Acute (6) COPD (chronic obstructive pulmonary disease) Status: Chronic (7) Pneumonia Status: Suspected
[2018-07-09] MEDS ORDERED: Azithromycin 500 MG in Sodium Chloride 0.9% 250 ML IVPB STA (09:31)
[2018-07-09 09:32] LABS: SQUAMOUS EPITHIAL < 1 /hpf (0-5); URINE BACTERIA RARE (<OCC); URINE BILIRUBIN NEGATIVE (NEGATIVE); URINE BLOOD MODERATE (NEGATIVE); URINE CLARITY SLIGHTY-CLOUDY (Clear); URINE COLOR YELLOW (YELLOW); URINE GLUCOSE (UA) NEG (NEGATIVE); URINE HYALINE CAST 0-2 /hpf (0-2); URINE LEUKOCYTE ESTERASE SMALL Leu/uL (Negative); URINE PROTEIN 30 mg/dL (NEGATIVE); URINE UROBILINOGEN 0.2-1.0 mg/dL (0.2-1.0)
--- NOTE | 2018-07-09 11:08 | CP.CCUPN ---
<Sultan Lilia - Last Filed: 07/09/18 10:59> CCU Subjective - Physician Review Subjective (Free Text): 07/09/18 10:59 Patient seen and examined this morning in ICU Overnight events and nursing notes reviewed. Patient is orally intubated with current vent setting of PRVC AC TV 450, RR 14, PEEP 5, FiO2 55% Sedated, arousable to verbal stimuli Afebrile now (last fever 100.9 F yesterday at 12 pm). BP low normal with HR in 90s. CXR shows JULIÁN infiltrates WBC increased to 20.4 with 12% bands Pulmocare at 55cc/hr via OGT [place] in placed draining yellow colored urine I/O's 3596/1025 in last 24 hours CCU Objective - Vital Signs / Intake & Output Vital Signs (Last 4 hours): Vital Signs Temp Pulse Resp BP Pulse Ox 07/09/18 10:00 96 H 14 104/54 L 96 07/09/18 09:00 104 H 14 91/53 L 95 07/09/18 08:43 101/62 07/09/18 08:38 105 H 101/62 07/09/18 07:58 99.3 F 104 H 13 101/62 94 L 07/09/18 07:00 99.3 F 102 H 16 97/57 L 97 Intake and Output (Last 8hrs): Intake & Output 07/08/18 07/09/18 07/09/18 22:59 06:59 14:59 Intake Total 1432 1124 765 Output Total 115 250 55 Balance 1317 874 710 Weight 89.358 kg Intake: IV 42 184 Intake, Piggyback 350 350 Tube Feeding 540 440 165 Free Water Flush 500 500 250 Output: Urine 115 250 55 Urethral (Hyde) 115 250 55 Other: # Bowel Movements 1 - Physical Exam Head: Positive for: Atraumatic Pupils: Positive for: PERRL Mouth: Positive for: Other (orally intubated) Respiratory/Chest: Positive for: Other (Rales on B/L lower lung field and left lung). Negative for: Wheezes Cardiovascular: Positive for: Irregular Rhythm Abdomen: Positive for: Distention, Normal Bowel Sounds. Negative for: Tenderness, Peritoneal Signs Upper Extremity: Positive for: Normal Inspection Lower Extremity: Positive for: Edema (2+), Other (Moderate erythema and swelling of right lower extermity. has mild swelling on left lower extremity. ) Skin: Positive for: Warm Psychiatric: Negative for: Alert - Medications Active Medications: Active Medications Generic Name Dose Route Start Last Admin Trade Name Freq PRN Reason Stop Dose Admin Acetaminophen 650 mg 07/08/18 08:01 07/08/18 08:13 Tylenol 650mg/20.3ml Solution Ud NG 650 mg Q6 PRN Administration Fever>100.4F Albuterol/Ipratropium 3 ml 07/08/18 14:00 07/09/18 08:33 Duoneb 3 Mg/0.5 Mg (3 Ml) Ud INH 3 ml RQ6 LISSA Administration Aspirin 81 mg 07/08/18 09:00 07/09/18 08:37 Ecotrin PO 81 mg DAILY LISSA Administration Atorvastatin Calcium 20 mg 07/08/18 22:00 07/08/18 21:51 Lipitor PO 20 mg HS LISSA Administration Docusate Sodium 100 mg 07/08/18 09:00 07/09/18 08:37 Colace PO Not Given BID LISSA Enoxaparin Sodium 40 mg 07/08/18 09:00 07/09/18 08:39 Lovenox SC 40 mg DAILY LISSA Administration Protocol Folic Acid 1 mg 07/08/18 11:15 07/09/18 08:37 Folic Acid NG 1 mg DAILY LISSA Administration Furosemide 40 mg 07/08/18 09:00 07/09/18 08:43 Lasix IVP 40 mg BID LISSA Administration Cefepime HCl 2 gm/ Sodium 100 mls @ 100 mls/hr 07/08/18 07:15 07/09/18 08:39 Chloride IVPB 100 mls/hr Q12 LISSA Administration Protocol Vancomycin HCl 750 mg/ Sodium 250 mls @ 166.667 mls/hr 07/08/18 21:00 07/09/18 08:41 Chloride IVPB 166.667 mls/hr Q12 LISSA Administration Protocol Propofol 1,000 mg in 100 mls @ 10.723 mls/hr 07/09/18 08:45 Diprivan IV 07/10/18 08:38 .Q9H20M LISSA Protocol 20 MCG/KG/MIN Lactic Acid 1 applic 07/08/18 09:00 07/09/18 08:37 Lac-Hydrin 12% Lotion (225 G) TOP 1 applic TID LISSA Administration Lactulose 10 gm 07/08/18 03:46 Enulose PO DAILY PRN Constipation Magnesium Oxide 400 mg 07/08/18 09:00 07/09/18 08:39 Mag-Ox PO 400 mg DAILY LISSA Administration Metoprolol Tartrate 25 mg 07/08/18 09:00 07/09/18 08:38 Lopressor PO 25 mg Q12 LISSA Administration Morphine Sulfate 2 mg 07/08/18 03:44 Morphine IVP Q4H PRN Pain, severe (8-10) Nystatin 1 applic 07/08/18 13:00 07/09/18 08:40 Nystop Topical Powder TOP 1 applic TID LISSA Administration Ondansetron HCl 4 mg 07/08/18 03:44 Zofran Inj IVP Q6H PRN Nausea/Vomiting Pantoprazole Sodium 40 mg 07/08/18 09:00 07/09/18 08:40 Protonix Ec Tab PO 40 mg DAILY LISSA Administration Pyridostigmine [place] 30 mg 07/08/18 09:00 07/09/18 08:40 Mestinon Tab PO 30 mg TID LISSA Administration Sennosides 8.6 mg 07/08/18 09:00 07/09/18 08:40 Senokot Tab PO Not Given BID [facility] Spironolactone 25 mg 07/08/18 09:00 07/09/18 08:37 Aldactone PO 25 mg BID LISSA Administration Thiamine HCl 100 mg 07/08/18 11:15 07/09/18 08:41 Vitamin B1 Tab NG 100 mg DAILY LISSA Administration - Patient Studies Lab Studies: Microbiology Studies 07/08/18 00:35 Blood Culture - Preliminary Blood-Venous NO GROWTH AFTER 24 HOURS 07/08/18 00:19 Blood Culture - Preliminary Blood-Venous NO GROWTH AFTER 24 HOURS 07/08/18 09:00 Gram Stain - Final Trachasp Lab Studies 07/09/18 07/09/18 07/09/18 Range/Units 05:11 05:00 05:00 WBC 20.4 H (4.8-10.8) K/uL RBC 3.28 L (4.40-5.90) Mil/uL Hgb 9.4 L (12.0-18.0) g/dL Hct 31.2 L (35.0-51.0) % MCV 95.2 H (80.0-94.0) fl MCH 28.8 (27.0-31.0) pg MCHC 30.2 L (33.0-37.0) g/dL RDW 16.4 H (11.5-14.5) % Plt Count 174 (130-400) K/uL MPV 9.2 (7.2-11.7) fl Neut % (Auto) 77.5 H (50.0-75.0) % Lymph % (Auto) 7.0 L (20.0-40.0) % [place] % (Auto) 14.6 H (0.0-10.0) % Eos % (Auto) 0.4 (0.0-4.0) % Baso % (Auto) 0.5 (0.0-2.0) % Neut # (Auto) 15.8 H (1.8-7.0) K/uL Lymph # (Auto) 1.4 (1.0-4.3) K/uL [place] # (Auto) 3.0 H (0.0-0.8) K/uL Eos # (Auto) 0.1 (0.0-0.7) K/uL Baso # (Auto) 0.1 (0.0-0.2) K/uL Neutrophils % (Manual) 68 (42-75) % Band Neutrophils % 12 H* (0-2) % Lymphocytes % (Manual) 5 L (20-50) % Monocytes % (Manual) 14 H (0-10) % Eosinophils % (Manual) 1 (0-7) % Platelet Estimate Normal (NORMAL) Large Platelets Present Hypochromasia (manual) Slight Poikilocytosis (manual Slight Basophilic Stippling Slight Anisocytosis (manual) Slight Ovalocytes Slight pCO2 74 H* (35-45) mm/Hg pO2 81 (80-100) mm/Hg HCO3 31.9 H (21-28) mmol/L ABG pH 7.32 L (7.35-7.45) ABG Total CO2 40.4 H (22-28) mmol/L ABG O2 Saturation 98.5 H (95-98) % ABG Base Excess 9.0 H (-2.0-3.0) mmol/L Nam Test Yes ABG Potassium 4.1 (3.6-5.2) mmol/L A-a O2 Difference 326.0 mm/Hg Sodium 137.0 137 (132-148) mmol/L Chloride 101.0 98 (98-107) mmol/L Glucose 179 H (75-110) mg/dL Lactate 1.5 (0.7-2.1) mmol/L Vent Mode A/c Mechanical Rate 12 FiO2 70.0 % Tidal Volume 450 PEEP 5 Crit Value Called To Jolly osullivan Crit Value Called By Mele Crit Value Read Back Y Blood Gas Notified Time 524 Potassium 4.2 (3.6-5.0) MMOL/L Carbon Dioxide 34 H (22-30) mmol/L Anion Gap 9 L (10-20) BUN 32 H (9-20) mg/dl Creatinine 1.2 (0.8-1.5) mg/dl Est GFR ( Amer) > 60 Est GFR (Non-Af Amer) 57 Random Glucose 170 H (75-110) mg/dL Calcium 8.1 L (8.4-10.2) mg/dL Phosphorus 2.4 L (2.5-4.5) mg/dl Magnesium 2.2 (1.6-2.3) MG/DL Total Bilirubin 0.6 (0.2-1.3) mg/dl AST 21 (17-59) U/L ALT 26 (21-72) U/L Alkaline Phosphatase 66 (38-126) U/L Total Protein 5.8 L (6.3-8.2) G/DL Albumin 3.0 L D (3.5-5.0) g/dL Globulin 2.8 (2.2-3.9) gm/dL Albumin/Globulin Ratio 1.1 (1.0-2.1) Arterial Blood Potassium 4.1 (3.6-5.2) mmol/L Urine Color (YELLOW) Urine Clarity (Clear) Urine pH (5.0-8.0) Ur Specific [place] (1.003-1.030) Urine Protein (NEGATIVE) mg/dL Urine Glucose (UA) (NEGATIVE) mg/dL Urine Ketones (NEGATIVE) mg/dL Urine Blood (NEGATIVE) Urine Nitrate (NEGATIVE) Urine Bilirubin (NEGATIVE) Urine Urobilinogen (0.2-1.0) mg/dL Ur Leukocyte Esterase (Negative) Danita/uL Urine RBC (Auto) (0-3) /hpf Urine Microscopic WBC (0-5) /hpf Ur Squamous Epith Cells (0-5) /hpf Urine Bacteria (<OCC) Hyaline Casts (0-2) /hpf Stool Leukocytes, Qual (NEGATIVE) 07/08/18 07/08/18 07/08/18 Range/Units 11:00 09:14 09:00 WBC (4.8-10.8) K/uL RBC (4.40-5.90) Mil/uL Hgb (12.0-18.0) g/dL Hct (35.0-51.0) % MCV (80.0-94.0) fl MCH (27.0-31.0) pg MCHC (33.0-37.0) g/dL RDW (11.5-14.5) % Plt Count (130-400) K/uL MPV (7.2-11.7) fl Neut % (Auto) (50.0-75.0) % Lymph % (Auto) (20.0-40.0) % [place] % (Auto) (0.0-10.0) % Eos % (Auto) (0.0-4.0) % Baso % (Auto) (0.0-2.0) % Neut # (Auto) (1.8-7.0) K/uL Lymph # (Auto) (1.0-4.3) K/uL [place] # (Auto) (0.0-0.8) K/uL Eos # (Auto) (0.0-0.7) K/uL Baso # (Auto) (0.0-0.2) K/uL Neutrophils % (Manual) (42-75) % Band Neutrophils % (0-2) % Lymphocytes % (Manual) (20-50) % Monocytes % (Manual) (0-10) % Eosinophils % (Manual) (0-7) % Platelet Estimate (NORMAL) Large Platelets Hypochromasia (manual) Poikilocytosis (manual Basophilic Stippling Anisocytosis (manual) Ovalocytes pCO2 75 H* (35-45) mm/Hg pO2 72 L (80-100) mm/Hg HCO3 33.0 H (21-28) mmol/L ABG pH 7.32 L (7.35-7.45) ABG Total CO2 40.9 H (22-28) mmol/L ABG O2 Saturation 98.2 H (95-98) % ABG Base Excess 10.4 H (-2.0-3.0) mmol/L Nam Test Yes ABG Potassium 3.9 (3.6-5.2) mmol/L A-a O2 Difference 333.0 mm/Hg Sodium 138.0 (132-148) mmol/L Chloride 103.0 (98-107) mmol/L Glucose 139 H (75-110) mg/dL Lactate 1.2 (0.7-2.1) mmol/L Vent Mode A/c Mechanical Rate 10 FiO2 70.0 % Tidal Volume 450 PEEP 5 Crit Value Called To Dr pio mccloud Crit Value Called By 15 Crit Value Read Back Y Blood Gas Notified Time 1139 Potassium (3.6-5.0) MMOL/L Carbon Dioxide (22-30) mmol/L Anion Gap (10-20) BUN (9-20) mg/dl Creatinine (0.8-1.5) mg/dl Est GFR ( Amer) Est GFR (Non-Af Amer) Random Glucose (75-110) mg/dL Calcium (8.4-10.2) mg/dL Phosphorus (2.5-4.5) mg/dl Magnesium (1.6-2.3) MG/DL Total Bilirubin (0.2-1.3) mg/dl AST (17-59) U/L ALT (21-72) U/L Alkaline Phosphatase (38-126) U/L Total Protein (6.3-8.2) G/DL Albumin (3.5-5.0) g/dL Globulin (2.2-3.9) gm/dL Albumin/Globulin Ratio (1.0-2.1) Arterial Blood Potassium 3.9 (3.6-5.2) mmol/L Urine Color Yellow (YELLOW) Urine Clarity Slighty-cloudy (Clear) Urine pH 5.0 (5.0-8.0) Ur Specific [place] 1.017 (1.003-1.030) Urine Protein 30 (NEGATIVE) mg/dL Urine Glucose (UA) Neg (NEGATIVE) mg/dL Urine Ketones Negative (NEGATIVE) mg/dL Urine Blood Moderate (NEGATIVE) Urine Nitrate Negative (NEGATIVE) Urine Bilirubin Negative (NEGATIVE) Urine Urobilinogen 0.2-1.0 (0.2-1.0) mg/dL Ur Leukocyte Esterase Small (Negative) [place]ita/uL Urine RBC (Auto) 16 H (0-3) /hpf Urine Microscopic WBC 6 H (0-5) /hpf Ur Squamous Epith Cells < 1 (0-5) /hpf Urine Bacteria Rare (<OCC) Hyaline Casts 0-2 (0-2) /hpf Stool Leukocytes, Qual Negative (NEGATIVE) Laboratory Results - last 24 hr 07/08/18 07/08/18 07/08/18 09:00 09:14 11:00 WBC RBC Hgb Hct MCV MCH MCHC RDW Plt Count MPV Neut % (Auto) Lymph % (Auto) [place] % (Auto) Eos % (Auto) Baso % (Auto) Neut # (Auto) Lymph # (Auto) [place] # (Auto) Eos # (Auto) Baso # (Auto) Neutrophils % (Manual) Band Neutrophils % Lymphocytes % (Manual) Monocytes % (Manual) Eosinophils % (Manual) Platelet Estimate Large Platelets Hypochromasia (manual) Poikilocytosis (manual Basophilic Stippling Anisocytosis (manual) Ovalocytes pCO2 75 H* pO2 72 L HCO3 33.0 H ABG pH 7.32 L ABG Total CO2 40.9 H ABG O2 Saturation 98.2 H ABG Base Excess 10.4 H Nam Test Yes ABG Potassium 3.9 A-a O2 Difference 333.0 Sodium 138.0 Chloride 103.0 Glucose 139 H Lactate 1.2 Vent Mode A/c Mechanical Rate 10 FiO2 70.0 Tidal Volume 450 PEEP 5 Crit Value Called To Dr pio mccloud Crit Value Called By 15 Crit Value Read Back Y Blood Gas Notified Time 1139 Potassium Carbon Dioxide Anion Gap BUN Creatinine Est GFR ( Amer) Est GFR (Non-Af Amer) Random Glucose Calcium Phosphorus Magnesium Total Bilirubin AST ALT Alkaline Phosphatase Total Protein Albumin Globulin Albumin/Globulin Ratio Arterial Blood Potassium 3.9 Urine Color Yellow Urine Clarity Slighty-cloudy Urine pH 5.0 Ur Specific [place] 1.017 Urine Protein 30 Urine Glucose (UA) Neg Urine Ketones Negative Urine Blood Moderate Urine Nitrate Negative Urine Bilirubin Negative Urine Urobilinogen 0.2-1.0 Ur Leukocyte Esterase Small Urine RBC (Auto) 16 H Urine Microscopic WBC 6 H Ur Squamous Epith Cells < 1 Urine Bacteria Rare Hyaline Casts 0-2 Stool Leukocytes, Qual Negative 07/09/18 07/09/18 07/09/18 05:00 05:00 05:11 WBC 20.4 H RBC 3.28 L Hgb 9.4 L Hct 31.2 L MCV 95.2 H MCH 28.8 MCHC 30.2 L RDW 16.4 H Plt Count 174 MPV 9.2 Neut % (Auto) 77.5 H Lymph % (Auto) 7.0 L [place] % (Auto) 14.6 H Eos % (Auto) 0.4 Baso % (Auto) 0.5 Neut # (Auto) 15.8 H Lymph # (Auto) 1.4 [place] # (Auto) 3.0 H Eos # (Auto) 0.1 Baso # (Auto) 0.1 Neutrophils % (Manual) 68 Band Neutrophils % 12 H* Lymphocytes % (Manual) 5 L Monocytes % (Manual) 14 H Eosinophils % (Manual) 1 Platelet Estimate Normal Large Platelets Present Hypochromasia (manual) Slight Poikilocytosis (manual Slight Basophilic Stippling Slight Anisocytosis (manual) Slight Ovalocytes Slight pCO2 74 H* pO2 81 HCO3 31.9 H ABG pH 7.32 L ABG Total CO2 40.4 H ABG O2 Saturation 98.5 H ABG Base Excess 9.0 H Nam Test Yes ABG Potassium 4.1 A-a O2 Difference 326.0 Sodium 137 137.0 Chloride 98 101.0 Glucose 179 H Lactate 1.5 Vent Mode A/c Mechanical Rate 12 FiO2 70.0 Tidal Volume 450 PEEP 5 Crit Value Called To Jolly osullivan Crit Value Called By Mele Crit Value Read Back Y Blood Gas Notified Time 524 Potassium 4.2 Carbon Dioxide 34 H Anion Gap 9 L BUN 32 H Creatinine 1.2 Est GFR ( Amer) > 60 Est GFR (Non-Af Amer) 57 Random Glucose 170 H Calcium 8.1 L Phosphorus 2.4 L Magnesium 2.2 Total Bilirubin 0.6 AST 21 ALT 26 Alkaline Phosphatase 66 Total Protein 5.8 L Albumin 3.0 L D Globulin 2.8 Albumin/Globulin Ratio 1.1 Arterial Blood Potassium 4.1 Urine Color Urine Clarity Urine pH Ur Specific [place] Urine Protein Urine Glucose (UA) Urine Ketones Urine Blood Urine Nitrate Urine Bilirubin Urine Urobilinogen Ur Leukocyte Esterase Urine RBC (Auto) Urine Microscopic WBC Ur Squamous Epith Cells Urine Bacteria Hyaline Casts Stool Leukocytes, Qual Radiology Impressions: Radiology Impressions Chest X-Ray 07/08/18 00:15 IMPRESSION: Small to moderate left pleural effusion. No other significant abnormality. Chest X-Ray 07/08/18 02:20 IMPRESSION: Moderate left pleural effusion. Cannot exclude underlying pulmonary infiltrate on the left side. Endotracheal tube noted with its tip approximately 1.7 cm above the tracheal brian. Abdomen X-Ray 07/09/18 06:00 IMPRESSION: Nonspecific bowel gas pattern. Paucity of bowel gas. Artifact or possible iodinated contrast material within the gallbladder. Nasogastric tube identified placed terminating the region of the gastric viscus. Chest X-Ray 07/09/18 06:00 IMPRESSION: Orogastric tube has been placed with the distal segment poorly characterized in this exam. Repeat abdomen or chest radiograph advised for confirmation of termination of OGT. Diminished left pleural effusion. Persistent airspace disease left chest. Review of Systems - Review of Systems Review of Systems: unable to review ROS due to s/p intubation Assessment/Plan - Assessment and Plan (Free Text) Assessment: 88 yo Male with PMHx of HTN, HLD, COPD, pulmonary hypertension, HFpEF, s/p TAVR, Chronic A-fib (Eliquis on hold due to +FOBT?), recurrent pleural effusion admitted to ICU for acute hypoxemic hypercapneic respiratory failure. Acute hypoxemic hypercapneic respiratory failure likely secondary to HAP -Current Vent setting of PRVC AC TV 450, RR 14, PEEP 5, FiO2 of 55% -slowly wean off from ventilator and plan to extubate over the weekend -CXR shows left upper lobe pneumonia -c/w Vancomycin 750 mg q12 -c/w maxipime 2mg q12 -s/p one dose of Azithromycin 500 mg today -Serial ABGs -pulmonary toilets -Duoneb q6 hrs -ID consult: Dr. Grewal -Pulmonary consult: Dr. Dickens -f/u blood cx and sputum cx -Sputum gram stain: rare gram positive cocci -AM labs Acute CHF exacerbation -HFpEF (ECHO on 06/16/18 shows EF 55-60%, LA severely dilated, Moderate aortic valve stenosis) -ProBNP 5580 -c/w lasix 40 mg Q12 -Cardiology consult: Dr. Santos -f/u AM labs Lower extremity cellulitis (R>L) -B/L duplex US: neg for DVT -on Vancomycin 750 mg q12 -f/u AM labs Diarrhea (improved) - C diff toxins negative - Stool Ova and parasite - Stool culture Hx Atrial fibrillation and Aortic stenosis s/p TAVR -Hold metoprolol 25 mg q12 due to low BP -Will give IV lopressor if needed. -Not on AC due to +FOBT in 05/2018 Alcohol use disorder -c/w thiamin and folic acid daily -Monitor EtOH withdrawal symptoms Diet: -OG Tube feeds, pulmocare @ 55 cc/hr GI prophylaxis -Protononix 40 mg NG daily DVT prophylaxis -Lovenox 40 mg SC daily Patient seen, examined and plan discussed with Dr. Jorge Luis Rodrigues, pgy-2 <Pio Mccloud - Last Filed: 07/09/18 15:28> Assessment/Plan - Assessment and Plan (Free Text) Plan: Time spent with this patient did not overlap with any other provider's medical or critical care time. Additionally the code selected for the services rendered in this note includes the time spent: talking to the patients family, associated physicians and reviewing hospital data/results not listed here which extended to a total of 40 minutes of critical care. Attestation: Patient seen and examined at the bedside with Resident Dr. Mariaa Rodrigues; and I agree with his outline of plans and management documented above as discussed on AM rounds reflecting my review of all applicable clinical data, and participation in the care of the patient throughout the day in ICU; today, July 09, 2018.
[2018-07-09] MEDS: Meropenem 1 GM in Sodium Chloride 0.9% 100 ML IVPB SCH ×2 (12:17→16:01)
--- NOTE | 2018-07-09 12:34 | CP.PCM.PN ---
Subjective - Date & Time of Evaluation Date of Evaluation: 07/09/18 Time of Evaluation: 09:00 - Subjective Subjective: 88 yo Male with PMHx of HTN, HLD, COPD, pulmonary hypertension, HFpEF, s/p TAVR, Chronic A-fib (Eliquis on hold due to +FOBT?), recurrent pleural effusion, admitted with respiratory distress and is now intubated in ICU . Was discharged earlier this month after being treated fpr ANTHONY and CHF exacerbation s/p right thoracenthesis ID consulted for antibiotic management of pneumonia sepsis and resp failure with severe cellulitis RLE WBC higher despite Vanco/ Cefepime IV antibiotics adjusted Merrem on board Cefepime d/c'd cultures pending Objective - Vital Signs/Intake and Output Vital Signs (last 24 hours): Temp Pulse Resp BP Pulse Ox 99.5 F 94 H 18 112/63 96 07/09/18 12:00 07/09/18 12:00 07/09/18 12:00 07/09/18 12:00 07/09/18 12:00 Intake and Output: 07/09/18 07/09/18 06:59 18:59 Intake Total 1986 1375 Output Total 250 95 Balance 1736 1280 - Medications Medications: Current Medications Acetaminophen (Tylenol 650mg/20.3ml Solution Ud) 650 mg NG Q6 PRN PRN Reason: Fever>100.4F Last Admin: 07/08/18 08:13 Dose: 650 mg Albuterol/Ipratropium (Duoneb 3 Mg/0.5 Mg (3 Ml) Ud) 3 ml INH RQ6 [facility] Last Admin: 07/09/18 08:33 Dose: 3 ml Aspirin (Ecotrin) 81 mg PO DAILY [facility] Last Admin: 07/09/18 08:37 Dose: 81 mg Atorvastatin Calcium (Lipitor) 20 mg PO HS [facility] Last Admin: 07/08/18 21:51 Dose: 20 mg Docusate Sodium (Colace) 100 mg PO BID [facility] Last Admin: 07/09/18 08:37 Dose: Not Given Enoxaparin Sodium (Lovenox) 40 mg SC DAILY [facility]; Protocol Last Admin: 07/09/18 08:39 Dose: 40 mg Folic Acid (Folic Acid) 1 mg NG DAILY [facility] Last Admin: 07/09/18 08:37 Dose: 1 mg Furosemide (Lasix) 40 mg IVP BID [facility] Last Admin: 04/12/19 08:43 Dose: 40 mg Vancomycin HCl 750 mg/ Sodium (Chloride) 250 mls @ 166.667 mls/hr IVPB Q12 [facility]; Protocol Last Admin: 07/09/18 08:41 Dose: 166.667 mls/hr Propofol (Diprivan) 1,000 mg in 100 mls @ 10.723 mls/hr IV .Q9H20M [facility]; Protocol Stop: 07/10/18 08:38 Meropenem 1 gm/ Sodium (Chloride) 100 mls @ 100 mls/hr IVPB Q8 [facility]; Protocol Last Admin: 07/09/18 12:17 Dose: 100 mls/hr Lactic Acid (Lac-Hydrin 12% Lotion (225 G)) 1 applic TOP TID [facility] Last Admin: 07/09/18 12:05 Dose: 1 applic Lactulose (Enulose) 10 gm PO DAILY PRN PRN Reason: Constipation Magnesium Oxide (Mag-Ox) 400 mg PO DAILY [facility] Last Admin: 07/09/18 08:39 Dose: 400 mg Metoprolol Tartrate (Lopressor) 25 mg PO Q12 [facility] Last Admin: 07/09/18 08:38 Dose: 25 mg Morphine Sulfate (Morphine) 2 mg IVP Q4H PRN PRN Reason: Pain, severe (8-10) Nystatin (Nystop Topical Powder) 1 applic TOP TID [facility] Last Admin: 07/09/18 12:06 Dose: 1 applic Ondansetron HCl (Zofran Inj) 4 mg IVP Q6H PRN PRN Reason: Nausea/Vomiting Pantoprazole Sodium (Protonix Ec Tab) 40 mg PO DAILY [facility] Last Admin: 07/09/18 08:40 Dose: 40 mg Pyridostigmine [place] (Mestinon Tab) 30 mg PO TID [facility] Last Admin: 07/09/18 12:06 Dose: 30 mg Sennosides (Senokot Tab) 8.6 mg PO BID [facility] Last Admin: 07/09/18 08:40 Dose: Not Given Spironolactone (Aldactone) 25 mg PO BID [facility] Last Admin: 07/09/18 08:37 Dose: 25 mg Thiamine HCl (Vitamin B1 Tab) 100 mg NG DAILY [facility] Last Admin: 07/09/18 08:41 Dose: 100 mg - Labs Labs: 07/09/18 05:00 07/09/18 05:00 PT 12.6 Seconds (9.8-13.1) 07/08/18 00:19 INR 1.1 07/08/18 00:19 APTT 32.7 Seconds (25.6-37.1) 07/08/18 00:19 - Constitutional Appears: Non-toxic, Chronically Ill - Head Exam Head Exam: ATRAUMATIC, NORMOCEPHALIC - Eye Exam Eye Exam: absent: Scleral icterus Pupil Exam: PERRL - ENT Exam ENT Exam: Mucous Membranes Dry Additional comments: ETT in place - Neck Exam Neck Exam: absent: Lymphadenopathy - Respiratory Exam Respiratory Exam: Decreased Breath Sounds - Cardiovascular Exam Cardiovascular Exam: REGULAR RHYTHM - GI/Abdominal Exam GI & Abdominal Exam: Distended, Soft. absent: Tenderness - Rectal Exam Rectal Exam: Deferred - Exam Exam: NORMAL INSPECTION - Extremities Exam Extremities Exam: absent: Pedal Edema - Back Exam Back Exam: absent: CVA tenderness (L), CVA tenderness (R) - Neurological Exam Neurological Exam: Alert, Awake, CN II-XII Intact, Oriented x3 - Psychiatric Exam Psychiatric exam: Depressed - Skin Skin Exam: Dry, Erythema, Intact, Warm. absent: Normal Color Assessment and Plan (1) Cellulitis of right lower leg Status: Acute (2) Atrial fibrillation Status: Acute (3) CHF (congestive heart failure) Status: Acute (4) Endotracheally intubated Status: Acute (5) Respiratory distress Status: Acute (6) Respiratory failure with hypoxia and hypercapnia Status: Acute (7) Dependent edema Status: Chronic (8) Pleural effusion, left Status: Suspected (9) Pneumonia Status: Suspected (10) COPD (chronic obstructive pulmonary disease) Status: Chronic (11) Sepsis Status: Acute - Assessment and Plan (Free Text) Assessment: 88 yo Male with PMHx of HTN, HLD, COPD, pulmonary hypertension, HFpEF, s/p TAVR, Chronic A-fib (Eliquis on hold due to +FOBT?), recurrent pleural effusion, admitted with respiratory distress and is now intubated in ICU . Was discharged earlier this month after being treated fpr ANTHONY and CHF exacerbation s/p right thoracenthesis ID consulted for antibiotic management of pneumonia sepsis and resp failure with severe cellulitis RLE WBC higher despite Vanco/ Cefepime IV antibiotics adjusted Merrem added Cefepime d/c'd cultures pending
--- NOTE | 2018-07-09 13:41 | CP.PCM.PN ---
Subjective - Date & Time of Evaluation Date of Evaluation: 07/09/18 Time of Evaluation: 13:39 - Subjective Subjective: intubated sedated Objective - Vital Signs/Intake and Output Vital Signs (last 24 hours): Temp Pulse Resp BP Pulse Ox 99.5 F 92 H 15 100/61 96 07/09/18 12:00 07/09/18 12:56 07/09/18 12:56 07/09/18 12:56 07/09/18 12:56 Intake and Output: 07/09/18 07/09/18 06:59 18:59 Intake Total 1986 1375 Output Total 250 95 Balance 1736 1280 - Medications Medications: Current Medications Acetaminophen (Tylenol 650mg/20.3ml Solution Ud) 650 mg NG Q6 PRN PRN Reason: Fever>100.4F Last Admin: 07/08/18 08:13 Dose: 650 mg Albuterol/Ipratropium (Duoneb 3 Mg/0.5 Mg (3 Ml) Ud) 3 ml INH RQ6 [facility] Last Admin: 07/09/18 08:33 Dose: 3 ml Aspirin (Ecotrin) 81 mg PO DAILY [facility] Last Admin: 07/09/18 08:37 Dose: 81 mg Atorvastatin Calcium (Lipitor) 20 mg PO HS [facility] Last Admin: 07/08/18 21:51 Dose: 20 mg Docusate Sodium (Colace) 100 mg PO BID [facility] Last Admin: 07/09/18 08:37 Dose: Not Given Enoxaparin Sodium (Lovenox) 40 mg SC DAILY [facility]; Protocol Last Admin: 07/09/18 08:39 Dose: 40 mg Folic Acid (Folic Acid) 1 mg NG DAILY [facility] Last Admin: 07/09/18 08:37 Dose: 1 mg Furosemide (Lasix) 40 mg IVP BID [facility] Last Admin: 07/09/18 08:43 Dose: 40 mg Vancomycin HCl 750 mg/ Sodium (Chloride) 250 mls @ 166.667 mls/hr IVPB Q12 [facility]; Protocol Last Admin: 07/09/18 08:41 Dose: 166.667 mls/hr Propofol (Diprivan) 1,000 mg in 100 mls @ 10.723 mls/hr IV .Q9H20M [facility]; Protocol Stop: 07/10/18 08:38 Meropenem 1 gm/ Sodium (Chloride) 100 mls @ 100 mls/hr IVPB Q8 [facility]; Protocol Last Admin: 07/09/18 12:17 Dose: 100 mls/hr Lactic Acid (Lac-Hydrin 12% Lotion (225 G)) 1 applic TOP TID [facility] Last Admin: 07/09/18 12:05 Dose: 1 applic Lactulose (Enulose) 10 gm PO DAILY PRN PRN Reason: Constipation Magnesium Oxide (Mag-Ox) 400 mg PO DAILY [facility] Last Admin: 07/09/18 08:39 Dose: 400 mg Metoprolol Tartrate (Lopressor) 25 mg PO Q12 [facility] Last Admin: 07/09/18 08:38 Dose: 25 mg Morphine Sulfate (Morphine) 2 mg IVP Q4H PRN PRN Reason: Pain, severe (8-10) Nystatin (Nystop Topical Powder) 1 applic TOP TID [facility] Last Admin: 07/09/18 12:06 Dose: 1 applic Ondansetron HCl (Zofran Inj) 4 mg IVP Q6H PRN PRN Reason: Nausea/Vomiting Pantoprazole Sodium (Protonix Ec Tab) 40 mg PO DAILY [facility] Last Admin: 07/09/18 08:40 Dose: 40 mg Pyridostigmine [place] (Mestinon Tab) 30 mg PO TID [facility] Last Admin: 07/09/18 12:06 Dose: 30 mg Sennosides (Senokot Tab) 8.6 mg PO BID [facility] Last Admin: 07/09/18 08:40 Dose: Not Given Spironolactone (Aldactone) 25 mg PO BID [facility] Last Admin: 07/09/18 08:37 Dose: 25 mg Thiamine HCl (Vitamin B1 Tab) 100 mg NG DAILY [facility] Last Admin: 07/09/18 08:41 Dose: 100 mg - Labs Labs: 07/09/18 05:00 07/09/18 05:00 PT 12.6 Seconds (9.8-13.1) 07/08/18 00:19 INR 1.1 07/08/18 00:19 APTT 32.7 Seconds (25.6-37.1) 07/08/18 00:19 - Respiratory Exam Respiratory Exam: Decreased Breath Sounds - Cardiovascular Exam Cardiovascular Exam: Irregular Rhythm - GI/Abdominal Exam GI & Abdominal Exam: Normal Bowel Sounds - Extremities Exam Extremities Exam: Pedal Edema Assessment and Plan - Assessment and Plan (Free Text) Assessment: Etiology of respiratory failure most likely pneumonia Anticoagulation for atrial fibrillation if stable Caution diuresis with hypotension, history of Acute Renal Insufficiency last admission with diuresis
[2018-07-09] MEDS: Heparin 25,000units in D5W 25,000 UNITS/250 ML BAG IV SCH (15:32)
--- NOTE | 2018-07-09 18:37 | CP.PCM.PN ---
Subjective - Date & Time of Evaluation Date of Evaluation: 07/09/18 Time of Evaluation: 22:22 - Subjective Subjective: Above noted Objective - Vital Signs/Intake and Output Vital Signs (last 24 hours): Temp Pulse Resp BP Pulse Ox 99.7 F H 99 H 16 110/55 L 96 07/09/18 15:58 07/09/18 17:57 07/09/18 17:57 07/09/18 17:57 07/09/18 17:57 Intake and Output: 07/09/18 07/09/18 06:59 18:59 Intake Total 1985 2054 Output Total 250 230 Balance 1736 1825 - Medications Medications: Current Medications Acetaminophen (Tylenol 650mg/20.3ml Solution Ud) 650 mg NG Q6 PRN PRN Reason: Fever>100.4F Last Admin: 07/08/18 08:13 Dose: 650 mg Albuterol/Ipratropium (Duoneb 3 Mg/0.5 Mg (3 Ml) Ud) 3 ml INH RQ6 [facility] Last Admin: 07/09/18 14:23 Dose: 3 ml Aspirin (Ecotrin) 81 mg PO DAILY [facility] Last Admin: 07/09/18 08:37 Dose: 81 mg Atorvastatin Calcium (Lipitor) 20 mg PO HS [facility] Last Admin: 07/08/18 21:51 Dose: 20 mg Docusate Sodium (Colace) 100 mg PO BID [facility] Last Admin: 07/09/18 16:00 Dose: Not Given Folic Acid (Folic Acid) 1 mg NG DAILY [facility] Last Admin: 07/09/18 08:37 Dose: 1 mg Furosemide (Lasix) 40 mg IVP DAILY [facility] Vancomycin HCl 750 mg/ Sodium (Chloride) 250 mls @ 166.667 mls/hr IVPB Q12 [facility]; Protocol Last Admin: 07/09/18 08:41 Dose: 166.667 mls/hr Propofol (Diprivan) 1,000 mg in 100 mls @ 10.723 mls/hr IV .Q9H20M [facility]; Protocol Stop: 07/10/18 08:38 Last Admin: 07/09/18 17:37 Dose: 20 mcg/kg/min, 10.723 mls/hr Meropenem 1 gm/ Sodium (Chloride) 100 mls @ 100 mls/hr IVPB Q8 [facility]; Protocol Last Admin: 07/09/18 16:01 Dose: 100 mls/hr Heparin Sodium/Dextrose (Heparin 25,000 Units/250ml In D5w) 25,000 units in 250 mls @ 16 mls/hr IV .[id number] [facility]; Protocol Last Admin: 07/09/18 15:32 Dose: 16 mls/hr Lactic Acid (Lac-Hydrin 12% Lotion (225 G)) 1 applic TOP TID [facility] Last Admin: 07/09/18 16:00 Dose: 1 applic Lactulose (Enulose) 10 gm PO DAILY PRN PRN Reason: Constipation Magnesium Oxide (Mag-Ox) 400 mg PO DAILY [facility] Last Admin: 07/09/18 08:39 Dose: 400 mg Metoprolol Tartrate (Lopressor) 25 mg PO Q12 [facility] Last Admin: 07/09/18 08:38 Dose: 25 mg Morphine Sulfate (Morphine) 2 mg IVP Q4H PRN PRN Reason: Pain, severe (8-10) Nystatin (Nystop Topical Powder) 1 applic TOP TID [facility] Last Admin: 07/09/18 16:02 Dose: 1 applic Ondansetron HCl (Zofran Inj) 4 mg IVP Q6H PRN PRN Reason: Nausea/Vomiting Pantoprazole Sodium (Protonix Ec Tab) 40 mg PO DAILY [facility] Last Admin: 07/09/18 08:40 Dose: 40 mg Pyridostigmine [place] (Mestinon Tab) 30 mg PO TID [facility] Last Admin: 07/09/18 16:01 Dose: 30 mg Sennosides (Senokot Tab) 8.6 mg PO BID [facility] Last Admin: 07/09/18 16:02 Dose: Not Given Thiamine HCl (Vitamin B1 Tab) 100 mg NG DAILY [facility] Last Admin: 07/09/18 08:41 Dose: 100 mg - Labs Labs: 07/09/18 05:00 07/09/18 05:00 PT 12.6 Seconds (9.8-13.1) 07/08/18 00:19 INR 1.1 07/08/18 00:19 APTT 32.7 Seconds (25.6-37.1) 07/08/18 00:19 - Respiratory Exam Respiratory Exam: NORMAL BREATHING PATTERN - Cardiovascular Exam Cardiovascular Exam: REGULAR RHYTHM - GI/Abdominal Exam GI & Abdominal Exam: Normal Bowel Sounds Assessment and Plan - Assessment and Plan (Free Text) Assessment: Acute Respiratory Failure etiol? Temp 102 JULIÁN pneumonia Hx R Pleural efusion S/P thoracentesis CHF vs COPD Hx CHF Afib S/P TAVR LV fxn good Hx COPD COSA Smoker ICU Intubated Pulmonary Cardiology ID Cellulitis ABX HX Abdominal distention improved Colonic ileus ( recurrent ) + FOBT ?? Eloquis held etiol ?? 2 to L-S surgery pyridostigmine Hx LLE edema cellulitis ?? ecchymosis?? Endovascular consult ??? CT scan done no significant findings Hx ANTHONY/ CKD Lasix?? Nephrology Hx Hyperkalemia 2 to Bactrim?? Kaexylate given Hold NAMRATA Urine lytes Hx Hypokalemia Hyperkalemia HTN Prediabetes Hx Low back surgery (Severe Spinal Stenosis) Post operative illeus
--- NOTE | 2018-07-09 18:39 | PQF ---
PROVIDER RESPONSE TEXT: Elevated WBC with possible HAP REVIEWER QUERY TEXT: Conflicting Documentation Clarification A single mention of Sepsis is listed in the ID consult. Please document if the condition is: -- Confirmed and current -- Confirmed, treated and resolved -- Ruled out -- Other, please specify Pulse:94->99->115->114->115->92->97->98->110->92->99->96->98->102 Respiration:30->19 WBC: 9.8->15.6-> 20.4 left shift H and P: not in [place] as of now ID consult draft note includes: consulted for antibiotic management of pneumonia sepsis and respirat ory failure with severe cellulitis RLE The patient's Clinical Indicators include: -- Query created by: Jennifer Chanel on 07/09/2018 8:38 AM Electronically signed by: Torrey Branch MD 07/09/2018 6:36 PM
[2018-07-09] MEDS: Acetaminophen 650mg/20.3ml solution UD NG PRN (21:03)
[2018-07-10] MEDS: Meropenem 1 GM in Sodium Chloride 0.9% 100 ML IVPB SCH ×3 (00:42→16:37)
[2018-07-10] MEDS: Albuterol-Ipratrop 3 mg / 0.5 (3 ml) UD INH SCH ×4 (02:17→19:02)
[2018-07-10] MEDS: Propofol 10 mg/ml 1,000 MG/100 ML VIAL IV SCH ×3 (03:18→23:35)
[2018-07-10 04:52] LABS: ABG ALLEN TEST YES; ARTERIAL BLOOD GAS HCO3 31.9 mmol/L (21-28); ARTERIAL BLOOD GAS O2 SAT 100.4 % (95-98); ARTERIAL BLOOD GAS PCO2 56 mm/Hg (35-45); ARTERIAL BLOOD GAS PH 7.41 (7.35-7.45); ARTERIAL BLOOD GAS PO2 107 mm/Hg (80-100); ARTERIAL BLOOD GAS TCO2 37.2 mmol/L (22-28)
[2018-07-10 05:18] LABS: BASO # 0.1 K/uL (0.0-0.2); BASO % 0.5 % (0.0-2.0); EOS # 0.1 K/uL (0.0-0.7); EOS % 0.7 % (0.0-4.0); HEMOGLOBIN 8.9 g/dL (12.0-18.0); LYMPH # 1.2 K/uL (1.0-4.3); MEAN CORPUSCULAR HEMOGLOBIN 29.1 pg (27.0-31.0); MEAN CORPUSCULAR HGB CONC 31.3 g/dL (33.0-37.0); MEAN PLATELET VOLUME 8.8 fl (7.2-11.7); MONO # 1.8 K/uL (0.0-0.8); NEUT # 11.6 K/uL (1.8-7.0); NEUT % 78.8 % (50.0-75.0); RBC 3.05 Mil/uL (4.40-5.90); RED CELL DISTRIBUTION WIDTH 16.6 % (11.5-14.5); WHITE BLOOD COUNT 14.7 K/uL (4.8-10.8)
[2018-07-10 05:27] LABS: ALBUMIN 2.8 g/dL (3.5-5.0); ALT/SGPT 24 U/L (21-72); AST/SGOT 19 U/L (17-59); BLOOD UREA NITROGEN 38 mg/dl (9-20); GFR NON-AFRICAN AMERICAN > 60
[2018-07-10] MEDS: Pantoprazole 40 mg EC Tab PO SCH (09:25)
[2018-07-10] MEDS: Magnesium Oxide 400 mg Tab UD PO SCH (09:25)
--- NOTE | 2018-07-10 09:45 | CP.PCM.PN ---
Subjective - Date & Time of Evaluation Date of Evaluation: 07/10/18 Time of Evaluation: 09:43 - Subjective Subjective: Seen in ICU; intubated and mechanically ventilated, sedated. Today's chest x-ray essentially unchanged with JULIÁN infiltrate and retrocardiac increased density. Leukocytosis is slightly improved at 14.7 and Hgb is down to 8.9GM. Small volume of pinkish, jalloh secretions being suctioned. Culture still pending. On meropenem and vancomycin. Tmax 100.4 degrees, SpO2 >95% consistently. Positive spontaneous respirations, RR14/18, PAP 25, MAP 10, plateau 20cm. Breathing comfortably w/o recruitment. Neck is supple and trachea midline. No dullness on percussion of anterior chest wall. No palpable subcutaneous emphysema. Breath sounds are diminished bilaterally. Few rhonchi anteriorly. Harsh breath sounds posteriorly JULIÁN with coarse rhonchi, but no bronchial BS or wheezes. Posteriorly on the right BS are diminished with dependant rhonchi and scattered medium rales. Heart sounds are distant, 90 BPM, regular. Abdomen is obese and bowel sounds are well heard. Dependant edema has decreased significantly and the RLE erythema has almost co mpletely resolved. HCAP/JULIÁN infiltrate with hypoxemic/hypercapnic respiratory failure. Underlying COPD with exacerbation. Likely pleural effusion on the left. A fib and AVR, back on anticoagulation. Placed on SIMV/PS ventilation at 50%, 14 BPM, PS 15cm, 5 PEEP. Hopefully able to wean further as tolerated. Antibiotics will remain unchanged unless sputum culture dictates differently. CCT 40min. Objective - Vital Signs/Intake and Output Vital Signs (last 24 hours): Temp Pulse Resp BP Pulse Ox 99.5 F 84 14 108/55 L 98 07/10/18 08:00 07/10/18 08:00 07/10/18 08:00 07/10/18 09:26 07/10/18 08:00 Intake and Output: 07/09/18 07/10/18 23:59 11:59 Intake Total 2150 1320 Output Total 275 200 Balance 1875 1120 - Medications Medications: Current Medications Acetaminophen (Tylenol 650mg/20.3ml Solution Ud) 650 mg NG Q6 PRN PRN Reason: Fever>100.4F Last Admin: 07/09/18 21:03 Dose: 650 mg Albuterol/Ipratropium (Duoneb 3 Mg/0.5 Mg (3 Ml) Ud) 3 ml INH RQ6 [facility] Last Admin: 07/10/18 08:35 Dose: 3 ml Aspirin (Ecotrin) 81 mg PO DAILY [facility] Last Admin: 07/09/18 08:37 Dose: 81 mg Atorvastatin Calcium (Lipitor) 20 mg PO HS [facility] Last Admin: 07/09/18 21:23 Dose: 20 mg Docusate Sodium (Colace) 100 mg PO BID [facility] Last Admin: 07/10/18 09:17 Dose: Not Given Folic Acid (Folic Acid) 1 mg NG DAILY [facility] Last Admin: 07/10/18 09:25 Dose: 1 mg Furosemide (Lasix) 40 mg IVP DAILY [facility] Last Admin: 07/10/18 09:26 Dose: 40 mg Vancomycin HCl 750 mg/ Sodium (Chloride) 250 mls @ 166.667 mls/hr IVPB Q12 [facility]; Protocol Last Admin: 07/09/18 21:03 Dose: 166.667 mls/hr Meropenem 1 gm/ Sodium (Chloride) 100 mls @ 100 mls/hr IVPB Q8 [facility]; Protocol Last Admin: 07/10/18 09:27 Dose: 100 mls/hr Heparin Sodium/Dextrose (Heparin 25,000 Units/250ml In D5w) 25,000 units in 250 mls @ 16 mls/hr IV .[id number] [facility]; Protocol Last Titration: 07/09/18 23:20 Dose: 13 mls/hr Lactic Acid (Lac-Hydrin 12% Lotion (225 G)) 1 applic TOP TID [facility] Last Admin: 07/10/18 09:26 Dose: 1 applic Lactulose (Enulose) 10 gm PO DAILY PRN PRN Reason: Constipation Magnesium Oxide (Mag-Ox) 400 mg PO DAILY [facility] Last Admin: 07/10/18 09:25 Dose: 400 mg Metoprolol Tartrate (Lopressor) 25 mg PO Q12 [facility] Last Admin: 07/09/18 08:38 Dose: 25 mg Morphine Sulfate (Morphine) 2 mg IVP Q4H PRN PRN Reason: Pain, severe (8-10) Nystatin (Nystop Topical Powder) 1 applic TOP TID [facility] Last Admin: 07/10/18 09:26 Dose: 1 applic Ondansetron HCl (Zofran Inj) 4 mg IVP Q6H PRN PRN Reason: Nausea/Vomiting Pantoprazole Sodium (Protonix Ec Tab) 40 mg PO DAILY [facility] Last Admin: 07/10/18 09:25 Dose: 40 mg Pyridostigmine [place] (Mestinon Tab) 30 mg PO TID [facility] Last Admin: 07/09/18 16:01 Dose: 30 mg Sennosides (Senokot Tab) 8.6 mg PO BID [facility] Last Admin: 07/10/18 09:25 Dose: 8.6 mg Thiamine HCl (Vitamin B1 Tab) 100 mg NG DAILY [facility] Last Admin: 07/10/18 09:26 Dose: 100 mg - Labs Labs: 07/10/18 04:10 07/10/18 04:10 PT 12.6 Seconds (9.8-13.1) 07/08/18 00:19 INR 1.1 07/08/18 00:19 APTT 68.5 Seconds (25.6-37.1) H 07/10/18 04:45 Assessment and Plan (1) Respiratory failure with hypoxia and hypercapnia Status: Acute (2) Endotracheally intubated Status: Acute (3) Pleural effusion, left Status: Suspected (4) Dependent edema Status: Chronic (5) Cellulitis Status: Resolved (6) COPD (chronic obstructive pulmonary disease) Status: Chronic (7) Pneumonia Status: Acute
[2018-07-10] MEDS: Heparin 25,000units in D5W 25,000 UNITS/250 ML BAG IV SCH (10:53)
--- NOTE | 2018-07-10 11:39 | RAD ---
Date of service: 07/10/2018 HISTORY: pneumonia COMPARISON: Chest radiograph dated 07/09/2018. TECHNIQUE: 1 view obtained. FINDINGS: LUNGS: Patchy left upper lobe density unchanged. PLEURA: Small left effusion unchanged. No pneumothorax. CARDIOVASCULAR: Aortic atherosclerotic calcifications. Prior TAVR. Cardiomediastinal silhouette stably enlarged. OSSEOUS STRUCTURES: Unchanged. VISUALIZED UPPER ABDOMEN: Normal. OTHER FINDINGS: Endotracheal and enteric tubes, unchanged IMPRESSION: Stable tubes and lines. No significant change in patchy left upper lobe density or small left pleural effusion.
--- NOTE | 2018-07-10 13:29 | CP.PCM.CON ---
History of Present Illness - History of Present Illness History of Present Illness: CONSULT FOR ANTHONY HPI: 88 M with hx of HTN COPD s/p TAVR w/ multiple admissions over last couple months readmitted w/ respiratory failure and admitted to ICU - intubated and sedated. Consult for ANTHONY b/l 0.8 cj to 1.2 today down to 1.1. UOP is adequate. On abx for PNA. ROS a full detailed ROS is limited as pt is untbated and sedated pmH: as below famhx: no esrd sochx: as below intubated and sedated unable to get meds and all as below pe: vs as below gen :nad sclera: anicteric op: et tube neck: supple cv: +S1+s2 no rub lungss: coarse and reduced b/l abd: soft nt nd ext: trace edema neuro: intubated and sedated psych :intubated and sedated skin: scattered ecchymoses labs and imaging reviewed imp: ARF/ Respiratory failure/ ANemia/ Pnemonia/hypermagnesemia plan: mild anthony and improving will continue to monitor monitor vanc levels will hold mag as levels mildly elevated bp relatively stable avoid luis miguel/arb for now f/u pulm/icu Past Patient History - Infectious Disease Hx of Infectious Diseases: None - Past Medical History & Family History Past Medical History?: Yes - Past Social History Smoking Status: Former Smoker Chewing Tobacco Use: No Cigar Use: No Alcohol: > 2 Drinks/Day Drugs: Denies Home Situation {Lives}: With Family - CARDIAC Hx Atrial Fibrillation: Yes Hx Congestive Heart Failure: Yes Hx Hypercholesterolemia: Yes Hx Hypertension: Yes Hx Peripheral Edema: Yes - PULMONARY Hx Bronchitis: Yes Hx Chronic Obstructive Pulmonary Disease (COPD): Yes Other/Comment: pleural effusion. - NEUROLOGICAL Hx Neurological Disorder: No - HEENT Hx HEENT Problems: No - RENAL Hx Chronic Kidney Disease: No - ENDOCRINE/METABOLIC Hx Endocrine Disorders: No - HEMATOLOGICAL/ONCOLOGICAL Hx Human Immunodeficiency Virus (HIV): No - INTEGUMENTARY Other/Comment: skin lesion recently removed from left infra-ocular area - MUSCULOSKELETAL/RHEUMATOLOGICAL Hx Arthritis: Yes Hx Back Pain: Yes Hx Herniated Disk: Yes - GASTROINTESTINAL Hx Diarrhea: Yes Other/Comment: ileus - GENITOURINARY/GYNECOLOGICAL Hx Genitourinary Disorders: No - PSYCHIATRIC Hx Psychophysiologic Disorder: No - SURGICAL HISTORY Hx Valve Replacement: Yes (TAVR) Other/Comment: Laminectomy L3-L5 05/15/2017 - ANESTHESIA Hx Anesthesia: Yes Hx Anesthesia Reactions: No Hx Malignant Hyperthermia: No Meds Allergies/Adverse Reactions: Allergies Allergy/AdvReac Type Severity Reaction Status Date / Time No Known Allergies Allergy Verified 07/07/18 23:59 - Medications Medications: Current Medications Acetaminophen (Tylenol 650mg/20.3ml Solution Ud) 650 mg NG Q6 PRN PRN Reason: Fever>100.4F Last Admin: 07/09/18 21:03 Dose: 650 mg Albuterol/Ipratropium (Duoneb 3 Mg/0.5 Mg (3 Ml) Ud) 3 ml INH RQ6 [facility] Last Admin: 07/10/18 08:35 Dose: 3 ml Aspirin (Ecotrin) 81 mg PO DAILY [facility] Last Admin: 07/10/18 09:45 Dose: 81 mg Atorvastatin Calcium (Lipitor) 20 mg PO HS [facility] Last Admin: 07/09/18 21:23 Dose: 20 mg Docusate Sodium (Colace) 100 mg PO BID [facility] Last Admin: 07/10/18 09:17 Dose: Not Given Folic Acid (Folic Acid) 1 mg NG DAILY [facility] Last Admin: 07/10/18 09:25 Dose: 1 mg Furosemide (Lasix) 40 mg IVP DAILY [facility] Last Admin: 07/10/18 09:26 Dose: 40 mg Vancomycin HCl 750 mg/ Sodium (Chloride) 250 mls @ 166.667 mls/hr IVPB Q12 [facility]; Protocol Last Admin: 07/10/18 13:12 Dose: 166.667 mls/hr Meropenem 1 gm/ Sodium (Chloride) 100 mls @ 100 mls/hr IVPB Q8 [facility]; Protocol Last Admin: 07/10/18 09:27 Dose: 100 mls/hr Heparin Sodium/Dextrose (Heparin 25,000 Units/250ml In D5w) 25,000 units in 250 mls @ 16 mls/hr IV .[id number] [facility]; Protocol Last Admin: 07/10/18 10:53 Dose: 13 mls/hr Lactic Acid (Lac-Hydrin 12% Lotion (225 G)) 1 applic TOP TID [facility] Last Admin: 07/10/18 12:59 Dose: 1 applic Lactulose (Enulose) 10 gm PO DAILY PRN PRN Reason: Constipation Magnesium Oxide (Mag-Ox) 400 mg PO DAILY [facility] Last Admin: 07/10/18 09:25 Dose: 400 mg Metoprolol Tartrate (Lopressor) 25 mg PO Q12 [facility] Last Admin: 07/09/18 08:38 Dose: 25 mg Morphine Sulfate (Morphine) 2 mg IVP Q4H PRN PRN Reason: Pain, severe (8-10) Nystatin (Nystop Topical Powder) 1 applic TOP TID [facility] Last Admin: 07/10/18 12:59 Dose: 1 applic Ondansetron HCl (Zofran Inj) 4 mg IVP Q6H PRN PRN Reason: Nausea/Vomiting Pantoprazole Sodium (Protonix Ec Tab) 40 mg PO DAILY [facility] Last Admin: 07/10/18 09:25 Dose: 40 mg Pyridostigmine [place] (Mestinon Tab) 30 mg PO TID [facility] Last Admin: 07/10/18 12:59 Dose: 30 mg Sennosides (Senokot Tab) 8.6 mg PO BID [facility] Last Admin: 07/10/18 09:25 Dose: 8.6 mg Thiamine HCl (Vitamin B1 Tab) 100 mg NG DAILY [facility] Last Admin: 07/10/18 09:26 Dose: 100 mg Results - Vital Signs Recent Vital Signs: Last Vital Signs Temp 100.2 F H 07/10/18 12:00 Pulse 95 H 07/10/18 13:00 Resp 14 07/10/18 13:00 BP 102/47 L 07/10/18 13:00 Pulse Ox 99 07/10/18 13:00 - Labs Result Diagrams: 07/10/18 04:10 07/10/18 04:10 Labs: Laboratory Results - last 24 hr 07/09/18 07/09/18 07/10/18 01:30 21:24 04:10 WBC 14.7 H RBC 3.05 L Hgb 8.9 L Hct 28.3 L MCV 93.0 D MCH 29.1 MCHC 31.3 L RDW 16.6 H Plt Count 149 MPV 8.8 Neut % (Auto) 78.8 H Lymph % (Auto) 8.0 L Evangeline % (Auto) 12.0 H Eos % (Auto) 0.7 Baso % (Auto) 0.5 Neut # (Auto) 11.6 H Lymph # (Auto) 1.2 Evangeline # (Auto) 1.8 H Eos # (Auto) 0.1 Baso # (Auto) 0.1 APTT 132.4 H pCO2 pO2 HCO3 ABG pH ABG Total CO2 ABG O2 Saturation ABG Base Excess Nam Test ABG Potassium A-a O2 Difference Glucose Lactate Vent Mode Mechanical Rate FiO2 Tidal Volume PEEP Sodium Potassium Chloride Carbon Dioxide Anion Gap BUN Creatinine Est GFR ( Amer) Est GFR (Non-Af Amer) Random Glucose Calcium Phosphorus Magnesium Total Bilirubin AST ALT Alkaline Phosphatase Total Protein Albumin Globulin Albumin/Globulin Ratio Arterial Blood Potassium Vancomycin Trough Influenza Typ A,B (EIA) Negative for flu a/b 07/10/18 07/10/18 07/10/18 04:10 04:39 04:45 WBC RBC Hgb Hct MCV MCH MCHC RDW Plt Count MPV Neut % (Auto) Lymph % (Auto) Evangeline % (Auto) Eos % (Auto) Baso % (Auto) Neut # (Auto) Lymph # (Auto) Evangeline # (Auto) Eos # (Auto) Baso # (Auto) APTT 68.5 H pCO2 56 H pO2 107 H HCO3 31.9 H ABG pH 7.41 ABG Total CO2 37.2 H ABG O2 Saturation 100.4 H ABG Base Excess 8.9 H Nam Test Yes ABG Potassium 3.9 A-a O2 Difference 215.0 Glucose 134 H Lactate 0.9 Vent Mode A/c Mechanical Rate 14 FiO2 55.0 Tidal Volume 450 PEEP 5 Sodium 135 134.0 Potassium 3.9 Chloride 98 102.0 Carbon Dioxide 34 H Anion Gap 7 L BUN 38 H Creatinine 1.1 Est GFR ( Amer) > 60 Est GFR (Non-Af Amer) > 60 Random Glucose 130 H Calcium 8.0 L Phosphorus 2.6 Magnesium 2.4 H Total Bilirubin 0.6 AST 19 ALT 24 Alkaline Phosphatase 68 Total Protein 5.6 L Albumin 2.8 L Globulin 2.8 Albumin/Globulin Ratio 1.0 Arterial Blood Potassium 3.9 Vancomycin Trough Influenza Typ A,B (EIA) 07/10/18 07/10/18 11:30 11:30 WBC RBC Hgb Hct MCV MCH MCHC RDW Plt Count MPV Neut % (Auto) Lymph % (Auto) Evangeline % (Auto) Eos % (Auto) Baso % (Auto) Neut # (Auto) Lymph # (Auto) Evangeline # (Auto) Eos # (Auto) Baso # (Auto) APTT 57.6 H pCO2 pO2 HCO3 ABG pH ABG Total CO2 ABG O2 Saturation ABG Base Excess Nam Test ABG Potassium A-a O2 Difference Glucose Lactate Vent Mode Mechanical Rate FiO2 Tidal Volume PEEP Sodium Potassium Chloride Carbon Dioxide Anion Gap BUN Creatinine Est GFR ( Amer) Est GFR (Non-Af Amer) Random Glucose Calcium Phosphorus Magnesium Total Bilirubin AST ALT Alkaline Phosphatase Total Protein Albumin Globulin Albumin/Globulin Ratio Arterial Blood Potassium Vancomycin Trough 13.7 H Influenza Typ A,B (EIA)
--- NOTE | 2018-07-10 13:42 | CP.CCUPN ---
CCU Subjective - Physician Review Subjective (Free Text): Sedated on Propofol 20 mcg dose, but easily arousable and follows commands, is interactive, not distressed, tolerating SIMV PS mode in attempt at starting MV weans. FiO2 reduced to 50% and tolerated well at 97% SPo2, breathing 20 with Ve 8.1, TV 400 approximately. Febrile now to 100.2F, SBP 100s HR 80-90s. Temps mostly 98; SBPs 90-100s, HR 60s. Approx 3.7 liter positive fluid balance. ROS: No other pertinent negs or positive on 10+ system review obtainable due to sedation Other PMSFH: All other Nursing and physician documentation reviewed to date; no new pertinent info noted relevant to current medical problems. EXAM- HEENT: very slight icterus, pupils equal, 3 mm and reactive, no gaze preference, no nystagmus NECK: no visible JVD, supple, carotids equal upstroke bilat/no bruits CHEST: decreased BS bases, no wheezes audible HEART: regular, distant, S1S2, no murmur audible, no rubs. ABD: soft, no distention, no focal tenderness, BS hypoactive EXT: + edema; with bilateral R worse than L cellulitic lower leg skin changes, no calf tenderness or palpable cords, distal pulses intact and symmetrical NEURO: No focal motor deficits, tone decreased. SKIN: no rashes LABS: WBC= 14.7 HGB= 8.9 PLTs = 149K PTT = 57.6 7.41/56/107 Na= 135 K= 3.9 Cl= 98 HCO3= 34 BUN/Cr= 38/1.1 BS= 130 Vanco Tr= 13.7 CXR: (my interp)- JULIÁN, LLL, Left effusion unchanged, RML / R heart border interstitial changes persist. IMPRESSION / MAJOR PROBLEMS NOW: 1. s/p Acute hypoxemic hypercapneic Resp Failure on MV, 2 multi-lobar pneumonia, parapneumonic effusion on L. 2. Metabolic Encephalopathy 2 Hypercarbia 3. Azotemia/ Dehydration 4. Chronic A Fib on AC, with HFpEF 5. Chronic ETOH Abuse 6. h/o TAVR PLAN: 1. Minute ventilation requirements improved, fiO2 requirements have improved, MV weaning started. 2. Wean sedatives. 3. Empiric abx coverage, no new organisms isolated yet, on Josafat / Vanco. 4. AC stated with Heparin drip, follow Hgb levels, had +FOBT last hospital admission. 5. Discussed with Cardio: will keep fluid balance even to slightly negative, additional Lasix PRN. More azotemic today despite positive fluid balance. Check Spot urine lytes. 6. Significant daily ETOH use as reported by family, watch for ETOH withdrawal symptoms. On thiamine / folate. Time spent with this patient did not overlap with any other provider's medical or critical care time. Additionally the code selected for the services rendered in this note includes the time spent: talking to the patients family, associated physicians and reviewing hospital data/results not listed here which extended to a total of 40 minutes of critical care.
[2018-07-11] MEDS: Meropenem 1 GM in Sodium Chloride 0.9% 100 ML IVPB SCH ×3 (00:17→17:33)
[2018-07-11] MEDS: Albuterol-Ipratrop 3 mg / 0.5 (3 ml) UD INH SCH ×4 (02:20→20:02)
[2018-07-11 05:09] LABS: HEMOGLOBIN 8.8 g/dL (12.0-18.0); MEAN CELL VOLUME 92.6 fl (80.0-94.0); MEAN CORPUSCULAR HGB CONC 31.3 g/dL (33.0-37.0); RBC 3.02 Mil/uL (4.40-5.90); RED CELL DISTRIBUTION WIDTH 16.5 % (11.5-14.5); WHITE BLOOD COUNT 12.6 K/uL (4.8-10.8)
[2018-07-11 05:15] LABS: ABG ALLEN TEST YES; ARTERIAL BLOOD GAS HCO3 33.1 mmol/L (21-28); ARTERIAL BLOOD GAS HEMOGLOBIN 9.3 g/dL (11.7-17.4); ARTERIAL BLOOD GAS O2 CAPACITY 12.7 mL/dL (16-24); ARTERIAL BLOOD GAS O2 CONTENT 12.7 ML/dL (15-23); ARTERIAL BLOOD GAS O2 SAT 99.8 % (95-98); ARTERIAL BLOOD GAS PCO2 50 mm/Hg (35-45); ARTERIAL BLOOD GAS PH 7.46 (7.35-7.45); ARTERIAL BLOOD GAS PO2 81 mm/Hg (80-100); ARTERIAL BLOOD GAS TCO2 37.1 mmol/L (22-28)
[2018-07-11 05:24] LABS: BLOOD UREA NITROGEN 40 mg/dl (9-20); CALCIUM 7.8 mg/dL (8.4-10.2); GFR NON-AFRICAN AMERICAN > 60
[2018-07-11] MEDS: Pantoprazole 40 mg EC Tab PO SCH (08:10)
--- NOTE | 2018-07-11 09:25 | CP.CCUPN ---
CCU Subjective - Physician Review Subjective (Free Text): Sedated on Propofol, but easily arousable and follows commands, is interactive, not distressed, tolerating SIMV PS mode: SBTs attempted with CPAP PS and did not tolerate lower PS levels down to 10 before becoming tachypneic up to 30 after 10 minutes. FiO2 reduced yesterday to 50% and tolerated well at 97% SPO2. Temps mostly 98-99F; SBPs 110s, HR 70s. Approx 3.3 liter positive fluid balance. ROS: No other pertinent negs or positive on 10+ system review obtainable due to sedation Other PMSFH: All other Nursing and physician documentation reviewed to date; no new pertinent info noted relevant to current medical problems. EXAM- HEENT: very slight icterus, pupils equal, 3 mm and reactive, no gaze preference, no nystagmus NECK: no visible JVD, supple, carotids equal upstroke bilat/no bruits CHEST: decreased BS bases, no wheezes audible HEART: regular, distant, S1S2, no murmur audible, no rubs. ABD: soft, no distention, no focal tenderness, BS hypoactive EXT: + edema; with bilateral R > L cellulitic lower leg skin changes, no calf tenderness or palpable cords, distal pulses intact and symmetrical NEURO: No focal motor deficits, tone decreased. SKIN: no rashes LABS: WBC= 12.6 HGB= 8.8 PLTs = 151K PTT = 133.3 7.46/50/81 Na= 135 K= 4.1 Cl= 97 HCO3= 32 BUN/Cr= 40/1.1 BS= 125 Vanco Tr= 13.7 yesterday CXR: (my interp)- JULIÁN, LLL, Left effusion unchanged, RML / R heart border interstitial changes persist. IMPRESSION / MAJOR PROBLEMS NOW: 1. s/p Acute hypoxemic hypercapneic Resp Failure on MV, 2 multi-lobar pneumonia, parapneumonic effusion on L. 2. Metabolic Encephalopathy 2 Hypercarbia: improved 3. Azotemia/ Dehydration 4. Chronic A Fib on AC, with HFpEF 5. Chronic ETOH Abuse 6. h/o TAVR PLAN: 1. Minute ventilation requirements improved, fiO2 requirements have improved, MV weaning as tolerated. Wean anxiolytics. 2. Empiric abx coverage, no new organisms isolated yet, 07/08 cultures still pending, on Josafat / Vanco. 3. AC started with Heparin drip, follow Hgb levels, stable last 24H; had +FOBT last hospital admission. 4. Discussed with Cardio: will keep fluid balance even to slightly negative, additional Lasix PRN. More azotemic today despite positive fluid balance. Nephrology eval noted. 5. Significant daily ETOH use as reported by family, watch for ETOH withdrawal symptoms. On thiamine / folate. Time spent with this patient did not overlap with any other provider's medical or critical care time. Additionally the code selected for the services rendered in this note includes the time spent: talking to the patients family, associated physicians and reviewing hospital data/results not listed here which extended to a total of 35 minutes of critical care.
[2018-07-11] MEDS: Heparin 25,000units in D5W 25,000 UNITS/250 ML BAG IV SCH (09:51)
--- NOTE | 2018-07-11 12:06 | RAD ---
Date of service: 07/11/2018 HISTORY: reevaluate COMPARISON: Chest radiograph dated 07/10/2018. TECHNIQUE: 1 view obtained. FINDINGS: LUNGS: Patchy left upper lobe density, unchanged. PLEURA: Small bilateral effusions, unchanged. No pneumothorax. CARDIOVASCULAR: Aortic atherosclerotic calcifications. Prior T AVR. Cardiomediastinal silhouette stably enlarged. OSSEOUS STRUCTURES: Unchanged. VISUALIZED UPPER ABDOMEN: Normal. OTHER FINDINGS: Endotracheal and enteric tubes, unchanged. IMPRESSION: Stable tubes and lines. No significant change in patchy left lobe density or small bilateral pleural effusions.
--- NOTE | 2018-07-11 12:45 | CP.PCM.PN ---
Subjective - Date & Time of Evaluation Date of Evaluation: 07/11/18 Time of Evaluation: 08:00 - Subjective Subjective: events noted slow progress intubated at bedside cellultis resolving Objective - Vital Signs/Intake and Output Vital Signs (last 24 hours): Temp Pulse Resp BP Pulse Ox 99.7 F H 84 16 113/53 L 90 L 07/11/18 12:00 07/11/18 12:00 07/11/18 12:00 07/11/18 12:00 07/11/18 12:00 Intake and Output: 07/11/18 07/11/18 06:59 18:59 Intake Total 1770 1200 Output Total 500 Balance 1270 1200 - Medications Medications: Current Medications Acetaminophen (Tylenol 650mg/20.3ml Solution Ud) 650 mg NG Q6 PRN PRN Reason: Fever>100.4F Last Admin: 07/09/18 21:03 Dose: 650 mg Albuterol/Ipratropium (Duoneb 3 Mg/0.5 Mg (3 Ml) Ud) 3 ml INH RQ6 [facility] Last Admin: 07/11/18 07:45 Dose: 3 ml Aspirin (Ecotrin) 81 mg PO DAILY [facility] Last Admin: 07/11/18 08:10 Dose: 81 mg Atorvastatin Calcium (Lipitor) 20 mg PO HS [facility] Last Admin: 07/10/18 23:06 Dose: 20 mg Docusate Sodium (Colace) 100 mg PO BID [facility] Last Admin: 07/11/18 09:00 Dose: Not Given Folic Acid (Folic Acid) 1 mg NG DAILY [facility] Last Admin: 07/11/18 08:10 Dose: 1 mg Furosemide (Lasix) 40 mg IVP DAILY [facility] Last Admin: 07/11/18 09:57 Dose: 40 mg Vancomycin HCl 750 mg/ Sodium (Chloride) 250 mls @ 166.667 mls/hr IVPB Q12 [facility]; Protocol Last Admin: 07/11/18 08:11 Dose: 166.667 mls/hr Meropenem 1 gm/ Sodium (Chloride) 100 mls @ 100 mls/hr IVPB Q8 [facility]; Protocol Last Admin: 07/11/18 08:12 Dose: 100 mls/hr Propofol (Diprivan) 1,000 mg in 100 mls @ 10.614 mls/hr IV .Q9H26M [facility]; Protocol Stop: 07/11/18 23:13 Last Titration: 07/11/18 04:00 Dose: 10 mcg/kg/min, 5.307 mls/hr Heparin Sodium/Dextrose (Heparin 25,000 Units/250ml In D5w) 25,000 units in 250 mls @ 10 mls/hr IV .Q24H [facility]; Protocol Last Admin: 07/11/18 09:51 Dose: 10 mls/hr Lactic Acid (Lac-Hydrin 12% Lotion (225 G)) 1 applic TOP TID [facility] Last Admin: 07/11/18 12:31 Dose: 1 applic Lactulose (Enulose) 10 gm PO DAILY PRN PRN Reason: Constipation Metoprolol Tartrate (Lopressor) 25 mg PO Q12 [facility] Last Admin: 07/09/18 08:38 Dose: 25 mg Nystatin (Nystop Topical Powder) 1 applic TOP TID [facility] Last Admin: 07/11/18 12:31 Dose: 1 applic Ondansetron HCl (Zofran Inj) 4 mg IVP Q6H PRN PRN Reason: Nausea/Vomiting Pantoprazole Sodium (Protonix Ec Tab) 40 mg PO DAILY [facility] Last Admin: 07/11/18 08:10 Dose: 40 mg Pyridostigmine [place] (Mestinon Tab) 30 mg PO TID [facility] Last Admin: 07/11/18 12:32 Dose: 30 mg Sennosides (Senokot Tab) 8.6 mg PO BID [facility] Last Admin: 07/11/18 08:11 Dose: 8.6 mg Thiamine HCl (Vitamin B1 Tab) 100 mg NG DAILY [facility] Last Admin: 07/11/18 08:10 Dose: 100 mg - Labs Labs: 07/11/18 04:14 07/11/18 04:14 PT 12.6 Seconds (9.8-13.1) 07/08/18 00:19 INR 1.1 07/08/18 00:19 APTT 133.3 Seconds (25.6-37.1) H 07/11/18 04:14 - Constitutional Appears: Non-toxic, No Acute Distress, Chronically Ill - Head Exam Head Exam: NORMOCEPHALIC - Eye Exam Eye Exam: absent: Scleral icterus Pupil Exam: NORMAL ACCOMODATION - ENT Exam ENT Exam: Mucous Membranes Dry Additional comments: ETT + - Neck Exam Neck Exam: absent: Lymphadenopathy - Respiratory Exam Respiratory Exam: Decreased Breath Sounds, Rhonchi - Cardiovascular Exam Cardiovascular Exam: REGULAR RHYTHM, +S1, +S2 - GI/Abdominal Exam GI & Abdominal Exam: Distended, Soft. absent: Tenderness - Rectal Exam Rectal Exam: Deferred - Exam Exam: NORMAL INSPECTION - Extremities Exam Extremities Exam: absent: Pedal Edema - Back Exam Back Exam: absent: CVA tenderness (L), CVA tenderness (R) - Neurological Exam Neurological Exam: Alert, Awake, CN II-XII Intact, Oriented x3 Neuro motor strength exam: Left Upper Extremity: 3, Right Upper Extremity: 3, Left Lower Extremity: 3, Right Lower Extremity: 3 - Psychiatric Exam Psychiatric exam: Depressed - Skin Skin Exam: Dry Assessment and Plan (1) Cellulitis of right lower leg Status: Acute (2) Atrial fibrillation Status: Acute (3) CHF (congestive heart failure) Status: Acute (4) Endotracheally intubated Status: Acute (5) Respiratory distress Status: Acute (6) Respiratory failure with hypoxia and hypercapnia Status: Acute (7) Dependent edema Status: Chronic (8) Pleural effusion, left Status: Suspected (9) Pneumonia Status: Acute (10) COPD (chronic obstructive pulmonary disease) Status: Chronic (11) Sepsis Status: Acute - Assessment and Plan (Free Text) Assessment: cukltures all negative improving on Empiric Rx for HAP/ cellulitis cont same for 10-14 days
[2018-07-11] MEDS: Acetaminophen 650mg/20.3ml solution UD NG PRN (17:35)
--- NOTE | 2018-07-11 23:45 | CP.PCM.PN ---
Subjective - Date & Time of Evaluation Date of Evaluation: 07/11/18 Time of Evaluation: 22:22 - Subjective Subjective: WBC 12k Improving Objective - Vital Signs/Intake and Output Vital Signs (last 24 hours): Temp Pulse Resp BP Pulse Ox 99.9 F H 86 20 113/60 100 07/11/18 20:00 07/11/18 21:00 07/11/18 21:00 07/11/18 21:00 07/11/18 21:00 Intake and Output: 07/11/18 07/12/18 18:59 06:59 Intake Total 1880 370 Output Total 1600 100 Balance 280 270 - Medications Medications: Current Medications Acetaminophen (Tylenol 650mg/20.3ml Solution Ud) 650 mg NG Q6 PRN PRN Reason: Fever>100.4F Last Admin: 07/11/18 17:35 Dose: 650 mg Albuterol/Ipratropium (Duoneb 3 Mg/0.5 Mg (3 Ml) Ud) 3 ml INH RQ6 [facility] Last Admin: 07/11/18 20:02 Dose: 3 ml Aspirin (Ecotrin) 81 mg PO DAILY [facility] Last Admin: 07/11/18 08:10 Dose: 81 mg Atorvastatin Calcium (Lipitor) 20 mg PO HS [facility] Last Admin: 07/11/18 22:56 Dose: 20 mg Docusate Sodium (Colace) 100 mg PO BID [facility] Last Admin: 07/11/18 17:03 Dose: Not Given Folic Acid (Folic Acid) 1 mg NG DAILY [facility] Last Admin: 07/11/18 08:10 Dose: 1 mg Furosemide (Lasix) 40 mg IVP DAILY [facility] Last Admin: 07/11/18 09:57 Dose: 40 mg Vancomycin HCl 750 mg/ Sodium (Chloride) 250 mls @ 166.667 mls/hr IVPB Q12 [facility]; Protocol Last Admin: 07/11/18 21:00 Dose: 166.667 mls/hr Meropenem 1 gm/ Sodium (Chloride) 100 mls @ 100 mls/hr IVPB Q8 [facility]; Protocol Last Admin: 07/11/18 17:33 Dose: 100 mls/hr Heparin Sodium/Dextrose (Heparin 25,000 Units/250ml In D5w) 25,000 units in 250 mls @ 10 mls/hr IV .Q24H [facility]; Protocol Last Titration: 07/11/18 13:05 Dose: 12 mls/hr Lactic Acid (Lac-Hydrin 12% Lotion (225 G)) 1 applic TOP TID [facility] Last Admin: 07/11/18 17:32 Dose: 1 applic Lactulose (Enulose) 10 gm PO DAILY PRN PRN Reason: Constipation Metoprolol Tartrate (Lopressor) 25 mg PO Q12 [facility] Last Admin: 07/09/18 08:38 Dose: 25 mg Nystatin (Nystop Topical Powder) 1 applic TOP TID [facility] Last Admin: 07/11/18 17:33 Dose: 1 applic Ondansetron HCl (Zofran Inj) 4 mg IVP Q6H PRN PRN Reason: Nausea/Vomiting Pantoprazole Sodium (Protonix Ec Tab) 40 mg PO DAILY [facility] Last Admin: 07/11/18 08:10 Dose: 40 mg Pyridostigmine [place] (Mestinon Tab) 30 mg PO TID [facility] Last Admin: 07/11/18 17:32 Dose: 30 mg Sennosides (Senokot Tab) 8.6 mg PO BID [facility] Last Admin: 07/11/18 17:04 Dose: Not Given Thiamine HCl (Vitamin B1 Tab) 100 mg NG DAILY [facility] Last Admin: 07/11/18 08:10 Dose: 100 mg - Labs Labs: 07/11/18 04:14 07/11/18 04:14 PT 12.6 Seconds (9.8-13.1) 07/08/18 00:19 INR 1.1 07/08/18 00:19 APTT 51.7 Seconds (25.6-37.1) H 07/11/18 18:16 - Respiratory Exam Respiratory Exam: NORMAL BREATHING PATTERN - Cardiovascular Exam Cardiovascular Exam: REGULAR RHYTHM - GI/Abdominal Exam GI & Abdominal Exam: Normal Bowel Sounds Assessment and Plan - Assessment and Plan (Free Text) Assessment: Acute Respiratory Failure Multi lobar pneumonia L pleural effusion Hx R Pleural efusion S/P thoracentesis Hx COPD COSA Smoker ICU Intubated improving Pulmonary ID Hx CHF Afib S/P TAVR LV fxn good Cardiology anticoagulation Cellulitis RLE ABX Hx ANTHONY/ CKD Lasix Nephrology Chronic ETOH ?? HX Abdominal distention improved Colonic ileus ( recurrent ) + FOBT ?? [place] held etiol ?? 2 to L-S surgery pyridostigmine Hx LLE edema cellulitis ?? ecchymosis?? Endovascular consult ??? CT scan done no significant findings Hx Hyperkalemia 2 to Bactrim?? Hold NAMRATA Hx Hypokalemia Hyperkalemia HTN Prediabetes Hx Low back surgery (Severe Spinal Stenosis) Post operative illeus
[2018-07-12] MEDS: Meropenem 1 GM in Sodium Chloride 0.9% 100 ML IVPB SCH ×3 (00:14→18:41)
[2018-07-12] MEDS: Albuterol-Ipratrop 3 mg / 0.5 (3 ml) UD INH SCH ×4 (01:05→19:33)
[2018-07-12] MEDS: Propofol 10 mg/ml 1,000 MG/100 ML VIAL IV SCH ×2 (01:27→18:46)
[2018-07-12 05:03] LABS: ABG ALLEN TEST YES; ARTERIAL BLOOD GAS HCO3 34.3 mmol/L (21-28); ARTERIAL BLOOD GAS O2 CAPACITY 12.5 mL/dL (16-24); ARTERIAL BLOOD GAS O2 CONTENT 12.5 ML/dL (15-23); ARTERIAL BLOOD GAS O2 SAT 100.4 % (95-98); ARTERIAL BLOOD GAS PCO2 54 mm/Hg (35-45); ARTERIAL BLOOD GAS PH 7.45 (7.35-7.45); ARTERIAL BLOOD GAS PO2 112 mm/Hg (80-100); ARTERIAL BLOOD GAS TCO2 39.2 mmol/L (22-28)
[2018-07-12 05:54] LABS: HEMOGLOBIN 9.1 g/dL (12.0-18.0); MEAN CELL VOLUME 91.7 fl (80.0-94.0); MEAN CORPUSCULAR HEMOGLOBIN 29.3 pg (27.0-31.0); RBC 3.1 Mil/uL (4.40-5.90); RED CELL DISTRIBUTION WIDTH 16.6 % (11.5-14.5); WHITE BLOOD COUNT 10.7 K/uL (4.8-10.8)
[2018-07-12 06:18] LABS: BLOOD UREA NITROGEN 36 mg/dl (9-20); CALCIUM 7.9 mg/dL (8.4-10.2); GFR NON-AFRICAN AMERICAN > 60
--- NOTE | 2018-07-12 08:44 | CP.PCM.PN ---
Subjective - Date & Time of Evaluation Date of Evaluation: 07/12/18 Time of Evaluation: 08:38 - Subjective Subjective: Seen on rounds in ICU. Remains intubated and mechanically ventilated. Chest x-ray today shows persistent JULIÁN infiltrate and suggests L pleural effusion. Leukocytosis has resolved, but he continues to have febrile spikes. AM ABG reviewed, interim events noted. Awake and alert, gesturing to remove ETT. SpO2 97% on current vent settings. Extremities are warm to touch, pink in color. Cellulitis of RLE has resolved. Neck is supple and trachea midline. No dullness on percussion of the chest anteriorly, no subcut emphysema. Breath sounds are very diminished bilaterally, especially so LLL posteriorly. No audible wheezes or bronchial breath sounds. Few medium rales posteriorly in both lungs. Breath sounds have a harsh character in the JULIÁN region. Scant secretions (jalloh) being suctioned from ETT. Abdomen seems soft and non-tender. Improving pneumonia JULIÁN (HCAP). Stable respiratory status on ventilator. Switched to CPAP 5, PS 15, O2 45%. Will repeat ABG in 30 minutes. Further progress dependant on the above. Continue current antibiotic regimen. CCT 30min. Objective - Vital Signs/Intake and Output Vital Signs (last 24 hours): Temp Pulse Resp BP Pulse Ox 99.5 F 82 14 110/59 L 96 07/12/18 02:00 07/12/18 07:00 07/12/18 07:00 07/12/18 07:00 07/12/18 07:00 Intake and Output: 07/11/18 07/12/18 23:59 11:59 Intake Total 2030 810 Output Total 1800 400 Balance 230 410 - Medications Medications: Current Medications Acetaminophen (Tylenol 650mg/20.3ml Solution Ud) 650 mg NG Q6 PRN PRN Reason: Fever>100.4F Last Admin: 07/11/18 17:35 Dose: 650 mg Albuterol/Ipratropium (Duoneb 3 Mg/0.5 Mg (3 Ml) Ud) 3 ml INH RQ6 [facility] Last Admin: 07/12/18 08:05 Dose: 3 ml Aspirin (Ecotrin) 81 mg PO DAILY [facility] Last Admin: 07/11/18 08:10 Dose: 81 mg Atorvastatin Calcium (Lipitor) 20 mg PO HS [facility] Last Admin: 07/11/18 22:56 Dose: 20 mg Docusate Sodium (Colace) 100 mg PO BID [facility] Last Admin: 07/11/18 17:03 Dose: Not Given Folic Acid (Folic Acid) 1 mg NG DAILY [facility] Last Admin: 07/11/18 08:10 Dose: 1 mg Furosemide (Lasix) 40 mg IVP DAILY [facility] Last Admin: 07/11/18 09:57 Dose: 40 mg Vancomycin HCl 750 mg/ Sodium (Chloride) 250 mls @ 166.667 mls/hr IVPB Q12 [facility]; Protocol Last Admin: 07/11/18 21:00 Dose: 166.667 mls/hr Meropenem 1 gm/ Sodium (Chloride) 100 mls @ 100 mls/hr IVPB Q8 [facility]; Protocol Last Admin: 07/12/18 00:14 Dose: 100 mls/hr Heparin Sodium/Dextrose (Heparin 25,000 Units/250ml In D5w) 25,000 units in 250 mls @ 10 mls/hr IV .Q24H [facility]; Protocol Last Titration: 07/11/18 13:05 Dose: 12 mls/hr Lactic Acid (Lac-Hydrin 12% Lotion (225 G)) 1 applic TOP TID [facility] Last Admin: 07/11/18 17:32 Dose: 1 applic Lactulose (Enulose) 10 gm PO DAILY PRN PRN Reason: Constipation Metoprolol Tartrate (Lopressor) 25 mg PO Q12 [facility] Last Admin: 07/09/18 08:38 Dose: 25 mg Nystatin (Nystop Topical Powder) 1 applic TOP TID [facility] Last Admin: 07/11/18 17:33 Dose: 1 applic Ondansetron HCl (Zofran Inj) 4 mg IVP Q6H PRN PRN Reason: Nausea/Vomiting Pantoprazole Sodium (Protonix Ec Tab) 40 mg PO DAILY [facility] Last Admin: 07/11/18 08:10 Dose: 40 mg Pyridostigmine [place] (Mestinon Tab) 30 mg PO TID [facility] Last Admin: 07/11/18 17:32 Dose: 30 mg Sennosides (Senokot Tab) 8.6 mg PO BID [facility] Last Admin: 07/11/18 17:04 Dose: Not Given Thiamine HCl (Vitamin B1 Tab) 100 mg NG DAILY [facility] Last Admin: 07/11/18 08:10 Dose: 100 mg - Labs Labs: 07/12/18 05:31 07/12/18 05:31 PT 12.6 Seconds (9.8-13.1) 07/08/18 00:19 INR 1.1 07/08/18 00:19 APTT 49.0 Seconds (25.6-37.1) H 07/12/18 01:05 Assessment and Plan (1) Respiratory failure with hypoxia and hypercapnia Status: Acute (2) Endotracheally intubated Status: Acute (3) Pleural effusion, left Status: Suspected (4) Dependent edema Status: Chronic (5) COPD (chronic obstructive pulmonary disease) Status: Chronic (6) Pneumonia Status: Acute
[2018-07-12 09:23] LABS: ABG ALLEN TEST YES; ARTERIAL BLOOD GAS HCO3 34.8 mmol/L (21-28); ARTERIAL BLOOD GAS HEMOGLOBIN 9.4 g/dL (11.7-17.4); ARTERIAL BLOOD GAS O2 CAPACITY 12.9 mL/dL (16-24); ARTERIAL BLOOD GAS O2 CONTENT 12.8 ML/dL (15-23); ARTERIAL BLOOD GAS PCO2 52 mm/Hg (35-45); ARTERIAL BLOOD GAS PH 7.47 (7.35-7.45); ARTERIAL BLOOD GAS PO2 80 mm/Hg (80-100); ARTERIAL BLOOD GAS TCO2 39.4 mmol/L (22-28)
--- NOTE | 2018-07-12 09:44 | CP.PCM.PN ---
Subjective - Date & Time of Evaluation Date of Evaluation: 07/12/18 Time of Evaluation: 09:43 - Subjective Subjective: RENAL seen and examined remains intubated pe: vs as below gen :nad sclera: anicteric op: et tube neck: supple cv: +S1+s2 no rub lungss: coarse and reduced b/l abd: soft nt nd ext: trace edema neuro: intubated following commands psych :intubated nml affect skin: scattered ecchymoses labs and imaging reviewed imp: ARF/ Respiratory failure/ Anemia/ Pnemonia/hypermagnesemia plan: renal function improved monitoring please monitor vanc levels mag on hold as levels mildly elevated f/u pulm/icu Objective - Vital Signs/Intake and Output Vital Signs (last 24 hours): Temp Pulse Resp BP Pulse Ox 99.7 F H 77 26 H 110/59 L 98 07/12/18 08:00 07/12/18 08:00 07/12/18 08:00 07/12/18 08:00 07/12/18 08:00 Intake and Output: 07/12/18 07/12/18 06:59 18:59 Intake Total 1750 50 Output Total 600 Balance 1150 50 - Medications Medications: Current Medications Acetaminophen (Tylenol 650mg/20.3ml Solution Ud) 650 mg NG Q6 PRN PRN Reason: Fever>100.4F Last Admin: 07/11/18 17:35 Dose: 650 mg Albuterol/Ipratropium (Duoneb 3 Mg/0.5 Mg (3 Ml) Ud) 3 ml INH RQ6 [facility] Last Admin: 07/12/18 08:05 Dose: 3 ml Aspirin (Ecotrin) 81 mg PO DAILY [facility] Last Admin: 07/11/18 08:10 Dose: 81 mg Atorvastatin Calcium (Lipitor) 20 mg PO HS [facility] Last Admin: 07/11/18 22:56 Dose: 20 mg Docusate Sodium (Colace) 100 mg PO BID [facility] Last Admin: 07/11/18 17:03 Dose: Not Given Folic Acid (Folic Acid) 1 mg NG DAILY [facility] Last Admin: 07/11/18 08:10 Dose: 1 mg Furosemide (Lasix) 40 mg IVP DAILY [facility] Last Admin: 07/11/18 09:57 Dose: 40 mg Vancomycin HCl 750 mg/ Sodium (Chloride) 250 mls @ 166.667 mls/hr IVPB Q12 [facility]; Protocol Last Admin: 07/11/18 21:00 Dose: 166.667 mls/hr Meropenem 1 gm/ Sodium (Chloride) 100 mls @ 100 mls/hr IVPB Q8 [facility]; Protocol Last Admin: 07/12/18 00:14 Dose: 100 mls/hr Lactic Acid (Lac-Hydrin 12% Lotion (225 G)) 1 applic TOP TID [facility] Last Admin: 07/11/18 17:32 Dose: 1 applic Lactulose (Enulose) 10 gm PO DAILY PRN PRN Reason: Constipation Metoprolol Tartrate (Lopressor) 25 mg PO Q12 [facility] Last Admin: 07/09/18 08:38 Dose: 25 mg Nystatin (Nystop Topical Powder) 1 applic TOP TID [facility] Last Admin: 07/11/18 17:33 Dose: 1 applic Ondansetron HCl (Zofran Inj) 4 mg IVP Q6H PRN PRN Reason: Nausea/Vomiting Pantoprazole Sodium (Protonix Ec Tab) 40 mg PO DAILY [facility] Last Admin: 07/11/18 08:10 Dose: 40 mg Pyridostigmine [place] (Mestinon Tab) 30 mg PO TID [facility] Last Admin: 07/11/18 17:32 Dose: 30 mg Sennosides (Senokot Tab) 8.6 mg PO BID [facility] Last Admin: 07/11/18 17:04 Dose: Not Given Thiamine HCl (Vitamin B1 Tab) 100 mg NG DAILY [facility] Last Admin: 07/11/18 08:10 Dose: 100 mg - Labs Labs: 07/12/18 05:31 07/12/18 05:31 PT 12.6 Seconds (9.8-13.1) 07/08/18 00:19 INR 1.1 07/08/18 00:19 APTT 49.0 Seconds (25.6-37.1) H 07/12/18 01:05
[2018-07-12] MEDS: Heparin 25,000units in D5W 25,000 UNITS/250 ML BAG IV SCH (10:00)
[2018-07-12] MEDS: Pantoprazole 40 mg EC Tab PO SCH (10:37)
--- NOTE | 2018-07-12 12:35 | CP.PCM.PN ---
Subjective - Date & Time of Evaluation Date of Evaluation: 07/12/18 Time of Evaluation: 07:00 - Subjective Subjective: awake alert responsive intubated in NAD Objective - Vital Signs/Intake and Output Vital Signs (last 24 hours): Temp Pulse Resp BP Pulse Ox 97.0 F L 96 H 15 121/63 100 07/12/18 08:00 07/12/18 10:00 07/12/18 10:00 07/12/18 10:42 07/12/18 10:00 Intake and Output: 07/12/18 07/12/18 06:59 18:59 Intake Total 1750 320 Output Total 600 Balance 1150 320 - Medications Medications: Current Medications Acetaminophen (Tylenol 650mg/20.3ml Solution Ud) 650 mg NG Q6 PRN PRN Reason: Fever>100.4F Last Admin: 07/11/18 17:35 Dose: 650 mg Albuterol/Ipratropium (Duoneb 3 Mg/0.5 Mg (3 Ml) Ud) 3 ml INH RQ6 [facility] Last Admin: 07/12/18 08:05 Dose: 3 ml Aspirin (Ecotrin) 81 mg PO DAILY [facility] Last Admin: 07/12/18 10:27 Dose: 81 mg Atorvastatin Calcium (Lipitor) 20 mg PO HS [facility] Last Admin: 07/11/18 22:56 Dose: 20 mg Docusate Sodium (Colace) 100 mg PO BID [facility] Last Admin: 07/12/18 10:27 Dose: Not Given Folic Acid (Folic Acid) 1 mg NG DAILY [facility] Last Admin: 07/12/18 10:28 Dose: 1 mg Furosemide (Lasix) 40 mg IVP DAILY [facility] Last Admin: 07/12/18 10:42 Dose: 40 mg Vancomycin HCl 750 mg/ Sodium (Chloride) 250 mls @ 166.667 mls/hr IVPB Q12 [facility]; Protocol Last Admin: 07/12/18 10:36 Dose: 166.667 mls/hr Meropenem 1 gm/ Sodium (Chloride) 100 mls @ 100 mls/hr IVPB Q8 [facility]; Protocol Last Admin: 07/12/18 10:32 Dose: 100 mls/hr Lactic Acid (Lac-Hydrin 12% Lotion (225 G)) 1 applic TOP TID [facility] Last Admin: 07/12/18 10:31 Dose: 1 applic Lactulose (Enulose) 10 gm PO DAILY PRN PRN Reason: Constipation Metoprolol Tartrate (Lopressor) 25 mg PO Q12 [facility] Last Admin: 07/09/18 08:38 Dose: 25 mg Nystatin (Nystop Topical Powder) 1 applic TOP TID [facility] Last Admin: 07/12/18 10:34 Dose: 1 applic Ondansetron HCl (Zofran Inj) 4 mg IVP Q6H PRN PRN Reason: Nausea/Vomiting Pantoprazole Sodium (Protonix Ec Tab) 40 mg PO DAILY [facility] Last Admin: 07/12/18 10:37 Dose: 40 mg Pyridostigmine [place] (Mestinon Tab) 30 mg PO TID [facility] Last Admin: 07/12/18 10:34 Dose: 30 mg Sennosides (Senokot Tab) 8.6 mg PO BID [facility] Last Admin: 07/12/18 10:35 Dose: 8.6 mg Thiamine HCl (Vitamin B1 Tab) 100 mg NG DAILY [facility] Last Admin: 07/12/18 10:36 Dose: 100 mg - Labs Labs: 07/12/18 05:31 07/12/18 05:31 PT 12.6 Seconds (9.8-13.1) 07/08/18 00:19 INR 1.1 07/08/18 00:19 APTT 49.0 Seconds (25.6-37.1) H 07/12/18 01:05 - Constitutional Appears: No Acute Distress, Chronically Ill - Head Exam Head Exam: ATRAUMATIC, NORMAL INSPECTION, NORMOCEPHALIC - Eye Exam Eye Exam: EOMI, Normal appearance, PERRL Pupil Exam: NORMAL ACCOMODATION, PERRL - ENT Exam ENT Exam: Mucous Membranes Moist, Normal Exam Additional comments: ETT + - Neck Exam Neck Exam: Full ROM, Normal Inspection. absent: Lymphadenopathy - Respiratory Exam Respiratory Exam: Decreased Breath Sounds, Prolonged Expiratory Phase, Rales - Cardiovascular Exam Cardiovascular Exam: REGULAR RHYTHM, +S1, +S2. absent: Murmur - GI/Abdominal Exam GI & Abdominal Exam: Soft, Normal Bowel Sounds. absent: Tenderness - Rectal Exam Rectal Exam: NORMAL INSPECTION - Exam Exam: Circumcision, NORMAL INSPECTION External exam: NORMAL EXTERNAL EXAM Speculum exam: NORMAL SPECULUM EXAM Bimanual exam: NORMAL BIMANUAL EXAM - Extremities Exam Extremities Exam: Full ROM, Normal Capillary Refill, Normal Inspection. absent: Joint Swelling, Pedal Edema - Back Exam Back Exam: NORMAL INSPECTION - Neurological Exam Neurological Exam: Alert, Awake, CN II-XII Intact, Normal Gait, Oriented x3 - Psychiatric Exam Psychiatric exam: Normal Affect, Normal Mood - Skin Skin Exam: Dry, Erythema, Intact Additional comments: cellulitis less Assessment and Plan (1) Cellulitis of right lower leg Status: Acute (2) Atrial fibrillation Status: Acute (3) CHF (congestive heart failure) Status: Acute (4) Endotracheally intubated Status: Acute (5) Respiratory distress Status: Acute (6) Respiratory failure with hypoxia and hypercapnia Status: Acute (7) Dependent edema Status: Chronic (8) Pleural effusion, left Status: Suspected (9) Pneumonia Status: Acute (10) COPD (chronic obstructive pulmonary disease) Status: Chronic (11) Sepsis Status: Acute - Assessment and Plan (Free Text) Assessment: improving pneumonia sepsis CHF resp failure and cellulitis cont IV rx wean as tolerated
--- NOTE | 2018-07-12 12:40 | PQF ---
PROVIDER RESPONSE TEXT: pneumonia REVIEWER QUERY TEXT: Clarification of Clinical Diagnostic Findings Please clarify if Sepsis is ruled in or ruled out? ID has listed an additional diagnosis of Sepsis -OR: Other explanation of clinical findings Pulse:94->99->115->114->115->92->97->98->110->92->99->96->98->102 Respiration:30->19 WBC: 9.8->15.6-> 20.4 left shift H and P: not in [place] as of now 07/08 ID consult includes: consulted for antibiotic management of pneumonia sepsis and respiratory fa ilure with severe cellulitis RLE: Had fever of 102 F this morning, BP low normal with HR in 80-90s. 07/09 ID note includes; ID consulted for antibiotic management of pneumonia sepsis and resp failure wi th severe cellulitis RLE WBC higher despite Vanco/ Cefepime IV antibiotics adjusted Merrem added Cefe pime d/c'd cultures pending 07/11 ID progress note includes: the diagnosis of Sepsis The patient's Clinical Indicators include: ---- Query created by: Jennifer Chanel on 07/12/2018 8:38 AM Electronically signed by: Torrey Branch MD 07/12/2018 12:37 PM
--- NOTE | 2018-07-12 13:09 | CP.PCM.PN ---
Subjective - Date & Time of Evaluation Date of Evaluation: 07/12/18 Time of Evaluation: 13:05 - Subjective Subjective: intubated sedated , arousable responsive Objective - Vital Signs/Intake and Output Vital Signs (last 24 hours): Temp Pulse Resp BP Pulse Ox 99.7 F H 81 15 137/59 L 98 07/12/18 12:00 07/12/18 12:00 07/12/18 12:00 07/12/18 12:00 07/12/18 12:00 Intake and Output: 07/12/18 07/12/18 06:59 18:59 Intake Total 1750 320 Output Total 600 Balance 1150 320 - Medications Medications: Current Medications Acetaminophen (Tylenol 650mg/20.3ml Solution Ud) 650 mg NG Q6 PRN PRN Reason: Fever>100.4F Last Admin: 07/11/18 17:35 Dose: 650 mg Albuterol/Ipratropium (Duoneb 3 Mg/0.5 Mg (3 Ml) Ud) 3 ml INH RQ6 [facility] Last Admin: 07/12/18 08:05 Dose: 3 ml Aspirin (Ecotrin) 81 mg PO DAILY [facility] Last Admin: 07/12/18 10:27 Dose: 81 mg Atorvastatin Calcium (Lipitor) 20 mg PO HS [facility] Last Admin: 07/11/18 22:56 Dose: 20 mg Docusate Sodium (Colace) 100 mg PO BID [facility] Last Admin: 07/12/18 10:27 Dose: Not Given Folic Acid (Folic Acid) 1 mg NG DAILY [facility] Last Admin: 07/12/18 10:28 Dose: 1 mg Furosemide (Lasix) 40 mg IVP DAILY [facility] Last Admin: 07/12/18 10:42 Dose: 40 mg Vancomycin HCl 750 mg/ Sodium (Chloride) 250 mls @ 166.667 mls/hr IVPB Q12 [facility]; Protocol Last Admin: 07/12/18 10:36 Dose: 166.667 mls/hr Meropenem 1 gm/ Sodium (Chloride) 100 mls @ 100 mls/hr IVPB Q8 [facility]; Protocol Last Admin: 07/12/18 10:32 Dose: 100 mls/hr Lactic Acid (Lac-Hydrin 12% Lotion (225 G)) 1 applic TOP TID [facility] Last Admin: 07/12/18 10:31 Dose: 1 applic Lactulose (Enulose) 10 gm PO DAILY PRN PRN Reason: Constipation Metoprolol Tartrate (Lopressor) 25 mg PO Q12 [facility] Last Admin: 07/09/18 08:38 Dose: 25 mg Nystatin (Nystop Topical Powder) 1 applic TOP TID [facility] Last Admin: 07/12/18 10:34 Dose: 1 applic Ondansetron HCl (Zofran Inj) 4 mg IVP Q6H PRN PRN Reason: Nausea/Vomiting Pantoprazole Sodium (Protonix Ec Tab) 40 mg PO DAILY [facility] Last Admin: 07/12/18 10:37 Dose: 40 mg Pyridostigmine [place] (Mestinon Tab) 30 mg PO TID [facility] Last Admin: 07/12/18 10:34 Dose: 30 mg Sennosides (Senokot Tab) 8.6 mg PO BID [facility] Last Admin: 07/12/18 10:35 Dose: 8.6 mg Thiamine HCl (Vitamin B1 Tab) 100 mg NG DAILY [facility] Last Admin: 07/12/18 10:36 Dose: 100 mg - Labs Labs: 07/12/18 05:31 07/12/18 05:31 PT 12.6 Seconds (9.8-13.1) 07/08/18 00:19 INR 1.1 07/08/18 00:19 APTT 49.0 Seconds (25.6-37.1) H 07/12/18 01:05 - Respiratory Exam Respiratory Exam: Decreased Breath Sounds - Cardiovascular Exam Cardiovascular Exam: Irregular Rhythm - GI/Abdominal Exam GI & Abdominal Exam: Normal Bowel Sounds - Extremities Exam Extremities Exam: Pedal Edema Assessment and Plan - Assessment and Plan (Free Text) Assessment: Hemodynamically stable Pneumonia /Parapneumonic effusion most likely etiology of respiratory failure Chronic Atrial Fibrillation S/p TAVR, Normal LVEF AV valve function by echo last admission I will be away until 07/25/18 will cover in my absence
[2018-07-12 15:14] LABS: ABG ALLEN TEST YES; ARTERIAL BLOOD GAS HCO3 34.8 mmol/L (21-28); ARTERIAL BLOOD GAS HEMOGLOBIN 10.2 g/dL (11.7-17.4); ARTERIAL BLOOD GAS O2 CAPACITY 13.9 mL/dL (16-24); ARTERIAL BLOOD GAS O2 CONTENT 13.6 ML/dL (15-23); ARTERIAL BLOOD GAS O2 SAT 97.7 % (95-98); ARTERIAL BLOOD GAS PCO2 64 mm/Hg (35-45); ARTERIAL BLOOD GAS PO2 71 mm/Hg (80-100); ARTERIAL BLOOD GAS TCO2 41.6 mmol/L (22-28)
[2018-07-12] MEDS ORDERED: Propofol 10 mg/ml 1,000 MG/100 ML VIAL IV SCH (19:00)
--- NOTE | 2018-07-12 20:58 | CP.PCM.PN ---
Subjective - Date & Time of Evaluation Date of Evaluation: 07/12/18 Time of Evaluation: 22:22 - Subjective Subjective: Above noted Objective - Vital Signs/Intake and Output Vital Signs (last 24 hours): Temp Pulse Resp BP Pulse Ox 99.7 F H 90 20 110/62 100 07/12/18 16:00 07/12/18 18:00 07/12/18 18:00 07/12/18 18:00 07/12/18 18:00 Intake and Output: 07/12/18 07/13/18 18:59 06:59 Intake Total 2100 Balance 2100 - Medications Medications: Current Medications Acetaminophen (Tylenol 650mg/20.3ml Solution Ud) 650 mg NG Q6 PRN PRN Reason: Fever>100.4F Last Admin: 07/11/18 17:35 Dose: 650 mg Albuterol/Ipratropium (Duoneb 3 Mg/0.5 Mg (3 Ml) Ud) 3 ml INH RQ6 [facility] Last Admin: 07/12/18 19:33 Dose: 3 ml Aspirin (Ecotrin) 81 mg PO DAILY [facility] Last Admin: 07/12/18 10:27 Dose: 81 mg Atorvastatin Calcium (Lipitor) 20 mg PO HS [facility] Last Admin: 07/11/18 22:56 Dose: 20 mg Docusate Sodium (Colace) 100 mg PO BID [facility] Last Admin: 07/12/18 18:39 Dose: Not Given Folic Acid (Folic Acid) 1 mg NG DAILY [facility] Last Admin: 07/12/18 10:28 Dose: 1 mg Furosemide (Lasix) 40 mg IVP DAILY [facility] Last Admin: 07/12/18 10:42 Dose: 40 mg Vancomycin HCl 750 mg/ Sodium (Chloride) 250 mls @ 166.667 mls/hr IVPB Q12 [facility]; Protocol Last Admin: 07/12/18 10:36 Dose: 166.667 mls/hr Meropenem 1 gm/ Sodium (Chloride) 100 mls @ 100 mls/hr IVPB Q8 [facility]; Protocol Last Admin: 07/12/18 18:41 Dose: 100 mls/hr Propofol (Diprivan) 1,000 mg in 100 mls @ 2.776 mls/hr IV .Q24H [facility]; Protocol Stop: 07/13/18 18:49 Last Admin: 07/12/18 19:53 Dose: 5 mcg/kg/min, 2.776 mls/hr Lactic Acid (Lac-Hydrin 12% Lotion (225 G)) 1 applic TOP TID [facility] Last Admin: 07/12/18 18:40 Dose: 1 applic Lactulose (Enulose) 10 gm PO DAILY PRN PRN Reason: Constipation Metoprolol Tartrate (Lopressor) 25 mg PO Q12 [facility] Last Admin: 07/09/18 08:38 Dose: 25 mg Nystatin (Nystop Topical Powder) 1 applic TOP TID [facility] Last Admin: 07/12/18 18:42 Dose: 1 applic Ondansetron HCl (Zofran Inj) 4 mg IVP Q6H PRN PRN Reason: Nausea/Vomiting Pantoprazole Sodium (Protonix Ec Tab) 40 mg PO DAILY [facility] Last Admin: 07/12/18 10:37 Dose: 40 mg Pyridostigmine [place] (Mestinon Tab) 30 mg PO TID [facility] Last Admin: 07/12/18 18:41 Dose: 30 mg Sennosides (Senokot Tab) 8.6 mg PO BID [facility] Last Admin: 07/12/18 18:43 Dose: 8.6 mg Thiamine HCl (Vitamin B1 Tab) 100 mg NG DAILY [facility] Last Admin: 07/12/18 10:36 Dose: 100 mg - Labs Labs: 07/12/18 05:31 07/12/18 05:31 PT 12.6 Seconds (9.8-13.1) 07/08/18 00:19 INR 1.1 07/08/18 00:19 APTT 49.0 Seconds (25.6-37.1) H 07/12/18 01:05 - Respiratory Exam Respiratory Exam: NORMAL BREATHING PATTERN - Cardiovascular Exam Cardiovascular Exam: REGULAR RHYTHM - GI/Abdominal Exam GI & Abdominal Exam: Normal Bowel Sounds Assessment and Plan - Assessment and Plan (Free Text) Assessment: Acute Respiratory Failure Multi lobar pneumonia L pleural effusion Hx R Pleural efusion S/P thoracentesis Hx COPD COSA Smoker ICU Intubated improving Pulmonary ID Hx CHF Afib S/P TAVR LV fxn good Cardiology anticoagulation Cellulitis RLE ABX Hx ANTHONY/ CKD Lasix Nephrology Chronic ETOH ?? HX Abdominal distention improved Colonic ileus ( recurrent ) + FOBT ?? [place] held etiol ?? 2 to L-S surgery pyridostigmine Hx LLE edema cellulitis ?? ecchymosis?? Endovascular consult ??? CT scan done no significant findings Hx Hyperkalemia 2 to Bactrim?? Hold NAMRATA Hx Hypokalemia Hyperkalemia HTN Prediabetes Hx Low back surgery (Severe Spinal Stenosis) Post operative illeus
[2018-07-12] MEDS: Acetaminophen 650mg/20.3ml solution UD NG PRN (21:01)
[2018-07-13] MEDS: Meropenem 1 GM in Sodium Chloride 0.9% 100 ML IVPB SCH ×3 (00:13→17:55)
[2018-07-13] MEDS: Albuterol-Ipratrop 3 mg / 0.5 (3 ml) UD INH SCH ×4 (01:00→19:24)
--- NOTE | 2018-07-13 01:20 | PN ---
DATE: 07/12/2018 CRITICAL CARE PROGRESS NOTE LOCATION: The patient is in ICU, bed 432. TIME SPENT: 45 minutes. The patient is seen, evaluated at the bedside. Past medical, surgical, family, social history reviewed. Case discussed in multidisciplinary ICU rounds this morning. SUBJECTIVE: An 88-year-old male with history significant for hypertension, coronary artery disease, aortic stenosis, status post TAVR, chronic AFib with multiple admissions for COPD exacerbation, respiratory failure, admitted with progressively worsening shortness of breath, noted right upper lobe pneumonia, bilateral pleural effusion, intubated, placed on mechanical ventilation, sedated on Diprivan drip. Diprivan being weaned off. NG feeding on hold, on pressure support 15/5 with FiO2 of 45%, observed rate 30, observed tidal volume 300, oxygen saturation 96%, end-tidal CO2 of 30. PHYSICAL EXAMINATION: GENERAL: This morning, alert and awake. Follows commands appropriate. HEAD, EYES, EARS, NOSE AND THROAT: Pupils are reactive. Conjunctivae pink. Sclerae are white. NECK: Supple. Trachea is central. CHEST: Bilateral breath sounds, scattered rhonchi. HEART: Rhythm irregular. No audible murmur. ABDOMEN: Bowel sounds present. Soft. EXTREMITIES: 1+ edema. Dorsalis pedis palpable. NEUROLOGIC: Alert, awake. Follows commands appropriate. Moves all four extremities. Able to lift head off the bed, wiggling both toes. CURRENT MEDICATIONS: Tylenol 650 mg every 6 hours p.r.n., DuoNeb 3 mL via nebulizer every 6 hours, aspirin 81 mg daily, Lipitor 20 mg p.o. daily, Colace 100 mg p.o. twice daily, folic acid 1 mg daily, Lasix 40 mg IV daily, lactic acid one application topically three times daily, lactulose 10 g p.o. daily, meropenem 1 g IV every 8 hours, Lopressor 25 mg p.o. every 12 hours, Nystatin topical powder one application topically three times daily, Zofran 4 mg IV every 6 hours p.r.n., Protonix extended-release 40 mg p.o. daily, Mestinon 30 mg p.o. three times daily, Senokot 8.6 mg twice daily, thiamine 100 mg NG daily, vancomycin 750 mg IV every 12 hours. LABORATORY DATA: WBC 10.7, hemoglobin 9.1, hematocrit 98.4, platelet count of 160, PTT 49. ABG; pH of 7.47, pCO2 of 52, pO2 of 80, saturation 99% on pressure support of 10, PEEP 5, FiO2 of 45, on CPAP. Stool occult blood negative. Vancomycin trough level 13.7. Serology, C. diff antigen negative, influenza A and B negative. Urine, Legionella negative. Microbiology, sputum culture normal maryanne. Stool culture, no Salmonella or Shigella. Nasal smear MRSA negative. Blood culture negative. Chest x-ray on 07/11/2018 shows patchy left upper lobe density unchanged, stable tubes and lines, no significant change in patchy left lobe density or small bilateral pleural effusion. IMPRESSION: 1. Neurologic: Alert, awake, follows commands appropriate. Off Diprivan drip. 2. Pulmonary: Acute hypercapnic hypoxic respiratory failure secondary to community-acquired pneumonia. The patient being weaned off from the ventilator as tolerated. Continue bronchodilator. 3. Infectious disease: Community-acquired pneumonia. Seen by Infectious Disease consult, on meropenem and vancomycin.follow vanco level. 4. Hematology: No leukocytosis. Hemoglobin and hematocrit stable, normal platelet count. 5. Gastrointestinal: Liver enzymes within normal limits. Albumin 2.8. Continue feeding as tolerated. 6. Endocrinology: Maintain blood sugar in 110-130 range. Keep head of bed at 30 degrees up. Continue anticoagulation. spontaneous breathing trial in progress. Reduce pressure support to 10 with PEEP of 5 and FiO2 40%. Followup ABG. Chente Hair MD MTDD
[2018-07-13 04:53] LABS: HEMOGLOBIN 8.8 g/dL (12.0-18.0); MEAN CELL VOLUME 91.4 fl (80.0-94.0); MEAN CORPUSCULAR HEMOGLOBIN 29.3 pg (27.0-31.0); RBC 3.01 Mil/uL (4.40-5.90); RED CELL DISTRIBUTION WIDTH 16.6 % (11.5-14.5); WHITE BLOOD COUNT 11.2 K/uL (4.8-10.8)
[2018-07-13 05:02] LABS: BLOOD UREA NITROGEN 31 mg/dl (9-20); CALCIUM 8.1 mg/dL (8.4-10.2); GFR NON-AFRICAN AMERICAN > 60
[2018-07-13 05:33] LABS: ABG ALLEN TEST YES; ARTERIAL BLOOD GAS HCO3 17.4 mmol/L (21-28); ARTERIAL BLOOD GAS O2 SAT 99.4 % (95-98); ARTERIAL BLOOD GAS PCO2 19 mm/Hg (35-45); ARTERIAL BLOOD GAS PH 7.42 (7.35-7.45); ARTERIAL BLOOD GAS PO2 142 mm/Hg (80-100); ARTERIAL BLOOD GAS TCO2 12.9 mmol/L (22-28)
--- NOTE | 2018-07-13 08:08 | RAD ---
Date of service: 07/13/2018 HISTORY: intubated COMPARISON: Portable chest 07/12/2018. TECHNIQUE: 1 view obtained. FINDINGS: LUNGS: Endotracheal and nasogastric tubes are not significantly changed in position. Patchy infiltrate or atelectasis at the left perihilar lung zone is diminished with left basilar opacity unchanged. PLEURA: Small left pleural effusions suspected. None is seen at the right. No pneumothorax bilaterally. CARDIOVASCULAR: Calcific atherosclerotic changes are seen related to the thoracic aorta. Stable cardiac silhouette. No pulmonary vascular congestion. Prior TAVR again evident. OSSEOUS STRUCTURES: No significant abnormalities. VISUALIZED UPPER ABDOMEN: Normal. OTHER FINDINGS: None. IMPRESSION: No interval change in left basilar atelectasis infiltrate and likely small left pleural effusion with low limited patchy density left perihilar region not significantly changed in the interval.
--- NOTE | 2018-07-13 09:08 | CP.PCM.PN ---
Subjective - Date & Time of Evaluation Date of Evaluation: 07/13/18 Time of Evaluation: 09:06 - Subjective Subjective: Seen on morning rounds in ICU. Remains orally intubated, placed back on controlled ventilation yesterday. This mornings ABG appears to be erroneous (?air bubble) and needs to be repeated. He has remained afebrile and normotensive, well oxygenated. Fluid retention is problematic with daily positive balance. He is awake and interactive, anxious for extubation. There is no recruitment or asynchrony, no paradoxical motion. ++ dependant edema, no cyanosis, LEs are much improved, warm to touch. Neck is supple and trachea midline. No dullness on percussion anteriorly, no subcut emphysema. Breath sounds are diminished bilaterally, more so posteriorly. Bronchial character of BS in LLL suggests atelectasis. Heart sounds are distant and rhythm regular in 80s. Abdomen is big, mildly distended but soft with + BS. PAP 30cm, plateau 24cm earlier this morning. Back on CPAP/PS presently and appears comfortable. Repeat ABG being done presently. Continue weaning as tolerated. Diurese, achieve fluid balance. Continue meropenem and vancomycin. FU AB.49, CO2 52, O2 57, 95% sat. Today's CXR to me shows some improvement in pneumonic infiltrate, but developing pleural effusions, L>R. CCT 30min Objective - Vital Signs/Intake and Output Vital Signs (last 24 hours): Temp Pulse Resp BP Pulse Ox 98.0 F 88 28 H 118/63 96 07/13/18 08:00 07/13/18 08:00 07/13/18 08:00 07/13/18 08:00 07/13/18 08:00 Intake and Output: 07/12/18 07/13/18 23:59 11:59 Intake Total 1514 1220 Output Total 600 Balance 1514 620 - Medications Medications: Current Medications Acetaminophen (Tylenol 650mg/20.3ml Solution Ud) 650 mg NG Q6 PRN PRN Reason: Fever>100.4F Last Admin: 07/12/18 21:01 Dose: 650 mg Albuterol/Ipratropium (Duoneb 3 Mg/0.5 Mg (3 Ml) Ud) 3 ml INH RQ6 [facility] Last Admin: 07/13/18 07:48 Dose: 3 ml Aspirin (Ecotrin) 81 mg PO DAILY [facility] Last Admin: 07/12/18 10:27 Dose: 81 mg Atorvastatin Calcium (Lipitor) 20 mg PO HS [facility] Last Admin: 07/12/18 21:01 Dose: 20 mg Docusate Sodium (Colace) 100 mg PO BID [facility] Last Admin: 07/12/18 18:39 Dose: Not Given Folic Acid (Folic Acid) 1 mg NG DAILY [facility] Last Admin: 07/12/18 10:28 Dose: 1 mg Furosemide (Lasix) 40 mg IVP DAILY [facility] Last Admin: 07/12/18 10:42 Dose: 40 mg Vancomycin HCl 750 mg/ Sodium (Chloride) 250 mls @ 166.667 mls/hr IVPB Q12 [facility]; Protocol Last Admin: 07/12/18 21:59 Dose: Not Given Meropenem 1 gm/ Sodium (Chloride) 100 mls @ 100 mls/hr IVPB Q8 [facility]; Protocol Last Admin: 07/13/18 00:13 Dose: 100 mls/hr Propofol (Diprivan) 1,000 mg in 100 mls @ 2.776 mls/hr IV .Q24H [facility]; Protocol Stop: 07/13/18 18:49 Last Titration: 07/13/18 05:00 Dose: 0 mcg/kg/min, 0 mls/hr Lactic Acid (Lac-Hydrin 12% Lotion (225 G)) 1 applic TOP TID [facility] Last Admin: 07/12/18 18:40 Dose: 1 applic Lactulose (Enulose) 10 gm PO DAILY PRN PRN Reason: Constipation Metoprolol Tartrate (Lopressor) 25 mg PO Q12 [facility] Last Admin: 07/09/18 08:38 Dose: 25 mg Nystatin (Nystop Topical Powder) 1 applic TOP TID [facility] Last Admin: 07/12/18 18:42 Dose: 1 applic Ondansetron HCl (Zofran Inj) 4 mg IVP Q6H PRN PRN Reason: Nausea/Vomiting Pantoprazole Sodium (Protonix Ec Tab) 40 mg PO DAILY [facility] Last Admin: 07/12/18 10:37 Dose: 40 mg Pyridostigmine [place] (Mestinon Tab) 30 mg PO TID [facility] Last Admin: 07/12/18 18:41 Dose: 30 mg Sennosides (Senokot Tab) 8.6 mg PO BID [facility] Last Admin: 07/12/18 18:43 Dose: 8.6 mg Thiamine HCl (Vitamin B1 Tab) 100 mg NG DAILY [facility] Last Admin: 07/12/18 10:36 Dose: 100 mg - Labs Labs: 07/13/18 04:11 07/13/18 04:11 PT 12.6 Seconds (9.8-13.1) 07/08/18 00:19 INR 1.1 07/08/18 00:19 APTT 59.2 Seconds (25.6-37.1) H 07/13/18 04:11 Assessment and Plan (1) Respiratory failure with hypoxia and hypercapnia Status: Acute (2) Endotracheally intubated Status: Acute (3) Pleural effusion, left Status: Suspected (4) Dependent edema Status: Chronic (5) COPD (chronic obstructive pulmonary disease) Status: Chronic (6) Pneumonia Status: Acute
[2018-07-13 09:21] LABS: ABG ALLEN TEST YES; ARTERIAL BLOOD GAS HCO3 36.2 mmol/L (21-28); ARTERIAL BLOOD GAS HEMOGLOBIN 9.4 g/dL (11.7-17.4); ARTERIAL BLOOD GAS O2 CAPACITY 12.8 mL/dL (16-24); ARTERIAL BLOOD GAS O2 CONTENT 12.2 ML/dL (15-23); ARTERIAL BLOOD GAS O2 SAT 95.1 % (95-98); ARTERIAL BLOOD GAS PCO2 52 mm/Hg (35-45); ARTERIAL BLOOD GAS PH 7.49 (7.35-7.45); ARTERIAL BLOOD GAS PO2 57 mm/Hg (80-100); ARTERIAL BLOOD GAS TCO2 41.2 mmol/L (22-28)
[2018-07-13] MEDS: Pantoprazole 40 mg EC Tab PO SCH (09:52)
[2018-07-13] MEDS: Heparin 25,000units in D5W 25,000 UNITS/250 ML BAG IV SCH (10:00)
[2018-07-13] MEDS ORDERED: Albuterol-Ipratrop 3 mg / 0.5 (3 ml) UD INH STA (10:17)
--- NOTE | 2018-07-13 10:39 | CP.PCM.PN ---
Subjective - Date & Time of Evaluation Date of Evaluation: 07/13/18 Time of Evaluation: 07:00 - Subjective Subjective: awake alert intubated denies chest pain weaning in progress cellulitis resolved Objective - Vital Signs/Intake and Output Vital Signs (last 24 hours): Temp Pulse Resp BP Pulse Ox 98.0 F 82 30 H 118/63 91 L 07/13/18 08:00 07/13/18 09:00 07/13/18 09:00 07/13/18 09:51 07/13/18 09:00 Intake and Output: 07/13/18 07/13/18 06:59 18:59 Intake Total 1280 384 Output Total 600 Balance 680 384 - Medications Medications: Current Medications Acetaminophen (Tylenol 650mg/20.3ml Solution Ud) 650 mg NG Q6 PRN PRN Reason: Fever>100.4F Last Admin: 07/12/18 21:01 Dose: 650 mg Albuterol/Ipratropium (Duoneb 3 Mg/0.5 Mg (3 Ml) Ud) 3 ml INH RQ6 [facility] Last Admin: 07/13/18 07:48 Dose: 3 ml Aspirin (Ecotrin) 81 mg PO DAILY [facility] Last Admin: 07/13/18 09:35 Dose: 81 mg Atorvastatin Calcium (Lipitor) 20 mg PO HS [facility] Last Admin: 07/12/18 21:01 Dose: 20 mg Docusate Sodium (Colace) 100 mg PO BID [facility] Last Admin: 07/13/18 09:35 Dose: Not Given Folic Acid (Folic Acid) 1 mg NG DAILY [facility] Last Admin: 07/13/18 09:36 Dose: 1 mg Furosemide (Lasix) 40 mg IVP DAILY [facility] Last Admin: 07/13/18 09:51 Dose: 40 mg Vancomycin HCl 750 mg/ Sodium (Chloride) 250 mls @ 166.667 mls/hr IVPB Q12 [facility]; Protocol Last Admin: 07/13/18 09:52 Dose: 166.667 mls/hr Meropenem 1 gm/ Sodium (Chloride) 100 mls @ 100 mls/hr IVPB Q8 [facility]; Protocol Last Admin: 07/13/18 09:48 Dose: 100 mls/hr Propofol (Diprivan) 1,000 mg in 100 mls @ 2.776 mls/hr IV .Q24H [facility]; Protocol Stop: 07/13/18 18:49 Last Titration: 07/13/18 05:00 Dose: 0 mcg/kg/min, 0 mls/hr Heparin Sodium/Dextrose (Heparin 25,000 Units/250ml In D5w) 25,000 units in 250 mls @ 12 mls/hr IV .[id number] [facility]; Protocol Last Admin: 07/13/18 10:00 Dose: 1,200 units/hr, 12 mls/hr Lactic Acid (Lac-Hydrin 12% Lotion (225 G)) 1 applic TOP TID [facility] Last Admin: 07/13/18 09:37 Dose: 1 applic Lactulose (Enulose) 10 gm PO DAILY PRN PRN Reason: Constipation Metoprolol Tartrate (Lopressor) 25 mg PO Q12 [facility] Last Admin: 07/09/18 08:38 Dose: 25 mg Nystatin (Nystop Topical Powder) 1 applic TOP TID [facility] Last Admin: 07/13/18 09:51 Dose: 1 applic Ondansetron HCl (Zofran Inj) 4 mg IVP Q6H PRN PRN Reason: Nausea/Vomiting Pantoprazole Sodium (Protonix Ec Tab) 40 mg PO DAILY [facility] Last Admin: 07/13/18 09:52 Dose: 40 mg Pyridostigmine [place] (Mestinon Tab) 30 mg PO TID [facility] Last Admin: 07/13/18 09:49 Dose: 30 mg Sennosides (Senokot Tab) 8.6 mg PO BID [facility] Last Admin: 07/13/18 09:52 Dose: 8.6 mg Thiamine HCl (Vitamin B1 Tab) 100 mg NG DAILY [facility] Last Admin: 07/13/18 09:53 Dose: 100 mg - Labs Labs: 07/13/18 04:11 07/13/18 04:11 PT 12.6 Seconds (9.8-13.1) 07/08/18 00:19 INR 1.1 07/08/18 00:19 APTT 59.2 Seconds (25.6-37.1) H 07/13/18 04:11 - Constitutional Appears: No Acute Distress, Chronically Ill - Head Exam Head Exam: ATRAUMATIC, NORMAL INSPECTION, NORMOCEPHALIC - Eye Exam Eye Exam: EOMI, Normal appearance, PERRL Pupil Exam: NORMAL ACCOMODATION, PERRL - ENT Exam ENT Exam: Mucous Membranes Moist, Normal Exam - Neck Exam Neck Exam: Full ROM, Normal Inspection. absent: Lymphadenopathy - Respiratory Exam Respiratory Exam: Decreased Breath Sounds, Prolonged Expiratory Phase - Cardiovascular Exam Cardiovascular Exam: REGULAR RHYTHM, +S1, +S2. absent: Murmur - GI/Abdominal Exam GI & Abdominal Exam: Soft, Normal Bowel Sounds. absent: Tenderness - Rectal Exam Rectal Exam: Deferred - Exam Exam: NORMAL INSPECTION - Extremities Exam Extremities Exam: Full ROM, Normal Capillary Refill, Normal Inspection. absent: Joint Swelling, Pedal Edema - Back Exam Back Exam: NORMAL INSPECTION - Neurological Exam Neurological Exam: Alert, Awake, CN II-XII Intact, Normal Gait, Oriented x3 - Psychiatric Exam Psychiatric exam: Normal Affect, Normal Mood - Skin Skin Exam: Dry, Intact, Normal Color, Warm Assessment and Plan (1) Cellulitis of right lower leg Status: Acute (2) Atrial fibrillation Status: Acute (3) CHF (congestive heart failure) Status: Acute (4) Endotracheally intubated Status: Acute (5) Respiratory distress Status: Acute (6) Respiratory failure with hypoxia and hypercapnia Status: Acute (7) Dependent edema Status: Chronic (8) Pleural effusion, left Status: Suspected (9) Pneumonia Status: Acute (10) COPD (chronic obstructive pulmonary disease) Status: Chronic (11) Sepsis Status: Acute - Assessment and Plan (Free Text) Assessment: improving slowly cont IV rx
[2018-07-13] MEDS ORDERED: Etomidate 20 mg/10ml Inj IV ONE ×2 (13:00→14:13)
[2018-07-13] MEDS ORDERED: Succinylcholine 200 mg/10 ml Inj IV ONE ×2 (13:00→14:15)
--- NOTE | 2018-07-13 14:31 | PCM.ANES ---
Anesthesia Emergent Intubation - Diagnosis Working Diagnosis:: Respiratory failure 2/2 COPD - Consult Reason for Consult:: Acute respiratory failure - Intubation Attempts Previous Number of Intubation Attempts:: 1 By:: Natan Benedict - Pre-Intubation Vital Signs Blood Pressure: 176/91 Heart Rate: 132 Respiratory Rate: 26 O2 Sat: 84 FIO2: 100 Oxygen Delivery Method: Mask Level Of Consciousness: Disoriented Intubation Meds Given: Etomidate, Succinylcholine - Airway Management Rapid Sequence: Yes Possible Aspiration: Yes (Copious secretions in oropharynx prior to induction) - Method of Intubation Intubation Method: Oral ETT ETT Size: 8.0 Lipline@: 21cm Easy: Yes Atramatic: Yes - Intubation Devices Nicole Blade Size Used: 4 - Placement Confirmation Breath Sounds Present & Equal Bilaterally: Yes Gurgling Sounds Not Audible at Epigastrum: No Positive EtCO2: Yes Portable CXR: Yes Recommendations: Ventilator - Post-Intubation Vital Signs Blood Pressure: 123/77 Heart Rate: 141 Respiratory Rate: 12 O2 Sat: 100 FIO2: 100
--- NOTE | 2018-07-13 15:08 | PCM.PROC ---
Procedures Attestation:: I certify that I have explained the specified Operation(s) or Procedure(s), risks, benefits and reasonable alternatives to the Patient and/or other person responsible. The opportunity was given to ask questions and all questions answered - Extubation Clinical Parameters: Resolution/Stabilization of disease process, Hemodynamically Stable, Intact Cough/Gag Reflex, Spontaneous Respirations, Acceptable Vent Settings (FIO2<50%, PEEP<8, PaO2>75, pH>7.25) Weaning Criteria Met: Yes General Weaning Approaches: Pressure Support Ventilation (PSV) Weaning, Spontaneous breathing trials and use of T-Piece Patient Condition: Patient has been successfully extubated and assessed Oxygen Therapy: High Flow Nasal Cannula Patient Tolerated Procedure: Well
[2018-07-13] MEDS: Propofol 10 mg/ml 1,000 MG/100 ML VIAL IV SCH (16:15)
--- NOTE | 2018-07-13 17:43 | RAD ---
Date of service: 07/13/2018 PROCEDURE: CHEST RADIOGRAPH, 1 VIEW HISTORY: post re-intubation COMPARISON: Multiple serial examinations preceding the most recent study: July 13, 2018. Study performed 04:12. FINDINGS: LUNGS: Multifocal infiltrates unchanged. PLEURA: Stable pleural effusions left larger than right. CARDIOVASCULAR: No aortic atherosclerotic calcification present. Normal. OSSEOUS STRUCTURES: No significant abnormalities. VISUALIZED UPPER ABDOMEN: Normal. OTHER FINDINGS: The endotracheal tube tip is within 1.5 cm of the brian, directed into the right mainstem bronchus. However satisfactory position ventilatory, nasogastric apparatus. IMPRESSION: Satisfactory position of support apparatus. Stable multifocal infiltrates. Stable bilateral pleural effusions left larger than right.
--- NOTE | 2018-07-13 20:58 | CP.PCM.PN ---
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 Objective - Vital Signs/Intake and Output Vital Signs (last 24 hours): Temp Pulse Resp BP Pulse Ox 98.4 F 86 14 111/74 100 07/13/18 16:00 07/13/18 18:00 07/13/18 18:00 07/13/18 18:00 07/13/18 18:00 Intake and Output: 07/13/18 07/14/18 18:59 06:59 Intake Total 1204 Output Total 1900 Balance -696 - Medications Medications: Current Medications Acetaminophen (Tylenol 650mg/20.3ml Solution Ud) 650 mg NG Q6 PRN PRN Reason: Fever>100.4F Last Admin: 07/12/18 21:01 Dose: 650 mg Albuterol/Ipratropium (Duoneb 3 Mg/0.5 Mg (3 Ml) Ud) 3 ml INH RQ6 [facility] Last Admin: 07/13/18 19:24 Dose: 3 ml Aspirin (Ecotrin) 81 mg PO DAILY [facility] Last Admin: 07/13/18 09:35 Dose: 81 mg Atorvastatin Calcium (Lipitor) 20 mg PO HS [facility] Last Admin: 07/12/18 21:01 Dose: 20 mg Docusate Sodium (Colace) 100 mg PO BID [facility] Last Admin: 07/13/18 17:52 Dose: Not Given Folic Acid (Folic Acid) 1 mg NG DAILY [facility] Last Admin: 07/13/18 09:36 Dose: 1 mg Furosemide (Lasix) 40 mg IVP DAILY [facility] Last Admin: 07/13/18 09:51 Dose: 40 mg Vancomycin HCl 750 mg/ Sodium (Chloride) 250 mls @ 166.667 mls/hr IVPB Q12 [facility]; Protocol Last Admin: 07/13/18 09:52 Dose: 166.667 mls/hr Meropenem 1 gm/ Sodium (Chloride) 100 mls @ 100 mls/hr IVPB Q8 [facility]; Protocol Last Admin: 07/13/18 17:55 Dose: 100 mls/hr Heparin Sodium/Dextrose (Heparin 25,000 Units/250ml In D5w) 25,000 units in 250 mls @ 12 mls/hr IV .[id number] [facility]; Protocol Last Admin: 07/13/18 10:00 Dose: 1,200 units/hr, 12 mls/hr Propofol (Diprivan) 1,000 mg in 100 mls @ 2.776 mls/hr IV .Q24H [facility]; Protocol Stop: 07/14/18 14:56 Last Titration: 07/13/18 17:00 Dose: 10 mcg/kg/min, 5.552 mls/hr Lactic Acid (Lac-Hydrin 12% Lotion (225 G)) 1 applic TOP TID [facility] Last Admin: 07/13/18 17:53 Dose: 1 applic Lactulose (Enulose) 10 gm PO DAILY PRN PRN Reason: Constipation Metoprolol Tartrate (Lopressor) 25 mg PO Q12 [facility] Last Admin: 07/09/18 08:38 Dose: 25 mg Nystatin (Nystop Topical Powder) 1 applic TOP TID [facility] Last Admin: 07/13/18 17:54 Dose: 1 applic Ondansetron HCl (Zofran Inj) 4 mg IVP Q6H PRN PRN Reason: Nausea/Vomiting Pantoprazole Sodium (Protonix Ec Tab) 40 mg PO DAILY [facility] Last Admin: 07/13/18 09:52 Dose: 40 mg Pyridostigmine [place] (Mestinon Tab) 30 mg PO TID [facility] Last Admin: 07/13/18 17:54 Dose: 30 mg Sennosides (Senokot Tab) 8.6 mg PO BID [facility] Last Admin: 07/13/18 17:59 Dose: Not Given Thiamine HCl (Vitamin B1 Tab) 100 mg NG DAILY [facility] Last Admin: 07/13/18 09:53 Dose: 100 mg - Labs Labs: 07/13/18 04:11 07/13/18 04:11 PT 12.6 Seconds (9.8-13.1) 07/08/18 00:19 INR 1.1 07/08/18 00:19 APTT 59.2 Seconds (25.6-37.1) H 07/13/18 04:11 - Respiratory Exam Respiratory Exam: NORMAL BREATHING PATTERN - Cardiovascular Exam Cardiovascular Exam: REGULAR RHYTHM - GI/Abdominal Exam GI & Abdominal Exam: Normal Bowel Sounds Assessment and Plan - Assessment and Plan (Free Text) Assessment: Acute Respiratory Failure Multi lobar pneumonia L pleural effusion Hx R Pleural efusion S/P thoracentesis Hx COPD COSA Smoker ICU reintubated Pulmonary ID Hx CHF Afib S/P TAVR LV fxn good Cardiology anticoagulation Cellulitis RLE ABX Hx ANTHONY/ CKD Lasix Nephrology Chronic ETOH ?? HX Abdominal distention improved Colonic ileus ( recurrent ) + FOBT ?? [place] held etiol ?? 2 to L-S surgery pyridostigmine Hx LLE edema cellulitis ?? ecchymosis?? Endovascular consult ??? CT scan done no significant findings Hx Hyperkalemia 2 to Bactrim?? Hold NAMRATA Hx Hypokalemia Hyperkalemia HTN Prediabetes Hx Low back surgery (Severe Spinal Stenosis) Post operative illeus
--- NOTE | 2018-07-14 00:16 | PN ---
DATE: 07/13/2018 CRITICAL CARE PROGRESS NOTE LOCATION: The patient in ICU, bed 432. Time spent 40 minutes. The patient is seen and evaluated at the bedside. Case was discussed in multidisciplinary ICU rounds this morning. Past medical, surgical, family, social history noted. SUBJECTIVE: An 88-year-old male with a history significant for hypertension, coronary artery disease, aortic stenosis, status post TAVR, chronic atrial fibrillation with multiple admissions for COPD exacerbation, respiratory failure. Admitted with progressively worsening shortness of breath. Noted right upper lobe pneumonia, bilateral pleural effusion. Overnight intubated, on mechanical ventilation, on AC 12, 500, FiO2 40%, PEEP of 5. This morning, alert and awake. Follows commands appropriate. Vent setting changed to CPAP 10, PEEP of 5, FiO2 of 40%. ABG shows moderate hypoxemia. Diprivan is being weaned off. NG tube feeding on hold. PHYSICAL EXAMINATION: VITAL SIGNS: Temperature 98, heart rate 82 and irregular, blood pressure 118/63, respiratory rate 28 to 30 thoracoabdominal, saturation 91% to 94%, on FiO2 of 40%. Intake 3380, output 600, positive balance 2780. Urine output 600 mL. Free water pressure 1250, tube feeding 1160, weight 204 pounds. HEAD, EYES, EARS, NOSE AND THROAT: Pupils are reactive. Conjunctivae pink. Sclerae white. NECK: Supple. Trachea central. CHEST: Bilateral breath sounds, diminished in intensity, prolonged expiration, scattered rhonchi. HEART: Rhythm irregular. No audible murmur. ABDOMEN: Bowel sounds are present. Soft. EXTREMITIES: 1+ edema. Cellulitis, lower extremities. Dorsalis pedis palpable. NEUROLOGIC: Alert, awake. Follows commands appropriate. Moves all four extremities. Able to lift the head of bed. CURRENT MEDICATIONS: Tylenol 650 mg every 6 hours p.r.n., DuoNeb 3 mL via nebulizer every 6 hours, aspirin 81 mg daily, Lipitor 20 mg p.o. daily, Colace 100 mg p.o. twice daily, folic acid 1 mg daily, Lasix 40 mg IV daily, lactic acid one application topically three times daily, lactulose 10 g p.o. daily, meropenem 1 g IV every 8 hours, Lopressor 25 mg every 12 hours, nystatin topical powder one application topically three times daily, Zofran 4 mg IV every 6 hours p.r.n., Protonix extended-release 40 mg p.o. daily, Mestinon 30 mg p.o. three times daily, Senokot 8.6 mg twice daily, thiamine 100 mg daily, vancomycin 750 mg every 12 hours. LABORATORY DATA: WBC 11.2, hemoglobin 8.8, hematocrit 27.5, platelet count 164. PTT 59.2. ABG, pH of 7.49, pCO2 of 52, pO2 of 57, saturation 95.1 on FiO2 of 40, CPAP 10, PEEP of 5. SMA-7: Sodium 130, potassium 3.6, chloride 97, CO2 of 38, blood urea nitrogen 31, creatinine 0.9, random glucose 131, calcium is 8.1. Urinalysis: Urine rbc's 16, urine wbc's 6. Stool occult blood negative. Vancomycin trough level 22.5. Influenza A and B negative. Microbiology: Sputum culture normal maryanne. Stool culture, no Salmonella, Shigella or Campylobacter, isolated. Nasal smear MRSA negative. Blood culture no growth. Chest x-ray from this morning, endotracheal tube in place, NG tube in place, patchy infiltrate or atelectasis at the left perihilar lung zone, left basilar opacity unchanged, small left pleural effusion. IMPRESSION AND PLAN: 1. Neurologic: Alert and awake. Follows commands appropriate. Off Diprivan drip. 2. Pulmonary: Ventilator-dependent respiratory failure with hypercapnic, hypoxemic secondary to chronic obstructive pulmonary disease, superimposed community-acquired pneumonia, bilateral pleural effusion, atelectasis left lower lobe, on bronchodilator. 3. Cardiac: History of chronic systolic heart failure, chronic atrial fibrillation, on rate control, on anticoagulation with heparin. Maintain partial thromboplastin time control. 4. Infectious Disease: Community-acquired pneumonia. Cellulitis, lower extremities. Appreciate the recommendation by Infectious disease consult, on meropenem and vancomycin. Vancomycin on hold due to high trough level. 5. Hematology: No leukocytosis. Hemoglobin and hematocrit remain stable. 6. Renal: Positive fluid balance. Mild prerenal azotemia. Normal phosphorus, magnesium and potassium. 7. Gastrointestinal: Liver enzymes within normal limits. Hypoalbuminemia. Continue feeding as tolerated. Feeding on hold for possible extubation. We will resume after the patient is extubated and clinically stable. 8. Endocrinology: Maintain blood sugar in the low 110 to 130 range. Keep head of bed 30 degrees up, on anticoagulation. Chente Hair MD
[2018-07-14] MEDS: Meropenem 1 GM in Sodium Chloride 0.9% 100 ML IVPB SCH ×3 (01:00→16:13)
[2018-07-14] MEDS: Albuterol-Ipratrop 3 mg / 0.5 (3 ml) UD INH SCH ×4 (01:05→19:06)
[2018-07-14] MEDS: Propofol 10 mg/ml 1,000 MG/100 ML VIAL IV SCH (04:56)
[2018-07-14 05:49] LABS: ABG ALLEN TEST YES; ARTERIAL BLOOD GAS HCO3 35.6 mmol/L (21-28); ARTERIAL BLOOD GAS O2 CAPACITY 15.2 mL/dL (16-24); ARTERIAL BLOOD GAS O2 CONTENT 15.2 ML/dL (15-23); ARTERIAL BLOOD GAS O2 SAT 99.7 % (95-98); ARTERIAL BLOOD GAS PCO2 59 mm/Hg (35-45); ARTERIAL BLOOD GAS PH 7.44 (7.35-7.45); ARTERIAL BLOOD GAS PO2 121 mm/Hg (80-100); ARTERIAL BLOOD GAS TCO2 41.9 mmol/L (22-28)
[2018-07-14 06:51] LABS: ALT/SGPT 32 U/L (21-72); AST/SGOT 36 U/L (17-59); BLOOD UREA NITROGEN 30 mg/dl (9-20); CALCIUM 8.1 mg/dL (8.4-10.2); GFR NON-AFRICAN AMERICAN > 60
[2018-07-14 06:54] LABS: HEMOGLOBIN 8.9 g/dL (12.0-18.0); MEAN CELL VOLUME 91.6 fl (80.0-94.0); MEAN CORPUSCULAR HEMOGLOBIN 28.9 pg (27.0-31.0); MEAN CORPUSCULAR HGB CONC 31.5 g/dL (33.0-37.0); RBC 3.07 Mil/uL (4.40-5.90); RED CELL DISTRIBUTION WIDTH 16.5 % (11.5-14.5); WHITE BLOOD COUNT 13.1 K/uL (4.8-10.8)
[2018-07-14] MEDS: Heparin 25,000units in D5W 25,000 UNITS/250 ML BAG IV SCH (07:38)
--- NOTE | 2018-07-14 07:51 | RAD ---
Date of service: 07/14/2018 PROCEDURE: CHEST RADIOGRAPH, 1 VIEW HISTORY: protocol COMPARISON: 07/13/2018 FINDINGS: LUNGS: Endotracheal tube tip at right mainstem bronchus orifice-recommend retraction 2 to 3 cm. Homogeneous low density opacity left hemithorax-interval increased. Pleural fluid and/or atelectasis-right minor fissure-/right mid lung zone Current inspiration less now than before. PLEURA: Left pleural effusion mild moderate-increased since prior exam. Small right pleural effusion probably slightly increased. Minor right fissural fluid and/or subsegmental atelectasis. No pneumothorax appreciated CARDIOVASCULAR: There is presence of aortic atherosclerotic calcification on x-ray. Cardiomegaly. Interval increased pulmonary venous congestion. OSSEOUS STRUCTURES: Bilateral shoulder arthrosis. VISUALIZED UPPER ABDOMEN: Nasogastric tube tip apparently coiled tip difficult to visualize-possibly correlate near GE junction. Correlate clinically. If needed consider repeat chest x-ray with specific remark on requisition to check position of distal nasogastric tube. OTHER FINDINGS: None. IMPRESSION: Endotracheal tube tip at right mainstem orifice. Recommend retraction 2 to 3 cm. This finding and recommendation was called up to the ICU and given to Windy nurse taking care of this patient at 7:45 a.m. on 07/14/2018 Other findings as above.
[2018-07-14] MEDS: Pantoprazole 40 mg EC Tab PO SCH (08:20)
--- NOTE | 2018-07-14 09:22 | CP.PCM.PN ---
Subjective - Date & Time of Evaluation Date of Evaluation: 07/14/18 Time of Evaluation: 09:02 - Subjective Subjective: Seen on rounds in the ICU. Interim events and EMR entries reviewed. Extubated, but re-intubated yesterday afternoon. Case discussed with table attendant and nursing. Unable to view chest x-ray this morning, report noted. ETT has been pulled back 2cm as per radiologist report. Vital signs have remained stable, fluid balance still ++. Morning ABG is noted and adjustments to ventilator settings planned. Patient is awake and cooperative with exam, anxious for extubation. Dependant edema ++, no cyanosis, extremities are warm and pink. Neck is supple and trachea midline. No dullness on percussion of the anterior chest wall. Breath sounds are heard equally in both lungs anteriorly, diminished. Breath sounds are very much diminished posteriorly with bronchial breathing bilaterally, more L>R. heart sounds are distant, rhythm is [id number]. PAP 26cm, MAP 10cm, plateau 20cm, RR 12/14. Will begin SIMV with pressure support: 12/10, FiO2 50. Repeat culture of tracheal aspirate. Patient reassured that weaning will continue. Discussed free water volume given via OGT with table attendant. Increased diuretic therapy planned for today. CCT 30min. Objective - Vital Signs/Intake and Output Vital Signs (last 24 hours): Temp Pulse Resp BP Pulse Ox 992 F H 86 19 116/77 99 07/14/18 08:00 07/14/18 08:00 07/14/18 08:00 07/14/18 08:00 07/14/18 08:00 Intake and Output: 07/13/18 07/14/18 23:59 11:59 Intake Total 1190 1264 Output Total 1900 800 Balance -710 464 - Medications Medications: Current Medications Acetaminophen (Tylenol 650mg/20.3ml Solution Ud) 650 mg NG Q6 PRN PRN Reason: Fever>100.4F Last Admin: 07/12/18 21:01 Dose: 650 mg Albuterol/Ipratropium (Duoneb 3 Mg/0.5 Mg (3 Ml) Ud) 3 ml INH RQ6 [facility] Last Admin: 07/14/18 07:27 Dose: 3 ml Aspirin (Ecotrin) 81 mg PO DAILY [facility] Last Admin: 07/14/18 08:21 Dose: 81 mg Atorvastatin Calcium (Lipitor) 20 mg PO HS [facility] Last Admin: 07/13/18 21:30 Dose: 20 mg Docusate Sodium (Colace) 100 mg PO BID [facility] Last Admin: 07/13/18 17:52 Dose: Not Given Folic Acid (Folic Acid) 1 mg NG DAILY [facility] Last Admin: 07/14/18 08:20 Dose: 1 mg Furosemide (Lasix) 40 mg IVP DAILY [facility] Last Admin: 07/13/18 09:51 Dose: 40 mg Vancomycin HCl 750 mg/ Sodium (Chloride) 250 mls @ 166.667 mls/hr IVPB Q12 [facility]; Protocol Last Admin: 07/13/18 21:30 Dose: 166.667 mls/hr Meropenem 1 gm/ Sodium (Chloride) 100 mls @ 100 mls/hr IVPB Q8 [facility]; Protocol Last Admin: 07/14/18 08:17 Dose: 100 mls/hr Heparin Sodium/Dextrose (Heparin 25,000 Units/250ml In D5w) 25,000 units in 250 mls @ 12 mls/hr IV .[id number] [facility]; Protocol Last Titration: 07/14/18 08:39 Dose: 1,400 units/hr, 14 mls/hr Propofol (Diprivan) 1,000 mg in 100 mls @ 2.776 mls/hr IV .Q24H [facility]; Protocol Stop: 07/14/18 14:56 Last Admin: 07/14/18 04:56 Dose: 10 mcg/kg/min, 5.552 mls/hr Lactic Acid (Lac-Hydrin 12% Lotion (225 G)) 1 applic TOP TID [facility] Last Admin: 07/14/18 08:19 Dose: 1 applic Lactulose (Enulose) 10 gm PO DAILY PRN PRN Reason: Constipation Metoprolol Tartrate (Lopressor) 25 mg PO Q12 [facility] Last Admin: 07/09/18 08:38 Dose: 25 mg Nystatin (Nystop Topical Powder) 1 applic TOP TID [facility] Last Admin: 07/14/18 08:23 Dose: 1 applic Ondansetron HCl (Zofran Inj) 4 mg IVP Q6H PRN PRN Reason: Nausea/Vomiting Pantoprazole Sodium (Protonix Ec Tab) 40 mg PO DAILY [facility] Last Admin: 07/14/18 08:20 Dose: 40 mg Pyridostigmine [place] (Mestinon Tab) 30 mg PO TID [facility] Last Admin: 07/14/18 08:22 Dose: 30 mg Sennosides (Senokot Tab) 8.6 mg PO BID [facility] Last Admin: 07/14/18 08:24 Dose: 8.6 mg Thiamine HCl (Vitamin B1 Tab) 100 mg NG DAILY [facility] Last Admin: 07/14/18 08:20 Dose: 100 mg - Labs Labs: 07/14/18 06:29 07/14/18 06:29 PT 12.6 Seconds (9.8-13.1) 07/08/18 00:19 INR 1.1 07/08/18 00:19 APTT 43.9 Seconds (25.6-37.1) H 07/14/18 06:29 Assessment and Plan (1) Respiratory failure with hypoxia and hypercapnia Status: Acute (2) Endotracheally intubated Status: Acute (3) Pleural effusion, left Status: Suspected (4) Dependent edema Status: Chronic (5) COPD (chronic obstructive pulmonary disease) Status: Chronic (6) Pneumonia Status: Acute
--- NOTE | 2018-07-14 10:37 | CP.PCM.PN ---
Subjective - Date & Time of Evaluation Date of Evaluation: 07/14/18 Time of Evaluation: 10:42 - Subjective Subjective: Patient remain on the respirator Vital signs noted to be stable Objective - Vital Signs/Intake and Output Vital Signs (last 24 hours): Temp Pulse Resp BP Pulse Ox 992 F H 89 26 H 128/72 98 07/14/18 08:00 07/14/18 09:00 07/14/18 09:00 07/14/18 10:25 07/14/18 09:00 Intake and Output: 07/14/18 07/14/18 06:59 18:59 Intake Total 1532 826 Output Total 550 250 Balance 982 576 - Medications Medications: Current Medications Acetaminophen (Tylenol 650mg/20.3ml Solution Ud) 650 mg NG Q6 PRN PRN Reason: Fever>100.4F Last Admin: 07/12/18 21:01 Dose: 650 mg Albuterol/Ipratropium (Duoneb 3 Mg/0.5 Mg (3 Ml) Ud) 3 ml INH RQ6 [facility] Last Admin: 07/14/18 07:27 Dose: 3 ml Aspirin (Ecotrin) 81 mg PO DAILY [facility] Last Admin: 07/14/18 08:21 Dose: 81 mg Atorvastatin Calcium (Lipitor) 20 mg PO HS [facility] Last Admin: 07/13/18 21:30 Dose: 20 mg Docusate Sodium (Colace) 100 mg PO BID [facility] Last Admin: 07/13/18 17:52 Dose: Not Given Folic Acid (Folic Acid) 1 mg NG DAILY [facility] Last Admin: 07/14/18 08:20 Dose: 1 mg Furosemide (Lasix) 40 mg IVP DAILY [facility] Last Admin: 07/14/18 10:25 Dose: 40 mg Vancomycin HCl 750 mg/ Sodium (Chloride) 250 mls @ 166.667 mls/hr IVPB Q12 [facility]; Protocol Last Admin: 07/14/18 09:26 Dose: 166.667 mls/hr Meropenem 1 gm/ Sodium (Chloride) 100 mls @ 100 mls/hr IVPB Q8 [facility]; Protocol Last Admin: 07/14/18 08:17 Dose: 100 mls/hr Propofol (Diprivan) 1,000 mg in 100 mls @ 2.776 mls/hr IV .Q24H [facility]; Protocol Stop: 07/14/18 14:56 Last Admin: 07/14/18 04:56 Dose: 10 mcg/kg/min, 5.552 mls/hr Lactic Acid (Lac-Hydrin 12% Lotion (225 G)) 1 applic TOP TID [facility] Last Admin: 07/14/18 08:19 Dose: 1 applic Lactulose (Enulose) 10 gm PO DAILY PRN PRN Reason: Constipation Metoprolol Tartrate (Lopressor) 25 mg PO Q12 [facility] Last Admin: 07/09/18 08:38 Dose: 25 mg Nystatin (Nystop Topical Powder) 1 applic TOP TID [facility] Last Admin: 07/14/18 08:23 Dose: 1 applic Ondansetron HCl (Zofran Inj) 4 mg IVP Q6H PRN PRN Reason: Nausea/Vomiting Pantoprazole Sodium (Protonix Ec Tab) 40 mg PO DAILY [facility] Last Admin: 07/14/18 08:20 Dose: 40 mg Pyridostigmine [place] (Mestinon Tab) 30 mg PO TID [facility] Last Admin: 07/14/18 08:22 Dose: 30 mg Sennosides (Senokot Tab) 8.6 mg PO BID [facility] Last Admin: 07/14/18 08:24 Dose: 8.6 mg Thiamine HCl (Vitamin B1 Tab) 100 mg NG DAILY [facility] Last Admin: 07/14/18 08:20 Dose: 100 mg - Labs Labs: 07/14/18 06:29 07/14/18 06:29 PT 12.6 Seconds (9.8-13.1) 07/08/18 00:19 INR 1.1 07/08/18 00:19 APTT 43.9 Seconds (25.6-37.1) H 07/14/18 06:29 - Constitutional Appears: No Acute Distress - Eye Exam Eye Exam: Conjunctival injection - ENT Exam ENT Exam: Mucous Membranes Moist - Neck Exam Neck Exam: absent: Lymphadenopathy - Respiratory Exam Respiratory Exam: Rhonchi, NORMAL BREATHING PATTERN. absent: Chest Wall Tenderness - Cardiovascular Exam Cardiovascular Exam: absent: Gallop, JVD, Rubs - GI/Abdominal Exam GI & Abdominal Exam: Soft, Normal Bowel Sounds. absent: Tenderness - Extremities Exam Extremities Exam: absent: Calf Tenderness - Back Exam Back Exam: absent: CVA tenderness (L), CVA tenderness (R) - Neurological Exam Neurological Exam: Alert - Psychiatric Exam Psychiatric exam: Flat Affect - Skin Skin Exam: absent: Cyanosis Assessment and Plan (1) Cellulitis of right lower leg Status: Acute (2) Pneumonia Status: Acute (3) Respiratory failure with hypoxia and hypercapnia Status: Acute (4) Sepsis Status: Acute - Assessment and Plan (Free Text) Assessment: imp: ARF/ recovering Respiratory failure / Anemia / Pnemonia /hypermagnesemia Metabolic alkalosis Recommendation recovering from acute kidney injury noted CO2 going up 40, we will discuss with the blood bank booking clerk about DC Lasix or adding Diamox if no contraindication otherwise
--- NOTE | 2018-07-14 11:17 | CP.PCM.PN ---
Subjective - Date & Time of Evaluation Date of Evaluation: 07/14/18 Time of Evaluation: 09:30 - Subjective Subjective: NOTE: I AM COVERING DR WADE BATES WHO HAS ASKED ME TO SEE AND FOLLOW THIS PATIENT WHO I KNOW FROM PREVIOUS VISITS IN [facility] PATIENT IS INTUBATED AND DENIES CHEST PAIN Objective - Vital Signs/Intake and Output Vital Signs (last 24 hours): Temp Pulse Resp BP Pulse Ox 992 F H 78 19 128/72 97 07/14/18 08:00 07/14/18 10:00 07/14/18 10:00 07/14/18 10:25 07/14/18 10:00 Intake and Output: 07/14/18 07/14/18 06:59 18:59 Intake Total 1532 826 Output Total 550 250 Balance 982 576 - Medications Medications: Current Medications Acetaminophen (Tylenol 650mg/20.3ml Solution Ud) 650 mg NG Q6 PRN PRN Reason: Fever>100.4F Last Admin: 07/12/18 21:01 Dose: 650 mg Acetazolamide (Diamox 500 Mg Inj) 250 mg IV Q12 [facility] Stop: 07/16/18 09:01 Albuterol/Ipratropium (Duoneb 3 Mg/0.5 Mg (3 Ml) Ud) 3 ml INH RQ6 [facility] Last Admin: 07/14/18 07:27 Dose: 3 ml Aspirin (Ecotrin) 81 mg PO DAILY [facility] Last Admin: 07/14/18 08:21 Dose: 81 mg Atorvastatin Calcium (Lipitor) 20 mg PO HS [facility] Last Admin: 07/13/18 21:30 Dose: 20 mg Docusate Sodium (Colace) 100 mg PO BID [facility] Last Admin: 07/14/18 10:37 Dose: Not Given Folic Acid (Folic Acid) 1 mg NG DAILY [facility] Last Admin: 07/14/18 08:20 Dose: 1 mg Furosemide (Lasix) 40 mg IVP DAILY [facility] Last Admin: 07/14/18 10:25 Dose: 40 mg Vancomycin HCl 750 mg/ Sodium (Chloride) 250 mls @ 166.667 mls/hr IVPB Q12 [facility]; Protocol Last Admin: 07/14/18 09:26 Dose: 166.667 mls/hr Meropenem 1 gm/ Sodium (Chloride) 100 mls @ 100 mls/hr IVPB Q8 [facility]; Protocol Last Admin: 07/14/18 08:17 Dose: 100 mls/hr Propofol (Diprivan) 1,000 mg in 100 mls @ 2.776 mls/hr IV .Q24H [facility]; Protocol Stop: 07/14/18 14:56 Last Admin: 07/14/18 04:56 Dose: 10 mcg/kg/min, 5.552 mls/hr Lactic Acid (Lac-Hydrin 12% Lotion (225 G)) 1 applic TOP TID [facility] Last Admin: 07/14/18 08:19 Dose: 1 applic Lactulose (Enulose) 10 gm PO DAILY PRN PRN Reason: Constipation Metoprolol Tartrate (Lopressor) 25 mg PO Q12 [facility] Last Admin: 07/09/18 08:38 Dose: 25 mg Nystatin (Nystop Topical Powder) 1 applic TOP TID [facility] Last Admin: 07/14/18 08:23 Dose: 1 applic Ondansetron HCl (Zofran Inj) 4 mg IVP Q6H PRN PRN Reason: Nausea/Vomiting Pantoprazole Sodium (Protonix Ec Tab) 40 mg PO DAILY [facility] Last Admin: 07/14/18 08:20 Dose: 40 mg Pyridostigmine [place] (Mestinon Tab) 30 mg PO TID [facility] Last Admin: 07/14/18 08:22 Dose: 30 mg Sennosides (Senokot Tab) 8.6 mg PO BID [facility] Last Admin: 07/14/18 08:24 Dose: 8.6 mg Thiamine HCl (Vitamin B1 Tab) 100 mg NG DAILY [facility] Last Admin: 07/14/18 08:20 Dose: 100 mg - Labs Labs: 07/14/18 06:29 07/14/18 06:29 PT 12.6 Seconds (9.8-13.1) 07/08/18 00:19 INR 1.1 07/08/18 00:19 APTT 43.9 Seconds (25.6-37.1) H 07/14/18 06:29 - Respiratory Exam Respiratory Exam: Decreased Breath Sounds, Rhonchi - Cardiovascular Exam Cardiovascular Exam: Irregular Rhythm, +S1, +S2 - Extremities Exam Extremities Exam: Pedal Edema - Additional Findings Additional findings: [employer] ATRIAL FIBRILLATION WITH MODERATE RATE WBC 13L K+ 3.6 Assessment and Plan - Assessment and Plan (Free Text) Assessment: COPD WITH PNEUMONIA AND PLEURAL EFFUSIONS TAVR FOR AORTIC STENOSIS CHRONIC ATRIAL FIBRILLATION HYPERTENSION HYPERLIPIDEMIA Plan: CONTINUE IV ANTIBIOTICS, ASPIRIN, METOPROLOL, FUROSEMIDE, ATORVASTATIN ON MV AND WILL BE WEANED OFF POSSIBLE
--- NOTE | 2018-07-14 13:14 | CP.PCM.PN ---
Subjective - Date & Time of Evaluation Date of Evaluation: 07/14/18 Time of Evaluation: 09:00 - Subjective Subjective: extubated/ reintubated alert oriented denies fever pain at bedside Objective - Vital Signs/Intake and Output Vital Signs (last 24 hours): Temp Pulse Resp BP Pulse Ox 98.5 F 72 26 H 135/69 97 07/14/18 12:00 07/14/18 12:00 07/14/18 12:00 07/14/18 12:00 07/14/18 12:00 Intake and Output: 07/14/18 07/14/18 06:59 18:59 Intake Total 1532 826 Output Total 550 250 Balance 982 576 - Medications Medications: Current Medications Acetaminophen (Tylenol 650mg/20.3ml Solution Ud) 650 mg NG Q6 PRN PRN Reason: Fever>100.4F Last Admin: 07/12/18 21:01 Dose: 650 mg Acetazolamide (Diamox 500 Mg Inj) 250 mg IV Q12 [facility] Stop: 07/16/18 09:01 Albuterol/Ipratropium (Duoneb 3 Mg/0.5 Mg (3 Ml) Ud) 3 ml INH RQ6 [facility] Last Admin: 07/14/18 13:06 Dose: 3 ml Aspirin (Ecotrin) 81 mg PO DAILY [facility] Last Admin: 07/14/18 08:21 Dose: 81 mg Atorvastatin Calcium (Lipitor) 20 mg PO HS [facility] Last Admin: 07/13/18 21:30 Dose: 20 mg Docusate Sodium (Colace) 100 mg PO BID [facility] Last Admin: 07/14/18 10:37 Dose: Not Given Folic Acid (Folic Acid) 1 mg NG DAILY [facility] Last Admin: 07/14/18 08:20 Dose: 1 mg Furosemide (Lasix) 40 mg IVP DAILY [facility] Last Admin: 07/14/18 10:25 Dose: 40 mg Vancomycin HCl 750 mg/ Sodium (Chloride) 250 mls @ 166.667 mls/hr IVPB Q12 [facility]; Protocol Last Admin: 07/14/18 09:26 Dose: 166.667 mls/hr Meropenem 1 gm/ Sodium (Chloride) 100 mls @ 100 mls/hr IVPB Q8 [facility]; Protocol Last Admin: 07/14/18 08:17 Dose: 100 mls/hr Propofol (Diprivan) 1,000 mg in 100 mls @ 2.776 mls/hr IV .Q24H [facility]; Protocol Stop: 07/14/18 14:56 Last Admin: 07/14/18 04:56 Dose: 10 mcg/kg/min, 5.552 mls/hr Lactic Acid (Lac-Hydrin 12% Lotion (225 G)) 1 applic TOP TID [facility] Last Admin: 07/14/18 12:08 Dose: 1 applic Lactulose (Enulose) 10 gm PO DAILY PRN PRN Reason: Constipation Metoprolol Tartrate (Lopressor) 25 mg PO Q12 [facility] Last Admin: 07/09/18 08:38 Dose: 25 mg Nystatin (Nystop Topical Powder) 1 applic TOP TID [facility] Last Admin: 07/14/18 12:07 Dose: 1 applic Ondansetron HCl (Zofran Inj) 4 mg IVP Q6H PRN PRN Reason: Nausea/Vomiting Pantoprazole Sodium (Protonix Ec Tab) 40 mg PO DAILY [facility] Last Admin: 07/14/18 08:20 Dose: 40 mg Pyridostigmine [place] (Mestinon Tab) 30 mg PO TID [facility] Last Admin: 07/14/18 12:08 Dose: 30 mg Sennosides (Senokot Tab) 8.6 mg PO BID [facility] Last Admin: 07/14/18 08:24 Dose: 8.6 mg Thiamine HCl (Vitamin B1 Tab) 100 mg NG DAILY [facility] Last Admin: 07/14/18 08:20 Dose: 100 mg - Labs Labs: 07/14/18 06:29 07/14/18 06:29 PT 12.6 Seconds (9.8-13.1) 07/08/18 00:19 INR 1.1 07/08/18 00:19 APTT 43.9 Seconds (25.6-37.1) H 07/14/18 06:29 - Constitutional Appears: Non-toxic, Chronically Ill - Head Exam Head Exam: NORMOCEPHALIC - Eye Exam Eye Exam: absent: Scleral icterus - ENT Exam ENT Exam: Mucous Membranes Dry - Neck Exam Neck Exam: absent: Lymphadenopathy - Respiratory Exam Respiratory Exam: Decreased Breath Sounds - Cardiovascular Exam Cardiovascular Exam: REGULAR RHYTHM - GI/Abdominal Exam GI & Abdominal Exam: Distended, Soft - Rectal Exam Rectal Exam: Deferred - Exam Exam: NORMAL INSPECTION - Extremities Exam Extremities Exam: absent: Pedal Edema - Back Exam Back Exam: absent: CVA tenderness (L), CVA tenderness (R) - Neurological Exam Neurological Exam: Alert, Awake, CN II-XII Intact Assessment and Plan (1) Cellulitis of right lower leg Status: Acute (2) Atrial fibrillation Status: Acute (3) CHF (congestive heart failure) Status: Acute (4) Endotracheally intubated Status: Acute (5) Respiratory distress Status: Acute (6) Respiratory failure with hypoxia and hypercapnia Status: Acute (7) Dependent edema Status: Chronic (8) Pleural effusion, left Status: Suspected (9) Pneumonia Status: Acute (10) COPD (chronic obstructive pulmonary disease) Status: Chronic (11) Sepsis Status: Acute - Assessment and Plan (Free Text) Assessment: resp failure in setting of severe COPD/CHF all cultures neg thus far consider de-escalating iv antibiotics overall poor prognosis
--- NOTE | 2018-07-14 17:47 | CP.CCUPN ---
<Yumi Bang - Last Filed: 07/14/18 17:36> CCU Subjective - Physician Review Subjective (Free Text): Patient was extubated yesterday, did not tolerate being extubated and was re- intubated No acute overnight events. patient is awake and alert, follows commands. Anasarca noted throughout Family present by bedside Assessment/Plan: 1. Acute respiratory failure, hypoxia, hypercarbia -hx of CHF and COPD -vent settings adjusted today -will continue to wean off as tolerated 2. Pneumonia, pleural effusion -ID on board, c/w IV abx -c/w diuresis -afebrile and improved leukocystosis 3. Cellulitis, RLE -ID on board -c/w IV abx 4. Acute kidney injury -likely from sepsis, hypoxia -improved -nephrology on board 5. Anasarca -fluid overloaded -c.w diuresis -diamox added 6. chronic a fib -cardiology on board -rate controlled Critical Care Time Spent (in minutes): 40 CCU Objective - Vital Signs / Intake & Output Vital Signs (Last 4 hours): Vital Signs Temp Pulse Resp BP Pulse Ox 07/14/18 16:00 98.2 F 85 137/69 93 L 07/14/18 14:00 78 24 111/67 96 Intake and Output (Last 8hrs): Intake & Output 07/14/18 07/14/18 07/14/18 06:59 14:59 22:59 Intake Total 1138 1276 100 Output Total 550 250 Balance 588 1026 100 Weight 90.265 kg Intake: IV 318 6 Intake, Piggyback 100 350 Oral 120 Tube Feeding 220 300 100 Free Water Flush 500 500 Output: Urine 550 250 Urethral (Hyde) 550 250 - Physical Exam Head: Positive for: Atraumatic Pupils: Positive for: PERRL Mouth: Positive for: Other (orally intubated) Respiratory/Chest: Positive for: Other (Rales on B/L lower lung field and left lung). Negative for: Wheezes Cardiovascular: Positive for: Irregular Rhythm Abdomen: Positive for: Distention, Normal Bowel Sounds. Negative for: Tenderness, Peritoneal Signs Upper Extremity: Positive for: Normal Inspection Lower Extremity: Positive for: Edema (2+) Skin: Positive for: Warm, Other (RLE mildly more erythematous then LLE ) Psychiatric: Negative for: Alert - Medications Active Medications: Active Medications Generic Name Dose Route Start Last Admin Trade Name Freq PRN Reason Stop Dose Admin Acetaminophen 650 mg 07/08/18 08:01 07/12/18 21:01 Tylenol 650mg/20.3ml Solution Ud NG 650 mg Q6 PRN Administration Fever>100.4F Acetazolamide 250 mg 07/14/18 21:00 Diamox 500 Mg Inj IV 07/16/18 09:01 Q12 L[facility] Albuterol/Ipratropium 3 ml 07/08/18 14:00 07/14/18 13:06 Duoneb 3 Mg/0.5 Mg (3 Ml) Ud INH 3 ml RQ6 [facility] Administration Aspirin 81 mg 07/08/18 09:00 07/14/18 08:21 Ecotrin PO 81 mg DAILY L[facility] Administration Atorvastatin Calcium 20 mg 07/08/18 22:00 07/13/18 21:30 Lipitor PO 20 mg HS [facility] Administration Docusate Sodium 100 mg 07/08/18 09:00 07/14/18 16:16 Colace PO Not Given BID L[facility]SA Folic Acid 1 mg 07/08/18 11:15 07/14/18 08:20 Folic Acid NG 1 mg DAILY [facility] Administration Furosemide 40 mg 07/10/18 09:00 07/14/18 10:25 Lasix IVP 40 mg DAILY [facility] Administration Vancomycin HCl 750 mg/ Sodium 250 mls @ 166.667 mls/hr 07/08/18 21:00 07/14/18 09:26 Chloride IVPB 166.667 mls/hr Q12 [facility] Administration Protocol Meropenem 1 gm/ Sodium 100 mls @ 100 mls/hr 07/09/18 11:45 07/14/18 16:13 Chloride IVPB 100 mls/hr Q8 [facility] Administration Protocol Lactic Acid 1 applic 07/08/18 09:00 07/14/18 16:14 Lac-Hydrin 12% Lotion (225 G) TOP 1 applic TID [facility] Administration Lactulose 10 gm 07/08/18 03:46 Enulose PO DAILY PRN Constipation Metoprolol Tartrate 25 mg 07/08/18 09:00 07/09/18 08:38 Lopressor PO 25 mg Q12 [facility] Administration Nystatin 1 applic 07/08/18 13:00 07/14/18 16:14 Nystop Topical Powder TOP 1 applic TID [facility] Administration Ondansetron HCl 4 mg 07/08/18 03:44 Zofran Inj IVP Q6H PRN Nausea/Vomiting Pantoprazole Sodium 40 mg 07/08/18 09:00 07/14/18 08:20 Protonix Ec Tab PO 40 mg DAILY [facility] Administration Pyridostigmine [place] 30 mg 07/08/18 09:00 07/14/18 16:15 Mestinon Tab PO 30 mg TID [facility] Administration Sennosides 8.6 mg 07/08/18 09:00 07/14/18 08:24 Senokot Tab PO 8.6 mg BID [facility] Administration Thiamine HCl 100 mg 07/08/18 11:15 07/14/18 08:20 Vitamin B1 Tab NG 100 mg DAILY [facility] Administration - Patient Studies Lab Studies: Lab Studies 07/14/18 07/14/18 07/14/18 Range/Units 15:45 06:29 06:29 WBC (4.8-10.8) K/uL RBC (4.40-5.90) Mil/uL Hgb (12.0-18.0) g/dL Hct (35.0-51.0) % MCV (80.0-94.0) fl MCH (27.0-31.0) pg MCHC (33.0-37.0) g/dL RDW (11.5-14.5) % Plt Count (130-400) K/uL APTT 57.0 H 43.9 H (25.6-37.1) Seconds pCO2 (35-45) mm/Hg pO2 (80-100) mm/Hg HCO3 (21-28) mmol/L ABG pH (7.35-7.45) ABG Total CO2 (22-28) mmol/L ABG O2 Saturation (95-98) % ABG O2 Content (15-23) ML/dL ABG Base Excess (-2.0-3.0) mmol/L ABG Hemoglobin (11.7-17.4) g/dL ABG Carboxyhemoglobin (0.5-1.5) % POC ABG HHb (Measured) (0.0-5.0) % ABG Methemoglobin (0.0-3.0) % ABG O2 Capacity (16-24) mL/dL Nam Test A-a O2 Difference mm/Hg Hgb O2 Saturation (95.0-98.0) % Mechanical Rate FiO2 % Tidal Volume PEEP Sodium 139 (132-148) mmol/l Potassium 3.6 (3.6-5.0) MMOL/L Chloride 98 (98-107) mmol/L Carbon Dioxide 40 H* (22-30) mmol/L Anion Gap 5 L (10-20) BUN 30 H (9-20) mg/dl Creatinine 0.9 (0.8-1.5) mg/dl Est GFR ( Amer) > 60 Est GFR (Non-Af Amer) > 60 Random Glucose 135 H (75-110) mg/dL Calcium 8.1 L (8.4-10.2) mg/dL Total Bilirubin 0.4 (0.2-1.3) mg/dl AST 36 (17-59) U/L ALT 32 (21-72) U/L Alkaline Phosphatase 94 (38-126) U/L Total Protein 5.9 L (6.3-8.2) G/DL Albumin 3.0 L (3.5-5.0) g/dL Globulin 2.9 (2.2-3.9) gm/dL Albumin/Globulin Ratio 1.0 (1.0-2.1) 07/14/18 07/14/18 Range/Units 06:29 05:46 WBC 13.1 H (4.8-10.8) K/uL RBC 3.07 L (4.40-5.90) Mil/uL Hgb 8.9 L (12.0-18.0) g/dL Hct 28.1 L (35.0-51.0) % MCV 91.6 (80.0-94.0) fl MCH 28.9 (27.0-31.0) pg MCHC 31.5 L (33.0-37.0) g/dL RDW 16.5 H (11.5-14.5) % Plt Count 176 (130-400) K/uL APTT (25.6-37.1) Seconds pCO2 59 H (35-45) mm/Hg pO2 121 H (80-100) mm/Hg HCO3 35.6 H (21-28) mmol/L ABG pH 7.44 (7.35-7.45) ABG Total CO2 41.9 H (22-28) mmol/L ABG O2 Saturation 99.7 H (95-98) % ABG O2 Content 15.2 (15-23) ML/dL ABG Base Excess 13.7 H (-2.0-3.0) mmol/L ABG Hemoglobin 11.0 L (11.7-17.4) g/dL ABG Carboxyhemoglobin 1.7 H (0.5-1.5) % POC ABG HHb (Measured) 0.3 (0.0-5.0) % ABG Methemoglobin 1.2 (0.0-3.0) % ABG O2 Capacity 15.2 L (16-24) mL/dL Nam Test Yes A-a O2 Difference 233.0 mm/Hg Hgb O2 Saturation 96.8 (95.0-98.0) % Mechanical Rate 12 FiO2 60.0 % Tidal Volume 450 PEEP 5 Sodium (132-148) mmol/l Potassium (3.6-5.0) MMOL/L Chloride (98-107) mmol/L Carbon Dioxide (22-30) mmol/L Anion Gap (10-20) BUN (9-20) mg/dl Creatinine (0.8-1.5) mg/dl Est GFR ( Amer) Est GFR (Non-Af Amer) Random Glucose (75-110) mg/dL Calcium (8.4-10.2) mg/dL Total Bilirubin (0.2-1.3) mg/dl AST (17-59) U/L ALT (21-72) U/L Alkaline Phosphatase (38-126) U/L Total Protein (6.3-8.2) G/DL Albumin (3.5-5.0) g/dL Globulin (2.2-3.9) gm/dL Albumin/Globulin Ratio (1.0-2.1) Laboratory Results - last 24 hr 07/14/18 07/14/18 07/14/18 05:46 06:29 06:29 WBC 13.1 H RBC 3.07 L Hgb 8.9 L Hct 28.1 L MCV 91.6 MCH 28.9 MCHC 31.5 L RDW 16.5 H Plt Count 176 APTT pCO2 59 H pO2 121 H HCO3 35.6 H ABG pH 7.44 ABG Total CO2 41.9 H ABG O2 Saturation 99.7 H ABG O2 Content 15.2 ABG Base Excess 13.7 H ABG Hemoglobin 11.0 L ABG Carboxyhemoglobin 1.7 H POC ABG HHb (Measured) 0.3 ABG Methemoglobin 1.2 ABG O2 Capacity 15.2 L Nam Test Yes A-a O2 Difference 233.0 Hgb O2 Saturation 96.8 Mechanical Rate 12 FiO2 60.0 Tidal Volume 450 PEEP 5 Sodium 139 Potassium 3.6 Chloride 98 Carbon Dioxide 40 H* Anion Gap 5 L BUN 30 H Creatinine 0.9 Est GFR ( Amer) > 60 Est GFR (Non-Af Amer) > 60 Random Glucose 135 H Calcium 8.1 L Total Bilirubin 0.4 AST 36 ALT 32 Alkaline Phosphatase 94 Total Protein 5.9 L Albumin 3.0 L Globulin 2.9 Albumin/Globulin Ratio 1.0 07/14/18 07/14/18 06:29 15:45 WBC RBC Hgb Hct MCV MCH MCHC RDW Plt Count APTT 43.9 H 57.0 H pCO2 pO2 HCO3 ABG pH ABG Total CO2 ABG O2 Saturation ABG O2 Content ABG Base Excess ABG Hemoglobin ABG Carboxyhemoglobin POC ABG HHb (Measured) ABG Methemoglobin ABG O2 Capacity Nam Test A-a O2 Difference Hgb O2 Saturation Mechanical Rate FiO2 Tidal Volume PEEP Sodium Potassium Chloride Carbon Dioxide Anion Gap BUN Creatinine Est GFR ( Amer) Est GFR (Non-Af Amer) Random Glucose Calcium Total Bilirubin AST ALT Alkaline Phosphatase Total Protein Albumin Globulin Albumin/Globulin Ratio Radiology Impressions: Radiology Impressions Chest X-Ray 07/13/18 14:23 IMPRESSION: Satisfactory position of support apparatus. Stable multifocal infiltrates. Stable bilateral pleural effusions left larger than right. Chest X-Ray 07/14/18 04:10 IMPRESSION: Endotracheal tube tip at right mainstem orifice. Recommend retraction 2 to 3 cm. This finding and recommendation was called up to the ICU and given to Windy nurse taking care of this patient at 7:45 a.m. on 07/14/2018 Other findings as above. <Pio Kang - Last Filed: 07/14/18 19:48> Assessment/Plan - Assessment and Plan (Free Text) Plan: Attestation: Time spent with this patient did not overlap with any other provider's medical or critical care time. Additionally the code selected for the services rendered in this note includes the time spent: talking to the patients family, associated physicians and reviewing hospital data/results not listed here which extended to a total of 40 minutes of critical care. Patient seen and examined at the bedside with Resident Dr. Mariaa Bang; and I agree with her outline of plans and management documented above as discussed on AM rounds; reflecting my review of all applicable clinical data, and participation in the care of the patient throughout the day in ICU; today, July 14, 2018.
--- NOTE | 2018-07-14 19:51 | CP.PCM.PN ---
Subjective - Date & Time of Evaluation Date of Evaluation: 07/14/18 Time of Evaluation: 22:22 - Subjective Subjective: Above noted Objective - Vital Signs/Intake and Output Vital Signs (last 24 hours): Temp Pulse Resp BP Pulse Ox 98.2 F 80 23 128/69 98 07/14/18 16:00 07/14/18 18:00 07/14/18 18:00 07/14/18 18:00 07/14/18 18:00 Intake and Output: 07/14/18 07/15/18 18:59 06:59 Intake Total 1576 Output Total 250 Balance 1326 - Medications Medications: Current Medications Acetaminophen (Tylenol 650mg/20.3ml Solution Ud) 650 mg NG Q6 PRN PRN Reason: Fever>100.4F Last Admin: 07/12/18 21:01 Dose: 650 mg Acetazolamide (Diamox 500 Mg Inj) 250 mg IV Q12 [facility] Stop: 07/16/18 09:01 Albuterol/Ipratropium (Duoneb 3 Mg/0.5 Mg (3 Ml) Ud) 3 ml INH RQ6 [facility] Last Admin: 07/14/18 19:06 Dose: 3 ml Aspirin (Ecotrin) 81 mg PO DAILY [facility] Last Admin: 07/14/18 08:21 Dose: 81 mg Atorvastatin Calcium (Lipitor) 20 mg PO HS [facility] Last Admin: 07/13/18 21:30 Dose: 20 mg Docusate Sodium (Colace) 100 mg PO BID [facility] Last Admin: 07/14/18 16:16 Dose: Not Given Folic Acid (Folic Acid) 1 mg NG DAILY [facility] Last Admin: 07/14/18 08:20 Dose: 1 mg Furosemide (Lasix) 40 mg IVP DAILY [facility] Last Admin: 07/14/18 10:25 Dose: 40 mg Vancomycin HCl 750 mg/ Sodium (Chloride) 250 mls @ 166.667 mls/hr IVPB Q12 [facility]; Protocol Last Admin: 07/14/18 09:26 Dose: 166.667 mls/hr Meropenem 1 gm/ Sodium (Chloride) 100 mls @ 100 mls/hr IVPB Q8 [facility]; Protocol Last Admin: 07/14/18 16:13 Dose: 100 mls/hr Lactic Acid (Lac-Hydrin 12% Lotion (225 G)) 1 applic TOP TID [facility] Last Admin: 07/14/18 16:14 Dose: 1 applic Lactulose (Enulose) 10 gm PO DAILY PRN PRN Reason: Constipation Metoprolol Tartrate (Lopressor) 25 mg PO Q12 [facility] Last Admin: 07/09/18 08:38 Dose: 25 mg Nystatin (Nystop Topical Powder) 1 applic TOP TID [facility] Last Admin: 07/14/18 16:14 Dose: 1 applic Ondansetron HCl (Zofran Inj) 4 mg IVP Q6H PRN PRN Reason: Nausea/Vomiting Pantoprazole Sodium (Protonix Ec Tab) 40 mg PO DAILY [facility] Last Admin: 07/14/18 08:20 Dose: 40 mg Pyridostigmine [place] (Mestinon Tab) 30 mg PO TID [facility] Last Admin: 07/14/18 16:15 Dose: 30 mg Sennosides (Senokot Tab) 8.6 mg PO BID [facility] Last Admin: 07/14/18 08:24 Dose: 8.6 mg Thiamine HCl (Vitamin B1 Tab) 100 mg NG DAILY [facility] Last Admin: 07/14/18 08:20 Dose: 100 mg - Labs Labs: 07/14/18 06:29 07/14/18 06:29 PT 12.6 Seconds (9.8-13.1) 07/08/18 00:19 INR 1.1 07/08/18 00:19 APTT 57.0 Seconds (25.6-37.1) H 07/14/18 15:45 - Respiratory Exam Respiratory Exam: NORMAL BREATHING PATTERN - Cardiovascular Exam Cardiovascular Exam: REGULAR RHYTHM - GI/Abdominal Exam GI & Abdominal Exam: Normal Bowel Sounds Assessment and Plan - Assessment and Plan (Free Text) Assessment: Acute Respiratory Failure Multi lobar pneumonia L pleural effusion Hx R Pleural efusion S/P thoracentesis Hx COPD COSA Smoker ICU Intubated Pulmonary ID Hx CHF Afib S/P TAVR LV fxn good Cardiology anticoagulation Cellulitis RLE ABX Hx ANTHONY/ CKD Lasix Nephrology Chronic ETOH ?? HX Abdominal distention improved Colonic ileus ( recurrent ) + FOBT ?? [place] held etiol ?? 2 to L-S surgery pyridostigmine Hx LLE edema cellulitis ?? ecchymosis?? Endovascular consult ??? CT scan done no significant findings Hx Hyperkalemia 2 to Bactrim?? Hold NAMRATA Hx Hypokalemia Hyperkalemia HTN Prediabetes Hx Low back surgery (Severe Spinal Stenosis) Post operative illeus
[2018-07-15] MEDS: Meropenem 1 GM in Sodium Chloride 0.9% 100 ML IVPB SCH ×3 (01:05→16:14)
[2018-07-15] MEDS: Albuterol-Ipratrop 3 mg / 0.5 (3 ml) UD INH SCH ×4 (01:12→19:01)
[2018-07-15] MEDS: Heparin 25,000units in D5W 25,000 UNITS/250 ML BAG IV SCH ×2 (04:29→17:34)
[2018-07-15 05:12] LABS: BASO # 0.1 K/uL (0.0-0.2); BASO % 0.7 % (0.0-2.0); EOS # 0.2 K/uL (0.0-0.7); EOS % 1.6 % (0.0-4.0); HEMOGLOBIN 8.8 g/dL (12.0-18.0); LYMPH # 1.4 K/uL (1.0-4.3); LYMPH % 11.4 % (20.0-40.0); MEAN CELL VOLUME 92.3 fl (80.0-94.0); MEAN CORPUSCULAR HEMOGLOBIN 28.9 pg (27.0-31.0); MEAN CORPUSCULAR HGB CONC 31.3 g/dL (33.0-37.0); MEAN PLATELET VOLUME 9.5 fl (7.2-11.7); MONO # 2.2 K/uL (0.0-0.8); MONO % 17.6 % (0.0-10.0); NEUT # 8.5 K/uL (1.8-7.0); NEUT % 68.7 % (50.0-75.0); RBC 3.05 Mil/uL (4.40-5.90); RED CELL DISTRIBUTION WIDTH 16.5 % (11.5-14.5); WHITE BLOOD COUNT 12.3 K/uL (4.8-10.8)
[2018-07-15 05:13] LABS: ALB/GLOB RATIO 1.1 (1.0-2.1); ALBUMIN 3.1 g/dL (3.5-5.0); ALT/SGPT 35 U/L (21-72); AST/SGOT 40 U/L (17-59); BLOOD UREA NITROGEN 24 mg/dl (9-20); CALCIUM 8.2 mg/dL (8.4-10.2); GFR NON-AFRICAN AMERICAN > 60
[2018-07-15 05:31] LABS: ABG ALLEN TEST YES; ARTERIAL BLOOD GAS HCO3 34.3 mmol/L (21-28); ARTERIAL BLOOD GAS HEMOGLOBIN 11.1 g/dL (11.7-17.4); ARTERIAL BLOOD GAS O2 CAPACITY 15.4 mL/dL (16-24); ARTERIAL BLOOD GAS O2 CONTENT 15.3 ML/dL (15-23); ARTERIAL BLOOD GAS O2 SAT 99.6 % (95-98); ARTERIAL BLOOD GAS PCO2 65 mm/Hg (35-45); ARTERIAL BLOOD GAS PH 7.39 (7.35-7.45); ARTERIAL BLOOD GAS PO2 112 mm/Hg (80-100); ARTERIAL BLOOD GAS TCO2 41.3 mmol/L (22-28)
[2018-07-15] MEDS: Pantoprazole 40 mg EC Tab PO SCH (08:18)
--- NOTE | 2018-07-15 09:05 | CP.PCM.PN ---
Subjective - Date & Time of Evaluation Date of Evaluation: 07/15/18 Time of Evaluation: 08:43 - Subjective Subjective: Seen in ICU, intubated and mechanically ventilated. Awake and alert, cooperates with exam. Indicates he remains anxious for extubation. Today's chest x-ray was reviewed. Labs reviewed. Begun on acetazolamide yesterday. Intake and output remain positive. Case discussed with nurse and central sterile supply technician. Ventilator changes reviewed, tolerated decreased FiO2. PAP 24cm, MAP 11cm, plateau 21cm, RR 12/16. SpO2 98% on 50% O2. Suctioned small volume jalloh secretions. Neck is supple, trachea midline. No dullness on percussion anteriorly. Breath sounds equally diminished in both lungs anteriorly. Posteriorly breath sounds very diminished on the right, even more so on the left. No audible wheezes or bronchial breath sounds. Breath sounds very diminished on the right and more so on the left (posteriorly). Heart sounds are distant, rhythm remains regular. ++ dependant edema without cyanosis. Extremities are warm to touch. Reduce free water flushes for OGT. Continue present diuretic regimen. Procalcitonin requested (consider reducing abx if negative). Will need PRBC transfusion if he drops below 8GM. FiO2 reduced to 45% (SpO2 96%). Continue weaning protocols: intubated one week now. Objective - Vital Signs/Intake and Output Vital Signs (last 24 hours): Temp Pulse Resp BP Pulse Ox 98.7 F 81 12 129/67 98 07/15/18 08:00 07/15/18 08:00 07/15/18 08:00 07/15/18 08:19 07/15/18 08:00 Intake and Output: 07/14/18 07/15/18 23:59 11:59 Intake Total 950 1454 Output Total 600 Balance 950 854 - Medications Medications: Current Medications Acetaminophen (Tylenol 650mg/20.3ml Solution Ud) 650 mg NG Q6 PRN PRN Reason: Fever>100.4F Last Admin: 07/12/18 21:01 Dose: 650 mg Acetazolamide (Diamox 500 Mg Inj) 250 mg IV Q12 [facility] Stop: 07/16/18 09:01 Last Admin: 07/15/18 08:20 Dose: 250 mg Albuterol/Ipratropium (Duoneb 3 Mg/0.5 Mg (3 Ml) Ud) 3 ml INH RQ6 [facility] Last Admin: 07/15/18 07:58 Dose: 3 ml Aspirin (Ecotrin) 81 mg PO DAILY [facility] Last Admin: 07/15/18 08:19 Dose: 81 mg Atorvastatin Calcium (Lipitor) 20 mg PO HS [facility] Last Admin: 07/14/18 22:28 Dose: 20 mg Docusate Sodium (Colace) 100 mg PO BID [facility] Last Admin: 07/14/18 16:16 Dose: Not Given Folic Acid (Folic Acid) 1 mg NG DAILY [facility] Last Admin: 07/15/18 08:18 Dose: 1 mg Furosemide (Lasix) 40 mg IVP DAILY [facility] Last Admin: 07/15/18 08:19 Dose: 40 mg Vancomycin HCl 750 mg/ Sodium (Chloride) 250 mls @ 166.667 mls/hr IVPB Q12 [facility]; Protocol Last Admin: 07/14/18 22:28 Dose: 166.667 mls/hr Meropenem 1 gm/ Sodium (Chloride) 100 mls @ 100 mls/hr IVPB Q8 [facility]; Protocol Last Admin: 07/15/18 08:16 Dose: 100 mls/hr Heparin Sodium/Dextrose (Heparin 25,000 Units/250ml In D5w) 25,000 units in 250 mls @ 14 mls/hr IV .[id number] [facility]; Protocol Last Admin: 07/15/18 04:29 Dose: 14 mls/hr Lactic Acid (Lac-Hydrin 12% Lotion (225 G)) 1 applic TOP TID [facility] Last Admin: 07/15/18 08:15 Dose: 1 applic Lactulose (Enulose) 10 gm PO DAILY PRN PRN Reason: Constipation Metoprolol Tartrate (Lopressor) 25 mg PO Q12 [facility] Last Admin: 07/09/18 08:38 Dose: 25 mg Nystatin (Nystop Topical Powder) 1 applic TOP TID [facility] Last Admin: 07/15/18 08:15 Dose: 1 applic Ondansetron HCl (Zofran Inj) 4 mg IVP Q6H PRN PRN Reason: Nausea/Vomiting Pantoprazole Sodium (Protonix Ec Tab) 40 mg PO DAILY [facility] Last Admin: 07/15/18 08:18 Dose: 40 mg Pyridostigmine [place] (Mestinon Tab) 30 mg PO TID [facility] Last Admin: 07/15/18 08:17 Dose: 30 mg Sennosides (Senokot Tab) 8.6 mg PO BID [facility] Last Admin: 07/15/18 08:14 Dose: Not Given Thiamine HCl (Vitamin B1 Tab) 100 mg NG DAILY [facility] Last Admin: 07/15/18 08:19 Dose: 100 mg - Labs Labs: 07/15/18 04:55 07/15/18 04:55 PT 12.6 Seconds (9.8-13.1) 07/08/18 00:19 INR 1.1 07/08/18 00:19 APTT 66.6 Seconds (25.6-37.1) H 07/15/18 04:58 Assessment and Plan (1) Respiratory failure with hypoxia and hypercapnia Status: Acute (2) Endotracheally intubated Status: Acute (3) Pleural effusion, left Status: Suspected (4) Dependent edema Status: Chronic (5) COPD (chronic obstructive pulmonary disease) Status: Chronic (6) Pneumonia Status: Acute
--- NOTE | 2018-07-15 09:50 | RAD ---
Date of service: 07/15/2018 HISTORY: intubated COMPARISON: 07/14/2018. FINDINGS: 07/14/2018 endotracheal tube terminates in the mid trachea. Nasogastric tube terminates in the stomach. LUNGS: The lungs are well inflated. There is redemonstration of haziness in the right lower lobe and left lung. PLEURA: There are small effusions and fluid in the right major fissure. CARDIOVASCULAR: There is mild cardiomegaly. There are aortic atherosclerotic calcifications present. OSSEOUS STRUCTURES: Within normal limits for the patient's age. VISUALIZED UPPER ABDOMEN: Normal. OTHER FINDINGS: None. IMPRESSION: Stable position of endotracheal and nasogastric tubes. Persistent haziness in the right lower lobe and left lung which could represent layering effusions or pulmonary edema. Small pleural effusions and persistent mild cardiomegaly.
--- NOTE | 2018-07-15 10:28 | CP.PCM.PN ---
Subjective - Date & Time of Evaluation Date of Evaluation: 07/15/18 Time of Evaluation: 09:30 - Subjective Subjective: NO COMPLAINTS OF CHEST PAIN Objective - Vital Signs/Intake and Output Vital Signs (last 24 hours): Temp Pulse Resp BP Pulse Ox 98.7 F 89 26 H 113/62 97 07/15/18 08:00 07/15/18 10:00 07/15/18 10:00 07/15/18 10:00 07/15/18 10:00 Intake and Output: 07/15/18 07/15/18 06:59 18:59 Intake Total 1604 50 Output Total 600 Balance 1004 50 - Medications Medications: Current Medications Acetaminophen (Tylenol 650mg/20.3ml Solution Ud) 650 mg NG Q6 PRN PRN Reason: Fever>100.4F Last Admin: 07/12/18 21:01 Dose: 650 mg Acetazolamide (Diamox 500 Mg Inj) 250 mg IV Q12 [facility] Stop: 07/16/18 09:01 Last Admin: 07/15/18 08:20 Dose: 250 mg Albuterol/Ipratropium (Duoneb 3 Mg/0.5 Mg (3 Ml) Ud) 3 ml INH RQ6 [facility] Last Admin: 07/15/18 07:58 Dose: 3 ml Aspirin (Ecotrin) 81 mg PO DAILY [facility] Last Admin: 07/15/18 08:19 Dose: 81 mg Atorvastatin Calcium (Lipitor) 20 mg PO HS [facility] Last Admin: 07/14/18 22:28 Dose: 20 mg Docusate Sodium (Colace) 100 mg PO BID [facility] Last Admin: 07/14/18 16:16 Dose: Not Given Folic Acid (Folic Acid) 1 mg NG DAILY [facility] Last Admin: 07/15/18 08:18 Dose: 1 mg Furosemide (Lasix) 40 mg IVP DAILY [facility] Last Admin: 07/15/18 08:19 Dose: 40 mg Vancomycin HCl 750 mg/ Sodium (Chloride) 250 mls @ 166.667 mls/hr IVPB Q12 [facility]; Protocol Last Admin: 07/15/18 08:58 Dose: 166.667 mls/hr Meropenem 1 gm/ Sodium (Chloride) 100 mls @ 100 mls/hr IVPB Q8 [facility]; Protocol Last Admin: 07/15/18 08:16 Dose: 100 mls/hr Heparin Sodium/Dextrose (Heparin 25,000 Units/250ml In D5w) 25,000 units in 250 mls @ 14 mls/hr IV .[id number] [facility]; Protocol Last Admin: 07/15/18 04:29 Dose: 14 mls/hr Lactic Acid (Lac-Hydrin 12% Lotion (225 G)) 1 applic TOP TID [facility] Last Admin: 07/15/18 08:15 Dose: 1 applic Lactulose (Enulose) 10 gm PO DAILY PRN PRN Reason: Constipation Metoprolol Tartrate (Lopressor) 25 mg PO Q12 [facility] Last Admin: 07/09/18 08:38 Dose: 25 mg Nystatin (Nystop Topical Powder) 1 applic TOP TID [facility] Last Admin: 07/15/18 08:15 Dose: 1 applic Ondansetron HCl (Zofran Inj) 4 mg IVP Q6H PRN PRN Reason: Nausea/Vomiting Pantoprazole Sodium (Protonix Ec Tab) 40 mg PO DAILY [facility] Last Admin: 07/15/18 08:18 Dose: 40 mg Pyridostigmine [place] (Mestinon Tab) 30 mg PO TID [facility] Last Admin: 07/15/18 08:17 Dose: 30 mg Sennosides (Senokot Tab) 8.6 mg PO BID [facility] Last Admin: 07/15/18 08:14 Dose: Not Given Thiamine HCl (Vitamin B1 Tab) 100 mg NG DAILY [facility] Last Admin: 07/15/18 08:19 Dose: 100 mg - Labs Labs: 07/15/18 04:55 07/15/18 04:55 PT 12.6 Seconds (9.8-13.1) 07/08/18 00:19 INR 1.1 07/08/18 00:19 APTT 66.6 Seconds (25.6-37.1) H 07/15/18 04:58 - Respiratory Exam Respiratory Exam: Decreased Breath Sounds - Cardiovascular Exam Cardiovascular Exam: Irregular Rhythm, +S1, +S2 - Extremities Exam Extremities Exam: Pedal Edema - Additional Findings Additional findings: MRI SUPERVISOR ATRIAL FIBRILLATION PULMONARY NOTE REVIEWED Assessment and Plan - Assessment and Plan (Free Text) Assessment: PNEUMONIA COPD S/P TAVR CHRONIC ATRIAL FIBRILLATION Plan: CONTINUE PRESENT TX MV WEANING ATTEMPTS BEING MADE
--- NOTE | 2018-07-15 10:32 | CP.PCM.PN ---
Subjective - Date & Time of Evaluation Date of Evaluation: 07/15/18 Time of Evaluation: 10:32 - Subjective Subjective: Patient awake on respirator Vital signs noted to be stable Objective - Vital Signs/Intake and Output Vital Signs (last 24 hours): Temp Pulse Resp BP Pulse Ox 98.7 F 89 26 H 113/62 97 07/15/18 08:00 07/15/18 10:00 07/15/18 10:00 07/15/18 10:00 07/15/18 10:00 Intake and Output: 07/15/18 07/15/18 06:59 18:59 Intake Total 1604 660 Output Total 600 Balance 1004 660 - Medications Medications: Current Medications Acetaminophen (Tylenol 650mg/20.3ml Solution Ud) 650 mg NG Q6 PRN PRN Reason: Fever>100.4F Last Admin: 07/12/18 21:01 Dose: 650 mg Acetazolamide (Diamox 500 Mg Inj) 250 mg IV Q12 [facility] Stop: 07/16/18 09:01 Last Admin: 07/15/18 08:20 Dose: 250 mg Albuterol/Ipratropium (Duoneb 3 Mg/0.5 Mg (3 Ml) Ud) 3 ml INH RQ6 [facility] Last Admin: 07/15/18 07:58 Dose: 3 ml Aspirin (Ecotrin) 81 mg PO DAILY [facility] Last Admin: 07/15/18 08:19 Dose: 81 mg Atorvastatin Calcium (Lipitor) 20 mg PO HS [facility] Last Admin: 07/14/18 22:28 Dose: 20 mg Docusate Sodium (Colace) 100 mg PO BID [facility] Last Admin: 07/15/18 10:28 Dose: Not Given Folic Acid (Folic Acid) 1 mg NG DAILY [facility] Last Admin: 07/15/18 08:18 Dose: 1 mg Furosemide (Lasix) 40 mg IVP DAILY [facility] Last Admin: 07/15/18 08:19 Dose: 40 mg Vancomycin HCl 750 mg/ Sodium (Chloride) 250 mls @ 166.667 mls/hr IVPB Q12 [facility]; Protocol Last Admin: 07/15/18 08:58 Dose: 166.667 mls/hr Meropenem 1 gm/ Sodium (Chloride) 100 mls @ 100 mls/hr IVPB Q8 [facility]; Protocol Last Admin: 07/15/18 08:16 Dose: 100 mls/hr Heparin Sodium/Dextrose (Heparin 25,000 Units/250ml In D5w) 25,000 units in 250 mls @ 14 mls/hr IV .[id number] [facility]; Protocol Last Admin: 07/15/18 04:29 Dose: 14 mls/hr Lactic Acid (Lac-Hydrin 12% Lotion (225 G)) 1 applic TOP TID [facility] Last Admin: 07/15/18 08:15 Dose: 1 applic Lactulose (Enulose) 10 gm PO DAILY PRN PRN Reason: Constipation Metoprolol Tartrate (Lopressor) 25 mg PO Q12 [facility] Last Admin: 07/09/18 08:38 Dose: 25 mg Nystatin (Nystop Topical Powder) 1 applic TOP TID [facility] Last Admin: 07/15/18 08:15 Dose: 1 applic Ondansetron HCl (Zofran Inj) 4 mg IVP Q6H PRN PRN Reason: Nausea/Vomiting Pantoprazole Sodium (Protonix Ec Tab) 40 mg PO DAILY [facility] Last Admin: 07/15/18 08:18 Dose: 40 mg Pyridostigmine [place] (Mestinon Tab) 30 mg PO TID [facility] Last Admin: 07/15/18 08:17 Dose: 30 mg Sennosides (Senokot Tab) 8.6 mg PO BID [facility] Last Admin: 07/15/18 08:14 Dose: Not Given Thiamine HCl (Vitamin B1 Tab) 100 mg NG DAILY [facility] Last Admin: 07/15/18 08:19 Dose: 100 mg - Labs Labs: 07/15/18 04:55 07/15/18 04:55 PT 12.6 Seconds (9.8-13.1) 07/08/18 00:19 INR 1.1 07/08/18 00:19 APTT 66.6 Seconds (25.6-37.1) H 07/15/18 04:58 - Constitutional Appears: No Acute Distress - Eye Exam Eye Exam: Conjunctival injection - ENT Exam ENT Exam: Mucous Membranes Moist - Neck Exam Neck Exam: absent: Lymphadenopathy - Respiratory Exam Respiratory Exam: Rhonchi. absent: Chest Wall Tenderness - Cardiovascular Exam Cardiovascular Exam: absent: Gallop, JVD, Rubs - GI/Abdominal Exam GI & Abdominal Exam: Soft, Normal Bowel Sounds - Extremities Exam Extremities Exam: absent: Calf Tenderness - Back Exam Back Exam: absent: CVA tenderness (L), CVA tenderness (R) - Neurological Exam Neurological Exam: Awake - Skin Skin Exam: absent: Cyanosis Assessment and Plan (1) Cellulitis of right lower leg Status: Acute (2) Pneumonia Status: Acute (3) Respiratory failure with hypoxia and hypercapnia Status: Acute (4) Sepsis Status: Acute - Assessment and Plan (Free Text) Assessment: imp: ARF/ recovering Respiratory failure / Anemia / Pnemonia /hypermagnesemia Metabolic alkalosis perhaps diuretic induced Recommendation recovering from acute kidney injury CO2 coming down to 39 this morning from 40 and keep monitoring Patient diuresis rapidly he may need less Lasix ?
--- NOTE | 2018-07-15 13:56 | CP.CCUPN ---
<Yumi Bang - Last Filed: 07/15/18 14:30> CCU Subjective - Physician Review Subjective (Free Text): Patient current remains intubated, Sedation has been off Awake, alert and following commands. Anasarca noted throughout, mild improvement from previous exam present by bedside Vent Setting: Rate 12, Tv 450, FiO2 45 Assessment/Plan: 1. Acute respiratory failure, hypoxia, hypercarbia -hx of CHF and COPD -vent settings adjusted today, per pulmo Fio2 changed to 45, patient is tolerating well -will continue to wean off as tolerated -possible extuabtion in AM 2. Pneumonia, pleural effusion -ID on board, c/w IV abx -c/w diuresis -afebrile and improved leukocystosis 3. Cellulitis, RLE -ID on board -c/w IV abx 4. Acute kidney injury -likely from sepsis, hypoxia -improved -nephrology on board 5. Anasarca -fluid overloaded -c/w diuresis 6. chronic a fib -cardiology on board -rate controlled 7. Dvt prolx -on heparin drip CCU Objective - Vital Signs / Intake & Output Vital Signs (Last 4 hours): Vital Signs Temp Pulse Resp BP Pulse Ox 07/15/18 12:00 98.1 F 92 H 30 H 123/61 100 07/15/18 10:00 89 26 H 113/62 97 Intake and Output (Last 8hrs): Intake & Output 07/14/18 07/15/18 07/15/18 22:59 06:59 14:59 Intake Total 500 1404 1010 Output Total 600 Balance 041 011 6341 Intake: IV 154 Intake, Piggyback 100 350 350 Tube Feeding 400 400 160 Free Water Flush 500 500 Output: Urine 600 Urethral (Hyde) 600 Other: # Bowel Movements 1 - Physical Exam Head: Positive for: Atraumatic Pupils: Positive for: PERRL Mouth: Positive for: Other (orally intubated) Respiratory/Chest: Positive for: Other (Rales on B/L lower lung field and left lung). Negative for: Wheezes Cardiovascular: Positive for: Irregular Rhythm Abdomen: Positive for: Distention, Normal Bowel Sounds. Negative for: Tenderness, Peritoneal Signs Upper Extremity: Positive for: Normal Inspection Lower Extremity: Positive for: Edema (2+) Skin: Positive for: Warm, Other (RLE mildly more erythematous then LLE ) Psychiatric: Negative for: Alert - Medications Active Medications: Active Medications Generic Name Dose Route Start Last Admin Trade Name Freq PRN Reason Stop Dose Admin Acetaminophen 650 mg 07/08/18 08:01 07/12/18 21:01 Tylenol 650mg/20.3ml Solution Ud NG 650 mg Q6 PRN Administration Fever>100.4F Acetazolamide 250 mg 07/14/18 21:00 07/15/18 08:20 Diamox 500 Mg Inj IV 07/16/18 09:01 250 mg Q12 [facility] Administration Albuterol/Ipratropium 3 ml 07/08/18 14:00 07/15/18 13:08 Duoneb 3 Mg/0.5 Mg (3 Ml) Ud INH 3 ml RQ6 [facility] Administration Aspirin 81 mg 07/08/18 09:00 07/15/18 08:19 Ecotrin PO 81 mg DAILY [facility] Administration Atorvastatin Calcium 20 mg 07/08/18 22:00 07/14/18 22:28 Lipitor PO 20 mg HS [facility] Administration Docusate Sodium 100 mg 07/08/18 09:00 07/15/18 10:28 Colace PO Not Given BID [facility] Folic Acid 1 mg 07/08/18 11:15 07/15/18 08:18 Folic Acid NG 1 mg DAILY [facility] Administration Furosemide 40 mg 07/10/18 09:00 07/15/18 08:19 Lasix IVP 40 mg DAILY [facility] Administration Vancomycin HCl 750 mg/ Sodium 250 mls @ 166.667 mls/hr 07/08/18 21:00 07/15/18 08:58 Chloride IVPB 166.667 mls/hr Q12 [facility] Administration Protocol Meropenem 1 gm/ Sodium 100 mls @ 100 mls/hr 07/09/18 11:45 07/15/18 08:16 Chloride IVPB 100 mls/hr Q8 [facility] Administration Protocol Heparin Sodium/Dextrose 25,000 units in 250 mls @ 14 mls/hr 07/14/18 20:15 07/15/18 04:29 Heparin 25,000 Units/250ml In D5w IV 14 mls/hr .[id number] [facility] Administration Protocol Lactic Acid 1 applic 07/08/18 09:00 07/15/18 12:04 Lac-Hydrin 12% Lotion (225 G) TOP 1 applic TID [facility] Administration Lactulose 10 gm 07/08/18 03:46 Enulose PO DAILY PRN Constipation Metoprolol Tartrate 25 mg 07/08/18 09:00 07/09/18 08:38 Lopressor PO 25 mg Q12 [facility] Administration Nystatin 1 applic 07/08/18 13:00 07/15/18 12:04 Nystop Topical Powder TOP 1 applic TID [facility] Administration Ondansetron HCl 4 mg 07/08/18 03:44 Zofran Inj IVP Q6H PRN Nausea/Vomiting Pantoprazole Sodium 40 mg 07/08/18 09:00 07/15/18 08:18 Protonix Ec Tab PO 40 mg DAILY [facility] Administration Pyridostigmine [place] 30 mg 07/08/18 09:00 07/15/18 12:04 Mestinon Tab PO 30 mg TID [facility] Administration Sennosides 8.6 mg 07/08/18 09:00 07/15/18 08:14 Senokot Tab PO Not Given BID [facility] Thiamine HCl 100 mg 07/08/18 11:15 07/15/18 08:19 Vitamin B1 Tab NG 100 mg DAILY [facility] Administration - Patient Studies Lab Studies: Microbiology Studies 07/14/18 09:47 Gram Stain - Final Trachasp Lab Studies 07/15/18 07/15/18 07/15/18 Range/Units 04:58 04:55 04:55 WBC 12.3 H (4.8-10.8) K/uL RBC 3.05 L (4.40-5.90) Mil/uL Hgb 8.8 L (12.0-18.0) g/dL Hct 28.2 L (35.0-51.0) % MCV 92.3 (80.0-94.0) fl MCH 28.9 (27.0-31.0) pg MCHC 31.3 L (33.0-37.0) g/dL RDW 16.5 H (11.5-14.5) % Plt Count 189 (130-400) K/uL MPV 9.5 (7.2-11.7) fl Neut % (Auto) 68.7 (50.0-75.0) % Lymph % (Auto) 11.4 L (20.0-40.0) % [place] % (Auto) 17.6 H (0.0-10.0) % Eos % (Auto) 1.6 (0.0-4.0) % Baso % (Auto) 0.7 (0.0-2.0) % Neut # (Auto) 8.5 H (1.8-7.0) K/uL Lymph # (Auto) 1.4 (1.0-4.3) K/uL [place] # (Auto) 2.2 H (0.0-0.8) K/uL Eos # (Auto) 0.2 (0.0-0.7) K/uL Baso # (Auto) 0.1 (0.0-0.2) K/uL APTT 66.6 H (25.6-37.1) Seconds pCO2 (35-45) mm/Hg pO2 (80-100) mm/Hg HCO3 (21-28) mmol/L ABG pH (7.35-7.45) ABG Total CO2 (22-28) mmol/L ABG O2 Saturation (95-98) % ABG O2 Content (15-23) ML/dL ABG Base Excess (-2.0-3.0) mmol/L ABG Hemoglobin (11.7-17.4) g/dL ABG Carboxyhemoglobin (0.5-1.5) % POC ABG HHb (Measured) (0.0-5.0) % ABG Methemoglobin (0.0-3.0) % ABG O2 Capacity (16-24) mL/dL Nam Test A-a O2 Difference mm/Hg Hgb O2 Saturation (95.0-98.0) % Vent Mode Mechanical Rate FiO2 % Tidal Volume PEEP Pressure Support Sodium 139 (132-148) mmol/l Potassium 3.6 (3.6-5.0) MMOL/L Chloride 97 L (98-107) mmol/L Carbon Dioxide 39 H (22-30) mmol/L Anion Gap 7 L (10-20) BUN 24 H (9-20) mg/dl Creatinine 0.9 (0.8-1.5) mg/dl Est GFR ( Amer) > 60 Est GFR (Non-Af Amer) > 60 Random Glucose 130 H (75-110) mg/dL Calcium 8.2 L (8.4-10.2) mg/dL Total Bilirubin 0.4 (0.2-1.3) mg/dl AST 40 (17-59) U/L ALT 35 (21-72) U/L Alkaline Phosphatase 98 (38-126) U/L Total Protein 6.0 L (6.3-8.2) G/DL Albumin 3.1 L (3.5-5.0) g/dL Globulin 2.9 (2.2-3.9) gm/dL Albumin/Globulin Ratio 1.1 (1.0-2.1) Vancomycin Trough (5.0-10.0) ug/mL 07/15/18 07/14/18 07/14/18 Range/Units 04:54 21:10 21:10 WBC (4.8-10.8) K/uL RBC (4.40-5.90) Mil/uL Hgb (12.0-18.0) g/dL Hct (35.0-51.0) % MCV (80.0-94.0) fl MCH (27.0-31.0) pg MCHC (33.0-37.0) g/dL RDW (11.5-14.5) % Plt Count (130-400) K/uL MPV (7.2-11.7) fl Neut % (Auto) (50.0-75.0) % Lymph % (Auto) (20.0-40.0) % [place] % (Auto) (0.0-10.0) % Eos % (Auto) (0.0-4.0) % Baso % (Auto) (0.0-2.0) % Neut # (Auto) (1.8-7.0) K/uL Lymph # (Auto) (1.0-4.3) K/uL [place] # (Auto) (0.0-0.8) K/uL Eos # (Auto) (0.0-0.7) K/uL Baso # (Auto) (0.0-0.2) K/uL APTT 68.1 H (25.6-37.1) Seconds pCO2 65 H (35-45) mm/Hg pO2 112 H (80-100) mm/Hg HCO3 34.3 H (21-28) mmol/L ABG pH 7.39 (7.35-7.45) ABG Total CO2 41.3 H (22-28) mmol/L ABG O2 Saturation 99.6 H (95-98) % ABG O2 Content 15.3 (15-23) ML/dL ABG Base Excess 12.0 H (-2.0-3.0) mmol/L ABG Hemoglobin 11.1 L (11.7-17.4) g/dL ABG Carboxyhemoglobin 1.9 H (0.5-1.5) % POC ABG HHb (Measured) 0.4 (0.0-5.0) % ABG Methemoglobin 0.9 (0.0-3.0) % ABG O2 Capacity 15.4 L (16-24) mL/dL Nam Test Yes A-a O2 Difference 163.0 mm/Hg Hgb O2 Saturation 96.8 (95.0-98.0) % Vent Mode Simv/ps Mechanical Rate 12 FiO2 50.0 % Tidal Volume 450 PEEP 5 Pressure Support 10 Sodium (132-148) mmol/l Potassium (3.6-5.0) MMOL/L Chloride (98-107) mmol/L Carbon Dioxide (22-30) mmol/L Anion Gap (10-20) BUN (9-20) mg/dl Creatinine (0.8-1.5) mg/dl Est GFR ( Amer) Est GFR (Non-Af Amer) Random Glucose (75-110) mg/dL Calcium (8.4-10.2) mg/dL Total Bilirubin (0.2-1.3) mg/dl AST (17-59) U/L ALT (21-72) U/L Alkaline Phosphatase (38-126) U/L Total Protein (6.3-8.2) G/DL Albumin (3.5-5.0) g/dL Globulin (2.2-3.9) gm/dL Albumin/Globulin Ratio (1.0-2.1) Vancomycin Trough 19.6 H (5.0-10.0) ug/mL 07/14/18 Range/Units 15:45 WBC (4.8-10.8) K/uL RBC (4.40-5.90) Mil/uL Hgb (12.0-18.0) g/dL Hct (35.0-51.0) % MCV (80.0-94.0) fl MCH (27.0-31.0) pg MCHC (33.0-37.0) g/dL RDW (11.5-14.5) % Plt Count (130-400) K/uL MPV (7.2-11.7) fl Neut % (Auto) (50.0-75.0) % Lymph % (Auto) (20.0-40.0) % [place] % (Auto) (0.0-10.0) % Eos % (Auto) (0.0-4.0) % Baso % (Auto) (0.0-2.0) % Neut # (Auto) (1.8-7.0) K/uL Lymph # (Auto) (1.0-4.3) K/uL [place] # (Auto) (0.0-0.8) K/uL Eos # (Auto) (0.0-0.7) K/uL Baso # (Auto) (0.0-0.2) K/uL APTT 57.0 H (25.6-37.1) Seconds pCO2 (35-45) mm/Hg pO2 (80-100) mm/Hg HCO3 (21-28) mmol/L ABG pH (7.35-7.45) ABG Total CO2 (22-28) mmol/L ABG O2 Saturation (95-98) % ABG O2 Content (15-23) ML/dL ABG Base Excess (-2.0-3.0) mmol/L ABG Hemoglobin (11.7-17.4) g/dL ABG Carboxyhemoglobin (0.5-1.5) % POC ABG HHb (Measured) (0.0-5.0) % ABG Methemoglobin (0.0-3.0) % ABG O2 Capacity (16-24) mL/dL Nam Test A-a O2 Difference mm/Hg Hgb O2 Saturation (95.0-98.0) % Vent Mode Mechanical Rate FiO2 % Tidal Volume PEEP Pressure Support Sodium (132-148) mmol/l Potassium (3.6-5.0) MMOL/L Chloride (98-107) mmol/L Carbon Dioxide (22-30) mmol/L Anion Gap (10-20) BUN (9-20) mg/dl Creatinine (0.8-1.5) mg/dl Est GFR ( Amer) Est GFR (Non-Af Amer) Random Glucose (75-110) mg/dL Calcium (8.4-10.2) mg/dL Total Bilirubin (0.2-1.3) mg/dl AST (17-59) U/L ALT (21-72) U/L Alkaline Phosphatase (38-126) U/L Total Protein (6.3-8.2) G/DL Albumin (3.5-5.0) g/dL Globulin (2.2-3.9) gm/dL Albumin/Globulin Ratio (1.0-2.1) Vancomycin Trough (5.0-10.0) ug/mL Laboratory Results - last 24 hr 07/14/18 07/14/18 07/14/18 15:45 21:10 21:10 WBC RBC Hgb Hct MCV MCH MCHC RDW Plt Count MPV Neut % (Auto) Lymph % (Auto) [place] % (Auto) Eos % (Auto) Baso % (Auto) Neut # (Auto) Lymph # (Auto) [place] # (Auto) Eos # (Auto) Baso # (Auto) APTT 57.0 H 68.1 H pCO2 pO2 HCO3 ABG pH ABG Total CO2 ABG O2 Saturation ABG O2 Content ABG Base Excess ABG Hemoglobin ABG Carboxyhemoglobin POC ABG HHb (Measured) ABG Methemoglobin ABG O2 Capacity Nam Test A-a O2 Difference Hgb O2 Saturation Vent Mode Mechanical Rate FiO2 Tidal Volume PEEP Pressure Support Sodium Potassium Chloride Carbon Dioxide Anion Gap BUN Creatinine Est GFR ( Amer) Est GFR (Non-Af Amer) Random Glucose Calcium Total Bilirubin AST ALT Alkaline Phosphatase Total Protein Albumin Globulin Albumin/Globulin Ratio Vancomycin Trough 19.6 H 07/15/18 07/15/18 07/15/18 04:54 04:55 04:55 WBC 12.3 H RBC 3.05 L Hgb 8.8 L Hct 28.2 L MCV 92.3 MCH 28.9 MCHC 31.3 L RDW 16.5 H Plt Count 189 MPV 9.5 Neut % (Auto) 68.7 Lymph % (Auto) 11.4 L [place] % (Auto) 17.6 H Eos % (Auto) 1.6 Baso % (Auto) 0.7 Neut # (Auto) 8.5 H Lymph # (Auto) 1.4 [place] # (Auto) 2.2 H Eos # (Auto) 0.2 Baso # (Auto) 0.1 APTT pCO2 65 H pO2 112 H HCO3 34.3 H ABG pH 7.39 ABG Total CO2 41.3 H ABG O2 Saturation 99.6 H ABG O2 Content 15.3 ABG Base Excess 12.0 H ABG Hemoglobin 11.1 L ABG Carboxyhemoglobin 1.9 H POC ABG HHb (Measured) 0.4 ABG Methemoglobin 0.9 ABG O2 Capacity 15.4 L Nam Test Yes A-a O2 Difference 163.0 Hgb O2 Saturation 96.8 Vent Mode Simv/ps Mechanical Rate 12 FiO2 50.0 Tidal Volume 450 PEEP 5 Pressure Support 10 Sodium 139 Potassium 3.6 Chloride 97 L Carbon Dioxide 39 H Anion Gap 7 L BUN 24 H Creatinine 0.9 Est GFR ( Amer) > 60 Est GFR (Non-Af Amer) > 60 Random Glucose 130 H Calcium 8.2 L Total Bilirubin 0.4 AST 40 ALT 35 Alkaline Phosphatase 98 Total Protein 6.0 L Albumin 3.1 L Globulin 2.9 Albumin/Globulin Ratio 1.1 Vancomycin Trough 07/15/18 04:58 WBC RBC Hgb Hct MCV MCH MCHC RDW Plt Count MPV Neut % (Auto) Lymph % (Auto) [place] % (Auto) Eos % (Auto) Baso % (Auto) Neut # (Auto) Lymph # (Auto) [place] # (Auto) Eos # (Auto) Baso # (Auto) APTT 66.6 H pCO2 pO2 HCO3 ABG pH ABG Total CO2 ABG O2 Saturation ABG O2 Content ABG Base Excess ABG Hemoglobin ABG Carboxyhemoglobin POC ABG HHb (Measured) ABG Methemoglobin ABG O2 Capacity Nam Test A-a O2 Difference Hgb O2 Saturation Vent Mode Mechanical Rate FiO2 Tidal Volume PEEP Pressure Support Sodium Potassium Chloride Carbon Dioxide Anion Gap BUN Creatinine Est GFR ( Amer) Est GFR (Non-Af Amer) Random Glucose Calcium Total Bilirubin AST ALT Alkaline Phosphatase Total Protein Albumin Globulin Albumin/Globulin Ratio Vancomycin Trough Radiology Impressions: Radiology Impressions Chest X-Ray 07/15/18 06:00 IMPRESSION: Stable position of endotracheal and nasogastric tubes. Persistent haziness in the right lower lobe and left lung which could represent layering effusions or pulmonary edema. Small pleural effusions and persistent mild cardiomegaly. <Pio Kang - Last Filed: 07/15/18 17:59> Assessment/Plan - Assessment and Plan (Free Text) Plan: Attestation: Patient seen and examined at the bedside with Resident Dr. Mariaa Bang; and I agree with her outline of plans and management documented above as discussed on AM rounds; reflecting my review of all applicable clinical data, and participation in the care of the patient throughout the day in ICU; today, July 15, 2018.
[2018-07-15] MEDS ORDERED: Heparin25000 units/250ml 1/2NS 25,000 UNITS/250 ML BAG IV ONE (17:29)
--- NOTE | 2018-07-15 17:42 | CP.PCM.PN ---
Subjective - Date & Time of Evaluation Date of Evaluation: 07/15/18 Time of Evaluation: 06:00 - Subjective Subjective: remioans intubated in NAD alert oriented denies fever Objective - Vital Signs/Intake and Output Vital Signs (last 24 hours): Temp Pulse Resp BP Pulse Ox 98.7 F 95 H 20 111/77 99 07/15/18 16:00 07/15/18 16:00 07/15/18 16:00 07/15/18 16:00 07/15/18 16:00 Intake and Output: 07/15/18 07/15/18 06:59 18:59 Intake Total 1604 1820 Output Total 600 1000 Balance 1004 820 - Medications Medications: Current Medications Acetaminophen (Tylenol 650mg/20.3ml Solution Ud) 650 mg NG Q6 PRN PRN Reason: Fever>100.4F Last Admin: 07/12/18 21:01 Dose: 650 mg Acetazolamide (Diamox 500 Mg Inj) 250 mg IV Q12 [facility] Stop: 07/16/18 09:01 Last Admin: 07/15/18 08:20 Dose: 250 mg Albuterol/Ipratropium (Duoneb 3 Mg/0.5 Mg (3 Ml) Ud) 3 ml INH RQ6 [facility] Last Admin: 07/15/18 13:08 Dose: 3 ml Aspirin (Ecotrin) 81 mg PO DAILY [facility] Last Admin: 07/15/18 08:19 Dose: 81 mg Atorvastatin Calcium (Lipitor) 20 mg PO HS [facility] Last Admin: 07/14/18 22:28 Dose: 20 mg Docusate Sodium (Colace) 100 mg PO BID [facility] Last Admin: 07/15/18 16:13 Dose: Not Given Folic Acid (Folic Acid) 1 mg NG DAILY [facility] Last Admin: 07/15/18 08:18 Dose: 1 mg Furosemide (Lasix) 40 mg IVP DAILY [facility] Last Admin: 07/15/18 08:19 Dose: 40 mg Vancomycin HCl 750 mg/ Sodium (Chloride) 250 mls @ 166.667 mls/hr IVPB Q12 [facility]; Protocol Last Admin: 07/15/18 08:58 Dose: 166.667 mls/hr Meropenem 1 gm/ Sodium (Chloride) 100 mls @ 100 mls/hr IVPB Q8 [facility]; Protocol Last Admin: 04/18/19 16:14 Dose: 100 mls/hr Heparin Sodium/Dextrose (Heparin 25,000 Units/250ml In D5w) 25,000 units in 250 mls @ 14 mls/hr IV .[id number] [facility]; Protocol Last Admin: 07/15/18 17:34 Dose: 14 mls/hr Lactic Acid (Lac-Hydrin 12% Lotion (225 G)) 1 applic TOP TID [facility] Last Admin: 07/15/18 16:15 Dose: 1 applic Lactulose (Enulose) 10 gm PO DAILY PRN PRN Reason: Constipation Metoprolol Tartrate (Lopressor) 25 mg PO Q12 [facility] Last Admin: 07/09/18 08:38 Dose: 25 mg Nystatin (Nystop Topical Powder) 1 applic TOP TID [facility] Last Admin: 07/15/18 16:16 Dose: 1 applic Ondansetron HCl (Zofran Inj) 4 mg IVP Q6H PRN PRN Reason: Nausea/Vomiting Pantoprazole Sodium (Protonix Ec Tab) 40 mg PO DAILY [facility] Last Admin: 07/15/18 08:18 Dose: 40 mg Pyridostigmine [place] (Mestinon Tab) 30 mg PO TID [facility] Last Admin: 07/15/18 16:15 Dose: 30 mg Sennosides (Senokot Tab) 8.6 mg PO BID [facility] Last Admin: 07/15/18 08:14 Dose: Not Given Thiamine HCl (Vitamin B1 Tab) 100 mg NG DAILY [facility] Last Admin: 07/15/18 08:19 Dose: 100 mg - Labs Labs: 07/15/18 04:55 07/15/18 04:55 PT 12.6 Seconds (9.8-13.1) 07/08/18 00:19 INR 1.1 07/08/18 00:19 APTT 66.6 Seconds (25.6-37.1) H 07/15/18 04:58 - Constitutional Appears: Non-toxic, No Acute Distress, Chronically Ill - Head Exam Head Exam: ATRAUMATIC, NORMAL INSPECTION, NORMOCEPHALIC - Eye Exam Eye Exam: EOMI, Normal appearance, PERRL. absent: Scleral icterus Pupil Exam: NORMAL ACCOMODATION, PERRL - ENT Exam ENT Exam: Mucous Membranes Moist, Normal Exam Additional comments: ETT + - Neck Exam Neck Exam: Full ROM, Normal Inspection. absent: Lymphadenopathy - Respiratory Exam Respiratory Exam: Decreased Breath Sounds, Prolonged Expiratory Phase, Rales - Cardiovascular Exam Cardiovascular Exam: REGULAR RHYTHM, +S1, +S2. absent: Murmur - GI/Abdominal Exam GI & Abdominal Exam: Soft, Normal Bowel Sounds. absent: Tenderness - Rectal Exam Rectal Exam: Deferred - Exam Exam: NORMAL INSPECTION - Extremities Exam Extremities Exam: Full ROM, Normal Capillary Refill, Normal Inspection. absent: Joint Swelling, Pedal Edema - Back Exam Back Exam: NORMAL INSPECTION - Neurological Exam Neurological Exam: Alert, Awake, CN II-XII Intact, Oriented x3. absent: Normal Gait - Psychiatric Exam Psychiatric exam: Depressed - Skin Skin Exam: Dry, Intact, Normal Color, Warm Assessment and Plan (1) Cellulitis of right lower leg Status: Acute (2) Atrial fibrillation Status: Acute (3) CHF (congestive heart failure) Status: Acute (4) Endotracheally intubated Status: Acute (5) Respiratory distress Status: Acute (6) Respiratory failure with hypoxia and hypercapnia Status: Acute (7) Dependent edema Status: Chronic (8) Pleural effusion, left Status: Suspected (9) Pneumonia Status: Acute (10) COPD (chronic obstructive pulmonary disease) Status: Chronic (11) Sepsis Status: Acute - Assessment and Plan (Free Text) Assessment: afebrile on Vanco/ Merrem cultures so far negative and procalcitonin normal will d/c Alexandero
--- NOTE | 2018-07-15 20:23 | CP.PCM.PN ---
Subjective - Date & Time of Evaluation Date of Evaluation: 07/15/18 Time of Evaluation: 22:22 - Subjective Subjective: Above noted WBC 12K Possible extubation in AM Objective - Vital Signs/Intake and Output Vital Signs (last 24 hours): Temp Pulse Resp BP Pulse Ox 98.7 F 91 H 13 132/79 99 07/15/18 16:00 07/15/18 19:35 07/15/18 19:35 07/15/18 19:35 07/15/18 19:35 Intake and Output: 07/15/18 07/16/18 18:59 06:59 Intake Total 1930 Output Total 1150 Balance 780 - Medications Medications: Current Medications Acetaminophen (Tylenol 650mg/20.3ml Solution Ud) 650 mg NG Q6 PRN PRN Reason: Fever>100.4F Last Admin: 07/12/18 21:01 Dose: 650 mg Acetazolamide (Diamox 500 Mg Inj) 250 mg IV Q12 [facility] Stop: 07/16/18 09:01 Last Admin: 07/15/18 08:20 Dose: 250 mg Albuterol/Ipratropium (Duoneb 3 Mg/0.5 Mg (3 Ml) Ud) 3 ml INH RQ6 [facility] Last Admin: 07/15/18 19:01 Dose: 3 ml Aspirin (Ecotrin) 81 mg PO DAILY [facility] Last Admin: 07/15/18 08:19 Dose: 81 mg Atorvastatin Calcium (Lipitor) 20 mg PO HS [facility] Last Admin: 07/14/18 22:28 Dose: 20 mg Docusate Sodium (Colace) 100 mg PO BID [facility] Last Admin: 07/15/18 16:13 Dose: Not Given Folic Acid (Folic Acid) 1 mg NG DAILY [facility] Last Admin: 07/15/18 08:18 Dose: 1 mg Furosemide (Lasix) 40 mg IVP DAILY [facility] Last Admin: 07/15/18 08:19 Dose: 40 mg Vancomycin HCl 750 mg/ Sodium (Chloride) 250 mls @ 166.667 mls/hr IVPB Q12 [facility]; Protocol Last Admin: 07/15/18 08:58 Dose: 166.667 mls/hr Meropenem 1 gm/ Sodium (Chloride) 100 mls @ 100 mls/hr IVPB Q8 [facility]; Protocol Last Admin: 07/15/18 16:14 Dose: 100 mls/hr Heparin Sodium/Dextrose (Heparin 25,000 Units/250ml In D5w) 25,000 units in 250 mls @ 14 mls/hr IV .[id number] [facility]; Protocol Last Admin: 07/15/18 17:34 Dose: 14 mls/hr Lactic Acid (Lac-Hydrin 12% Lotion (225 G)) 1 applic TOP TID [facility] Last Admin: 07/15/18 16:15 Dose: 1 applic Lactulose (Enulose) 10 gm PO DAILY PRN PRN Reason: Constipation Metoprolol Tartrate (Lopressor) 25 mg PO Q12 [facility] Last Admin: 07/09/18 08:38 Dose: 25 mg Nystatin (Nystop Topical Powder) 1 applic TOP TID [facility] Last Admin: 07/15/18 16:16 Dose: 1 applic Ondansetron HCl (Zofran Inj) 4 mg IVP Q6H PRN PRN Reason: Nausea/Vomiting Pantoprazole Sodium (Protonix Ec Tab) 40 mg PO DAILY [facility] Last Admin: 07/15/18 08:18 Dose: 40 mg Pyridostigmine [place] (Mestinon Tab) 30 mg PO TID [facility] Last Admin: 07/15/18 16:15 Dose: 30 mg Sennosides (Senokot Tab) 8.6 mg PO BID [facility] Last Admin: 07/15/18 08:14 Dose: Not Given Thiamine HCl (Vitamin B1 Tab) 100 mg NG DAILY [facility] Last Admin: 07/15/18 08:19 Dose: 100 mg - Labs Labs: 07/15/18 04:55 07/15/18 04:55 PT 12.6 Seconds (9.8-13.1) 07/08/18 00:19 INR 1.1 07/08/18 00:19 APTT 66.6 Seconds (25.6-37.1) H 07/15/18 04:58 - Respiratory Exam Respiratory Exam: NORMAL BREATHING PATTERN - Cardiovascular Exam Cardiovascular Exam: REGULAR RHYTHM - GI/Abdominal Exam GI & Abdominal Exam: Normal Bowel Sounds Assessment and Plan - Assessment and Plan (Free Text) Assessment: Acute Respiratory Failure Multi lobar pneumonia L pleural effusion Hx R Pleural efusion S/P thoracentesis Hx COPD COSA Smoker ICU Intubated Pulmonary ID Hx CHF Afib S/P TAVR LV fxn good Cardiology anticoagulation Cellulitis RLE ABX Hx ANTHONY/ CKD Lasix Nephrology Chronic ETOH ?? HX Abdominal distention improved Colonic ileus ( recurrent ) + FOBT ?? Eloquis held etiol ?? 2 to L-S surgery pyridostigmine Hx LLE edema cellulitis ?? ecchymosis?? Endovascular consult ??? CT scan done no significant findings Hx Hyperkalemia 2 to Bactrim?? Hold NAMRATA Hx Hypokalemia Hyperkalemia HTN Prediabetes Hx Low back surgery (Severe Spinal Stenosis) Post operative illeus
[2018-07-16] MEDS: Meropenem 1 GM in Sodium Chloride 0.9% 100 ML IVPB SCH ×3 (00:15→16:29)
[2018-07-16] MEDS: Albuterol-Ipratrop 3 mg / 0.5 (3 ml) UD INH SCH ×4 (01:04→19:06)
[2018-07-16 05:11] LABS: BASO # 0.1 K/uL (0.0-0.2); EOS # 0.2 K/uL (0.0-0.7); EOS % 1.7 % (0.0-4.0); LYMPH # 1.1 K/uL (1.0-4.3); LYMPH % 9.8 % (20.0-40.0); MEAN CELL VOLUME 91.6 fl (80.0-94.0); MEAN CORPUSCULAR HGB CONC 31.7 g/dL (33.0-37.0); MEAN PLATELET VOLUME 9.8 fl (7.2-11.7); MONO # 2.3 K/uL (0.0-0.8); MONO % 19.4 % (0.0-10.0); NEUT # 7.9 K/uL (1.8-7.0); NEUT % 68.1 % (50.0-75.0); NRBC % 0.1 % (0.0-0.0); PLATELET COUNT 200 K/uL (130-400); RBC 3.09 Mil/uL (4.40-5.90); RED CELL DISTRIBUTION WIDTH 16.8 % (11.5-14.5); WHITE BLOOD COUNT 11.6 K/uL (4.8-10.8)
[2018-07-16 05:11] LABS: ABG ALLEN TEST YES; ARTERIAL BLOOD GAS HCO3 34.1 mmol/L (21-28); ARTERIAL BLOOD GAS HEMOGLOBIN 9.5 g/dL (11.7-17.4); ARTERIAL BLOOD GAS O2 CAPACITY 13.1 mL/dL (16-24); ARTERIAL BLOOD GAS O2 CONTENT 13.1 ML/dL (15-23); ARTERIAL BLOOD GAS O2 SAT 99.8 % (95-98); ARTERIAL BLOOD GAS PCO2 62 mm/Hg (35-45); ARTERIAL BLOOD GAS PO2 97 mm/Hg (80-100); ARTERIAL BLOOD GAS TCO2 40.3 mmol/L (22-28)
[2018-07-16 05:18] LABS: BLOOD UREA NITROGEN 22 mg/dl (9-20); CALCIUM 8.4 mg/dL (8.4-10.2); GFR NON-AFRICAN AMERICAN > 60
[2018-07-16 07:57] LABS: BANDS 4 % (0-2); EOSINOPHIL 2 % (0-7); LYMPHOCYTE 10 % (20-50); MONOCYTE 20 % (0-10); NEUTROPHIL 64 % (42-75); TOTAL CELLS COUNTED 100
[2018-07-16 07:58] LABS: ANISOCYTOSIS SLIGHT; HYPOCHROMIC SLIGHT; LARGE PLATELETS PRESENT; PLATELET ESTIMATE NORMAL (NORMAL)
[2018-07-16 07:59] LABS: OVALOCYTES SLIGHT
[2018-07-16 08:01] LABS: POIKILOCYTOSIS SLIGHT; TARGET CELLS SLIGHT
--- NOTE | 2018-07-16 08:39 | CP.CCUPN ---
<Yumi Bang - Last Filed: 07/16/18 12:25> CCU Subjective - Physician Review Subjective (Free Text): Patient current remains intubated, Sedation has been off Awake, alert and following commands. Breathing trial this morning, was noted to be tachypnic and requiring high pressures. Breathing trial was terminated after family was seen in room and patient was found to be agitated/excited Anasarca noted throughout, mild improvement from previous exam CXR reviewed this AM, improved from previously and family present by bedside Remains on vent support Assessment/Plan: 1. Acute respiratory failure, hypoxia, hypercarbia -hx of CHF and COPD -vent settings adjusted, per pulmo Fio2 changed to 45, patient is tolerating well -will continue to wean off as tolerated, slow progress -respiratory distress likely attributed to CHF, will continue diuresis -possible extuabtion in the weekend as tolerated 2. Pneumonia, pleural effusion -likely resoled/improved at this time given normal procalcitonin, no leukocytosis and remains afebrile -d/c Vanc today -improved CXR today 3. Cellulitis, RLE -improved/resolved -ID on board; will discuss with ID about possibly d/c the coleen given normal Procalcitonin levels 4. Acute kidney injury -likely from sepsis, hypoxia -improved -nephrology on board 5. Anasarca -fluid overloaded -c/w diuresis (increase lasix to 60mg BID and c/w diamox today 6. chronic a fib -cardiology on board -rate controlled and on heparin 7. Dvt prolx -on heparin drip CCU Objective - Vital Signs / Intake & Output Vital Signs (Last 4 hours): Vital Signs Temp Pulse Resp BP Pulse Ox 07/16/18 08:00 99.3 F 95 H 12 119/67 96 07/16/18 06:00 90 22 135/60 98 07/16/18 05:00 93 H 23 152/65 H 98 Intake and Output (Last 8hrs): Intake & Output 07/15/18 07/16/18 07/16/18 22:59 06:59 14:59 Intake Total 1777 1552 319 Output Total 1150 700 Balance 627 1552 -381 Weight 94.166 kg Intake: IV 514 56 14 Intake, Piggyback 378 56 Tube Feeding 385 440 55 Free Water Flush 500 1000 250 Output: Urine 1150 700 Urethral (Hyde) 1150 700 Other: # Bowel Movements 0 - Physical Exam Head: Positive for: Atraumatic Pupils: Positive for: PERRL Mouth: Positive for: Other (orally intubated) Respiratory/Chest: Positive for: Other (Rales on B/L lower lung field and left lung). Negative for: Wheezes Cardiovascular: Positive for: Irregular Rhythm Abdomen: Positive for: Distention, Normal Bowel Sounds. Negative for: Tenderness, Peritoneal Signs Upper Extremity: Positive for: Normal Inspection Lower Extremity: Positive for: Edema (2+) Skin: Positive for: Warm, Other (RLE mildly more erythematous then LLE ) Psychiatric: Negative for: Alert - Medications Active Medications: Active Medications Generic Name Dose Route Start Last Admin Trade Name Freq PRN Reason Stop Dose Admin Acetaminophen 650 mg 07/08/18 08:01 07/12/18 21:01 Tylenol 650mg/20.3ml Solution Ud NG 650 mg Q6 PRN Administration Fever>100.4F Acetazolamide 250 mg 07/14/18 21:00 07/15/18 20:49 Diamox 500 Mg Inj IV 07/16/18 09:01 250 mg Q12 [facility] Administration Albuterol/Ipratropium 3 ml 07/08/18 14:00 07/16/18 07:40 Duoneb 3 Mg/0.5 Mg (3 Ml) Ud INH 3 ml RQ6 [facility] Administration Aspirin 81 mg 07/08/18 09:00 07/15/18 08:19 Ecotrin PO 81 mg DAILY [facility] Administration Atorvastatin Calcium 20 mg 07/08/18 22:00 07/15/18 21:07 Lipitor PO 20 mg HS [facility] Administration Docusate Sodium 100 mg 07/08/18 09:00 07/15/18 16:13 Colace PO Not Given BID [facility] Folic Acid 1 mg 07/08/18 11:15 07/15/18 08:18 Folic Acid NG 1 mg DAILY [facility] Administration Furosemide 60 mg 07/16/18 09:00 Lasix IVP Q12 [facility] Meropenem 1 gm/ Sodium 100 mls @ 100 mls/hr 07/09/18 11:45 07/16/18 00:15 Chloride IVPB 100 mls/hr Q8 [facility] Administration Protocol Heparin Sodium/Dextrose 25,000 units in 250 mls @ 14 mls/hr 07/14/18 20:15 04/18/19 17:34 Heparin 25,000 Units/250ml In D5w IV 14 mls/hr .[id number] [facility] Administration Protocol Lactic Acid 1 applic 07/08/18 09:00 07/15/18 16:15 Lac-Hydrin 12% Lotion (225 G) TOP 1 applic TID [facility] Administration Lactulose 10 gm 07/08/18 03:46 Enulose PO DAILY PRN Constipation Metoprolol Tartrate 25 mg 07/08/18 09:00 07/09/18 08:38 Lopressor PO 25 mg Q12 [facility] Administration Nystatin 1 applic 07/08/18 13:00 07/15/18 16:16 Nystop Topical Powder TOP 1 applic TID [facility] Administration Ondansetron HCl 4 mg 07/08/18 03:44 Zofran Inj IVP Q6H PRN Nausea/Vomiting Pantoprazole Sodium 40 mg 07/08/18 09:00 07/15/18 08:18 Protonix Ec Tab PO 40 mg DAILY [facility] Administration Pyridostigmine [place] 30 mg 07/08/18 09:00 07/15/18 16:15 Mestinon Tab PO 30 mg TID [facility] Administration Sennosides 8.6 mg 07/08/18 09:00 07/15/18 08:14 Senokot Tab PO Not Given BID [facility] Thiamine HCl 100 mg 07/08/18 11:15 07/15/18 08:19 Vitamin B1 Tab NG 100 mg DAILY [facility] Administration - Patient Studies Lab Studies: Lab Studies 07/16/18 07/16/18 07/16/18 Range/Units 04:58 04:58 04:58 WBC 11.6 H (4.8-10.8) K/uL RBC 3.09 L (4.40-5.90) Mil/uL Hgb 9.0 L (12.0-18.0) g/dL Hct 28.3 L (35.0-51.0) % MCV 91.6 (80.0-94.0) fl MCH 29.0 (27.0-31.0) pg MCHC 31.7 L (33.0-37.0) g/dL RDW 16.8 H (11.5-14.5) % Plt Count 200 (130-400) K/uL MPV 9.8 (7.2-11.7) fl Neut % (Auto) 68.1 (50.0-75.0) % Lymph % (Auto) 9.8 L (20.0-40.0) % [place] % (Auto) 19.4 H (0.0-10.0) % Eos % (Auto) 1.7 (0.0-4.0) % Baso % (Auto) 1.0 (0.0-2.0) % Neut # (Auto) 7.9 H (1.8-7.0) K/uL Lymph # (Auto) 1.1 (1.0-4.3) K/uL [place] # (Auto) 2.3 H (0.0-0.8) K/uL Eos # (Auto) 0.2 (0.0-0.7) K/uL Baso # (Auto) 0.1 (0.0-0.2) K/uL Neutrophils % (Manual) 64 (42-75) % Band Neutrophils % 4 H (0-2) % Lymphocytes % (Manual) 10 L (20-50) % Monocytes % (Manual) 20 H (0-10) % Eosinophils % (Manual) 2 (0-7) % Platelet Estimate Normal (NORMAL) Large Platelets Present Hypochromasia (manual) Slight Poikilocytosis (manual Slight Anisocytosis (manual) Slight Target Cells Slight Ovalocytes Slight APTT 64.7 H (25.6-37.1) Seconds pCO2 (35-45) mm/Hg pO2 (80-100) mm/Hg HCO3 (21-28) mmol/L ABG pH (7.35-7.45) ABG Total CO2 (22-28) mmol/L ABG O2 Saturation (95-98) % ABG O2 Content (15-23) ML/dL ABG Base Excess (-2.0-3.0) mmol/L ABG Hemoglobin (11.7-17.4) g/dL ABG Carboxyhemoglobin (0.5-1.5) % POC ABG HHb (Measured) (0.0-5.0) % ABG Methemoglobin (0.0-3.0) % ABG O2 Capacity (16-24) mL/dL Nam Test A-a O2 Difference mm/Hg Hgb O2 Saturation (95.0-98.0) % Vent Mode Mechanical Rate FiO2 % Tidal Volume PEEP Pressure Support Sodium 139 (132-148) mmol/l Potassium 4.0 (3.6-5.0) MMOL/L Chloride 98 (98-107) mmol/L Carbon Dioxide 35 H (22-30) mmol/L Anion Gap 10 (10-20) BUN 22 H (9-20) mg/dl Creatinine 0.9 (0.8-1.5) mg/dl Est GFR ( Amer) > 60 Est GFR (Non-Af Amer) > 60 Random Glucose 120 H (75-110) mg/dL Calcium 8.4 (8.4-10.2) mg/dL Procalcitonin (0.19-0.49) NG/ML 07/16/18 07/15/18 Range/Units 04:48 09:18 WBC (4.8-10.8) K/uL RBC (4.40-5.90) Mil/uL Hgb (12.0-18.0) g/dL Hct (35.0-51.0) % MCV (80.0-94.0) fl MCH (27.0-31.0) pg MCHC (33.0-37.0) g/dL RDW (11.5-14.5) % Plt Count (130-400) K/uL MPV (7.2-11.7) fl Neut % (Auto) (50.0-75.0) % Lymph % (Auto) (20.0-40.0) % [place] % (Auto) (0.0-10.0) % Eos % (Auto) (0.0-4.0) % Baso % (Auto) (0.0-2.0) % Neut # (Auto) (1.8-7.0) K/uL Lymph # (Auto) (1.0-4.3) K/uL [place] # (Auto) (0.0-0.8) K/uL Eos # (Auto) (0.0-0.7) K/uL Baso # (Auto) (0.0-0.2) K/uL Neutrophils % (Manual) (42-75) % Band Neutrophils % (0-2) % Lymphocytes % (Manual) (20-50) % Monocytes % (Manual) (0-10) % Eosinophils % (Manual) (0-7) % Platelet Estimate (NORMAL) Large Platelets Hypochromasia (manual) Poikilocytosis (manual Anisocytosis (manual) Target Cells Ovalocytes APTT (25.6-37.1) Seconds pCO2 62 H (35-45) mm/Hg pO2 97 (80-100) mm/Hg HCO3 34.1 H (21-28) mmol/L ABG pH 7.40 (7.35-7.45) ABG Total CO2 40.3 H (22-28) mmol/L ABG O2 Saturation 99.8 H (95-98) % ABG O2 Content 13.1 L (15-23) ML/dL ABG Base Excess 11.8 H (-2.0-3.0) mmol/L ABG Hemoglobin 9.5 L (11.7-17.4) g/dL ABG Carboxyhemoglobin 1.8 H (0.5-1.5) % POC ABG HHb (Measured) 0.2 (0.0-5.0) % ABG Methemoglobin 1.1 (0.0-3.0) % ABG O2 Capacity 13.1 L (16-24) mL/dL Nam Test Yes A-a O2 Difference 146.0 mm/Hg Hgb O2 Saturation 96.9 (95.0-98.0) % Vent Mode Simv/ps Mechanical Rate 12 FiO2 45.0 % Tidal Volume 450 PEEP 5 Pressure Support 10 Sodium (132-148) mmol/l Potassium (3.6-5.0) MMOL/L Chloride (98-107) mmol/L Carbon Dioxide (22-30) mmol/L Anion Gap (10-20) BUN (9-20) mg/dl Creatinine (0.8-1.5) mg/dl Est GFR ( Amer) Est GFR (Non-Af Amer) Random Glucose (75-110) mg/dL Calcium (8.4-10.2) mg/dL Procalcitonin 0.24 (0.19-0.49) NG/ML Laboratory Results - last 24 hr 07/15/18 07/16/18 07/16/18 09:18 04:48 04:58 WBC 11.6 H RBC 3.09 L Hgb 9.0 L Hct 28.3 L MCV 91.6 MCH 29.0 MCHC 31.7 L RDW 16.8 H Plt Count 200 MPV 9.8 Neut % (Auto) 68.1 Lymph % (Auto) 9.8 L [place] % (Auto) 19.4 H Eos % (Auto) 1.7 Baso % (Auto) 1.0 Neut # (Auto) 7.9 H Lymph # (Auto) 1.1 [place] # (Auto) 2.3 H Eos # (Auto) 0.2 Baso # (Auto) 0.1 Neutrophils % (Manual) 64 Band Neutrophils % 4 H Lymphocytes % (Manual) 10 L Monocytes % (Manual) 20 H Eosinophils % (Manual) 2 Platelet Estimate Normal Large Platelets Present Hypochromasia (manual) Slight Poikilocytosis (manual Slight Anisocytosis (manual) Slight Target Cells Slight Ovalocytes Slight APTT pCO2 62 H pO2 97 HCO3 34.1 H ABG pH 7.40 ABG Total CO2 40.3 H ABG O2 Saturation 99.8 H ABG O2 Content 13.1 L ABG Base Excess 11.8 H ABG Hemoglobin 9.5 L ABG Carboxyhemoglobin 1.8 H POC ABG HHb (Measured) 0.2 ABG Methemoglobin 1.1 ABG O2 Capacity 13.1 L Nam Test Yes A-a O2 Difference 146.0 Hgb O2 Saturation 96.9 Vent Mode Simv/ps Mechanical Rate 12 FiO2 45.0 Tidal Volume 450 PEEP 5 Pressure Support 10 Sodium Potassium Chloride Carbon Dioxide Anion Gap BUN Creatinine Est GFR ( Amer) Est GFR (Non-Af Amer) Random Glucose Calcium Procalcitonin 0.24 07/16/18 07/16/18 04:58 04:58 WBC RBC Hgb Hct MCV MCH MCHC RDW Plt Count MPV Neut % (Auto) Lymph % (Auto) [place] % (Auto) Eos % (Auto) Baso % (Auto) Neut # (Auto) Lymph # (Auto) [place] # (Auto) Eos # (Auto) Baso # (Auto) Neutrophils % (Manual) Band Neutrophils % Lymphocytes % (Manual) Monocytes % (Manual) Eosinophils % (Manual) Platelet Estimate Large Platelets Hypochromasia (manual) Poikilocytosis (manual Anisocytosis (manual) Target Cells Ovalocytes APTT 64.7 H pCO2 pO2 HCO3 ABG pH ABG Total CO2 ABG O2 Saturation ABG O2 Content ABG Base Excess ABG Hemoglobin ABG Carboxyhemoglobin POC ABG HHb (Measured) ABG Methemoglobin ABG O2 Capacity Nam Test A-a O2 Difference Hgb O2 Saturation Vent Mode Mechanical Rate FiO2 Tidal Volume PEEP Pressure Support Sodium 139 Potassium 4.0 Chloride 98 Carbon Dioxide 35 H Anion Gap 10 BUN 22 H Creatinine 0.9 Est GFR ( Amer) > 60 Est GFR (Non-Af Amer) > 60 Random Glucose 120 H Calcium 8.4 Procalcitonin Radiology Impressions: Radiology Impressions Chest X-Ray 07/15/18 06:00 IMPRESSION: Stable position of endotracheal and nasogastric tubes. Persistent haziness in the right lower lobe and left lung which could represent layering effusions or pulmonary edema. Small pleural effusions and persistent mild cardiomegaly. <Pio Kang - Last Filed: 07/16/18 13:32> Assessment/Plan - Assessment and Plan (Free Text) Plan: Attestation: Patient seen and examined at the bedside with Resident Dr. Mariaa Bang; and I agree with her outline of plans and management documented above as discussed on AM rounds; reflecting my review of all applicable clinical data, and participation in the care of the patient throughout the day in ICU; today, July 16, 2018.
[2018-07-16] MEDS: Pantoprazole 40 mg EC Tab PO SCH (09:01)
--- NOTE | 2018-07-16 09:23 | CP.PCM.PN ---
Subjective - Date & Time of Evaluation Date of Evaluation: 07/16/18 Time of Evaluation: 09:20 - Subjective Subjective: Seen on rounds in the ICU. Remains orally intubated, day #8, mechanically ventilated. Awake, anxious, restless. Denies having any pain or increased SOB. His vital signs have remained stable. He is afebrile. Today's chest x-ray does look a little better; less fluid congestion. Procalcitonin noted to be 0.24 yesterday. WBC down to 11.6, Hgb 9GM, platelets 200. PAP 27cm, MAP 12cm, Plateau 22cm. Latest sputum culture still pending. Sweating, room is quite warm with equipment running. Awake, responds appropriately to questions. Follows commands, cooperative with exam. Dependant edema still ++, no cyanosis, extremities warm and pink. Neck is supple and trachea midline. Still has bronchial breath sounds posteriorly on the left. Breath sounds remain very diminished posteriorly on the right. Anteriorly breath sounds are diminished equally in both lungs. There is no dullness on percussion of the anterior chest wall. Heart sounds are distant, mildly tachy. Abdomen is globose, soft, non-tender with good BS. RR decreased to 10BPM, pressure support increased slightly to 12cm. FiO2 remains .45 and SpO2 95% on these settings. Continue diuresis with furosemide and acetazolamide. HCO3 34 this AM. Weaning is progressing slowly, but extubation should be in the near future. May be able to consider withdrawing antibiotics if this last culture is negative. Objective - Vital Signs/Intake and Output Vital Signs (last 24 hours): Temp Pulse Resp BP Pulse Ox 99.3 F 95 H 12 140/75 96 07/16/18 08:00 07/16/18 08:00 07/16/18 08:00 07/16/18 08:59 07/16/18 08:00 Intake and Output: 07/15/18 07/16/18 23:59 11:59 Intake Total 2227 1971 Output Total 1150 700 Balance 1077 1271 - Medications Medications: Current Medications Acetaminophen (Tylenol 650mg/20.3ml Solution Ud) 650 mg NG Q6 PRN PRN Reason: Fever>100.4F Last Admin: 07/12/18 21:01 Dose: 650 mg Albuterol/Ipratropium (Duoneb 3 Mg/0.5 Mg (3 Ml) Ud) 3 ml INH RQ6 [facility] Last Admin: 07/16/18 07:40 Dose: 3 ml Aspirin (Ecotrin) 81 mg PO DAILY [facility] Last Admin: 07/16/18 08:54 Dose: 81 mg Atorvastatin Calcium (Lipitor) 20 mg PO HS [facility] Last Admin: 07/15/18 21:07 Dose: 20 mg Docusate Sodium (Colace) 100 mg PO BID [facility] Last Admin: 07/15/18 16:13 Dose: Not Given Folic Acid (Folic Acid) 1 mg NG DAILY [facility] Last Admin: 07/16/18 08:54 Dose: 1 mg Furosemide (Lasix) 60 mg IVP Q12 [facility] Last Admin: 07/16/18 08:59 Dose: 60 mg Meropenem 1 gm/ Sodium (Chloride) 100 mls @ 100 mls/hr IVPB Q8 [facility]; Protocol Last Admin: 07/16/18 08:59 Dose: 100 mls/hr Heparin Sodium/Dextrose (Heparin 25,000 Units/250ml In D5w) 25,000 units in 250 mls @ 14 mls/hr IV .[id number] [facility]; Protocol Last Admin: 07/15/18 17:34 Dose: 14 mls/hr Lactic Acid (Lac-Hydrin 12% Lotion (225 G)) 1 applic TOP TID [facility] Last Admin: 07/16/18 08:55 Dose: 1 applic Lactulose (Enulose) 10 gm PO DAILY PRN PRN Reason: Constipation Metoprolol Tartrate (Lopressor) 25 mg PO Q12 [facility] Last Admin: 07/09/18 08:38 Dose: 25 mg Nystatin (Nystop Topical Powder) 1 applic TOP TID [facility] Last Admin: 07/16/18 09:01 Dose: 1 applic Ondansetron HCl (Zofran Inj) 4 mg IVP Q6H PRN PRN Reason: Nausea/Vomiting Pantoprazole Sodium (Protonix Ec Tab) 40 mg PO DAILY [facility] Last Admin: 07/16/18 09:01 Dose: 40 mg Pyridostigmine [place] (Mestinon Tab) 30 mg PO TID [facility] Last Admin: 07/16/18 09:00 Dose: 30 mg Sennosides (Senokot Tab) 8.6 mg PO BID [facility] Last Admin: 07/16/18 09:02 Dose: 8.6 mg Thiamine HCl (Vitamin B1 Tab) 100 mg NG DAILY [facility] Last Admin: 07/16/18 09:02 Dose: 100 mg - Labs Labs: 07/16/18 04:58 07/16/18 04:58 PT 12.6 Seconds (9.8-13.1) 07/08/18 00:19 INR 1.1 07/08/18 00:19 APTT 64.7 Seconds (25.6-37.1) H 07/16/18 04:58 Assessment and Plan (1) Respiratory failure with hypoxia and hypercapnia Status: Acute (2) Endotracheally intubated Status: Acute (3) Pleural effusion, left Status: Suspected (4) Dependent edema Status: Chronic (5) COPD (chronic obstructive pulmonary disease) Status: Chronic (6) Pneumonia Status: Acute
--- NOTE | 2018-07-16 10:17 | CP.PCM.PN ---
Subjective - Date & Time of Evaluation Date of Evaluation: 07/16/18 Time of Evaluation: 10:17 - Subjective Subjective: Patient deteriorating rapidly unresponsive acidotic Objective - Vital Signs/Intake and Output Vital Signs (last 24 hours): Temp Pulse Resp BP Pulse Ox 99.3 F 95 H 12 140/75 96 07/16/18 08:00 07/16/18 08:00 07/16/18 08:00 07/16/18 08:59 07/16/18 08:00 Intake and Output: 07/16/18 07/16/18 06:59 18:59 Intake Total 2509 419 Output Total 700 Balance 2509 -281 - Medications Medications: Current Medications Acetaminophen (Tylenol 650mg/20.3ml Solution Ud) 650 mg NG Q6 PRN PRN Reason: Fever>100.4F Last Admin: 07/12/18 21:01 Dose: 650 mg Albuterol/Ipratropium (Duoneb 3 Mg/0.5 Mg (3 Ml) Ud) 3 ml INH RQ6 [facility] Last Admin: 07/16/18 07:40 Dose: 3 ml Aspirin (Ecotrin) 81 mg PO DAILY [facility] Last Admin: 07/16/18 08:54 Dose: 81 mg Atorvastatin Calcium (Lipitor) 20 mg PO HS [facility] Last Admin: 07/15/18 21:07 Dose: 20 mg Docusate Sodium (Colace) 100 mg PO BID [facility] Last Admin: 07/15/18 16:13 Dose: Not Given Folic Acid (Folic Acid) 1 mg NG DAILY [facility] Last Admin: 07/16/18 08:54 Dose: 1 mg Furosemide (Lasix) 60 mg IVP Q12 [facility] Last Admin: 07/16/18 08:59 Dose: 60 mg Meropenem 1 gm/ Sodium (Chloride) 100 mls @ 100 mls/hr IVPB Q8 [facility]; Protocol Last Admin: 07/16/18 08:59 Dose: 100 mls/hr Heparin Sodium/Dextrose (Heparin 25,000 Units/250ml In D5w) 25,000 units in 250 mls @ 14 mls/hr IV .[id number] [facility]; Protocol Last Admin: 07/15/18 17:34 Dose: 14 mls/hr Lactic Acid (Lac-Hydrin 12% Lotion (225 G)) 1 applic TOP TID [facility] Last Admin: 07/16/18 08:55 Dose: 1 applic Lactulose (Enulose) 10 gm PO DAILY PRN PRN Reason: Constipation Metoprolol Tartrate (Lopressor) 25 mg PO Q12 [facility] Last Admin: 07/09/18 08:38 Dose: 25 mg Nystatin (Nystop Topical Powder) 1 applic TOP TID [facility] Last Admin: 07/16/18 09:01 Dose: 1 applic Ondansetron HCl (Zofran Inj) 4 mg IVP Q6H PRN PRN Reason: Nausea/Vomiting Pantoprazole Sodium (Protonix Ec Tab) 40 mg PO DAILY [facility] Last Admin: 07/16/18 09:01 Dose: 40 mg Pyridostigmine [place] (Mestinon Tab) 30 mg PO TID [facility] Last Admin: 07/16/18 09:00 Dose: 30 mg Sennosides (Senokot Tab) 8.6 mg PO BID [facility] Last Admin: 07/16/18 09:02 Dose: 8.6 mg Thiamine HCl (Vitamin B1 Tab) 100 mg NG DAILY [facility] Last Admin: 07/16/18 09:02 Dose: 100 mg - Labs Labs: 07/16/18 04:58 07/16/18 04:58 PT 12.6 Seconds (9.8-13.1) 07/08/18 00:19 INR 1.1 07/08/18 00:19 APTT 64.7 Seconds (25.6-37.1) H 07/16/18 04:58 - Eye Exam Eye Exam: Conjunctival injection - ENT Exam ENT Exam: Mucous Membranes Moist - Cardiovascular Exam Cardiovascular Exam: absent: Gallop, Rubs - GI/Abdominal Exam GI & Abdominal Exam: Soft, Normal Bowel Sounds - Extremities Exam Extremities Exam: absent: Calf Tenderness - Back Exam Back Exam: absent: CVA tenderness (L), CVA tenderness (R) - Neurological Exam Neurological Exam: Altered - Psychiatric Exam Psychiatric exam: Flat Affect - Skin Skin Exam: absent: Cyanosis Assessment and Plan (1) Cellulitis of right lower leg Status: Acute (2) Pneumonia Status: Acute (3) Respiratory failure with hypoxia and hypercapnia Status: Acute (4) Sepsis Status: Acute - Assessment and Plan (Free Text) Assessment: imp: ARF/ recovering Respiratory failure / Anemia / Pnemonia Patient is deteriorating rapidly As per intensive team management Prognosis very poor .DC Diamox
--- NOTE | 2018-07-16 10:50 | CP.PCM.PN ---
Subjective - Date & Time of Evaluation Date of Evaluation: 07/16/18 Time of Evaluation: 09:15 - Subjective Subjective: NO CHEST PAIN BY NODDING Objective - Vital Signs/Intake and Output Vital Signs (last 24 hours): Temp Pulse Resp BP Pulse Ox 99.3 F 95 H 12 140/75 96 07/16/18 08:00 07/16/18 08:00 07/16/18 08:00 07/16/18 08:59 07/16/18 08:00 Intake and Output: 07/16/18 07/16/18 06:59 18:59 Intake Total 2509 419 Output Total 700 Balance 2509 -281 - Medications Medications: Current Medications Acetaminophen (Tylenol 650mg/20.3ml Solution Ud) 650 mg NG Q6 PRN PRN Reason: Fever>100.4F Last Admin: 07/12/18 21:01 Dose: 650 mg Acetazolamide (Diamox 500 Mg Inj) 250 mg IV Q6 [facility] Stop: 07/16/18 22:01 Albuterol/Ipratropium (Duoneb 3 Mg/0.5 Mg (3 Ml) Ud) 3 ml INH RQ6 [facility] Last Admin: 07/16/18 07:40 Dose: 3 ml Aspirin (Ecotrin) 81 mg PO DAILY [facility] Last Admin: 07/16/18 08:54 Dose: 81 mg Atorvastatin Calcium (Lipitor) 20 mg PO HS [facility] Last Admin: 07/15/18 21:07 Dose: 20 mg Docusate Sodium (Colace) 100 mg PO BID [facility] Last Admin: 07/15/18 16:13 Dose: Not Given Folic Acid (Folic Acid) 1 mg NG DAILY [facility] Last Admin: 07/16/18 08:54 Dose: 1 mg Furosemide (Lasix) 60 mg IVP Q12 [facility] Last Admin: 07/16/18 08:59 Dose: 60 mg Meropenem 1 gm/ Sodium (Chloride) 100 mls @ 100 mls/hr IVPB Q8 [facility]; Protocol Last Admin: 07/16/18 08:59 Dose: 100 mls/hr Heparin Sodium/Dextrose (Heparin 25,000 Units/250ml In D5w) 25,000 units in 250 mls @ 14 mls/hr IV .[id number] [facility]; Protocol Last Admin: 07/15/18 17:34 Dose: 14 mls/hr Lactic Acid (Lac-Hydrin 12% Lotion (225 G)) 1 applic TOP TID [facility] Last Admin: 07/16/18 08:55 Dose: 1 applic Lactulose (Enulose) 10 gm PO DAILY PRN PRN Reason: Constipation Metoprolol Tartrate (Lopressor) 25 mg PO Q12 [facility] Last Admin: 07/09/18 08:38 Dose: 25 mg Nystatin (Nystop Topical Powder) 1 applic TOP TID [facility] Last Admin: 07/16/18 09:01 Dose: 1 applic Ondansetron HCl (Zofran Inj) 4 mg IVP Q6H PRN PRN Reason: Nausea/Vomiting Pantoprazole Sodium (Protonix Ec Tab) 40 mg PO DAILY [facility] Last Admin: 07/16/18 09:01 Dose: 40 mg Pyridostigmine [place] (Mestinon Tab) 30 mg PO TID [facility] Last Admin: 07/16/18 09:00 Dose: 30 mg Sennosides (Senokot Tab) 8.6 mg PO BID [facility] Last Admin: 07/16/18 09:02 Dose: 8.6 mg Thiamine HCl (Vitamin B1 Tab) 100 mg NG DAILY [facility] Last Admin: 07/16/18 09:02 Dose: 100 mg - Labs Labs: 07/16/18 04:58 07/16/18 04:58 PT 12.6 Seconds (9.8-13.1) 07/08/18 00:19 INR 1.1 07/08/18 00:19 APTT 64.7 Seconds (25.6-37.1) H 07/16/18 04:58 - Respiratory Exam Respiratory Exam: Decreased Breath Sounds - Cardiovascular Exam Cardiovascular Exam: Tachycardia, Irregular Rhythm, +S1, +S2 - Extremities Exam Extremities Exam: Pedal Edema - Additional Findings 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
--- NOTE | 2018-07-16 11:58 | RAD ---
Date of service: 07/16/2018 HISTORY: Intubation COMPARISON: Comparison chest 07/15/2018 TECHNIQUE: 1 view obtained. FINDINGS: In situ ETT, tip of which lies approximately left parasagittal upper abdomen. In situ ETT, the tip of which is poorly seen no appears to terminate mid tracheal region. LUNGS: Bibasilar patchy bilateral lower lobe infiltrates and suspected small effusions left greater than right. Central pulmonary vasculature is also mildly congested. PLEURA: No significant pleural effusion identified, no pneumothorax apparent. CARDIOVASCULAR: Cardiomegaly. Mild aortic atherosclerotic calcification present OSSEOUS STRUCTURES: No significant abnormalities. VISUALIZED UPPER ABDOMEN: Normal. OTHER FINDINGS: None. IMPRESSION: Mild central pulmonary vascular congestion. Bilateral lower lobe infiltrates and bilateral effusions left greater than right.
--- NOTE | 2018-07-16 12:15 | CP.PCM.PN ---
Subjective - Date & Time of Evaluation Date of Evaluation: 07/16/18 Time of Evaluation: 08:00 - Subjective Subjective: awake alert intubated at bedside encouraged to take deep breaths denies pain and no fever Vanco d/c'd all cultures neg thus far Objective - Vital Signs/Intake and Output Vital Signs (last 24 hours): Temp Pulse Resp BP Pulse Ox 99.3 F 95 H 12 140/75 96 07/16/18 08:00 07/16/18 08:00 07/16/18 08:00 07/16/18 08:59 07/16/18 08:00 Intake and Output: 07/16/18 07/16/18 06:59 18:59 Intake Total 2509 419 Output Total 700 Balance 2509 -281 - Medications Medications: Current Medications Acetaminophen (Tylenol 650mg/20.3ml Solution Ud) 650 mg NG Q6 PRN PRN Reason: Fever>100.4F Last Admin: 07/12/18 21:01 Dose: 650 mg Acetazolamide (Diamox 500 Mg Inj) 250 mg IV Q6 [facility] Stop: 07/16/18 22:01 Albuterol/Ipratropium (Duoneb 3 Mg/0.5 Mg (3 Ml) Ud) 3 ml INH RQ6 [facility] Last Admin: 07/16/18 07:40 Dose: 3 ml Aspirin (Ecotrin) 81 mg PO DAILY [facility] Last Admin: 07/16/18 08:54 Dose: 81 mg Atorvastatin Calcium (Lipitor) 20 mg PO HS [facility] Last Admin: 07/15/18 21:07 Dose: 20 mg Docusate Sodium (Colace) 100 mg PO BID [facility] Last Admin: 07/15/18 16:13 Dose: Not Given Folic Acid (Folic Acid) 1 mg NG DAILY [facility] Last Admin: 07/16/18 08:54 Dose: 1 mg Furosemide (Lasix) 60 mg IVP Q12 [facility] Last Admin: 07/16/18 08:59 Dose: 60 mg Meropenem 1 gm/ Sodium (Chloride) 100 mls @ 100 mls/hr IVPB Q8 [facility]; Protocol Last Admin: 07/16/18 08:59 Dose: 100 mls/hr Heparin Sodium/Dextrose (Heparin 25,000 Units/250ml In D5w) 25,000 units in 250 mls @ 14 mls/hr IV .[id number] [facility]; Protocol Last Admin: 07/15/18 17:34 Dose: 14 mls/hr Lactic Acid (Lac-Hydrin 12% Lotion (225 G)) 1 applic TOP TID [facility] Last Admin: 07/16/18 08:55 Dose: 1 applic Lactulose (Enulose) 10 gm PO DAILY PRN PRN Reason: Constipation Metoprolol Tartrate (Lopressor) 25 mg PO Q12 [facility] Last Admin: 07/09/18 08:38 Dose: 25 mg Nystatin (Nystop Topical Powder) 1 applic TOP TID [facility] Last Admin: 07/16/18 09:01 Dose: 1 applic Ondansetron HCl (Zofran Inj) 4 mg IVP Q6H PRN PRN Reason: Nausea/Vomiting Pantoprazole Sodium (Protonix Ec Tab) 40 mg PO DAILY [facility] Last Admin: 07/16/18 09:01 Dose: 40 mg Pyridostigmine [place] (Mestinon Tab) 30 mg PO TID [facility] Last Admin: 07/16/18 09:00 Dose: 30 mg Sennosides (Senokot Tab) 8.6 mg PO BID [facility] Last Admin: 07/16/18 09:02 Dose: 8.6 mg Thiamine HCl (Vitamin B1 Tab) 100 mg NG DAILY [facility] Last Admin: 07/16/18 09:02 Dose: 100 mg - Labs Labs: 07/16/18 04:58 07/16/18 04:58 PT 12.6 Seconds (9.8-13.1) 07/08/18 00:19 INR 1.1 07/08/18 00:19 APTT 64.7 Seconds (25.6-37.1) H 07/16/18 04:58 - Constitutional Appears: Non-toxic, No Acute Distress, Chronically Ill - Head Exam Head Exam: ATRAUMATIC, NORMAL INSPECTION, NORMOCEPHALIC - Eye Exam Eye Exam: EOMI, Normal appearance, PERRL Pupil Exam: NORMAL ACCOMODATION, PERRL - ENT Exam ENT Exam: Mucous Membranes Moist, Normal Exam - Neck Exam Neck Exam: Full ROM, Normal Inspection. absent: Lymphadenopathy - Respiratory Exam Respiratory Exam: Decreased Breath Sounds, Prolonged Expiratory Phase, Rhonchi. absent: Respiratory Distress - Cardiovascular Exam Cardiovascular Exam: Irregular Rhythm, +S1, +S2. absent: Murmur - GI/Abdominal Exam GI & Abdominal Exam: Distended, Soft, Normal Bowel Sounds. absent: Tenderness - Rectal Exam Rectal Exam: Deferred - Exam Exam: NORMAL INSPECTION - Extremities Exam Extremities Exam: Full ROM, Normal Capillary Refill, Normal Inspection. absent: Joint Swelling, Pedal Edema - Back Exam Back Exam: NORMAL INSPECTION - Neurological Exam Neurological Exam: Alert, Awake, CN II-XII Intact, Normal Gait, Oriented x3 - Psychiatric Exam Psychiatric exam: Normal Affect, Normal Mood - Skin Skin Exam: Dry, Intact, Normal Color, Warm Assessment and Plan (1) Cellulitis of right lower leg Status: Acute (2) Atrial fibrillation Status: Acute (3) CHF (congestive heart failure) Status: Acute (4) Endotracheally intubated Status: Acute (5) Respiratory distress Status: Acute (6) Respiratory failure with hypoxia and hypercapnia Status: Acute (7) Dependent edema Status: Chronic (8) Pleural effusion, left Status: Suspected (9) Pneumonia Status: Acute (10) COPD (chronic obstructive pulmonary disease) Status: Chronic (11) Sepsis Status: Acute - Assessment and Plan (Free Text) Assessment: cont supportive measures with weaning asd tolerated day 8 mech vent Vanco d/c'd repeat sputum c/s sent
[2018-07-16] MEDS: Heparin 25,000units in D5W 25,000 UNITS/250 ML BAG IV SCH (12:28)
--- NOTE | 2018-07-16 18:29 | CP.PCM.PN ---
Subjective - Date & Time of Evaluation Date of Evaluation: 07/16/18 Time of Evaluation: 22:22 - Subjective Subjective: Above noted WBC 11.6 Objective - Vital Signs/Intake and Output Vital Signs (last 24 hours): Temp Pulse Resp BP Pulse Ox 98.9 F 85 26 H 127/76 98 07/16/18 16:00 07/16/18 16:00 07/16/18 16:00 07/16/18 16:00 07/16/18 16:00 Intake and Output: 07/16/18 07/16/18 06:59 18:59 Intake Total 2509 1453 Output Total 1800 Balance 2509 -347 - Medications Medications: Current Medications Acetaminophen (Tylenol 650mg/20.3ml Solution Ud) 650 mg NG Q6 PRN PRN Reason: Fever>100.4F Last Admin: 07/12/18 21:01 Dose: 650 mg Acetazolamide (Diamox 500 Mg Inj) 250 mg IV Q6 [facility] Stop: 07/16/18 22:01 Last Admin: 07/16/18 16:24 Dose: 250 mg Albuterol/Ipratropium (Duoneb 3 Mg/0.5 Mg (3 Ml) Ud) 3 ml INH RQ6 [facility] Last Admin: 07/16/18 13:00 Dose: 3 ml Aspirin (Ecotrin) 81 mg PO DAILY [facility] Last Admin: 07/16/18 08:54 Dose: 81 mg Atorvastatin Calcium (Lipitor) 20 mg PO HS [facility] Last Admin: 07/15/18 21:07 Dose: 20 mg Docusate Sodium (Colace Liquid) 100 mg PO BID [facility] Last Admin: 07/16/18 16:50 Dose: 100 mg Folic Acid (Folic Acid) 1 mg NG DAILY [facility] Last Admin: 07/16/18 08:54 Dose: 1 mg Furosemide (Lasix) 60 mg IVP Q12 [facility] Last Admin: 07/16/18 08:59 Dose: 60 mg Meropenem 1 gm/ Sodium (Chloride) 100 mls @ 100 mls/hr IVPB Q8 [facility]; Protocol Last Admin: 07/16/18 16:29 Dose: 100 mls/hr Heparin Sodium/Dextrose (Heparin 25,000 Units/250ml In D5w) 25,000 units in 250 mls @ 14 mls/hr IV .[id number] [facility]; Protocol Last Admin: 07/16/18 12:28 Dose: 14 mls/hr Lactic Acid (Lac-Hydrin 12% Lotion (225 G)) 1 applic TOP TID [facility] Last Admin: 07/16/18 16:26 Dose: 1 applic Lactulose (Enulose) 10 gm PO DAILY PRN PRN Reason: Constipation Metoprolol Tartrate (Lopressor) 25 mg PO Q12 [facility] Last Admin: 07/09/18 08:38 Dose: 25 mg Nystatin (Nystop Topical Powder) 1 applic TOP TID [facility] Last Admin: 07/16/18 16:29 Dose: 1 applic Ondansetron HCl (Zofran Inj) 4 mg IVP Q6H PRN PRN Reason: Nausea/Vomiting Pantoprazole Sodium (Protonix Ec Tab) 40 mg PO DAILY [facility] Last Admin: 07/16/18 09:01 Dose: 40 mg Pyridostigmine [place] (Mestinon Tab) 30 mg PO TID [facility] Last Admin: 07/16/18 16:29 Dose: 30 mg Sennosides (Senokot Tab) 8.6 mg PO BID [facility] Last Admin: 07/16/18 16:30 Dose: 8.6 mg Thiamine HCl (Vitamin B1 Tab) 100 mg NG DAILY [facility] Last Admin: 07/16/18 09:02 Dose: 100 mg - Labs Labs: 07/16/18 04:58 07/16/18 04:58 PT 12.6 Seconds (9.8-13.1) 07/08/18 00:19 INR 1.1 07/08/18 00:19 APTT 64.7 Seconds (25.6-37.1) H 07/16/18 04:58 - Respiratory Exam Respiratory Exam: NORMAL BREATHING PATTERN - Cardiovascular Exam Cardiovascular Exam: REGULAR RHYTHM - GI/Abdominal Exam GI & Abdominal Exam: Normal Bowel Sounds Assessment and Plan - Assessment and Plan (Free Text) Assessment: Acute Respiratory Failure Multi lobar pneumonia L pleural effusion Hx R Pleural efusion S/P thoracentesis Hx COPD [facility] Smoker ICU Intubated Pulmonary ID Hx CHF Afib S/P TAVR LV fxn good Cardiology anticoagulation Cellulitis RLE ABX Hx ANTHONY/ CKD Lasix Nephrology Chronic ETOH ?? HX Abdominal distention improved Colonic ileus ( recurrent ) + FOBT ?? [place] held etiol ?? 2 to L-S surgery pyridostigmine Hx LLE edema cellulitis ?? ecchymosis?? Endovascular consult ??? CT scan done no significant findings Hx Hyperkalemia 2 to Bactrim?? Hold NAMRATA Hx Hypokalemia Hyperkalemia HTN Prediabetes Hx Low back surgery (Severe Spinal Stenosis) Post operative illeus
[2018-07-17] MEDS: Meropenem 1 GM in Sodium Chloride 0.9% 100 ML IVPB SCH ×2 (00:32→08:30)
[2018-07-17] MEDS: Albuterol-Ipratrop 3 mg / 0.5 (3 ml) UD INH SCH ×4 (00:59→19:00)
[2018-07-17] MEDS: Acetaminophen 650mg/20.3ml solution UD NG PRN (04:05)
[2018-07-17 04:13] LABS: ABG ALLEN TEST YES; ARTERIAL BLOOD GAS HCO3 32.3 mmol/L (21-28); ARTERIAL BLOOD GAS HEMOGLOBIN 9.9 g/dL (11.7-17.4); ARTERIAL BLOOD GAS O2 CAPACITY 13.9 mL/dL (16-24); ARTERIAL BLOOD GAS O2 SAT 100.4 % (95-98); ARTERIAL BLOOD GAS PCO2 77 mm/Hg (35-45); ARTERIAL BLOOD GAS PO2 200 mm/Hg (80-100); ARTERIAL BLOOD GAS TCO2 40.3 mmol/L (22-28)
[2018-07-17] MEDS: Heparin 25,000units in D5W 25,000 UNITS/250 ML BAG IV SCH (04:31)
[2018-07-17 06:03] LABS: BASO # 0.1 K/uL (0.0-0.2); BASO % 0.8 % (0.0-2.0); EOS # 0.1 K/uL (0.0-0.7); EOS % 0.7 % (0.0-4.0); HEMOGLOBIN 9.2 g/dL (12.0-18.0); LYMPH # 0.8 K/uL (1.0-4.3); LYMPH % 5.4 % (20.0-40.0); MEAN CELL VOLUME 93.1 fl (80.0-94.0); MEAN CORPUSCULAR HEMOGLOBIN 28.8 pg (27.0-31.0); MEAN CORPUSCULAR HGB CONC 30.9 g/dL (33.0-37.0); MEAN PLATELET VOLUME 9.7 fl (7.2-11.7); MONO # 2.4 K/uL (0.0-0.8); MONO % 16.5 % (0.0-10.0); NEUT % 76.6 % (50.0-75.0); RBC 3.2 Mil/uL (4.40-5.90); RED CELL DISTRIBUTION WIDTH 16.5 % (11.5-14.5); WHITE BLOOD COUNT 14.4 K/uL (4.8-10.8)
[2018-07-17 06:12] LABS: ABG ALLEN TEST YES; ARTERIAL BLOOD GAS HCO3 34.6 mmol/L (21-28); ARTERIAL BLOOD GAS HEMOGLOBIN 9.8 g/dL (11.7-17.4); ARTERIAL BLOOD GAS O2 CAPACITY 13.4 mL/dL (16-24); ARTERIAL BLOOD GAS O2 CONTENT 13.2 ML/dL (15-23); ARTERIAL BLOOD GAS O2 SAT 98.3 % (95-98); ARTERIAL BLOOD GAS PCO2 58 mm/Hg (35-45); ARTERIAL BLOOD GAS PH 7.43 (7.35-7.45); ARTERIAL BLOOD GAS PO2 71 mm/Hg (80-100); ARTERIAL BLOOD GAS TCO2 40.3 mmol/L (22-28)
[2018-07-17 06:22] LABS: BLOOD UREA NITROGEN 25 mg/dl (9-20); CALCIUM 8.8 mg/dL (8.4-10.2); GFR NON-AFRICAN AMERICAN > 60
--- NOTE | 2018-07-17 06:36 | CP.PCM.PN ---
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 medications reviewed Objective - Vital Signs/Intake and Output Vital Signs (last 24 hours): Temp Pulse Resp BP Pulse Ox 100 F H 95 H 17 103/58 L 98 07/17/18 06:00 07/17/18 06:00 07/17/18 06:00 07/17/18 06:00 07/17/18 06:00 Intake and Output: 07/16/18 07/17/18 18:59 06:59 Intake Total 1453 1057 Output Total 1800 Balance -347 1057 - Medications Medications: Current Medications Acetaminophen (Tylenol 650mg/20.3ml Solution Ud) 650 mg NG Q6 PRN PRN Reason: Fever>100.4F Last Admin: 07/17/18 04:05 Dose: 650 mg Albuterol/Ipratropium (Duoneb 3 Mg/0.5 Mg (3 Ml) Ud) 3 ml INH RQ6 [facility] Last Admin: 07/17/18 00:59 Dose: 3 ml Aspirin (Ecotrin) 81 mg PO DAILY [facility] Last Admin: 07/16/18 08:54 Dose: 81 mg Atorvastatin Calcium (Lipitor) 20 mg PO HS [facility] Last Admin: 07/16/18 21:07 Dose: 20 mg Docusate Sodium (Colace Liquid) 100 mg PO BID [facility] Last Admin: 07/16/18 16:50 Dose: 100 mg Folic Acid (Folic Acid) 1 mg NG DAILY [facility] Last Admin: 07/16/18 08:54 Dose: 1 mg Furosemide (Lasix) 60 mg IVP Q12 [facility] Last Admin: 07/16/18 21:09 Dose: 60 mg Meropenem 1 gm/ Sodium (Chloride) 100 mls @ 100 mls/hr IVPB Q8 [facility]; Protocol Last Admin: 07/17/18 00:32 Dose: 100 mls/hr Heparin Sodium/Dextrose (Heparin 25,000 Units/250ml In D5w) 25,000 units in 250 mls @ 14 mls/hr IV .[id number] [facility]; Protocol Last Admin: 07/17/18 04:31 Dose: 14 mls/hr Lactic Acid (Lac-Hydrin 12% Lotion (225 G)) 1 applic TOP TID [facility] Last Admin: 07/16/18 16:26 Dose: 1 applic Lactulose (Enulose) 10 gm PO DAILY PRN PRN Reason: Constipation Metoprolol Tartrate (Lopressor) 25 mg PO Q12 [facility] Last Admin: 07/09/18 08:38 Dose: 25 mg Nystatin (Nystop Topical Powder) 1 applic TOP TID [facility] Last Admin: 07/16/18 16:29 Dose: 1 applic Ondansetron HCl (Zofran Inj) 4 mg IVP Q6H PRN PRN Reason: Nausea/Vomiting Pantoprazole Sodium (Protonix Inj) 40 mg IVP DAILY [facility] Pyridostigmine [place] (Mestinon Tab) 30 mg PO TID [facility] Last Admin: 07/16/18 16:29 Dose: 30 mg Sennosides (Senokot Tab) 8.6 mg PO BID [facility] Last Admin: 07/16/18 16:30 Dose: 8.6 mg Thiamine HCl (Vitamin B1 Tab) 100 mg NG DAILY [facility] Last Admin: 07/16/18 09:02 Dose: 100 mg - Labs Labs: 07/17/18 04:25 07/17/18 04:25 PT 12.6 Seconds (9.8-13.1) 07/08/18 00:19 INR 1.1 07/08/18 00:19 APTT 65.3 Seconds (25.6-37.1) H 07/17/18 04:25 - Respiratory Exam Respiratory Exam: NORMAL BREATHING PATTERN - Cardiovascular Exam Cardiovascular Exam: REGULAR RHYTHM - GI/Abdominal Exam GI & Abdominal Exam: Normal Bowel Sounds Assessment and Plan - Assessment and Plan (Free Text) Assessment: Acute Respiratory Failure Multi lobar pneumonia L pleural effusion Hx R Pleural efusion S/P thoracentesis Hx COPD [facility] Smoker ICU Intubated Pulmonary ID Hx CHF Afib S/P TAVR LV fxn good Cardiology anticoagulation Cellulitis RLE improved ABX Hx ANTHONY/ CKD Lasix Nephrology Chronic ETOH ?? HX Abdominal distention improved Colonic ileus ( recurrent ) + FOBT ?? [place] held etiol ?? 2 to L-S surgery pyridostigmine Hx LLE edema cellulitis ?? ecchymosis?? Endovascular consult ??? CT scan done no significant findings Hx Hyperkalemia 2 to Bactrim?? Hold NAMRATA Hx Hypokalemia Hyperkalemia HTN Prediabetes Hx Low back surgery (Severe Spinal Stenosis) Post operative illeus
--- NOTE | 2018-07-17 06:36 | PQF ---
PROVIDER RESPONSE TEXT: Pneumonia Sepsis REVIEWER QUERY TEXT: Clarification of Clinical Diagnostic Findings Physician?s Documentation Request This Form is Not a Permanent Document in the Medical Record Pt Name: VALENTIN CABRAL MR #: [id number] Payor: MEDICARE PART A Unit/Bed: H.ICU/CCU-H423-1 Adm Date: 07/08/2018 1:17:00 AM Reviewer: Jennifer Chanel Ext. Query Date: 07/16/2018 11:53:37 AM Clarification of Clinical Diagnostic Findings [id number] By submitting this query, we are merely seeking further clarification of documentation to accurately reflect all conditions that you are monitoring, evaluating, treating or that extend the hospitalizati on or utilize additional resources of care. Please utilize your independent clinical judgment when ad dressing the question(s) below. Dear Doctor Torrey Branch, The patient?s Clinical Indicators include: --- Please clarify if Sepsis is ruled in or ruled out? -OR: Other explanation of clinical findings Pulse:94->99->115->114->115->92->97->98->110->92->99->96->98->102 Respiration:30->19 WBC: 9.8->15.6-> 20.4 left shift H and P: not in [place] as of now 07/08 ID consult includes: consulted for antibiotic management of pneumonia sepsis and respiratory fa ilure with severe cellulitis RLE: Had fever of 102 F this morning, BP low normal with HR in 80-90s. 07/09 ID note includes; ID consulted for antibiotic management of pneumonia sepsis and resp failure wi th severe cellulitis RLE WBC higher despite Vanco/ Cefepime IV antibiotics adjusted Merrem added Cefe pime d/c'd cultures pending 07/11 ID progress note includes: the diagnosis of Sepsis PLEASE DOCUMENT ANY ADDITIONAL DIAGNOSES AND/OR SPECIFICITY IN THE PROGRESS NOTES AND/OR DISCHARGE CABRAL MMARY. Clinically unable to determine/unknown Disagree with the above request Need to discuss Query created by: Jennifer Chanel on 07/16/2018 11:53 AM Electronically signed by: Torrey Branch MD 07/17/2018 6:32 AM
--- NOTE | 2018-07-17 08:20 | RAD ---
Date of service: 07/17/2018 HISTORY: work of breathing worse COMPARISON: Yesterday TECHNIQUE: 1 view obtained. FINDINGS: LUNGS: There is interval increase in alveolar edema and opacification bilaterally. The endotracheal tube is noted to be in the upper trachea approximately 7.9 centimeters from the brian although lordotic projection may affect measurements. No pneumothorax is seen. PLEURA: Bilateral pleural effusions are noted as well as subsegmental atelectasis at the lung bases. CARDIOVASCULAR: There is aortic atherosclerotic calcification present. Heart is enlarged. OSSEOUS STRUCTURES: Unchanged VISUALIZED UPPER ABDOMEN: Normal. OTHER FINDINGS: None. IMPRESSION: Interval increase in alveolar edema bilaterally from the prior examination performed yesterday.
--- NOTE | 2018-07-17 09:07 | CP.CCUPN ---
CCU Subjective - Physician Review Events Since Last Encounter (Free Text): Patient seen and examined at bedside. 07/17/18 09:07 Subjective (Free Text): Patient seen and examined at bedside. Patient on SIMV, overnight pCo2 worsened and patient's vent changed to PRVC and morphine was given. Critical Care Time Spent (in minutes): 45 CCU Objective - Vital Signs / Intake & Output Vital Signs (Last 4 hours): Vital Signs Temp Pulse Resp BP Pulse Ox 07/17/18 08:37 92/59 L 07/17/18 08:00 98.1 F 101 H 18 95/53 L 97 07/17/18 06:53 94 H 18 94/58 L 100 07/17/18 06:46 91 H 17 103/53 L 98 07/17/18 06:00 100 F H 95 H 17 103/58 L 98 07/17/18 05:13 124 H 13 137/74 100 Intake and Output (Last 8hrs): Intake & Output 07/16/18 07/17/18 07/17/18 22:59 06:59 14:59 Intake Total 1077 864 69 Output Total 1100 1000 100 Balance -23 -136 -31 Weight 208 lb Intake: IV 52 334 14 Intake, Piggyback 100 Tube Feeding 825 330 55 Free Water Flush 200 100 Output: Urine 1100 1000 100 Urethral (Simms) 1100 1000 100 Other: # Bowel Movements 1 1 - Physical Exam Head: Positive for: Atraumatic Pupils: Positive for: PERRL Mouth: Positive for: Other (orally intubated) Respiratory/Chest: Positive for: Good Air Exchange, Rhonchi, Other (Rales on B/L lower lung field and left lung). Negative for: Respiratory Distress, Accessory Muscle Use, Wheezes Cardiovascular: Positive for: Irregular Rhythm, Tachycardic Abdomen: Positive for: Distention, Normal Bowel Sounds. Negative for: Tenderness, Peritoneal Signs Upper Extremity: Positive for: Normal Inspection Lower Extremity: Positive for: Edema (2+) Skin: Positive for: Warm, Other (RLE mildly more erythematous then LLE ) Psychiatric: Negative for: Alert - Medications Active Medications: Active Medications Generic Name Dose Route Start Last Admin Trade Name Freq PRN Reason Stop Dose Admin Acetaminophen 650 mg 07/08/18 08:01 07/17/18 04:05 Tylenol 650mg/20.3ml Solution Ud NG 650 mg Q6 PRN Administration Fever>100.4F Albuterol/Ipratropium 3 ml 07/08/18 14:00 07/17/18 07:09 Duoneb 3 Mg/0.5 Mg (3 Ml) Ud INH 3 ml RQ6 LISSA Administration Aspirin 81 mg 07/08/18 09:00 07/17/18 08:30 Ecotrin PO 81 mg DAILY LISSA Administration Atorvastatin Calcium 20 mg 07/08/18 22:00 07/16/18 21:07 Lipitor PO 20 mg HS LISSA Administration Docusate Sodium 100 mg 07/16/18 17:00 07/17/18 08:29 Colace Liquid PO Not Given BID LISSA Folic Acid 1 mg 07/08/18 11:15 07/17/18 08:30 Folic Acid NG 1 mg DAILY LISSA Administration Furosemide 60 mg 07/16/18 09:00 07/17/18 08:37 Lasix IVP 60 mg Q12 LISSA Administration Meropenem 1 gm/ Sodium 100 mls @ 100 mls/hr 07/09/18 11:45 07/17/18 08:30 Chloride IVPB 100 mls/hr Q8 LISSA Administration Protocol Heparin Sodium/Dextrose 25,000 units in 250 mls @ 14 mls/hr 07/14/18 20:15 07/17/18 04:31 Heparin 25,000 Units/250ml In D5w IV 14 mls/hr .[id number] LISSA Administration Protocol Lactic Acid 1 applic 07/08/18 09:00 07/17/18 08:30 Lac-Hydrin 12% Lotion (225 G) TOP 1 applic TID LISSA Administration Lactulose 10 gm 07/08/18 03:46 Enulose PO DAILY PRN Constipation Metoprolol Tartrate 25 mg 07/08/18 09:00 07/09/18 08:38 Lopressor PO 25 mg Q12 LISSA Administration Nystatin 1 applic 07/08/18 13:00 07/17/18 08:32 Nystop Topical Powder TOP 1 applic TID LISSA Administration Ondansetron HCl 4 mg 07/08/18 03:44 Zofran Inj IVP Q6H PRN Nausea/Vomiting Pantoprazole Sodium 40 mg 07/17/18 09:00 07/17/18 08:32 Protonix Inj IVP 40 mg DAILY LISSA Administration Pyridostigmine [place] 30 mg 07/08/18 09:00 07/17/18 08:32 Mestinon Tab PO 30 mg TID LISSA Administration Sennosides 8.6 mg 07/08/18 09:00 07/17/18 08:32 Senokot Tab PO Not Given BID LISSA Thiamine HCl 100 mg 07/08/18 11:15 07/17/18 08:33 Vitamin B1 Tab NG 100 mg DAILY LISSA Administration - Patient Studies Lab Studies: Microbiology Studies 07/14/18 09:47 Gram Stain - Final Trachasp Sputum Culture - Final NORMAL ORAL LISBETH Lab Studies 07/17/18 07/17/18 07/17/18 Range/Units 06:09 04:25 04:25 WBC (4.8-10.8) K/uL RBC (4.40-5.90) Mil/uL Hgb (12.0-18.0) g/dL Hct (35.0-51.0) % MCV (80.0-94.0) fl MCH (27.0-31.0) pg MCHC (33.0-37.0) g/dL RDW (11.5-14.5) % Plt Count (130-400) K/uL MPV (7.2-11.7) fl Neut % (Auto) (50.0-75.0) % Lymph % (Auto) (20.0-40.0) % [place] % (Auto) (0.0-10.0) % Eos % (Auto) (0.0-4.0) % Baso % (Auto) (0.0-2.0) % Neut # (Auto) (1.8-7.0) K/uL Lymph # (Auto) (1.0-4.3) K/uL [place] # (Auto) (0.0-0.8) K/uL Eos # (Auto) (0.0-0.7) K/uL Baso # (Auto) (0.0-0.2) K/uL APTT 65.3 H (25.6-37.1) Seconds pCO2 58 H (35-45) mm/Hg pO2 71 L (80-100) mm/Hg HCO3 34.6 H (21-28) mmol/L ABG pH 7.43 (7.35-7.45) ABG Total CO2 40.3 H (22-28) mmol/L ABG O2 Saturation 98.3 H (95-98) % ABG O2 Content 13.2 L (15-23) ML/dL ABG Base Excess 12.4 H (-2.0-3.0) mmol/L ABG Hemoglobin 9.8 L (11.7-17.4) g/dL ABG Carboxyhemoglobin 2.0 H (0.5-1.5) % POC ABG HHb (Measured) 1.6 (0.0-5.0) % ABG Methemoglobin 1.1 (0.0-3.0) % ABG O2 Capacity 13.4 L (16-24) mL/dL Nam Test Yes A-a O2 Difference 177.0 mm/Hg Hgb O2 Saturation 95.3 (95.0-98.0) % Vent Mode A/c Mechanical Rate 18 FiO2 45.0 % Tidal Volume 450 PEEP 5 Pressure Support Crit Value Called To Crit Value Called By Crit Value Read Back Blood Gas Notified Time Sodium 141 (132-148) mmol/l Potassium 4.0 (3.6-5.0) MMOL/L Chloride 98 (98-107) mmol/L Carbon Dioxide 34 H (22-30) mmol/L Anion Gap 13 (10-20) BUN 25 H (9-20) mg/dl Creatinine 1.0 (0.8-1.5) mg/dl Est GFR ( Amer) > 60 Est GFR (Non-Af Amer) > 60 Random Glucose 149 H (75-110) mg/dL Calcium 8.8 (8.4-10.2) mg/dL 07/17/18 07/17/18 Range/Units 04:25 04:02 WBC 14.4 H (4.8-10.8) K/uL RBC 3.20 L (4.40-5.90) Mil/uL Hgb 9.2 L (12.0-18.0) g/dL Hct 29.8 L (35.0-51.0) % MCV 93.1 (80.0-94.0) fl MCH 28.8 (27.0-31.0) pg MCHC 30.9 L (33.0-37.0) g/dL RDW 16.5 H (11.5-14.5) % Plt Count 234 (130-400) K/uL MPV 9.7 (7.2-11.7) fl Neut % (Auto) 76.6 H (50.0-75.0) % Lymph % (Auto) 5.4 L (20.0-40.0) % [place] % (Auto) 16.5 H (0.0-10.0) % Eos % (Auto) 0.7 (0.0-4.0) % Baso % (Auto) 0.8 (0.0-2.0) % Neut # (Auto) 11.0 H (1.8-7.0) K/uL Lymph # (Auto) 0.8 L (1.0-4.3) K/uL [place] # (Auto) 2.4 H (0.0-0.8) K/uL Eos # (Auto) 0.1 (0.0-0.7) K/uL Baso # (Auto) 0.1 (0.0-0.2) K/uL APTT (25.6-37.1) Seconds pCO2 77 H* (35-45) mm/Hg pO2 200 H (80-100) mm/Hg HCO3 32.3 H (21-28) mmol/L ABG pH 7.30 L (7.35-7.45) ABG Total CO2 40.3 H (22-28) mmol/L ABG O2 Saturation 100.4 H (95-98) % ABG O2 Content 14.0 L (15-23) ML/dL ABG Base Excess 9.4 H (-2.0-3.0) mmol/L ABG Hemoglobin 9.9 L (11.7-17.4) g/dL ABG Carboxyhemoglobin 1.7 H (0.5-1.5) % POC ABG HHb (Measured) -0.4 L (0.0-5.0) % ABG Methemoglobin 1.3 (0.0-3.0) % ABG O2 Capacity 13.9 L (16-24) mL/dL Nam Test Yes A-a O2 Difference 25.0 mm/Hg Hgb O2 Saturation 97.4 (95.0-98.0) % Vent Mode A/c Mechanical Rate 10 FiO2 45.0 % Tidal Volume 450 PEEP 5 Pressure Support 12 Crit Value Called To Subhash gonzalez md Crit Value Called By 333 Crit Value Read Back Y Blood Gas Notified Time 413 Sodium (132-148) mmol/l Potassium (3.6-5.0) MMOL/L Chloride (98-107) mmol/L Carbon Dioxide (22-30) mmol/L Anion Gap (10-20) BUN (9-20) mg/dl Creatinine (0.8-1.5) mg/dl Est GFR ( Amer) Est GFR (Non-Af Amer) Random Glucose (75-110) mg/dL Calcium (8.4-10.2) mg/dL Laboratory Results - last 24 hr 07/17/18 07/17/18 07/17/18 04:02 04:25 04:25 WBC 14.4 H RBC 3.20 L Hgb 9.2 L Hct 29.8 L MCV 93.1 MCH 28.8 MCHC 30.9 L RDW 16.5 H Plt Count 234 MPV 9.7 Neut % (Auto) 76.6 H Lymph % (Auto) 5.4 L [place] % (Auto) 16.5 H Eos % (Auto) 0.7 Baso % (Auto) 0.8 Neut # (Auto) 11.0 H Lymph # (Auto) 0.8 L [place] # (Auto) 2.4 H Eos # (Auto) 0.1 Baso # (Auto) 0.1 APTT pCO2 77 H* pO2 200 H HCO3 32.3 H ABG pH 7.30 L ABG Total CO2 40.3 H ABG O2 Saturation 100.4 H ABG O2 Content 14.0 L ABG Base Excess 9.4 H ABG Hemoglobin 9.9 L ABG Carboxyhemoglobin 1.7 H POC ABG HHb (Measured) -0.4 L ABG Methemoglobin 1.3 ABG O2 Capacity 13.9 L Nam Test Yes A-a O2 Difference 25.0 Hgb O2 Saturation 97.4 Vent Mode A/c Mechanical Rate 10 FiO2 45.0 Tidal Volume 450 PEEP 5 Pressure Support 12 Crit Value Called To Subhash gonzalez md Crit Value Called By 333 Crit Value Read Back Y Blood Gas Notified Time 413 Sodium 141 Potassium 4.0 Chloride 98 Carbon Dioxide 34 H Anion Gap 13 BUN 25 H Creatinine 1.0 Est GFR ( Amer) > 60 Est GFR (Non-Af Amer) > 60 Random Glucose 149 H Calcium 8.8 07/17/18 07/17/18 04:25 06:09 WBC RBC Hgb Hct MCV MCH MCHC RDW Plt Count MPV Neut % (Auto) Lymph % (Auto) [place] % (Auto) Eos % (Auto) Baso % (Auto) Neut # (Auto) Lymph # (Auto) [place] # (Auto) Eos # (Auto) Baso # (Auto) APTT 65.3 H pCO2 58 H pO2 71 L HCO3 34.6 H ABG pH 7.43 ABG Total CO2 40.3 H ABG O2 Saturation 98.3 H ABG O2 Content 13.2 L ABG Base Excess 12.4 H ABG Hemoglobin 9.8 L ABG Carboxyhemoglobin 2.0 H POC ABG HHb (Measured) 1.6 ABG Methemoglobin 1.1 ABG O2 Capacity 13.4 L Nam Test Yes A-a O2 Difference 177.0 Hgb O2 Saturation 95.3 Vent Mode A/c Mechanical Rate 18 FiO2 45.0 Tidal Volume 450 PEEP 5 Pressure Support Crit Value Called To Crit Value Called By Crit Value Read Back Blood Gas Notified Time Sodium Potassium Chloride Carbon Dioxide Anion Gap BUN Creatinine Est GFR ( Amer) Est GFR (Non-Af Amer) Random Glucose Calcium Radiology Impressions: Radiology Impressions Chest X-Ray 07/16/18 06:00 IMPRESSION: Mild central pulmonary vascular congestion. Bilateral lower lobe infiltrates and bilateral effusions left greater than right. Chest X-Ray 07/17/18 03:43 IMPRESSION: Interval increase in alveolar edema bilaterally from the prior examination performed yesterday. 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 and A- fib intubated and has prologed hospital course -Hypoxic and hypercapneic respiratory failure: continuve ventilation to keep spo2 >92, change from SIMV PC to PRVC, failed CPAP RSBI 150, CXR revealed worsening congestion and new RLL infiltrate, copious secretions suctioned -Lobar PNEumonia/VAP: suspect infectious etiology or recurrent aspiration, HOB >45, Ventilator bundle, contineu bronchodilatros and solumedrol, obtai CT chest, contineu empirial abx, consider atypical culture, added doxycycline, consider ID eval/follow up -h/o ?ileus and was placed on pyridostimine, pyridostigmine can cause worseing ofrespiratory symptoms including increased bronchial secretions, consider d/c puridostigmine -continue NG tube -sedation during ventilation aviod using benzo and opioids, consider precedex, (morphine could worsen cosspitation) -A-fib with TAVR: rate controlled contineu AC with heparin -DVT ppx: on heparin GGT PUD ppx:protonix -Patient does not require simms, suspect anticholinergic and cholinergic effect, consider bladder scan q8hrs and straight cath q8hrs -d/w pulmonary, and primary team -continue ventilation and repeat ABG cc time 45 minutes -prognosis guarded - Date & Time Date: 07/17/18 Time: 12:19
[2018-07-17] MEDS ORDERED: Sodium Chloride 3% for Inhalation 4 ML VIAL.NEB IH PRN (09:42)
--- NOTE | 2018-07-17 10:05 | CP.PCM.PN ---
Subjective - Date & Time of Evaluation Date of Evaluation: 07/17/18 Time of Evaluation: 09:59 - Subjective Subjective: Seenon morning rounds in ICU. Today's CXR was reviewed. Interim events reviewed. Discussed with nurse and gas engine mechanic. Had febrile episode overnight associated with tachycardia and increased CO2 retention. Placed back on PRVC/AC with a rate of 18BPM. PAP back up to 30 with MAP 13 and plateau 24. Olivo secretions being suctioned from ETT. Asleep but easily awakened. Dependant edema ++ posterior trunk and UEs. Neck supple, trachea midline. No dullness on percussion anteriorly. Coarse rhonchi heard today mostly in right lower lung hanks. Posteriorly the breath sounds remain very much diminished. No audible wheezes appreciated. Suctioned again by nursing with return of grossly purulent, light brown, thick secretions in moderate amount. Specimen to lab for repeat culture. CT chest has been requested for today. Family at bedside, will discuss flexible bronchoscopy with them. Objective - Vital Signs/Intake and Output Vital Signs (last 24 hours): Temp Pulse Resp BP Pulse Ox 98.1 F 101 H 18 92/59 L 97 07/17/18 08:00 07/17/18 08:00 07/17/18 08:00 07/17/18 08:37 07/17/18 08:00 Intake and Output: 07/16/18 07/17/18 23:59 11:59 Intake Total 1077 933 Output Total 1100 1100 Balance -23 -167 - Medications Medications: Current Medications Acetaminophen (Tylenol 650mg/20.3ml Solution Ud) 650 mg NG Q6 PRN PRN Reason: Fever>100.4F Last Admin: 07/17/18 04:05 Dose: 650 mg Albuterol/Ipratropium (Duoneb 3 Mg/0.5 Mg (3 Ml) Ud) 3 ml INH RQ6 LISSA Last Admin: 07/17/18 07:09 Dose: 3 ml Aspirin (Ecotrin) 81 mg PO DAILY LISSA Last Admin: 07/17/18 08:30 Dose: 81 mg Atorvastatin Calcium (Lipitor) 20 mg PO HS LISSA Last Admin: 07/16/18 21:07 Dose: 20 mg Docusate Sodium (Colace Liquid) 100 mg PO BID LISSA Last Admin: 07/17/18 08:29 Dose: Not Given Folic Acid (Folic Acid) 1 mg NG DAILY [facility] Last Admin: 07/17/18 08:30 Dose: 1 mg Furosemide (Lasix) 60 mg IVP Q12 [facility] Last Admin: 07/17/18 08:37 Dose: 60 mg Meropenem 1 gm/ Sodium (Chloride) 100 mls @ 100 mls/hr IVPB Q8 [facility]; Protocol Last Admin: 07/17/18 08:30 Dose: 100 mls/hr Heparin Sodium/Dextrose (Heparin 25,000 Units/250ml In D5w) 25,000 units in 250 mls @ 14 mls/hr IV .[id number] [facility]; Protocol Last Admin: 07/17/18 04:31 Dose: 14 mls/hr Doxycycline Hyclate 100 mg/ (Sodium Chloride) 100 mls @ 100 mls/hr IVPB Q12 [facility]; Protocol Dexmedetomidine HCl 400 mcg/ (Sodium Chloride) 100 mls @ 4.72 mls/hr IV .[id number] [facility]; Protocol Stop: 07/18/18 06:56 Lactic Acid (Lac-Hydrin 12% Lotion (225 G)) 1 applic TOP TID [facility] Last Admin: 07/17/18 08:30 Dose: 1 applic Lactulose (Enulose) 10 gm PO DAILY PRN PRN Reason: Constipation Metolazone (Zaroxolyn) 2.5 mg PO BID [facility] Stop: 07/19/18 09:16 Metoprolol Tartrate (Lopressor) 25 mg PO Q12 [facility] Last Admin: 07/09/18 08:38 Dose: 25 mg Nystatin (Nystop Topical Powder) 1 applic TOP TID [facility] Last Admin: 07/17/18 08:32 Dose: 1 applic Ondansetron HCl (Zofran Inj) 4 mg IVP Q6H PRN PRN Reason: Nausea/Vomiting Pantoprazole Sodium (Protonix Inj) 40 mg IVP DAILY [facility] Last Admin: 07/17/18 08:32 Dose: 40 mg Pyridostigmine [place] (Mestinon Tab) 30 mg PO TID [facility] Last Admin: 07/17/18 08:32 Dose: 30 mg Sennosides (Senokot Tab) 8.6 mg PO BID [facility] Last Admin: 07/17/18 08:32 Dose: Not Given Thiamine HCl (Vitamin B1 Tab) 100 mg NG DAILY [facility] Last Admin: 07/17/18 08:33 Dose: 100 mg - Labs Labs: 07/17/18 04:25 07/17/18 04:25 PT 12.6 Seconds (9.8-13.1) 07/08/18 00:19 INR 1.1 07/08/18 00:19 APTT 65.3 Seconds (25.6-37.1) H 07/17/18 04:25 Assessment and Plan (1) Respiratory failure with hypoxia and hypercapnia Status: Acute (2) Endotracheally intubated Status: Acute (3) Pleural effusion, left Status: Suspected (4) Dependent edema Status: Chronic (5) COPD (chronic obstructive pulmonary disease) Status: Chronic (6) Pneumonia Status: Acute
[2018-07-17] MEDS: Dexmedetomidine Hydrochloride 400 MCG in Sodium Chloride 0.9% 96 ML IV ONE ×2 (10:32→18:32)
[2018-07-17] MEDS ORDERED: Chlorhexidine Gluconate 1 APPL/PKT TP ONE (10:44)
[2018-07-17] MEDS ORDERED: Lidocaine 1% Inj (20ml) ONE (10:44)
--- NOTE | 2018-07-17 11:18 | PCM.OP ---
Operative Report - Operative Report Date of Surgery/Procedure: 07/17/18 Time of Surgery/Procedure: 11:00 Surgeon: Bunny Dickens MD Anesthesia/Sedation: precedex Pre-Operative Diagnosis: RLL infiltrate Post-Operative Diagnosis: S/A Early airways closure bronchus intermedius Indication for Surgery: assess patency of airways Operative Findings: Patent airways, small volume mucopurulent secretions, early aiways closure right bronchus intermedius. No endobronchial lesion seen. All segments are patent. Procedure/Operation Description: An Ambu4 disposable slim bronchoscope was passed into the airways through the endotracheal tube already in place. A swivel adaptor was used to access the airway and allow mechanical ventilation to continue without interruption. The scope was passed into the trachea with visualization of the brian which appeared normal. The scope was then passed into the right main bronchus and advanced through the bronchus intermedius with visualization of all major divisions. All segmental orifices were patent w/o any endobronchial lesions or obstructions seen. Secretions were small in volume and mucopurulent in nature. Early airways closure was identified in the bronchus intermedius. The scope was then withdrawn to the level of the brian and advanced in to the left main bronchus. A small volume of similar secretions were seen on the left, but again all segments were patent and no endobronchial lesions were identified. At this time the scope was withdrawn from the endotracheal tube and the procedure terminated. No specimens were collected during this procedure. The patient was continued on the same ventilator settings. Estimated Blood Loss: none Blood Replaced: none Sponge/Instrument Count: n/a Drains: n/a Complications: none Specimen: none Discharge & Condition: Continued on mechanical ventilation.
[2018-07-17] MEDS: metOLazone 2.5 MG TAB PO SCH ×2 (12:13→16:53)
--- NOTE | 2018-07-17 12:44 | CP.PCM.PN ---
Subjective - Date & Time of Evaluation Date of Evaluation: 07/17/18 Time of Evaluation: 07:00 - Subjective Subjective: events noted fever and worsening infiltrates on CXR s/p bronchoscopy this am sedated on vent Objective - Vital Signs/Intake and Output Vital Signs (last 24 hours): Temp Pulse Resp BP Pulse Ox 99 F 94 H 18 138/76 94 L 07/17/18 12:13 07/17/18 12:13 07/17/18 12:13 07/17/18 12:13 07/17/18 10:00 Intake and Output: 07/17/18 07/17/18 06:59 18:59 Intake Total 1157 617 Output Total 1000 575 Balance 157 42 - Medications Medications: Current Medications Acetaminophen (Tylenol 650mg/20.3ml Solution Ud) 650 mg NG Q6 PRN PRN Reason: Fever>100.4F Last Admin: 07/17/18 04:05 Dose: 650 mg Albuterol/Ipratropium (Duoneb 3 Mg/0.5 Mg (3 Ml) Ud) 3 ml INH RQ6 [facility] Last Admin: 07/17/18 07:09 Dose: 3 ml Aspirin (Ecotrin) 81 mg PO DAILY [facility] Last Admin: 07/17/18 08:30 Dose: 81 mg Atorvastatin Calcium (Lipitor) 20 mg PO HS [facility]SA Last Admin: 07/16/18 21:07 Dose: 20 mg Docusate Sodium (Colace Liquid) 100 mg PO BID [facility] Last Admin: 07/17/18 08:29 Dose: Not Given Folic Acid (Folic Acid) 1 mg NG DAILY [facility] Last Admin: 07/17/18 08:30 Dose: 1 mg Furosemide (Lasix) 60 mg IVP Q12 [facility] Last Admin: 07/17/18 08:37 Dose: 60 mg Meropenem 1 gm/ Sodium (Chloride) 100 mls @ 100 mls/hr IVPB Q8 [facility]; Protocol Last Admin: 07/17/18 08:30 Dose: 100 mls/hr Doxycycline Hyclate 100 mg/ (Sodium Chloride) 100 mls @ 100 mls/hr IVPB Q12 [facility]; Protocol Last Admin: 07/17/18 11:06 Dose: 100 mls/hr Dexmedetomidine HCl 400 mcg/ (Sodium Chloride) 100 mls @ 4.72 mls/hr IV .Q21H 12M [facility]; Protocol Stop: 07/18/18 06:56 Last Titration: 07/17/18 11:48 Dose: 0.4 mcg/kg/hr, 9.43 mls/hr Lactic Acid (Lac-Hydrin 12% Lotion (225 G)) 1 applic TOP TID [facility] Last Admin: 07/17/18 12:12 Dose: 1 applic Lactulose (Enulose) 10 gm PO DAILY PRN PRN Reason: Constipation Metolazone (Zaroxolyn) 2.5 mg PO BID [facility] Stop: 07/19/18 09:16 Last Admin: 07/17/18 12:13 Dose: 2.5 mg Nystatin (Nystop Topical Powder) 1 applic TOP TID [facility] Last Admin: 07/17/18 12:13 Dose: 1 applic Ondansetron HCl (Zofran Inj) 4 mg IVP Q6H PRN PRN Reason: Nausea/Vomiting Pantoprazole Sodium (Protonix Inj) 40 mg IVP DAILY [facility] Last Admin: 07/17/18 08:32 Dose: 40 mg Pyridostigmine [place] (Mestinon Tab) 30 mg PO TID [facility] Last Admin: 07/17/18 12:12 Dose: 30 mg Sennosides (Senokot Tab) 8.6 mg PO BID [facility] Last Admin: 07/17/18 08:32 Dose: Not Given Thiamine HCl (Vitamin B1 Tab) 100 mg NG DAILY [facility] Last Admin: 07/17/18 08:33 Dose: 100 mg - Labs Labs: 07/17/18 04:25 07/17/18 04:25 PT 12.6 Seconds (9.8-13.1) 07/08/18 00:19 INR 1.1 07/08/18 00:19 APTT 65.3 Seconds (25.6-37.1) H 07/17/18 04:25 - Constitutional Appears: Confused, Chronically Ill - Head Exam Head Exam: ATRAUMATIC, NORMAL INSPECTION, NORMOCEPHALIC - Eye Exam Eye Exam: EOMI, Normal appearance, PERRL Pupil Exam: NORMAL ACCOMODATION, PERRL - ENT Exam ENT Exam: Mucous Membranes Moist, Normal Exam - Neck Exam Neck Exam: Full ROM, Normal Inspection. absent: Lymphadenopathy - Respiratory Exam Respiratory Exam: Clear to Ausculation Bilateral, NORMAL BREATHING PATTERN - Cardiovascular Exam Cardiovascular Exam: Tachycardia, Irregular Rhythm, +S1, +S2. absent: Murmur - GI/Abdominal Exam GI & Abdominal Exam: Distended, Soft, Diminished Bowel Sounds. absent: Tenderness - Rectal Exam Rectal Exam: Deferred - Exam Exam: NORMAL INSPECTION - Extremities Exam Extremities Exam: Full ROM, Normal Capillary Refill, Normal Inspection. absent: Joint Swelling, Pedal Edema - Back Exam Back Exam: NORMAL INSPECTION - Neurological Exam Neurological Exam: Altered, CN II-XII Intact. absent: Alert, Awake, Normal Gait, Oriented x3 - Psychiatric Exam Psychiatric exam: Depressed - Skin Skin Exam: Dry, Intact, Normal Color, Warm Assessment and Plan (1) Cellulitis of right lower leg Status: Acute (2) Atrial fibrillation Status: Acute (3) CHF (congestive heart failure) Status: Acute (4) Endotracheally intubated Status: Acute (5) Respiratory distress Status: Acute (6) Respiratory failure with hypoxia and hypercapnia Status: Acute (7) Dependent edema Status: Chronic (8) Pleural effusion, left Status: Suspected (9) Pneumonia Status: Acute (10) COPD (chronic obstructive pulmonary disease) Status: Chronic (11) Sepsis Status: Acute - Assessment and Plan (Free Text) Assessment: worsening CHF / COPD and pneumonia r/o sepsis recultured IV rx adjusted poor prognosis may need Trach/PEG
--- NOTE | 2018-07-17 13:14 | CP.PCM.PN ---
Subjective - Date & Time of Evaluation Date of Evaluation: 07/17/18 Time of Evaluation: 10:00 - Subjective Subjective: RENAL Follow Up Note Sub: unable to obtain. pt intubated/sedated o/e: vss, obese male, orally intubated sclera: anicteric neck: supple no thyromegaly lungs: b/l air entry reduced at bases cv: +S1+s2 no rub abd: + distension +bs no organomegaly ext: no edema neuro: sedated psych: unable skin: No rash no ulcer labs and imaging reviewed Assessment: critical acute hypercapnic respi failure PNA, CHF exacerbation ANTHONY improved HTN, COPD CHF s/p TAVR Obesity plan: renal function stable bp stable mostly continue with lasix. will add metolazone 2.5 mg bid for 2 days. Hopefully will be tolerated by BP supplement lytes as needed Dose meds/antibiotics for GFR >60. Glycemic control Further work up/management as per primary team Thanks for allowing me to participate in care of your patient. Will follow patient with you. Please call if any Qs. had d/w team Dr Jose R Ferrera Office: [phone] Objective - Vital Signs/Intake and Output Vital Signs (last 24 hours): Temp Pulse Resp BP Pulse Ox 99 F 76 18 94/53 L 98 07/17/18 12:13 07/17/18 12:58 07/17/18 12:58 07/17/18 12:58 07/17/18 12:58 Intake and Output: 07/17/18 07/17/18 06:59 18:59 Intake Total 1157 617 Output Total 1000 575 Balance 157 42 - Medications Medications: Current Medications Acetaminophen (Tylenol 650mg/20.3ml Solution Ud) 650 mg NG Q6 PRN PRN Reason: Fever>100.4F Last Admin: 07/17/18 04:05 Dose: 650 mg Albuterol/Ipratropium (Duoneb 3 Mg/0.5 Mg (3 Ml) Ud) 3 ml INH RQ6 [facility] Last Admin: 07/17/18 07:09 Dose: 3 ml Aspirin (Ecotrin) 81 mg PO DAILY [facility] Last Admin: 07/17/18 08:30 Dose: 81 mg Atorvastatin Calcium (Lipitor) 20 mg PO HS [facility] Last Admin: 07/16/18 21:07 Dose: 20 mg Docusate Sodium (Colace Liquid) 100 mg PO BID [facility] Last Admin: 07/17/18 08:29 Dose: Not Given Folic Acid (Folic Acid) 1 mg NG DAILY [facility] Last Admin: 07/17/18 08:30 Dose: 1 mg Furosemide (Lasix) 60 mg IVP Q12 [facility] Last Admin: 07/17/18 08:37 Dose: 60 mg Doxycycline Hyclate 100 mg/ (Sodium Chloride) 100 mls @ 100 mls/hr IVPB Q12 [facility]; Protocol Last Admin: 07/17/18 11:06 Dose: 100 mls/hr Dexmedetomidine HCl 400 mcg/ (Sodium Chloride) 100 mls @ 4.72 mls/hr IV .[id number]; Protocol Stop: 07/18/18 06:56 Last Titration: 07/17/18 12:51 Dose: 0.5 mcg/kg/hr, 11.79 mls/hr Vancomycin HCl 750 mg/ Sodium (Chloride) 250 mls @ 166.667 mls/hr IVPB Q12H [facility]; Protocol Lactic Acid (Lac-Hydrin 12% Lotion (225 G)) 1 applic TOP TID [facility] Last Admin: 07/17/18 12:12 Dose: 1 applic Lactulose (Enulose) 10 gm PO DAILY PRN PRN Reason: Constipation Metolazone (Zaroxolyn) 2.5 mg PO BID [facility] Stop: 07/19/18 09:16 Last Admin: 07/17/18 12:13 Dose: 2.5 mg Nystatin (Nystop Topical Powder) 1 applic TOP TID [facility] Last Admin: 07/17/18 12:13 Dose: 1 applic Ondansetron HCl (Zofran Inj) 4 mg IVP Q6H PRN PRN Reason: Nausea/Vomiting Pantoprazole Sodium (Protonix Inj) 40 mg IVP DAILY [facility] Last Admin: 07/17/18 08:32 Dose: 40 mg Pyridostigmine [place] (Mestinon Tab) 30 mg PO TID [facility] Last Admin: 07/17/18 12:12 Dose: 30 mg Sennosides (Senokot Tab) 8.6 mg PO BID [facility] Last Admin: 07/17/18 08:32 Dose: Not Given Thiamine HCl (Vitamin B1 Tab) 100 mg NG DAILY [facility] Last Admin: 07/17/18 08:33 Dose: 100 mg - Labs Labs: 07/17/18 04:25 07/17/18 04:25 PT 12.6 Seconds (9.8-13.1) 07/08/18 00:19 INR 1.1 07/08/18 00:19 APTT 65.3 Seconds (25.6-37.1) H 07/17/18 04:25
--- NOTE | 2018-07-17 15:10 | CT ---
Date of service: 07/17/2018 PROCEDURE: CT Chest without contrast HISTORY: eval effusion COMPARISON: Chest x-ray today TECHNIQUE: Contiguous axial images were obtained through the chest without intravenous contrast enhancement. Sagittal and coronal reconstructions were performed. Radiation dose: Total exam DLP = 610.08 mGy-cm. This CT exam was performed using one or more of the following dose reduction techniques: Automated exposure control, adjustment of the mA and/or kV according to patient size, and/or use of iterative reconstruction technique. FINDINGS: LUNGS: Endotracheal tube is appreciated in the mid trachea. NG tube is identified with its tip just above the GE junction. This should be advanced as clinically indicated. There is evidence of the large bilateral areas of pleural fluid and associated moderate compressive atelectasis. Lack of contrast limits evaluation, however some portions of the fluid may be slightly higher density posteriorly. Portions of this fluid therefore may be slightly loculated although no air is seen in the fluid to suggest gas-forming organism. There is mild areas of patchy interstitial or alveolar change elsewhere in the aerated portions of the lungs, greater on the left. No pneumothorax is seen. MEDIASTINUM: There appears to be evidence of aortic valve replacement. No significant aneurysmal dilatation is seen. Mild to moderate atherosclerotic change is seen elsewhere. Heart is not significantly enlarged. Minimal pericardial thickening is noted. Pulmonary arteries are suboptimally evaluated without contrast but appear normal in size. Small scattered shotty mediastinal lymph nodes are identified. Thoracic inlet is unremarkable. No axillary adenopathy is seen. Mild heterogeneity of the thyroid gland is seen. PLEURA: Please see above. BONES: No fracture. No destructive lesion. Moderate degenerative changes of the spine are seen. UPPER ABDOMEN: Grossly unremarkable. OTHER FINDINGS: None. IMPRESSION: Moderate to large bilateral pleural effusions with areas of moderate associated compressive atelectasis. Mild interstitial change and edema in the upper lung hanks. Sampling of the fluid may prove helpful as clinically indicated.
[2018-07-17] MEDS ORDERED: Heparin 25,000units in D5W 25,000 UNITS/250 ML BAG IV SCH (23:00)
[2018-07-18] MEDS: Albuterol-Ipratrop 3 mg / 0.5 (3 ml) UD INH SCH ×4 (01:07→19:06)
[2018-07-18 05:05] LABS: ABG ALLEN TEST YES; ARTERIAL BLOOD GAS O2 SAT 97.9 % (95-98); ARTERIAL BLOOD GAS PCO2 49 mm/Hg (35-45); ARTERIAL BLOOD GAS PO2 68 mm/Hg (80-100); ARTERIAL BLOOD GAS TCO2 39.7 mmol/L (22-28)
[2018-07-18 06:37] LABS: BASO # 0.1 K/uL (0.0-0.2); BASO % 0.9 % (0.0-2.0); EOS # 0.1 K/uL (0.0-0.7); EOS % 1.2 % (0.0-4.0); HEMOGLOBIN 9.4 g/dL (12.0-18.0); LYMPH # 1.4 K/uL (1.0-4.3); LYMPH % 12.8 % (20.0-40.0); MEAN CELL VOLUME 90.3 fl (80.0-94.0); MEAN CORPUSCULAR HEMOGLOBIN 29.2 pg (27.0-31.0); MEAN CORPUSCULAR HGB CONC 32.4 g/dL (33.0-37.0); MEAN PLATELET VOLUME 9.1 fl (7.2-11.7); MONO # 1.7 K/uL (0.0-0.8); MONO % 15.2 % (0.0-10.0); NEUT # 7.7 K/uL (1.8-7.0); NEUT % 69.9 % (50.0-75.0); NRBC % 0.1 % (0.0-0.0); RBC 3.2 Mil/uL (4.40-5.90); RED CELL DISTRIBUTION WIDTH 16.7 % (11.5-14.5)
[2018-07-18 06:51] LABS: ALBUMIN 3.3 g/dL (3.5-5.0); ALT/SGPT 36 U/L (21-72); AST/SGOT 34 U/L (17-59); BLOOD UREA NITROGEN 29 mg/dl (9-20); CALCIUM 8.9 mg/dL (8.4-10.2); GFR NON-AFRICAN AMERICAN > 60
[2018-07-18] MEDS: metOLazone 2.5 MG TAB PO SCH (08:21)
--- NOTE | 2018-07-18 08:30 | RAD ---
Date of service: 07/18/2018 PROCEDURE: CHEST RADIOGRAPH, 1 VIEW HISTORY: et tube COMPARISON: Yesterday FINDINGS: LUNGS: Endotracheal tube and NG tube are unchanged in appearance. Lungs are otherwise grossly unchanged in appearance. No new infiltrate is seen. PLEURA: Stable pleural effusions and atelectasis at the lung bases. No pneumothorax. CARDIOVASCULAR: Stable mild aortic atherosclerotic calcification present. Pulmonary vasculature is unchanged. OSSEOUS STRUCTURES: No interval change. VISUALIZED UPPER ABDOMEN: No interval change. OTHER FINDINGS: None. IMPRESSION: Grossly stable appearance of the lung hanks.
[2018-07-18] MEDS ORDERED: metOLazone 2.5 MG TAB PO ONE (10:15)
--- NOTE | 2018-07-18 10:29 | CP.CCUPN ---
CCU Subjective - Physician Review Subjective (Free Text): NO acute events overnight, FiO 50% 07/18/18 10:22 Critical Care Time Spent (in minutes): 35 CCU Objective - Vital Signs / Intake & Output Vital Signs (Last 4 hours): Vital Signs Temp Pulse Resp BP Pulse Ox 07/18/18 10:00 67 18 122/69 99 07/18/18 09:00 79 18 118/74 99 07/18/18 08:24 123/67 07/18/18 08:00 87 18 123/67 96 07/18/18 07:00 97.6 F 79 19 115/60 97 Intake and Output (Last 8hrs): Intake & Output 07/17/18 07/18/18 07/18/18 22:59 06:59 14:59 Intake Total 744 794 465 Output Total 210 450 Balance 534 794 15 Intake: IV 140 114 100 Intake, Piggyback 119 250 100 Tube Feeding 385 330 165 Free Water Flush 100 100 100 Output: Urine 210 450 Urethral (Simms) 210 450 - Physical Exam Head: Positive for: Atraumatic Pupils: Positive for: PERRL Mouth: Positive for: Other (orally intubated) Respiratory/Chest: Positive for: Good Air Exchange, Rhonchi, Other (Rales on B/L lower lung field and left lung). Negative for: Respiratory Distress, Accessory Muscle Use, Wheezes Cardiovascular: Positive for: Irregular Rhythm, Tachycardic Abdomen: Positive for: Distention, Normal Bowel Sounds. Negative for: Tenderness, Peritoneal Signs Upper Extremity: Positive for: Normal Inspection Lower Extremity: Positive for: Edema (2+) Skin: Positive for: Warm, Other (RLE mildly more erythematous then LLE ) Psychiatric: Negative for: Alert - Medications Active Medications: Active Medications Generic Name Dose Route Start Last Admin Trade Name Freq PRN Reason Stop Dose Admin Acetaminophen 650 mg 07/08/18 08:01 07/17/18 04:05 Tylenol 650mg/20.3ml Solution Ud NG 650 mg Q6 PRN Administration Fever>100.4F Albuterol/Ipratropium 3 ml 07/08/18 14:00 07/18/18 07:10 Duoneb 3 Mg/0.5 Mg (3 Ml) Ud INH 3 ml RQ6 [facility] Administration Aspirin 81 mg 07/08/18 09:00 07/18/18 08:16 Ecotrin PO 81 mg DAILY [facility] Administration Atorvastatin Calcium 20 mg 07/08/18 22:00 07/17/18 21:39 Lipitor PO 20 mg HS [facility] Administration Docusate Sodium 100 mg 07/16/18 17:00 07/18/18 08:15 Colace Liquid PO Not Given BID [facility] Folic Acid 1 mg 07/08/18 11:15 07/18/18 08:16 Folic Acid NG 1 mg DAILY [facility] Administration Furosemide 60 mg 07/18/18 13:00 Lasix IVP 07/21/18 13:01 TID [facility] Doxycycline Hyclate 100 mg/ 100 mls @ 100 mls/hr 07/17/18 09:45 07/18/18 0 8:19 Sodium Chloride IVPB 100 mls/hr Q12 [facility] Administration Protocol Vancomycin HCl 750 mg/ Sodium 250 mls @ 166.667 mls/hr 07/17/18 13:00 07/18/18 01:05 Chloride IVPB 166.667 mls/hr Q12H [facility] Administration Protocol Heparin Sodium/Dextrose 25,000 units in 250 mls @ 14 mls/hr 07/17/18 23:00 07/18/18 07:32 Heparin 25,000 Units/250ml In D5w IV 12 mls/hr .[id number] [facility] Titration Protocol Potassium Chloride 100 mls @ 100 mls/hr 07/18/18 11:00 Potassium Chloride 10 Meq/100 Ml IVPB 07/18/18 12:59 Q1 [facility] Lactic Acid 1 applic 07/08/18 09:00 07/18/18 08:16 Lac-Hydrin 12% Lotion (225 G) TOP 1 applic TID [facility] Administration Lactulose 10 gm 07/08/18 03:46 Enulose PO DAILY PRN Constipation Metolazone 5 mg 07/18/18 17:00 Zaroxolyn PO 07/20/18 17:01 BID [facility] Nystatin 1 applic 07/08/18 13:00 07/18/18 08:17 Nystop Topical Powder TOP 1 applic TID [facility] Administration Ondansetron HCl 4 mg 07/08/18 03:44 Zofran Inj IVP Q6H PRN Nausea/Vomiting Pantoprazole Sodium 40 mg 07/17/18 09:00 07/18/18 08:17 Protonix Inj IVP 40 mg DAILY [facility] Administration Potassium Chloride 20 meq 07/18/18 17:00 Potassium Chloride Oral Soln NG 07/21/18 17:01 BID [facility] Potassium Chloride 40 meq 07/18/18 10:30 Potassium Chloride Oral Soln NG 07/18/18 10:31 ONCE ONE Potassium Chloride 40 meq 07/18/18 10:30 Potassium Chloride Oral Soln PO 07/19/18 02:31 Q8H [facility] Pyridostigmine [place] 30 mg 07/08/18 09:00 07/18/18 08:17 Mestinon Tab PO 30 mg TID [facility] Administration Sennosides 8.6 mg 07/08/18 09:00 07/18/18 08:17 Senokot Tab PO Not Given BID [facility] Thiamine HCl 100 mg 07/08/18 11:15 07/18/18 08:20 Vitamin B1 Tab NG 100 mg DAILY [facility] Administration - Patient Studies Lab Studies: Microbiology Studies 07/17/18 13:00 Gram Stain - Final Trachasp Lab Studies 07/18/18 07/18/18 07/18/18 Range/Units 04:50 04:30 04:30 WBC (4.8-10.8) K/uL RBC (4.40-5.90) Mil/uL Hgb (12.0-18.0) g/dL Hct (35.0-51.0) % MCV (80.0-94.0) fl MCH (27.0-31.0) pg MCHC (33.0-37.0) g/dL RDW (11.5-14.5) % Plt Count (130-400) K/uL MPV (7.2-11.7) fl Neut % (Auto) (50.0-75.0) % Lymph % (Auto) (20.0-40.0) % [place] % (Auto) (0.0-10.0) % Eos % (Auto) (0.0-4.0) % Baso % (Auto) (0.0-2.0) % Neut # (Auto) (1.8-7.0) K/uL Lymph # (Auto) (1.0-4.3) K/uL [place] # (Auto) (0.0-0.8) K/uL Eos # (Auto) (0.0-0.7) K/uL Baso # (Auto) (0.0-0.2) K/uL APTT 74.5 H (25.6-37.1) Seconds pCO2 49 H (35-45) mm/Hg pO2 68 L (80-100) mm/Hg HCO3 35.0 H (21-28) mmol/L ABG pH 7.50 H (7.35-7.45) ABG Total CO2 39.7 H (22-28) mmol/L ABG O2 Saturation 97.9 (95-98) % ABG Base Excess 13.0 H (-2.0-3.0) mmol/L Nam Test Yes ABG Potassium 3.3 L (3.6-5.2) mmol/L A-a O2 Difference 227.0 mm/Hg Glucose 141 H (75-110) mg/dL Lactate 0.8 (0.7-2.1) mmol/L Vent Mode A/c Mechanical Rate 18 FiO2 50.0 % Tidal Volume 450 PEEP 5 Sodium 139.0 139 (132-148) mmol/l Potassium 3.3 L (3.6-5.0) MMOL/L Chloride 101.0 96 L (98-107) mmol/L Carbon Dioxide 35 H (22-30) mmol/L Anion Gap 11 (10-20) BUN 29 H (9-20) mg/dl Creatinine 1.0 (0.8-1.5) mg/dl Est GFR ( Amer) > 60 Est GFR (Non-Af Amer) > 60 Random Glucose 145 H (75-110) mg/dL Calcium 8.9 (8.4-10.2) mg/dL Phosphorus 3.8 (2.5-4.5) mg/dl Magnesium 2.3 (1.6-2.3) MG/DL Total Bilirubin 0.7 (0.2-1.3) mg/dl AST 34 (17-59) U/L ALT 36 (21-72) U/L Alkaline Phosphatase 109 (38-126) U/L Total Protein 6.4 (6.3-8.2) G/DL Albumin 3.3 L (3.5-5.0) g/dL Globulin 3.2 (2.2-3.9) gm/dL Albumin/Globulin Ratio 1.0 (1.0-2.1) Arterial Blood Potassium 3.3 L (3.6-5.2) mmol/L Influenza Typ A,B (EIA) (NEGATIVE) 07/18/18 07/17/18 Range/Units 04:30 13:53 WBC 11.0 H (4.8-10.8) K/uL RBC 3.20 L (4.40-5.90) Mil/uL Hgb 9.4 L (12.0-18.0) g/dL Hct 28.9 L (35.0-51.0) % MCV 90.3 D (80.0-94.0) fl MCH 29.2 (27.0-31.0) pg MCHC 32.4 L (33.0-37.0) g/dL RDW 16.7 H (11.5-14.5) % Plt Count 230 (130-400) K/uL MPV 9.1 (7.2-11.7) fl Neut % (Auto) 69.9 (50.0-75.0) % Lymph % (Auto) 12.8 L (20.0-40.0) % [place] % (Auto) 15.2 H (0.0-10.0) % Eos % (Auto) 1.2 (0.0-4.0) % Baso % (Auto) 0.9 (0.0-2.0) % Neut # (Auto) 7.7 H (1.8-7.0) K/uL Lymph # (Auto) 1.4 (1.0-4.3) K/uL [place] # (Auto) 1.7 H (0.0-0.8) K/uL Eos # (Auto) 0.1 (0.0-0.7) K/uL Baso # (Auto) 0.1 (0.0-0.2) K/uL APTT (25.6-37.1) Seconds pCO2 (35-45) mm/Hg pO2 (80-100) mm/Hg HCO3 (21-28) mmol/L ABG pH (7.35-7.45) ABG Total CO2 (22-28) mmol/L ABG O2 Saturation (95-98) % ABG Base Excess (-2.0-3.0) mmol/L Nam Test ABG Potassium (3.6-5.2) mmol/L A-a O2 Difference mm/Hg Glucose (75-110) mg/dL Lactate (0.7-2.1) mmol/L Vent Mode Mechanical Rate FiO2 % Tidal Volume PEEP Sodium (132-148) mmol/l Potassium (3.6-5.0) MMOL/L Chloride (98-107) mmol/L Carbon Dioxide (22-30) mmol/L Anion Gap (10-20) BUN (9-20) mg/dl Creatinine (0.8-1.5) mg/dl Est GFR ( Amer) Est GFR (Non-Af Amer) Random Glucose (75-110) mg/dL Calcium (8.4-10.2) mg/dL Phosphorus (2.5-4.5) mg/dl Magnesium (1.6-2.3) MG/DL Total Bilirubin (0.2-1.3) mg/dl AST (17-59) U/L ALT (21-72) U/L Alkaline Phosphatase (38-126) U/L Total Protein (6.3-8.2) G/DL Albumin (3.5-5.0) g/dL Globulin (2.2-3.9) gm/dL Albumin/Globulin Ratio (1.0-2.1) Arterial Blood Potassium (3.6-5.2) mmol/L Influenza Typ A,B (EIA) Negative for flu a/b (NEGATIVE) Laboratory Results - last 24 hr 07/17/18 07/18/18 07/18/18 13:53 04:30 04:30 WBC 11.0 H RBC 3.20 L Hgb 9.4 L Hct 28.9 L MCV 90.3 D MCH 29.2 MCHC 32.4 L RDW 16.7 H Plt Count 230 MPV 9.1 Neut % (Auto) 69.9 Lymph % (Auto) 12.8 L [place] % (Auto) 15.2 H Eos % (Auto) 1.2 Baso % (Auto) 0.9 Neut # (Auto) 7.7 H Lymph # (Auto) 1.4 [place] # (Auto) 1.7 H Eos # (Auto) 0.1 Baso # (Auto) 0.1 APTT pCO2 pO2 HCO3 ABG pH ABG Total CO2 ABG O2 Saturation ABG Base Excess Nam Test ABG Potassium A-a O2 Difference Glucose Lactate Vent Mode Mechanical Rate FiO2 Tidal Volume PEEP Sodium 139 Potassium 3.3 L Chloride 96 L Carbon Dioxide 35 H Anion Gap 11 BUN 29 H Creatinine 1.0 Est GFR ( Amer) > 60 Est GFR (Non-Af Amer) > 60 Random Glucose 145 H Calcium 8.9 Phosphorus 3.8 Magnesium 2.3 Total Bilirubin 0.7 AST 34 ALT 36 Alkaline Phosphatase 109 Total Protein 6.4 Albumin 3.3 L Globulin 3.2 Albumin/Globulin Ratio 1.0 Arterial Blood Potassium Influenza Typ A,B (EIA) Negative for flu a/b 07/18/18 07/18/18 04:30 04:50 WBC RBC Hgb Hct MCV MCH MCHC RDW Plt Count MPV Neut % (Auto) Lymph % (Auto) [place] % (Auto) Eos % (Auto) Baso % (Auto) Neut # (Auto) Lymph # (Auto) [place] # (Auto) Eos # (Auto) Baso # (Auto) APTT 74.5 H pCO2 49 H pO2 68 L HCO3 35.0 H ABG pH 7.50 H ABG Total CO2 39.7 H ABG O2 Saturation 97.9 ABG Base Excess 13.0 H Nam Test Yes ABG Potassium 3.3 L A-a O2 Difference 227.0 Glucose 141 H Lactate 0.8 Vent Mode A/c Mechanical Rate 18 FiO2 50.0 Tidal Volume 450 PEEP 5 Sodium 139.0 Potassium Chloride 101.0 Carbon Dioxide Anion Gap BUN Creatinine Est GFR ( Amer) Est GFR (Non-Af Amer) Random Glucose Calcium Phosphorus Magnesium Total Bilirubin AST ALT Alkaline Phosphatase Total Protein Albumin Globulin Albumin/Globulin Ratio Arterial Blood Potassium 3.3 L Influenza Typ A,B (EIA) Radiology Impressions: Radiology Impressions Chest CT 07/17/18 09:41 IMPRESSION: Moderate to large bilateral pleural effusions with areas of moderate associated compressive atelectasis. Mild interstitial change and edema in the upper lung hanks. Sampling of the fluid may prove helpful as clinically indicated. Chest X-Ray 07/18/18 07:00 IMPRESSION: Grossly stable appearance of the lung hanks. 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, h/o TAVR and A-fib intubated and has prolonged hospital course - -Hypoxic respiratory failure: continuve ventilation to keep spo2 >92, continue PRVC,CPAP trials daily -Lobar Pneumonia/VAP: suspect infectious etiology or recurrent aspiration, HOB >45, Ventilator bundle, continue bronchodilators and solumedrol, obtain CT chest, continue empirial abx, consider atypical culture, added doxycycline, c onsider ID eval/follow up -h/o ?ileus and was placed on pyridostimine, pyridostigmine can cause worseing of respiratory symptoms including increased bronchial secretions, consider d/c puridostigmine -continue NG tube -sedation during ventilation aviod using benzo and opioids, consider precedex -A-fib with TAVR: rate controlled contineu AC with heparin (held 2nd antiicipated thoracentesis -DVT ppx: on heparin GGT (held 2nd anticipated thoracentesis) -PUD ppx:protonix -Patient does not require simms, suspect anticholinergic and cholinergic effect, consider bladder scan q8hrs and straight cath q8hrs -d/w and primary team -continue ventilation and repeat ABG cc time37 minutes -prognosis guarded - Date & Time Date: 07/18/18 Time: 10:29
[2018-07-18] MEDS ORDERED: Potassium Chloride 20 mEq/15 ml LIQ UD NG ONE (10:30)
[2018-07-18] MEDS ORDERED: Potassium Chloride 20 mEq/15 ml LIQ UD PO SCH (10:30)
[2018-07-18] MEDS: Potassium CL 10mEq/100ml 100 ML IVPB SCH ×2 (10:42→13:24)
--- NOTE | 2018-07-18 12:08 | CP.PCM.PN ---
Subjective - Date & Time of Evaluation Date of Evaluation: 07/18/18 Time of Evaluation: 12:08 - Subjective Subjective: RENAL Follow Up Note Sub: unable to obtain. pt intubated/sedated o/e: vss, obese male, orally intubated sclera: anicteric neck: supple no thyromegaly lungs: b/l air entry reduced at bases cv: +S1+s2 no rub abd: + distension +bs no organomegaly ext: no edema neuro: sedated psych: unable skin: No rash no ulcer labs and imaging reviewed Assessment: critical acute hypercapnic respi failure PNA, CHF exacerbation ANTHONY improved HTN, COPD CHF s/p TAVR Obesity Hypokalemia plan: renal function stable bp stable mostly continue with lasix 60 mg IV bid. will Increase metolazone 5 mg bid for 2 days. Hopefully will be tolerated by BP supplement lytes as needed. Dose meds/antibiotics for GFR >60. Glycemic control Further work up/management as per primary team Thanks for allowing me to participate in care of your patient. Will follow patient with you. Please call if any Qs. had d/w team Dr Jose R Ferrera Office: [phone] Objective - Vital Signs/Intake and Output Vital Signs (last 24 hours): Temp Pulse Resp BP Pulse Ox 97.5 F L 90 22 130/78 100 07/18/18 12:00 07/18/18 12:00 07/18/18 12:00 07/18/18 12:00 07/18/18 12:00 Intake and Output: 07/18/18 07/18/18 06:59 18:59 Intake Total 1118 465 Output Total 450 Balance 1118 15 - Medications Medications: Current Medications Acetaminophen (Tylenol 650mg/20.3ml Solution Ud) 650 mg NG Q6 PRN PRN Reason: Fever>100.4F Last Admin: 07/17/18 04:05 Dose: 650 mg Albuterol/Ipratropium (Duoneb 3 Mg/0.5 Mg (3 Ml) Ud) 3 ml INH RQ6 [facility] Last Admin: 07/18/18 07:10 Dose: 3 ml Aspirin (Ecotrin) 81 mg PO DAILY [facility] Last Admin: 07/18/18 08:16 Dose: 81 mg Atorvastatin Calcium (Lipitor) 20 mg PO HS [facility] Last Admin: 07/17/18 21:39 Dose: 20 mg Docusate Sodium (Colace Liquid) 100 mg PO BID [facility] Last Admin: 07/18/18 08:15 Dose: Not Given Folic Acid (Folic Acid) 1 mg NG DAILY [facility] Last Admin: 07/18/18 08:16 Dose: 1 mg Furosemide (Lasix) 60 mg IVP BID [facility] Stop: 07/21/18 17:01 Doxycycline Hyclate 100 mg/ (Sodium Chloride) 100 mls @ 100 mls/hr IVPB Q12 [facility] ; Protocol Last Admin: 07/18/18 08:19 Dose: 100 mls/hr Vancomycin HCl 750 mg/ Sodium (Chloride) 250 mls @ 166.667 mls/hr IVPB Q12H [facility]; Protocol Last Admin: 07/18/18 01:05 Dose: 166.667 mls/hr Heparin Sodium/Dextrose (Heparin 25,000 Units/250ml In D5w) 25,000 units in 250 mls @ 14 mls/hr IV .[id number] [facility]; Protocol Last Titration: 07/18/18 07:32 Dose: 12 mls/hr Potassium Chloride (Potassium Chloride 10 Meq/100 Ml) 100 mls @ 100 mls/hr IVPB Q1 [facility] Stop: 07/18/18 12:59 Last Admin: 07/18/18 10:42 Dose: 100 mls/hr Lactic Acid (Lac-Hydrin 12% Lotion (225 G)) 1 applic TOP TID [facility] Last Admin: 07/18/18 08:16 Dose: 1 applic Lactulose (Enulose) 10 gm PO DAILY PRN PRN Reason: Constipation Metolazone (Zaroxolyn) 5 mg PO BID [facility] Stop: 07/20/18 17:01 Nystatin (Nystop Topical Powder) 1 applic TOP TID [facility] Last Admin: 07/18/18 08:17 Dose: 1 applic Ondansetron HCl (Zofran Inj) 4 mg IVP Q6H PRN PRN Reason: Nausea/Vomiting Pantoprazole Sodium (Protonix Inj) 40 mg IVP DAILY [facility] Last Admin: 07/18/18 08:17 Dose: 40 mg Potassium Chloride (Potassium Chloride Oral Soln) 20 meq NG BID [facility] Stop: 07/21/18 17:01 Pyridostigmine [place] (Mestinon Tab) 30 mg PO TID [facility] Last Admin: 07/18/18 08:17 Dose: 30 mg Sennosides (Senokot Tab) 8.6 mg PO BID [facility] Last Admin: 07/18/18 08:17 Dose: Not Given Thiamine HCl (Vitamin B1 Tab) 100 mg NG DAILY [facility] Last Admin: 07/18/18 08:20 Dose: 100 mg - Labs Labs: 07/18/18 04:30 07/18/18 04:30 PT 12.6 Seconds (9.8-13.1) 07/08/18 00:19 INR 1.1 07/08/18 00:19 APTT 74.5 Seconds (25.6-37.1) H 07/18/18 04:30
[2018-07-18] MEDS ORDERED: Lidocaine 1% Inj (20ml) ONE (12:21)
--- NOTE | 2018-07-18 12:55 | CP.PCM.PN ---
Subjective - Date & Time of Evaluation Date of Evaluation: 07/18/18 Time of Evaluation: 11:30 - Subjective Subjective: NO CHEST PAIN Objective - Vital Signs/Intake and Output Vital Signs (last 24 hours): Temp Pulse Resp BP Pulse Ox 97.5 F L 90 22 130/78 100 07/18/18 12:00 07/18/18 12:00 07/18/18 12:00 07/18/18 12:00 07/18/18 12:00 Intake and Output: 07/18/18 07/18/18 06:59 18:59 Intake Total 1118 465 Output Total 450 Balance 1118 15 - Medications Medications: Current Medications Acetaminophen (Tylenol 650mg/20.3ml Solution Ud) 650 mg NG Q6 PRN PRN Reason: Fever>100.4F Last Admin: 07/17/18 04:05 Dose: 650 mg Albuterol/Ipratropium (Duoneb 3 Mg/0.5 Mg (3 Ml) Ud) 3 ml INH RQ6 [facility] Last Admin: 07/18/18 07:10 Dose: 3 ml Aspirin (Ecotrin) 81 mg PO DAILY [facility] Last Admin: 07/18/18 08:16 Dose: 81 mg Atorvastatin Calcium (Lipitor) 20 mg PO HS [facility] Last Admin: 07/17/18 21:39 Dose: 20 mg Docusate Sodium (Colace Liquid) 100 mg PO BID [facility] Last Admin: 07/18/18 08:15 Dose: Not Given Folic Acid (Folic Acid) 1 mg NG DAILY [facility] Last Admin: 07/18/18 08:16 Dose: 1 mg Furosemide (Lasix) 60 mg IVP BID [facility] Stop: 07/21/18 17:01 Doxycycline Hyclate 100 mg/ (Sodium Chloride) 100 mls @ 100 mls/hr IVPB Q12 [facility]; Protocol Last Admin: 07/18/18 08:19 Dose: 100 mls/hr Vancomycin HCl 750 mg/ Sodium (Chloride) 250 mls @ 166.667 mls/hr IVPB Q12H [facility]; Protocol Last Admin: 07/18/18 01:05 Dose: 166.667 mls/hr Heparin Sodium/Dextrose (Heparin 25,000 Units/250ml In D5w) 25,000 units in 250 mls @ 14 mls/hr IV .[id number] [facility]; Protocol Last Titration: 07/18/18 07:32 Dose: 12 mls/hr Potassium Chloride (Potassium Chloride 10 Meq/100 Ml) 100 mls @ 100 mls/hr IVPB Q1 [facility] Stop: 07/18/18 12:59 Last Admin: 07/18/18 10:42 Dose: 100 mls/hr Lactic Acid (Lac-Hydrin 12% Lotion (225 G)) 1 applic TOP TID [facility] Last Admin: 07/18/18 08:16 Dose: 1 applic Lactulose (Enulose) 10 gm PO DAILY PRN PRN Reason: Constipation Metolazone (Zaroxolyn) 5 mg PO BID [facility] Stop: 07/20/18 17:01 Nystatin (Nystop Topical Powder) 1 applic TOP TID [facility] Last Admin: 07/18/18 08:17 Dose: 1 applic Ondansetron HCl (Zofran Inj) 4 mg IVP Q6H PRN PRN Reason: Nausea/Vomiting Pantoprazole Sodium (Protonix Inj) 40 mg IVP DAILY [facility] Last Admin: 07/18/18 08:17 Dose: 40 mg Potassium Chloride (Potassium Chloride Oral Soln) 20 meq NG BID [facility] Stop: 07/21/18 17:01 Pyridostigmine [place] (Mestinon Tab) 30 mg PO TID [facility] Last Admin: 07/18/18 08:17 Dose: 30 mg Sennosides (Senokot Tab) 8.6 mg PO BID [facility] Last Admin: 07/18/18 08:17 Dose: Not Given Thiamine HCl (Vitamin B1 Tab) 100 mg NG DAILY [facility] Last Admin: 07/18/18 08:20 Dose: 100 mg - Labs Labs: 07/18/18 04:30 07/18/18 04:30 PT 12.6 Seconds (9.8-13.1) 07/08/18 00:19 INR 1.1 07/08/18 00:19 APTT 74.5 Seconds (25.6-37.1) H 07/18/18 04:30 - Respiratory Exam Respiratory Exam: Decreased Breath Sounds, Rhonchi - Cardiovascular Exam Cardiovascular Exam: Irregular Rhythm, +S1, +S2 - Extremities Exam Extremities Exam: Pedal Edema - Additional Findings Additional findings: POOL HAND SHOWS ATRIAL FIBRILLATION WITH MODERATE RATES PULMONARY NOTES AND BRONCHOSCOPY REPORT FROM 07/17/18 REVIEWED K+ 3.3 Assessment and Plan - Assessment and Plan (Free Text) Assessment: PNEUMONIA AND PLEURAL EFFUSIONS TAVR ATRIAL FIBRILLATION HYPERTENSION HYPERLIPIDEMIA HYPOKALEMIA Plan: CONTINUE MV, ANTIBIOTICS, DUONEB, ASPIRIN, HEPARIN, FUROSEMIDE, ZAROXOLYN, ATORVASTATIN, KCL
[2018-07-18] MEDS: Dexmedetomidine Hydrochloride 400 MCG in Sodium Chloride 0.9% 96 ML IV ONE (13:49)
--- NOTE | 2018-07-18 14:46 | RAD ---
Date of service: 07/18/2018 PROCEDURE: CHEST RADIOGRAPH, 1 VIEW HISTORY: pig tail placement COMPARISON: 07/18/2018 at 4:18 FINDINGS: LUNGS: Endotracheal tube is identified in the upper trachea. This appears to be 9 centimeters from the brian. This should be adjusted appropriately. There is a small new right-sided pleural catheter noted with a portion overlying the outer portion of the chest wall. Right and left pleural effusions are once again noted. There is an NG tube with its tip in the stomach. No pneumothorax is seen. Subsegmental atelectasis is once again seen at the lung bases. Vasculature is minimally improved PLEURA: See above. CARDIOVASCULAR: Stable aortic atherosclerotic calcification present. OSSEOUS STRUCTURES: No significant abnormalities. VISUALIZED UPPER ABDOMEN: Normal. OTHER FINDINGS: None. IMPRESSION: Endotracheal tube is noted in the proximal tracheal region approximately 9 centimeters from the brian. New right-sided pleural catheter placement. Bilateral effusions and atelectasis. Correlation for positioning is suggested. No pneumothorax.
[2018-07-18 15:01] LABS: GLUCOSE,BODY FLUID 130 mg/dL (NONE ESTABLISHED)
[2018-07-18] MEDS: metOLazone 5 MG TAB PO SCH (16:17)
[2018-07-18] MEDS: Potassium Chloride 20 mEq/15 ml LIQ UD NG SCH (16:20)
--- NOTE | 2018-07-18 21:30 | CP.PCM.PN ---
Subjective - Date & Time of Evaluation Date of Evaluation: 07/18/18 Time of Evaluation: 22:22 - Subjective Subjective: Events noted S/P Bronchoscopy Objective - Vital Signs/Intake and Output Vital Signs (last 24 hours): Temp Pulse Resp BP Pulse Ox 97.5 F L 84 20 112/72 96 07/18/18 16:00 07/18/18 17:56 07/18/18 17:56 07/18/18 17:56 07/18/18 17:56 Intake and Output: 07/18/18 07/19/18 18:59 06:59 Intake Total 1555 Output Total 1410 Balance 145 - Medications Medications: Current Medications Acetaminophen (Tylenol 650mg/20.3ml Solution Ud) 650 mg NG Q6 PRN PRN Reason: Fever>100.4F Last Admin: 07/17/18 04:05 Dose: 650 mg Albuterol/Ipratropium (Duoneb 3 Mg/0.5 Mg (3 Ml) Ud) 3 ml INH RQ6 [facility] Last Admin: 07/18/18 19:06 Dose: 3 ml Aspirin (Ecotrin) 81 mg PO DAILY [facility] Last Admin: 07/18/18 08:16 Dose: 81 mg Atorvastatin Calcium (Lipitor) 20 mg PO HS [facility] Last Admin: 07/17/18 21:39 Dose: 20 mg Docusate Sodium (Colace Liquid) 100 mg PO BID [facility] Last Admin: 07/18/18 16:13 Dose: Not Given Folic Acid (Folic Acid) 1 mg NG DAILY [facility] Last Admin: 07/18/18 08:16 Dose: 1 mg Furosemide (Lasix) 60 mg IVP BID [facility] Stop: 07/21/18 17:01 Last Admin: 07/18/18 16:15 Dose: 60 mg Doxycycline Hyclate 100 mg/ (Sodium Chloride) 100 mls @ 100 mls/hr IVPB Q12 [facility]; Protocol Last Admin: 07/18/18 08:19 Dose: 100 mls/hr Vancomycin HCl 750 mg/ Sodium (Chloride) 250 mls @ 166.667 mls/hr IVPB Q12H [facility]; Protocol Last Admin: 07/18/18 13:24 Dose: 166.667 mls/hr Heparin Sodium/Dextrose (Heparin 25,000 Units/250ml In D5w) 25,000 units in 250 mls @ 14 mls/hr IV .[id number] [facility]; Protocol Last Titration: 07/18/18 07:32 Dose: 12 mls/hr Dexmedetomidine HCl 400 mcg/ (Sodium Chloride) 100 mls @ 4.72 mls/hr IV .[id number] [facility]; Protocol Stop: 07/19/18 10:53 Last Admin: 07/18/18 13:49 Dose: 0.2 mcg/kg/hr, 4.72 mls/hr Lactic Acid (Lac-Hydrin 12% Lotion (225 G)) 1 applic TOP TID [facility] Last Admin: 07/18/18 16:13 Dose: 1 applic Lactulose (Enulose) 10 gm PO DAILY PRN PRN Reason: Constipation Metolazone (Zaroxolyn) 5 mg PO BID [facility] Stop: 07/20/18 17:01 Last Admin: 07/18/18 16:17 Dose: 5 mg Nystatin (Nystop Topical Powder) 1 applic TOP TID [facility] Last Admin: 07/18/18 16:16 Dose: 1 applic Ondansetron HCl (Zofran Inj) 4 mg IVP Q6H PRN PRN Reason: Nausea/Vomiting Pantoprazole Sodium (Protonix Inj) 40 mg IVP DAILY [facility] Last Admin: 07/18/18 08:17 Dose: 40 mg Potassium Chloride (Potassium Chloride Oral Soln) 20 meq NG BID [facility] Stop: 07/21/18 17:01 Last Admin: 07/18/18 16:20 Dose: 20 meq Pyridostigmine [place] (Mestinon Tab) 30 mg PO TID [facility] Last Admin: 07/18/18 16:16 Dose: 30 mg Sennosides (Senokot Tab) 8.6 mg PO BID [facility] Last Admin: 07/18/18 16:16 Dose: Not Given Thiamine HCl (Vitamin B1 Tab) 100 mg NG DAILY [facility] Last Admin: 07/18/18 08:20 Dose: 100 mg - Labs Labs: 07/18/18 04:30 07/18/18 04:30 PT 12.6 Seconds (9.8-13.1) 07/08/18 00:19 INR 1.1 07/08/18 00:19 APTT 33.8 Seconds (25.6-37.1) 07/18/18 13:50 - Respiratory Exam Respiratory Exam: NORMAL BREATHING PATTERN - Cardiovascular Exam Cardiovascular Exam: REGULAR RHYTHM - GI/Abdominal Exam GI & Abdominal Exam: Normal Bowel Sounds Assessment and Plan - Assessment and Plan (Free Text) Assessment: Acute Respiratory Failure Multi lobar pneumonia Bilateral Pleural effusion Hx R Pleural efusion S/P thoracentesis Hx COPD COSA Smoker ICU Intubated Pulmonary ID Hx CHF Afib S/P TAVR LV fxn good Cardiology anticoagulation Cellulitis RLE improved ABX Hx ANTHONY/ CKD Lasix Nephrology Chronic ETOH ?? HX Abdominal distention improved Colonic ileus ( recurrent ) + FOBT ?? [place] held etiol ?? 2 to L-S surgery pyridostigmine Hx LLE edema cellulitis ?? ecchymosis?? Endovascular consult ??? CT scan done no significant findings Hx Hyperkalemia 2 to Bactrim?? Hold NAMRATA Hx Hypokalemia Hyperkalemia HTN Prediabetes Hx Low back surgery (Severe Spinal Stenosis) Post operative illeus
[2018-07-18] MEDS ORDERED: Heparin Sodium (Porcine) 1,000 Units/ML 30ML IV ONE (22:51)
[2018-07-19] MEDS: Albuterol-Ipratrop 3 mg / 0.5 (3 ml) UD INH SCH ×4 (03:24→19:07)
[2018-07-19 04:29] LABS: ABG ALLEN TEST YES; ARTERIAL BLOOD GAS HCO3 34.9 mmol/L (21-28); ARTERIAL BLOOD GAS HEMOGLOBIN 9.8 g/dL (11.7-17.4); ARTERIAL BLOOD GAS O2 CAPACITY 13.4 mL/dL (16-24); ARTERIAL BLOOD GAS O2 CONTENT 13.2 ML/dL (15-23); ARTERIAL BLOOD GAS O2 SAT 98.3 % (95-98); ARTERIAL BLOOD GAS PCO2 44 mm/Hg (35-45); ARTERIAL BLOOD GAS PH 7.53 (7.35-7.45); ARTERIAL BLOOD GAS PO2 74 mm/Hg (80-100); ARTERIAL BLOOD GAS TCO2 38.2 mmol/L (22-28)
[2018-07-19 05:42] LABS: BASO # 0.1 K/uL (0.0-0.2); BASO % 1.3 % (0.0-2.0); EOS # 0.1 K/uL (0.0-0.7); EOS % 1.4 % (0.0-4.0); HEMOGLOBIN 9.4 g/dL (12.0-18.0); LYMPH # 1.3 K/uL (1.0-4.3); LYMPH % 12.6 % (20.0-40.0); MEAN CELL VOLUME 89.9 fl (80.0-94.0); MEAN CORPUSCULAR HEMOGLOBIN 29.4 pg (27.0-31.0); MEAN CORPUSCULAR HGB CONC 32.7 g/dL (33.0-37.0); MEAN PLATELET VOLUME 9.4 fl (7.2-11.7); MONO # 1.2 K/uL (0.0-0.8); MONO % 12.1 % (0.0-10.0); NEUT # 7.5 K/uL (1.8-7.0); NEUT % 72.6 % (50.0-75.0); RBC 3.21 Mil/uL (4.40-5.90); RED CELL DISTRIBUTION WIDTH 16.7 % (11.5-14.5); WHITE BLOOD COUNT 10.3 K/uL (4.8-10.8)
[2018-07-19 06:09] LABS: ALBUMIN 3.1 g/dL (3.5-5.0); ALT/SGPT 44 U/L (21-72); AST/SGOT 55 U/L (17-59); BLOOD UREA NITROGEN 31 mg/dl (9-20); GFR NON-AFRICAN AMERICAN > 60
--- NOTE | 2018-07-19 08:59 | CP.PCM.PN ---
Subjective - Date & Time of Evaluation Date of Evaluation: 07/19/18 Time of Evaluation: 08:59 - Subjective Subjective: INterim events reviewed.EMR entries noted. Patient seen in ICU on morning rounds. Case discussed with nurse and systems protection technician. Chest x-rays were reviewed. Had bedside thoracentesis done yesterday with removal of about 150mls of fluid. Chest x-rays prior and post procedure reviewed. No pneumothorax seen, possibly slight improvement in hazy density noted. Fluid LDH reported 363, glucose 130, no protein result seen. Patient has been weaned this morning to CPAP/PS ventilation. Appears comfortable on this setting thus far. Awake and more calm on precedex. Vital; signs have remained stable, afebrile x 48hrs. I&O remains positive, but dependant edema does appear slightly less. Breath sounds are slightly better heard today on the right posteriorly. Breath sounds on the left remain very diminished. No audible wheezes or bronchial breath sounds. Heart sounds distant, rhythm irregular 80s. Discussed with IR for thoracentesis today. Medical regimen will be unchanged for today. Further weaning will be dependant on the above. Tests for today's pleural fluid have been entered. Objective - Vital Signs/Intake and Output Vital Signs (last 24 hours): Temp Pulse Resp BP Pulse Ox 98.2 F 78 22 124/62 95 07/18/18 19:00 07/19/18 07:00 07/19/18 07:00 07/19/18 07:00 07/19/18 07:00 Intake and Output: 07/18/18 07/19/18 23:59 11:59 Intake Total 1478.8 702 Output Total 960 800 Balance 518.8 -98 - Medications Medications: Current Medications Acetaminophen (Tylenol 650mg/20.3ml Solution Ud) 650 mg NG Q6 PRN PRN Reason: Fever>100.4F Last Admin: 07/17/18 04:05 Dose: 650 mg Albuterol/Ipratropium (Duoneb 3 Mg/0.5 Mg (3 Ml) Ud) 3 ml INH RQ6 [facility] Last Admin: 07/19/18 07:30 Dose: 3 ml Aspirin (Ecotrin) 81 mg PO DAILY [facility] Last Admin: 07/18/18 08:16 Dose: 81 mg Atorvastatin Calcium (Lipitor) 20 mg PO HS [facility] Last Admin: 07/18/18 22:42 Dose: 20 mg Docusate Sodium (Colace Liquid) 100 mg PO BID [facility] Last Admin: 07/18/18 16:13 Dose: Not Given Folic Acid (Folic Acid) 1 mg NG DAILY [facility] Last Admin: 07/18/18 08:16 Dose: 1 mg Furosemide (Lasix) 60 mg IVP BID [facility] Stop: 07/21/18 17:01 Last Admin: 07/18/18 16:15 Dose: 60 mg Doxycycline Hyclate 100 mg/ (Sodium Chloride) 100 mls @ 100 mls/hr IVPB Q12 [facility]; Protocol Last Admin: 07/18/18 22:43 Dose: 100 mls/hr Dexmedetomidine HCl 400 mcg/ (Sodium Chloride) 100 mls @ 4.72 mls/hr IV .[id number] [facility]; Protocol Stop: 07/19/18 10:53 Last Admin: 07/18/18 13:49 Dose: 0.2 mcg/kg/hr, 4.72 mls/hr Vancomycin HCl 750 mg/ Sodium (Chloride) 250 mls @ 166.667 mls/hr IVPB Q12H [facility]; Protocol Last Admin: 07/19/18 01:31 Dose: 166.667 mls/hr Heparin Sodium/Dextrose (Heparin 25,000 Units/250ml In D5w) 25,000 units in 250 mls @ 14 mls/hr IV .[id number] [facility]; Protocol Potassium Chloride (Potassium Chloride 10 Meq/100 Ml) 100 mls @ 100 mls/hr IVPB Q1 [facility] Stop: 07/19/18 09:59 Lactic Acid (Lac-Hydrin 12% Lotion (225 G)) 1 applic TOP TID [facility] Last Admin: 07/18/18 16:13 Dose: 1 applic Lactulose (Enulose) 10 gm PO DAILY PRN PRN Reason: Constipation Metolazone (Zaroxolyn) 5 mg PO BID [facility] Stop: 07/20/18 17:01 Last Admin: 07/18/18 16:17 Dose: 5 mg Nystatin (Nystop Topical Powder) 1 applic TOP TID [facility] Last Admin: 07/18/18 16:16 Dose: 1 applic Ondansetron HCl (Zofran Inj) 4 mg IVP Q6H PRN PRN Reason: Nausea/Vomiting Pantoprazole Sodium (Protonix Inj) 40 mg IVP DAILY [facility] Last Admin: 07/18/18 08:17 Dose: 40 mg Potassium Chloride (Potassium Chloride Oral Soln) 20 meq NG BID [facility] Stop: 07/21/18 17:01 Last Admin: 07/18/18 16:20 Dose: 20 meq Potassium Chloride (Potassium Chloride Oral Soln) 40 meq PO Q8H [facility] Stop: 07/19/18 15:46 Pyridostigmine [place] (Mestinon Tab) 30 mg PO TID [facility] Last Admin: 07/18/18 16:16 Dose: 30 mg Sennosides (Senokot Tab) 8.6 mg PO BID [facility] Last Admin: 07/18/18 16:16 Dose: Not Given Thiamine HCl (Vitamin B1 Tab) 100 mg NG DAILY [facility] Last Admin: 07/18/18 08:20 Dose: 100 mg - Labs Labs: 07/19/18 05:18 07/19/18 05:18 PT 12.6 Seconds (9.8-13.1) 07/08/18 00:19 INR 1.1 07/08/18 00:19 APTT 54.8 Seconds (25.6-37.1) H 07/19/18 05:18 Assessment and Plan (1) Respiratory failure with hypoxia and hypercapnia Status: Acute (2) Endotracheally intubated Status: Acute (3) Pleural effusion, left Status: Suspected (4) Dependent edema Status: Chronic (5) COPD (chronic obstructive pulmonary disease) Status: Chronic (6) Pneumonia Status: Acute
[2018-07-19] MEDS: Potassium CL 10mEq/100ml 100 ML IVPB SCH ×2 (09:31→13:34)
[2018-07-19] MEDS: Potassium Chloride 20 mEq/15 ml LIQ UD NG SCH ×2 (09:31→16:58)
[2018-07-19] MEDS: Potassium Chloride 20 mEq/15 ml LIQ UD PO SCH ×2 (09:33→17:00)
[2018-07-19] MEDS: Heparin 25,000units in D5W 25,000 UNITS/250 ML BAG IV SCH (09:36)
[2018-07-19] MEDS: metOLazone 5 MG TAB PO SCH ×2 (09:38→17:00)
--- NOTE | 2018-07-19 09:45 | CP.PCM.PN ---
Subjective - Date & Time of Evaluation Date of Evaluation: 07/19/18 Time of Evaluation: 09:44 - Subjective Subjective: Patient intubated he appears to be awake Urine output noted to be okay Vital signs noted to be stable Objective - Vital Signs/Intake and Output Vital Signs (last 24 hours): Temp Pulse Resp BP Pulse Ox 98.2 F 90 32 H 117/68 95 07/19/18 08:00 07/19/18 09:00 07/19/18 09:00 07/19/18 09:29 07/19/18 09:00 Intake and Output: 07/19/18 07/19/18 06:59 18:59 Intake Total 1090.8 200 Output Total 800 Balance 290.8 200 - Medications Medications: Current Medications Acetaminophen (Tylenol 650mg/20.3ml Solution Ud) 650 mg NG Q6 PRN PRN Reason: Fever>100.4F Last Admin: 07/17/18 04:05 Dose: 650 mg Albuterol/Ipratropium (Duoneb 3 Mg/0.5 Mg (3 Ml) Ud) 3 ml INH RQ6 [facility] Last Admin: 07/19/18 07:30 Dose: 3 ml Aspirin (Ecotrin) 81 mg PO DAILY [facility] Last Admin: 07/19/18 09:27 Dose: 81 mg Atorvastatin Calcium (Lipitor) 20 mg PO HS [facility] Last Admin: 07/18/18 22:42 Dose: 20 mg Docusate Sodium (Colace Liquid) 100 mg PO BID [facility] Last Admin: 07/19/18 09:27 Dose: 100 mg Folic Acid (Folic Acid) 1 mg NG DAILY [facility] Last Admin: 07/19/18 09:28 Dose: 1 mg Furosemide (Lasix) 60 mg IVP BID [facility] Stop: 07/21/18 17:01 Last Admin: 07/19/18 09:29 Dose: 60 mg Doxycycline Hyclate 100 mg/ (Sodium Chloride) 100 mls @ 100 mls/hr IVPB Q12 [facility]; Protocol Last Admin: 07/19/18 09:35 Dose: 100 mls/hr Dexmedetomidine HCl 400 mcg/ (Sodium Chloride) 100 mls @ 4.72 mls/hr IV .[id number] [facility]; Protocol Stop: 07/19/18 10:53 Last Admin: 07/18/18 13:49 Dose: 0.2 mcg/kg/hr, 4.72 mls/hr Vancomycin HCl 750 mg/ Sodium (Chloride) 250 mls @ 166.667 mls/hr IVPB Q12H [facility]; Protocol Last Admin: 07/19/18 01:31 Dose: 166.667 mls/hr Heparin Sodium/Dextrose (Heparin 25,000 Units/250ml In D5w) 25,000 units in 250 mls @ 14 mls/hr IV .[id number] [facility]; Protocol Last Admin: 07/19/18 09:36 Dose: 14 mls/hr Potassium Chloride (Potassium Chloride 10 Meq/100 Ml) 100 mls @ 100 mls/hr IVPB Q1 [facility] Stop: 07/19/18 09:59 Last Admin: 07/19/18 09:31 Dose: 100 mls/hr Lactic Acid (Lac-Hydrin 12% Lotion (225 G)) 1 applic TOP TID [facility] Last Admin: 07/19/18 09:29 Dose: 1 applic Lactulose (Enulose) 10 gm PO DAILY PRN PRN Reason: Constipation Metolazone (Zaroxolyn) 5 mg PO BID [facility] Stop: 07/20/18 17:01 Last Admin: 07/19/18 09:38 Dose: 5 mg Nystatin (Nystop Topical Powder) 1 applic TOP TID [facility] Last Admin: 07/19/18 09:30 Dose: 1 applic Ondansetron HCl (Zofran Inj) 4 mg IVP Q6H PRN PRN Reason: Nausea/Vomiting Pantoprazole Sodium (Protonix Inj) 40 mg IVP DAILY [facility] Last Admin: 07/19/18 09:34 Dose: 40 mg Potassium Chloride (Potassium Chloride Oral Soln) 20 meq NG BID [facility] Stop: 07/21/18 17:01 Last Admin: 07/19/18 09:31 Dose: 20 meq Potassium Chloride (Potassium Chloride Oral Soln) 40 meq PO Q8H [facility] Stop: 07/19/18 15:46 Last Admin: 07/19/18 09:33 Dose: 40 meq Pyridostigmine [place] (Mestinon Tab) 30 mg PO TID [facility] Last Admin: 07/19/18 09:30 Dose: 30 mg Sennosides (Senokot Tab) 8.6 mg PO BID [facility] Last Admin: 07/19/18 09:34 Dose: 8.6 mg Thiamine HCl (Vitamin B1 Tab) 100 mg NG DAILY [facility] Last Admin: 07/19/18 09:38 Dose: 100 mg - Labs Labs: 07/19/18 05:18 07/19/18 05:18 PT 12.6 Seconds (9.8-13.1) 07/08/18 00:19 INR 1.1 07/08/18 00:19 APTT 54.8 Seconds (25.6-37.1) H 07/19/18 05:18 - Constitutional Appears: No Acute Distress - Eye Exam Eye Exam: Conjunctival injection - Neck Exam Neck Exam: absent: Lymphadenopathy - Respiratory Exam Respiratory Exam: Rhonchi Additional comments: Intubated - Cardiovascular Exam Cardiovascular Exam: absent: Gallop, JVD, Rubs - GI/Abdominal Exam GI & Abdominal Exam: Soft, Normal Bowel Sounds - Extremities Exam Extremities Exam: absent: Calf Tenderness - Back Exam Back Exam: absent: CVA tenderness (L), CVA tenderness (R) - Neurological Exam Neurological Exam: Awake - Skin Skin Exam: absent: Cyanosis Assessment and Plan (1) Cellulitis of right lower leg Status: Acute (2) Pneumonia Status: Acute (3) Respiratory failure with hypoxia and hypercapnia Status: Acute (4) Sepsis Status: Acute - Assessment and Plan (Free Text) Assessment: acute respi failure PNA, CHF exacerbation ANTHONY improved HTN, COPD CHF s/p TAVR Obesity Hypokalemia plan: renal function stable going for thoracocentesis Electrolytes stable
--- NOTE | 2018-07-19 09:57 | CP.PCM.PN ---
Subjective - Date & Time of Evaluation Date of Evaluation: 07/19/18 Time of Evaluation: 09:00 - Subjective Subjective: seen on rounds orders reviewed case discussed Objective - Vital Signs/Intake and Output Vital Signs (last 24 hours): Temp Pulse Resp BP Pulse Ox 98.2 F 90 32 H 117/68 95 07/19/18 08:00 07/19/18 09:00 07/19/18 09:00 07/19/18 09:29 07/19/18 09:00 Intake and Output: 07/19/18 07/19/18 06:59 18:59 Intake Total 1090.8 200 Output Total 800 Balance 290.8 200 - Medications Medications: Current Medications Acetaminophen (Tylenol 650mg/20.3ml Solution Ud) 650 mg NG Q6 PRN PRN Reason: Fever>100.4F Last Admin: 07/17/18 04:05 Dose: 650 mg Albuterol/Ipratropium (Duoneb 3 Mg/0.5 Mg (3 Ml) Ud) 3 ml INH RQ6 [facility] Last Admin: 07/19/18 07:30 Dose: 3 ml Aspirin (Ecotrin) 81 mg PO DAILY [facility] Last Admin: 07/19/18 09:27 Dose: 81 mg Atorvastatin Calcium (Lipitor) 20 mg PO HS [facility] Last Admin: 07/18/18 22:42 Dose: 20 mg Docusate Sodium (Colace Liquid) 100 mg PO BID [facility] Last Admin: 07/19/18 09:27 Dose: 100 mg Folic Acid (Folic Acid) 1 mg NG DAILY [facility] Last Admin: 07/19/18 09:28 Dose: 1 mg Furosemide (Lasix) 60 mg IVP BID [facility] Stop: 07/21/18 17:01 Last Admin: 07/19/18 09:29 Dose: 60 mg Doxycycline Hyclate 100 mg/ (Sodium Chloride) 100 mls @ 100 mls/hr IVPB Q12 [facility]; Protocol Last Admin: 07/19/18 09:35 Dose: 100 mls/hr Dexmedetomidine HCl 400 mcg/ (Sodium Chloride) 100 mls @ 4.72 mls/hr IV .[id number] [facility]; Protocol Stop: 07/19/18 10:53 Last Admin: 07/18/18 13:49 Dose: 0.2 mcg/kg/hr, 4.72 mls/hr Vancomycin HCl 750 mg/ Sodium (Chloride) 250 mls @ 166.667 mls/hr IVPB Q12H [facility]; Protocol Last Admin: 07/19/18 01:31 Dose: 166.667 mls/hr Heparin Sodium/Dextrose (Heparin 25,000 Units/250ml In D5w) 25,000 units in 250 mls @ 14 mls/hr IV .[id number] [facility]; Protocol Last Admin: 07/19/18 09:36 Dose: 14 mls/hr Potassium Chloride (Potassium Chloride 10 Meq/100 Ml) 100 mls @ 100 mls/hr IVPB Q1 [facility] Stop: 07/19/18 09:59 Last Admin: 07/19/18 09:31 Dose: 100 mls/hr Lactic Acid (Lac-Hydrin 12% Lotion (225 G)) 1 applic TOP TID [facility] Last Admin: 07/19/18 09:29 Dose: 1 applic Lactulose (Enulose) 10 gm PO DAILY PRN PRN Reason: Constipation Metolazone (Zaroxolyn) 5 mg PO BID [facility] Stop: 07/20/18 17:01 Last Admin: 07/19/18 09:38 Dose: 5 mg Nystatin (Nystop Topical Powder) 1 applic TOP TID [facility] Last Admin: 07/19/18 09:30 Dose: 1 applic Ondansetron HCl (Zofran Inj) 4 mg IVP Q6H PRN PRN Reason: Nausea/Vomiting Pantoprazole Sodium (Protonix Inj) 40 mg IVP DAILY [facility] Last Admin: 07/19/18 09:34 Dose: 40 mg Potassium Chloride (Potassium Chloride Oral Soln) 20 meq NG BID [facility] Stop: 07/21/18 17:01 Last Admin: 07/19/18 09:31 Dose: 20 meq Potassium Chloride (Potassium Chloride Oral Soln) 40 meq PO Q8H [facility] Stop: 07/19/18 15:46 Last Admin: 07/19/18 09:33 Dose: 40 meq Pyridostigmine [place] (Mestinon Tab) 30 mg PO TID [facility] Last Admin: 07/19/18 09:30 Dose: 30 mg Sennosides (Senokot Tab) 8.6 mg PO BID [facility] Last Admin: 07/19/18 09:34 Dose: 8.6 mg Thiamine HCl (Vitamin B1 Tab) 100 mg NG DAILY [facility] Last Admin: 07/19/18 09:38 Dose: 100 mg - Labs Labs: 07/19/18 05:18 07/19/18 05:18 PT 12.6 Seconds (9.8-13.1) 07/08/18 00:19 INR 1.1 07/08/18 00:19 APTT 54.8 Seconds (25.6-37.1) H 07/19/18 05:18 Assessment and Plan (1) Cellulitis of right lower leg Status: Acute (2) Atrial fibrillation Status: Acute (3) CHF (congestive heart failure) Status: Acute (4) Endotracheally intubated Status: Acute (5) Respiratory distress Status: Acute (6) Respiratory failure with hypoxia and hypercapnia Status: Acute (7) Dependent edema Status: Chronic (8) Pleural effusion, left Status: Suspected (9) Pneumonia Status: Acute (10) COPD (chronic obstructive pulmonary disease) Status: Chronic (11) Sepsis Status: Acute
--- NOTE | 2018-07-19 10:22 | CP.PCM.PN ---
Subjective - Date & Time of Evaluation Date of Evaluation: 07/19/18 Time of Evaluation: 09:30 - Subjective Subjective: NO CHEST PAIN BY NODDING Objective - Vital Signs/Intake and Output Vital Signs (last 24 hours): Temp Pulse Resp BP Pulse Ox 98.2 F 90 32 H 117/68 95 07/19/18 08:00 07/19/18 09:00 07/19/18 09:00 07/19/18 09:29 07/19/18 09:00 Intake and Output: 07/19/18 07/19/18 06:59 18:59 Intake Total 1090.8 200 Output Total 800 Balance 290.8 200 - Medications Medications: Current Medications Acetaminophen (Tylenol 650mg/20.3ml Solution Ud) 650 mg NG Q6 PRN PRN Reason: Fever>100.4F Last Admin: 07/17/18 04:05 Dose: 650 mg Albuterol/Ipratropium (Duoneb 3 Mg/0.5 Mg (3 Ml) Ud) 3 ml INH RQ6 [facility] Last Admin: 07/19/18 07:30 Dose: 3 ml Aspirin (Ecotrin) 81 mg PO DAILY [facility] Last Admin: 07/19/18 09:27 Dose: 81 mg Atorvastatin Calcium (Lipitor) 20 mg PO HS [facility] Last Admin: 07/18/18 22:42 Dose: 20 mg Docusate Sodium (Colace Liquid) 100 mg PO BID [facility] Last Admin: 07/19/18 09:27 Dose: 100 mg Folic Acid (Folic Acid) 1 mg NG DAILY [facility] Last Admin: 07/19/18 09:28 Dose: 1 mg Furosemide (Lasix) 60 mg IVP BID [facility] Stop: 07/21/18 17:01 Last Admin: 07/19/18 09:29 Dose: 60 mg Doxycycline Hyclate 100 mg/ (Sodium Chloride) 100 mls @ 100 mls/hr IVPB Q12 [facility]; Protocol Last Admin: 07/19/18 09:35 Dose: 100 mls/hr Dexmedetomidine HCl 400 mcg/ (Sodium Chloride) 100 mls @ 4.72 mls/hr IV .[id number] ONE; Protocol Stop: 07/19/18 10:53 Last Admin: 07/18/18 13:49 Dose: 0.2 mcg/kg/hr, 4.72 mls/hr Vancomycin HCl 750 mg/ Sodium (Chloride) 250 mls @ 166.667 mls/hr IVPB Q12H [facility]; Protocol Last Admin: 07/19/18 01:31 Dose: 166.667 mls/hr Heparin Sodium/Dextrose (Heparin 25,000 Units/250ml In D5w) 25,000 units in 250 mls @ 14 mls/hr IV .[id number] [facility]; Protocol Last Admin: 07/19/18 09:36 Dose: 14 mls/hr Lactic Acid (Lac-Hydrin 12% Lotion (225 G)) 1 applic TOP TID [facility] Last Admin: 07/19/18 09:29 Dose: 1 applic Lactulose (Enulose) 10 gm PO DAILY PRN PRN Reason: Constipation Metolazone (Zaroxolyn) 5 mg PO BID [facility] Stop: 07/20/18 17:01 Last Admin: 07/19/18 09:38 Dose: 5 mg Nystatin (Nystop Topical Powder) 1 applic TOP TID [facility] Last Admin: 07/19/18 09:30 Dose: 1 applic Ondansetron HCl (Zofran Inj) 4 mg IVP Q6H PRN PRN Reason: Nausea/Vomiting Pantoprazole Sodium (Protonix Inj) 40 mg IVP DAILY [facility] Last Admin: 07/19/18 09:34 Dose: 40 mg Potassium Chloride (Potassium Chloride Oral Soln) 20 meq NG BID [facility] Stop: 07/21/18 17:01 Last Admin: 07/19/18 09:31 Dose: 20 meq Potassium Chloride (Potassium Chloride Oral Soln) 40 meq PO Q8H [facility] Stop: 07/19/18 15:46 Last Admin: 07/19/18 09:33 Dose: 40 meq Pyridostigmine [place] (Mestinon Tab) 30 mg PO TID [facility] Last Admin: 07/19/18 09:30 Dose: 30 mg Sennosides (Senokot Tab) 8.6 mg PO BID [facility] Last Admin: 07/19/18 09:34 Dose: 8.6 mg Thiamine HCl (Vitamin B1 Tab) 100 mg NG DAILY [facility] Last Admin: 07/19/18 09:38 Dose: 100 mg - Labs Labs: 07/19/18 05:18 07/19/18 05:18 PT 12.6 Seconds (9.8-13.1) 07/08/18 00:19 INR 1.1 07/08/18 00:19 APTT 54.8 Seconds (25.6-37.1) H 07/19/18 05:18 - Respiratory Exam Respiratory Exam: Decreased Breath Sounds - Cardiovascular Exam Cardiovascular Exam: Irregular Rhythm, +S1, +S2 - Extremities Exam Extremities Exam: Pedal Edema - Additional Findings Additional findings: 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
--- NOTE | 2018-07-19 11:00 | CP.CCUPN ---
CCU Subjective - Physician Review Subjective (Free Text): After thoracentesis, FiO2 decreased to 35 %, tolerating CPAP, breathing comfortbaly on CPAP RSBI 78 -WBC decreased -secretions low CCU Objective - Vital Signs / Intake & Output Vital Signs (Last 4 hours): Vital Signs Temp Pulse Resp BP Pulse Ox 07/19/18 10:00 75 36 H 117/64 95 07/19/18 09:29 117/68 07/19/18 09:00 90 32 H 117/68 95 07/19/18 08:00 98.2 F 96 H 33 H 124/62 96 07/19/18 07:00 78 22 124/62 95 Intake and Output (Last 8hrs): Intake & Output 07/18/18 07/19/18 07/19/18 22:59 06:59 14:59 Intake Total 708.8 702 300 Output Total 460 800 Balance 248.8 -98 300 Weight 207 lb Intake: IV 68.8 12 Intake, Piggyback 100 250 200 Tube Feeding 440 440 Free Water Flush 100 100 Output: Chest Tube Drainage 110 Right 110 Urine 350 800 Urethral (Hyde) 350 800 - Physical Exam Head: Positive for: Atraumatic Pupils: Positive for: PERRL Mouth: Positive for: Other (orally intubated) Respiratory/Chest: Positive for: Clear to Auscultation, Good Air Exchange, Other (Rales on B/L lower lung field and left lung). Negative for: Respiratory Distress, Accessory Muscle Use, Wheezes, Tachypneic Cardiovascular: Positive for: Irregular Rhythm, Tachycardic Abdomen: Positive for: Distention, Normal Bowel Sounds. Negative for: Tenderness, Peritoneal Signs Upper Extremity: Positive for: Normal Inspection Skin: Positive for: Warm, Other (RLE mildly more erythematous then LLE ) Psychiatric: Negative for: Alert - Medications Active Medications: Active Medications Generic Name Dose Route Start Last Admin Trade Name Freq PRN Reason Stop Dose Admin Acetaminophen 650 mg 07/08/18 08:01 07/17/18 04:05 Tylenol 650mg/20.3ml Solution Ud NG 650 mg Q6 PRN Administration Fever>100.4F Albuterol/Ipratropium 3 ml 07/08/18 14:00 07/19/18 07:30 Duoneb 3 Mg/0.5 Mg (3 Ml) Ud INH 3 ml RQ6 [facility] Administration Aspirin 81 mg 07/08/18 09:00 07/19/18 09:27 Ecotrin PO 81 mg DAILY [facility] Administration Atorvastatin Calcium 20 mg 07/08/18 22:00 07/18/18 22:42 Lipitor PO 20 mg HS [facility] Administration Docusate Sodium 100 mg 07/16/18 17:00 07/19/18 09:27 Colace Liquid PO 100 mg BID [facility] Administration Folic Acid 1 mg 07/08/18 11:15 07/19/18 09:28 Folic Acid NG 1 mg DAILY [facility] Administration Furosemide 60 mg 07/18/18 17:00 07/19/18 09:29 Lasix IVP 07/21/18 17:01 60 mg BID [facility] Administration Doxycycline Hyclate 100 mg/ 100 mls @ 100 mls/hr 07/17/18 09:45 07/19/18 09:35 Sodium Chloride IVPB 100 mls/hr Q12 [facility] Administration Protocol Dexmedetomidine HCl 400 mcg/ 100 mls @ 4.72 mls/hr 07/18/18 13:42 07/18/18 13:49 Sodium Chloride IV 07/19/18 10:53 0.2 mcg/kg/hr .[id number] ONE 4.72 mls/hr Administration Protocol 0.2 MCG/KG/HR Vancomycin HCl 750 mg/ Sodium 250 mls @ 166.667 mls/hr 07/19/18 01:30 07/19/18 01:31 Chloride IVPB 166.667 mls/hr Q12H [facility] Administration Protocol Heparin Sodium/Dextrose 25,000 units in 250 mls @ 14 mls/hr 07/19/18 05:15 07/19/18 09:36 Heparin 25,000 Units/250ml In D5w IV 14 mls/hr .[id number] [facility] Administration Protocol Lactic Acid 1 applic 07/08/18 09:00 07/19/18 09:29 Lac-Hydrin 12% Lotion (225 G) TOP 1 applic TID [facility] Administration Lactulose 10 gm 07/08/18 03:46 Enulose PO DAILY PRN Constipation Metolazone 5 mg 07/18/18 17:00 07/19/18 09:38 Zaroxolyn PO 07/20/18 17:01 5 mg BID [facility] Administration Nystatin 1 applic 07/08/18 13:00 07/19/18 09:30 Nystop Topical Powder TOP 1 applic TID [facility] Administration Ondansetron HCl 4 mg 07/08/18 03:44 Zofran Inj IVP Q6H PRN Nausea/Vomiting Pantoprazole Sodium 40 mg 07/17/18 09:00 07/19/18 09:34 Protonix Inj IVP 40 mg DAILY [facility] Administration Potassium Chloride 20 meq 07/18/18 17:00 07/19/18 09:31 Potassium Chloride Oral Soln NG 07/21/18 17:01 20 meq BID [facility] Administration Potassium Chloride 40 meq 07/19/18 07:45 07/19/18 09:33 Potassium Chloride Oral Soln PO 07/19/18 15:46 40 meq Q8H [facility] Administration Pyridostigmine [place] 30 mg 07/08/18 09:00 07/19/18 09:30 Mestinon Tab PO 30 mg TID [facility] Administration Sennosides 8.6 mg 07/08/18 09:00 07/19/18 09:34 Senokot Tab PO 8.6 mg BID [facility] Administration Thiamine HCl 100 mg 07/08/18 11:15 07/19/18 09:38 Vitamin B1 Tab NG 100 mg DAILY [facility] Administration - Patient Studies Lab Studies: Microbiology Studies 07/17/18 13:00 Gram Stain - Final Trachasp Sputum Culture - Final Yeast Species Lab Studies 07/19/18 07/19/18 07/19/18 Range/Units 10:00 05:18 05:18 WBC (4.8-10.8) K/uL RBC (4.40-5.90) Mil/uL Hgb (12.0-18.0) g/dL Hct (35.0-51.0) % MCV (80.0-94.0) fl MCH (27.0-31.0) pg MCHC (33.0-37.0) g/dL RDW (11.5-14.5) % Plt Count (130-400) K/uL MPV (7.2-11.7) fl Neut % (Auto) (50.0-75.0) % Lymph % (Auto) (20.0-40.0) % [place] % (Auto) (0.0-10.0) % Eos % (Auto) (0.0-4.0) % Baso % (Auto) (0.0-2.0) % Neut # (Auto) (1.8-7.0) K/uL Lymph # (Auto) (1.0-4.3) K/uL [place] # (Auto) (0.0-0.8) K/uL Eos # (Auto) (0.0-0.7) K/uL Baso # (Auto) (0.0-0.2) K/uL APTT 54.8 H (25.6-37.1) Seconds pCO2 (35-45) mm/Hg pO2 (80-100) mm/Hg HCO3 (21-28) mmol/L ABG pH (7.35-7.45) ABG Total CO2 (22-28) mmol/L ABG O2 Saturation (95-98) % ABG O2 Content (15-23) ML/dL ABG Base Excess (-2.0-3.0) mmol/L ABG Hemoglobin (11.7-17.4) g/dL ABG Carboxyhemoglobin (0.5-1.5) % POC ABG HHb (Measured) (0.0-5.0) % ABG Methemoglobin (0.0-3.0) % ABG O2 Capacity (16-24) mL/dL Nam Test A-a O2 Difference mm/Hg Hgb O2 Saturation (95.0-98.0) % Vent Mode Mechanical Rate FiO2 % Tidal Volume PEEP Sodium 137 (132-148) mmol/l Potassium 3.5 L (3.6-5.0) MMOL/L Chloride 95 L (98-107) mmol/L Carbon Dioxide 36 H (22-30) mmol/L Anion Gap 10 (10-20) BUN 31 H (9-20) mg/dl Creatinine 1.0 (0.8-1.5) mg/dl Est GFR ( Amer) > 60 Est GFR (Non-Af Amer) > 60 POC Glucose (mg/dL) (65-110) mg/dL Random Glucose 139 H (75-110) mg/dL Calcium 9.0 (8.4-10.2) mg/dL Phosphorus 4.0 (2.5-4.5) mg/dl Magnesium 2.1 (1.6-2.3) MG/DL Total Bilirubin 0.6 (0.2-1.3) mg/dl AST 55 (17-59) U/L ALT 44 (21-72) U/L Alkaline Phosphatase 93 (38-126) U/L Lactate Dehydrogenase 608 (313-618) U/L Total Protein 6.4 (6.3-8.2) G/DL Albumin 3.1 L (3.5-5.0) g/dL Globulin 3.3 (2.2-3.9) gm/dL Albumin/Globulin Ratio 1.0 (1.0-2.1) Fluid Source Fluid Appearance Fluid WBC Fluid RBC Fluid Tot Cell Count Fluid Neutrophils Fluid Lymphocytes Fld Monocyte/Macrophag Fluid Glucose (NONE ESTABLISHED) mg/dL Fluid LDH (NONE ESTABLISHED) IU Fluid Comment 07/19/18 07/19/18 07/18/18 Range/Units 05:18 04:22 21:40 WBC 10.3 (4.8-10.8) K/uL RBC 3.21 L (4.40-5.90) Mil/uL Hgb 9.4 L (12.0-18.0) g/dL Hct 28.8 L (35.0-51.0) % MCV 89.9 (80.0-94.0) fl MCH 29.4 (27.0-31.0) pg MCHC 32.7 L (33.0-37.0) g/dL RDW 16.7 H (11.5-14.5) % Plt Count 238 (130-400) K/uL MPV 9.4 (7.2-11.7) fl Neut % (Auto) 72.6 (50.0-75.0) % Lymph % (Auto) 12.6 L (20.0-40.0) % [place] % (Auto) 12.1 H (0.0-10.0) % Eos % (Auto) 1.4 (0.0-4.0) % Baso % (Auto) 1.3 (0.0-2.0) % Neut # (Auto) 7.5 H (1.8-7.0) K/uL Lymph # (Auto) 1.3 (1.0-4.3) K/uL [place] # (Auto) 1.2 H (0.0-0.8) K/uL Eos # (Auto) 0.1 (0.0-0.7) K/uL Baso # (Auto) 0.1 (0.0-0.2) K/uL APTT 34.8 (25.6-37.1) Seconds pCO2 44 (35-45) mm/Hg pO2 74 L (80-100) mm/Hg HCO3 34.9 H (21-28) mmol/L ABG pH 7.53 H (7.35-7.45) ABG Total CO2 38.2 H (22-28) mmol/L ABG O2 Saturation 98.3 H (95-98) % ABG O2 Content 13.2 L (15-23) ML/dL ABG Base Excess 12.8 H (-2.0-3.0) mmol/L ABG Hemoglobin 9.8 L (11.7-17.4) g/dL ABG Carboxyhemoglobin 2.0 H (0.5-1.5) % POC ABG HHb (Measured) 1.6 (0.0-5.0) % ABG Methemoglobin 1.2 (0.0-3.0) % ABG O2 Capacity 13.4 L (16-24) mL/dL Nam Test Yes A-a O2 Difference 121.0 mm/Hg Hgb O2 Saturation 95.2 (95.0-98.0) % Vent Mode A/c Mechanical Rate 18 FiO2 35.0 % Tidal Volume 450 PEEP 5 Sodium (132-148) mmol/l Potassium (3.6-5.0) MMOL/L Chloride (98-107) mmol/L Carbon Dioxide (22-30) mmol/L Anion Gap (10-20) BUN (9-20) mg/dl Creatinine (0.8-1.5) mg/dl Est GFR ( Amer) Est GFR (Non-Af Amer) POC Glucose (mg/dL) (65-110) mg/dL Random Glucose (75-110) mg/dL Calcium (8.4-10.2) mg/dL Phosphorus (2.5-4.5) mg/dl Magnesium (1.6-2.3) MG/DL Total Bilirubin (0.2-1.3) mg/dl AST (17-59) U/L ALT (21-72) U/L Alkaline Phosphatase (38-126) U/L Lactate Dehydrogenase (313-618) U/L Total Protein (6.3-8.2) G/DL Albumin (3.5-5.0) g/dL Globulin (2.2-3.9) gm/dL Albumin/Globulin Ratio (1.0-2.1) Fluid Source Fluid Appearance Fluid WBC Fluid RBC Fluid Tot Cell Count Fluid Neutrophils Fluid Lymphocytes Fld Monocyte/Macrophag Fluid Glucose (NONE ESTABLISHED) mg/dL Fluid LDH (NONE ESTABLISHED) IU Fluid Comment 07/18/18 07/18/18 07/18/18 Range/Units 14:17 14:17 13:50 WBC (4.8-10.8) K/uL RBC (4.40-5.90) Mil/uL Hgb (12.0-18.0) g/dL Hct (35.0-51.0) % MCV (80.0-94.0) fl MCH (27.0-31.0) pg MCHC (33.0-37.0) g/dL RDW (11.5-14.5) % Plt Count (130-400) K/uL MPV (7.2-11.7) fl Neut % (Auto) (50.0-75.0) % Lymph % (Auto) (20.0-40.0) % [place] % (Auto) (0.0-10.0) % Eos % (Auto) (0.0-4.0) % Baso % (Auto) (0.0-2.0) % Neut # (Auto) (1.8-7.0) K/uL Lymph # (Auto) (1.0-4.3) K/uL [place] # (Auto) (0.0-0.8) K/uL Eos # (Auto) (0.0-0.7) K/uL Baso # (Auto) (0.0-0.2) K/uL APTT 33.8 (25.6-37.1) Seconds pCO2 (35-45) mm/Hg pO2 (80-100) mm/Hg HCO3 (21-28) mmol/L ABG pH (7.35-7.45) ABG Total CO2 (22-28) mmol/L ABG O2 Saturation (95-98) % ABG O2 Content (15-23) ML/dL ABG Base Excess (-2.0-3.0) mmol/L ABG Hemoglobin (11.7-17.4) g/dL ABG Carboxyhemoglobin (0.5-1.5) % POC ABG HHb (Measured) (0.0-5.0) % ABG Methemoglobin (0.0-3.0) % ABG O2 Capacity (16-24) mL/dL Nam Test A-a O2 Difference mm/Hg Hgb O2 Saturation (95.0-98.0) % Vent Mode Mechanical Rate FiO2 % Tidal Volume PEEP Sodium (132-148) mmol/l Potassium (3.6-5.0) MMOL/L Chloride (98-107) mmol/L Carbon Dioxide (22-30) mmol/L Anion Gap (10-20) BUN (9-20) mg/dl Creatinine (0.8-1.5) mg/dl Est GFR ( Amer) Est GFR (Non-Af Amer) POC Glucose (mg/dL) (65-110) mg/dL Random Glucose (75-110) mg/dL Calcium (8.4-10.2) mg/dL Phosphorus (2.5-4.5) mg/dl Magnesium (1.6-2.3) MG/DL Total Bilirubin (0.2-1.3) mg/dl AST (17-59) U/L ALT (21-72) U/L Alkaline Phosphatase (38-126) U/L Lactate Dehydrogenase (313-618) U/L Total Protein (6.3-8.2) G/DL Albumin (3.5-5.0) g/dL Globulin (2.2-3.9) gm/dL Albumin/Globulin Ratio (1.0-2.1) Fluid Source Cancelled Fluid Appearance Cancelled Fluid WBC Cancelled Fluid RBC Cancelled Fluid Tot Cell Count Cancelled Fluid Neutrophils Cancelled Fluid Lymphocytes Cancelled Fld Monocyte/Macrophag Cancelled Fluid Glucose 130 (NONE ESTABLISHED) mg/dL Fluid LDH 363 (NONE ESTABLISHED) IU Fluid Comment Cancelled 07/17/18 Range/Units 03:59 WBC (4.8-10.8) K/uL RBC (4.40-5.90) Mil/uL Hgb (12.0-18.0) g/dL Hct (35.0-51.0) % MCV (80.0-94.0) fl MCH (27.0-31.0) pg MCHC (33.0-37.0) g/dL RDW (11.5-14.5) % Plt Count (130-400) K/uL MPV (7.2-11.7) fl Neut % (Auto) (50.0-75.0) % Lymph % (Auto) (20.0-40.0) % [place] % (Auto) (0.0-10.0) % Eos % (Auto) (0.0-4.0) % Baso % (Auto) (0.0-2.0) % Neut # (Auto) (1.8-7.0) K/uL Lymph # (Auto) (1.0-4.3) K/uL [place] # (Auto) (0.0-0.8) K/uL Eos # (Auto) (0.0-0.7) K/uL Baso # (Auto) (0.0-0.2) K/uL APTT (25.6-37.1) Seconds pCO2 (35-45) mm/Hg pO2 (80-100) mm/Hg HCO3 (21-28) mmol/L ABG pH (7.35-7.45) ABG Total CO2 (22-28) mmol/L ABG O2 Saturation (95-98) % ABG O2 Content (15-23) ML/dL ABG Base Excess (-2.0-3.0) mmol/L ABG Hemoglobin (11.7-17.4) g/dL ABG Carboxyhemoglobin (0.5-1.5) % POC ABG HHb (Measured) (0.0-5.0) % ABG Methemoglobin (0.0-3.0) % ABG O2 Capacity (16-24) mL/dL Nam Test A-a O2 Difference mm/Hg Hgb O2 Saturation (95.0-98.0) % Vent Mode Mechanical Rate FiO2 % Tidal Volume PEEP Sodium (132-148) mmol/l Potassium (3.6-5.0) MMOL/L Chloride (98-107) mmol/L Carbon Dioxide (22-30) mmol/L Anion Gap (10-20) BUN (9-20) mg/dl Creatinine (0.8-1.5) mg/dl Est GFR ( Amer) Est GFR (Non-Af Amer) POC Glucose (mg/dL) 140 H (65-110) mg/dL Random Glucose (75-110) mg/dL Calcium (8.4-10.2) mg/dL Phosphorus (2.5-4.5) mg/dl Magnesium (1.6-2.3) MG/DL Total Bilirubin (0.2-1.3) mg/dl AST (17-59) U/L ALT (21-72) U/L Alkaline Phosphatase (38-126) U/L Lactate Dehydrogenase (313-618) U/L Total Protein (6.3-8.2) G/DL Albumin (3.5-5.0) g/dL Globulin (2.2-3.9) gm/dL Albumin/Globulin Ratio (1.0-2.1) Fluid Source Fluid Appearance Fluid WBC Fluid RBC Fluid Tot Cell Count Fluid Neutrophils Fluid Lymphocytes Fld Monocyte/Macrophag Fluid Glucose (NONE ESTABLISHED) mg/dL Fluid LDH (NONE ESTABLISHED) IU Fluid Comment Laboratory Results - last 24 hr 07/17/18 07/18/18 07/18/18 03:59 13:50 14:17 WBC RBC Hgb Hct MCV MCH MCHC RDW Plt Count MPV Neut % (Auto) Lymph % (Auto) [place] % (Auto) Eos % (Auto) Baso % (Auto) Neut # (Auto) Lymph # (Auto) [place] # (Auto) Eos # (Auto) Baso # (Auto) APTT 33.8 pCO2 pO2 HCO3 ABG pH ABG Total CO2 ABG O2 Saturation ABG O2 Content ABG Base Excess ABG Hemoglobin ABG Carboxyhemoglobin POC ABG HHb (Measured) ABG Methemoglobin ABG O2 Capacity Nam Test A-a O2 Difference Hgb O2 Saturation Vent Mode Mechanical Rate FiO2 Tidal Volume PEEP Sodium Potassium Chloride Carbon Dioxide Anion Gap BUN Creatinine Est GFR ( Amer) Est GFR (Non-Af Amer) POC Glucose (mg/dL) 140 H Random Glucose Calcium Phosphorus Magnesium Total Bilirubin AST ALT Alkaline Phosphatase Lactate Dehydrogenase Total Protein Albumin Globulin Albumin/Globulin Ratio Fluid Source Cancelled Fluid Appearance Cancelled Fluid WBC Cancelled Fluid RBC Cancelled Fluid Tot Cell Count Cancelled Fluid Neutrophils Cancelled Fluid Lymphocytes Cancelled Fld Monocyte/Macrophag Cancelled Fluid Glucose Fluid LDH Fluid Comment Cancelled 07/18/18 07/18/18 07/19/18 14:17 21:40 04:22 WBC RBC Hgb Hct MCV MCH MCHC RDW Plt Count MPV Neut % (Auto) Lymph % (Auto) [place] % (Auto) Eos % (Auto) Baso % (Auto) Neut # (Auto) Lymph # (Auto) [place] # (Auto) Eos # (Auto) Baso # (Auto) APTT 34.8 pCO2 44 pO2 74 L HCO3 34.9 H ABG pH 7.53 H ABG Total CO2 38.2 H ABG O2 Saturation 98.3 H ABG O2 Content 13.2 L ABG Base Excess 12.8 H ABG Hemoglobin 9.8 L ABG Carboxyhemoglobin 2.0 H POC ABG HHb (Measured) 1.6 ABG Methemoglobin 1.2 ABG O2 Capacity 13.4 L Nam Test Yes A-a O2 Difference 121.0 Hgb O2 Saturation 95.2 Vent Mode A/c Mechanical Rate 18 FiO2 35.0 Tidal Volume 450 PEEP 5 Sodium Potassium Chloride Carbon Dioxide Anion Gap BUN Creatinine Est GFR ( Amer) Est GFR (Non-Af Amer) POC Glucose (mg/dL) Random Glucose Calcium Phosphorus Magnesium Total Bilirubin AST ALT Alkaline Phosphatase Lactate Dehydrogenase Total Protein Albumin Globulin Albumin/Globulin Ratio Fluid Source Fluid Appearance Fluid WBC Fluid RBC Fluid Tot Cell Count Fluid Neutrophils Fluid Lymphocytes Fld Monocyte/Macrophag Fluid Glucose 130 Fluid LDH 363 Fluid Comment 07/19/18 07/19/18 07/19/18 05:18 05:18 05:18 WBC 10.3 RBC 3.21 L Hgb 9.4 L Hct 28.8 L MCV 89.9 MCH 29.4 MCHC 32.7 L RDW 16.7 H Plt Count 238 MPV 9.4 Neut % (Auto) 72.6 Lymph % (Auto) 12.6 L [place] % (Auto) 12.1 H Eos % (Auto) 1.4 Baso % (Auto) 1.3 Neut # (Auto) 7.5 H Lymph # (Auto) 1.3 [place] # (Auto) 1.2 H Eos # (Auto) 0.1 Baso # (Auto) 0.1 APTT 54.8 H pCO2 pO2 HCO3 ABG pH ABG Total CO2 ABG O2 Saturation ABG O2 Content ABG Base Excess ABG Hemoglobin ABG Carboxyhemoglobin POC ABG HHb (Measured) ABG Methemoglobin ABG O2 Capacity Nam Test A-a O2 Difference Hgb O2 Saturation Vent Mode Mechanical Rate FiO2 Tidal Volume PEEP Sodium 137 Potassium 3.5 L Chloride 95 L Carbon Dioxide 36 H Anion Gap 10 BUN 31 H Creatinine 1.0 Est GFR ( Amer) > 60 Est GFR (Non-Af Amer) > 60 POC Glucose (mg/dL) Random Glucose 139 H Calcium 9.0 Phosphorus 4.0 Magnesium 2.1 Total Bilirubin 0.6 AST 55 ALT 44 Alkaline Phosphatase 93 Lactate Dehydrogenase Total Protein 6.4 Albumin 3.1 L Globulin 3.3 Albumin/Globulin Ratio 1.0 Fluid Source Fluid Appearance Fluid WBC Fluid RBC Fluid Tot Cell Count Fluid Neutrophils Fluid Lymphocytes Fld Monocyte/Macrophag Fluid Glucose Fluid LDH Fluid Comment 07/19/18 10:00 WBC RBC Hgb Hct MCV MCH MCHC RDW Plt Count MPV Neut % (Auto) Lymph % (Auto) [place] % (Auto) Eos % (Auto) Baso % (Auto) Neut # (Auto) Lymph # (Auto) [place] # (Auto) Eos # (Auto) Baso # (Auto) APTT pCO2 pO2 HCO3 ABG pH ABG Total CO2 ABG O2 Saturation ABG O2 Content ABG Base Excess ABG Hemoglobin ABG Carboxyhemoglobin POC ABG HHb (Measured) ABG Methemoglobin ABG O2 Capacity Nam Test A-a O2 Difference Hgb O2 Saturation Vent Mode Mechanical Rate FiO2 Tidal Volume PEEP Sodium Potassium Chloride Carbon Dioxide Anion Gap BUN Creatinine Est GFR ( Amer) Est GFR (Non-Af Amer) POC Glucose (mg/dL) Random Glucose Calcium Phosphorus Magnesium Total Bilirubin AST ALT Alkaline Phosphatase Lactate Dehydrogenase 608 Total Protein Albumin Globulin Albumin/Globulin Ratio Fluid Source Fluid Appearance Fluid WBC Fluid RBC Fluid Tot Cell Count Fluid Neutrophils Fluid Lymphocytes Fld Monocyte/Macrophag Fluid Glucose Fluid LDH Fluid Comment Radiology Impressions: Radiology Impressions Chest X-Ray 07/18/18 12:59 IMPRESSION: Endotracheal tube is noted in the proximal tracheal region approximately 9 centimeters from the brian. New right-sided pleural catheter placement. Bilateral effusions and atelectasis. Correlation for positioning is suggested. No pneumothorax. 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 HTN, h/o TAVR and A-fib intubated and has prolonged hospital course - -Hypoxic respiratory failure:FiO2 decreased to 35%, tolerating CPAP today RSBI 78 -Lobar Pneumonia/VAP: Aspiration precautions, HOB >45, Ventilator bundle, continue bronchodilators and solumedrol, continue abx regimen, f/u cultures -h/o ?ileus: GI to determine necessesity for pyridostigmine -continue NG tube -continue precedex -A-fib with TAVR: rate controlled continue AC with heparin -DVT ppx: on heparin as per protocol -PUD ppx:protonix -d/w pulmon cc time 32 minutes -prognosis guarded, pending thoracentesis - Date & Time Date: 07/19/18 Time: 11:00
--- NOTE | 2018-07-19 11:00 | RAD ---
Date of service: 07/18/2018 PROCEDURE: CHEST RADIOGRAPH, 1 VIEW HISTORY: evaluate et tube COMPARISON: 07/18/2018. FINDINGS: LUNGS: Interval improvement with respect aeration of both lungs. PLEURA: Decrease in bilateral pleural effusions. Incompletely visible chest tube in the right pleural space. CARDIOVASCULAR: Atherosclerotic calcifications identified primarily aortic arch. Normal. OSSEOUS STRUCTURES: No significant abnormalities. VISUALIZED UPPER ABDOMEN: Normal. OTHER FINDINGS: Satisfactory position ventilatory, nasogastric apparatus. IMPRESSION: Satisfactory position endotracheal tube and nasogastric tube. Decrease in bilateral pleural effusions and infiltrates.
--- NOTE | 2018-07-19 11:02 | RAD ---
Date of service: 07/19/2018 PROCEDURE: CHEST RADIOGRAPH, 1 VIEW HISTORY: Intubated COMPARISON: 07/18/2018 FINDINGS: LUNGS: Ill-defined left-sided opacity unchanged from earlier examination. Nonspecific. Patchy opacity at right base, unchanged. PLEURA: No definite pleural effusion. Extreme left costophrenic angle not included on this film. No pneumothorax. CARDIOVASCULAR: No aortic atherosclerotic calcification present. Normal heart size. ET tube and NG tube are grossly unchanged. NG tube evaluation is limited by underpenetration. OSSEOUS STRUCTURES: No significant abnormalities. VISUALIZED UPPER ABDOMEN: Normal. OTHER FINDINGS: None. IMPRESSION: Ill-defined left-sided opacity. Patchy right basilar opacity. ET tube and NG tube noted. No significant interval change.
[2018-07-19] MEDS ORDERED: Lidocaine Hydrochloride 1% 10 ML ONE (11:31)
--- NOTE | 2018-07-19 11:45 | CP.PCM.PN ---
Subjective - Date & Time of Evaluation Date of Evaluation: 07/19/18 Time of Evaluation: 09:00 - Subjective Subjective: intubated afebrile alert Objective - Vital Signs/Intake and Output Vital Signs (last 24 hours): Temp Pulse Resp BP Pulse Ox 98.2 F 81 34 H 117/72 97 07/19/18 08:00 07/19/18 10:54 07/19/18 10:54 07/19/18 10:54 07/19/18 10:54 Intake and Output: 07/19/18 07/19/18 06:59 18:59 Intake Total 1090.8 300 Output Total 800 Balance 290.8 300 - Medications Medications: Current Medications Acetaminophen (Tylenol 650mg/20.3ml Solution Ud) 650 mg NG Q6 PRN PRN Reason: Fever>100.4F Last Admin: 07/17/18 04:05 Dose: 650 mg Albuterol/Ipratropium (Duoneb 3 Mg/0.5 Mg (3 Ml) Ud) 3 ml INH RQ6 [facility] Last Admin: 07/19/18 07:30 Dose: 3 ml Aspirin (Ecotrin) 81 mg PO DAILY [facility] Last Admin: 07/19/18 09:27 Dose: 81 mg Atorvastatin Calcium (Lipitor) 20 mg PO HS [facility] Last Admin: 07/18/18 22:42 Dose: 20 mg Docusate Sodium (Colace Liquid) 100 mg PO BID [facility] Last Admin: 07/19/18 09:27 Dose: 100 mg Folic Acid (Folic Acid) 1 mg NG DAILY [facility] Last Admin: 07/19/18 09:28 Dose: 1 mg Furosemide (Lasix) 60 mg IVP BID [facility] Stop: 07/21/18 17:01 Last Admin: 07/19/18 09:29 Dose: 60 mg Doxycycline Hyclate 100 mg/ (Sodium Chloride) 100 mls @ 100 mls/hr IVPB Q12 [facility]; Protocol Last Admin: 07/19/18 09:35 Dose: 100 mls/hr Vancomycin HCl 750 mg/ Sodium (Chloride) 250 mls @ 166.667 mls/hr IVPB Q12H [facility]; Protocol Last Admin: 07/19/18 01:31 Dose: 166.667 mls/hr Heparin Sodium/Dextrose (Heparin 25,000 Units/250ml In D5w) 25,000 units in 250 mls @ 14 mls/hr IV .[id number] [facility]; Protocol Last Admin: 07/19/18 09:36 Dose: 14 mls/hr Lactic Acid (Lac-Hydrin 12% Lotion (225 G)) 1 applic TOP TID [facility] Last Admin: 07/19/18 09:29 Dose: 1 applic Lactulose (Enulose) 10 gm PO DAILY PRN PRN Reason: Constipation Metolazone (Zaroxolyn) 5 mg PO BID [facility] Stop: 07/20/18 17:01 Last Admin: 07/19/18 09:38 Dose: 5 mg Nystatin (Nystop Topical Powder) 1 applic TOP TID [facility] Last Admin: 07/19/18 09:30 Dose: 1 applic Ondansetron HCl (Zofran Inj) 4 mg IVP Q6H PRN PRN Reason: Nausea/Vomiting Pantoprazole Sodium (Protonix Inj) 40 mg IVP DAILY [facility] Last Admin: 07/19/18 09:34 Dose: 40 mg Potassium Chloride (Potassium Chloride Oral Soln) 20 meq NG BID [facility] Stop: 07/21/18 17:01 Last Admin: 07/19/18 09:31 Dose: 20 meq Potassium Chloride (Potassium Chloride Oral Soln) 40 meq PO Q8H [facility] Stop: 07/19/18 15:46 Last Admin: 07/19/18 09:33 Dose: 40 meq Pyridostigmine [place] (Mestinon Tab) 30 mg PO TID [facility] Last Admin: 07/19/18 09:30 Dose: 30 mg Sennosides (Senokot Tab) 8.6 mg PO BID [facility] Last Admin: 07/19/18 09:34 Dose: 8.6 mg Thiamine HCl (Vitamin B1 Tab) 100 mg NG DAILY [facility] Last Admin: 07/19/18 09:38 Dose: 100 mg - Labs Labs: 07/19/18 05:18 07/19/18 05:18 PT 12.6 Seconds (9.8-13.1) 07/08/18 00:19 INR 1.1 07/08/18 00:19 APTT 54.8 Seconds (25.6-37.1) H 07/19/18 05:18 - Constitutional Appears: Non-toxic, No Acute Distress, Cachectic, Chronically Ill - Head Exam Head Exam: ATRAUMATIC, NORMAL INSPECTION, NORMOCEPHALIC - Eye Exam Eye Exam: EOMI, Normal appearance, PERRL Pupil Exam: NORMAL ACCOMODATION, PERRL - ENT Exam ENT Exam: Mucous Membranes Moist, Normal Exam Additional comments: ETT + - Neck Exam Neck Exam: Full ROM, Normal Inspection. absent: Lymphadenopathy - Respiratory Exam Respiratory Exam: Decreased Breath Sounds, Prolonged Expiratory Phase, Rhonchi - Cardiovascular Exam Cardiovascular Exam: Irregular Rhythm, REGULAR RHYTHM, +S1, +S2. absent: Murmur - GI/Abdominal Exam GI & Abdominal Exam: Soft, Normal Bowel Sounds. absent: Tenderness - Rectal Exam Rectal Exam: Deferred - Exam Exam: NORMAL INSPECTION - Extremities Exam Extremities Exam: Full ROM, Normal Capillary Refill, Normal Inspection. absent: Joint Swelling, Pedal Edema - Back Exam Back Exam: NORMAL INSPECTION - Neurological Exam Neurological Exam: Alert, Awake, CN II-XII Intact, Oriented x3. absent: Normal Gait - Psychiatric Exam Psychiatric exam: Depressed - Skin Skin Exam: Dry, Intact, Normal Color, Warm Assessment and Plan (1) Cellulitis of right lower leg Status: Acute (2) Atrial fibrillation Status: Acute (3) CHF (congestive heart failure) Status: Acute (4) Endotracheally intubated Status: Acute (5) Respiratory distress Status: Acute (6) Respiratory failure with hypoxia and hypercapnia Status: Acute (7) Dependent edema Status: Chronic (8) Pleural effusion, left Status: Suspected (9) Pneumonia Status: Acute (10) COPD (chronic obstructive pulmonary disease) Status: Chronic (11) Sepsis Status: Acute - Assessment and Plan (Free Text) Assessment: s/p thoracentesis recurrent pneumonia severe COPD CHF resp failure cont IV antibiotics
--- NOTE | 2018-07-19 11:49 | PCM.SURG1 ---
Surgeon's Initial Post Op Note - Surgeon's Notes Surgeon: Espinoza Day MD Magnetic Locater: NONE Type of Anesthesia: Local Pre-Operative Diagnosis: Ventilatory failure, pleural effusion Operative Findings: US showed small right and moderate left pleural effusions Post-Operative Diagnosis: Ventilatory failure, pleural effusion Operation Performed: US guided right and left thoracentesis Specimen/Specimens Removed: 550 cc sadia colored fluid right and 700 cc sadia colored fluid left pleural space Estimated Blood Loss: EBL {In ML}: 1 Blood Products Given: N/A Drains Used: No Drains Post-Op Condition: Fair Date of Surgery/Procedure: 07/19/18 Time of Surgery/Procedure: 11:45
[2018-07-19 12:49] LABS: BODY FLUID TYPE PLEURAL/THORACENTESI
[2018-07-19 13:08] LABS: GLUCOSE,BODY FLUID 142 mg/dL (NONE ESTABLISHED)
[2018-07-19 13:30] LABS: BF GROSS APPEARANCE CLOUDY (CLEAR)
[2018-07-19] MEDS: Dexmedetomidine Hydrochloride 400 MCG in Sodium Chloride 0.9% 96 ML IV ONE (13:40)
--- NOTE | 2018-07-19 15:07 | RAD ---
Date of service: 07/19/2018 PROCEDURE: CHEST RADIOGRAPH, 1 VIEW HISTORY: Status post right and left thoracentesis COMPARISON: None available. FINDINGS: LUNGS: Improved aeration, re-expansion of the lungs. PLEURA: No pneumothorax following thoracentesis. CARDIOVASCULAR: No aortic atherosclerotic calcification present. Normal. OSSEOUS STRUCTURES: No significant abnormalities. VISUALIZED UPPER ABDOMEN: Normal. OTHER FINDINGS: None. IMPRESSION: Re-expanded right lung. No demonstrable right pleural effusion. Persistent left pleural effusion, compressive atelectasis left lower lobe status post thoracentesis.
[2018-07-19 15:49] LABS: BODY FLUID MONO/MACROPHAGE 14 % (0-0); BODY FLUID TOTAL COUNT 100 (0-0)
--- NOTE | 2018-07-19 16:41 | CP.PCM.PN ---
Subjective - Date & Time of Evaluation Date of Evaluation: 07/19/18 Time of Evaluation: :22 - Subjective Subjective: Above noted Objective - Vital Signs/Intake and Output Vital Signs (last 24 hours): Temp Pulse Resp BP Pulse Ox 97.2 F L 79 21 104/59 L 93 L 07/19/18 16:00 07/19/18 16:00 07/19/18 16:00 07/19/18 16:00 07/19/18 16:00 Intake and Output: 07/19/18 07/19/18 06:59 18:59 Intake Total 1090.8 750 Output Total 800 Balance 290.8 750 - Medications Medications: Current Medications Acetaminophen (Tylenol 650mg/20.3ml Solution Ud) 650 mg NG Q6 PRN PRN Reason: Fever>100.4F Last Admin: 07/17/18 04:05 Dose: 650 mg Albuterol/Ipratropium (Duoneb 3 Mg/0.5 Mg (3 Ml) Ud) 3 ml INH RQ6 [facility] Last Admin: 07/19/18 14:05 Dose: 3 ml Aspirin (Ecotrin) 81 mg PO DAILY [facility] Last Admin: 07/19/18 09:27 Dose: 81 mg Atorvastatin Calcium (Lipitor) 20 mg PO HS [facility] Last Admin: 07/18/18 22:42 Dose: 20 mg Docusate Sodium (Colace Liquid) 100 mg PO BID [facility] Last Admin: 07/19/18 09:27 Dose: 100 mg Folic Acid (Folic Acid) 1 mg NG DAILY [facility] Last Admin: 07/19/18 09:28 Dose: 1 mg Furosemide (Lasix) 60 mg IVP BID [facility] Stop: 07/21/18 17:01 Last Admin: 07/19/18 09:29 Dose: 60 mg Doxycycline Hyclate 100 mg/ (Sodium Chloride) 100 mls @ 100 mls/hr IVPB Q12 [facility]; Protocol Last Admin: 07/19/18 09:35 Dose: 100 mls/hr Vancomycin HCl 750 mg/ Sodium (Chloride) 250 mls @ 166.667 mls/hr IVPB Q12H [facility]; Protocol Last Admin: 07/19/18 13:35 Dose: 166.667 mls/hr Heparin Sodium/Dextrose (Heparin 25,000 Units/250ml In D5w) 25,000 units in 250 mls @ 14 mls/hr IV .[id number] [facility]; Protocol Last Admin: 07/19/18 09:36 Dose: 14 mls/hr Lactic Acid (Lac-Hydrin 12% Lotion (225 G)) 1 applic TOP TID [facility] Last Admin: 07/19/18 13:33 Dose: 1 applic Lactulose (Enulose) 10 gm PO DAILY PRN PRN Reason: Constipation Metolazone (Zaroxolyn) 5 mg PO BID [facility] Stop: 07/20/18 17:01 Last Admin: 07/19/18 09:38 Dose: 5 mg Nystatin (Nystop Topical Powder) 1 applic TOP TID [facility] Last Admin: 07/19/18 13:34 Dose: 1 applic Ondansetron HCl (Zofran Inj) 4 mg IVP Q6H PRN PRN Reason: Nausea/Vomiting Pantoprazole Sodium (Protonix Inj) 40 mg IVP DAILY [facility] Last Admin: 07/19/18 09:34 Dose: 40 mg Potassium Chloride (Potassium Chloride Oral Soln) 20 meq NG BID [facility] Stop: 07/21/18 17:01 Last Admin: 07/19/18 09:31 Dose: 20 meq Pyridostigmine [place] (Mestinon Tab) 30 mg PO TID [facility] Last Admin: 07/19/18 13:34 Dose: 30 mg Sennosides (Senokot Tab) 8.6 mg PO BID [facility] Last Admin: 07/19/18 09:34 Dose: 8.6 mg Thiamine HCl (Vitamin B1 Tab) 100 mg NG DAILY [facility] Last Admin: 07/19/18 09:38 Dose: 100 mg - Labs Labs: 07/19/18 05:18 07/19/18 05:18 PT 12.6 Seconds (9.8-13.1) 07/08/18 00:19 INR 1.1 07/08/18 00:19 APTT 54.8 Seconds (25.6-37.1) H 07/19/18 05:18 - Respiratory Exam Respiratory Exam: NORMAL BREATHING PATTERN - Cardiovascular Exam Cardiovascular Exam: REGULAR RHYTHM - GI/Abdominal Exam GI & Abdominal Exam: Normal Bowel Sounds Assessment and Plan - Assessment and Plan (Free Text) Assessment: Acute Respiratory Failure Multi lobar pneumonia Bilateral Pleural effusion Hx R Pleural efusion S/P thoracentesis Hx COPD [facility] Smoker ICU Intubated Pulmonary ID Hx CHF Afib S/P TAVR LV fxn good Cardiology anticoagulation Cellulitis RLE improved ABX Hx ANTHONY/ CKD Lasix Nephrology Chronic ETOH ?? HX Abdominal distention improved Colonic ileus ( recurrent ) + FOBT ?? [place] held etiol ?? 2 to L-S surgery pyridostigmine Hx LLE edema cellulitis ?? ecchymosis?? Endovascular consult ??? CT scan done no significant findings Hx Hyperkalemia 2 to Bactrim?? Hold NAMRATA Hx Hypokalemia Hyperkalemia HTN Prediabetes Hx Low back surgery (Severe Spinal Stenosis) Post operative illeus
--- NOTE | 2018-07-19 20:08 | CP.PCM.CON ---
History of Present Illness - History of Present Illness History of Present Illness: 88 yo male seen by me in the past for constipation and ileus. Has done better since being given pyridostigmine and senna. Lately patient having pulmonary issues and increased secretions could be worstenng his clinical status. Patient has had recurring right pulmonary effusions requiring ventilator support and thoracentesis. Review of Systems - Review of Systems Systems not reviewed;Unavailable: Intubated Past Patient History - Infectious Disease Hx of Infectious Diseases: None - Past Medical History & Family History Past Medical History?: Yes - Past Social History Smoking Status: Former Smoker Chewing Tobacco Use: No Cigar Use: No Alcohol: > 2 Drinks/Day Drugs: Denies Home Situation {Lives}: With Family - CARDIAC Hx Atrial Fibrillation: Yes Hx Congestive Heart Failure: Yes Hx Hypercholesterolemia: Yes Hx Hypertension: Yes Hx Peripheral Edema: Yes - PULMONARY Hx Bronchitis: Yes Hx Chronic Obstructive Pulmonary Disease (COPD): Yes Other/Comment: pleural effusion. - NEUROLOGICAL Hx Neurological Disorder: No - HEENT Hx HEENT Problems: No - RENAL Hx Chronic Kidney Disease: No - ENDOCRINE/METABOLIC Hx Endocrine Disorders: No - HEMATOLOGICAL/ONCOLOGICAL Hx Human Immunodeficiency Virus (HIV): No - INTEGUMENTARY Other/Comment: skin lesion recently removed from left infra-ocular area - MUSCULOSKELETAL/RHEUMATOLOGICAL Hx Arthritis: Yes Hx Back Pain: Yes Hx Herniated Disk: Yes - GASTROINTESTINAL Hx Diarrhea: Yes Other/Comment: ileus - GENITOURINARY/GYNECOLOGICAL Hx Genitourinary Disorders: No - PSYCHIATRIC Hx Psychophysiologic Disorder: No - SURGICAL HISTORY Hx Valve Replacement: Yes (TAVR) Other/Comment: Laminectomy L3-L5 05/15/2017 - ANESTHESIA Hx Anesthesia: Yes Hx Anesthesia Reactions: No Hx Malignant Hyperthermia: No Meds Allergies/Adverse Reactions: Allergies Allergy/AdvReac Type Severity Reaction Status Date / Time No Known Allergies Allergy Verified 07/07/18 23:59 - Medications Medications: Current Medications Acetaminophen (Tylenol 650mg/20.3ml Solution Ud) 650 mg NG Q6 PRN PRN Reason: Fever>100.4F Last Admin: 07/17/18 04:05 Dose: 650 mg Albuterol/Ipratropium (Duoneb 3 Mg/0.5 Mg (3 Ml) Ud) 3 ml INH RQ6 [facility] Last Admin: 07/19/18 19:07 Dose: 3 ml Aspirin (Ecotrin) 81 mg PO DAILY [facility] Last Admin: 07/19/18 09:27 Dose: 81 mg Atorvastatin Calcium (Lipitor) 20 mg PO HS [facility] Last Admin: 07/18/18 22:42 Dose: 20 mg Docusate Sodium (Colace Liquid) 100 mg PO BID [facility] Last Admin: 07/19/18 16:54 Dose: Not Given Folic Acid (Folic Acid) 1 mg NG DAILY [facility] Last Admin: 07/19/18 09:28 Dose: 1 mg Furosemide (Lasix) 60 mg IVP BID [facility] Stop: 07/21/18 17:01 Last Admin: 07/19/18 16:57 Dose: 60 mg Doxycycline Hyclate 100 mg/ (Sodium Chloride) 100 mls @ 100 mls/hr IVPB Q12 [facility]; Protocol Last Admin: 07/19/18 09:35 Dose: 100 mls/hr Vancomycin HCl 750 mg/ Sodium (Chloride) 250 mls @ 166.667 mls/hr IVPB Q12H [facility]; Protocol Last Admin: 07/19/18 13:35 Dose: 166.667 mls/hr Heparin Sodium/Dextrose (Heparin 25,000 Units/250ml In D5w) 25,000 units in 250 mls @ 14 mls/hr IV .[id number] [facility]; Protocol Last Titration: 07/19/18 16:00 Dose: 0 mls/hr Lactic Acid (Lac-Hydrin 12% Lotion (225 G)) 1 applic TOP TID [facility] Last Admin: 07/19/18 16:56 Dose: 1 applic Lactulose (Enulose) 10 gm PO DAILY PRN PRN Reason: Constipation Metolazone (Zaroxolyn) 5 mg PO BID [facility] Stop: 07/20/18 17:01 Last Admin: 07/19/18 17:00 Dose: 5 mg Nystatin (Nystop Topical Powder) 1 applic TOP TID [facility] Last Admin: 07/19/18 16:58 Dose: 1 applic Ondansetron HCl (Zofran Inj) 4 mg IVP Q6H PRN PRN Reason: Nausea/Vomiting Pantoprazole Sodium (Protonix Inj) 40 mg IVP DAILY [facility] Last Admin: 07/19/18 09:34 Dose: 40 mg Potassium Chloride (Potassium Chloride Oral Soln) 20 meq NG BID [facility] Stop: 07/21/18 17:01 Last Admin: 07/19/18 16:58 Dose: 20 meq Pyridostigmine [place] (Mestinon Tab) 30 mg PO BID [facility] Sennosides (Senokot Tab) 8.6 mg PO BID [facility] Last Admin: 07/19/18 16:59 Dose: Not Given Thiamine HCl (Vitamin B1 Tab) 100 mg NG DAILY [facility] Last Admin: 07/19/18 09:38 Dose: 100 mg Physical Exam - Constitutional Appears: No Acute Distress - Head Exam Head Exam: ATRAUMATIC - Eye Exam Eye Exam: Normal appearance - ENT Exam ENT Exam: Normal Exam - Neck Exam Neck exam: Positive for: Full Rom - Respiratory Exam Respiratory Exam: Clear to Auscultation Bilateral - Cardiovascular Exam Cardiovascular Exam: REGULAR RHYTHM - GI/Abdominal Exam GI & Abdominal Exam: Normal Bowel Sounds, Soft. absent: Tenderness - Exam External exam: absent: Swelling Results - Vital Signs Recent Vital Signs: Last Vital Signs Temp 97.2 F L 07/19/18 16:00 Pulse 79 07/19/18 18:00 Resp 22 07/19/18 18:00 BP 116/68 07/19/18 18:00 Pulse Ox 96 07/19/18 18:00 - Labs Result Diagrams: 07/19/18 05:18 07/19/18 05:18 Labs: Laboratory Results - last 24 hr 07/17/18 07/18/18 07/19/18 03:59 21:40 04:22 WBC RBC Hgb Hct MCV MCH MCHC RDW Plt Count MPV Neut % (Auto) Lymph % (Auto) [place] % (Auto) Eos % (Auto) Baso % (Auto) Neut # (Auto) Lymph # (Auto) [place] # (Auto) Eos # (Auto) Baso # (Auto) APTT 34.8 pCO2 44 pO2 74 L HCO3 34.9 H ABG pH 7.53 H ABG Total CO2 38.2 H ABG O2 Saturation 98.3 H ABG O2 Content 13.2 L ABG Base Excess 12.8 H ABG Hemoglobin 9.8 L ABG Carboxyhemoglobin 2.0 H POC ABG HHb (Measured) 1.6 ABG Methemoglobin 1.2 ABG O2 Capacity 13.4 L Nam Test Yes A-a O2 Difference 121.0 Hgb O2 Saturation 95.2 Vent Mode A/c Mechanical Rate 18 FiO2 35.0 Tidal Volume 450 PEEP 5 Sodium Potassium Chloride Carbon Dioxide Anion Gap BUN Creatinine Est GFR ( Amer) Est GFR (Non-Af Amer) POC Glucose (mg/dL) 140 H Random Glucose Calcium Phosphorus Magnesium Total Bilirubin AST ALT Alkaline Phosphatase Lactate Dehydrogenase Total Protein Albumin Globulin Albumin/Globulin Ratio Fluid Source Fluid Appearance Fluid WBC Fluid RBC Fluid Tot Cell Count Fluid Neutrophils Fluid Lymphocytes Fld Monocyte/Macrophag Fluid Glucose Fluid Total Protein Fluid LDH Fluid Comment 07/19/18 07/19/18 07/19/18 05:18 05:18 05:18 WBC 10.3 RBC 3.21 L Hgb 9.4 L Hct 28.8 L MCV 89.9 MCH 29.4 MCHC 32.7 L RDW 16.7 H Plt Count 238 MPV 9.4 Neut % (Auto) 72.6 Lymph % (Auto) 12.6 L [place] % (Auto) 12.1 H Eos % (Auto) 1.4 Baso % (Auto) 1.3 Neut # (Auto) 7.5 H Lymph # (Auto) 1.3 [place] # (Auto) 1.2 H Eos # (Auto) 0.1 Baso # (Auto) 0.1 APTT 54.8 H pCO2 pO2 HCO3 ABG pH ABG Total CO2 ABG O2 Saturation ABG O2 Content ABG Base Excess ABG Hemoglobin ABG Carboxyhemoglobin POC ABG HHb (Measured) ABG Methemoglobin ABG O2 Capacity Nam Test A-a O2 Difference Hgb O2 Saturation Vent Mode Mechanical Rate FiO2 Tidal Volume PEEP Sodium 137 Potassium 3.5 L Chloride 95 L Carbon Dioxide 36 H Anion Gap 10 BUN 31 H Creatinine 1.0 Est GFR ( Amer) > 60 Est GFR (Non-Af Amer) > 60 POC Glucose (mg/dL) Random Glucose 139 H Calcium 9.0 Phosphorus 4.0 Magnesium 2.1 Total Bilirubin 0.6 AST 55 ALT 44 Alkaline Phosphatase 93 Lactate Dehydrogenase Total Protein 6.4 Albumin 3.1 L Globulin 3.3 Albumin/Globulin Ratio 1.0 Fluid Source Fluid Appearance Fluid WBC Fluid RBC Fluid Tot Cell Count Fluid Neutrophils Fluid Lymphocytes Fld Monocyte/Macrophag Fluid Glucose Fluid Total Protein Fluid LDH Fluid Comment 07/19/18 07/19/18 07/19/18 10:00 12:16 12:16 WBC RBC Hgb Hct MCV MCH MCHC RDW Plt Count MPV Neut % (Auto) Lymph % (Auto) [place] % (Auto) Eos % (Auto) Baso % (Auto) Neut # (Auto) Lymph # (Auto) [place] # (Auto) Eos # (Auto) Baso # (Auto) APTT pCO2 pO2 HCO3 ABG pH ABG Total CO2 ABG O2 Saturation ABG O2 Content ABG Base Excess ABG Hemoglobin ABG Carboxyhemoglobin POC ABG HHb (Measured) ABG Methemoglobin ABG O2 Capacity Nam Test A-a O2 Difference Hgb O2 Saturation Vent Mode Mechanical Rate FiO2 Tidal Volume PEEP Sodium Potassium Chloride Carbon Dioxide Anion Gap BUN Creatinine Est GFR ( Amer) Est GFR (Non-Af Amer) POC Glucose (mg/dL) Random Glucose Calcium Phosphorus Magnesium Total Bilirubin AST ALT Alkaline Phosphatase Lactate Dehydrogenase 608 Total Protein Albumin Globulin Albumin/Globulin Ratio Fluid Source Pleural/thoracentesi Fluid Appearance Cloudy Fluid WBC 1082.0 H Fluid RBC 5432.0 H Fluid Tot Cell Count 100 H Fluid Neutrophils 78.0 H Fluid Lymphocytes 8.0 H Fld Monocyte/Macrophag 14 H Fluid Glucose 142 Fluid Total Protein Fluid LDH 529 Fluid Comment Dark yellow 07/19/18 12:16 WBC RBC Hgb Hct MCV MCH MCHC RDW Plt Count MPV Neut % (Auto) Lymph % (Auto) [place] % (Auto) Eos % (Auto) Baso % (Auto) Neut # (Auto) Lymph # (Auto) [place] # (Auto) Eos # (Auto) Baso # (Auto) APTT pCO2 pO2 HCO3 ABG pH ABG Total CO2 ABG O2 Saturation ABG O2 Content ABG Base Excess ABG Hemoglobin ABG Carboxyhemoglobin POC ABG HHb (Measured) ABG Methemoglobin ABG O2 Capacity Nam Test A-a O2 Difference Hgb O2 Saturation Vent Mode Mechanical Rate FiO2 Tidal Volume PEEP Sodium Potassium Chloride Carbon Dioxide Anion Gap BUN Creatinine Est GFR ( Amer) Est GFR (Non-Af Amer) POC Glucose (mg/dL) Random Glucose Calcium Phosphorus Magnesium Total Bilirubin AST ALT Alkaline Phosphatase Lactate Dehydrogenase Total Protein Albumin Globulin Albumin/Globulin Ratio Fluid Source Fluid Appearance Fluid WBC Fluid RBC Fluid Tot Cell Count Fluid Neutrophils Fluid Lymphocytes Fld Monocyte/Macrophag Fluid Glucose Fluid Total Protein 2.3 Fluid LDH Fluid Comment Assessment & Plan (1) Abdominal distention Assessment and Plan: Currently abdominal distention has improved. Will reduce pyridostigmine to BID. Continue PM senna. Status: Acute
[2018-07-20] MEDS: Albuterol-Ipratrop 3 mg / 0.5 (3 ml) UD INH SCH ×4 (01:32→19:04)
[2018-07-20 04:44] LABS: ABG ALLEN TEST YES; ARTERIAL BLOOD GAS HCO3 32.1 mmol/L (21-28); ARTERIAL BLOOD GAS O2 SAT 98.8 % (95-98); ARTERIAL BLOOD GAS PCO2 43 mm/Hg (35-45); ARTERIAL BLOOD GAS PO2 72 mm/Hg (80-100); ARTERIAL BLOOD GAS TCO2 34.8 mmol/L (22-28)
[2018-07-20] MEDS: Dexmedetomidine Hydrochloride 400 MCG in Sodium Chloride 0.9% 96 ML IV ONE ×2 (05:01→10:30)
[2018-07-20 07:53] LABS: BASO # 0.1 K/uL (0.0-0.2); BASO % 1.1 % (0.0-2.0); EOS # 0.2 K/uL (0.0-0.7); EOS % 1.4 % (0.0-4.0); HEMOGLOBIN 9.7 g/dL (12.0-18.0); LYMPH # 1.4 K/uL (1.0-4.3); MEAN CELL VOLUME 89.1 fl (80.0-94.0); MEAN CORPUSCULAR HEMOGLOBIN 28.8 pg (27.0-31.0); MEAN CORPUSCULAR HGB CONC 32.3 g/dL (33.0-37.0); MEAN PLATELET VOLUME 9.6 fl (7.2-11.7); MONO # 1.3 K/uL (0.0-0.8); MONO % 11.6 % (0.0-10.0); NEUT # 7.9 K/uL (1.8-7.0); NEUT % 72.9 % (50.0-75.0); RBC 3.37 Mil/uL (4.40-5.90); RED CELL DISTRIBUTION WIDTH 16.4 % (11.5-14.5); WHITE BLOOD COUNT 10.9 K/uL (4.8-10.8)
[2018-07-20 08:15] LABS: ALBUMIN 3.2 g/dL (3.5-5.0); ALT/SGPT 61 U/L (21-72); AST/SGOT 61 U/L (17-59); BLOOD UREA NITROGEN 37 mg/dl (9-20); CALCIUM 8.7 mg/dL (8.4-10.2); GFR NON-AFRICAN AMERICAN > 60
--- NOTE | 2018-07-20 08:26 | CP.CCUPN ---
<Yumi Bang - Last Filed: 07/20/18 11:28> CCU Subjective - Physician Review Subjective (Free Text): Over the course of the weekend, patient has remained intubated, and was started on Precedex Well tolerated thus far Patient underwent chest tube (Pigtail cath) on 07/18 for CXR findings sig for pleural effusion b/l 150cc drained Subsequently underwent thoracentesis with IR draining R 550cc and L 700cc Fluid is exudative via LDH analysis Patient seen and examined by bedside this AM Currently, patient is on CPAP on vent with PEEP 5 and FiO2 30 Weaning trials today, potential extubation later today if tolerated Heart rate a fib on monitor, rate 80's-90;s Awake and alert, and able to answer questions by nodding Assessment/Plan: 1. Acute respiratory failure, hypoxia, hypercarbia -hx of CHF and COPD -vent settings adjusted, per pulmo, currently tolerating CPAP -will continue to wean off as tolerated, slow progress -c.w metolazone to help with diuresis 2. Pneumonia -improved at this time given normal procalcitonin, no leukocytosis and remains afebrile -on Vanc and doxy -ID on board 3. Pleural effusion -improving -s/p chest tube 07/18 and thoracentesis 07/19 -Fluid sig for exudative per LDH -f/w fluid cultures 4. Cellulitis, RLE -improved/resolved -on doxy and Vanc 5. Acute kidney injury -likely from sepsis, hypoxia -improved -nephrology on board 6. Anasarca -improved fluid balance -peripheral edema improved at this time -nephrology on board; c/w Lasix and metalozone 7. chronic a fib -cardiology on board -rate controlled and on heparin 8. Ileus/constipation -GI consulted - pyridostigmine to BID. Continue PM senna 9. Dvt prolx -on heparin drip CCU Objective - Vital Signs / Intake & Output Vital Signs (Last 4 hours): Vital Signs Pulse Resp BP Pulse Ox 07/20/18 06:00 79 23 115/69 95 07/20/18 05:00 87 23 107/60 96 Intake and Output (Last 8hrs): Intake & Output 07/19/18 07/20/18 07/20/18 22:59 06:59 14:59 Intake Total 1466 790 Output Total 2800 650 Balance -1334 140 Weight 81.647 kg Intake: IV 286 0 Intake, Piggyback 100 250 Tube Feeding 880 440 Free Water Flush 200 100 Output: Urine 2800 450 Urethral (Hyde) 2800 450 Stool 200 Other: # Bowel Movements 1 - Physical Exam Head: Positive for: Atraumatic Pupils: Positive for: PERRL Mouth: Positive for: Other (orally intubated) Respiratory/Chest: Positive for: Good Air Exchange, Rhonchi, Other (Rales on B/L lower lung field and left lung). Negative for: Respiratory Distress, Accessory Muscle Use, Wheezes, Tachypneic Cardiovascular: Positive for: Normal S1, S2, Irregular Rhythm Abdomen: Positive for: Distention, Normal Bowel Sounds. Negative for: Tenderness, Peritoneal Signs Upper Extremity: Positive for: Normal Inspection Lower Extremity: Positive for: Edema (1+) Skin: Positive for: Warm, Other (RLE mildly more erythematous then LLE, NT ) Psychiatric: Negative for: Alert - Medications Active Medications: Active Medications Generic Name Dose Route Start Last Admin Trade Name Freq PRN Reason Stop Dose Admin Acetaminophen 650 mg 07/08/18 08:01 07/17/18 04:05 Tylenol 650mg/20.3ml Solution Ud NG 650 mg Q6 PRN Administration Fever>100.4F Albuterol/Ipratropium 3 ml 07/08/18 14:00 07/20/18 07:59 Duoneb 3 Mg/0.5 Mg (3 Ml) Ud INH 3 ml RQ6 LISSA Administration Aspirin 81 mg 07/08/18 09:00 07/19/18 09:27 Ecotrin PO 81 mg DAILY LISSA Administration Atorvastatin Calcium 20 mg 07/08/18 22:00 07/19/18 21:28 Lipitor PO 20 mg HS LISSA Administration Docusate Sodium 100 mg 07/16/18 17:00 07/19/18 16:54 Colace Liquid PO Not Given BID LISSA Folic Acid 1 mg 07/08/18 11:15 07/19/18 09:28 Folic Acid NG 1 mg DAILY LISSA Administration Furosemide 60 mg 07/18/18 17:00 07/19/18 16:57 Lasix IVP 07/21/18 17:01 60 mg BID LISSA Administration Doxycycline Hyclate 100 mg/ 100 mls @ 100 mls/hr 07/17/18 09:45 07/19/18 20:10 Sodium Chloride IVPB 100 mls/hr Q12 LISSA Administration Protocol Vancomycin HCl 750 mg/ Sodium 250 mls @ 166.667 mls/hr 07/19/18 01:30 07/20/18 02:00 Chloride IVPB 166.667 mls/hr Q12H LISSA Administration Protocol Heparin Sodium/Dextrose 25,000 units in 250 mls @ 14 mls/hr 07/19/18 05:15 07/20/18 01:41 Heparin 25,000 Units/250ml In D5w IV 12 mls/hr .[id number] LISSA Titration Protocol Dexmedetomidine HCl 400 mcg/ 100 mls @ 7.04 mls/hr 07/19/18 21:13 07/20/18 05:01 Sodium Chloride IV 07/20/18 11:25 0.2 mcg/kg/hr .[id number] ONE 4.69 mls/hr Administration Protocol 0.3 MCG/KG/HR Lactic Acid 1 applic 07/08/18 09:00 07/19/18 16:56 Lac-Hydrin 12% Lotion (225 G) TOP 1 applic TID LISSA Administration Lactulose 10 gm 07/08/18 03:46 Enulose PO DAILY PRN Constipation Metolazone 5 mg 07/18/18 17:00 07/19/18 17:00 Zaroxolyn PO 07/20/18 17:01 5 mg BID LISSA Administration Nystatin 1 applic 07/08/18 13:00 07/19/18 16:58 Nystop Topical Powder TOP 1 applic TID LISSA Administration Ondansetron HCl 4 mg 07/08/18 03:44 Zofran Inj IVP Q6H PRN Nausea/Vomiting Pantoprazole Sodium 40 mg 07/17/18 09:00 07/19/18 09:34 Protonix Inj IVP 40 mg DAILY LISSA Administration Potassium Chloride 20 meq 07/18/18 17:00 07/19/18 16:58 Potassium Chloride Oral Soln NG 07/21/18 17:01 20 meq BID LISSA Administration Pyridostigmine [place] 30 mg 07/20/18 09:00 Mestinon Tab PO BID LISSA Sennosides 8.6 mg 07/08/18 09:00 07/19/18 16:59 Senokot Tab PO Not Given BID [facility] Thiamine HCl 100 mg 07/08/18 11:15 07/19/18 09:38 Vitamin B1 Tab NG 100 mg DAILY LISSA Administration - Patient Studies Lab Studies: Microbiology Studies 07/19/18 12:16 Gram Stain - Final Pleural Fluid 07/17/18 13:00 Gram Stain - Final Trachasp Sputum Culture - Final Yeast Species Lab Studies 07/20/18 07/20/18 07/20/18 Range/Units 07:15 07:15 07:15 WBC 10.9 H (4.8-10.8) K/uL RBC 3.37 L (4.40-5.90) Mil/uL Hgb 9.7 L (12.0-18.0) g/dL Hct 30.0 L (35.0-51.0) % MCV 89.1 (80.0-94.0) fl MCH 28.8 (27.0-31.0) pg MCHC 32.3 L (33.0-37.0) g/dL RDW 16.4 H (11.5-14.5) % Plt Count 249 (130-400) K/uL MPV 9.6 (7.2-11.7) fl Neut % (Auto) 72.9 (50.0-75.0) % Lymph % (Auto) 13.0 L (20.0-40.0) % [place] % (Auto) 11.6 H (0.0-10.0) % Eos % (Auto) 1.4 (0.0-4.0) % Baso % (Auto) 1.1 (0.0-2.0) % Neut # (Auto) 7.9 H (1.8-7.0) K/uL Lymph # (Auto) 1.4 (1.0-4.3) K/uL [place] # (Auto) 1.3 H (0.0-0.8) K/uL Eos # (Auto) 0.2 (0.0-0.7) K/uL Baso # (Auto) 0.1 (0.0-0.2) K/uL APTT 50.7 H (25.6-37.1) Seconds pCO2 (35-45) mm/Hg pO2 (80-100) mm/Hg HCO3 (21-28) mmol/L ABG pH (7.35-7.45) ABG Total CO2 (22-28) mmol/L ABG O2 Saturation (95-98) % ABG Base Excess (-2.0-3.0) mmol/L Nam Test ABG Potassium (3.6-5.2) mmol/L A-a O2 Difference mm/Hg Sodium 138 (132-148) mmol/L Chloride 98 (98-107) mmol/L Glucose (75-110) mg/dL Lactate (0.7-2.1) mmol/L Vent Mode Mechanical Rate FiO2 % Tidal Volume PEEP Potassium 4.3 (3.6-5.0) MMOL/L Carbon Dioxide 33 H (22-30) mmol/L Anion Gap 11 (10-20) BUN 37 H (9-20) mg/dl Creatinine 1.1 (0.8-1.5) mg/dl Est GFR ( Amer) > 60 Est GFR (Non-Af Amer) > 60 Random Glucose 149 H (75-110) mg/dL Calcium 8.7 (8.4-10.2) mg/dL Phosphorus 5.1 H (2.5-4.5) mg/dl Magnesium 2.1 (1.6-2.3) MG/DL Total Bilirubin 0.6 (0.2-1.3) mg/dl AST 61 H (17-59) U/L ALT 61 (21-72) U/L Alkaline Phosphatase 114 (38-126) U/L Lactate Dehydrogenase (313-618) U/L Total Protein 6.3 (6.3-8.2) G/DL Albumin 3.2 L (3.5-5.0) g/dL Globulin 3.1 (2.2-3.9) gm/dL Albumin/Globulin Ratio 1.0 (1.0-2.1) Arterial Blood Potassium (3.6-5.2) mmol/L Fluid Source Fluid Appearance (CLEAR) Fluid WBC (0.0-300.0) /mm3 Fluid RBC (0.0-0.0) /mm3 Fluid Tot Cell Count (0-0) Fluid Neutrophils (0-0) % Fluid Lymphocytes (0-0) % Fld Monocyte/Macrophag (0-0) % Fluid Glucose (NONE ESTABLISHED) mg/dL Fluid Total Protein (NONE ESTABLISHED) g/dL Fluid LDH (NONE ESTABLISHED) IU Fluid Comment 07/20/18 07/20/18 07/19/18 Range/Units 04:37 00:55 12:16 WBC (4.8-10.8) K/uL RBC (4.40-5.90) Mil/uL Hgb (12.0-18.0) g/dL Hct (35.0-51.0) % MCV (80.0-94.0) fl MCH (27.0-31.0) pg MCHC (33.0-37.0) g/dL RDW (11.5-14.5) % Plt Count (130-400) K/uL MPV (7.2-11.7) fl Neut % (Auto) (50.0-75.0) % Lymph % (Auto) (20.0-40.0) % [place] % (Auto) (0.0-10.0) % Eos % (Auto) (0.0-4.0) % Baso % (Auto) (0.0-2.0) % Neut # (Auto) (1.8-7.0) K/uL Lymph # (Auto) (1.0-4.3) K/uL [place] # (Auto) (0.0-0.8) K/uL Eos # (Auto) (0.0-0.7) K/uL Baso # (Auto) (0.0-0.2) K/uL APTT 33.6 (25.6-37.1) Seconds pCO2 43 (35-45) mm/Hg pO2 72 L (80-100) mm/Hg HCO3 32.1 H (21-28) mmol/L ABG pH 7.50 H (7.35-7.45) ABG Total CO2 34.8 H (22-28) mmol/L ABG O2 Saturation 98.8 H (95-98) % ABG Base Excess 9.2 H (-2.0-3.0) mmol/L Nam Test Yes ABG Potassium 4.4 (3.6-5.2) mmol/L A-a O2 Difference 88.0 mm/Hg Sodium 138.0 (132-148) mmol/L Chloride 102.0 (98-107) mmol/L Glucose 149 H (75-110) mg/dL Lactate 1.0 (0.7-2.1) mmol/L Vent Mode A/c Mechanical Rate 18 FiO2 30.0 % Tidal Volume 450 PEEP 5 Potassium (3.6-5.0) MMOL/L Carbon Dioxide (22-30) mmol/L Anion Gap (10-20) BUN (9-20) mg/dl Creatinine (0.8-1.5) mg/dl Est GFR ( Amer) Est GFR (Non-Af Amer) Random Glucose (75-110) mg/dL Calcium (8.4-10.2) mg/dL Phosphorus (2.5-4.5) mg/dl Magnesium (1.6-2.3) MG/DL Total Bilirubin (0.2-1.3) mg/dl AST (17-59) U/L ALT (21-72) U/L Alkaline Phosphatase (38-126) U/L Lactate Dehydrogenase (313-618) U/L Total Protein (6.3-8.2) G/DL Albumin (3.5-5.0) g/dL Globulin (2.2-3.9) gm/dL Albumin/Globulin Ratio (1.0-2.1) Arterial Blood Potassium 4.4 (3.6-5.2) mmol/L Fluid Source Fluid Appearance (CLEAR) Fluid WBC (0.0-300.0) /mm3 Fluid RBC (0.0-0.0) /mm3 Fluid Tot Cell Count (0-0) Fluid Neutrophils (0-0) % Fluid Lymphocytes (0-0) % Fld Monocyte/Macrophag (0-0) % Fluid Glucose (NONE ESTABLISHED) mg/dL Fluid Total Protein 2.3 (NONE ESTABLISHED) g/dL Fluid LDH (NONE ESTABLISHED) IU Fluid Comment 07/19/18 07/19/18 07/19/18 Range/Units 12:16 12:16 10:00 WBC (4.8-10.8) K/uL RBC (4.40-5.90) Mil/uL Hgb (12.0-18.0) g/dL Hct (35.0-51.0) % MCV (80.0-94.0) fl MCH (27.0-31.0) pg MCHC (33.0-37.0) g/dL RDW (11.5-14.5) % Plt Count (130-400) K/uL MPV (7.2-11.7) fl Neut % (Auto) (50.0-75.0) % Lymph % (Auto) (20.0-40.0) % [place] % (Auto) (0.0-10.0) % Eos % (Auto) (0.0-4.0) % Baso % (Auto) (0.0-2.0) % Neut # (Auto) (1.8-7.0) K/uL Lymph # (Auto) (1.0-4.3) K/uL [place] # (Auto) (0.0-0.8) K/uL Eos # (Auto) (0.0-0.7) K/uL Baso # (Auto) (0.0-0.2) K/uL APTT (25.6-37.1) Seconds pCO2 (35-45) mm/Hg pO2 (80-100) mm/Hg HCO3 (21-28) mmol/L ABG pH (7.35-7.45) ABG Total CO2 (22-28) mmol/L ABG O2 Saturation (95-98) % ABG Base Excess (-2.0-3.0) mmol/L Nam Test ABG Potassium (3.6-5.2) mmol/L A-a O2 Difference mm/Hg Sodium (132-148) mmol/L Chloride (98-107) mmol/L Glucose (75-110) mg/dL Lactate (0.7-2.1) mmol/L Vent Mode Mechanical Rate FiO2 % Tidal Volume PEEP Potassium (3.6-5.0) MMOL/L Carbon Dioxide (22-30) mmol/L Anion Gap (10-20) BUN (9-20) mg/dl Creatinine (0.8-1.5) mg/dl Est GFR ( Amer) Est GFR (Non-Af Amer) Random Glucose (75-110) mg/dL Calcium (8.4-10.2) mg/dL Phosphorus (2.5-4.5) mg/dl Magnesium (1.6-2.3) MG/DL Total Bilirubin (0.2-1.3) mg/dl AST (17-59) U/L ALT (21-72) U/L Alkaline Phosphatase (38-126) U/L Lactate Dehydrogenase 608 (313-618) U/L Total Protein (6.3-8.2) G/DL Albumin (3.5-5.0) g/dL Globulin (2.2-3.9) gm/dL Albumin/Globulin Ratio (1.0-2.1) Arterial Blood Potassium (3.6-5.2) mmol/L Fluid Source Pleural/thoracentesi Fluid Appearance Cloudy (CLEAR) Fluid WBC 1082.0 H (0.0-300.0) /mm3 Fluid RBC 5432.0 H (0.0-0.0) /mm3 Fluid Tot Cell Count 100 H (0-0) Fluid Neutrophils 78.0 H (0-0) % Fluid Lymphocytes 8.0 H (0-0) % Fld Monocyte/Macrophag 14 H (0-0) % Fluid Glucose 142 (NONE ESTABLISHED) mg/dL Fluid Total Protein (NONE ESTABLISHED) g/dL Fluid LDH 529 (NONE ESTABLISHED) IU Fluid Comment Dark yellow Laboratory Results - last 24 hr 07/19/18 07/19/18 07/19/18 10:00 12:16 12:16 WBC RBC Hgb Hct MCV MCH MCHC RDW Plt Count MPV Neut % (Auto) Lymph % (Auto) [place] % (Auto) Eos % (Auto) Baso % (Auto) Neut # (Auto) Lymph # (Auto) [place] # (Auto) Eos # (Auto) Baso # (Auto) APTT pCO2 pO2 HCO3 ABG pH ABG Total CO2 ABG O2 Saturation ABG Base Excess Nam Test ABG Potassium A-a O2 Difference Sodium Chloride Glucose Lactate Vent Mode Mechanical Rate FiO2 Tidal Volume PEEP Potassium Carbon Dioxide Anion Gap BUN Creatinine Est GFR ( Amer) Est GFR (Non-Af Amer) Random Glucose Calcium Phosphorus Magnesium Total Bilirubin AST ALT Alkaline Phosphatase Lactate Dehydrogenase 608 Total Protein Albumin Globulin Albumin/Globulin Ratio Arterial Blood Potassium Fluid Source Pleural/thoracentesi Fluid Appearance Cloudy Fluid WBC 1082.0 H Fluid RBC 5432.0 H Fluid Tot Cell Count 100 H Fluid Neutrophils 78.0 H Fluid Lymphocytes 8.0 H Fld Monocyte/Macrophag 14 H Fluid Glucose 142 Fluid Total Protein Fluid LDH 529 Fluid Comment Dark yellow 07/19/18 07/20/18 07/20/18 12:16 00:55 04:37 WBC RBC Hgb Hct MCV MCH MCHC RDW Plt Count MPV Neut % (Auto) Lymph % (Auto) [place] % (Auto) Eos % (Auto) Baso % (Auto) Neut # (Auto) Lymph # (Auto) [place] # (Auto) Eos # (Auto) Baso # (Auto) APTT 33.6 pCO2 43 pO2 72 L HCO3 32.1 H ABG pH 7.50 H ABG Total CO2 34.8 H ABG O2 Saturation 98.8 H ABG Base Excess 9.2 H Nam Test Yes ABG Potassium 4.4 A-a O2 Difference 88.0 Sodium 138.0 Chloride 102.0 Glucose 149 H Lactate 1.0 Vent Mode A/c Mechanical Rate 18 FiO2 30.0 Tidal Volume 450 PEEP 5 Potassium Carbon Dioxide Anion Gap BUN Creatinine Est GFR ( Amer) Est GFR (Non-Af Amer) Random Glucose Calcium Phosphorus Magnesium Total Bilirubin AST ALT Alkaline Phosphatase Lactate Dehydrogenase Total Protein Albumin Globulin Albumin/Globulin Ratio Arterial Blood Potassium 4.4 Fluid Source Fluid Appearance Fluid WBC Fluid RBC Fluid Tot Cell Count Fluid Neutrophils Fluid Lymphocytes Fld Monocyte/Macrophag Fluid Glucose Fluid Total Protein 2.3 Fluid LDH Fluid Comment 07/20/18 07/20/18 07/20/18 07:15 07:15 07:15 WBC 10.9 H RBC 3.37 L Hgb 9.7 L Hct 30.0 L MCV 89.1 MCH 28.8 MCHC 32.3 L RDW 16.4 H Plt Count 249 MPV 9.6 Neut % (Auto) 72.9 Lymph % (Auto) 13.0 L [place] % (Auto) 11.6 H Eos % (Auto) 1.4 Baso % (Auto) 1.1 Neut # (Auto) 7.9 H Lymph # (Auto) 1.4 [place] # (Auto) 1.3 H Eos # (Auto) 0.2 Baso # (Auto) 0.1 APTT 50.7 H pCO2 pO2 HCO3 ABG pH ABG Total CO2 ABG O2 Saturation ABG Base Excess Nam Test ABG Potassium A-a O2 Difference Sodium 138 Chloride 98 Glucose Lactate Vent Mode Mechanical Rate FiO2 Tidal Volume PEEP Potassium 4.3 Carbon Dioxide 33 H Anion Gap 11 BUN 37 H Creatinine 1.1 Est GFR ( Amer) > 60 Est GFR (Non-Af Amer) > 60 Random Glucose 149 H Calcium 8.7 Phosphorus 5.1 H Magnesium 2.1 Total Bilirubin 0.6 AST 61 H ALT 61 Alkaline Phosphatase 114 Lactate Dehydrogenase Total Protein 6.3 Albumin 3.2 L Globulin 3.1 Albumin/Globulin Ratio 1.0 Arterial Blood Potassium Fluid Source Fluid Appearance Fluid WBC Fluid RBC Fluid Tot Cell Count Fluid Neutrophils Fluid Lymphocytes Fld Monocyte/Macrophag Fluid Glucose Fluid Total Protein Fluid LDH Fluid Comment Radiology Impressions: Radiology Impressions Chest X-Ray 07/18/18 19:00 IMPRESSION: Satisfactory position endotracheal tube and nasogastric tube. Decrease in bilateral pleural effusions and infiltrates. Chest X-Ray 07/19/18 06:00 IMPRESSION: Ill-defined left-sided opacity. Patchy right basilar opacity. ET tube and NG tube noted. No significant interval change. Chest X-Ray 07/19/18 11:47 IMPRESSION: Re-expanded right lung. No demonstrable right pleural effusion. Persistent left pleural effusion, compressive atelectasis left lower lobe status post thoracentesis. Fingerstick Blood Sugar Results: 140 <Latef,Angel M - Last Filed: 07/20/18 16:17> CCU Objective - Vital Signs / Intake & Output Vital Signs (Last 4 hours): Vital Signs Pulse Resp BP Pulse Ox 07/20/18 15:00 82 21 110/53 L 97 07/20/18 14:00 82 21 110/64 97 07/20/18 13:00 81 38 H 103/60 96 Intake and Output (Last 8hrs): Intake & Output 07/20/18 07/20/18 07/20/18 06:59 14:59 22:59 Intake Total 790 550 Output Total 650 Balance 140 550 Weight 180 lb Intake: IV 0 100 Intake, Piggyback 250 350 Tube Feeding 440 Free Water Flush 100 100 Output: Urine 450 Urethral (Hyde) 450 Stool 200 - Medications Active Medications: Active Medications Generic Name Dose Route Start Last Admin Trade Name Freq PRN Reason Stop Dose Admin Acetaminophen 650 mg 07/08/18 08:01 07/17/18 04:05 Tylenol 650mg/20.3ml Solution Ud NG 650 mg Q6 PRN Administration Fever>100.4F Albuterol/Ipratropium 3 ml 07/08/18 14:00 07/20/18 13:59 Duoneb 3 Mg/0.5 Mg (3 Ml) Ud INH 3 ml RQ6 LISSA Administration Aspirin 81 mg 07/08/18 09:00 07/20/18 10:26 Ecotrin PO 81 mg DAILY LISSA Administration Atorvastatin Calcium 20 mg 07/08/18 22:00 07/19/18 21:28 Lipitor PO 20 mg HS LISSA Administration Docusate Sodium 100 mg 07/16/18 17:00 07/20/18 10:25 Colace Liquid PO 100 mg BID LISSA Administration Folic Acid 1 mg 07/08/18 11:15 07/20/18 10:26 Folic Acid NG 1 mg DAILY LISSA Administration Furosemide 40 mg 07/21/18 09:00 Lasix IVP DAILY LISSA Doxycycline Hyclate 100 mg/ 100 mls @ 100 mls/hr 07/17/18 09:45 07/20/18 10:33 Sodium Chloride IVPB 100 mls/hr Q12 LISSA Administration Protocol Vancomycin HCl 750 mg/ Sodium 250 mls @ 166.667 mls/hr 07/19/18 01:30 07/20/18 12:29 Chloride IVPB 166.667 mls/hr Q12H LISSA Administration Protocol Heparin Sodium/Dextrose 25,000 units in 250 mls @ 14 mls/hr 07/19/18 05:15 07/20/18 01:41 Heparin 25,000 Units/250ml In D5w IV 12 mls/hr .[id number] LISSA Titration Protocol Lactic Acid 1 applic 07/08/18 09:00 07/20/18 12:11 Lac-Hydrin 12% Lotion (225 G) TOP 1 applic TID LISSA Administration Lactulose 10 gm 07/08/18 03:46 Enulose PO DAILY PRN Constipation Nystatin 1 applic 07/08/18 13:00 07/20/18 12:13 Nystop Topical Powder TOP 1 applic TID LISSA Administration Ondansetron HCl 4 mg 07/08/18 03:44 Zofran Inj IVP Q6H PRN Nausea/Vomiting Pantoprazole Sodium 40 mg 07/17/18 09:00 07/20/18 10:32 Protonix Inj IVP 40 mg DAILY LISSA Administration Potassium Chloride 20 meq 07/18/18 17:00 07/20/18 10:30 Potassium Chloride Oral Soln NG 07/21/18 17:01 20 meq BID LISSA Administration Pyridostigmine [place] 30 mg 07/20/18 09:00 07/20/18 10:27 Mestinon Tab PO 30 mg BID LISSA Administration Sennosides 8.6 mg 07/08/18 09:00 07/20/18 10:33 Senokot Tab PO 8.6 mg BID LISSA Administration Thiamine HCl 100 mg 07/08/18 11:15 07/20/18 10:34 Vitamin B1 Tab NG 100 mg DAILY LISSA Administration - Patient Studies Lab Studies: Microbiology Studies 07/19/18 12:16 Gram Stain - Final Pleural Fluid Lab Studies 07/20/18 07/20/18 07/20/18 Range/Units 10:08 07:15 07:15 WBC (4.8-10.8) K/uL RBC (4.40-5.90) Mil/uL Hgb (12.0-18.0) g/dL Hct (35.0-51.0) % MCV (80.0-94.0) fl MCH (27.0-31.0) pg MCHC (33.0-37.0) g/dL RDW (11.5-14.5) % Plt Count (130-400) K/uL MPV (7.2-11.7) fl Neut % (Auto) (50.0-75.0) % Lymph % (Auto) (20.0-40.0) % [place] % (Auto) (0.0-10.0) % Eos % (Auto) (0.0-4.0) % Baso % (Auto) (0.0-2.0) % Neut # (Auto) (1.8-7.0) K/uL Lymph # (Auto) (1.0-4.3) K/uL [place] # (Auto) (0.0-0.8) K/uL Eos # (Auto) (0.0-0.7) K/uL Baso # (Auto) (0.0-0.2) K/uL APTT 50.7 H (25.6-37.1) Seconds pCO2 44 (35-45) mm/Hg pO2 71 L (80-100) mm/Hg HCO3 32.8 H (21-28) mmol/L ABG pH 7.50 H (7.35-7.45) ABG Total CO2 35.7 H (22-28) mmol/L ABG O2 Saturation 97.9 (95-98) % ABG O2 Content 13.3 L (15-23) ML/dL ABG Base Excess 10.1 H (-2.0-3.0) mmol/L ABG Hemoglobin 9.9 L (11.7-17.4) g/dL ABG Carboxyhemoglobin 2.1 H (0.5-1.5) % POC ABG HHb (Measured) 2.0 (0.0-5.0) % ABG Methemoglobin 1.1 (0.0-3.0) % ABG O2 Capacity 13.6 L (16-24) mL/dL Nam Test Yes ABG Potassium (3.6-5.2) mmol/L A-a O2 Difference 88.0 mm/Hg Hgb O2 Saturation 94.8 L (95.0-98.0) % Sodium 138 (132-148) mmol/L Chloride 98 (98-107) mmol/L Glucose (75-110) mg/dL Lactate (0.7-2.1) mmol/L Vent Mode Cpap+ps Mechanical Rate FiO2 30.0 % Tidal Volume PEEP 5 Pressure Support 14 Potassium 4.3 (3.6-5.0) MMOL/L Carbon Dioxide 33 H (22-30) mmol/L Anion Gap 11 (10-20) BUN 37 H (9-20) mg/dl Creatinine 1.1 (0.8-1.5) mg/dl Est GFR ( Amer) > 60 Est GFR (Non-Af Amer) > 60 Random Glucose 149 H (75-110) mg/dL Calcium 8.7 (8.4-10.2) mg/dL Phosphorus 5.1 H (2.5-4.5) mg/dl Magnesium 2.1 (1.6-2.3) MG/DL Total Bilirubin 0.6 (0.2-1.3) mg/dl AST 61 H (17-59) U/L ALT 61 (21-72) U/L Alkaline Phosphatase 114 (38-126) U/L Total Protein 6.3 (6.3-8.2) G/DL Albumin 3.2 L (3.5-5.0) g/dL Globulin 3.1 (2.2-3.9) gm/dL Albumin/Globulin Ratio 1.0 (1.0-2.1) Arterial Blood Potassium (3.6-5.2) mmol/L 04/23/19 04/23/19 04/23/19 Range/Units 07:15 04:37 00:55 WBC 10.9 H (4.8-10.8) K/uL RBC 3.37 L (4.40-5.90) Mil/uL Hgb 9.7 L (12.0-18.0) g/dL Hct 30.0 L (35.0-51.0) % MCV 89.1 (80.0-94.0) fl MCH 28.8 (27.0-31.0) pg MCHC 32.3 L (33.0-37.0) g/dL RDW 16.4 H (11.5-14.5) % Plt Count 249 (130-400) K/uL MPV 9.6 (7.2-11.7) fl Neut % (Auto) 72.9 (50.0-75.0) % Lymph % (Auto) 13.0 L (20.0-40.0) % [place] % (Auto) 11.6 H (0.0-10.0) % Eos % (Auto) 1.4 (0.0-4.0) % Baso % (Auto) 1.1 (0.0-2.0) % Neut # (Auto) 7.9 H (1.8-7.0) K/uL Lymph # (Auto) 1.4 (1.0-4.3) K/uL [place] # (Auto) 1.3 H (0.0-0.8) K/uL Eos # (Auto) 0.2 (0.0-0.7) K/uL Baso # (Auto) 0.1 (0.0-0.2) K/uL APTT 33.6 (25.6-37.1) Seconds pCO2 43 (35-45) mm/Hg pO2 72 L (80-100) mm/Hg HCO3 32.1 H (21-28) mmol/L ABG pH 7.50 H (7.35-7.45) ABG Total CO2 34.8 H (22-28) mmol/L ABG O2 Saturation 98.8 H (95-98) % ABG O2 Content (15-23) ML/dL ABG Base Excess 9.2 H (-2.0-3.0) mmol/L ABG Hemoglobin (11.7-17.4) g/dL ABG Carboxyhemoglobin (0.5-1.5) % POC ABG HHb (Measured) (0.0-5.0) % ABG Methemoglobin (0.0-3.0) % ABG O2 Capacity (16-24) mL/dL Nam Test Yes ABG Potassium 4.4 (3.6-5.2) mmol/L A-a O2 Difference 88.0 mm/Hg Hgb O2 Saturation (95.0-98.0) % Sodium 138.0 (132-148) mmol/L Chloride 102.0 (98-107) mmol/L Glucose 149 H (75-110) mg/dL Lactate 1.0 (0.7-2.1) mmol/L Vent Mode A/c Mechanical Rate 18 FiO2 30.0 % Tidal Volume 450 PEEP 5 Pressure Support Potassium (3.6-5.0) MMOL/L Carbon Dioxide (22-30) mmol/L Anion Gap (10-20) BUN (9-20) mg/dl Creatinine (0.8-1.5) mg/dl Est GFR ( Amer) Est GFR (Non-Af Amer) Random Glucose (75-110) mg/dL Calcium (8.4-10.2) mg/dL Phosphorus (2.5-4.5) mg/dl Magnesium (1.6-2.3) MG/DL Total Bilirubin (0.2-1.3) mg/dl AST (17-59) U/L ALT (21-72) U/L Alkaline Phosphatase (38-126) U/L Total Protein (6.3-8.2) G/DL Albumin (3.5-5.0) g/dL Globulin (2.2-3.9) gm/dL Albumin/Globulin Ratio (1.0-2.1) Arterial Blood Potassium 4.4 (3.6-5.2) mmol/L Laboratory Results - last 24 hr 07/20/18 07/20/18 07/20/18 00:55 04:37 07:15 WBC 10.9 H RBC 3.37 L Hgb 9.7 L Hct 30.0 L MCV 89.1 MCH 28.8 MCHC 32.3 L RDW 16.4 H Plt Count 249 MPV 9.6 Neut % (Auto) 72.9 Lymph % (Auto) 13.0 L [place] % (Auto) 11.6 H Eos % (Auto) 1.4 Baso % (Auto) 1.1 Neut # (Auto) 7.9 H Lymph # (Auto) 1.4 [place] # (Auto) 1.3 H Eos # (Auto) 0.2 Baso # (Auto) 0.1 APTT 33.6 pCO2 43 pO2 72 L HCO3 32.1 H ABG pH 7.50 H ABG Total CO2 34.8 H ABG O2 Saturation 98.8 H ABG O2 Content ABG Base Excess 9.2 H ABG Hemoglobin ABG Carboxyhemoglobin POC ABG HHb (Measured) ABG Methemoglobin ABG O2 Capacity Nam Test Yes ABG Potassium 4.4 A-a O2 Difference 88.0 Hgb O2 Saturation Sodium 138.0 Chloride 102.0 Glucose 149 H Lactate 1.0 Vent Mode A/c Mechanical Rate 18 FiO2 30.0 Tidal Volume 450 PEEP 5 Pressure Support Potassium Carbon Dioxide Anion Gap BUN Creatinine Est GFR ( Amer) Est GFR (Non-Af Amer) Random Glucose Calcium Phosphorus Magnesium Total Bilirubin AST ALT Alkaline Phosphatase Total Protein Albumin Globulin Albumin/Globulin Ratio Arterial Blood Potassium 4.4 07/20/18 07/20/18 07/20/18 07:15 07:15 10:08 WBC RBC Hgb Hct MCV MCH MCHC RDW Plt Count MPV Neut % (Auto) Lymph % (Auto) [place] % (Auto) Eos % (Auto) Baso % (Auto) Neut # (Auto) Lymph # (Auto) [place] # (Auto) Eos # (Auto) Baso # (Auto) APTT 50.7 H pCO2 44 pO2 71 L HCO3 32.8 H ABG pH 7.50 H ABG Total CO2 35.7 H ABG O2 Saturation 97.9 ABG O2 Content 13.3 L ABG Base Excess 10.1 H ABG Hemoglobin 9.9 L ABG Carboxyhemoglobin 2.1 H POC ABG HHb (Measured) 2.0 ABG Methemoglobin 1.1 ABG O2 Capacity 13.6 L Nam Test Yes ABG Potassium A-a O2 Difference 88.0 Hgb O2 Saturation 94.8 L Sodium 138 Chloride 98 Glucose Lactate Vent Mode Cpap+ps Mechanical Rate FiO2 30.0 Tidal Volume PEEP 5 Pressure Support 14 Potassium 4.3 Carbon Dioxide 33 H Anion Gap 11 BUN 37 H Creatinine 1.1 Est GFR ( Amer) > 60 Est GFR (Non-Af Amer) > 60 Random Glucose 149 H Calcium 8.7 Phosphorus 5.1 H Magnesium 2.1 Total Bilirubin 0.6 AST 61 H ALT 61 Alkaline Phosphatase 114 Total Protein 6.3 Albumin 3.2 L Globulin 3.1 Albumin/Globulin Ratio 1.0 Arterial Blood Potassium Radiology Impressions: Radiology Impressions Thoracentesis 07/19/18 12:08 IMPRESSION: Ultrasound guided right and left thoracentesis.. Chest X-Ray 07/20/18 08:00 IMPRESSION: Probable small left pleural effusion. Attending/Attestation - Attestation I have personally seen and examined this patient.: Yes I have fully participated in the care of the patient.: Yes I have reviewed all pertinent clinical information: Yes Notes (Text): 07/20/18 16:12 Today: Friday, July 20, 2018 The patient was Seen/interviewed and examined by me at the bedside during ICU round, Medical records reviewed and Management issues were discussed and formulated with the house staff. Events reviewed I have reviewed all the relevant clinical, laboratory, hemodynamic, radiographic data and medications Pain issues, skin care, head of the bed elevation, glycemic control were addressed. I concur with resident's assessment and plan of care as transcribed in Dr. Bang note. Patient is 88 years old male with past medical history of CHF and COPD, ? Pulmonary hypertension, history of TAVR and atrial fibrillation Currently managed in the ICU for acute hypercapnic respiratory failure Status post right-sided chest tube and bilateral thoracentesis Improve oxygenation and currently tolerating spontaneous breathing trial with pressure support ventilation Planning to decrease pressure support to 10 get an ABG and possible extubation today or tomorrow morning Continue intravenous antibiotic, sepsis under control, maintain aspiration precaution Continue your bronchodilator nebulizer Heparin drip for atrial fibrillation Pulmonary, ID, renal and cardiology consult appreciated Total critical care time 42 minutes
--- NOTE | 2018-07-20 08:36 | CP.PCM.PN ---
Subjective - Date & Time of Evaluation Date of Evaluation: 07/20/18 Time of Evaluation: 08:34 - Subjective Subjective: Interim events and recent EMR entries were reviewed. Thoracentesis yesterday bilaterally removing about 1.3 liters. A right sided tap done the day prior also yeilded about 150mls. Chest x-ray today still has left basal haziness and obscured hemidiaphragm. On the right side the CXR still has some hazy diaphragm, but improved from befor e. There is finally a negative fluid balance, but the chemistries are stable. Fluid analysis suggests exudate by LDH analysis even though proteins suggest transudate. Presently he is awake, comfortable, cooperative with the exam. RSBI is 95 presently on CPAP 5 and pressure support 14. SpO2 96% on 30% O2. There is no dullness to percussion anteriorly, no subcut emphysema. Breath sounds are diminished bilaterally, more so posteriorly (equally). Scattered sonorous rhonchi in the lower lobes posteriorly, no wheeze. No bronchial breath sounds, few medium, rales in LLs also. Heart sounds are distant, rhythm remains a fib with controlled VR. Dependant edema is lessening, no cyanosis. He has made positive strides over the last 2-3 days, especially yesterday after thoracentesis. I would continue CPAP/PS ventilation for the next two hours and repeat an ABG> If this mode of ventilation is tolerated I would trial T-Bar ventilation for a short time and extubate if he remains stable. CCT 40min Objective - Vital Signs/Intake and Output Vital Signs (last 24 hours): Temp Pulse Resp BP Pulse Ox 99.2 F 79 23 115/69 95 07/20/18 04:00 07/20/18 06:00 07/20/18 06:00 07/20/18 06:00 07/20/18 06:00 Intake and Output: 07/19/18 07/20/18 23:59 11:59 Intake Total 1816 790 Output Total 2800 650 Balance -984 140 - Medications Medications: Current Medications Acetaminophen (Tylenol 650mg/20.3ml Solution Ud) 650 mg NG Q6 PRN PRN Reason: Fever>100.4F Last Admin: 07/17/18 04:05 Dose: 650 mg Albuterol/Ipratropium (Duoneb 3 Mg/0.5 Mg (3 Ml) Ud) 3 ml INH RQ6 [facility] Last Admin: 07/20/18 07:59 Dose: 3 ml Aspirin (Ecotrin) 81 mg PO DAILY [facility] Last Admin: 07/19/18 09:27 Dose: 81 mg Atorvastatin Calcium (Lipitor) 20 mg PO HS [facility] Last Admin: 07/19/18 21:28 Dose: 20 mg Docusate Sodium (Colace Liquid) 100 mg PO BID [facility] Last Admin: 07/19/18 16:54 Dose: Not Given Folic Acid (Folic Acid) 1 mg NG DAILY [facility] Last Admin: 07/19/18 09:28 Dose: 1 mg Furosemide (Lasix) 60 mg IVP BID [facility] Stop: 07/21/18 17:01 Last Admin: 07/19/18 16:57 Dose: 60 mg Doxycycline Hyclate 100 mg/ (Sodium Chloride) 100 mls @ 100 mls/hr IVPB Q12 [facility]; Protocol Last Admin: 07/19/18 20:10 Dose: 100 mls/hr Vancomycin HCl 750 mg/ Sodium (Chloride) 250 mls @ 166.667 mls/hr IVPB Q12H [facility]; Protocol Last Admin: 07/20/18 02:00 Dose: 166.667 mls/hr Heparin Sodium/Dextrose (Heparin 25,000 Units/250ml In D5w) 25,000 units in 250 mls @ 14 mls/hr IV .[id number] [facility]; Protocol Last Titration: 07/20/18 01:41 Dose: 12 mls/hr Dexmedetomidine HCl 400 mcg/ (Sodium Chloride) 100 mls @ 7.04 mls/hr IV .[id number] [facility]; Protocol Stop: 07/20/18 11:25 Last Admin: 07/20/18 05:01 Dose: 0.2 mcg/kg/hr, 4.69 mls/hr Lactic Acid (Lac-Hydrin 12% Lotion (225 G)) 1 applic TOP TID [facility] Last Admin: 07/19/18 16:56 Dose: 1 applic Lactulose (Enulose) 10 gm PO DAILY PRN PRN Reason: Constipation Metolazone (Zaroxolyn) 5 mg PO BID [facility] Stop: 07/20/18 17:01 Last Admin: 07/19/18 17:00 Dose: 5 mg Nystatin (Nystop Topical Powder) 1 applic TOP TID [facility] Last Admin: 07/19/18 16:58 Dose: 1 applic Ondansetron HCl (Zofran Inj) 4 mg IVP Q6H PRN PRN Reason: Nausea/Vomiting Pantoprazole Sodium (Protonix Inj) 40 mg IVP DAILY [facility] Last Admin: 07/19/18 09:34 Dose: 40 mg Potassium Chloride (Potassium Chloride Oral Soln) 20 meq NG BID [facility] Stop: 07/21/18 17:01 Last Admin: 07/19/18 16:58 Dose: 20 meq Pyridostigmine [place] (Mestinon Tab) 30 mg PO BID [facility] Sennosides (Senokot Tab) 8.6 mg PO BID [facility] Last Admin: 07/19/18 16:59 Dose: Not Given Thiamine HCl (Vitamin B1 Tab) 100 mg NG DAILY [facility] Last Admin: 07/19/18 09:38 Dose: 100 mg - Labs Labs: 07/20/18 07:15 07/20/18 07:15 PT 12.6 Seconds (9.8-13.1) 07/08/18 00:19 INR 1.1 07/08/18 00:19 APTT 50.7 Seconds (25.6-37.1) H 07/20/18 07:15 Assessment and Plan (1) Respiratory failure with hypoxia and hypercapnia Status: Acute (2) Endotracheally intubated Status: Acute (3) Pleural effusion, left Status: Suspected (4) Dependent edema Status: Chronic (5) COPD (chronic obstructive pulmonary disease) Status: Chronic (6) Pneumonia Status: Acute
--- NOTE | 2018-07-20 09:29 | CP.PCM.HP ---
History of Present Illness - History of Present Illness History of Present Illness: HISTORY AND PHYSICAL 88 yo admitted to ICU in acute respiratory failure PMHX reviewed in detail Present on Admission - Present on Admission Any Indicators Present on Admission: No Past Patient History - Infectious Disease Hx of Infectious Diseases: None - Past Medical History & Family History Past Medical History?: Yes - Past Social History Smoking Status: Former Smoker Chewing Tobacco Use: No Cigar Use: No Alcohol: > 2 Drinks/Day Drugs: Denies Home Situation {Lives}: With Family - CARDIAC Hx Atrial Fibrillation: Yes Hx Congestive Heart Failure: Yes Hx Hypercholesterolemia: Yes Hx Hypertension: Yes Hx Peripheral Edema: Yes - PULMONARY Hx Bronchitis: Yes Hx Chronic Obstructive Pulmonary Disease (COPD): Yes Other/Comment: pleural effusion. - NEUROLOGICAL Hx Neurological Disorder: No - HEENT Hx HEENT Problems: No - RENAL Hx Chronic Kidney Disease: No - ENDOCRINE/METABOLIC Hx Endocrine Disorders: No - HEMATOLOGICAL/ONCOLOGICAL Hx Human Immunodeficiency Virus (HIV): No - INTEGUMENTARY Other/Comment: skin lesion recently removed from left infra-ocular area - MUSCULOSKELETAL/RHEUMATOLOGICAL Hx Arthritis: Yes Hx Back Pain: Yes Hx Herniated Disk: Yes - GASTROINTESTINAL Hx Diarrhea: Yes Other/Comment: ileus - GENITOURINARY/GYNECOLOGICAL Hx Genitourinary Disorders: No - PSYCHIATRIC Hx Psychophysiologic Disorder: No - SURGICAL HISTORY Hx Valve Replacement: Yes (TAVR) Other/Comment: Laminectomy L3-L5 05/15/2017 - ANESTHESIA Hx Anesthesia: Yes Hx Anesthesia Reactions: No Hx Malignant Hyperthermia: No Meds Allergies/Adverse Reactions: Allergies Allergy/AdvReac Type Severity Reaction Status Date / Time No Known Allergies Allergy Verified 07/07/18 23:59 Physical Exam - Respiratory Exam Respiratory Exam: NORMAL BREATHING PATTERN - Cardiovascular Exam Cardiovascular Exam: REGULAR RHYTHM - GI/Abdominal Exam GI & Abdominal Exam: Normal Bowel Sounds Results - Vital Signs Recent Vital Signs: Last Vital Signs Temp 99.2 F 07/20/18 04:00 Pulse 79 07/20/18 06:00 Resp 23 07/20/18 06:00 BP 115/69 07/20/18 06:00 Pulse Ox 95 07/20/18 06:00 - Labs Result Diagrams: 07/20/18 07:15 07/20/18 07:15 Labs: Laboratory Results - last 24 hr 07/19/18 07/19/18 07/19/18 10:00 12:16 12:16 WBC RBC Hgb Hct MCV MCH MCHC RDW Plt Count MPV Neut % (Auto) Lymph % (Auto) [place] % (Auto) Eos % (Auto) Baso % (Auto) Neut # (Auto) Lymph # (Auto) [place] # (Auto) Eos # (Auto) Baso # (Auto) APTT pCO2 pO2 HCO3 ABG pH ABG Total CO2 ABG O2 Saturation ABG Base Excess Nam Test ABG Potassium A-a O2 Difference Sodium Chloride Glucose Lactate Vent Mode Mechanical Rate FiO2 Tidal Volume PEEP Potassium Carbon Dioxide Anion Gap BUN Creatinine Est GFR ( Amer) Est GFR (Non-Af Amer) Random Glucose Calcium Phosphorus Magnesium Total Bilirubin AST ALT Alkaline Phosphatase Lactate Dehydrogenase 608 Total Protein Albumin Globulin Albumin/Globulin Ratio Arterial Blood Potassium Fluid Source Pleural/thoracentesi Fluid Appearance Cloudy Fluid WBC 1082.0 H Fluid RBC 5432.0 H Fluid Tot Cell Count 100 H Fluid Neutrophils 78.0 H Fluid Lymphocytes 8.0 H Fld Monocyte/Macrophag 14 H Fluid Glucose 142 Fluid Total Protein Fluid LDH 529 Fluid Comment Dark yellow 07/19/18 07/20/18 07/20/18 12:16 00:55 04:37 WBC RBC Hgb Hct MCV MCH MCHC RDW Plt Count MPV Neut % (Auto) Lymph % (Auto) [place] % (Auto) Eos % (Auto) Baso % (Auto) Neut # (Auto) Lymph # (Auto) [place] # (Auto) Eos # (Auto) Baso # (Auto) APTT 33.6 pCO2 43 pO2 72 L HCO3 32.1 H ABG pH 7.50 H ABG Total CO2 34.8 H ABG O2 Saturation 98.8 H ABG Base Excess 9.2 H Nam Test Yes ABG Potassium 4.4 A-a O2 Difference 88.0 Sodium 138.0 Chloride 102.0 Glucose 149 H Lactate 1.0 Vent Mode A/c Mechanical Rate 18 FiO2 30.0 Tidal Volume 450 PEEP 5 Potassium Carbon Dioxide Anion Gap BUN Creatinine Est GFR ( Amer) Est GFR (Non-Af Amer) Random Glucose Calcium Phosphorus Magnesium Total Bilirubin AST ALT Alkaline Phosphatase Lactate Dehydrogenase Total Protein Albumin Globulin Albumin/Globulin Ratio Arterial Blood Potassium 4.4 Fluid Source Fluid Appearance Fluid WBC Fluid RBC Fluid Tot Cell Count Fluid Neutrophils Fluid Lymphocytes Fld Monocyte/Macrophag Fluid Glucose Fluid Total Protein 2.3 Fluid LDH Fluid Comment 04/07/20/18 07/20/18 07:15 07:15 07:15 WBC 10.9 H RBC 3.37 L Hgb 9.7 L Hct 30.0 L MCV 89.1 MCH 28.8 MCHC 32.3 L RDW 16.4 H Plt Count 249 MPV 9.6 Neut % (Auto) 72.9 Lymph % (Auto) 13.0 L [place] % (Auto) 11.6 H Eos % (Auto) 1.4 Baso % (Auto) 1.1 Neut # (Auto) 7.9 H Lymph # (Auto) 1.4 [place] # (Auto) 1.3 H Eos # (Auto) 0.2 Baso # (Auto) 0.1 APTT 50.7 H pCO2 pO2 HCO3 ABG pH ABG Total CO2 ABG O2 Saturation ABG Base Excess Nam Test ABG Potassium A-a O2 Difference Sodium 138 Chloride 98 Glucose Lactate Vent Mode Mechanical Rate FiO2 Tidal Volume PEEP Potassium 4.3 Carbon Dioxide 33 H Anion Gap 11 BUN 37 H Creatinine 1.1 Est GFR ( Amer) > 60 Est GFR (Non-Af Amer) > 60 Random Glucose 149 H Calcium 8.7 Phosphorus 5.1 H Magnesium 2.1 Total Bilirubin 0.6 AST 61 H ALT 61 Alkaline Phosphatase 114 Lactate Dehydrogenase Total Protein 6.3 Albumin 3.2 L Globulin 3.1 Albumin/Globulin Ratio 1.0 Arterial Blood Potassium Fluid Source Fluid Appearance Fluid WBC Fluid RBC Fluid Tot Cell Count Fluid Neutrophils Fluid Lymphocytes Fld Monocyte/Macrophag Fluid Glucose Fluid Total Protein Fluid LDH Fluid Comment Assessment & Plan - Assessment and Plan (Free Text) Assessment: Acute Respiratory Failure Multi lobar pneumonia Bilateral Pleural effusion Hx R Pleural efusion S/P thoracentesis Hx COPD COSA Smoker ICU Intubated Pulmonary ID Hx CHF Afib S/P TAVR LV fxn good Cardiology anticoagulation Cellulitis RLE improved ABX Hx ANTHONY/ CKD Lasix Nephrology Chronic ETOH ?? HX Abdominal distention improved Colonic ileus ( recurrent ) + FOBT ?? [place] held etiol ?? 2 to L-S surgery pyridostigmine Hx LLE edema cellulitis ?? ecchymosis?? Endovascular consult ??? CT scan done no significant findings Hx Hyperkalemia 2 to Bactrim?? Hold NAMRATA Hx Hypokalemia Hyperkalemia HTN Prediabetes Hx Low back surgery (Severe Spinal Stenosis) Post operative illeus
[2018-07-20 10:18] LABS: ABG ALLEN TEST YES; ARTERIAL BLOOD GAS HCO3 32.8 mmol/L (21-28); ARTERIAL BLOOD GAS HEMOGLOBIN 9.9 g/dL (11.7-17.4); ARTERIAL BLOOD GAS O2 CAPACITY 13.6 mL/dL (16-24); ARTERIAL BLOOD GAS O2 CONTENT 13.3 ML/dL (15-23); ARTERIAL BLOOD GAS O2 SAT 97.9 % (95-98); ARTERIAL BLOOD GAS PCO2 44 mm/Hg (35-45); ARTERIAL BLOOD GAS PO2 71 mm/Hg (80-100); ARTERIAL BLOOD GAS TCO2 35.7 mmol/L (22-28)
[2018-07-20] MEDS: Potassium Chloride 20 mEq/15 ml LIQ UD NG SCH ×2 (10:30→17:02)
[2018-07-20] MEDS: metOLazone 5 MG TAB PO SCH (10:34)
--- NOTE | 2018-07-20 10:54 | CP.PCM.PN ---
Subjective - Date & Time of Evaluation Date of Evaluation: 07/20/18 Time of Evaluation: 10:00 - Subjective Subjective: NO CHEST PAIN BY NODDING Objective - Vital Signs/Intake and Output Vital Signs (last 24 hours): Temp Pulse Resp BP Pulse Ox 97.4 F L 86 35 H 103/58 L 96 07/20/18 08:00 07/20/18 10:20 07/20/18 10:20 07/20/18 10:26 07/20/18 10:20 Intake and Output: 07/20/18 07/20/18 06:59 18:59 Intake Total 1210 300 Output Total 1550 Balance -340 300 - Medications Medications: Current Medications Acetaminophen (Tylenol 650mg/20.3ml Solution Ud) 650 mg NG Q6 PRN PRN Reason: Fever>100.4F Last Admin: 07/17/18 04:05 Dose: 650 mg Albuterol/Ipratropium (Duoneb 3 Mg/0.5 Mg (3 Ml) Ud) 3 ml INH RQ6 [facility] Last Admin: 07/20/18 07:59 Dose: 3 ml Aspirin (Ecotrin) 81 mg PO DAILY [facility] Last Admin: 07/20/18 10:26 Dose: 81 mg Atorvastatin Calcium (Lipitor) 20 mg PO HS [facility] Last Admin: 07/19/18 21:28 Dose: 20 mg Docusate Sodium (Colace Liquid) 100 mg PO BID [facility] Last Admin: 07/20/18 10:25 Dose: 100 mg Folic Acid (Folic Acid) 1 mg NG DAILY [facility] Last Admin: 07/20/18 10:26 Dose: 1 mg Furosemide (Lasix) 60 mg IVP BID [facility] Stop: 07/21/18 17:01 Last Admin: 07/20/18 10:26 Dose: 60 mg Doxycycline Hyclate 100 mg/ (Sodium Chloride) 100 mls @ 100 mls/hr IVPB Q12 [facility]; Protocol Last Admin: 07/20/18 10:33 Dose: 100 mls/hr Vancomycin HCl 750 mg/ Sodium (Chloride) 250 mls @ 166.667 mls/hr IVPB Q12H [facility]; Protocol Last Admin: 07/20/18 02:00 Dose: 166.667 mls/hr Heparin Sodium/Dextrose (Heparin 25,000 Units/250ml In D5w) 25,000 units in 250 mls @ 14 mls/hr IV .[id number] [facility]; Protocol Last Titration: 07/20/18 01:41 Dose: 12 mls/hr Dexmedetomidine HCl 400 mcg/ (Sodium Chloride) 100 mls @ 7.04 mls/hr IV .[id number] [facility]; Protocol Stop: 07/20/18 11:25 Last Admin: 07/20/18 10:30 Dose: 0.2 mcg/kg/hr, 4.69 mls/hr Lactic Acid (Lac-Hydrin 12% Lotion (225 G)) 1 applic TOP TID [facility] Last Admin: 07/20/18 10:26 Dose: 1 applic Lactulose (Enulose) 10 gm PO DAILY PRN PRN Reason: Constipation Metolazone (Zaroxolyn) 5 mg PO BID [facility] Stop: 07/20/18 17:01 Last Admin: 07/20/18 10:34 Dose: 5 mg Nystatin (Nystop Topical Powder) 1 applic TOP TID [facility] Last Admin: 07/20/18 10:28 Dose: 1 applic Ondansetron HCl (Zofran Inj) 4 mg IVP Q6H PRN PRN Reason: Nausea/Vomiting Pantoprazole Sodium (Protonix Inj) 40 mg IVP DAILY [facility] Last Admin: 07/20/18 10:32 Dose: 40 mg Potassium Chloride (Potassium Chloride Oral Soln) 20 meq NG BID [facility] Stop: 07/21/18 17:01 Last Admin: 07/20/18 10:30 Dose: 20 meq Pyridostigmine [place] (Mestinon Tab) 30 mg PO BID [facility] Last Admin: 07/20/18 10:27 Dose: 30 mg Sennosides (Senokot Tab) 8.6 mg PO BID [facility] Last Admin: 07/20/18 10:33 Dose: 8.6 mg Thiamine HCl (Vitamin B1 Tab) 100 mg NG DAILY [facility] Last Admin: 07/20/18 10:34 Dose: 100 mg - Labs Labs: 07/20/18 07:15 07/20/18 07:15 PT 12.6 Seconds (9.8-13.1) 07/08/18 00:19 INR 1.1 07/08/18 00:19 APTT 50.7 Seconds (25.6-37.1) H 07/20/18 07:15 - Respiratory Exam Respiratory Exam: Decreased Breath Sounds, Rhonchi - Cardiovascular Exam Cardiovascular Exam: Irregular Rhythm, +S1, +S2 - Extremities Exam Additional comments: DECREASE IN EDEMA - Additional Findings 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
--- NOTE | 2018-07-20 12:02 | RAD ---
Date of service: 07/20/2018 PROCEDURE: CHEST RADIOGRAPH, 1 VIEW HISTORY: eval et tube COMPARISON: 07/19/2018 FINDINGS: LUNGS: Clear. PLEURA: Probable small left pleural effusion. Costophrenic angle is obscured. The left hemidiaphragm is obscured. CARDIOVASCULAR: Apparent cardiomegaly larger factual due to severe apical lordotic positioning. No congestive change. Normal heart size. No thoracic aortic calcification. ET tube and NG tube unchanged OSSEOUS STRUCTURES: No significant abnormalities. VISUALIZED UPPER ABDOMEN: Normal. OTHER FINDINGS: None. IMPRESSION: Probable small left pleural effusion.
--- NOTE | 2018-07-20 13:02 | VASCULAR ---
PROCEDURE: Date of procedure: 07/19/2018 Procedure: 1. Ultrasound-guided Right and left thoracentesis Medications: 6cc 1% Lidocaine HISTORY: Bilateral pleural effusion, ventilatory failure TECHNIQUE: Following informed consent ,the Patients' right chest was marked. Procedure time-out was called, and the patient was placed in the lateral position and limited ultrasound showed a small right effusion and a moderate left. The patient's right back was prepped and draped in the usual sterile fashion. After the skin was anesthetized with lidocaine, a drainage catheter was advanced under ultrasound guidance into the pleural space. Ultrasound-guided thoracentesis was performed. A total of 550 cubic centimeters of straw-colored fluid removed without complication. A Xeroform dressing was applied. Ultrasound-guided left thoracentesis was performed in a similar sterile manner. 700 cubic centimeters of fluid was removed. IMPRESSION: Ultrasound guided right and left thoracentesis..
--- NOTE | 2018-07-20 13:04 | CP.PCM.PN ---
Subjective - Date & Time of Evaluation Date of Evaluation: 07/20/18 Time of Evaluation: 08:00 - Subjective Subjective: improved s/p thoracenteses IV rx reordered for possible extubation Objective - Vital Signs/Intake and Output Vital Signs (last 24 hours): Temp Pulse Resp BP Pulse Ox 96.8 F L 85 29 H 104/55 L 100 07/20/18 12:00 07/20/18 12:00 07/20/18 12:00 07/20/18 12:00 07/20/18 12:00 Intake and Output: 07/20/18 07/20/18 06:59 18:59 Intake Total 1210 550 Output Total 1550 Balance -340 550 - Medications Medications: Current Medications Acetaminophen (Tylenol 650mg/20.3ml Solution Ud) 650 mg NG Q6 PRN PRN Reason: Fever>100.4F Last Admin: 07/17/18 04:05 Dose: 650 mg Albuterol/Ipratropium (Duoneb 3 Mg/0.5 Mg (3 Ml) Ud) 3 ml INH RQ6 [facility] Last Admin: 07/20/18 07:59 Dose: 3 ml Aspirin (Ecotrin) 81 mg PO DAILY [facility] Last Admin: 07/20/18 10:26 Dose: 81 mg Atorvastatin Calcium (Lipitor) 20 mg PO HS [facility] Last Admin: 07/19/18 21:28 Dose: 20 mg Docusate Sodium (Colace Liquid) 100 mg PO BID [facility] Last Admin: 07/20/18 10:25 Dose: 100 mg Folic Acid (Folic Acid) 1 mg NG DAILY [facility] Last Admin: 07/20/18 10:26 Dose: 1 mg Furosemide (Lasix) 40 mg IVP DAILY [facility] Doxycycline Hyclate 100 mg/ (Sodium Chloride) 100 mls @ 100 mls/hr IVPB Q12 [facility]; Protocol Last Admin: 07/20/18 10:33 Dose: 100 mls/hr Vancomycin HCl 750 mg/ Sodium (Chloride) 250 mls @ 166.667 mls/hr IVPB Q12H [facility]; Protocol Last Admin: 07/20/18 12:29 Dose: 166.667 mls/hr Heparin Sodium/Dextrose (Heparin 25,000 Units/250ml In D5w) 25,000 units in 250 mls @ 14 mls/hr IV .[id number] [facility]; Protocol Last Titration: 07/20/18 01:41 Dose: 12 mls/hr Lactic Acid (Lac-Hydrin 12% Lotion (225 G)) 1 applic TOP TID [facility] Last Admin: 07/20/18 12:11 Dose: 1 applic Lactulose (Enulose) 10 gm PO DAILY PRN PRN Reason: Constipation Metolazone (Zaroxolyn) 5 mg PO BID [facility] Stop: 07/20/18 17:01 Last Admin: 07/20/18 10:34 Dose: 5 mg Nystatin (Nystop Topical Powder) 1 applic TOP TID [facility] Last Admin: 07/20/18 12:13 Dose: 1 applic Ondansetron HCl (Zofran Inj) 4 mg IVP Q6H PRN PRN Reason: Nausea/Vomiting Pantoprazole Sodium (Protonix Inj) 40 mg IVP DAILY [facility] Last Admin: 07/20/18 10:32 Dose: 40 mg Potassium Chloride (Potassium Chloride Oral Soln) 20 meq NG BID [facility] Stop: 07/21/18 17:01 Last Admin: 07/20/18 10:30 Dose: 20 meq Pyridostigmine [place] (Mestinon Tab) 30 mg PO BID [facility] Last Admin: 07/20/18 10:27 Dose: 30 mg Sennosides (Senokot Tab) 8.6 mg PO BID [facility] Last Admin: 07/20/18 10:33 Dose: 8.6 mg Thiamine HCl (Vitamin B1 Tab) 100 mg NG DAILY [facility] Last Admin: 07/20/18 10:34 Dose: 100 mg - Labs Labs: 07/20/18 07:15 07/20/18 07:15 PT 12.6 Seconds (9.8-13.1) 07/08/18 00:19 INR 1.1 07/08/18 00:19 APTT 50.7 Seconds (25.6-37.1) H 07/20/18 07:15 - Constitutional Appears: No Acute Distress, Chronically Ill - Head Exam Head Exam: ATRAUMATIC, NORMAL INSPECTION, NORMOCEPHALIC - Eye Exam Eye Exam: EOMI, Normal appearance, PERRL Pupil Exam: NORMAL ACCOMODATION, PERRL - ENT Exam ENT Exam: Mucous Membranes Moist, Normal Exam Additional comments: ETT + - Neck Exam Neck Exam: Full ROM, Normal Inspection. absent: Lymphadenopathy - Respiratory Exam Respiratory Exam: Decreased Breath Sounds, Prolonged Expiratory Phase, Rhonchi - Cardiovascular Exam Cardiovascular Exam: REGULAR RHYTHM, +S1, +S2. absent: Murmur - GI/Abdominal Exam GI & Abdominal Exam: Soft, Normal Bowel Sounds. absent: Tenderness - Rectal Exam Rectal Exam: Deferred - Exam Exam: NORMAL INSPECTION - Extremities Exam Extremities Exam: Full ROM, Normal Capillary Refill, Pedal Edema. absent: Joint Swelling, Normal Inspection - Back Exam Back Exam: NORMAL INSPECTION - Neurological Exam Neurological Exam: Alert, Awake, CN II-XII Intact, Oriented x3. absent: Normal Gait Neuro motor strength exam: Left Upper Extremity: 3, Right Upper Extremity: 3, Left Lower Extremity: 3, Right Lower Extremity: 3 - Psychiatric Exam Psychiatric exam: Depressed - Skin Skin Exam: Dry, Intact, Normal Color, Warm Assessment and Plan (1) Cellulitis of right lower leg Status: Acute (2) Atrial fibrillation Status: Acute (3) CHF (congestive heart failure) Status: Acute (4) Endotracheally intubated Status: Acute (5) Respiratory distress Status: Acute (6) Respiratory failure with hypoxia and hypercapnia Status: Acute (7) Dependent edema Status: Chronic (8) Pleural effusion, left Status: Suspected (9) Pneumonia Status: Acute (10) COPD (chronic obstructive pulmonary disease) Status: Chronic (11) Sepsis Status: Acute - Assessment and Plan (Free Text) Assessment: cont IV antibiotics pending repeat cultures for possible extubation
--- NOTE | 2018-07-20 14:10 | CP.PCM.PN ---
Subjective - Date & Time of Evaluation Date of Evaluation: 07/20/18 Time of Evaluation: 14:10 - Subjective Subjective: Intubated sedated no significant changes clinically Objective - Vital Signs/Intake and Output Vital Signs (last 24 hours): Temp Pulse Resp BP Pulse Ox 96.8 F L 81 38 H 103/60 96 07/20/18 12:00 07/20/18 13:00 07/20/18 13:00 07/20/18 13:00 07/20/18 13:00 Intake and Output: 07/20/18 07/20/18 06:59 18:59 Intake Total 1210 550 Output Total 1550 Balance -340 550 - Medications Medications: Current Medications Acetaminophen (Tylenol 650mg/20.3ml Solution Ud) 650 mg NG Q6 PRN PRN Reason: Fever>100.4F Last Admin: 07/17/18 04:05 Dose: 650 mg Albuterol/Ipratropium (Duoneb 3 Mg/0.5 Mg (3 Ml) Ud) 3 ml INH RQ6 [facility] Last Admin: 07/20/18 13:59 Dose: 3 ml Aspirin (Ecotrin) 81 mg PO DAILY [facility] Last Admin: 07/20/18 10:26 Dose: 81 mg Atorvastatin Calcium (Lipitor) 20 mg PO HS [facility] Last Admin: 07/19/18 21:28 Dose: 20 mg Docusate Sodium (Colace Liquid) 100 mg PO BID [facility] Last Admin: 07/20/18 10:25 Dose: 100 mg Folic Acid (Folic Acid) 1 mg NG DAILY [facility] Last Admin: 07/20/18 10:26 Dose: 1 mg Furosemide (Lasix) 40 mg IVP DAILY [facility] Doxycycline Hyclate 100 mg/ (Sodium Chloride) 100 mls @ 100 mls/hr IVPB Q12 [facility]; Protocol Last Admin: 07/20/18 10:33 Dose: 100 mls/hr Vancomycin HCl 750 mg/ Sodium (Chloride) 250 mls @ 166.667 mls/hr IVPB Q12H [facility]; Protocol Last Admin: 07/20/18 12:29 Dose: 166.667 mls/hr Heparin Sodium/Dextrose (Heparin 25,000 Units/250ml In D5w) 25,000 units in 250 mls @ 14 mls/hr IV .[id number] [facility]; Protocol Last Titration: 07/20/18 01:41 Dose: 12 mls/hr Lactic Acid (Lac-Hydrin 12% Lotion (225 G)) 1 applic TOP TID [facility] Last Admin: 07/20/18 12:11 Dose: 1 applic Lactulose (Enulose) 10 gm PO DAILY PRN PRN Reason: Constipation Nystatin (Nystop Topical Powder) 1 applic TOP TID [facility] Last Admin: 07/20/18 12:13 Dose: 1 applic Ondansetron HCl (Zofran Inj) 4 mg IVP Q6H PRN PRN Reason: Nausea/Vomiting Pantoprazole Sodium (Protonix Inj) 40 mg IVP DAILY [facility] Last Admin: 07/20/18 10:32 Dose: 40 mg Potassium Chloride (Potassium Chloride Oral Soln) 20 meq NG BID [facility] Stop: 07/21/18 17:01 Last Admin: 07/20/18 10:30 Dose: 20 meq Pyridostigmine [place] (Mestinon Tab) 30 mg PO BID [facility] Last Admin: 07/20/18 10:27 Dose: 30 mg Sennosides (Senokot Tab) 8.6 mg PO BID [facility] Last Admin: 07/20/18 10:33 Dose: 8.6 mg Thiamine HCl (Vitamin B1 Tab) 100 mg NG DAILY [facility] Last Admin: 07/20/18 10:34 Dose: 100 mg - Labs Labs: 07/20/18 07:15 07/20/18 07:15 PT 12.6 Seconds (9.8-13.1) 07/08/18 00:19 INR 1.1 07/08/18 00:19 APTT 50.7 Seconds (25.6-37.1) H 07/20/18 07:15 - Constitutional Appears: No Acute Distress - Eye Exam Eye Exam: Conjunctival injection - ENT Exam ENT Exam: Mucous Membranes Moist - Neck Exam Neck Exam: absent: Lymphadenopathy - Respiratory Exam Respiratory Exam: Rhonchi. absent: Chest Wall Tenderness - Cardiovascular Exam Cardiovascular Exam: absent: Gallop, Rubs - GI/Abdominal Exam GI & Abdominal Exam: Soft, Normal Bowel Sounds - Extremities Exam Extremities Exam: absent: Calf Tenderness - Back Exam Back Exam: absent: CVA tenderness (L), CVA tenderness (R) - Neurological Exam Neurological Exam: Alert - Psychiatric Exam Psychiatric exam: Flat Affect - Skin Skin Exam: absent: Cyanosis Assessment and Plan (1) Cellulitis of right lower leg Status: Acute (2) Pneumonia Status: Acute (3) Respiratory failure with hypoxia and hypercapnia Status: Acute (4) Sepsis Status: Acute - Assessment and Plan (Free Text) Assessment: acute respi failure PNA, CHF exacerbation ANTHONY improved HTN, COPD CHF s/p TAVR Obesity Recommendation Patient started to develop metabolic alkalosis CO2 going up series 7 Hold metolazone May consider give Diamox
[2018-07-20] MEDS: Heparin 25,000units in D5W 25,000 UNITS/250 ML BAG IV SCH (16:57)
--- NOTE | 2018-07-20 17:01 | CP.PCM.PN ---
Subjective - Date & Time of Evaluation Date of Evaluation: 07/20/18 Time of Evaluation: 09:00 - Subjective Subjective: Patient remains on ventilator support. Having regular BMs. Objective - Vital Signs/Intake and Output Vital Signs (last 24 hours): Temp Pulse Resp BP Pulse Ox 98.2 F 86 27 H 101/57 L 93 L 07/20/18 16:00 07/20/18 16:00 07/20/18 16:00 07/20/18 16:00 07/20/18 16:00 Intake and Output: 07/20/18 07/20/18 06:59 18:59 Intake Total 1210 1534 Output Total 1550 Balance -340 1534 - Medications Medications: Current Medications Acetaminophen (Tylenol 650mg/20.3ml Solution Ud) 650 mg NG Q6 PRN PRN Reason: Fever>100.4F Last Admin: 07/17/18 04:05 Dose: 650 mg Albuterol/Ipratropium (Duoneb 3 Mg/0.5 Mg (3 Ml) Ud) 3 ml INH RQ6 [facility] Last Admin: 07/20/18 13:59 Dose: 3 ml Aspirin (Ecotrin) 81 mg PO DAILY [facility] Last Admin: 07/20/18 10:26 Dose: 81 mg Atorvastatin Calcium (Lipitor) 20 mg PO HS [facility] Last Admin: 07/19/18 21:28 Dose: 20 mg Docusate Sodium (Colace Liquid) 100 mg PO BID [facility] Last Admin: 07/20/18 10:25 Dose: 100 mg Folic Acid (Folic Acid) 1 mg NG DAILY [facility] Last Admin: 07/20/18 10:26 Dose: 1 mg Furosemide (Lasix) 40 mg IVP DAILY [facility] Doxycycline Hyclate 100 mg/ (Sodium Chloride) 100 mls @ 100 mls/hr IVPB Q12 [facility]; Protocol Last Admin: 07/20/18 10:33 Dose: 100 mls/hr Vancomycin HCl 750 mg/ Sodium (Chloride) 250 mls @ 166.667 mls/hr IVPB Q12H [facility]; Protocol Last Admin: 07/20/18 12:29 Dose: 166.667 mls/hr Heparin Sodium/Dextrose (Heparin 25,000 Units/250ml In D5w) 25,000 units in 250 mls @ 14 mls/hr IV .[id number] [facility]; Protocol Last Titration: 07/20/18 01:41 Dose: 12 mls/hr Lactic Acid (Lac-Hydrin 12% Lotion (225 G)) 1 applic TOP TID [facility] Last Admin: 07/20/18 12:11 Dose: 1 applic Lactulose (Enulose) 10 gm PO DAILY PRN PRN Reason: Constipation Nystatin (Nystop Topical Powder) 1 applic TOP TID [facility] Last Admin: 07/20/18 12:13 Dose: 1 applic Ondansetron HCl (Zofran Inj) 4 mg IVP Q6H PRN PRN Reason: Nausea/Vomiting Pantoprazole Sodium (Protonix Inj) 40 mg IVP DAILY [facility] Last Admin: 07/20/18 10:32 Dose: 40 mg Potassium Chloride (Potassium Chloride Oral Soln) 20 meq NG BID [facility] Stop: 07/21/18 17:01 Last Admin: 07/20/18 10:30 Dose: 20 meq Pyridostigmine [place] (Mestinon Tab) 30 mg PO BID [facility] Last Admin: 07/20/18 10:27 Dose: 30 mg Sennosides (Senokot Tab) 8.6 mg PO BID [facility] Last Admin: 07/20/18 10:33 Dose: 8.6 mg Thiamine HCl (Vitamin B1 Tab) 100 mg NG DAILY [facility] Last Admin: 07/20/18 10:34 Dose: 100 mg - Labs Labs: 07/20/18 07:15 07/20/18 07:15 PT 12.6 Seconds (9.8-13.1) 07/08/18 00:19 INR 1.1 07/08/18 00:19 APTT 50.7 Seconds (25.6-37.1) H 07/20/18 07:15 - Head Exam Head Exam: ATRAUMATIC - Eye Exam Eye Exam: Normal appearance Pupil Exam: PERRL - ENT Exam ENT Exam: Normal Exam - Neck Exam Neck Exam: Full ROM - Respiratory Exam Respiratory Exam: Clear to Ausculation Bilateral - Cardiovascular Exam Cardiovascular Exam: REGULAR RHYTHM - GI/Abdominal Exam GI & Abdominal Exam: Soft. absent: Tenderness Assessment and Plan (1) Abdominal distention Assessment & Plan: Abdomen remains soft today. Continue current BID pyridostigmine and nightly senna. Status: Acute
--- NOTE | 2018-07-20 19:50 | CP.PCM.PN ---
Subjective - Date & Time of Evaluation Date of Evaluation: 07/20/18 Time of Evaluation: 22:22 - Subjective Subjective: Above noted Hbg 10.9 Objective - Vital Signs/Intake and Output Vital Signs (last 24 hours): Temp Pulse Resp BP Pulse Ox 98.2 F 75 26 H 106/66 96 07/20/18 16:00 07/20/18 17:57 07/20/18 17:57 07/20/18 17:57 07/20/18 17:57 Intake and Output: 07/20/18 07/21/18 18:59 06:59 Intake Total 1634 Output Total 1200 Balance 434 - Medications Medications: Current Medications Acetaminophen (Tylenol 650mg/20.3ml Solution Ud) 650 mg NG Q6 PRN PRN Reason: Fever>100.4F Last Admin: 07/17/18 04:05 Dose: 650 mg Albuterol/Ipratropium (Duoneb 3 Mg/0.5 Mg (3 Ml) Ud) 3 ml INH RQ6 [facility] Last Admin: 07/20/18 19:04 Dose: 3 ml Aspirin (Ecotrin) 81 mg PO DAILY [facility] Last Admin: 07/20/18 10:26 Dose: 81 mg Atorvastatin Calcium (Lipitor) 20 mg PO HS [facility] Last Admin: 07/19/18 21:28 Dose: 20 mg Docusate Sodium (Colace Liquid) 100 mg PO BID [facility] Last Admin: 07/20/18 16:55 Dose: 100 mg Folic Acid (Folic Acid) 1 mg NG DAILY [facility] Last Admin: 07/20/18 10:26 Dose: 1 mg Furosemide (Lasix) 40 mg IVP DAILY [facility] Doxycycline Hyclate 100 mg/ (Sodium Chloride) 100 mls @ 100 mls/hr IVPB Q12 [facility]; Protocol Last Admin: 07/20/18 10:33 Dose: 100 mls/hr Vancomycin HCl 750 mg/ Sodium (Chloride) 250 mls @ 166.667 mls/hr IVPB Q12H [facility]; Protocol Last Admin: 07/20/18 12:29 Dose: 166.667 mls/hr Heparin Sodium/Dextrose (Heparin 25,000 Units/250ml In D5w) 25,000 units in 250 mls @ 14 mls/hr IV .[id number] [facility]; Protocol Last Admin: 07/20/18 16:57 Dose: 12 mls/hr Lactic Acid (Lac-Hydrin 12% Lotion (225 G)) 1 applic TOP TID [facility] Last Admin: 07/20/18 16:58 Dose: 1 applic Lactulose (Enulose) 10 gm PO DAILY PRN PRN Reason: Constipation Nystatin (Nystop Topical Powder) 1 applic TOP TID [facility] Last Admin: 07/20/18 16:58 Dose: 1 applic Ondansetron HCl (Zofran Inj) 4 mg IVP Q6H PRN PRN Reason: Nausea/Vomiting Pantoprazole Sodium (Protonix Inj) 40 mg IVP DAILY [facility] Last Admin: 07/20/18 10:32 Dose: 40 mg Potassium Chloride (Potassium Chloride Oral Soln) 20 meq NG BID [facility] Stop: 07/21/18 17:01 Last Admin: 07/20/18 17:02 Dose: 20 meq Pyridostigmine [place] (Mestinon Tab) 30 mg PO BID [facility] Last Admin: 07/20/18 17:03 Dose: 30 mg Sennosides (Senokot Tab) 8.6 mg PO BID [facility] Last Admin: 07/20/18 17:02 Dose: 8.6 mg Thiamine HCl (Vitamin B1 Tab) 100 mg NG DAILY [facility] Last Admin: 07/20/18 10:34 Dose: 100 mg - Labs Labs: 07/20/18 07:15 07/20/18 07:15 PT 12.6 Seconds (9.8-13.1) 07/08/18 00:19 INR 1.1 07/08/18 00:19 APTT 50.7 Seconds (25.6-37.1) H 07/20/18 07:15 - Respiratory Exam Respiratory Exam: NORMAL BREATHING PATTERN - Cardiovascular Exam Cardiovascular Exam: REGULAR RHYTHM - GI/Abdominal Exam GI & Abdominal Exam: Normal Bowel Sounds Assessment and Plan - Assessment and Plan (Free Text) Assessment: Acute Respiratory Failure Multi lobar pneumonia Bilateral Pleural effusion S/P thoracentesis Hx COPD [facility] Smoker ICU Intubated Pulmonary ID Hx CHF Afib S/P TAVR LV fxn good Cardiology anticoagulation Cellulitis RLE improved ABX Hx ANTHONY/ CKD Lasix Nephrology Chronic ETOH ?? HX Abdominal distention improved Colonic ileus ( recurrent ) + FOBT ?? [place] held etiol ?? 2 to L-S surgery pyridostigmine Hx LLE edema cellulitis ?? ecchymosis?? Endovascular consult ??? CT scan done no significant findings Hx Hyperkalemia 2 to Bactrim?? Hold NAMRATA Hx Hypokalemia Hyperkalemia HTN Prediabetes Hx Low back surgery (Severe Spinal Stenosis) Post operative illeus
[2018-07-21] MEDS: Albuterol-Ipratrop 3 mg / 0.5 (3 ml) UD INH SCH ×5 (01:09→19:13)
[2018-07-21] MEDS ORDERED: Dexmedetomidine Hydrochloride 400 MCG in Sodium Chloride 0.9% 96 ML IV ONE (04:14)
[2018-07-21 05:01] LABS: ABG ALLEN TEST YES; ARTERIAL BLOOD GAS O2 CAPACITY 13.7 mL/dL (16-24); ARTERIAL BLOOD GAS O2 CONTENT 13.5 ML/dL (15-23); ARTERIAL BLOOD GAS O2 SAT 98.5 % (95-98); ARTERIAL BLOOD GAS PCO2 48 mm/Hg (35-45); ARTERIAL BLOOD GAS PH 7.46 (7.35-7.45); ARTERIAL BLOOD GAS PO2 80 mm/Hg (80-100); ARTERIAL BLOOD GAS TCO2 35.6 mmol/L (22-28)
[2018-07-21 06:52] LABS: BASO # 0.1 K/uL (0.0-0.2); BASO % 1.1 % (0.0-2.0); EOS # 0.2 K/uL (0.0-0.7); EOS % 1.4 % (0.0-4.0); HEMOGLOBIN 9.9 g/dL (12.0-18.0); LYMPH # 1.5 K/uL (1.0-4.3); LYMPH % 11.8 % (20.0-40.0); MEAN CELL VOLUME 89.9 fl (80.0-94.0); MEAN CORPUSCULAR HEMOGLOBIN 28.6 pg (27.0-31.0); MEAN CORPUSCULAR HGB CONC 31.8 g/dL (33.0-37.0); MONO # 1.3 K/uL (0.0-0.8); MONO % 10.7 % (0.0-10.0); NEUT # 9.4 K/uL (1.8-7.0); NRBC % 0.1 % (0.0-0.0); RBC 3.47 Mil/uL (4.40-5.90); RED CELL DISTRIBUTION WIDTH 16.8 % (11.5-14.5); WHITE BLOOD COUNT 12.5 K/uL (4.8-10.8)
[2018-07-21 07:04] LABS: ALBUMIN 3.4 g/dL (3.5-5.0); ALT/SGPT 62 U/L (21-72); AST/SGOT 48 U/L (17-59); BLOOD UREA NITROGEN 43 mg/dl (9-20); CALCIUM 8.6 mg/dL (8.4-10.2); GFR NON-AFRICAN AMERICAN > 60
--- NOTE | 2018-07-21 07:45 | RAD ---
Date of service: 07/21/2018 HISTORY: intubated COMPARISON: 07/20/2018 TECHNIQUE: 1 view obtained. FINDINGS: LUNGS: No active pulmonary disease. Endotracheal tube tip at clavicle level. Approximately 10 cm cephalad to the brian. PLEURA: Small left pleural effusion-similar, no pneumothorax apparent. CARDIOVASCULAR: There is presence of aortic atherosclerotic calcification on x-ray. Moderate cardiomegaly-similar pulmonary vasculature probably top-normal. OSSEOUS STRUCTURES: Bilateral shoulder arthrosis. VISUALIZED UPPER ABDOMEN: Nasogastric tube is inserted tip near gastric cardia. OTHER FINDINGS: None. IMPRESSION: Small left pleural effusion with probable concomitant passive minimal compressive atelectasis left lung [id number] Cardiomegaly similar-appearing Endotracheal tube and nasogastric tube as above.
--- NOTE | 2018-07-21 07:52 | CP.CCUPN ---
<Yumi Bang - Last Filed: 07/21/18 10:44> CCU Subjective - Physician Review Subjective (Free Text): Patient tolerated trials of CPAP yesterday, this morning ETT tube was noted to be out of location Patient seen and examined by bedside this AM with Helpdesk Specialist, Dr. Dickens Patient is awake, alert and tolerating CPAP this AM. ETT tube looks displaced, patient breathing against the tube Decision was made to extubate the patient and place him on venti mask Post extubation, patient asking to eat pasta. Patient tolerated extubation, O2 100%, post extubation ABG reviewed, good O2 saturation noted. Heart rate a fib on monitor, rate well controlled Assessment/Plan: 1. Acute respiratory failure, hypoxia, hypercarbia -hx of CHF and COPD -extuabted, currently tolerating Venti mask -repeat CXR tomorrow -c/w lasix and duonab Inh 2. Pneumonia -improved at this time given normal procalcitonin, no leukocytosis and remains afebrile -on Vanc and doxy -ID on board -consider d/c abx 3. Pleural effusion -CXR today, small pleural effusion with atelectasis -s/p chest tube 07/18 and thoracentesis 07/19 -Fluid sig for exudative per LDH -f/w fluid cultures 4. Cellulitis, RLE -resolved 5. Acute kidney injury -likely from sepsis, hypoxia -improved -nephrology on board 6. Anasarca -improved fluid balance -peripheral edema resolved at this time -nephrology on board; c/w Lasix for now 7. chronic a fib -cardiology on board -rate controlled and on Lovenox 8. Ileus/constipation -GI consulted - pyridostigmine to BID. Continue PM senna -KUB tomorrow 9. ETOH abuse -per family hx of ETOH abuse, wine daily per pt -c/w folate and thiamine 10. Diet -d/c tube feeds -swallow screen -diet as tolerated 11. Dvt prolx -d/c heparin drip -Lovenox SC CCU Objective - Vital Signs / Intake & Output Vital Signs (Last 4 hours): Vital Signs Temp Pulse Resp BP Pulse Ox 07/21/18 06:00 88 31 H 114/69 97 07/21/18 05:00 87 31 H 104/62 97 07/21/18 04:00 97.6 F 92 H 31 H 95/56 L 96 Intake and Output (Last 8hrs): Intake & Output 07/20/18 07/21/18 07/21/18 22:59 06:59 14:59 Intake Total 1386 1002 Output Total 1200 700 Balance 186 302 Weight 80.649 kg Intake: IV 306 112 Intake, Piggyback 100 250 Tube Feeding 880 440 Free Water Flush 100 200 Output: Urine 700 Urethral (Hyde) 700 Emesis 1200 - Physical Exam Head: Positive for: Atraumatic Pupils: Positive for: PERRL Respiratory/Chest: Positive for: Good Air Exchange, Rhonchi (b/l more in R side ), Other (Rales on B/L lower lung field and left lung). Negative for: Respiratory Distress, Accessory Muscle Use, Wheezes, Rales, Retracting, Tachypneic Cardiovascular: Positive for: Normal S1, S2, Irregular Rhythm Abdomen: Positive for: Distention, Normal Bowel Sounds. Negative for: Tenderness, Peritoneal Signs Upper Extremity: Positive for: Normal Inspection, Edema (small amount ) Skin: Positive for: Warm Psychiatric: Negative for: Alert - Medications Active Medications: Active Medications Generic Name Dose Route Start Last Admin Trade Name Freq PRN Reason Stop Dose Admin Acetaminophen 650 mg 07/08/18 08:01 07/17/18 04:05 Tylenol 650mg/20.3ml Solution Ud NG 650 mg Q6 PRN Administration Fever>100.4F Albuterol/Ipratropium 3 ml 07/08/18 14:00 07/21/18 07:45 Duoneb 3 Mg/0.5 Mg (3 Ml) Ud INH 3 ml RQ6 LISSA Administration Aspirin 81 mg 07/08/18 09:00 07/20/18 10:26 Ecotrin PO 81 mg DAILY LISSA Administration Atorvastatin Calcium 20 mg 07/08/18 22:00 07/20/18 21:02 Lipitor PO 20 mg HS LISSA Administration Docusate Sodium 100 mg 07/16/18 17:00 07/20/18 16:55 Colace Liquid PO 100 mg BID LISSA Administration Folic Acid 1 mg 07/08/18 11:15 07/20/18 10:26 Folic Acid NG 1 mg DAILY LISSA Administration Furosemide 40 mg 07/21/18 09:00 Lasix IVP DAILY LISSA Doxycycline Hyclate 100 mg/ 100 mls @ 100 mls/hr 07/17/18 09:45 07/20/18 20:54 Sodium Chloride IVPB 100 mls/hr Q12 LISSA Administration Protocol Vancomycin HCl 750 mg/ Sodium 250 mls @ 166.667 mls/hr 07/19/18 01:30 07/21/18 00:46 Chloride IVPB 166.667 mls/hr Q12H LISSA Administration Protocol Heparin Sodium/Dextrose 25,000 units in 250 mls @ 14 mls/hr 07/19/18 05:15 07/20/18 16:57 Heparin 25,000 Units/250ml In D5w IV 12 mls/hr .[id number] LISSA Administration Protocol Dexmedetomidine HCl 400 mcg/ 100 mls @ 4.08 mls/hr 07/21/18 04:14 07/21/18 05:07 Sodium Chloride IV 07/22/18 04:13 0.4 mcg/kg/hr .Q24H ONE 8.16 mls/hr Administration Protocol 0.2 MCG/KG/HR Lactic Acid 1 applic 07/08/18 09:00 07/20/18 16:58 Lac-Hydrin 12% Lotion (225 G) TOP 1 applic TID LISSA Administration Lactulose 10 gm 07/08/18 03:46 Enulose PO DAILY PRN Constipation Nystatin 1 applic 07/08/18 13:00 07/20/18 16:58 Nystop Topical Powder TOP 1 applic TID LISSA Administration Ondansetron HCl 4 mg 07/08/18 03:44 Zofran Inj IVP Q6H PRN Nausea/Vomiting Pantoprazole Sodium 40 mg 07/17/18 09:00 07/20/18 10:32 Protonix Inj IVP 40 mg DAILY LISSA Administration Potassium Chloride 20 meq 07/18/18 17:00 07/20/18 17:02 Potassium Chloride Oral Soln NG 07/21/18 17:01 20 meq BID LISSA Administration Pyridostigmine [place] 30 mg 07/20/18 09:00 07/20/18 17:03 Mestinon Tab PO 30 mg BID LISSA Administration Sennosides 8.6 mg 07/08/18 09:00 07/20/18 17:02 Senokot Tab PO 8.6 mg BID LISSA Administration Thiamine HCl 100 mg 07/08/18 11:15 07/20/18 10:34 Vitamin B1 Tab NG 100 mg DAILY LISSA Administration - Patient Studies Lab Studies: Microbiology Studies 07/19/18 12:16 Gram Stain - Final Pleural Fluid Body Fluid Culture - Preliminary NO GROWTH AFTER 24 HOURS Lab Studies 07/21/18 07/21/18 07/21/18 Range/Units 06:30 04:53 04:25 WBC (4.8-10.8) K/uL RBC (4.40-5.90) Mil/uL Hgb (12.0-18.0) g/dL Hct (35.0-51.0) % MCV (80.0-94.0) fl MCH (27.0-31.0) pg MCHC (33.0-37.0) g/dL RDW (11.5-14.5) % Plt Count (130-400) K/uL MPV (7.2-11.7) fl Neut % (Auto) (50.0-75.0) % Lymph % (Auto) (20.0-40.0) % [place] % (Auto) (0.0-10.0) % Eos % (Auto) (0.0-4.0) % Baso % (Auto) (0.0-2.0) % Neut # (Auto) (1.8-7.0) K/uL Lymph # (Auto) (1.0-4.3) K/uL [place] # (Auto) (0.0-0.8) K/uL Eos # (Auto) (0.0-0.7) K/uL Baso # (Auto) (0.0-0.2) K/uL APTT 42.4 H (25.6-37.1) Seconds pCO2 48 H (35-45) mm/Hg pO2 80 (80-100) mm/Hg HCO3 32.0 H (21-28) mmol/L ABG pH 7.46 H (7.35-7.45) ABG Total CO2 35.6 H (22-28) mmol/L ABG O2 Saturation 98.5 H (95-98) % ABG O2 Content 13.5 L (15-23) ML/dL ABG Base Excess 9.1 H (-2.0-3.0) mmol/L ABG Hemoglobin 10.0 L (11.7-17.4) g/dL ABG Carboxyhemoglobin 2.0 H (0.5-1.5) % POC ABG HHb (Measured) 1.5 (0.0-5.0) % ABG Methemoglobin 1.2 (0.0-3.0) % ABG O2 Capacity 13.7 L (16-24) mL/dL Nam Test Yes A-a O2 Difference 74.0 mm/Hg Hgb O2 Saturation 95.3 (95.0-98.0) % Vent Mode A/c Mechanical Rate 14 FiO2 30.0 % Tidal Volume 450 PEEP 5 Pressure Support Sodium (132-148) mmol/l Potassium (3.6-5.0) MMOL/L Chloride (98-107) mmol/L Carbon Dioxide (22-30) mmol/L Anion Gap (10-20) BUN (9-20) mg/dl Creatinine (0.8-1.5) mg/dl Est GFR ( Amer) Est GFR (Non-Af Amer) Random Glucose (75-110) mg/dL Calcium (8.4-10.2) mg/dL Phosphorus (2.5-4.5) mg/dl Magnesium (1.6-2.3) MG/DL Total Bilirubin (0.2-1.3) mg/dl AST (17-59) U/L ALT (21-72) U/L Alkaline Phosphatase (38-126) U/L Total Protein (6.3-8.2) G/DL Albumin (3.5-5.0) g/dL Globulin (2.2-3.9) gm/dL Albumin/Globulin Ratio (1.0-2.1) Procalcitonin (0.19-0.49) NG/ML Ur Random Sodium 77 meq/L Ur Random Potassium 62.0 mmol/L 07/21/18 07/21/18 07/20/18 Range/Units 04:25 04:25 10:08 WBC 12.5 H (4.8-10.8) K/uL RBC 3.47 L (4.40-5.90) Mil/uL Hgb 9.9 L (12.0-18.0) g/dL Hct 31.2 L (35.0-51.0) % MCV 89.9 (80.0-94.0) fl MCH 28.6 (27.0-31.0) pg MCHC 31.8 L (33.0-37.0) g/dL RDW 16.8 H (11.5-14.5) % Plt Count 246 (130-400) K/uL MPV 10.0 (7.2-11.7) fl Neut % (Auto) 75.0 (50.0-75.0) % Lymph % (Auto) 11.8 L (20.0-40.0) % [place] % (Auto) 10.7 H (0.0-10.0) % Eos % (Auto) 1.4 (0.0-4.0) % Baso % (Auto) 1.1 (0.0-2.0) % Neut # (Auto) 9.4 H (1.8-7.0) K/uL Lymph # (Auto) 1.5 (1.0-4.3) K/uL [place] # (Auto) 1.3 H (0.0-0.8) K/uL Eos # (Auto) 0.2 (0.0-0.7) K/uL Baso # (Auto) 0.1 (0.0-0.2) K/uL APTT (25.6-37.1) Seconds pCO2 44 (35-45) mm/Hg pO2 71 L (80-100) mm/Hg HCO3 32.8 H (21-28) mmol/L ABG pH 7.50 H (7.35-7.45) ABG Total CO2 35.7 H (22-28) mmol/L ABG O2 Saturation 97.9 (95-98) % ABG O2 Content 13.3 L (15-23) ML/dL ABG Base Excess 10.1 H (-2.0-3.0) mmol/L ABG Hemoglobin 9.9 L (11.7-17.4) g/dL ABG Carboxyhemoglobin 2.1 H (0.5-1.5) % POC ABG HHb (Measured) 2.0 (0.0-5.0) % ABG Methemoglobin 1.1 (0.0-3.0) % ABG O2 Capacity 13.6 L (16-24) mL/dL Nam Test Yes A-a O2 Difference 88.0 mm/Hg Hgb O2 Saturation 94.8 L (95.0-98.0) % Vent Mode Cpap+ps Mechanical Rate FiO2 30.0 % Tidal Volume PEEP 5 Pressure Support 14 Sodium 137 (132-148) mmol/l Potassium 4.7 (3.6-5.0) MMOL/L Chloride 99 (98-107) mmol/L Carbon Dioxide 31 H (22-30) mmol/L Anion Gap 12 (10-20) BUN 43 H (9-20) mg/dl Creatinine 1.1 (0.8-1.5) mg/dl Est GFR ( Amer) > 60 Est GFR (Non-Af Amer) > 60 Random Glucose 142 H (75-110) mg/dL Calcium 8.6 (8.4-10.2) mg/dL Phosphorus (2.5-4.5) mg/dl Magnesium (1.6-2.3) MG/DL Total Bilirubin 0.7 (0.2-1.3) mg/dl AST 48 (17-59) U/L ALT 62 (21-72) U/L Alkaline Phosphatase 116 (38-126) U/L Total Protein 6.8 (6.3-8.2) G/DL Albumin 3.4 L (3.5-5.0) g/dL Globulin 3.3 (2.2-3.9) gm/dL Albumin/Globulin Ratio 1.0 (1.0-2.1) Procalcitonin (0.19-0.49) NG/ML Ur Random Sodium meq/L Ur Random Potassium mmol/L 07/20/18 07/20/18 07/20/18 Range/Units 08:45 07:15 07:15 WBC 10.9 H (4.8-10.8) K/uL RBC 3.37 L (4.40-5.90) Mil/uL Hgb 9.7 L (12.0-18.0) g/dL Hct 30.0 L (35.0-51.0) % MCV 89.1 (80.0-94.0) fl MCH 28.8 (27.0-31.0) pg MCHC 32.3 L (33.0-37.0) g/dL RDW 16.4 H (11.5-14.5) % Plt Count 249 (130-400) K/uL MPV 9.6 (7.2-11.7) fl Neut % (Auto) 72.9 (50.0-75.0) % Lymph % (Auto) 13.0 L (20.0-40.0) % [place] % (Auto) 11.6 H (0.0-10.0) % Eos % (Auto) 1.4 (0.0-4.0) % Baso % (Auto) 1.1 (0.0-2.0) % Neut # (Auto) 7.9 H (1.8-7.0) K/uL Lymph # (Auto) 1.4 (1.0-4.3) K/uL [place] # (Auto) 1.3 H (0.0-0.8) K/uL Eos # (Auto) 0.2 (0.0-0.7) K/uL Baso # (Auto) 0.1 (0.0-0.2) K/uL APTT (25.6-37.1) Seconds pCO2 (35-45) mm/Hg pO2 (80-100) mm/Hg HCO3 (21-28) mmol/L ABG pH (7.35-7.45) ABG Total CO2 (22-28) mmol/L ABG O2 Saturation (95-98) % ABG O2 Content (15-23) ML/dL ABG Base Excess (-2.0-3.0) mmol/L ABG Hemoglobin (11.7-17.4) g/dL ABG Carboxyhemoglobin (0.5-1.5) % POC ABG HHb (Measured) (0.0-5.0) % ABG Methemoglobin (0.0-3.0) % ABG O2 Capacity (16-24) mL/dL Nam Test A-a O2 Difference mm/Hg Hgb O2 Saturation (95.0-98.0) % Vent Mode Mechanical Rate FiO2 % Tidal Volume PEEP Pressure Support Sodium 138 (132-148) mmol/l Potassium 4.3 (3.6-5.0) MMOL/L Chloride 98 (98-107) mmol/L Carbon Dioxide 33 H (22-30) mmol/L Anion Gap 11 (10-20) BUN 37 H (9-20) mg/dl Creatinine 1.1 (0.8-1.5) mg/dl Est GFR ( Amer) > 60 Est GFR (Non-Af Amer) > 60 Random Glucose 149 H (75-110) mg/dL Calcium 8.7 (8.4-10.2) mg/dL Phosphorus 5.1 H (2.5-4.5) mg/dl Magnesium 2.1 (1.6-2.3) MG/DL Total Bilirubin 0.6 (0.2-1.3) mg/dl AST 61 H (17-59) U/L ALT 61 (21-72) U/L Alkaline Phosphatase 114 (38-126) U/L Total Protein 6.3 (6.3-8.2) G/DL Albumin 3.2 L (3.5-5.0) g/dL Globulin 3.1 (2.2-3.9) gm/dL Albumin/Globulin Ratio 1.0 (1.0-2.1) Procalcitonin 0.33 (0.19-0.49) NG/ML Ur Random Sodium meq/L Ur Random Potassium mmol/L Laboratory Results - last 24 hr 07/20/18 07/20/18 07/20/18 07:15 07:15 08:45 WBC 10.9 H RBC 3.37 L Hgb 9.7 L Hct 30.0 L MCV 89.1 MCH 28.8 MCHC 32.3 L RDW 16.4 H Plt Count 249 MPV 9.6 Neut % (Auto) 72.9 Lymph % (Auto) 13.0 L [place] % (Auto) 11.6 H Eos % (Auto) 1.4 Baso % (Auto) 1.1 Neut # (Auto) 7.9 H Lymph # (Auto) 1.4 [place] # (Auto) 1.3 H Eos # (Auto) 0.2 Baso # (Auto) 0.1 APTT pCO2 pO2 HCO3 ABG pH ABG Total CO2 ABG O2 Saturation ABG O2 Content ABG Base Excess ABG Hemoglobin ABG Carboxyhemoglobin POC ABG HHb (Measured) ABG Methemoglobin ABG O2 Capacity Nam Test A-a O2 Difference Hgb O2 Saturation Vent Mode Mechanical Rate FiO2 Tidal Volume PEEP Pressure Support Sodium 138 Potassium 4.3 Chloride 98 Carbon Dioxide 33 H Anion Gap 11 BUN 37 H Creatinine 1.1 Est GFR ( Amer) > 60 Est GFR (Non-Af Amer) > 60 Random Glucose 149 H Calcium 8.7 Phosphorus 5.1 H Magnesium 2.1 Total Bilirubin 0.6 AST 61 H ALT 61 Alkaline Phosphatase 114 Total Protein 6.3 Albumin 3.2 L Globulin 3.1 Albumin/Globulin Ratio 1.0 Procalcitonin 0.33 Ur Random Sodium Ur Random Potassium 07/20/18 07/21/18 07/21/18 10:08 04:25 04:25 WBC 12.5 H RBC 3.47 L Hgb 9.9 L Hct 31.2 L MCV 89.9 MCH 28.6 MCHC 31.8 L RDW 16.8 H Plt Count 246 MPV 10.0 Neut % (Auto) 75.0 Lymph % (Auto) 11.8 L [place] % (Auto) 10.7 H Eos % (Auto) 1.4 Baso % (Auto) 1.1 Neut # (Auto) 9.4 H Lymph # (Auto) 1.5 [place] # (Auto) 1.3 H Eos # (Auto) 0.2 Baso # (Auto) 0.1 APTT pCO2 44 pO2 71 L HCO3 32.8 H ABG pH 7.50 H ABG Total CO2 35.7 H ABG O2 Saturation 97.9 ABG O2 Content 13.3 L ABG Base Excess 10.1 H ABG Hemoglobin 9.9 L ABG Carboxyhemoglobin 2.1 H POC ABG HHb (Measured) 2.0 ABG Methemoglobin 1.1 ABG O2 Capacity 13.6 L Nam Test Yes A-a O2 Difference 88.0 Hgb O2 Saturation 94.8 L Vent Mode Cpap+ps Mechanical Rate FiO2 30.0 Tidal Volume PEEP 5 Pressure Support 14 Sodium 137 Potassium 4.7 Chloride 99 Carbon Dioxide 31 H Anion Gap 12 BUN 43 H Creatinine 1.1 Est GFR ( Amer) > 60 Est GFR (Non-Af Amer) > 60 Random Glucose 142 H Calcium 8.6 Phosphorus Magnesium Total Bilirubin 0.7 AST 48 ALT 62 Alkaline Phosphatase 116 Total Protein 6.8 Albumin 3.4 L Globulin 3.3 Albumin/Globulin Ratio 1.0 Procalcitonin Ur Random Sodium Ur Random Potassium 07/21/18 07/21/18 07/21/18 04:25 04:53 06:30 WBC RBC Hgb Hct MCV MCH MCHC RDW Plt Count MPV Neut % (Auto) Lymph % (Auto) [place] % (Auto) Eos % (Auto) Baso % (Auto) Neut # (Auto) Lymph # (Auto) [place] # (Auto) Eos # (Auto) Baso # (Auto) APTT 42.4 H pCO2 48 H pO2 80 HCO3 32.0 H ABG pH 7.46 H ABG Total CO2 35.6 H ABG O2 Saturation 98.5 H ABG O2 Content 13.5 L ABG Base Excess 9.1 H ABG Hemoglobin 10.0 L ABG Carboxyhemoglobin 2.0 H POC ABG HHb (Measured) 1.5 ABG Methemoglobin 1.2 ABG O2 Capacity 13.7 L Nam Test Yes A-a O2 Difference 74.0 Hgb O2 Saturation 95.3 Vent Mode A/c Mechanical Rate 14 FiO2 30.0 Tidal Volume 450 PEEP 5 Pressure Support Sodium Potassium Chloride Carbon Dioxide Anion Gap BUN Creatinine Est GFR ( Amer) Est GFR (Non-Af Amer) Random Glucose Calcium Phosphorus Magnesium Total Bilirubin AST ALT Alkaline Phosphatase Total Protein Albumin Globulin Albumin/Globulin Ratio Procalcitonin Ur Random Sodium 77 Ur Random Potassium 62.0 Radiology Impressions: Radiology Impressions Thoracentesis 07/19/18 12:08 IMPRESSION: Ultrasound guided right and left thoracentesis.. Chest X-Ray 07/20/18 08:00 IMPRESSION: Probable small left pleural effusion. Chest X-Ray 07/21/18 06:00 IMPRESSION: Small left pleural effusion with probable concomitant passive minimal compressive atelectasis left lung [id number] Cardiomegaly similar-appearing Endotracheal tube and nasogastric tube as above. Fingerstick Blood Sugar Results: 140 <Pio Kang - Last Filed: 07/21/18 20:30> Assessment/Plan - Assessment and Plan (Free Text) Plan: Attestation: Patient seen and examined at the bedside with Resident Dr. Mariaa Bang; and I agree with her outline of plans and management documented above as discussed on AM rounds; reflecting my review of all applicable clinical data, and participation in the care of the patient throughout the day in ICU; today, July 21, 2018.
[2018-07-21] MEDS: Potassium Chloride 20 mEq/15 ml LIQ UD NG SCH ×2 (08:09→16:27)
--- NOTE | 2018-07-21 09:08 | CP.PCM.PN ---
Subjective - Date & Time of Evaluation Date of Evaluation: 07/21/18 Time of Evaluation: 09:05 - Subjective Subjective: Seen on rounds in the ICU with nursing and Php Programmer. Interim events and EMR entries noted. Had been on CPAP/PS ventilation during the day yesterday. Placed back on mechanical ventilation overnight. Morning CXR reviewed: ETT is very high in position. Left hemidiaphragm is still indistinct. Labs noted this AM-CBC/BMP/ABG noted. Awake and alert, looks apprehensive. Tachypneic, asynchronous respiratory pattern. Suction catheter could not be passed beyond the ETT tip. Audible breath sounds around the ETT noted. Diminished breath sounds in both lungs with few expiratory wheezes. Heart sounds distant, irregular. Abdomen is globose, non-tender with + BS. No edema of LEs, still has dependant edema of trunk. Decision made to extubate at that time as position of ETT is questionable. Placed on V mask and then switched to CAM. Patient had strong cough post extubation and was able to raise a moderate volume of sputum. Breath sounds were present bilaterally and respiratory pattern was also improved. Patient was asking when he could eat, was not in any distress, saturation 99% on 40% O2. Will be monitored closely and ABG requested for 10AM. CCT 40min Objective - Vital Signs/Intake and Output Vital Signs (last 24 hours): Temp Pulse Resp BP Pulse Ox 98.8 F 85 31 H 115/60 97 07/21/18 08:00 07/21/18 08:00 07/21/18 08:00 07/21/18 08:08 07/21/18 08:00 Intake and Output: 07/20/18 07/21/18 23:59 11:59 Intake Total 1636 1219 Output Total 1200 775 Balance 436 444 - Medications Medications: Current Medications Acetaminophen (Tylenol 650mg/20.3ml Solution Ud) 650 mg NG Q6 PRN PRN Reason: Fever>100.4F Last Admin: 07/17/18 04:05 Dose: 650 mg Albuterol/Ipratropium (Duoneb 3 Mg/0.5 Mg (3 Ml) Ud) 3 ml INH RQID LISSA Aspirin (Ecotrin) 81 mg PO DAILY REPLACED BY [facility] Last Admin: 07/21/18 08:08 Dose: 81 mg Atorvastatin Calcium (Lipitor) 20 mg PO HS REPLACED BY [facility] Last Admin: 07/20/18 21:02 Dose: 20 mg Docusate Sodium (Colace Liquid) 100 mg PO BID REPLACED BY [facility] Last Admin: 07/21/18 08:07 Dose: Not Given Enoxaparin Sodium (Lovenox) 80 mg SC Q12 REPLACED BY [facility]; Protocol Folic Acid (Folic Acid) 1 mg NG DAILY REPLACED BY [facility] Last Admin: 07/21/18 08:08 Dose: 1 mg Furosemide (Lasix) 40 mg IVP DAILY REPLACED BY [facility] Last Admin: 07/21/18 08:08 Dose: 40 mg Doxycycline Hyclate 100 mg/ (Sodium Chloride) 100 mls @ 100 mls/hr IVPB Q12 REPLACED BY [facility]; Protocol Last Admin: 07/21/18 08:10 Dose: 100 mls/hr Vancomycin HCl 750 mg/ Sodium (Chloride) 250 mls @ 166.667 mls/hr IVPB Q12H LISSA; Protocol Last Admin: 07/21/18 00:46 Dose: 166.667 mls/hr Lactic Acid (Lac-Hydrin 12% Lotion (225 G)) 1 applic TOP TID REPLACED BY [facility] Last Admin: 07/21/18 08:08 Dose: 1 applic Nystatin (Nystop Topical Powder) 1 applic TOP TID REPLACED BY [facility] Last Admin: 07/21/18 08:09 Dose: 1 applic Ondansetron HCl (Zofran Inj) 4 mg IVP Q6H PRN PRN Reason: Nausea/Vomiting Pantoprazole Sodium (Protonix Inj) 40 mg IVP DAILY REPLACED BY [facility] Last Admin: 07/21/18 08:09 Dose: 40 mg Potassium Chloride (Potassium Chloride Oral Soln) 20 meq NG BID REPLACED BY [facility] Stop: 07/21/18 17:01 Last Admin: 07/21/18 08:09 Dose: 20 meq Pyridostigmine [place] (Mestinon Tab) 30 mg PO BID REPLACED BY [facility] Last Admin: 07/21/18 08:09 Dose: 30 mg Thiamine HCl (Vitamin B1 Tab) 100 mg NG DAILY REPLACED BY [facility] Last Admin: 07/21/18 08:11 Dose: 100 mg - Labs Labs: 07/21/18 04:25 07/21/18 04:25 PT 12.6 Seconds (9.8-13.1) 07/08/18 00:19 INR 1.1 07/08/18 00:19 APTT 42.4 Seconds (25.6-37.1) H 07/21/18 04:25 Assessment and Plan (1) Respiratory failure with hypoxia and hypercapnia Status: Acute (2) Endotracheally intubated Status: Acute (3) Pleural effusion, left Status: Suspected (4) Dependent edema Status: Chronic (5) COPD (chronic obstructive pulmonary disease) Status: Chronic (6) Pneumonia Status: Acute
[2018-07-21 10:03] LABS: ABG ALLEN TEST YES; ARTERIAL BLOOD GAS HCO3 32.3 mmol/L (21-28); ARTERIAL BLOOD GAS HEMOGLOBIN 10.3 g/dL (11.7-17.4); ARTERIAL BLOOD GAS O2 CAPACITY 14.4 mL/dL (16-24); ARTERIAL BLOOD GAS O2 CONTENT 14.4 ML/dL (15-23); ARTERIAL BLOOD GAS O2 SAT 100.2 % (95-98); ARTERIAL BLOOD GAS PCO2 47 mm/Hg (35-45); ARTERIAL BLOOD GAS PH 7.47 (7.35-7.45); ARTERIAL BLOOD GAS PO2 141 mm/Hg (80-100); ARTERIAL BLOOD GAS TCO2 35.6 mmol/L (22-28)
[2018-07-21] MEDS: Enoxaparin 80 mg Syringe SC SCH ×2 (10:05→21:15)
--- NOTE | 2018-07-21 10:08 | PCM.PROC ---
Procedures Attestation:: I certify that I have explained the specified Operation(s) or Procedure(s), risks, benefits and reasonable alternatives to the Patient and/or other person responsible. The opportunity was given to ask questions and all questions answered - Extubation Clinical Parameters: Resolution/Stabilization of disease process, Hemodynamically Stable, Intact Cough/Gag Reflex, Spontaneous Respirations, Acceptable Vent Settings (FIO2<50%, PEEP<8, PaO2>75, pH>7.25) Weaning Criteria Met: Yes General Weaning Approaches: Pressure Support Ventilation (PSV) Weaning Patient Condition: Patient has been successfully extubated and assessed Oxygen Therapy: O2 via Venti Mask Patient Tolerated Procedure: Well Additional Comments: Decision made to extubate patient after a short SBT on low level CPAP 5, PS 10, at 30% oxygen. ETT noted high up in position from the brian, up past the level of the clavicular heads. He is very awake and fully interactive with ICU team. Despite RR 34 and SPO2 89% at best ( whereby ot was 98% saturation on ABG and Telemetry) on present CPAP settings, decision still made to extubate since he appeared to be breathing around the ETT as it was most likely lying low in position at the posterior pharyngeal level, though no upper airway sounds were noted. ETT removed without difficulty and no apparent immediate stridor noted, placed onto 40% VM with 99% SPO2; strong cough noted and able to expectorate phlegm, able to converse with hoarse voice.
--- NOTE | 2018-07-21 10:47 | CP.PCM.PN ---
Subjective - Date & Time of Evaluation Date of Evaluation: 07/21/18 Time of Evaluation: 10:15 - Subjective Subjective: EXTUBATED AND STATES HE IS BREATHING WELL NO CHEST PAIN OR PALPITATIONS Objective - Vital Signs/Intake and Output Vital Signs (last 24 hours): Temp Pulse Resp BP Pulse Ox 98.8 F 88 28 H 105/65 100 07/21/18 08:00 07/21/18 09:57 07/21/18 09:57 07/21/18 09:57 07/21/18 09:57 Intake and Output: 07/21/18 07/21/18 06:59 18:59 Intake Total 1404 317 Output Total 700 475 Balance 704 -158 - Medications Medications: Current Medications Acetaminophen (Tylenol 650mg/20.3ml Solution Ud) 650 mg NG Q6 PRN PRN Reason: Fever>100.4F Last Admin: 07/17/18 04:05 Dose: 650 mg Albuterol/Ipratropium (Duoneb 3 Mg/0.5 Mg (3 Ml) Ud) 3 ml INH RQID [facility] Aspirin (Ecotrin) 81 mg PO DAILY [facility] Last Admin: 07/21/18 08:08 Dose: 81 mg Atorvastatin Calcium (Lipitor) 20 mg PO HS [facility] Last Admin: 07/20/18 21:02 Dose: 20 mg Docusate Sodium (Colace Liquid) 100 mg PO BID [facility] Last Admin: 07/21/18 08:07 Dose: Not Given Enoxaparin Sodium (Lovenox) 80 mg SC Q12 [facility]; Protocol Last Admin: 07/21/18 10:05 Dose: 80 mg Folic Acid (Folic Acid) 1 mg NG DAILY [facility] Last Admin: 07/21/18 08:08 Dose: 1 mg Furosemide (Lasix) 40 mg IVP DAILY [facility] Last Admin: 07/21/18 08:08 Dose: 40 mg Doxycycline Hyclate 100 mg/ (Sodium Chloride) 100 mls @ 100 mls/hr IVPB Q12 [facility]; Protocol Last Admin: 07/21/18 08:10 Dose: 100 mls/hr Vancomycin HCl 750 mg/ Sodium (Chloride) 250 mls @ 166.667 mls/hr IVPB Q12H [facility]; Protocol Last Admin: 07/21/18 00:46 Dose: 166.667 mls/hr Lactic Acid (Lac-Hydrin 12% Lotion (225 G)) 1 applic TOP TID [facility] Last Admin: 07/21/18 08:08 Dose: 1 applic Nystatin (Nystop Topical Powder) 1 applic TOP TID [facility] Last Admin: 07/21/18 08:09 Dose: 1 applic Ondansetron HCl (Zofran Inj) 4 mg IVP Q6H PRN PRN Reason: Nausea/Vomiting Pantoprazole Sodium (Protonix Inj) 40 mg IVP DAILY [facility] Last Admin: 07/21/18 08:09 Dose: 40 mg Potassium Chloride (Potassium Chloride Oral Soln) 20 meq NG BID [facility] Stop: 07/21/18 17:01 Last Admin: 07/21/18 08:09 Dose: 20 meq Pyridostigmine [place] (Mestinon Tab) 30 mg PO BID [facility] Last Admin: 07/21/18 08:09 Dose: 30 mg Thiamine HCl (Vitamin B1 Tab) 100 mg NG DAILY [facility] Last Admin: 07/21/18 08:11 Dose: 100 mg - Labs Labs: 07/21/18 04:25 07/21/18 04:25 PT 12.6 Seconds (9.8-13.1) 07/08/18 00:19 INR 1.1 07/08/18 00:19 APTT 42.4 Seconds (25.6-37.1) H 07/21/18 04:25 - Respiratory Exam Respiratory Exam: Decreased Breath Sounds, Wheezes - Cardiovascular Exam Cardiovascular Exam: Irregular Rhythm, +S1, +S2 - Extremities Exam Additional comments: NO LE EDEMA - Additional Findings Additional findings: [employer] D[employer] ATRIAL FIBRILLATION K+ 4.7 THE 06/16/18 ECHOCARDIOGRAM WAS REVIEWED AND THE RV WAS NORMAL IN SIZE AND WALL THICKNESS. THERE WAS MILD TR WITH FLOW VELOCITY OF 2.85 M/S WITH A PASP OF ~ 42 MMHG Assessment and Plan - Assessment and Plan (Free Text) Assessment: PNEUMONIA TAVR CHRONIC ATRIAL FIBRILLATION HYPERTENSION HYPERLIPIDEMIA Plan: O2, CONTINUE ANTIBIOTICS, DUONEB, ASPIRIN, LOVENOX, FUROSEMIDE AND ATORVASTATIN
--- NOTE | 2018-07-21 11:14 | CP.PCM.PN ---
Subjective - Date & Time of Evaluation Date of Evaluation: 07/21/18 Time of Evaluation: 11:13 - Subjective Subjective: Patient awake and conscious not in acute distress extubated Objective - Vital Signs/Intake and Output Vital Signs (last 24 hours): Temp Pulse Resp BP Pulse Ox 98.8 F 88 28 H 105/65 100 07/21/18 08:00 07/21/18 09:57 07/21/18 09:57 07/21/18 09:57 07/21/18 09:57 Intake and Output: 07/21/18 07/21/18 06:59 18:59 Intake Total 1404 317 Output Total 700 475 Balance 704 -158 - Medications Medications: Current Medications Acetaminophen (Tylenol 650mg/20.3ml Solution Ud) 650 mg NG Q6 PRN PRN Reason: Fever>100.4F Last Admin: 07/17/18 04:05 Dose: 650 mg Albuterol/Ipratropium (Duoneb 3 Mg/0.5 Mg (3 Ml) Ud) 3 ml INH RQID [facility] Aspirin (Ecotrin) 81 mg PO DAILY [facility] Last Admin: 07/21/18 08:08 Dose: 81 mg Atorvastatin Calcium (Lipitor) 20 mg PO HS [facility] Last Admin: 07/20/18 21:02 Dose: 20 mg Docusate Sodium (Colace Liquid) 100 mg PO BID [facility] Last Admin: 07/21/18 08:07 Dose: Not Given Enoxaparin Sodium (Lovenox) 80 mg SC Q12 [facility]; Protocol Last Admin: 07/21/18 10:05 Dose: 80 mg Folic Acid (Folic Acid) 1 mg NG DAILY [facility] Last Admin: 07/21/18 08:08 Dose: 1 mg Furosemide (Lasix) 40 mg IVP DAILY [facility] Last Admin: 07/21/18 08:08 Dose: 40 mg Doxycycline Hyclate 100 mg/ (Sodium Chloride) 100 mls @ 100 mls/hr IVPB Q12 [facility]; Protocol Last Admin: 07/21/18 08:10 Dose: 100 mls/hr Vancomycin HCl 750 mg/ Sodium (Chloride) 250 mls @ 166.667 mls/hr IVPB Q12H [facility]; Protocol Last Admin: 07/21/18 00:46 Dose: 166.667 mls/hr Lactic Acid (Lac-Hydrin 12% Lotion (225 G)) 1 applic TOP TID [facility] Last Admin: 07/21/18 08:08 Dose: 1 applic Nystatin (Nystop Topical Powder) 1 applic TOP TID [facility] Last Admin: 07/21/18 08:09 Dose: 1 applic Pantoprazole Sodium (Protonix Inj) 40 mg IVP DAILY [facility] Last Admin: 07/21/18 08:09 Dose: 40 mg Potassium Chloride (Potassium Chloride Oral Soln) 20 meq NG BID [facility] Stop: 07/21/18 17:01 Last Admin: 07/21/18 08:09 Dose: 20 meq Pyridostigmine [place] (Mestinon Tab) 30 mg PO BID [facility] Last Admin: 07/21/18 08:09 Dose: 30 mg Thiamine HCl (Vitamin B1 Tab) 100 mg NG DAILY [facility] Last Admin: 07/21/18 08:11 Dose: 100 mg - Labs Labs: 07/21/18 04:25 07/21/18 04:25 PT 12.6 Seconds (9.8-13.1) 07/08/18 00:19 INR 1.1 07/08/18 00:19 APTT 42.4 Seconds (25.6-37.1) H 07/21/18 04:25 - Constitutional Appears: No Acute Distress - Eye Exam Eye Exam: Conjunctival injection - ENT Exam ENT Exam: Mucous Membranes Moist - Neck Exam Neck Exam: absent: Lymphadenopathy - Respiratory Exam Respiratory Exam: Rhonchi, NORMAL BREATHING PATTERN. absent: Chest Wall Tenderness - Cardiovascular Exam Cardiovascular Exam: absent: Gallop, JVD, Rubs - GI/Abdominal Exam GI & Abdominal Exam: Soft, Normal Bowel Sounds - Extremities Exam Extremities Exam: absent: Calf Tenderness - Back Exam Back Exam: absent: CVA tenderness (L), CVA tenderness (R) - Neurological Exam Neurological Exam: Awake - Skin Skin Exam: absent: Cyanosis Assessment and Plan (1) Cellulitis of right lower leg Status: Acute (2) Pneumonia Status: Acute (3) Respiratory failure with hypoxia and hypercapnia Status: Acute (4) Sepsis Status: Acute - Assessment and Plan (Free Text) Assessment: acute respi failure extubated PNA, CHF exacerbation ANTHONY improved HTN, COPD CHF s/p TAVR Obesity Recommendation Patient extubated awake doing much better Metabolic alkalosis improving CO2 down to 31 Kidney function stable electrolytes stable
[2018-07-21] MEDS ORDERED: Albuterol-Ipratrop 3 mg / 0.5 (3 ml) UD INH STA (12:23)
[2018-07-21] MEDS ORDERED: Racepinephrine 2.25% Inhal Soln 0.5 ML UD INH SCH (13:00)
[2018-07-21 13:19] LABS: ABG ALLEN TEST YES; ARTERIAL BLOOD GAS HCO3 31.4 mmol/L (21-28); ARTERIAL BLOOD GAS HEMOGLOBIN 10.7 g/dL (11.7-17.4); ARTERIAL BLOOD GAS O2 CAPACITY 14.7 mL/dL (16-24); ARTERIAL BLOOD GAS O2 CONTENT 14.7 ML/dL (15-23); ARTERIAL BLOOD GAS O2 SAT 99.7 % (95-98); ARTERIAL BLOOD GAS PCO2 51 mm/Hg (35-45); ARTERIAL BLOOD GAS PH 7.43 (7.35-7.45); ARTERIAL BLOOD GAS PO2 117 mm/Hg (80-100); ARTERIAL BLOOD GAS TCO2 35.5 mmol/L (22-28)
--- NOTE | 2018-07-21 13:42 | CP.PCM.PN ---
Subjective - Date & Time of Evaluation Date of Evaluation: 07/21/18 Time of Evaluation: 09:00 - Subjective Subjective: seen on rounds in ICU awake alert NAD extubated some stridor Objective - Vital Signs/Intake and Output Vital Signs (last 24 hours): Temp Pulse Resp BP Pulse Ox 98.5 F 93 H 26 H 116/69 98 07/21/18 12:00 07/21/18 12:00 07/21/18 12:00 07/21/18 12:00 07/21/18 12:00 Intake and Output: 07/21/18 07/21/18 06:59 18:59 Intake Total 1404 317 Output Total 700 750 Balance 704 -433 - Medications Medications: Current Medications Acetaminophen (Tylenol 650mg/20.3ml Solution Ud) 650 mg NG Q6 PRN PRN Reason: Fever>100.4F Last Admin: 07/17/18 04:05 Dose: 650 mg Albuterol/Ipratropium (Duoneb 3 Mg/0.5 Mg (3 Ml) Ud) 3 ml INH RQID [facility] Last Admin: 07/21/18 12:15 Dose: 3 ml Aspirin (Ecotrin) 81 mg PO DAILY [facility] Last Admin: 07/21/18 08:08 Dose: 81 mg Atorvastatin Calcium (Lipitor) 20 mg PO HS [facility] Last Admin: 07/20/18 21:02 Dose: 20 mg Docusate Sodium (Colace Liquid) 100 mg PO BID [facility] Last Admin: 07/21/18 08:07 Dose: Not Given Enoxaparin Sodium (Lovenox) 80 mg SC Q12 [facility]; Protocol Last Admin: 07/21/18 10:05 Dose: 80 mg Folic Acid (Folic Acid) 1 mg NG DAILY [facility] Last Admin: 07/21/18 08:08 Dose: 1 mg Furosemide (Lasix) 40 mg IVP DAILY [facility] Last Admin: 07/21/18 08:08 Dose: 40 mg Doxycycline Hyclate 100 mg/ (Sodium Chloride) 100 mls @ 100 mls/hr IVPB Q12 [facility]; Protocol Last Admin: 07/21/18 08:10 Dose: 100 mls/hr Vancomycin HCl 750 mg/ Sodium (Chloride) 250 mls @ 166.667 mls/hr IVPB Q12H [facility]; Protocol Last Admin: 07/21/18 12:30 Dose: 166.667 mls/hr Lactic Acid (Lac-Hydrin 12% Lotion (225 G)) 1 applic TOP TID [facility] Last Admin: 07/21/18 12:13 Dose: 1 applic Nystatin (Nystop Topical Powder) 1 applic TOP TID [facility] Last Admin: 07/21/18 12:14 Dose: 1 applic Pantoprazole Sodium (Protonix Inj) 40 mg IVP DAILY [facility] Last Admin: 07/21/18 08:09 Dose: 40 mg Potassium Chloride (Potassium Chloride Oral Soln) 20 meq NG BID [facility] Stop: 07/21/18 17:01 Last Admin: 07/21/18 08:09 Dose: 20 meq Pyridostigmine [place] (Mestinon Tab) 30 mg PO BID [facility] Last Admin: 07/21/18 08:09 Dose: 30 mg Racepinephrine (Racepinephrine 2.25% Inhl Soln) 0.5 ml INH Q15MIN [facility] Stop: 07/22/18 13:01 Thiamine HCl (Vitamin B1 Tab) 100 mg NG DAILY [facility] Last Admin: 07/21/18 08:11 Dose: 100 mg - Labs Labs: 07/21/18 04:25 07/21/18 04:25 PT 12.6 Seconds (9.8-13.1) 07/08/18 00:19 INR 1.1 07/08/18 00:19 APTT 42.4 Seconds (25.6-37.1) H 07/21/18 04:25 - Constitutional Appears: Non-toxic, No Acute Distress, Chronically Ill - Head Exam Head Exam: NORMOCEPHALIC - Eye Exam Eye Exam: absent: Scleral icterus - ENT Exam ENT Exam: Mucous Membranes Dry - Neck Exam Neck Exam: absent: Lymphadenopathy - Respiratory Exam Respiratory Exam: Decreased Breath Sounds - Cardiovascular Exam Cardiovascular Exam: REGULAR RHYTHM - GI/Abdominal Exam GI & Abdominal Exam: Distended - Rectal Exam Rectal Exam: Deferred - Exam Exam: NORMAL INSPECTION - Extremities Exam Extremities Exam: absent: Pedal Edema - Back Exam Back Exam: absent: CVA tenderness (L), CVA tenderness (R) - Neurological Exam Neurological Exam: Alert, Awake, Oriented x3 Neuro motor strength exam: Left Upper Extremity: 3, Right Upper Extremity: 3, Left Lower Extremity: 3, Right Lower Extremity: 3 - Psychiatric Exam Psychiatric exam: Depressed - Skin Skin Exam: Dry Assessment and Plan (1) Cellulitis of right lower leg Status: Acute (2) Atrial fibrillation Status: Acute (3) CHF (congestive heart failure) Status: Acute (4) Endotracheally intubated Status: Acute (5) Respiratory distress Status: Acute (6) Respiratory failure with hypoxia and hypercapnia Status: Acute (7) Dependent edema Status: Chronic (8) Pleural effusion, left Status: Suspected (9) Pneumonia Status: Acute (10) COPD (chronic obstructive pulmonary disease) Status: Chronic (11) Sepsis Status: Acute - Assessment and Plan (Free Text) Assessment: cont iv antibiotics as ordered for min 7 days
--- NOTE | 2018-07-21 17:13 | CP.PCM.PN ---
Subjective - Date & Time of Evaluation Date of Evaluation: 07/21/18 Time of Evaluation: 22:22 - Subjective Subjective: Improved Objective - Vital Signs/Intake and Output Vital Signs (last 24 hours): Temp Pulse Resp BP Pulse Ox 98.3 F 112 H 37 H 127/79 98 07/21/18 16:00 07/21/18 16:00 07/21/18 14:00 07/21/18 16:00 07/21/18 16:00 Intake and Output: 07/21/18 07/21/18 06:59 18:59 Intake Total 1404 567 Output Total 700 1050 Balance 704 -483 - Medications Medications: Current Medications Acetaminophen (Tylenol 650mg/20.3ml Solution Ud) 650 mg NG Q6 PRN PRN Reason: Fever>100.4F Last Admin: 07/17/18 04:05 Dose: 650 mg Albuterol/Ipratropium (Duoneb 3 Mg/0.5 Mg (3 Ml) Ud) 3 ml INH RQID [facility] Last Admin: 07/21/18 15:34 Dose: 3 ml Aspirin (Ecotrin) 81 mg PO DAILY [facility] Last Admin: 07/21/18 08:08 Dose: 81 mg Atorvastatin Calcium (Lipitor) 20 mg PO HS [facility] Last Admin: 07/20/18 21:02 Dose: 20 mg Docusate Sodium (Colace Liquid) 100 mg PO BID [facility] Last Admin: 07/21/18 16:26 Dose: Not Given Enoxaparin Sodium (Lovenox) 80 mg SC Q12 [facility]; Protocol Last Admin: 07/21/18 10:05 Dose: 80 mg Folic Acid (Folic Acid) 1 mg NG DAILY [facility] Last Admin: 07/21/18 08:08 Dose: 1 mg Furosemide (Lasix) 40 mg IVP DAILY [facility] Last Admin: 07/21/18 08:08 Dose: 40 mg Doxycycline Hyclate 100 mg/ (Sodium Chloride) 100 mls @ 100 mls/hr IVPB Q12 [facility]; Protocol Last Admin: 07/21/18 08:10 Dose: 100 mls/hr Vancomycin HCl 750 mg/ Sodium (Chloride) 250 mls @ 166.667 mls/hr IVPB Q12H [facility]; Protocol Last Admin: 07/21/18 12:30 Dose: 166.667 mls/hr Lactic Acid (Lac-Hydrin 12% Lotion (225 G)) 1 applic TOP TID [facility] Last Admin: 07/21/18 16:26 Dose: 1 applic Nystatin (Nystop Topical Powder) 1 applic TOP TID [facility] Last Admin: 07/21/18 16:26 Dose: 1 applic Pantoprazole Sodium (Protonix Inj) 40 mg IVP DAILY [facility] Last Admin: 07/21/18 08:09 Dose: 40 mg Pyridostigmine [place] (Mestinon Tab) 30 mg PO BID [facility] Last Admin: 07/21/18 16:26 Dose: Not Given Racepinephrine (Racepinephrine 2.25% Inhl Soln) 0.5 ml INH Q15MIN [facility] Stop: 07/22/18 13:01 Last Admin: 07/21/18 13:49 Dose: 0.5 ml Thiamine HCl (Vitamin B1 Tab) 100 mg NG DAILY [facility] Last Admin: 07/21/18 08:11 Dose: 100 mg - Labs Labs: 07/21/18 04:25 07/21/18 04:25 PT 12.6 Seconds (9.8-13.1) 07/08/18 00:19 INR 1.1 07/08/18 00:19 APTT 42.4 Seconds (25.6-37.1) H 07/21/18 04:25 - Respiratory Exam Respiratory Exam: NORMAL BREATHING PATTERN - Cardiovascular Exam Cardiovascular Exam: REGULAR RHYTHM - GI/Abdominal Exam GI & Abdominal Exam: Normal Bowel Sounds Assessment and Plan - Assessment and Plan (Free Text) Assessment: Acute Respiratory Failure Multi lobar pneumonia Bilateral Pleural effusion S/P thoracentesis Hx COPD COSA Smoker ICU Intubated Pulmonary ID Hx CHF Afib S/P TAVR LV fxn good Cardiology anticoagulation Cellulitis RLE improved ABX Hx ANTHONY/ CKD Lasix Nephrology Chronic ETOH ?? HX Abdominal distention improved Colonic ileus ( recurrent ) + FOBT ?? [place]oquis held etiol ?? 2 to L-S surgery pyridostigmine Hx LLE edema cellulitis ?? ecchymosis?? Endovascular consult ??? CT scan done no significant findings Hx Hyperkalemia 2 to Bactrim?? Hold NAMRATA Hx Hypokalemia Hyperkalemia HTN Prediabetes Hx Low back surgery (Severe Spinal Stenosis) Post operative illeus
[2018-07-21] MEDS ORDERED: methylPREDNISolone 40 MG in Sodium Chloride 0.9% 50 ML IVPB SCH (23:04)
[2018-07-22] MEDS: MethylPREDNISolone 40 mg Vial IVP SCH ×4 (01:16→21:24)
[2018-07-22 05:28] LABS: BASO % 0.2 % (0.0-2.0); LYMPH # 0.6 K/uL (1.0-4.3); LYMPH % 3.7 % (20.0-40.0); MEAN CELL VOLUME 89.8 fl (80.0-94.0); MEAN CORPUSCULAR HGB CONC 31.1 g/dL (33.0-37.0); MEAN PLATELET VOLUME 9.5 fl (7.2-11.7); MONO # 0.3 K/uL (0.0-0.8); MONO % 1.9 % (0.0-10.0); NEUT # 15.5 K/uL (1.8-7.0); NEUT % 94.2 % (50.0-75.0); PLATELET COUNT 273 K/uL (130-400); RBC 3.58 Mil/uL (4.40-5.90); WHITE BLOOD COUNT 16.4 K/uL (4.8-10.8)
[2018-07-22 05:42] LABS: ALBUMIN 3.6 g/dL (3.5-5.0); ALT/SGPT 50 U/L (21-72); AST/SGOT 35 U/L (17-59); BLOOD UREA NITROGEN 48 mg/dl (9-20); CALCIUM 9.2 mg/dL (8.4-10.2); GFR NON-AFRICAN AMERICAN 57
[2018-07-22] MEDS: Albuterol-Ipratrop 3 mg / 0.5 (3 ml) UD INH SCH ×4 (07:19→19:13)
[2018-07-22] MEDS: Enoxaparin 80 mg Syringe SC SCH ×2 (08:20→21:24)
--- NOTE | 2018-07-22 08:25 | CP.PCM.PN ---
Subjective - Date & Time of Evaluation Date of Evaluation: 07/22/18 Time of Evaluation: 08: - Subjective Subjective: Seen on morning rounds in the ICU. Has tolerated extubation without any problems. Case discussed with the miller wood flour and patient's nurse. Still with rectal tube and simms catheter. Labs have been stable. Vital signs are stable, remains afebrile. Awake and alert, appears comfortable. Asking for PO intake, Nursing swallow exam passed. Pharynx is pink and moist w/o exudate, Neck is supple and trachea midline. No dullness on chest percussion. Dressings intact over both sites of prior thoracentesis. Basal dullness to percussion still present. Breath sounds are diminished in both lungs equally. Few scattered rhonchi and dry rales. No audible wheezes or bronchial breath sounds. Maintain on nasal canula O2. Physical therapy as tolerated. Continue aerosol therapies unchanged. Hopeful for removal of simms and rectal tube soon. Solumedrol decreased to 30MG Q12H. Objective - Vital Signs/Intake and Output Vital Signs (last 24 hours): Temp Pulse Resp BP Pulse Ox 97.6 F 88 24 111/85 99 07/22/18 08:00 07/22/18 08:00 07/22/18 08:00 07/22/18 08:20 07/22/18 08:00 Intake and Output: 07/21/18 07/22/18 23:59 11:59 Intake Total 350 0 Output Total 700 600 Balance -350 -600 - Medications Medications: Current Medications Acetaminophen (Tylenol 650mg/20.3ml Solution Ud) 650 mg NG Q6 PRN PRN Reason: Fever>100.4F Last Admin: 07/17/18 04:05 Dose: 650 mg Albuterol/Ipratropium (Duoneb 3 Mg/0.5 Mg (3 Ml) Ud) 3 ml INH RQID [facility] Last Admin: 07/22/18 07:19 Dose: 3 ml Aspirin (Ecotrin) 81 mg PO DAILY [facility] Last Admin: 07/22/18 08:19 Dose: Not Given Atorvastatin Calcium (Lipitor) 20 mg PO HS [facility] Last Admin: 07/21/18 21:13 Dose: Not Given Docusate Sodium (Colace Liquid) 100 mg PO BID [facility] Last Admin: 07/22/18 08:19 Dose: Not Given Enoxaparin Sodium (Lovenox) 80 mg SC Q12 [facility]; Protocol Last Admin: 07/22/18 08:20 Dose: 80 mg Folic Acid (Folic Acid) 1 mg NG DAILY [facility] Last Admin: 07/22/18 08:19 Dose: Not Given Furosemide (Lasix) 40 mg IVP DAILY [facility] Last Admin: 07/22/18 08:20 Dose: 40 mg Doxycycline Hyclate 100 mg/ (Sodium Chloride) 100 mls @ 100 mls/hr IVPB Q12 [facility]; Protocol Last Admin: 07/22/18 08:21 Dose: 100 mls/hr Vancomycin HCl 750 mg/ Sodium (Chloride) 250 mls @ 166.667 mls/hr IVPB Q12H [facility]; Protocol Last Admin: 07/22/18 01:14 Dose: 166.667 mls/hr Lactic Acid (Lac-Hydrin 12% Lotion (225 G)) 1 applic TOP TID [facility] Last Admin: 07/22/18 08:20 Dose: 1 applic Methylprednisolone (Solu-Medrol) 40 mg IVP Q8H [facility] Last Admin: 07/22/18 08:21 Dose: 40 mg Nystatin (Nystop Topical Powder) 1 applic TOP TID [facility] Last Admin: 07/22/18 08:21 Dose: 1 applic Pantoprazole Sodium (Protonix Inj) 40 mg IVP DAILY [facility] Last Admin: 07/22/18 08:21 Dose: 40 mg Pyridostigmine [place] (Mestinon Tab) 30 mg PO BID [facility] Last Admin: 07/22/18 08:20 Dose: Not Given Racepinephrine (Racepinephrine 2.25% Inhl Soln) 0.5 ml INH Q15MIN [facility] Stop: 07/22/18 13:01 Last Admin: 07/21/18 13:49 Dose: 0.5 ml Thiamine HCl (Vitamin B1 Tab) 100 mg NG DAILY [facility] Last Admin: 07/22/18 08:21 Dose: Not Given - Labs Labs: 07/22/18 05:00 07/22/18 05:00 PT 12.6 Seconds (9.8-13.1) 07/08/18 00:19 INR 1.1 07/08/18 00:19 APTT 42.4 Seconds (25.6-37.1) H 07/21/18 04:25 Assessment and Plan (1) Respiratory failure with hypoxia and hypercapnia Status: Chronic (2) Endotracheally intubated Status: Resolved (3) Pleural effusion, left Status: Resolved (4) Dependent edema Status: Resolved (5) COPD (chronic obstructive pulmonary disease) Status: Chronic (6) Pneumonia Status: Resolved
--- NOTE | 2018-07-22 08:56 | CP.PCM.PN ---
Subjective - Date & Time of Evaluation Date of Evaluation: 07/22/18 Time of Evaluation: 08:54 - Subjective Subjective: Seen on morning rounds. Interim events reviewed. AM chest x-ray reviewed. Case discussed with cotton header and pt's nurse. Labs and VS noted; has developed leukocytosis (maybe steroid related). Has remained afebrile and well oxygenated. ABG this AM satisfactory PaCO2 with normal pH. Patient is seated semi-upright in bed, awake and alert. Anxious to have something by mouth. Pharynx is pink and moist w/o exudate. Neck is supple and trachea midline. Dullness on chest percussion persists in the LLL region. Breath sounds are diminished bilaterally, especially in LLL. Bronchial character of breath sounds noted in the LLL. No audible wheezes, scattered rhonchi and few dry rales bilaterally. Heart sounds are distant, irregular 100 BPM. Abdomen is not distended, bowel sounds are decreased but present. Dependant edema posterior abdomen. Will start clear liquids and request swallow eval for further advancement. Switch to standard nasal canula at 4 LPM with humidification. Steroid dose reduced by half. Begin mobilization as soon as tolerated. Incentive spirometry and CPT. Objective - Vital Signs/Intake and Output Vital Signs (last 24 hours): Temp Pulse Resp BP Pulse Ox 97.6 F 88 24 111/85 99 07/22/18 08:00 07/22/18 08:00 07/22/18 08:00 07/22/18 08:20 07/22/18 08:00 Intake and Output: 07/21/18 07/22/18 23:59 11:59 Intake Total 350 0 Output Total 700 600 Balance -350 -600 - Medications Medications: Current Medications Acetaminophen (Tylenol 650mg/20.3ml Solution Ud) 650 mg NG Q6 PRN PRN Reason: Fever>100.4F Last Admin: 07/17/18 04:05 Dose: 650 mg Albuterol/Ipratropium (Duoneb 3 Mg/0.5 Mg (3 Ml) Ud) 3 ml INH RQID [facility] Last Admin: 07/22/18 07:19 Dose: 3 ml Aspirin (Ecotrin) 81 mg PO DAILY [facility] Last Admin: 07/22/18 08:19 Dose: Not Given Atorvastatin Calcium (Lipitor) 20 mg PO HS [facility] Last Admin: 07/21/18 21:13 Dose: Not Given Docusate Sodium (Colace Liquid) 100 mg PO BID [facility] Last Admin: 07/22/18 08:19 Dose: Not Given Enoxaparin Sodium (Lovenox) 80 mg SC Q12 [facility]; Protocol Last Admin: 07/22/18 08:20 Dose: 80 mg Folic Acid (Folic Acid) 1 mg NG DAILY [facility] Last Admin: 07/22/18 08:19 Dose: Not Given Furosemide (Lasix) 40 mg IVP DAILY [facility] Last Admin: 07/22/18 08:20 Dose: 40 mg Doxycycline Hyclate 100 mg/ (Sodium Chloride) 100 mls @ 100 mls/hr IVPB Q12 [facility]; Protocol Last Admin: 07/22/18 08:21 Dose: 100 mls/hr Vancomycin HCl 750 mg/ Sodium (Chloride) 250 mls @ 166.667 mls/hr IVPB Q12H [facility]; Protocol Last Admin: 07/22/18 01:14 Dose: 166.667 mls/hr Lactic Acid (Lac-Hydrin 12% Lotion (225 G)) 1 applic TOP TID [facility] Last Admin: 07/22/18 08:20 Dose: 1 applic Methylprednisolone (Solu-Medrol) 30 mg IVP Q12 [facility] Nystatin (Nystop Topical Powder) 1 applic TOP TID [facility] Last Admin: 07/22/18 08:21 Dose: 1 applic Pantoprazole Sodium (Protonix Inj) 40 mg IVP DAILY [facility] Last Admin: 07/22/18 08:21 Dose: 40 mg Pyridostigmine [place] (Mestinon Tab) 30 mg PO BID [facility] Last Admin: 07/22/18 08:20 Dose: Not Given Racepinephrine (Racepinephrine 2.25% Inhl Soln) 0.5 ml INH Q15MIN [facility] Stop: 07/22/18 13:01 Last Admin: 07/21/18 13:49 Dose: 0.5 ml Thiamine HCl (Vitamin B1 Tab) 100 mg NG DAILY [facility] Last Admin: 07/22/18 08:21 Dose: Not Given - Labs Labs: 07/22/18 05:00 07/22/18 05:00 PT 12.6 Seconds (9.8-13.1) 07/08/18 00:19 INR 1.1 07/08/18 00:19 APTT 42.4 Seconds (25.6-37.1) H 07/21/18 04:25 Assessment and Plan (1) Respiratory failure with hypoxia and hypercapnia Status: Acute (2) Endotracheally intubated Status: Acute (3) Pleural effusion, left Status: Suspected (4) Dependent edema Status: Chronic (5) COPD (chronic obstructive pulmonary disease) Status: Chronic (6) Pneumonia Status: Acute
[2018-07-22] MEDS ORDERED: methylPREDNISolone 30 MG in Sodium Chloride 0.9% 50 ML IV SCH (09:00)
--- NOTE | 2018-07-22 09:25 | CP.CCUPN ---
<Yumi Bang - Last Filed: 07/22/18 17:42> CCU Subjective - Physician Review Subjective (Free Text): Patient was successfully extubated yesterday. Initially stridor was noted post- extubation S/p tx with recemic epi ING and steroids IV Currently tolerating NC 4L. No acute overnight events, O2 saturation 96-99% Patient passed nursing swallow eval, towering water Awake, alert, verbal. States that his breathing is better then yesterday and cough had also improved Denies chest pain, chest tightness and dyspnea. Assessment/Plan: 1. Acute respiratory failure, hypoxia, hypercarbia -s/p extubation, respiratory status improving -hx of CHF and COPD -extuabted, currently tolerating Venti mask -c/w lasix and duonab Inh -taper IV steroids 2. Pneumonia -improved at this time given normal procalcitonin, no leukocytosis and remains afebrile -on Vanc and doxy -ID on board -consider d/c abx 3. Pleural effusion -CXR today, small pleural effusion with atelectasis -s/p chest tube 07/18 and thoracentesis 07/19 -Fluid sig for exudative per LDH -f/w fluid cultures 4. Cellulitis, RLE -resolved 5. Acute kidney injury -likely from sepsis, hypoxia -improved -nephrology on board 6. Anasarca -improved fluid balance -peripheral edema resolved at this time -nephrology on board; c/w Lasix for now 7. chronic a fib -cardiology on board -rate controlled and on Lovenox 8. Ileus/constipation -GI consulted - pyridostigmine to BID. Continue PM senna -KUB tomorrow 9. ETOH abuse -per family hx of ETOH abuse, wine daily per pt -c/w folate and thiamine 10. Diet -d/c tube feeds -swallow screen -diet as tolerated 11. Dvt prolx -d/c heparin drip -Lovenox SC CCU Objective - Vital Signs / Intake & Output Vital Signs (Last 4 hours): Vital Signs Temp Pulse Resp BP Pulse Ox 07/22/18 08:20 111/85 07/22/18 08:00 97.6 F 88 24 111/85 99 Intake and Output (Last 8hrs): Intake & Output 07/21/18 07/22/18 07/22/18 22:59 06:59 14:59 Intake Total 100 0 Output Total 250 500 100 Balance -150 -500 -100 Weight 78.608 kg Intake: IV 100 Oral 0 Output: Urine 250 500 100 Urethral (Hyde) 250 500 100 Other: # Bowel Movements 0 0 - Physical Exam Head: Positive for: Atraumatic Pupils: Positive for: PERRL Mouth: Positive for: Other (orally intubated) Respiratory/Chest: Positive for: Good Air Exchange, Rhonchi (b/l more in R side ), Other (Rales on B/L lower lung field and left lung). Negative for: Respiratory Distress, Accessory Muscle Use, Wheezes, Rales, Retracting, Tachypneic Cardiovascular: Positive for: Normal S1, S2, Irregular Rhythm Abdomen: Positive for: Distention, Normal Bowel Sounds. Negative for: Tenderness, Peritoneal Signs Upper Extremity: Positive for: Normal Inspection, Edema (small amount ) Lower Extremity: Positive for: Edema (1+) Skin: Positive for: Warm Psychiatric: Negative for: Alert - Medications Active Medications: Active Medications Generic Name Dose Route Start Last Admin Trade Name Freq PRN Reason Stop Dose Admin Acetaminophen 650 mg 07/08/18 08:01 07/17/18 04:05 Tylenol 650mg/20.3ml Solution Ud NG 650 mg Q6 PRN Administration Fever>100.4F Albuterol/Ipratropium 3 ml 07/21/18 12:00 07/22/18 07:19 Duoneb 3 Mg/0.5 Mg (3 Ml) Ud INH 3 ml RQID LISSA Administration Aspirin 81 mg 07/08/18 09:00 07/22/18 08:19 Ecotrin PO Not Given DAILY LISSA Atorvastatin Calcium 20 mg 07/08/18 22:00 07/21/18 21:13 Lipitor PO Not Given HS LISSA Docusate Sodium 100 mg 07/16/18 17:00 07/22/18 08:19 Colace Liquid PO Not Given BID LISSA Enoxaparin Sodium 80 mg 07/21/18 09:00 07/22/18 08:20 Lovenox SC 80 mg Q12 LISSA Administration Protocol Folic Acid 1 mg 07/08/18 11:15 07/22/18 08:19 Folic Acid NG Not Given DAILY LISSA Furosemide 40 mg 07/21/18 09:00 04/25/19 08:20 Lasix IVP 40 mg DAILY LISSA Administration Doxycycline Hyclate 100 mg/ 100 mls @ 100 mls/hr 07/17/18 09:45 07/22/18 08:21 Sodium Chloride IVPB 100 mls/hr Q12 LIS[facility] Administration Protocol Vancomycin HCl 750 mg/ Sodium 250 mls @ 166.667 mls/hr 07/19/18 01:30 07/22/18 01:14 Chloride IVPB 166.667 mls/hr Q12H L[facility] Administration Protocol Lactic Acid 1 applic 07/08/18 09:00 07/22/18 08:20 Lac-Hydrin 12% Lotion (225 G) TOP 1 applic TID L[facility]SA Administration Methylprednisolone 30 mg 07/22/18 09:00 Solu-Medrol IVP Q12 L[facility] Nystatin 1 applic 07/08/18 13:00 07/22/18 08:21 Nystop Topical Powder TOP 1 applic TID LISSA Administration Pantoprazole Sodium 40 mg 07/17/18 09:00 07/22/18 08:21 Protonix Inj IVP 40 mg DAILY L[facility] Administration Pyridostigmine [place] 30 mg 07/20/18 09:00 07/22/18 08:20 Mestinon Tab PO Not Given BID LISSA Racepinephrine 0.5 ml 07/21/18 13:00 07/21/18 13:49 Racepinephrine 2.25% Inhl Soln INH 07/22/18 13:01 0.5 ml Q15MIN L[facility] Administration Thiamine HCl 100 mg 07/08/18 11:15 07/22/18 08:21 Vitamin B1 Tab NG Not Given DAILY LISSA - Patient Studies Lab Studies: Microbiology Studies 07/19/18 12:16 Gram Stain - Final Pleural Fluid Body Fluid Culture - Preliminary NO GROWTH AFTER 2 DAYS Lab Studies 07/22/18 07/22/18 07/21/18 Range/Units 05:00 05:00 13:13 WBC 16.4 H (4.8-10.8) K/uL RBC 3.58 L (4.40-5.90) Mil/uL Hgb 10.0 L (12.0-18.0) g/dL Hct 32.1 L (35.0-51.0) % MCV 89.8 (80.0-94.0) fl MCH 28.0 (27.0-31.0) pg MCHC 31.1 L (33.0-37.0) g/dL RDW 17.0 H (11.5-14.5) % Plt Count 273 (130-400) K/uL MPV 9.5 (7.2-11.7) fl Neut % (Auto) 94.2 H (50.0-75.0) % Lymph % (Auto) 3.7 L (20.0-40.0) % Lee % (Auto) 1.9 (0.0-10.0) % Eos % (Auto) 0.0 (0.0-4.0) % Baso % (Auto) 0.2 (0.0-2.0) % Neut # (Auto) 15.5 H (1.8-7.0) K/uL Lymph # (Auto) 0.6 L (1.0-4.3) K/uL Lee # (Auto) 0.3 (0.0-0.8) K/uL Eos # (Auto) 0.0 (0.0-0.7) K/uL Baso # (Auto) 0.0 (0.0-0.2) K/uL pCO2 51 H (35-45) mm/Hg pO2 117 H (80-100) mm/Hg HCO3 31.4 H (21-28) mmol/L ABG pH 7.43 (7.35-7.45) ABG Total CO2 35.5 H (22-28) mmol/L ABG O2 Saturation 99.7 H (95-98) % ABG O2 Content 14.7 L (15-23) ML/dL ABG Base Excess 8.3 H (-2.0-3.0) mmol/L ABG Hemoglobin 10.7 L (11.7-17.4) g/dL ABG Carboxyhemoglobin 1.8 H (0.5-1.5) % POC ABG HHb (Measured) 0.3 (0.0-5.0) % ABG Methemoglobin 1.5 (0.0-3.0) % ABG O2 Capacity 14.7 L (16-24) mL/dL Nam Test Yes A-a O2 Difference 104.0 mm/Hg Hgb O2 Saturation 96.4 (95.0-98.0) % FiO2 40.0 % Blood Gas Comments Crit Value Read Back Sodium 141 (132-148) mmol/l Potassium 4.4 (3.6-5.0) MMOL/L Chloride 101 (98-107) mmol/L Carbon Dioxide 31 H (22-30) mmol/L Anion Gap 13 (10-20) BUN 48 H (9-20) mg/dl Creatinine 1.2 (0.8-1.5) mg/dl Est GFR ( Amer) > 60 Est GFR (Non-Af Amer) 57 Random Glucose 166 H (75-110) mg/dL Calcium 9.2 (8.4-10.2) mg/dL Total Bilirubin 0.7 (0.2-1.3) mg/dl AST 35 (17-59) U/L ALT 50 (21-72) U/L Alkaline Phosphatase 100 (38-126) U/L Total Protein 7.0 (6.3-8.2) G/DL Albumin 3.6 (3.5-5.0) g/dL Globulin 3.5 (2.2-3.9) gm/dL Albumin/Globulin Ratio 1.0 (1.0-2.1) Fluid pH Fluid pH Source Pleur Adenosine Deamin (<9.2) U/L 07/21/18 07/18/18 07/18/18 Range/Units 10:00 14:17 14:17 WBC (4.8-10.8) K/uL RBC (4.40-5.90) Mil/uL Hgb (12.0-18.0) g/dL Hct (35.0-51.0) % MCV (80.0-94.0) fl MCH (27.0-31.0) pg MCHC (33.0-37.0) g/dL RDW (11.5-14.5) % Plt Count (130-400) K/uL MPV (7.2-11.7) fl Neut % (Auto) (50.0-75.0) % Lymph % (Auto) (20.0-40.0) % Lee % (Auto) (0.0-10.0) % Eos % (Auto) (0.0-4.0) % Baso % (Auto) (0.0-2.0) % Neut # (Auto) (1.8-7.0) K/uL Lymph # (Auto) (1.0-4.3) K/uL Lee # (Auto) (0.0-0.8) K/uL Eos # (Auto) (0.0-0.7) K/uL Baso # (Auto) (0.0-0.2) K/uL pCO2 47 H (35-45) mm/Hg pO2 141 H (80-100) mm/Hg HCO3 32.3 H (21-28) mmol/L ABG pH 7.47 H (7.35-7.45) ABG Total CO2 35.6 H (22-28) mmol/L ABG O2 Saturation 100.2 H (95-98) % ABG O2 Content 14.4 L (15-23) ML/dL ABG Base Excess 9.4 H (-2.0-3.0) mmol/L ABG Hemoglobin 10.3 L (11.7-17.4) g/dL ABG Carboxyhemoglobin 1.6 H (0.5-1.5) % POC ABG HHb (Measured) -0.2 L (0.0-5.0) % ABG Methemoglobin 1.1 (0.0-3.0) % ABG O2 Capacity 14.4 L (16-24) mL/dL Nam Test Yes A-a O2 Difference 85.0 mm/Hg Hgb O2 Saturation 97.4 (95.0-98.0) % FiO2 40.0 % Blood Gas Comments 40%cool aerosol mask Crit Value Read Back N Sodium (132-148) mmol/l Potassium (3.6-5.0) MMOL/L Chloride (98-107) mmol/L Carbon Dioxide (22-30) mmol/L Anion Gap (10-20) BUN (9-20) mg/dl Creatinine (0.8-1.5) mg/dl Est GFR ( Amer) Est GFR (Non-Af Amer) Random Glucose (75-110) mg/dL Calcium (8.4-10.2) mg/dL Total Bilirubin (0.2-1.3) mg/dl AST (17-59) U/L ALT (21-72) U/L Alkaline Phosphatase (38-126) U/L Total Protein (6.3-8.2) G/DL Albumin (3.5-5.0) g/dL Globulin (2.2-3.9) gm/dL Albumin/Globulin Ratio (1.0-2.1) Fluid pH 7.6 Fluid pH Source Body fluid Pleur Adenosine Deamin 5.5 (<9.2) U/L Laboratory Results - last 24 hr 07/18/18 07/18/18 07/21/18 14:17 14:17 10:00 WBC RBC Hgb Hct MCV MCH MCHC RDW Plt Count MPV Neut % (Auto) Lymph % (Auto) Lee % (Auto) Eos % (Auto) Baso % (Auto) Neut # (Auto) Lymph # (Auto) Lee # (Auto) Eos # (Auto) Baso # (Auto) pCO2 47 H pO2 141 H HCO3 32.3 H ABG pH 7.47 H ABG Total CO2 35.6 H ABG O2 Saturation 100.2 H ABG O2 Content 14.4 L ABG Base Excess 9.4 H ABG Hemoglobin 10.3 L ABG Carboxyhemoglobin 1.6 H POC ABG HHb (Measured) -0.2 L ABG Methemoglobin 1.1 ABG O2 Capacity 14.4 L Nam Test Yes A-a O2 Difference 85.0 Hgb O2 Saturation 97.4 FiO2 40.0 Blood Gas Comments 40%cool aerosol mask Crit Value Read Back N Sodium Potassium Chloride Carbon Dioxide Anion Gap BUN Creatinine Est GFR ( Amer) Est GFR (Non-Af Amer) Random Glucose Calcium Total Bilirubin AST ALT Alkaline Phosphatase Total Protein Albumin Globulin Albumin/Globulin Ratio Fluid pH 7.6 Fluid pH Source Body fluid Pleur Adenosine Deamin 5.5 07/21/18 07/22/18 07/22/18 13:13 05:00 05:00 WBC 16.4 H RBC 3.58 L Hgb 10.0 L Hct 32.1 L MCV 89.8 MCH 28.0 MCHC 31.1 L RDW 17.0 H Plt Count 273 MPV 9.5 Neut % (Auto) 94.2 H Lymph % (Auto) 3.7 L Lee % (Auto) 1.9 Eos % (Auto) 0.0 Baso % (Auto) 0.2 Neut # (Auto) 15.5 H Lymph # (Auto) 0.6 L Lee # (Auto) 0.3 Eos # (Auto) 0.0 Baso # (Auto) 0.0 pCO2 51 H pO2 117 H HCO3 31.4 H ABG pH 7.43 ABG Total CO2 35.5 H ABG O2 Saturation 99.7 H ABG O2 Content 14.7 L ABG Base Excess 8.3 H ABG Hemoglobin 10.7 L ABG Carboxyhemoglobin 1.8 H POC ABG HHb (Measured) 0.3 ABG Methemoglobin 1.5 ABG O2 Capacity 14.7 L Nam Test Yes A-a O2 Difference 104.0 Hgb O2 Saturation 96.4 FiO2 40.0 Blood Gas Comments Crit Value Read Back Sodium 141 Potassium 4.4 Chloride 101 Carbon Dioxide 31 H Anion Gap 13 BUN 48 H Creatinine 1.2 Est GFR ( Amer) > 60 Est GFR (Non-Af Amer) 57 Random Glucose 166 H Calcium 9.2 Total Bilirubin 0.7 AST 35 ALT 50 Alkaline Phosphatase 100 Total Protein 7.0 Albumin 3.6 Globulin 3.5 Albumin/Globulin Ratio 1.0 Fluid pH Fluid pH Source Pleur Adenosine Deamin Fingerstick Blood Sugar Results: 140 Critical Care Progress Note - Nutrition Nutrition: Nutrition Category Date Time Status Liquid Diet [DIET] Diets 07/22/18 Lunch Active <Pio Kang - Last Filed: 07/22/18 18:41> Assessment/Plan - Assessment and Plan (Free Text) Plan: Attestation: Patient seen and examined at the bedside with Resident Dr. Mariaa Bang; and I agree with her outline of plans and management documented above as discussed on AM rounds; reflecting my review of all applicable clinical data, and participation in the care of the patient throughout the day in ICU; today, July 22, 2018.
--- NOTE | 2018-07-22 09:51 | RAD ---
Date of service: 07/22/2018 HISTORY: ileus COMPARISON: None available. TECHNIQUE: 1 view obtained. FINDINGS: BOWEL: Mildly dilated small bowel loops, a few greater than 3 cm. Cannot rule out early mechanical bowel obstruction. Follow-up advised. No hepatic or splenic enlargement. No masses or abnormal calcifications. BONES: Normal. OTHER FINDINGS: None. IMPRESSION: Possible early mechanical small-bowel obstruction. Follow-up advised.
--- NOTE | 2018-07-22 09:52 | RAD ---
Date of service: 07/22/2018 HISTORY: dyspnea, s/p extubation COMPARISON: 07/21/2018 TECHNIQUE: 1 view obtained. FINDINGS: LUNGS: There is a retrocardiac opacity silhouetting left hemidiaphragm. Possible pneumonia or pleural effusion. No infiltrate seen elsewhere. PLEURA: Probable small left pleural effusion. CARDIOVASCULAR: No aortic atherosclerotic calcification present. Normal cardiac size. No pulmonary vascular congestion. OSSEOUS STRUCTURES: No significant abnormalities. VISUALIZED UPPER ABDOMEN: Normal. OTHER FINDINGS: None. IMPRESSION: Probable small left pleural effusion. Cannot rule out retrocardiac infiltrate. Follow-up advised.
--- NOTE | 2018-07-22 09:58 | CP.PCM.PN ---
Subjective - Date & Time of Evaluation Date of Evaluation: 07/22/18 Time of Evaluation: 09:30 - Subjective Subjective: BREATHING BETTER NO CHEST PAIN Objective - Vital Signs/Intake and Output Vital Signs (last 24 hours): Temp Pulse Resp BP Pulse Ox 97.6 F 88 24 111/85 99 07/22/18 08:00 07/22/18 08:00 07/22/18 08:00 07/22/18 08:20 07/22/18 08:00 Intake and Output: 07/22/18 07/22/18 06:59 18:59 Intake Total 100 Output Total 500 100 Balance -400 -100 - Medications Medications: Current Medications Acetaminophen (Tylenol 650mg/20.3ml Solution Ud) 650 mg NG Q6 PRN PRN Reason: Fever>100.4F Last Admin: 07/17/18 04:05 Dose: 650 mg Albuterol/Ipratropium (Duoneb 3 Mg/0.5 Mg (3 Ml) Ud) 3 ml INH RQID [facility] Last Admin: 07/22/18 07:19 Dose: 3 ml Aspirin (Ecotrin) 81 mg PO DAILY [facility]SA Last Admin: 07/22/18 08:19 Dose: Not Given Atorvastatin Calcium (Lipitor) 20 mg PO HS [facility]SA Last Admin: 07/21/18 21:13 Dose: Not Given Docusate Sodium (Colace Liquid) 100 mg PO BID [facility]SA Last Admin: 07/22/18 08:19 Dose: Not Given Enoxaparin Sodium (Lovenox) 80 mg SC Q12 LISSA; Protocol Last Admin: 07/22/18 08:20 Dose: 80 mg Folic Acid (Folic Acid) 1 mg NG DAILY [facility]SA Last Admin: 07/22/18 08:19 Dose: Not Given Furosemide (Lasix) 40 mg IVP DAILY [facility] Last Admin: 07/22/18 08:20 Dose: 40 mg Doxycycline Hyclate 100 mg/ (Sodium Chloride) 100 mls @ 100 mls/hr IVPB Q12 [facility]; Protocol Last Admin: 07/22/18 08:21 Dose: 100 mls/hr Vancomycin HCl 750 mg/ Sodium (Chloride) 250 mls @ 166.667 mls/hr IVPB Q12H [facility]; Protocol Last Admin: 07/22/18 01:14 Dose: 166.667 mls/hr Lactic Acid (Lac-Hydrin 12% Lotion (225 G)) 1 applic TOP TID [facility] Last Admin: 07/22/18 08:20 Dose: 1 applic Methylprednisolone (Solu-Medrol) 30 mg IVP Q12 [facility] Last Admin: 07/22/18 09:26 Dose: Not Given Nystatin (Nystop Topical Powder) 1 applic TOP TID [facility] Last Admin: 07/22/18 08:21 Dose: 1 applic Pantoprazole Sodium (Protonix Inj) 40 mg IVP DAILY [facility] Last Admin: 07/22/18 08:21 Dose: 40 mg Pyridostigmine [place] (Mestinon Tab) 30 mg PO BID [facility] Last Admin: 07/22/18 08:20 Dose: Not Given Racepinephrine (Racepinephrine 2.25% Inhl Soln) 0.5 ml INH Q15MIN [facility] Stop: 07/22/18 13:01 Last Admin: 07/21/18 13:49 Dose: 0.5 ml Thiamine HCl (Vitamin B1 Tab) 100 mg NG DAILY [facility] Last Admin: 07/22/18 08:21 Dose: Not Given - Labs Labs: 07/22/18 05:00 07/22/18 05:00 PT 12.6 Seconds (9.8-13.1) 07/08/18 00:19 INR 1.1 07/08/18 00:19 APTT 42.4 Seconds (25.6-37.1) H 07/21/18 04:25 - Respiratory Exam Respiratory Exam: Decreased Breath Sounds, Rales - Cardiovascular Exam Cardiovascular Exam: Irregular Rhythm, +S1, +S2 - Extremities Exam Additional comments: NO LE EDEMA - Additional Findings 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
--- NOTE | 2018-07-22 11:01 | CP.PCM.PN ---
Subjective - Date & Time of Evaluation Date of Evaluation: 07/22/18 Time of Evaluation: 11:00 - Subjective Subjective: Patient is awake Adult son is stable Objective - Vital Signs/Intake and Output Vital Signs (last 24 hours): Temp Pulse Resp BP Pulse Ox 97.6 F 89 24 132/75 99 07/22/18 08:00 07/22/18 10:00 07/22/18 10:00 07/22/18 10:00 07/22/18 10:00 Intake and Output: 07/22/18 07/22/18 06:59 18:59 Intake Total 100 300 Output Total 500 450 Balance -400 -150 - Medications Medications: Current Medications Acetaminophen (Tylenol 650mg/20.3ml Solution Ud) 650 mg NG Q6 PRN PRN Reason: Fever>100.4F Last Admin: 07/17/18 04:05 Dose: 650 mg Albuterol/Ipratropium (Duoneb 3 Mg/0.5 Mg (3 Ml) Ud) 3 ml INH RQID [facility] Last Admin: 07/22/18 07:19 Dose: 3 ml Aspirin (Ecotrin) 81 mg PO DAILY [facility] Last Admin: 07/22/18 08:19 Dose: Not Given Atorvastatin Calcium (Lipitor) 20 mg PO HS [facility] Last Admin: 07/21/18 21:13 Dose: Not Given Docusate Sodium (Colace Liquid) 100 mg PO BID [facility] Last Admin: 07/22/18 08:19 Dose: Not Given Enoxaparin Sodium (Lovenox) 80 mg SC Q12 [facility]; Protocol Last Admin: 07/22/18 08:20 Dose: 80 mg Folic Acid (Folic Acid) 1 mg NG DAILY [facility] Last Admin: 07/22/18 08:19 Dose: Not Given Furosemide (Lasix) 40 mg IVP DAILY [facility] Last Admin: 07/22/18 08:20 Dose: 40 mg Doxycycline Hyclate 100 mg/ (Sodium Chloride) 100 mls @ 100 mls/hr IVPB Q12 [facility]; Protocol Last Admin: 07/22/18 08:21 Dose: 100 mls/hr Vancomycin HCl 750 mg/ Sodium (Chloride) 250 mls @ 166.667 mls/hr IVPB Q12H [facility]; Protocol Last Admin: 07/22/18 01:14 Dose: 166.667 mls/hr Lactic Acid (Lac-Hydrin 12% Lotion (225 G)) 1 applic TOP TID [facility] Last Admin: 07/22/18 08:20 Dose: 1 applic Methylprednisolone (Solu-Medrol) 30 mg IVP Q12 [facility] Last Admin: 07/22/18 09:26 Dose: Not Given Nystatin (Nystop Topical Powder) 1 applic TOP TID [facility] Last Admin: 07/22/18 08:21 Dose: 1 applic Pantoprazole Sodium (Protonix Inj) 40 mg IVP DAILY [facility] Last Admin: 07/22/18 08:21 Dose: 40 mg Pyridostigmine [place] (Mestinon Tab) 30 mg PO BID [facility] Last Admin: 07/22/18 08:20 Dose: Not Given Racepinephrine (Racepinephrine 2.25% Inhl Soln) 0.5 ml INH Q15MIN [facility] Stop: 07/22/18 13:01 Last Admin: 07/21/18 13:49 Dose: 0.5 ml Thiamine HCl (Vitamin B1 Tab) 100 mg NG DAILY [facility] Last Admin: 07/22/18 08:21 Dose: Not Given - Labs Labs: 07/22/18 05:00 07/22/18 05:00 PT 12.6 Seconds (9.8-13.1) 07/08/18 00:19 INR 1.1 07/08/18 00:19 APTT 42.4 Seconds (25.6-37.1) H 07/21/18 04:25 - Constitutional Appears: No Acute Distress - Eye Exam Eye Exam: Conjunctival injection - ENT Exam ENT Exam: Mucous Membranes Moist - Neck Exam Neck Exam: absent: Lymphadenopathy - Respiratory Exam Respiratory Exam: NORMAL BREATHING PATTERN. absent: Chest Wall Tenderness - Cardiovascular Exam Cardiovascular Exam: absent: Gallop, JVD, Rubs - GI/Abdominal Exam GI & Abdominal Exam: Soft, Normal Bowel Sounds - Extremities Exam Extremities Exam: absent: Calf Tenderness - Back Exam Back Exam: absent: CVA tenderness (L), CVA tenderness (R) - Neurological Exam Neurological Exam: Alert - Skin Skin Exam: absent: Cyanosis Assessment and Plan (1) Cellulitis of right lower leg Status: Acute (2) Pneumonia Status: Acute (3) Respiratory failure with hypoxia and hypercapnia Status: Acute (4) Sepsis Status: Acute - Assessment and Plan (Free Text) Assessment: acute respi failure extubated PNA, CHF exacerbation ANTHONY improved HTN, COPD CHF s/p TAVR Recommendation Patient extubated awake doing much better Metabolic alkalosis improving CO2 down to 31 Kidney function stable electrolytes stable
[2018-07-22 12:54] LABS: ANISOCYTOSIS SLIGHT; HYPOCHROMIC SLIGHT; LYMPHOCYTE 4 % (20-50); MONOCYTE 2 % (0-10); NEUTROPHIL 94 % (42-75); PLATELET ESTIMATE NORMAL (NORMAL); TOTAL CELLS COUNTED 100
--- NOTE | 2018-07-22 15:44 | CP.PCM.PN ---
Subjective - Date & Time of Evaluation Date of Evaluation: 07/22/18 Time of Evaluation: 22:22 - Subjective Subjective: Extubated Doing well Objective - Vital Signs/Intake and Output Vital Signs (last 24 hours): Temp Pulse Resp BP Pulse Ox 98.2 F 89 30 H 128/65 99 07/22/18 12:00 07/22/18 14:00 07/22/18 14:00 07/22/18 14:00 07/22/18 14:00 Intake and Output: 07/22/18 07/22/18 06:59 18:59 Intake Total 100 1500 Output Total 500 850 Balance -400 650 - Medications Medications: Current Medications Acetaminophen (Tylenol 650mg/20.3ml Solution Ud) 650 mg NG Q6 PRN PRN Reason: Fever>100.4F Last Admin: 07/17/18 04:05 Dose: 650 mg Albuterol/Ipratropium (Duoneb 3 Mg/0.5 Mg (3 Ml) Ud) 3 ml INH RQID [facility] Last Admin: 07/22/18 15:21 Dose: 3 ml Aspirin (Ecotrin) 81 mg PO DAILY [facility] Last Admin: 07/22/18 08:19 Dose: Not Given Atorvastatin Calcium (Lipitor) 20 mg PO HS [facility] Last Admin: 07/21/18 21:13 Dose: Not Given Docusate Sodium (Colace Liquid) 100 mg PO BID [facility] Last Admin: 07/22/18 08:19 Dose: Not Given Enoxaparin Sodium (Lovenox) 80 mg SC Q12 [facility]; Protocol Last Admin: 07/22/18 08:20 Dose: 80 mg Folic Acid (Folic Acid) 1 mg NG DAILY [facility] Last Admin: 07/22/18 08:19 Dose: Not Given Furosemide (Lasix) 40 mg IVP DAILY [facility] Last Admin: 07/22/18 08:20 Dose: 40 mg Doxycycline Hyclate 100 mg/ (Sodium Chloride) 100 mls @ 100 mls/hr IVPB Q12 [facility]; Protocol Last Admin: 07/22/18 08:21 Dose: 100 mls/hr Vancomycin HCl 750 mg/ Sodium (Chloride) 250 mls @ 166.667 mls/hr IVPB Q12H [facility]; Protocol Last Admin: 07/22/18 13:03 Dose: 166.667 mls/hr Lactic Acid (Lac-Hydrin 12% Lotion (225 G)) 1 applic TOP TID [facility] Last Admin: 07/22/18 13:02 Dose: 1 applic Methylprednisolone (Solu-Medrol) 30 mg IVP Q12 [facility] Last Admin: 07/22/18 09:26 Dose: Not Given Nystatin (Nystop Topical Powder) 1 applic TOP TID [facility] Last Admin: 07/22/18 13:02 Dose: 1 applic Pantoprazole Sodium (Protonix Inj) 40 mg IVP DAILY [facility] Last Admin: 07/22/18 08:21 Dose: 40 mg Pyridostigmine [place] (Mestinon Tab) 30 mg PO BID [facility] Last Admin: 07/22/18 08:20 Dose: Not Given Thiamine HCl (Vitamin B1 Tab) 100 mg NG DAILY [facility] Last Admin: 07/22/18 08:21 Dose: Not Given - Labs Labs: 07/22/18 05:00 07/22/18 05:00 PT 12.6 Seconds (9.8-13.1) 07/08/18 00:19 INR 1.1 07/08/18 00:19 APTT 42.4 Seconds (25.6-37.1) H 07/21/18 04:25 - Respiratory Exam Respiratory Exam: NORMAL BREATHING PATTERN - Cardiovascular Exam Cardiovascular Exam: REGULAR RHYTHM - GI/Abdominal Exam GI & Abdominal Exam: Normal Bowel Sounds Assessment and Plan - Assessment and Plan (Free Text) Assessment: Acute Respiratory Failure Multi lobar pneumonia Bilateral Pleural effusion S/P thoracentesis Hx COPD [facility] Smoker ICU Pulmonary ID Hx CHF Afib S/P TAVR LV fxn good Cardiology anticoagulation Cellulitis RLE improved ABX Hx ANTHONY/ CKD [facility] Nephrology Chronic ETOH ?? HX Abdominal distention improved Colonic ileus ( recurrent ) + FOBT ?? [place] held etiol ?? 2 to L-S surgery pyridostigmine Hx LLE edema cellulitis ?? ecchymosis?? Endovascular consult ??? CT scan done no significant findings Hx Hyperkalemia 2 to Bactrim?? Hold NAMRATA Hx Hypokalemia Hyperkalemia HTN Prediabetes Hx Low back surgery (Severe Spinal Stenosis) Post operative illeus
--- NOTE | 2018-07-22 16:13 | CP.PCM.PN ---
Subjective - Date & Time of Evaluation Date of Evaluation: 07/22/18 Time of Evaluation: 09:00 - Subjective Subjective: Patient extubated and though somewhat dypneic is in no acute distress Objective - Vital Signs/Intake and Output Vital Signs (last 24 hours): Temp Pulse Resp BP Pulse Ox 98.2 F 89 30 H 128/65 99 07/22/18 12:00 07/22/18 14:00 07/22/18 14:00 07/22/18 14:00 07/22/18 14:00 Intake and Output: 07/22/18 07/22/18 06:59 18:59 Intake Total 100 1500 Output Total 500 850 Balance -400 650 - Medications Medications: Current Medications Acetaminophen (Tylenol 650mg/20.3ml Solution Ud) 650 mg NG Q6 PRN PRN Reason: Fever>100.4F Last Admin: 07/17/18 04:05 Dose: 650 mg Albuterol/Ipratropium (Duoneb 3 Mg/0.5 Mg (3 Ml) Ud) 3 ml INH RQID [facility] Last Admin: 07/22/18 15:21 Dose: 3 ml Aspirin (Ecotrin) 81 mg PO DAILY [facility] Last Admin: 07/22/18 08:19 Dose: Not Given Atorvastatin Calcium (Lipitor) 20 mg PO HS [facility] Last Admin: 07/21/18 21:13 Dose: Not Given Docusate Sodium (Colace Liquid) 100 mg PO BID [facility] Last Admin: 07/22/18 08:19 Dose: Not Given Enoxaparin Sodium (Lovenox) 80 mg SC Q12 [facility]; Protocol Last Admin: 07/22/18 08:20 Dose: 80 mg Folic Acid (Folic Acid) 1 mg NG DAILY [facility] Last Admin: 07/22/18 08:19 Dose: Not Given Furosemide (Lasix) 40 mg IVP DAILY [facility] Last Admin: 07/22/18 08:20 Dose: 40 mg Doxycycline Hyclate 100 mg/ (Sodium Chloride) 100 mls @ 100 mls/hr IVPB Q12 [facility]; Protocol Last Admin: 07/22/18 08:21 Dose: 100 mls/hr Vancomycin HCl 750 mg/ Sodium (Chloride) 250 mls @ 166.667 mls/hr IVPB Q12H [facility]; Protocol Last Admin: 07/22/18 13:03 Dose: 166.667 mls/hr Lactic Acid (Lac-Hydrin 12% Lotion (225 G)) 1 applic TOP TID [facility] Last Admin: 07/22/18 13:02 Dose: 1 applic Methylprednisolone (Solu-Medrol) 30 mg IVP Q12 [facility] Last Admin: 07/22/18 09:26 Dose: Not Given Nystatin (Nystop Topical Powder) 1 applic TOP TID [facility] Last Admin: 07/22/18 13:02 Dose: 1 applic Pantoprazole Sodium (Protonix Inj) 40 mg IVP DAILY [facility] Last Admin: 07/22/18 08:21 Dose: 40 mg Pyridostigmine [place] (Mestinon Tab) 30 mg PO BID [facility] Last Admin: 07/22/18 08:20 Dose: Not Given Thiamine HCl (Vitamin B1 Tab) 100 mg NG DAILY [facility] Last Admin: 07/22/18 08:21 Dose: Not Given - Labs Labs: 07/22/18 05:00 07/22/18 05:00 PT 12.6 Seconds (9.8-13.1) 07/08/18 00:19 INR 1.1 07/08/18 00:19 APTT 42.4 Seconds (25.6-37.1) H 07/21/18 04:25 - Head Exam Head Exam: ATRAUMATIC - Eye Exam Eye Exam: Normal appearance - ENT Exam ENT Exam: Normal Exam - Neck Exam Neck Exam: Full ROM - Respiratory Exam Respiratory Exam: Clear to Ausculation Bilateral - Cardiovascular Exam Cardiovascular Exam: REGULAR RHYTHM - GI/Abdominal Exam GI & Abdominal Exam: Soft. absent: Tenderness Assessment and Plan (1) Abdominal distention Assessment & Plan: KUB with some mildly dilated loops of small intestine though much better than during previous admission. Will continue current bwel regimen with senna and pyridostigmine Status: Acute
--- NOTE | 2018-07-22 17:12 | CP.PCM.PN ---
Subjective - Date & Time of Evaluation Date of Evaluation: 07/22/18 Time of Evaluation: 07:00 - Subjective Subjective: seen on rounds afebrile alert was OOB today c/o cough Objective - Vital Signs/Intake and Output Vital Signs (last 24 hours): Temp Pulse Resp BP Pulse Ox 97.8 F 94 H 17 114/60 96 07/22/18 16:00 07/22/18 16:00 07/22/18 16:00 07/22/18 16:00 07/22/18 16:00 Intake and Output: 07/22/18 07/22/18 06:59 18:59 Intake Total 100 1500 Output Total 500 975 Balance -400 525 - Medications Medications: Current Medications Acetaminophen (Tylenol 650mg/20.3ml Solution Ud) 650 mg NG Q6 PRN PRN Reason: Fever>100.4F Last Admin: 07/17/18 04:05 Dose: 650 mg Albuterol/Ipratropium (Duoneb 3 Mg/0.5 Mg (3 Ml) Ud) 3 ml INH RQID [facility] Last Admin: 07/22/18 15:21 Dose: 3 ml Aspirin (Ecotrin) 81 mg PO DAILY [facility] Last Admin: 07/22/18 08:19 Dose: Not Given Atorvastatin Calcium (Lipitor) 20 mg PO HS [facility] Last Admin: 07/21/18 21:13 Dose: Not Given Docusate Sodium (Colace Liquid) 100 mg PO BID [facility] Last Admin: 07/22/18 16:43 Dose: Not Given Enoxaparin Sodium (Lovenox) 80 mg SC Q12 [facility]; Protocol Last Admin: 07/22/18 08:20 Dose: 80 mg Folic Acid (Folic Acid) 1 mg NG DAILY [facility] Last Admin: 07/22/18 08:19 Dose: Not Given Furosemide (Lasix) 40 mg IVP DAILY [facility] Last Admin: 07/22/18 08:20 Dose: 40 mg Doxycycline Hyclate 100 mg/ (Sodium Chloride) 100 mls @ 100 mls/hr IVPB Q12 [facility]; Protocol Last Admin: 07/22/18 08:21 Dose: 100 mls/hr Vancomycin HCl 750 mg/ Sodium (Chloride) 250 mls @ 166.667 mls/hr IVPB Q12H [facility]; Protocol Last Admin: 07/22/18 13:03 Dose: 166.667 mls/hr Lactic Acid (Lac-Hydrin 12% Lotion (225 G)) 1 applic TOP TID [facility] Last Admin: 07/22/18 16:43 Dose: 1 applic Methylprednisolone (Solu-Medrol) 30 mg IVP Q12 [facility] Last Admin: 07/22/18 09:26 Dose: Not Given Nystatin (Nystop Topical Powder) 1 applic TOP TID [facility] Last Admin: 07/22/18 16:44 Dose: 1 applic Pantoprazole Sodium (Protonix Inj) 40 mg IVP DAILY [facility] Last Admin: 07/22/18 08:21 Dose: 40 mg Pyridostigmine [place] (Mestinon Tab) 30 mg PO BID [facility] Last Admin: 07/22/18 16:43 Dose: 30 mg Thiamine HCl (Vitamin B1 Tab) 100 mg NG DAILY [facility] Last Admin: 07/22/18 08:21 Dose: Not Given - Labs Labs: 07/22/18 05:00 07/22/18 05:00 PT 12.6 Seconds (9.8-13.1) 07/08/18 00:19 INR 1.1 07/08/18 00:19 APTT 42.4 Seconds (25.6-37.1) H 07/21/18 04:25 - Constitutional Appears: Non-toxic, No Acute Distress, Chronically Ill - Head Exam Head Exam: ATRAUMATIC, NORMAL INSPECTION, NORMOCEPHALIC - Eye Exam Eye Exam: EOMI, Normal appearance, PERRL Pupil Exam: NORMAL ACCOMODATION, PERRL - ENT Exam ENT Exam: Mucous Membranes Moist, Normal Exam - Neck Exam Neck Exam: Full ROM, Normal Inspection. absent: Lymphadenopathy - Respiratory Exam Respiratory Exam: Decreased Breath Sounds, Clear to Ausculation Bilateral, Prolonged Expiratory Phase - Cardiovascular Exam Cardiovascular Exam: REGULAR RHYTHM, +S1, +S2. absent: Murmur - GI/Abdominal Exam GI & Abdominal Exam: Soft, Normal Bowel Sounds. absent: Tenderness - Rectal Exam Rectal Exam: Deferred - Exam Exam: NORMAL INSPECTION - Extremities Exam Extremities Exam: Full ROM, Normal Capillary Refill, Normal Inspection. absent: Joint Swelling, Pedal Edema - Back Exam Back Exam: NORMAL INSPECTION - Neurological Exam Neurological Exam: Alert, Awake, CN II-XII Intact, Normal Gait, Oriented x3 - Psychiatric Exam Psychiatric exam: Normal Affect, Normal Mood - Skin Skin Exam: Dry, Intact, Normal Color, Warm Assessment and Plan (1) Cellulitis of right lower leg Status: Resolved (2) Atrial fibrillation Status: Chronic (3) CHF (congestive heart failure) Status: Chronic (4) Endotracheally intubated Status: Resolved (5) Respiratory distress Status: Acute (6) Respiratory failure with hypoxia and hypercapnia Status: Chronic (7) Dependent edema Status: Resolved (8) Pleural effusion, left Status: Resolved (9) Pneumonia Status: Resolved (10) COPD (chronic obstructive pulmonary disease) Status: Chronic (11) Sepsis Status: Resolved - Assessment and Plan (Free Text) Assessment: will d/c Vanco add antifungal coverage monitor for fever folllow up CBC CXR
[2018-07-23 04:48] LABS: BASO % 0.1 % (0.0-2.0); HEMOGLOBIN 9.5 g/dL (12.0-18.0); LYMPH # 0.7 K/uL (1.0-4.3); LYMPH % 4.3 % (20.0-40.0); MEAN CELL VOLUME 89.4 fl (80.0-94.0); MEAN CORPUSCULAR HEMOGLOBIN 28.6 pg (27.0-31.0); MEAN PLATELET VOLUME 9.7 fl (7.2-11.7); MONO # 0.5 K/uL (0.0-0.8); MONO % 3.1 % (0.0-10.0); NEUT # 14.4 K/uL (1.8-7.0); NEUT % 92.5 % (50.0-75.0); RBC 3.31 Mil/uL (4.40-5.90); WHITE BLOOD COUNT 15.6 K/uL (4.8-10.8)
[2018-07-23 05:11] LABS: BLOOD UREA NITROGEN 48 mg/dl (9-20); CALCIUM 9.1 mg/dL (8.4-10.2); GFR NON-AFRICAN AMERICAN > 60
[2018-07-23] MEDS: Albuterol-Ipratrop 3 mg / 0.5 (3 ml) UD INH SCH ×4 (07:18→19:09)
[2018-07-23] MEDS: Enoxaparin 80 mg Syringe SC SCH ×2 (08:34→21:02)
--- NOTE | 2018-07-23 08:35 | CP.CCUPN ---
<Yumi Bang - Last Filed: 07/23/18 15:16> CCU Subjective - Physician Review Subjective (Free Text): No acute overnight events. Patient is doing well this AM Currently tolerating NC 4L, O2 saturation 96-99% Patient was able to work with PT yesterday, able to ambulate with help Currently on liquids, pending swallow eval this AM Blood work, and imaging reviewed this AM Denies chest pain, chest tightness and dyspnea. Assessment/Plan: 1. Acute respiratory failure, hypoxia, hypercarbia -s/p extubation, respiratory status improving -pulmonary on board -hx of CHF and COPD -extuabted, currently tolerating 4L NC -c/w lasix and duonab Inh -taper IV steroids 2. Pneumonia -improved at this time given normal procalcitonin, no leukocytosis and remains afebrile -Trach cx sig for genesis -ID on board -on Doxy and started on Micafungin 3. Pleural effusion -CXR today, small pleural effusion with atelectasis -s/p chest tube 07/18 and thoracentesis 07/19 -Fluid sig for exudative per LDH -fluid cultures no growth thus far 4. Acute kidney injury -likely from sepsis, hypoxia -improved -nephrology on board 5. Anasarca -improved fluid balance -peripheral edema resolved at this time -nephrology on board; c/w Lasix for now 6. chronic a fib -cardiology on board -rate controlled and on Lovenox 7. Ileus/constipation -GI consulted -pyridostigmine to BID. Continue PM senna -KUB reviewed 8. ETOH abuse -per family hx of ETOH abuse, wine daily per pt -c/w folate and thiamine 9. Diet -d/c tube feeds -swallow screen -diet as tolerated 10. Dvt prolx -d/c heparin drip -Lovenox SC CCU Objective - Vital Signs / Intake & Output Vital Signs (Last 4 hours): Vital Signs Temp Pulse Resp BP Pulse Ox 07/23/18 08:00 97.6 F 87 22 106/61 95 07/23/18 06:00 76 21 103/51 L 97 Intake and Output (Last 8hrs): Intake & Output 07/22/18 07/23/18 07/23/18 22:59 06:59 14:59 Intake Total 660 180 50 Output Total 250 700 Balance 410 -520 50 Weight 78.925 kg Intake: IV 0 Intake, Piggyback 100 Oral 560 180 50 Output: Urine 250 700 Urethral (Hyde) 250 700 Other: # Bowel Movements 1 - Physical Exam Head: Positive for: Atraumatic Pupils: Positive for: PERRL Mouth: Positive for: Other (orally intubated) Respiratory/Chest: Positive for: Good Air Exchange, Rhonchi (b/l more in R side ). Negative for: Respiratory Distress, Accessory Muscle Use, Wheezes, Rales, Retracting, Tachypneic Cardiovascular: Positive for: Normal S1, S2, Irregular Rhythm Abdomen: Positive for: Distention, Normal Bowel Sounds. Negative for: Tender ness, Peritoneal Signs Upper Extremity: Positive for: Normal Inspection Lower Extremity: Positive for: Normal Inspection (no edema or skin changes noted ) Skin: Positive for: Warm Psychiatric: Positive for: Alert - Medications Active Medications: Active Medications Generic Name Dose Route Start Last Admin Trade Name Freq PRN Reason Stop Dose Admin Acetaminophen 650 mg 07/08/18 08:01 07/17/18 04:05 Tylenol 650mg/20.3ml Solution Ud NG 650 mg Q6 PRN Administration Fever>100.4F Albuterol/Ipratropium 3 ml 07/21/18 12:00 07/23/18 07:18 Duoneb 3 Mg/0.5 Mg (3 Ml) Ud INH 3 ml RQID [facility] Administration Aspirin 81 mg 07/08/18 09:00 07/22/18 08:19 Ecotrin PO Not Given DAILY [facility] Atorvastatin Calcium 20 mg 07/08/18 22:00 07/22/18 21:00 Lipitor PO 20 mg HS [facility] Administration Docusate Sodium 100 mg 07/16/18 17:00 07/22/18 16:43 Colace Liquid PO Not Given BID [facility] Enoxaparin Sodium 80 mg 07/21/18 09:00 07/22/18 21:24 Lovenox SC 80 mg Q12 [facility] Administration Protocol Folic Acid 1 mg 07/08/18 11:15 07/22/18 08:19 Folic Acid NG Not Given DAILY [facility] Furosemide 40 mg 07/21/18 09:00 07/22/18 08:20 Lasix IVP 40 mg DAILY [facility] Administration Doxycycline Hyclate 100 mg/ 100 mls @ 100 mls/hr 07/17/18 09:45 07/22/18 21:25 Sodium Chloride IVPB 100 mls/hr Q12 [facility] Administration Protocol Micafungin Sodium 100 mg/ 100 mls @ 100 mls/hr 07/23/18 09:00 Sodium Chloride IV 07/23/18 09:59 DAILY [facility] Protocol Lactic Acid 1 applic 07/08/18 09:00 07/22/18 16:43 Lac-Hydrin 12% Lotion (225 G) TOP 1 applic TID [facility] Administration Methylprednisolone 30 mg 07/22/18 09:00 07/22/18 21:24 Solu-Medrol IVP 30 mg Q12 [facility] Administration Nystatin 1 applic 07/08/18 13:00 07/22/18 16:44 Nystop Topical Powder TOP 1 applic TID [facility] Administration Pantoprazole Sodium 40 mg 07/17/18 09:00 07/22/18 08:21 Protonix Inj IVP 40 mg DAILY [facility] Administration Pyridostigmine [place] 30 mg 07/20/18 09:00 07/22/18 16:43 Mestinon Tab PO 30 mg BID [facility] Administration Thiamine HCl 100 mg 07/08/18 11:15 07/22/18 08:21 Vitamin B1 Tab NG Not Given DAILY [facility] - Patient Studies Lab Studies: Microbiology Studies 07/19/18 12:16 Gram Stain - Final Pleural Fluid Body Fluid Culture - Preliminary NO GROWTH AFTER 3 DAYS Lab Studies 07/23/18 07/23/18 07/22/18 Range/Units 04:15 04:15 05:00 WBC 15.6 H (4.8-10.8) K/uL RBC 3.31 L (4.40-5.90) Mil/uL Hgb 9.5 L (12.0-18.0) g/dL Hct 29.6 L (35.0-51.0) % MCV 89.4 (80.0-94.0) fl MCH 28.6 (27.0-31.0) pg MCHC 32.0 L (33.0-37.0) g/dL RDW 17.0 H (11.5-14.5) % Plt Count 259 (130-400) K/uL MPV 9.7 (7.2-11.7) fl Neut % (Auto) 92.5 H (50.0-75.0) % Lymph % (Auto) 4.3 L (20.0-40.0) % [place] % (Auto) 3.1 (0.0-10.0) % Eos % (Auto) 0.0 (0.0-4.0) % Baso % (Auto) 0.1 (0.0-2.0) % Neut # (Auto) 14.4 H (1.8-7.0) K/uL Lymph # (Auto) 0.7 L (1.0-4.3) K/uL [place] # (Auto) 0.5 (0.0-0.8) K/uL Eos # (Auto) 0.0 (0.0-0.7) K/uL Baso # (Auto) 0.0 (0.0-0.2) K/uL Total Counted Cancelled Neutrophils % (Manual) Cancelled 94 H (42-75) % Band Neutrophils % Cancelled Lymphocytes % (Manual) Cancelled 4 L (20-50) % Reactive Lymphs % Cancelled Monocytes % (Manual) Cancelled 2 (0-10) % Eosinophils % (Manual) Cancelled Basophils % (Manual) Cancelled Metamyelocytes % Cancelled Myelocytes % Cancelled Promyelocytes % Cancelled Blast Cells % Cancelled Plasma Cell % (Manual) Cancelled Nucleated RBC % Cancelled Hypersegmented Polys Cancelled Smudge Cells Cancelled Toxic Granulation Cancelled Dohle Bodies Cancelled Anitha Rods Cancelled Platelet Estimate Cancelled Normal (NORMAL) Plt Clumps, EDTA Cancelled Large Platelets Cancelled Giant Platelets Cancelled RBC Morphology Cancelled Polychromasia Cancelled Hypochromasia (manual) Cancelled Slight Poikilocytosis (manual Cancelled Basophilic Stippling Cancelled Anisocytosis (manual) Cancelled Slight Microcytosis (manual) Cancelled Macrocytosis (manual) Cancelled Spherocytes Cancelled Sickle Cells Cancelled Target Cells Cancelled Tear Drop Cells Cancelled Ovalocytes Cancelled Stomatocytes Cancelled Helmet Cells Cancelled [place] Bodies Cancelled Myke Cells Cancelled Acanthocytes (Spur) Cancelled Rouleaux Cancelled Schistocytes Cancelled Sodium 138 (132-148) mmol/l Potassium 3.7 (3.6-5.0) MMOL/L Chloride 100 (98-107) mmol/L Carbon Dioxide 32 H (22-30) mmol/L Anion Gap 10 (10-20) BUN 48 H (9-20) mg/dl Creatinine 1.1 (0.8-1.5) mg/dl Est GFR ( Amer) > 60 Est GFR (Non-Af Amer) > 60 Random Glucose 168 H (75-110) mg/dL Calcium 9.1 (8.4-10.2) mg/dL Laboratory Results - last 24 hr 07/22/18 07/23/18 07/23/18 05:00 04:15 04:15 WBC 15.6 H RBC 3.31 L Hgb 9.5 L Hct 29.6 L MCV 89.4 MCH 28.6 MCHC 32.0 L RDW 17.0 H Plt Count 259 MPV 9.7 Neut % (Auto) 92.5 H Lymph % (Auto) 4.3 L [place] % (Auto) 3.1 Eos % (Auto) 0.0 Baso % (Auto) 0.1 Neut # (Auto) 14.4 H Lymph # (Auto) 0.7 L [place] # (Auto) 0.5 Eos # (Auto) 0.0 Baso # (Auto) 0.0 Total Counted Cancelled Neutrophils % (Manual) 94 H Cancelled Band Neutrophils % Cancelled Lymphocytes % (Manual) 4 L Cancelled Reactive Lymphs % Cancelled Monocytes % (Manual) 2 Cancelled Eosinophils % (Manual) Cancelled Basophils % (Manual) Cancelled Metamyelocytes % Cancelled Myelocytes % Cancelled Promyelocytes % Cancelled Blast Cells % Cancelled Plasma Cell % (Manual) Cancelled Nucleated RBC % Cancelled Hypersegmented Polys Cancelled Smudge Cells Cancelled Toxic Granulation Cancelled Dohle Bodies Cancelled Anitha Rods Cancelled Platelet Estimate Normal Cancelled Plt Clumps, EDTA Cancelled Large Platelets Cancelled Giant Platelets Cancelled RBC Morphology Cancelled Polychromasia Cancelled Hypochromasia (manual) Slight Cancelled Poikilocytosis (manual Cancelled Basophilic Stippling Cancelled Anisocytosis (manual) Slight Cancelled Microcytosis (manual) Cancelled Macrocytosis (manual) Cancelled Spherocytes Cancelled Sickle Cells Cancelled Target Cells Cancelled Tear Drop Cells Cancelled Ovalocytes Cancelled Stomatocytes Cancelled Helmet Cells Cancelled [place] Bodies Cancelled Myke Cells Cancelled Acanthocytes (Spur) Cancelled Rouleaux Cancelled Schistocytes Cancelled Sodium 138 Potassium 3.7 Chloride 100 Carbon Dioxide 32 H Anion Gap 10 BUN 48 H Creatinine 1.1 Est GFR ( Amer) > 60 Est GFR (Non-Af Amer) > 60 Random Glucose 168 H Calcium 9.1 Radiology Impressions: Radiology Impressions Chest X-Ray 07/22/18 06:00 IMPRESSION: Probable small left pleural effusion. Cannot rule out retrocardiac infiltrate. Follow-up advised. Abdomen X-Ray 07/22/18 08:00 IMPRESSION: Possible early mechanical small-bowel obstruction. Follow-up advised. Fingerstick Blood Sugar Results: 140 Critical Care Progress Note - Nutrition Nutrition: Nutrition Category Date Time Status Liquid Diet [DIET] Diets 07/22/18 Lunch Active <Pio Kang - Last Filed: 07/23/18 15:55> Assessment/Plan - Assessment and Plan (Free Text) Plan: Attestation: Patient seen and examined at the bedside with Resident Dr. Mariaa Bang; and I agree with her outline of plans and management documented above as discussed on AM rounds; reflecting my review of all applicable clinical data, and participation in the care of the patient throughout the day in ICU; today, July 23, 2018.
[2018-07-23] MEDS: MethylPREDNISolone 40 mg Vial IVP SCH ×2 (08:37→21:03)
[2018-07-23] MEDS ORDERED: Micafungin 100 MG in Sodium Chloride 0.9% 100 ML IV SCH (09:00)
--- NOTE | 2018-07-23 11:24 | CP.PCM.PN ---
Subjective - Date & Time of Evaluation Date of Evaluation: 07/23/18 Time of Evaluation: 09:00 - Subjective Subjective: NO CHEST PAIN BREATHING WELL Objective - Vital Signs/Intake and Output Vital Signs (last 24 hours): Temp Pulse Resp BP Pulse Ox 97.6 F 92 H 21 113/68 97 07/23/18 08:00 07/23/18 10:00 07/23/18 10:00 07/23/18 10:00 07/23/18 10:00 Intake and Output: 07/23/18 07/23/18 06:59 18:59 Intake Total 340 450 Output Total 700 Balance -360 450 - Medications Medications: Current Medications Acetaminophen (Tylenol 650mg/20.3ml Solution Ud) 650 mg NG Q6 PRN PRN Reason: Fever>100.4F Last Admin: 07/17/18 04:05 Dose: 650 mg Albuterol/Ipratropium (Duoneb 3 Mg/0.5 Mg (3 Ml) Ud) 3 ml INH RQID [facility] Last Admin: 07/23/18 07:18 Dose: 3 ml Aspirin (Ecotrin) 81 mg PO DAILY [facility] Last Admin: 07/23/18 08:33 Dose: 81 mg Atorvastatin Calcium (Lipitor) 20 mg PO HS [facility] Last Admin: 07/22/18 21:00 Dose: 20 mg Docusate Sodium (Colace Liquid) 100 mg PO BID [facility] Last Admin: 07/23/18 08:32 Dose: Not Given Enoxaparin Sodium (Lovenox) 80 mg SC Q12 [facility]; Protocol Last Admin: 07/23/18 08:34 Dose: 80 mg Folic Acid (Folic Acid) 1 mg NG DAILY [facility] Last Admin: 07/23/18 08:33 Dose: 1 mg Furosemide (Lasix) 40 mg IVP DAILY [facility] Last Admin: 07/23/18 08:34 Dose: 40 mg Doxycycline Hyclate 100 mg/ (Sodium Chloride) 100 mls @ 100 mls/hr IVPB Q12 [facility]; Protocol Last Admin: 07/23/18 08:38 Dose: 100 mls/hr Lactic Acid (Lac-Hydrin 12% Lotion (225 G)) 1 applic TOP TID [facility] Last Admin: 07/23/18 08:34 Dose: 1 applic Methylprednisolone (Solu-Medrol) 30 mg IVP Q12 [facility] Last Admin: 07/23/18 08:37 Dose: 30 mg Nystatin (Nystop Topical Powder) 1 applic TOP TID [facility] Last Admin: 07/23/18 08:36 Dose: 1 applic Pantoprazole Sodium (Protonix Inj) 40 mg IVP DAILY [facility] Last Admin: 07/23/18 08:36 Dose: 40 mg Pyridostigmine [place] (Mestinon Tab) 30 mg PO BID [facility] Last Admin: 07/23/18 08:35 Dose: 30 mg Thiamine HCl (Vitamin B1 Tab) 100 mg NG DAILY [facility] Last Admin: 07/23/18 08:38 Dose: 100 mg - Labs Labs: 07/23/18 04:15 07/23/18 04:15 PT 12.6 Seconds (9.8-13.1) 07/08/18 00:19 INR 1.1 07/08/18 00:19 APTT 42.4 Seconds (25.6-37.1) H 07/21/18 04:25 - Respiratory Exam Respiratory Exam: Rales, Rhonchi - Cardiovascular Exam Cardiovascular Exam: Irregular Rhythm, +S1, +S2 - Extremities Exam Additional comments: NO LE EDEMA - Additional Findings 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
--- NOTE | 2018-07-23 13:59 | CP.PCM.PN ---
Subjective - Date & Time of Evaluation Date of Evaluation: 07/23/18 Time of Evaluation: 08:00 - Subjective Subjective: seen and examined no new complaints labs reviewed orders signed Objective - Vital Signs/Intake and Output Vital Signs (last 24 hours): Temp Pulse Resp BP Pulse Ox 98.1 F 100 H 18 122/81 94 L 07/23/18 12:00 07/23/18 12:00 07/23/18 12:00 07/23/18 12:00 07/23/18 12:00 Intake and Output: 07/23/18 07/23/18 06:59 18:59 Intake Total 340 550 Output Total 700 Balance -360 550 - Medications Medications: Current Medications Acetaminophen (Tylenol 650mg/20.3ml Solution Ud) 650 mg NG Q6 PRN PRN Reason: Fever>100.4F Last Admin: 07/17/18 04:05 Dose: 650 mg Albuterol/Ipratropium (Duoneb 3 Mg/0.5 Mg (3 Ml) Ud) 3 ml INH RQID [facility] Last Admin: 07/23/18 11:42 Dose: 3 ml Aspirin (Ecotrin) 81 mg PO DAILY [facility] Last Admin: 07/23/18 08:33 Dose: 81 mg Atorvastatin Calcium (Lipitor) 20 mg PO HS [facility] Last Admin: 07/22/18 21:00 Dose: 20 mg Docusate Sodium (Colace Liquid) 100 mg PO BID [facility] Last Admin: 07/23/18 08:32 Dose: Not Given Enoxaparin Sodium (Lovenox) 80 mg SC Q12 [facility]; Protocol Last Admin: 07/23/18 08:34 Dose: 80 mg Folic Acid (Folic Acid) 1 mg NG DAILY [facility] Last Admin: 07/23/18 08:33 Dose: 1 mg Furosemide (Lasix) 40 mg IVP DAILY [facility] Last Admin: 07/23/18 08:34 Dose: 40 mg Doxycycline Hyclate 100 mg/ (Sodium Chloride) 100 mls @ 100 mls/hr IVPB Q12 [facility]; Protocol Last Admin: 07/23/18 08:38 Dose: 100 mls/hr Lactic Acid (Lac-Hydrin 12% Lotion (225 G)) 1 applic TOP TID [facility] Last Admin: 07/23/18 08:34 Dose: 1 applic Methylprednisolone (Solu-Medrol) 30 mg IVP Q12 [facility] Last Admin: 07/23/18 08:37 Dose: 30 mg Pantoprazole Sodium (Protonix Inj) 40 mg IVP DAILY [facility] Last Admin: 07/23/18 08:36 Dose: 40 mg Pyridostigmine [place] (Mestinon Tab) 30 mg PO BID [facility] Last Admin: 07/23/18 08:35 Dose: 30 mg Thiamine HCl (Vitamin B1 Tab) 100 mg NG DAILY [facility] Last Admin: 07/23/18 08:38 Dose: 100 mg - Labs Labs: 07/23/18 04:15 07/23/18 04:15 PT 12.6 Seconds (9.8-13.1) 07/08/18 00:19 INR 1.1 07/08/18 00:19 APTT 42.4 Seconds (25.6-37.1) H 07/21/18 04:25 - Constitutional Appears: Non-toxic, Chronically Ill - Head Exam Head Exam: ATRAUMATIC, NORMAL INSPECTION, NORMOCEPHALIC - Eye Exam Eye Exam: EOMI, Normal appearance, PERRL Pupil Exam: NORMAL ACCOMODATION, PERRL - ENT Exam ENT Exam: Mucous Membranes Moist, Normal Exam - Neck Exam Neck Exam: Full ROM, Normal Inspection. absent: Lymphadenopathy - Respiratory Exam Respiratory Exam: Decreased Breath Sounds, Clear to Ausculation Bilateral, Prolonged Expiratory Phase - Cardiovascular Exam Cardiovascular Exam: REGULAR RHYTHM, +S1, +S2. absent: Murmur - GI/Abdominal Exam GI & Abdominal Exam: Soft, Normal Bowel Sounds. absent: Tenderness - Rectal Exam Rectal Exam: Deferred - Extremities Exam Extremities Exam: Full ROM, Normal Capillary Refill, Normal Inspection. absent: Joint Swelling, Pedal Edema - Back Exam Back Exam: NORMAL INSPECTION - Neurological Exam Neurological Exam: Alert, Awake, CN II-XII Intact, Normal Gait, Oriented x3 - Psychiatric Exam Psychiatric exam: Normal Affect, Normal Mood - Skin Skin Exam: Dry, Intact, Normal Color, Warm Assessment and Plan (1) Cellulitis of right lower leg Status: Resolved (2) Atrial fibrillation Status: Chronic (3) CHF (congestive heart failure) Status: Chronic (4) Endotracheally intubated Status: Resolved (5) Respiratory distress Status: Acute (6) Respiratory failure with hypoxia and hypercapnia Status: Chronic (7) Dependent edema Status: Resolved (8) Pleural effusion, left Status: Resolved (9) Pneumonia Status: Resolved (10) COPD (chronic obstructive pulmonary disease) Status: Chronic (11) Sepsis Status: Resolved - Assessment and Plan (Free Text) Assessment: wbc higher on steroids vanco d/c'd added antifungal coverage
--- NOTE | 2018-07-23 14:26 | CP.PCM.PN ---
Subjective - Date & Time of Evaluation Date of Evaluation: 07/23/18 Time of Evaluation: 14:24 - Subjective Subjective: Patient awake in bed not in acute distress. Vital signs stable. Objective - Vital Signs/Intake and Output Vital Signs (last 24 hours): Temp Pulse Resp BP Pulse Ox 98.1 F 94 H 18 109/58 L 97 07/23/18 12:00 07/23/18 14:00 07/23/18 14:00 07/23/18 14:00 07/23/18 14:00 Intake and Output: 07/23/18 07/23/18 06:59 18:59 Intake Total 340 750 Output Total 700 Balance -360 750 - Medications Medications: Current Medications Acetaminophen (Tylenol 650mg/20.3ml Solution Ud) 650 mg NG Q6 PRN PRN Reason: Fever>100.4F Last Admin: 07/17/18 04:05 Dose: 650 mg Albuterol/Ipratropium (Duoneb 3 Mg/0.5 Mg (3 Ml) Ud) 3 ml INH RQID [facility] Last Admin: 07/23/18 11:42 Dose: 3 ml Aspirin (Ecotrin) 81 mg PO DAILY [facility] Last Admin: 07/23/18 08:33 Dose: 81 mg Atorvastatin Calcium (Lipitor) 20 mg PO HS [facility] Last Admin: 07/22/18 21:00 Dose: 20 mg Docusate Sodium (Colace Liquid) 100 mg PO BID [facility] Last Admin: 07/23/18 08:32 Dose: Not Given Enoxaparin Sodium (Lovenox) 80 mg SC Q12 [facility]; Protocol Last Admin: 07/23/18 08:34 Dose: 80 mg Folic Acid (Folic Acid) 1 mg NG DAILY [facility] Last Admin: 07/23/18 08:33 Dose: 1 mg Furosemide (Lasix) 40 mg IVP DAILY [facility] Last Admin: 07/23/18 08:34 Dose: 40 mg Doxycycline Hyclate 100 mg/ (Sodium Chloride) 100 mls @ 100 mls/hr IVPB Q12 [facility]; Protocol Last Admin: 07/23/18 08:38 Dose: 100 mls/hr Lactic Acid (Lac-Hydrin 12% Lotion (225 G)) 1 applic TOP TID [facility] Last Admin: 07/23/18 08:34 Dose: 1 applic Methylprednisolone (Solu-Medrol) 30 mg IVP Q12 [facility] Last Admin: 07/23/18 08:37 Dose: 30 mg Pantoprazole Sodium (Protonix Inj) 40 mg IVP DAILY [facility] Last Admin: 07/23/18 08:36 Dose: 40 mg Pyridostigmine [place] (Mestinon Tab) 30 mg PO BID [facility] Last Admin: 07/23/18 08:35 Dose: 30 mg Thiamine HCl (Vitamin B1 Tab) 100 mg NG DAILY [facility] Last Admin: 07/23/18 08:38 Dose: 100 mg - Labs Labs: 07/23/18 04:15 07/23/18 04:15 PT 12.6 Seconds (9.8-13.1) 07/08/18 00:19 INR 1.1 07/08/18 00:19 APTT 42.4 Seconds (25.6-37.1) H 07/21/18 04:25 - Constitutional Appears: No Acute Distress - Eye Exam Eye Exam: Conjunctival injection - ENT Exam ENT Exam: Mucous Membranes Moist - Neck Exam Neck Exam: absent: Lymphadenopathy - Respiratory Exam Respiratory Exam: absent: Chest Wall Tenderness - Cardiovascular Exam Cardiovascular Exam: absent: Gallop, JVD - GI/Abdominal Exam GI & Abdominal Exam: Soft, Normal Bowel Sounds - Extremities Exam Extremities Exam: absent: Calf Tenderness - Back Exam Back Exam: absent: CVA tenderness (L), CVA tenderness (R) - Neurological Exam Neurological Exam: Alert - Skin Skin Exam: absent: Cyanosis Assessment and Plan (1) Cellulitis of right lower leg Status: Resolved (2) Pneumonia Status: Resolved (3) Respiratory failure with hypoxia and hypercapnia Status: Chronic (4) Sepsis Status: Resolved - Assessment and Plan (Free Text) Assessment: acute respi failure extubated PNA, CHF exacerbation ANTHONY improved HTN, COPD CHF s/p TAVR Recommendation Patient extubated awake doing much better Metabolic alkalosis improving CO2 down to 31 Kidney function stable electrolytes stable
--- NOTE | 2018-07-23 16:25 | CP.PCM.PN ---
Subjective - Date & Time of Evaluation Date of Evaluation: 07/23/18 Time of Evaluation: 22:22 - Subjective Subjective: Above noted Extended discussion with family Objective - Vital Signs/Intake and Output Vital Signs (last 24 hours): Temp Pulse Resp BP Pulse Ox 97.6 F 91 H 18 116/60 96 07/23/18 16:00 07/23/18 16:00 07/23/18 14:00 07/23/18 16:00 07/23/18 16:00 Intake and Output: 07/23/18 07/23/18 06:59 18:59 Intake Total 340 750 Output Total 700 Balance -360 750 - Medications Medications: Current Medications Acetaminophen (Tylenol 650mg/20.3ml Solution Ud) 650 mg NG Q6 PRN PRN Reason: Fever>100.4F Last Admin: 07/17/18 04:05 Dose: 650 mg Albuterol/Ipratropium (Duoneb 3 Mg/0.5 Mg (3 Ml) Ud) 3 ml INH RQID [facility] Last Admin: 07/23/18 16:07 Dose: 3 ml Aspirin (Ecotrin) 81 mg PO DAILY [facility] Last Admin: 07/23/18 08:33 Dose: 81 mg Atorvastatin Calcium (Lipitor) 20 mg PO HS [facility] Last Admin: 07/22/18 21:00 Dose: 20 mg Docusate Sodium (Colace Liquid) 100 mg PO BID [facility] Last Admin: 07/23/18 08:32 Dose: Not Given Enoxaparin Sodium (Lovenox) 80 mg SC Q12 [facility]; Protocol Last Admin: 07/23/18 08:34 Dose: 80 mg Folic Acid (Folic Acid) 1 mg NG DAILY [facility] Last Admin: 07/23/18 08:33 Dose: 1 mg Furosemide (Lasix) 40 mg IVP DAILY [facility] Last Admin: 07/23/18 08:34 Dose: 40 mg Doxycycline Hyclate 100 mg/ (Sodium Chloride) 100 mls @ 100 mls/hr IVPB Q12 [facility]; Protocol Last Admin: 07/23/18 08:38 Dose: 100 mls/hr Lactic Acid (Lac-Hydrin 12% Lotion (225 G)) 1 applic TOP TID [facility] Last Admin: 07/23/18 15:40 Dose: 1 applic Methylprednisolone (Solu-Medrol) 30 mg IVP Q12 [facility] Last Admin: 07/23/18 08:37 Dose: 30 mg Pantoprazole Sodium (Protonix Inj) 40 mg IVP DAILY [facility] Last Admin: 07/23/18 08:36 Dose: 40 mg Pyridostigmine [place] (Mestinon Tab) 30 mg PO BID [facility] Last Admin: 07/23/18 08:35 Dose: 30 mg Thiamine HCl (Vitamin B1 Tab) 100 mg NG DAILY [facility] Last Admin: 07/23/18 08:38 Dose: 100 mg - Labs Labs: 07/23/18 04:15 07/23/18 04:15 PT 12.6 Seconds (9.8-13.1) 07/08/18 00:19 INR 1.1 07/08/18 00:19 APTT 42.4 Seconds (25.6-37.1) H 07/21/18 04:25 - Respiratory Exam Respiratory Exam: NORMAL BREATHING PATTERN - Cardiovascular Exam Cardiovascular Exam: REGULAR RHYTHM - GI/Abdominal Exam GI & Abdominal Exam: Normal Bowel Sounds Assessment and Plan - Assessment and Plan (Free Text) Assessment: S/P Acute Respiratory Failure Multi lobar pneumonia Bilateral Pleural effusion S/P thoracentesis Hx COPD [facility]A Smoker ICU Pulmonary ID Hx CHF Afib S/P TAVR LV fxn good Cardiology anticoagulation Cellulitis RLE improved ABX Hx ANTHONY/ CKD Nephrology Chronic ETOH ?? HX Abdominal distention improved Colonic ileus ( recurrent ) + FOBT ?? [place] held etiol ?? 2 to L-S surgery pyridostigmine Hx LLE edema cellulitis ?? ecchymosis?? Endovascular consult ??? CT scan done no significant findings Hx Hyperkalemia 2 to Bactrim?? Hold NAMRATA Hx Hypokalemia Hyperkalemia HTN Prediabetes Hx Low back surgery (Severe Spinal Stenosis) Post operative illeus
[2018-07-24 05:22] LABS: BASO % 0.2 % (0.0-2.0); HEMOGLOBIN 9.5 g/dL (12.0-18.0); LYMPH # 0.6 K/uL (1.0-4.3); LYMPH % 6.8 % (20.0-40.0); MEAN CELL VOLUME 89.4 fl (80.0-94.0); MEAN CORPUSCULAR HEMOGLOBIN 28.9 pg (27.0-31.0); MEAN CORPUSCULAR HGB CONC 32.3 g/dL (33.0-37.0); MEAN PLATELET VOLUME 10.1 fl (7.2-11.7); MONO # 0.3 K/uL (0.0-0.8); NEUT # 7.6 K/uL (1.8-7.0); RBC 3.3 Mil/uL (4.40-5.90); RED CELL DISTRIBUTION WIDTH 16.8 % (11.5-14.5); WHITE BLOOD COUNT 8.5 K/uL (4.8-10.8)
[2018-07-24 05:43] LABS: ALBUMIN 3.2 g/dL (3.5-5.0); ALT/SGPT 61 U/L (21-72); AST/SGOT 47 U/L (17-59); BLOOD UREA NITROGEN 45 mg/dl (9-20); CALCIUM 8.9 mg/dL (8.4-10.2); GFR NON-AFRICAN AMERICAN > 60
[2018-07-24] MEDS: Albuterol-Ipratrop 3 mg / 0.5 (3 ml) UD INH SCH ×4 (08:06→19:26)
[2018-07-24] MEDS: MethylPREDNISolone 40 mg Vial IVP SCH ×2 (08:25→20:11)
[2018-07-24] MEDS: Enoxaparin 80 mg Syringe SC SCH ×2 (08:30→20:11)
--- NOTE | 2018-07-24 10:54 | CP.PCM.PN ---
Subjective - Date & Time of Evaluation Date of Evaluation: 07/24/18 Time of Evaluation: 10:54 - Subjective Subjective: Seen on morning rounds. Remains on supplemental oxygen via nasal canula. Awake and alert, mood is good. PO intake noted. No swallowing difficulties. Still has simms catheter and rectal tube. Vital signs have been stable, remains afebrile. Normotensive, well oxygenated, NC @ 4 LPM. Had some physical therapyb yesterday. Awake, cooperative, appears well oriented, NAD. Minimal dependant edema, no cyanosis. Neck is supple and trachea midline. Pharynx is pink and moist w/o exudate. Nasal passages are patent, no bleeding. No dullness on chest percussion. Breath sounds are diminished bilaterally. No audible wheezes or bronchial breath sounds. Scattered dry to medium rales in lower lobes. Few rhonchi in dependant zones. Heart sounds are distant. Abdomen is prominent, but soft and non-tender. S/P respiratory failure-resolved. S/P pleural effusions-resolved. COPD - stable. TAVR. Continue present regimen. Physical therapy. Transfer out of ICU pending. CCT 30min Objective - Vital Signs/Intake and Output Vital Signs (last 24 hours): Temp Pulse Resp BP Pulse Ox 98.8 F 93 H 21 125/63 97 07/24/18 08:00 07/24/18 10:00 07/24/18 10:00 07/24/18 10:00 07/24/18 10:00 Intake and Output: 07/23/18 07/24/18 23:59 11:59 Intake Total 800 350 Output Total 1575 415 Balance -775 -65 - Medications Medications: Current Medications Acetaminophen (Tylenol 650mg/20.3ml Solution Ud) 650 mg NG Q6 PRN PRN Reason: Fever>100.4F Last Admin: 07/17/18 04:05 Dose: 650 mg Albuterol/Ipratropium (Duoneb 3 Mg/0.5 Mg (3 Ml) Ud) 3 ml INH RQID [facility] Last Admin: 07/24/18 08:06 Dose: 3 ml Aspirin (Ecotrin) 81 mg PO DAILY [facility] Last Admin: 07/24/18 08:23 Dose: 81 mg Atorvastatin Calcium (Lipitor) 20 mg PO HS [facility] Last Admin: 07/23/18 21:02 Dose: 20 mg Docusate Sodium (Colace Liquid) 100 mg PO BID [facility] Last Admin: 07/24/18 08:22 Dose: Not Given Enoxaparin Sodium (Lovenox) 80 mg SC Q12 [facility]; Protocol Last Admin: 07/24/18 08:30 Dose: 80 mg Folic Acid (Folic Acid) 1 mg NG DAILY [facility] Last Admin: 07/24/18 08:24 Dose: 1 mg Furosemide (Lasix) 40 mg IVP DAILY [facility] Last Admin: 07/24/18 08:30 Dose: 40 mg Doxycycline Hyclate 100 mg/ (Sodium Chloride) 100 mls @ 100 mls/hr IVPB Q12 [facility]; Protocol Last Admin: 07/24/18 08:25 Dose: 100 mls/hr Lactic Acid (Lac-Hydrin 12% Lotion (225 G)) 1 applic TOP TID [facility] Last Admin: 07/24/18 08:24 Dose: 1 applic Methylprednisolone (Solu-Medrol) 30 mg IVP Q12 [facility] Last Admin: 07/24/18 08:25 Dose: 30 mg Pantoprazole Sodium (Protonix Inj) 40 mg IVP DAILY [facility] Last Admin: 07/24/18 08:24 Dose: 40 mg Pyridostigmine [place] (Mestinon Tab) 30 mg PO BID [facility] Last Admin: 07/24/18 08:24 Dose: 30 mg Thiamine HCl (Vitamin B1 Tab) 100 mg NG DAILY [facility] Last Admin: 07/24/18 08:26 Dose: 100 mg - Labs Labs: 07/24/18 04:12 07/24/18 04:12 PT 12.6 Seconds (9.8-13.1) 07/08/18 00:19 INR 1.1 07/08/18 00:19 APTT 42.4 Seconds (25.6-37.1) H 07/21/18 04:25 Assessment and Plan (1) Respiratory failure with hypoxia and hypercapnia Status: Resolved (2) Endotracheally intubated Status: Resolved (3) Pleural effusion, left Status: Resolved (4) Dependent edema Status: Resolved (5) COPD (chronic obstructive pulmonary disease) Status: Chronic (6) Pneumonia Status: Resolved
--- NOTE | 2018-07-24 15:39 | PN ---
DATE: 07/24/2018 CRITICAL CARE PROGRESS NOTE LOCATION: The patient in ICU, bed 432. TIME SPENT: 35 minutes. SUBJECTIVE: The patient is seen and evaluated at the bedside. Past medical, surgical, family and social history reviewed. An 88-year-old male with history significant for hypertension, coronary artery disease, aortic stenosis status post TAVR, chronic atrial fibrillation with multiple admissions for COPD exacerbation and respiratory failure. Admitted with progressively worsening shortness of breath, noted right upper lobe pneumonia, bilateral pleural effusions requiring intubation and mechanical ventilation status post extubation, currently on oxygen supplement 4 liters nasal cannula and overnight telemetry. AFib, rate controlled, normotensive, afebrile. This morning, alert, awake, follows commands appropriate. PHYSICAL EXAMINATION: VITAL SIGNS: Temperature 98.8, heart rate of 93, blood pressure 122/64, mean arterial pressure 83, respiratory rate 21, saturation 97% on oxygen supplement 4 liters. Intake 1250, output 1990, negative balance 740. Weight 175. HEAD, EYES, EARS, NOSE, AND THROAT: Pupils reactive. Conjunctivae pink. Sclerae white. NECK: Supple. Trachea central. CHEST: Bilateral breath sounds diminished in intensity, prolonged expiration. HEART: Rhythm irregular. No audible murmur. ABDOMEN: Bowel sounds present. Soft. Mild distention. EXTREMITIES: 1+ edema. Dorsalis pedis palpable. NEUROLOGIC: Alert, awake. Follows commands appropriate. Moves all four extremities. SKIN: Without rash. CURRENT MEDICATIONS: Tylenol 650 every 6 hours p.r.n., DuoNeb 3 mL via nebulizer q.i.d., Ecotrin 81 mg daily, Lipitor 20 mg p.o. at bedtime, Colace 100 mg twice daily, doxycycline 100 mg IV push every 12 hours, Lovenox 80 subcu every 12 hours, folic acid 1 mg daily, Lasix 40 mg IV daily, Lac-Hydrin 12% lotion one application topically three times daily, Solu-Medrol 30 mg IV every 12 hours, Protonix 40 IV daily, Mestinon 30 mg p.o. b.i.d., thiamine 100 mg daily. IMPRESSION: 1. Neurologic: Alert, awake, follows commands appropriate. On Mestinon. 2. Pulmonary: Status post recurrent intubation for hypercapnic hypoxic respiratory failure, bilateral pleural effusion, community-acquired pneumonia, remains extubated, stable, saturating over 94%, on bronchodilators with DuoNeb. Continue systemic steroid. 3. Cardiac: History of chronic systolic heart failure, chronic atrial fibrillation, rate controlled. On anticoagulation. 4. Infectious disease: Community-acquired pneumonia. Cellulitis, lower extremities. Appreciate Infectious Disease recommendation. Currently on doxycycline 100 mg IV every 12 hours. 5. Hematology: Leukocytosis stable, on steroid. Hemoglobin and hematocrit stable. 6. Renal: Negative fluid balance. Mild prerenal azotemia, stable 7. Gastrointestinal: Liver enzymes within normal limits. Hypoalbuminemia stable. Continue feeding as tolerated. 8. Endocrinology: Maintain blood sugar less than 130 to 140. Keep head of bed 30 degrees up. Continue physical therapy as tolerated. Chente Hair MD
--- NOTE | 2018-07-24 19:57 | CP.PCM.PN ---
Subjective - Date & Time of Evaluation Date of Evaluation: 07/24/18 Time of Evaluation: 22:22 - Subjective Subjective: Above noted Sputum c/s yeast Objective - Vital Signs/Intake and Output Vital Signs (last 24 hours): Temp Pulse Resp BP Pulse Ox 98.6 F 95 H 20 133/79 97 07/24/18 16:00 07/24/18 17:52 07/24/18 17:52 07/24/18 17:52 07/24/18 17:52 Intake and Output: 07/24/18 07/25/18 18:59 06:59 Intake Total 1200 Output Total 1000 Balance 200 - Medications Medications: Current Medications Acetaminophen (Tylenol 650mg/20.3ml Solution Ud) 650 mg NG Q6 PRN PRN Reason: Fever>100.4F Last Admin: 07/17/18 04:05 Dose: 650 mg Albuterol/Ipratropium (Duoneb 3 Mg/0.5 Mg (3 Ml) Ud) 3 ml INH RQID [facility] Last Admin: 07/24/18 19:26 Dose: 3 ml Aspirin (Ecotrin) 81 mg PO DAILY [facility] Last Admin: 07/24/18 08:23 Dose: 81 mg Atorvastatin Calcium (Lipitor) 20 mg PO HS [facility] Last Admin: 07/23/18 21:02 Dose: 20 mg Docusate Sodium (Colace Liquid) 100 mg PO BID [facility] Last Admin: 07/24/18 16:47 Dose: Not Given Enoxaparin Sodium (Lovenox) 80 mg SC Q12 [facility]; Protocol Last Admin: 07/24/18 08:30 Dose: 80 mg Folic Acid (Folic Acid) 1 mg NG DAILY [facility] Last Admin: 07/24/18 08:24 Dose: 1 mg Furosemide (Lasix) 40 mg IVP DAILY [facility] Last Admin: 07/24/18 08:30 Dose: 40 mg Doxycycline Hyclate 100 mg/ (Sodium Chloride) 100 mls @ 100 mls/hr IVPB Q12 [facility]; Protocol Last Admin: 07/24/18 08:25 Dose: 100 mls/hr Lactic Acid (Lac-Hydrin 12% Lotion (225 G)) 1 applic TOP TID [facility] Last Admin: 07/24/18 16:48 Dose: 1 applic Methylprednisolone (Solu-Medrol) 30 mg IVP Q12 [facility] Last Admin: 07/24/18 08:25 Dose: 30 mg Pantoprazole Sodium (Protonix Inj) 40 mg IVP DAILY [facility] Last Admin: 07/24/18 08:24 Dose: 40 mg Pyridostigmine [place] (Mestinon Tab) 30 mg PO BID [facility] Last Admin: 07/24/18 16:48 Dose: 30 mg Thiamine HCl (Vitamin B1 Tab) 100 mg NG DAILY [facility] Last Admin: 07/24/18 08:26 Dose: 100 mg - Labs Labs: 07/24/18 04:12 07/24/18 04:12 PT 12.6 Seconds (9.8-13.1) 07/08/18 00:19 INR 1.1 07/08/18 00:19 APTT 42.4 Seconds (25.6-37.1) H 07/21/18 04:25 - Respiratory Exam Respiratory Exam: NORMAL BREATHING PATTERN - Cardiovascular Exam Cardiovascular Exam: REGULAR RHYTHM - GI/Abdominal Exam GI & Abdominal Exam: Normal Bowel Sounds Assessment and Plan - Assessment and Plan (Free Text) Assessment: Acute Respiratory Failure Multi lobar pneumonia ( PNA ? CAP? ) Bilateral Pleural effusion S/P thoracentesis Hx COPD [facility] Smoker ICU Pulmonary ID ABX antifungal Hx CHF Afib S/P TAVR LV fxn good Cardiology rate controlled anticoagulation Cellulitis RLE improved ABX Hx ANTHONY/ CKD Metabolic alkalosis Nephrology Chronic ETOH ?? HX Abdominal distention improved Colonic ileus ( recurrent ) + FOBT ?? [place] held etiol ?? 2 to L-S surgery pyridostigmine Hx LLE edema cellulitis ?? ecchymosis?? Endovascular consult ??? CT scan done no significant findings Hx Hyperkalemia 2 to Bactrim?? Hold NAMRATA Hx Hypokalemia Hyperkalemia HTN Prediabetes Hx Low back surgery (Severe Spinal Stenosis) Post operative illeus
--- NOTE | 2018-07-25 00:11 | CP.PCM.PN ---
Subjective - Date & Time of Evaluation Date of Evaluation: 07/24/18 Time of Evaluation: 23:30 - Subjective Subjective: Patient continues to have regular bowel movements. Objective - Vital Signs/Intake and Output Vital Signs (last 24 hours): Temp Pulse Resp BP Pulse Ox 97.4 F L 84 27 H 115/67 99 07/24/18 20:00 07/24/18 22:00 07/24/18 22:00 07/24/18 22:00 07/24/18 22:00 Intake and Output: 07/24/18 07/25/18 18:59 06:59 Intake Total 1200 200 Output Total 1000 Balance 200 200 - Medications Medications: Current Medications Acetaminophen (Tylenol 650mg/20.3ml Solution Ud) 650 mg NG Q6 PRN PRN Reason: Fever>100.4F Last Admin: 07/17/18 04:05 Dose: 650 mg Albuterol/Ipratropium (Duoneb 3 Mg/0.5 Mg (3 Ml) Ud) 3 ml INH RQID [facility] Last Admin: 07/24/18 19:26 Dose: 3 ml Aspirin (Ecotrin) 81 mg PO DAILY [facility] Last Admin: 07/24/18 08:23 Dose: 81 mg Atorvastatin Calcium (Lipitor) 20 mg PO HS [facility] Last Admin: 07/24/18 21:05 Dose: 20 mg Docusate Sodium (Colace Liquid) 100 mg PO BID [facility] Last Admin: 07/24/18 16:47 Dose: Not Given Enoxaparin Sodium (Lovenox) 80 mg SC Q12 [facility]; Protocol Last Admin: 07/24/18 20:11 Dose: 80 mg Folic Acid (Folic Acid) 1 mg NG DAILY [facility] Last Admin: 07/24/18 08:24 Dose: 1 mg Furosemide (Lasix) 40 mg IVP DAILY [facility] Last Admin: 07/24/18 08:30 Dose: 40 mg Doxycycline Hyclate 100 mg/ (Sodium Chloride) 100 mls @ 100 mls/hr IVPB Q12 [facility]; Protocol Last Admin: 07/24/18 20:14 Dose: 100 mls/hr Lactic Acid (Lac-Hydrin 12% Lotion (225 G)) 1 applic TOP TID [facility] Last Admin: 07/24/18 16:48 Dose: 1 applic Methylprednisolone (Solu-Medrol) 30 mg IVP Q12 [facility] Last Admin: 07/24/18 20:11 Dose: 30 mg Pantoprazole Sodium (Protonix Inj) 40 mg IVP DAILY [facility] Last Admin: 07/24/18 08:24 Dose: 40 mg Pyridostigmine [place] (Mestinon Tab) 30 mg PO BID [facility] Last Admin: 07/24/18 16:48 Dose: 30 mg Thiamine HCl (Vitamin B1 Tab) 100 mg NG DAILY [facility] Last Admin: 07/24/18 08:26 Dose: 100 mg - Labs Labs: 07/24/18 04:12 07/24/18 04:12 PT 12.6 Seconds (9.8-13.1) 07/08/18 00:19 INR 1.1 07/08/18 00:19 APTT 42.4 Seconds (25.6-37.1) H 07/21/18 04:25 - Head Exam Head Exam: ATRAUMATIC - Eye Exam Eye Exam: Normal appearance - ENT Exam ENT Exam: Normal Exam - Respiratory Exam Respiratory Exam: Clear to Ausculation Bilateral - Cardiovascular Exam Cardiovascular Exam: REGULAR RHYTHM - GI/Abdominal Exam GI & Abdominal Exam: Soft, Normal Bowel Sounds. absent: Tenderness Assessment and Plan (1) Abdominal distention Assessment & Plan: Continues to have regular bowel movements. Currently not distended. Status: Acute
[2018-07-25 05:15] LABS: BASO % 0.1 % (0.0-2.0); HEMOGLOBIN 9.9 g/dL (12.0-18.0); LYMPH # 0.5 K/uL (1.0-4.3); LYMPH % 8.4 % (20.0-40.0); MEAN CELL VOLUME 89.2 fl (80.0-94.0); MEAN CORPUSCULAR HEMOGLOBIN 28.3 pg (27.0-31.0); MEAN CORPUSCULAR HGB CONC 31.7 g/dL (33.0-37.0); MEAN PLATELET VOLUME 9.7 fl (7.2-11.7); MONO # 0.3 K/uL (0.0-0.8); NEUT # 5.4 K/uL (1.8-7.0); NEUT % 86.5 % (50.0-75.0); RBC 3.5 Mil/uL (4.40-5.90); RED CELL DISTRIBUTION WIDTH 16.9 % (11.5-14.5); WHITE BLOOD COUNT 6.2 K/uL (4.8-10.8)
[2018-07-25 05:31] LABS: ALB/GLOB RATIO 1.1 (1.0-2.1); ALBUMIN 3.3 g/dL (3.5-5.0); ALT/SGPT 67 U/L (21-72); AST/SGOT 39 U/L (17-59); BLOOD UREA NITROGEN 43 mg/dl (9-20); CALCIUM 8.8 mg/dL (8.4-10.2); GFR NON-AFRICAN AMERICAN > 60
[2018-07-25] MEDS: Albuterol-Ipratrop 3 mg / 0.5 (3 ml) UD INH SCH ×4 (07:54→19:17)
[2018-07-25] MEDS: Enoxaparin 80 mg Syringe SC SCH ×2 (09:21→21:53)
[2018-07-25] MEDS: MethylPREDNISolone 40 mg Vial IVP SCH ×2 (09:23→21:54)
--- NOTE | 2018-07-25 11:53 | CP.PCM.PN ---
Subjective - Date & Time of Evaluation Date of Evaluation: 07/15/18 Time of Evaluation: 10:30 - Subjective Subjective: BREATHING COMFORTABLY NO CHEST PAIN Objective - Vital Signs/Intake and Output Vital Signs (last 24 hours): Temp Pulse Resp BP Pulse Ox 97.5 F L 92 H 17 123/60 98 07/25/18 08:00 07/25/18 10:00 07/25/18 10:00 07/25/18 10:00 07/25/18 10:00 Intake and Output: 07/25/18 07/25/18 06:59 18:59 Intake Total 200 260 Output Total 850 750 Balance -650 -490 - Medications Medications: Current Medications Acetaminophen (Tylenol 650mg/20.3ml Solution Ud) 650 mg NG Q6 PRN PRN Reason: Fever>100.4F Last Admin: 07/17/18 04:05 Dose: 650 mg Albuterol/Ipratropium (Duoneb 3 Mg/0.5 Mg (3 Ml) Ud) 3 ml INH RQID [facility] Last Admin: 07/25/18 11:19 Dose: 3 ml Aspirin (Ecotrin) 81 mg PO DAILY [facility] Last Admin: 07/25/18 09:18 Dose: 81 mg Atorvastatin Calcium (Lipitor) 20 mg PO HS [facility] Last Admin: 07/24/18 21:05 Dose: 20 mg Docusate Sodium (Colace Liquid) 100 mg PO BID [facility] Last Admin: 07/25/18 09:16 Dose: 100 mg Enoxaparin Sodium (Lovenox) 80 mg SC Q12 [facility]; Protocol Last Admin: 07/25/18 09:21 Dose: 80 mg Folic Acid (Folic Acid) 1 mg NG DAILY [facility] Last Admin: 07/25/18 09:18 Dose: 1 mg Furosemide (Lasix) 40 mg IVP DAILY [facility] Last Admin: 07/25/18 09:25 Dose: 40 mg Lactic Acid (Lac-Hydrin 12% Lotion (225 G)) 1 applic TOP TID [facility] Last Admin: 07/25/18 09:17 Dose: 1 applic Methylprednisolone (Solu-Medrol) 30 mg IVP Q12 [facility] Last Admin: 07/25/18 09:23 Dose: 30 mg Pantoprazole Sodium (Protonix Inj) 40 mg IVP DAILY [facility] Last Admin: 07/25/18 09:16 Dose: 40 mg Pyridostigmine [place] (Mestinon Tab) 30 mg PO BID [facility] Last Admin: 07/25/18 09:18 Dose: 30 mg Thiamine HCl (Vitamin B1 Tab) 100 mg NG DAILY [facility] Last Admin: 07/25/18 09:17 Dose: 100 mg - Labs Labs: 07/25/18 04:17 07/25/18 04:17 PT 12.6 Seconds (9.8-13.1) 07/08/18 00:19 INR 1.1 07/08/18 00:19 APTT 42.4 Seconds (25.6-37.1) H 07/21/18 04:25 - Respiratory Exam Respiratory Exam: Rales, Rhonchi - Cardiovascular Exam Cardiovascular Exam: Irregular Rhythm, +S1, +S2 - Extremities Exam Additional comments: NO LE EDEMA - Additional Findings Additional findings: [employer] ATRIAL FIBRILLATION Assessment and Plan - Assessment and Plan (Free Text) Assessment: PNEUMONIA-TREATED TAVR CHRONIC ATRIAL FIBRILLATION HYPERTENSION HYPERLIPIDEMIA Plan: CONTINUE ASPIRIN, ATORVASTATIN, FUROSEMIDE, LOVENOX AND DUONED
--- NOTE | 2018-07-25 12:53 | CP.PCM.PN ---
Subjective - Date & Time of Evaluation Date of Evaluation: 07/25/18 Time of Evaluation: 08:00 - Subjective Subjective: awake and alert no new complaints interim events noted some diarrhea reported by nursing staff antibiotics on hold no fever patient examined entries reviewed labs reviewed orders signed Objective - Vital Signs/Intake and Output Vital Signs (last 24 hours): Temp Pulse Resp BP Pulse Ox 98 F 126 H 35 H 123/60 98 07/25/18 12:00 07/25/18 12:00 07/25/18 12:00 07/25/18 12:00 07/25/18 10:00 Intake and Output: 07/25/18 07/25/18 06:59 18:59 Intake Total 200 260 Output Total 850 750 Balance -650 -490 - Medications Medications: Current Medications Acetaminophen (Tylenol 650mg/20.3ml Solution Ud) 650 mg NG Q6 PRN PRN Reason: Fever>100.4F Last Admin: 07/17/18 04:05 Dose: 650 mg Albuterol/Ipratropium (Duoneb 3 Mg/0.5 Mg (3 Ml) Ud) 3 ml INH RQID [facility] Last Admin: 07/25/18 11:19 Dose: 3 ml Aspirin (Ecotrin) 81 mg PO DAILY [facility] Last Admin: 07/25/18 09:18 Dose: 81 mg Atorvastatin Calcium (Lipitor) 20 mg PO HS [facility] Last Admin: 07/24/18 21:05 Dose: 20 mg Docusate Sodium (Colace Liquid) 100 mg PO BID [facility] Last Admin: 07/25/18 09:16 Dose: 100 mg Enoxaparin Sodium (Lovenox) 80 mg SC Q12 [facility]; Protocol Last Admin: 07/25/18 09:21 Dose: 80 mg Folic Acid (Folic Acid) 1 mg NG DAILY [facility] Last Admin: 07/25/18 09:18 Dose: 1 mg Furosemide (Lasix) 40 mg IVP DAILY [facility] Last Admin: 07/25/18 09:25 Dose: 40 mg Lactic Acid (Lac-Hydrin 12% Lotion (225 G)) 1 applic TOP TID [facility] Last Admin: 07/25/18 09:17 Dose: 1 applic Methylprednisolone (Solu-Medrol) 30 mg IVP Q12 [facility] Last Admin: 07/25/18 09:23 Dose: 30 mg Pantoprazole Sodium (Protonix Inj) 40 mg IVP DAILY [facility] Last Admin: 07/25/18 09:16 Dose: 40 mg Pyridostigmine [place] (Mestinon Tab) 30 mg PO BID [facility] Last Admin: 07/25/18 09:18 Dose: 30 mg Thiamine HCl (Vitamin B1 Tab) 100 mg NG DAILY [facility] Last Admin: 07/25/18 09:17 Dose: 100 mg - Labs Labs: 07/25/18 04:17 07/25/18 04:17 PT 12.6 Seconds (9.8-13.1) 07/08/18 00:19 INR 1.1 07/08/18 00:19 APTT 42.4 Seconds (25.6-37.1) H 07/21/18 04:25 - Constitutional Appears: Non-toxic, No Acute Distress, Chronically Ill - Head Exam Head Exam: ATRAUMATIC, NORMAL INSPECTION, NORMOCEPHALIC - Eye Exam Eye Exam: EOMI, Normal appearance, PERRL Pupil Exam: NORMAL ACCOMODATION, PERRL - ENT Exam ENT Exam: Mucous Membranes Moist, Normal Exam - Neck Exam Neck Exam: Full ROM, Normal Inspection. absent: Lymphadenopathy - Respiratory Exam Respiratory Exam: Decreased Breath Sounds, Clear to Ausculation Bilateral, Prolonged Expiratory Phase - Cardiovascular Exam Cardiovascular Exam: REGULAR RHYTHM, +S1, +S2. absent: Murmur - GI/Abdominal Exam GI & Abdominal Exam: Soft, Normal Bowel Sounds. absent: Tenderness - Rectal Exam Rectal Exam: Deferred - Exam Exam: NORMAL INSPECTION - Extremities Exam Extremities Exam: Full ROM, Normal Capillary Refill, Normal Inspection. absent: Joint Swelling, Pedal Edema - Back Exam Back Exam: NORMAL INSPECTION - Neurological Exam Neurological Exam: Alert, Awake, CN II-XII Intact, Normal Gait, Oriented x3 - Psychiatric Exam Psychiatric exam: Normal Affect, Normal Mood - Skin Skin Exam: Dry, Intact, Normal Color, Warm Assessment and Plan (1) Cellulitis of right lower leg Status: Resolved (2) Atrial fibrillation Status: Chronic (3) CHF (congestive heart failure) Status: Chronic (4) Endotracheally intubated Status: Resolved (5) Respiratory distress Status: Acute (6) Respiratory failure with hypoxia and hypercapnia Status: Chronic (7) Dependent edema Status: Resolved (8) Pleural effusion, left Status: Resolved (9) Pneumonia Status: Resolved (10) COPD (chronic obstructive pulmonary disease) Status: Chronic (11) Sepsis Status: Resolved - Assessment and Plan (Free Text) Assessment: doing well s/p extubation still has LBM will start PO Flagyl
--- NOTE | 2018-07-25 17:41 | CP.PCM.PN ---
Subjective - Date & Time of Evaluation Date of Evaluation: 07/25/18 Time of Evaluation: 22:22 - Subjective Subjective: Continues to do well Objective - Vital Signs/Intake and Output Vital Signs (last 24 hours): Temp Pulse Resp BP Pulse Ox 98.4 F 98 H 14 114/68 97 07/25/18 16:00 07/25/18 16:00 07/25/18 16:00 07/25/18 16:00 07/25/18 16:00 Intake and Output: 07/25/18 07/25/18 06:59 18:59 Intake Total 200 380 Output Total 850 990 Balance -650 -610 - Medications Medications: Current Medications Acetaminophen (Tylenol 650mg/20.3ml Solution Ud) 650 mg NG Q6 PRN PRN Reason: Fever>100.4F Last Admin: 07/17/18 04:05 Dose: 650 mg Albuterol/Ipratropium (Duoneb 3 Mg/0.5 Mg (3 Ml) Ud) 3 ml INH RQID [facility] Last Admin: 07/25/18 15:13 Dose: 3 ml Aspirin (Ecotrin) 81 mg PO DAILY [facility] Last Admin: 07/25/18 09:18 Dose: 81 mg Atorvastatin Calcium (Lipitor) 20 mg PO HS [facility] Last Admin: 07/24/18 21:05 Dose: 20 mg Docusate Sodium (Colace Liquid) 100 mg PO BID [facility] Last Admin: 07/25/18 16:03 Dose: Not Given Enoxaparin Sodium (Lovenox) 80 mg SC Q12 [facility]; Protocol Last Admin: 07/25/18 09:21 Dose: 80 mg Folic Acid (Folic Acid) 1 mg NG DAILY [facility] Last Admin: 07/25/18 09:18 Dose: 1 mg Furosemide (Lasix) 40 mg IVP DAILY [facility] Last Admin: 07/25/18 09:25 Dose: 40 mg Lactic Acid (Lac-Hydrin 12% Lotion (225 G)) 1 applic TOP TID [facility] Last Admin: 07/25/18 16:03 Dose: 1 applic Methylprednisolone (Solu-Medrol) 30 mg IVP Q12 [facility] Last Admin: 07/25/18 09:23 Dose: 30 mg Pantoprazole Sodium (Protonix Inj) 40 mg IVP DAILY [facility] Last Admin: 07/25/18 09:16 Dose: 40 mg Pyridostigmine [place] (Mestinon Tab) 30 mg PO BID [facility] Last Admin: 07/25/18 16:04 Dose: 30 mg Thiamine HCl (Vitamin B1 Tab) 100 mg NG DAILY [facility] Last Admin: 07/25/18 09:17 Dose: 100 mg - Labs Labs: 07/25/18 04:17 07/25/18 04:17 PT 12.6 Seconds (9.8-13.1) 07/08/18 00:19 INR 1.1 07/08/18 00:19 APTT 42.4 Seconds (25.6-37.1) H 07/21/18 04:25 - Respiratory Exam Respiratory Exam: NORMAL BREATHING PATTERN - Cardiovascular Exam Cardiovascular Exam: REGULAR RHYTHM - GI/Abdominal Exam GI & Abdominal Exam: Normal Bowel Sounds Assessment and Plan - Assessment and Plan (Free Text) Assessment: S/P Acute Respiratory Failure Multi lobar pneumonia ( PNA ? CAP? ) Bilateral Pleural effusion S/P thoracentesis Hx COPD COSA Smoker ICU Pulmonary ID ABX antifungal Hx CHF Afib S/P TAVR LV fxn good Cardiology rate controlled anticoagulation Cellulitis RLE improved ABX Hx ANTHONY/ CKD Metabolic alkalosis improving Nephrology Chronic ETOH ?? HX Abdominal distention improved Colonic ileus ( recurrent ) + FOBT ?? [place] held etiol ?? 2 to L-S surgery pyridostigmine Hx LLE edema cellulitis ?? ecchymosis?? Endovascular consult ??? CT scan done no significant findings Hx Hyperkalemia 2 to Bactrim?? Hold NAMRATA Hx Hypokalemia Hyperkalemia HTN Prediabetes Hx Low back surgery (Severe Spinal Stenosis) Post operative illeus
[2018-07-25] MEDS: Saccharomyces Boulardi 250 mg Cap PO SCH (20:53)
--- NOTE | 2018-07-26 02:17 | PN ---
PROCEDURE DATE: 07/25/2018 CRITICAL CARE PROGRESS NOTE LOCATION: The patient in ICU, bed 423. TIME SPENT: 35 minutes. SUBJECTIVE: The patient is seen and evaluated at the bedside. Past medical, surgical, family, and social history reviewed. An 88-year-old male with history significant for hypertension, coronary artery disease, aortic stenosis status post TAVR, chronic atrial fibrillation with multiple admissions for COPD exacerbation and respiratory failure. Admitted with progressively worsening shortness of breath, noted right upper lobe pneumonia, bilateral pleural effusions requiring intubation and mechanical ventilation status post extubation, currently on oxygen supplement through nasal cannula. Overnight telemetry; AFib, rate controlled, normotensive, afebrile. PHYSICAL EXAMINATION: GENERAL: This morning alert, awake, follows commands appropriate. VITAL SIGNS: Temperature 98, heart rate 90 to 126, blood pressure 123/60, mean arterial pressure 81, respiratory rate 17 to 35, saturating 98%. Intake 1400, output 1850, negative balance 450. Weight 171 pounds. HEAD, EYES, EARS, NOSE, AND THROAT: Pupils reactive, 2 to 3 mm. Conjunctivae pink. Sclerae white. NECK: Supple. Trachea is central. CHEST: Bilateral breath sounds, diminished in intensity, prolonged expiration. HEART: Rhythm irregular. No audible murmur. ABDOMEN: Bowel sounds present. Soft. Mild distention. EXTREMITIES: Edema 1+. Dorsalis pedis palpable. NEUROLOGIC: Alert, awake, follows commands appropriate. CURRENT MEDICATIONS: Tylenol 650 mg every 6 hours p.r.n., DuoNeb 3 mL via nebulizer q.i.d., Ecotrin 81 mg daily, Lipitor 20 mg at bedtime, Colace 100 mg twice daily, doxycycline 100 mg IV every 12 hours, Lovenox 80 mg subcu every 12 hours, folic acid 1 mg daily, Lasix 40 mg IV daily, Lac-Hydrin 12% lotion one application topically three times a day, Solu-Medrol 30 mg IV every 12 hours, Protonix 40 IV daily, Mestinon 30 mg p.o. b.i.d., thiamine 100 mg p.o. daily. IMPRESSION: 1. Neurologic: Alert, awake, follows commands appropriate. On Mestinon. 2. Pulmonary: Status post recurrent intubation for hypercapnic hypoxic respiratory failure, bilateral pleural effusion, and pneumonia. Doing well on oxygen supplement. Continue bronchodilator and DuoNeb. Wean off systemic steroid. 3. Cardiac: History of chronic systolic heart failure and chronic atrial fibrillation, rate controlled on anticoagulation. 4. Infectious Disease: Community-acquired pneumonia and cellulitis of lower extremities. Appreciate Infectious Disease followup and recommendation. On doxycycline 100 mg intravenous every 12 hours. 5. Hematology: Leukocytosis, stable on steroid, hemoglobin and hematocrit. 6. Renal: Negative fluid balance. Mild prerenal azotemia, stable. 7. Gastrointestinal: Liver enzymes within normal limits. Hypoalbuminemia stable. Continue feeding as tolerated. 8. Endocrinology: Maintain blood sugar 130 to 140. Keep head of bed 30 degrees up. Continue physical therapy as tolerated. Chente Hair MD
[2018-07-26] MEDS: Albuterol-Ipratrop 3 mg / 0.5 (3 ml) UD INH SCH ×4 (07:46→19:20)
[2018-07-26] MEDS: Saccharomyces Boulardi 250 mg Cap PO SCH ×2 (09:10→16:29)
[2018-07-26] MEDS: Enoxaparin 80 mg Syringe SC SCH ×2 (09:27→21:42)
[2018-07-26] MEDS: MethylPREDNISolone 40 mg Vial IVP SCH ×2 (09:28→21:43)
--- NOTE | 2018-07-26 09:34 | CP.PCM.PN ---
Subjective - Date & Time of Evaluation Date of Evaluation: 07/26/18 Time of Evaluation: 09:34 - Subjective Subjective: Patient awake feeling much better Shortness of breath. Signs stable. Objective - Vital Signs/Intake and Output Vital Signs (last 24 hours): Temp Pulse Resp BP Pulse Ox 98 F 90 20 115/65 95 07/26/18 08:12 07/26/18 08:12 07/26/18 08:12 07/26/18 08:12 07/26/18 08:12 - Medications Medications: Current Medications Acetaminophen (Tylenol 650mg/20.3ml Solution Ud) 650 mg NG Q6 PRN PRN Reason: Fever>100.4F Last Admin: 07/17/18 04:05 Dose: 650 mg Albuterol/Ipratropium (Duoneb 3 Mg/0.5 Mg (3 Ml) Ud) 3 ml INH RQID [facility] Last Admin: 07/26/18 07:46 Dose: 3 ml Aspirin (Ecotrin) 81 mg PO DAILY [facility] Last Admin: 07/25/18 09:18 Dose: 81 mg Atorvastatin Calcium (Lipitor) 20 mg PO HS [facility] Last Admin: 07/25/18 21:53 Dose: 20 mg Docusate Sodium (Colace Liquid) 100 mg PO BID [facility] Last Admin: 07/25/18 16:03 Dose: Not Given Enoxaparin Sodium (Lovenox) 80 mg SC Q12 [facility]; Protocol Last Admin: 07/25/18 21:53 Dose: 80 mg Folic Acid (Folic Acid) 1 mg NG DAILY [facility] Last Admin: 07/25/18 09:18 Dose: 1 mg Furosemide (Lasix) 40 mg IVP DAILY [facility] Last Admin: 07/25/18 09:25 Dose: 40 mg Lactic Acid (Lac-Hydrin 12% Lotion (225 G)) 1 applic TOP TID [facility] Last Admin: 07/25/18 16:03 Dose: 1 applic Methylprednisolone (Solu-Medrol) 30 mg IVP Q12 [facility] Last Admin: 07/25/18 21:54 Dose: 30 mg Metronidazole (Flagyl) 500 mg PO Q8 [facility]; Protocol Last Admin: 07/26/18 01:44 Dose: 500 mg Pantoprazole Sodium (Protonix Inj) 40 mg IVP DAILY [facility] Last Admin: 07/25/18 09:16 Dose: 40 mg Pyridostigmine [place] (Mestinon Tab) 30 mg PO BID [facility] Last Admin: 07/25/18 16:04 Dose: 30 mg Saccharomyces Boulardii (Florastor) 250 mg PO BID [facility] Last Admin: 07/25/18 20:53 Dose: 250 mg Thiamine HCl (Vitamin B1 Tab) 100 mg NG DAILY [facility] Last Admin: 07/25/18 09:17 Dose: 100 mg - Labs Labs: 07/25/18 04:17 07/25/18 04:17 PT 12.6 Seconds (9.8-13.1) 07/08/18 00:19 INR 1.1 07/08/18 00:19 APTT 42.4 Seconds (25.6-37.1) H 07/21/18 04:25 - Constitutional Appears: No Acute Distress - Eye Exam Eye Exam: Conjunctival injection - ENT Exam ENT Exam: Mucous Membranes Moist - Neck Exam Neck Exam: absent: Lymphadenopathy - Respiratory Exam Respiratory Exam: absent: Chest Wall Tenderness - Cardiovascular Exam Cardiovascular Exam: absent: Gallop, Rubs - GI/Abdominal Exam GI & Abdominal Exam: Soft, Normal Bowel Sounds - Extremities Exam Extremities Exam: absent: Calf Tenderness - Back Exam Back Exam: absent: CVA tenderness (L), CVA tenderness (R) - Neurological Exam Neurological Exam: Alert Assessment and Plan (1) Cellulitis of right lower leg Status: Resolved (2) Pneumonia Status: Resolved (3) Respiratory failure with hypoxia and hypercapnia Status: Resolved (4) Sepsis Status: Resolved - Assessment and Plan (Free Text) Assessment: S/P acute respi failure extubated PNA, CHF exacerbation ANTHONY improved HTN, COPD CHF s/p TAVR Recommendation awake doing much better Metabolic alkalosis worsening CO2 going up 34. Patient may need Diamox if CO2 continue rising Kidney function stable electrolytes stable
--- NOTE | 2018-07-26 10:35 | CP.PCM.PN ---
Subjective - Date & Time of Evaluation Date of Evaluation: 07/26/18 Time of Evaluation: 10:26 - Subjective Subjective: Seen on morning rounds in telemetry. Seated on the edge of his bed, appears comfortable. SpO2 97% on nasal canula at 3.5 LPM. Heart rate irregular, remains in a fib. Vital signs have remained stable. He continues to be afebrile. Culture from pleural fluid was negative. No dependant edema, no cyanosis. Extremities are warm to touch. Neck is supple, trachea is midline. Dullness on chest percussion in the left base. Bronchial breath sounds are heard in the left lower lobe. Right lung has a few rhonchi, otherwise is clear. No audible wheezes heard. Heart sounds are distant, irregular rhythm. For chest x-ray this AM in department. Resume low dose acetazolamide PO. Continue physical therapy and aerosol therapy. Objective - Vital Signs/Intake and Output Vital Signs (last 24 hours): Temp Pulse Resp BP Pulse Ox 98 F 90 20 115/65 95 07/26/18 08:12 07/26/18 08:12 07/26/18 08:12 07/26/18 09:37 07/26/18 08:12 Intake and Output: 07/25/18 07/26/18 23:59 11:59 Intake Total 360 Output Total 440 Balance -80 - Medications Medications: Current Medications Acetaminophen (Tylenol 650mg/20.3ml Solution Ud) 650 mg NG Q6 PRN PRN Reason: Fever>100.4F Last Admin: 07/17/18 04:05 Dose: 650 mg Acetazolamide (Diamox 250 Mg Tab) 250 mg PO DAILY [facility] Albuterol/Ipratropium (Duoneb 3 Mg/0.5 Mg (3 Ml) Ud) 3 ml INH RQID [facility] Last Admin: 07/26/18 07:46 Dose: 3 ml Aspirin (Ecotrin) 81 mg PO DAILY [facility] Last Admin: 07/26/18 09:29 Dose: 81 mg Atorvastatin Calcium (Lipitor) 20 mg PO HS [facility] Last Admin: 07/25/18 21:53 Dose: 20 mg Docusate Sodium (Colace Liquid) 100 mg PO BID [facility] Last Admin: 07/26/18 09:29 Dose: 100 mg Enoxaparin Sodium (Lovenox) 80 mg SC Q12 [facility]; Protocol Last Admin: 07/26/18 09:27 Dose: 80 mg Folic Acid (Folic Acid) 1 mg NG DAILY [facility] Last Admin: 07/26/18 09:29 Dose: 1 mg Furosemide (Lasix) 40 mg IVP DAILY [facility] Last Admin: 07/26/18 09:37 Dose: 40 mg Lactic Acid (Lac-Hydrin 12% Lotion (225 G)) 1 applic TOP TID [facility] Last Admin: 07/26/18 09:26 Dose: 1 applic Methylprednisolone (Solu-Medrol) 30 mg IVP Q12 [facility] Last Admin: 07/26/18 09:28 Dose: 30 mg Metronidazole (Flagyl) 500 mg PO Q8 [facility]; Protocol Last Admin: 07/26/18 09:29 Dose: 500 mg Pantoprazole Sodium (Protonix Inj) 40 mg IVP DAILY [facility] Last Admin: 07/26/18 09:29 Dose: 40 mg Pyridostigmine [place] (Mestinon Tab) 30 mg PO BID [facility] Last Admin: 07/26/18 09:29 Dose: 30 mg Saccharomyces Boulardii (Florastor) 250 mg PO BID [facility] Last Admin: 07/25/18 20:53 Dose: 250 mg Thiamine HCl (Vitamin B1 Tab) 100 mg NG DAILY [facility] Last Admin: 07/26/18 09:29 Dose: 100 mg - Labs Labs: 07/25/18 04:17 07/25/18 04:17 PT 12.6 Seconds (9.8-13.1) 07/08/18 00:19 INR 1.1 07/08/18 00:19 APTT 42.4 Seconds (25.6-37.1) H 07/21/18 04:25 Assessment and Plan (1) Respiratory failure with hypoxia and hypercapnia Status: Resolved (2) Endotracheally intubated Status: Resolved (3) Pleural effusion, left Status: Resolved (4) Dependent edema Status: Resolved (5) COPD (chronic obstructive pulmonary disease) Status: Chronic (6) Pneumonia Status: Resolved
--- NOTE | 2018-07-26 11:51 | CP.PCM.PN ---
Subjective - Date & Time of Evaluation Date of Evaluation: 07/26/18 Time of Evaluation: 07:00 - Subjective Subjective: improving less sob no fever no chest pain Objective - Vital Signs/Intake and Output Vital Signs (last 24 hours): Temp Pulse Resp BP Pulse Ox 98 F 90 20 115/65 95 07/26/18 08:12 07/26/18 08:12 07/26/18 08:12 07/26/18 09:37 07/26/18 08:12 - Medications Medications: Current Medications Acetaminophen (Tylenol 650mg/20.3ml Solution Ud) 650 mg NG Q6 PRN PRN Reason: Fever>100.4F Last Admin: 07/17/18 04:05 Dose: 650 mg Acetazolamide (Diamox 250 Mg Tab) 250 mg PO DAILY [facility] Albuterol/Ipratropium (Duoneb 3 Mg/0.5 Mg (3 Ml) Ud) 3 ml INH RQID [facility] Last Admin: 07/26/18 11:29 Dose: 3 ml Aspirin (Ecotrin) 81 mg PO DAILY [facility] Last Admin: 07/26/18 09:29 Dose: 81 mg Atorvastatin Calcium (Lipitor) 20 mg PO HS [facility] Last Admin: 07/25/18 21:53 Dose: 20 mg Docusate Sodium (Colace Liquid) 100 mg PO BID [facility] Last Admin: 07/26/18 09:29 Dose: 100 mg Enoxaparin Sodium (Lovenox) 80 mg SC Q12 [facility]; Protocol Last Admin: 07/26/18 09:27 Dose: 80 mg Folic Acid (Folic Acid) 1 mg NG DAILY [facility] Last Admin: 07/26/18 09:29 Dose: 1 mg Furosemide (Lasix) 40 mg IVP DAILY [facility] Last Admin: 07/26/18 09:37 Dose: 40 mg Lactic Acid (Lac-Hydrin 12% Lotion (225 G)) 1 applic TOP TID [facility] Last Admin: 07/26/18 09:26 Dose: 1 applic Methylprednisolone (Solu-Medrol) 30 mg IVP Q12 [facility] Last Admin: 07/26/18 09:28 Dose: 30 mg Metronidazole (Flagyl) 500 mg PO Q8 [facility]; Protocol Last Admin: 07/26/18 09:29 Dose: 500 mg Pantoprazole Sodium (Protonix Inj) 40 mg IVP DAILY [facility] Last Admin: 04/29/19 09:29 Dose: 40 mg Pyridostigmine [place] (Mestinon Tab) 30 mg PO BID [facility] Last Admin: 07/26/18 09:29 Dose: 30 mg Saccharomyces Boulardii (Florastor) 250 mg PO BID [facility] Last Admin: 07/25/18 20:53 Dose: 250 mg Thiamine HCl (Vitamin B1 Tab) 100 mg NG DAILY [facility] Last Admin: 07/26/18 09:29 Dose: 100 mg - Labs Labs: 07/25/18 04:17 07/25/18 04:17 PT 12.6 Seconds (9.8-13.1) 07/08/18 00:19 INR 1.1 07/08/18 00:19 APTT 42.4 Seconds (25.6-37.1) H 07/21/18 04:25 - Constitutional Appears: Non-toxic, No Acute Distress, Chronically Ill - Head Exam Head Exam: ATRAUMATIC, NORMAL INSPECTION, NORMOCEPHALIC - Eye Exam Eye Exam: EOMI, Normal appearance, PERRL Pupil Exam: NORMAL ACCOMODATION, PERRL - ENT Exam ENT Exam: Mucous Membranes Moist, Normal Exam - Neck Exam Neck Exam: Full ROM, Normal Inspection. absent: Lymphadenopathy - Respiratory Exam Respiratory Exam: Clear to Ausculation Bilateral, NORMAL BREATHING PATTERN - Cardiovascular Exam Cardiovascular Exam: REGULAR RHYTHM, +S1, +S2. absent: Murmur - GI/Abdominal Exam GI & Abdominal Exam: Soft, Normal Bowel Sounds. absent: Tenderness - Rectal Exam Rectal Exam: Deferred - Exam Exam: NORMAL INSPECTION - Extremities Exam Extremities Exam: Full ROM, Normal Capillary Refill, Normal Inspection. absent: Joint Swelling, Pedal Edema - Back Exam Back Exam: NORMAL INSPECTION - Neurological Exam Neurological Exam: Alert, Awake, CN II-XII Intact, Oriented x3 Neuro motor strength exam: Left Upper Extremity: 3, Right Upper Extremity: 3, Left Lower Extremity: 3, Right Lower Extremity: 3 - Psychiatric Exam Psychiatric exam: Normal Affect, Normal Mood - Skin Skin Exam: Dry, Intact, Normal Color, Warm Assessment and Plan (1) Cellulitis of right lower leg Status: Resolved (2) Atrial fibrillation Status: Chronic (3) CHF (congestive heart failure) Status: Chronic (4) Endotracheally intubated Status: Resolved (5) Respiratory distress Status: Acute (6) Respiratory failure with hypoxia and hypercapnia Status: Resolved (7) Dependent edema Status: Resolved (8) Pleural effusion, left Status: Resolved (9) Pneumonia Status: Resolved (10) COPD (chronic obstructive pulmonary disease) Status: Chronic (11) Sepsis Status: Resolved - Assessment and Plan (Free Text) Assessment: improving s/p resp failure and pneumonia cont to observe off antibiotics
--- NOTE | 2018-07-26 13:09 | RAD ---
Date of service: 07/26/2018 HISTORY: Pleural effusions. COMPARISON: Multiple serial examinations preceding the most recent study: 07/22/2018. TECHNIQUE: Chest PA and lateral views FINDINGS: LUNGS: Left lower lobe infiltrate. PLEURA: Left pleural effusion inseparable from adjacent consolidative change. CARDIOVASCULAR: Cardiomegaly. Atherosclerotic calcifications identified primarily aortic arch. No pulmonary vascular congestion. OSSEOUS STRUCTURES: No significant abnormalities. VISUALIZED UPPER ABDOMEN: Normal. OTHER FINDINGS: None. IMPRESSION: Left lower lobe infiltrate/left pleural effusion unchanged compared to the prior study.
--- NOTE | 2018-07-26 19:19 | CP.PCM.PN ---
Subjective - Date & Time of Evaluation Date of Evaluation: 07/26/18 Time of Evaluation: 22:22 - Subjective Subjective: Above noted Objective - Vital Signs/Intake and Output Vital Signs (last 24 hours): Temp Pulse Resp BP Pulse Ox 97.7 F 84 20 110/66 98 07/26/18 12:11 07/26/18 16:07 07/26/18 12:11 07/26/18 12:11 07/26/18 16:07 - Medications Medications: Current Medications Acetaminophen (Tylenol 650mg/20.3ml Solution Ud) 650 mg NG Q6 PRN PRN Reason: Fever>100.4F Last Admin: 07/17/18 04:05 Dose: 650 mg Acetazolamide (Diamox 250 Mg Tab) 250 mg PO DAILY [facility] Last Admin: 07/26/18 16:30 Dose: 250 mg Albuterol/Ipratropium (Duoneb 3 Mg/0.5 Mg (3 Ml) Ud) 3 ml INH RQID [facility] Last Admin: 07/26/18 15:18 Dose: 3 ml Aspirin (Ecotrin) 81 mg PO DAILY [facility] Last Admin: 07/26/18 09:29 Dose: 81 mg Atorvastatin Calcium (Lipitor) 20 mg PO HS [facility] Last Admin: 07/25/18 21:53 Dose: 20 mg Docusate Sodium (Colace Liquid) 100 mg PO BID [facility] Last Admin: 07/26/18 16:29 Dose: 100 mg Enoxaparin Sodium (Lovenox) 80 mg SC Q12 [facility]; Protocol Last Admin: 07/26/18 09:27 Dose: 80 mg Folic Acid (Folic Acid) 1 mg NG DAILY [facility] Last Admin: 07/26/18 09:29 Dose: 1 mg Furosemide (Lasix) 40 mg IVP DAILY [facility] Last Admin: 07/26/18 09:37 Dose: 40 mg Lactic Acid (Lac-Hydrin 12% Lotion (225 G)) 1 applic TOP TID [facility] Last Admin: 07/26/18 16:29 Dose: 1 applic Methylprednisolone (Solu-Medrol) 30 mg IVP Q12 [facility] Last Admin: 07/26/18 09:28 Dose: 30 mg Metronidazole (Flagyl) 500 mg PO Q8 [facility]; Protocol Last Admin: 07/26/18 16:30 Dose: 500 mg Pantoprazole Sodium (Protonix Inj) 40 mg IVP DAILY [facility] Last Admin: 07/26/18 09:29 Dose: 40 mg Pyridostigmine [place] (Mestinon Tab) 30 mg PO BID [facility] Last Admin: 07/26/18 16:30 Dose: 30 mg Saccharomyces Boulardii (Florastor) 250 mg PO BID [facility] Last Admin: 07/26/18 16:29 Dose: 250 mg Thiamine HCl (Vitamin B1 Tab) 100 mg NG DAILY [facility] Last Admin: 07/26/18 09:29 Dose: 100 mg - Labs Labs: 07/25/18 04:17 07/25/18 04:17 PT 12.6 Seconds (9.8-13.1) 07/08/18 00:19 INR 1.1 07/08/18 00:19 APTT 42.4 Seconds (25.6-37.1) H 07/21/18 04:25 - Respiratory Exam Respiratory Exam: NORMAL BREATHING PATTERN - Cardiovascular Exam Cardiovascular Exam: REGULAR RHYTHM - GI/Abdominal Exam GI & Abdominal Exam: Normal Bowel Sounds Assessment and Plan - Assessment and Plan (Free Text) Assessment: Deconditioning OOB PT S/P Acute Respiratory Failure Multi lobar pneumonia ( PNA ? CAP? ) Bilateral Pleural effusion S/P thoracentesis Hx COPD [facility] Smoker ICU Pulmonary ID ABX antifungal Hx CHF Afib S/P TAVR LV fxn good Cardiology rate controlled anticoagulation Cellulitis RLE improved ABX Hx ANTHONY/ CKD Metabolic alkalosis improving Nephrology Chronic ETOH ?? HX Abdominal distention improved Colonic ileus ( recurrent ) + FOBT ?? [place] held etiol ?? 2 to L-S surgery pyridostigmine Hx LLE edema cellulitis ?? ecchymosis?? Endovascular consult ??? CT scan done no significant findings Hx Hyperkalemia 2 to Bactrim?? Hold NAMRATA Hx Hypokalemia Hyperkalemia HTN Prediabetes Hx Low back surgery (Severe Spinal Stenosis) Post operative illeus
--- NOTE | 2018-07-26 23:26 | CP.PCM.PN ---
Subjective - Date & Time of Evaluation Date of Evaluation: 07/26/18 Time of Evaluation: 13:00 - Subjective Subjective: Patient in good spirits. In no acute distress. Reports daily BMs which are soft. Objective - Vital Signs/Intake and Output Vital Signs (last 24 hours): Temp Pulse Resp BP Pulse Ox 97.6 F 95 H 18 115/56 L 97 07/26/18 20:04 07/26/18 20:04 07/26/18 20:04 07/26/18 20:04 07/26/18 20:04 - Medications Medications: Current Medications Acetaminophen (Tylenol 650mg/20.3ml Solution Ud) 650 mg NG Q6 PRN PRN Reason: Fever>100.4F Last Admin: 07/17/18 04:05 Dose: 650 mg Acetazolamide (Diamox 250 Mg Tab) 250 mg PO DAILY [facility] Last Admin: 07/26/18 16:30 Dose: 250 mg Albuterol/Ipratropium (Duoneb 3 Mg/0.5 Mg (3 Ml) Ud) 3 ml INH RQID [facility] Last Admin: 07/26/18 19:20 Dose: 3 ml Aspirin (Ecotrin) 81 mg PO DAILY [facility] Last Admin: 07/26/18 09:29 Dose: 81 mg Atorvastatin Calcium (Lipitor) 20 mg PO HS [facility] Last Admin: 07/26/18 21:42 Dose: 20 mg Docusate Sodium (Colace Liquid) 100 mg PO BID [facility] Last Admin: 07/26/18 16:29 Dose: 100 mg Enoxaparin Sodium (Lovenox) 80 mg SC Q12 [facility]; Protocol Last Admin: 07/26/18 21:42 Dose: 80 mg Folic Acid (Folic Acid) 1 mg NG DAILY [facility] Last Admin: 07/26/18 09:29 Dose: 1 mg Furosemide (Lasix) 40 mg IVP DAILY [facility] Last Admin: 07/26/18 09:37 Dose: 40 mg Lactic Acid (Lac-Hydrin 12% Lotion (225 G)) 1 applic TOP TID [facility] Last Admin: 07/26/18 16:29 Dose: 1 applic Methylprednisolone (Solu-Medrol) 30 mg IVP Q12 [facility] Last Admin: 07/26/18 21:43 Dose: 30 mg Metronidazole (Flagyl) 500 mg PO Q8 [facility]; Protocol Last Admin: 07/26/18 16:30 Dose: 500 mg Pantoprazole Sodium (Protonix Inj) 40 mg IVP DAILY [facility] Last Admin: 07/26/18 09:29 Dose: 40 mg Pyridostigmine [place] (Mestinon Tab) 30 mg PO BID [facility] Last Admin: 07/26/18 16:30 Dose: 30 mg Saccharomyces Boulardii (Florastor) 250 mg PO BID [facility] Last Admin: 07/26/18 16:29 Dose: 250 mg Thiamine HCl (Vitamin B1 Tab) 100 mg NG DAILY [facility] Last Admin: 07/26/18 09:29 Dose: 100 mg - Labs Labs: 07/25/18 04:17 07/25/18 04:17 PT 12.6 Seconds (9.8-13.1) 07/08/18 00:19 INR 1.1 07/08/18 00:19 APTT 42.4 Seconds (25.6-37.1) H 07/21/18 04:25 - Head Exam Head Exam: ATRAUMATIC - Eye Exam Eye Exam: Normal appearance - ENT Exam ENT Exam: Normal Exam - Neck Exam Neck Exam: Full ROM - Respiratory Exam Respiratory Exam: Clear to Ausculation Bilateral - Cardiovascular Exam Cardiovascular Exam: REGULAR RHYTHM - GI/Abdominal Exam GI & Abdominal Exam: Soft, Normal Bowel Sounds. absent: Tenderness Assessment and Plan (1) Abdominal distention Assessment & Plan: Abdomen remains soft and BMs are regular. Continue pyridostigmine and senna. Status: Acute
[2018-07-27] MEDS: Albuterol-Ipratrop 3 mg / 0.5 (3 ml) UD INH SCH ×4 (07:49→19:55)
[2018-07-27] MEDS: Saccharomyces Boulardi 250 mg Cap PO SCH ×2 (08:40→16:26)
[2018-07-27] MEDS: Enoxaparin 80 mg Syringe SC SCH ×2 (08:41→21:37)
[2018-07-27] MEDS: MethylPREDNISolone 40 mg Vial IVP SCH ×2 (08:48→16:27)
[2018-07-27] MEDS ORDERED: methylPREDNISolone 30 MG in Sodium Chloride 0.9% 50 ML IV SCH (09:00)
--- NOTE | 2018-07-27 10:33 | CP.PCM.PN ---
Subjective - Date & Time of Evaluation Date of Evaluation: 07/27/18 Time of Evaluation: 10:29 - Subjective Subjective: Seated on the edge of he bed. Appears comfortable at rest. On nasal canula has SpO2 90-96%. Recent chest x-ray suggests that left pleural effusion is re-accumulating. There is minimal dependant edema in the LEs at this point. He offers no complaints of chest pain or cough. Telemetry shows a fib rhythm with V rates around 100. On exam there is dullness again in the left lower posterior chest. Breath sounds are absent in the left base and there are bronchial breath sounds in the left mid-zone posteriorly. He is presently on furosemide and spironolactone and his BP is good. Need to discuss with cardiology the possibilities associated with this problem. He may need repeat thoracentesis on the left with cytology followed by a repeat CT chest after the fluid is removed. He did have bronchoscopy at the bedside in the ICU w/o any visible abnormality seen on the left. I will discuss the above with his PMD. Objective - Vital Signs/Intake and Output Vital Signs (last 24 hours): Temp Pulse Resp BP Pulse Ox 97.3 F L 76 20 123/73 98 07/27/18 08:20 07/27/18 08:20 07/27/18 08:20 07/27/18 08:44 07/27/18 08:20 - Medications Medications: Current Medications Acetaminophen (Tylenol 650mg/20.3ml Solution Ud) 650 mg NG Q6 PRN PRN Reason: Fever>100.4F Last Admin: 07/17/18 04:05 Dose: 650 mg Acetazolamide (Diamox 250 Mg Tab) 250 mg PO DAILY [facility] Last Admin: 07/27/18 08:42 Dose: 250 mg Albuterol/Ipratropium (Duoneb 3 Mg/0.5 Mg (3 Ml) Ud) 3 ml INH RQID [facility] Last Admin: 07/27/18 07:49 Dose: 3 ml Aspirin (Ecotrin) 81 mg PO DAILY [facility] Last Admin: 07/27/18 08:44 Dose: 81 mg Atorvastatin Calcium (Lipitor) 20 mg PO HS [facility] Last Admin: 07/26/18 21:42 Dose: 20 mg Docusate Sodium (Colace Liquid) 100 mg PO BID [facility] Last Admin: 07/27/18 08:40 Dose: 100 mg Enoxaparin Sodium (Lovenox) 80 mg SC Q12 [facility]; Protocol Last Admin: 07/27/18 08:41 Dose: 80 mg Folic Acid (Folic Acid) 1 mg NG DAILY [facility] Last Admin: 07/27/18 08:43 Dose: 1 mg Furosemide (Lasix) 40 mg IVP DAILY [facility] Last Admin: 07/27/18 08:44 Dose: 40 mg Lactic Acid (Lac-Hydrin 12% Lotion (225 G)) 1 applic TOP TID [facility] Last Admin: 07/27/18 08:43 Dose: 1 applic Methylprednisolone (Solu-Medrol) 30 mg IVP DAILY [facility] Metronidazole (Flagyl) 500 mg PO Q8 [facility]; Protocol Last Admin: 07/27/18 08:42 Dose: 500 mg Pantoprazole Sodium (Protonix Inj) 40 mg IVP DAILY [facility] Last Admin: 07/27/18 08:45 Dose: 40 mg Pyridostigmine [place] (Mestinon Tab) 30 mg PO BID [facility] Last Admin: 07/27/18 08:40 Dose: 30 mg Saccharomyces Boulardii (Florastor) 250 mg PO BID [facility] Last Admin: 07/27/18 08:40 Dose: 250 mg Thiamine HCl (Vitamin B1 Tab) 100 mg NG DAILY [facility] Last Admin: 07/27/18 08:41 Dose: 100 mg - Labs Labs: 07/25/18 04:17 07/25/18 04:17 PT 12.6 Seconds (9.8-13.1) 07/08/18 00:19 INR 1.1 07/08/18 00:19 APTT 42.4 Seconds (25.6-37.1) H 07/21/18 04:25 Assessment and Plan (1) Respiratory failure with hypoxia and hypercapnia Status: Resolved (2) Endotracheally intubated Status: Resolved (3) Pleural effusion, left Status: Resolved (4) Dependent edema Status: Resolved (5) COPD (chronic obstructive pulmonary disease) Status: Chronic (6) Pneumonia Status: Resolved
--- NOTE | 2018-07-27 11:15 | CP.PCM.PN ---
Subjective - Date & Time of Evaluation Date of Evaluation: 07/27/18 Time of Evaluation: 09:00 - Subjective Subjective: events noted possible reaccumulation of effusion notesd afeb off antibiotics cont to observe Objective - Vital Signs/Intake and Output Vital Signs (last 24 hours): Temp Pulse Resp BP Pulse Ox 97.3 F L 76 20 123/73 98 07/27/18 08:20 07/27/18 08:20 07/27/18 08:20 07/27/18 08:44 07/27/18 08:20 - Medications Medications: Current Medications Acetaminophen (Tylenol 650mg/20.3ml Solution Ud) 650 mg NG Q6 PRN PRN Reason: Fever>100.4F Last Admin: 07/17/18 04:05 Dose: 650 mg Acetazolamide (Diamox 250 Mg Tab) 250 mg PO DAILY [facility] Last Admin: 07/27/18 08:42 Dose: 250 mg Albuterol/Ipratropium (Duoneb 3 Mg/0.5 Mg (3 Ml) Ud) 3 ml INH RQID [facility] Last Admin: 07/27/18 07:49 Dose: 3 ml Aspirin (Ecotrin) 81 mg PO DAILY [facility] Last Admin: 07/27/18 08:44 Dose: 81 mg Atorvastatin Calcium (Lipitor) 20 mg PO HS [facility] Last Admin: 07/26/18 21:42 Dose: 20 mg Docusate Sodium (Colace Liquid) 100 mg PO BID [facility] Last Admin: 07/27/18 08:40 Dose: 100 mg Enoxaparin Sodium (Lovenox) 80 mg SC Q12 [facility]; Protocol Last Admin: 07/27/18 08:41 Dose: 80 mg Folic Acid (Folic Acid) 1 mg NG DAILY [facility] Last Admin: 07/27/18 08:43 Dose: 1 mg Furosemide (Lasix) 40 mg IVP DAILY [facility] Last Admin: 07/27/18 08:44 Dose: 40 mg Lactic Acid (Lac-Hydrin 12% Lotion (225 G)) 1 applic TOP TID [facility] Last Admin: 07/27/18 08:43 Dose: 1 applic Methylprednisolone (Solu-Medrol) 30 mg IVP DAILY [facility] Metronidazole (Flagyl) 500 mg PO Q8 [facility]; Protocol Last Admin: 07/27/18 08:42 Dose: 500 mg Pantoprazole Sodium (Protonix Inj) 40 mg IVP DAILY [facility] Last Admin: 07/27/18 08:45 Dose: 40 mg Pyridostigmine [place] (Mestinon Tab) 30 mg PO BID [facility] Last Admin: 07/27/18 08:40 Dose: 30 mg Saccharomyces Boulardii (Florastor) 250 mg PO BID [facility] Last Admin: 07/27/18 08:40 Dose: 250 mg Thiamine HCl (Vitamin B1 Tab) 100 mg NG DAILY [facility] Last Admin: 07/27/18 08:41 Dose: 100 mg - Labs Labs: 07/25/18 04:17 07/25/18 04:17 PT 12.6 Seconds (9.8-13.1) 07/08/18 00:19 INR 1.1 07/08/18 00:19 APTT 42.4 Seconds (25.6-37.1) H 07/21/18 04:25 - Constitutional Appears: Well - Head Exam Head Exam: ATRAUMATIC, NORMAL INSPECTION, NORMOCEPHALIC - Eye Exam Eye Exam: EOMI, Normal appearance, PERRL Pupil Exam: NORMAL ACCOMODATION, PERRL - ENT Exam ENT Exam: Mucous Membranes Moist, Normal Exam - Neck Exam Neck Exam: Full ROM, Normal Inspection. absent: Lymphadenopathy - Respiratory Exam Respiratory Exam: Clear to Ausculation Bilateral, NORMAL BREATHING PATTERN - Cardiovascular Exam Cardiovascular Exam: REGULAR RHYTHM, +S1, +S2. absent: Murmur - GI/Abdominal Exam GI & Abdominal Exam: Soft, Normal Bowel Sounds. absent: Tenderness - Rectal Exam Rectal Exam: Deferred - Extremities Exam Extremities Exam: Full ROM, Normal Capillary Refill, Normal Inspection. absent: Joint Swelling, Pedal Edema - Back Exam Back Exam: NORMAL INSPECTION - Neurological Exam Neurological Exam: Alert, Awake, CN II-XII Intact, Motor Sensory Deficit, Oriented x3. absent: Normal Gait Neuro motor strength exam: Left Upper Extremity: 3, Right Upper Extremity: 3, Left Lower Extremity: 3, Right Lower Extremity: 3 - Psychiatric Exam Psychiatric exam: Depressed - Skin Skin Exam: Dry, Intact, Normal Color, Warm Assessment and Plan (1) Cellulitis of right lower leg Status: Resolved (2) Atrial fibrillation Status: Chronic (3) CHF (congestive heart failure) Status: Chronic (4) Endotracheally intubated Status: Resolved (5) Respiratory distress Status: Acute (6) Respiratory failure with hypoxia and hypercapnia Status: Resolved (7) Dependent edema Status: Resolved (8) Pleural effusion, left Status: Resolved (9) Pneumonia Status: Resolved (10) COPD (chronic obstructive pulmonary disease) Status: Chronic (11) Sepsis Status: Resolved - Assessment and Plan (Free Text) Assessment: hold IV antibiotics 'monitor for signs of infection May need thoracentesis again
--- NOTE | 2018-07-27 20:44 | CP.PCM.PN ---
Subjective - Date & Time of Evaluation Date of Evaluation: 07/27/18 Time of Evaluation: 22:22 - Subjective Subjective: above noted Objective - Vital Signs/Intake and Output Vital Signs (last 24 hours): Temp Pulse Resp BP Pulse Ox 97.6 F 101 H 17 117/63 99 07/27/18 19:42 07/27/18 19:42 07/27/18 19:42 07/27/18 19:42 07/27/18 19:42 - Medications Medications: Current Medications Acetaminophen (Tylenol 650mg/20.3ml Solution Ud) 650 mg NG Q6 PRN PRN Reason: Fever>100.4F Last Admin: 07/17/18 04:05 Dose: 650 mg Acetazolamide (Diamox 250 Mg Tab) 250 mg PO DAILY [facility] Last Admin: 07/27/18 08:42 Dose: 250 mg Albuterol/Ipratropium (Duoneb 3 Mg/0.5 Mg (3 Ml) Ud) 3 ml INH RQID [facility] Last Admin: 07/27/18 19:55 Dose: 3 ml Aspirin (Ecotrin) 81 mg PO DAILY [facility] Last Admin: 07/27/18 08:44 Dose: 81 mg Atorvastatin Calcium (Lipitor) 20 mg PO HS [facility] Last Admin: 07/26/18 21:42 Dose: 20 mg Docusate Sodium (Colace Liquid) 100 mg PO BID [facility] Last Admin: 07/27/18 16:25 Dose: 100 mg Enoxaparin Sodium (Lovenox) 80 mg SC Q12 [facility]; Protocol Last Admin: 07/27/18 08:41 Dose: 80 mg Folic Acid (Folic Acid) 1 mg NG DAILY [facility] Last Admin: 07/27/18 08:43 Dose: 1 mg Furosemide (Lasix) 40 mg IVP DAILY [facility] Last Admin: 07/27/18 08:44 Dose: 40 mg Lactic Acid (Lac-Hydrin 12% Lotion (225 G)) 1 applic TOP TID [facility] Last Admin: 07/27/18 16:26 Dose: 1 applic Methylprednisolone (Solu-Medrol) 30 mg IVP DAILY [facility] Last Admin: 07/27/18 16:27 Dose: Not Given Metronidazole (Flagyl) 500 mg PO Q8 [facility]; Protocol Last Admin: 07/27/18 16:25 Dose: 500 mg Pantoprazole Sodium (Protonix Inj) 40 mg IVP DAILY [facility] Last Admin: 07/27/18 08:45 Dose: 40 mg Pyridostigmine [place] (Mestinon Tab) 30 mg PO BID [facility] Last Admin: 07/27/18 16:26 Dose: 30 mg Saccharomyces Boulardii (Florastor) 250 mg PO BID [facility] Last Admin: 07/27/18 16:26 Dose: 250 mg Spironolactone (Aldactone) 25 mg PO DAILY [facility] Last Admin: 07/27/18 12:00 Dose: 25 mg Thiamine HCl (Vitamin B1 Tab) 100 mg NG DAILY [facility] Last Admin: 07/27/18 08:41 Dose: 100 mg - Labs Labs: 07/25/18 04:17 07/25/18 04:17 PT 12.6 Seconds (9.8-13.1) 07/08/18 00:19 INR 1.1 07/08/18 00:19 APTT 42.4 Seconds (25.6-37.1) H 07/21/18 04:25 - Respiratory Exam Respiratory Exam: NORMAL BREATHING PATTERN - Cardiovascular Exam Cardiovascular Exam: REGULAR RHYTHM - GI/Abdominal Exam GI & Abdominal Exam: Normal Bowel Sounds Assessment and Plan - Assessment and Plan (Free Text) Assessment: Deconditioning OOB PT S/P Acute Respiratory Failure Multi lobar pneumonia ( PNA ? CAP? ) Bilateral Pleural effusion S/P thoracentesis Hx COPD [facility] Smoker ICU Pulmonary ID ABX antifungal Hx CHF Afib S/P TAVR LV fxn good Cardiology rate controlled anticoagulation Cellulitis RLE improved ABX Hx ANTHONY/ CKD Metabolic alkalosis improving Nephrology Chronic ETOH ?? HX Abdominal distention improved Colonic ileus ( recurrent ) + FOBT ?? [place] held etiol ?? 2 to L-S surgery pyridostigmine Hx LLE edema cellulitis ?? ecchymosis?? Endovascular consult ??? CT scan done no significant findings Hx Hyperkalemia 2 to Bactrim?? Hold NAMRATA Hx Hypokalemia Hyperkalemia HTN Prediabetes Hx Low back surgery (Severe Spinal Stenosis) Post operative illeus
[2018-07-28] MEDS: Albuterol-Ipratrop 3 mg / 0.5 (3 ml) UD INH SCH ×4 (07:14→19:17)
[2018-07-28] MEDS: Enoxaparin 80 mg Syringe SC SCH ×3 (09:00→21:33)
[2018-07-28] MEDS: Saccharomyces Boulardi 250 mg Cap PO SCH ×2 (09:44→17:23)
[2018-07-28] MEDS: MethylPREDNISolone 40 mg Vial IVP SCH (09:47)
--- NOTE | 2018-07-28 10:43 | CP.PCM.PN ---
Subjective - Date & Time of Evaluation Date of Evaluation: 07/28/18 Time of Evaluation: 10:37 - Subjective Subjective: Seen on rounds in telemetry. Case discussed with PMD and ANP. Chest x-ray from the other day reviewed again. Vital signs remain stable. Significant weight loss noted over the last week. On exam the air entry in the LLL appears better today than yesterday. Scattered rhonchi and occasional medium rales heard bilaterally. No audible wheezing or bronchial breath sounds. Heart sounds are distant, irregular rhythm. Trace dependant edema of both ankles, no cyanosis. IR requested for US guided tap on the left. CT chest w/o contrast to be done after fluid is removed. Orders for fluid specimens have been placed in the EMR. Patient is aware of the plan and is in agreement. Objective - Vital Signs/Intake and Output Vital Signs (last 24 hours): Temp Pulse Resp BP Pulse Ox 98.9 F 79 20 107/62 100 07/28/18 08:31 07/28/18 08:31 07/28/18 08:31 07/28/18 08:31 07/28/18 08:31 - Medications Medications: Current Medications Acetaminophen (Tylenol 650mg/20.3ml Solution Ud) 650 mg NG Q6 PRN PRN Reason: Fever>100.4F Last Admin: 07/17/18 04:05 Dose: 650 mg Acetazolamide (Diamox 250 Mg Tab) 250 mg PO DAILY [facility] Last Admin: 07/28/18 09:42 Dose: 250 mg Albuterol/Ipratropium (Duoneb 3 Mg/0.5 Mg (3 Ml) Ud) 3 ml INH RQID [facility] Last Admin: 07/28/18 07:14 Dose: 3 ml Aspirin (Ecotrin) 81 mg PO DAILY [facility] Last Admin: 07/28/18 09:43 Dose: 81 mg Atorvastatin Calcium (Lipitor) 20 mg PO HS [facility] Last Admin: 07/27/18 21:37 Dose: 20 mg Docusate Sodium (Colace Liquid) 100 mg PO BID [facility] Last Admin: 07/28/18 09:41 Dose: 100 mg Enoxaparin Sodium (Lovenox) 80 mg SC Q12 [facility]; Protocol Last Admin: 07/28/18 09:46 Dose: 80 mg Folic Acid (Folic Acid) 1 mg NG DAILY [facility] Last Admin: 07/28/18 09:44 Dose: 1 mg Furosemide (Lasix) 40 mg IVP DAILY [facility] Last Admin: 07/27/18 08:44 Dose: 40 mg Lactic Acid (Lac-Hydrin 12% Lotion (225 G)) 1 applic TOP TID [facility] Last Admin: 07/28/18 09:44 Dose: 1 applic Methylprednisolone (Solu-Medrol) 30 mg IVP DAILY [facility] Last Admin: 07/28/18 09:47 Dose: 30 mg Metronidazole (Flagyl) 500 mg PO Q8 [facility]; Protocol Last Admin: 07/28/18 09:44 Dose: 500 mg Pyridostigmine [place] (Mestinon Tab) 30 mg PO BID [facility] Last Admin: 07/28/18 09:46 Dose: 30 mg Saccharomyces Boulardii (Florastor) 250 mg PO BID [facility] Last Admin: 07/28/18 09:44 Dose: 250 mg Spironolactone (Aldactone) 25 mg PO DAILY [facility] Last Admin: 07/28/18 09:41 Dose: 25 mg Thiamine HCl (Vitamin B1 Tab) 100 mg NG DAILY [facility] Last Admin: 07/28/18 09:47 Dose: 100 mg - Labs Labs: 07/25/18 04:17 07/25/18 04:17 PT 12.6 Seconds (9.8-13.1) 07/08/18 00:19 INR 1.1 07/08/18 00:19 APTT 42.4 Seconds (25.6-37.1) H 07/21/18 04:25 Assessment and Plan (1) Respiratory failure with hypoxia and hypercapnia Status: Resolved (2) Endotracheally intubated Status: Resolved (3) Pleural effusion, left Status: Resolved (4) Dependent edema Status: Resolved (5) COPD (chronic obstructive pulmonary disease) Status: Chronic (6) Pneumonia Status: Resolved
--- NOTE | 2018-07-28 11:01 | CP.PCM.PN ---
Subjective - Date & Time of Evaluation Date of Evaluation: 07/28/18 Time of Evaluation: 11:00 - Subjective Subjective: Patient awake and conscious not in acute distress Patient feeling much better Objective - Vital Signs/Intake and Output Vital Signs (last 24 hours): Temp Pulse Resp BP Pulse Ox 98.9 F 79 20 107/62 100 07/28/18 08:31 07/28/18 08:31 07/28/18 08:31 07/28/18 08:31 07/28/18 08:31 - Medications Medications: Current Medications Acetaminophen (Tylenol 650mg/20.3ml Solution Ud) 650 mg NG Q6 PRN PRN Reason: Fever>100.4F Last Admin: 07/17/18 04:05 Dose: 650 mg Acetazolamide (Diamox 250 Mg Tab) 250 mg PO DAILY [facility] Last Admin: 07/28/18 09:42 Dose: 250 mg Albuterol/Ipratropium (Duoneb 3 Mg/0.5 Mg (3 Ml) Ud) 3 ml INH RQID [facility] Last Admin: 07/28/18 07:14 Dose: 3 ml Aspirin (Ecotrin) 81 mg PO DAILY [facility] Last Admin: 07/28/18 09:43 Dose: 81 mg Atorvastatin Calcium (Lipitor) 20 mg PO HS [facility] Last Admin: 07/27/18 21:37 Dose: 20 mg Docusate Sodium (Colace Liquid) 100 mg PO BID [facility] Last Admin: 07/28/18 09:41 Dose: 100 mg Enoxaparin Sodium (Lovenox) 80 mg SC Q12 [facility]; Protocol Last Admin: 07/28/18 09:46 Dose: 80 mg Folic Acid (Folic Acid) 1 mg NG DAILY [facility] Last Admin: 07/28/18 09:44 Dose: 1 mg Furosemide (Lasix) 40 mg IVP DAILY [facility] Last Admin: 07/27/18 08:44 Dose: 40 mg Lactic Acid (Lac-Hydrin 12% Lotion (225 G)) 1 applic TOP TID [facility] Last Admin: 07/28/18 09:44 Dose: 1 applic Methylprednisolone (Solu-Medrol) 30 mg IVP DAILY [facility] Last Admin: 07/28/18 09:47 Dose: 30 mg Metronidazole (Flagyl) 500 mg PO Q8 [facility]; Protocol Last Admin: 07/28/18 09:44 Dose: 500 mg Pyridostigmine [place] (Mestinon Tab) 30 mg PO BID [facility] Last Admin: 07/28/18 09:46 Dose: 30 mg Saccharomyces Boulardii (Florastor) 250 mg PO BID [facility] Last Admin: 07/28/18 09:44 Dose: 250 mg Spironolactone (Aldactone) 25 mg PO DAILY [facility] Last Admin: 07/28/18 09:41 Dose: 25 mg Thiamine HCl (Vitamin B1 Tab) 100 mg NG DAILY [facility] Last Admin: 07/28/18 09:47 Dose: 100 mg - Labs Labs: 07/25/18 04:17 07/25/18 04:17 PT 12.6 Seconds (9.8-13.1) 07/08/18 00:19 INR 1.1 07/08/18 00:19 APTT 42.4 Seconds (25.6-37.1) H 07/21/18 04:25 - Constitutional Appears: No Acute Distress - Eye Exam Eye Exam: Conjunctival injection - ENT Exam ENT Exam: Mucous Membranes Moist - Respiratory Exam Respiratory Exam: NORMAL BREATHING PATTERN. absent: Rales - Cardiovascular Exam Cardiovascular Exam: absent: Gallop, JVD, Rubs - GI/Abdominal Exam GI & Abdominal Exam: Soft, Normal Bowel Sounds - Extremities Exam Extremities Exam: absent: Calf Tenderness - Back Exam Back Exam: absent: CVA tenderness (L), CVA tenderness (R) - Neurological Exam Neurological Exam: Alert - Psychiatric Exam Psychiatric exam: Normal Affect - Skin Skin Exam: absent: Cyanosis Assessment and Plan (1) Cellulitis of right lower leg Status: Resolved (2) Pneumonia Status: Resolved (3) Respiratory failure with hypoxia and hypercapnia Status: Resolved (4) Sepsis Status: Resolved - Assessment and Plan (Free Text) Assessment: /P acute respi failure extubated PNA, CHF exacerbation ANTHONY improved HTN, COPD CHF s/p TAVR Pleural effusion Recommendation awake doing much better Metabolic alkalosis worsening CO2 going up 34, he was started on Diamox
--- NOTE | 2018-07-28 11:53 | CP.PCM.PN ---
Subjective - Date & Time of Evaluation Date of Evaluation: 07/28/18 Time of Evaluation: 11:45 - Subjective Subjective: resting comfortably , going to IR for pleural tap. Consulted for etiology of recurrent pleural effusions. Objective - Vital Signs/Intake and Output Vital Signs (last 24 hours): Temp Pulse Resp BP Pulse Ox 98.9 F 79 20 107/62 100 07/28/18 08:31 07/28/18 08:31 07/28/18 08:31 07/28/18 08:31 07/28/18 08:31 - Medications Medications: Current Medications Acetaminophen (Tylenol 650mg/20.3ml Solution Ud) 650 mg NG Q6 PRN PRN Reason: Fever>100.4F Last Admin: 07/17/18 04:05 Dose: 650 mg Acetazolamide (Diamox 250 Mg Tab) 250 mg PO DAILY [facility] Last Admin: 07/28/18 09:42 Dose: 250 mg Albuterol/Ipratropium (Duoneb 3 Mg/0.5 Mg (3 Ml) Ud) 3 ml INH RQID [facility] Last Admin: 07/28/18 11:24 Dose: 3 ml Aspirin (Ecotrin) 81 mg PO DAILY [facility] Last Admin: 07/28/18 09:43 Dose: 81 mg Atorvastatin Calcium (Lipitor) 20 mg PO HS [facility] Last Admin: 07/27/18 21:37 Dose: 20 mg Docusate Sodium (Colace Liquid) 100 mg PO BID [facility] Last Admin: 07/28/18 09:41 Dose: 100 mg Enoxaparin Sodium (Lovenox) 80 mg SC Q12 [facility]; Protocol Last Admin: 07/28/18 09:46 Dose: 80 mg Folic Acid (Folic Acid) 1 mg NG DAILY [facility] Last Admin: 07/28/18 09:44 Dose: 1 mg Furosemide (Lasix) 40 mg IVP DAILY [facility] Last Admin: 07/27/18 08:44 Dose: 40 mg Lactic Acid (Lac-Hydrin 12% Lotion (225 G)) 1 applic TOP TID [facility] Last Admin: 07/28/18 09:44 Dose: 1 applic Methylprednisolone (Solu-Medrol) 30 mg IVP DAILY [facility] Last Admin: 07/28/18 09:47 Dose: 30 mg Metronidazole (Flagyl) 500 mg PO Q8 [facility]; Protocol Last Admin: 07/28/18 09:44 Dose: 500 mg Pyridostigmine [place] (Mestinon Tab) 30 mg PO BID [facility] Last Admin: 07/28/18 09:46 Dose: 30 mg Saccharomyces Boulardii (Florastor) 250 mg PO BID [facility] Last Admin: 07/28/18 09:44 Dose: 250 mg Spironolactone (Aldactone) 25 mg PO DAILY [facility] Last Admin: 07/28/18 09:41 Dose: 25 mg Thiamine HCl (Vitamin B1 Tab) 100 mg NG DAILY [facility] Last Admin: 07/28/18 09:47 Dose: 100 mg - Labs Labs: 07/25/18 04:17 07/25/18 04:17 PT 12.6 Seconds (9.8-13.1) 07/08/18 00:19 INR 1.1 07/08/18 00:19 APTT 42.4 Seconds (25.6-37.1) H 07/21/18 04:25 - Respiratory Exam Respiratory Exam: Decreased Breath Sounds - Cardiovascular Exam Cardiovascular Exam: Irregular Rhythm - GI/Abdominal Exam GI & Abdominal Exam: Normal Bowel Sounds - Extremities Exam Extremities Exam: Pedal Edema Assessment and Plan - Assessment and Plan (Free Text) Assessment: Recurrent pleural effusions/ Differential: LV function is normal by echo in on previous admission, TAVR function is normal and PAP is normal at 37mmHG Differential includes : Infectious , studies suggestive of infection TP / LDH analysis not definitive for exudate vs transudate Cirrhosis is possiblity given rapid accumulation despite diuresis , elevated Bun , stable pulmonary status however no free fluid by CT abdomen Cardiac causes such as pulmonary htn/ RV failure/ constrictive pericarditis to be assessed in repeat echo Check TSH Recommend: Will repeat echo and with special attention to RV function, TR velocity PAP if necessary using echo contrast Pending results will dictate further direction of w/u for effusions
[2018-07-28] MEDS ORDERED: Lidocaine Hydrochloride 1% 10 ML ONE (12:15)
--- NOTE | 2018-07-28 12:25 | PCM.SURG1 ---
Surgeon's Initial Post Op Note - Surgeon's Notes Surgeon: Guerrero Anna MD Reject Opener And Filler: NONE Type of Anesthesia: Local Pre-Operative Diagnosis: Left pleural effusion Operative Findings: US showed small effusion Post-Operative Diagnosis: Left pleural effusion Operation Performed: US guided left thoracentesis Specimen/Specimens Removed: 300 cc of sadia colored fluid Estimated Blood Loss: EBL {In ML}: 0 Blood Products Given: N/A Drains Used: No Drains Post-Op Condition: Fair Date of Surgery/Procedure: 07/28/18 Time of Surgery/Procedure: 12:20
[2018-07-28 13:17] LABS: BODY FLUID TYPE PLEURAL/THORACENTESI
[2018-07-28 13:35] LABS: TOTAL PROTEIN,BODY FLUID 3.2 g/dL (NONE ESTABLISHED)
[2018-07-28 13:45] LABS: BF GROSS APPEARANCE SL CLOUDY (CLEAR)
--- NOTE | 2018-07-28 14:19 | CT ---
Date of service: 07/28/2018 PROCEDURE: CT Chest without contrast HISTORY: eval post thoracentesis COMPARISON: CT chest without contrast 07/17/2018 TECHNIQUE: Contiguous axial images were obtained through the chest without intravenous contrast enhancement. Sagittal and coronal reconstructions were performed. Radiation dose: Total exam DLP = 494.0 mGy-cm. This CT exam was performed using one or more of the following dose reduction techniques: Automated exposure control, adjustment of the mA and/or kV according to patient size, and/or use of iterative reconstruction technique. FINDINGS: LUNGS: There is marked interval decrease in the size of the prior bilateral dependent pleural effusions. Small residual posterior dependent right pleural effusion is present. A minimal left pleural effusion is present. No appreciable right basal compressive atelectasis noted. There is left basal compressive atelectasis and or infiltrate still present. Continued surveillance to exclude any concomitant underlying pathology here is recommended. Some left posterior calcified pleural plaques consistent with prior asbestosis exposure noted. There is also some right hemidiaphragmatic calcified plaque unchanged. 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 No definite interval change allowing for differences in technique are noted. An aortic valvular prosthesis and or stent apparent. Heart is enlarged as before. The slight interval increased posterior dependent inferior pericardial recess of effusion. More significant appearing pericardial effusion suggested. No suspect pulmonary vascular gross congestion noted. Calcified left mediastinal lymph nodes re-noted. There is presence of aortic atherosclerotic calcification and mural plaque on cross sectional studies. Coronary artery calcifications also noted. Prior nasogastric tube has been removed from the esophagus. PLEURA: As above. No pneumothorax seen BONES: No fracture. No destructive lesion. Thoracic spondylosis. UPPER ABDOMEN: There is interval increased viscous bile gaseous distension perceived on the navigation teacher current image the most cephalad horizontally oriented gaseous collection is that of the stomach with the increased soft tissue circumferential thickening suggested in the region of the pyloric channel this is not appreciated and or less conspicuous on the prior study. There is greater distention in the gastric antrum on this exam compared the prior 07/17/2018 study. An inferior to this on the current study there is interval gaseous distension in an apparent transverse colonic loop apparent. However the haustral markings are difficult to perceive on this exam. In the left lateral splenic margin there is a superficial 1 x 2 cm rimmed calcification which is unchanged per the prior study-prior post traumatic etiology hemorrhage is 1 consideration. Infectious/inflammatory etiology likely chronic in nature is another. Correlate clinically. OTHER FINDINGS: None. IMPRESSION: Interval bilateral thoracentesis with interval decreased bilateral pleural effusions. Minimal persistent left basal consolidation-this is probably in large part compressive atelectasis. However concomitant underlying infiltrate or other concomitant left basal pathology needs to be considered incomplete follow-up to its resolution is advised. No pneumothorax seen. This exam there is interval increased gaseous distension seen in the gastric antrum and also apparently in the transverse colon. There is interval perceived soft tissue circumferential thickening on the current study in the region of the gastric pylorus of unclear significance. This is less conspicuous than the CT 07/17/2018 study. Clinical correlation and follow-up is advised. Other findings as above.
--- NOTE | 2018-07-28 14:45 | CP.PCM.PN ---
Subjective - Date & Time of Evaluation Date of Evaluation: 07/28/18 Time of Evaluation: 08:00 - Subjective Subjective: s/p thoracentesis tolerated well denies fever chest pain some diarrhea still Objective - Vital Signs/Intake and Output Vital Signs (last 24 hours): Temp Pulse Resp BP Pulse Ox 97.8 F 92 H 18 97/50 L 100 07/28/18 12:30 07/28/18 12:30 07/28/18 12:30 07/28/18 12:30 07/28/18 12:30 - Medications Medications: Current Medications Acetaminophen (Tylenol 650mg/20.3ml Solution Ud) 650 mg NG Q6 PRN PRN Reason: Fever>100.4F Last Admin: 07/17/18 04:05 Dose: 650 mg Acetazolamide (Diamox 250 Mg Tab) 250 mg PO DAILY [facility] Last Admin: 07/28/18 09:42 Dose: 250 mg Albuterol/Ipratropium (Duoneb 3 Mg/0.5 Mg (3 Ml) Ud) 3 ml INH RQID [facility] Last Admin: 07/28/18 11:24 Dose: 3 ml Aspirin (Ecotrin) 81 mg PO DAILY [facility] Last Admin: 07/28/18 09:43 Dose: 81 mg Atorvastatin Calcium (Lipitor) 20 mg PO HS [facility] Last Admin: 07/27/18 21:37 Dose: 20 mg Docusate Sodium (Colace Liquid) 100 mg PO BID [facility] Last Admin: 07/28/18 09:41 Dose: 100 mg Enoxaparin Sodium (Lovenox) 80 mg SC Q12 [facility]; Protocol Last Admin: 07/28/18 09:46 Dose: 80 mg Folic Acid (Folic Acid) 1 mg NG DAILY [facility] Last Admin: 07/28/18 09:44 Dose: 1 mg Furosemide (Lasix) 40 mg IVP DAILY [facility] Last Admin: 07/27/18 08:44 Dose: 40 mg Lactic Acid (Lac-Hydrin 12% Lotion (225 G)) 1 applic TOP TID [facility] Last Admin: 07/28/18 13:42 Dose: 1 applic Methylprednisolone (Solu-Medrol) 30 mg IVP DAILY [facility] Last Admin: 07/28/18 09:47 Dose: 30 mg Metronidazole (Flagyl) 500 mg PO Q8 [facility]; Protocol Last Admin: 07/28/18 09:44 Dose: 500 mg Pyridostigmine [place] (Mestinon Tab) 30 mg PO BID [facility] Last Admin: 07/28/18 09:46 Dose: 30 mg Saccharomyces Boulardii (Florastor) 250 mg PO BID [facility] Last Admin: 07/28/18 09:44 Dose: 250 mg Spironolactone (Aldactone) 25 mg PO DAILY [facility] Last Admin: 07/28/18 09:41 Dose: 25 mg Thiamine HCl (Vitamin B1 Tab) 100 mg NG DAILY [facility] Last Admin: 07/28/18 09:47 Dose: 100 mg - Labs Labs: 07/25/18 04:17 07/25/18 04:17 PT 12.6 Seconds (9.8-13.1) 07/08/18 00:19 INR 1.1 07/08/18 00:19 APTT 42.4 Seconds (25.6-37.1) H 07/21/18 04:25 - Constitutional Appears: Non-toxic, Chronically Ill - Head Exam Head Exam: NORMOCEPHALIC - Eye Exam Eye Exam: absent: Scleral icterus - ENT Exam ENT Exam: Mucous Membranes Dry - Neck Exam Neck Exam: absent: Lymphadenopathy - Respiratory Exam Respiratory Exam: Decreased Breath Sounds, Rhonchi - Cardiovascular Exam Cardiovascular Exam: REGULAR RHYTHM, +S1, +S2 - GI/Abdominal Exam GI & Abdominal Exam: Distended, Soft. absent: Tenderness - Rectal Exam Rectal Exam: Deferred - Exam Exam: NORMAL INSPECTION Assessment and Plan (1) Cellulitis of right lower leg Status: Resolved (2) Atrial fibrillation Status: Chronic (3) CHF (congestive heart failure) Status: Chronic (4) Endotracheally intubated Status: Resolved (5) Respiratory distress Status: Acute (6) Respiratory failure with hypoxia and hypercapnia Status: Resolved (7) Dependent edema Status: Resolved (8) Pleural effusion, left Status: Resolved (9) Pneumonia Status: Resolved (10) COPD (chronic obstructive pulmonary disease) Status: Chronic (11) Sepsis Status: Resolved - Assessment and Plan (Free Text) Assessment: cont rx as ordered may need pleurodesis
[2018-07-28 15:01] LABS: BODY FLUID MONO/MACROPHAGE 32 % (0-0); BODY FLUID TOTAL COUNT 100 (0-0)
--- NOTE | 2018-07-28 17:38 | CARD ---
APPROVED REPORT Date of service: 07/28/2018 EXAM: Two-dimensional and M-mode echocardiogram with Doppler and color Doppler. Other Information Quality : AverageRhythm : NSR INDICATION COPD RVF,PAP 2D DIMENSIONS IVSd0.75 (0.7-1.1cm)LVDd5.61 (3.9-5.9cm) LVOT Diameter2.49 (1.8-2.4cm)PWd1.24 (0.7-1.1cm) IVSs1.17 (0.8-1.2cm)LVDs5.32 (2.5-4.0cm) FS (%) 5.1 %PWs1.93 (0.8-1.2cm) M-Mode DIMENSIONS Left Atrium (MM)5.55 (2.5-4.0cm)Aortic Root2.65 (2.2-3.7cm) Aortic Cusp Exc.1.54 (1.5-2.0cm) Aortic Valve AoV Peak Nvfthryd717.6cm/sAoV VTI34.8cmAO Peak GR.15mmHg LVOT Peak Qqlntybf92.8cm/sLVOT VTI14.23cmAO Mean GR.8mmHg PAT (VMAX)1.11gp5XQZ (VTI)1.06cm2 Mitral Valve E/A ratio0.0 TDI E/Lateral E'0.0E/Medial E'0.0 Tricuspid Valve TR Peak Owobucfv452hr/sRAP [id number] Peak Gr.23mmHg [id number] LEFT VENTRICLE The left ventricle is normal size. There is normal left ventricular wall thickness. The left ventricular systolic function is normal. The estimated ejection fraction is 50-55% No regional wall motion abnormalities noted.. The left ventricular diastolic function cannot be assessed due to underlying atrial fibrillation. No left ventricle thrombus noted on this study. There is no ventricular septal defect visualized. There is no left ventricular aneurysm. There is no mass noted in the left ventricle. RIGHT VENTRICLE The right ventricle is mildly dilated. There is normal right ventricular wall thickness. The right ventricular systolic function is normal. ATRIA The left atrium is moderate to severely dilated. The right atrium size is normal. The interatrial septum is intact with no evidence for an atrial septal defect. AORTIC VALVE The aortic valve is not well visualized. Aortic root is calcified. No aortic regurgitation is present. There is no aortic valvular stenosis. Minimally elevated velocity. There is aortic valve sclerosis with no significant stenosis. There is no aortic valvular vegetation. MITRAL VALVE The mitral valve is normal in structure. There is no evidence of mitral valve prolapse. There is no mitral valve stenosis. There is mild mitral valve regurgitation noted. TRICUSPID VALVE The tricuspid valve is normal in structure. There is mild tricuspid valve regurgitation noted. RVSP is calculated at 28 mm Hg. There is no tricuspid valve prolapse or vegetation. There is no tricuspid valve stenosis. PULMONIC VALVE The pulmonary valve is normal in structure. There is mild pulmonic valvular regurgitation. There is no pulmonic valvular stenosis. GREAT VESSELS The aortic root is normal in size. The ascending aorta is normal in size. The pulmonary artery is normal. The IVC is normal in size and collapses >50% with inspiration. PERICARDIAL EFFUSION There is no pericardial effusion. There is no pleural effusion. <Conclusion> The estimated ejection fraction is 50-55% The left ventricular diastolic function cannot be assessed due to underlying atrial fibrillation. The left atrium is moderate to severely dilated. The aortic valve is not well visualized. Aortic root is calcified. There is no aortic valvular stenosis. Minimally elevated velocity. There is aortic valve sclerosis with no significant stenosis. The right ventricle is mildly dilated. There is mild tricuspid valve regurgitation noted. RVSP is calculated at 28 mm Hg.
--- NOTE | 2018-07-28 20:19 | CP.PCM.PN ---
Subjective - Date & Time of Evaluation Date of Evaluation: 07/28/18 Time of Evaluation: 22:22 - Subjective Subjective: IR thoracentesis done Extended discussion with consultants Objective - Vital Signs/Intake and Output Vital Signs (last 24 hours): Temp Pulse Resp BP Pulse Ox 98.8 F 90 17 109/63 100 07/28/18 19:57 07/28/18 19:57 07/28/18 19:57 07/28/18 19:57 07/28/18 19:57 - Medications Medications: Current Medications Acetaminophen (Tylenol 650mg/20.3ml Solution Ud) 650 mg NG Q6 PRN PRN Reason: Fever>100.4F Last Admin: 07/17/18 04:05 Dose: 650 mg Acetazolamide (Diamox 250 Mg Tab) 250 mg PO DAILY [facility] Last Admin: 07/28/18 09:42 Dose: 250 mg Albuterol/Ipratropium (Duoneb 3 Mg/0.5 Mg (3 Ml) Ud) 3 ml INH RQID [facility] Last Admin: 07/28/18 19:17 Dose: 3 ml Aspirin (Ecotrin) 81 mg PO DAILY [facility] Last Admin: 07/28/18 09:43 Dose: 81 mg Atorvastatin Calcium (Lipitor) 20 mg PO HS [facility] Last Admin: 07/27/18 21:37 Dose: 20 mg Docusate Sodium (Colace Liquid) 100 mg PO BID [facility] Last Admin: 07/28/18 17:20 Dose: 100 mg Enoxaparin Sodium (Lovenox) 80 mg SC Q12 [facility]; Protocol Last Admin: 07/28/18 09:00 Dose: Not Given Folic Acid (Folic Acid) 1 mg NG DAILY [facility] Last Admin: 07/28/18 09:44 Dose: 1 mg Furosemide (Lasix) 40 mg IVP DAILY [facility] Last Admin: 07/28/18 17:24 Dose: 40 mg Lactic Acid (Lac-Hydrin 12% Lotion (225 G)) 1 applic TOP TID [facility] Last Admin: 07/28/18 17:23 Dose: 1 applic Methylprednisolone (Solu-Medrol) 30 mg IVP DAILY [facility] Last Admin: 07/28/18 09:47 Dose: 30 mg Metronidazole (Flagyl) 500 mg PO Q8 [facility]; Protocol Last Admin: 07/28/18 17:22 Dose: 500 mg Pyridostigmine [place] (Mestinon Tab) 30 mg PO BID [facility] Last Admin: 07/28/18 17:26 Dose: 30 mg Saccharomyces Boulardii (Florastor) 250 mg PO BID [facility] Last Admin: 07/28/18 17:23 Dose: 250 mg Spironolactone (Aldactone) 25 mg PO DAILY [facility] Last Admin: 07/28/18 09:41 Dose: 25 mg Thiamine HCl (Vitamin B1 Tab) 100 mg NG DAILY [facility] Last Admin: 07/28/18 09:47 Dose: 100 mg - Labs Labs: 07/25/18 04:17 07/25/18 04:17 PT 12.6 Seconds (9.8-13.1) 07/08/18 00:19 INR 1.1 07/08/18 00:19 APTT 42.4 Seconds (25.6-37.1) H 07/21/18 04:25 - Respiratory Exam Respiratory Exam: NORMAL BREATHING PATTERN - Cardiovascular Exam Cardiovascular Exam: REGULAR RHYTHM - GI/Abdominal Exam GI & Abdominal Exam: Normal Bowel Sounds Assessment and Plan - Assessment and Plan (Free Text) Assessment: Recurrent Pleural effusion etiol? IR thoracentesis done Repeat Echo Deconditioning OOB PT S/P Acute Respiratory Failure Multi lobar pneumonia ( PNA ? CAP? ) Bilateral Pleural effusion S/P thoracentesis Hx COPD COSA Smoker ICU Pulmonary ID ABX antifungal Hx CHF Afib S/P TAVR LV fxn good Cardiology rate controlled anticoagulation Cellulitis RLE improved ABX Hx ANTHONY/ CKD Metabolic alkalosis improving Nephrology Chronic ETOH ?? HX Abdominal distention improved Colonic ileus ( recurrent ) + FOBT ?? [place]oquis held etiol ?? 2 to L-S surgery pyridostigmine Hx LLE edema cellulitis ?? ecchymosis?? Endovascular consult ??? CT scan done no significant findings Hx Hyperkalemia 2 to Bactrim?? Hold NAMRATA Hx Hypokalemia Hyperkalemia HTN Prediabetes Hx Low back surgery (Severe Spinal Stenosis) Post operative illeus
[2018-07-29] MEDS: Albuterol-Ipratrop 3 mg / 0.5 (3 ml) UD INH SCH ×4 (07:57→19:26)
--- NOTE | 2018-07-29 09:00 | CP.PCM.PN ---
Subjective - Date & Time of Evaluation Date of Evaluation: 07/29/18 Time of Evaluation: 08:59 - Subjective Subjective: Patient sitting up in bed and he is having his breakfast awake and conscious. Vital signs stable. Objective - Vital Signs/Intake and Output Vital Signs (last 24 hours): Temp Pulse Resp BP Pulse Ox 97.6 F 94 H 20 100/67 100 07/29/18 08:25 07/29/18 08:25 07/29/18 08:25 07/29/18 08:25 07/29/18 08:25 - Medications Medications: Current Medications Acetaminophen (Tylenol 650mg/20.3ml Solution Ud) 650 mg NG Q6 PRN PRN Reason: Fever>100.4F Last Admin: 07/17/18 04:05 Dose: 650 mg Acetazolamide (Diamox 250 Mg Tab) 250 mg PO DAILY [facility] Last Admin: 07/28/18 09:42 Dose: 250 mg Albuterol/Ipratropium (Duoneb 3 Mg/0.5 Mg (3 Ml) Ud) 3 ml INH RQID [facility] Last Admin: 07/29/18 07:57 Dose: 3 ml Aspirin (Ecotrin) 81 mg PO DAILY [facility] Last Admin: 07/28/18 09:43 Dose: 81 mg Atorvastatin Calcium (Lipitor) 20 mg PO HS [facility] Last Admin: 07/27/18 21:37 Dose: 20 mg Docusate Sodium (Colace Liquid) 100 mg PO BID [facility] Last Admin: 07/28/18 17:20 Dose: 100 mg Enoxaparin Sodium (Lovenox) 80 mg SC Q12 [facility]; Protocol Last Admin: 07/28/18 21:33 Dose: 80 mg Folic Acid (Folic Acid) 1 mg NG DAILY [facility] Last Admin: 07/28/18 09:44 Dose: 1 mg Furosemide (Lasix) 40 mg IVP DAILY [facility] Last Admin: 07/28/18 17:24 Dose: 40 mg Lactic Acid (Lac-Hydrin 12% Lotion (225 G)) 1 applic TOP TID [facility] Last Admin: 07/28/18 17:23 Dose: 1 applic Methylprednisolone (Solu-Medrol) 30 mg IVP DAILY [facility] Last Admin: 07/28/18 09:47 Dose: 30 mg Metronidazole (Flagyl) 500 mg PO Q8 [facility]; Protocol Last Admin: 07/29/18 01:08 Dose: 500 mg Pyridostigmine [place] (Mestinon Tab) 30 mg PO BID [facility] Last Admin: 07/28/18 17:26 Dose: 30 mg Saccharomyces Boulardii (Florastor) 250 mg PO BID [facility] Last Admin: 07/28/18 17:23 Dose: 250 mg Spironolactone (Aldactone) 25 mg PO DAILY [facility] Last Admin: 07/28/18 09:41 Dose: 25 mg Thiamine HCl (Vitamin B1 Tab) 100 mg NG DAILY [facility] Last Admin: 07/28/18 09:47 Dose: 100 mg - Labs Labs: 07/25/18 04:17 07/25/18 04:17 PT 12.6 Seconds (9.8-13.1) 07/08/18 00:19 INR 1.1 07/08/18 00:19 APTT 42.4 Seconds (25.6-37.1) H 07/21/18 04:25 - Constitutional Appears: No Acute Distress - Eye Exam Eye Exam: Conjunctival injection - ENT Exam ENT Exam: Mucous Membranes Moist - Respiratory Exam Respiratory Exam: NORMAL BREATHING PATTERN. absent: Chest Wall Tenderness - Cardiovascular Exam Cardiovascular Exam: absent: Gallop, JVD, Rubs - GI/Abdominal Exam GI & Abdominal Exam: Soft, Normal Bowel Sounds - Extremities Exam Extremities Exam: absent: Calf Tenderness - Back Exam Back Exam: absent: CVA tenderness (L), CVA tenderness (R) - Neurological Exam Neurological Exam: Alert - Psychiatric Exam Psychiatric exam: Normal Affect - Skin Skin Exam: absent: Cyanosis Assessment and Plan (1) Cellulitis of right lower leg Status: Resolved (2) Pneumonia Status: Resolved (3) Respiratory failure with hypoxia and hypercapnia Status: Resolved (4) Sepsis Status: Resolved - Assessment and Plan (Free Text) Assessment: S/P acute respi failure extubated PNA, CHF exacerbation ANTHONY recovered HTN, COPD CHF s/p TAVR Pleural effusion Recommendation awake doing much better Metabolic alkalosis stable with CO2 around 34. Diamox started
[2018-07-29] MEDS: Saccharomyces Boulardi 250 mg Cap PO SCH ×2 (09:01→16:47)
[2018-07-29] MEDS: Enoxaparin 80 mg Syringe SC SCH (09:02)
[2018-07-29] MEDS: MethylPREDNISolone 40 mg Vial IVP SCH (09:03)
--- NOTE | 2018-07-29 11:38 | CP.PCM.PN ---
Subjective - Date & Time of Evaluation Date of Evaluation: 07/29/18 Time of Evaluation: 11:35 - Subjective Subjective: Thoracentesis yesterday on the left. Fluid parameters are transudative by protein and LDH. Culture is negative thus far and cytology is pending. Follow up CT chest does show an area of residual basal atelectsis on the left. Will need to follow this up, and a repeat bronchoscopy may be necessary. Objective - Vital Signs/Intake and Output Vital Signs (last 24 hours): Temp Pulse Resp BP Pulse Ox 97.6 F 94 H 20 100/67 100 07/29/18 08:25 07/29/18 08:25 07/29/18 08:25 07/29/18 08:25 07/29/18 08:25 - Medications Medications: Current Medications Acetaminophen (Tylenol 650mg/20.3ml Solution Ud) 650 mg NG Q6 PRN PRN Reason: Fever>100.4F Last Admin: 07/17/18 04:05 Dose: 650 mg Acetazolamide (Diamox 250 Mg Tab) 250 mg PO DAILY [facility] Last Admin: 07/28/18 09:42 Dose: 250 mg Albuterol/Ipratropium (Duoneb 3 Mg/0.5 Mg (3 Ml) Ud) 3 ml INH RQID [facility] Last Admin: 07/29/18 11:08 Dose: 3 ml Aspirin (Ecotrin) 81 mg PO DAILY [facility] Last Admin: 07/29/18 09:01 Dose: 81 mg Atorvastatin Calcium (Lipitor) 20 mg PO HS [facility] Last Admin: 07/27/18 21:37 Dose: 20 mg Docusate Sodium (Colace Liquid) 100 mg PO BID [facility] Last Admin: 07/29/18 08:50 Dose: 100 mg Folic Acid (Folic Acid) 1 mg NG DAILY [facility] Last Admin: 07/29/18 09:02 Dose: 1 mg Furosemide (Lasix) 40 mg IVP DAILY [facility] Last Admin: 07/28/18 17:24 Dose: 40 mg Lactic Acid (Lac-Hydrin 12% Lotion (225 G)) 1 applic TOP TID [facility] Last Admin: 07/29/18 09:02 Dose: 1 applic Methylprednisolone (Solu-Medrol) 30 mg IVP DAILY [facility] Last Admin: 07/29/18 09:03 Dose: 30 mg Metronidazole (Flagyl) 500 mg PO Q8 [facility]; Protocol Last Admin: 07/29/18 09:01 Dose: 500 mg Pyridostigmine [place] (Mestinon Tab) 30 mg PO BID [facility] Last Admin: 07/29/18 09:03 Dose: 30 mg Saccharomyces Boulardii (Florastor) 250 mg PO BID [facility] Last Admin: 07/29/18 09:01 Dose: 250 mg Spironolactone (Aldactone) 25 mg PO DAILY [facility] Last Admin: 07/29/18 08:50 Dose: 25 mg Thiamine HCl (Vitamin B1 Tab) 100 mg NG DAILY [facility] Last Admin: 07/29/18 09:04 Dose: 100 mg - Labs Labs: 07/25/18 04:17 07/25/18 04:17 PT 12.6 Seconds (9.8-13.1) 07/08/18 00:19 INR 1.1 07/08/18 00:19 APTT 42.4 Seconds (25.6-37.1) H 07/21/18 04:25 Assessment and Plan (1) Respiratory failure with hypoxia and hypercapnia Status: Resolved (2) Endotracheally intubated Status: Resolved (3) Pleural effusion, left Status: Resolved (4) Dependent edema Status: Resolved (5) COPD (chronic obstructive pulmonary disease) Status: Chronic (6) Pneumonia Status: Resolved
--- NOTE | 2018-07-29 11:43 | CP.PCM.PN ---
Subjective - Date & Time of Evaluation Date of Evaluation: 07/29/18 Time of Evaluation: 11:41 - Subjective Subjective: Echo reviewed no evidence of pulmonary hypertension , PAP is normal. RV function is normal. There is no pericardial effusion , diastolic inflow is restrictive , pericardium does not appear thickened LV function is normal, TAVR function is normal No clear etiology for recurrent effusions from cardiac standpoint Objective - Vital Signs/Intake and Output Vital Signs (last 24 hours): Temp Pulse Resp BP Pulse Ox 97.6 F 94 H 20 100/67 100 07/29/18 08:25 07/29/18 08:25 07/29/18 08:25 07/29/18 08:25 07/29/18 08:25 - Medications Medications: Current Medications Acetaminophen (Tylenol 650mg/20.3ml Solution Ud) 650 mg NG Q6 PRN PRN Reason: Fever>100.4F Last Admin: 07/17/18 04:05 Dose: 650 mg Acetazolamide (Diamox 250 Mg Tab) 250 mg PO DAILY [facility] Last Admin: 07/28/18 09:42 Dose: 250 mg Albuterol/Ipratropium (Duoneb 3 Mg/0.5 Mg (3 Ml) Ud) 3 ml INH RQID [facility] Last Admin: 07/29/18 11:08 Dose: 3 ml Aspirin (Ecotrin) 81 mg PO DAILY [facility] Last Admin: 07/29/18 09:01 Dose: 81 mg Atorvastatin Calcium (Lipitor) 20 mg PO HS [facility] Last Admin: 07/27/18 21:37 Dose: 20 mg Docusate Sodium (Colace Liquid) 100 mg PO BID [facility] Last Admin: 07/29/18 08:50 Dose: 100 mg Folic Acid (Folic Acid) 1 mg NG DAILY [facility] Last Admin: 07/29/18 09:02 Dose: 1 mg Furosemide (Lasix) 40 mg IVP DAILY [facility] Last Admin: 07/28/18 17:24 Dose: 40 mg Lactic Acid (Lac-Hydrin 12% Lotion (225 G)) 1 applic TOP TID [facility] Last Admin: 07/29/18 09:02 Dose: 1 applic Methylprednisolone (Solu-Medrol) 30 mg IVP DAILY [facility] Last Admin: 07/29/18 09:03 Dose: 30 mg Metronidazole (Flagyl) 500 mg PO Q8 [facility]; Protocol Last Admin: 07/29/18 09:01 Dose: 500 mg Pyridostigmine [place] (Mestinon Tab) 30 mg PO BID [facility] Last Admin: 07/29/18 09:03 Dose: 30 mg Saccharomyces Boulardii (Florastor) 250 mg PO BID [facility] Last Admin: 07/29/18 09:01 Dose: 250 mg Spironolactone (Aldactone) 25 mg PO DAILY [facility] Last Admin: 07/29/18 08:50 Dose: 25 mg Thiamine HCl (Vitamin B1 Tab) 100 mg NG DAILY [facility] Last Admin: 07/29/18 09:04 Dose: 100 mg - Labs Labs: 07/25/18 04:17 07/25/18 04:17 PT 12.6 Seconds (9.8-13.1) 07/08/18 00:19 INR 1.1 07/08/18 00:19 APTT 42.4 Seconds (25.6-37.1) H 07/21/18 04:25
--- NOTE | 2018-07-29 16:17 | CP.PCM.PN ---
Subjective - Date & Time of Evaluation Date of Evaluation: 07/29/18 Time of Evaluation: 08:00 - Subjective Subjective: awake alert sitting on edge of bed in NAD nearby denies fever or chills has 2 BM's somewhat formed s/p thoracentesis yesterday Objective - Vital Signs/Intake and Output Vital Signs (last 24 hours): Temp Pulse Resp BP Pulse Ox 97.4 F L 73 16 112/68 97 07/29/18 15:44 07/29/18 16:02 07/29/18 15:44 07/29/18 15:44 07/29/18 16:02 - Medications Medications: Current Medications Acetaminophen (Tylenol 650mg/20.3ml Solution Ud) 650 mg NG Q6 PRN PRN Reason: Fever>100.4F Last Admin: 07/17/18 04:05 Dose: 650 mg Acetazolamide (Diamox 250 Mg Tab) 250 mg PO DAILY [facility] Last Admin: 07/28/18 09:42 Dose: 250 mg Albuterol/Ipratropium (Duoneb 3 Mg/0.5 Mg (3 Ml) Ud) 3 ml INH RQID [facility] Last Admin: 07/29/18 15:22 Dose: 3 ml Aspirin (Ecotrin) 81 mg PO DAILY [facility] Last Admin: 07/29/18 09:01 Dose: 81 mg Atorvastatin Calcium (Lipitor) 20 mg PO HS [facility] Last Admin: 07/27/18 21:37 Dose: 20 mg Docusate Sodium (Colace Liquid) 100 mg PO BID [facility] Last Admin: 07/29/18 08:50 Dose: 100 mg Folic Acid (Folic Acid) 1 mg NG DAILY [facility] Last Admin: 07/29/18 09:02 Dose: 1 mg Furosemide (Lasix) 40 mg IVP DAILY [facility] Last Admin: 07/28/18 17:24 Dose: 40 mg Lactic Acid (Lac-Hydrin 12% Lotion (225 G)) 1 applic TOP TID [facility] Last Admin: 07/29/18 12:08 Dose: 1 applic Methylprednisolone (Solu-Medrol) 30 mg IVP DAILY [facility] Last Admin: 07/29/18 09:03 Dose: 30 mg Metronidazole (Flagyl) 500 mg PO Q8 [facility]; Protocol Last Admin: 07/29/18 09:01 Dose: 500 mg Pyridostigmine [place] (Mestinon Tab) 30 mg PO BID [facility] Last Admin: 07/29/18 09:03 Dose: 30 mg Saccharomyces Boulardii (Florastor) 250 mg PO BID [facility] Last Admin: 07/29/18 09:01 Dose: 250 mg Spironolactone (Aldactone) 25 mg PO DAILY [facility] Last Admin: 07/29/18 08:50 Dose: 25 mg Thiamine HCl (Vitamin B1 Tab) 100 mg NG DAILY [facility] Last Admin: 07/29/18 09:04 Dose: 100 mg - Labs Labs: 07/25/18 04:17 07/25/18 04:17 PT 12.6 Seconds (9.8-13.1) 07/08/18 00:19 INR 1.1 07/08/18 00:19 APTT 42.4 Seconds (25.6-37.1) H 07/21/18 04:25 - Constitutional Appears: Non-toxic, No Acute Distress, Chronically Ill - Head Exam Head Exam: NORMOCEPHALIC - Eye Exam Eye Exam: absent: Scleral icterus - ENT Exam ENT Exam: Mucous Membranes Dry - Neck Exam Neck Exam: absent: Lymphadenopathy - Respiratory Exam Respiratory Exam: Decreased Breath Sounds - Cardiovascular Exam Cardiovascular Exam: REGULAR RHYTHM - GI/Abdominal Exam GI & Abdominal Exam: Distended, Soft. absent: Tenderness - Rectal Exam Rectal Exam: Deferred - Exam Exam: NORMAL INSPECTION - Extremities Exam Extremities Exam: absent: Pedal Edema - Back Exam Back Exam: absent: CVA tenderness (L), CVA tenderness (R) - Neurological Exam Neurological Exam: Alert, Awake, CN II-XII Intact, Oriented x3 Neuro motor strength exam: Left Upper Extremity: 4, Right Upper Extremity: 4, Left Lower Extremity: 4, Right Lower Extremity: 4 - Psychiatric Exam Psychiatric exam: Normal Mood - Skin Skin Exam: Dry Assessment and Plan (1) Cellulitis of right lower leg Status: Resolved (2) Atrial fibrillation Status: Chronic (3) CHF (congestive heart failure) Status: Chronic (4) Endotracheally intubated Status: Resolved (5) Respiratory distress Status: Acute (6) Respiratory failure with hypoxia and hypercapnia Status: Resolved (7) Dependent edema Status: Resolved (8) Pleural effusion, left Status: Resolved (9) Pneumonia Status: Resolved (10) COPD (chronic obstructive pulmonary disease) Status: Chronic (11) Sepsis Status: Resolved - Assessment and Plan (Free Text) Assessment: cont current rx follow up CXR may need pleurodesis
--- NOTE | 2018-07-29 20:51 | CP.PCM.PN ---
Subjective - Date & Time of Evaluation Date of Evaluation: 07/29/18 Time of Evaluation: 22:22 - Subjective Subjective: Above noted Objective - Vital Signs/Intake and Output Vital Signs (last 24 hours): Temp Pulse Resp BP Pulse Ox 98.8 F 90 17 101/66 100 07/29/18 19:51 07/29/18 20:16 07/29/18 19:51 07/29/18 19:51 07/29/18 19:51 - Medications Medications: Current Medications Acetaminophen (Tylenol 650mg/20.3ml Solution Ud) 650 mg NG Q6 PRN PRN Reason: Fever>100.4F Last Admin: 07/17/18 04:05 Dose: 650 mg Acetazolamide (Diamox 250 Mg Tab) 250 mg PO DAILY [facility] Last Admin: 07/29/18 16:46 Dose: 250 mg Albuterol/Ipratropium (Duoneb 3 Mg/0.5 Mg (3 Ml) Ud) 3 ml INH RQID [facility] Last Admin: 07/29/18 19:26 Dose: 3 ml Aspirin (Ecotrin) 81 mg PO DAILY [facility] Last Admin: 07/29/18 09:01 Dose: 81 mg Atorvastatin Calcium (Lipitor) 20 mg PO HS [facility] Last Admin: 07/27/18 21:37 Dose: 20 mg Docusate Sodium (Colace Liquid) 100 mg PO BID [facility] Last Admin: 07/29/18 16:49 Dose: 100 mg Folic Acid (Folic Acid) 1 mg NG DAILY [facility] Last Admin: 07/29/18 09:02 Dose: 1 mg Furosemide (Lasix) 40 mg IVP DAILY [facility] Last Admin: 07/29/18 16:48 Dose: 40 mg Lactic Acid (Lac-Hydrin 12% Lotion (225 G)) 1 applic TOP TID [facility] Last Admin: 07/29/18 16:47 Dose: 1 applic Methylprednisolone (Solu-Medrol) 30 mg IVP DAILY [facility] Last Admin: 07/29/18 09:03 Dose: 30 mg Metronidazole (Flagyl) 500 mg PO Q8 [facility]; Protocol Last Admin: 07/29/18 16:46 Dose: 500 mg Pyridostigmine [place] (Mestinon Tab) 30 mg PO BID [facility] Last Admin: 07/29/18 16:47 Dose: 30 mg Saccharomyces Boulardii (Florastor) 250 mg PO BID [facility] Last Admin: 07/29/18 16:47 Dose: 250 mg Spironolactone (Aldactone) 25 mg PO DAILY [facility] Last Admin: 07/29/18 08:50 Dose: 25 mg Thiamine HCl (Vitamin B1 Tab) 100 mg NG DAILY [facility] Last Admin: 07/29/18 09:04 Dose: 100 mg - Labs Labs: 07/25/18 04:17 07/25/18 04:17 PT 12.6 Seconds (9.8-13.1) 07/08/18 00:19 INR 1.1 07/08/18 00:19 APTT 42.4 Seconds (25.6-37.1) H 07/21/18 04:25 - Respiratory Exam Respiratory Exam: NORMAL BREATHING PATTERN - Cardiovascular Exam Cardiovascular Exam: REGULAR RHYTHM - GI/Abdominal Exam GI & Abdominal Exam: Normal Bowel Sounds Assessment and Plan - Assessment and Plan (Free Text) Assessment: Recurrent Pleural effusion etiol? IR thoracentesis done [employer] notes appreciated Deconditioning OOB PT S/P Acute Respiratory Failure Multi lobar pneumonia ( PNA ? CAP? ) Bilateral Pleural effusion S/P thoracentesis Hx COPD [facility] Smoker ICU Pulmonary ID ABX antifungal Hx CHF Afib S/P TAVR LV fxn good Cardiology rate controlled anticoagulation Cellulitis RLE improved ABX Hx ANTHONY/ CKD Metabolic alkalosis improving Nephrology Chronic ETOH ?? HX Abdominal distention improved Colonic ileus ( recurrent ) + FOBT ?? [place]is held etiol ?? 2 to L-S surgery pyridostigmine Hx LLE edema cellulitis ?? ecchymosis?? Endovascular consult ??? CT scan done no significant findings Hx Hyperkalemia 2 to Bactrim?? Hold NAMRATA Hx Hypokalemia Hyperkalemia HTN Prediabetes Hx Low back surgery (Severe Spinal Stenosis) Post operative illeus
[2018-07-30 00:06] VITALS: RESP 18
[2018-07-30] MEDS: Albuterol-Ipratrop 3 mg / 0.5 (3 ml) UD INH SCH ×2 (08:03→11:37)
[2018-07-30] MEDS: Saccharomyces Boulardi 250 mg Cap PO SCH (09:19)
[2018-07-30] MEDS: MethylPREDNISolone 40 mg Vial IVP SCH (09:25)
--- NOTE | 2018-07-30 10:54 | CP.PCM.PN ---
Subjective - Date & Time of Evaluation Date of Evaluation: 07/30/18 Time of Evaluation: 10:51 - Subjective Subjective: Seated comfortably on EOB. Mood is good, claims he feels well. Interim events and EMR entries reviewed. Cardiology re-eval appreciated. Vital signs remain stable, he continues to be afebrile. Awaiting pleural fluid cytology to complete the analysis from the last tap. Parameters for the fluid do suggest transudate, but are on the edge of exudate. His weight remains stable, and he has lost a significant amount, mostly fluid. The last echo reports good LVEF, severely dilated LA, unable to assess diastolic dysfunction, RVSP 28, mildly dilated RV. On exam there continues to be trace ankle edema bilaterally. No calf pain or tenderness, hyperpigmented epidermis w/o erythema/warmth. Pharynx pink and moist. Neck supple and trachea midline, no JVD. No dullness on chest percussion. Breath sounds are diminished bilaterally, but well heard in both bases. No audible wheezes, few scattered dry to medium rales bilaterally. Menjivar sounds are distant and rhythm irregular. SpO2 on nasal canula 4 LPM is 100%. May be discharged to TCU from a pulmonary perspective. Oxygen reduced to 2 LPM and increased to 4 LPM for PT. Follow up as an outpatient with repeat CT chest in one month. S/P pneumonia with respiratory failure and cellulitis of LEs. My opinion; pleural effusions were probably due to pneumonia and CHF (a fib with diastolic dysfunction). COPD-presently well managed with nebulizer treatment. Objective - Vital Signs/Intake and Output Vital Signs (last 24 hours): Temp Pulse Resp BP Pulse Ox 97.7 F 84 18 106/66 100 07/30/18 07:41 07/30/18 07:41 07/30/18 07:41 07/30/18 09:20 07/30/18 07:41 - Medications Medications: Current Medications Acetaminophen (Tylenol 650mg/20.3ml Solution Ud) 650 mg NG Q6 PRN PRN Reason: Fever>100.4F Last Admin: 07/17/18 04:05 Dose: 650 mg Acetazolamide (Diamox 250 Mg Tab) 250 mg PO DAILY [facility] Last Admin: 07/30/18 09:17 Dose: 250 mg Albuterol/Ipratropium (Duoneb 3 Mg/0.5 Mg (3 Ml) Ud) 3 ml INH RQID [facility] Last Admin: 07/30/18 08:03 Dose: 3 ml Aspirin (Ecotrin) 81 mg PO DAILY [facility] Last Admin: 07/30/18 09:18 Dose: 81 mg Atorvastatin Calcium (Lipitor) 20 mg PO HS [facility] Last Admin: 07/29/18 21:14 Dose: 20 mg Docusate Sodium (Colace Liquid) 100 mg PO BID [facility] Last Admin: 07/30/18 09:17 Dose: 100 mg Folic Acid (Folic Acid) 1 mg NG DAILY [facility] Last Admin: 07/30/18 09:19 Dose: 1 mg Furosemide (Lasix) 40 mg IVP DAILY [facility] Last Admin: 07/30/18 09:20 Dose: 40 mg Lactic Acid (Lac-Hydrin 12% Lotion (225 G)) 1 applic TOP TID [facility] Last Admin: 07/30/18 09:19 Dose: 1 applic Metronidazole (Flagyl) 500 mg PO Q8 [facility]; Protocol Last Admin: 07/30/18 09:18 Dose: 500 mg Pyridostigmine [place] (Mestinon Tab) 30 mg PO BID [facility] Last Admin: 07/30/18 09:20 Dose: 30 mg Saccharomyces Boulardii (Florastor) 250 mg PO BID [facility] Last Admin: 07/30/18 09:19 Dose: 250 mg Spironolactone (Aldactone) 25 mg PO DAILY [facility] Last Admin: 07/30/18 09:17 Dose: 25 mg Thiamine HCl (Vitamin B1 Tab) 100 mg NG DAILY [facility] Last Admin: 07/30/18 09:21 Dose: 100 mg - Labs Labs: 07/25/18 04:17 07/25/18 04:17 PT 12.6 Seconds (9.8-13.1) 07/08/18 00:19 INR 1.1 07/08/18 00:19 APTT 42.4 Seconds (25.6-37.1) H 07/21/18 04:25 Assessment and Plan (1) Respiratory failure with hypoxia and hypercapnia Status: Resolved (2) Endotracheally intubated Status: Resolved (3) Pleural effusion, left Status: Resolved (4) Dependent edema Status: Resolved (5) COPD (chronic obstructive pulmonary disease) Status: Chronic (6) Pneumonia Status: Resolved
[2018-07-30 12:14] VITALS: BP 100/63; PULSE 79; TEMP 97.4; O2SAT 98
--- NOTE | 2018-07-30 13:44 | CP.PCM.PN ---
Subjective - Date & Time of Evaluation Date of Evaluation: 07/30/18 Time of Evaluation: 07:00 - Subjective Subjective: events noted afebrile Labs cultures imaging and notes reviewed Objective - Vital Signs/Intake and Output Vital Signs (last 24 hours): Temp Pulse Resp BP Pulse Ox 97.4 F L 79 18 100/63 98 07/30/18 12:14 07/30/18 12:14 07/30/18 12:14 07/30/18 12:14 07/30/18 12:14 - Medications Medications: Current Medications Acetaminophen (Tylenol 650mg/20.3ml Solution Ud) 650 mg NG Q6 PRN PRN Reason: Fever>100.4F Last Admin: 07/17/18 04:05 Dose: 650 mg Acetazolamide (Diamox 250 Mg Tab) 250 mg PO DAILY [facility] Last Admin: 07/30/18 09:17 Dose: 250 mg Albuterol/Ipratropium (Duoneb 3 Mg/0.5 Mg (3 Ml) Ud) 3 ml INH RQID [facility] Last Admin: 07/30/18 11:37 Dose: 3 ml Aspirin (Ecotrin) 81 mg PO DAILY [facility] Last Admin: 07/30/18 09:18 Dose: 81 mg Atorvastatin Calcium (Lipitor) 20 mg PO HS [facility] Last Admin: 07/29/18 21:14 Dose: 20 mg Docusate Sodium (Colace Liquid) 100 mg PO BID [facility] Last Admin: 07/30/18 09:17 Dose: 100 mg Folic Acid (Folic Acid) 1 mg NG DAILY [facility] Last Admin: 07/30/18 09:19 Dose: 1 mg Furosemide (Lasix) 40 mg IVP DAILY [facility] Last Admin: 07/30/18 09:20 Dose: 40 mg Lactic Acid (Lac-Hydrin 12% Lotion (225 G)) 1 applic TOP TID [facility] Last Admin: 07/30/18 09:19 Dose: 1 applic Metronidazole (Flagyl) 500 mg PO Q8 [facility]; Protocol Last Admin: 07/30/18 09:18 Dose: 500 mg Pyridostigmine [place] (Mestinon Tab) 30 mg PO BID [facility] Last Admin: 07/30/18 09:20 Dose: 30 mg Saccharomyces Boulardii (Florastor) 250 mg PO BID [facility] Last Admin: 07/30/18 09:19 Dose: 250 mg Spironolactone (Aldactone) 25 mg PO DAILY [facility] Last Admin: 07/30/18 09:17 Dose: 25 mg Thiamine HCl (Vitamin B1 Tab) 100 mg NG DAILY [facility] Last Admin: 07/30/18 09:21 Dose: 100 mg - Labs Labs: 07/25/18 04:17 07/25/18 04:17 PT 12.6 Seconds (9.8-13.1) 07/08/18 00:19 INR 1.1 07/08/18 00:19 APTT 42.4 Seconds (25.6-37.1) H 07/21/18 04:25 - Constitutional Appears: Non-toxic, Chronically Ill - Head Exam Head Exam: ATRAUMATIC, NORMAL INSPECTION, NORMOCEPHALIC - Eye Exam Eye Exam: EOMI, Normal appearance, PERRL Pupil Exam: NORMAL ACCOMODATION, PERRL - ENT Exam ENT Exam: Mucous Membranes Moist, Normal Exam - Neck Exam Neck Exam: Full ROM, Normal Inspection. absent: Lymphadenopathy - Respiratory Exam Respiratory Exam: Clear to Ausculation Bilateral, NORMAL BREATHING PATTERN - Cardiovascular Exam Cardiovascular Exam: REGULAR RHYTHM, +S1, +S2. absent: Murmur - GI/Abdominal Exam GI & Abdominal Exam: Soft, Normal Bowel Sounds. absent: Tenderness - Rectal Exam Rectal Exam: Deferred - Extremities Exam Extremities Exam: Full ROM, Normal Capillary Refill, Normal Inspection. absent: Joint Swelling, Pedal Edema - Back Exam Back Exam: NORMAL INSPECTION - Neurological Exam Neurological Exam: Alert, Awake, CN II-XII Intact, Normal Gait, Oriented x3 - Psychiatric Exam Psychiatric exam: Normal Affect, Normal Mood - Skin Skin Exam: Dry, Intact, Normal Color, Warm Assessment and Plan (1) Cellulitis of right lower leg Status: Resolved (2) Atrial fibrillation Status: Chronic (3) CHF (congestive heart failure) Status: Chronic (4) Endotracheally intubated Status: Resolved (5) Respiratory distress Status: Acute (6) Respiratory failure with hypoxia and hypercapnia Status: Resolved (7) Dependent edema Status: Resolved (8) Pleural effusion, left Status: Resolved (9) Pneumonia Status: Resolved (10) COPD (chronic obstructive pulmonary disease) Status: Chronic (11) Sepsis Status: Resolved - Assessment and Plan (Free Text) Assessment: slow progress follow CXR
--- NOTE | 2018-07-30 18:53 | CP.PCM.HP ---
History of Present Illness - History of Present Illness History of Present Illness: 88 yo admitted for deconditioing Present on Admission - Present on Admission Any Indicators Present on Admission: No Past Patient History - Infectious Disease Hx of Infectious Diseases: None - Past Medical History & Family History Past Medical History?: Yes - Past Social History Smoking Status: Former Smoker Chewing Tobacco Use: No Cigar Use: No Alcohol: > 2 Drinks/Day Drugs: Denies Home Situation {Lives}: With Family - CARDIAC Hx Atrial Fibrillation: Yes Hx Congestive Heart Failure: Yes Hx Hypercholesterolemia: Yes Hx Hypertension: Yes Hx Peripheral Edema: Yes - PULMONARY Hx Bronchitis: Yes Hx Chronic Obstructive Pulmonary Disease (COPD): Yes Other/Comment: pleural effusion. - NEUROLOGICAL Hx Neurological Disorder: No - HEENT Hx HEENT Problems: No - RENAL Hx Chronic Kidney Disease: No - ENDOCRINE/METABOLIC Hx Endocrine Disorders: No - HEMATOLOGICAL/ONCOLOGICAL Hx Human Immunodeficiency Virus (HIV): No - INTEGUMENTARY Other/Comment: skin lesion recently removed from left infra-ocular area - MUSCULOSKELETAL/RHEUMATOLOGICAL Hx Arthritis: Yes Hx Back Pain: Yes Hx Herniated Disk: Yes - GASTROINTESTINAL Hx Diarrhea: Yes Other/Comment: ileus - GENITOURINARY/GYNECOLOGICAL Hx Genitourinary Disorders: No - PSYCHIATRIC Hx Psychophysiologic Disorder: No - SURGICAL HISTORY Hx Valve Replacement: Yes (TAVR) Other/Comment: Laminectomy L3-L5 05/15/2017 - ANESTHESIA Hx Anesthesia: Yes Hx Anesthesia Reactions: No Hx Malignant Hyperthermia: No Meds Home Medications: Home Medication List Medication Instructions Recorded Confirmed Type Acetaminophen [Tylenol 650 mg NG Q6 PRN udc 07/30/18 Rx 650mg/20.3ml solution UD] Albuterol/Ipratropium [Duoneb 3 3 ml INH RQID neb 07/30/18 Rx mg/0.5 mg (3 ml) UD] Folic Acid 1 mg NG DAILY tab 07/30/18 Rx Thiamine [Vitamin B1 Tab] 100 mg NG DAILY tab 07/30/18 Rx acetaZOLAMIDE [Diamox 250 mg Tab] 250 mg PO DAILY tab 07/30/18 Rx Allergies/Adverse Reactions: Allergies Allergy/AdvReac Type Severity Reaction Status Date / Time No Known Allergies Allergy Verified 07/30/18 14:03 Physical Exam - Respiratory Exam Respiratory Exam: NORMAL BREATHING PATTERN - Cardiovascular Exam Cardiovascular Exam: REGULAR RHYTHM - GI/Abdominal Exam GI & Abdominal Exam: Normal Bowel Sounds Results - Vital Signs Recent Vital Signs: Last Vital Signs Temp 97.4 F L 07/30/18 12:14 Pulse 79 07/30/18 12:14 Resp 18 07/30/18 12:14 BP 100/63 07/30/18 12:14 Pulse Ox 98 07/30/18 12:14 - Labs Result Diagrams: 07/25/18 04:17 07/25/18 04:17 Labs: Laboratory Results - last 24 hr 07/30/18 05:01 POC Glucose (mg/dL) 137 H Assessment & Plan - Assessment and Plan (Free Text) Assessment: Deconditioning OOB PT Recurrent Pleural effusion etiol? IR thoracentesis done [employer] notes appreciated S/P Acute Respiratory Failure Multi lobar pneumonia ( PNA ? CAP? ) Bilateral Pleural effusion S/P thoracentesis Hx COPD [facility] Smoker ICU Pulmonary ID ABX antifungal Hx CHF Afib S/P TAVR LV fxn good Cardiology rate controlled anticoagulation Cellulitis RLE improved ABX Hx ANTHONY/ CKD Metabolic alkalosis improving Nephrology Chronic ETOH ?? HX Abdominal distention improved Colonic ileus ( recurrent ) + FOBT ?? [place] held etiol ?? 2 to L-S surgery pyridostigmine Hx LLE edema cellulitis ?? ecchymosis?? Endovascular consult ??? CT scan done no significant findings Hx Hyperkalemia 2 to Bactrim?? Hold NAMRATA Hx Hypokalemia Hyperkalemia HTN Prediabetes Hx Low back surgery (Severe Spinal Stenosis) Post operative illeus - Date & Time Date: 07/30/18 Time: 22:22
--- NOTE | 2018-08-02 12:22 | US ---
PROCEDURE: Date of procedure: 07/28/2018 Procedure: 1. Ultrasound-guided left thoracentesis, CPT 38847 Medications: 6CC 1% Lidocaine HISTORY: Left pleural effusion, shortness of breath TECHNIQUE: Following informed consent ,the Patients' left chest was marked. Procedure time-out was called, and the patient was placed in the sitting position and limited ultrasound showed a SMALL left effusion. The patient's left back was prepped and draped in the usual sterile fashion. After the skin was anesthetized with lidocaine, a drainage catheter was advanced under ultrasound guidance into the pleural space. Ultrasound-guided thoracentesis was performed. A total of 300 cubic centimeters of straw-colored fluid removed without complication. A Xeroform dressing was applied. IMPRESSION: Ultrasound guided left thoracentesis. There were no immediate complications.
--- NOTE | 2018-08-02 22:00 | CP.PCM.PN ---
Subjective - Date & Time of Evaluation Date of Evaluation: 08/02/18 Time of Evaluation: 09:00 - Subjective Subjective: Feels well. Soft BM 2-3 x daily. Appears in good spirits. Objective - Vital Signs/Intake and Output Vital Signs (last 24 hours): Temp Pulse Resp BP Pulse Ox 97.4 F L 79 18 100/63 98 07/30/18 12:14 07/30/18 12:14 07/30/18 12:14 07/30/18 12:14 07/30/18 12:14 - Labs Labs: 07/25/18 04:17 07/25/18 04:17 PT 12.6 Seconds (9.8-13.1) 07/08/18 00:19 INR 1.1 07/08/18 00:19 APTT 42.4 Seconds (25.6-37.1) H 07/21/18 04:25 - Head Exam Head Exam: ATRAUMATIC - Eye Exam Eye Exam: Normal appearance - ENT Exam ENT Exam: Normal Exam - Neck Exam Neck Exam: Full ROM - Respiratory Exam Respiratory Exam: Clear to Ausculation Bilateral - Cardiovascular Exam Cardiovascular Exam: REGULAR RHYTHM - GI/Abdominal Exam GI & Abdominal Exam: Soft, Normal Bowel Sounds. absent: Tenderness Assessment and Plan (1) Abdominal distention Assessment & Plan: Continues to have regular bowel movements. Currently not distended. Status: Acute
== END 2018-07-30 13:48 | DRG 870 ==
LOC: H.ER 23:51 → H.ERHOLD 07-08 01:17 → H.ICU/CCU 07-08 03:21 → H.TEL 07-25 18:07
PROVIDERS: ADMIT Family Medicine Geriatric Medicine; ATTEND Family Medicine Geriatric Medicine
PROC: 5A1955Z Respiratory Ventilation, Greater than 96 Consecutive Hours (ICD-10-PCS; principal; 2018-07-08)
PROC: 0BH17EZ Insertion of Endotracheal Airway into Trachea, Via Natural or Artificial Opening (ICD-10-PCS; 2018-07-08)
PROC: 3E0F73Z Introduction of Anti-inflammatory into Respiratory Tract, Via Natural or Artificial Opening (ICD-10-PCS; 2018-07-08)
PROC: 5A19054 Respiratory Ventilation, Single, Nonmechanical (ICD-10-PCS; 2018-07-13)
PROC: 0BJ08ZZ Inspection of Tracheobronchial Tree, Via Natural or Artificial Opening Endoscopic (ICD-10-PCS; 2018-07-17)
PROC: 0W9B30Z Drainage of Left Pleural Cavity with Drainage Device, Percutaneous Approach (ICD-10-PCS; 2018-07-19)
PROC: 0W9930Z Drainage of Right Pleural Cavity with Drainage Device, Percutaneous Approach (ICD-10-PCS; 2018-07-19)
PROC: 0W9B3ZZ Drainage of Left Pleural Cavity, Percutaneous Approach (ICD-10-PCS; 2018-07-28)
DX: A41.9 Sepsis, unspecified organism (principal); J96.01 Acute respiratory failure with hypoxia; J96.02 Acute respiratory failure with hypercapnia; J18.1 Lobar pneumonia, unspecified organism; I50.33 Acute on chronic diastolic (congestive) heart failure; G93.41 Metabolic encephalopathy; N17.9 Acute kidney failure, unspecified; E87.2 Acidosis; L03.115 Cellulitis of right lower limb; J44.0 Chronic obstructive pulmonary disease with (acute) lower respiratory infection; J98.11 Atelectasis; E87.4 Mixed disorder of acid-base balance; K56.7 Ileus, unspecified; Z99.11 Dependence on respirator [ventilator] status; I11.0 Hypertensive heart disease with heart failure; I48.2 Chronic atrial fibrillation; E87.6 Hypokalemia; E83.41 Hypermagnesemia; I25.10 Atherosclerotic heart disease of native coronary artery without angina pectoris; I27.20 Pulmonary hypertension, unspecified; F10.10 Alcohol abuse, uncomplicated; R73.03 Prediabetes; D64.9 Anemia, unspecified; E78.00 Pure hypercholesterolemia, unspecified; E78.5 Hyperlipidemia, unspecified; M48.00 Spinal stenosis, site unspecified; Z78.1 Physical restraint status; Z95.2 Presence of prosthetic heart valve; Y95 Nosocomial condition; Z87.01 Personal history of pneumonia (recurrent); Z79.01 Long term (current) use of anticoagulants; Z79.82 Long term (current) use of aspirin; Z87.891 Personal history of nicotine dependence

== ENCOUNTER 2018-07-30 13:09 | Inpatient (IN) | payer OTHER ==
[2018-07-30 14:03] VITALS: BMI 27.2
[2018-07-30] MEDS ORDERED: Acetaminophen 650mg/20.3ml solution UD NG PRN (14:29)
[2018-07-30] MEDS: Albuterol-Ipratrop 3 mg / 0.5 (3 ml) UD INH SCH ×2 (15:44→19:28)
--- NOTE | 2018-07-30 17:31 | CP.PCM.CON ---
History of Present Illness - History of Present Illness History of Present Illness: This patient now is 88 years of age male who was transferred from the floor with multitude of medical problems including but not limited to respiratory failure and he was extubated pneumonia sepsis acute kidney injury which has been re covered and bilateral pleural effusion and the patient made excellent recovery and he was transferred to subacute unit for further treatment and management and for chronic debility Review of Systems - Constitutional Constitutional: Malaise. absent: Anorexia, Chills - Cardiovascular Cardiovascular: Dyspnea on Exertion. absent: Acrocyanosis, Edema - Respiratory Respiratory: Dyspnea on Exertion. absent: Hemoptysis - Gastrointestinal Gastrointestinal: absent: Abdominal Pain, Dysphagia - Genitourinary Genitourinary: Nocturia. absent: Hematuria - Musculoskeletal Musculoskeletal: Muscle Weakness. absent: Arthralgias - Neurological Neurological: absent: Abnormal Movements, Convulsions, Headaches, Lack of Coordination - Psychiatric Psychiatric: absent: Hallucinations - Endocrine Endocrine: Fatigue - Hematologic/Lymphatic Hematologic: absent: Easy Bleeding Past Patient History - Infectious Disease Hx of Infectious Diseases: None - Past Medical History & Family History Past Medical History?: Yes - Past Social History Smoking Status: Never Smoked - CARDIAC Hx Atrial Fibrillation: Yes Hx Congestive Heart Failure: Yes Hx Hypercholesterolemia: Yes Hx Hypertension: Yes Hx Peripheral Edema: Yes - PULMONARY Hx Bronchitis: Yes Hx Chronic Obstructive Pulmonary Disease (COPD): Yes - NEUROLOGICAL Hx Neurological Disorder: No - HEENT Hx HEENT Problems: No - RENAL Hx Chronic Kidney Disease: No - ENDOCRINE/METABOLIC Hx Endocrine Disorders: No - HEMATOLOGICAL/ONCOLOGICAL Hx Blood Disorders: No Hx AIDS: No Hx Human Immunodeficiency Virus (HIV): No - INTEGUMENTARY Other/Comment: skin lesion recently removed from left infra-ocular area - MUSCULOSKELETAL/RHEUMATOLOGICAL Hx Falls: No Hx Gout: Yes Hx Unsteady Gait: Yes (ambulates with cane) - GASTROINTESTINAL Hx Gastrointestinal Disorders: No - GENITOURINARY/GYNECOLOGICAL Hx Genitourinary Disorders: No - PSYCHIATRIC Hx Psychophysiologic Disorder: No Hx Substance Use: No - SURGICAL HISTORY Hx Valve Replacement: Yes (TAVR) Other/Comment: Laminectomy L3-L5 05/15/2017 - ANESTHESIA Hx Anesthesia: Yes Hx Anesthesia Reactions: No Hx Malignant Hyperthermia: No Meds Allergies/Adverse Reactions: Allergies Allergy/AdvReac Type Severity Reaction Status Date / Time No Known Allergies Allergy Verified 07/30/18 14:03 - Medications Medications: Current Medications Acetaminophen (Tylenol 650mg/20.3ml Solution Ud) 650 mg NG Q6 PRN PRN Reason: Fever>100.4F Acetazolamide (Diamox 250 Mg Tab) 250 mg PO DAILY [facility] Albuterol/Ipratropium (Duoneb 3 Mg/0.5 Mg (3 Ml) Ud) 3 ml INH RQID [facility] Last Admin: 07/30/18 15:44 Dose: Not Given Aspirin (Ecotrin) 81 mg PO DAILY [facility] Atorvastatin Calcium (Lipitor) 20 mg PO HS [facility] Docusate Sodium (Colace) 100 mg PO BID [facility] Enoxaparin Sodium (Lovenox) 40 mg SC DAILY [facility]; Protocol Folic Acid (Folic Acid) 1 mg NG DAILY [facility] Furosemide (Lasix) 40 mg IVP DAILY [facility] Lactic Acid (Lac-Hydrin 12% Lotion (225 G)) 1 applic TOP TID [facility] Pyridostigmine [place] (Mestinon Tab) 30 mg PO TID [facility] Spironolactone (Aldactone) 25 mg PO DAILY [facility] Thiamine HCl (Vitamin B1 Tab) 100 mg NG DAILY [facility] Physical Exam - Constitutional Appears: No Acute Distress - Eye Exam Eye Exam: Conjunctival injection - ENT Exam ENT Exam: Mucous Membranes Moist - Neck Exam Neck exam: Negative for: Lymphadenopathy - Respiratory Exam Respiratory Exam: Rhonchi, NORMAL BREATHING PATTERN. absent: Chest Wall Tenderness - Cardiovascular Exam Cardiovascular Exam: absent: JVD, Rubs - GI/Abdominal Exam GI & Abdominal Exam: Normal Bowel Sounds. absent: Guarding - Extremities Exam Extremities exam: Negative for: calf tenderness - Back Exam Back exam: absent: CVA tenderness (L), CVA tenderness (R) - Neurological Exam Neurological exam: Alert - Psychiatric Exam Psychiatric exam: Normal Affect Results - Vital Signs Recent Vital Signs: Last Vital Signs Temp 97.6 F 07/30/18 17:01 Pulse 93 H 07/30/18 17:01 Resp 20 07/30/18 17:01 BP 102/73 07/30/18 17:01 Pulse Ox 99 07/30/18 17:01 Assessment & Plan - Assessment and Plan (Free Text) Assessment: S/P acute respi failure PNA, ANTHONY recovered HTN, COPD CHF s/p TAVR Pleural effusion Recommendation Metabolic alkalosis stable with CO2 around 34. Diamox started in the floor
--- NOTE | 2018-07-30 18:56 | CP.PCM.HP ---
History of Present Illness - History of Present Illness History of Present Illness: 88 yo admitted for deconditioning Present on Admission - Present on Admission Any Indicators Present on Admission: No Past Patient History - Infectious Disease Hx of Infectious Diseases: None - Past Medical History & Family History Past Medical History?: Yes - Past Social History Smoking Status: Never Smoked - CARDIAC Hx Atrial Fibrillation: Yes Hx Congestive Heart Failure: Yes Hx Hypercholesterolemia: Yes Hx Hypertension: Yes Hx Peripheral Edema: Yes - PULMONARY Hx Bronchitis: Yes Hx Chronic Obstructive Pulmonary Disease (COPD): Yes - NEUROLOGICAL Hx Neurological Disorder: No - HEENT Hx HEENT Problems: No - RENAL Hx Chronic Kidney Disease: No - ENDOCRINE/METABOLIC Hx Endocrine Disorders: No - HEMATOLOGICAL/ONCOLOGICAL Hx Blood Disorders: No Hx AIDS: No Hx Human Immunodeficiency Virus (HIV): No - INTEGUMENTARY Other/Comment: skin lesion recently removed from left infra-ocular area - MUSCULOSKELETAL/RHEUMATOLOGICAL Hx Falls: No Hx Gout: Yes Hx Unsteady Gait: Yes (ambulates with cane) - GASTROINTESTINAL Hx Gastrointestinal Disorders: No - GENITOURINARY/GYNECOLOGICAL Hx Genitourinary Disorders: No - PSYCHIATRIC Hx Psychophysiologic Disorder: No Hx Substance Use: No - SURGICAL HISTORY Hx Valve Replacement: Yes (TAVR) Other/Comment: Laminectomy L3-L5 05/15/2017 - ANESTHESIA Hx Anesthesia: Yes Hx Anesthesia Reactions: No Hx Malignant Hyperthermia: No Meds Allergies/Adverse Reactions: Allergies Allergy/AdvReac Type Severity Reaction Status Date / Time No Known Allergies Allergy Verified 07/30/18 14:03 Physical Exam - Respiratory Exam Respiratory Exam: NORMAL BREATHING PATTERN - Cardiovascular Exam Cardiovascular Exam: REGULAR RHYTHM - GI/Abdominal Exam GI & Abdominal Exam: Normal Bowel Sounds Results - Vital Signs Recent Vital Signs: Last Vital Signs Temp 97.6 F 07/30/18 17:01 Pulse 93 H 07/30/18 17:01 Resp 20 07/30/18 17:01 BP 102/73 07/30/18 17:01 Pulse Ox 99 07/30/18 17:01 Assessment & Plan - Assessment and Plan (Free Text) Assessment: Deconditioning OOB PT Recurrent Pleural effusion etiol? IR thoracentesis done [employer] notes appreciated S/P Acute Respiratory Failure Multi lobar pneumonia ( PNA ? CAP? ) Bilateral Pleural effusion S/P thoracentesis Hx COPD [facility] Smoker ICU Pulmonary ID ABX antifungal Hx CHF Afib S/P TAVR LV fxn good Cardiology rate controlled anticoagulation Cellulitis RLE improved ABX Hx ANTHONY/ CKD Metabolic alkalosis improving Nephrology Chronic ETOH ?? HX Abdominal distention improved Colonic ileus ( recurrent ) + FOBT ?? [place] held etiol ?? 2 to L-S surgery pyridostigmine Hx LLE edema cellulitis ?? ecchymosis?? Endovascular consult ??? CT scan done no significant findings Hx Hyperkalemia 2 to Bactrim?? Hold NAMRATA Hx Hypokalemia Hyperkalemia HTN Prediabetes Hx Low back surgery (Severe Spinal Stenosis) Post operative illeus - Date & Time Date: 07/30/18 Time: 22:22
--- NOTE | 2018-07-31 06:11 | CP.PCM.PN ---
Subjective - Date & Time of Evaluation Date of Evaluation: 07/31/18 Time of Evaluation: 22:22 - Subjective Subjective: Above noted Doing well Chart reviewed in detail consultants confirmed Multiple calls extended discussion Objective - Vital Signs/Intake and Output Vital Signs (last 24 hours): Temp Pulse Resp BP Pulse Ox 97.4 F L 86 20 112/70 99 07/30/18 22:45 07/30/18 22:45 07/30/18 22:45 07/30/18 22:45 07/30/18 22:45 - Medications Medications: Current Medications Acetaminophen (Tylenol 650mg/20.3ml Solution Ud) 650 mg NG Q6 PRN PRN Reason: Fever>100.4F Acetazolamide (Diamox 250 Mg Tab) 250 mg PO DAILY [facility] Albuterol/Ipratropium (Duoneb 3 Mg/0.5 Mg (3 Ml) Ud) 3 ml INH RQID [facility] Last Admin: 07/30/18 19:28 Dose: 3 ml Aspirin (Ecotrin) 81 mg PO DAILY [facility] Atorvastatin Calcium (Lipitor) 20 mg PO HS [facility] Last Admin: 07/30/18 23:54 Dose: 20 mg Docusate Sodium (Colace) 100 mg PO BID [facility] Last Admin: 07/30/18 18:03 Dose: Not Given Enoxaparin Sodium (Lovenox) 40 mg SC DAILY [facility]; Protocol Folic Acid (Folic Acid) 1 mg NG DAILY [facility] Furosemide (Lasix) 40 mg IVP DAILY [facility] Lactic Acid (Lac-Hydrin 12% Lotion (225 G)) 1 applic TOP TID [facility] Last Admin: 07/30/18 17:00 Dose: 1 applic Pyridostigmine [place] (Mestinon Tab) 30 mg PO TID [facility] Last Admin: 07/30/18 18:03 Dose: 30 mg Spironolactone (Aldactone) 25 mg PO DAILY [facility] Thiamine HCl (Vitamin B1 Tab) 100 mg NG DAILY [facility] - Respiratory Exam Respiratory Exam: Wheezes, NORMAL BREATHING PATTERN - Cardiovascular Exam Cardiovascular Exam: REGULAR RHYTHM - GI/Abdominal Exam GI & Abdominal Exam: Normal Bowel Sounds Assessment and Plan - Assessment and Plan (Free Text) Assessment: Deconditioning OOB PT Recurrent Pleural effusion etioliogy CHF diastolic / Pneumonia IR thoracentesis done [employer] Super[employer] notes appreciated Repeat CT scan one month S/P Acute Respiratory Failure Multi lobar pneumonia ( PNA ? CAP? ) Hx COPD [facility] Smoker Pulmonary ID ABX antifungal Hx CHF Afib S/P TAVR LV fxn good Cardiology rate controlled anticoagulation Cellulitis RLE improved ABX Hx ANTHONY/ CKD Metabolic alkalosis improved Nephrology Chronic ETOH ?? HX Abdominal distention improved Colonic ileus ( recurrent ) + FOBT ?? [place] held etiol ?? 2 to L-S surgery pyridostigmine Hx LLE edema cellulitis ?? ecchymosis?? Endovascular consult ??? CT scan done no significant findings Hx Hyperkalemia 2 to Bactrim?? Hold NAMRATA Hx Hypokalemia Hyperkalemia HTN Prediabetes Hx Low back surgery (Severe Spinal Stenosis) Post operative illeus
[2018-07-31] MEDS: Albuterol-Ipratrop 3 mg / 0.5 (3 ml) UD INH SCH ×4 (07:11→18:59)
[2018-07-31 07:48] LABS: BLOOD UREA NITROGEN 30 mg/dl (9-20); CALCIUM 8.1 mg/dL (8.4-10.2); GFR NON-AFRICAN AMERICAN > 60
[2018-07-31 07:56] LABS: BASO % 0.4 % (0.0-2.0); EOS # 0.1 K/uL (0.0-0.7); EOS % 1.6 % (0.0-4.0); HEMOGLOBIN 10.8 g/dL (12.0-18.0); LYMPH # 1.4 K/uL (1.0-4.3); LYMPH % 16.8 % (20.0-40.0); MEAN CELL VOLUME 89.8 fl (80.0-94.0); MEAN CORPUSCULAR HEMOGLOBIN 28.1 pg (27.0-31.0); MEAN CORPUSCULAR HGB CONC 31.3 g/dL (33.0-37.0); MEAN PLATELET VOLUME 9.9 fl (7.2-11.7); MONO # 1.3 K/uL (0.0-0.8); MONO % 14.9 % (0.0-10.0); NEUT # 5.6 K/uL (1.8-7.0); NEUT % 66.3 % (50.0-75.0); NRBC % 0.1 % (0.0-0.0); RBC 3.86 Mil/uL (4.40-5.90); RED CELL DISTRIBUTION WIDTH 18.3 % (11.5-14.5); WHITE BLOOD COUNT 8.5 K/uL (4.8-10.8)
[2018-07-31] MEDS: Enoxaparin 40 mg Syringe SC SCH (10:13)
--- NOTE | 2018-07-31 14:09 | CP.PCM.PN ---
Subjective - Date & Time of Evaluation Date of Evaluation: 07/31/18 Time of Evaluation: 14:06 - Subjective Subjective: RENAL seen and examined no complaints pe: vss gen: nad sclera; anicteric op: clear neck: supple cv: +S1+s2 lungs reduced bs at abases abd: soft, + distension ext: no edema neuro: a+Ox3 psych: nml affect skin no rash IMP: PNA, ANTHONY, alkalemia/ anemia, htn, chf plan: renal function stable lytes stable will monitor hco3 stable Objective - Vital Signs/Intake and Output Vital Signs (last 24 hours): Temp Pulse Resp BP Pulse Ox 97.6 F 80 20 116/67 99 07/31/18 09:43 07/31/18 09:43 07/31/18 09:43 07/31/18 09:43 07/31/18 09:43 - Medications Medications: Current Medications Acetaminophen (Tylenol 650mg/20.3ml Solution Ud) 650 mg NG Q6 PRN PRN Reason: Fever>100.4F Acetazolamide (Diamox 250 Mg Tab) 250 mg PO DAILY [facility] Last Admin: 07/31/18 09:06 Dose: 250 mg Albuterol/Ipratropium (Duoneb 3 Mg/0.5 Mg (3 Ml) Ud) 3 ml INH RQID [facility] Last Admin: 07/31/18 11:00 Dose: 3 ml Aspirin (Ecotrin) 81 mg PO DAILY [facility] Last Admin: 07/31/18 09:06 Dose: 81 mg Atorvastatin Calcium (Lipitor) 20 mg PO HS [facility] Last Admin: 07/30/18 23:54 Dose: 20 mg Docusate Sodium (Colace) 100 mg PO BID [facility] Last Admin: 07/31/18 09:06 Dose: 100 mg Enoxaparin Sodium (Lovenox) 40 mg SC DAILY [facility]; Protocol Last Admin: 07/31/18 10:13 Dose: 40 mg Folic Acid (Folic Acid) 1 mg NG DAILY [facility] Last Admin: 07/31/18 09:06 Dose: 1 mg Furosemide (Lasix) 40 mg IVP DAILY [facility] Last Admin: 07/31/18 09:11 Dose: 40 mg Lactic Acid (Lac-Hydrin 12% Lotion (225 G)) 1 applic TOP TID [facility] Last Admin: 07/31/18 12:33 Dose: 1 applic Pyridostigmine [place] (Mestinon Tab) 30 mg PO TID [facility] Last Admin: 07/31/18 12:31 Dose: 30 mg Spironolactone (Aldactone) 25 mg PO DAILY [facility] Last Admin: 07/31/18 09:06 Dose: 25 mg Thiamine HCl (Vitamin B1 Tab) 100 mg NG DAILY [facility] Last Admin: 07/31/18 09:05 Dose: 100 mg - Labs Labs: 07/31/18 06:55 07/31/18 06:55
[2018-08-01] MEDS: Albuterol-Ipratrop 3 mg / 0.5 (3 ml) UD INH SCH ×4 (07:30→19:09)
[2018-08-01] MEDS: Enoxaparin 40 mg Syringe SC SCH (08:13)
[2018-08-01 08:16] LABS: BLOOD UREA NITROGEN 26 mg/dl (9-20); CALCIUM 8.4 mg/dL (8.4-10.2); GFR NON-AFRICAN AMERICAN 57
--- NOTE | 2018-08-01 14:17 | CP.PCM.CON ---
History of Present Illness - History of Present Illness History of Present Illness: 88 yo Male with PMHx of HTN, HLD, COPD, pulmonary hypertension, HFpEF, s/p TAVR, Chronic A-fib (Eliquis on hold due to +FOBT?), recurrent pleural effusion, admitted to TCU for ongoing therapy s/p multiple recurrent pleural effusions No recent positive cultures Pul;monary following closely Repeat CXR ordered - Constitutional Constitutional: As Per HPI - EENT Eyes: absent: As Per HPI, Blind Spots, Blurred Vision, Change in Vision, Decreased Night Vision, Diplopia, Discharge, Dry Eye, Exophthalmos, Floaters, Irritation, Itchy Eyes, Loss of Peripheral Vision, Pain, Photophobia, Requires Corrective Lenses, Sees Flashes, Spots in Vision, Tunnel Vision, Other Visual Disturbances, Loss of Vision, Other Ears: absent: As Per HPI, Decreased Hearing, Ear Discharge, Ear Pain, Tinnitus, Abnormal Hearing, Disequilibrium, Dizziness, Other Nose/Mouth/Throat: absent: As Per HPI, Epistaxis, Nasal Congestion, Nasal Discharge, Nasal Obstruction, Nasal Trauma, Nose Pain, Post Nasal Drip, Sinus Pain, Sinus Pressure, Bleeding Gums, Change in Voice, Dental Pain, Dry Mouth, Dysphagia, Halitosis, Hoarsness, Lip Swelling, Mouth Lesions, Mouth Pain, Odynophagia, Sore Throat, Throat Swelling, Tongue Swelling, Facial Pain, Neck Pain, Neck Mass, Other - Cardiovascular Cardiovascular: As Per HPI - Respiratory Respiratory: As Per HPI, Dyspnea, Dyspnea on Exertion - Gastrointestinal Gastrointestinal: absent: As Per HPI, Abdominal Pain, Belching, Bloating, Change in Bowel Habits, Change in Stool Character, Coffee Ground Emesis, Constipation, Cramping, Diarrhea, Dyspepsia, Dysphagia, Early Satiety, Excessive Flatus, Fecal Incontinence, Heartburn, Hematemesis, Hematochezia, Loose Stools, Melena, Nausea, Odynophagia, Temesmus, Vomiting, Other - Genitourinary Genitourinary: absent: As Per HPI, Change in Urinary Stream, Difficulty Urinating, Dysuria, Flank Pain, Hematuria, Pyuria, Nocturia, Urinary Incontinence, Urinary Frequency, Urinary Hesitance, Urinary Urgency, Voiding Freq/Small Amts, Freq UTI, Hx Renal/Bladder Calculi, Hx /Renal Surgery, Bladder Distension, Other - Musculoskeletal Musculoskeletal: As Per HPI - Integumentary Integumentary: As Per HPI, Skin Pain - Neurological Neurological: absent: As Per HPI, Abnormal Gait, Abnormal Hearing, Abnormal Movements, Abnormal Speech, Behavioral Changes, Burning Sensations, Confusion, Convulsions, Disequilibrium, Dizziness, Numbness, Focal Weakness, Frequent Falls, Headaches, Lack of Coordination, Loss of Vision, Memory Loss, Paresthesias, Radicular Pain, Restless Legs, Sensory Deficit, Syncope, Tingling, Tremor, Vertigo, Weakness, Other Visual Disturbances, Other - Psychiatric Psychiatric: absent: As Per HPI, Abnormal Sleep Pattern, Anhedonia, Anxiety, Auditory Hallucinations, Behavioral Changes, Change in Appetite, Change in Libido, Confusion, Depression, Difficulty Concentrating, Hallucinations, Homicidal Ideation, Hopelessness, Irritability, Memory Loss, Mood Swings, Panic Attacks, Paranoia, Suicidal Ideation, Visual Hallucinations, Tactile Hallucinations, Other Past Patient History - Infectious Disease Hx of Infectious Diseases: None - Past Medical History & Family History Past Medical History?: Yes - Past Social History Smoking Status: Never Smoked - CARDIAC Hx Atrial Fibrillation: Yes Hx Congestive Heart Failure: Yes Hx Hypercholesterolemia: Yes Hx Hypertension: Yes Hx Peripheral Edema: Yes - PULMONARY Hx Bronchitis: Yes Hx Chronic Obstructive Pulmonary Disease (COPD): Yes - NEUROLOGICAL Hx Neurological Disorder: No - HEENT Hx HEENT Problems: No - RENAL Hx Chronic Kidney Disease: No - ENDOCRINE/METABOLIC Hx Endocrine Disorders: No - HEMATOLOGICAL/ONCOLOGICAL Hx Blood Disorders: No Hx AIDS: No Hx Human Immunodeficiency Virus (HIV): No - INTEGUMENTARY Other/Comment: skin lesion recently removed from left infra-ocular area - MUSCULOSKELETAL/RHEUMATOLOGICAL Hx Falls: No Hx Gout: Yes Hx Unsteady Gait: Yes (ambulates with cane) - GASTROINTESTINAL Hx Gastrointestinal Disorders: No - GENITOURINARY/GYNECOLOGICAL Hx Genitourinary Disorders: No - PSYCHIATRIC Hx Psychophysiologic Disorder: No Hx Substance Use: No - SURGICAL HISTORY Hx Valve Replacement: Yes (TAVR) Other/Comment: Laminectomy L3-L5 05/15/2017 - ANESTHESIA Hx Anesthesia: Yes Hx Anesthesia Reactions: No Hx Malignant Hyperthermia: No Meds Allergies/Adverse Reactions: Allergies Allergy/AdvReac Type Severity Reaction Status Date / Time No Known Allergies Allergy Verified 07/30/18 14:03 - Medications Medications: Current Medications Acetaminophen (Tylenol 650mg/20.3ml Solution Ud) 650 mg NG Q6 PRN PRN Reason: Fever>100.4F Acetazolamide (Diamox 250 Mg Tab) 250 mg PO DAILY [facility] Last Admin: 08/01/18 08:15 Dose: 250 mg Albuterol/Ipratropium (Duoneb 3 Mg/0.5 Mg (3 Ml) Ud) 3 ml INH RQID [facility] Last Admin: 08/01/18 11:03 Dose: 3 ml Aspirin (Ecotrin) 81 mg PO DAILY [facility] Last Admin: 08/01/18 08:14 Dose: 81 mg Atorvastatin Calcium (Lipitor) 20 mg PO HS [facility] Last Admin: 07/31/18 21:29 Dose: 20 mg Docusate Sodium (Colace) 100 mg PO BID [facility] Last Admin: 08/01/18 08:15 Dose: Not Given Enoxaparin Sodium (Lovenox) 40 mg SC DAILY [facility]; Protocol Last Admin: 08/01/18 08:13 Dose: 40 mg Folic Acid (Folic Acid) 1 mg NG DAILY [facility] Last Admin: 08/01/18 08:14 Dose: 1 mg Furosemide (Lasix) 40 mg IVP DAILY [facility] Last Admin: 08/01/18 08:14 Dose: 40 mg Lactic Acid (Lac-Hydrin 12% Lotion (225 G)) 1 applic TOP TID [facility] Last Admin: 08/01/18 12:41 Dose: 1 applic Pyridostigmine [place] (Mestinon Tab) 30 mg PO TID [facility] Last Admin: 08/01/18 12:42 Dose: 30 mg Spironolactone (Aldactone) 25 mg PO DAILY [facility] Last Admin: 08/01/18 08:15 Dose: 25 mg Thiamine HCl (Vitamin B1 Tab) 100 mg NG DAILY [facility] Last Admin: 08/01/18 08:15 Dose: 100 mg Physical Exam - Constitutional Appears: Non-toxic, No Acute Distress, Chronically Ill - Head Exam Head Exam: ATRAUMATIC, NORMAL INSPECTION, NORMOCEPHALIC - Eye Exam Eye Exam: EOMI, Normal appearance, PERRL Pupil Exam: NORMAL ACCOMODATION, PERRL - ENT Exam ENT Exam: Mucous Membranes Moist, Normal Exam - Neck Exam Neck exam: Positive for: Normal Inspection - Respiratory Exam Respiratory Exam: Decreased Breath Sounds, Clear to Auscultation Bilateral, Prolonged Expiratory Phase - Cardiovascular Exam Cardiovascular Exam: REGULAR RHYTHM, +S1, +S2 - GI/Abdominal Exam GI & Abdominal Exam: Normal Bowel Sounds, Soft. absent: Tenderness - Rectal Exam Rectal Exam: Deferred - Exam Exam: NORMAL INSPECTION - Extremities Exam Extremities exam: Positive for: normal inspection - Back Exam Back exam: absent: CVA tenderness (L), CVA tenderness (R), paraspinal tenderness - Neurological Exam Neurological exam: Alert, CN II-XII Intact, Normal Gait, Oriented x3, Reflexes Normal - Psychiatric Exam Psychiatric exam: Depressed - Skin Skin Exam: Dry, Intact, Normal Color, Warm Results - Vital Signs Recent Vital Signs: Last Vital Signs Temp 98.1 F 08/01/18 09:08 Pulse 75 08/01/18 09:08 Resp 20 08/01/18 09:08 BP 109/64 08/01/18 09:08 Pulse Ox 100 08/01/18 09:08 - Labs Result Diagrams: 07/31/18 06:55 08/01/18 06:00 Labs: Laboratory Results - last 24 hr 08/01/18 06:00 Sodium 137 Potassium 3.8 Chloride 102 Carbon Dioxide 28 Anion Gap 11 BUN 26 H Creatinine 1.2 Est GFR ( Amer) > 60 Est GFR (Non-Af Amer) 57 Random Glucose 123 H Calcium 8.4 Assessment & Plan (1) CHF (congestive heart failure) Status: Chronic (2) COPD (chronic obstructive pulmonary disease) with chronic bronchitis Status: Chronic Priority: High - Assessment and Plan (Free Text) Assessment: 88 yo Male with PMHx of HTN, HLD, COPD, pulmonary hypertension, HFpEF, s/p TAVR, Chronic A-fib (Eliquis on hold due to +FOBT?), recurrent pleural effusion, admitted to TCU for ongoing therapy s/p multiple recurrent pleural effusions No recent positive cultures Pulmonary following closely Repeat CXR ordered Hold IV antibiotics for now
--- NOTE | 2018-08-01 17:34 | CP.PCM.PN ---
Subjective - Date & Time of Evaluation Date of Evaluation: 08/01/18 Time of Evaluation: 22:22 - Subjective Subjective: Above noted Objective - Vital Signs/Intake and Output Vital Signs (last 24 hours): Temp Pulse Resp BP Pulse Ox 97.8 F 87 20 117/73 99 08/01/18 15:40 08/01/18 15:40 08/01/18 15:40 08/01/18 15:40 08/01/18 15:40 - Medications Medications: Current Medications Acetaminophen (Tylenol 650mg/20.3ml Solution Ud) 650 mg NG Q6 PRN PRN Reason: Fever>100.4F Acetazolamide (Diamox 250 Mg Tab) 250 mg PO DAILY [facility] Last Admin: 08/01/18 08:15 Dose: 250 mg Albuterol/Ipratropium (Duoneb 3 Mg/0.5 Mg (3 Ml) Ud) 3 ml INH RQID [facility] Last Admin: 08/01/18 15:10 Dose: 3 ml Aspirin (Ecotrin) 81 mg PO DAILY [facility] Last Admin: 08/01/18 08:14 Dose: 81 mg Atorvastatin Calcium (Lipitor) 20 mg PO HS [facility] Last Admin: 07/31/18 21:29 Dose: 20 mg Docusate Sodium (Colace) 100 mg PO BID [facility] Last Admin: 08/01/18 16:33 Dose: Not Given Enoxaparin Sodium (Lovenox) 40 mg SC DAILY [facility]; Protocol Last Admin: 08/01/18 08:13 Dose: 40 mg Folic Acid (Folic Acid) 1 mg NG DAILY [facility] Last Admin: 08/01/18 08:14 Dose: 1 mg Furosemide (Lasix) 40 mg IVP DAILY [facility] Last Admin: 08/01/18 08:14 Dose: 40 mg Lactic Acid (Lac-Hydrin 12% Lotion (225 G)) 1 applic TOP TID [facility] Last Admin: 08/01/18 16:32 Dose: 1 applic Pyridostigmine [place] (Mestinon Tab) 30 mg PO TID [facility] Last Admin: 08/01/18 16:33 Dose: 30 mg Spironolactone (Aldactone) 25 mg PO DAILY [facility] Last Admin: 08/01/18 08:15 Dose: 25 mg Thiamine HCl (Vitamin B1 Tab) 100 mg NG DAILY [facility] Last Admin: 08/01/18 08:15 Dose: 100 mg - Labs Labs: 07/31/18 06:55 08/01/18 06:00 - Respiratory Exam Respiratory Exam: NORMAL BREATHING PATTERN - Cardiovascular Exam Cardiovascular Exam: REGULAR RHYTHM - GI/Abdominal Exam GI & Abdominal Exam: Normal Bowel Sounds Assessment and Plan - Assessment and Plan (Free Text) Assessment: Deconditioning OOB PT Recurrent Pleural effusion etioliogy CHF diastolic / Pneumonia IR thoracentesis done [employer] notes appreciated Repeat CT scan one month S/P Acute Respiratory Failure Multi lobar pneumonia ( PNA ? CAP? ) Hx COPD COSA Smoker Pulmonary ID ABX antifungal Hx CHF Afib S/P TAVR LV fxn good Cardiology rate controlled anticoagulation Cellulitis RLE improved ABX Hx ANTHONY/ CKD Metabolic alkalosis improved Nephrology Chronic ETOH ?? HX Abdominal distention improved Colonic ileus ( recurrent ) + FOBT ?? [place] held etiol ?? 2 to L-S surgery pyridostigmine Hx LLE edema cellulitis ?? ecchymosis?? Endovascular consult ??? CT scan done no significant findings Hx Hyperkalemia 2 to Bactrim?? Hold NAMRATA Hx Hypokalemia Hyperkalemia HTN Prediabetes Hx Low back surgery (Severe Spinal Stenosis) Post operative illeus
[2018-08-02] MEDS: Albuterol-Ipratrop 3 mg / 0.5 (3 ml) UD INH SCH ×4 (07:09→19:23)
[2018-08-02] MEDS: Enoxaparin 40 mg Syringe SC SCH (08:11)
--- NOTE | 2018-08-02 10:39 | CP.PCM.PN ---
Subjective - Date & Time of Evaluation Date of Evaluation: 08/02/18 Time of Evaluation: 10:38 - Subjective Subjective: Patient awake and conscious feeling better Vital signs noted to be stable Objective - Vital Signs/Intake and Output Vital Signs (last 24 hours): Temp Pulse Resp BP Pulse Ox 98.0 F 81 20 109/69 97 08/02/18 07:55 08/02/18 07:55 08/02/18 07:55 08/02/18 08:11 08/02/18 07:55 - Medications Medications: Current Medications Acetaminophen (Tylenol 650mg/20.3ml Solution Ud) 650 mg NG Q6 PRN PRN Reason: Fever>100.4F Acetazolamide (Diamox 250 Mg Tab) 250 mg PO DAILY [facility] Last Admin: 08/02/18 08:13 Dose: 250 mg Albuterol/Ipratropium (Duoneb 3 Mg/0.5 Mg (3 Ml) Ud) 3 ml INH RQID [facility] Last Admin: 08/02/18 07:09 Dose: 3 ml Aspirin (Ecotrin) 81 mg PO DAILY [facility] Last Admin: 08/02/18 08:14 Dose: 81 mg Atorvastatin Calcium (Lipitor) 20 mg PO HS [facility] Last Admin: 08/01/18 21:20 Dose: 20 mg Docusate Sodium (Colace) 100 mg PO BID [facility] Last Admin: 08/02/18 08:12 Dose: 100 mg Enoxaparin Sodium (Lovenox) 40 mg SC DAILY [facility]; Protocol Last Admin: 08/02/18 08:11 Dose: 40 mg Folic Acid (Folic Acid) 1 mg NG DAILY [facility] Last Admin: 08/02/18 08:14 Dose: 1 mg Furosemide (Lasix) 40 mg IVP DAILY [facility] Last Admin: 08/02/18 08:11 Dose: 40 mg Lactic Acid (Lac-Hydrin 12% Lotion (225 G)) 1 applic TOP TID [facility] Last Admin: 08/02/18 08:12 Dose: 1 applic Pyridostigmine [place] (Mestinon Tab) 30 mg PO TID [facility] Last Admin: 08/02/18 08:13 Dose: 30 mg Spironolactone (Aldactone) 25 mg PO DAILY [facility] Last Admin: 08/02/18 08:14 Dose: 25 mg Thiamine HCl (Vitamin B1 Tab) 100 mg NG DAILY [facility] Last Admin: 08/02/18 08:13 Dose: 100 mg - Labs Labs: 07/31/18 06:55 08/01/18 06:00 - Constitutional Appears: No Acute Distress - Neck Exam Neck Exam: absent: Lymphadenopathy - Respiratory Exam Respiratory Exam: NORMAL BREATHING PATTERN - Cardiovascular Exam Cardiovascular Exam: absent: Gallop, JVD, Rubs - GI/Abdominal Exam GI & Abdominal Exam: Soft - Extremities Exam Extremities Exam: absent: Calf Tenderness - Back Exam Back Exam: absent: CVA tenderness (L), CVA tenderness (R) - Neurological Exam Neurological Exam: Alert - Psychiatric Exam Psychiatric exam: Normal Affect - Skin Skin Exam: absent: Cyanosis Assessment and Plan - Assessment and Plan (Free Text) Assessment: S/P acute respi failure PNA, ANTHONY recovered HTN, COPD CHF s/p TAVR Pleural effusion Recommendation Alkalemia corrected DC Diamox
--- NOTE | 2018-08-02 10:41 | CP.PCM.CON ---
History of Present Illness - History of Present Illness History of Present Illness: Follow up consultation after discharge from acute medicine. This 88 year old male was hospitalized with acute respiratory failure, intubated and mechanically ventilated. He did have pleural effusions (recurrent), LLL pneumonia, COPD and chronic atrial fibrillation. He responded to therapy with diuretics and required thoracentesis which resulted in transudative results. His progress was slow, but he was extubated and ultimately discharged to TCU. Past Patient History - Infectious Disease Hx of Infectious Diseases: None - Past Medical History & Family History Past Medical History?: Yes Past Family History: Reviewed and not pertinent - Past Social History Smoking Status: Former Smoker Chewing Tobacco Use: No Cigar Use: No Alcohol: > 2 Drinks/Day Drugs: Denies Home Situation {Lives}: With Family - CARDIAC Hx Atrial Fibrillation: Yes Hx Congestive Heart Failure: Yes Hx Hypercholesterolemia: Yes Hx Hypertension: Yes Hx Peripheral Edema: Yes - PULMONARY Hx Bronchitis: Yes Hx Chronic Obstructive Pulmonary Disease (COPD): Yes Hx Pneumonia: Yes - NEUROLOGICAL Hx Neurological Disorder: No - HEENT Hx HEENT Problems: No - RENAL Hx Chronic Kidney Disease: No - ENDOCRINE/METABOLIC Hx Endocrine Disorders: No - HEMATOLOGICAL/ONCOLOGICAL Hx Blood Disorders: No Hx Human Immunodeficiency Virus (HIV): No - INTEGUMENTARY Other/Comment: skin lesion recently removed from left infra-ocular area - MUSCULOSKELETAL/RHEUMATOLOGICAL Hx Falls: No Hx Gout: Yes Hx Unsteady Gait: Yes (ambulates with cane) - GASTROINTESTINAL Hx Gastrointestinal Disorders: No - GENITOURINARY/GYNECOLOGICAL Hx Genitourinary Disorders: No - PSYCHIATRIC Hx Psychophysiologic Disorder: No Hx Substance Use: No - SURGICAL HISTORY Hx Valve Replacement: Yes (TAVR) Other/Comment: Laminectomy L3-L5 05/15/2017 - ANESTHESIA Hx Anesthesia: Yes Hx Anesthesia Reactions: No Hx Malignant Hyperthermia: No Meds Allergies/Adverse Reactions: Allergies Allergy/AdvReac Type Severity Reaction Status Date / Time No Known Allergies Allergy Verified 07/30/18 14:03 - Medications Medications: Current Medications Acetaminophen (Tylenol 650mg/20.3ml Solution Ud) 650 mg NG Q6 PRN PRN Reason: Fever>100.4F Acetazolamide (Diamox 250 Mg Tab) 250 mg PO DAILY [facility] Last Admin: 08/02/18 08:13 Dose: 250 mg Albuterol/Ipratropium (Duoneb 3 Mg/0.5 Mg (3 Ml) Ud) 3 ml INH RQID [facility] Last Admin: 08/02/18 07:09 Dose: 3 ml Aspirin (Ecotrin) 81 mg PO DAILY [facility] Last Admin: 08/02/18 08:14 Dose: 81 mg Atorvastatin Calcium (Lipitor) 20 mg PO HS [facility] Last Admin: 08/01/18 21:20 Dose: 20 mg Docusate Sodium (Colace) 100 mg PO BID [facility] Last Admin: 08/02/18 08:12 Dose: 100 mg Enoxaparin Sodium (Lovenox) 40 mg SC DAILY [facility]; Protocol Last Admin: 08/02/18 08:11 Dose: 40 mg Folic Acid (Folic Acid) 1 mg NG DAILY [facility] Last Admin: 08/02/18 08:14 Dose: 1 mg Furosemide (Lasix) 40 mg IVP DAILY [facility] Last Admin: 08/02/18 08:11 Dose: 40 mg Lactic Acid (Lac-Hydrin 12% Lotion (225 G)) 1 applic TOP TID [facility] Last Admin: 08/02/18 08:12 Dose: 1 applic Pyridostigmine [place] (Mestinon Tab) 30 mg PO TID [facility] Last Admin: 08/02/18 08:13 Dose: 30 mg Spironolactone (Aldactone) 25 mg PO DAILY [facility] Last Admin: 08/02/18 08:14 Dose: 25 mg Thiamine HCl (Vitamin B1 Tab) 100 mg NG DAILY [facility] Last Admin: 08/02/18 08:13 Dose: 100 mg Physical Exam - Additional Findings Additional findings: Presently seated on the EOB comfortably. Awake , alert, oriented and cooperative. Neck is supple and trachea midline, no JVD. Pharynx pink and moist w/o exudate. Conjunctivae pink and non-icteric. No dullness on chest percussion, equal expansion. Breath sounds are diminished bilaterally w/o audible wheeze. Few scattered rhonchi in lower lobes bilaterally. Occasional dry basal rales, no bronchial breath sounds. heart sounds are very distant, irregular rhythm. No dependant edema, hyper-pigmented epidermis both ankles. Results - Vital Signs Recent Vital Signs: Last Vital Signs Temp 98.0 F 08/02/18 07:55 Pulse 81 08/02/18 07:55 Resp 20 08/02/18 07:55 BP 109/69 08/02/18 08:11 Pulse Ox 97 08/02/18 07:55 - Labs Result Diagrams: 07/31/18 06:55 08/01/18 06:00 Assessment & Plan (1) COPD (chronic obstructive pulmonary disease) Status: Chronic Priority: High (2) Pleural effusion, left Status: Resolved Priority: High (3) Pneumonia Status: Resolved Priority: High (4) Respiratory failure with hypoxia and hypercapnia Status: Resolved Priority: High - Assessment and Plan (Free Text) Plan: Continue current medical regimen. Fluid and sodium restriction. Physical therapy as tolerated on supplemental O2. Chest x-ray follow up. - Date & Time Date: 08/02/18 Time: 10:52
--- NOTE | 2018-08-02 14:26 | RAD ---
Date of service: 08/02/2018 HISTORY: pleural effusion COMPARISON: 07/26/2018 TECHNIQUE: Chest PA and lateral views FINDINGS: LUNGS: There improvement in the posterior left lower lobe infiltrate PLEURA: Small pleural effusions CARDIOVASCULAR: Aortic calcification Mild cardiomegaly no pulmonary vascular congestion. OSSEOUS STRUCTURES: No significant abnormalities. VISUALIZED UPPER ABDOMEN: Normal. OTHER FINDINGS: None. IMPRESSION: Improvement in posterior left lower lobe infiltrate
[2018-08-02] MEDS: Proshield Plus GEL TOP SCH (16:37)
--- NOTE | 2018-08-02 17:08 | CP.PCM.PN ---
Subjective - Date & Time of Evaluation Date of Evaluation: 08/02/18 Time of Evaluation: 22:22 - Subjective Subjective: Above noted Objective - Vital Signs/Intake and Output Vital Signs (last 24 hours): Temp Pulse Resp BP Pulse Ox 97.9 F 101 H 20 110/65 99 08/02/18 16:35 08/02/18 16:35 08/02/18 16:35 08/02/18 16:35 08/02/18 16:35 - Medications Medications: Current Medications Acetaminophen (Tylenol 650mg/20.3ml Solution Ud) 650 mg NG Q6 PRN PRN Reason: Fever>100.4F Albuterol/Ipratropium (Duoneb 3 Mg/0.5 Mg (3 Ml) Ud) 3 ml INH RQID [facility] Last Admin: 08/02/18 15:32 Dose: 3 ml Aspirin (Ecotrin) 81 mg PO DAILY [facility] Last Admin: 08/02/18 08:14 Dose: 81 mg Atorvastatin Calcium (Lipitor) 20 mg PO HS [facility] Last Admin: 08/01/18 21:20 Dose: 20 mg Dimethicone (Proshield Plus Skin Protectant) 1 applic TOP Q8 [facility] Last Admin: 08/02/18 16:37 Dose: 1 applic Docusate Sodium (Colace) 100 mg PO BID [facility] Last Admin: 08/02/18 16:31 Dose: 100 mg Enoxaparin Sodium (Lovenox) 40 mg SC DAILY [facility]; Protocol Last Admin: 08/02/18 08:11 Dose: 40 mg Folic Acid (Folic Acid) 1 mg NG DAILY [facility] Last Admin: 08/02/18 08:14 Dose: 1 mg Furosemide (Lasix) 40 mg PO BID [facility] Lactic Acid (Lac-Hydrin 12% Lotion (225 G)) 1 applic TOP TID [facility] Last Admin: 08/02/18 16:31 Dose: 1 applic Pyridostigmine [place] (Mestinon Tab) 30 mg PO TID [facility] Last Admin: 08/02/18 16:35 Dose: 30 mg Spironolactone (Aldactone) 25 mg PO DAILY [facility] Last Admin: 08/02/18 08:14 Dose: 25 mg Thiamine HCl (Vitamin B1 Tab) 100 mg NG DAILY [facility] Last Admin: 08/02/18 08:13 Dose: 100 mg - Labs Labs: 07/31/18 06:55 08/01/18 06:00 - Respiratory Exam Respiratory Exam: NORMAL BREATHING PATTERN - Cardiovascular Exam Cardiovascular Exam: Tachycardia, REGULAR RHYTHM - GI/Abdominal Exam GI & Abdominal Exam: Normal Bowel Sounds Assessment and Plan - Assessment and Plan (Free Text) Assessment: Deconditioning OOB PT Recurrent Pleural effusion etioliogy CHF diastolic / Pneumonia IR thoracentesis done Activities Therapist notes appreciated Repeat CT scan one month S/P Acute Respiratory Failure Multi lobar pneumonia ( PNA ? CAP? ) Hx COPD COSA Smoker Pulmonary ID ABX antifungal Hx CHF Afib S/P TAVR LV fxn good Cardiology rate controlled anticoagulation Cellulitis RLE improved ABX Hx ANTHONY/ CKD Metabolic alkalosis improved Nephrology Chronic ETOH ?? HX Abdominal distention improved Colonic ileus ( recurrent ) + FOBT ?? [place] held etiol ?? 2 to L-S surgery pyridostigmine Hx LLE edema cellulitis ?? ecchymosis?? Endovascular consult ??? CT scan done no significant findings Hx Hyperkalemia 2 to Bactrim?? Hold NAMRATA Hx Hypokalemia Hyperkalemia HTN Prediabetes Hx Low back surgery (Severe Spinal Stenosis) Post operative illeus
[2018-08-02 19:36] LABS: SQUAMOUS EPITHIAL < 1 /hpf (0-5); URINE BILIRUBIN NEGATIVE (NEGATIVE); URINE BLOOD NEGATIVE (NEGATIVE); URINE CLARITY CLEAR (Clear); URINE COLOR YELLOW (YELLOW); URINE GLUCOSE (UA) NEG (NEGATIVE); URINE LEUKOCYTE ESTERASE MOD Leu/uL (Negative); URINE PROTEIN NEGATIVE (NEGATIVE); URINE UROBILINOGEN 0.2-1.0 mg/dL (0.2-1.0)
[2018-08-03] MEDS: Proshield Plus GEL TOP SCH ×3 (01:00→17:01)
[2018-08-03] MEDS: Albuterol-Ipratrop 3 mg / 0.5 (3 ml) UD INH SCH ×4 (07:49→19:23)
[2018-08-03] MEDS: Enoxaparin 40 mg Syringe SC SCH (08:24)
--- NOTE | 2018-08-03 10:48 | CP.PCM.PN ---
Subjective - Date & Time of Evaluation Date of Evaluation: 08/03/18 Time of Evaluation: 10:38 - Subjective Subjective: Seen in the gym this morning. Seated in a chair, appears comfortable. Presently on room air, SpO2 88%. Claims to feel well. No dependant edema or cyanosis. No dullness on chest percussion. Breath sounds are diminished equally in both lungs. No audible wheezes or bronchial breath sounds. Rare dry rales in bases. Monitor CO2 level and resume Diamox if increasing. Continue current medical regimen. Objective - Vital Signs/Intake and Output Vital Signs (last 24 hours): Temp Pulse Resp BP Pulse Ox 98.0 F 90 20 100/64 97 08/02/18 20:49 08/02/18 20:49 08/02/18 20:49 08/03/18 08:24 08/02/18 20:49 - Medications Medications: Current Medications Acetaminophen (Tylenol 650mg/20.3ml Solution Ud) 650 mg NG Q6 PRN PRN Reason: Fever>100.4F Albuterol/Ipratropium (Duoneb 3 Mg/0.5 Mg (3 Ml) Ud) 3 ml INH RQID [facility] Last Admin: 08/03/18 07:49 Dose: 3 ml Aspirin (Ecotrin) 81 mg PO DAILY [facility] Last Admin: 08/03/18 08:25 Dose: 81 mg Atorvastatin Calcium (Lipitor) 20 mg PO HS [facility] Last Admin: 08/02/18 21:08 Dose: 20 mg Dimethicone (Proshield Plus Skin Protectant) 1 applic TOP Q8 [facility] Last Admin: 08/03/18 08:26 Dose: 1 applic Docusate Sodium (Colace) 100 mg PO BID [facility] Last Admin: 08/03/18 08:24 Dose: 100 mg Enoxaparin Sodium (Lovenox) 40 mg SC DAILY [facility]; Protocol Last Admin: 08/03/18 08:24 Dose: 40 mg Folic Acid (Folic Acid) 1 mg NG DAILY [facility] Last Admin: 08/03/18 08:25 Dose: 1 mg Furosemide (Lasix) 40 mg PO BID [facility] Last Admin: 08/03/18 08:24 Dose: 40 mg Lactic Acid (Lac-Hydrin 12% Lotion (225 G)) 1 applic TOP TID [facility] Last Admin: 08/03/18 08:24 Dose: 1 applic Pyridostigmine [place] (Mestinon Tab) 30 mg PO TID [facility] Last Admin: 08/03/18 08:25 Dose: 30 mg Spironolactone (Aldactone) 25 mg PO DAILY [facility] Last Admin: 08/03/18 08:25 Dose: 25 mg Thiamine HCl (Vitamin B1 Tab) 100 mg NG DAILY [facility] Last Admin: 08/03/18 08:24 Dose: 100 mg - Labs Labs: 07/31/18 06:55 08/01/18 06:00 Assessment and Plan (1) COPD (chronic obstructive pulmonary disease) Status: Chronic (2) Pleural effusion, left Status: Resolved (3) Pneumonia Status: Resolved (4) Respiratory failure with hypoxia and hypercapnia Status: Resolved
--- NOTE | 2018-08-03 21:07 | CP.PCM.PN ---
Subjective - Date & Time of Evaluation Date of Evaluation: 08/03/18 Time of Evaluation: 22:22 - Subjective Subjective: Above noted Objective - Vital Signs/Intake and Output Vital Signs (last 24 hours): Temp Pulse Resp BP Pulse Ox 98.0 F 80 20 108/66 99 08/03/18 20:36 08/03/18 20:36 08/03/18 20:36 08/03/18 20:36 08/03/18 20:36 - Medications Medications: Current Medications Acetaminophen (Tylenol 650mg/20.3ml Solution Ud) 650 mg NG Q6 PRN PRN Reason: Fever>100.4F Albuterol/Ipratropium (Duoneb 3 Mg/0.5 Mg (3 Ml) Ud) 3 ml INH RQID [facility] Last Admin: 08/03/18 19:23 Dose: 3 ml Aspirin (Ecotrin) 81 mg PO DAILY [facility] Last Admin: 08/03/18 08:25 Dose: 81 mg Atorvastatin Calcium (Lipitor) 20 mg PO HS [facility] Last Admin: 08/02/18 21:08 Dose: 20 mg Dimethicone (Proshield Plus Skin Protectant) 1 applic TOP Q8 [facility] Last Admin: 08/03/18 17:01 Dose: 1 applic Docusate Sodium (Colace) 100 mg PO BID [facility] Last Admin: 08/03/18 17:02 Dose: 100 mg Enoxaparin Sodium (Lovenox) 40 mg SC DAILY [facility]; Protocol Last Admin: 08/03/18 08:24 Dose: 40 mg Folic Acid (Folic Acid) 1 mg NG DAILY [facility] Last Admin: 08/03/18 08:25 Dose: 1 mg Furosemide (Lasix) 40 mg PO BID [facility] Last Admin: 08/03/18 17:01 Dose: 40 mg Lactic Acid (Lac-Hydrin 12% Lotion (225 G)) 1 applic TOP TID [facility] Last Admin: 08/03/18 17:02 Dose: 1 applic Pyridostigmine [place] (Mestinon Tab) 30 mg PO TID [facility] Last Admin: 08/03/18 17:01 Dose: 30 mg Spironolactone (Aldactone) 25 mg PO DAILY [facility] Last Admin: 08/03/18 08:25 Dose: 25 mg Thiamine HCl (Vitamin B1 Tab) 100 mg NG DAILY [facility] Last Admin: 08/03/18 08:24 Dose: 100 mg - Labs Labs: 07/31/18 06:55 08/01/18 06:00 - Respiratory Exam Respiratory Exam: NORMAL BREATHING PATTERN - Cardiovascular Exam Cardiovascular Exam: REGULAR RHYTHM - GI/Abdominal Exam GI & Abdominal Exam: Normal Bowel Sounds Assessment and Plan - Assessment and Plan (Free Text) Assessment: Deconditioning OOB PT Recurrent Pleural effusion etioliogy CHF diastolic / Pneumonia IR thoracentesis done [employer] Developer notes appreciated Repeat CT scan one month S/P Acute Respiratory Failure Multi lobar pneumonia ( PNA ? CAP? ) Hx COPD COSA Smoker Pulmonary ID ABX antifungal Hx CHF Afib S/P TAVR LV fxn good Cardiology rate controlled anticoagulation Cellulitis RLE improved ABX Hx ANTHONY/ CKD Metabolic alkalosis improved Nephrology Chronic ETOH ?? HX Abdominal distention improved Colonic ileus ( recurrent ) + FOBT ?? [place] held etiol ?? 2 to L-S surgery pyridostigmine Hx LLE edema cellulitis ?? ecchymosis?? Endovascular consult ??? CT scan done no significant findings Hx Hyperkalemia 2 to Bactrim?? Hold NAMRATA Hx Hypokalemia Hyperkalemia HTN Prediabetes Hx Low back surgery (Severe Spinal Stenosis) Post operative illeus
[2018-08-04 06:41] LABS: HEMOGLOBIN 10.3 g/dL (12.0-18.0); MEAN CELL VOLUME 88.8 fl (80.0-94.0); MEAN CORPUSCULAR HEMOGLOBIN 28.4 pg (27.0-31.0); RBC 3.63 Mil/uL (4.40-5.90); RED CELL DISTRIBUTION WIDTH 18.6 % (11.5-14.5); WHITE BLOOD COUNT 11.1 K/uL (4.8-10.8)
[2018-08-04] MEDS: Albuterol-Ipratrop 3 mg / 0.5 (3 ml) UD INH SCH ×4 (07:31→19:03)
[2018-08-04] MEDS: Enoxaparin 40 mg Syringe SC SCH (08:24)
[2018-08-04] MEDS: Proshield Plus GEL TOP SCH ×2 (08:25→17:06)
[2018-08-04 08:28] LABS: BLOOD UREA NITROGEN 24 mg/dl (9-20); CALCIUM 8.3 mg/dL (8.4-10.2); GFR NON-AFRICAN AMERICAN > 60
--- NOTE | 2018-08-04 11:12 | CP.PCM.PN ---
Subjective - Date & Time of Evaluation Date of Evaluation: 08/04/18 Time of Evaluation: 11:11 - Subjective Subjective: Patient is awake and conscious Vital signs stable Objective - Vital Signs/Intake and Output Vital Signs (last 24 hours): Temp Pulse Resp BP Pulse Ox 97.6 F 86 18 120/72 98 08/04/18 08:13 08/04/18 08:13 08/04/18 08:13 08/04/18 08:27 08/04/18 08:13 - Medications Medications: Current Medications Acetaminophen (Tylenol 650mg/20.3ml Solution Ud) 650 mg NG Q6 PRN PRN Reason: Fever>100.4F Albuterol/Ipratropium (Duoneb 3 Mg/0.5 Mg (3 Ml) Ud) 3 ml INH RQID [facility] Last Admin: 08/04/18 10:59 Dose: 3 ml Aspirin (Ecotrin) 81 mg PO DAILY [facility] Last Admin: 08/04/18 08:27 Dose: 81 mg Atorvastatin Calcium (Lipitor) 20 mg PO HS [facility] Last Admin: 08/03/18 21:25 Dose: 20 mg Dimethicone (Proshield Plus Skin Protectant) 1 applic TOP Q8 [facility] Last Admin: 08/04/18 08:25 Dose: 1 applic Docusate Sodium (Colace) 100 mg PO BID [facility] Last Admin: 08/04/18 08:27 Dose: 100 mg Enoxaparin Sodium (Lovenox) 40 mg SC DAILY [facility]; Protocol Last Admin: 08/04/18 08:24 Dose: 40 mg Folic Acid (Folic Acid) 1 mg NG DAILY [facility] Last Admin: 08/04/18 08:28 Dose: 1 mg Furosemide (Lasix) 40 mg PO BID [facility] Last Admin: 08/04/18 08:27 Dose: 40 mg Lactic Acid (Lac-Hydrin 12% Lotion (225 G)) 1 applic TOP TID [facility] Last Admin: 08/04/18 08:27 Dose: 1 applic Pyridostigmine [place] (Mestinon Tab) 30 mg PO TID [facility] Last Admin: 08/04/18 08:25 Dose: 30 mg Spironolactone (Aldactone) 25 mg PO DAILY [facility] Last Admin: 08/04/18 08:25 Dose: 25 mg Thiamine HCl (Vitamin B1 Tab) 100 mg NG DAILY [facility] Last Admin: 08/04/18 08:26 Dose: 100 mg - Labs Labs: 08/04/18 05:10 08/04/18 05:10 - Constitutional Appears: No Acute Distress - Eye Exam Eye Exam: Conjunctival injection - ENT Exam ENT Exam: Mucous Membranes Moist - Cardiovascular Exam Cardiovascular Exam: absent: Gallop, JVD, Rubs - GI/Abdominal Exam GI & Abdominal Exam: Soft, Normal Bowel Sounds - Extremities Exam Extremities Exam: absent: Calf Tenderness - Back Exam Back Exam: absent: CVA tenderness (L), CVA tenderness (R) - Neurological Exam Neurological Exam: Alert - Skin Skin Exam: absent: Cyanosis Assessment and Plan - Assessment and Plan (Free Text) Assessment: S/P acute respi failure PNA, S/P ANTHONY recovered HTN, COPD CHF s/p TAVR Pleural effusion Recommendation Alkalemia corrected Patient receiving diuretics As noted per pulmonary
--- NOTE | 2018-08-04 17:56 | CP.PCM.PN ---
Subjective - Date & Time of Evaluation Date of Evaluation: 08/04/18 Time of Evaluation: 22:22 - Subjective Subjective: Above noted Objective - Vital Signs/Intake and Output Vital Signs (last 24 hours): Temp Pulse Resp BP Pulse Ox 97.8 F 78 20 113/70 99 08/04/18 15:49 08/04/18 15:49 08/04/18 15:49 08/04/18 17:04 08/04/18 15:49 - Medications Medications: Current Medications Acetaminophen (Tylenol 650mg/20.3ml Solution Ud) 650 mg NG Q6 PRN PRN Reason: Fever>100.4F Albuterol/Ipratropium (Duoneb 3 Mg/0.5 Mg (3 Ml) Ud) 3 ml INH RQID [facility] Last Admin: 08/04/18 15:31 Dose: 3 ml Aspirin (Ecotrin) 81 mg PO DAILY [facility] Last Admin: 08/04/18 08:27 Dose: 81 mg Atorvastatin Calcium (Lipitor) 20 mg PO HS [facility] Last Admin: 08/03/18 21:25 Dose: 20 mg Dimethicone (Proshield Plus Skin Protectant) 1 applic TOP Q8 [facility] Last Admin: 08/04/18 17:06 Dose: 1 applic Docusate Sodium (Colace) 100 mg PO BID [facility] Last Admin: 08/04/18 17:04 Dose: 100 mg Enoxaparin Sodium (Lovenox) 40 mg SC DAILY [facility]; Protocol Last Admin: 08/04/18 08:24 Dose: 40 mg Folic Acid (Folic Acid) 1 mg NG DAILY [facility] Last Admin: 08/04/18 08:28 Dose: 1 mg Furosemide (Lasix) 40 mg PO BID [facility] Last Admin: 08/04/18 17:04 Dose: 40 mg Lactic Acid (Lac-Hydrin 12% Lotion (225 G)) 1 applic TOP TID [facility] Last Admin: 08/04/18 17:06 Dose: 1 applic Pyridostigmine [place] (Mestinon Tab) 30 mg PO TID [facility] Last Admin: 08/04/18 17:04 Dose: 30 mg Spironolactone (Aldactone) 25 mg PO DAILY [facility] Last Admin: 08/04/18 08:25 Dose: 25 mg Thiamine HCl (Vitamin B1 Tab) 100 mg NG DAILY [facility] Last Admin: 08/04/18 08:26 Dose: 100 mg - Labs Labs: 08/04/18 05:10 08/04/18 05:10 - Respiratory Exam Respiratory Exam: NORMAL BREATHING PATTERN - Cardiovascular Exam Cardiovascular Exam: REGULAR RHYTHM - GI/Abdominal Exam GI & Abdominal Exam: Normal Bowel Sounds Assessment and Plan - Assessment and Plan (Free Text) Assessment: Deconditioning OOB PT Recurrent Pleural effusion etioliogy CHF diastolic / Pneumonia IR thoracentesis done [employer] Room Attendant notes appreciated Repeat CT scan one month S/P Acute Respiratory Failure Multi lobar pneumonia ( PNA ? CAP? ) Hx COPD COSA Smoker Pulmonary ID ABX antifungal Hx CHF Afib S/P TAVR LV fxn good Cardiology rate controlled anticoagulation Cellulitis RLE improved ABX Hx ANTHONY/ CKD Metabolic alkalosis improved Nephrology Chronic ETOH ?? HX Abdominal distention improved Colonic ileus ( recurrent ) + FOBT ?? [place] held etiol ?? 2 to L-S surgery pyridostigmine Hx LLE edema cellulitis ?? ecchymosis?? Endovascular consult ??? CT scan done no significant findings Hx Hyperkalemia 2 to Bactrim?? Hold NAMRATA Hx Hypokalemia Hyperkalemia HTN Prediabetes Hx Low back surgery (Severe Spinal Stenosis) Post operative illeus
[2018-08-05] MEDS: Proshield Plus GEL TOP SCH ×3 (00:05→17:32)
[2018-08-05] MEDS: Albuterol-Ipratrop 3 mg / 0.5 (3 ml) UD INH SCH ×4 (07:26→19:01)
[2018-08-05] MEDS: Enoxaparin 40 mg Syringe SC SCH (08:01)
--- NOTE | 2018-08-05 11:22 | CP.PCM.PN ---
Subjective - Date & Time of Evaluation Date of Evaluation: 08/05/18 Time of Evaluation: 11:20 - Subjective Subjective: Appears comfortable at rest. Presently sleeping, awakens readily. Offers no complaints. SpO2 98% with 2LPM NC. Breath sounds are diminished bilaterally, equally, but present in both lower lobes. No audible wheezing or bronchial breathing. Few scattered dry rales in bases. Will follow up with repeat CXR today. Objective - Vital Signs/Intake and Output Vital Signs (last 24 hours): Temp Pulse Resp BP Pulse Ox 98.5 F 80 20 117/66 98 08/05/18 07:49 08/05/18 07:49 08/05/18 07:49 08/05/18 08:02 08/05/18 07:49 - Medications Medications: Current Medications Acetaminophen (Tylenol 650mg/20.3ml Solution Ud) 650 mg NG Q6 PRN PRN Reason: Fever>100.4F Albuterol/Ipratropium (Duoneb 3 Mg/0.5 Mg (3 Ml) Ud) 3 ml INH RQID [facility] Last Admin: 08/05/18 11:06 Dose: 3 ml Aspirin (Ecotrin) 81 mg PO DAILY [facility] Last Admin: 08/05/18 08:01 Dose: 81 mg Atorvastatin Calcium (Lipitor) 20 mg PO HS [facility] Last Admin: 08/04/18 21:06 Dose: 20 mg Dimethicone (Proshield Plus Skin Protectant) 1 applic TOP Q8 [facility] Last Admin: 08/05/18 08:06 Dose: 1 applic Docusate Sodium (Colace) 100 mg PO BID [facility] Last Admin: 08/05/18 08:02 Dose: 100 mg Folic Acid (Folic Acid) 1 mg NG DAILY [facility] Last Admin: 08/05/18 08:01 Dose: 1 mg Furosemide (Lasix) 40 mg PO BID [facility] Last Admin: 08/05/18 08:02 Dose: 40 mg Lactic Acid (Lac-Hydrin 12% Lotion (225 G)) 1 applic TOP TID [facility] Last Admin: 08/05/18 08:05 Dose: 1 applic Pyridostigmine [place] (Mestinon Tab) 30 mg PO TID [facility] Last Admin: 08/05/18 08:02 Dose: 30 mg Spironolactone (Aldactone) 25 mg PO DAILY [facility] Last Admin: 08/05/18 08:02 Dose: 25 mg Thiamine HCl (Vitamin B1 Tab) 100 mg NG DAILY [facility] Last Admin: 08/05/18 08:02 Dose: 100 mg - Labs Labs: 08/04/18 05:10 08/04/18 05:10 Assessment and Plan (1) COPD (chronic obstructive pulmonary disease) Status: Chronic (2) Pleural effusion, left Status: Resolved (3) Pneumonia Status: Resolved (4) Respiratory failure with hypoxia and hypercapnia Status: Resolved
--- NOTE | 2018-08-05 11:47 | CP.PCM.PN ---
Subjective - Date & Time of Evaluation Date of Evaluation: 08/05/18 Time of Evaluation: 11:46 - Subjective Subjective: doing well , PT no c/o Objective - Vital Signs/Intake and Output Vital Signs (last 24 hours): Temp Pulse Resp BP Pulse Ox 98.5 F 80 20 117/66 98 08/05/18 07:49 08/05/18 07:49 08/05/18 07:49 08/05/18 08:02 08/05/18 07:49 - Medications Medications: Current Medications Acetaminophen (Tylenol 650mg/20.3ml Solution Ud) 650 mg NG Q6 PRN PRN Reason: Fever>100.4F Albuterol/Ipratropium (Duoneb 3 Mg/0.5 Mg (3 Ml) Ud) 3 ml INH RQID [facility] Last Admin: 08/05/18 11:06 Dose: 3 ml Aspirin (Ecotrin) 81 mg PO DAILY [facility] Last Admin: 08/05/18 08:01 Dose: 81 mg Atorvastatin Calcium (Lipitor) 20 mg PO HS [facility] Last Admin: 08/04/18 21:06 Dose: 20 mg Dimethicone (Proshield Plus Skin Protectant) 1 applic TOP Q8 [facility] Last Admin: 08/05/18 08:06 Dose: 1 applic Docusate Sodium (Colace) 100 mg PO BID [facility] Last Admin: 08/05/18 08:02 Dose: 100 mg Folic Acid (Folic Acid) 1 mg NG DAILY [facility] Last Admin: 08/05/18 08:01 Dose: 1 mg Furosemide (Lasix) 40 mg PO BID [facility] Last Admin: 08/05/18 08:02 Dose: 40 mg Lactic Acid (Lac-Hydrin 12% Lotion (225 G)) 1 applic TOP TID [facility] Last Admin: 08/05/18 08:05 Dose: 1 applic Pyridostigmine [place] (Mestinon Tab) 30 mg PO TID [facility] Last Admin: 08/05/18 08:02 Dose: 30 mg Spironolactone (Aldactone) 25 mg PO DAILY [facility] Last Admin: 08/05/18 08:02 Dose: 25 mg Thiamine HCl (Vitamin B1 Tab) 100 mg NG DAILY [facility] Last Admin: 08/05/18 08:02 Dose: 100 mg - Labs Labs: 08/04/18 05:10 08/04/18 05:10 - Neck Exam Neck Exam: Normal Inspection - Respiratory Exam Respiratory Exam: Decreased Breath Sounds - Cardiovascular Exam Cardiovascular Exam: Irregular Rhythm, REGULAR RHYTHM - GI/Abdominal Exam GI & Abdominal Exam: Normal Bowel Sounds - Extremities Exam Extremities Exam: Normal Inspection Assessment and Plan - Assessment and Plan (Free Text) Assessment: Stable on PO diuretics Labs OK Tolerating PT
--- NOTE | 2018-08-05 15:54 | RAD ---
Date of service: 08/05/2018 HISTORY: Pleural effusion COMPARISON: 08/02/2018. TECHNIQUE: Chest PA and lateral FINDINGS: LINES AND TUBES: None. LUNG AND PLEURA: The lungs are hyperinflated and there is peribronchial thickening with chronic changes in both lungs. Suspect small effusions. No pneumothorax. HEART AND MEDIASTINUM: There is persistent moderate cardiomegaly. There are aortic atherosclerotic calcifications present. There is a prosthetic aortic valve. The hilar and mediastinal contours are within normal limits. SKELETAL STRUCTURES: The bony structures are within normal limits for the patient's age. VISUALIZED UPPER ABDOMEN: Normal. OTHER FINDINGS: None. IMPRESSION: Suspect small effusions. No acute findings.
--- NOTE | 2018-08-05 20:52 | CP.PCM.PN ---
Subjective - Date & Time of Evaluation Date of Evaluation: 08/05/18 Time of Evaluation: 22:22 - Subjective Subjective: Above noted Extended discussion with family ADR reviewed family to consider Objective - Vital Signs/Intake and Output Vital Signs (last 24 hours): Temp Pulse Resp BP Pulse Ox 98.1 F 83 20 120/66 100 08/05/18 19:30 08/05/18 19:30 08/05/18 19:30 08/05/18 19:30 08/05/18 19:30 - Medications Medications: Current Medications Acetaminophen (Tylenol 650mg/20.3ml Solution Ud) 650 mg NG Q6 PRN PRN Reason: Fever>100.4F Albuterol/Ipratropium (Duoneb 3 Mg/0.5 Mg (3 Ml) Ud) 3 ml INH RQID [facility] Last Admin: 08/05/18 19:01 Dose: 3 ml Aspirin (Ecotrin) 81 mg PO DAILY [facility] Last Admin: 08/05/18 08:01 Dose: 81 mg Atorvastatin Calcium (Lipitor) 20 mg PO HS [facility] Last Admin: 08/04/18 21:06 Dose: 20 mg Dimethicone (Proshield Plus Skin Protectant) 1 applic TOP Q8 [facility] Last Admin: 08/05/18 17:32 Dose: 1 applic Docusate Sodium (Colace) 100 mg PO BID [facility] Last Admin: 08/05/18 17:32 Dose: 100 mg Folic Acid (Folic Acid) 1 mg NG DAILY [facility] Last Admin: 08/05/18 08:01 Dose: 1 mg Furosemide (Lasix) 40 mg PO BID [facility] Last Admin: 08/05/18 17:32 Dose: 40 mg Lactic Acid (Lac-Hydrin 12% Lotion (225 G)) 1 applic TOP TID [facility] Last Admin: 08/05/18 17:33 Dose: Not Given Pyridostigmine [place] (Mestinon Tab) 30 mg PO TID [facility] Last Admin: 08/05/18 17:32 Dose: 30 mg Spironolactone (Aldactone) 25 mg PO DAILY [facility] Last Admin: 08/05/18 08:02 Dose: 25 mg Thiamine HCl (Vitamin B1 Tab) 100 mg NG DAILY [facility] Last Admin: 08/05/18 08:02 Dose: 100 mg - Labs Labs: 08/04/18 05:10 08/04/18 05:10 - Respiratory Exam Respiratory Exam: NORMAL BREATHING PATTERN - Cardiovascular Exam Cardiovascular Exam: REGULAR RHYTHM - GI/Abdominal Exam GI & Abdominal Exam: Normal Bowel Sounds Assessment and Plan - Assessment and Plan (Free Text) Assessment: Deconditioning OOB PT Recurrent Pleural effusion etioliogy CHF diastolic / Pneumonia IR thoracentesis done Cloth Printer notes appreciated Repeat CT scan one month S/P Acute Respiratory Failure Multi lobar pneumonia ( PNA ? CAP? ) Hx COPD COSA Smoker Pulmonary ID ABX antifungal Hx CHF Afib S/P TAVR LV fxn good Cardiology rate controlled anticoagulation Cellulitis RLE improved ABX Hx ANTHONY/ CKD Metabolic alkalosis improved Nephrology Chronic ETOH ?? HX Abdominal distention improved Colonic ileus ( recurrent ) + FOBT ?? [place] held etiol ?? 2 to L-S surgery pyridostigmine Hx LLE edema cellulitis ?? ecchymosis?? Endovascular consult ??? CT scan done no significant findings Hx Hyperkalemia 2 to Bactrim?? Hold NAMRATA Hx Hypokalemia Hyperkalemia HTN Prediabetes Hx Low back surgery (Severe Spinal Stenosis) Post operative illeus
[2018-08-06] MEDS: Proshield Plus GEL TOP SCH ×4 (00:14→17:09)
[2018-08-06 06:31] LABS: BLOOD UREA NITROGEN 20 mg/dl (9-20); CALCIUM 8.3 mg/dL (8.4-10.2); GFR NON-AFRICAN AMERICAN > 60
[2018-08-06] MEDS: Albuterol-Ipratrop 3 mg / 0.5 (3 ml) UD INH SCH ×3 (08:41→15:05)
--- NOTE | 2018-08-06 13:17 | CP.PCM.PN ---
Subjective - Date & Time of Evaluation Date of Evaluation: 08/06/18 Time of Evaluation: 09:00 - Subjective Subjective: doing well thus far no re-accumulation of effusions afebrile Objective - Vital Signs/Intake and Output Vital Signs (last 24 hours): Temp Pulse Resp BP Pulse Ox 98.2 F 73 20 112/65 98 08/06/18 08:27 08/06/18 08:27 08/06/18 08:27 08/06/18 08:52 08/06/18 08:27 - Medications Medications: Current Medications Acetaminophen (Tylenol 650mg/20.3ml Solution Ud) 650 mg NG Q6 PRN PRN Reason: Fever>100.4F Albuterol/Ipratropium (Duoneb 3 Mg/0.5 Mg (3 Ml) Ud) 3 ml INH RQID [facility] Last Admin: 08/06/18 11:54 Dose: 3 ml Aspirin (Ecotrin) 81 mg PO DAILY [facility] Last Admin: 08/06/18 08:51 Dose: 81 mg Atorvastatin Calcium (Lipitor) 20 mg PO HS [facility] Last Admin: 08/05/18 21:00 Dose: 20 mg Dimethicone (Proshield Plus Skin Protectant) 1 applic TOP Q8 [facility] Last Admin: 08/06/18 08:56 Dose: 1 applic Docusate Sodium (Colace) 100 mg PO BID [facility] Last Admin: 08/06/18 08:51 Dose: 100 mg Folic Acid (Folic Acid) 1 mg NG DAILY [facility] Last Admin: 08/06/18 08:51 Dose: 1 mg Furosemide (Lasix) 40 mg PO BID [facility] Last Admin: 08/06/18 08:52 Dose: 40 mg Lactic Acid (Lac-Hydrin 12% Lotion (225 G)) 1 applic TOP TID [facility] Last Admin: 08/06/18 13:01 Dose: 1 applic Pyridostigmine [place] (Mestinon Tab) 30 mg PO TID [facility] Last Admin: 08/06/18 13:00 Dose: 30 mg Spironolactone (Aldactone) 25 mg PO DAILY [facility] Last Admin: 08/06/18 08:51 Dose: 25 mg Thiamine HCl (Vitamin B1 Tab) 100 mg NG DAILY [facility] Last Admin: 08/06/18 08:52 Dose: 100 mg - Labs Labs: 08/04/18 05:10 08/06/18 05:45 - Constitutional Appears: Non-toxic, No Acute Distress, Chronically Ill - Head Exam Head Exam: ATRAUMATIC, NORMAL INSPECTION, NORMOCEPHALIC - Eye Exam Eye Exam: EOMI, Normal appearance, PERRL Pupil Exam: NORMAL ACCOMODATION, PERRL - ENT Exam ENT Exam: Mucous Membranes Moist, Normal Exam - Neck Exam Neck Exam: Full ROM, Normal Inspection. absent: Lymphadenopathy - Respiratory Exam Respiratory Exam: Clear to Ausculation Bilateral, NORMAL BREATHING PATTERN - Cardiovascular Exam Cardiovascular Exam: REGULAR RHYTHM, +S1, +S2. absent: Murmur - GI/Abdominal Exam GI & Abdominal Exam: Soft, Normal Bowel Sounds. absent: Tenderness - Rectal Exam Rectal Exam: Deferred - Exam Exam: NORMAL INSPECTION - Extremities Exam Extremities Exam: Full ROM, Normal Capillary Refill, Normal Inspection. absent: Joint Swelling, Pedal Edema - Back Exam Back Exam: NORMAL INSPECTION - Neurological Exam Neurological Exam: Alert, Awake, CN II-XII Intact, Oriented x3. 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
--- NOTE | 2018-08-06 13:49 | CP.PCM.PN ---
Subjective - Date & Time of Evaluation Date of Evaluation: 08/06/18 Time of Evaluation: 13:48 - Subjective Subjective: Patient awake and doing much better Vital signs stable Objective - Vital Signs/Intake and Output Vital Signs (last 24 hours): Temp Pulse Resp BP Pulse Ox 98.2 F 73 20 112/65 98 08/06/18 08:27 08/06/18 08:27 08/06/18 08:27 08/06/18 08:52 08/06/18 08:27 - Medications Medications: Current Medications Acetaminophen (Tylenol 650mg/20.3ml Solution Ud) 650 mg NG Q6 PRN PRN Reason: Fever>100.4F Albuterol/Ipratropium (Duoneb 3 Mg/0.5 Mg (3 Ml) Ud) 3 ml INH RQID [facility] Last Admin: 08/06/18 11:54 Dose: 3 ml Aspirin (Ecotrin) 81 mg PO DAILY [facility] Last Admin: 08/06/18 08:51 Dose: 81 mg Atorvastatin Calcium (Lipitor) 20 mg PO HS [facility] Last Admin: 08/05/18 21:00 Dose: 20 mg Dimethicone (Proshield Plus Skin Protectant) 1 applic TOP Q8 [facility] Last Admin: 08/06/18 08:56 Dose: 1 applic Docusate Sodium (Colace) 100 mg PO BID [facility] Last Admin: 08/06/18 08:51 Dose: 100 mg Folic Acid (Folic Acid) 1 mg NG DAILY [facility] Last Admin: 08/06/18 08:51 Dose: 1 mg Furosemide (Lasix) 40 mg PO BID [facility] Last Admin: 08/06/18 08:52 Dose: 40 mg Lactic Acid (Lac-Hydrin 12% Lotion (225 G)) 1 applic TOP TID [facility] Last Admin: 08/06/18 13:01 Dose: 1 applic Pyridostigmine [place] (Mestinon Tab) 30 mg PO TID [facility] Last Admin: 08/06/18 13:00 Dose: 30 mg Spironolactone (Aldactone) 25 mg PO DAILY [facility] Last Admin: 08/06/18 08:51 Dose: 25 mg Thiamine HCl (Vitamin B1 Tab) 100 mg NG DAILY [facility] Last Admin: 08/06/18 08:52 Dose: 100 mg - Labs Labs: 08/04/18 05:10 08/06/18 05:45 - Constitutional Appears: No Acute Distress - Eye Exam Eye Exam: Conjunctival injection - ENT Exam ENT Exam: Mucous Membranes Moist - Neck Exam Neck Exam: absent: Lymphadenopathy - Respiratory Exam Respiratory Exam: NORMAL BREATHING PATTERN. absent: Chest Wall Tenderness - Cardiovascular Exam Cardiovascular Exam: absent: Gallop, Rubs - GI/Abdominal Exam GI & Abdominal Exam: Soft, Normal Bowel Sounds - Extremities Exam Extremities Exam: absent: Calf Tenderness - Back Exam Back Exam: absent: CVA tenderness (L), CVA tenderness (R) - Neurological Exam Neurological Exam: Alert - Psychiatric Exam Psychiatric exam: Normal Affect - Skin Skin Exam: absent: Cyanosis Assessment and Plan - Assessment and Plan (Free Text) Assessment: S/P acute respi failure PNA, S/P ANTHONY recovered HTN, COPD CHF s/p TAVR Pleural effusion appeared to be subsided and improving Recommendation Alkalemia corrected Patient receiving diuretics and antibiotics CO2 stable no need for Diamox at this point
--- NOTE | 2018-08-06 18:50 | CP.PCM.PN ---
Subjective - Date & Time of Evaluation Date of Evaluation: 08/06/18 Time of Evaluation: 22:22 - Subjective Subjective: Above noted Further extended discussion with staff and family Objective - Vital Signs/Intake and Output Vital Signs (last 24 hours): Temp Pulse Resp BP Pulse Ox 98.0 F 103 H 20 112/64 97 08/06/18 16:06 08/06/18 16:06 08/06/18 16:06 08/06/18 17:07 08/06/18 16:06 - Medications Medications: Current Medications Acetaminophen (Tylenol 650mg/20.3ml Solution Ud) 650 mg NG Q6 PRN PRN Reason: Fever>100.4F Aspirin (Ecotrin) 81 mg PO DAILY [facility] Last Admin: 08/06/18 08:51 Dose: 81 mg Atorvastatin Calcium (Lipitor) 20 mg PO HS [facility] Last Admin: 08/05/18 21:00 Dose: 20 mg Dimethicone (Proshield Plus Skin Protectant) 1 applic TOP Q8 [facility] Last Admin: 08/06/18 17:09 Dose: 1 applic Docusate Sodium (Colace) 100 mg PO BID [facility] Last Admin: 08/06/18 17:07 Dose: 100 mg Folic Acid (Folic Acid) 1 mg NG DAILY [facility] Last Admin: 08/06/18 08:51 Dose: 1 mg Furosemide (Lasix) 40 mg PO BID [facility] Last Admin: 08/06/18 17:07 Dose: 40 mg Lactic Acid (Lac-Hydrin 12% Lotion (225 G)) 1 applic TOP TID [facility] Last Admin: 08/06/18 17:08 Dose: 1 applic Pyridostigmine [place] (Mestinon Tab) 30 mg PO TID [facility] Last Admin: 08/06/18 17:08 Dose: 30 mg Spironolactone (Aldactone) 25 mg PO DAILY [facility] Last Admin: 08/06/18 08:51 Dose: 25 mg Thiamine HCl (Vitamin B1 Tab) 100 mg NG DAILY [facility] Last Admin: 08/06/18 08:52 Dose: 100 mg - Labs Labs: 08/04/18 05:10 08/06/18 05:45 - Respiratory Exam Respiratory Exam: NORMAL BREATHING PATTERN - Cardiovascular Exam Cardiovascular Exam: REGULAR RHYTHM - GI/Abdominal Exam GI & Abdominal Exam: Normal Bowel Sounds Assessment and Plan - Assessment and Plan (Free Text) Assessment: Deconditioning OOB PT Recurrent Pleural effusion etioliogy CHF diastolic / Pneumonia IR thoracentesis done Well Blower notes appreciated Repeat CT scan one month S/P Acute Respiratory Failure Multi lobar pneumonia ( PNA ? CAP? ) Hx COPD COSA Smoker Pulmonary ID ABX antifungal Hx CHF Afib S/P TAVR LV fxn good Cardiology rate controlled anticoagulation Cellulitis RLE improved ABX Hx ANTHONY/ CKD Metabolic alkalosis improved Nephrology Chronic ETOH ?? HX Abdominal distention improved Colonic ileus ( recurrent ) + FOBT ?? [place] held etiol ?? 2 to L-S surgery pyridostigmine Hx LLE edema cellulitis ?? ecchymosis?? Endovascular consult ??? CT scan done no significant findings Hx Hyperkalemia 2 to Bactrim?? Hold NAMRATA Hx Hypokalemia Hyperkalemia HTN Prediabetes Hx Low back surgery (Severe Spinal Stenosis) Post operative illeus
[2018-08-07] MEDS: Proshield Plus GEL TOP SCH ×3 (01:53→16:58)
[2018-08-08] MEDS: Proshield Plus GEL TOP SCH ×3 (00:01→16:28)
--- NOTE | 2018-08-08 15:13 | CP.PCM.PN ---
Subjective - Date & Time of Evaluation Date of Evaluation: 08/08/18 Time of Evaluation: 22:22 - Subjective Subjective: Above noted Objective - Vital Signs/Intake and Output Vital Signs (last 24 hours): Temp Pulse Resp BP Pulse Ox 98.1 F 68 20 112/70 97 08/08/18 08:01 08/08/18 08:01 08/08/18 08:01 08/08/18 08:58 08/08/18 08:01 - Medications Medications: Current Medications Acetaminophen (Tylenol 650mg/20.3ml Solution Ud) 650 mg NG Q6 PRN PRN Reason: Fever>100.4F Aspirin (Ecotrin) 81 mg PO DAILY [facility] Last Admin: 08/08/18 08:58 Dose: 81 mg Atorvastatin Calcium (Lipitor) 20 mg PO HS [facility] Last Admin: 08/07/18 21:00 Dose: 20 mg Dimethicone (Proshield Plus Skin Protectant) 1 applic TOP Q8 [facility] Last Admin: 08/08/18 08:58 Dose: 1 applic Docusate Sodium (Colace) 100 mg PO BID [facility] Last Admin: 08/08/18 08:57 Dose: 100 mg Enoxaparin Sodium (Lovenox) 40 mg SC DAILY@1600 [facility]; Protocol Folic Acid (Folic Acid) 1 mg NG DAILY [facility] Last Admin: 08/08/18 08:58 Dose: 1 mg Furosemide (Lasix) 40 mg PO BID [facility] Last Admin: 08/08/18 08:58 Dose: 40 mg Lactic Acid (Lac-Hydrin 12% Lotion (225 G)) 1 applic TOP TID [facility] Last Admin: 08/08/18 13:13 Dose: 1 applic Pyridostigmine [place] (Mestinon Tab) 30 mg PO TID [facility] Last Admin: 08/08/18 13:13 Dose: 30 mg Spironolactone (Aldactone) 25 mg PO DAILY [facility] Last Admin: 08/08/18 08:57 Dose: 25 mg Thiamine HCl (Vitamin B1 Tab) 100 mg NG DAILY [facility] Last Admin: 08/08/18 08:59 Dose: 100 mg - Labs Labs: 08/04/18 05:10 08/06/18 05:45 - Respiratory Exam Respiratory Exam: NORMAL BREATHING PATTERN - Cardiovascular Exam Cardiovascular Exam: REGULAR RHYTHM - GI/Abdominal Exam GI & Abdominal Exam: Normal Bowel Sounds Assessment and Plan - Assessment and Plan (Free Text) Assessment: Deconditioning OOB PT Recurrent Pleural effusion etioliogy CHF diastolic / Pneumonia IR thoracentesis done Scrap Carrier notes appreciated Repeat CT scan one month S/P Acute Respiratory Failure Multi lobar pneumonia ( PNA ? CAP? ) Hx COPD COSA Smoker Pulmonary ID ABX antifungal Hx CHF Afib S/P TAVR LV fxn good Cardiology rate controlled anticoagulation Hx ANTHONY/ CKD Metabolic alkalosis improved Nephrology Cellulitis RLE improved ABX Chronic ETOH ?? HX Abdominal distention improved Colonic ileus ( recurrent ) + FOBT ?? [place] held etiol ?? 2 to L-S surgery pyridostigmine Hx LLE edema cellulitis ?? ecchymosis?? Endovascular consult ??? CT scan done no significant findings Hx Hyperkalemia 2 to Bactrim?? Hold NAMRATA Hx Hypokalemia Hyperkalemia HTN Prediabetes Hx Low back surgery (Severe Spinal Stenosis) Post operative illeus
[2018-08-08] MEDS: Enoxaparin 40 mg Syringe SC SCH (16:27)
[2018-08-08 16:52] LABS: HEMOGLOBIN 11.2 g/dL (12.0-18.0); MEAN CELL VOLUME 90.4 fl (80.0-94.0); MEAN CORPUSCULAR HEMOGLOBIN 28.6 pg (27.0-31.0); MEAN CORPUSCULAR HGB CONC 31.7 g/dL (33.0-37.0); RBC 3.9 Mil/uL (4.40-5.90); RED CELL DISTRIBUTION WIDTH 18.8 % (11.5-14.5); WHITE BLOOD COUNT 8.6 K/uL (4.8-10.8)
[2018-08-08 17:02] LABS: ALB/GLOB RATIO 1.2 (1.0-2.1); ALBUMIN 3.8 g/dL (3.5-5.0); ALT/SGPT 54 U/L (21-72); AST/SGOT 48 U/L (17-59); BLOOD UREA NITROGEN 24 mg/dl (9-20); CALCIUM 8.7 mg/dL (8.4-10.2); GFR NON-AFRICAN AMERICAN 52
[2018-08-09] MEDS: Proshield Plus GEL TOP SCH ×3 (02:31→16:33)
[2018-08-09 10:30] VITALS: O2SAT 95
--- NOTE | 2018-08-09 10:34 | CP.PCM.PN ---
Subjective - Date & Time of Evaluation Date of Evaluation: 08/09/18 Time of Evaluation: 10:32 - Subjective Subjective: Has done well on the present regimen. Participates with physical therapy. Breathes comfortably, well oxygenated. No apparent re-accumulation of pleural fluid. Scheduled for discharge tomorrow. Continue present medical regimen. Duoneb neb treatments have ; re-ordered QID. Prescription for nebulizer given to nursing. Will require continued use of albuterol/ipratropium for COPD. Objective - Vital Signs/Intake and Output Vital Signs (last 24 hours): Temp Pulse Resp BP Pulse Ox 98.2 F 80 20 115/75 95 08/09/18 08:40 08/09/18 08:40 08/09/18 08:40 08/09/18 09:00 08/09/18 08:40 - Medications Medications: Current Medications Acetaminophen (Tylenol 650mg/20.3ml Solution Ud) 650 mg NG Q6 PRN PRN Reason: Fever>100.4F Aspirin (Ecotrin) 81 mg PO DAILY [facility] Last Admin: 08/09/18 09:00 Dose: 81 mg Atorvastatin Calcium (Lipitor) 20 mg PO HS [facility] Last Admin: 08/08/18 22:00 Dose: 20 mg Dimethicone (Proshield Plus Skin Protectant) 1 applic TOP Q8 [facility] Last Admin: 08/09/18 09:08 Dose: 1 applic Docusate Sodium (Colace) 100 mg PO BID [facility] Last Admin: 08/09/18 08:59 Dose: 100 mg Enoxaparin Sodium (Lovenox) 40 mg SC DAILY@1600 [facility]; Protocol Last Admin: 08/08/18 16:27 Dose: 40 mg Folic Acid (Folic Acid) 1 mg NG DAILY [facility] Last Admin: 08/09/18 08:59 Dose: 1 mg Furosemide (Lasix) 40 mg PO BID [facility] Last Admin: 08/09/18 09:00 Dose: 40 mg Lactic Acid (Lac-Hydrin 12% Lotion (225 G)) 1 applic TOP TID [facility] Last Admin: 08/09/18 09:08 Dose: 1 applic Pyridostigmine [place] (Mestinon Tab) 30 mg PO TID [facility] Last Admin: 08/09/18 08:59 Dose: 30 mg Spironolactone (Aldactone) 25 mg PO DAILY [facility] Last Admin: 08/09/18 09:00 Dose: 25 mg Thiamine HCl (Vitamin B1 Tab) 100 mg NG DAILY [facility] Last Admin: 08/09/18 08:59 Dose: 100 mg - Labs Labs: 08/08/18 16:30 08/08/18 16:30 Assessment and Plan (1) COPD (chronic obstructive pulmonary disease) Status: Chronic (2) Pleural effusion, left Status: Resolved (3) Pneumonia Status: Resolved (4) Respiratory failure with hypoxia and hypercapnia Status: Resolved
--- NOTE | 2018-08-09 11:02 | CP.PCM.PN ---
Subjective - Date & Time of Evaluation Date of Evaluation: 08/09/18 Time of Evaluation: 11:01 - Subjective Subjective: Patient is stable clinically reported vital signs stable. Objective - Vital Signs/Intake and Output Vital Signs (last 24 hours): Temp Pulse Resp BP Pulse Ox 98.2 F 80 20 115/75 95 08/09/18 08:40 08/09/18 08:40 08/09/18 08:40 08/09/18 09:00 08/09/18 08:40 - Medications Medications: Current Medications Acetaminophen (Tylenol 650mg/20.3ml Solution Ud) 650 mg NG Q6 PRN PRN Reason: Fever>100.4F Albuterol/Ipratropium (Duoneb 3 Mg/0.5 Mg (3 Ml) Ud) 3 ml INH RQID [facility] Aspirin (Ecotrin) 81 mg PO DAILY [facility] Last Admin: 08/09/18 09:00 Dose: 81 mg Atorvastatin Calcium (Lipitor) 20 mg PO HS [facility] Last Admin: 08/08/18 22:00 Dose: 20 mg Dimethicone (Proshield Plus Skin Protectant) 1 applic TOP Q8 [facility] Last Admin: 08/09/18 09:08 Dose: 1 applic Docusate Sodium (Colace) 100 mg PO BID [facility] Last Admin: 08/09/18 08:59 Dose: 100 mg Enoxaparin Sodium (Lovenox) 40 mg SC DAILY@1600 [facility]; Protocol Last Admin: 08/08/18 16:27 Dose: 40 mg Folic Acid (Folic Acid) 1 mg NG DAILY [facility] Last Admin: 08/09/18 08:59 Dose: 1 mg Furosemide (Lasix) 40 mg PO BID [facility] Last Admin: 08/09/18 09:00 Dose: 40 mg Lactic Acid (Lac-Hydrin 12% Lotion (225 G)) 1 applic TOP TID [facility] Last Admin: 08/09/18 09:08 Dose: 1 applic Pyridostigmine [place] (Mestinon Tab) 30 mg PO TID [facility] Last Admin: 08/09/18 08:59 Dose: 30 mg Spironolactone (Aldactone) 25 mg PO DAILY [facility] Last Admin: 08/09/18 09:00 Dose: 25 mg Thiamine HCl (Vitamin B1 Tab) 100 mg NG DAILY [facility] Last Admin: 08/09/18 08:59 Dose: 100 mg - Labs Labs: 08/08/18 16:30 08/08/18 16:30 - Constitutional Appears: No Acute Distress - Eye Exam Eye Exam: Conjunctival injection - ENT Exam ENT Exam: Mucous Membranes Moist - Respiratory Exam Respiratory Exam: NORMAL BREATHING PATTERN. absent: Chest Wall Tenderness - Cardiovascular Exam Cardiovascular Exam: absent: Gallop, Rubs - GI/Abdominal Exam GI & Abdominal Exam: Soft, Normal Bowel Sounds - Extremities Exam Extremities Exam: absent: Calf Tenderness - Back Exam Back Exam: absent: CVA tenderness (L), CVA tenderness (R) - Neurological Exam Neurological Exam: Alert - Skin Skin Exam: absent: Cyanosis Assessment and Plan - Assessment and Plan (Free Text) Assessment: S/P acute respi failure PNA, S/P ANTHONY recovered HTN, COPD CHF s/p TAVR Pleural effusion appeared to be subsided and improving Recommendation Alkalemia corrected Patient receiving diuretics and antibiotics CO2 stable no need for Diamox at this point
[2018-08-09] MEDS: Albuterol-Ipratrop 3 mg / 0.5 (3 ml) UD INH SCH ×3 (15:07→19:07)
[2018-08-09] MEDS: Enoxaparin 40 mg Syringe SC SCH (16:32)
--- NOTE | 2018-08-09 21:09 | CP.PCM.PN ---
Subjective - Date & Time of Evaluation Date of Evaluation: 08/09/18 Time of Evaluation: 22:22 - Subjective Subjective: Doing well Objective - Vital Signs/Intake and Output Vital Signs (last 24 hours): Temp Pulse Resp BP Pulse Ox 98.2 F 80 20 123/69 95 08/09/18 08:40 08/09/18 08:40 08/09/18 08:40 08/09/18 16:31 08/09/18 08:40 - Medications Medications: Current Medications Acetaminophen (Tylenol 650mg/20.3ml Solution Ud) 650 mg NG Q6 PRN PRN Reason: Fever>100.4F Albuterol/Ipratropium (Duoneb 3 Mg/0.5 Mg (3 Ml) Ud) 3 ml INH RQID [facility] Last Admin: 08/09/18 19:07 Dose: 3 ml Aspirin (Ecotrin) 81 mg PO DAILY [facility] Last Admin: 08/09/18 09:00 Dose: 81 mg Atorvastatin Calcium (Lipitor) 20 mg PO HS [facility] Last Admin: 08/08/18 22:00 Dose: 20 mg Dimethicone (Proshield Plus Skin Protectant) 1 applic TOP Q8 [facility] Last Admin: 08/09/18 16:33 Dose: 1 applic Docusate Sodium (Colace) 100 mg PO BID [facility] Last Admin: 08/09/18 16:32 Dose: 100 mg Enoxaparin Sodium (Lovenox) 40 mg SC DAILY@1600 [facility]; Protocol Last Admin: 08/09/18 16:32 Dose: 40 mg Folic Acid (Folic Acid) 1 mg NG DAILY [facility] Last Admin: 08/09/18 08:59 Dose: 1 mg Furosemide (Lasix) 40 mg PO BID [facility] Last Admin: 08/09/18 16:31 Dose: 40 mg Lactic Acid (Lac-Hydrin 12% Lotion (225 G)) 1 applic TOP TID [facility] Last Admin: 08/09/18 16:31 Dose: 1 applic Pyridostigmine [place] (Mestinon Tab) 30 mg PO TID [facility] Last Admin: 08/09/18 16:33 Dose: 30 mg Spironolactone (Aldactone) 25 mg PO DAILY [facility] Last Admin: 08/09/18 09:00 Dose: 25 mg Thiamine HCl (Vitamin B1 Tab) 100 mg NG DAILY [facility] Last Admin: 08/09/18 08:59 Dose: 100 mg - Labs Labs: 08/08/18 16:30 08/08/18 16:30 - Respiratory Exam Respiratory Exam: NORMAL BREATHING PATTERN - Cardiovascular Exam Cardiovascular Exam: REGULAR RHYTHM - GI/Abdominal Exam GI & Abdominal Exam: Normal Bowel Sounds Assessment and Plan - Assessment and Plan (Free Text) Assessment: Deconditioning OOB PT Recurrent Pleural effusion etioliogy CHF diastolic / Pneumonia IR thoracentesis done 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 CAP? ) Hx COPD [facility]A Smoker Pulmonary ID ABX antifungal Hx CHF Afib S/P TAVR LV fxn good Cardiology rate controlled anticoagulation Hx ANTHONY/ CKD Metabolic alkalosis improved Nephrology Cellulitis RLE improved ABX Chronic ETOH ?? HX Abdominal distention improved Colonic ileus ( recurrent ) + FOBT ?? [place] held etiol ?? 2 to L-S surgery pyridostigmine Hx LLE edema cellulitis ?? ecchymosis?? Endovascular consult ??? CT scan done no significant findings Hx Hyperkalemia 2 to Bactrim?? Hold NAMRATA Hx Hypokalemia Hyperkalemia HTN Prediabetes Hx Low back surgery (Severe Spinal Stenosis) Post operative illeus
[2018-08-10] MEDS: Proshield Plus GEL TOP SCH ×2 (01:55→08:51)
[2018-08-10] MEDS: Albuterol-Ipratrop 3 mg / 0.5 (3 ml) UD INH SCH ×2 (07:14→11:33)
[2018-08-10 08:55] VITALS: BP 118/73
[2018-08-10 09:55] VITALS: PULSE 70; RESP 18; TEMP 98.1
--- NOTE | 2018-08-10 09:57 | CP.PCM.PN ---
Subjective - Date & Time of Evaluation Date of Evaluation: 08/10/18 Time of Evaluation: 09:53 - Subjective Subjective: Appears comfortable. Participates with PT w/o problem. No complaints of cough or SOB. Vital signs remain stable. No dependant edema or cyanosis. Breath sounds diminished bilaterally, but heard equally in the bases. No audible wheezes or rhonchi, rare dry basal rales. For discharge to home today. Has prescription for CT chest w/o contrast in August. Has prescription for nebulizer with Duoneb QID. Has home O2 for sleep related hypoxemia. Objective - Vital Signs/Intake and Output Vital Signs (last 24 hours): Temp Pulse Resp BP Pulse Ox 98 F 72 20 118/73 95 08/09/18 22:00 08/09/18 22:00 08/09/18 22:00 08/10/18 08:52 08/09/18 22:00 - Medications Medications: Current Medications Acetaminophen (Tylenol 650mg/20.3ml Solution Ud) 650 mg NG Q6 PRN PRN Reason: Fever>100.4F Albuterol/Ipratropium (Duoneb 3 Mg/0.5 Mg (3 Ml) Ud) 3 ml INH RQID [facility] Last Admin: 08/10/18 07:14 Dose: 3 ml Aspirin (Ecotrin) 81 mg PO DAILY [facility] Last Admin: 08/10/18 08:52 Dose: 81 mg Atorvastatin Calcium (Lipitor) 20 mg PO HS [facility] Last Admin: 08/09/18 21:24 Dose: 20 mg Dimethicone (Proshield Plus Skin Protectant) 1 applic TOP Q8 [facility] Last Admin: 08/10/18 08:51 Dose: 1 applic Docusate Sodium (Colace) 100 mg PO BID [facility] Last Admin: 08/10/18 08:52 Dose: 100 mg Enoxaparin Sodium (Lovenox) 40 mg SC DAILY@1600 [facility]; Protocol Last Admin: 08/09/18 16:32 Dose: 40 mg Folic Acid (Folic Acid) 1 mg NG DAILY [facility] Last Admin: 08/10/18 08:52 Dose: 1 mg Furosemide (Lasix) 40 mg PO BID [facility] Last Admin: 08/10/18 08:52 Dose: 40 mg Lactic Acid (Lac-Hydrin 12% Lotion (225 G)) 1 applic TOP TID [facility] Last Admin: 08/10/18 08:51 Dose: 1 applic Pyridostigmine [place] (Mestinon Tab) 30 mg PO TID [facility] Last Admin: 08/10/18 08:51 Dose: 30 mg Spironolactone (Aldactone) 25 mg PO DAILY [facility] Last Admin: 08/09/18 09:00 Dose: 25 mg Thiamine HCl (Vitamin B1 Tab) 100 mg NG DAILY [facility] Last Admin: 08/10/18 08:53 Dose: 100 mg - Labs Labs: 08/08/18 16:30 08/08/18 16:30 Assessment and Plan (1) COPD (chronic obstructive pulmonary disease) Status: Chronic (2) Pleural effusion, left Status: Resolved (3) Pneumonia Status: Resolved (4) Respiratory failure with hypoxia and hypercapnia Status: Resolved
--- NOTE | 2018-08-10 20:39 | CP.PCM.PN ---
Subjective - Date & Time of Evaluation Date of Evaluation: 08/10/18 Time of Evaluation: 22:22 - Subjective Subjective: Above Pulmonary note appreciated Extended discussion with staff and pharmacy Objective - Vital Signs/Intake and Output Vital Signs (last 24 hours): Temp Pulse Resp BP Pulse Ox 98.1 F 70 18 118/73 95 08/10/18 07:45 08/10/18 07:45 08/10/18 07:45 08/10/18 08:52 08/10/18 07:45 - Labs Labs: 08/08/18 16:30 08/08/18 16:30 - Respiratory Exam Respiratory Exam: NORMAL BREATHING PATTERN - Cardiovascular Exam Cardiovascular Exam: REGULAR RHYTHM - GI/Abdominal Exam GI & Abdominal Exam: Normal Bowel Sounds Assessment and Plan - Assessment and Plan (Free Text) Assessment: Deconditioning OOB PT Recurrent Pleural effusion etioliogy CHF diastolic / Pneumonia IR thoracentesis done 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 CAP? ) Hx COPD [facility]A Smoker Pulmonary ID ABX antifungal Hx CHF Afib S/P TAVR LV fxn good Cardiology rate controlled anticoagulation Hx ANTHONY/ CKD Metabolic alkalosis improved Nephrology Cellulitis RLE improved ABX Chronic ETOH ?? HX Abdominal distention improved Colonic ileus ( recurrent ) + FOBT ?? [place] held etiol ?? 2 to L-S surgery pyridostigmine Hx LLE edema cellulitis ?? ecchymosis?? Endovascular consult ??? CT scan done no significant findings Hx Hyperkalemia 2 to Bactrim?? Hold NAMRATA Hx Hypokalemia Hyperkalemia HTN Prediabetes Hx Low back surgery (Severe Spinal Stenosis) Post operative illeus
== END 2018-08-10 13:50 | disposition home health service (06) | DRG 291 ==
LOC: H.TCU 14:08
PROVIDERS: ADMIT Family Medicine Geriatric Medicine; ATTEND Family Medicine Geriatric Medicine
PROC: F07Z9FZ Gait Training/Functional Ambulation Treatment using Assistive, Adaptive, Supportive or Protective Equipment (ICD-10-PCS; principal; 2018-07-30)
PROC: 3E0F7GC Introduction of Other Therapeutic Substance into Respiratory Tract, Via Natural or Artificial Opening (ICD-10-PCS; 2018-07-30)
PROC: F08Z4FZ Home Management Treatment using Assistive, Adaptive, Supportive or Protective Equipment (ICD-10-PCS; 2018-07-31)
PROC: F07M6FZ Therapeutic Exercise Treatment of Musculoskeletal System - Whole Body using Assistive, Adaptive, Supportive or Protective Equipment (ICD-10-PCS; 2018-07-31)
DX: I11.0 Hypertensive heart disease with heart failure (principal); J18.1 Lobar pneumonia, unspecified organism; J44.0 Chronic obstructive pulmonary disease with (acute) lower respiratory infection; E87.3 Alkalosis; L03.115 Cellulitis of right lower limb; K56.7 Ileus, unspecified; I50.32 Chronic diastolic (congestive) heart failure; G47.34 Idiopathic sleep related nonobstructive alveolar hypoventilation; I48.2 Chronic atrial fibrillation; I27.20 Pulmonary hypertension, unspecified; E78.5 Hyperlipidemia, unspecified; E78.00 Pure hypercholesterolemia, unspecified; D64.9 Anemia, unspecified; R26.81 Unsteadiness on feet; M48.00 Spinal stenosis, site unspecified; R73.03 Prediabetes; Z95.2 Presence of prosthetic heart valve; Z99.81 Dependence on supplemental oxygen; Z87.891 Personal history of nicotine dependence